=== PATIENT | female | born 1975 | race Hispanic/Latino ===

== ENCOUNTER 2020-07-09 09:02 | Day surgery (SDC) | payer OTHER ==
[2020-07-08 11:19] LABS: BASOPHILS % (AUTO) 0.4 % (0.0-5.0); EOSINOPHILS % (AUTO) 2.1 % (0.0-8.0); HEMATOCRIT 35.8 % (36-48); LYMPHOCYTES % (AUTO) 46.5 % (21.0-51.0); MEAN CORPUSCULAR HEMOGLOBIN 30.4 pg (27.0-33.0); MEAN CORPUSCULAR HGB CONC 34.4 g/dL (32.0-36.0); MEAN CORPUSCULAR VOLUME 88.4 fL (79-99); MONOCYTES % (AUTO) 7.9 % (3.0-13.0); NEUTROPHILS % (AUTO) 42.9 % (40.0-77.0); PLATELET COUNT (AUTO) 199 K/uL (130-400); RED BLOOD CELL COUNT(AUTO) 4.05 MIL/uL (4.00-5.50); RED CELL DISTRIBUTION WIDTH 11.4 % (11.0-15.5); WHITE BLOOD COUNT (AUTO) 4.7 K/uL (4.8-10.8)
[2020-07-08 11:35] LABS: ALBUMIN 3.8 g/dL (3.5-5.0); BILIRUBIN,TOTAL 0.4 mg/dL (0.2-1.0); CREATININE 0.6 mg/dL (0.5-1.5); POTASSIUM 3.4 mmol/L (3.5-5.1); TOTAL PROTEIN, SERUM 8.5 g/dL (6.0-8.3)
[2020-07-09] VITALS (10 sets, daily range): BP systolic 102–128; BP diastolic 52–79
[~2020-07-09] VITALS: Ht 167.6 cm; Wt 96.2 kg
[2020-07-09] MEDS: CEFAZOLIN SODIUM 1 GM VIAL IVP SCH ×2 (06:00→10:50)
[~2020-07-09 09:02] MED LIST: ACET-2743 PO; LORA10TA7 PO; PSEU-225 PO; SODIUM CHLORIDE 0.9% 1000ML 1,000 ML IV SCH
[2020-07-09] MEDS ORDERED: LACTATED RINGERS 1000ML 1,000 ML IV ONE (09:51)
[2020-07-09] MEDS ORDERED: ROPIVACAINE 0.5% 5MG/ML 30ML IJ ONE (10:27)
[2020-07-09] MEDS ORDERED: MIDAZOLAM HCL 1 MG/ML 5ML VIAL ONE (10:28)
[2020-07-09] MEDS ORDERED: PROPOFOL 10 MG/ML 20ML VIAL IV ONE (10:51)
[2020-07-09] MEDS ORDERED: FENTANYL CITRATE PF 50 MCG/1 ML 2ML VIAL ONE (10:57)
[2020-07-09] MEDS ORDERED: LIDOCAINE HCL 1% MDV 50ML VIAL ONE (11:09)
== END 2020-07-09 12:45 | disposition home or self-care (01) ==
LOC: DAH 09:02
PROVIDERS: ATTEND Orthopaedic Surgery
DX: M67.472 Ganglion, left ankle and foot (principal); E66.9 Obesity, unspecified; Z20.828 Contact with and (suspected) exposure to other viral communicable diseases; Z68.33 Body mass index [BMI] 33.0-33.9, adult
CPT/HCPCS: 28090; 36415; 64445; 76942; 80053; 85025; 87070; 87076; 87426; A4215; A4221; A4222; A4223; A4452; A4649; A4663; A4930; A6223; A6260; J0690; J2250; J2704; J2795; J3010; J3490; J7120 ×2; U0003

== ENCOUNTER → 2022-05-17 | Outpatient (CLI) | payer OTHER ==
[~2022-05-17] MED LIST changes: -SODIUM CHLORIDE 0.9% 1000ML 1,000 ML IV SCH
== END | disposition home or self-care (01) ==
LOC: RAH 09:09
PROVIDERS: ATTEND Obstetrics & Gynecology
DX: N63.11 Unspecified lump in the right breast, upper outer quadrant (principal); R92.8 Other abnormal and inconclusive findings on diagnostic imaging of breast
CPT/HCPCS: 76641; 77065

== ENCOUNTER 2024-05-21 13:12 | Emergency (ER) | payer SELFPAY ==
[~2024-05-21] VITALS: Ht 167.6 cm; Wt 90.3 kg
[2024-05-21 14:09] LABS: BASOPHILS # (AUTO) 0.01 K/uL (0.00-0.20); BASOPHILS % (AUTO) 0.1 % (0.0-5.0); EOSINOPHILS # (AUTO) 0.06 K/uL (0.00-0.70); EOSINOPHILS % (AUTO) 0.8 % (0.0-8.0); HEMATOCRIT 37.3 % (36-48); IMMATURE GRANULOCYTE ABSOLUTE 0.03 K/uL (0-1); LYMPHOCYTES # (AUTO) 1.3 K/uL (1.0-4.8); LYMPHOCYTES % (AUTO) 16.3 % (21.0-51.0); MEAN CORPUSCULAR HEMOGLOBIN 32.4 pg (27.0-33.0); MEAN CORPUSCULAR HGB CONC 34.9 g/dL (32.0-36.0); MONOCYTES # (AUTO) 0.6 K/uL (0.1-1.0); NEUTROPHILS # (AUTO) 5.7 K/uL (1.8-7.7); NEUTROPHILS % (AUTO) 74.4 % (40.0-77.0); PLATELET COUNT (AUTO) 282 K/uL (130-400); RED BLOOD CELL COUNT(AUTO) 4.01 MIL/uL (4.00-5.50); RED CELL DISTRIBUTION WIDTH 11.6 % (11.0-15.5); WHITE BLOOD COUNT (AUTO) 7.7 K/uL (4.8-10.8)
--- NOTE | 2024-05-21 14:22 | HMCIMG ---
CHEST 2VWS HISTORY: Shortness of breath COMPARISON: None FINDINGS: Frontal and lateral projections of the chest were obtained. Mild bilateral pulmonary infiltrates are seen in the left more than right. The heart is not enlarged. No evidence of aortic calcification is seen. Degenerative changes are seen of the thoracolumbar spine. IMPRESSION: 1. Mild bilateral pulmonary infiltrates with left more than right.
[2024-05-21 14:24] LABS: CREATININE 0.6 mg/dL (0.5-1.0); POTASSIUM 3.3 mmol/L (3.5-5.1)
--- NOTE | 2024-05-21 14:25 | ERN ---
ED Note History of Present Illness Stated Complaint: FEVER Chief Complaint: Shortness of Breath Dictation: This is a case of 49-year-old female with no significant past medical history who presented to the ER with the complaints of fever, shortness of breath, productive cough, mild headache since last week. Patient states that she visited urgent care last week with similar complaints and was diagnosed with bronchitis. She was discharged on methylprednisolone and albuterol nebulizer, which she has been using more frequently. Although they provide temporary relief, her symptoms have returned to baseline. She now reports additional complaints of dizziness, chest pain during inspiration, nausea. She also notes a history of COVID-19 in December. She denies cold, sore throat, difficulty in swallowing, palpitations, abdominal pain, vomiting, burning sensation when urination, constipation/diarrhea. Allergies: Coded Allergies: No Known Drug Allergies (Verified Allergy, Unknown, 02/23/17) Home Meds Active Scripts Albuterol Sulfate (Ventolin Hfa) 90 Mcg Hfa.aer.ad, 2 PUFF IH Q4HPRN PRN for WHEEZING for 30 Days, #18 GM 0 Refills Prov:NERISSA SWANSON MD 05/21/24 Famotidine (Pepcid) 20 Mg Tablet, 1 TAB PO BID for 8 Days, #16 TAB 0 Refills Prov:NERISSA SWANSON MD 05/21/24 Azithromycin (Azithromycin) 250 Mg Tablet, 1 TAB PO DAILY for 4 Days, #4 TAB 0 Refills 2 the first day followed by 1 for days 2-5 Prov:NERISSA SWANSON MD 05/21/24 Amoxicillin/Potassium Clav (Amox Tr-K Clv 500-125 mg Tab) 500 Mg-125 Mg Tablet, 1 TAB PO TID for 7 Days, #21 TAB 0 Refills Prov:NERISSA SWANSON MD 05/21/24 Reported Medications Pseudoephedrine HCl (Pseudoephedrine HCl) 60 Mg Tablet, 1 TAB PO DAILY, TAB 07/08/20 Acetaminophen (Tylenol Extra Strength) 500 Mg Tablet, 1000 MG PO BID PRN for PAIN LEVEL 1 TO 5, TAB 07/08/20 Loratadine (Claritin) 10 Mg Tab, 10 MG PO DAILY, TAB 07/08/20 Past Medical History Past Medical History: No Pertinent History Surgical History: Appendectomy Review of System Dictation CONSTITUTIONAL: Fever, chills, no weakness, no diaphoresis, no malaise. HEAD/FACE: No signs of trauma. EENT: No eye pain, no blurred vision, no tearing, no double vision, no ear pain, no ear discharge, no nose pain, no nasal congestion, no throat pain, no throat swelling, no mouth pain. RESPIRATORY: Productive cough, no orthopnea, SOB and wheezing, no stridor CARDIOVASCULAR: No chest pain, no edema, no palpitations, no syncope. GASTROINTESTINAL/ABDOMINAL: No abdominal pain, no constipation, no diarrhea, nausea, no vomiting. GENITOURINARY: No abnormal discharge, no dysuria, no frequent urination, no hematuria. No complaints of pain in the genitals. MUSCULOSKELETAL: No back pain, no gout, no joint pain, no joint swelling, no muscle pain, no muscle stiffness, no neck pain. INTEGUMENTARY: No change in color, no change in hair/nails, no dryness, no lesion, no lumps, no rash. NEUROLOGICAL/PSYCH: No anxiety, not depressed, no emotional problem, no headache, no numbness, no pre-existing deficit, no history of seizures, no tremors, no weakness. HEMATOLOGIC/LYMPHATIC: Not anemic, no history of blood clots, no apparent bleeding, no bruising, glands not swollen. All Systems Negative, Except as Noted. Initial Vital Sign VS Vital Signs Date Time Temp Pulse Resp B/P (MAP) Pulse Ox O2 Delivery O2 Flow Rate FiO2 05/21/24 13:37 99.7 105 22 133/85 90 Room Air 0 05/21/24 14:35 21 Physical Exam Dictation Physical Exam Dictation VITAL SIGNS: Reviewed. GENERAL APPEARANCE: Alert, oriented x3, no acute distress, obese. HEAD AND FACE: Non-traumatic. EYES: PERRL, pink conjunctivas, eyelid no trauma, anterior chamber clear. NOSE: No discharge, no bleeding. OROPHARYNX: Mouth normal, teeth no caries, tongue pink. Pharynx clear, no erythema. Tonsils no exudates, no abscesses noted. Mucous membrane moist. NECK: Supple, non-tender, no thyromegaly, no masses, no JVD, no bruits. BREAST: Deferred. CHEST: Mild chest wall tenderness, no crepitus, no paradoxical movement, no retractions. LUNGS: Bilateral crackles, well-ventilated, symmetric, no rales, wheezing, no rhonchi, no stridor HEART: Regular rate, regular rhythm, no murmur, no gallops. VASCULAR: No peripheral edema. ABDOMEN: Soft, positive bowel sounds, nondistended, no guarding, nontender, no rebound, no Lamb's sign, no hernias. RECTAL: Deferred. GENITAL: Deferred. NEUROLOGICAL: Normal speech, gross motor function intact, gross sensory function intact. MUSCULOSKELETAL: Neck nontender, full range of motion, back nontender, full range of motion. EXTREMITIES: Nontender, full range of motion. SKIN: Color pink, dry, no turgor, no rash, no lacerations, no abrasions, no contusions. LYMPHATICS: Deferred. Results (Laboratory/Radiology) Laboratory/Radiology Laboratory Tests Test 05/21/24 13:36 05/21/24 14:01 Influenza Type A Antigen Negative For Type A Influenza Type B Antigen Negative For Type B SARS-CoV-2 Antigen (Rapid) PRESUMPTIVE NEGATIVE White Blood Count 7.7 K/uL (4.8-10.8) Red Blood Count 4.01 MIL/uL (4.00-5.50) Hemoglobin 13.0 g/dL (12.0-16.0) Hematocrit 37.3 % (36-48) Mean Corpuscular Volume 93.0 fL (79-99) Mean Corpuscular Hemoglobin 32.4 pg (27.0-33.0) Mean Corpuscular Hemoglobin Concent 34.9 g/dL (32.0-36.0) Red Cell Distribution Width 11.6 % (11.0-15.5) Platelet Count 282 K/uL (130-400) Mean Platelet Volume 9.1 fL (7.5-10.5) Immature Granulocyte % (Auto) 0.4 % (0-1) Neutrophils (%) (Auto) 74.4 % (40.0-77.0) Lymphocytes (%) (Auto) 16.3 % (21.0-51.0) L Monocytes (%) (Auto) 8.0 % (3.0-13.0) Eosinophils (%) (Auto) 0.8 % (0.0-8.0) Basophils (%) (Auto) 0.1 % (0.0-5.0) Neutrophils # (Auto) 5.7 K/uL (1.8-7.7) Lymphocytes # (Auto) 1.3 K/uL (1.0-4.8) Monocytes # (Auto) 0.6 K/uL (0.1-1.0) Eosinophils # (Auto) 0.06 K/uL (0.00-0.70) Basophils # (Auto) 0.01 K/uL (0.00-0.20) Absolute Immature Granulocyte (auto 0.03 K/uL (0-1) Nucleated Red Blood Cells 0.0 % (0.0-0.19) D-Dimer Quantitative (PE/DVT) 529 ng/mL (0-500) *H Sodium Level 137 mmol/L (136-145) Potassium Level 3.3 mmol/L (3.5-5.1) L Chloride Level 99 mmol/L (101-111) L Carbon Dioxide Level 33 mmol/L (21-32) H Blood Urea Nitrogen 8 mg/dL (7-18) Creatinine 0.6 mg/dL (0.5-1.0) Glomerular Filtration Rate Calc 109 mL/min (>90) Random Glucose 124 mg/dL (70-105) H Total Calcium 8.9 mg/dL (8.5-10.1) Troponin I High Sensitivity 15 ng/L (4-50) EKG Comment: PROCEDURE: EKG - 12 LEAD EKG TRACING- TECHNICAL [facility] Test Date: 2024-05-21 Test Time: 14:45:26 Pat Name: RIO OSORIO Department: [facility] Room: 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 Mild bilateral pulmonary infiltrates are seen in the left more than right. The heart is not enlarged. No evidence of aortic calcification is seen. Degenerative changes are seen of the thoracolumbar spine. IMPRESSION: 1. Mild bilateral pulmonary infiltrates with left more than right. CT Scan Comment: ORDERING PHYSICIAN: JACOB PRUITT MD PROCEDURE: CHES PE - CT CHEST PE PROTOCOL WWO CONT CT CHEST PE PROTOCOL WWO CONT HISTORY: Elevated d-dimer COMPARISON: 02/22/2017 TECHNIQUE: CT angiography of the chest was performed. The study was performed using angiographic technique with maximum intensity projection reconstruction images. Patient was given 75 cc of Omnipaque through intravenous route. FINDINGS: No CT evidence of filling defect is seen to suggest pulmonary embolus. No CT evidence of aortic dissection is seen. There are bilateral pulmonary infiltrates predominantly involving left lung. Fatty changes of the liver are noted. Liver is enlarged measuring 20 cm. Postcholecystectomy changes are seen. No CT evidence of pleural effusion or pericardial effusion is seen. The heart is enlarged. No evidence of adrenal mass is seen. Degenerative changes of the spine are noted. IMPRESSION: 1. No CT evidence of acute pulmonary embolus is seen. Bilateral pulmonary infiltrates predominantly involving the left lungs. ED Course ED Course Orders Procedure Category Date Status Time Vital Signs Per CPOE 05/21/24 Transmitted Routine 13:34 Saline Lock Iv CPOE 05/21/24 Transmitted 13:34 Cbc With Differential LAB 05/21/24 Complete 13:34 Basic Metabolic Panel LAB 05/21/24 Complete 13:34 Covid19 (Sars Antigen LAB 05/21/24 Complete Rapid) 13:34 Influenza Type A & B, LAB 05/21/24 Complete Rapid 13:34 Chest 2vws RAD 05/21/24 Resulted 13:34 Troponin I High LAB 05/21/24 Complete Sensitivity 13:46 Ceftriaxone 1g Vial PHA 05/21/24 Complete (Rocephine 1g Inj) 14:30 Ipratropium/Albuterol PHA 05/21/24 Complete Neb (Duoneb) 14:30 D-Dimer LAB 05/21/24 Complete 14:06 Methylprednisolone PHA 05/21/24 Complete Succ 125mg (Solu-Medr 14:30 12 Lead Ekg Tracing- EKG 05/21/24 Complete Technical 14:25 Potassium Bicarb/Cit PHA 05/21/24 Complete Ac 25meq (K-Lyte Ta 15:00 Ct Chest Pe Protocol CT 05/21/24 Resulted Wwo Cont 15:48 Azithromycin PHA 05/21/24 Complete (Zithromax) 16:00 Iohexol (Omnipaque) PHA 05/21/24 Complete 16:02 Current Medications Medications (Trade) Dose Ordered Sig/Julita Route PRN Reason Start Time Stop Time Status Last Admin Dose Admin Albuterol (DUOneb) 1 UDVIAL ONCE ONCE IH 05/21/24 14:30 05/21/24 14:31 DC 05/21/24 14:31 Azithromycin (Zithromax) 500 mg ONCE ONCE PO 05/21/24 16:00 05/21/24 16:01 DC 05/21/24 16:43 Ceftriaxone Sodium (ROCEphine 1G INJ) 1 gm ONCE ONCE IVPB 05/21/24 14:30 05/21/24 14:31 DC 05/21/24 14:40 Iohexol (Omnipaque) 75 ml STK-MED ONCE IV 05/21/24 16:02 05/21/24 16:02 DC Methylprednisolone Sodium Succinate (Solu-medROL 125MG) 125 mg ONCE ONCE IVP 05/21/24 14:30 05/21/24 14:31 DC 05/21/24 14:40 Potassium Bicarbonate (K-Lyte Tablet Eff 25 Meq Tablet.eff) 25 meq ONCE ONCE PO 05/21/24 15:00 05/21/24 15:01 DC 05/21/24 15:30 Vital Signs Date Time Temp Pulse Resp B/P (MAP) Pulse Ox O2 Delivery O2 Flow Rate FiO2 05/21/24 16:30 98.1 106 20 122/68 94 Room Air* 0 21 05/21/24 15:30 99.0 95 20 116/63 94 Room Air* 0 21 05/21/24 14:35 95 20 118/75 100 Room Air* 0 21 05/21/24 14:31 104 18 05/21/24 13:37 99.7 105 22 133/85 90 Room Air 0 Medical Decision Making MDM MDM Potential differential diagnoses include: Bronchitis Influenza COVID Pneumonia Assessment: We will order CBC to rule any anemia, infections and to evaluate the overall health of the patient. CMP was ordered in order to assess various electrolytes, kidney function, liver function ,protein levels and blood glucose levels, chest x-ray, EKG. We will order Solu-Medrol 125 mg IV, DuoNeb for shortness of breath. I will re-evaluate the patient after treatment and diagnostic exams have returned to determine whether they require further testing, can be safely discharged home, or need admission for further treatment and evaluation. Given the social determinants of health affecting care, including literacy, access to medical care, prescription drug management, and [id number] drugs, I will ensure that treatment plans are tailored accordingly. Revaluation : Patient is alert awake and oriented. Hemodynamically stable., Her shortness of breath has significantly improved. Patient is given Rocephin 1 g IV and azithromycin 500 mg p.o. for pneumonia. Labs potassium 3.3, chloride 99, CO2 of 33, D-dimer elevated at 529. Chest x-ray resulted in mild bilateral pulmonary infiltrates more prominent on the left side. EKG resulted in sinus tachycardia. CT CHEST CP PROTOCOL RESULTED IN NO ACUTE FINDINGS. Disposition: Patient is being discharged home with oral prescription of amoxicillin 625 mg t.i.d. for 7 days, azithromycin 250 mg p.o. daily for 4 days, Pepcid 20 mg b.i.d. p.o. for 7 days, albuterol inhaler p.r.n. for wheezing Advised to Follow up with PCP within 2-3 days Complete the antibiotic course as directed Drink plenty of fluids especially water Practice deep breathing exercises to expand your lungs and improve oxygen flow Monitor for symptoms like increased shortness of breath or wheezing, high fever, persistent chest pain, coughing up blood, confusion and extreme fatigue and seek immediate medical attention in such scenario DX & DISP Disposition: Discharge Departure Impression: Primary Impression: Pneumonia Critical Time: 30 minutes Condition: Stable Scripts Albuterol Sulfate (Ventolin Hfa) 90 Mcg Hfa.aer.ad 2 PUFF IH Q4HPRN PRN for WHEEZING for 30 Days, #18 GM 0 Refills Prov: NERISSA SWANSON MD 05/21/24 Famotidine (Pepcid) 20 Mg Tablet 1 TAB PO BID for 8 Days, #16 TAB 0 Refills Prov: NERISSA SWANSON MD 05/21/24 Azithromycin (Azithromycin) 250 Mg Tablet 1 TAB PO DAILY for 4 Days, #4 TAB 0 Refills 2 the first day followed by 1 for days 2-5 Prov: NERISSA SWANSON MD 05/21/24 Amoxicillin/Potassium Clav (Amox Tr-K Clv 500-125 mg Tab) 500 Mg-125 Mg Tablet 1 TAB PO TID for 7 Days, #21 TAB 0 Refills Prov: NERISSA SWANSON MD 05/21/24 Referrals: JOSE ALMANZAR MD (PCP) ATTESTATION BY PHYSICIAN I have seen and examined the patient. I reviewed the documentation, medical decision making, and treatment plan as noted by the resident above. I agree with the findings and plan of care. JACOB PRUITT MD, PRIYANKA MD May 21, 2024 14:25
[2024-05-21 14:31] VITALS: PULSE 104; RESP 18
[2024-05-21] MEDS: IpraTROPium/alBUTERol SULFATE 3 ML SOLUTION IH ONE (14:31)
[2024-05-21 14:37] LABS: COVID19 (SARS ANTIGEN RAPID) PRESUMPTIVE NEGATIVE (NEGATIVE); INFLUENZA TYPE A Negative For Type A (NEGATIVE); INFLUENZA TYPE B Negative For Type B (NEGATIVE)
[2024-05-21] MEDS: Solu-medROL 125MG VIAL IVP ONE (14:40)
[2024-05-21] MEDS: cefTRIAXone 1G VIAL IVPB ONE (14:40)
--- NOTE | 2024-05-21 15:01 | EKG ---
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
[2024-05-21] MEDS ORDERED: AZIT250T9 PO (15:26)
[2024-05-21] MEDS ORDERED: AMOX1TAB15 PO (15:26)
[2024-05-21] MEDS: PoTASSium BIcarbonate/CIT AC 25 MEQ TABLET.EFF PO ONE (15:30)
[2024-05-21] MEDS ORDERED: FAMO-136 PO (15:56)
[2024-05-21] MEDS ORDERED: IOHEXOL-350 75 ML VIAL IV ONE (16:02)
--- NOTE | 2024-05-21 16:32 | HMCIMG ---
CT CHEST PE PROTOCOL WWO CONT HISTORY: Elevated d-dimer COMPARISON: 02/22/2017 TECHNIQUE: CT angiography of the chest was performed. The study was performed using angiographic technique with maximum intensity projection reconstruction images. Patient was given 75 cc of Omnipaque through intravenous route. FINDINGS: No CT evidence of filling defect is seen to suggest pulmonary embolus. No CT evidence of aortic dissection is seen. There are bilateral pulmonary infiltrates predominantly involving left lung. Fatty changes of the liver are noted. Liver is enlarged measuring 20 cm. Postcholecystectomy changes are seen. No CT evidence of pleural effusion or pericardial effusion is seen. The heart is enlarged. No evidence of adrenal mass is seen. Degenerative changes of the spine are noted. IMPRESSION: 1. No CT evidence of acute pulmonary embolus is seen. Bilateral pulmonary infiltrates predominantly involving the left lungs. CT was performed with one or more following dose reduction techniques: automated exposure control, adjustment of the mA and kv according to patient's size, or use of a iterative reconstruction technique.
[2024-05-21] MEDS: AZITHROMYCIN 250 MG TABLET PO ONE (16:43)
[2024-05-21] MEDS ORDERED: ALBU18HF7 IH (16:58)
[2024-05-21 17:20] VITALS: BP 116/64; PULSE 104; RESP 20; TEMP 97.9; O2SAT 93
== END 2024-05-21 17:20 | disposition home or self-care (01) ==
LOC: EDH 13:12
DX: J18.9 Pneumonia, unspecified organism (principal); Z90.49 Acquired absence of other specified parts of digestive tract; Z20.822 Contact with and (suspected) exposure to COVID-19
CPT/HCPCS: 99285; 96374; 71270; 71046; 96375; 87426; 84484; 80048; 85025; 85378; 87804 ×2; 36415; 93005; 94640; J2919; J0696; Q9967

== ENCOUNTER 2024-05-23 16:44 | Inpatient (IN) | payer BC ==
[~2024-05-23] VITALS: Ht 167.6 cm; Wt 112.5 kg
[~2024-05-23 16:44] MED LIST changes: +ALBU18HF7 IH; +AMOX1TAB15 PO; +AZIT250T9 PO; +FAMO-136 PO; +rocuRONium bROMide 10MG/1ML 5ML VL IV ONE
--- NOTE | 2024-05-23 17:03 | EKG ---
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1975 Requested By: SHANTEL VICTORIA Order Number: [id number] Reading MD: Beny Sebastian Measurements Intervals [place] Rate: 114 P: 47 GA: 175 QRS: -39 QRSD: 91 T: 53 QT: 319 QTc: 439 Interpretive Statements Sinus tachycardia Left ventricular hypertrophy left aqxis deviation Compared to ECG 05/21/2024 14:45:26 Left ventricular hypertrophy now present Left anterior fascicular block no longer present Incomplete right bundle-branch block no longer present Right bundle-branch block no longer present Electronically Signed On 05-27-2024 21:16:16 MARBLE COPER by Beny Sebastian Please click the below link to view image of tracing.
[2024-05-23 17:11] LABS: ABG BASE EXCESS -0.4 mmol/L (-2.0-3.0); ABG HCO3 21.5 mmol/L (21.0-28.0); ABG PCO2 28 mmHg (32-45); ABG PH 7.506 (7.350-7.450); CARBON MONOXIDE 0.8 % (0.5-1.5); DEVICE COMMENT RR MIKE; HHb 21.8; PO2, ARTERIAL BG < 45.0 mmHg (83.0-108.0); VENT MODE, BG RA (ROOM AIR)
[2024-05-23] MEDS: 0.9%NACL 1000ML 2,721 ML IV ONE (17:16)
[2024-05-23] MEDS: Solu-medROL 125MG VIAL IVP ONE (17:16)
[2024-05-23] MEDS: cefTRIAXone 1G VIAL IVPB ONE (17:25)
[2024-05-23] MEDS: IpraTROPium/alBUTERol SULFATE 3 ML SOLUTION IH ONE (17:30)
[2024-05-23 17:32] VITALS: PULSE 107; RESP 30; O2SAT 100
--- NOTE | 2024-05-23 17:33 | HMCIMG ---
PORTABLE CHEST RADIOGRAPH INDICATION: sob COMPARISON: 05/21/2024 CTA chest FINDINGS: Heart size is normal. The pulmonary vascularity and paul appear normal. Left lower lung greater than right lung base opacities in the right hemidiaphragm is elevated. No significant pleural effusion noted. No pneumothorax detected. IMPRESSION: Left lower lung pneumonia and minimal right lung base atelectasis.
--- NOTE | 2024-05-23 17:40 | ERN ---
General Chief Complaint: Shortness of Breath Stated Complaint: SOB Time Seen by MD: 16:46 Source: patient, family History of Present Illness Initial Comments PATIENT IS A 49-YEAR-OLD FEMALE COMING IN TO BE EVALUATED FOR SHORTNESS OF BREATH. PATIENT STATES THAT SHE WAS RECENTLY DIAGNOSED WITH A PNEUMONIA AND SHE HAS BEEN TAKING HER ANTIBIOTICS BUT STARTED FEELING WORSE TODAY STARTED TO COME IN TO BE EVALUATED SHE STATES THAT SHE HAS NOT BEEN ABLE TO WALK WITHOUT RUNNING OUT OF BREATH. Allergies: Coded Allergies: No Known Drug Allergies (Verified Allergy, Unknown, 02/23/17) Home Meds Active Scripts Albuterol Sulfate (Ventolin Hfa) 90 Mcg Hfa.aer.ad, 2 PUFF IH Q4HPRN PRN for WHEEZING for 30 Days, #18 GM 0 Refills Prov:NERISSA SWANSON MD 05/21/24 Famotidine (Pepcid) 20 Mg Tablet, 1 TAB PO BID for 8 Days, #16 TAB 0 Refills Prov:NERISSA SWANSON MD 05/21/24 Azithromycin (Azithromycin) 250 Mg Tablet, 1 TAB PO DAILY for 4 Days, #4 TAB 0 Refills 2 the first day followed by 1 for days 2-5 Prov:NERISSA SWANSON MD 05/21/24 Amoxicillin/Potassium Clav (Amox Tr-K Clv 500-125 mg Tab) 500 Mg-125 Mg Tablet, 1 TAB PO TID for 7 Days, #21 TAB 0 Refills Prov:NERISSA SWANSON MD 05/21/24 Reported Medications Pseudoephedrine HCl (Pseudoephedrine HCl) 60 Mg Tablet, 1 TAB PO DAILY, TAB 07/08/20 Acetaminophen (Tylenol Extra Strength) 500 Mg Tablet, 1000 MG PO BID PRN for PAIN LEVEL 1 TO 5, TAB 07/08/20 Loratadine (Claritin) 10 Mg Tab, 10 MG PO DAILY, TAB 07/08/20 Past Medical History Past Medical History: No Pertinent History Past Surgical History: Appendectomy ROS Dictation CONSTITUTIONAL: NO CHILLS, NO FEVER, NO WEAKNESS, NO DIAPHORESIS, NO MALAISE. HEAD/FACE: NO SIGNS OF TRAUMA. EENT: NO EYE PAIN, NO BLURRED VISION, NO TEARING, NO DOUBLE VISION, NO EAR PAIN, NO EAR DISCHARGE, NO NOSE PAIN, NO NASAL CONGESTION, NO THROAT PAIN, NO THROAT SWELLING, NO MOUTH PAIN. RESPIRATORY: NO COUGH, ORTHOPNEA, SOB, NO STRIDOR, NO WHEEZING. CARDIOVASCULAR: NO CHEST PAIN, NO EDEMA, NO PALPITATIONS, NO SYNCOPE. GASTROINTESTINAL/ABDOMINAL: NO ABDOMINAL PAIN, NO CONSTIPATION, NO DIARRHEA, NO NAUSEA, NO VOMITING. GENITOURINARY: NO ABNORMAL DISCHARGE, NO DYSURIA, NO FREQUENT URINATION, NO HEMATURIA. NO COMPLAINTS OF PAIN IN THE GENITALS. MUSCULOSKELETAL: NO BACK PAIN, NO GOUT, NO JOINT PAIN, NO JOINT SWELLING, NO MUSCLE PAIN, NO MUSCLE STIFFNESS, NO NECK PAIN. INTEGUMENTARY: NO CHANGE IN COLOR, NO CHANGE IN HAIR/NAILS, NO DRYNESS, NO LESION, NO LUMPS, NO RASH. NEUROLOGICAL/PSYCH: NO ANXIETY, NOT DEPRESSED, NO EMOTIONAL PROBLEM, NO HEADACHE, NO NUMBNESS, NO PRE-EXISTING DEFICIT, NO HISTORY OF SEIZURES, NO TREMORS, NO WEAKNESS. HEMATOLOGIC/LYMPHATIC: NOT ANEMIC, NO HISTORY OF BLOOD CLOTS, NO APPARENT BLEEDING, NO BRUISING, GLANDS NOT SWOLLEN. ALL SYSTEMS NEGATIVE, EXCEPT NOTED. Physical Exam Physical Exam Dictation VITAL SIGNS: REVIEWED. GENERAL APPEARANCE: ALERT, ORIENTED X3, NO ACUTE DISTRESS, OBESE. HEAD AND FACE: NON-TRAUMATIC. EYES: PERRL, PINK CONJUNCTIVAS, EYELID NO TRAUMA, ANTERIOR CHAMBER CLEAR. EARS: PINNAS INTACT AND NO SIGNS OF TRAUMA OR ERYTHEMA. EAR CANALS CLEAR AND NO DISCHARGE. TMS NO ERYTHEMA. NOSE: NO DISCHARGE, NO BLEEDING. OROPHARYNX: MOUTH NORMAL, TEETH NO CARIES, TONGUE PINK. PHARYNX CLEAR, NO ERYTHEMA. TONSILS NO EXUDATES, NO ABSCESSES NOTED. MUCOUS MEMBRANE MOIST. NECK: SUPPLE, NON-TENDER, NO THYROMEGALY, NO MASSES, NO JVD, NO BRUITS. BREAST: DEFERRED. CHEST: NO TENDERNESS, NO CREPITUS, NO PARADOXICAL MOVEMENT, RETRACTIONS. LUNGS: CLEAR, WELL-VENTILATED, SYMMETRIC, NO RALES, NO WHEEZING, NO RHONCHI, NO STRIDOR, GOOD BREATH SOUNDS BILATERALLY. HEART: REGULAR RATE, REGULAR RHYTHM, NO MURMUR, NO GALLOPS. VASCULAR: NO PERIPHERAL EDEMA. ABDOMEN: SOFT, POSITIVE BOWEL SOUNDS, NONDISTENDED, NO GUARDING, NONTENDER, NO REBOUND, NO MASSES NO HEPATOMEGALY, NO SPLENOMEGALY, NO IRVING'S SIGN, NO HERNIAS. RECTAL: DEFERRED. GENITAL: DEFERRED. NEUROLOGICAL: NORMAL SPEECH, GROSS MOTOR FUNCTION INTACT, GROSS SENSORY FUNCTION INTACT. MUSCULOSKELETAL: NECK NONTENDER, FULL RANGE OF MOTION, BACK NONTENDER, FULL RANGE OF MOTION. EXTREMITIES: NONTENDER, FULL RANGE OF MOTION. SKIN: COLOR PINK, DRY, NO TURGOR, NO RASH, NO LACERATIONS, NO ABRASIONS, NO CONTUSIONS. LYMPHATICS: DEFERRED. Results Laboratory and Microbiology Lab and Micro Result Laboratory Tests Test 05/23/24 17:08 05/23/24 17:09 White Blood Count 11.2 K/uL (4.8-10.8) H Red Blood Count 4.01 MIL/uL (4.00-5.50) Hemoglobin 13.1 g/dL (12.0-16.0) Hematocrit 37.3 % (36-48) Mean Corpuscular Volume 93.0 fL (79-99) Mean Corpuscular Hemoglobin 32.7 pg (27.0-33.0) Mean Corpuscular Hemoglobin Concent 35.1 g/dL (32.0-36.0) Red Cell Distribution Width 11.3 % (11.0-15.5) Platelet Count 313 K/uL (130-400) Mean Platelet Volume 9.4 fL (7.5-10.5) Immature Granulocyte % (Auto) 0.3 % (0-1) Neutrophils (%) (Auto) 81.1 % (40.0-77.0) H Lymphocytes (%) (Auto) 11.5 % (21.0-51.0) L Monocytes (%) (Auto) 6.9 % (3.0-13.0) Eosinophils (%) (Auto) 0.1 % (0.0-8.0) Basophils (%) (Auto) 0.1 % (0.0-5.0) Neutrophils # (Auto) 9.1 K/uL (1.8-7.7) H Lymphocytes # (Auto) 1.3 K/uL (1.0-4.8) Monocytes # (Auto) 0.8 K/uL (0.1-1.0) Eosinophils # (Auto) 0.01 K/uL (0.00-0.70) Basophils # (Auto) 0.01 K/uL (0.00-0.20) Absolute Immature Granulocyte (auto 0.03 K/uL (0-1) Nucleated Red Blood Cells 0.0 % (0.0-0.19) Sodium Level 130 mmol/L (136-145) L Potassium Level 3.5 mmol/L (3.5-5.1) Chloride Level 92 mmol/L (101-111) L Carbon Dioxide Level 28 mmol/L (21-32) Blood Urea Nitrogen 12 mg/dL (7-18) Creatinine 0.6 mg/dL (0.5-1.0) Glomerular Filtration Rate Calc 109 mL/min (>90) Random Glucose 119 mg/dL (70-105) H Lactic Acid Level 1.8 mmol/L (0.8-2.5) Total Calcium 8.8 mg/dL (8.5-10.1) Total Bilirubin 0.7 mg/dL (0.2-1.0) Direct Bilirubin 0.2 mg/dL (0.0-0.3) Aspartate Amino Transf (AST/SGOT) 49 U/L (10-37) H Alanine Aminotransferase (ALT/SGPT) 49 U/L (12-78) Alkaline Phosphatase 73 U/L (50-136) Total Creatine Kinase 25 U/L (21-232) Troponin I High Sensitivity 13 ng/L (4-50) B-Type Natriuretic Peptide 34 pg/mL (0-100) Total Protein 8.1 g/dL (6.0-8.3) Albumin 2.7 g/dL (3.5-5.0) L Blood Gas Specimen Type Arterial Arterial Blood pH 7.506 (7.350-7.450) Arterial Blood Partial Pressure CO2 28 mmHg (32-45) L Arterial Blood Partial Pressure O2 < 45.0 mmHg (83.0-108.0) Arterial Blood HCO3 21.5 mmol/L (21.0-28.0) Arterial Blood Oxygen Saturation 78.0 % (94.0-98.0) L Arterial Blood Base Excess -0.4 mmol/L (-2.0-3.0) Hemoglobin (Blood Gas) 12.9 g/dL (12.0-16.0) Sodium (Blood Gas) 129 MMOL/L (136-145) L Bedside Potassium (Blood Gas) 3.6 MMOL/L (3.4-4.5) Bedside Chloride (Blood Gas) 95 MMOL/L (98-107) L Bedside Glucose (Blood Gas) 113 MG/DL (65-95) H Bedside Ionized Calcium (Blood Gas) 1.14 MMOL/L (1.15-1.33) L Bedside Lactic Acid (Blood Gas) 0.83 MMOL/L (0.36-0.75) H Blood Gas Temperature 37.0 CELSIUS (35.5-37.0) Blood Gas Vent Mode RA (ROOM AIR) FiO2 21.0 % Blood Gas Specimen Comment RR ZURI Labs Reviewed?: Yes MDM MDM: DIFFERENTIAL DIAGNOSIS: RESPIRATORY DISTRESS, BILATERAL PNEUMONIA, FAILED OUTPATIENT THERAPY RATIONALE: TESTS CONSIDERED AND ORDERED SECONDARY TO SHARED DECISION MAKING INCLUDE: LABS, ECG AND RADIOLOGY PREVIOUS OUTSIDE RECORDS REVIEWED: OLD ER VISITS. RISK OF COMPLICATION AND/OR MORBIDITY OR MORTALITY OF PATIENT MANAGEMENT: NONE MEDICATIONS-PER MEDICATION RECONCILIATION NEED FOR HOSPITALIZATION: PATIENT DOES MEET CRITERIA FOR HOSPITALIZATION. NEED FOR EMERGENCY MAJOR/MINOR SURGERY: NO THERE ARE NO SOCIAL CONCERNS WITH THIS PATIENT. PRESCRIPTION DRUG MANAGEMENT PRESCRIPTIONS WILL INCLUDE SYMPTOMATIC CARE PATIENT'S PRIOR EXTERNAL MEDICAL RECORDS FROM OTHER ER VISITS WERE REVIEWED BY ME INDICATED. PRIOR TESTING AND RESULTS FROM PREVIOUS VISITS WERE REVIEWED. PRIOR TESTS WERE TAKEN INTO ACCOUNT WITH MEDICAL DECISION MAKING AND RESOURCE UTILIZATION, INDEPENDENT HISTORIAN/HISTORIANS WERE USED TO OBTAIN COMPLETE MEDICAL HISTORY. I INDEPENDENTLY INTERPRETED THE TEST THAT WERE PERFORMED, RESULTS WERE REVIEWED BY ME AND CONSIDERED FINDINGS ON RADIOLOGY IF ORDERED. MEDICAL MANAGEMENT AND EXAMINATION INTERPRETATION DISCUSSIONS WERE HAD BY ME WITH OTHER QUALIFIED HEALTHCARE PROFESSIONALS INDICATED FOR THE PATIENT'S CARE. PATIENT WILL BE ADMITTED UNDER THE CARE OF HOSPITALIST GROUP FOR ONGOING MANAGEMENT OF BILATERAL LUNG PNEUMONIA WITH RESPIRATORY DISTRESS. ED Course Orders Procedure Category Date Status Time Arterial Blood Gas + RT 05/23/24 Transmitted 16:51 Cbc With Differential LAB 05/23/24 Complete 16:51 12 Lead Ekg Tracing- EKG 05/23/24 Complete Technical 16:51 Troponin I High LAB 05/23/24 Complete Sensitivity 17:05 B-Type Natriuretic LAB 05/23/24 Complete Peptide 17:05 Chest 1vw RAD 05/23/24 Resulted 17:05 12 Lead Ekg Tracing- EKG 05/23/24 Logged Technical 17:05 Covid Rna Naat LAB 05/23/24 Logged 17:05 Influenza Type A & B, LAB 05/23/24 Logged Rapid 17:05 Blood Cult DENNIS 05/23/24 In Process 17:07 Urinalysis Profile LAB 05/23/24 Logged 17:07 Culture Urine DENNIS 05/23/24 Logged 17:07 0.9%Nacl 1000ml (Ns PHA 05/23/24 In Process 1000ml) 17:30 Creatine Kinase, Total LAB 05/23/24 Complete 17:07 Lactic Acid LAB 05/23/24 Complete 17:07 Basic Metabolic Panel LAB 05/23/24 Complete 17:07 Ipratropium/Albuterol PHA 05/23/24 Complete Neb (Duoneb) 17:30 Methylprednisolone PHA 05/23/24 Complete Succ 125mg (Solu-Medr 17:30 Arterial Blood Gas LAB 05/23/24 Complete Arterial + 17:09 Ceftriaxone 1g Vial PHA 05/23/24 Complete (Rocephine 1g Inj) 17:30 Azithromycin 500mg+Ns PHA 05/23/24 Complete 250ml (Azithromyci 17:17 Arterial Blood Gas RT 05/23/24 Transmitted 18:30 Hepatic Function Panel LAB 05/23/24 Complete 17:08 Current Medications Medications (Trade) Dose Ordered Sig/Julita Route PRN Reason Start Time Stop Time Status Last Admin Dose Admin Albuterol (DUOneb) 2 udvial ONCE ONCE IH 05/23/24 17:30 05/23/24 17:31 DC Azithromycin 250 ml @ 250 mls/hr Q24H STAT IVPB 05/23/24 17:17 05/23/24 18:16 DC 05/23/24 17:45 Ceftriaxone Sodium (ROCEphine 1G INJ) 1 gm ONCE ONCE IVPB 05/23/24 17:30 05/23/24 17:31 DC 05/23/24 17:25 Methylprednisolone Sodium Succinate (Solu-medROL 125MG) 125 mg ONCE ONCE IVP 05/23/24 17:30 05/23/24 17:31 DC 05/23/24 17:16 Sodium Chloride 2,721 ml @ 907 mls/hr ONCE ONCE IV 05/23/24 17:30 05/23/24 20:29 05/23/24 17:16 Vital Signs Date Time Temp Pulse Resp B/P (MAP) Pulse Ox O2 Delivery O2 Flow Rate FiO2 05/23/24 17:32 107 30 Non Rebreather/Partial 15.0 100 05/23/24 17:27 104 40 117/79 100 Non-Rebreather+ 15 40 05/23/24 17:07 87 39 119/69 87 Room Air* 0 21 05/23/24 16:46 99.9 115 18 135/80 70 Room Air Critical Care Note Comments CRITICAL CARE PROCEDURE NOTE AUTHORIZED AND PERFORMED BY: TOTAL CRITICAL CARE TIME: APPROXIMATELY 36 MINUTES DUE TO A HIGH PROBABILITY OF CLINICALLY SIGNIFICANT, LIFE THREATENING DETERIORATION, THE PATIENT REQUIRED MY HIGHEST LEVEL OF PREPAREDNESS TO INTERVENE EMERGENTLY AND I PERSONALLY SPENT THIS CRITICAL CARE TIME DIRECTLY AND PERSONALLY MANAGING THE PATIENT. THIS CRITICAL CARE TIME INCLUDED OBTAINING A HISTORY; EXAMINING THE PATIENT; PULSE OXIMETRY; ORDERING AND REVIEW OF STUDIES; ARRANGING URGENT TREATMENT WITH DEVELOPMENT OF A MANAGEMENT PLAN; EVALUATION OF PATIENT'S RESPONSE TO TREATMENT; FREQUENT REASSESSMENT; AND, DISCUSSIONS WITH OTHER PROVIDERS. THIS CRITICAL CARE TIME WAS PERFORMED TO ASSESS AND MANAGE THE HIGH PROBABILITY OF IMMINENT, LIFE-THREATENING DETERIORATION THAT COULD RESULT IN MULTI-ORGAN FAILURE. IT WAS EXCLUSIVE OF SEPARATELY BILLABLE PROCEDURES AND TREATING OTHER PATIENTS AND TEACHING TIME. PLEASE SEE MDM SECTION AND THE REST OF THE NOTE FOR FURTHER INFORMATION ON PATIENT ASSESSMENT AND TREATMENT. DX & DISP Disposition: Inpatient Decision to Admit Time: 18:24 Departure Impression: Primary Impression: Respiratory distress Additional Impression: Pneumonia of both lungs Condition: Stable Referrals: JOSE ALMANZAR MD (PCP) SHANTEL VICTORIA MD May 23, 2024 17:40
[2024-05-23 17:44] LABS: BASOPHILS # (AUTO) 0.01 K/uL (0.00-0.20); BASOPHILS % (AUTO) 0.1 % (0.0-5.0); EOSINOPHILS # (AUTO) 0.01 K/uL (0.00-0.70); EOSINOPHILS % (AUTO) 0.1 % (0.0-8.0); HEMATOCRIT 37.3 % (36-48); IMMATURE GRANULOCYTE ABSOLUTE 0.03 K/uL (0-1); LYMPHOCYTES # (AUTO) 1.3 K/uL (1.0-4.8); LYMPHOCYTES % (AUTO) 11.5 % (21.0-51.0); MEAN CORPUSCULAR HEMOGLOBIN 32.7 pg (27.0-33.0); MEAN CORPUSCULAR HGB CONC 35.1 g/dL (32.0-36.0); MONOCYTES # (AUTO) 0.8 K/uL (0.1-1.0); MONOCYTES % (AUTO) 6.9 % (3.0-13.0); NEUTROPHILS # (AUTO) 9.1 K/uL (1.8-7.7); NEUTROPHILS % (AUTO) 81.1 % (40.0-77.0); PLATELET COUNT (AUTO) 313 K/uL (130-400); RED BLOOD CELL COUNT(AUTO) 4.01 MIL/uL (4.00-5.50); RED CELL DISTRIBUTION WIDTH 11.3 % (11.0-15.5); WHITE BLOOD COUNT (AUTO) 11.2 K/uL (4.8-10.8)
[2024-05-23] MEDS: AZITHROMYCIN 500MG+NS 250ML 250 ML IVPB STA (17:45)
[2024-05-23 17:52] LABS: CREATININE 0.6 mg/dL (0.5-1.0); POTASSIUM 3.5 mmol/L (3.5-5.1)
[2024-05-23 18:03] LABS: ALBUMIN 2.7 g/dL (3.5-5.0); BILIRUBIN,DIRECT 0.2 mg/dL (0.0-0.3); BILIRUBIN,TOTAL 0.7 mg/dL (0.2-1.0); TOTAL PROTEIN, SERUM 8.1 g/dL (6.0-8.3)
[2024-05-23 18:58] LABS: SARS-CoV-2, RNA, NAAT NEGATIVE SARS CoV-2 (NEGATIVE)
[2024-05-23 19:04] LABS: INFLUENZA TYPE A Negative For Type A (NEGATIVE); INFLUENZA TYPE B Negative For Type B (NEGATIVE)
[2024-05-23 19:05] LABS: APPEARANCE,URINE CLEAR (CLEAR); BILIRUBIN,URINE NEGATIVE (NEGATIVE); COLOR,URINE COLORLESS (YELLOW); GLUCOSE, URINE (UA) NEGATIVE (NEGATIVE); KETONES,URINE NEGATIVE (NEGATIVE); LEUKOCYTE ESTERASE ,URINE 75 Leu/uL (NEGATIVE); NITRATE,URINE NEGATIVE (NEGATIVE); OCCULT BLOOD,URINE NEGATIVE (NEGATIVE); PH,URINE 6.5 (5.0-8.0); PROTEIN,URINE NEGATIVE (NEGATIVE); UROBILINOGEN,URINE 0.2 mg/dL (0.2-1.0)
[2024-05-23 19:07] LABS: ADD UA MICROSCOPIC YES
[2024-05-23 19:09] LABS: ABG BASE EXCESS -1.4 mmol/L (-2.0-3.0); ABG HCO3 20.8 mmol/L (21.0-28.0); ABG OXYGEN SATURATION 98.3 % (94.0-98.0); ABG PCO2 29 mmHg (32-45); ABG PH 7.477 (7.350-7.450); PO2, ARTERIAL BG 109.4 mmHg (83.0-108.0)
[2024-05-23 19:13] LABS: BACTERIA,URINE RARE /HPF (None Seen); RBC,URINE 0-1 /HPF (0-1); SQUAMOUS EPITHELIAL CELL,UR RARE /HPF (0-2)
[2024-05-23] MEDS ORDERED: acetaMINOPHEN 650 MG SUPPOSITORY RC PRN (20:30)
[2024-05-23] MEDS ORDERED: ondanSETRON 4MG INJ IV PRN (20:30)
--- NOTE | 2024-05-23 20:34 | HP ---
History of Present Illness Reason for Visit: Shortness of breaths History of Present Illness Ms. Abdullahi is a 49-year-old female that was seen and examined today on 05/23/2024. Patient is a good historian and personal health. Patient's son Dagoberto Salcido is at bedside. Patient states that she came to the emergency department with a chief complaint of shortness of breath. Onset was two weeks ago. Location is to lungs. Duration is on and off. Character is described as "easily running out of air." Initially shortness and breath was only aggravated with climbing one or two fl ights of stairs but symptoms have progressively worsened and patient becomes short of breath even standing or walking short distances. There was no alleviating factors however previously symptoms were being controlled with daily morning albuterol nebulizer treatments. Patient denies any associated chest pain or dizziness. Patient reports an episode of COVID in December 2023. Today in the emergency department CBC unremarkable, chemistry unremarkable, urinalysis unremarkable, influenza screen negative, COVID negative, blood gas shows PO2 less than 45. Chest x-ray shows left lower lung pneumonia and minimal right lung base atelectasis. Emergency room physician recommended that patient be admitted with a diagnosis of acute hypoxemic respiratory failure and p neumonia. Upon arrival to the emergency department patient was placed on a BiPAP due to respiratory distress. Past Medical History Patient History: Carcinomas BROTHER Diabetes mellitus BROTHER SISTER SISTER SISTER Hypertension BROTHER SISTER SISTER SISTER ADDITIONAL PAST MEDICAL HISTORY: [denies] SOCIAL HISTORY: [negative for smoking, alcohol use, or drug use] SURGICAL HISTORY: [appendectomy] Review of Systems General: No Fever, No Chills, No Night Sweats, No Fatigue, No Malaise, No Appetite, No Other HEENT: No Head Aches, No Visual Changes, No Eye Pain, No Ear Pain, No Dysphasia, No Sinus Congestion, No Post Nasal Drip, No Sore Throat, No Other Pulmonary: Dyspnea; No Cough, No Pleuritic Chest Pain, No Other Cardiovascular: No: Chest Pain, Palpitations, Orthopnea, Paroxysmal Noc. Dyspnea, Edema, Lt Headedness, Other Gastrointestinal: No: Nausea, Vomiting, Abdominal Pain, Diarrhea, Constipation, Melena, Hematochezia, Other Genitourinary: No Dysuria, No Frequency, No Incontinence, No Hematuria, No Retention, No Other Musculoskeletal: No: other, neck pain, shoulder pain, arm pain, back pain, hand pain, leg pain, foot pain Skin: No Urticaria, No Rash, No Other Neurological: No: Weakness, Numbness, Incoordination, Change in speech, Confusion, Seizures, Other Allergies: Coded Allergies: cisatracurium (Unverified Allergy, Severe, RASH, 06/23/24) RED FACIAL RASH/MID UPPER CHEST. No Known Drug Allergies (Verified Allergy, Unknown, 02/23/17) Scheduled Amoxicillin/Potassium Clav (Amox Tr-K Clv 500-125 mg Tab), 1 TAB PO TID Azithromycin (Azithromycin), 1 TAB PO DAILY Famotidine (Pepcid), 1 TAB PO BID Loratadine (Claritin), 10 MG PO DAILY, (Reported) Pseudoephedrine HCl (Pseudoephedrine HCl), 1 TAB PO DAILY, (Reported) Scheduled PRN Acetaminophen (Tylenol Extra Strength), 1,000 MG PO BID PRN for PAIN LEVEL 1 TO 5, (Reported) Albuterol Sulfate (Ventolin Hfa), 2 PUFF IH Q4HPRN PRN for WHEEZING D-Methorphan Hb/P-Epd HCl/Bpm (Ywhahcbulk-Mcmmxcjfpsi-Vh Syr), 10 ML PO Q8H PRN for allergies, (Reported) Exam Vital Signs Vital Signs Date Time Temp Pulse Resp B/P (MAP) Pulse Ox O2 Delivery O2 Flow Rate FiO2 05/23/24 19:25 98 40 108/61 100 Non-Rebreather+ 15.0 40 05/23/24 16:46 99.9 General Appearance: Alert, Oriented X3, Cooperative, moderate distress HEENT: Atraumatic, EOMI, Mucous membr. moist/pink Respiratory: Other (Bilateral rhonchi) Cardiovascular: Regular rate, Regular rhythm, Normal S1, Normal S2 Abdominal: Normal bowel sounds, Soft, No tenderness Extremities: No edema Skin: No significant lesion Neuro: Normal speech, Strength at 5/5 X4 ext, Sensation intact, Cranial nerves 3-12 NL Psych/Mental Status: Mental status NL, Mood NL, Thoughts/Content NL Assessment/Plan ASSESSMENT: [ Acute hypoxemic respiratory failure, POA Pneumonia, POA] PLAN: [ Admit patient to PCU as inpatient status. Place patient on telemetry monitoring. Continue BiPAP 10/5, 50% FiO2, rate 16 DuoNebs every 6 hours Patient received Solu-Medrol 125 mg IV times 1. Continue Solu-Medrol 40 mg IV every 8 hours. Respiratory culture, follow up with the results. Empiric antibiotic therapy with azithromycin and Rocephin. Supportive treatment with Tylenol. Keep patient NPO while on BiPAP. Okay for patient to take medications with small sips of water. GI prophylaxis, famotidine 20 mg IV once daily. DVT prophylaxis, Lovenox 40 mg subcutaneously once daily. ADVANCED CARE PLANNING 1. Which of the following were discussed? Hospice Care - Yes Therapeutic options - Yes Advance Directives - Yes- patient states she does not have any advance d irectives in place at this time, however her son Dagoberto can make decisions for her if she becomes unable. Other discussions - patient wishes to remain a full code at this time 2. Discussed with who? Patient 3. Voluntary nature of this service was explained to the patient? Yes 4. Amount of time spent - ____ 16 minutes ___ 5. Reviewed by Physician? (if this service was performed by NPP) Yes This document was generated in part using voice recognition software, occasional wrong word or sound alike substitutions may have occurred due to the inherent limitations of voice recognition software. Read the chart carefully and rec ognize using context, where the substitutions have occurred. Although every effort was made to edit the content, third rail installer and typing errors may occur ATTESTATION BY PHYSICIAN I have seen and examined the patient. I reviewed the documentation, medical decision making, and treatment plan as noted by the mid-level provider above. I agree with the findings and plan of care. FRED [facility] May 23, 2024 20:34
[2024-05-23 21:02] VITALS: PULSE 84; RESP 42; O2SAT 98
[2024-05-23] MEDS: ENOXAPARIN SODIUM 40 MG/0.4 ML SYRINGE SQ SCH (21:38)
[2024-05-23 23:19] VITALS: PULSE 90; RESP 42
[2024-05-23] MEDS: IpraTROPium/alBUTERol SULFATE 3 ML SOLUTION IH SCH (23:19)
[2024-05-23 23:27] VITALS: PULSE 85; RESP 43; O2SAT 98
[2024-05-24] VITALS (26 sets, daily range): BP systolic 102–126; BP diastolic 58–72; PULSE 63–105; RESP 18–73; TEMP 98.2–99.2; O2SAT 95–100
[2024-05-24] MEDS: Solu-medROL 40MG VIAL IVP SCH (00:55)
--- NOTE | 2024-05-24 03:20 | NUR ---
PT PUT BACK TO NRB AT 15LPM PER PT REQUEST.
[2024-05-24 07:24] LABS: BASOPHILS # (AUTO) 0.01 K/uL (0.00-0.20); BASOPHILS % (AUTO) 0.1 % (0.0-5.0); IMMATURE GRANULOCYTE ABSOLUTE 0.03 K/uL (0-1); LYMPHOCYTES # (AUTO) 0.6 K/uL (1.0-4.8); LYMPHOCYTES % (AUTO) 8.4 % (21.0-51.0); MEAN CORPUSCULAR HEMOGLOBIN 32.9 pg (27.0-33.0); MEAN CORPUSCULAR HGB CONC 34.7 g/dL (32.0-36.0); MEAN CORPUSCULAR VOLUME 94.7 fL (79-99); MONOCYTES # (AUTO) 0.3 K/uL (0.1-1.0); MONOCYTES % (AUTO) 3.5 % (3.0-13.0); NEUTROPHILS # (AUTO) 6.7 K/uL (1.8-7.7); NEUTROPHILS % (AUTO) 87.6 % (40.0-77.0); PLATELET COUNT (AUTO) 266 K/uL (130-400); RED BLOOD CELL COUNT(AUTO) 3.59 MIL/uL (4.00-5.50); RED CELL DISTRIBUTION WIDTH 11.4 % (11.0-15.5); WHITE BLOOD COUNT (AUTO) 7.6 K/uL (4.8-10.8)
[2024-05-24 07:39] LABS: CREATININE 0.5 mg/dL (0.5-1.0); MAGNESIUM 2.3 mg/dL (1.80-2.40); PHOSPHORUS 3.2 mg/dL (2.5-4.9); POTASSIUM 4.1 mmol/L (3.5-5.1)
[2024-05-24] MEDS: FAMOTIDINE 20MG VIAL IV SCH (08:34)
--- NOTE | 2024-05-24 10:52 | NUR ---
RECEIVED FROM ED VIA STRETCHER. VOICES NO COMPLAINTS OF PAIN OR OTHER DISCOMFORT.BIPAP IS CONTINUOUS AT THIS TIME
--- NOTE | 2024-05-24 12:15 | PN ---
[facility] PROGRESS NOTE Date of Service: May 24, 2024 Time of Service: 12:14 SUBJECTIVE: [ ] Ms. Abdullahi is a 49-year-old female that was seen and examined today on 05/23/2024. Patient is a good historian and personal health. Patient's son Dagoberto Salcido is at bedside. Patient states that she came to the emergency department with a chief complaint of shortness of breath. Onset was two weeks ago. Location is to lungs. Duration is on and off. Character is described as "easily running out of air." Initially shortness and breath was only aggravated with climbing one or two flights of stairs but symptoms have progressively worsened and patient becomes short of breath even standing or walking short distances. There was no alleviating factors however previously symptoms were being controlled with daily morning albuterol nebulizer treatments. Patient denies any associated chest pain or dizziness. Patient reports an episode of COVID in December 2023. emergency department CBC unremarkable, chemistry unremarkable, urinalysis unremarkable, influenza screen negative, COVID negative, blood gas shows PO2 less than 45. Chest x-ray shows left lower lung pneumonia and minimal right lung base atelectasis. Upon arrival to the emergency department patient was placed on a BiPAP due to respiratory distress. 05/24/2024-patient was seen and examined at the bedside, still on BiPAP. Patient is able to speak, and says she feels much better than before. Patient says after COVID in December she developed severe bronchitis and she was on Solu-Medrol and albuterol, which did not help her much and later she had high fevers and shortness of breath which is when she came to the ED.Vitals afebrile pulse 76, RR 38 tachypneic , blood pressure 115/68, pulse oxygen 99 on BiPAP flow of 60. On ABG pH 7.47, pCO2 29, PO2 109.4, oxygen saturation 98.3. [id number] potassium 4.1 BUN15 creatinine 0.5 GFR 114. We will closely monitor the patient. Head Up Operator Helper consult noted waiting on the recommendation REVIEW OF SYSTEMS CONSTITUTIONAL: Respiratory distress on BiPAP Denies fevers, chills, or night sweats. No unintentional weight loss reported. NEUROLOGICAL: Denies headache, amaurosis fugax, motor weakness, sensory deficit, vertigo/spinning sensation, gait abnormalities, or tremors. ENT: No hearing loss, otalgia, otorrhea, rhinitis, rhinorrhea, hoarseness, or sore throat. CARDIOVASCULAR: Denies any exertional angina, dyspnea on exertion, orthopnea, paroxysmal nocturnal dyspnea, palpitations, life-threatening arrhythmias, claudication. PULMONARY: Denies any shortness of breath, cough, phlegm/sputum, hemoptysis, pleuritic chest pain. SLEEP: Denies morning headaches, daytime somnolence or napping. Denies difficulty falling asleep, staying asleep, waking from sleep. Denies knowledge of snoring. GASTROINTESTINAL: Denies any type of dysphagia to either liquids or solids. Denies nausea, vomiting, pyrosis, early satiety, abdominal pain, diarrhea, constipation, or changes in stool consistency or caliber. Denies coffee-ground emesis, hematemesis, hematochezia, or melanotic stools. GENITOURINARY: Denies frequency, urgency, nocturia, hematuria or incontinence (Storage/Irritative symptoms.) Low urinary stream, straining to void, urinary intermittency or hesitancy, splitting of the voiding stream, terminal dribbling. ENDOCRINOLOGIC: Denies polyuria, polydipsia, polyphagia or heat/cold intolerances. HEMATOLOGIC: Denies thrombophilia/previous clots, or coagulopathy/bleeding disorders. ONCOLOGIC: Denies personal history of malignancy. DERMATOLOGIC: Denies rashes or pruritus. PSYCHIATRIC: Denies any suicidal or homicidal ideation. Denies hallucinations. PHYSICAL EXAM GENERAL APPEARANCE: The patient is awake, alert, and oriented, in no acute cardiopulmonary distress. NEUROLOGICAL: Cranial nerves II-XII grossly intact. Motor is 5/5 in bilateral upper and lower extremities proximal to distal. No sensory deficits. HEENT: Face is symmetric. Pupils are equal and reactive. Extraocular movements are intact. NECK: Supple. No JVD. No thyromegaly. No submental, submandibular, pre- /postauricular, occipital or supraclavicular lymphadenopathy. CHEST: Normal chest expansion. No Telemetry. LUNGS: Absence of any rales, rhonchi or any wheezing. CARDIOVASCULAR: Regular. S1 and S2 normal. No appreciable rubs, murmurs or gallops. ABDOMEN: Soft, nontender, and nondistended. There is no rebound, voluntary guarding, or rigidity. : Deferred. No Souza. EXTREMITIES: Non-edematous and not cyanotic. No clubbing. Good capillary refill. SKIN: No skin breakdown. Vital Signs (last 8hr) Date Time Temp Pulse Resp B/P (MAP) Pulse Ox O2 Delivery O2 Flow Rate FiO2 05/24/24 11:29 76 38 05/24/24 09:55 99.3 83 15 115/68 99 Bi-PAP+ 60 05/24/24 08:00 98.4 84 28 126/72 100 BIPAP 15.0 100 05/24/24 07:44 98.8 87 36 98/56 99 Bi-PAP+ 60 05/24/24 06:38 84 26 05/24/24 06:33 99 22 Non Rebreather 15.0 100 05/24/24 06:15 88 45 120/73 100 Non-Rebreather+ 15 N/A Bi-PAP+ LABS: Laboratory: Test 05/24/24 07:01 05/23/24 19:07 05/23/24 18:33 05/23/24 17:25 Range/Units White Blood Count 7.6 # 4.8-10.8 K/uL Red Blood Count 3.59 L 4.00-5.50 MIL/uL Hemoglobin 11.8 L 12.0-16.0 g/dL Hematocrit 34.0 L 36-48 % Mean Corpuscular Volume 94.7 79-99 fL Mean Corpuscular Hemoglobin 32.9 27.0-33.0 pg Mean Corpuscular Hemoglobin Concent 34.7 32.0-36.0 g/dL Red Cell Distribution Width 11.4 11.0-15.5 % Platelet Count 266 130-400 K/uL Mean Platelet Volume 9.5 7.5-10.5 fL Immature Granulocyte % (Auto) 0.4 0-1 % Neutrophils (%) (Auto) 87.6 H 40.0-77.0 % Lymphocytes (%) (Auto) 8.4 L 21.0-51.0 % Monocytes (%) (Auto) 3.5 3.0-13.0 % Eosinophils (%) (Auto) 0.0 0.0-8.0 % Basophils (%) (Auto) 0.1 0.0-5.0 % Neutrophils # (Auto) 6.7 1.8-7.7 K/uL Lymphocytes # (Auto) 0.6 L 1.0-4.8 K/uL Monocytes # (Auto) 0.3 0.1-1.0 K/uL Eosinophils # (Auto) 0.00 0.00-0.70 K/uL Basophils # (Auto) 0.01 0.00-0.20 K/uL Absolute Immature Granulocyte (auto 0.03 0-1 K/uL Nucleated Red Blood Cells 0.0 0.0-0.19 % White Cell Morphology Comment See comments Sodium Level 138 136-145 mmol/L Potassium Level 4.1 3.5-5.1 mmol/L Chloride Level 102 101-111 mmol/L Carbon Dioxide Level 27 21-32 mmol/L Blood Urea Nitrogen 15 7-18 mg/dL Creatinine 0.5 0.5-1.0 mg/dL Glomerular Filtration Rate Calc 114 >90 mL/min Random Glucose 139 H 70-105 mg/dL Total Calcium 8.8 8.5-10.1 mg/dL Phosphorus Level 3.2 2.5-4.9 mg/dL Magnesium Level 2.30 1.80-2.40 mg/dL Blood Gas Specimen Type Arterial Arterial Blood pH 7.477 H 7.350-7.450 Arterial Blood Partial Pressure CO2 29 L 32-45 mmHg Arterial Blood Partial Pressure O2 109.4 H 83.0-108.0 mmHg Arterial Blood HCO3 20.8 L 21.0-28.0 mmol/L Arterial Blood Oxygen Saturation 98.3 H 94.0-98.0 % Arterial Blood Base Excess -1.4 -2.0-3.0 mmol/L Blood Gas Temperature 37.0 35.5-37.0 CELSIUS Blood Gas Flow-by 15.00 0.00-15.00 L/min Blood Gas Vent Mode NRB,100 ROOM AIR FiO2 100.0 % Blood Gas Specimen Comment RR,RN DAGOBERTO Urine Color COLORLESS YELLOW Urine Appearance CLEAR CLEAR Urine pH 6.5 5.0-8.0 Urine Specific [place] 1.003 1.001-1.031 Urine Protein NEGATIVE NEGATIVE mg/dL Urine Glucose (UA) NEGATIVE NEGATIVE mg/dL Urine Ketones NEGATIVE NEGATIVE mg/dL Urine Occult Blood NEGATIVE NEGATIVE Urine Nitrate NEGATIVE NEGATIVE Urine Bilirubin NEGATIVE NEGATIVE mg/dL Urine Urobilinogen 0.2 0.2-1.0 mg/dL Urine Leukocyte Esterase 75 H NEGATIVE Carlo/uL Urine RBC 0-1 0-1 /HPF Urine WBC 2-5 H 0-1 /HPF Urine Squamous Epithelial Cells RARE 0-2 /HPF Urine Bacteria RARE None Seen /HPF Influenza Type A Antigen Negative For Type A NEGATIVE Influenza Type B Antigen Negative For Type B NEGATIVE SARS-CoV-2, RNA, NAAT NEGATIVE SARS CoV-2 NEGATIVE Test 05/23/24 17:09 05/23/24 17:08 Range/Units Hemoglobin (Blood Gas) 12.9 12.0-16.0 g/dL Sodium (Blood Gas) 129 L 136-145 MMOL/L Bedside Potassium (Blood Gas) 3.6 3.4-4.5 MMOL/L Bedside Chloride (Blood Gas) 95 L 98-107 MMOL/L Bedside Glucose (Blood Gas) 113 H 65-95 MG/DL Bedside Ionized Calcium (Blood Gas) 1.14 L 1.15-1.33 MMOL/L Bedside Lactic Acid (Blood Gas) 0.83 H 0.36-0.75 MMOL/L Lactic Acid Level 1.8 0.8-2.5 mmol/L Total Bilirubin 0.7 0.2-1.0 mg/dL Direct Bilirubin 0.2 0.0-0.3 mg/dL Aspartate Amino Transf (AST/SGOT) 49 H 10-37 U/L Alanine Aminotransferase (ALT/SGPT) 49 12-78 U/L Alkaline Phosphatase 73 50-136 U/L Total Creatine Kinase 25 21-232 U/L Troponin I High Sensitivity 13 4-50 ng/L B-Type Natriuretic Peptide 34 0-100 pg/mL Total Protein 8.1 6.0-8.3 g/dL Albumin 2.7 L 3.5-5.0 g/dL Current Medications Medications (Trade) Dose Ordered Sig/Julita Route PRN Reason Start Time Stop Time Status Last Admin Dose Admin Acetaminophen (TYLenol 650MG SUPPOSITORY) 650 mg Q6H PRN RC MILD PAIN (1-3) 05/23/24 20:30 06/22/24 20:29 Albuterol (DUOneb) 1 udvial M9ALOIO IH 05/24/24 00:00 06/23/24 00:00 05/24/24 11:27 1 UDVIAL Azithromycin 250 ml @ 250 mls/hr Q24H IVPB 05/24/24 17:00 06/03/24 16:59 Azithromycin 250 ml @ 250 mls/hr Q24H STAT IVPB 05/23/24 17:17 05/23/24 18:16 DC 05/23/24 17:45 250 MLS/HR Ceftriaxone Sodium (ROCEphine 1G INJ) 1 gm Q24H IVPB 05/24/24 17:30 06/03/24 17:29 Enoxaparin Sodium (Lovenox) 40 mg Q24H SQ 05/23/24 21:00 06/22/24 20:59 05/23/24 21:38 40 MG Famotidine (Pepcid 20mg Vial) 20 mg DAILY IV 05/24/24 09:00 06/23/24 08:59 05/24/24 08:34 20 MG Guaifenesin/ Dextromethorphan (RobiTUSSin DM 200/20MG 10ML) 10 ml Q4H PRN PO COUGH 05/23/24 20:30 06/22/24 20:29 Methylprednisolone Sodium Succinate (Solu-medROL 40MG) 40 mg Q8H IVP 05/24/24 01:00 06/23/24 00:59 05/24/24 08:34 40 MG Ondansetron HCl (zoFRAN 4MG INJ) 4 mg Q6H PRN IV NAUSEA/VOMITING 05/23/24 20:30 06/22/24 20:29 DIAGNOSTICS / RADIOLOGY: [ ] ASSESSMENT: Acute hypoxemic respiratory failure, POA Pneumonia, POA] Leukocytosis POA PLAN: Patient is in PCU on telemetry monitoring. on BiPAP 10/5, 60 % FiO2, rate 16 DuoNebs every 6 hours Patient received Solu-Medrol 125 mg IV times 1. Continue Solu-Medrol 40 mg IV every 8 hours. Respiratory culture, follow up with the results. Empiric antibiotic therapy with azithromycin and Rocephin. Supportive treatment with Tylenol. Keep patient NPO while on BiPAP. Okay for patient to take medications with small sips of water. GI prophylaxis, famotidine 20 mg IV once daily. DVT prophylaxis, Lovenox 40 mg subcutaneously once daily. Further orders to follow based on the above results ATTESTATION BY PHYSICIAN I have seen and examined the patient. I reviewed the documentation, medical decision making, and treatment plan as noted by the mid-level provider above. I agree with the findings and plan of care. Nichelle Hernandez MD, AISHWARYA MD May 24, 2024 12:15
[2024-05-24] MEDS: levoFLOXacin 500 MG/D5W 100 ML 100 ML IV SCH (15:00)
[2024-05-24 15:22] LABS: ABG BASE EXCESS 0.4 mmol/L (-2.0-3.0); ABG OXYGEN SATURATION 95.2 % (94.0-98.0); ABG PCO2 36 mmHg (32-45); ABG PH 7.447 (7.350-7.450); PO2, ARTERIAL BG 72.1 mmHg (83.0-108.0); VENT MODE, BG NRB (ROOM AIR)
[2024-05-24] MEDS: ceFEPime HCL 2 GM VIAL IVPB SCH (16:02)
[2024-05-24] MEDS ORDERED: AZITHROMYCIN 500MG+NS 250ML 250 ML IVPB SCH (17:00)
[2024-05-24] MEDS ORDERED: IOHEXOL 350 MG/ML 100ML INFUS..BTL IV ONE (17:18)
[2024-05-24] MEDS ORDERED: cefTRIAXone 1G VIAL IVPB SCH (17:30)
--- NOTE | 2024-05-24 18:30 | HMCIMG ---
CT CHEST PE PROTOCOL WWO CONT HISTORY: Suspected pulmonary embolism COMPARISON: 05/21/2019 TECHNIQUE: CT angiography of the chest was performed. The study was performed using angiographic technique with maximum intensity projection reconstruction images. Patient was given 100 cc of Omnipaque through intravenous route. FINDINGS: No CT evidence of filling defect is seen to suggest pulmonary embolus. No CT evidence of aortic dissection is seen. There are bilateral pulmonary infiltrates with subsegmental atelectasis. Fatty changes of the liver are noted. No CT evidence of pleural effusion or pericardial effusion is seen. The heart is enlarged. No evidence of adrenal mass is seen. Degenerative changes of the spine are noted. IMPRESSION: 1. No CT evidence of acute pulmonary embolus is seen. Bilateral pulmonary infiltrates with subsegmental atelectasis. Fatty changes of liver are noted. CT was performed with one or more following dose reduction techniques: automated exposure control, adjustment of the mA and kv according to patient's size, or use of a iterative reconstruction technique.
[2024-05-24] MEDS: DOXYCYCLINE 100MG+NS 250ML 250 ML IV SCH (18:41)
[2024-05-24] MEDS: guaiFENesin-DM 200/20MG 10ML PO PRN (21:03)
--- NOTE | 2024-05-24 23:35 | CONS ---
[facility] CONSULTATION NOTE Date Patient Seen: May 24, 2024 Time of Visit: 23:28 Supervising Physician: Melissa Evans Reason for Consultation: Acute hypoxemic respiratory failure Primary Care Physician: Stu Foss MD Outpatient Specialists: [ ] Inpatient Consults: Pulmonology PROBLEM LIST: Acute hypoxemic respiratory failure. Left lower lobe pneumonia failed outpatient therapy. Sepsis suspected from lung source. Suspected urinary tract infection. Morbid obesity BMI of 32.3 HPI: This is a 49-year-old female patient who has no significant past medical history. Per patient report, she was recently diagnosed with pneumonia and was on treatment with azithromycin in the outpatient setting. Unfortunately, patient completed treatment but was not seeing any better. She was with pers istent shortness of breaths that was worsening over time to the point were she was not able to ambulate without running for this reason, the patient decided to come into the emergency department for further evaluation and management of her condition showed workup, vital signs obtained showed hypoxemia in the 70s on room air. The patient was started on non-rebreather therapy and was later upgraded to BiPAP. Laboratory data obtained initially showed a slightly elevated WBC of 11.2. H and H and platelet count was unremarkable. Chemistry panel did show a slightly low sodium count of 130 and a chloride of 92. Otherwise, chemistry panel was unremarkable initial ABGs showed a pH of 7.5 the pCO2 of 28 and a PO2 of less than 45 on urinalysis showed suspicion for urinary tract infection influenza A and B and SARS-CoV-2 were negative. Imaging of the chest showed left lower lung pneumonia and minimal right lung base atelectasis. The findings, the patient was admitted for further inpatient evaluation and management of her condition. Because of the lung condition, a pulmonology consultation was requested for further evaluation and management her condition. At the time of my evaluation, the patient was in the PCCU no new complaint. PAST MEDICAL HX: Morbid obesity. PAST SURGICAL HX: noncontributory SOCIAL HISTORY: No tobacco, ETOH, or illicit drug use Coded Allergies: No Known Drug Allergies (Verified Allergy, Unknown, 02/23/17) REVIEW OF SYSTEMS: 12 point ROS reviewed with patient. Pertinent positives mentioned above. Otherwise negative. PHYSICAL EXAM: GENERAL: alert, weak, awake oriented x 3 HEENT: EOMI, Sclera non icteric, moist mucosa NECK: Supple, no JVD, trachea midline LUNGS: Diminished lung sounds. No wheezes HEART: Regular rate and rhythm. Normal S1 and S2, without murmurs ABD: Abdomen soft, nontender. Bowel sounds present EXT: No clubbing cyanosis or edema NEURO: Alert and oriented to person, follows commands Vital Signs (last 8hr) Date Time Temp Pulse Resp B/P (MAP) Pulse Ox O2 Delivery O2 Flow Rate FiO2 05/24/24 23:13 93 40 60 05/24/24 23:07 93 23 05/24/24 20:00 100 Venti Mask+ 15 60 05/24/24 20:00 99.1 82 41 100 Nonrebreathing Mask 15.0 100 05/24/24 19:46 82 43 116/69 100 Nonrebreathing Mask 15.0 100 05/24/24 19:45 80 40 100 Nonrebreathing Mask 15.0 100 05/24/24 19:30 105 73 95 Nonrebreathing Mask 15.0 100 05/24/24 19:15 83 44 98 Nonrebreathing Mask 15.0 100 05/24/24 19:00 88 38 97 Nonrebreathing Mask 15.0 100 05/24/24 18:38 83 23 05/24/24 18:38 83 23 Non Rebreather 15.0 100 05/24/24 18:34 83 26 05/24/24 16:00 98.2 84 18 102/58 100 Nonrebreathing Mask 15.0 100 LABS: Hematology Labs: Test 05/24/24 07:01 Range/Units White Blood Count 7.6 # 4.8-10.8 K/uL Red Blood Count 3.59 L 4.00-5.50 MIL/uL Hemoglobin 11.8 L 12.0-16.0 g/dL Hematocrit 34.0 L 36-48 % Mean Corpuscular Volume 94.7 79-99 fL Mean Corpuscular Hemoglobin 32.9 27.0-33.0 pg Mean Corpuscular Hemoglobin Concent 34.7 32.0-36.0 g/dL Red Cell Distribution Width 11.4 11.0-15.5 % Platelet Count 266 130-400 K/uL Mean Platelet Volume 9.5 7.5-10.5 fL Immature Granulocyte % (Auto) 0.4 0-1 % Neutrophils (%) (Auto) 87.6 H 40.0-77.0 % Lymphocytes (%) (Auto) 8.4 L 21.0-51.0 % Monocytes (%) (Auto) 3.5 3.0-13.0 % Eosinophils (%) (Auto) 0.0 0.0-8.0 % Basophils (%) (Auto) 0.1 0.0-5.0 % Neutrophils # (Auto) 6.7 1.8-7.7 K/uL Lymphocytes # (Auto) 0.6 L 1.0-4.8 K/uL Monocytes # (Auto) 0.3 0.1-1.0 K/uL Eosinophils # (Auto) 0.00 0.00-0.70 K/uL Basophils # (Auto) 0.01 0.00-0.20 K/uL Absolute Immature Granulocyte (auto 0.03 0-1 K/uL Nucleated Red Blood Cells 0.0 0.0-0.19 % White Cell Morphology Comment See comments Chemistry Labs: Test 05/24/24 07:01 05/23/24 17:08 Range/Units Sodium Level 138 136-145 mmol/L Potassium Level 4.1 3.5-5.1 mmol/L Chloride Level 102 101-111 mmol/L Carbon Dioxide Level 27 21-32 mmol/L Blood Urea Nitrogen 15 7-18 mg/dL Creatinine 0.5 0.5-1.0 mg/dL Glomerular Filtration Rate Calc 114 >90 mL/min Random Glucose 139 H 70-105 mg/dL Total Calcium 8.8 8.5-10.1 mg/dL Phosphorus Level 3.2 2.5-4.9 mg/dL Magnesium Level 2.30 1.80-2.40 mg/dL Lactic Acid Level 1.8 0.8-2.5 mmol/L Total Bilirubin 0.7 0.2-1.0 mg/dL Direct Bilirubin 0.2 0.0-0.3 mg/dL Aspartate Amino Transf (AST/SGOT) 49 H 10-37 U/L Alanine Aminotransferase (ALT/SGPT) 49 12-78 U/L Alkaline Phosphatase 73 50-136 U/L Total Creatine Kinase 25 21-232 U/L Troponin I High Sensitivity 13 4-50 ng/L B-Type Natriuretic Peptide 34 0-100 pg/mL Total Protein 8.1 6.0-8.3 g/dL Albumin 2.7 L 3.5-5.0 g/dL DIAGNOSTICS / RADIOLOGY RESULTS: [ ] PLAN For now, going to continue current management for the patient. We are going to request a CT angio of the chest rule out a PE and at the same time evaluate more in the lung field. Because the patient already failed antibiotic therapy with Zithromax in the outpatient setting I am going to change antibiotic therapy to cefepime and Levaquin. I am going to request a to read evaluate the gas exchange as the patient has been on BiPAP therapy. The patient will remain on steroid therapy with Solu-Medrol 40 IV Q 8 we will monitor the patient's progress and response to management. Appreciate the opportunity to participate inpatient care. We will continue to follow along with you and provide advice as necessary. NEURO: Minimize central acting medications as possible. Maintain fall precautions, adequate lighting during the day PULMONARY: Supplemental 02 as needed. Maintain aspiration precautions at all times CARDIOVASCULAR: Follow hemodynamics. Vital signs per facility protocol GI & NUTRITION: Continue with nutritional support. Continue stool softeners and laxatives as needed. KIDNEYS & ELECTROLYTES: Strict monitoring of intake, output and overall fluid balance. Avoid nephrotoxic medications to the extent possible. Medications to be dosed according to renal function. Monitor electrolytes and replace as needed ENDOCRINE: Maintain blood glucose between 100-180 at all times. Hypoglycemia protocol in place INFECTIOUS DISEASE: Trend temperature, WBC and procalcitonin level Follow cultures, deescalate antibiotics as soon as possible. Panculture if new onset fever ONCOLOGY/HEMATOLOGY/COAGULATION: Monitor for s/s of bleeding Monitor hemoglobin, coagulation studies as needed SKIN: Pressure ulcer prevention per facility protocol Specialty mattress ORTHO/REHAB: Continue PT/OT Prophylaxis: Continue GI and DVT prophylaxis Code Status: Full Resuscitation Disposition: TBD Other: Total patient care time exceeds 35 minutes excluding all procedures. DAYRON RUBIN NP May 24, 2024 23:35
[2024-05-25] VITALS (23 sets, daily range): BP systolic 108–120; BP diastolic 45–65; PULSE 59–88; RESP 18–40; TEMP 97.9–99; O2SAT 97–100
[2024-05-25] MEDS ORDERED: D-ME118S56 PO (07:58)
--- NOTE | 2024-05-25 10:54 | PN ---
[facility] PROGRESS NOTE Date Patient Seen: May 25, 2024 Time of Visit: 10:54 Supervising Physician: Dr. Moncada Primary Care Physician: Stu Foss MD Outpatient Specialists: [ ] Inpatient Consults: Pulmonology PROBLEM LIST: Acute hypoxemic respiratory failure. Left lower lobe pneumonia failed outpatient therapy. Suspected PCP PNA based on CT findings vs viral/Atypical PNA . Morbid obesity BMI of 32.3 INTERVAL HISTORY: 05/25/2024: At the time of my evaluation, the patient was lying in bed. She is currently on a non-rebreather mask. She reports feeling slightly better today. No laboratory data for review today. No new complaint. 24 hour I & O: Urine output of a 350 mL with a negative balance of 300 ML Pressors: None Drips: None Antibiotics/antiviral: Cefepime and doxycycline Microbiology data: Betty albicans growth in sputum. Imaging data: No new imaging for review today Pathology data: None REVIEW OF SYSTEMS: 12 point ROS reviewed with patient. Pertinent positives mentioned above. Otherwise negative. PHYSICAL EXAM: GENERAL: alert, weak, awake oriented x 3 HEENT: EOMI, Sclera non icteric, moist mucosa NECK: Supple, no JVD, trachea midline LUNGS: Diminished lung sounds. No wheezes HEART: Regular rate and rhythm. Normal S1 and S2, without murmurs ABD: Abdomen soft, nontender. Bowel sounds present EXT: No clubbing cyanosis or edema NEURO: Alert and oriented to person, follows commands Vital Signs (last 8hr) Date Time Temp Pulse Resp B/P (MAP) Pulse Ox O2 Delivery O2 Flow Rate FiO2 05/25/24 10:00 82 23 Non Rebreather 15.0 100 05/25/24 07:52 100 CPAP+ 15 60 Bi-PAP+ 05/25/24 07:43 97.9 05/25/24 06:36 65 25 60 05/25/24 06:36 68 23 05/25/24 03:46 65 30 118/62 99 BIPAP 60 05/25/24 03:05 63 24 60 05/25/24 03:00 66 30 95 BIPAP 60 LABS: Hematology Labs: Test 05/24/24 07:01 Range/Units White Blood Count 7.6 # 4.8-10.8 K/uL Red Blood Count 3.59 L 4.00-5.50 MIL/uL Hemoglobin 11.8 L 12.0-16.0 g/dL Hematocrit 34.0 L 36-48 % Mean Corpuscular Volume 94.7 79-99 fL Mean Corpuscular Hemoglobin 32.9 27.0-33.0 pg Mean Corpuscular Hemoglobin Concent 34.7 32.0-36.0 g/dL Red Cell Distribution Width 11.4 11.0-15.5 % Platelet Count 266 130-400 K/uL Mean Platelet Volume 9.5 7.5-10.5 fL Immature Granulocyte % (Auto) 0.4 0-1 % Neutrophils (%) (Auto) 87.6 H 40.0-77.0 % Lymphocytes (%) (Auto) 8.4 L 21.0-51.0 % Monocytes (%) (Auto) 3.5 3.0-13.0 % Eosinophils (%) (Auto) 0.0 0.0-8.0 % Basophils (%) (Auto) 0.1 0.0-5.0 % Neutrophils # (Auto) 6.7 1.8-7.7 K/uL Lymphocytes # (Auto) 0.6 L 1.0-4.8 K/uL Monocytes # (Auto) 0.3 0.1-1.0 K/uL Eosinophils # (Auto) 0.00 0.00-0.70 K/uL Basophils # (Auto) 0.01 0.00-0.20 K/uL Absolute Immature Granulocyte (auto 0.03 0-1 K/uL Nucleated Red Blood Cells 0.0 0.0-0.19 % White Cell Morphology Comment See comments Chemistry Labs: Test 05/24/24 07:01 05/23/24 17:08 Range/Units Sodium Level 138 136-145 mmol/L Potassium Level 4.1 3.5-5.1 mmol/L Chloride Level 102 101-111 mmol/L Carbon Dioxide Level 27 21-32 mmol/L Blood Urea Nitrogen 15 7-18 mg/dL Creatinine 0.5 0.5-1.0 mg/dL Glomerular Filtration Rate Calc 114 >90 mL/min Random Glucose 139 H 70-105 mg/dL Total Calcium 8.8 8.5-10.1 mg/dL Phosphorus Level 3.2 2.5-4.9 mg/dL Magnesium Level 2.30 1.80-2.40 mg/dL Lactic Acid Level 1.8 0.8-2.5 mmol/L Total Bilirubin 0.7 0.2-1.0 mg/dL Direct Bilirubin 0.2 0.0-0.3 mg/dL Aspartate Amino Transf (AST/SGOT) 49 H 10-37 U/L Alanine Aminotransferase (ALT/SGPT) 49 12-78 U/L Alkaline Phosphatase 73 50-136 U/L Total Creatine Kinase 25 21-232 U/L Troponin I High Sensitivity 13 4-50 ng/L B-Type Natriuretic Peptide 34 0-100 pg/mL Total Protein 8.1 6.0-8.3 g/dL Albumin 2.7 L 3.5-5.0 g/dL DIAGNOSTICS / RADIOLOGY RESULTS: [ ] PLAN For now, going to continue current management for the patient. We are going to request a CT angio of the chest rule out a PE and at the same time evaluate more in the lung field. Because the patient already failed antibiotic therapy with Zithromax in the outpatient setting I am going to change antibiotic therapy to cefepime and Levaquin. I am going to request a to read evaluate the gas exchange as the patient has been on BiPAP therapy. The patient will remain on steroid therapy with Solu-Medrol 40 IV Q 8 we will monitor the patient's progress and response to management. Appreciate the opportunity to participate inpatient care. We will continue to follow along with you and provide advice as necessary. 05/25/2024: For now, going to start IV steroids. We will continue to monitor the patient's respiratory status and supplement as necessary. We will continue with pulmonary toileting. I am going to continue antibiotic therapy as ordered. . We will also order IS therapy. We will continue to follow the hemodynamics and treat accordingly. Patient continue to feed orally. We will order a HIV screen, mycoplasma pneumoniae, Legionella and strep pneumo antigen. We will continue to monitor the coags. We will continue to address rehabilitative needs once her acute condition is stabilized. We will monitor the patient's progress and response to management. We will continue to provide general supportive care, GI and DVT prophylaxis. Further orders per attending MD and hospital course. NEURO: Minimize central acting medications as possible. Maintain fall precautions, adequate lighting during the day PULMONARY: Supplemental 02 as needed. Maintain aspiration precautions at all times CARDIOVASCULAR: Follow hemodynamics. Vital signs per facility protocol GI & NUTRITION: Continue with nutritional support. Continue stool softeners and laxatives as needed. KIDNEYS & ELECTROLYTES: Strict monitoring of intake, output and overall fluid balance. Avoid nephrotoxic medications to the extent possible. Medications to be dosed according to renal function. Monitor electrolytes and replace as needed ENDOCRINE: Maintain blood glucose between 100-180 at all times. Hypoglycemia protocol in place INFECTIOUS DISEASE: Trend temperature, WBC and procalcitonin level Follow cultures, deescalate antibiotics as soon as possible. Panculture if new onset fever ONCOLOGY/HEMATOLOGY/COAGULATION: Monitor for s/s of bleeding Monitor hemoglobin, coagulation studies as needed SKIN: Pressure ulcer prevention per facility protocol Specialty mattress ORTHO/REHAB: Continue PT/OT Prophylaxis: Continue GI and DVT prophylaxis Code Status: Full Resuscitation Disposition: TBD Other: Total patient care time exceeds 35 minutes excluding all procedures. DAYRON RUBIN NP May 25, 2024 10:54 ARNOLD MONCADA MD May 27, 2024 13:12
--- NOTE | 2024-05-25 13:08 | PN ---
[facility] PROGRESS NOTE Date of Service: May 25, 2024 Time of Service: 13:06 SUBJECTIVE: [ ] Ms. Abdullahi is a 49-year-old female that was seen and examined today on 05/23/2024. Patient is a good historian and personal health. Patient's son Dagoberto Salcido is at bedside. Patient states that she came to the emergency department with a chief complaint of shortness of breath. Onset was two weeks ago. Location is to lungs. Duration is on and off. Character is described as "easily running out of air." Initially shortness and breath was only aggravated with climbing one or two flights of stairs but symptoms have progressively worsened and patient becomes short of breath even standing or walking short distances. There was no alleviating factors however previously symptoms were being controlled with daily morning albuterol nebulizer treatments. Patient denies any associated chest pain or dizziness. Patient reports an episode of COVID in December 2023. emergency department CBC unremarkable, chemistry unremarkable, urinalysis unremarkable, influenza screen negative, COVID negative, blood gas shows PO2 less than 45. Chest x-ray shows left lower lung pneumonia and minimal right lung base atelectasis. Upon arrival to the emergency department patient was placed on a BiPAP due to respiratory distress. 05/24/2024-patient was seen and examined at the bedside, still on BiPAP. Patient is able to speak, and says she feels much better than before. Patient says after COVID in December she developed severe bronchitis and she was on Solu-Medrol and albuterol, which did not help her much and later she had high fevers and shortness of breath which is when she came to the ED.Vitals afebrile pulse 76, RR 38 tachypneic , blood pressure 115/68, pulse oxygen 99 on BiPAP flow of 60. On ABG pH 7.47, pCO2 29, PO2 109.4, oxygen saturation 98.3. [id number] potassium 4.1 BUN15 creatinine 0.5 GFR 114. We will closely monitor the patient. Soil Specialist consult noted waiting on the recommendation 05/25/24 patient was seen and examined and case discussed with RN and family by the bedside. She was breathing better today. She has been on BiPAP all night but now he was on 100% non-rebreather with further efforts to continue to wean the oxygen requirements down. REVIEW OF SYSTEMS CONSTITUTIONAL: Respiratory distress on BiPAP Denies fevers, chills, or night sweats. No unintentional weight loss reported. NEUROLOGICAL: Denies headache, amaurosis fugax, motor weakness, sensory deficit, vertigo/spinning sensation, gait abnormalities, or tremors. ENT: No hearing loss, otalgia, otorrhea, rhinitis, rhinorrhea, hoarseness, or sore throat. CARDIOVASCULAR: Denies any exertional angina, dyspnea on exertion, orthopnea, paroxysmal nocturnal dyspnea, palpitations, life-threatening arrhythmias, claudication. PULMONARY: Denies any shortness of breath, cough, phlegm/sputum, hemoptysis, pleuritic chest pain. SLEEP: Denies morning headaches, daytime somnolence or napping. Denies difficulty falling asleep, staying asleep, waking from sleep. Denies knowledge of snoring. GASTROINTESTINAL: Denies any type of dysphagia to either liquids or solids. Denies nausea, vomiting, pyrosis, early satiety, abdominal pain, diarrhea, constipation, or changes in stool consistency or caliber. Denies coffee-ground emesis, hematemesis, hematochezia, or melanotic stools. GENITOURINARY: Denies frequency, urgency, nocturia, hematuria or incontinence (Storage/Irritative symptoms.) Low urinary stream, straining to void, urinary intermittency or hesitancy, splitting of the voiding stream, terminal dribbling. ENDOCRINOLOGIC: Denies polyuria, polydipsia, polyphagia or heat/cold intolerances. HEMATOLOGIC: Denies thrombophilia/previous clots, or coagulopathy/bleeding disorders. ONCOLOGIC: Denies personal history of malignancy. DERMATOLOGIC: Denies rashes or pruritus. PSYCHIATRIC: Denies any suicidal or homicidal ideation. Denies hallucinations. PHYSICAL EXAM GENERAL APPEARANCE: The patient is awake, alert, and oriented, in no acute cardiopulmonary distress. NEUROLOGICAL: Cranial nerves II-XII grossly intact. Motor is 5/5 in bilateral upper and lower extremities proximal to distal. No sensory deficits. HEENT: Face is symmetric. Pupils are equal and reactive. Extraocular movements are intact. NECK: Supple. No JVD. No thyromegaly. No submental, submandibular, pre- /postauricular, occipital or supraclavicular lymphadenopathy. CHEST: Normal chest expansion. No Telemetry. LUNGS: Absence of any rales, rhonchi or any wheezing. CARDIOVASCULAR: Regular. S1 and S2 normal. No appreciable rubs, murmurs or gallops. ABDOMEN: Soft, nontender, and nondistended. There is no rebound, voluntary guarding, or rigidity. : Deferred. No Souza. EXTREMITIES: Non-edematous and not cyanotic. No clubbing. Good capillary refill. SKIN: No skin breakdown. Vital Signs (last 8hr) Date Time Temp Pulse Resp B/P (MAP) Pulse Ox O2 Delivery O2 Flow Rate FiO2 05/25/24 11:33 99.0 05/25/24 11:07 66 22 05/25/24 11:06 22 Non Rebreather 15.0 100 05/25/24 10:00 82 23 Non Rebreather 15.0 100 05/25/24 07:52 100 CPAP+ 15 60 Bi-PAP+ 05/25/24 07:43 97.9 05/25/24 06:36 65 25 60 05/25/24 06:36 68 23 LABS: Laboratory: Test 05/24/24 15:20 05/24/24 07:01 05/23/24 19:07 05/23/24 18:33 Range/Units Blood Gas Specimen Type Arterial Arterial Blood pH 7.447 7.350-7.450 Arterial Blood Partial Pressure CO2 36 32-45 mmHg Arterial Blood Partial Pressure O2 72.1 L 83.0-108.0 mmHg Arterial Blood HCO3 24.0 21.0-28.0 mmol/L Arterial Blood Oxygen Saturation 95.2 94.0-98.0 % Arterial Blood Base Excess 0.4 -2.0-3.0 mmol/L Blood Gas Temperature 37.0 35.5-37.0 CELSIUS Blood Gas Vent Mode NRB ROOM AIR FiO2 100.0 % Blood Gas Specimen Comment RR RAVEN SCHROEDER White Blood Count 7.6 # 4.8-10.8 K/uL Red Blood Count 3.59 L 4.00-5.50 MIL/uL Hemoglobin 11.8 L 12.0-16.0 g/dL Hematocrit 34.0 L 36-48 % Mean Corpuscular Volume 94.7 79-99 fL Mean Corpuscular Hemoglobin 32.9 27.0-33.0 pg Mean Corpuscular Hemoglobin Concent 34.7 32.0-36.0 g/dL Red Cell Distribution Width 11.4 11.0-15.5 % Platelet Count 266 130-400 K/uL Mean Platelet Volume 9.5 7.5-10.5 fL Immature Granulocyte % (Auto) 0.4 0-1 % Neutrophils (%) (Auto) 87.6 H 40.0-77.0 % Lymphocytes (%) (Auto) 8.4 L 21.0-51.0 % Monocytes (%) (Auto) 3.5 3.0-13.0 % Eosinophils (%) (Auto) 0.0 0.0-8.0 % Basophils (%) (Auto) 0.1 0.0-5.0 % Neutrophils # (Auto) 6.7 1.8-7.7 K/uL Lymphocytes # (Auto) 0.6 L 1.0-4.8 K/uL Monocytes # (Auto) 0.3 0.1-1.0 K/uL Eosinophils # (Auto) 0.00 0.00-0.70 K/uL Basophils # (Auto) 0.01 0.00-0.20 K/uL Absolute Immature Granulocyte (auto 0.03 0-1 K/uL Nucleated Red Blood Cells 0.0 0.0-0.19 % White Cell Morphology Comment See comments Sodium Level 138 136-145 mmol/L Potassium Level 4.1 3.5-5.1 mmol/L Chloride Level 102 101-111 mmol/L Carbon Dioxide Level 27 21-32 mmol/L Blood Urea Nitrogen 15 7-18 mg/dL Creatinine 0.5 0.5-1.0 mg/dL Glomerular Filtration Rate Calc 114 >90 mL/min Random Glucose 139 H 70-105 mg/dL Total Calcium 8.8 8.5-10.1 mg/dL Phosphorus Level 3.2 2.5-4.9 mg/dL Magnesium Level 2.30 1.80-2.40 mg/dL Blood Gas Flow-by 15.00 0.00-15.00 L/min Urine Color COLORLESS YELLOW Urine Appearance CLEAR CLEAR Urine pH 6.5 5.0-8.0 Urine Specific [place] 1.003 1.001-1.031 Urine Protein NEGATIVE NEGATIVE mg/dL Urine Glucose (UA) NEGATIVE NEGATIVE mg/dL Urine Ketones NEGATIVE NEGATIVE mg/dL Urine Occult Blood NEGATIVE NEGATIVE Urine Nitrate NEGATIVE NEGATIVE Urine Bilirubin NEGATIVE NEGATIVE mg/dL Urine Urobilinogen 0.2 0.2-1.0 mg/dL Urine Leukocyte Esterase 75 H NEGATIVE Carlo/uL Urine RBC 0-1 0-1 /HPF Urine WBC 2-5 H 0-1 /HPF Urine Squamous Epithelial Cells RARE 0-2 /HPF Urine Bacteria RARE None Seen /HPF Test 05/23/24 17:25 05/23/24 17:09 05/23/24 17:08 Range/Units Influenza Type A Antigen Negative For Type A NEGATIVE Influenza Type B Antigen Negative For Type B NEGATIVE SARS-CoV-2, RNA, NAAT NEGATIVE SARS CoV-2 NEGATIVE Hemoglobin (Blood Gas) 12.9 12.0-16.0 g/dL Sodium (Blood Gas) 129 L 136-145 MMOL/L Bedside Potassium (Blood Gas) 3.6 3.4-4.5 MMOL/L Bedside Chloride (Blood Gas) 95 L 98-107 MMOL/L Bedside Glucose (Blood Gas) 113 H 65-95 MG/DL Bedside Ionized Calcium (Blood Gas) 1.14 L 1.15-1.33 MMOL/L Bedside Lactic Acid (Blood Gas) 0.83 H 0.36-0.75 MMOL/L Lactic Acid Level 1.8 0.8-2.5 mmol/L Total Bilirubin 0.7 0.2-1.0 mg/dL Direct Bilirubin 0.2 0.0-0.3 mg/dL Aspartate Amino Transf (AST/SGOT) 49 H 10-37 U/L Alanine Aminotransferase (ALT/SGPT) 49 12-78 U/L Alkaline Phosphatase 73 50-136 U/L Total Creatine Kinase 25 21-232 U/L Troponin I High Sensitivity 13 4-50 ng/L B-Type Natriuretic Peptide 34 0-100 pg/mL Total Protein 8.1 6.0-8.3 g/dL Albumin 2.7 L 3.5-5.0 g/dL Current Medications Medications (Trade) Dose Ordered Sig/Julita Route PRN Reason Start Time Stop Time Status Last Admin Dose Admin Acetaminophen (TYLenol 650MG SUPPOSITORY) 650 mg Q6H PRN RC MILD PAIN (1-3) 05/23/24 20:30 06/22/24 20:29 Albuterol (DUOneb) 1 udvial [id number] IH 05/24/24 00:00 06/23/24 00:00 05/25/24 11:05 1 UDVIAL Azithromycin 250 ml @ 250 mls/hr Q24H IVPB 05/24/24 17:00 05/24/24 14:41 DC Azithromycin 250 ml @ 250 mls/hr Q24H STAT IVPB 05/23/24 17:17 05/24/24 14:41 DC 05/23/24 17:45 250 MLS/HR Cefepime HCl (MAXipime 2 gm vial) 2 gm Q12H IVPB 05/24/24 15:00 06/03/24 14:59 05/25/24 02:19 2 GM Ceftriaxone Sodium (ROCEphine 1G INJ) 1 gm Q24H IVPB 05/24/24 17:30 05/24/24 14:41 DC Doxycycline Hyclate 250 ml @ 125 mls/hr Q12H IV 05/24/24 16:30 06/03/24 16:29 05/25/24 03:54 125 MLS/HR Enoxaparin Sodium (Lovenox) 40 mg Q24H SQ 05/23/24 21:00 06/22/24 20:59 05/24/24 21:04 40 MG Famotidine (Pepcid 20mg Vial) 20 mg DAILY IV 05/24/24 09:00 06/23/24 08:59 05/25/24 08:49 20 MG Guaifenesin/ Dextromethorphan (RobiTUSSin DM 200/20MG 10ML) 10 ml Q4H PRN PO COUGH 05/23/24 20:30 06/22/24 20:29 05/24/24 21:03 10 ML Levofloxacin/ Dextrose 100 ml @ 100 mls/hr Q24H IV 05/24/24 15:00 05/24/24 16:16 DC Methylprednisolone Sodium Succinate (Solu-medROL 40MG) 40 mg Q8H IVP 05/24/24 01:00 06/23/24 00:59 05/25/24 08:49 40 MG Ondansetron HCl (zoFRAN 4MG INJ) 4 mg Q6H PRN IV NAUSEA/VOMITING 05/23/24 20:30 06/22/24 20:29 DIAGNOSTICS / RADIOLOGY: [ ] ASSESSMENT: Acute hypoxemic respiratory failure, POA Pneumonia, POA] Leukocytosis POA PLAN: Patient is in PCU on telemetry monitoring. on 100% NRB now and was on BIAP overnight /wean down as tolerated DuoNebs every 6 hours Patient received Solu-Medrol 125 mg IV times 1. Continue Solu-Medrol 40 mg IV every 8 hours. Respiratory culture, follow up with the results. Empiric antibiotic therapy with azithromycin and Rocephin. Supportive treatment with Tylenol. Keep patient NPO while on BiPAP. Okay for patient to take medications with small sips of water. GI prophylaxis, famotidine 20 mg IV once daily. DVT prophylaxis, Lovenox 40 mg subcutaneously once daily. Further orders to follow based on the above results CLINTON RODRÍGUEZ MD May 25, 2024 13:08
--- NOTE | 2024-05-25 16:08 | NUR ---
INITIAL ASSESSMENT Patient lives alone but her children take turns staying with her. She has no home services. DME: rollator, wheelchair, cane, glucometer (uses insulin), BPM, shower chair, O2 concentrator. Patient needs help with ADLs and doesn't drive. Family assists as needed. PCP is Dr. Andrew Zapata. Pharmacy is [facility] located on [address] in [place]. Patient has no issues with having stable alf to live in or transportation. She lived in her home for some time. No concerns voiced regarding not having enough food in the home. No safety concerns voiced regarding returning home. DCP is home. Addendum: 05/25/24 at 1611 by EMILIE CHOPRA Amended: Links added.
--- NOTE | 2024-05-25 16:11 | NUR ---
CORRECT INITIAL ASSESSMENT - DISREGARD THE PREVIOUS Patient lives with son, Dagoberto Salcido. She has no home services. DME: BPM, oximeter, nebulizer. Patient is able to complete ADLs and drives. PCP is Dr. Stu Foss. Pharmacy is [facility] in [place]. Patient has no issues with having stable chcf to live in or transportation. She and family have lived in their home for some time. No concerns voiced regarding not having enough food in the home. No safety concerns voiced regarding returning home. DCP is home.
[2024-05-25] MEDS ORDERED: metRONIDazole 500MG/100ML BAG IV SCH (22:00)
[2024-05-25] MEDS: Solu-medROL 40MG VIAL IVP SCH (22:17)
[2024-05-26] VITALS (18 sets, daily range): BP systolic 107–132; BP diastolic 56–81; PULSE 60–91; RESP 18–34; TEMP 97.6–99.2; O2SAT 96–100
[2024-05-26 04:18] LABS: HEMATOCRIT 35.1 % (36-48); IMMATURE GRANULOCYTE ABSOLUTE 0.04 K/uL (0-1); LYMPHOCYTES # (AUTO) 0.6 K/uL (1.0-4.8); LYMPHOCYTES % (AUTO) 5.3 % (21.0-51.0); MEAN CORPUSCULAR HEMOGLOBIN 32.5 pg (27.0-33.0); MEAN CORPUSCULAR VOLUME 98.3 fL (79-99); MONOCYTES # (AUTO) 0.5 K/uL (0.1-1.0); MONOCYTES % (AUTO) 4.5 % (3.0-13.0); NEUTROPHILS # (AUTO) 9.9 K/uL (1.8-7.7); NEUTROPHILS % (AUTO) 89.8 % (40.0-77.0); PLATELET COUNT (AUTO) 298 K/uL (130-400); RED BLOOD CELL COUNT(AUTO) 3.57 MIL/uL (4.00-5.50); RED CELL DISTRIBUTION WIDTH 11.4 % (11.0-15.5)
[2024-05-26 04:31] LABS: ALBUMIN 2.3 g/dL (3.5-5.0); BILIRUBIN,TOTAL 0.5 mg/dL (0.2-1.0); CREATININE 0.5 mg/dL (0.5-1.0); POTASSIUM 4.3 mmol/L (3.5-5.1); TOTAL PROTEIN, SERUM 7.3 g/dL (6.0-8.3)
[2024-05-26 04:57] LABS: HIV 1&2 ANTIBODY Preliminary Positive (Negative); HIV-1 p24 Antigen Non-Reactive (Negative)
[2024-05-26] MEDS: fluCONazole 200 MG/NS 100 ML 100 ML IV SCH (08:36)
--- NOTE | 2024-05-26 15:22 | PN ---
[facility] PROGRESS NOTE Date Patient Seen: May 26, 2024 Time of Visit: 15:12 Supervising Physician: Dr. Moncada Primary Care Physician: Stu Foss MD Outpatient Specialists: [ ] Inpatient Consults: Pulmonology PROBLEM LIST: Acute hypoxemic respiratory failure. Left lower lobe pneumonia failed outpatient therapy. Sepsis suspected from lung source. MRSA cultured in sputum. Betty albicans culture in his sputum Concern for PCP pneumonia, we will order HIV testing. Suspected urinary tract infection. Morbid obesity BMI of 32.3 INTERVAL HISTORY: 05/25/2024: At the time of my evaluation, the patient was lying in bed. She is currently on a non-rebreather mask. She reports feeling slightly better today. No laboratory data for review today. No new complaint. 24 hour I & O: Urine output of a 350 mL with a negative balance of 300 ML Pressors: None Drips: None Antibiotics/antiviral: Cefepime and doxycycline Microbiology data: Betty albicans growth in sputum. Imaging data: No new imaging for review today Pathology data: None 05/26/2024: At the time of my evaluation, the patient is seen sitting up to the reclining chair. She reports feeling much better today. She continues on opposite then supplementation on a non-rebreather mask. No febrile events documented overnight. The staff nurse reports no acute event. REVIEW OF SYSTEMS: 12 point ROS reviewed with patient. Pertinent positives mentioned above. Otherwise negative. PHYSICAL EXAM: GENERAL: alert, weak, awake oriented x 3 HEENT: EOMI, Sclera non icteric, moist mucosa NECK: Supple, no JVD, trachea midline LUNGS: Diminished lung sounds. No wheezes HEART: Regular rate and rhythm. Normal S1 and S2, without murmurs ABD: Abdomen soft, nontender. Bowel sounds present EXT: No clubbing cyanosis or edema NEURO: Alert and oriented to person, follows commands Vital Signs (last 8hr) Date Time Temp Pulse Resp B/P (MAP) Pulse Ox O2 Delivery O2 Flow Rate FiO2 05/26/24 11:44 66 21 05/26/24 11:04 98.8 65 18 117/71 98 Venti Mask 05/26/24 08:00 100 Non-Rebreather+ 15 100 05/26/24 07:46 64 25 108/56 99 Venti Mask 15.0 05/26/24 07:14 75 27 Venti Mask 15.0 50 LABS: Hematology Labs: Test 05/26/24 03:52 Range/Units White Blood Count 11.0 H 4.8-10.8 K/uL Red Blood Count 3.57 L 4.00-5.50 MIL/uL Hemoglobin 11.6 L 12.0-16.0 g/dL Hematocrit 35.1 L 36-48 % Mean Corpuscular Volume 98.3 79-99 fL Mean Corpuscular Hemoglobin 32.5 27.0-33.0 pg Mean Corpuscular Hemoglobin Concent 33.0 32.0-36.0 g/dL Red Cell Distribution Width 11.4 11.0-15.5 % Platelet Count 298 130-400 K/uL Mean Platelet Volume 9.3 7.5-10.5 fL Immature Granulocyte % (Auto) 0.4 0-1 % Neutrophils (%) (Auto) 89.8 H 40.0-77.0 % Lymphocytes (%) (Auto) 5.3 L 21.0-51.0 % Monocytes (%) (Auto) 4.5 3.0-13.0 % Eosinophils (%) (Auto) 0.0 0.0-8.0 % Basophils (%) (Auto) 0.0 0.0-5.0 % Neutrophils # (Auto) 9.9 H 1.8-7.7 K/uL Lymphocytes # (Auto) 0.6 L 1.0-4.8 K/uL Monocytes # (Auto) 0.5 0.1-1.0 K/uL Eosinophils # (Auto) 0.00 0.00-0.70 K/uL Basophils # (Auto) 0.00 0.00-0.20 K/uL Absolute Immature Granulocyte (auto 0.04 0-1 K/uL Nucleated Red Blood Cells 0.0 0.0-0.19 % Chemistry Labs: Test 05/26/24 03:52 Range/Units Sodium Level 144 136-145 mmol/L Potassium Level 4.3 3.5-5.1 mmol/L Chloride Level 107 101-111 mmol/L Carbon Dioxide Level 29 21-32 mmol/L Blood Urea Nitrogen 29 H 7-18 mg/dL Creatinine 0.5 0.5-1.0 mg/dL Glomerular Filtration Rate Calc 114 >90 mL/min Random Glucose 140 H 70-105 mg/dL Total Calcium 9.1 8.5-10.1 mg/dL Total Bilirubin 0.5 0.2-1.0 mg/dL Aspartate Amino Transf (AST/SGOT) 32 10-37 U/L Alanine Aminotransferase (ALT/SGPT) 56 12-78 U/L Alkaline Phosphatase 60 50-136 U/L Total Protein 7.3 6.0-8.3 g/dL Albumin 2.3 L 3.5-5.0 g/dL DIAGNOSTICS / RADIOLOGY RESULTS: [ ] PLAN For now, going to continue current management for the patient. We are going to request a CT angio of the chest rule out a PE and at the same time evaluate more in the lung field. Because the patient already failed antibiotic therapy with Zithromax in the outpatient setting I am going to change antibiotic therapy to cefepime and Levaquin. I am going to request a to read evaluate the gas exchange as the patient has been on BiPAP therapy. The patient will remain on steroid therapy with Solu-Medrol 40 IV Q 8 we will monitor the patient's progress and response to management. Appreciate the opportunity to participate inpatient care. We will continue to follow along with you and provide advice as necessary. 05/25/2024: For now, going to continue current management for the patient. We will continue to monitor the patient's respiratory status and supplement as necessary. We will continue with pulmonary toileting. I am going to continue antibiotic therapy as ordered. We will add fluconazole to the regimen. We will also order IS therapy. We will continue to follow the hemodynamics and treat accordingly. Patient continue to feed orally. We will order a HIV screen, mycoplasma pneumoniae, Legionella and strep pneumo antigen. We will continue to monitor the coags. We will continue to address rehabilitative needs once her acute condition is stabilized. We will monitor the patient's progress and response to management. We will continue to provide general supportive care, GI and DVT prophylaxis. Further orders per attending MD and hospital course. 05/26/2024: For now, we are going to continue current management for the patient and added bactrim pending HIV testing. Going to continue antibiotic coverage as ordered. We will monitor her oxygen saturation and we will adjust as necessary. We will continue to provide general supportive care, GI and DVT prophylaxis. Further orders per attending MD and hospital course. NEURO: Minimize central acting medications as possible. Maintain fall precautions, adequate lighting during the day PULMONARY: Supplemental 02 as needed. Maintain aspiration precautions at all times. Because of the concern of PCP pneumonia and HIV test was ordered and is pending confirmation. I am going to request a CD4 count in the meantime. Respiratory culture resulted positive for MRSA and Betty albicans. I am going to consult Infectious Disease specialist to guide antibiotic therapy. CARDIOVASCULAR: Follow hemodynamics. Vital signs per facility protocol. GI & NUTRITION: Continue with nutritional support. Continue stool softeners and laxatives as needed. KIDNEYS & ELECTROLYTES: Strict monitoring of intake, output and overall fluid balance. Avoid nephrotoxic medications to the extent possible. Medications to be dosed according to renal function. Monitor electrolytes and replace as needed ENDOCRINE: Maintain blood glucose between 100-180 at all times. Hypoglycemia protocol in place INFECTIOUS DISEASE: Trend temperature, WBC and procalcitonin level Follow cultures, deescalate antibiotics as soon as possible. Panculture if new onset fever Current antibiotic course Cefepime, doxycycline, Fluconazole, we will add Bactrim. We will follow the indication of the Infectious Disease specialist. ONCOLOGY/HEMATOLOGY/COAGULATION: Monitor for s/s of bleeding Monitor hemoglobin, coagulation studies as needed SKIN: Pressure ulcer prevention per facility protocol Specialty mattress ORTHO/REHAB: Continue PT/OT Prophylaxis: Continue GI and DVT prophylaxis Code Status: Full Resuscitation Disposition: TBD Other: Total patient care time exceeds 35 minutes excluding all procedures. DAYRON RUBIN NP May 26, 2024 15:22 ARNOLD MONCADA MD May 27, 2024 13:15
[2024-05-26] MEDS: sulfaMETHOX-TMP DS 800/160 TAB PO SCH (21:20)
[2024-05-27] VITALS (16 sets, daily range): BP systolic 131–147; BP diastolic 51–78; PULSE 57–112; RESP 18–33; TEMP 98.3–98.7; O2SAT 92–99
[2024-05-27 04:23] LABS: HEMATOCRIT 33.6 % (36-48); IMMATURE GRANULOCYTE ABSOLUTE 0.06 K/uL (0-1); LYMPHOCYTES # (AUTO) 0.4 K/uL (1.0-4.8); LYMPHOCYTES % (AUTO) 4.1 % (21.0-51.0); MEAN CORPUSCULAR HEMOGLOBIN 32.3 pg (27.0-33.0); MEAN CORPUSCULAR HGB CONC 33.3 g/dL (32.0-36.0); MEAN CORPUSCULAR VOLUME 96.8 fL (79-99); MONOCYTES # (AUTO) 0.5 K/uL (0.1-1.0); MONOCYTES % (AUTO) 5.4 % (3.0-13.0); NEUTROPHILS # (AUTO) 8.4 K/uL (1.8-7.7); NEUTROPHILS % (AUTO) 89.9 % (40.0-77.0); PLATELET COUNT (AUTO) 268 K/uL (130-400); RED BLOOD CELL COUNT(AUTO) 3.47 MIL/uL (4.00-5.50); RED CELL DISTRIBUTION WIDTH 11.2 % (11.0-15.5); WHITE BLOOD COUNT (AUTO) 9.4 K/uL (4.8-10.8)
[2024-05-27 04:29] LABS: CREATININE 0.5 mg/dL (0.5-1.0); POTASSIUM 4.5 mmol/L (3.5-5.1)
--- NOTE | 2024-05-27 09:17 | PN ---
[facility] PROGRESS NOTE Date of Service: May 27, 2024 Time of Service: 09:16 SUBJECTIVE: [ ] Ms. Abdullahi is a 49-year-old female that was seen and examined today on 05/23/2024. Patient is a good historian and personal health. Patient's son Dagoberto Salcido is at bedside. Patient states that she came to the emergency department with a chief complaint of shortness of breath. Onset was two weeks ago. Location is to lungs. Duration is on and off. Character is described as "easily running out of air." Initially shortness and breath was only aggravated with climbing one or two flights of stairs but symptoms have progressively worsened and patient becomes short of breath even standing or walking short distances. There was no alleviating factors however previously symptoms were being controlled with daily morning albuterol nebulizer treatments. Patient denies any associated chest pain or dizziness. Patient reports an episode of COVID in December 2023. emergency department CBC unremarkable, chemistry unremarkable, urinalysis unremarkable, influenza screen negative, COVID negative, blood gas shows PO2 less than 45. Chest x-ray shows left lower lung pneumonia and minimal right lung base atelectasis. Upon arrival to the emergency department patient was placed on a BiPAP due to respiratory distress. 05/24/2024-patient was seen and examined at the bedside, still on BiPAP. Patient is able to speak, and says she feels much better than before. Patient says after COVID in December she developed severe bronchitis and she was on Solu-Medrol and albuterol, which did not help her much and later she had high fevers and shortness of breath which is when she came to the ED.Vitals afebrile pulse 76, RR 38 tachypneic , blood pressure 115/68, pulse oxygen 99 on BiPAP flow of 60. On ABG pH 7.47, pCO2 29, PO2 109.4, oxygen saturation 98.3. [id number] potassium 4.1 BUN15 creatinine 0.5 GFR 114. We will closely monitor the patient. Galley Cook consult noted waiting on the recommendation 05/25/24 patient was seen and examined and case discussed with RN and family by the bedside. She was breathing better today. She has been on BiPAP all night but now he was on 100% non-rebreather with further efforts to continue to wean the oxygen requirements down. 05/27/24 patient is seen and examined at bedside, acute events overnight, case discussed with the RN, BP 131/64, afebrile, saturating 96-97% via Ventimask, FiO2 40%. The patient admits cough productive of clear phlegm. Serology tests reviewed, HIV preliminary positive, discussed with the patient. 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 We will continue the patient on IV antibiotics, continue fluconazole, continue to follow Pulmonary and ID input and recommendations. After provided in the preliminary results of HIV test, she denies any suicidal or homicidal ideations. REVIEW OF SYSTEMS CONSTITUTIONAL: Respiratory distress on BiPAP Denies fevers, chills, or night sweats. No unintentional weight loss reported. NEUROLOGICAL: Denies headache, amaurosis fugax, motor weakness, sensory deficit, vertigo/spinning sensation, gait abnormalities, or tremors. ENT: No hearing loss, otalgia, otorrhea, rhinitis, rhinorrhea, hoarseness, or sore throat. CARDIOVASCULAR: Denies any exertional angina, dyspnea on exertion, orthopnea, paroxysmal nocturnal dyspnea, palpitations, life-threatening arrhythmias, claudication. PULMONARY: Denies any shortness of breath, cough, phlegm/sputum, hemoptysis, pleuritic chest pain. SLEEP: Denies morning headaches, daytime somnolence or napping. Denies difficulty falling asleep, staying asleep, waking from sleep. Denies knowledge of snoring. GASTROINTESTINAL: Denies any type of dysphagia to either liquids or solids. Denies nausea, vomiting, pyrosis, early satiety, abdominal pain, diarrhea, co nstipation, or changes in stool consistency or caliber. Denies coffee-ground emesis, hematemesis, hematochezia, or melanotic stools. GENITOURINARY: Denies frequency, urgency, nocturia, hematuria or incontinence (Storage/Irritative symptoms.) Low urinary stream, straining to void, urinary intermittency or hesitancy, splitting of the voiding stream, terminal dribbling. ENDOCRINOLOGIC: Denies polyuria, polydipsia, polyphagia or heat/cold intolerances. HEMATOLOGIC: Denies thrombophilia/previous clots, or coagulopathy/bleeding disorders. ONCOLOGIC: Denies personal history of malignancy. DERMATOLOGIC: Denies rashes or pruritus. PSYCHIATRIC: Denies any suicidal or homicidal ideation. Denies hallucinations. PHYSICAL EXAM GENERAL APPEARANCE: The patient is awake, alert, and oriented, in no acute car diopulmonary distress. NEUROLOGICAL: Cranial nerves II-XII grossly intact. Motor is 5/5 in bilateral upper and lower extremities proximal to distal. No sensory deficits. HEENT: Face is symmetric. Pupils are equal and reactive. Extraocular movements are intact. NECK: Supple. No JVD. No thyromegaly. No submental, submandibular, pre- /postauricular, occipital or supraclavicular lymphadenopathy. CHEST: Normal chest expansion. No Telemetry. LUNGS: Absence of any rales, rhonchi or any wheezing. CARDIOVASCULAR: Regular. S1 and S2 normal. No appreciable rubs, murmurs or gallops. ABDOMEN: Soft, nontender, and nondistended. There is no rebound, voluntary guarding, or rigidity. : Deferred. No Souza. EXTREMITIES: Non-edematous and not cyanotic. No clubbing. Good capillary refill. SKIN: No skin breakdown. Vital Signs (last 8hr) Date Time Temp Pulse Resp B/P (MAP) Pulse Ox O2 Delivery O2 Flow Rate FiO2 05/27/24 07:40 98.6 57 20 131/64 96 Nasal Cannula 3.0 05/27/24 07:07 65 32 05/27/24 07:05 71 33 60 05/27/24 03:16 98.2 68 20 131/78 97 BIPAP 05/27/24 02:03 26 60 LABS: Laboratory: Test 05/27/24 04:01 05/26/24 03:52 Range/Units White Blood Count 9.4 4.8-10.8 K/uL Red Blood Count 3.47 L 4.00-5.50 MIL/uL Hemoglobin 11.2 L 12.0-16.0 g/dL Hematocrit 33.6 L 36-48 % Mean Corpuscular Volume 96.8 79-99 fL Mean Corpuscular Hemoglobin 32.3 27.0-33.0 pg Mean Corpuscular Hemoglobin Concent 33.3 32.0-36.0 g/dL Red Cell Distribution Width 11.2 11.0-15.5 % Platelet Count 268 130-400 K/uL Mean Platelet Volume 9.5 7.5-10.5 fL Immature Granulocyte % (Auto) 0.6 0-1 % Neutrophils (%) (Auto) 89.9 H 40.0-77.0 % Lymphocytes (%) (Auto) 4.1 L 21.0-51.0 % Monocytes (%) (Auto) 5.4 3.0-13.0 % Eosinophils (%) (Auto) 0.0 0.0-8.0 % Basophils (%) (Auto) 0.0 0.0-5.0 % Neutrophils # (Auto) 8.4 H 1.8-7.7 K/uL Lymphocytes # (Auto) 0.4 L 1.0-4.8 K/uL Monocytes # (Auto) 0.5 0.1-1.0 K/uL Eosinophils # (Auto) 0.00 0.00-0.70 K/uL Basophils # (Auto) 0.00 0.00-0.20 K/uL Absolute Immature Granulocyte (auto 0.06 0-1 K/uL Nucleated Red Blood Cells 0.0 0.0-0.19 % Sodium Level 142 136-145 mmol/L Potassium Level 4.5 3.5-5.1 mmol/L Chloride Level 107 101-111 mmol/L Carbon Dioxide Level 29 21-32 mmol/L Blood Urea Nitrogen 22 H 7-18 mg/dL Creatinine 0.5 0.5-1.0 mg/dL Glomerular Filtration Rate Calc 114 >90 mL/min Random Glucose 159 H 70-105 mg/dL Total Calcium 8.5 8.5-10.1 mg/dL Total Bilirubin 0.5 0.2-1.0 mg/dL Aspartate Amino Transf (AST/SGOT) 32 10-37 U/L Alanine Aminotransferase (ALT/SGPT) 56 12-78 U/L Alkaline Phosphatase 60 50-136 U/L Total Protein 7.3 6.0-8.3 g/dL Albumin 2.3 L 3.5-5.0 g/dL HIV (1&2) Antibody Preliminary Positive *A Negative HIV P24 Antigen, Qualitative Non-Reactive Negative Current Medications Medications (Trade) Dose Ordered Sig/Julita Route PRN Reason Start Time Stop Time Status Last Admin Dose Admin Acetaminophen (TYLenol 650MG SUPPOSITORY) 650 mg Q6H PRN RC MILD PAIN (1-3) 05/23/24 20:30 06/22/24 20:29 Albuterol (DUOneb) 1 udvial [id number] IH 05/24/24 00:00 06/23/24 00:00 05/27/24 07:05 1 UDVIAL Azithromycin 250 ml @ 250 mls/hr Q24H IVPB 05/24/24 17:00 05/24/24 14:41 DC Azithromycin 250 ml @ 250 mls/hr Q24H STAT IVPB 05/23/24 17:17 05/24/24 14:41 DC 05/23/24 17:45 250 MLS/HR Cefepime HCl (MAXipime 2 gm vial) 2 gm Q12H IVPB 05/24/24 15:00 06/03/24 14:59 05/27/24 02:18 2 GM Ceftriaxone Sodium (ROCEphine 1G INJ) 1 gm Q24H IVPB 05/24/24 17:30 05/24/24 14:41 DC Doxycycline Hyclate 250 ml @ 125 mls/hr Q12H IV 05/24/24 16:30 06/03/24 16:29 05/27/24 04:52 125 MLS/HR Enoxaparin Sodium (Lovenox) 40 mg Q24H SQ 05/23/24 21:00 06/22/24 20:59 05/26/24 21:21 40 MG Famotidine (Pepcid 20mg Vial) 20 mg DAILY IV 05/24/24 09:00 06/23/24 08:59 05/27/24 09:07 20 MG Fluconazole/ Sodium Chloride 100 ml @ 100 mls/hr DAILY IV 05/26/24 09:00 06/25/24 08:59 05/27/24 09:07 100 MLS/HR Guaifenesin/ Dextromethorphan (RobiTUSSin DM 200/20MG 10ML) 10 ml Q4H PRN PO COUGH 05/23/24 20:30 06/22/24 20:29 05/25/24 17:28 10 ML Levofloxacin/ Dextrose 100 ml @ 100 mls/hr Q24H IV 05/24/24 15:00 05/24/24 16:16 DC Methylprednisolone Sodium Succinate (Solu-medROL 40MG) 40 mg Q8H IVP 05/24/24 01:00 05/25/24 21:51 DC 05/25/24 17:28 40 MG Methylprednisolone Sodium Succinate (Solu-medROL 40MG) 60 mg Q6H IVP 05/25/24 22:00 06/24/24 21:59 05/27/24 09:07 60 MG Metronidazole/ Sodium Chloride (flaGYL) 500 mg Q8H IV 05/25/24 22:00 05/25/24 21:56 DC Ondansetron HCl (zoFRAN 4MG INJ) 4 mg Q6H PRN IV NAUSEA/VOMITING 05/23/24 20:30 06/22/24 20:29 Trimethoprim/ Sulfamethoxazole (BactRIM DS) 1 tab BID PO 05/26/24 21:00 06/05/24 20:59 05/27/24 09:07 1 TAB DIAGNOSTICS / RADIOLOGY: [ ] ASSESSMENT: Acute hypoxemic respiratory failure, POA Pneumonia, POA] Leukocytosis POA PLAN: Patient is in PCU on telemetry monitoring. on 100% NRB now and was on BIAP overnight /wean down as tolerated DuoNebs every 6 hours Patient received Solu-Medrol 125 mg IV times 1. Continue Solu-Medrol 40 mg IV every 8 hours. Respiratory culture, follow up with the results. Empiric antibiotic therapy with azithromycin and Rocephin. Supportive treatment with Tylenol. Keep patient NPO while on BiPAP. Okay for patient to take medications with small sips of water. GI prophylaxis, famotidine 20 mg IV once daily. DVT prophylaxis, Lovenox 40 mg subcutaneously once daily. Further orders to follow based on the above results Disposition: Remains admitted to the PCU, continue Ventimask, continue antibiotics, continue fluconazole, preliminary report for HIV, positive, continue to follow Pulmonary and ID input and recommendation. Plan of action discussed with the patient, all questions answered, agreed and understood the information provided. Total PCU time spent greater than 30 minutes. GAIL WALDRON MD May 27, 2024 09:17
--- NOTE | 2024-05-27 10:26 | PN ---
[facility] PROGRESS NOTE Date Patient Seen: May 27, 2024 Time of Visit: 10:26 Supervising Physician: Dr. Ramiro Kohler Primary Care Physician: Stu Foss MD Outpatient Specialists: [ ] Inpatient Consults: Pulmonology PROBLEM LIST: Acute hypoxemic respiratory failure. Left lower lobe pneumonia failed outpatient therapy. Sepsis suspected from lung source. MRSA cultured in sputum. Betty albicans culture in his sputum Concern for PCP pneumonia, we will order HIV testing. Suspected urinary tract infection. Morbid obesity BMI of 32.3 INTERVAL HISTORY: 05/25/2024: At the time of my evaluation, the patient was lying in bed. She is currently on a non-rebreather mask. She reports feeling slightly better today. No laboratory data for review today. No new complaint. 24 hour I & O: Urine output of a 350 mL with a negative balance of 300 ML Pressors: None Drips: None Antibiotics/antiviral: Cefepime and doxycycline Microbiology data: Betty albicans growth in sputum. Imaging data: No new imaging for review today Pathology data: None 05/26/2024: At the time of my evaluation, the patient is seen sitting up to the reclining chair. She reports feeling much better today. She continues on opposite then supplementation on a non-rebreather mask. No febrile events documented overnight. The staff nurse reports no acute event. 05/27/2024: At the time of my evaluation, the patient was lying in bed. The staff nurse reports no acute events overnight. The patient remains on nasal cannula four oxygen supplementation. She is hemodynamically stable. The patient remains afebrile and continues on antibiotic course followed by ID recommendation. No other complaint. REVIEW OF SYSTEMS: 12 point ROS reviewed with patient. Pertinent positives mentioned above. Otherwise negative. PHYSICAL EXAM: GENERAL: Alert, weak, awake oriented x 3 HEENT: EOMI, Sclera non icteric, moist mucosa NECK: Supple, no JVD, trachea midline LUNGS: Diminished lung sounds. No wheezes HEART: Regular rate and rhythm. Normal S1 and S2, without murmurs ABD: Abdomen soft, nontender. Bowel sounds present EXT: No clubbing cyanosis or edema NEURO: Alert and oriented to person, follows commands Vital Signs (last 8hr) Date Time Temp Pulse Resp B/P (MAP) Pulse Ox O2 Delivery O2 Flow Rate FiO2 05/27/24 09:17 96 Venti Mask+ 12 40 05/27/24 07:40 98.6 57 20 131/64 96 Nasal Cannula 3.0 05/27/24 07:17 65 30 Venti Mask 12.0 40 05/27/24 07:07 65 32 05/27/24 07:05 71 33 60 05/27/24 03:16 98.2 68 20 131/78 97 BIPAP LABS: Hematology Labs: Test 05/27/24 04:01 Range/Units White Blood Count 9.4 4.8-10.8 K/uL Red Blood Count 3.47 L 4.00-5.50 MIL/uL Hemoglobin 11.2 L 12.0-16.0 g/dL Hematocrit 33.6 L 36-48 % Mean Corpuscular Volume 96.8 79-99 fL Mean Corpuscular Hemoglobin 32.3 27.0-33.0 pg Mean Corpuscular Hemoglobin Concent 33.3 32.0-36.0 g/dL Red Cell Distribution Width 11.2 11.0-15.5 % Platelet Count 268 130-400 K/uL Mean Platelet Volume 9.5 7.5-10.5 fL Immature Granulocyte % (Auto) 0.6 0-1 % Neutrophils (%) (Auto) 89.9 H 40.0-77.0 % Lymphocytes (%) (Auto) 4.1 L 21.0-51.0 % Monocytes (%) (Auto) 5.4 3.0-13.0 % Eosinophils (%) (Auto) 0.0 0.0-8.0 % Basophils (%) (Auto) 0.0 0.0-5.0 % Neutrophils # (Auto) 8.4 H 1.8-7.7 K/uL Lymphocytes # (Auto) 0.4 L 1.0-4.8 K/uL Monocytes # (Auto) 0.5 0.1-1.0 K/uL Eosinophils # (Auto) 0.00 0.00-0.70 K/uL Basophils # (Auto) 0.00 0.00-0.20 K/uL Absolute Immature Granulocyte (auto 0.06 0-1 K/uL Nucleated Red Blood Cells 0.0 0.0-0.19 % Chemistry Labs: Test 05/27/24 04:01 05/26/24 03:52 Range/Units Sodium Level 142 136-145 mmol/L Potassium Level 4.5 3.5-5.1 mmol/L Chloride Level 107 101-111 mmol/L Carbon Dioxide Level 29 21-32 mmol/L Blood Urea Nitrogen 22 H 7-18 mg/dL Creatinine 0.5 0.5-1.0 mg/dL Glomerular Filtration Rate Calc 114 >90 mL/min Random Glucose 159 H 70-105 mg/dL Total Calcium 8.5 8.5-10.1 mg/dL Total Bilirubin 0.5 0.2-1.0 mg/dL Aspartate Amino Transf (AST/SGOT) 32 10-37 U/L Alanine Aminotransferase (ALT/SGPT) 56 12-78 U/L Alkaline Phosphatase 60 50-136 U/L Total Protein 7.3 6.0-8.3 g/dL Albumin 2.3 L 3.5-5.0 g/dL DIAGNOSTICS / RADIOLOGY RESULTS: [ ] PLAN For now, going to continue current management for the patient. We are going to request a CT angio of the chest rule out a PE and at the same time evaluate more in the lung field. Because the patient already failed antibiotic therapy with Zithromax in the outpatient setting I am going to change antibiotic therapy to cefepime and Levaquin. I am going to request a to read evaluate the gas exchange as the patient has been on BiPAP therapy. The patient will remain on steroid therapy with Solu-Medrol 40 IV Q 8 we will monitor the patient's progress and response to management. Appreciate the opportunity to participate inpatient care. We will continue to follow along with you and provide advice as necessary. 05/25/2024: For now, going to continue current management for the patient. We will continue to monitor the patient's respiratory status and supplement as necessary. We will continue with pulmonary toileting. I am going to continue antibiotic therapy as ordered. We will add fluconazole to the regimen. We will also order IS therapy. We will continue to follow the hemodynamics and treat accordingly. Patient continue to feed orally. We will order a HIV screen, mycoplasma pneumoniae, Legionella and strep pneumo antigen. We will continue to monitor the coags. We will continue to address rehabilitative needs once her acute condition is stabilized. We will monitor the patient's progress and response to management. We will continue to provide general supportive care, GI and DVT prophylaxis. Further orders per attending MD and hospital course. 05/26/2024: For now, we are going to continue current management for the patient. Going to continue antibiotic coverage as ordered. We will monitor her oxygen saturation and we will adjust as necessary. We will continue to provide general supportive care, GI and DVT prophylaxis. Further orders per attending MD and hospital course. 05/27/2024: For now, we are going to continue current management for the patient. We are going to continue with oxygen supplementation and we will adjust as necessary. The patient has Acapella at the bedside and has been ins tructed on its use. We are going to continue with steroid dose therapy and antitussive. We will continue antibiotic therapy as ordered. We will continue to provide general supportive care, GI and DVT prophylaxis. We will monitor the patient's progress and response to management. Further orders per attending MD and hospital course. NEURO: Minimize central acting medications as possible. Maintain fall precautions, adequate lighting during the day PULMONARY: Supplemental 02 as needed. Maintain aspiration precautions at all times. Because of the concern of PCP pneumonia and HIV test was ordered and is pending confirmation. I am going to request a CD4 count in the meantime. Respiratory culture resulted positive for MRSA and Betty albicans. I am going to consult Infectious Disease specialist to guide antibiotic therapy. CARDIOVASCULAR: Follow hemodynamics. Vital signs per facility protocol. GI & NUTRITION: Continue with nutritional support. Continue stool softeners and laxatives as needed. KIDNEYS & ELECTROLYTES: Strict monitoring of intake, output and overall fluid balance. Avoid nephrotoxic medications to the extent possible. Medications to be dosed according to renal function. Monitor electrolytes and replace as needed ENDOCRINE: Maintain blood glucose between 100-180 at all times. Hypoglycemia protocol in place INFECTIOUS DISEASE: Trend temperature, WBC and procalcitonin level Follow cultures, deescalate antibiotics as soon as possible. Panculture if new onset fever Current antibiotic course Cefepime, doxycycline, Fluconazole, we will add Bactrim. We will follow the indication of the Infectious Disease specialist. ONCOLOGY/HEMATOLOGY/COAGULATION: Monitor for s/s of bleeding Monitor hemoglobin, coagulation studies as needed SKIN: Pressure ulcer prevention per facility protocol Specialty mattress ORTHO/REHAB: Continue PT/OT Prophylaxis: Continue GI and DVT prophylaxis Code Status: Full Resuscitation Disposition: TBD Other: Total patient care time exceeds 35 minutes excluding all procedures. DAYRON RUBIN NP May 27, 2024 10:26
[2024-05-27 10:53] LABS: ABG BASE EXCESS 0.2 mmol/L (-2.0-3.0); ABG HCO3 23.1 mmol/L (21.0-28.0); ABG OXYGEN SATURATION 94.1 % (94.0-98.0); ABG PCO2 33 mmHg (32-45); ABG PH 7.466 (7.350-7.450); PO2, ARTERIAL BG 65.2 mmHg (83.0-108.0); VENT MODE, BG VM (ROOM AIR)
--- NOTE | 2024-05-27 11:04 | NUR ---
ABG- RESULTS RESULTS GIVEN TO MEL PT PLACED ON 10L OXYMIZER... Addendum: 05/27/24 at 1105 by WENDY VÁZQUEZ RN RN Amended: Links added.
--- NOTE | 2024-05-27 22:42 | PN ---
INFECTIOUS DISEASE FOLLOWUP NOTE DATE OF SERVICE: 05/27/2024 SUBJECTIVE: The patient is seen and examined at bedside. No fever or chills. The patient still has some cough. No hemoptysis or pleuritic pain. No shortness of breath, no palpitation or orthopnea. No dysuria, no hematuria. No depression, no suicidal ideation. PHYSICAL EXAMINATION: VITAL SIGNS: Temperature 98.3. EYES: No icterus. Pupils equal and reactive. HENT: No oral thrush seen. Moist oral mucosa. NECK: Supple. No JVD or thyromegaly. LUNGS: Crackles bilaterally, no rhonchi. CARDIOVASCULAR: S1, S2 regular. No murmur heard. ABDOMEN: Obese, soft, nontender. Bowel sounds present. CENTRAL NERVOUS SYSTEM: Awake, alert, oriented x 3. No focal deficits. SKIN: No rashes, no itchiness. LYMPHATIC: No peripheral lymphadenopathy. BACK: No deformity, no pressure ulcer. MUSCULOSKELETAL: No joint swelling, erythema, or tenderness. LABORATORY DATA: WBC 9.4, hemoglobin 11.2, platelets 268. Sputum culture grew MRSA. Blood culture, no growth for 2 days. RADIOLOGY: CT chest showed bilateral infiltrates. ASSESSMENT: A 49-year-old female presenting with cough, shortness of breath. CURRENT PROBLEM: Include: * Pneumonia with MRSA. * Hypoxic respiratory failure. * Obesity. * Positive human immunodeficiency virus test. PLAN: * We will obtain HIV RNA. * Obtain serum RPR. * Send sputum for DFA ____ PCP. * Continue oxygen. * Continue bronchodilator. * Continue pain management. * Continue Bactrim. * Continue doxycycline. * The patient will be followed up closely. Thank you for allowing me to participate in the care of this patient. TID: [id number] RECEIPT: [id number]
[2024-05-28] VITALS (16 sets, daily range): BP systolic 119–142; BP diastolic 67–95; PULSE 61–97; RESP 16–24; TEMP 98.4–99.2; O2SAT 92–98
[2024-05-28 04:39] LABS: BASOPHILS # (AUTO) 0.01 K/uL (0.00-0.20); BASOPHILS % (AUTO) 0.1 % (0.0-5.0); HEMATOCRIT 33.1 % (36-48); IMMATURE GRANULOCYTE ABSOLUTE 0.09 K/uL (0-1); LYMPHOCYTES # (AUTO) 0.4 K/uL (1.0-4.8); LYMPHOCYTES % (AUTO) 3.8 % (21.0-51.0); MEAN CORPUSCULAR HEMOGLOBIN 32.8 pg (27.0-33.0); MEAN CORPUSCULAR HGB CONC 34.7 g/dL (32.0-36.0); MEAN CORPUSCULAR VOLUME 94.3 fL (79-99); MONOCYTES # (AUTO) 0.5 K/uL (0.1-1.0); MONOCYTES % (AUTO) 5.4 % (3.0-13.0); NEUTROPHILS # (AUTO) 8.7 K/uL (1.8-7.7); NEUTROPHILS % (AUTO) 89.8 % (40.0-77.0); PLATELET COUNT (AUTO) 254 K/uL (130-400); RED BLOOD CELL COUNT(AUTO) 3.51 MIL/uL (4.00-5.50); RED CELL DISTRIBUTION WIDTH 11.1 % (11.0-15.5); WHITE BLOOD COUNT (AUTO) 9.7 K/uL (4.8-10.8)
[2024-05-28 04:51] LABS: ALBUMIN 2.3 g/dL (3.5-5.0); BILIRUBIN,TOTAL 0.4 mg/dL (0.2-1.0); CREATININE 0.5 mg/dL (0.5-1.0); MAGNESIUM 2.2 mg/dL (1.80-2.40); POTASSIUM 4.1 mmol/L (3.5-5.1); TOTAL PROTEIN, SERUM 6.6 g/dL (6.0-8.3)
[2024-05-28] MEDS: Solu-medROL 40MG VIAL IVP SCH ×2 (06:47→18:05)
[2024-05-28] MEDS: SODIUM CHLORIDE 3% FOR INHALATION 4 ML/AMP VIAL.NEB IH ONE (07:50)
[2024-05-28] MEDS ORDERED: PoTASSium chloRIDE 20MEQ ER 20 MEQ ERTAB PO PRN (08:00)
[2024-05-28] MEDS ORDERED: PoTASSium chl 10% ELIXIR 20MEQ 20 MEQ/15 ML UDCUP PO PRN (08:00)
[2024-05-28] MEDS ORDERED: PoTASSium chloRIDE 20MEQ/100ML 100 ML IV PRN (08:00)
--- NOTE | 2024-05-28 08:28 | PN ---
[facility] PROGRESS NOTE Date Patient Seen: May 28, 2024 Time of Visit: 08:12 Supervising Physician: Fani Bacon MD Primary Care Physician: Stu Foss MD Outpatient Specialists: [ ] Inpatient Consults: Pulmonology PROBLEM LIST: Acute hypoxemic respiratory failure, POA Bilateral lower lobe bacterial pneumonia + MRSA POA, +Azra Suspected PCP PNA based on CT findings vs viral/Atypical PNA . POA HIV positive POA Normocytic anemia, not POA Neutrophilia, POA Hyperglycemia, POA Obesity BMI of 32.3 Former smoker Acute cystitis, POA Fatty liver, POA Moderate hypoalbuminemia POA Previous COVID-19 infection INTERVAL HISTORY: 05/25/2024: At the time of my evaluation, the patient was lying in bed. She is currently on a non-rebreather mask. She reports feeling slightly better today. No laboratory data for review today. No new complaint. 04/27-patient is awake alert and oriented x3 currently receiving nebulizer treatment. She has been tolerating BiPAP overnight and currently on 10 L via Oxymizer which is less than 2 days ago which was 15 liters/minute saturating 96%. Patient has been afebrile and hemodynamically stable. Patient reports good urine output and bowel movements x2 yesterday. On laboratory white count is normal neutrophils the same as yesterday 89.8. Chemistry kidneys are doing good creatinine 0.5 GFR 114 glucose 150 mg/dL we will order hemoglobin A1c for tomorrow on chest x-ray. We will continue to follow ID recommendation. REVIEW OF SYSTEMS: General: No malaise or fever. Neurological: No fainting episodes or seizures. HEENT: No nasal congestion or nasal secretion. Respiratory: Yes for cough, yellow phlegm, shortness for breath on minimal exertion. Cardiac: No chest pain or palpitations. Gastrointestinal: No vomiting or diarrhea. Genitourinary: No dysuria hematuria. Skin: No rashes or lesions. Hematological: No bruises or bleeding. Musculoskeletal: No joint pains or arthralgias. Psychiatric: No depression or panic attacks. PHYSICAL EXAM: GENERAL: alert, weak, awake oriented x 3 HEENT: EOMI, Sclera non icteric, moist mucosa NECK: Supple, no JVD, trachea midline LUNGS: Diminished lung sounds. No wheezes HEART: Regular rate and rhythm. Normal S1 and S2, without murmurs ABD: Abdomen soft, nontender. Bowel sounds present EXT: No clubbing cyanosis or edema NEURO: Alert and oriented to person, follows commands Vital Signs (last 8hr) Date Time Temp Pulse Resp B/P (MAP) Pulse Ox O2 Delivery O2 Flow Rate FiO2 05/28/24 07:47 65 22 05/28/24 07:43 65 22 N/Cannula Oximizer Hi LPM 10.0 05/28/24 04:46 98.4 61 18 120/74 96 Nasal Cannula 05/28/24 02:02 78 23 60 05/28/24 01:59 76 22 05/28/24 00:44 98.6 68 18 119/71 96 Nasal Cannula LABS: Hematology Labs: Test 05/28/24 03:59 Range/Units White Blood Count 9.7 4.8-10.8 K/uL Red Blood Count 3.51 L 4.00-5.50 MIL/uL Hemoglobin 11.5 L 12.0-16.0 g/dL Hematocrit 33.1 L 36-48 % Mean Corpuscular Volume 94.3 79-99 fL Mean Corpuscular Hemoglobin 32.8 27.0-33.0 pg Mean Corpuscular Hemoglobin Concent 34.7 32.0-36.0 g/dL Red Cell Distribution Width 11.1 11.0-15.5 % Platelet Count 254 130-400 K/uL Mean Platelet Volume 9.8 7.5-10.5 fL Immature Granulocyte % (Auto) 0.9 0-1 % Neutrophils (%) (Auto) 89.8 H 40.0-77.0 % Lymphocytes (%) (Auto) 3.8 L 21.0-51.0 % Monocytes (%) (Auto) 5.4 3.0-13.0 % Eosinophils (%) (Auto) 0.0 0.0-8.0 % Basophils (%) (Auto) 0.1 0.0-5.0 % Neutrophils # (Auto) 8.7 H 1.8-7.7 K/uL Lymphocytes # (Auto) 0.4 L 1.0-4.8 K/uL Monocytes # (Auto) 0.5 0.1-1.0 K/uL Eosinophils # (Auto) 0.00 0.00-0.70 K/uL Basophils # (Auto) 0.01 0.00-0.20 K/uL Absolute Immature Granulocyte (auto 0.09 0-1 K/uL Nucleated Red Blood Cells 0.0 0.0-0.19 % Chemistry Labs: Test 05/28/24 03:59 Range/Units Sodium Level 136 136-145 mmol/L Potassium Level 4.1 3.5-5.1 mmol/L Chloride Level 102 101-111 mmol/L Carbon Dioxide Level 28 21-32 mmol/L Blood Urea Nitrogen 16 7-18 mg/dL Creatinine 0.5 0.5-1.0 mg/dL Glomerular Filtration Rate Calc 114 >90 mL/min Random Glucose 150 H 70-105 mg/dL Total Calcium 8.2 L 8.5-10.1 mg/dL Magnesium Level 2.20 1.80-2.40 mg/dL Total Bilirubin 0.4 0.2-1.0 mg/dL Aspartate Amino Transf (AST/SGOT) 44 H 10-37 U/L Alanine Aminotransferase (ALT/SGPT) 77 12-78 U/L Alkaline Phosphatase 59 50-136 U/L Total Protein 6.6 6.0-8.3 g/dL Albumin 2.3 L 3.5-5.0 g/dL DIAGNOSTICS / RADIOLOGY RESULTS: [ ] PLAN PE ruled out via CTA POA Continue IS Acapella Pulmonary toileting Antibiotics per ID HIV preliminary positive pending 2nd test. Influenza and COVID-19 negative Wean steroids as possible Guaifenesin for cough Continue duo nebs q.6 hours with CPT GI and DVT prophylaxis NEURO: Minimize central acting medications as possible. Maintain fall precautions, adequate lighting during the day PULMONARY: Supplemental 02 as needed. Maintain aspiration precautions at all times. Because of the concern of PCP pneumonia and HIV test was ordered and is pending confirmation. I am going to request a CD4 count in the meantime. Respiratory culture resulted positive for MRSA and Betty albicans. I am going to consult Infectious Disease specialist to guide antibiotic therapy. CARDIOVASCULAR: Follow hemodynamics. Vital signs per facility protocol. GI & NUTRITION: Continue with nutritional support. Continue stool softeners and laxatives as needed. KIDNEYS & ELECTROLYTES: Strict monitoring of intake, output and overall fluid balance. Avoid nephrotoxic medications to the extent possible. Medications to be dosed according to renal function. Monitor electrolytes and replace as needed ENDOCRINE: Maintain blood glucose between 100-180 at all times. Hypoglycemia protocol in place INFECTIOUS DISEASE: Trend temperature, WBC and procalcitonin level Follow cultures, deescalate antibiotics as soon as possible. Panculture if new onset fever Current antibiotic course Cefepime, doxycycline, Fluconazole, we will add Bactrim. We will follow the indication of the Infectious Disease specialist. ONCOLOGY/HEMATOLOGY/COAGULATION: Monitor for s/s of bleeding Monitor hemoglobin, coagulation studies as needed SKIN: Pressure ulcer prevention per facility protocol Specialty mattress ORTHO/REHAB: Continue PT/OT Prophylaxis: Continue GI and DVT prophylaxis Code Status: Full Resuscitation Disposition: TBD Other: Total patient care time exceeds 35 minutes excluding all procedures. [facility] May 28, 2024 08:28
--- NOTE | 2024-05-28 11:12 | PN ---
INFECTIOUS DISEASE PROGRESS NOTE Date of Service: May 28, 2024 SUBJECTIVE: This is a 49-year-old female patient who was admitted with chief complaint of shortness of breaths. A chest x-ray done on admission showed left lower lung pneumoniae. A CT chest showed bilateral pulmonary infiltrates but no evidence of PE. Patient was seen and examined at bedside in room 205. Patient is awake, alert and oriented x3. Patient is currently on high-flow oxygen via nasal cannula at 10 liters/minute. Sputum final culture results came back positive for methicillin-resistant Staphylococcus aureus and Betty albicans. Patient is currently on Bactrim p.o., and doxycycline and cefepime IV. No reports of nausea or vomiting. Patient has been updated on the Positive HIV test and that other lab studies has been ordered to confirm diagnosis. We will continue to follow patient's care. PHYSICAL EXAM EYES: Anicteric. Pupils equal and reactive. HENT: No oral thrush seen, moist Oral mucosa NECK: Supple, no JVD or thyromegaly. LUNGS: Good air entry. No rales, no rhonchi. Oxygen support. CARDIOVASCULAR: S1, S2 regular. No murmur heard. ABDOMEN: Soft, non tender, bowel sounds present, no organomegaly CENTRAL NERVOUS SYSTEM: Awake, alert, oriented x 3. SKIN: No rashes, no swelling. LYMPHATICS: No peripheral lymphadenopathy MUSCULOSKELETAL: No joint swelling, erythema or tenderness. EXTREMITIES: No cyanosis or clubbing BACK: No deformity, no pressure ulcer. GENITOURINARY: No dysuria or hematuria Vital Sign (Last 12 Hours) 05/28/24 05/28/24 05/28/24 05/28/24 00:44 01:59 02:02 04:46 Temp 98.6 98.4 Pulse 68 76 78 61 Resp 18 22 23 18 B/P (MAP) 119/71 120/74 Pulse Ox 96 96 O2 Delivery Nasal Cannula Nasal Cannula FiO2 60 05/28/24 05/28/24 05/28/24 07:43 07:47 08:27 Temp 98.4 Pulse 65 65 80 Resp 22 22 16 B/P (MAP) 137/77 Pulse Ox 93 O2 Delivery N/Cannula Oximizer Hi LPM Nasal Cannula O2 Flow Rate 10.0 10.0 Intake & Output (last 24hrs) 05/27/24 05/27/24 05/28/24 15:00 23:00 07:00 Intake Total 1060.0 ml 730.0 ml Balance 1060.0 ml 730.0 ml LABS: Laboratory: Test 05/28/24 03:59 05/27/24 10:51 Range/Units White Blood Count 9.7 4.8-10.8 K/uL Red Blood Count 3.51 L 4.00-5.50 MIL/uL Hemoglobin 11.5 L 12.0-16.0 g/dL Hematocrit 33.1 L 36-48 % Mean Corpuscular Volume 94.3 79-99 fL Mean Corpuscular Hemoglobin 32.8 27.0-33.0 pg Mean Corpuscular Hemoglobin Concent 34.7 32.0-36.0 g/dL Red Cell Distribution Width 11.1 11.0-15.5 % Platelet Count 254 130-400 K/uL Mean Platelet Volume 9.8 7.5-10.5 fL Immature Granulocyte % (Auto) 0.9 0-1 % Neutrophils (%) (Auto) 89.8 H 40.0-77.0 % Lymphocytes (%) (Auto) 3.8 L 21.0-51.0 % Monocytes (%) (Auto) 5.4 3.0-13.0 % Eosinophils (%) (Auto) 0.0 0.0-8.0 % Basophils (%) (Auto) 0.1 0.0-5.0 % Neutrophils # (Auto) 8.7 H 1.8-7.7 K/uL Lymphocytes # (Auto) 0.4 L 1.0-4.8 K/uL Monocytes # (Auto) 0.5 0.1-1.0 K/uL Eosinophils # (Auto) 0.00 0.00-0.70 K/uL Basophils # (Auto) 0.01 0.00-0.20 K/uL Absolute Immature Granulocyte (auto 0.09 0-1 K/uL Nucleated Red Blood Cells 0.0 0.0-0.19 % Sodium Level 136 136-145 mmol/L Potassium Level 4.1 3.5-5.1 mmol/L Chloride Level 102 101-111 mmol/L Carbon Dioxide Level 28 21-32 mmol/L Blood Urea Nitrogen 16 7-18 mg/dL Creatinine 0.5 0.5-1.0 mg/dL Glomerular Filtration Rate Calc 114 >90 mL/min Random Glucose 150 H 70-105 mg/dL Total Calcium 8.2 L 8.5-10.1 mg/dL Magnesium Level 2.20 1.80-2.40 mg/dL Total Bilirubin 0.4 0.2-1.0 mg/dL Aspartate Amino Transf (AST/SGOT) 44 H 10-37 U/L Alanine Aminotransferase (ALT/SGPT) 77 12-78 U/L Alkaline Phosphatase 59 50-136 U/L Total Protein 6.6 6.0-8.3 g/dL Albumin 2.3 L 3.5-5.0 g/dL Blood Gas Specimen Type Arterial Arterial Blood pH 7.466 H 7.350-7.450 Arterial Blood Partial Pressure CO2 33 32-45 mmHg Arterial Blood Partial Pressure O2 65.2 L 83.0-108.0 mmHg Arterial Blood HCO3 23.1 21.0-28.0 mmol/L Arterial Blood Oxygen Saturation 94.1 94.0-98.0 % Arterial Blood Base Excess 0.2 -2.0-3.0 mmol/L Blood Gas Temperature 37.0 35.5-37.0 CELSIUS Blood Gas Flow-by 12.00 0.00-15.00 L/min Blood Gas Vent Mode VM ROOM AIR FiO2 40.0 % Blood Gas Specimen Comment KIEL,CARYN DIAGNOSTICS / RADIOLOGY: PATIENT: RIO OSORIO ACCT: [id number] LOC: 2CV U: [id number] AGE/SX: 49/F ROOM: [facility] RE05/23/[address]: HEATHER RICE MD : 1975 BED: 1 DIS: STATUS: ADM IN TLOC: SPEC: [id number] OMA: 05/23/24 STATUS: COMP REQ: [id number] RECD: 05/23/[address]: FRED BOX SOURCE: SPUTUM ENTR: 05/23/24-2028 [facility] DR: HEATHER RICE MD [facility]: JOSE BECKETT MD ORDERED: RESP CULTURE COMMENTS: CALLED TO KASHMIR 05/26/24 CR 0817 - Procedure Result Piter Date-Time GRAM STAIN Final 05/24/24-1331 MRL GRAM STAIN RESULT: WHITE BLOOD CELLS 1+ GRAM POSITIVE COCCI IN CLUSTERS GOOD SPECIMEN [ <10 SEC's/LPF and >25 PMN's/LPF ] * This is a corrected result. * A prior result that was reported as final has been changed. RESPIRATORY CULTURE Final 05/26/24-628 MRL METHICILLIN-RESISTANT STAPHYLOCOCCUS AUREUS RESULT WAS CALLED BY SOLE LOPEZ ON 05/26/24 AT 0627. CRITICAL VALUES WERE READ BACK AND ACKNOWLEDGED BY FEI SAHU ([facility] [place]) COLONY DESCRIPTION: REPORT 1: 1+ ORAL LUCIEN ; STUDIES TO CONTINUE 1+ YEAST, BETTY ALBICANS 1+ GRAM POSITIVE COCCI IN CLUSTERS STAPHYLOCOCCUS AUREUS SENSITIVITY TO FOLLOW REPORT 2: NO FURTHER WORK-UP DONE MRSA: NOTE: THIS IS A METHICILLIN-RESISTANT STAPH AUREUS STAPHYLOCOCCUS AUREUS-MRSA BETTY ALBICANS. CONTINUED ON NEXT PAGE RUN DATE: 05/26/24 [facility] PAGE 2 RUN TIME: [phone] [address], [place] [address] Department of Laboratories ROJAS # [id number] Tableman: George Coy DO Specimen Report SPEC: [id number] PATIENT: RIO OSORIO [id number] (Continued) Procedure Result Piter Date-Time RESPIRATORY CULTURE Final (continued) 05/26/24-628 MRSA M.I.C. RX --------- ---- CLINDAMYCIN <=0.25 S ERYTHROMYCIN >4 R GENTAMICIN <=4 S VANCOMYCIN 1 S OXACILLIN DENNIS >2 R RIFAMPIN <=1 S TETRACYCLINE <=4 S TRIMETHOPRIM/SUFLAMETHOXAZOLE <=0.5/9.5 S ASSESSMENT: Acute hypoxic respiratory failure, requiring oxygen support. Pneumonia with methicillin-resistant Staphylococcus aureus. Positive HIV test. Obesity. PLAN: Continue Bactrim DS b.i.d.. Continue cefepime 2 g IV every 12 hours. Continue doxycycline IV every 12 hours. Continue oxygen support. Continue bronchodilators. We will follow up on the culture results We will monitor electrolytes. This case was reviewed and discussed with my supervising physician and the above assessment and plan was formulated and agreed upon. ATTESTATION BY PHYSICIAN I have seen and examined the patient. I reviewed the documentation, medical decision making, and treatment plan as noted by the mid-level provider above. I agree with the findings and plan of care. [place] MD, MIRTA L IRA [facility] May 28, 2024 11:12
--- NOTE | 2024-05-28 12:24 | PN ---
[facility] PROGRESS NOTE Date of Service: May 28, 2024 Time of Service: 12:20 SUBJECTIVE: [ ] Ms. Abdullahi is a 49-year-old female that was seen and examined today on 05/23/2024. Patient is a good historian and personal health. Patient's son Dagoberto Salcido is at bedside. Patient states that she came to the emergency department with a chief complaint of shortness of breath. Onset was two weeks ago. Location is to lungs. Duration is on and off. Character is described as "easily running out of air." Initially shortness and breath was only aggravated with climbing one or two flights of stairs but symptoms have progressively worsened and patient becomes short of breath even standing or walking short distances. There was no alleviating factors however previously symptoms were being controlled with daily morning albuterol nebulizer treatments. Patient denies any associated chest pain or dizziness. Patient reports an episode of COVID in December 2023. emergency department CBC unremarkable, chemistry unremarkable, urinalysis unremarkable, influenza screen negative, COVID negative, blood gas shows PO2 less than 45. Chest x-ray shows left lower lung pneumonia and minimal right lung base atelectasis. Upon arrival to the emergency department patient was placed on a BiPAP due to respiratory distress. 05/24/2024-patient was seen and examined at the bedside, still on BiPAP. Patient is able to speak, and says she feels much better than before. Patient says after COVID in December she developed severe bronchitis and she was on Solu-Medrol and albuterol, which did not help her much and later she had high fevers and shortness of breath which is when she came to the ED.Vitals afebrile pulse 76, RR 38 tachypneic , blood pressure 115/68, pulse oxygen 99 on BiPAP flow of 60. On ABG pH 7.47, pCO2 29, PO2 109.4, oxygen saturation 98.3. [id number] potassium 4.1 BUN15 creatinine 0.5 GFR 114. We will closely monitor the patient. [employer] Surveillance Officer consult noted waiting on the recommendation 05/25/24 patient was seen and examined and case discussed with RN and family by the bedside. She was breathing better today. She has been on BiPAP all night but now he was on 100% non-rebreather with further efforts to continue to wean the oxygen requirements down. 05/27/24 patient is seen and examined at bedside, acute events overnight, case discussed with the RN, BP 131/64, afebrile, saturating 96-97% via Ventimask, FiO2 40%. The patient admits cough productive of clear phlegm. Serology tests reviewed, HIV preliminary positive, discussed with the patient. 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 We will continue the patient on IV antibiotics, continue fluconazole, continue to follow Pulmonary and ID input and recommendations. After provided in the preliminary results of HIV test, she denies any suicidal or homicidal ideations. 05/28 patient has been seen and examined, no acute events overnight, case discussed with the RN, during my visit patient is sitting comfortably in the chair, hemodynamically stable, off Ventimask, currently on 10 L via nasal cannula, saturating 98%, tolerated BiPAP overnight. she feels better, less shortness a breath, still admits cough productive of yellow phlegm. No chest pain. Getting IV antibiotics during my visit. HIV P24 antigen, nonreactive. We will continue to follow Pulmonary and Infectious Disease input and recommendations. REVIEW OF SYSTEMS CONSTITUTIONAL: Respiratory distress on BiPAP Denies fevers, chills, or night sweats. No unintentional weight loss reported. NEUROLOGICAL: Denies headache, amaurosis fugax, motor weakness, sensory deficit, vertigo/spinning sensation, gait abnormalities, or tremors. ENT: No hearing loss, otalgia, otorrhea, rhinitis, rhinorrhea, hoarseness, or sore throat. CARDIOVASCULAR: Denies any exertional angina, dyspnea on exertion, orthopnea, paroxysmal nocturnal dyspnea, palpitations, life-threatening arrhythmias, claudication. PULMONARY: Denies any shortness of breath, cough, phlegm/sputum, hemoptysis, pleuritic chest pain. SLEEP: Denies morning headaches, daytime somnolence or napping. Denies difficulty falling asleep, staying asleep, waking from sleep. Denies knowledge of snoring. GASTROINTESTINAL: Denies any type of dysphagia to either liquids or solids. Denies nausea, vomiting, pyrosis, early satiety, abdominal pain, diarrhea, constipation, or changes in stool consistency or caliber. Denies coffee-ground emesis, hematemesis, hematochezia, or melanotic stools. GENITOURINARY: Denies frequency, urgency, nocturia, hematuria or incontinence (Storage/Irritative symptoms.) Low urinary stream, straining to void, urinary intermittency or hesitancy, splitting of the voiding stream, terminal dribbling. ENDOCRINOLOGIC: Denies polyuria, polydipsia, polyphagia or heat/cold intolerances. HEMATOLOGIC: Denies thrombophilia/previous clots, or coagulopathy/bleeding disorders. ONCOLOGIC: Denies personal history of malignancy. DERMATOLOGIC: Denies rashes or pruritus. PSYCHIATRIC: Denies any suicidal or homicidal ideation. Denies hallucinations. PHYSICAL EXAM GENERAL APPEARANCE: The patient is awake, alert, and oriented, in no acute cardiopulmonary distress. NEUROLOGICAL: Cranial nerves II-XII grossly intact. Motor is 5/5 in bilateral upper and lower extremities proximal to distal. No sensory deficits. HEENT: Face is symmetric. Pupils are equal and reactive. Extraocular movements are intact. NECK: Supple. No JVD. No thyromegaly. No submental, submandibular, pre- /postauricular, occipital or supraclavicular lymphadenopathy. CHEST: Normal chest expansion. No Telemetry. LUNGS: Absence of any rales, rhonchi or any wheezing. CARDIOVASCULAR: Regular. S1 and S2 normal. No appreciable rubs, murmurs or gallops. ABDOMEN: Soft, nontender, and nondistended. There is no rebound, voluntary guarding, or rigidity. : Deferred. No Souza. EXTREMITIES: Non-edematous and not cyanotic. No clubbing. Good capillary refill. SKIN: No skin breakdown. Vital Signs (last 8hr) Date Time Temp Pulse Resp B/P (MAP) Pulse Ox O2 Delivery O2 Flow Rate FiO2 05/28/24 11:46 91 24 N/Cannula Oximizer Hi LPM 10.0 05/28/24 11:40 91 24 05/28/24 11:36 99.1 96 18 142/95 95 Nasal Cannula 10.0 05/28/24 11:10 96 N/C Oxymizer Hi LPM* 10 40 Bi-PAP+ 05/28/24 08:27 98.4 80 16 137/77 93 Nasal Cannula 10.0 05/28/24 07:47 65 22 05/28/24 07:43 65 22 N/Cannula Oximizer Hi LPM 10.0 05/28/24 04:46 98.4 61 18 120/74 96 Nasal Cannula LABS: Laboratory: Test 05/28/24 03:59 05/27/24 10:51 Range/Units White Blood Count 9.7 4.8-10.8 K/uL Red Blood Count 3.51 L 4.00-5.50 MIL/uL Hemoglobin 11.5 L 12.0-16.0 g/dL Hematocrit 33.1 L 36-48 % Mean Corpuscular Volume 94.3 79-99 fL Mean Corpuscular Hemoglobin 32.8 27.0-33.0 pg Mean Corpuscular Hemoglobin Concent 34.7 32.0-36.0 g/dL Red Cell Distribution Width 11.1 11.0-15.5 % Platelet Count 254 130-400 K/uL Mean Platelet Volume 9.8 7.5-10.5 fL Immature Granulocyte % (Auto) 0.9 0-1 % Neutrophils (%) (Auto) 89.8 H 40.0-77.0 % Lymphocytes (%) (Auto) 3.8 L 21.0-51.0 % Monocytes (%) (Auto) 5.4 3.0-13.0 % Eosinophils (%) (Auto) 0.0 0.0-8.0 % Basophils (%) (Auto) 0.1 0.0-5.0 % Neutrophils # (Auto) 8.7 H 1.8-7.7 K/uL Lymphocytes # (Auto) 0.4 L 1.0-4.8 K/uL Monocytes # (Auto) 0.5 0.1-1.0 K/uL Eosinophils # (Auto) 0.00 0.00-0.70 K/uL Basophils # (Auto) 0.01 0.00-0.20 K/uL Absolute Immature Granulocyte (auto 0.09 0-1 K/uL Nucleated Red Blood Cells 0.0 0.0-0.19 % Sodium Level 136 136-145 mmol/L Potassium Level 4.1 3.5-5.1 mmol/L Chloride Level 102 101-111 mmol/L Carbon Dioxide Level 28 21-32 mmol/L Blood Urea Nitrogen 16 7-18 mg/dL Creatinine 0.5 0.5-1.0 mg/dL Glomerular Filtration Rate Calc 114 >90 mL/min Random Glucose 150 H 70-105 mg/dL Total Calcium 8.2 L 8.5-10.1 mg/dL Magnesium Level 2.20 1.80-2.40 mg/dL Total Bilirubin 0.4 0.2-1.0 mg/dL Aspartate Amino Transf (AST/SGOT) 44 H 10-37 U/L Alanine Aminotransferase (ALT/SGPT) 77 12-78 U/L Alkaline Phosphatase 59 50-136 U/L Total Protein 6.6 6.0-8.3 g/dL Albumin 2.3 L 3.5-5.0 g/dL Blood Gas Specimen Type Arterial Arterial Blood pH 7.466 H 7.350-7.450 Arterial Blood Partial Pressure CO2 33 32-45 mmHg Arterial Blood Partial Pressure O2 65.2 L 83.0-108.0 mmHg Arterial Blood HCO3 23.1 21.0-28.0 mmol/L Arterial Blood Oxygen Saturation 94.1 94.0-98.0 % Arterial Blood Base Excess 0.2 -2.0-3.0 mmol/L Blood Gas Temperature 37.0 35.5-37.0 CELSIUS Blood Gas Flow-by 12.00 0.00-15.00 L/min Blood Gas Vent Mode VM ROOM AIR FiO2 40.0 % Blood Gas Specimen Comment CARYN DYSON Current Medications Medications (Trade) Dose Ordered Sig/Julita Route PRN Reason Start Time Stop Time Status Last Admin Dose Admin Acetaminophen (TYLenol 650MG SUPPOSITORY) 650 mg Q6H PRN RC MILD PAIN (1-3) 05/23/24 20:30 06/22/24 20:29 Albuterol (DUOneb) 1 udvial [id number] IH 05/24/24 00:00 06/23/24 00:00 05/28/24 11:39 1 UDVIAL Azithromycin 250 ml @ 250 mls/hr Q24H IVPB 05/24/24 17:00 05/24/24 14:41 DC Azithromycin 250 ml @ 250 mls/hr Q24H STAT IVPB 05/23/24 17:17 05/24/24 14:41 DC 05/23/24 17:45 250 MLS/HR Cefepime HCl (MAXipime 2 gm vial) 2 gm Q12H IVPB 05/24/24 15:00 06/03/24 14:59 05/28/24 02:28 2 GM Ceftriaxone Sodium (ROCEphine 1G INJ) 1 gm Q24H IVPB 05/24/24 17:30 05/24/24 14:41 DC Doxycycline Hyclate 250 ml @ 125 mls/hr Q12H IV 05/24/24 16:30 06/03/24 16:29 05/28/24 03:41 125 MLS/HR Enoxaparin Sodium (Lovenox) 40 mg Q24H SQ 05/23/24 21:00 06/22/24 20:59 05/27/24 20:53 40 MG Famotidine (Pepcid 20mg Vial) 20 mg DAILY IV 05/24/24 09:00 06/23/24 08:59 05/28/24 09:32 20 MG Fluconazole/ Sodium Chloride 100 ml @ 100 mls/hr DAILY IV 05/26/24 09:00 05/27/24 15:57 DC 05/27/24 09:07 100 MLS/HR Guaifenesin/ Dextromethorphan (RobiTUSSin DM 200/20MG 10ML) 10 ml Q4H PRN PO COUGH 05/23/24 20:30 06/22/24 20:29 05/25/24 17:28 10 ML Levofloxacin/ Dextrose 100 ml @ 100 mls/hr Q24H IV 05/24/24 15:00 05/24/24 16:16 DC Magnesium Sulfate 50 ml @ 0 mls/hr PROTOCOL PRN IV hypomagnesemia 05/28/24 08:00 06/27/24 07:59 Methylprednisolone Sodium Succinate (Solu-medROL 40MG) 40 mg Q12H IVP 05/28/24 18:00 06/27/24 05:59 Methylprednisolone Sodium Succinate (Solu-medROL 40MG) 40 mg Q8H IVP 05/24/24 01:00 05/25/24 21:51 DC 05/25/24 17:28 40 MG Methylprednisolone Sodium Succinate (Solu-medROL 40MG) 60 mg Q6H IVP 05/25/24 22:00 05/28/24 02:25 DC 05/27/24 23:55 60 MG Methylprednisolone Sodium Succinate (Solu-medROL 40MG) 60 mg Q6H IVP 05/28/24 06:00 05/28/24 08:27 DC 05/28/24 06:47 60 MG Metronidazole/ Sodium Chloride (flaGYL) 500 mg Q8H IV 05/25/24 22:00 05/25/24 21:56 DC Ondansetron HCl (zoFRAN 4MG INJ) 4 mg Q6H PRN IV NAUSEA/VOMITING 05/23/24 20:30 06/22/24 20:29 Potassium Chloride 100 ml @ 100 mls/hr AD PRN IV POTASSIUM PROTOCOL 05/28/24 08:00 06/27/24 07:59 Potassium Chloride (K-Dur/Klor-Con 20meq) 20 meq AD PRN PO POTASSIUM PROTOCOL 05/28/24 08:00 06/27/24 07:59 Potassium Chloride (KCl 10% Elixir 20meq/15ml) 20 meq AD PRN PO POTASSIUM PROTOCOL 05/28/24 08:00 06/27/24 07:59 Trimethoprim/ Sulfamethoxazole (BactRIM DS) 1 tab BID PO 05/26/24 21:00 06/05/24 20:59 05/28/24 09:32 1 TAB DIAGNOSTICS / RADIOLOGY: [ ] ASSESSMENT: Acute hypoxemic respiratory failure, POA Bilateral lower lobe bacterial pneumonia + MRSA POA, +Azra Suspected PCP PNA based on CT findings vs viral/Atypical PNA . POA HIV positive (preliminary report, confirmatory test nonreactive) POA Normocytic anemia, not POA Neutrophilia, POA Hyperglycemia, POA Obesity BMI of 32.3 Former smoker Acute cystitis, POA Fatty liver, POA Moderate hypoalbuminemia POA Previous COVID-19 infection PLAN: Patient is in PCU on telemetry monitoring. Continue to wean off oxygen Continue to follow Pulmonary input and recommendation DuoNebs every 6 hours Continue broad-spectrum antibiotics and fluconazole Continue to follow infectious disease input and recommendation HIV antibody preliminary positive, confirmatory test nonreactive Replace electrolytes IV per protocol A.m. labs Transfuse as needed GI prophylaxis, famotidine 20 mg IV once daily. DVT prophylaxis, Lovenox 40 mg subcutaneously once daily. Further orders to follow based on the above results Disposition: Remains admitted to the PCU, continue broad-spectrum antibiotics, continue to wean off oxygen. Continue to follow Pulmonary and Infectious Disease input and recommendations. Plan of action discussed with the patient, all questions answered, agreed and understood the information provided. Total PCU time spent greater than 30 minutes. GAIL WALDRON MD May 28, 2024 12:24
--- NOTE | 2024-05-28 15:07 | NUR ---
Counseling information Patient requested information on [facility] [facility] [place] be left in room. Patient saved number to the [facility] and [facility]. Also took picture of documents needed during first visit. Patient stated that understanding is this is not confirmed yet and requested her diagnosis not be discussed if she has visitors in the room. Informed patient this CM will remind nursing staff and we will respect her privacy. Patient wept and is struggling with the diagnosis. She believes if HIV/AIDS is confirmed that she contracted it from her partner on and off again partner. This CM encouraged patient get in contact with [facility] for the support and counseling needed. Patient verbalized understanding and stated will visit the clinic upon discharge. When CM left room, patient was no longer weepy and stated is staying hopeful and praying to God that the diagnosis is a false positive. Addendum: 05/28/24 at 1520 by DANY OLSON Amended: Links added.
[2024-05-28 17:09] LABS: ABSOLUTE CD4 COUNT 4 /uL (359-1519); LYMPHS % FOR CD4 COUNT 4 % (Not Estab.); LYMPHS ABS FOR CD4 COUNT 0.4 x10E3/uL (0.7-3.1); PERCENT CD4 CELLS 1.1 % (30.8-58.5); WBC FOR CD4 COUNT 8.8 x10E3/uL (3.4-10.8)
[2024-05-29] VITALS (16 sets, daily range): BP systolic 114–136; BP diastolic 62–78; PULSE 70–126; RESP 18–24; TEMP 97.4–99.9; O2SAT 89–98
[2024-05-29 03:59] LABS: HEMATOCRIT 33.9 % (36-48); MEAN CORPUSCULAR HEMOGLOBIN 32.8 pg (27.0-33.0); MEAN CORPUSCULAR HGB CONC 34.8 g/dL (32.0-36.0); MEAN CORPUSCULAR VOLUME 94.2 fL (79-99); RED BLOOD CELL COUNT(AUTO) 3.6 MIL/uL (4.00-5.50); RED CELL DISTRIBUTION WIDTH 11.1 % (11.0-15.5); WHITE BLOOD COUNT (AUTO) 13.2 K/uL (4.8-10.8)
[2024-05-29 04:16] LABS: ALBUMIN 2.4 g/dL (3.5-5.0); BILIRUBIN,TOTAL 0.4 mg/dL (0.2-1.0); CREATININE 0.5 mg/dL (0.5-1.0); MAGNESIUM 2.1 mg/dL (1.80-2.40); TOTAL PROTEIN, SERUM 6.7 g/dL (6.0-8.3)
[2024-05-29 04:21] LABS: HEMOGLOBIN A1C 6.2 % (4.0-6.0)
--- NOTE | 2024-05-29 10:11 | PN ---
[facility] PROGRESS NOTE Date of Service: May 29, 2024 Time of Service: 10:10 SUBJECTIVE: [ ] Ms. Abdullahi is a 49-year-old female that was seen and examined today on 05/23/2024. Patient is a good historian and personal health. Patient's son Dagoberto Salcido is at bedside. Patient states that she came to the emergency department with a chief complaint of shortness of breath. Onset was two weeks ago. Location is to lungs. Duration is on and off. Character is described as "easily running out of air." Initially shortness and breath was only aggravated with climbing one or two flights of stairs but symptoms have progressively worsened and patient becomes short of breath even standing or walking short distances. There was no alleviating factors however previously symptoms were being controlled with daily morning albuterol nebulizer treatments. Patient denies any associated chest pain or dizziness. Patient reports an episode of COVID in December 2023. emergency department CBC unremarkable, chemistry unremarkable, urinalysis unremarkable, influenza screen negative, COVID negative, blood gas shows PO2 less than 45. Chest x-ray shows left lower lung pneumonia and minimal right lung base atelectasis. Upon arrival to the emergency department patient was placed on a BiPAP due to respiratory distress. 05/24/2024-patient was seen and examined at the bedside, still on BiPAP. Patient is able to speak, and says she feels much better than before. Patient says after COVID in December she developed severe bronchitis and she was on Solu-Medrol and albuterol, which did not help her much and later she had high fevers and shortness of breath which is when she came to the ED.Vitals afebrile pulse 76, RR 38 tachypneic , blood pressure 115/68, pulse oxygen 99 on BiPAP flow of 60. On ABG pH 7.47, pCO2 29, PO2 109.4, oxygen saturation 98.3. [id number] potassium 4.1 BUN15 creatinine 0.5 GFR 114. We will closely monitor the patient. Bleach Boiler Filler consult noted waiting on the recommendation 05/25/24 patient was seen and examined and case discussed with RN and family by the bedside. She was breathing better today. She has been on BiPAP all night but now he was on 100% non-rebreather with further efforts to continue to wean the oxygen requirements down. 05/27/24 patient is seen and examined at bedside, acute events overnight, case discussed with the RN, BP 131/64, afebrile, saturating 96-97% via Ventimask, FiO2 40%. The patient admits cough productive of clear phlegm. Serology tests reviewed, HIV preliminary positive, discussed with the patient. 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 We will continue the patient on IV antibiotics, continue fluconazole, continue to follow Pulmonary and ID input and recommendations. After provided in the preliminary results of HIV test, she denies any suicidal or homicidal ideations. 05/28 patient has been seen and examined, no acute events overnight, case discussed with the RN, during my visit patient is sitting comfortably in the chair, hemodynamically stable, off Ventimask, currently on 10 L via nasal cannula, saturating 98%, tolerated BiPAP overnight. she feels better, less shortness a breath, still admits cough productive of yellow phlegm. No chest pain. Getting IV antibiotics during my visit. HIV P24 antigen, nonreactive. We will continue to follow Pulmonary and Infectious Disease input and recommendations. 05/29 patient has been seen and examined, no acute events overnight, case discussed with the RN, during my visit patient is sitting comfortably in the chair, hemodynamically stable, remains on 10 L via nasal cannula, saturating 98% , still admits cough productive of yellow phlegm. No chest pain. Getting IV antibiotics during my visit. HIV P24 antigen, nonreactive. Pending CD4 cell count. We will continue to follow Pulmonary and Infectious Disease input and recommendations. REVIEW OF SYSTEMS CONSTITUTIONAL: Respiratory distress on BiPAP Denies fevers, chills, or night sweats. No unintentional weight loss reported. NEUROLOGICAL: Denies headache, amaurosis fugax, motor weakness, sensory deficit, vertigo/spinning sensation, gait abnormalities, or tremors. ENT: No hearing loss, otalgia, otorrhea, rhinitis, rhinorrhea, hoarseness, or sore throat. CARDIOVASCULAR: Denies any exertional angina, dyspnea on exertion, orthopnea, paroxysmal nocturnal dyspnea, palpitations, life-threatening arrhythmias, claudication. PULMONARY: Denies any shortness of breath, cough, phlegm/sputum, hemoptysis, pleuritic chest pain. SLEEP: Denies morning headaches, daytime somnolence or napping. Denies difficulty falling asleep, staying asleep, waking from sleep. Denies knowledge of snoring. GASTROINTESTINAL: Denies any type of dysphagia to either liquids or solids. Denies nausea, vomiting, pyrosis, early satiety, abdominal pain, diarrhea, constipation, or changes in stool consistency or caliber. Denies coffee-ground emesis, hematemesis, hematochezia, or melanotic stools. GENITOURINARY: Denies frequency, urgency, nocturia, hematuria or incontinence (Storage/Irritative symptoms.) Low urinary stream, straining to void, urinary intermittency or hesitancy, splitting of the voiding stream, terminal dribbling. ENDOCRINOLOGIC: Denies polyuria, polydipsia, polyphagia or heat/cold intolerances. HEMATOLOGIC: Denies thrombophilia/previous clots, or coagulopathy/bleeding disorders. ONCOLOGIC: Denies personal history of malignancy. DERMATOLOGIC: Denies rashes or pruritus. PSYCHIATRIC: Denies any suicidal or homicidal ideation. Denies hallucinations. PHYSICAL EXAM GENERAL APPEARANCE: The patient is awake, alert, and oriented, in no acute cardiopulmonary distress. NEUROLOGICAL: Cranial nerves II-XII grossly intact. Motor is 5/5 in bilateral upper and lower extremities proximal to distal. No sensory deficits. HEENT: Face is symmetric. Pupils are equal and reactive. Extraocular movements are intact. NECK: Supple. No JVD. No thyromegaly. No submental, submandibular, pre- /postauricular, occipital or supraclavicular lymphadenopathy. CHEST: Normal chest expansion. No Telemetry. LUNGS: Absence of any rales, rhonchi or any wheezing. CARDIOVASCULAR: Regular. S1 and S2 normal. No appreciable rubs, murmurs or gallops. ABDOMEN: Soft, nontender, and nondistended. There is no rebound, voluntary guarding, or rigidity. : Deferred. No Souza. EXTREMITIES: Non-edematous and not cyanotic. No clubbing. Good capillary refill. SKIN: No skin breakdown. Vital Signs (last 8hr) Date Time Temp Pulse Resp B/P (MAP) Pulse Ox O2 Delivery O2 Flow Rate FiO2 05/29/24 08:13 98.2 88 18 136/75 94 BIPAP 05/29/24 07:27 81 24 05/29/24 07:25 85 24 N/Cannula Oximizer Hi LPM 10.0 05/29/24 04:28 97.3 70 20 119/69 96 BIPAP 05/29/24 03:25 76 22 60 LABS: Laboratory: Test 05/29/24 03:49 05/28/24 03:59 05/27/24 13:40 05/27/24 12:00 Range/Units White Blood Count 13.2 #H 4.8-10.8 K/uL Red Blood Count 3.60 L 4.00-5.50 MIL/uL Hemoglobin 11.8 L 12.0-16.0 g/dL Hematocrit 33.9 L 36-48 % Mean Corpuscular Volume 94.2 79-99 fL Mean Corpuscular Hemoglobin 32.8 27.0-33.0 pg Mean Corpuscular Hemoglobin Concent 34.8 32.0-36.0 g/dL Red Cell Distribution Width 11.1 11.0-15.5 % Platelet Count 254 130-400 K/uL Mean Platelet Volume 9.4 7.5-10.5 fL Nucleated Red Blood Cells 0.0 0.0-0.19 % Sodium Level 137 136-145 mmol/L Potassium Level 4.0 3.5-5.1 mmol/L Chloride Level 102 101-111 mmol/L Carbon Dioxide Level 28 21-32 mmol/L Blood Urea Nitrogen 18 7-18 mg/dL Creatinine 0.5 0.5-1.0 mg/dL Glomerular Filtration Rate Calc 114 >90 mL/min Random Glucose 115 H 70-105 mg/dL Hemoglobin A1c 6.2 H 4.0-6.0 % Estimated Average Glucose (eAG) 131 H 70-126 mg/dL Total Calcium 8.3 L 8.5-10.1 mg/dL Magnesium Level 2.10 1.80-2.40 mg/dL Total Bilirubin 0.4 0.2-1.0 mg/dL Aspartate Amino Transf (AST/SGOT) 44 H 10-37 U/L Alanine Aminotransferase (ALT/SGPT) 85 H 12-78 U/L Alkaline Phosphatase 72 50-136 U/L Total Protein 6.7 6.0-8.3 g/dL Albumin 2.4 L 3.5-5.0 g/dL Immature Granulocyte % (Auto) 0.9 0-1 % Neutrophils (%) (Auto) 89.8 H 40.0-77.0 % Lymphocytes (%) (Auto) 3.8 L 21.0-51.0 % Monocytes (%) (Auto) 5.4 3.0-13.0 % Eosinophils (%) (Auto) 0.0 0.0-8.0 % Basophils (%) (Auto) 0.1 0.0-5.0 % Neutrophils # (Auto) 8.7 H 1.8-7.7 K/uL Lymphocytes # (Auto) 0.4 L 1.0-4.8 K/uL Monocytes # (Auto) 0.5 0.1-1.0 K/uL Eosinophils # (Auto) 0.00 0.00-0.70 K/uL Basophils # (Auto) 0.01 0.00-0.20 K/uL Absolute Immature Granulocyte (auto 0.09 0-1 K/uL Rapid Plasma Reagin NONREACTIVE NONREACTIVE White Blood Count (Cell Immunity) 8.8 3.4-10.8 x10E3/uL Lymphocytes (Cell Immunity) 4 Not Estab. % Absolute Lymphocytes (Cell Immunity 0.4 L 0.7-3.1 x10E3/uL Percent CD4 Cells 1.1 L 30.8-58.5 % Absolute CD4 Count 4 L 359-1519 /uL Test 05/27/24 10:51 Range/Units Blood Gas Specimen Type Arterial Arterial Blood pH 7.466 H 7.350-7.450 Arterial Blood Partial Pressure CO2 33 32-45 mmHg Arterial Blood Partial Pressure O2 65.2 L 83.0-108.0 mmHg Arterial Blood HCO3 23.1 21.0-28.0 mmol/L Arterial Blood Oxygen Saturation 94.1 94.0-98.0 % Arterial Blood Base Excess 0.2 -2.0-3.0 mmol/L Blood Gas Temperature 37.0 35.5-37.0 CELSIUS Blood Gas Flow-by 12.00 0.00-15.00 L/min Blood Gas Vent Mode VM ROOM AIR FiO2 40.0 % Blood Gas Specimen Comment CARYN DYSON Current Medications Medications (Trade) Dose Ordered Sig/Julita Route PRN Reason Start Time Stop Time Status Last Admin Dose Admin Acetaminophen (TYLenol 650MG SUPPOSITORY) 650 mg Q6H PRN RC MILD PAIN (1-3) 05/23/24 20:30 06/22/24 20:29 Albuterol (DUOneb) 1 udvial [id number] IH 05/24/24 00:00 06/23/24 00:00 05/29/24 07:25 1 UDVIAL Azithromycin 250 ml @ 250 mls/hr Q24H IVPB 05/24/24 17:00 05/24/24 14:41 DC Azithromycin 250 ml @ 250 mls/hr Q24H STAT IVPB 05/23/24 17:17 05/24/24 14:41 DC 05/23/24 17:45 250 MLS/HR Cefepime HCl (MAXipime 2 gm vial) 2 gm Q12H IVPB 05/24/24 15:00 06/03/24 14:59 05/29/24 03:10 2 GM Ceftriaxone Sodium (ROCEphine 1G INJ) 1 gm Q24H IVPB 05/24/24 17:30 05/24/24 14:41 DC Doxycycline Hyclate 250 ml @ 125 mls/hr Q12H IV 05/24/24 16:30 06/03/24 16:29 05/29/24 05:20 125 MLS/HR Enoxaparin Sodium (Lovenox) 40 mg Q24H SQ 05/23/24 21:00 06/22/24 20:59 05/28/24 20:23 40 MG Famotidine (Pepcid 20mg Vial) 20 mg DAILY IV 05/24/24 09:00 06/23/24 08:59 05/29/24 08:07 20 MG Fluconazole/ Sodium Chloride 100 ml @ 100 mls/hr DAILY IV 05/26/24 09:00 05/27/24 15:57 DC 05/27/24 09:07 100 MLS/HR Guaifenesin/ Dextromethorphan (RobiTUSSin DM 200/20MG 10ML) 10 ml Q4H PRN PO COUGH 05/23/24 20:30 06/22/24 20:29 05/25/24 17:28 10 ML Levofloxacin/ Dextrose 100 ml @ 100 mls/hr Q24H IV 05/24/24 15:00 05/24/24 16:16 DC Magnesium Sulfate 50 ml @ 0 mls/hr PROTOCOL PRN IV hypomagnesemia 05/28/24 08:00 06/27/24 07:59 Methylprednisolone Sodium Succinate (Solu-medROL 40MG) 40 mg Q12H IVP 05/28/24 18:00 06/27/24 05:59 05/29/24 05:32 40 MG Methylprednisolone Sodium Succinate (Solu-medROL 40MG) 40 mg Q8H IVP 05/24/24 01:00 05/25/24 21:51 DC 05/25/24 17:28 40 MG Methylprednisolone Sodium Succinate (Solu-medROL 40MG) 60 mg Q6H IVP 05/25/24 22:00 05/28/24 02:25 DC 05/27/24 23:55 60 MG Methylprednisolone Sodium Succinate (Solu-medROL 40MG) 60 mg Q6H IVP 05/28/24 06:00 05/28/24 08:27 DC 05/28/24 06:47 60 MG Metronidazole/ Sodium Chloride (flaGYL) 500 mg Q8H IV 05/25/24 22:00 05/25/24 21:56 DC Ondansetron HCl (zoFRAN 4MG INJ) 4 mg Q6H PRN IV NAUSEA/VOMITING 05/23/24 20:30 06/22/24 20:29 Potassium Chloride 100 ml @ 100 mls/hr AD PRN IV POTASSIUM PROTOCOL 05/28/24 08:00 06/27/24 07:59 Potassium Chloride (K-Dur/Klor-Con 20meq) 20 meq AD PRN PO POTASSIUM PROTOCOL 05/28/24 08:00 06/27/24 07:59 Potassium Chloride (KCl 10% Elixir 20meq/15ml) 20 meq AD PRN PO POTASSIUM PROTOCOL 05/28/24 08:00 06/27/24 07:59 Trimethoprim/ Sulfamethoxazole (BactRIM DS) 1 tab BID PO 05/26/24 21:00 06/05/24 20:59 05/29/24 08:07 1 TAB DIAGNOSTICS / RADIOLOGY: [ ] ASSESSMENT: Acute hypoxemic respiratory failure, POA Bilateral lower lobe bacterial pneumonia + MRSA POA, +Azra Suspected PCP PNA based on CT findings vs viral/Atypical PNA . POA HIV positive (preliminary report, confirmatory test nonreactive) POA Normocytic anemia, not POA Neutrophilia, POA Hyperglycemia, POA Obesity BMI of 32.3 Former smoker Acute cystitis, POA Fatty liver, POA Moderate hypoalbuminemia POA Previous COVID-19 infection PLAN: Patient is in PCU on telemetry monitoring. Continue to wean off oxygen Continue to follow Pulmonary input and recommendation DuoNebs every 6 hours Continue broad-spectrum antibiotics and fluconazole Continue to follow infectious disease input and recommendation HIV antibody preliminary positive, confirmatory test nonreactive Replace electrolytes IV per protocol A.m. labs Transfuse as needed GI prophylaxis, famotidine 20 mg IV once daily. DVT prophylaxis, Lovenox 40 mg subcutaneously once daily. Further orders to follow based on the above results Disposition: Remains admitted to the PCU, continue broad-spectrum antibiotics, continue to wean off oxygen. Follow CD4 cell count. Continue to follow Pulmonary and Infectious Disease input and recommendations. Plan of action discussed with the patient, all questions answered, agreed and understood the information provided. Total PCU time spent greater than 30 minutes. GAIL WALDRON MD May 29, 2024 10:11
--- NOTE | 2024-05-29 11:02 | HMCIMG ---
CHEST 1VW REASON: Hypoxic respiratory failure COMPARISON: None. FINDINGS: There is left lower lobe infiltrate consistent with pneumonia. This has increased somewhat since prior exam. Lungs are otherwise clear. Heart size is normal with no vascular congestion. IMPRESSION: 1. Increasing left lower lobe pneumonia.
[2024-05-29 11:13] LABS: CREATININE 0.4 mg/dL (0.5-1.0); POTASSIUM 4.1 mmol/L (3.5-5.1)
--- NOTE | 2024-05-29 12:17 | PN ---
INFECTIOUS DISEASE PROGRESS NOTE Date of Service: May 29, 2024 SUBJECTIVE: This is a 49-year-old female patient who was admitted with chief complaint of shortness of breaths. A chest x-ray done on admission showed left lower lung pneumoniae. A CT chest showed bilateral pulmonary infiltrates but no evidence of PE. Patient was seen and examined at bedside in room 205. Patient is awake, alert and oriented x 3. Chest x-ray done today showed increasing left lower lobe pneumonia. Continues on high-flow oxygen via nasal cannula at 10 liters/minute. Patient with positive preliminary HIV 1&2 antibody. The absolute CD count is low at 4 and the % CD4 cells is low at 1.1. Patient continues on Bactrim p.o., and doxycycline and cefepime IV. We will continue to follow patient's care. PHYSICAL EXAM EYES: Anicteric. Pupils equal and reactive. HENT: No oral thrush seen, moist Oral mucosa NECK: Supple, no JVD or thyromegaly. LUNGS: Good air entry. No rales, no rhonchi. Cough. Oxygen support. CARDIOVASCULAR: S1, S2 regular. No murmur heard. ABDOMEN: Soft, non tender, bowel sounds present, no organomegaly CENTRAL NERVOUS SYSTEM: Awake, alert, oriented x 3. SKIN: No rashes, no swelling. LYMPHATICS: No peripheral lymphadenopathy MUSCULOSKELETAL: No joint swelling, erythema or tenderness. EXTREMITIES: No cyanosis or clubbing BACK: No deformity, no pressure ulcer. GENITOURINARY: No dysuria or hematuria. Vital Sign (Last 12 Hours) 05/29/24 05/29/24 05/29/24 05/29/24 00:20 00:34 03:25 04:28 Temp 98.8 97.3 Pulse 86 71 76 70 Resp 18 22 22 20 B/P (MAP) 128/71 119/69 Pulse Ox 91 96 O2 Delivery Nasal Cannula BIPAP FiO2 60 60 05/29/24 05/29/24 05/29/24 05/29/24 07:25 07:27 08:13 10:33 Temp 98.2 Pulse 85 81 88 Resp 24 24 18 B/P (MAP) 136/75 Pulse Ox 94 96 O2 Delivery N/Cannula Oximizer Hi LPM BIPAP N/C Oxymizer Hi LPM* Bi-PAP+ O2 Flow Rate 10.0 10 FiO2 40 05/29/24 05/29/24 11:31 11:31 Pulse 80 80 Resp 24 24 O2 Delivery N/Cannula Oximizer Hi LPM O2 Flow Rate 10.0 Intake & Output (last 24hrs) 05/28/24 05/28/24 05/29/24 15:00 23:00 07:00 Intake Total 350.0 ml Output Total 950 ml Balance -600.0 ml LABS: Laboratory: Test 05/29/24 10:49 05/29/24 03:49 05/28/24 03:59 05/27/24 13:40 Range/Units Sodium Level 136 136-145 mmol/L Potassium Level 4.1 3.5-5.1 mmol/L Chloride Level 100 L 101-111 mmol/L Carbon Dioxide Level 28 21-32 mmol/L Blood Urea Nitrogen 17 7-18 mg/dL Creatinine 0.4 L 0.5-1.0 mg/dL Glomerular Filtration Rate Calc 121 >90 mL/min Random Glucose 159 H 70-105 mg/dL Total Calcium 8.2 L 8.5-10.1 mg/dL White Blood Count 13.2 #H 4.8-10.8 K/uL Red Blood Count 3.60 L 4.00-5.50 MIL/uL Hemoglobin 11.8 L 12.0-16.0 g/dL Hematocrit 33.9 L 36-48 % Mean Corpuscular Volume 94.2 79-99 fL Mean Corpuscular Hemoglobin 32.8 27.0-33.0 pg Mean Corpuscular Hemoglobin Concent 34.8 32.0-36.0 g/dL Red Cell Distribution Width 11.1 11.0-15.5 % Platelet Count 254 130-400 K/uL Mean Platelet Volume 9.4 7.5-10.5 fL Nucleated Red Blood Cells 0.0 0.0-0.19 % Hemoglobin A1c 6.2 H 4.0-6.0 % Estimated Average Glucose (eAG) 131 H 70-126 mg/dL Magnesium Level 2.10 1.80-2.40 mg/dL Total Bilirubin 0.4 0.2-1.0 mg/dL Aspartate Amino Transf (AST/SGOT) 44 H 10-37 U/L Alanine Aminotransferase (ALT/SGPT) 85 H 12-78 U/L Alkaline Phosphatase 72 50-136 U/L Total Protein 6.7 6.0-8.3 g/dL Albumin 2.4 L 3.5-5.0 g/dL Immature Granulocyte % (Auto) 0.9 0-1 % Neutrophils (%) (Auto) 89.8 H 40.0-77.0 % Lymphocytes (%) (Auto) 3.8 L 21.0-51.0 % Monocytes (%) (Auto) 5.4 3.0-13.0 % Eosinophils (%) (Auto) 0.0 0.0-8.0 % Basophils (%) (Auto) 0.1 0.0-5.0 % Neutrophils # (Auto) 8.7 H 1.8-7.7 K/uL Lymphocytes # (Auto) 0.4 L 1.0-4.8 K/uL Monocytes # (Auto) 0.5 0.1-1.0 K/uL Eosinophils # (Auto) 0.00 0.00-0.70 K/uL Basophils # (Auto) 0.01 0.00-0.20 K/uL Absolute Immature Granulocyte (auto 0.09 0-1 K/uL Rapid Plasma Reagin NONREACTIVE NONREACTIVE ASSESSMENT: Acute hypoxic respiratory failure, requiring oxygen support. Pneumonia with methicillin-resistant Staphylococcus aureus. Positive HIV test. Obesity. PLAN: Continue cefepime 2 g IV every 12 hours. Continue doxycycline IV every 12 hours. Continue Bactrim DS b.i.d.. Continue oxygen support. Continue bronchodilators. We will monitor electrolytes. This case was reviewed and discussed with my supervising physician and the above assessment and plan was formulated and agreed upon. ATTESTATION BY PHYSICIAN I have seen and examined the patient. I reviewed the documentation, medical decision making, and treatment plan as noted by the mid-level provider above. I agree with the findings and plan of care. [place] MD, MIRTA L SIZER HAND May 29, 2024 12:17
--- NOTE | 2024-05-29 14:15 | PN ---
[facility] PROGRESS NOTE Date Patient Seen: May 29, 2024 Time of Visit: 14:15 Supervising Physician: Fani Bacon MD Primary Care Physician: Stu Foss MD Outpatient Specialists: [ ] Inpatient Consults: Pulmonology PROBLEM LIST: Acute hypoxemic respiratory failure, POA Bilateral lower lobe bacterial pneumonia + MRSA POA, +Azra Suspected PCP PNA based on CT findings vs viral/Atypical PNA . POA HIV/AIDS positive POA Normocytic anemia, not POA Neutrophilia, POA Hyperglycemia, POA Obesity BMI of 32.3 Former smoker Acute cystitis, POA Fatty liver, POA Moderate hypoalbuminemia POA Previous COVID-19 infection INTERVAL HISTORY: 05/25/2024: At the time of my evaluation, the patient was lying in bed. She is currently on a non-rebreather mask. She reports feeling slightly better today. No laboratory data for review today. No new complaint. 05/28-patient is awake alert and oriented x3 currently receiving nebulizer treatment. She has been tolerating BiPAP overnight and currently on 10 L via Oxymizer which is less than 2 days ago which was 15 liters/minute saturating 96%. Patient has been afebrile and hemodynamically stable. Patient reports good urine output and bowel movements x2 yesterday. On laboratory white count is normal neutrophils the same as yesterday 89.8. Chemistry kidneys are doing good creatinine 0.5 GFR 114 glucose 150 mg/dL we will order hemoglobin A1c for tomorrow on chest x-ray. We will continue to follow ID recommendation. 05/29/24-patient is awake alert and oriented x3. She is sitting up on recliner chair with high FiO2 requirements 10 L via Oxymizer. We will increase Solu- Medrol to 40 mg IV q.6 hours and continue with doxycycline cefepime and increased Bactrim to full-dose two tablets p.o. TID. Patient's denies chills, chest pain palpitations. However she does report continues shortness for breath and gets winded easily with a few steps to the restroom. Patient to continue BiPAP at night and p.r.n.. Chest x-ray worsening left lower lobe pneumonia. REVIEW OF SYSTEMS: General: No malaise or fever. Neurological: No fainting episodes or seizures. HEENT: No nasal congestion or nasal secretion. Respiratory: Yes for cough, yellow phlegm, shortness for breath on minimal exertion. Cardiac: No chest pain or palpitations. Gastrointestinal: No vomiting or diarrhea. Genitourinary: No dysuria hematuria. Skin: No rashes or lesions. Hematological: No bruises or bleeding. Musculoskeletal: No joint pains or arthralgias. Psychiatric: No depression or panic attacks. PHYSICAL EXAM: GENERAL: alert, weak, awake oriented x 3 HEENT: EOMI, Sclera non icteric, moist mucosa NECK: Supple, no JVD, trachea midline LUNGS: Fine crackles to bilateral lower posterior bases lung sounds. No wheezes HEART: Regular rate and rhythm. Normal S1 and S2, without murmurs ABD: Abdomen soft, nontender. Bowel sounds present EXT: No clubbing cyanosis or edema NEURO: Alert and oriented to person, follows commands Vital Signs (last 8hr) Date Time Temp Pulse Resp B/P (MAP) Pulse Ox O2 Delivery O2 Flow Rate FiO2 05/29/24 12:14 99.7 98 18 131/78 91 Nasal Cannula 10.0 05/29/24 11:31 80 24 N/Cannula Oximizer Hi LPM 10.0 05/29/24 11:31 80 24 05/29/24 10:33 96 N/C Oxymizer Hi LPM* 10 40 Bi-PAP+ 05/29/24 08:13 98.2 88 18 136/75 94 BIPAP 05/29/24 07:27 81 24 05/29/24 07:25 85 24 N/Cannula Oximizer Hi LPM 10.0 LABS: Hematology Labs: Test 05/29/24 03:49 05/28/24 03:59 Range/Units White Blood Count 13.2 #H 4.8-10.8 K/uL Red Blood Count 3.60 L 4.00-5.50 MIL/uL Hemoglobin 11.8 L 12.0-16.0 g/dL Hematocrit 33.9 L 36-48 % Mean Corpuscular Volume 94.2 79-99 fL Mean Corpuscular Hemoglobin 32.8 27.0-33.0 pg Mean Corpuscular Hemoglobin Concent 34.8 32.0-36.0 g/dL Red Cell Distribution Width 11.1 11.0-15.5 % Platelet Count 254 130-400 K/uL Mean Platelet Volume 9.4 7.5-10.5 fL Nucleated Red Blood Cells 0.0 0.0-0.19 % Immature Granulocyte % (Auto) 0.9 0-1 % Neutrophils (%) (Auto) 89.8 H 40.0-77.0 % Lymphocytes (%) (Auto) 3.8 L 21.0-51.0 % Monocytes (%) (Auto) 5.4 3.0-13.0 % Eosinophils (%) (Auto) 0.0 0.0-8.0 % Basophils (%) (Auto) 0.1 0.0-5.0 % Neutrophils # (Auto) 8.7 H 1.8-7.7 K/uL Lymphocytes # (Auto) 0.4 L 1.0-4.8 K/uL Monocytes # (Auto) 0.5 0.1-1.0 K/uL Eosinophils # (Auto) 0.00 0.00-0.70 K/uL Basophils # (Auto) 0.01 0.00-0.20 K/uL Absolute Immature Granulocyte (auto 0.09 0-1 K/uL Chemistry Labs: Test 05/29/24 10:49 05/29/24 03:49 Range/Units Sodium Level 136 136-145 mmol/L Potassium Level 4.1 3.5-5.1 mmol/L Chloride Level 100 L 101-111 mmol/L Carbon Dioxide Level 28 21-32 mmol/L Blood Urea Nitrogen 17 7-18 mg/dL Creatinine 0.4 L 0.5-1.0 mg/dL Glomerular Filtration Rate Calc 121 >90 mL/min Random Glucose 159 H 70-105 mg/dL Total Calcium 8.2 L 8.5-10.1 mg/dL Hemoglobin A1c 6.2 H 4.0-6.0 % Estimated Average Glucose (eAG) 131 H 70-126 mg/dL Magnesium Level 2.10 1.80-2.40 mg/dL Total Bilirubin 0.4 0.2-1.0 mg/dL Aspartate Amino Transf (AST/SGOT) 44 H 10-37 U/L Alanine Aminotransferase (ALT/SGPT) 85 H 12-78 U/L Alkaline Phosphatase 72 50-136 U/L Total Protein 6.7 6.0-8.3 g/dL Albumin 2.4 L 3.5-5.0 g/dL DIAGNOSTICS / RADIOLOGY RESULTS: Signed PATIENT: RIO OSORIO MR#: [id number] : 1975 SEX: F AGE: 49 LOCATION: 2AH ORDER 2300 STATUS: ADM IN REPORT#: [id number] SERVICE 0600 REASON: Hypoxic respiratory failure ORDERING PHYSICIAN: MARGO LOGAN PROCEDURE: CXR1VW - CHEST 1VW CHEST 1VW REASON: Hypoxic respiratory failure COMPARISON: None. FINDINGS: There is left lower lobe infiltrate consistent with pneumonia. This has increased somewhat since prior exam. Lungs are otherwise clear. Heart size is normal with no vascular congestion. IMPRESSION: 1. Increasing left lower lobe pneumonia. DICTATED BY: LALO IBANEZ MD DATE: 05/29/24 105 ELECTRONICALLY SIGNED BY: LALO IBANEZ MD DATE: 05/29/24 1102 PLAN PE ruled out via CTA POA Continue IS Acapella. CPT via vest with neb treatments Increase Solu-Medrol to 40 q.6 hours IV push Lasix 20 mg IV push x1 dose 2D echo Monitor for respiratory compromise closely Pulmonary toileting Antibiotics per ID Influenza and COVID-19 negative Guaifenesin for cough Continue duo nebs q.6 hours with CPT Continue IV antibiotics per ID, increase Bactrim ds to two tablets 3 times a day. GI and DVT prophylaxis CD4 count 4, reverse isolation. NEURO: Minimize central acting medications as possible. Maintain fall precautions, adequate lighting during the day PULMONARY: Supplemental 02 as needed. Maintain aspiration precautions at all times. Because of the concern of PCP pneumonia and HIV test was ordered and is pending confirmation. I am going to request a CD4 count in the meantime. Respiratory culture resulted positive for MRSA and Betty albicans. I am going to consult Infectious Disease specialist to guide antibiotic therapy. CARDIOVASCULAR: Follow hemodynamics. Vital signs per facility protocol. GI & NUTRITION: Continue with nutritional support. Continue stool softeners and laxatives as needed. KIDNEYS & ELECTROLYTES: Strict monitoring of intake, output and overall fluid balance. Avoid nephrotoxic medications to the extent possible. Medications to be dosed according to renal function. Monitor electrolytes and replace as needed ENDOCRINE: Maintain blood glucose between 100-180 at all times. Hypoglycemia protocol in place INFECTIOUS DISEASE: Trend temperature, WBC and procalcitonin level Follow cultures, deescalate antibiotics as soon as possible. Panculture if new onset fever Current antibiotic course Cefepime, doxycycline, Fluconazole, we will add Bactrim. We will follow the indication of the Infectious Disease specialist. ONCOLOGY/HEMATOLOGY/COAGULATION: Monitor for s/s of bleeding Monitor hemoglobin, coagulation studies as needed SKIN: Pressure ulcer prevention per facility protocol Specialty mattress ORTHO/REHAB: Continue PT/OT Prophylaxis: Continue GI and DVT prophylaxis Code Status: Full Resuscitation Disposition: TBD Other: Total patient care time exceeds 35 minutes excluding all procedures. MARGO LOGAN [facility] May 29, 2024 14:15
[2024-05-29] MEDS: Solu-medROL 40MG VIAL IVP SCH (16:45)
[2024-05-29] MEDS: sulfaMETHOX-TMP DS 800/160 TAB PO SCH (17:13)
[2024-05-29] MEDS: furoSEMIDE 20MG VIAL IV ONE (17:15)
[2024-05-30] VITALS (29 sets, daily range): BP systolic 95–123; BP diastolic 44–74; PULSE 24–102; RESP 14–37; TEMP 97.4–99.3; O2SAT 91–97
[2024-05-30 04:23] LABS: HEMATOCRIT 35.9 % (36-48); MEAN CORPUSCULAR HEMOGLOBIN 32.9 pg (27.0-33.0); MEAN CORPUSCULAR HGB CONC 35.1 g/dL (32.0-36.0); MEAN CORPUSCULAR VOLUME 93.7 fL (79-99); RED BLOOD CELL COUNT(AUTO) 3.83 MIL/uL (4.00-5.50); RED CELL DISTRIBUTION WIDTH 11.2 % (11.0-15.5)
[2024-05-30 04:55] LABS: ALBUMIN 2.5 g/dL (3.5-5.0); BILIRUBIN,TOTAL 0.5 mg/dL (0.2-1.0); CREATININE 0.6 mg/dL (0.5-1.0); MAGNESIUM 2.2 mg/dL (1.80-2.40); POTASSIUM 4.6 mmol/L (3.5-5.1); TOTAL PROTEIN, SERUM 7.3 g/dL (6.0-8.3)
--- NOTE | 2024-05-30 08:50 | PN ---
[facility] PROGRESS NOTE Date of Service: May 30, 2024 Time of Service: 08:47 SUBJECTIVE: [ ] Ms. Abdullahi is a 49-year-old female that was seen and examined today on 05/23/2024. Patient is a good historian and personal health. Patient's son Dagoberto Salcido is at bedside. Patient states that she came to the emergency department with a chief complaint of shortness of breath. Onset was two weeks ago. Location is to lungs. Duration is on and off. Character is described as "easily running out of air." Initially shortness and breath was only aggravated with climbing one or two flights of stairs but symptoms have progressively worsened and patient becomes short of breath even standing or walking short distances. There was no alleviating factors however previously symptoms were being controlled with daily morning albuterol nebulizer treatments. Patient denies any associated chest pain or dizziness. Patient reports an episode of COVID in December 2023. emergency department CBC unremarkable, chemistry unremarkable, urinalysis unremarkable, influenza screen negative, COVID negative, blood gas shows PO2 less than 45. Chest x-ray shows left lower lung pneumonia and minimal right lung base atelectasis. Upon arrival to the emergency department patient was placed on a BiPAP due to respiratory distress. 05/24/2024-patient was seen and examined at the bedside, still on BiPAP. Patient is able to speak, and says she feels much better than before. Patient says after COVID in December she developed severe bronchitis and she was on Solu-Medrol and albuterol, which did not help her much and later she had high fevers and shortness of breath which is when she came to the ED.Vitals afebrile pulse 76, RR 38 tachypneic , blood pressure 115/68, pulse oxygen 99 on BiPAP flow of 60. On ABG pH 7.47, pCO2 29, PO2 109.4, oxygen saturation 98.3. [id number] potassium 4.1 BUN15 creatinine 0.5 GFR 114. We will closely monitor the patient. [employer] consult noted waiting on the recommendation 05/25/24 patient was seen and examined and case discussed with RN and family by the bedside. She was breathing better today. She has been on BiPAP all night but now he was on 100% non-rebreather with further efforts to continue to wean the oxygen requirements down. 05/27/24 patient is seen and examined at bedside, acute events overnight, case discussed with the RN, BP 131/64, afebrile, saturating 96-97% via Ventimask, FiO2 40%. The patient admits cough productive of clear phlegm. Serology tests reviewed, HIV preliminary positive, discussed with the patient. 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 We will continue the patient on IV antibiotics, continue fluconazole, continue to follow Pulmonary and ID input and recommendations. After provided in the preliminary results of HIV test, she denies any suicidal or homicidal ideations. 05/28 patient has been seen and examined, no acute events overnight, case discussed with the RN, during my visit patient is sitting comfortably in the chair, hemodynamically stable, off Ventimask, currently on 10 L via nasal cannula, saturating 98%, tolerated BiPAP overnight. she feels better, less shortness a breath, still admits cough productive of yellow phlegm. No chest pain. Getting IV antibiotics during my visit. HIV P24 antigen, nonreactive. We will continue to follow Pulmonary and Infectious Disease input and recommendations. 05/29 patient has been seen and examined, no acute events overnight, case discussed with the RN, during my visit patient is sitting comfortably in the chair, hemodynamically stable, remains on 10 L via nasal cannula, saturating 98% , still admits cough productive of yellow phlegm. No chest pain. Getting IV antibiotics during my visit. HIV P24 antigen, nonreactive. Pending CD4 cell count. We will continue to follow Pulmonary and Infectious Disease input and recommendations. 05/30 the patient has been seen and examined, no acute events overnight, BP 114/66, during my visit she is on Ventimask, saturating 95%, FiO2 60%. Without the Ventimask the patient desaturates to the low 70s. Patient tolerating BiPAP during the night. Still admits cough productive of thick yellow phlegm, no chest pain. Results of CD4 cell count reviewed, discussed with the patient. We will continue broad-spectrum IV antibiotics. Continue to follow Pulmonary and Infectious Disease input and recommendations. REVIEW OF SYSTEMS CONSTITUTIONAL: Respiratory distress on BiPAP Denies fevers, chills, or night sweats. No unintentional weight loss reported. NEUROLOGICAL: Denies headache, amaurosis fugax, motor weakness, sensory deficit, vertigo/spinning sensation, gait abnormalities, or tremors. ENT: No hearing loss, otalgia, otorrhea, rhinitis, rhinorrhea, hoarseness, or sore throat. CARDIOVASCULAR: Denies any exertional angina, dyspnea on exertion, orthopnea, paroxysmal nocturnal dyspnea, palpitations, life-threatening arrhythmias, claudication. PULMONARY: Denies any shortness of breath, cough, phlegm/sputum, hemoptysis, pleuritic chest pain. SLEEP: Denies morning headaches, daytime somnolence or napping. Denies difficul ty falling asleep, staying asleep, waking from sleep. Denies knowledge of snoring. GASTROINTESTINAL: Denies any type of dysphagia to either liquids or solids. Denies nausea, vomiting, pyrosis, early satiety, abdominal pain, diarrhea, constipation, or changes in stool consistency or caliber. Denies coffee-ground emesis, hematemesis, hematochezia, or melanotic stools. GENITOURINARY: Denies frequency, urgency, nocturia, hematuria or incontinence (Storage/Irritative symptoms.) Low urinary stream, straining to void, urinary intermittency or hesitancy, splitting of the voiding stream, terminal dribbling. ENDOCRINOLOGIC: Denies polyuria, polydipsia, polyphagia or heat/cold intole rances. HEMATOLOGIC: Denies thrombophilia/previous clots, or coagulopathy/bleeding disorders. ONCOLOGIC: Denies personal history of malignancy. DERMATOLOGIC: Denies rashes or pruritus. PSYCHIATRIC: Denies any suicidal or homicidal ideation. Denies hallucinations. PHYSICAL EXAM GENERAL APPEARANCE: The patient is awake, alert, and oriented, in no acute cardiopulmonary distress. NEUROLOGICAL: Cranial nerves II-XII grossly intact. Motor is 5/5 in bilateral upper and lower extremities proximal to distal. No sensory deficits. HEENT: Face is symmetric. Pupils are equal and reactive. Extraocular movements are intact. NECK: Supple. No JVD. No thyromegaly. No submental, submandibular, pre- /postauricular, occipital or supraclavicular lymphadenopathy. CHEST: Normal chest expansion. No Telemetry. LUNGS: Absence of any rales, rhonchi or any wheezing. CARDIOVASCULAR: Regular. S1 and S2 normal. No appreciable rubs, murmurs or gallops. ABDOMEN: Soft, nontender, and nondistended. There is no rebound, voluntary guarding, or rigidity. : Deferred. No Souza. EXTREMITIES: Non-edematous and not cyanotic. No clubbing. Good capillary refill. SKIN: No skin breakdown. Vital Signs (last 8hr) Date Time Temp Pulse Resp B/P (MAP) Pulse Ox O2 Delivery O2 Flow Rate FiO2 05/30/24 08:16 98.8 95 20 114/66 95 Venti Mask 05/30/24 06:42 71 24 05/30/24 06:41 77 23 60 05/30/24 03:39 97.3 88 22 109/70 96 BIPAP 05/30/24 02:41 82 22 60 LABS: Laboratory: Test 05/30/24 03:44 05/29/24 03:49 Range/Units White Blood Count 9.0 # 4.8-10.8 K/uL Red Blood Count 3.83 L 4.00-5.50 MIL/uL Hemoglobin 12.6 12.0-16.0 g/dL Hematocrit 35.9 L 36-48 % Mean Corpuscular Volume 93.7 79-99 fL Mean Corpuscular Hemoglobin 32.9 27.0-33.0 pg Mean Corpuscular Hemoglobin Concent 35.1 32.0-36.0 g/dL Red Cell Distribution Width 11.2 11.0-15.5 % Platelet Count 254 130-400 K/uL Mean Platelet Volume 10.1 7.5-10.5 fL Nucleated Red Blood Cells 0.0 0.0-0.19 % Sodium Level 136 136-145 mmol/L Potassium Level 4.6 3.5-5.1 mmol/L Chloride Level 99 L 101-111 mmol/L Carbon Dioxide Level 29 21-32 mmol/L Blood Urea Nitrogen 16 7-18 mg/dL Creatinine 0.6 0.5-1.0 mg/dL Glomerular Filtration Rate Calc 109 >90 mL/min Random Glucose 143 H 70-105 mg/dL Total Calcium 8.4 L 8.5-10.1 mg/dL Magnesium Level 2.20 1.80-2.40 mg/dL Total Bilirubin 0.5 # 0.2-1.0 mg/dL Aspartate Amino Transf (AST/SGOT) 43 H 10-37 U/L Alanine Aminotransferase (ALT/SGPT) 80 H 12-78 U/L Alkaline Phosphatase 77 50-136 U/L Total Protein 7.3 6.0-8.3 g/dL Albumin 2.5 L 3.5-5.0 g/dL Hemoglobin A1c 6.2 H 4.0-6.0 % Estimated Average Glucose (eAG) 131 H 70-126 mg/dL Current Medications Medications (Trade) Dose Ordered Sig/Julita Route PRN Reason Start Time Stop Time Status Last Admin Dose Admin Acetaminophen (TYLenol 650MG SUPPOSITORY) 650 mg Q6H PRN RC MILD PAIN (1-3) 05/23/24 20:30 06/22/24 20:29 Albuterol (DUOneb) 1 udvial [id number] IH 05/24/24 00:00 06/23/24 00:00 05/30/24 06:39 1 UDVIAL Azithromycin 250 ml @ 250 mls/hr Q24H IVPB 05/24/24 17:00 05/24/24 14:41 DC Azithromycin 250 ml @ 250 mls/hr Q24H STAT IVPB 05/23/24 17:17 05/24/24 14:41 DC 05/23/24 17:45 250 MLS/HR Cefepime HCl (MAXipime 2 gm vial) 2 gm Q12H IVPB 05/24/24 15:00 06/03/24 14:59 05/30/24 02:02 2 GM Ceftriaxone Sodium (ROCEphine 1G INJ) 1 gm Q24H IVPB 05/24/24 17:30 05/24/24 14:41 DC Doxycycline Hyclate 250 ml @ 125 mls/hr Q12H IV 05/24/24 16:30 06/03/24 16:29 05/30/24 03:25 125 MLS/HR Enoxaparin Sodium (Lovenox) 40 mg Q24H SQ 05/23/24 21:00 06/22/24 20:59 05/29/24 20:27 40 MG Famotidine (Pepcid 20mg Vial) 20 mg DAILY IV 05/24/24 09:00 06/23/24 08:59 05/29/24 08:07 20 MG Fluconazole/ Sodium Chloride 100 ml @ 100 mls/hr DAILY IV 05/26/24 09:00 05/27/24 15:57 DC 05/27/24 09:07 100 MLS/HR Guaifenesin/ Dextromethorphan (RobiTUSSin DM 200/20MG 10ML) 10 ml Q4H PRN PO COUGH 05/23/24 20:30 06/22/24 20:29 05/25/24 17:28 10 ML Levofloxacin/ Dextrose 100 ml @ 100 mls/hr Q24H IV 05/24/24 15:00 05/24/24 16:16 DC Magnesium Sulfate 50 ml @ 0 mls/hr PROTOCOL PRN IV hypomagnesemia 05/28/24 08:00 06/27/24 07:59 Methylprednisolone Sodium Succinate (Solu-medROL 40MG) 40 mg Q12H IVP 05/28/24 18:00 05/29/24 16:45 DC 05/29/24 05:32 40 MG Methylprednisolone Sodium Succinate (Solu-medROL 40MG) 40 mg Q6H IVP 05/29/24 16:30 06/28/24 16:29 05/30/24 03:26 40 MG Methylprednisolone Sodium Succinate (Solu-medROL 40MG) 40 mg Q8H IVP 05/24/24 01:00 05/25/24 21:51 DC 05/25/24 17:28 40 MG Methylprednisolone Sodium Succinate (Solu-medROL 40MG) 60 mg Q6H IVP 05/25/24 22:00 05/28/24 02:25 DC 05/27/24 23:55 60 MG Methylprednisolone Sodium Succinate (Solu-medROL 40MG) 60 mg Q6H IVP 05/28/24 06:00 05/28/24 08:27 DC 05/28/24 06:47 60 MG Metronidazole/ Sodium Chloride (flaGYL) 500 mg Q8H IV 05/25/24 22:00 05/25/24 21:56 DC Ondansetron HCl (zoFRAN 4MG INJ) 4 mg Q6H PRN IV NAUSEA/VOMITING 05/23/24 20:30 06/22/24 20:29 Potassium Chloride 100 ml @ 100 mls/hr AD PRN IV POTASSIUM PROTOCOL 05/28/24 08:00 06/27/24 07:59 Potassium Chloride (K-Dur/Klor-Con 20meq) 20 meq AD PRN PO POTASSIUM PROTOCOL 05/28/24 08:00 06/27/24 07:59 Potassium Chloride (KCl 10% Elixir 20meq/15ml) 20 meq AD PRN PO POTASSIUM PROTOCOL 05/28/24 08:00 06/27/24 07:59 Trimethoprim/ Sulfamethoxazole (BactRIM DS) 1 tab BID PO 05/26/24 21:00 05/29/24 16:18 DC 05/29/24 08:07 1 TAB Trimethoprim/ Sulfamethoxazole (BactRIM DS) 2 tab TID PO 05/29/24 16:30 06/05/24 20:59 05/29/24 20:26 2 TAB DIAGNOSTICS / RADIOLOGY: [ ] ASSESSMENT: Acute hypoxemic respiratory failure, POA Bilateral lower lobe bacterial pneumonia + MRSA POA, +Azra Suspected PCP PNA based on CT findings vs viral/Atypical PNA . POA HIV positive (preliminary report, confirmatory test nonreactive) POA Normocytic anemia, not POA Neutrophilia, POA Hyperglycemia, POA Obesity BMI of 32.3 Former smoker Acute cystitis, POA Fatty liver, POA Moderate hypoalbuminemia POA Previous COVID-19 infection PLAN: Patient is in PCU Continue the patient on telemetry monitoring. Continue to wean off oxygen. Continue to follow Pulmonary input and recommendation Continue to follow infectious disease input and recommendation Continue the patient on Solu-Medrol 40 mg IV every 6 hours Continue Bactrim two tablets p.o. t.i.d. Continue doxycycline and cefepime IV DuoNebs every 6 hours Replace electrolytes IV per protocol A.m. labs GI and DVT prophylaxis. Further orders to follow based on the above results Disposition: Remains admitted to the PCU, continue broad-spectrum antibiotics, continue to wean off oxygen. Continue to follow Pulmonary and Infectious Disease input and recommendations. Plan of action discussed with the patient, all questions answered, agreed and understood the information provided. Total PCU time spent greater than 30 minutes. GAIL WALDRON MD May 30, 2024 08:50
[2024-05-30 09:57] LABS: CREATININE 0.6 mg/dL (0.5-1.0)
--- NOTE | 2024-05-30 11:05 | HMCSR ---
APPROVED REPORT EXAM: Two-dimensional and M-mode echocardiogram with Doppler and color Doppler. INDICATION ICD: Assess left ventricular function. 2D Dimensions RVDd3.9 cmLVEF(%)69.9 (>50%)LVED Vol(simp.)97.0 mL IVSd1.3 (0.7-1.1cm)FS(%)39 %LVES Vol(simp.)44.0 mL LVDd4.1 (3.8-5.6cm)LA (2D)2.9 (1.6-4.0cm)LVEF(%, simp.)55 % PWd1.3 (0.7-1.1cm)Ao Root(2D)2.7 (2.0-3.7cm)LA ESV INDEX (4CH)18.80 mL/m2 IVSs1.7 cmLVOT diam2.0 (1.8-2.4cm)LA ESV INDEX (2CH)26.30 mL/m2 LVDs2.5 (2.5-4.0cm)IVC diam1.4 cmLA ESV INDEX (BP)22.70 mL/m2 PWs1.6 cm M-Mode Dimensions EPSS0.3 cm LA (MM)2.6 (1.6-4.0cm) Ao Root(MM)2.7 (2.0-3.7cm) Aortic Valve AoV VTI0.2 mAo Mean GR4.0 mmHgLVOT VTI0.20 m SANDRA (VMAX)2.8 cm2AVA (VTI) 2.8 cm2 Mitral Valve MV E Vmax55.8 cm/sDECEL Qmpd339 ms MV A Vmax64.7 cm/sP 1/2 T42 ms E/A ratio0.9MVA (PHT)5.3 cm2 TDI E/E' Elxqcb85.5E/E' Lateral5.8 Medial E' Peak V5.30 cm/sLateral E' Peak V9.70 cm/s Tricuspid Valve RAP (EST) 3 mmHgRVSP3.0 mmHg Left Ventricle The left ventricle is normal size. Mild concentric left ventricular hypertrophy. The LVEF is > 55%. T he left ventricular diastolic function is normal. Right Ventricle The right ventricle is normal size. The right ventricular systolic function is normal. Atria The left atrium size is normal. The right atrium size is normal. Aortic Valve The aortic valve is normal in structure. No aortic regurgitation is present. There is no aortic valvu lar stenosis. Mitral Valve The mitral valve is normal in structure. There is no mitral valve regurgitation noted. There is no mi tral valve stenosis. Tricuspid Valve The tricuspid valve is normal in structure. There is no tricuspid valve regurgitation noted. Pulmonic Valve Pulmonic valve is not well visualized. There is no pulmonic valvular regurgitation. Great Vessels The aortic root is normal in size. The IVC is normal in size and collapses >50% with inspiration. Pericardium There is no pericardial effusion. Other Information Quality : Technically difficult due to body habitus Rhythm : NSR Conclusion The LVEF is > 55%. Mild concentric left ventricular hypertrophy. The left ventricular diastolic function is normal.
--- NOTE | 2024-05-30 11:14 | PN ---
INFECTIOUS DISEASE PROGRESS NOTE Date of Service: May 30, 2024 SUBJECTIVE: This is a 49-year-old female patient who was admitted with chief complaint of shortness of breaths. A chest x-ray done on admission showed left lower lung pneumoniae. A CT chest showed bilateral pulmonary infiltrates but no evidence of PE. Patient was seen and examined at bedside in room 205. Patient is awake, alert and oriented x 3. Patient on acute hypoxic respiratory failure, requiring Ventimask support. Patient has been updated on the low CD4 count. Patient had a low-grade fever of 99.9 throughout the night, current temperature however is 98.8. Patient continues on Bactrim p.o., and doxycycline and cefepime IV. We will continue to follow patient's care. PHYSICAL EXAM EYES: Anicteric. Pupils equal and reactive. HENT: No oral thrush seen, moist Oral mucosa. NECK: Supple, no JVD or thyromegaly. LUNGS: Good air entry. No rales, no rhonchi. Dyspnea. Cough. Oxygen support. CARDIOVASCULAR: S1, S2 regular. No murmur heard. ABDOMEN: Soft, non tender, bowel sounds present, no organomegaly. CENTRAL NERVOUS SYSTEM: Awake, alert, oriented x 3. SKIN: No rashes, no swelling. LYMPHATICS: No peripheral lymphadenopathy. MUSCULOSKELETAL: No joint swelling, erythema or tenderness. EXTREMITIES: No cyanosis or clubbing. BACK: No deformity, no pressure ulcer. GENITOURINARY: No dysuria or hematuria. Vital Sign (Last 12 Hours) 05/29/24 05/29/24 05/30/24 05/30/24 23:18 23:20 02:41 03:39 Temp 99.5 97.3 Pulse 79 79 82 88 Resp 22 22 B/P (MAP) 125/71 109/70 Pulse Ox 89 96 O2 Delivery Nasal Cannula BIPAP O2 Flow Rate 10.0 FiO2 60 05/30/24 05/30/24 05/30/24 05/30/24 06:41 06:42 08:16 09:00 Temp 98.8 Pulse 77 71 95 Resp 24 20 21 B/P (MAP) 114/66 Pulse Ox 95 O2 Delivery Venti Mask Non Rebreather O2 Flow Rate 15.0 FiO2 60 100 05/30/24 10:26 Pulse Ox 95 O2 Delivery Venti Mask+ O2 Flow Rate 10 FiO2 40 Intake & Output (last 24hrs) 1/15/25 1/15/25 1/16/25 15:00 23:00 07:00 Intake Total 350.0 ml 600.0 ml Output Total 450 ml 700 ml Balance -450 ml -350.0 ml 600.0 ml LABS: Laboratory: Test 05/30/24 09:35 05/30/24 03:44 05/29/24 03:49 Range/Units Sodium Level 135 L 136-145 mmol/L Potassium Level 4.0 3.5-5.1 mmol/L Chloride Level 98 L 101-111 mmol/L Carbon Dioxide Level 29 21-32 mmol/L Blood Urea Nitrogen 18 7-18 mg/dL Creatinine 0.6 0.5-1.0 mg/dL Glomerular Filtration Rate Calc 109 >90 mL/min Random Glucose 221 #H 70-105 mg/dL Total Calcium 8.8 8.5-10.1 mg/dL White Blood Count 9.0 # 4.8-10.8 K/uL Red Blood Count 3.83 L 4.00-5.50 MIL/uL Hemoglobin 12.6 12.0-16.0 g/dL Hematocrit 35.9 L 36-48 % Mean Corpuscular Volume 93.7 79-99 fL Mean Corpuscular Hemoglobin 32.9 27.0-33.0 pg Mean Corpuscular Hemoglobin Concent 35.1 32.0-36.0 g/dL Red Cell Distribution Width 11.2 11.0-15.5 % Platelet Count 254 130-400 K/uL Mean Platelet Volume 10.1 7.5-10.5 fL Nucleated Red Blood Cells 0.0 0.0-0.19 % Magnesium Level 2.20 1.80-2.40 mg/dL Total Bilirubin 0.5 # 0.2-1.0 mg/dL Aspartate Amino Transf (AST/SGOT) 43 H 10-37 U/L Alanine Aminotransferase (ALT/SGPT) 80 H 12-78 U/L Alkaline Phosphatase 77 50-136 U/L Total Protein 7.3 6.0-8.3 g/dL Albumin 2.5 L 3.5-5.0 g/dL Hemoglobin A1c 6.2 H 4.0-6.0 % Estimated Average Glucose (eAG) 131 H 70-126 mg/dL ASSESSMENT: Acute hypoxic respiratory failure, requiring oxygen support. Pneumonia with methicillin-resistant Staphylococcus aureus. Positive HIV test. Leukocytosis secondary to IV steroids. Obesity. PLAN: Continue cefepime IV. Continue doxycycline IV. Continue Bactrim DS b.i.d.. Continue oxygen support. Continue bronchodilators. We will monitor electrolytes. This case was reviewed and discussed with my supervising physician and the above assessment and plan was formulated and agreed upon. ATTESTATION BY PHYSICIAN I have seen and examined the patient. I reviewed the documentation, medical decision making, and treatment plan as noted by the mid-level provider above. I agree with the findings and plan of care. [place] MD, [facility] May 30, 2024 11:14
[2024-05-30 11:35] LABS: ABG BASE EXCESS 2.2 mmol/L (-2.0-3.0); ABG OXYGEN SATURATION 93.5 % (94.0-98.0); ABG PCO2 38 mmHg (32-45); ABG PH 7.456 (7.350-7.450); CARBON MONOXIDE 0.4 % (0.5-1.5); DEVICE COMMENT RRMINI; HHb 6.5; PO2, ARTERIAL BG 68.7 mmHg (83.0-108.0); VENT MODE, BG NRB (ROOM AIR)
--- NOTE | 2024-05-30 22:35 | PN ---
[facility] PROGRESS NOTE Date Patient Seen: May 30, 2024 Time of Visit: 0900 Supervising Physician: [Fani Bacon MD Primary Care Physician: Stu Foss MD Outpatient Specialists: [ ] Inpatient Consults: Pulmonology PROBLEM LIST: Acute hypoxemic respiratory failure, POA Bilateral lower lobe bacterial pneumonia + MRSA POA, +Azra Suspected PCP PNA based on CT findings vs viral/Atypical PNA . POA HIV/AIDS positive POA Normocytic anemia, not POA Neutrophilia, POA Hyperglycemia, POA Obesity BMI of 32.3 Former smoker Acute cystitis, POA Fatty liver, POA Moderate hypoalbuminemia POA Previous COVID-19 infection INTERVAL HISTORY: 05/25/2024: At the time of my evaluation, the patient was lying in bed. She is currently on a non-rebreather mask. She reports feeling slightly better today. No laboratory data for review today. No new complaint. 05/28-patient is awake alert and oriented x3 currently receiving nebulizer treatment. She has been tolerating BiPAP overnight and currently on 10 L via Oxymizer which is less than 2 days ago which was 15 liters/minute saturating 96%. Patient has been afebrile and hemodynamically stable. Patient reports good urine output and bowel movements x2 yesterday. On laboratory white count is normal neutrophils the same as yesterday 89.8. Chemistry kidneys are doing good creatinine 0.5 GFR 114 glucose 150 mg/dL we will order hemoglobin A1c for tomorrow on chest x-ray. We will continue to follow ID recommendation. 05/29/24-patient is awake alert and oriented x3. She is sitting up on recliner chair with high FiO2 requirements 10 L via Oxymizer. We will increase Solu- Medrol to 40 mg IV q.6 hours and continue with doxycycline cefepime and increased Bactrim to full-dose two tablets p.o. TID. Patient's denies chills, chest pain palpitations. However she does report continues shortness for breath and gets winded easily with a few steps to the restroom. Patient to continue BiPAP at night and p.r.n.. Chest x-ray worsening left lower lobe pneumonia. 05/30/24- patient is awake alert and oriented x3 sitting up in recliner chair. P atient is easily winded with conversation currently on non-rebreather at 100% FiO2. His hypoxemia is worsening with the a pH of 7.45 pCO2 of 38 PO2 of 68.7 and a bicarb 26. We will have patient transferred to ICU and we will oxygen in the following order: with high-flow if high flow not enough will start high flow + NRB and if not enough then switch to bipap. She is high risk for decompensation although patient reports she does not feel any increased shortness of breath she is easily winded and tachycardic with ambulating short distance to the restroom. On 2D echo patient has not LVEF of greater than 55% with mild concentric left ventricular hypertrophy left ventricular diastolic function is normal. REVIEW OF SYSTEMS: General: No malaise or fever. Neurological: No fainting episodes or seizures. HEENT: No nasal congestion or nasal secretion. Respiratory: Yes for cough, yellow phlegm, shortness for breath on minimal exertion. Cardiac: No chest pain or palpitations. Gastrointestinal: No vomiting or diarrhea. Genitourinary: No dysuria hematuria. Skin: No rashes or lesions. Hematological: No bruises or bleeding. Musculoskeletal: No joint pains or arthralgias. Psychiatric: No depression or panic attacks. PHYSICAL EXAM: GENERAL: alert, weak, awake oriented x 3 HEENT: EOMI, Sclera non icteric, moist mucosa NECK: Supple, no JVD, trachea midline LUNGS: Fine crackles to bilateral lower posterior bases lung sounds. No wheezes HEART: Regular rate and rhythm. Normal S1 and S2, without murmurs ABD: Abdomen soft, nontender. Bowel sounds present EXT: No clubbing cyanosis or edema NEURO: Alert and oriented to person, follows commands Vital Signs (last 8hr) Date Time Temp Pulse Resp B/P (MAP) Pulse Ox O2 Delivery O2 Flow Rate FiO2 05/30/24 20:43 24 23 60 05/30/24 20:41 97 Hi-Flow N/C+ 30 80 05/30/24 20:00 99.3 101 24 115/62 97 N/C High Flow System 30.0 85 05/30/24 19:00 101 29 95/67 97 N/C High Flow System 30.0 85 05/30/24 18:56 95 22 HFNC Heated System N/Can 30.0 85 05/30/24 18:49 99 24 05/30/24 18:00 91 21 109/57 90 N/C High Flow System 35.0 40 05/30/24 17:30 97 27 104/61 90 N/C High Flow System 25.0 80 05/30/24 17:00 89 31 102/64 91 N/C High Flow System 25.0 80 05/30/24 16:30 78 14 104/61 92 N/C High Flow System 25.0 80 05/30/24 16:00 98.4 83 26 113/45 88 N/C High Flow System 25.0 80 05/30/24 15:30 89 28 123/72 89 N/C High Flow System 25.0 80 05/30/24 15:00 84 24 102/68 93 N/C High Flow System 25.0 80 05/30/24 14:30 77 22 104/62 97 N/C High Flow System 25.0 80 LABS: Hematology Labs: Test 05/30/24 03:44 Range/Units White Blood Count 9.0 # 4.8-10.8 K/uL Red Blood Count 3.83 L 4.00-5.50 MIL/uL Hemoglobin 12.6 12.0-16.0 g/dL Hematocrit 35.9 L 36-48 % Mean Corpuscular Volume 93.7 79-99 fL Mean Corpuscular Hemoglobin 32.9 27.0-33.0 pg Mean Corpuscular Hemoglobin Concent 35.1 32.0-36.0 g/dL Red Cell Distribution Width 11.2 11.0-15.5 % Platelet Count 254 130-400 K/uL Mean Platelet Volume 10.1 7.5-10.5 fL Nucleated Red Blood Cells 0.0 0.0-0.19 % Chemistry Labs: Test 05/30/24 09:35 05/30/24 03:44 05/29/24 03:49 Range/Units Sodium Level 135 L 136-145 mmol/L Potassium Level 4.0 3.5-5.1 mmol/L Chloride Level 98 L 101-111 mmol/L Carbon Dioxide Level 29 21-32 mmol/L Blood Urea Nitrogen 18 7-18 mg/dL Creatinine 0.6 0.5-1.0 mg/dL Glomerular Filtration Rate Calc 109 >90 mL/min Random Glucose 221 #H 70-105 mg/dL Total Calcium 8.8 8.5-10.1 mg/dL Magnesium Level 2.20 1.80-2.40 mg/dL Total Bilirubin 0.5 # 0.2-1.0 mg/dL Aspartate Amino Transf (AST/SGOT) 43 H 10-37 U/L Alanine Aminotransferase (ALT/SGPT) 80 H 12-78 U/L Alkaline Phosphatase 77 50-136 U/L Total Protein 7.3 6.0-8.3 g/dL Albumin 2.5 L 3.5-5.0 g/dL Hemoglobin A1c 6.2 H 4.0-6.0 % Estimated Average Glucose (eAG) 131 H 70-126 mg/dL DIAGNOSTICS / RADIOLOGY RESULTS: [ ] Signed PATIENT: RIO OSORIO MR#: [id number] : 1975 SEX: F AGE: 49 LOCATION: [facility] ORDER 04 STATUS: ADM IN REPORT#: [id number] SERVICE 56 REASON: assess EF ORDERING PHYSICIAN: MARGO LOGAN PROCEDURE: ECHO CMP - ECHO 2-D COMPLETE APPROVED REPORT EXAM: Two-dimensional and M-mode echocardiogram with Doppler and color Doppler. INDICATION ICD: Assess left ventricular function. 2D Dimensions RVDd 3.9 cm LVEF(%) 69.9 (>50%) LVED Vol(simp.) 97.0 mL IVSd 1.3 (0.7-1.1cm) FS(%) 39 % LVES Vol(simp.) 44.0 mL LVDd 4.1 (3.8-5.6cm) LA (2D) 2.9 (1.6-4.0cm) LVEF(%, simp.) 55 % PWd 1.3 (0.7-1.1cm) Ao Root(2D) 2.7 (2.0-3.7cm) LA ESV INDEX (4CH) 18.80 mL/m2 IVSs 1.7 cm LVOT diam 2.0 (1.8-2.4cm) LA ESV INDEX (2CH) 26.30 mL/m2 LVDs 2.5 (2.5-4.0cm) IVC diam 1.4 cm LA ESV INDEX (BP) 22.70 mL/m2 PWs 1.6 cm M-Mode Dimensions EPSS 0.3 cm LA (MM) 2.6 (1.6-4.0cm) Ao Root(MM) 2.7 (2.0-3.7cm) Aortic Valve AoV VTI 0.2 m Ao Mean GR 4.0 mmHg LVOT VTI 0.20 m SANDRA (VMAX) 2.8 cm2 SANDRA (VTI) 2.8 cm2 Mitral Valve MV E Vmax 55.8 cm/s DECEL Time 236 ms MV A Vmax 64.7 cm/s P 1/2 T 42 ms E/A ratio 0.9 MVA (PHT) 5.3 cm2 TDI E/E' Medial 10.5 E/E' Lateral 5.8 Medial E' Peak V 5.30 cm/s Lateral E' Peak V 9.70 cm/s Tricuspid Valve RAP (EST) 3 mmHg RVSP 3.0 mmHg Left Ventricle The left ventricle is normal size. Mild concentric left ventricular hypertrophy. The LVEF is > 55%. The left ventricular diastolic function is normal. Right Ventricle The right ventricle is normal size. The right ventricular systolic function is normal. Atria The left atrium size is normal. The right atrium size is normal. Aortic Valve The aortic valve is normal in structure. No aortic regurgitation is present. There is no aortic valvular stenosis. Mitral Valve The mitral valve is normal in structure. There is no mitral valve regurgitation noted. There is no mitral valve stenosis. Tricuspid Valve The tricuspid valve is normal in structure. There is no tricuspid valve regurgitation noted. Pulmonic Valve Pulmonic valve is not well visualized. There is no pulmonic valvular regurgitation. Great Vessels The aortic root is normal in size. The IVC is normal in size and collapses >50% with inspiration. Pericardium There is no pericardial effusion. Other Information Quality : Technically difficult due to body habitus Rhythm : NSR Conclusion The LVEF is > 55%. Mild concentric left ventricular hypertrophy. The left ventricular diastolic function is normal. DICTATED BY: FERMÍN GALLOWAY DO DATE: 05/30/24 0853 ELECTRONICALLY SIGNED BY: FERMÍN GALLOWAY DO DATE: 05/30/24 1109 PLAN PE ruled out via CTA POA Continue IS Acapella. CPT via vest with neb treatments Increase Solu-Medrol to 40 q.6 hours IV push Lasix 20 mg IV push daily 2D echo done Monitor for respiratory compromise closely Pulmonary toileting Antibiotics per ID Influenza and COVID-19 negative Guaifenesin for cough Continue duo nebs q.6 hours with CPT Continue IV antibiotics per ID, increase Bactrim ds to two tablets 3 times a day. GI and DVT prophylaxis CD4 count 4, reverse isolation. NEURO: Minimize central acting medications as possible. Maintain fall precautions, adequate lighting during the day PULMONARY: Supplemental 02 as needed. Maintain aspiration precautions at all times. Because of the concern of PCP pneumonia and HIV test was ordered and is pending confirmation. I am going to request a CD4 count in the meantime. Respiratory culture resulted positive for MRSA and Betty albicans. I am going to consult Infectious Disease specialist to guide antibiotic therapy. CARDIOVASCULAR: Follow hemodynamics. Vital signs per facility protocol. GI & NUTRITION: Continue with nutritional support. Continue stool softeners and laxatives as needed. KIDNEYS & ELECTROLYTES: Strict monitoring of intake, output and overall fluid balance. Avoid nephrotoxic medications to the extent possible. Medications to be dosed according to renal function. Monitor electrolytes and replace as needed ENDOCRINE: Maintain blood glucose between 100-180 at all times. Hypoglycemia protocol in place INFECTIOUS DISEASE: Trend temperature, WBC and procalcitonin level Follow cultures, deescalate antibiotics as soon as possible. Panculture if new onset fever Current antibiotic course Cefepime, doxycycline, Fluconazole, we will add Bactrim. We will follow the indication of the Infectious Disease specialist. ONCOLOGY/HEMATOLOGY/COAGULATION: Monitor for s/s of bleeding Monitor hemoglobin, coagulation studies as needed SKIN: Pressure ulcer prevention per facility protocol Specialty mattress ORTHO/REHAB: Continue PT/OT Prophylaxis: Continue GI and DVT prophylaxis Code Status: Full Resuscitation Disposition: TBD Other: Critical care time This patient required multiple bedside visits to manage the patient, review blood gases, coordinate with respiratory, nurses. I personally spent 45 minutes of critical care time in treatment of this patient. This includes patient management, time at bedside, time reviewing tests, labs, appropriate images and studies, documentation, and patient care coordination. This time excludes separately billable procedures. MARGO LOGAN [facility] May 30, 2024 22:35
[2024-05-31] VITALS (35 sets, daily range): BP systolic 105–133; BP diastolic 50–84; PULSE 77–111; RESP 22–61; TEMP 98.4–99; O2SAT 94–100
[2024-05-31 03:37] LABS: ABG BASE EXCESS -0.3 mmol/L (-2.0-3.0); ABG HCO3 24.5 mmol/L (21.0-28.0); ABG OXYGEN SATURATION 93.7 % (94.0-98.0); ABG PCO2 40 mmHg (32-45); PO2, ARTERIAL BG 68.1 mmHg (83.0-108.0)
[2024-05-31 04:21] LABS: HEMATOCRIT 36.6 % (36-48); MEAN CORPUSCULAR HEMOGLOBIN 33.1 pg (27.0-33.0); MEAN CORPUSCULAR HGB CONC 35.2 g/dL (32.0-36.0); MEAN CORPUSCULAR VOLUME 93.8 fL (79-99); RED BLOOD CELL COUNT(AUTO) 3.9 MIL/uL (4.00-5.50); RED CELL DISTRIBUTION WIDTH 11.4 % (11.0-15.5); WHITE BLOOD COUNT (AUTO) 14.6 K/uL (4.8-10.8)
[2024-05-31 04:32] LABS: ALBUMIN 2.6 g/dL (3.5-5.0); BILIRUBIN,TOTAL 0.3 mg/dL (0.2-1.0); CREATININE 0.5 mg/dL (0.5-1.0); MAGNESIUM 2.3 mg/dL (1.80-2.40); POTASSIUM 4.5 mmol/L (3.5-5.1); TOTAL PROTEIN, SERUM 7.3 g/dL (6.0-8.3)
[2024-05-31] MEDS: furoSEMIDE 20MG VIAL IV SCH (09:07)
--- NOTE | 2024-05-31 09:43 | PN ---
[facility] PROGRESS NOTE Date Patient Seen: May 31, 2024 Time of Visit: 09:43 Supervising Physician: Adan Garcia MD Primary Care Physician: Stu Foss MD Outpatient Specialists: [ ] Inpatient Consults: Pulmonology PROBLEM LIST: Acute hypoxemic respiratory failure, POA Bilateral lower lobe bacterial pneumonia + MRSA POA, +Azra Confirmed PCP PNA per Ag (serology), POA New HIV/AIDS positive POA Normocytic anemia, not POA Neutrophilia, POA Hyperglycemia, POA Obesity BMI of 32.3 Former smoker Acute cystitis, POA Fatty liver, POA Moderate hypoalbuminemia POA Previous COVID-19 infection INTERVAL HISTORY: 05/25/2024: At the time of my evaluation, the patient was lying in bed. She is currently on a non-rebreather mask. She reports feeling slightly better today. No laboratory data for review today. No new complaint. 05/28-patient is awake alert and oriented x3 currently receiving nebulizer treatment. She has been tolerating BiPAP overnight and currently on 10 L via Oxymizer which is less than 2 days ago which was 15 liters/minute saturating 96%. Patient has been afebrile and hemodynamically stable. Patient reports good urine output and bowel movements x2 yesterday. On laboratory white count is normal neutrophils the same as yesterday 89.8. Chemistry kidneys are doing good creatinine 0.5 GFR 114 glucose 150 mg/dL we will order hemoglobin A1c for tomorrow on chest x-ray. We will continue to follow ID recommendation. 05/29/24-patient is awake alert and oriented x3. She is sitting up on recliner chair with high FiO2 requirements 10 L via Oxymizer. We will increase Solu- Medrol to 40 mg IV q.6 hours and continue with doxycycline cefepime and increased Bactrim to full-dose two tablets p.o. TID. Patient's denies chills, chest pain palpitations. However she does report continues shortness for breath and gets winded easily with a few steps to the restroom. Patient to continue BiPAP at night and p.r.n.. Chest x-ray worsening left lower lobe pneumonia. 05/30/24- patient is awake alert and oriented x3 sitting up in recliner chair. Patient is easily winded with conversation currently on non-rebreather at 100% FiO2. His hypoxemia is worsening with the a pH of 7.45 pCO2 of 38 PO2 of 68.7 and a bicarb 26. We will have patient transferred to ICU and we will oxygen in the following order: with high-flow if high flow not enough will start high flow + NRB and if not enough then switch to bipap. She is high risk for decompensation although patient reports she does not feel any increased shortness of breath she is easily winded and tachycardic with ambulating short distance to the restroom. On 2D echo patient has not LVEF of greater than 55% with mild concentric left ventricular hypertrophy left ventricular diastolic function is normal. 05/31/24- Pt is awake alert and oriented x 3 she reamins in the icu due to high risk for resp decompensation. She is hemodynamically stable blood pressure 105/50 O2 sat of 95% with high-flow on 30 L with a FiO2 of 90% respiratory rate is 28 heart rate of 100 and afebrile. Patient gets easily winded when holding a conversation. Encouraged to lay down prone. She continues with high dose steroids Solu-Medrol 40 q.6 hours. Urine output 2.9 L in last 24 hours, WBCs are 14.6 H&H is 12.9/36.6 with a platelet count of 304 K. on chemistry sodium is 134 chloride is 98 BUN of 21 creatinine of 0.5 and GFR of 114 glucose of 151 mg/dL LDH is 483 albumin 2.6. On serology Pneumocystis sandra antigen +. Clinical findings and laboratory findings consistent with HIV/AIDS , ID is on the case and we will follow his recommendations. Per patient she has talked to her partner about her results, I educated her that is very important for her sexual partners to be notified and so they can get checked for HIV. Pt verbalized understanding. On chest XR left lower lobe infiltrates consistent with pneumonia. REVIEW OF SYSTEMS: General: No malaise or fever. Neurological: No fainting episodes or seizures. HEENT: No nasal congestion or nasal secretion. Respiratory: Yes for cough, yellow phlegm, shortness for breath on minimal exertion. Cardiac: No chest pain or palpitations. Gastrointestinal: No vomiting or diarrhea. Genitourinary: No dysuria hematuria. Skin: No rashes or lesions. Hematological: No bruises or bleeding. Musculoskeletal: No joint pains or arthralgias. Psychiatric: No depression or panic attacks. PHYSICAL EXAM: GENERAL: alert, weak, awake oriented x 3 HEENT: EOMI, Sclera non icteric, moist mucosa NECK: Supple, no JVD, trachea midline LUNGS: Fine crackles to bilateral lower posterior bases lung sounds. No wheezes HEART: Regular rate and rhythm. Normal S1 and S2, without murmurs ABD: Abdomen soft, nontender. Bowel sounds present EXT: No clubbing cyanosis or edema NEURO: Alert and oriented to person, follows commands Vital Signs (last 8hr) Date Time Temp Pulse Resp B/P (MAP) Pulse Ox O2 Delivery O2 Flow Rate FiO2 05/31/24 08:00 107 24 HFNC Heated System N/Can 30.0 100 05/31/24 07:53 98 Bi-PAP+ 30 75 05/31/24 07:30 98.4 85 30 118/84 97 BIPAP 75 05/31/24 07:15 84 32 97 05/31/24 07:05 81 26 05/31/24 07:05 86 26 75 05/31/24 07:00 82 28 99 05/31/24 06:46 86 29 130/78 97 BIPAP 75 05/31/24 06:00 83 22 105/66 97 BIPAP 75 05/31/24 05:02 86 28 132/78 98 BIPAP 75 05/31/24 04:00 100 Bi-PAP+ 30 75 05/31/24 04:00 98.4 77 26 119/73 100 BIPAP 75 05/31/24 03:00 85 36 133/77 99 BIPAP 60 05/31/24 02:10 86 24 60 05/31/24 02:00 89 25 110/73 98 BIPAP 60 LABS: Hematology Labs: Test 05/31/24 03:48 Range/Units White Blood Count 14.6 H 4.8-10.8 K/uL Red Blood Count 3.90 L 4.00-5.50 MIL/uL Hemoglobin 12.9 12.0-16.0 g/dL Hematocrit 36.6 36-48 % Mean Corpuscular Volume 93.8 79-99 fL Mean Corpuscular Hemoglobin 33.1 H 27.0-33.0 pg Mean Corpuscular Hemoglobin Concent 35.2 32.0-36.0 g/dL Red Cell Distribution Width 11.4 11.0-15.5 % Platelet Count 304 130-400 K/uL Mean Platelet Volume 10.1 7.5-10.5 fL Nucleated Red Blood Cells 0.0 0.0-0.19 % Chemistry Labs: Test 05/31/24 03:48 Range/Units Sodium Level 134 L 136-145 mmol/L Potassium Level 4.5 3.5-5.1 mmol/L Chloride Level 98 L 101-111 mmol/L Carbon Dioxide Level 28 21-32 mmol/L Blood Urea Nitrogen 21 H 7-18 mg/dL Creatinine 0.5 0.5-1.0 mg/dL Glomerular Filtration Rate Calc 114 >90 mL/min Random Glucose 151 H 70-105 mg/dL Total Calcium 9.1 8.5-10.1 mg/dL Magnesium Level 2.30 1.80-2.40 mg/dL Total Bilirubin 0.3 0.2-1.0 mg/dL Aspartate Amino Transf (AST/SGOT) 34 10-37 U/L Alanine Aminotransferase (ALT/SGPT) 84 H 12-78 U/L Alkaline Phosphatase 85 50-136 U/L Lactate Dehydrogenase 483 H 81-234 U/L Total Protein 7.3 6.0-8.3 g/dL Albumin 2.6 L 3.5-5.0 g/dL DIAGNOSTICS / RADIOLOGY RESULTS: [IMAGING REPORT Signed PATIENT: RIO OSORIO MR#: [id number] : 1975 SEX: F AGE: 49 LOCATION: [facility] ORDER [id number] STATUS: ADM IN REPORT#: [id number] SERVICE 0600 REASON: hypoxic resp failure ORDERING PHYSICIAN: MARGO LOGAN PROCEDURE: CXR1VW - CHEST 1VW CHEST 1VW REASON: hypoxic resp failure COMPARISON: 05/29/2024 FINDINGS: There is left lower lobe infiltrate consistent with pneumonia. Lungs are otherwise clear. Mediastinum and bony thorax are unremarkable. IMPRESSION: 1. Left lower lobe infiltrate consistent with pneumonia. DICTATED BY: LALO IBANEZ MD DATE: 05/31/24 1020 ELECTRONICALLY SIGNED BY: LALO IBANEZ MD DATE: 05/31/24 1022 PLAN NEURO: Minimize central acting medications as possible. Fall Precautions. Well lighted room through the day and minimize interruptions through the night to prevent acute delirium. PULMONARY: Supplemental 02 as needed Titrate Fio2 to keep Spo2 > or = 90% DuoNebs and CPT as needed IS hourly while awake for pulmonary hygiene Out of bed to chair as tolerated CARDIOVASCULAR: Follow hemodynamics. Titrate vasopressor to keep MAP >65 or systolic blood pressure >95mmHg telemetry Drips none LINES: PIV GI & NUTRITION: Continue nutritional support Aspirations precautions Prokinetic agents and laxatives as needed KIDNEYS & ELECTROLYTES: Strict monitoring of intake and output Daily weights Avoid nephrotoxic agents Monitor electrolytes and replace as needed Goal urine output of 30mL/hr or 0.5mL/kg/hr Urine output: [ ] Fluid Balance: [ ] ENDOCRINE: Maintain blood glucose between 100-180 at all times. Insulin sliding scale for blood glucose management INFECTIOUS DISEASE: Trend temperature. Clarke-culture if febrile. Micro: [ ] Sputum culture from 05/23/24 positive for MRSA, Betty albicans Pneumocystis carinii antigen positive Antibiotics: Cefepime Doxycycline Bactrim ds HEMATOLOGY & COAGULATION: Monitor H&H. Keep Hgb > 7 Transfuse 1 unit of PRBC for Hgb < 7 Transfuse 1 pack of platelets of platelets < 20, 000 Watch for any signs and symptoms of bleeding SKIN: Pressure ulcer prevention per facility protocol Rehab: PT/OT Prophylaxis: GI: pepcid DVT: Lovenox Code Status: Full Resuscitation Disposition: ICU Other: Total patient care time exceeds 45 minutes excluding all procedures. Case was discussed and seen with my supervising physician. The above plan was formulated and agreed upon. MARGO LOGAN May 31, 2024 09:43
--- NOTE | 2024-05-31 10:22 | HMCIMG ---
CHEST 1VW REASON: hypoxic resp failure COMPARISON: 05/29/2024 FINDINGS: There is left lower lobe infiltrate consistent with pneumonia. Lungs are otherwise clear. Mediastinum and bony thorax are unremarkable. IMPRESSION: 1. Left lower lobe infiltrate consistent with pneumonia.
--- NOTE | 2024-05-31 12:50 | PN ---
[facility] PROGRESS NOTE Date of Service: May 31, 2024 Time of Service: 12:47 SUBJECTIVE: [ ] Ms. Abdullahi is a 49-year-old female that was seen and examined today on 05/23/2024. Patient is a good historian and personal health. Patient's son Dagoberto Salcido is at bedside. Patient states that she came to the emergency department with a chief complaint of shortness of breath. Onset was two weeks ago. Location is to lungs. Duration is on and off. Character is described as "easily running out of air." Initially shortness and breath was only aggravated with climbing one or two flights of stairs but symptoms have progressively worsened and patient becomes short of breath even standing or walking short distances. There was no alleviating factors however previously symptoms were being controlled with daily morning albuterol nebulizer treatments. Patient denies any associated chest pain or dizziness. Patient reports an episode of COVID in December 2023. emergency department CBC unremarkable, chemistry unremarkable, urinalysis unremarkable, influenza screen negative, COVID negative, blood gas shows PO2 less than 45. Chest x-ray shows left lower lung pneumonia and minimal right lung base atelectasis. Upon arrival to the emergency department patient was placed on a BiPAP due to respiratory distress. 05/24/2024-patient was seen and examined at the bedside, still on BiPAP. Patient is able to speak, and says she feels much better than before. Patient says after COVID in December she developed severe bronchitis and she was on Solu-Medrol and albuterol, which did not help her much and later she had high fevers and shortness of breath which is when she came to the ED.Vitals afebrile pulse 76, RR 38 tachypneic , blood pressure 115/68, pulse oxygen 99 on BiPAP flow of 60. On ABG pH 7.47, pCO2 29, PO2 109.4, oxygen saturation 98.3. [id number] potassium 4.1 BUN15 creatinine 0.5 GFR 114. We will closely monitor the patient. 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 She was breathing better today. She has been on BiPAP all night but now he was on 100% non-rebreather with further efforts to continue to wean the oxygen requirements down. 05/27/24 patient is seen and examined at bedside, acute events overnight, case discussed with the RN, BP 131/64, afebrile, saturating 96-97% via Ventimask, FiO2 40%. The patient admits cough productive of clear phlegm. Serology tests reviewed, HIV preliminary positive, discussed with the patient. 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 We will continue the patient on IV antibiotics, continue fluconazole, continue to follow Pulmonary and ID input and recommendations. After provided in the preliminary results of HIV test, she denies any suicidal or homicidal ideations. 05/28 patient has been seen and examined, no acute events overnight, case discussed with the RN, during my visit patient is sitting comfortably in the chair, hemodynamically stable, off Ventimask, currently on 10 L via nasal cannula, saturating 98%, tolerated BiPAP overnight. she feels better, less shortness a breath, still admits cough productive of yellow phlegm. No chest pain. Getting IV antibiotics during my visit. HIV P24 antigen, nonreactive. We will continue to follow Pulmonary and Infectious Disease input and recommendations. 05/29 patient has been seen and examined, no acute events overnight, case discussed with the RN, during my visit patient is sitting comfortably in the chair, hemodynamically stable, remains on 10 L via nasal cannula, saturating 98% , still admits cough productive of yellow phlegm. No chest pain. Getting IV antibiotics during my visit. HIV P24 antigen, nonreactive. Pending CD4 cell count. We will continue to follow Pulmonary and Infectious Disease input and recommendations. 05/30 the patient has been seen and examined, no acute events overnight, BP 114/66, during my visit she is on Ventimask, saturating 95%, FiO2 60%. Without the Ventimask the patient desaturates to the low 70s. Patient tolerating BiPAP during the night. Still admits cough productive of thick yellow phlegm, no chest pain. Results of CD4 cell count reviewed, discussed with the patient. We will continue broad-spectrum IV antibiotics. Continue to follow Pulmonary and Infectious Disease input and recommendations. 05/31 the patient has been seen and examined, upgraded to the ICU, during my visit she is sitting in the chair, BP 113/72, heart rate of 109, she is on Oxymizer, 30 L, FiO2 100%. She is alert oriented x3, still admits cough productive of thick yellow phlegm, no chest pain. Hemoglobin 12.9, hematocrit 36.6, WBC 14.6. ABG with pH 7.4, pCO2 40, PO2. Chest x-ray shows left lower l obe infiltrate consistent with pneumonia. She is getting IV antibiotics during my visit. Patient will remain in the ICU, continue to follow critical Care as well as infectious disease input and recommendations. REVIEW OF SYSTEMS CONSTITUTIONAL: Respiratory distress on BiPAP Denies fevers, chills, or night sweats. No unintentional weight loss reported. NEUROLOGICAL: Denies headache, amaurosis fugax, motor weakness, sensory deficit, vertigo/spinning sensation, gait abnormalities, or tremors. ENT: No hearing loss, otalgia, otorrhea, rhinitis, rhinorrhea, hoarseness, or sore throat. CARDIOVASCULAR: Denies any exertional angina, dyspnea on exertion, orthopnea, paroxysmal nocturnal dyspnea, palpitations, life-threatening arrhythmias, claudication. PULMONARY: Denies any shortness of breath, cough, phlegm/sputum, hemoptysis, pleuritic chest pain. SLEEP: Denies morning headaches, daytime somnolence or napping. Denies difficulty falling asleep, staying asleep, waking from sleep. Denies knowledge of snoring. GASTROINTESTINAL: Denies any type of dysphagia to either liquids or solids. Denies nausea, vomiting, pyrosis, early satiety, abdominal pain, diarrhea, constipation, or changes in stool consistency or caliber. Denies coffee-ground emesis, hematemesis, hematochezia, or melanotic stools. GENITOURINARY: Denies frequency, urgency, nocturia, hematuria or incontinence (Storage/Irritative symptoms.) Low urinary stream, straining to void, urinary intermittency or hesitancy, splitting of the voiding stream, terminal dribbling. ENDOCRINOLOGIC: Denies polyuria, polydipsia, polyphagia or heat/cold intolerances. HEMATOLOGIC: Denies thrombophilia/previous clots, or coagulopathy/bleeding disorders. ONCOLOGIC: Denies personal history of malignancy. DERMATOLOGIC: Denies rashes or pruritus. PSYCHIATRIC: Denies any suicidal or homicidal ideation. Denies hallucinations. PHYSICAL EXAM GENERAL APPEARANCE: The patient is awake, alert, and oriented, in no acute cardiopulmonary distress. NEUROLOGICAL: Cranial nerves II-XII grossly intact. Motor is 5/5 in bilateral upper and lower extremities proximal to distal. No sensory deficits. HEENT: Face is symmetric. Pupils are equal and reactive. Extraocular movements are intact. NECK: Supple. No JVD. No thyromegaly. No submental, submandibular, pre- /postauricular, occipital or supraclavicular lymphadenopathy. CHEST: Normal chest expansion. No Telemetry. LUNGS: Absence of any rales, rhonchi or any wheezing. CARDIOVASCULAR: Regular. S1 and S2 normal. No appreciable rubs, murmurs or gallops. ABDOMEN: Soft, nontender, and nondistended. There is no rebound, voluntary guarding, or rigidity. : Deferred. No Souza. EXTREMITIES: Non-edematous and not cyanotic. No clubbing. Good capillary refill. SKIN: No skin breakdown. Vital Signs (last 8hr) Date Time Temp Pulse Resp B/P (MAP) Pulse Ox O2 Delivery O2 Flow Rate FiO2 05/31/24 11:47 111 26 05/31/24 11:07 99.0 109 24 113/72 94 OXIMYZER 100 05/31/24 09:46 109 55 122/69 92 OXIMYZER 100 05/31/24 08:46 102 29 117/66 99 OXIMYZER 100 05/31/24 08:00 107 24 HFNC Heated System N/Can 30.0 100 05/31/24 07:53 98 Bi-PAP+ 30 75 05/31/24 07:30 98.4 85 30 118/84 97 BIPAP 75 05/31/24 07:15 84 32 97 05/31/24 07:05 81 26 05/31/24 07:05 86 26 75 05/31/24 07:00 82 28 99 05/31/24 06:46 86 29 130/78 97 BIPAP 75 05/31/24 06:00 83 22 105/66 97 BIPAP 75 05/31/24 05:02 86 28 132/78 98 BIPAP 75 LABS: Laboratory: Test 05/31/24 03:48 05/31/24 03:36 05/30/24 11:31 Range/Units White Blood Count 14.6 H 4.8-10.8 K/uL Red Blood Count 3.90 L 4.00-5.50 MIL/uL Hemoglobin 12.9 12.0-16.0 g/dL Hematocrit 36.6 36-48 % Mean Corpuscular Volume 93.8 79-99 fL Mean Corpuscular Hemoglobin 33.1 H 27.0-33.0 pg Mean Corpuscular Hemoglobin Concent 35.2 32.0-36.0 g/dL Red Cell Distribution Width 11.4 11.0-15.5 % Platelet Count 304 130-400 K/uL Mean Platelet Volume 10.1 7.5-10.5 fL Nucleated Red Blood Cells 0.0 0.0-0.19 % Sodium Level 134 L 136-145 mmol/L Potassium Level 4.5 3.5-5.1 mmol/L Chloride Level 98 L 101-111 mmol/L Carbon Dioxide Level 28 21-32 mmol/L Blood Urea Nitrogen 21 H 7-18 mg/dL Creatinine 0.5 0.5-1.0 mg/dL Glomerular Filtration Rate Calc 114 >90 mL/min Random Glucose 151 H 70-105 mg/dL Total Calcium 9.1 8.5-10.1 mg/dL Magnesium Level 2.30 1.80-2.40 mg/dL Total Bilirubin 0.3 0.2-1.0 mg/dL Aspartate Amino Transf (AST/SGOT) 34 10-37 U/L Alanine Aminotransferase (ALT/SGPT) 84 H 12-78 U/L Alkaline Phosphatase 85 50-136 U/L Lactate Dehydrogenase 483 H 81-234 U/L Total Protein 7.3 6.0-8.3 g/dL Albumin 2.6 L 3.5-5.0 g/dL Blood Gas Specimen Type Arterial Arterial Blood pH 7.400 7.350-7.450 Arterial Blood Partial Pressure CO2 40 32-45 mmHg Arterial Blood Partial Pressure O2 68.1 L 83.0-108.0 mmHg Arterial Blood HCO3 24.5 21.0-28.0 mmol/L Arterial Blood Oxygen Saturation 93.7 L 94.0-98.0 % Arterial Blood Base Excess -0.3 -2.0-3.0 mmol/L Blood Gas Temperature 37.0 35.5-37.0 CELSIUS Blood Gas Respiration Rate 16.0 min. Blood Gas Vent Mode BIPAP 10,5 ROOM AIR FiO2 60.0 % Blood Gas Specimen Comment TAVARES RN ,RB Hemoglobin (Blood Gas) 13.2 12.0-16.0 g/dL Sodium (Blood Gas) 133 L 136-145 MMOL/L Bedside Potassium (Blood Gas) 3.8 3.4-4.5 MMOL/L Bedside Chloride (Blood Gas) 98 98-107 MMOL/L Bedside Glucose (Blood Gas) 157 H 65-95 MG/DL Bedside Ionized Calcium (Blood Gas) 1.16 1.15-1.33 MMOL/L Bedside Lactic Acid (Blood Gas) 2.13 H 0.36-0.75 MMOL/L Blood Gas Flow-by 15.00 0.00-15.00 L/min Current Medications Medications (Trade) Dose Ordered Sig/Julita Route PRN Reason Start Time Stop Time Status Last Admin Dose Admin Acetaminophen (TYLenol 650MG SUPPOSITORY) 650 mg Q6H PRN RC MILD PAIN (1-3) 05/23/24 20:30 06/22/24 20:29 Albuterol (DUOneb) 1 udvial [id number] IH 05/24/24 00:00 06/23/24 00:00 05/31/24 11:47 1 UDVIAL Azithromycin 250 ml @ 250 mls/hr Q24H IVPB 05/24/24 17:00 05/24/24 14:41 DC Azithromycin 250 ml @ 250 mls/hr Q24H STAT IVPB 05/23/24 17:17 05/24/24 14:41 DC 05/23/24 17:45 250 MLS/HR Cefepime HCl (MAXipime 2 gm vial) 2 gm Q12H IVPB 05/24/24 15:00 06/03/24 14:59 05/31/24 02:51 2 GM Ceftriaxone Sodium (ROCEphine 1G INJ) 1 gm Q24H IVPB 05/24/24 17:30 05/24/24 14:41 DC Doxycycline Hyclate 250 ml @ 125 mls/hr Q12H IV 05/24/24 16:30 06/03/24 16:29 05/31/24 04:41 125 MLS/HR Enoxaparin Sodium (Lovenox) 40 mg Q24H SQ 05/23/24 21:00 06/22/24 20:59 05/30/24 20:03 40 MG Famotidine (Pepcid 20mg Vial) 20 mg DAILY IV 05/24/24 09:00 06/23/24 08:59 05/31/24 09:07 20 MG Fluconazole/ Sodium Chloride 100 ml @ 100 mls/hr DAILY IV 05/26/24 09:00 05/27/24 15:57 DC 05/27/24 09:07 100 MLS/HR Furosemide (LASix 20MG VIAL) 20 mg DAILY IV 05/31/24 09:00 06/30/24 08:59 05/31/24 09:07 20 MG Guaifenesin/ Dextromethorphan (RobiTUSSin DM 200/20MG 10ML) 10 ml Q4H PRN PO COUGH 05/23/24 20:30 06/22/24 20:29 05/25/24 17:28 10 ML Levofloxacin/ Dextrose 100 ml @ 100 mls/hr Q24H IV 05/24/24 15:00 05/24/24 16:16 DC Magnesium Sulfate 50 ml @ 0 mls/hr PROTOCOL PRN IV hypomagnesemia 05/28/24 08:00 06/27/24 07:59 Methylprednisolone Sodium Succinate (Solu-medROL 40MG) 40 mg Q12H IVP 05/28/24 18:00 05/29/24 16:45 DC 05/29/24 05:32 40 MG Methylprednisolone Sodium Succinate (Solu-medROL 40MG) 40 mg Q6H IVP 05/29/24 16:30 06/28/24 16:29 05/31/24 11:19 40 MG Methylprednisolone Sodium Succinate (Solu-medROL 40MG) 40 mg Q8H IVP 05/24/24 01:00 05/25/24 21:51 DC 05/25/24 17:28 40 MG Methylprednisolone Sodium Succinate (Solu-medROL 40MG) 60 mg Q6H IVP 05/25/24 22:00 05/28/24 02:25 DC 05/27/24 23:55 60 MG Methylprednisolone Sodium Succinate (Solu-medROL 40MG) 60 mg Q6H IVP 05/28/24 06:00 05/28/24 08:27 DC 05/28/24 06:47 60 MG Metronidazole/ Sodium Chloride (flaGYL) 500 mg Q8H IV 05/25/24 22:00 05/25/24 21:56 DC Ondansetron HCl (zoFRAN 4MG INJ) 4 mg Q6H PRN IV NAUSEA/VOMITING 05/23/24 20:30 06/22/24 20:29 Potassium Chloride 100 ml @ 100 mls/hr AD PRN IV POTASSIUM PROTOCOL 05/28/24 08:00 06/27/24 07:59 Potassium Chloride (K-Dur/Klor-Con 20meq) 20 meq AD PRN PO POTASSIUM PROTOCOL 05/28/24 08:00 06/27/24 07:59 Potassium Chloride (KCl 10% Elixir 20meq/15ml) 20 meq AD PRN PO POTASSIUM PROTOCOL 05/28/24 08:00 06/27/24 07:59 Trimethoprim/ Sulfamethoxazole (BactRIM DS) 1 tab BID PO 05/26/24 21:00 05/29/24 16:18 DC 05/29/24 08:07 1 TAB Trimethoprim/ Sulfamethoxazole (BactRIM DS) 2 tab TID PO 05/29/24 16:30 06/05/24 20:59 05/31/24 09:07 2 TAB DIAGNOSTICS / RADIOLOGY: [ ] ASSESSMENT: Acute hypoxemic respiratory failure, POA Bilateral lower lobe bacterial pneumonia + MRSA POA, +Azra Suspected PCP PNA based on CT findings vs viral/Atypical PNA . POA HIV positive (preliminary report, confirmatory test nonreactive) POA Normocytic anemia, not POA Neutrophilia, POA Hyperglycemia, POA Obesity BMI of 32.3 Former smoker Acute cystitis, POA Fatty liver, POA Moderate hypoalbuminemia POA Previous COVID-19 infection PLAN: Patient is in PCU Continue the patient on telemetry monitoring. Continue to wean off oxygen. Continue to follow Pulmonary input and recommendation Continue to follow infectious disease input and recommendation Continue the patient on Solu-Medrol 40 mg IV every 6 hours Continue Bactrim two tablets p.o. t.i.d. Continue doxycycline and cefepime IV DuoNebs every 6 hours Replace electrolytes IV per protocol A.m. labs GI and DVT prophylaxis. Further orders to follow based on the above results Disposition: Remains admitted to the ICU, continue broad-spectrum antibiotics, continue to wean off oxygen. Continue to follow Pulmonary and Infectious Disease input and recommendations. Plan of action discussed with the patient, all questions answered, agreed and understood the information provided. Total ICU time spent greater than 30 minutes. GAIL WALDRON MD May 31, 2024 12:50
[2024-05-31 15:12] LABS: PNEUMOCYSTIS CARINII DFA Positive (Negative)
--- NOTE | 2024-05-31 15:33 | PN ---
INFECTIOUS DISEASE PROGRESS NOTE Date of Service: May 31, 2024 SUBJECTIVE: Mrs. Abdullahi is being seen today she remains oxygen. Currently on a high-flow oxygen, with shortness of breaths with exertion. Continues with productive cough. She remains on antibiotics. Awake, alert and oriented x3. She is sitting in chair at this time. Temperature 99.0 this morning. X-ray2 chest with passage of left lower lobe infiltrates consistent with pneumonia. WBCs 14.6 noted this morning. We will continue to follow patient. No family at bedside at this time. PHYSICAL EXAM EYES: Anicteric. Pupils equal and reactive. HENT: No oral thrush seen, moist Oral mucosa. NECK: Supple, no JVD or thyromegaly. LUNGS: Good air entry. No rales, no rhonchi. Dyspnea. Cough. Oxygen support. CARDIOVASCULAR: S1, S2 regular. No murmur heard. ABDOMEN: Soft, non tender, bowel sounds present, no organomegaly. CENTRAL NERVOUS SYSTEM: Awake, alert, oriented x 3. SKIN: No rashes, no swelling. LYMPHATICS: No peripheral lymphadenopathy. MUSCULOSKELETAL: No joint swelling, erythema or tenderness. EXTREMITIES: No cyanosis or clubbing. BACK: No deformity, no pressure ulcer. GENITOURINARY: No dysuria or hematuria. Vital Sign (Last 12 Hours) 05/31/24 05/31/24 05/31/24 05/31/24 04:00 04:00 05:02 06:00 Temp 98.4 Pulse 77 86 83 Resp 26 28 22 B/P (MAP) 119/73 132/78 105/66 Pulse Ox 100 100 98 97 O2 Delivery BIPAP Bi-PAP+ BIPAP BIPAP O2 Flow Rate 30 FiO2 75 75 75 75 05/31/24 05/31/24 05/31/24 05/31/24 06:46 07:00 07:05 07:05 Pulse 86 82 86 81 Resp 29 28 26 26 B/P (MAP) 130/78 Pulse Ox 97 99 O2 Delivery BIPAP FiO2 75 75 05/31/24 05/31/24 05/31/24 05/31/24 07:15 07:30 07:53 08:00 Temp 98.4 Pulse 84 85 107 Resp 32 30 24 B/P (MAP) 118/84 Pulse Ox 97 97 98 O2 Delivery BIPAP Bi-PAP+ HFNC Heated System N/Can O2 Flow Rate 30 30.0 FiO2 75 75 100 05/31/24 05/31/24 05/31/24 05/31/24 08:46 09:46 11:07 11:47 Temp 99.0 Pulse 102 109 109 111 Resp 29 55 24 26 B/P (MAP) 117/66 122/69 113/72 Pulse Ox 99 92 94 O2 Delivery OXIMYZER OXIMYZER OXIMYZER FiO2 100 100 100 05/31/24 05/31/24 12:00 12:48 Pulse 106 Resp 28 B/P (MAP) 114/68 Pulse Ox 99 99 O2 Delivery Bi-PAP+ OXIMYZER O2 Flow Rate 30 FiO2 75 90 Intake & Output (last 24hrs) 05/30/24 05/30/24 05/31/24 15:00 23:00 07:00 Intake Total 1060.0 ml 250.0 ml 350.0 ml Balance 1060.0 ml 250.0 ml 350.0 ml LABS: Laboratory: Test 05/31/24 03:48 05/31/24 03:36 05/30/24 11:31 Range/Units White Blood Count 14.6 H 4.8-10.8 K/uL Red Blood Count 3.90 L 4.00-5.50 MIL/uL Hemoglobin 12.9 12.0-16.0 g/dL Hematocrit 36.6 36-48 % Mean Corpuscular Volume 93.8 79-99 fL Mean Corpuscular Hemoglobin 33.1 H 27.0-33.0 pg Mean Corpuscular Hemoglobin Concent 35.2 32.0-36.0 g/dL Red Cell Distribution Width 11.4 11.0-15.5 % Platelet Count 304 130-400 K/uL Mean Platelet Volume 10.1 7.5-10.5 fL Nucleated Red Blood Cells 0.0 0.0-0.19 % Sodium Level 134 L 136-145 mmol/L Potassium Level 4.5 3.5-5.1 mmol/L Chloride Level 98 L 101-111 mmol/L Carbon Dioxide Level 28 21-32 mmol/L Blood Urea Nitrogen 21 H 7-18 mg/dL Creatinine 0.5 0.5-1.0 mg/dL Glomerular Filtration Rate Calc 114 >90 mL/min Random Glucose 151 H 70-105 mg/dL Total Calcium 9.1 8.5-10.1 mg/dL Magnesium Level 2.30 1.80-2.40 mg/dL Total Bilirubin 0.3 0.2-1.0 mg/dL Aspartate Amino Transf (AST/SGOT) 34 10-37 U/L Alanine Aminotransferase (ALT/SGPT) 84 H 12-78 U/L Alkaline Phosphatase 85 50-136 U/L Lactate Dehydrogenase 483 H 81-234 U/L Total Protein 7.3 6.0-8.3 g/dL Albumin 2.6 L 3.5-5.0 g/dL Blood Gas Specimen Type Arterial Arterial Blood pH 7.400 7.350-7.450 Arterial Blood Partial Pressure CO2 40 32-45 mmHg Arterial Blood Partial Pressure O2 68.1 L 83.0-108.0 mmHg Arterial Blood HCO3 24.5 21.0-28.0 mmol/L Arterial Blood Oxygen Saturation 93.7 L 94.0-98.0 % Arterial Blood Base Excess -0.3 -2.0-3.0 mmol/L Blood Gas Temperature 37.0 35.5-37.0 CELSIUS Blood Gas Respiration Rate 16.0 min. Blood Gas Vent Mode BIPAP 10,5 ROOM AIR FiO2 60.0 % Blood Gas Specimen Comment TAVARES RN ,RB Hemoglobin (Blood Gas) 13.2 12.0-16.0 g/dL Sodium (Blood Gas) 133 L 136-145 MMOL/L Bedside Potassium (Blood Gas) 3.8 3.4-4.5 MMOL/L Bedside Chloride (Blood Gas) 98 98-107 MMOL/L Bedside Glucose (Blood Gas) 157 H 65-95 MG/DL Bedside Ionized Calcium (Blood Gas) 1.16 1.15-1.33 MMOL/L Bedside Lactic Acid (Blood Gas) 2.13 H 0.36-0.75 MMOL/L Blood Gas Flow-by 15.00 0.00-15.00 L/min CHEST 1VW REASON: hypoxic resp failure COMPARISON: 05/29/2024 FINDINGS: There is left lower lobe infiltrate consistent with pneumonia. Lungs are otherwise clear. Mediastinum and bony thorax are unremarkable. IMPRESSION: 1. Left lower lobe infiltrate consistent with pneumonia. ASSESSMENT: Acute hypoxic respiratory failure, requiring oxygen support. Pneumonia with methicillin-resistant Staphylococcus aureus. Positive HIV test. Leukocytosis secondary to IV steroids. Obesity. PLAN: Continue cefepime IV. Continue doxycycline IV. Continue Bactrim DS b.i.d.. Continue oxygen support. Continue bronchodilators. We will monitor electrolytes. This case was reviewed and discussed with my supervising physician and the above assessment and plan was formulated and agreed upon. BENIGNO MCKEON STATISTICAL MACHINE MECHANIC May 31, 2024 15:33
[2024-06-01] VITALS (36 sets, daily range): BP systolic 102–150; BP diastolic 58–90; PULSE 76–111; RESP 21–36; TEMP 97–98.7; O2SAT 92–99
[2024-06-01 04:06] LABS: BASOPHILS # (AUTO) 0.01 K/uL (0.00-0.20); BASOPHILS % (AUTO) 0.1 % (0.0-5.0); HEMATOCRIT 38.9 % (36-48); IMMATURE GRANULOCYTE ABSOLUTE 0.09 K/uL (0-1); LYMPHOCYTES # (AUTO) 0.4 K/uL (1.0-4.8); LYMPHOCYTES % (AUTO) 3.4 % (21.0-51.0); MEAN CORPUSCULAR HEMOGLOBIN 32.7 pg (27.0-33.0); MEAN CORPUSCULAR VOLUME 93.5 fL (79-99); MONOCYTES # (AUTO) 0.4 K/uL (0.1-1.0); MONOCYTES % (AUTO) 3.4 % (3.0-13.0); NEUTROPHILS # (AUTO) 11.4 K/uL (1.8-7.7); NEUTROPHILS % (AUTO) 92.4 % (40.0-77.0); PLATELET COUNT (AUTO) 341 K/uL (130-400); RED BLOOD CELL COUNT(AUTO) 4.16 MIL/uL (4.00-5.50); RED CELL DISTRIBUTION WIDTH 11.3 % (11.0-15.5); WHITE BLOOD COUNT (AUTO) 12.4 K/uL (4.8-10.8)
[2024-06-01 04:23] LABS: ALBUMIN 2.7 g/dL (3.5-5.0); BILIRUBIN,TOTAL 0.3 mg/dL (0.2-1.0); CREATININE 0.6 mg/dL (0.5-1.0); MAGNESIUM 2.3 mg/dL (1.80-2.40); POTASSIUM 5.4 mmol/L (3.5-5.1); TOTAL PROTEIN, SERUM 7.4 g/dL (6.0-8.3)
[2024-06-01 04:58] LABS: WBC MORPHOLOGY CONSISTENT W/DIFF
--- NOTE | 2024-06-01 06:46 | HMCIMG ---
CHEST 1VW CLINICAL HISTORY: hypoxic resp failure COMPARISON: 05/31/2024 TECHNIQUE: Single view of the chest was obtained. FINDINGS: There is persistent left lung infiltrates. The cardiac size and mediastinum are unremarkable. The bony structures are within normal limits. IMPRESSION: Persistent left lung infiltrates.
[2024-06-01 08:12] LABS: RUBEOLA (MEASLES) IGG >300.0 AU/mL (Immune >16.4)
--- NOTE | 2024-06-01 09:55 | PN ---
[facility] PROGRESS NOTE Date of Service: Jun 01, 2024 Time of Service: 09:51 SUBJECTIVE: [ ] Ms. Abdullahi is a 49-year-old female that was seen and examined today on 05/23/2024. Patient is a good historian and personal health. Patient's son Dagoberto Salcido is at bedside. Patient states that she came to the emergency department with a chief complaint of shortness of breath. Onset was two weeks ago. Location is to lungs. Duration is on and off. Character is described as "easily running out of air." Initially shortness and breath was only aggravated with climbing one or two flights of stairs but symptoms have progressively worsened and patient becomes short of breath even standing or walking short distances. There was no alleviating factors however previously symptoms were being controlled with daily morning albuterol nebulizer treatments. Patient denies any associated chest pain or dizziness. Patient reports an episode of COVID in December 2023. emergency department CBC unremarkable, chemistry unremarkable, urinalysis unremarkable, influenza screen negative, COVID negative, blood gas shows PO2 less than 45. Chest x-ray shows left lower lung pneumonia and minimal right lung base atelectasis. Upon arrival to the emergency department patient was placed on a BiPAP due to respiratory distress. 05/24/2024-patient was seen and examined at the bedside, still on BiPAP. Patient is able to speak, and says she feels much better than before. Patient says after COVID in December she developed severe bronchitis and she was on Solu-Medrol and albuterol, which did not help her much and later she had high fevers and shortness of breath which is when she came to the ED.Vitals afebrile pulse 76, RR 38 tachypneic , blood pressure 115/68, pulse oxygen 99 on BiPAP flow of 60. On ABG pH 7.47, pCO2 29, PO2 109.4, oxygen saturation 98.3. [id number] potassium 4.1 BUN15 creatinine 0.5 GFR 114. We will closely monitor the patient. Skin Therapist consult noted waiting on the recommendation 05/25/24 patient was seen and examined and case discussed with RN and family by the bedside. She was breathing better today. She has been on BiPAP all night but now he was on 100% non-rebreather with further efforts to continue to wean the oxygen requirements down. 05/27/24 patient is seen and examined at bedside, acute events overnight, case discussed with the RN, BP 131/64, afebrile, saturating 96-97% via Ventimask, FiO2 40%. The patient admits cough productive of clear phlegm. Serology tests reviewed, HIV preliminary positive, discussed with the patient. 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 We will continue the patient on IV antibiotics, continue fluconazole, continue to follow Pulmonary and ID input and recommendations. After provided in the preliminary results of HIV test, she denies any suicidal or homicidal ideations. 05/28 patient has been seen and examined, no acute events overnight, case discussed with the RN, during my visit patient is sitting comfortably in the chair, hemodynamically stable, off Ventimask, currently on 10 L via nasal cannula, saturating 98%, tolerated BiPAP overnight. she feels better, less shortness a breath, still admits cough productive of yellow phlegm. No chest pain. Getting IV antibiotics during my visit. HIV P24 antigen, nonreactive. We will continue to follow Pulmonary and Infectious Disease input and recommendations. 05/29 patient has been seen and examined, no acute events overnight, case discussed with the RN, during my visit patient is sitting comfortably in the chair, hemodynamically stable, remains on 10 L via nasal cannula, saturating 98% , still admits cough productive of yellow phlegm. No chest pain. Getting IV antibiotics during my visit. HIV P24 antigen, nonreactive. Pending CD4 cell count. We will continue to follow Pulmonary and Infectious Disease input and recommendations. 05/30 the patient has been seen and examined, no acute events overnight, BP 114/66, during my visit she is on Ventimask, saturating 95%, FiO2 60%. Without the Ventimask the patient desaturates to the low 70s. Patient tolerating BiPAP during the night. Still admits cough productive of thick yellow phlegm, no chest pain. Results of CD4 cell count reviewed, discussed with the patient. We will continue broad-spectrum IV antibiotics. Continue to follow Pulmonary and Infectious Disease input and recommendations. 05/31 the patient has been seen and examined, upgraded to the ICU, during my visit she is sitting in the chair, BP 113/72, heart rate of 109, she is on Oxymizer, 30 L, FiO2 100%. She is alert oriented x3, still admits cough productive of thick yellow phlegm, no chest pain. Hemoglobin 12.9, hematocrit 36.6, WBC 14.6. ABG with pH 7.4, pCO2 40, PO2. Chest x-ray shows left lower l obe infiltrate consistent with pneumonia. She is getting IV antibiotics during my visit. Patient will remain in the ICU, continue to follow critical Care as well as infectious disease input and recommendations. 06/01 patient is seen and examined, sitting comfortable in chair, awake, following commands, remains on high-flow oxygen, FiO2 70%, 30 L, BP 117/67, heart rate of 78, respiratory rate of 30-36, saturating 100%, CBC with a hemoglobin 13.6, hematocrit 38.9, WBC 12.4. Platelet count of 341. Chest x-ray showing persistent left lung infiltrate, cardiac size and mediastinum unremarkable. The bony structures are within the normal limits. Patient getting IV antibiotics during my visit. Patient to continue with the high-dose steroids. Serology test positive for Pneumocystis sandra. Patient on Bactrim two tablets p.o. t.i.d.. Continue also doxycycline and cefepime IV. Continue to follow infectious disease input and recommendation. Continue to follow Pulmonary input and recommendations. REVIEW OF SYSTEMS CONSTITUTIONAL: Respiratory distress on BiPAP Denies fevers, chills, or night sweats. No unintentional weight loss reported. NEUROLOGICAL: Denies headache, amaurosis fugax, motor weakness, sensory deficit, vertigo/spinning sensation, gait abnormalities, or tremors. ENT: No hearing loss, otalgia, otorrhea, rhinitis, rhinorrhea, hoarseness, or sore throat. CARDIOVASCULAR: Denies any exertional angina, dyspnea on exertion, orthopnea, paroxysmal nocturnal dyspnea, palpitations, life-threatening arrhythmias, stella dication. PULMONARY: Denies any shortness of breath, cough, phlegm/sputum, hemoptysis, pleuritic chest pain. SLEEP: Denies morning headaches, daytime somnolence or napping. Denies difficulty falling asleep, staying asleep, waking from sleep. Denies knowledge of snoring. GASTROINTESTINAL: Denies any type of dysphagia to either liquids or solids. Denies nausea, vomiting, pyrosis, early satiety, abdominal pain, diarrhea, constipation, or changes in stool consistency or caliber. Denies coffee-ground emesis, hematemesis, hematochezia, or melanotic stools. GENITOURINARY: Denies frequency, urgency, nocturia, hematuria or incontinence (Storage/Irritative symptoms.) Low urinary stream, straining to void, urinary intermittency or hesitancy, splitting of the voiding stream, terminal dribbling. ENDOCRINOLOGIC: Denies polyuria, polydipsia, polyphagia or heat/cold intolerances. HEMATOLOGIC: Denies thrombophilia/previous clots, or coagulopathy/bleeding disorders. ONCOLOGIC: Denies personal history of malignancy. DERMATOLOGIC: Denies rashes or pruritus. PSYCHIATRIC: Denies any suicidal or homicidal ideation. Denies hallucinations. PHYSICAL EXAM GENERAL APPEARANCE: The patient is awake, alert, and oriented, in no acute cardiopulmonary distress. NEUROLOGICAL: Cranial nerves II-XII grossly intact. Motor is 5/5 in bilateral upper and lower extremities proximal to distal. No sensory deficits. HEENT: Face is symmetric. Pupils are equal and reactive. Extraocular movements are intact. NECK: Supple. No JVD. No thyromegaly. No submental, submandibular, pre- /postauricular, occipital or supraclavicular lymphadenopathy. CHEST: Normal chest expansion. No Telemetry. LUNGS: Absence of any rales, rhonchi or any wheezing. CARDIOVASCULAR: Regular. S1 and S2 normal. No appreciable rubs, murmurs or gallops. ABDOMEN: Soft, nontender, and nondistended. There is no rebound, voluntary guarding, or rigidity. : Deferred. No Souza. EXTREMITIES: Non-edematous and not cyanotic. No clubbing. Good capillary refill. SKIN: No skin breakdown. Vital Signs (last 8hr) Date Time Temp Pulse Resp B/P (MAP) Pulse Ox O2 Delivery O2 Flow Rate FiO2 06/01/24 07:09 83 36 06/01/24 07:08 83 36 70 06/01/24 04:07 82 26 70 06/01/24 04:00 97 Bi-PAP+ 75 06/01/24 03:46 78 30 117/67 100 BIPAP 75 06/01/24 02:46 76 27 107/81 100 BIPAP 75 LABS: Laboratory: Test 06/01/24 03:52 05/31/24 12:58 05/31/24 03:48 05/31/24 03:36 Range/Units White Blood Count 12.4 H 4.8-10.8 K/uL Red Blood Count 4.16 4.00-5.50 MIL/uL Hemoglobin 13.6 12.0-16.0 g/dL Hematocrit 38.9 36-48 % Mean Corpuscular Volume 93.5 79-99 fL Mean Corpuscular Hemoglobin 32.7 27.0-33.0 pg Mean Corpuscular Hemoglobin Concent 35.0 32.0-36.0 g/dL Red Cell Distribution Width 11.3 11.0-15.5 % Platelet Count 341 130-400 K/uL Mean Platelet Volume 10.0 7.5-10.5 fL Immature Granulocyte % (Auto) 0.7 0-1 % Neutrophils (%) (Auto) 92.4 H 40.0-77.0 % Lymphocytes (%) (Auto) 3.4 L 21.0-51.0 % Monocytes (%) (Auto) 3.4 3.0-13.0 % Eosinophils (%) (Auto) 0.0 0.0-8.0 % Basophils (%) (Auto) 0.1 0.0-5.0 % Neutrophils # (Auto) 11.4 H 1.8-7.7 K/uL Lymphocytes # (Auto) 0.4 L 1.0-4.8 K/uL Monocytes # (Auto) 0.4 0.1-1.0 K/uL Eosinophils # (Auto) 0.00 0.00-0.70 K/uL Basophils # (Auto) 0.01 0.00-0.20 K/uL Absolute Immature Granulocyte (auto 0.09 0-1 K/uL Nucleated Red Blood Cells 0.0 0.0-0.19 % White Cell Morphology Comment CONSISTENT W/DIFF Sodium Level 134 L 136-145 mmol/L Potassium Level 5.4 H 3.5-5.1 mmol/L Chloride Level 96 L 101-111 mmol/L Carbon Dioxide Level 31 21-32 mmol/L Blood Urea Nitrogen 22 H 7-18 mg/dL Creatinine 0.6 0.5-1.0 mg/dL Glomerular Filtration Rate Calc 109 >90 mL/min Random Glucose 146 H 70-105 mg/dL Lactic Acid Level 1.8 0.8-2.5 mmol/L Total Calcium 9.2 8.5-10.1 mg/dL Magnesium Level 2.30 1.80-2.40 mg/dL Total Bilirubin 0.3 0.2-1.0 mg/dL Aspartate Amino Transf (AST/SGOT) 27 10-37 U/L Alanine Aminotransferase (ALT/SGPT) 86 H 12-78 U/L Alkaline Phosphatase 94 50-136 U/L Total Protein 7.4 6.0-8.3 g/dL Albumin 2.7 L 3.5-5.0 g/dL Rubeola (Measles) IgG Antibody >300.0 Immune >16.4 AU/mL Lactate Dehydrogenase 483 H 81-234 U/L Blood Gas Specimen Type Arterial Arterial Blood pH 7.400 7.350-7.450 Arterial Blood Partial Pressure CO2 40 32-45 mmHg Arterial Blood Partial Pressure O2 68.1 L 83.0-108.0 mmHg Arterial Blood HCO3 24.5 21.0-28.0 mmol/L Arterial Blood Oxygen Saturation 93.7 L 94.0-98.0 % Arterial Blood Base Excess -0.3 -2.0-3.0 mmol/L Blood Gas Temperature 37.0 35.5-37.0 CELSIUS Blood Gas Respiration Rate 16.0 min. Blood Gas Vent Mode BIPAP 10,5 ROOM AIR FiO2 60.0 % Blood Gas Specimen Comment TAVARES CARBAJAL ,RB Test 05/30/24 11:31 Range/Units Hemoglobin (Blood Gas) 13.2 12.0-16.0 g/dL Sodium (Blood Gas) 133 L 136-145 MMOL/L Bedside Potassium (Blood Gas) 3.8 3.4-4.5 MMOL/L Bedside Chloride (Blood Gas) 98 98-107 MMOL/L Bedside Glucose (Blood Gas) 157 H 65-95 MG/DL Bedside Ionized Calcium (Blood Gas) 1.16 1.15-1.33 MMOL/L Bedside Lactic Acid (Blood Gas) 2.13 H 0.36-0.75 MMOL/L Blood Gas Flow-by 15.00 0.00-15.00 L/min Current Medications Medications (Trade) Dose Ordered Sig/Julita Route PRN Reason Start Time Stop Time Status Last Admin Dose Admin Acetaminophen (TYLenol 650MG SUPPOSITORY) 650 mg Q6H PRN RC MILD PAIN (1-3) 05/23/24 20:30 06/22/24 20:29 Albuterol (DUOneb) 1 udvial [id number] IH 05/24/24 00:00 06/23/24 00:00 06/01/24 07:09 1 UDVIAL Azithromycin 250 ml @ 250 mls/hr Q24H IVPB 05/24/24 17:00 05/24/24 14:41 DC Azithromycin 250 ml @ 250 mls/hr Q24H STAT IVPB 05/23/24 17:17 05/24/24 14:41 DC 05/23/24 17:45 250 MLS/HR Cefepime HCl (MAXipime 2 gm vial) 2 gm Q12H IVPB 05/24/24 15:00 06/03/24 14:59 06/01/24 03:57 2 GM Ceftriaxone Sodium (ROCEphine 1G INJ) 1 gm Q24H IVPB 05/24/24 17:30 05/24/24 14:41 DC Doxycycline Hyclate 250 ml @ 125 mls/hr Q12H IV 05/24/24 16:30 06/03/24 16:29 06/01/24 03:57 125 MLS/HR Enoxaparin Sodium (Lovenox) 40 mg Q24H SQ 05/23/24 21:00 06/22/24 20:59 05/31/24 22:22 40 MG Famotidine (Pepcid 20mg Vial) 20 mg DAILY IV 05/24/24 09:00 06/23/24 08:59 06/01/24 09:04 20 MG Fluconazole/ Sodium Chloride 100 ml @ 100 mls/hr DAILY IV 05/26/24 09:00 05/27/24 15:57 DC 05/27/24 09:07 100 MLS/HR Furosemide (LASix 20MG VIAL) 20 mg DAILY IV 05/31/24 09:00 06/30/24 08:59 06/01/24 09:07 20 MG Guaifenesin/ Dextromethorphan (RobiTUSSin DM 200/20MG 10ML) 10 ml Q4H PRN PO COUGH 05/23/24 20:30 06/22/24 20:29 05/25/24 17:28 10 ML Levofloxacin/ Dextrose 100 ml @ 100 mls/hr Q24H IV 05/24/24 15:00 05/24/24 16:16 DC Magnesium Sulfate 50 ml @ 0 mls/hr PROTOCOL PRN IV hypomagnesemia 05/28/24 08:00 06/27/24 07:59 Methylprednisolone Sodium Succinate (Solu-medROL 40MG) 40 mg Q12H IVP 05/28/24 18:00 05/29/24 16:45 DC 05/29/24 05:32 40 MG Methylprednisolone Sodium Succinate (Solu-medROL 40MG) 40 mg Q6H IVP 05/29/24 16:30 06/28/24 16:29 06/01/24 03:58 40 MG Methylprednisolone Sodium Succinate (Solu-medROL 40MG) 40 mg Q8H IVP 05/24/24 01:00 05/25/24 21:51 DC 05/25/24 17:28 40 MG Methylprednisolone Sodium Succinate (Solu-medROL 40MG) 60 mg Q6H IVP 05/25/24 22:00 05/28/24 02:25 DC 05/27/24 23:55 60 MG Methylprednisolone Sodium Succinate (Solu-medROL 40MG) 60 mg Q6H IVP 05/28/24 06:00 05/28/24 08:27 DC 05/28/24 06:47 60 MG Metronidazole/ Sodium Chloride (flaGYL) 500 mg Q8H IV 05/25/24 22:00 05/25/24 21:56 DC Ondansetron HCl (zoFRAN 4MG INJ) 4 mg Q6H PRN IV NAUSEA/VOMITING 05/23/24 20:30 06/22/24 20:29 Potassium Chloride 100 ml @ 100 mls/hr AD PRN IV POTASSIUM PROTOCOL 05/28/24 08:00 06/27/24 07:59 Potassium Chloride (K-Dur/Klor-Con 20meq) 20 meq AD PRN PO POTASSIUM PROTOCOL 05/28/24 08:00 06/27/24 07:59 Potassium Chloride (KCl 10% Elixir 20meq/15ml) 20 meq AD PRN PO POTASSIUM PROTOCOL 05/28/24 08:00 06/27/24 07:59 Trimethoprim/ Sulfamethoxazole (BactRIM DS) 1 tab BID PO 05/26/24 21:00 05/29/24 16:18 DC 05/29/24 08:07 1 TAB Trimethoprim/ Sulfamethoxazole (BactRIM DS) 2 tab TID PO 05/29/24 16:30 06/05/24 20:59 06/01/24 09:04 2 TAB DIAGNOSTICS / RADIOLOGY: [ ] CHEST 1VW CLINICAL HISTORY: hypoxic resp failure COMPARISON: 05/31/2024 TECHNIQUE: Single view of the chest was obtained. FINDINGS: There is persistent left lung infiltrates. The cardiac size and mediastinum are unremarkable. The bony structures are within normal limits. IMPRESSION: Persistent left lung infiltrates. ASSESSMENT: Acute hypoxemic respiratory failure, POA Bilateral lower lobe bacterial pneumonia + MRSA POA, +Azra Suspected PCP PNA based on CT findings vs viral/Atypical PNA . POA HIV positive (preliminary report, confirmatory test nonreactive) POA Normocytic anemia, not POA Neutrophilia, POA Hyperglycemia, POA Obesity BMI of 32.3 Former smoker Acute cystitis, POA Fatty liver, POA Moderate hypoalbuminemia POA Previous COVID-19 infection PLAN: Patient remains admitted to the ICU Continue the patient on BiPAP Continue the patient on Solu-Medrol IV 40 mg IV q.6 hours Continue Bactrim two tablets p.o. t.i.d. Continue broad-spectrum antibiotic with doxycycline, and cefepime IV Continue to follow Pulmonary input recommendation Continue to follow infectious disease input and recommendation Follow chest x-ray Continue bronchodilators per respiratory therapist Replace electrolytes IV per protocol A.m. labs GI and DVT prophylaxis. Further orders to follow based on the above results Doses of this patient remains guarded Disposition: Remains admitted to the ICU, continue broad-spectrum antibiotics, continue to wean off oxygen. Continue to follow Pulmonary and Infectious Disease input and recommendations. Plan of action discussed with the patient, all questions answered, agreed and understood the information provided. Total ICU time spent greater than 30 minutes. GAIL WALDRON MD Jun 01, 2024 09:55
--- NOTE | 2024-06-01 16:20 | PN ---
INFECTIOUS DISEASE FOLLOWUP NOTE DATE OF SERVICE: 06/01/2024 SUBJECTIVE: The patient is seen and examined at bedside today. The patient has no fever, no chills. No nausea, no vomiting, no abdominal pain. Remaining with high flow oxygen at 80% FiO2. No dysuria or hematuria. Appetite is good. No depression. No suicidal ideation. No rashes or itchiness. PHYSICAL EXAMINATION: VITAL SIGNS: Temperature 98.1. EYES: No icterus. Pupils equal and reactive. HENT: No oral thrush seen. Moist oral mucosa. NECK: Supple. No JVD or thyromegaly. LUNGS: Good air entry. Crackles bilaterally. CARDIOVASCULAR SYSTEM: S1, S2 regular. No murmur heard. ABDOMEN: Full, soft, nontender. Bowel sounds are present. CENTRAL NERVOUS SYSTEM: Awake, alert, oriented x 3. No focal deficits. SKIN: No rashes, no itchiness. LYMPHATIC: No peripheral lymphadenopathy. MUSCULOSKELETAL: No joint swelling, erythema, or tenderness. BACK: No deformity, no pressure ulcer. ASSESSMENT: A 49-year-old female admitted with cough, shortness of breath. CURRENT PROBLEMS: Include: * Pneumonia with MRSA. * Acute hypoxemic respiratory failure. * Possible PCP infection. * Newly diagnosed HIV. * Obesity. PLAN: * Continue Solu-Medrol. * Continue Bactrim. * Continue pain management. * Continue DVT prophylaxis. * Continue oxygen. * Continue antiemetic. * The patient will be followed up closely. TID: [id number] RECEIPT: [id number]
--- NOTE | 2024-06-01 18:14 | PN ---
[facility] PROGRESS NOTE Date Patient Seen: Jun 01, 2024 Time of Visit: 18:13 Supervising Physician: Adan Garcia MD Primary Care Physician: Stu Foss MD Outpatient Specialists: [ ] Inpatient Consults: Pulmonology PROBLEM LIST: Acute hypoxemic respiratory failure, POA requiring high Flow with 80% Bilateral lower lobe bacterial pneumonia + MRSA POA, +Azra Confirmed PCP PNA per Ag (serology), POA New HIV/AIDS positive POA Normocytic anemia, not POA Neutrophilia, POA Hyperglycemia, POA Obesity BMI of 32.3 Former smoker Acute cystitis, POA Fatty liver, POA Moderate hypoalbuminemia POA Previous COVID-19 infection INTERVAL HISTORY: 05/25/2024: At the time of my evaluation, the patient was lying in bed. She is currently on a non-rebreather mask. She reports feeling slightly better today. No laboratory data for review today. No new complaint. 05/28-patient is awake alert and oriented x3 currently receiving nebulizer treatment. She has been tolerating BiPAP overnight and currently on 10 L via Oxymizer which is less than 2 days ago which was 15 liters/minute saturating 96%. Patient has been afebrile and hemodynamically stable. Patient reports good urine output and bowel movements x2 yesterday. On laboratory white count is normal neutrophils the same as yesterday 89.8. Chemistry kidneys are doing good creatinine 0.5 GFR 114 glucose 150 mg/dL we will order hemoglobin A1c for tomorrow on chest x-ray. We will continue to follow ID recommendation. 05/29/24-patient is awake alert and oriented x3. She is sitting up on recliner chair with high FiO2 requirements 10 L via Oxymizer. We will increase Solu- Medrol to 40 mg IV q.6 hours and continue with doxycycline cefepime and increas ed Bactrim to full-dose two tablets p.o. TID. Patient's denies chills, chest pain palpitations. However she does report continues shortness for breath and gets winded easily with a few steps to the restroom. Patient to continue BiPAP at night and p.r.n.. Chest x-ray worsening left lower lobe pneumonia. 05/30/24- patient is awake alert and oriented x3 sitting up in recliner chair. Patient is easily winded with conversation currently on non-rebreather at 100% FiO2. His hypoxemia is worsening with the a pH of 7.45 pCO2 of 38 PO2 of 68.7 and a bicarb 26. We will have patient transferred to ICU and we will oxygen in the following order: with high-flow if high flow not enough will start high flow + NRB and if not enough then switch to bipap. She is high risk for decompensation although patient reports she does not feel any increased shortness of breath she is easily winded and tachycardic with ambulating short distance to the restroom. On 2D echo patient has not LVEF of greater than 55% with mild concentric left ventricular hypertrophy left ventricular diastolic function is normal. 05/31/24- Pt is awake alert and oriented x 3 she reamins in the icu due to high risk for resp decompensation. She is hemodynamically stable blood pressure 105/50 O2 sat of 95% with high-flow on 30 L with a FiO2 of 90% respiratory rate is 28 heart rate of 100 and afebrile. Patient gets easily winded when holding a conversation. Encouraged to lay down prone. She continues with high dose steroids Solu-Medrol 40 q.6 hours. Urine output 2.9 L in last 24 hours, WBCs are 14.6 H&H is 12.9/36.6 with a platelet count of 304 K. on chemistry sodium is 134 chloride is 98 BUN of 21 creatinine of 0.5 and GFR of 114 glucose of 151 mg/dL LDH is 483 albumin 2.6. On serology Pneumocystis sandra antigen +. Clinical findings and laboratory findings consistent with HIV/AIDS , ID is on the case and we will follow his recommendations. Per patient she has talked to her partner about her results, I educated her that is very important for her sexual partners to be notified and so they can get checked for HIV. Pt verbalized understanding. On chest XR left lower lobe infiltrates consistent with pneumonia. 06/01/24-patient sitting up in chair sleeping but was easily arousable to voice. Awake alert and oriented x3,. Currently on high-flow O2 with a FiO2 of 80%. No major overnight events per RN. she is hemodynamically stable and afebrile. Urine output is good 2.9 L in the last 24 hours. WBCs are 12.4 trended down from yesterday neutrophils are 92.4. On chemistry sodium 134 with a potassium of 5.4 chloride of 96 BUN of 22 creatinine of 0.6 and GFR of 109 mg/dL ALT 86 albumin 2.5. Patient continues on doxycycline, cefepime, and Bactrim DS two tablets 3 times a day. We will continue follow ID recommendations REVIEW OF SYSTEMS: General: No malaise or fever. Neurological: No fainting episodes or seizures. HEENT: No nasal congestion or nasal secretion. Respiratory: Yes for cough, yellow phlegm, shortness for breath on minimal exertion. Cardiac: No chest pain or palpitations. Gastrointestinal: No vomiting or diarrhea. Genitourinary: No dysuria hematuria. Skin: No rashes or lesions. Hematological: No bruises or bleeding. Musculoskeletal: No joint pains or arthralgias. Psychiatric: No depression or panic attacks. PHYSICAL EXAM: GENERAL: alert, weak, awake oriented x 3 HEENT: EOMI, Sclera non icteric, moist mucosa NECK: Supple, no JVD, trachea midline LUNGS: Fine crackles to bilateral lower posterior bases lung sounds. No wheezes HEART: Regular rate and rhythm. Normal S1 and S2, without murmurs ABD: Abdomen soft, nontender. Bowel sounds present EXT: No clubbing cyanosis or edema NEURO: Alert and oriented to person, follows commands Vital Signs (last 8hr) Date Time Temp Pulse Resp B/P (MAP) Pulse Ox O2 Delivery O2 Flow Rate FiO2 06/01/24 16:35 98.8 06/01/24 16:19 92 Hi-Flow N/C+ 30 80 Bi-PAP+ 06/01/24 15:46 100 30 116/68 92 N/C High Flow System 30.0 80 06/01/24 14:46 100 30 123/90 99 N/C High Flow System 30.0 80 06/01/24 13:46 108 21 109/65 94 N/C High Flow System 30.0 80 06/01/24 12:46 97.9 109 28 118/66 97 N/C High Flow System 30.0 80 06/01/24 12:00 97 Hi-Flow N/C+ 30 80 Bi-PAP+ 06/01/24 11:46 111 34 111/59 97 N/C High Flow System 30.0 80 06/01/24 11:19 93 24 06/01/24 11:18 93 24 HFNC Heated System N/Can 30.0 80 06/01/24 10:46 101 24 111/68 97 BIPAP 75 LABS: Hematology Labs: Test 06/01/24 03:52 Range/Units White Blood Count 12.4 H 4.8-10.8 K/uL Red Blood Count 4.16 4.00-5.50 MIL/uL Hemoglobin 13.6 12.0-16.0 g/dL Hematocrit 38.9 36-48 % Mean Corpuscular Volume 93.5 79-99 fL Mean Corpuscular Hemoglobin 32.7 27.0-33.0 pg Mean Corpuscular Hemoglobin Concent 35.0 32.0-36.0 g/dL Red Cell Distribution Width 11.3 11.0-15.5 % Platelet Count 341 130-400 K/uL Mean Platelet Volume 10.0 7.5-10.5 fL Immature Granulocyte % (Auto) 0.7 0-1 % Neutrophils (%) (Auto) 92.4 H 40.0-77.0 % Lymphocytes (%) (Auto) 3.4 L 21.0-51.0 % Monocytes (%) (Auto) 3.4 3.0-13.0 % Eosinophils (%) (Auto) 0.0 0.0-8.0 % Basophils (%) (Auto) 0.1 0.0-5.0 % Neutrophils # (Auto) 11.4 H 1.8-7.7 K/uL Lymphocytes # (Auto) 0.4 L 1.0-4.8 K/uL Monocytes # (Auto) 0.4 0.1-1.0 K/uL Eosinophils # (Auto) 0.00 0.00-0.70 K/uL Basophils # (Auto) 0.01 0.00-0.20 K/uL Absolute Immature Granulocyte (auto 0.09 0-1 K/uL Nucleated Red Blood Cells 0.0 0.0-0.19 % White Cell Morphology Comment CONSISTENT W/DIFF Chemistry Labs: Test 06/01/24 03:52 05/31/24 03:48 Range/Units Sodium Level 134 L 136-145 mmol/L Potassium Level 5.4 H 3.5-5.1 mmol/L Chloride Level 96 L 101-111 mmol/L Carbon Dioxide Level 31 21-32 mmol/L Blood Urea Nitrogen 22 H 7-18 mg/dL Creatinine 0.6 0.5-1.0 mg/dL Glomerular Filtration Rate Calc 109 >90 mL/min Random Glucose 146 H 70-105 mg/dL Lactic Acid Level 1.8 0.8-2.5 mmol/L Total Calcium 9.2 8.5-10.1 mg/dL Magnesium Level 2.30 1.80-2.40 mg/dL Total Bilirubin 0.3 0.2-1.0 mg/dL Aspartate Amino Transf (AST/SGOT) 27 10-37 U/L Alanine Aminotransferase (ALT/SGPT) 86 H 12-78 U/L Alkaline Phosphatase 94 50-136 U/L Total Protein 7.4 6.0-8.3 g/dL Albumin 2.7 L 3.5-5.0 g/dL Lactate Dehydrogenase 483 H 81-234 U/L DIAGNOSTICS / RADIOLOGY RESULTS: Signed PATIENT: RIO OSORIO MR#: [id number] : 1975 SEX: F AGE: 49 LOCATION: [facility] ORDER 2300 STATUS: ADM IN REPORT#: [id number] SERVICE 0600 REASON: hypoxic resp failure ORDERING PHYSICIAN: MARGO LOGAN PROCEDURE: CXR1VW - CHEST 1VW CHEST 1VW CLINICAL HISTORY: hypoxic resp failure COMPARISON: 05/31/2024 TECHNIQUE: Single view of the chest was obtained. FINDINGS: There is persistent left lung infiltrates. The cardiac size and mediastinum are unremarkable. The bony structures are within normal limits. IMPRESSION: Persistent left lung infiltrates. DICTATED BY: JLUIS RUTH DO DATE: 06/01/24 0637 ELECTRONICALLY SIGNED BY: JLUIS RUTH DO DATE: 06/01/24 0646 PLAN Follow ID recommendations Encouraged to prone herself Maintain O2 sats above 92% Monitor temperature trend Continue high-dose steroids Duo nebs q.6 hours NEURO: Minimize central acting medications as possible. Fall Precautions. Well lighted room through the day and minimize interruptions through the night to prevent acute delirium. PULMONARY: Supplemental 02 as needed Titrate Fio2 to keep Spo2 > or = 90% DuoNebs and CPT as needed IS hourly while awake for pulmonary hygiene Out of bed to chair as tolerated CARDIOVASCULAR: Follow hemodynamics. Titrate vasopressor to keep MAP >65 or systolic blood pressure >95mmHg telemetry Drips none LINES: PIV GI & NUTRITION: Continue nutritional support Aspirations precautions Prokinetic agents and laxatives as needed KIDNEYS & ELECTROLYTES: Strict monitoring of intake and output Daily weights Avoid nephrotoxic agents Monitor electrolytes and replace as needed Goal urine output of 30mL/hr or 0.5mL/kg/hr Urine output: [ ] Fluid Balance: [ ] ENDOCRINE: Maintain blood glucose between 100-180 at all times. Insulin sliding scale for blood glucose management INFECTIOUS DISEASE: Trend temperature. Clarke-culture if febrile. Micro: [ ] Sputum culture from 05/23/24 positive for MRSA, Betty albicans Pneumocystis carinii antigen positive Antibiotics: Cefepime Doxycycline Bactrim ds HEMATOLOGY & COAGULATION: Monitor H&H. Keep Hgb > 7 Transfuse 1 unit of PRBC for Hgb < 7 Transfuse 1 pack of platelets of platelets < 20, 000 Watch for any signs and symptoms of bleeding SKIN: Pressure ulcer prevention per facility protocol Rehab: PT/OT Prophylaxis: GI: pepcid DVT: Lovenox Code Status: Full Resuscitation Disposition: ICU Other: Total patient care time exceeds 45 minutes excluding all procedures. Case was discussed and seen with my supervising physician. The above plan was formulated and agreed upon. MARGO LOGAN Jun 01, 2024 18:13
[2024-06-01] MEDS: acetylCYSTeine 20% 200MG/ML 4ML VIAL IH SCH (23:34)
[2024-06-02] VITALS (49 sets, daily range): BP systolic 106–146; BP diastolic 51–81; PULSE 85–124; RESP 17–47; TEMP 98.4–99.7; O2SAT 90–100
[2024-06-02 05:13] LABS: BASOPHILS # (AUTO) 0.02 K/uL (0.00-0.20); BASOPHILS % (AUTO) 0.1 % (0.0-5.0); HEMATOCRIT 39.8 % (36-48); IMMATURE GRANULOCYTE ABSOLUTE 0.12 K/uL (0-1); LYMPHOCYTES # (AUTO) 0.5 K/uL (1.0-4.8); LYMPHOCYTES % (AUTO) 2.9 % (21.0-51.0); MEAN CORPUSCULAR HEMOGLOBIN 32.7 pg (27.0-33.0); MEAN CORPUSCULAR HGB CONC 35.2 g/dL (32.0-36.0); MONOCYTES # (AUTO) 0.9 K/uL (0.1-1.0); MONOCYTES % (AUTO) 5.2 % (3.0-13.0); NEUTROPHILS # (AUTO) 15.4 K/uL (1.8-7.7); NEUTROPHILS % (AUTO) 91.1 % (40.0-77.0); PLATELET COUNT (AUTO) 347 K/uL (130-400); RED BLOOD CELL COUNT(AUTO) 4.28 MIL/uL (4.00-5.50); RED CELL DISTRIBUTION WIDTH 11.6 % (11.0-15.5); WHITE BLOOD COUNT (AUTO) 16.9 K/uL (4.8-10.8)
[2024-06-02 05:33] LABS: ALBUMIN 2.6 g/dL (3.5-5.0); BILIRUBIN,TOTAL 0.4 mg/dL (0.2-1.0); CREATININE 0.6 mg/dL (0.5-1.0); MAGNESIUM 2.3 mg/dL (1.80-2.40); POTASSIUM 4.8 mmol/L (3.5-5.1); TOTAL PROTEIN, SERUM 7.3 g/dL (6.0-8.3)
--- NOTE | 2024-06-02 08:42 | PN ---
[facility] PROGRESS NOTE Date of Service: Jun 02, 2024 Time of Service: 08:39 SUBJECTIVE: [ ] Ms. Abdullahi is a 49-year-old female that was seen and examined today on 05/23/2024. Patient is a good historian and personal health. Patient's son Dagoberto Salcido is at bedside. Patient states that she came to the emergency department with a chief complaint of shortness of breath. Onset was two weeks ago. Location is to lungs. Duration is on and off. Character is described as "easily running out of air." Initially shortness and breath was only aggravated with climbing one or two flights of stairs but symptoms have progressively worsened and patient becomes short of breath even standing or walking short distances. There was no alleviating factors however previously symptoms were being controlled with daily morning albuterol nebulizer treatments. Patient denies any associated chest pain or dizziness. Patient reports an episode of COVID in December 2023. emergency department CBC unremarkable, chemistry unremarkable, urinalysis unremarkable, influenza screen negative, COVID negative, blood gas shows PO2 less than 45. Chest x-ray shows left lower lung pneumonia and minimal right lung base atelectasis. Upon arrival to the emergency department patient was placed on a BiPAP due to respiratory distress. 05/24/2024-patient was seen and examined at the bedside, still on BiPAP. Patient is able to speak, and says she feels much better than before. Patient says after COVID in December she developed severe bronchitis and she was on Solu-Medrol and albuterol, which did not help her much and later she had high fevers and shortness of breath which is when she came to the ED.Vitals afebrile pulse 76, RR 38 tachypneic , blood pressure 115/68, pulse oxygen 99 on BiPAP flow of 60. On ABG pH 7.47, pCO2 29, PO2 109.4, oxygen saturation 98.3. [id number] potassium 4.1 BUN15 creatinine 0.5 GFR 114. We will closely monitor the patient. Industrial Hygiene Engineer consult noted waiting on the recommendation 05/25/24 patient was seen and examined and case discussed with RN and family by the bedside. She was breathing better today. She has been on BiPAP all night but now he was on 100% non-rebreather with further efforts to continue to wean the oxygen requirements down. 05/27/24 patient is seen and examined at bedside, acute events overnight, case discussed with the RN, BP 131/64, afebrile, saturating 96-97% via Ventimask, FiO2 40%. The patient admits cough productive of clear phlegm. Serology tests reviewed, HIV preliminary positive, discussed with the patient. 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 We will continue the patient on IV antibiotics, continue fluconazole, continue to follow Pulmonary and ID input and recommendations. After provided in the preliminary results of HIV test, she denies any suicidal or homicidal ideations. 05/28 patient has been seen and examined, no acute events overnight, case discussed with the RN, during my visit patient is sitting comfortably in the chair, hemodynamically stable, off Ventimask, currently on 10 L via nasal cannula, saturating 98%, tolerated BiPAP overnight. she feels better, less shortness a breath, still admits cough productive of yellow phlegm. No chest pain. Getting IV antibiotics during my visit. HIV P24 antigen, nonreactive. We will continue to follow Pulmonary and Infectious Disease input and recommendations. 05/29 patient has been seen and examined, no acute events overnight, case discussed with the RN, during my visit patient is sitting comfortably in the chair, hemodynamically stable, remains on 10 L via nasal cannula, saturating 98% , still admits cough productive of yellow phlegm. No chest pain. Getting IV antibiotics during my visit. HIV P24 antigen, nonreactive. Pending CD4 cell count. We will continue to follow Pulmonary and Infectious Disease input and recommendations. 05/30 the patient has been seen and examined, no acute events overnight, BP 114/66, during my visit she is on Ventimask, saturating 95%, FiO2 60%. Without the Ventimask the patient desaturates to the low 70s. Patient tolerating BiPAP during the night. Still admits cough productive of thick yellow phlegm, no chest pain. Results of CD4 cell count reviewed, discussed with the patient. We will continue broad-spectrum IV antibiotics. Continue to follow Pulmonary and Infectious Disease input and recommendations. 05/31 the patient has been seen and examined, upgraded to the ICU, during my visit she is sitting in the chair, BP 113/72, heart rate of 109, she is on Oxymizer, 30 L, FiO2 100%. She is alert oriented x3, still admits cough productive of thick yellow phlegm, no chest pain. Hemoglobin 12.9, hematocrit 36.6, WBC 14.6. ABG with pH 7.4, pCO2 40, PO2. Chest x-ray shows left lower l obe infiltrate consistent with pneumonia. She is getting IV antibiotics during my visit. Patient will remain in the ICU, continue to follow critical Care as well as infectious disease input and recommendations. 06/01 patient is seen and examined, sitting comfortable in chair, awake, following commands, remains on high-flow oxygen, FiO2 70%, 30 L, BP 117/67, heart rate of 78, respiratory rate of 30-36, saturating 100%, CBC with a hemoglobin 13.6, hematocrit 38.9, WBC 12.4. Platelet count of 341. Chest x-ray showing persistent left lung infiltrate, cardiac size and mediastinum unremarkable. The bony structures are within the normal limits. Patient getting IV antibiotics during my visit. Patient to continue with the high-dose steroids. Serology test positive for Pneumocystis sandra. Patient on Bactrim two tablets p.o. t.i.d.. Continue also doxycycline and cefepime IV. Continue to follow infectious disease input and recommendation. Continue to follow Pulmonary input and recommendations. 06/02 patient is seen and examined at bedside, currently in prone position, alert oriented x3. CPT started last night, she has started having more loose phlegm expectorated. BP 114/74, tachycardic 114, saturating 95%, high-flow nasal cannula, 30 L, FiO2 80%. CBC with a hemoglobin 16.9, hemoglobin 14 0, hematocrit 39.8, platelet count 347. Chest x-ray shows persistent left lung infiltrate. 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 HIV preliminary positive, HIV P 24 nonreactive, HIV-one RNA by PCR [id number]. Serology test for toxoplasma currently pending. Patient on IV antibiotics as well as high-dose steroids. Continue to follow infectious Disease and Pulmonary input and recommendations. REVIEW OF SYSTEMS CONSTITUTIONAL: Respiratory distress on BiPAP Denies fevers, chills, or night sweats. No unintentional weight loss reported. NEUROLOGICAL: Denies headache, amaurosis fugax, motor weakness, sensory deficit, vertigo/spinning sensation, gait abnormalities, or tremors. ENT: No hearing loss, otalgia, otorrhea, rhinitis, rhinorrhea, hoarseness, or sore throat. CARDIOVASCULAR: Denies any exertional angina, dyspnea on exertion, orthopnea, paroxysmal nocturnal dyspnea, palpitations, life-threatening arrhythmias, claudication. PULMONARY: Denies any shortness of breath, cough, phlegm/sputum, hemoptysis, pleuritic chest pain. SLEEP: Denies morning headaches, daytime somnolence or napping. Denies difficulty falling asleep, staying asleep, waking from sleep. Denies knowledge of snoring. GASTROINTESTINAL: Denies any type of dysphagia to either liquids or solids. Denies nausea, vomiting, pyrosis, early satiety, abdominal pain, diarrhea, constipation, or changes in stool consistency or caliber. Denies coffee-ground emesis, hematemesis, hematochezia, or melanotic stools. GENITOURINARY: Denies frequency, urgency, nocturia, hematuria or incontinence (Storage/Irritative symptoms.) Low urinary stream, straining to void, urinary intermittency or hesitancy, splitting of the voiding stream, terminal dribbling. ENDOCRINOLOGIC: Denies polyuria, polydipsia, polyphagia or heat/cold intolerances. HEMATOLOGIC: Denies thrombophilia/previous clots, or coagulopathy/bleeding disorders. ONCOLOGIC: Denies personal history of malignancy. DERMATOLOGIC: Denies rashes or pruritus. PSYCHIATRIC: Denies any suicidal or homicidal ideation. Denies hallucinations. PHYSICAL EXAM GENERAL APPEARANCE: The patient is awake, alert, and oriented, in no acute cardiopulmonary distress. NEUROLOGICAL: Cranial nerves II-XII grossly intact. Motor is 5/5 in bilateral upper and lower extremities proximal to distal. No sensory deficits. HEENT: Face is symmetric. Pupils are equal and reactive. Extraocular movements are intact. NECK: Supple. No JVD. No thyromegaly. No submental, submandibular, pre- /postauricular, occipital or supraclavicular lymphadenopathy. CHEST: Normal chest expansion. No Telemetry. LUNGS: Absence of any rales, rhonchi or any wheezing. CARDIOVASCULAR: Regular. S1 and S2 normal. No appreciable rubs, murmurs or gallops. ABDOMEN: Soft, nontender, and nondistended. There is no rebound, voluntary guarding, or rigidity. : Deferred. No Souza. EXTREMITIES: Non-edematous and not cyanotic. No clubbing. Good capillary refill. SKIN: No skin breakdown. Vital Signs (last 8hr) Date Time Temp Pulse Resp B/P (MAP) Pulse Ox O2 Delivery O2 Flow Rate FiO2 06/02/24 08:04 95 Hi-Flow N/C+ 30 80 Bi-PAP+ 06/02/24 07:47 98.8 114 27 114/74 95 06/02/24 07:45 102 24 HFNC Heated System N/Can 30.0 80 06/02/24 06:54 91 32 06/02/24 06:51 91 32 70 06/02/24 05:00 88 25 121/78 100 BIPAP 80 06/02/24 04:00 91 26 117/80 100 BIPAP 80 06/02/24 04:00 100 Hi-Flow N/C+ 30 80 Bi-PAP+ 06/02/24 03:00 89 26 146/51 100 BIPAP 80 06/02/24 02:00 101 25 125/73 100 BIPAP 80 06/02/24 01:00 95 25 111/79 99 BIPAP 80 LABS: Laboratory: Test 06/02/24 04:50 06/01/24 03:52 05/31/24 12:58 Range/Units White Blood Count 16.9 H 4.8-10.8 K/uL Red Blood Count 4.28 4.00-5.50 MIL/uL Hemoglobin 14.0 12.0-16.0 g/dL Hematocrit 39.8 36-48 % Mean Corpuscular Volume 93.0 79-99 fL Mean Corpuscular Hemoglobin 32.7 27.0-33.0 pg Mean Corpuscular Hemoglobin Concent 35.2 32.0-36.0 g/dL Red Cell Distribution Width 11.6 11.0-15.5 % Platelet Count 347 130-400 K/uL Mean Platelet Volume 10.0 7.5-10.5 fL Immature Granulocyte % (Auto) 0.7 0-1 % Neutrophils (%) (Auto) 91.1 H 40.0-77.0 % Lymphocytes (%) (Auto) 2.9 L 21.0-51.0 % Monocytes (%) (Auto) 5.2 3.0-13.0 % Eosinophils (%) (Auto) 0.0 0.0-8.0 % Basophils (%) (Auto) 0.1 0.0-5.0 % Neutrophils # (Auto) 15.4 H 1.8-7.7 K/uL Lymphocytes # (Auto) 0.5 L 1.0-4.8 K/uL Monocytes # (Auto) 0.9 0.1-1.0 K/uL Eosinophils # (Auto) 0.00 0.00-0.70 K/uL Basophils # (Auto) 0.02 0.00-0.20 K/uL Absolute Immature Granulocyte (auto 0.12 0-1 K/uL Nucleated Red Blood Cells 0.0 0.0-0.19 % Sodium Level 132 L 136-145 mmol/L Potassium Level 4.8 3.5-5.1 mmol/L Chloride Level 96 L 101-111 mmol/L Carbon Dioxide Level 26 21-32 mmol/L Blood Urea Nitrogen 26 H 7-18 mg/dL Creatinine 0.6 0.5-1.0 mg/dL Glomerular Filtration Rate Calc 109 >90 mL/min Random Glucose 138 H 70-105 mg/dL Total Calcium 9.2 8.5-10.1 mg/dL Magnesium Level 2.30 1.80-2.40 mg/dL Total Bilirubin 0.4 0.2-1.0 mg/dL Aspartate Amino Transf (AST/SGOT) 33 10-37 U/L Alanine Aminotransferase (ALT/SGPT) 70 12-78 U/L Alkaline Phosphatase 100 50-136 U/L Total Protein 7.3 6.0-8.3 g/dL Albumin 2.6 L 3.5-5.0 g/dL White Cell Morphology Comment CONSISTENT W/DIFF Lactic Acid Level 1.8 0.8-2.5 mmol/L Rubeola (Measles) IgG Antibody >300.0 Immune >16.4 AU/mL Current Medications Medications (Trade) Dose Ordered Sig/Julita Route PRN Reason Start Time Stop Time Status Last Admin Dose Admin Acetaminophen (TYLenol 650MG SUPPOSITORY) 650 mg Q6H PRN RC MILD PAIN (1-3) 05/23/24 20:30 06/22/24 20:29 Acetylcysteine (MUComyst 20% 4ML) 400mg = 2ml [id number] IH 06/02/24 00:00 07/02/24 00:00 06/02/24 06:53 800 MG Albuterol (DUOneb) 1 udvial [id number] IH 05/24/24 00:00 06/23/24 00:00 06/02/24 06:53 1 UDVIAL Azithromycin 250 ml @ 250 mls/hr Q24H IVPB 05/24/24 17:00 05/24/24 14:41 DC Azithromycin 250 ml @ 250 mls/hr Q24H STAT IVPB 05/23/24 17:17 05/24/24 14:41 DC 05/23/24 17:45 250 MLS/HR Cefepime HCl (MAXipime 2 gm vial) 2 gm Q12H IVPB 05/24/24 15:00 06/03/24 14:59 06/02/24 02:36 2 GM Ceftriaxone Sodium (ROCEphine 1G INJ) 1 gm Q24H IVPB 05/24/24 17:30 05/24/24 14:41 DC Doxycycline Hyclate 250 ml @ 125 mls/hr Q12H IV 05/24/24 16:30 06/03/24 16:29 06/02/24 04:10 125 MLS/HR Enoxaparin Sodium (Lovenox) 40 mg Q24H SQ 05/23/24 21:00 06/22/24 20:59 06/01/24 20:52 40 MG Famotidine (Pepcid 20mg Vial) 20 mg DAILY IV 05/24/24 09:00 06/23/24 08:59 06/02/24 08:21 20 MG Fluconazole/ Sodium Chloride 100 ml @ 100 mls/hr DAILY IV 05/26/24 09:00 05/27/24 15:57 DC 05/27/24 09:07 100 MLS/HR Furosemide (LASix 20MG VIAL) 20 mg DAILY IV 05/31/24 09:00 06/30/24 08:59 06/02/24 08:21 20 MG Guaifenesin/ Dextromethorphan (RobiTUSSin DM 200/20MG 10ML) 10 ml Q4H PRN PO COUGH 05/23/24 20:30 06/22/24 20:29 05/25/24 17:28 10 ML Levofloxacin/ Dextrose 100 ml @ 100 mls/hr Q24H IV 05/24/24 15:00 05/24/24 16:16 DC Magnesium Sulfate 50 ml @ 0 mls/hr PROTOCOL PRN IV hypomagnesemia 05/28/24 08:00 06/27/24 07:59 Methylprednisolone Sodium Succinate (Solu-medROL 40MG) 40 mg Q12H IVP 05/28/24 18:00 05/29/24 16:45 DC 05/29/24 05:32 40 MG Methylprednisolone Sodium Succinate (Solu-medROL 40MG) 40 mg Q6H IVP 05/29/24 16:30 06/28/24 16:29 06/02/24 04:11 40 MG Methylprednisolone Sodium Succinate (Solu-medROL 40MG) 40 mg Q8H IVP 05/24/24 01:00 05/25/24 21:51 DC 05/25/24 17:28 40 MG Methylprednisolone Sodium Succinate (Solu-medROL 40MG) 60 mg Q6H IVP 05/25/24 22:00 05/28/24 02:25 DC 05/27/24 23:55 60 MG Methylprednisolone Sodium Succinate (Solu-medROL 40MG) 60 mg Q6H IVP 05/28/24 06:00 05/28/24 08:27 DC 05/28/24 06:47 60 MG Metronidazole/ Sodium Chloride (flaGYL) 500 mg Q8H IV 05/25/24 22:00 05/25/24 21:56 DC Ondansetron HCl (zoFRAN 4MG INJ) 4 mg Q6H PRN IV NAUSEA/VOMITING 05/23/24 20:30 06/22/24 20:29 Potassium Chloride 100 ml @ 100 mls/hr AD PRN IV POTASSIUM PROTOCOL 05/28/24 08:00 06/27/24 07:59 Potassium Chloride (K-Dur/Klor-Con 20meq) 20 meq AD PRN PO POTASSIUM PROTOCOL 05/28/24 08:00 06/27/24 07:59 Potassium Chloride (KCl 10% Elixir 20meq/15ml) 20 meq AD PRN PO POTASSIUM PROTOCOL 05/28/24 08:00 06/27/24 07:59 Trimethoprim/ Sulfamethoxazole (BactRIM DS) 1 tab BID PO 05/26/24 21:00 05/29/24 16:18 DC 05/29/24 08:07 1 TAB Trimethoprim/ Sulfamethoxazole (BactRIM DS) 2 tab TID PO 05/29/24 16:30 06/05/24 20:59 06/02/24 08:21 2 TAB DIAGNOSTICS / RADIOLOGY: [ ] ASSESSMENT: Acute hypoxemic respiratory failure, POA Bilateral lower lobe bacterial pneumonia + MRSA POA, +Azra Suspected PCP PNA based on CT findings vs viral/Atypical PNA . POA HIV positive (preliminary report, confirmatory test nonreactive) POA Normocytic anemia, not POA Neutrophilia, POA Hyperglycemia, POA Obesity BMI of 32.3 Former smoker Acute cystitis, POA Fatty liver, POA Moderate hypoalbuminemia POA Previous COVID-19 infection PLAN: Patient remains admitted to the ICU Continue the patient on BiPAP alternating with high-flow oxygen Continue the patient on high-dose steroids Continue Bactrim Continue broad-spectrum antibiotic with doxycycline, and cefepime IV Continue to follow Pulmonary input recommendation Continue to follow infectious disease input and recommendation Follow serology test for toxoplasma gone the Follow chest x-ray Continue bronchodilators per respiratory therapist Replace electrolytes IV per protocol A.m. labs GI and DVT prophylaxis. Further orders to follow based on the above results Prognosis of this patient remains guarded Disposition: Remains admitted to the ICU, pending improvement in clinical condition. Plan of action discussed with the patient, all questions answered, agreed and understood the information provided. Total ICU time spent greater than 30 minutes. GAIL WALDRON MD Jun 02, 2024 08:42
--- NOTE | 2024-06-02 09:06 | HMCIMG ---
CHEST 1VW REASON: hypoxic resp failure COMPARISON: 06/01/2024 FINDINGS: There is infiltrate in the left lung unchanged. Right lung is clear. Heart, mediastinum and bony thorax remain normal. IMPRESSION: 1. Left lower lobe infiltrate unchanged.+
--- NOTE | 2024-06-02 12:33 | PN ---
[facility] PROGRESS NOTE Date Patient Seen: Jun 02, 2024 Time of Visit: 12:33 Supervising Physician: Adan Garcia MD Primary Care Physician: Stu Foss MD Outpatient Specialists: [ ] Inpatient Consults: Pulmonology PROBLEM LIST: Severe Sepsis Acute hypoxemic respiratory failure, POA requiring high Flow with 80% Bilateral lower lobe bacterial pneumonia + MRSA POA, +Azra Confirmed PCP PNA per Ag (serology), POA New HIV/AIDS positive POA Normocytic anemia, not POA Neutrophilia, POA Hyperglycemia, POA Obesity BMI of 32.3 Former smoker Acute cystitis, POA Fatty liver, POA Moderate hypoalbuminemia POA Previous COVID-19 infection INTERVAL HISTORY: 05/25/2024: At the time of my evaluation, the patient was lying in bed. She is currently on a non-rebreather mask. She reports feeling slightly better today. No laboratory data for review today. No new complaint. 05/28-patient is awake alert and oriented x3 currently receiving nebulizer treatment. She has been tolerating BiPAP overnight and currently on 10 L via Oxymizer which is less than 2 days ago which was 15 liters/minute saturating 96%. Patient has been afebrile and hemodynamically stable. Patient reports good urine output and bowel movements x2 yesterday. On laboratory white count is normal neutrophils the same as yesterday 89.8. Chemistry kidneys are doing good creatinine 0.5 GFR 114 glucose 150 mg/dL we will order hemoglobin A1c for tomorrow on chest x-ray. We will continue to follow ID recommendation. 05/29/24-patient is awake alert and oriented x3. She is sitting up on recliner chair with high FiO2 requirements 10 L via Oxymizer. We will increase Solu- Medrol to 40 mg IV q.6 hours and continue with doxycycline cefepime and increased Bactrim to full-dose two tablets p.o. TID. Patient's denies chills, chest pain palpitations. However she does report continues shortness for breath and gets winded easily with a few steps to the restroom. Patient to continue BiPAP at night and p.r.n.. Chest x-ray worsening left lower lobe pneumonia. 05/30/24- patient is awake alert and oriented x3 sitting up in recliner chair. Patient is easily winded with conversation currently on non-rebreather at 100% FiO2. His hypoxemia is worsening with the a pH of 7.45 pCO2 of 38 PO2 of 68.7 and a bicarb 26. We will have patient transferred to ICU and we will oxygen in the following order: with high-flow if high flow not enough will start high flow + NRB and if not enough then switch to bipap. She is high risk for decompensation although patient reports she does not feel any increased shortness of breath she is easily winded and tachycardic with ambulating short distance to the restroom. On 2D echo patient has not LVEF of greater than 55% with mild concentric left ventricular hypertrophy left ventricular diastolic function is normal. 05/31/24- Pt is awake alert and oriented x 3 she reamins in the icu due to high risk for resp decompensation. She is hemodynamically stable blood pressure 105/50 O2 sat of 95% with high-flow on 30 L with a FiO2 of 90% respiratory rate is 28 heart rate of 100 and afebrile. Patient gets easily winded when holding a conversation. Encouraged to lay down prone. She continues with high dose steroids Solu-Medrol 40 q.6 hours. Urine output 2.9 L in last 24 hours, WBCs are 14.6 H&H is 12.9/36.6 with a platelet count of 304 K. on chemistry sodium is 134 chloride is 98 BUN of 21 creatinine of 0.5 and GFR of 114 glucose of 151 mg/dL LDH is 483 albumin 2.6. On serology Pneumocystis sandra antigen +. Clinical findings and laboratory findings consistent with HIV/AIDS , ID is on the case and we will follow his recommendations. Per patient she has talked to her partner about her results, I educated her that is very important for her sexual partners to be notified and so they can get checked for HIV. Pt verbalized understanding. On chest XR left lower lobe infiltrates consistent with pneumonia. 06/01/24-patient sitting up in chair sleeping but was easily arousable to voice. Awake alert and oriented x3,. Currently on high-flow O2 with a FiO2 of 80%. No major overnight events per RN. she is hemodynamically stable and afebrile. Urine output is good 2.9 L in the last 24 hours. WBCs are 12.4 trended down from yesterday neutrophils are 92.4. On chemistry sodium 134 with a potassium of 5.4 chloride of 96 BUN of 22 creatinine of 0.6 and GFR of 109 mg/dL ALT 86 albumin 2.5. Patient continues on doxycycline, cefepime, and Bactrim DS two tablets 3 times a day. We will continue follow ID recommendations 06/02/24-patient is awake alert and oriented x3 sitting up in recliner chair she has been proned this morning and tolerated well saturating 100% on high flow of with 80% FiO2. Now sitting up and saturating 92%. She reports that she is now able to expectorate some sputum. Patient has a temperature 99.9 she is sinus tachy in the monitor 115 beats per minute, respiratory rate of 28 and hemodynamically stable. Pancultured. Antibiotics per ID. Urine output is 1 L in the last 24 hours with a balance of -1.5L WBCs today are 16.9 neutrophils. We will order 500mls bolus of LR if no improvement we will give another bolus. Chemistry sodium was 132 chloride 96 BUN of 26, potassium is 4.8 BUN of 26 creatinine 0.6 GFR of 109 mg/dL albumin 2.6. we will order lactic. Per Dr Garcia recommends Vancomycin, this was communicated with ID. REVIEW OF SYSTEMS: General: No malaise or fever. Neurological: No fainting episodes or seizures. HEENT: No nasal congestion or nasal secretion. Respiratory: Yes for cough, yellow phlegm, shortness for breath on minimal exertion. Cardiac: No chest pain or palpitations. Gastrointestinal: No vomiting or diarrhea. Genitourinary: No dysuria hematuria. Skin: No rashes or lesions. Hematological: No bruises or bleeding. Musculoskeletal: No joint pains or arthralgias. Psychiatric: No depression or panic attacks. PHYSICAL EXAM: GENERAL: alert, weak, awake oriented x 3 HEENT: EOMI, Sclera non icteric, moist mucosa NECK: Supple, no JVD, trachea midline LUNGS: Fine crackles to bilateral lower posterior bases lung sounds. No wheezes HEART: Regular rate and rhythm. Normal S1 and S2, without murmurs ABD: Abdomen soft, nontender. Bowel sounds present EXT: No clubbing cyanosis or edema NEURO: Alert and oriented to person, follows commands Vital Signs (last 8hr) Date Time Temp Pulse Resp B/P (MAP) Pulse Ox O2 Delivery O2 Flow Rate FiO2 06/02/24 11:17 124 28 06/02/24 11:16 124 28 HFNC Heated System N/Can 30.0 80 06/02/24 08:46 118 27 117/69 94 N/C High Flow System 30.0 90 06/02/24 08:04 95 Hi-Flow N/C+ 30 80 Bi-PAP+ 06/02/24 07:47 98.8 114 27 114/74 95 06/02/24 07:45 102 24 HFNC Heated System N/Can 30.0 80 06/02/24 06:54 91 32 06/02/24 06:51 91 32 70 06/02/24 05:00 88 25 121/78 100 BIPAP 80 LABS: Hematology Labs: Test 06/02/24 04:50 06/01/24 03:52 Range/Units White Blood Count 16.9 H 4.8-10.8 K/uL Red Blood Count 4.28 4.00-5.50 MIL/uL Hemoglobin 14.0 12.0-16.0 g/dL Hematocrit 39.8 36-48 % Mean Corpuscular Volume 93.0 79-99 fL Mean Corpuscular Hemoglobin 32.7 27.0-33.0 pg Mean Corpuscular Hemoglobin Concent 35.2 32.0-36.0 g/dL Red Cell Distribution Width 11.6 11.0-15.5 % Platelet Count 347 130-400 K/uL Mean Platelet Volume 10.0 7.5-10.5 fL Immature Granulocyte % (Auto) 0.7 0-1 % Neutrophils (%) (Auto) 91.1 H 40.0-77.0 % Lymphocytes (%) (Auto) 2.9 L 21.0-51.0 % Monocytes (%) (Auto) 5.2 3.0-13.0 % Eosinophils (%) (Auto) 0.0 0.0-8.0 % Basophils (%) (Auto) 0.1 0.0-5.0 % Neutrophils # (Auto) 15.4 H 1.8-7.7 K/uL Lymphocytes # (Auto) 0.5 L 1.0-4.8 K/uL Monocytes # (Auto) 0.9 0.1-1.0 K/uL Eosinophils # (Auto) 0.00 0.00-0.70 K/uL Basophils # (Auto) 0.02 0.00-0.20 K/uL Absolute Immature Granulocyte (auto 0.12 0-1 K/uL Nucleated Red Blood Cells 0.0 0.0-0.19 % White Cell Morphology Comment CONSISTENT W/DIFF Chemistry Labs: Test 06/02/24 04:50 06/01/24 03:52 Range/Units Sodium Level 132 L 136-145 mmol/L Potassium Level 4.8 3.5-5.1 mmol/L Chloride Level 96 L 101-111 mmol/L Carbon Dioxide Level 26 21-32 mmol/L Blood Urea Nitrogen 26 H 7-18 mg/dL Creatinine 0.6 0.5-1.0 mg/dL Glomerular Filtration Rate Calc 109 >90 mL/min Random Glucose 138 H 70-105 mg/dL Total Calcium 9.2 8.5-10.1 mg/dL Magnesium Level 2.30 1.80-2.40 mg/dL Total Bilirubin 0.4 0.2-1.0 mg/dL Aspartate Amino Transf (AST/SGOT) 33 10-37 U/L Alanine Aminotransferase (ALT/SGPT) 70 12-78 U/L Alkaline Phosphatase 100 50-136 U/L Total Protein 7.3 6.0-8.3 g/dL Albumin 2.6 L 3.5-5.0 g/dL Lactic Acid Level 1.8 0.8-2.5 mmol/L DIAGNOSTICS / RADIOLOGY RESULTS: IMAGING REPORT Signed PATIENT: RIO OSORIO MR#: [id number] : 1975 SEX: F AGE: 49 LOCATION: [facility] ORDER 2300 STATUS: ADM IN REPORT#: [id number] SERVICE 0600 REASON: hypoxic resp failure ORDERING PHYSICIAN: MARGO LOGAN PROCEDURE: CXR1VW - CHEST 1VW CHEST 1VW REASON: hypoxic resp failure COMPARISON: 06/01/2024 FINDINGS: There is infiltrate in the left lung unchanged. Right lung is clear. Heart, mediastinum and bony thorax remain normal. IMPRESSION: 1. Left lower lobe infiltrate unchanged.+ DICTATED BY: LALO IBANEZ MD DATE: 06/02/24 0903 ELECTRONICALLY SIGNED BY: LALO IBANEZ MD DATE: 06/02/24 0906 PLAN Follow ID recommendations Encouraged to prone herself Maintain O2 sats above 92% Monitor temperature trend Continue high-dose steroids Duo nebs q.6 hours Abx Per ID Lactic acid. Due to severe sob will not do 30ml/kg bolus at one time if pt not hypotensive to avoid worsening resp status Instead will try pulsating boluses of 500 mL of NS as tolerated. Follow respiratory status closely as she is high risk for decompensation. NEURO: Minimize central acting medications as possible. Fall Precautions. Well lighted room through the day and minimize interruptions through the night to prevent acute delirium. PULMONARY: Supplemental 02 as needed Titrate Fio2 to keep Spo2 > or = 90% DuoNebs and CPT as needed IS hourly while awake for pulmonary hygiene Out of bed to chair as tolerated CARDIOVASCULAR: Follow hemodynamics. Titrate vasopressor to keep MAP >65 or systolic blood pressure >95mmHg telemetry Drips none LINES: PIV GI & NUTRITION: Continue nutritional support Aspirations precautions Prokinetic agents and laxatives as needed KIDNEYS & ELECTROLYTES: Strict monitoring of intake and output Daily weights Avoid nephrotoxic agents Monitor electrolytes and replace as needed Goal urine output of 30mL/hr or 0.5mL/kg/hr ENDOCRINE: Maintain blood glucose between 100-180 at all times. Insulin sliding scale for blood glucose management INFECTIOUS DISEASE: Trend temperature. Clarke-culture if febrile. Micro: [ ] Sputum culture from 05/23/24 positive for MRSA, Betty albicans Pneumocystis carinii antigen positive Panculture: 06/02/24 Blood cultures Urine cultures Respiratory culture Antibiotics: Cefepime Doxycycline Bactrim ds HEMATOLOGY & COAGULATION: Monitor H&H. Keep Hgb > 7 Transfuse 1 unit of PRBC for Hgb < 7 Transfuse 1 pack of platelets of platelets < 20, 000 Watch for any signs and symptoms of bleeding SKIN: Pressure ulcer prevention per facility protocol Rehab: PT/OT Prophylaxis: GI: pepcid DVT: Lovenox Code Status: Full Resuscitation Disposition: ICU Other: Total patient care time exceeds 45 minutes excluding all procedures. Case was discussed and seen with my supervising physician. The above plan was formulated and agreed upon. MARGO LOGAN Jun 02, 2024 12:33
[2024-06-02] MEDS: 0.9% NACL 500ML IV.SOLN 500 ML IV ONE (13:00)
--- NOTE | 2024-06-02 13:00 | NUR ---
I HAVE NOW ASSUMED CARE OF PT FROM HUI CARBAJAL- REPORT RECEIVED. PT IS UP SITTING IN CHAIR - I HAVE NOTED THAT PT IS EATING BUT IS DYSPNEIC AND NEEDS BREAKS BETWEEN . I OFFERED MY ASSISTANCE , PT STATES SHE IS "OK". CALL LIGHT WITHIN REACH.
--- NOTE | 2024-06-02 14:31 | NUR ---
HELPED PT WITH PARTIAL BED BATH. ASISTED BACK TO BED. ENCOURAGED PRONE POSITIONING. CURRENTLY LYING ON HER RT SIDE.
[2024-06-02] MEDS ORDERED: LACTATED RINGERS 1000ML IV SCH (20:00)
[2024-06-02] MEDS: 0.9% NACL 500ML IV.SOLN 500 ML IV SCH (21:34)
[2024-06-03] VITALS (56 sets, daily range): BP systolic 107–146; BP diastolic 53–93; PULSE 70–125; RESP 20–67; TEMP 98.1–98.7; O2SAT 92–100
[2024-06-03 05:00] LABS: BASOPHILS # (AUTO) 0.01 K/uL (0.00-0.20); BASOPHILS % (AUTO) 0.1 % (0.0-5.0); HEMATOCRIT 36.7 % (36-48); LYMPHOCYTES # (AUTO) 0.4 K/uL (1.0-4.8); LYMPHOCYTES % (AUTO) 3.1 % (21.0-51.0); MEAN CORPUSCULAR HEMOGLOBIN 32.2 pg (27.0-33.0); MEAN CORPUSCULAR HGB CONC 34.9 g/dL (32.0-36.0); MEAN CORPUSCULAR VOLUME 92.4 fL (79-99); MONOCYTES # (AUTO) 0.6 K/uL (0.1-1.0); MONOCYTES % (AUTO) 4.8 % (3.0-13.0); NEUTROPHILS # (AUTO) 12.3 K/uL (1.8-7.7); NEUTROPHILS % (AUTO) 91.3 % (40.0-77.0); PLATELET COUNT (AUTO) 301 K/uL (130-400); RED BLOOD CELL COUNT(AUTO) 3.97 MIL/uL (4.00-5.50); RED CELL DISTRIBUTION WIDTH 11.3 % (11.0-15.5); WHITE BLOOD COUNT (AUTO) 13.5 K/uL (4.8-10.8)
[2024-06-03 05:21] LABS: ALBUMIN 2.5 g/dL (3.5-5.0); BILIRUBIN,TOTAL 0.4 mg/dL (0.2-1.0); CREATININE 0.5 mg/dL (0.5-1.0); MAGNESIUM 2.2 mg/dL (1.80-2.40); POTASSIUM 4.8 mmol/L (3.5-5.1); TOTAL PROTEIN, SERUM 6.6 g/dL (6.0-8.3)
[2024-06-03 07:58] LABS: ABG BASE EXCESS -0.1 mmol/L (-2.0-3.0); ABG HCO3 23.6 mmol/L (21.0-28.0); ABG OXYGEN SATURATION 89.5 % (94.0-98.0); ABG PCO2 35 mmHg (32-45); ABG PH 7.441 (7.350-7.450); CARBON MONOXIDE 0.8 % (0.5-1.5); DEVICE COMMENT JUDY RN LR; HHb 10.4; VENT MODE, BG HFNC 30L 80 (ROOM AIR)
[2024-06-03 08:45] LABS: RAPID GROUP A STREP negative (NEGATIVE)
[2024-06-03 08:55] LABS: COVID19 (SARS ANTIGEN RAPID) PRESUMPTIVE NEGATIVE (NEGATIVE); INFLUENZA TYPE A Negative For Type A (NEGATIVE); INFLUENZA TYPE B Negative For Type B (NEGATIVE)
--- NOTE | 2024-06-03 15:59 | NUR ---
DIRECTIVES Sw spoke to pt at length regarding MPOA, Adv Directives and Code status. Pt states she is expecting her 2 children tonight about midnight and she wants to have a conversation with them before signing directives. Encouraged pt to discuss her wishes, regarding vent, dialysis, feeding tubes, resuscitation, so that they are prepared for what could possibly come up. Discussed option to have counselor from [facility] come meet with her and provide resources available to her thru their agency. Pt wants to talk to her kids before she meets with a counselor. SW to follow up in am. Nurse Smith updated on conversation
--- NOTE | 2024-06-03 16:08 | PN ---
[facility] PROGRESS NOTE Date of Service: Jun 03, 2024 Time of Service: 16:02 SUBJECTIVE: [ ] Ms. Abdullahi is a 49-year-old female that was seen and examined today on 05/23/2024. Patient is a good historian and personal health. Patient's son Dagoberto Salcido is at bedside. Patient states that she came to the emergency department with a chief complaint of shortness of breath. Onset was two weeks ago. Location is to lungs. Duration is on and off. Character is described as "easily running out of air." Initially shortness and breath was only aggravated with climbing one or two flights of stairs but symptoms have progressively worsened and patient becomes short of breath even standing or walking short distances. There was no alleviating factors however previously symptoms were being controlled with daily morning albuterol nebulizer treatments. Patient denies any associated chest pain or dizziness. Patient reports an episode of COVID in December 2023. emergency department CBC unremarkable, chemistry unremarkable, urinalysis unremarkable, influenza screen negative, COVID negative, blood gas shows PO2 less than 45. Chest x-ray shows left lower lung pneumonia and minimal right lung base atelectasis. Upon arrival to the emergency department patient was placed on a BiPAP due to respiratory distress. 05/24/2024-patient was seen and examined at the bedside, still on BiPAP. Patient is able to speak, and says she feels much better than before. Patient says after COVID in December she developed severe bronchitis and she was on Solu-Medrol and albuterol, which did not help her much and later she had high fevers and shortness of breath which is when she came to the ED.Vitals afebrile pulse 76, RR 38 tachypneic , blood pressure 115/68, pulse oxygen 99 on BiPAP flow of 60. On ABG pH 7.47, pCO2 29, PO2 109.4, oxygen saturation 98.3. [id number] potassium 4.1 BUN15 creatinine 0.5 GFR 114. We will closely monitor the patient. [employer] Consultant consult noted waiting on the recommendation 05/25/24 patient was seen and examined and case discussed with RN and family by the bedside. She was breathing better today. She has been on BiPAP all night but now he was on 100% non-rebreather with further efforts to continue to wean the oxygen requirements down. 05/27/24 patient is seen and examined at bedside, acute events overnight, case discussed with the RN, BP 131/64, afebrile, saturating 96-97% via Ventimask, FiO2 40%. The patient admits cough productive of clear phlegm. Serology tests reviewed, HIV preliminary positive, discussed with the patient. 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 We will continue the patient on IV antibiotics, continue fluconazole, continue to follow Pulmonary and ID input and recommendations. After provided in the preliminary results of HIV test, she denies any suicidal or homicidal ideations. 05/28 patient has been seen and examined, no acute events overnight, case discussed with the RN, during my visit patient is sitting comfortably in the chair, hemodynamically stable, off Ventimask, currently on 10 L via nasal cannula, saturating 98%, tolerated BiPAP overnight. she feels better, less shortness a breath, still admits cough productive of yellow phlegm. No chest pain. Getting IV antibiotics during my visit. HIV P24 antigen, nonreactive. We will continue to follow Pulmonary and Infectious Disease input and recommendations. 05/29 patient has been seen and examined, no acute events overnight, case discussed with the RN, during my visit patient is sitting comfortably in the chair, hemodynamically stable, remains on 10 L via nasal cannula, saturating 98% , still admits cough productive of yellow phlegm. No chest pain. Getting IV antibiotics during my visit. HIV P24 antigen, nonreactive. Pending CD4 cell count. We will continue to follow Pulmonary and Infectious Disease input and recommendations. 05/30 the patient has been seen and examined, no acute events overnight, BP 114/66, during my visit she is on Ventimask, saturating 95%, FiO2 60%. Without the Ventimask the patient desaturates to the low 70s. Patient tolerating BiPAP during the night. Still admits cough productive of thick yellow phlegm, no chest pain. Results of CD4 cell count reviewed, discussed with the patient. We will continue broad-spectrum IV antibiotics. Continue to follow Pulmonary and Infectious Disease input and recommendations. 05/31 the patient has been seen and examined, upgraded to the ICU, during my visit she is sitting in the chair, BP 113/72, heart rate of 109, she is on Oxymizer, 30 L, FiO2 100%. She is alert oriented x3, still admits cough productive of thick yellow phlegm, no chest pain. Hemoglobin 12.9, hematocrit 36.6, WBC 14.6. ABG with pH 7.4, pCO2 40, PO2. Chest x-ray shows left lower l obe infiltrate consistent with pneumonia. She is getting IV antibiotics during my visit. Patient will remain in the ICU, continue to follow critical Care as well as infectious disease input and recommendations. 06/01 patient is seen and examined, sitting comfortable in chair, awake, following commands, remains on high-flow oxygen, FiO2 70%, 30 L, BP 117/67, heart rate of 78, respiratory rate of 30-36, saturating 100%, CBC with a hemoglobin 13.6, hematocrit 38.9, WBC 12.4. Platelet count of 341. Chest x-ray showing persistent left lung infiltrate, cardiac size and mediastinum unremarkable. The bony structures are within the normal limits. Patient getting IV antibiotics during my visit. Patient to continue with the high-dose steroids. Serology test positive for Pneumocystis sandra. Patient on Bactrim two tablets p.o. t.i.d.. Continue also doxycycline and cefepime IV. Continue to follow infectious disease input and recommendation. Continue to follow Pulmonary input and recommendations. 06/02 patient is seen and examined at bedside, currently in prone position, alert oriented x3. CPT started last night, she has started having more loose phlegm expectorated. BP 114/74, tachycardic 114, saturating 95%, high-flow nasal cannula, 30 L, FiO2 80%. CBC with a hemoglobin 16.9, hemoglobin 14 0, hematocrit 39.8, platelet count 347. Chest x-ray shows persistent left lung infiltrate. 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 HIV preliminary positive, HIV P 24 nonreactive, HIV-one RNA by PCR [id number]. Serology test for toxoplasma currently pending. Patient on IV antibiotics as well as high-dose steroids. Continue to follow infectious Disease and Pulmonary input and recommendations. 06/03 patient seen at bedside, no acute events overnight. She continues with respiratory distress, with increasing oxygen requirements. Critical Care has discussed a possible need for intubation if she does not improve. She has been started on steroids due to underlying PCP pneumonia. WBC improved from 16.9 down to 13.5, sodium stable at 132, same as yesterday, lactic acid downtrending from 4.1 down to 3.2, remainder of her labs are relatively unremarkable. REVIEW OF SYSTEMS 12 point review of systems negative unless noted in HPI PHYSICAL EXAM GENERAL APPEARANCE: The patient is awake, alert, and oriented, in no acute cardiopulmonary distress. NEUROLOGICAL: Cranial nerves II-XII grossly intact. Motor is 5/5 in bilateral upper and lower extremities proximal to distal. No sensory deficits. HEENT: Face is symmetric. Pupils are equal and reactive. Extraocular movements are intact. NECK: Supple. No JVD. No thyromegaly. No submental, submandibular, pre- /postauricular, occipital or supraclavicular lymphadenopathy. CHEST: Normal chest expansion. No Telemetry. LUNGS: Absence of any rales, rhonchi or any wheezing. CARDIOVASCULAR: Regular. S1 and S2 normal. No appreciable rubs, murmurs or gallops. ABDOMEN: Soft, nontender, and nondistended. There is no rebound, voluntary guarding, or rigidity. : Deferred. No Souza. EXTREMITIES: Non-edematous and not cyanotic. No clubbing. Good capillary refill. SKIN: No skin breakdown. Vital Signs (last 8hr) Date Time Temp Pulse Resp B/P (MAP) Pulse Ox O2 Delivery O2 Flow Rate FiO2 06/03/24 12:00 98.4 118 33 118/77 90 N/C High Flow System 30.0 80 06/03/24 12:00 92 Hi-Flow N/C+ 30 80 06/03/24 11:09 114 26 06/03/24 11:00 118 26 112/86 90 N/C High Flow System 30.0 80 06/03/24 10:00 118 29 113/53 94 N/C High Flow System 30.0 80 06/03/24 09:00 112 25 146/93 98 N/C High Flow System 30.0 80 LABS: Laboratory: Test 06/03/24 07:57 06/03/24 07:45 06/03/24 04:47 06/02/24 17:41 Range/Units Blood Gas Specimen Type Arterial Arterial Blood pH 7.441 7.350-7.450 Arterial Blood Partial Pressure CO2 35 32-45 mmHg Arterial Blood Partial Pressure O2 58.0 L 83.0-108.0 mmHg Arterial Blood HCO3 23.6 21.0-28.0 mmol/L Arterial Blood Oxygen Saturation 89.5 L 94.0-98.0 % Arterial Blood Base Excess -0.1 -2.0-3.0 mmol/L Hemoglobin (Blood Gas) 13.9 12.0-16.0 g/dL Sodium (Blood Gas) 129 L 136-145 MMOL/L Bedside Potassium (Blood Gas) 4.5 3.4-4.5 MMOL/L Bedside Chloride (Blood Gas) 97 L 98-107 MMOL/L Bedside Glucose (Blood Gas) 126 H 65-95 MG/DL Bedside Ionized Calcium (Blood Gas) 1.20 1.15-1.33 MMOL/L Bedside Lactic Acid (Blood Gas) 1.18 H 0.36-0.75 MMOL/L Blood Gas Temperature 37.0 35.5-37.0 CELSIUS Blood Gas Flow-by 30.00 H 0.00-15.00 L/min Blood Gas Vent Mode HFNC 30L 80 ROOM AIR FiO2 80.0 % Blood Gas Specimen Aleida ABDALLA RN LR Influenza Type A Antigen Negative For Type A NEGATIVE Influenza Type B Antigen Negative For Type B NEGATIVE SARS-CoV-2 Antigen (Rapid) PRESUMPTIVE NEGATIVE NEGATIVE Group A Streptococcus Rapid negative NEGATIVE White Blood Count 13.5 H 4.8-10.8 K/uL Red Blood Count 3.97 L 4.00-5.50 MIL/uL Hemoglobin 12.8 12.0-16.0 g/dL Hematocrit 36.7 36-48 % Mean Corpuscular Volume 92.4 79-99 fL Mean Corpuscular Hemoglobin 32.2 27.0-33.0 pg Mean Corpuscular Hemoglobin Concent 34.9 32.0-36.0 g/dL Red Cell Distribution Width 11.3 11.0-15.5 % Platelet Count 301 130-400 K/uL Mean Platelet Volume 9.8 7.5-10.5 fL Immature Granulocyte % (Auto) 0.7 0-1 % Neutrophils (%) (Auto) 91.3 H 40.0-77.0 % Lymphocytes (%) (Auto) 3.1 L 21.0-51.0 % Monocytes (%) (Auto) 4.8 3.0-13.0 % Eosinophils (%) (Auto) 0.0 0.0-8.0 % Basophils (%) (Auto) 0.1 0.0-5.0 % Neutrophils # (Auto) 12.3 H 1.8-7.7 K/uL Lymphocytes # (Auto) 0.4 L 1.0-4.8 K/uL Monocytes # (Auto) 0.6 0.1-1.0 K/uL Eosinophils # (Auto) 0.00 0.00-0.70 K/uL Basophils # (Auto) 0.01 0.00-0.20 K/uL Absolute Immature Granulocyte (auto 0.10 0-1 K/uL Nucleated Red Blood Cells 0.0 0.0-0.19 % Sodium Level 132 L 136-145 mmol/L Potassium Level 4.8 3.5-5.1 mmol/L Chloride Level 99 L 101-111 mmol/L Carbon Dioxide Level 26 21-32 mmol/L Blood Urea Nitrogen 23 H 7-18 mg/dL Creatinine 0.5 0.5-1.0 mg/dL Glomerular Filtration Rate Calc 114 >90 mL/min Random Glucose 143 H 70-105 mg/dL Total Calcium 8.8 8.5-10.1 mg/dL Magnesium Level 2.20 1.80-2.40 mg/dL Total Bilirubin 0.4 0.2-1.0 mg/dL Aspartate Amino Transf (AST/SGOT) 26 10-37 U/L Alanine Aminotransferase (ALT/SGPT) 56 12-78 U/L Alkaline Phosphatase 99 50-136 U/L B-Type Natriuretic Peptide 9 0-100 pg/mL Total Protein 6.6 6.0-8.3 g/dL Albumin 2.5 L 3.5-5.0 g/dL Lactic Acid Level 3.0 H 0.8-2.5 mmol/L Current Medications Medications (Trade) Dose Ordered Sig/Julita Route PRN Reason Start Time Stop Time Status Last Admin Dose Admin Acetaminophen (TYLenol 650MG SUPPOSITORY) 650 mg Q6H PRN RC MILD PAIN (1-3) 05/23/24 20:30 06/22/24 20:29 Acetylcysteine (MUComyst 20% 4ML) 400mg = 2ml [id number] IH 06/02/24 00:00 07/02/24 00:00 06/03/24 11:07 400 MG Albuterol (DUOneb) 1 udvial [id number] IH 05/24/24 00:00 06/23/24 00:00 06/03/24 11:07 1 UDVIAL Azithromycin 250 ml @ 250 mls/hr Q24H IVPB 05/24/24 17:00 05/24/24 14:41 DC Azithromycin 250 ml @ 250 mls/hr Q24H STAT IVPB 05/23/24 17:17 05/24/24 14:41 DC 05/23/24 17:45 250 MLS/HR Cefepime HCl (MAXipime 2 gm vial) 2 gm Q12H IVPB 05/24/24 15:00 06/03/24 14:59 DC 06/03/24 03:18 2 GM Ceftriaxone Sodium (ROCEphine 1G INJ) 1 gm Q24H IVPB 05/24/24 17:30 05/24/24 14:41 DC Doxycycline Hyclate 250 ml @ 125 mls/hr Q12H IV 05/24/24 16:30 06/03/24 16:29 06/03/24 04:23 125 MLS/HR Enoxaparin Sodium (Lovenox) 40 mg Q24H SQ 05/23/24 21:00 06/22/24 20:59 06/02/24 21:33 40 MG Famotidine (Pepcid 20mg Vial) 20 mg DAILY IV 05/24/24 09:00 06/23/24 08:59 06/03/24 08:38 20 MG Fluconazole/ Sodium Chloride 100 ml @ 100 mls/hr DAILY IV 05/26/24 09:00 05/27/24 15:57 DC 05/27/24 09:07 100 MLS/HR Furosemide (LASix 20MG VIAL) 20 mg DAILY IV 05/31/24 09:00 06/30/24 08:59 06/03/24 08:38 20 MG Guaifenesin/ Dextromethorphan (RobiTUSSin DM 200/20MG 10ML) 10 ml Q4H PRN PO COUGH 05/23/24 20:30 06/22/24 20:29 06/02/24 21:33 10 ML Lactated Ringer's (Lactated Ringers 1000ml) 500 ml ONCE IV 06/02/24 20:00 06/02/24 19:54 DC Levofloxacin/ Dextrose 100 ml @ 100 mls/hr Q24H IV 05/24/24 15:00 05/24/24 16:16 DC Magnesium Sulfate 50 ml @ 0 mls/hr PROTOCOL PRN IV hypomagnesemia 05/28/24 08:00 06/27/24 07:59 Methylprednisolone Sodium Succinate (Solu-medROL 40MG) 40 mg Q12H IVP 05/28/24 18:00 05/29/24 16:45 DC 05/29/24 05:32 40 MG Methylprednisolone Sodium Succinate (Solu-medROL 40MG) 40 mg Q6H IVP 05/29/24 16:30 06/28/24 16:29 06/03/24 10:17 40 MG Methylprednisolone Sodium Succinate (Solu-medROL 40MG) 40 mg Q8H IVP 05/24/24 01:00 05/25/24 21:51 DC 05/25/24 17:28 40 MG Methylprednisolone Sodium Succinate (Solu-medROL 40MG) 60 mg Q6H IVP 05/25/24 22:00 05/28/24 02:25 DC 05/27/24 23:55 60 MG Methylprednisolone Sodium Succinate (Solu-medROL 40MG) 60 mg Q6H IVP 05/28/24 06:00 05/28/24 08:27 DC 05/28/24 06:47 60 MG Metronidazole/ Sodium Chloride (flaGYL) 500 mg Q8H IV 05/25/24 22:00 05/25/24 21:56 DC Ondansetron HCl (zoFRAN 4MG INJ) 4 mg Q6H PRN IV NAUSEA/VOMITING 05/23/24 20:30 06/22/24 20:29 Potassium Chloride 100 ml @ 100 mls/hr AD PRN IV POTASSIUM PROTOCOL 05/28/24 08:00 06/27/24 07:59 Potassium Chloride (K-Dur/Klor-Con 20meq) 20 meq AD PRN PO POTASSIUM PROTOCOL 05/28/24 08:00 06/27/24 07:59 Potassium Chloride (KCl 10% Elixir 20meq/15ml) 20 meq AD PRN PO POTASSIUM PROTOCOL 05/28/24 08:00 06/27/24 07:59 Sodium Chloride 500 ml @ 500 mls/hr Q1H IV 06/02/24 20:00 06/02/24 20:59 DC 06/02/24 21:34 500 MLS/HR Trimethoprim/ Sulfamethoxazole (BactRIM DS) 1 tab BID PO 05/26/24 21:00 05/29/24 16:18 DC 05/29/24 08:07 1 TAB Trimethoprim/ Sulfamethoxazole (BactRIM DS) 2 tab TID PO 05/29/24 16:30 06/05/24 20:59 06/03/24 14:03 2 TAB DIAGNOSTICS / RADIOLOGY: [ ] ASSESSMENT: Acute hypoxemic respiratory failure, POA Bilateral lower lobe bacterial pneumonia + MRSA POA, +Azra Suspected PCP PNA based on CT findings vs viral/Atypical PNA . POA HIV positive (preliminary report, confirmatory test nonreactive) POA Normocytic anemia, not POA Neutrophilia, POA Hyperglycemia, POA Obesity BMI of 32.3 Former smoker Acute cystitis, POA Fatty liver, POA Moderate hypoalbuminemia POA Previous COVID-19 infection PLAN: Continue ICU Continue the patient on BiPAP alternating with high-flow oxygen Continue the patient on high-dose steroids Continue Bactrim Continue doxycycline Continue lasix 20mg q24h Continue broad-spectrum antibiotic with doxycycline, and cefepime IV Continue to follow Pulmonary input recommendation Continue to follow infectious disease input and recommendation Follow serology test for toxoplasma gone the Follow chest x-ray Continue bronchodilators per respiratory therapist Replace electrolytes IV per protocol A.m. labs GI and DVT prophylaxis. Further orders to follow based on the above results Infectious disease consulted, appreciate recommendations Disposition: Remains admitted to the ICU, pending improvement in clinical condition. Total ICU time spent greater than 30 minutes. HEATHER RICE MD Jun 03, 2024 16:08
--- NOTE | 2024-06-03 17:44 | PN ---
INFECTIOUS DISEASE PROGRESS NOTE Date of Service: Jun 03, 2024 SUBJECTIVE: This is a 49-year-old female patient who was admitted with chief complaint of shortness of breaths. A chest x-ray done on admission showed left lower lung pneumoniae. A CT chest showed bilateral pulmonary infiltrates but no evidence of PE. Patient was seen and examined at bedside in ICU room 208. Patient is laying in bed and has dyspneic episodes. Patient is currently on high-flow oxygen at 80% and 30 L oxygen. Reported that she is bringing up yellow sticky sputum. Continues on DuoNebs. No fever this morning, temperature is 98.4 and the WBC is 13.5. Continues on cefepime, doxycycline and Bactrim DS. We will continue to follow patient's care. PHYSICAL EXAM EYES: Anicteric. Pupils equal and reactive. HENT: No oral thrush seen, moist Oral mucosa. NECK: Supple, no JVD or thyromegaly. LUNGS: Good air entry. No rales, no rhonchi. Dyspnea. On high-flow Oxygen support. CARDIOVASCULAR: S1, S2 regular. No murmur heard. ABDOMEN: Soft, non tender, bowel sounds present, no organomegaly. CENTRAL NERVOUS SYSTEM: Awake, alert, oriented x 3. SKIN: No rashes, no swelling. LYMPHATICS: No peripheral lymphadenopathy. MUSCULOSKELETAL: No joint swelling, erythema or tenderness. EXTREMITIES: No cyanosis or clubbing. BACK: No deformity, no pressure ulcer. GENITOURINARY: No dysuria or hematuria. Vital Sign (Last 12 Hours) 06/03/24 06/03/24 06/03/24 06/03/24 05:46 06:00 06:30 06:46 Pulse 71 78 85 87 Resp 22 23 22 22 B/P (MAP) 107/60 118/75 Pulse Ox 100 100 99 98 O2 Delivery BIPAP BIPAP BIPAP BIPAP 06/03/24 06/03/24 06/03/24 06/03/24 07:21 07:26 08:00 08:00 Temp 98.1 Pulse 92 88 100 Resp 25 26 B/P (MAP) 126/70 Pulse Ox 95 92 O2 Delivery HFNC Heated System N/Can BIPAP Hi-Flow N/C+ O2 Flow Rate 30.0 30 FiO2 80 80 80 06/03/24 06/03/24 06/03/24 06/03/24 09:00 10:00 11:00 11:09 Pulse 112 118 118 114 Resp 25 29 26 26 B/P (MAP) 146/93 113/53 112/86 Pulse Ox 98 94 90 O2 Delivery N/C High Flow System N/C High Flow System N/C High Flow System O2 Flow Rate 30.0 30.0 30.0 FiO2 80 80 80 06/03/24 06/03/24 06/03/24 06/03/24 12:00 12:00 13:00 14:00 Temp 98.4 Pulse 118 125 108 Resp 33 28 25 B/P (MAP) 118/77 123/75 118/70 Pulse Ox 92 90 95 100 O2 Delivery Hi-Flow N/C+ N/C High Flow System N/C High Flow System N/C High Flow System O2 Flow Rate 30 30.0 30.0 30.0 FiO2 80 80 80 80 06/03/24 06/03/24 06/03/24 06/03/24 15:00 16:00 16:00 17:00 Temp 98.8 Pulse 107 106 107 Resp 31 20 24 B/P (MAP) 139/77 115/71 137/80 Pulse Ox 100 97 92 96 O2 Delivery N/C High Flow System N/C High Flow System Hi-Flow N/C+ N/C High Flow System O2 Flow Rate 30.0 30.0 30 30.0 FiO2 80 80 80 80 Intake & Output (last 24hrs) 06/02/24 06/02/24 06/03/24 15:00 23:00 07:00 Intake Total 1040.0 ml 500 ml 350.0 ml Output Total 2000 ml 500 ml Balance -960.0 ml 500 ml -150.0 ml LABS: Laboratory: Test 06/03/24 07:57 06/03/24 07:45 06/03/24 04:47 06/02/24 17:41 Range/Units Blood Gas Specimen Type Arterial Arterial Blood pH 7.441 7.350-7.450 Arterial Blood Partial Pressure CO2 35 32-45 mmHg Arterial Blood Partial Pressure O2 58.0 L 83.0-108.0 mmHg Arterial Blood HCO3 23.6 21.0-28.0 mmol/L Arterial Blood Oxygen Saturation 89.5 L 94.0-98.0 % Arterial Blood Base Excess -0.1 -2.0-3.0 mmol/L Hemoglobin (Blood Gas) 13.9 12.0-16.0 g/dL Sodium (Blood Gas) 129 L 136-145 MMOL/L Bedside Potassium (Blood Gas) 4.5 3.4-4.5 MMOL/L Bedside Chloride (Blood Gas) 97 L 98-107 MMOL/L Bedside Glucose (Blood Gas) 126 H 65-95 MG/DL Bedside Ionized Calcium (Blood Gas) 1.20 1.15-1.33 MMOL/L Bedside Lactic Acid (Blood Gas) 1.18 H 0.36-0.75 MMOL/L Blood Gas Temperature 37.0 35.5-37.0 CELSIUS Blood Gas Flow-by 30.00 H 0.00-15.00 L/min Blood Gas Vent Mode HFNC 30L 80 ROOM AIR FiO2 80.0 % Blood Gas Specimen Aleida ABDALLA RN LR Influenza Type A Antigen Negative For Type A NEGATIVE Influenza Type B Antigen Negative For Type B NEGATIVE SARS-CoV-2 Antigen (Rapid) PRESUMPTIVE NEGATIVE NEGATIVE Group A Streptococcus Rapid negative NEGATIVE White Blood Count 13.5 H 4.8-10.8 K/uL Red Blood Count 3.97 L 4.00-5.50 MIL/uL Hemoglobin 12.8 12.0-16.0 g/dL Hematocrit 36.7 36-48 % Mean Corpuscular Volume 92.4 79-99 fL Mean Corpuscular Hemoglobin 32.2 27.0-33.0 pg Mean Corpuscular Hemoglobin Concent 34.9 32.0-36.0 g/dL Red Cell Distribution Width 11.3 11.0-15.5 % Platelet Count 301 130-400 K/uL Mean Platelet Volume 9.8 7.5-10.5 fL Immature Granulocyte % (Auto) 0.7 0-1 % Neutrophils (%) (Auto) 91.3 H 40.0-77.0 % Lymphocytes (%) (Auto) 3.1 L 21.0-51.0 % Monocytes (%) (Auto) 4.8 3.0-13.0 % Eosinophils (%) (Auto) 0.0 0.0-8.0 % Basophils (%) (Auto) 0.1 0.0-5.0 % Neutrophils # (Auto) 12.3 H 1.8-7.7 K/uL Lymphocytes # (Auto) 0.4 L 1.0-4.8 K/uL Monocytes # (Auto) 0.6 0.1-1.0 K/uL Eosinophils # (Auto) 0.00 0.00-0.70 K/uL Basophils # (Auto) 0.01 0.00-0.20 K/uL Absolute Immature Granulocyte (auto 0.10 0-1 K/uL Nucleated Red Blood Cells 0.0 0.0-0.19 % Sodium Level 132 L 136-145 mmol/L Potassium Level 4.8 3.5-5.1 mmol/L Chloride Level 99 L 101-111 mmol/L Carbon Dioxide Level 26 21-32 mmol/L Blood Urea Nitrogen 23 H 7-18 mg/dL Creatinine 0.5 0.5-1.0 mg/dL Glomerular Filtration Rate Calc 114 >90 mL/min Random Glucose 143 H 70-105 mg/dL Total Calcium 8.8 8.5-10.1 mg/dL Magnesium Level 2.20 1.80-2.40 mg/dL Total Bilirubin 0.4 0.2-1.0 mg/dL Aspartate Amino Transf (AST/SGOT) 26 10-37 U/L Alanine Aminotransferase (ALT/SGPT) 56 12-78 U/L Alkaline Phosphatase 99 50-136 U/L B-Type Natriuretic Peptide 9 0-100 pg/mL Total Protein 6.6 6.0-8.3 g/dL Albumin 2.5 L 3.5-5.0 g/dL Lactic Acid Level 3.0 H 0.8-2.5 mmol/L ASSESSMENT: Acute hypoxic respiratory failure, requiring high-flow oxygen support. 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 Positive HIV test. Leukocytosis. Obesity. PLAN: Continue cefepime IV. Continue doxycycline IV. Continue Bactrim DS b.i.d.. Continue oxygen support, currently on high-flow oxygen. Continue bronchodilators. We will monitor electrolytes. This case was reviewed and discussed with my supervising physician and the above assessment and plan was formulated and agreed upon. ATTESTATION BY PHYSICIAN I have seen and examined the patient. I reviewed the documentation, medical decision making, and treatment plan as noted by the mid-level provider above. I agree with the findings and plan of care. [place] MD, MIRTA L [facility] Jun 03, 2024 17:44
--- NOTE | 2024-06-03 23:38 | PN ---
[facility] PROGRESS NOTE Date Patient Seen: Jun 03, 2024 Time of Visit: 11:00 Supervising Physician: Ramiro Kohler MD Primary Care Physician: Stu Foss MD Outpatient Specialists: [ ] Inpatient Consults: Pulmonology PROBLEM LIST: Severe ARDS Severe Sepsis Acute hypoxemic respiratory failure, POA requiring high Flow with 80% Bilateral lower lobe bacterial pneumonia + MRSA POA, +Azra Confirmed PCP PNA per Ag (serology), POA New HIV/AIDS positive POA Normocytic anemia, not POA Neutrophilia, POA Hyperglycemia, POA Obesity BMI of 32.3 Former smoker Acute cystitis, POA Fatty liver, POA Moderate hypoalbuminemia POA Previous COVID-19 infection INTERVAL HISTORY: 05/25/2024: At the time of my evaluation, the patient was lying in bed. She is currently on a non-rebreather mask. She reports feeling slightly better today. No laboratory data for review today. No new complaint. 05/28-patient is awake alert and oriented x3 currently receiving nebulizer treatment. She has been tolerating BiPAP overnight and currently on 10 L via Oxymizer which is less than 2 days ago which was 15 liters/minute saturating 96%. Patient has been afebrile and hemodynamically stable. Patient reports g ood urine output and bowel movements x2 yesterday. On laboratory white count is normal neutrophils the same as yesterday 89.8. Chemistry kidneys are doing good creatinine 0.5 GFR 114 glucose 150 mg/dL we will order hemoglobin A1c for tomorrow on chest x-ray. We will continue to follow ID recommendation. 05/29/24-patient is awake alert and oriented x3. She is sitting up on recliner chair with high FiO2 requirements 10 L via Oxymizer. We will increase Solu- Medrol to 40 mg IV q.6 hours and continue with doxycycline cefepime and increased Bactrim to full-dose two tablets p.o. TID. Patient's denies chills, chest pain palpitations. However she does report continues shortness for breath and gets winded easily with a few steps to the restroom. Patient to continue BiPAP at night and p.r.n.. Chest x-ray worsening left lower lobe pneumonia. 05/30/24- patient is awake alert and oriented x3 sitting up in recliner chair. Patient is easily winded with conversation currently on non-rebreather at 100% FiO2. His hypoxemia is worsening with the a pH of 7.45 pCO2 of 38 PO2 of 68.7 and a bicarb 26. We will have patient transferred to ICU and we will oxygen in the following order: with high-flow if high flow not enough will start high flow + NRB and if not enough then switch to bipap. She is high risk for decompensation although patient reports she does not feel any increased shortness of breath she is easily winded and tachycardic with ambulating short distance to the restroom. On 2D echo patient has not LVEF of greater than 55% with mild concentric left ventricular hypertrophy left ventricular diastolic function is normal. 05/31/24- Pt is awake alert and oriented x 3 she reamins in the icu due to high risk for resp decompensation. She is hemodynamically stable blood pressure 105/50 O2 sat of 95% with high-flow on 30 L with a FiO2 of 90% respiratory rate is 28 heart rate of 100 and afebrile. Patient gets easily winded when holding a conversation. Encouraged to lay down prone. She continues with high dose steroids Solu-Medrol 40 q.6 hours. Urine output 2.9 L in last 24 hours, WBCs are 14.6 H&H is 12.9/36.6 with a platelet count of 304 K. on chemistry sodium is 134 chloride is 98 BUN of 21 creatinine of 0.5 and GFR of 114 glucose of 151 mg/dL LDH is 483 albumin 2.6. On serology Pneumocystis sandra antigen +. Clinical findings and laboratory findings consistent with HIV/AIDS , ID is on the case and we will follow his recommendations. Per patient she has talked to her partner about her results, I educated her that is very important for her sexual partners to be notified and so they can get checked for HIV. Pt verbalized understanding. On chest XR left lower lobe infiltrates consistent with pneumonia. 06/01/24-patient sitting up in chair sleeping but was easily arousable to voice. Awake alert and oriented x3,. Currently on high-flow O2 with a FiO2 of 80%. No major overnight events per RN. she is hemodynamically stable and afebrile. Urine output is good 2.9 L in the last 24 hours. WBCs are 12.4 trended down fro m yesterday neutrophils are 92.4. On chemistry sodium 134 with a potassium of 5.4 chloride of 96 BUN of 22 creatinine of 0.6 and GFR of 109 mg/dL ALT 86 albumin 2.5. Patient continues on doxycycline, cefepime, and Bactrim DS two tablets 3 times a day. We will continue follow ID recommendations 06/02/24-patient is awake alert and oriented x3 sitting up in recliner chair she has been proned this morning and tolerated well saturating 100% on high flow of with 80% FiO2. Now sitting up and saturating 92%. She reports that she is now able to expectorate some sputum. Patient has a temperature 99.9 she is sinus tachy in the monitor 115 beats per minute, respiratory rate of 28 and hemodynamically stable. Pancultured. Antibiotics per ID. Urine output is 1 L in the last 24 hours with a balance of -1.5L WBCs today are 16.9 neutrophils. We will order 500mls bolus of LR if no improvement we will give another bolus. Chemistry sodium was 132 chloride 96 BUN of 26, potassium is 4.8 BUN of 26 creatinine 0.6 GFR of 109 mg/dL albumin 2.6. we will order lactic. Per Dr Garcia recommends Vancomycin, this was communicated with ID. 04/03/25-patient with no major overnight events as per RN she is a little tachycardic in the 113 beats per minute, saturating 96% with FiO2 of 80% on high-flow nasal cannula with 30 L. Patient is high risk for intubation and I informed her of this encouraged her to have some Advance directive prior to requiring emergency intubation. She has accepted transition social worker consult for advance directive and agreed to let her kids know about her condition and discuss w/ them her wishes and theirs before signing any advance directives. T- max overnight 99.7 with a T low of 98.1. She is hemodynamically stable. She denies feeling any worsening shortness of breath. Patient denies any nausea vomiting or diarrhea. Urine output 2.5 L in the last 24 hours with a-610 mL balance. WBCs trending down 13.5 today H&H stable 12.8/36.7 neutrophils are 91.3. Chemistries sodium 132 chloride of 96 carbon dioxide 26 BUN 23 creatinine of 0.5 with a GFR of 114 random glucose 143 mg/dL lactic acid trended down to 3.0 ABG with a pH of 7.44 pCO2 of 35 PO2 decrease to 58 PF Ratio 72.5, we will continue to encourage proning and add non-rebreather on top of high-flow nasal cannula. REVIEW OF SYSTEMS: General: No malaise or fever. Neurological: No fainting episodes or seizures. HEENT: No nasal congestion or nasal secretion. Respiratory: Yes for cough, yellow phlegm, shortness for breath on minimal exertion. Cardiac: No chest pain or palpitations. Gastrointestinal: No vomiting or diarrhea. Genitourinary: No dysuria hematuria. Skin: No rashes or lesions. Hematological: No bruises or bleeding. Musculoskeletal: No joint pains or arthralgias. Psychiatric: No depression or panic attacks. PHYSICAL EXAM: GENERAL: alert, weak, awake oriented x 3 HEENT: EOMI, Sclera non icteric, moist mucosa NECK: Supple, no JVD, trachea midline LUNGS: Fine crackles to bilateral lower posterior bases lung sounds. No wheezes HEART: Regular rate and rhythm. Normal S1 and S2, without murmurs ABD: Abdomen soft, nontender. Bowel sounds present EXT: No clubbing cyanosis or edema NEURO: Alert and oriented to person, follows commands Vital Signs (last 8hr) Date Time Temp Pulse Resp B/P (MAP) Pulse Ox O2 Delivery O2 Flow Rate FiO2 06/03/24 22:18 102 25 HFNC Heated System N/Can 30.0 80 06/03/24 22:17 102 26 06/03/24 20:00 96 Hi-Flow N/C+ 30 80 06/03/24 20:00 122 37 96 N/C High Flow System 30.0 80 06/03/24 19:47 116 35 130/79 94 N/C High Flow System 30.0 80 06/03/24 19:30 120 30 96 N/C High Flow System 30.0 80 06/03/24 19:00 113 34 100 N/C High Flow System 30.0 80 06/03/24 17:00 107 24 137/80 96 N/C High Flow System 30.0 80 06/03/24 16:00 92 Hi-Flow N/C+ 30 80 06/03/24 16:00 98.8 106 20 115/71 97 N/C High Flow System 30.0 80 LABS: Hematology Labs: Test 06/03/24 04:47 Range/Units White Blood Count 13.5 H 4.8-10.8 K/uL Red Blood Count 3.97 L 4.00-5.50 MIL/uL Hemoglobin 12.8 12.0-16.0 g/dL Hematocrit 36.7 36-48 % Mean Corpuscular Volume 92.4 79-99 fL Mean Corpuscular Hemoglobin 32.2 27.0-33.0 pg Mean Corpuscular Hemoglobin Concent 34.9 32.0-36.0 g/dL Red Cell Distribution Width 11.3 11.0-15.5 % Platelet Count 301 130-400 K/uL Mean Platelet Volume 9.8 7.5-10.5 fL Immature Granulocyte % (Auto) 0.7 0-1 % Neutrophils (%) (Auto) 91.3 H 40.0-77.0 % Lymphocytes (%) (Auto) 3.1 L 21.0-51.0 % Monocytes (%) (Auto) 4.8 3.0-13.0 % Eosinophils (%) (Auto) 0.0 0.0-8.0 % Basophils (%) (Auto) 0.1 0.0-5.0 % Neutrophils # (Auto) 12.3 H 1.8-7.7 K/uL Lymphocytes # (Auto) 0.4 L 1.0-4.8 K/uL Monocytes # (Auto) 0.6 0.1-1.0 K/uL Eosinophils # (Auto) 0.00 0.00-0.70 K/uL Basophils # (Auto) 0.01 0.00-0.20 K/uL Absolute Immature Granulocyte (auto 0.10 0-1 K/uL Nucleated Red Blood Cells 0.0 0.0-0.19 % Chemistry Labs: Test 06/03/24 04:47 06/02/24 17:41 Range/Units Sodium Level 132 L 136-145 mmol/L Potassium Level 4.8 3.5-5.1 mmol/L Chloride Level 99 L 101-111 mmol/L Carbon Dioxide Level 26 21-32 mmol/L Blood Urea Nitrogen 23 H 7-18 mg/dL Creatinine 0.5 0.5-1.0 mg/dL Glomerular Filtration Rate Calc 114 >90 mL/min Random Glucose 143 H 70-105 mg/dL Total Calcium 8.8 8.5-10.1 mg/dL Magnesium Level 2.20 1.80-2.40 mg/dL Total Bilirubin 0.4 0.2-1.0 mg/dL Aspartate Amino Transf (AST/SGOT) 26 10-37 U/L Alanine Aminotransferase (ALT/SGPT) 56 12-78 U/L Alkaline Phosphatase 99 50-136 U/L B-Type Natriuretic Peptide 9 0-100 pg/mL Total Protein 6.6 6.0-8.3 g/dL Albumin 2.5 L 3.5-5.0 g/dL Lactic Acid Level 3.0 H 0.8-2.5 mmol/L DIAGNOSTICS / RADIOLOGY RESULTS: [ ] PLAN Follow ID recommendations Encouraged to prone herself Maintain O2 sats above 92% Monitor temperature trend Continue high-dose steroids Duo nebs q.6 hours Abx Per ID trend Lactic acid. Due to severe sob will not do 30ml/kg bolus at one time if pt not hypotensive to avoid worsening resp status Instead will try pulsating boluses of 500 mL of NS as tolerated. Follow respiratory status closely as she is high risk for decompensation. transition social worker to discuss advance directives. Monitor resp status closely high risk for intubation, Pt will likely not come off mechnical ventilation easily and higher risk of HAP due to debilitated immune system so will try other measures of oxygenation prior to intubation for now. We will place NRB on top of already High Flow NC with fio2 of 80%. NEURO: Minimize central acting medications as possible. Fall Precautions. Well lighted room through the day and minimize interruptions through the night to prevent acute delirium. PULMONARY: Supplemental 02 as needed Titrate Fio2 to keep Spo2 > or = 90% DuoNebs and CPT as needed IS hourly while awake for pulmonary hygiene Out of bed to chair as tolerated CARDIOVASCULAR: Follow hemodynamics. Titrate vasopressor to keep MAP >65 or systolic blood pressure >95mmHg telemetry Drips none LINES: PIV GI & NUTRITION: Continue nutritional support Aspirations precautions Prokinetic agents and laxatives as needed KIDNEYS & ELECTROLYTES: Strict monitoring of intake and output Daily weights Avoid nephrotoxic agents Monitor electrolytes and replace as needed Goal urine output of 30mL/hr or 0.5mL/kg/hr ENDOCRINE: Maintain blood glucose between 100-180 at all times. Insulin sliding scale for blood glucose management INFECTIOUS DISEASE: Trend temperature. Clarke-culture if febrile. Micro: [ ] Sputum culture from 05/23/24 positive for MRSA, Betty albicans Pneumocystis carinii antigen positive Panculture: 06/02/24 Blood cultures Urine cultures Respiratory culture Antibiotics: Cefepime Doxycycline Bactrim ds HEMATOLOGY & COAGULATION: Monitor H&H. Keep Hgb > 7 Transfuse 1 unit of PRBC for Hgb < 7 Transfuse 1 pack of platelets of platelets < 20, 000 Watch for any signs and symptoms of bleeding SKIN: Pressure ulcer prevention per facility protocol Rehab: PT/OT Prophylaxis: GI: pepcid DVT: Lovenox Code Status: Full Resuscitation Disposition: ICU Other: Total patient care time exceeds 45 minutes excluding all procedures. Case was discussed and seen with my supervising physician. The above plan was formulated and agreed upon. MARGO LOGANP Jun 03, 2024 23:38
[2024-06-04] VITALS (38 sets, daily range): BP systolic 104–133; BP diastolic 51–87; PULSE 81–116; RESP 16–52; TEMP 97.8–98.6; O2SAT 95–100
[2024-06-04 04:28] LABS: BASOPHILS # (AUTO) 0.02 K/uL (0.00-0.20); BASOPHILS % (AUTO) 0.2 % (0.0-5.0); HEMATOCRIT 37.9 % (36-48); LYMPHOCYTES # (AUTO) 0.5 K/uL (1.0-4.8); LYMPHOCYTES % (AUTO) 3.5 % (21.0-51.0); MEAN CORPUSCULAR HEMOGLOBIN 32.5 pg (27.0-33.0); MEAN CORPUSCULAR HGB CONC 35.6 g/dL (32.0-36.0); MEAN CORPUSCULAR VOLUME 91.3 fL (79-99); MONOCYTES # (AUTO) 0.5 K/uL (0.1-1.0); MONOCYTES % (AUTO) 3.8 % (3.0-13.0); NEUTROPHILS # (AUTO) 12.2 K/uL (1.8-7.7); NEUTROPHILS % (AUTO) 91.7 % (40.0-77.0); PLATELET COUNT (AUTO) 338 K/uL (130-400); RED BLOOD CELL COUNT(AUTO) 4.15 MIL/uL (4.00-5.50); RED CELL DISTRIBUTION WIDTH 11.2 % (11.0-15.5); WHITE BLOOD COUNT (AUTO) 13.3 K/uL (4.8-10.8)
[2024-06-04 04:52] LABS: ALBUMIN 2.6 g/dL (3.5-5.0); BILIRUBIN,TOTAL 0.3 mg/dL (0.2-1.0); CREATININE 0.6 mg/dL (0.5-1.0); POTASSIUM 4.2 mmol/L (3.5-5.1); TOTAL PROTEIN, SERUM 6.9 g/dL (6.0-8.3)
[2024-06-04] MEDS: acetaMINOPHEN 650 MG/20.3 ML UDCUP PO PRN (09:21)
--- NOTE | 2024-06-04 09:54 | PN ---
[facility] PROGRESS NOTE Date Patient Seen: Jun 04, 2024 Time of Visit: 09:53 Supervising Physician: Dr. Ramiro Kohler Primary Care Physician: Stu Foss MD Outpatient Specialists: [ ] Inpatient Consults: Pulmonology PROBLEM LIST: Severe ARDS Severe Sepsis Acute hypoxemic respiratory failure, POA requiring high Flow with 80% Bilateral lower lobe bacterial pneumonia + MRSA POA, +Azra Confirmed PCP PNA per Ag (serology), POA New HIV/AIDS positive POA Normocytic anemia, not POA Neutrophilia, POA Hyperglycemia, POA Obesity BMI of 32.3 Former smoker Acute cystitis, POA Fatty liver, POA Moderate hypoalbuminemia POA Previous COVID-19 infection INTERVAL HISTORY: 05/25/2024: At the time of my evaluation, the patient was lying in bed. She is currently on a non-rebreather mask. She reports feeling slightly better today. No laboratory data for review today. No new complaint. 05/28-patient is awake alert and oriented x3 currently receiving nebulizer treatment. She has been tolerating BiPAP overnight and currently on 10 L via Oxymizer which is less than 2 days ago which was 15 liters/minute saturating 96%. Patient has been afebrile and hemodynamically stable. Patient reports good urine output and bowel movements x2 yesterday. On laboratory white count is normal neutrophils the same as yesterday 89.8. Chemistry kidneys are doing good creatinine 0.5 GFR 114 glucose 150 mg/dL we will order hemoglobin A1c for tomorrow on chest x-ray. We will continue to follow ID recommendation. 05/29/24-patient is awake alert and oriented x3. She is sitting up on recliner chair with high FiO2 requirements 10 L via Oxymizer. We will increase Solu- Medrol to 40 mg IV q.6 hours and continue with doxycycline cefepime and increased Bactrim to full-dose two tablets p.o. TID. Patient's denies chills, chest pain palpitations. However she does report continues shortness for breath and gets winded easily with a few steps to the restroom. Patient to continue BiPAP at night and p.r.n.. Chest x-ray worsening left lower lobe pneumonia. 05/30/24- patient is awake alert and oriented x3 sitting up in recliner chair. Patient is easily winded with conversation currently on non-rebreather at 100% FiO2. His hypoxemia is worsening with the a pH of 7.45 pCO2 of 38 PO2 of 68.7 and a bicarb 26. We will have patient transferred to ICU and we will oxygen in the following order: with high-flow if high flow not enough will start high flow + NRB and if not enough then switch to bipap. She is high risk for decompensation although patient reports she does not feel any increased shortness of breath she is easily winded and tachycardic with ambulating short distance to the restroom. On 2D echo patient has not LVEF of greater than 55% with mild concentric left ventricular hypertrophy left ventricular diastolic function is normal. 05/31/24- Pt is awake alert and oriented x 3 she reamins in the icu due to high risk for resp decompensation. She is hemodynamically stable blood pressure 105/50 O2 sat of 95% with high-flow on 30 L with a FiO2 of 90% respiratory rate is 28 heart rate of 100 and afebrile. Patient gets easily winded when holding a conversation. Encouraged to lay down prone. She continues with high dose steroids Solu-Medrol 40 q.6 hours. Urine output 2.9 L in last 24 hours, WBCs are 14.6 H&H is 12.9/36.6 with a platelet count of 304 K. on chemistry sodium is 134 chloride is 98 BUN of 21 creatinine of 0.5 and GFR of 114 glucose of 151 mg/dL LDH is 483 albumin 2.6. On serology Pneumocystis sandra antigen +. Clinical findings and laboratory findings consistent with HIV/AIDS , ID is on e case and we will follow his recommendations. Per patient she has talked to her partner about her results, I educated her that is very important for her sexual partners to be notified and so they can get checked for HIV. Pt verbalized understanding. On chest XR left lower lobe infiltrates consistent with pneumonia. 06/01/24-patient sitting up in chair sleeping but was easily arousable to voice. Awake alert and oriented x3,. Currently on high-flow O2 with a FiO2 of 80%. No major overnight events per RN. she is hemodynamically stable and afebrile. Urine output is good 2.9 L in the last 24 hours. WBCs are 12.4 trended down fr om yesterday neutrophils are 92.4. On chemistry sodium 134 with a potassium of 5.4 chloride of 96 BUN of 22 creatinine of 0.6 and GFR of 109 mg/dL ALT 86 albumin 2.5. Patient continues on doxycycline, cefepime, and Bactrim DS two tablets 3 times a day. We will continue follow ID recommendations 06/02/24-patient is awake alert and oriented x3 sitting up in recliner chair she has been proned this morning and tolerated well saturating 100% on high flow of with 80% FiO2. Now sitting up and saturating 92%. She reports that she is now able to expectorate some sputum. Patient has a temperature 99.9 she is sinus tachy in the monitor 115 beats per minute, respiratory rate of 28 and hemodynamically stable. Pancultured. Antibiotics per ID. Urine output is 1 L in the last 24 hours with a balance of -1.5L WBCs today are 16.9 neutrophils. We will order 500mls bolus of LR if no improvement we will give another bolus. Chemistry sodium was 132 chloride 96 BUN of 26, potassium is 4.8 BUN of 26 creatinine 0.6 GFR of 109 mg/dL albumin 2.6. we will order lactic. Per Dr Garcia recommends Vancomycin, this was communicated with ID. 04/03/25-patient with no major overnight events as per RN she is a little tachycardic in the 113 beats per minute, saturating 96% with FiO2 of 80% on high-flow nasal cannula with 30 L. Patient is high risk for intubation and I informed her of this encouraged her to have some Advance directive prior to requiring emergency intubation. She has accepted social welfare clerk consult for advance directive and agreed to let her kids know about her condition and discuss w/ them her wishes and theirs before signing any advance directives. T- max overnight 99.7 with a T low of 98.1. She is hemodynamically stable. She denies feeling any worsening shortness of breath. Patient denies any nausea vomiting or diarrhea. Urine output 2.5 L in the last 24 hours with a-610 mL balance. WBCs trending down 13.5 today H&H stable 12.8/36.7 neutrophils are 91.3. Chemistries sodium 132 chloride of 96 carbon dioxide 26 BUN 23 creatinine of 0.5 with a GFR of 114 random glucose 143 mg/dL lactic acid trended down to 3.0 ABG with a pH of 7.44 pCO2 of 35 PO2 decrease to 58 PF Ratio 72.5, we will continue to encourage proning and add non-rebreather on top of high-flow nasal cannula. 06/04/2024: At the time of my evaluation, the patient was sitting up in bed. She remains on a non-rebreather mask over a high-flow nasal cannula. Oxygen saturation is optimal arranging between 93 to 98%. No febrile events. Laboratory data showed a improving WBC count down to 13.3. Chemistry panel showed a low-sodium count of one going to nine with a potassium of 4.2, chloride is 93, CO2 of 97, BUN is 28, creatinine of 0.6 and a GFR of 119. No new microbiology data for review. Chest x-ray today showed bilateral pulmonary infiltrates that persists. The patient continues on antibiotic therapy guided by the Infectious Disease specialist. No new complaint. REVIEW OF SYSTEMS: General: No malaise or fever. Neurological: No fainting episodes or seizures. HEENT: No nasal congestion or nasal secretion. Respiratory: Yes for cough, yellow phlegm, shortness for breath on minimal exertion. Cardiac: No chest pain or palpitations. Gastrointestinal: No vomiting or diarrhea. Genitourinary: No dysuria hematuria. Skin: No rashes or lesions. Hematological: No bruises or bleeding. Musculoskeletal: No joint pains or arthralgias. Psychiatric: No depression or panic attacks. PHYSICAL EXAM: GENERAL: alert, weak, awake oriented x 3 HEENT: EOMI, Sclera non icteric, moist mucosa NECK: Supple, no JVD, trachea midline LUNGS: Fine crackles to bilateral lower posterior bases lung sounds. No wheezes HEART: Regular rate and rhythm. Normal S1 and S2, without murmurs ABD: Abdomen soft, nontender. Bowel sounds present EXT: No clubbing cyanosis or edema NEURO: Alert and oriented to person, follows commands Vital Signs (last 8hr) Date Time Temp Pulse Resp B/P (MAP) Pulse Ox O2 Delivery O2 Flow Rate FiO2 06/04/24 09:21 97.9 06/04/24 07:39 116 25 HFNC Heated System N/Can 30.0 80 06/04/24 06:54 98 25 06/04/24 06:53 94 25 70 06/04/24 06:00 97 28 100 BIPAP 06/04/24 05:46 87 24 112/70 100 BIPAP 06/04/24 05:30 96 20 100 BIPAP 06/04/24 05:00 97 26 100 BIPAP 06/04/24 04:46 101 25 113/80 100 BIPAP 06/04/24 04:30 107 25 100 BIPAP 06/04/24 04:00 102 26 99 BIPAP 06/04/24 04:00 99 CPAP+ 30 80 06/04/24 03:00 93 29 100 BIPAP 06/04/24 02:48 106 30 130/51 90 BIPAP 06/04/24 02:35 98 34 70 06/04/24 02:30 115 30 100 BIPAP 06/04/24 02:00 95 22 100 BIPAP LABS: Hematology Labs: Test 06/04/24 03:57 Range/Units White Blood Count 13.3 H 4.8-10.8 K/uL Red Blood Count 4.15 4.00-5.50 MIL/uL Hemoglobin 13.5 12.0-16.0 g/dL Hematocrit 37.9 36-48 % Mean Corpuscular Volume 91.3 79-99 fL Mean Corpuscular Hemoglobin 32.5 27.0-33.0 pg Mean Corpuscular Hemoglobin Concent 35.6 32.0-36.0 g/dL Red Cell Distribution Width 11.2 11.0-15.5 % Platelet Count 338 130-400 K/uL Mean Platelet Volume 10.1 7.5-10.5 fL Immature Granulocyte % (Auto) 0.8 0-1 % Neutrophils (%) (Auto) 91.7 H 40.0-77.0 % Lymphocytes (%) (Auto) 3.5 L 21.0-51.0 % Monocytes (%) (Auto) 3.8 3.0-13.0 % Eosinophils (%) (Auto) 0.0 0.0-8.0 % Basophils (%) (Auto) 0.2 0.0-5.0 % Neutrophils # (Auto) 12.2 H 1.8-7.7 K/uL Lymphocytes # (Auto) 0.5 L 1.0-4.8 K/uL Monocytes # (Auto) 0.5 0.1-1.0 K/uL Eosinophils # (Auto) 0.00 0.00-0.70 K/uL Basophils # (Auto) 0.02 0.00-0.20 K/uL Absolute Immature Granulocyte (auto 0.10 0-1 K/uL Nucleated Red Blood Cells 0.0 0.0-0.19 % Chemistry Labs: Test 06/04/24 03:57 06/03/24 04:47 06/02/24 17:41 Range/Units Sodium Level 129 L 136-145 mmol/L Potassium Level 4.2 3.5-5.1 mmol/L Chloride Level 93 L 101-111 mmol/L Carbon Dioxide Level 27 21-32 mmol/L Blood Urea Nitrogen 28 H 7-18 mg/dL Creatinine 0.6 0.5-1.0 mg/dL Glomerular Filtration Rate Calc 109 >90 mL/min Random Glucose 163 H 70-105 mg/dL Total Calcium 9.1 8.5-10.1 mg/dL Total Bilirubin 0.3 # 0.2-1.0 mg/dL Aspartate Amino Transf (AST/SGOT) 31 10-37 U/L Alanine Aminotransferase (ALT/SGPT) 75 # 12-78 U/L Alkaline Phosphatase 112 50-136 U/L Total Protein 6.9 6.0-8.3 g/dL Albumin 2.6 L 3.5-5.0 g/dL Magnesium Level 2.20 1.80-2.40 mg/dL B-Type Natriuretic Peptide 9 0-100 pg/mL Lactic Acid Level 3.0 H 0.8-2.5 mmol/L DIAGNOSTICS / RADIOLOGY RESULTS: [ ] PLAN Follow ID recommendations Encouraged to prone herself Maintain O2 sats above 92% Monitor temperature trend Continue high-dose steroids Duo nebs q.6 hours Abx Per ID trend Lactic acid. Due to severe sob will not do 30ml/kg bolus at one time if pt not hypotensive to avoid worsening resp status Instead will try pulsating boluses of 500 mL of NS as tolerated. Follow respiratory status closely as she is high risk for decompensation. social welfare clerk to discuss advance directives. Monitor resp status closely high risk for intubation, Pt will likely not come off mechnical ventilation easily and higher risk of HAP due to debilitated immune system so will try other measures of oxygenation prior to intubation for now. We will place NRB on top of already High Flow NC with fio2 of 80%. 06/04/2024: For now, going to continue current management for the patient. We are going to continue with oxygen supplementation as ordered and monitor the saturation. The patient will continue on antibiotic therapy as guided by the Infectious Disease specialist. Currently, the plan is to continue with Bactrim double strength b.i.d. was started on fluconazole 200 mg p.o. daily and cefep dotty, doxy was discontinued. We will discuss with the Infectious Disease specialist regarding the benefit of Zithromax for MAC. Considering the patient has been on extended course of steroid therapy, I am going to decrease the dose of the Solu-Medrol to 20 q.12h. Appreciate the input of the true specialist. We will monitor the patient's progress and response to management. We will repeat surveillance labs in the morning. We will continue to provide general supportive care, GI and DVT prophylaxis. Further orders per attending MD and hospital course. NEURO: Minimize central acting medications as possible. Fall Precautions. Well lighted room through the day and minimize interruptions through the night to prevent acute delirium. PULMONARY: Supplemental 02 as needed Titrate Fio2 to keep Spo2 > or = 90% DuoNebs and CPT as needed IS hourly while awake for pulmonary hygiene Out of bed to chair as tolerated CARDIOVASCULAR: Follow hemodynamics. Titrate vasopressor to keep MAP >65 or systolic blood pressure >95mmHg telemetry Drips none LINES: PIV GI & NUTRITION: Continue nutritional support Aspirations precautions Prokinetic agents and laxatives as needed KIDNEYS & ELECTROLYTES: Strict monitoring of intake and output Daily weights Avoid nephrotoxic agents Monitor electrolytes and replace as needed Goal urine output of 30mL/hr or 0.5mL/kg/hr ENDOCRINE: Maintain blood glucose between 100-180 at all times. Insulin sliding scale for blood glucose management INFECTIOUS DISEASE: Trend temperature. Clarke-culture if febrile. Micro: [ ] Sputum culture from 05/23/24 positive for MRSA, Betty albicans Pneumocystis carinii antigen positive Panculture: 06/02/24 Blood cultures Urine cultures Respiratory culture Antibiotics: Cefepime Doxycycline Bactrim ds HEMATOLOGY & COAGULATION: Monitor H&H. Keep Hgb > 7 Transfuse 1 unit of PRBC for Hgb < 7 Transfuse 1 pack of platelets of platelets < 20, 000 Watch for any signs and symptoms of bleeding SKIN: Pressure ulcer prevention per facility protocol Rehab: PT/OT Prophylaxis: GI: pepcid DVT: Lovenox Code Status: Full Resuscitation Disposition: ICU Other: Total patient care time exceeds 45 minutes excluding all procedures. Case was discussed and seen with my supervising physician. The above plan was formulated and agreed upon. DAYRON RUBIN NP Jun 04, 2024 09:54
--- NOTE | 2024-06-04 09:57 | HMCIMG ---
CHEST 1VW HISTORY: Hypoxia COMPARISON: 06/02/2024 FINDINGS: A frontal projection of the chest was obtained. Mild bilateral pulmonary infiltrates are seen may be related to mild pulmonary vascular congestion with possible superimposed pneumonitis. The heart is borderline enlarged. Degenerative changes are seen. Prominent interstitial markings are seen. No evidence of aortic calcification is seen. IMPRESSION: 1. Mild bilateral pulmonary infiltrates are seen may be related to mild pulmonary vascular congestion with possible superimposed pneumonitis.
[2024-06-04] MEDS: NACL IV ONE (11:12)
--- NOTE | 2024-06-04 11:58 | NUR ---
SS f/u SW revisited with pt. Pt states her son and daughter made it in last night and they talked until 2am. Pt states they want to continue discussion no her wishes today. Pt will call Sw if assist needed explaining MPOA and Directives to her children.
--- NOTE | 2024-06-04 13:52 | PN ---
[facility] PROGRESS NOTE Date of Service: Jun 04, 2024 Time of Service: 13:45 SUBJECTIVE: [ ] Ms. Abdlulahi is a 49-year-old female that was seen and examined today on 05/23/2024. Patient is a good historian and personal health. Patient's son Dagoberto Salcido is at bedside. Patient states that she came to the emergency department with a chief complaint of shortness of breath. Onset was two weeks ago. Location is to lungs. Duration is on and off. Character is described as "easily running out of air." Initially shortness and breath was only aggravated with climbing one or two flights of stairs but symptoms have progressively worsened and patient becomes short of breath even standing or walking short distances. There was no alleviating factors however previously symptoms were being controlled with daily morning albuterol nebulizer treatments. Patient denies any associated chest pain or dizziness. Patient reports an episode of COVID in December 2023. emergency department CBC unremarkable, chemistry unremarkable, urinalysis unremarkable, influenza screen negative, COVID negative, blood gas shows PO2 less than 45. Chest x-ray shows left lower lung pneumonia and minimal right lung base atelectasis. Upon arrival to the emergency department patient was placed on a BiPAP due to respiratory distress. 05/24/2024-patient was seen and examined at the bedside, still on BiPAP. Patient is able to speak, and says she feels much better than before. Patient says after COVID in December she developed severe bronchitis and she was on Solu-Medrol and albuterol, which did not help her much and later she had high fevers and shortness of breath which is when she came to the ED.Vitals afebrile pulse 76, RR 38 tachypneic , blood pressure 115/68, pulse oxygen 99 on BiPAP flow of 60. On ABG pH 7.47, pCO2 29, PO2 109.4, oxygen saturation 98.3. [id number] potassium 4.1 BUN15 creatinine 0.5 GFR 114. We will closely monitor the patient. 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 She was breathing better today. She has been on BiPAP all night but now he was on 100% non-rebreather with further efforts to continue to wean the oxygen requirements down. 05/27/24 patient is seen and examined at bedside, acute events overnight, case discussed with the RN, BP 131/64, afebrile, saturating 96-97% via Ventimask, FiO2 40%. The patient admits cough productive of clear phlegm. Serology tests reviewed, HIV preliminary positive, discussed with the patient. 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 We will continue the patient on IV antibiotics, continue fluconazole, continue to follow Pulmonary and ID input and recommendations. After provided in the preliminary results of HIV test, she denies any suicidal or homicidal ideations. 05/28 patient has been seen and examined, no acute events overnight, case discussed with the RN, during my visit patient is sitting comfortably in the chair, hemodynamically stable, off Ventimask, currently on 10 L via nasal cannula, saturating 98%, tolerated BiPAP overnight. she feels better, less shortness a breath, still admits cough productive of yellow phlegm. No chest pain. Getting IV antibiotics during my visit. HIV P24 antigen, nonreactive. We will continue to follow Pulmonary and Infectious Disease input and recommendations. 05/29 patient has been seen and examined, no acute events overnight, case discussed with the RN, during my visit patient is sitting comfortably in the chair, hemodynamically stable, remains on 10 L via nasal cannula, saturating 98% , still admits cough productive of yellow phlegm. No chest pain. Getting IV antibiotics during my visit. HIV P24 antigen, nonreactive. Pending CD4 cell count. We will continue to follow Pulmonary and Infectious Disease input and recommendations. 05/30 the patient has been seen and examined, no acute events overnight, BP 114/66, during my visit she is on Ventimask, saturating 95%, FiO2 60%. Without the Ventimask the patient desaturates to the low 70s. Patient tolerating BiPAP during the night. Still admits cough productive of thick yellow phlegm, no chest pain. Results of CD4 cell count reviewed, discussed with the patient. We will continue broad-spectrum IV antibiotics. Continue to follow Pulmonary and Infectious Disease input and recommendations. 05/31 the patient has been seen and examined, upgraded to the ICU, during my visit she is sitting in the chair, BP 113/72, heart rate of 109, she is on Oxymizer, 30 L, FiO2 100%. She is alert oriented x3, still admits cough productive of thick yellow phlegm, no chest pain. Hemoglobin 12.9, hematocrit 36.6, WBC 14.6. ABG with pH 7.4, pCO2 40, PO2. Chest x-ray shows left lower l obe infiltrate consistent with pneumonia. She is getting IV antibiotics during my visit. Patient will remain in the ICU, continue to follow critical Care as well as infectious disease input and recommendations. 06/01 patient is seen and examined, sitting comfortable in chair, awake, following commands, remains on high-flow oxygen, FiO2 70%, 30 L, BP 117/67, heart rate of 78, respiratory rate of 30-36, saturating 100%, CBC with a hemoglobin 13.6, hematocrit 38.9, WBC 12.4. Platelet count of 341. Chest x-ray showing persistent left lung infiltrate, cardiac size and mediastinum unremarkable. The bony structures are within the normal limits. Patient getting IV antibiotics during my visit. Patient to continue with the high-dose steroids. Serology test positive for Pneumocystis sandra. Patient on Bactrim two tablets p.o. t.i.d.. Continue also doxycycline and cefepime IV. Continue to follow infectious disease input and recommendation. Continue to follow Pulmonary input and recommendations. 06/02 patient is seen and examined at bedside, currently in prone position, alert oriented x3. CPT started last night, she has started having more loose phlegm expectorated. BP 114/74, tachycardic 114, saturating 95%, high-flow nasal cannula, 30 L, FiO2 80%. CBC with a hemoglobin 16.9, hemoglobin 14 0, hematocrit 39.8, platelet count 347. Chest x-ray shows persistent left lung infiltrate. 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 HIV preliminary positive, HIV P 24 nonreactive, HIV-one RNA by PCR [id number]. Serology test for toxoplasma currently pending. Patient on IV antibiotics as well as high-dose steroids. Continue to follow infectious Disease and Pulmonary input and recommendations. 06/03 patient seen at bedside, no acute events overnight. She continues with respiratory distress, with increasing oxygen requirements. Critical Care has discussed a possible need for intubation if she does not improve. She has been started on steroids due to underlying PCP pneumonia. WBC improved from 16.9 down to 13.5, sodium stable at 132, same as yesterday, lactic acid downtrending from 4.1 down to 3.2, remainder of her labs are relatively unremarkable. 06/04 patient seen at bedside, no acute events overnight. She remains on high- flow nasal cannula, mildly tachycardic. WBC elevated at 13.3, sodium decreased from 132 down to 129, remainder of her labs are relatively unremarkable. Continue to wean supplemental oxygen. Further care per critical Care REVIEW OF SYSTEMS 12 point review of systems negative unless noted in HPI PHYSICAL EXAM GENERAL APPEARANCE: The patient is awake, alert, and oriented, in no acute cardiopulmonary distress. NEUROLOGICAL: Cranial nerves II-XII grossly intact. Motor is 5/5 in bilateral upper and lower extremities proximal to distal. No sensory deficits. HEENT: Face is symmetric. Pupils are equal and reactive. Extraocular movements are intact. NECK: Supple. No JVD. No thyromegaly. No submental, submandibular, pre- /postauricular, occipital or supraclavicular lymphadenopathy. CHEST: Normal chest expansion. No Telemetry. LUNGS: Absence of any rales, rhonchi or any wheezing. CARDIOVASCULAR: Regular. S1 and S2 normal. No appreciable rubs, murmurs or gallops. ABDOMEN: Soft, nontender, and nondistended. There is no rebound, voluntary guarding, or rigidity. : Deferred. No Souza. EXTREMITIES: Non-edematous and not cyanotic. No clubbing. Good capillary refill. SKIN: No skin breakdown. Vital Signs (last 8hr) Date Time Temp Pulse Resp B/P (MAP) Pulse Ox O2 Delivery O2 Flow Rate FiO2 06/04/24 11:15 106 25 HFNC Heated System N/Can 30.0 80 06/04/24 11:15 106 25 06/04/24 09:21 97.9 06/04/24 07:39 116 25 HFNC Heated System N/Can 30.0 80 06/04/24 06:54 98 25 06/04/24 06:53 94 25 70 06/04/24 06:00 97 28 100 BIPAP 06/04/24 05:46 87 24 112/70 100 BIPAP LABS: Laboratory: Test 06/04/24 03:57 06/03/24 07:57 06/03/24 07:45 06/03/24 04:47 Range/Units White Blood Count 13.3 H 4.8-10.8 K/uL Red Blood Count 4.15 4.00-5.50 MIL/uL Hemoglobin 13.5 12.0-16.0 g/dL Hematocrit 37.9 36-48 % Mean Corpuscular Volume 91.3 79-99 fL Mean Corpuscular Hemoglobin 32.5 27.0-33.0 pg Mean Corpuscular Hemoglobin Concent 35.6 32.0-36.0 g/dL Red Cell Distribution Width 11.2 11.0-15.5 % Platelet Count 338 130-400 K/uL Mean Platelet Volume 10.1 7.5-10.5 fL Immature Granulocyte % (Auto) 0.8 0-1 % Neutrophils (%) (Auto) 91.7 H 40.0-77.0 % Lymphocytes (%) (Auto) 3.5 L 21.0-51.0 % Monocytes (%) (Auto) 3.8 3.0-13.0 % Eosinophils (%) (Auto) 0.0 0.0-8.0 % Basophils (%) (Auto) 0.2 0.0-5.0 % Neutrophils # (Auto) 12.2 H 1.8-7.7 K/uL Lymphocytes # (Auto) 0.5 L 1.0-4.8 K/uL Monocytes # (Auto) 0.5 0.1-1.0 K/uL Eosinophils # (Auto) 0.00 0.00-0.70 K/uL Basophils # (Auto) 0.02 0.00-0.20 K/uL Absolute Immature Granulocyte (auto 0.10 0-1 K/uL Nucleated Red Blood Cells 0.0 0.0-0.19 % Sodium Level 129 L 136-145 mmol/L Potassium Level 4.2 3.5-5.1 mmol/L Chloride Level 93 L 101-111 mmol/L Carbon Dioxide Level 27 21-32 mmol/L Blood Urea Nitrogen 28 H 7-18 mg/dL Creatinine 0.6 0.5-1.0 mg/dL Glomerular Filtration Rate Calc 109 >90 mL/min Random Glucose 163 H 70-105 mg/dL Total Calcium 9.1 8.5-10.1 mg/dL Total Bilirubin 0.3 # 0.2-1.0 mg/dL Aspartate Amino Transf (AST/SGOT) 31 10-37 U/L Alanine Aminotransferase (ALT/SGPT) 75 # 12-78 U/L Alkaline Phosphatase 112 50-136 U/L Total Protein 6.9 6.0-8.3 g/dL Albumin 2.6 L 3.5-5.0 g/dL Blood Gas Specimen Type Arterial Arterial Blood pH 7.441 7.350-7.450 Arterial Blood Partial Pressure CO2 35 32-45 mmHg Arterial Blood Partial Pressure O2 58.0 L 83.0-108.0 mmHg Arterial Blood HCO3 23.6 21.0-28.0 mmol/L Arterial Blood Oxygen Saturation 89.5 L 94.0-98.0 % Arterial Blood Base Excess -0.1 -2.0-3.0 mmol/L Hemoglobin (Blood Gas) 13.9 12.0-16.0 g/dL Sodium (Blood Gas) 129 L 136-145 MMOL/L Bedside Potassium (Blood Gas) 4.5 3.4-4.5 MMOL/L Bedside Chloride (Blood Gas) 97 L 98-107 MMOL/L Bedside Glucose (Blood Gas) 126 H 65-95 MG/DL Bedside Ionized Calcium (Blood Gas) 1.20 1.15-1.33 MMOL/L Bedside Lactic Acid (Blood Gas) 1.18 H 0.36-0.75 MMOL/L Blood Gas Temperature 37.0 35.5-37.0 CELSIUS Blood Gas Flow-by 30.00 H 0.00-15.00 L/min Blood Gas Vent Mode HFNC 30L 80 ROOM AIR FiO2 80.0 % Blood Gas Specimen Aleida ABDALLA RN LR Influenza Type A Antigen Negative For Type A NEGATIVE Influenza Type B Antigen Negative For Type B NEGATIVE SARS-CoV-2 Antigen (Rapid) PRESUMPTIVE NEGATIVE NEGATIVE Group A Streptococcus Rapid negative NEGATIVE Magnesium Level 2.20 1.80-2.40 mg/dL B-Type Natriuretic Peptide 9 0-100 pg/mL Test 06/02/24 17:41 Range/Units Lactic Acid Level 3.0 H 0.8-2.5 mmol/L Current Medications Medications (Trade) Dose Ordered Sig/Julita Route PRN Reason Start Time Stop Time Status Last Admin Dose Admin Acetaminophen (TYLenol 650MG ELIXIR) 650 mg Q6H PRN PO MILD PAIN (1-3) 06/04/24 08:30 07/04/24 08:29 06/04/24 09:21 650 MG Acetaminophen (TYLenol 650MG SUPPOSITORY) 650 mg Q6H PRN RC MILD PAIN (1-3) 05/23/24 20:30 06/22/24 20:29 Acetylcysteine (MUComyst 20% 4ML) 400mg = 2ml [id number] IH 06/02/24 00:00 07/02/24 00:00 06/04/24 11:11 800 MG Albuterol (DUOneb) 1 udvial [id number] IH 05/24/24 00:00 06/23/24 00:00 06/04/24 11:11 1 UDVIAL Azithromycin 250 ml @ 250 mls/hr Q24H IVPB 05/24/24 17:00 05/24/24 14:41 DC Azithromycin 250 ml @ 250 mls/hr Q24H STAT IVPB 05/23/24 17:17 05/24/24 14:41 DC 05/23/24 17:45 250 MLS/HR Cefepime HCl (MAXipime 2 gm vial) 2 gm Q12H IVPB 05/24/24 15:00 06/03/24 14:59 DC 06/03/24 03:18 2 GM Ceftriaxone Sodium (ROCEphine 1G INJ) 1 gm Q24H IVPB 05/24/24 17:30 05/24/24 14:41 DC Doxycycline Hyclate 250 ml @ 125 mls/hr Q12H IV 05/24/24 16:30 06/03/24 16:29 DC 06/03/24 04:23 125 MLS/HR Enoxaparin Sodium (Lovenox) 40 mg Q24H SQ 05/23/24 21:00 06/22/24 20:59 06/03/24 21:22 40 MG Famotidine (Pepcid 20mg Vial) 20 mg DAILY IV 05/24/24 09:00 06/23/24 08:59 06/04/24 09:15 20 MG Fluconazole/ Sodium Chloride 100 ml @ 100 mls/hr DAILY IV 05/26/24 09:00 05/27/24 15:57 DC 05/27/24 09:07 100 MLS/HR Furosemide (LASix 20MG VIAL) 20 mg DAILY IV 05/31/24 09:00 06/30/24 08:59 Hold 06/03/24 08:38 20 MG Guaifenesin/ Dextromethorphan (RobiTUSSin DM 200/20MG 10ML) 10 ml Q4H PRN PO COUGH 05/23/24 20:30 06/22/24 20:29 06/03/24 21:21 10 ML Lactated Ringer's (Lactated Ringers 1000ml) 500 ml ONCE IV 06/02/24 20:00 06/02/24 19:54 DC Levofloxacin/ Dextrose 100 ml @ 100 mls/hr Q24H IV 05/24/24 15:00 05/24/24 16:16 DC Magnesium Sulfate 50 ml @ 0 mls/hr PROTOCOL PRN IV hypomagnesemia 05/28/24 08:00 06/27/24 07:59 Methylprednisolone Sodium Succinate (Solu-medROL 40MG) 40 mg Q12H IVP 05/28/24 18:00 05/29/24 16:45 DC 05/29/24 05:32 40 MG Methylprednisolone Sodium Succinate (Solu-medROL 40MG) 40 mg Q6H IVP 05/29/24 16:30 06/28/24 16:29 06/04/24 11:13 40 MG Methylprednisolone Sodium Succinate (Solu-medROL 40MG) 40 mg Q8H IVP 05/24/24 01:00 05/25/24 21:51 DC 05/25/24 17:28 40 MG Methylprednisolone Sodium Succinate (Solu-medROL 40MG) 60 mg Q6H IVP 05/25/24 22:00 05/28/24 02:25 DC 05/27/24 23:55 60 MG Methylprednisolone Sodium Succinate (Solu-medROL 40MG) 60 mg Q6H IVP 05/28/24 06:00 05/28/24 08:27 DC 05/28/24 06:47 60 MG Metronidazole/ Sodium Chloride (flaGYL) 500 mg Q8H IV 05/25/24 22:00 05/25/24 21:56 DC Ondansetron HCl (zoFRAN 4MG INJ) 4 mg Q6H PRN IV NAUSEA/VOMITING 05/23/24 20:30 06/22/24 20:29 Potassium Chloride 100 ml @ 100 mls/hr AD PRN IV POTASSIUM PROTOCOL 05/28/24 08:00 06/27/24 07:59 Potassium Chloride (K-Dur/Klor-Con 20meq) 20 meq AD PRN PO POTASSIUM PROTOCOL 05/28/24 08:00 06/27/24 07:59 Potassium Chloride (KCl 10% Elixir 20meq/15ml) 20 meq AD PRN PO POTASSIUM PROTOCOL 05/28/24 08:00 06/27/24 07:59 Sodium Chloride 500 ml @ 500 mls/hr Q1H IV 06/02/24 20:00 06/02/24 20:59 DC 06/02/24 21:34 500 MLS/HR Trimethoprim/ Sulfamethoxazole (BactRIM DS) 1 tab BID PO 05/26/24 21:00 05/29/24 16:18 DC 05/29/24 08:07 1 TAB Trimethoprim/ Sulfamethoxazole (BactRIM DS) 2 tab TID PO 05/29/24 16:30 06/05/24 20:59 06/04/24 09:15 2 TAB DIAGNOSTICS / RADIOLOGY: [ ] ASSESSMENT: Acute hypoxemic respiratory failure, POA Bilateral lower lobe bacterial pneumonia + MRSA POA, +Azra Suspected PCP PNA based on CT findings vs viral/Atypical PNA . POA HIV positive (preliminary report, confirmatory test nonreactive) POA Normocytic anemia, not POA Neutrophilia, POA Hyperglycemia, POA Obesity BMI of 32.3 Former smoker Acute cystitis, POA Fatty liver, POA Moderate hypoalbuminemia POA Previous COVID-19 infection PLAN: Continue ICU Continue the patient on BiPAP alternating with high-flow oxygen Continue the patient on high-dose steroids Continue Bactrim Continue doxycycline Continue lasix 20mg q24h Continue broad-spectrum antibiotic with doxycycline, and cefepime IV Continue to follow Pulmonary input recommendation Continue to follow infectious disease input and recommendation Follow serology test for toxoplasma gone the Follow chest x-ray Continue bronchodilators per respiratory therapist Replace electrolytes IV per protocol A.m. labs GI and DVT prophylaxis. Further orders to follow based on the above results Infectious disease consulted, appreciate recommendations Disposition: Remains admitted to the ICU, pending improvement in clinical condition. Total ICU time spent greater than 30 minutes. HEATHER RICE MD Jun 04, 2024 13:52
--- NOTE | 2024-06-04 16:10 | PN ---
INFECTIOUS DISEASE PROGRESS NOTE Date of Service: Jun 04, 2024 SUBJECTIVE: This is a 49-year-old female patient who was admitted with chief complaint of shortness of breaths. A chest x-ray done on admission showed left lower lung pneumoniae. A CT chest showed bilateral pulmonary infiltrates but no evidence of PE. Patient was seen and examined at bedside in ICU room 208. Patient is awake, alert and oriented x 3. Family member visiting at bedside. Patient is afebrile, temperature is 97.9 and the WBC is 13.3. HIV test confirmed positive. Patient is aware of findings. Patient continues on high- flow oxygen at 80% and 30 L oxygen. Continues on Solu-Medrol IV. Patient has o ral candidiasis. We will start fluconazole 200 mg p.o. daily and continue on Bactrim DS. We will continue to follow patient's care. PHYSICAL EXAM EYES: Anicteric. Pupils equal and reactive. HENT: No oral thrush seen, moist Oral mucosa. Oral candidiasis. NECK: Supple, no JVD or thyromegaly. LUNGS: Lung sounds diminished. Dyspnea. On high-flow Oxygen support. CARDIOVASCULAR: S1, S2 regular. No murmur heard. ABDOMEN: Soft, non tender, bowel sounds present, no organomegaly. CENTRAL NERVOUS SYSTEM: Awake, alert, oriented x 3. SKIN: No rashes, no swelling. LYMPHATICS: No peripheral lymphadenopathy. MUSCULOSKELETAL: No joint swelling, erythema or tenderness. EXTREMITIES: No cyanosis or clubbing. BACK: No deformity, no pressure ulcer. GENITOURINARY: No dysuria or hematuria. Vital Sign (Last 12 Hours) 06/04/24 06/04/24 06/04/24 06/04/24 04:30 04:46 05:00 05:30 Pulse 107 101 97 96 Resp 20 B/P (MAP) 113/80 Pulse Ox 100 100 100 100 O2 Delivery BIPAP BIPAP BIPAP BIPAP 06/04/24 06/04/24 06/04/24 06/04/24 05:46 06:00 06:53 06:54 Pulse 87 97 94 98 Resp B/P (MAP) 112/70 Pulse Ox 100 100 O2 Delivery BIPAP BIPAP FiO2 70 06/04/24 06/04/24 06/04/24 06/04/24 07:39 09:21 11:15 11:15 Temp 97.9 Pulse 116 106 106 Resp 25 25 25 O2 Delivery HFNC Heated System N/Can HFNC Heated System N/Can O2 Flow Rate 30.0 30.0 FiO2 80 80 Intake & Output (last 24hrs) 06/03/24 06/03/24 06/04/24 15:00 23:00 07:00 Intake Total 180 ml Balance 180 ml LABS: Laboratory: Test 06/04/24 03:57 06/03/24 07:57 06/03/24 07:45 06/03/24 04:47 Range/Units White Blood Count 13.3 H 4.8-10.8 K/uL Red Blood Count 4.15 4.00-5.50 MIL/uL Hemoglobin 13.5 12.0-16.0 g/dL Hematocrit 37.9 36-48 % Mean Corpuscular Volume 91.3 79-99 fL Mean Corpuscular Hemoglobin 32.5 27.0-33.0 pg Mean Corpuscular Hemoglobin Concent 35.6 32.0-36.0 g/dL Red Cell Distribution Width 11.2 11.0-15.5 % Platelet Count 338 130-400 K/uL Mean Platelet Volume 10.1 7.5-10.5 fL Immature Granulocyte % (Auto) 0.8 0-1 % Neutrophils (%) (Auto) 91.7 H 40.0-77.0 % Lymphocytes (%) (Auto) 3.5 L 21.0-51.0 % Monocytes (%) (Auto) 3.8 3.0-13.0 % Eosinophils (%) (Auto) 0.0 0.0-8.0 % Basophils (%) (Auto) 0.2 0.0-5.0 % Neutrophils # (Auto) 12.2 H 1.8-7.7 K/uL Lymphocytes # (Auto) 0.5 L 1.0-4.8 K/uL Monocytes # (Auto) 0.5 0.1-1.0 K/uL Eosinophils # (Auto) 0.00 0.00-0.70 K/uL Basophils # (Auto) 0.02 0.00-0.20 K/uL Absolute Immature Granulocyte (auto 0.10 0-1 K/uL Nucleated Red Blood Cells 0.0 0.0-0.19 % Sodium Level 129 L 136-145 mmol/L Potassium Level 4.2 3.5-5.1 mmol/L Chloride Level 93 L 101-111 mmol/L Carbon Dioxide Level 27 21-32 mmol/L Blood Urea Nitrogen 28 H 7-18 mg/dL Creatinine 0.6 0.5-1.0 mg/dL Glomerular Filtration Rate Calc 109 >90 mL/min Random Glucose 163 H 70-105 mg/dL Total Calcium 9.1 8.5-10.1 mg/dL Total Bilirubin 0.3 # 0.2-1.0 mg/dL Aspartate Amino Transf (AST/SGOT) 31 10-37 U/L Alanine Aminotransferase (ALT/SGPT) 75 # 12-78 U/L Alkaline Phosphatase 112 50-136 U/L Total Protein 6.9 6.0-8.3 g/dL Albumin 2.6 L 3.5-5.0 g/dL Blood Gas Specimen Type Arterial Arterial Blood pH 7.441 7.350-7.450 Arterial Blood Partial Pressure CO2 35 32-45 mmHg Arterial Blood Partial Pressure O2 58.0 L 83.0-108.0 mmHg Arterial Blood HCO3 23.6 21.0-28.0 mmol/L Arterial Blood Oxygen Saturation 89.5 L 94.0-98.0 % Arterial Blood Base Excess -0.1 -2.0-3.0 mmol/L Hemoglobin (Blood Gas) 13.9 12.0-16.0 g/dL Sodium (Blood Gas) 129 L 136-145 MMOL/L Bedside Potassium (Blood Gas) 4.5 3.4-4.5 MMOL/L Bedside Chloride (Blood Gas) 97 L 98-107 MMOL/L Bedside Glucose (Blood Gas) 126 H 65-95 MG/DL Bedside Ionized Calcium (Blood Gas) 1.20 1.15-1.33 MMOL/L Bedside Lactic Acid (Blood Gas) 1.18 H 0.36-0.75 MMOL/L Blood Gas Temperature 37.0 35.5-37.0 CELSIUS Blood Gas Flow-by 30.00 H 0.00-15.00 L/min Blood Gas Vent Mode HFNC 30L 80 ROOM AIR FiO2 80.0 % Blood Gas Specimen Aleida ABDALLA RN LR Influenza Type A Antigen Negative For Type A NEGATIVE Influenza Type B Antigen Negative For Type B NEGATIVE SARS-CoV-2 Antigen (Rapid) PRESUMPTIVE NEGATIVE NEGATIVE Group A Streptococcus Rapid negative NEGATIVE Magnesium Level 2.20 1.80-2.40 mg/dL B-Type Natriuretic Peptide 9 0-100 pg/mL Test 06/02/24 17:41 Range/Units Lactic Acid Level 3.0 H 0.8-2.5 mmol/L ASSESSMENT: Acute hypoxic respiratory failure, requiring high-flow oxygen support. 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 Positive HIV test. Leukocytosis. Obesity. Oral candidiasis. PLAN: Start fluconazole 200 mg p.o. daily. Continue Bactrim DS b.i.d. Okay to discontinue cefepime and doxycycline. Continue oxygen support, currently on high-flow oxygen. Continue bronchodilators. We will monitor electrolytes. This case was reviewed and discussed with my supervising physician and the above assessment and plan was formulated and agreed upon. ATTESTATION BY PHYSICIAN I have seen and examined the patient. I reviewed the documentation, medical decision making, and treatment plan as noted by the mid-level provider above. I agree with the findings and plan of care. [place] MD, MIRTA L [facility] Jun 04, 2024 16:10
[2024-06-04] MEDS: fluCONazole 100 MG TAB PO ONE (16:29)
[2024-06-04] MEDS: Solu-medROL 40MG VIAL IVP SCH (18:16)
[2024-06-04] MEDS: CLOTRIMAZOLE 10 MG TROCHE MM SCH (20:55)
[2024-06-05] VITALS (33 sets, daily range): BP systolic 101–141; BP diastolic 51–84; PULSE 78–125; RESP 21–35; TEMP 97.8–99.1; O2SAT 95–100
[2024-06-05 04:21] LABS: HEMATOCRIT 36.1 % (36-48); IMMATURE GRANULOCYTE ABSOLUTE 0.07 K/uL (0-1); LYMPHOCYTES # (AUTO) 0.3 K/uL (1.0-4.8); LYMPHOCYTES % (AUTO) 2.6 % (21.0-51.0); MEAN CORPUSCULAR HEMOGLOBIN 32.5 pg (27.0-33.0); MEAN CORPUSCULAR HGB CONC 35.2 g/dL (32.0-36.0); MEAN CORPUSCULAR VOLUME 92.3 fL (79-99); MONOCYTES # (AUTO) 0.3 K/uL (0.1-1.0); MONOCYTES % (AUTO) 2.6 % (3.0-13.0); NEUTROPHILS # (AUTO) 10.5 K/uL (1.8-7.7); NEUTROPHILS % (AUTO) 94.2 % (40.0-77.0); PLATELET COUNT (AUTO) 292 K/uL (130-400); RED BLOOD CELL COUNT(AUTO) 3.91 MIL/uL (4.00-5.50); RED CELL DISTRIBUTION WIDTH 11.4 % (11.0-15.5); WHITE BLOOD COUNT (AUTO) 11.1 K/uL (4.8-10.8)
[2024-06-05 04:26] LABS: CREATININE 0.4 mg/dL (0.5-1.0); POTASSIUM 4.4 mmol/L (3.5-5.1)
[2024-06-05] MEDS: Solu-medROL 40MG VIAL IVP SCH (06:18)
--- NOTE | 2024-06-05 10:05 | PN ---
[facility] PROGRESS NOTE Date Patient Seen: Jun 05, 2024 Time of Visit: 10:01 Supervising Physician: Dr. Bacon Primary Care Physician: Stu Foss MD Outpatient Specialists: [ ] Inpatient Consults: Pulmonology PROBLEM LIST: Severe ARDS Severe Sepsis Acute hypoxemic respiratory failure, POA requiring high Flow with 80% Bilateral lower lobe bacterial pneumonia + MRSA POA, +Azra Confirmed PCP PNA per Ag (serology), POA New HIV/AIDS positive POA Normocytic anemia, not POA Neutrophilia, POA Hyperglycemia, POA Obesity BMI of 32.3 Former smoker Fatty liver, POA Moderate hypoalbuminemia POA Previous COVID-19 infection INTERVAL HISTORY: 05/25/2024: At the time of my evaluation, the patient was lying in bed. She is currently on a non-rebreather mask. She reports feeling slightly better today. No laboratory data for review today. No new complaint. 05/28-patient is awake alert and oriented x3 currently receiving nebulizer christopher atment. She has been tolerating BiPAP overnight and currently on 10 L via Oxymizer which is less than 2 days ago which was 15 liters/minute saturating 96%. Patient has been afebrile and hemodynamically stable. Patient reports good urine output and bowel movements x2 yesterday. On laboratory white count is normal neutrophils the same as yesterday 89.8. Chemistry kidneys are doing good creatinine 0.5 GFR 114 glucose 150 mg/dL we will order hemoglobin A1c for tomorrow on chest x-ray. We will continue to follow ID recommendation. 05/29/24-patient is awake alert and oriented x3. She is sitting up on recliner chair with high FiO2 requirements 10 L via Oxymizer. We will increase Solu- Medrol to 40 mg IV q.6 hours and continue with doxycycline cefepime and in creased Bactrim to full-dose two tablets p.o. TID. Patient's denies chills, chest pain palpitations. However she does report continues shortness for breath and gets winded easily with a few steps to the restroom. Patient to continue BiPAP at night and p.r.n.. Chest x-ray worsening left lower lobe pneumonia. 05/30/24- patient is awake alert and oriented x3 sitting up in recliner chair. Patient is easily winded with conversation currently on non-rebreather at 100% FiO2. His hypoxemia is worsening with the a pH of 7.45 pCO2 of 38 PO2 of 68.7 and a bicarb 26. We will have patient transferred to ICU and we will oxygen in the following order: with high-flow if high flow not enough will start high flow + NRB and if not enough then switch to bipap. She is high risk for decompensation although patient reports she does not feel any increased shortness of breath she is easily winded and tachycardic with ambulating short distance to the restroom. On 2D echo patient has not LVEF of greater than 55% with mild concentric left ventricular hypertrophy left ventricular diastolic function is normal. 05/31/24- Pt is awake alert and oriented x 3 she reamins in the icu due to high risk for resp decompensation. She is hemodynamically stable blood pressure 105/50 O2 sat of 95% with high-flow on 30 L with a FiO2 of 90% respiratory rate is 28 heart rate of 100 and afebrile. Patient gets easily winded when holding a conversation. Encouraged to lay down prone. She continues with high dose steroids Solu-Medrol 40 q.6 hours. Urine output 2.9 L in last 24 hours, WBCs are 14.6 H&H is 12.9/36.6 with a platelet count of 304 K. on chemistry sodium is 134 chloride is 98 BUN of 21 creatinine of 0.5 and GFR of 114 glucose of 151 mg/dL LDH is 483 albumin 2.6. On serology Pneumocystis sandra antigen +. Clinical findings and laboratory findings consistent with HIV/AIDS , ID is on the case and we will follow his recommendations. Per patient she has talked to her partner about her results, I educated her that is very important for her s exual partners to be notified and so they can get checked for HIV. Pt verbalized understanding. On chest XR left lower lobe infiltrates consistent with pneumonia. 06/01/24-patient sitting up in chair sleeping but was easily arousable to voice. Awake alert and oriented x3,. Currently on high-flow O2 with a FiO2 of 80%. No major overnight events per RN. she is hemodynamically stable and afebrile. Urine output is good 2.9 L in the last 24 hours. WBCs are 12.4 trended down from yesterday neutrophils are 92.4. On chemistry sodium 134 with a potassium of 5.4 chloride of 96 BUN of 22 creatinine of 0.6 and GFR of 109 mg/dL ALT 86 albumin 2.5. Patient continues on doxycycline, cefepime, and Bactrim DS two tablets 3 times a day. We will continue follow ID recommendations 06/02/24-patient is awake alert and oriented x3 sitting up in recliner chair she has been proned this morning and tolerated well saturating 100% on high flow of with 80% FiO2. Now sitting up and saturating 92%. She reports that she is now able to expectorate some sputum. Patient has a temperature 99.9 she is sinus tachy in the monitor 115 beats per minute, respiratory rate of 28 and hemodynamically stable. Pancultured. Antibiotics per ID. Urine output is 1 L in the last 24 hours with a balance of -1.5L WBCs today are 16.9 neutrophils. We will order 500mls bolus of LR if no improvement we will give another bolus. Chemistry sodium was 132 chloride 96 BUN of 26, potassium is 4.8 BUN of 26 creatinine 0.6 GFR of 109 mg/dL albumin 2.6. we will order lactic. Per Dr Garcia recommends Vancomycin, this was communicated with ID. 04/03/25-patient with no major overnight events as per RN she is a little tachycardic in the 113 beats per minute, saturating 96% with FiO2 of 80% on high-flow nasal cannula with 30 L. Patient is high risk for intubation and I informed her of this encouraged her to have some Advance directive prior to requiring emergency intubation. She has accepted social work lecturer consult for advance directive and agreed to let her kids know about her condition and discuss w/ them her wishes and theirs before signing any advance directives. T- max overnight 99.7 with a T low of 98.1. She is hemodynamically stable. She denies feeling any worsening shortness of breath. Patient denies any nausea vomiting or diarrhea. Urine output 2.5 L in the last 24 hours with a-610 mL balance. WBCs trending down 13.5 today H&H stable 12.8/36.7 neutrophils are 91.3. Chemistries sodium 132 chloride of 96 carbon dioxide 26 BUN 23 creatinine of 0.5 with a GFR of 114 random glucose 143 mg/dL lactic acid trended down to 3.0 ABG with a pH of 7.44 pCO2 of 35 PO2 decrease to 58 PF Ratio 72.5, we will continue to encourage proning and add non-rebreather on top of high-flow nasal cannula. 06/04/2024: At the time of my evaluation, the patient was sitting up in bed. She remains on a non-rebreather mask over a high-flow nasal cannula. Oxygen saturation is optimal arranging between 93 to 98%. No febrile events. Laboratory data showed a improving WBC count down to 13.3. Chemistry panel showed a low-sodium count of one going to nine with a potassium of 4.2, chloride is 93, CO2 of 97, BUN is 28, creatinine of 0.6 and a GFR of 119. No new microbiology data for review. Chest x-ray today showed bilateral pulmonary infiltrates that persists. The patient continues on antibiotic therapy guided by the Infectious Disease specialist. No new complaint. 06/05/2024: At the time of my evaluation, the patient is lying in bed. The staff nurse reports no acute events overnight. The patient remains on high-flow nasal cannula 30% and backup non-rebreather mask 80%. Vital signs today which stable blood pressure, very labile heart rate, respiratory rate and SpO2. On labs today, the patient had a improved WBC count down to 11.1. Chemistry panel showed a downward trend of sodium to 128. Potassium 4.4, chloride 94 and CO2 of 27. Renal parameters remain stable. Microbiology data showed no new studies. No new imaging for review today. Patient has no new complaint. REVIEW OF SYSTEMS: General: No malaise or fever. Neurological: No fainting episodes or seizures. HEENT: No nasal congestion or nasal secretion. Respiratory: Yes for cough, yellow phlegm, shortness for breath on minimal exertion. Cardiac: No chest pain or palpitations. Gastrointestinal: No vomiting or diarrhea. Genitourinary: No dysuria hematuria. Skin: No rashes or lesions. Hematological: No bruises or bleeding. Musculoskeletal: No joint pains or arthralgias. Psychiatric: No depression or panic attacks. PHYSICAL EXAM: GENERAL: alert, weak, awake oriented x 3 HEENT: EOMI, Sclera non icteric, moist mucosa NECK: Supple, no JVD, trachea midline LUNGS: Fine crackles to bilateral lower posterior bases lung sounds. No wheezes HEART: Regular rate and rhythm. Normal S1 and S2, without murmurs ABD: Abdomen soft, nontender. Bowel sounds present EXT: No clubbing cyanosis or edema NEURO: Alert and oriented to person, follows commands Vital Signs (last 8hr) Date Time Temp Pulse Resp B/P (MAP) Pulse Ox O2 Delivery O2 Flow Rate FiO2 06/05/24 07:15 96 24 HFNC Heated System N/Can 30.0 80 06/05/24 07:04 103 25 06/05/24 06:00 91 25 132/80 100 BIPAP 70 06/05/24 05:00 84 23 135/83 100 BIPAP 70 06/05/24 04:30 97.9 06/05/24 04:00 90 22 141/51 100 BIPAP 70 06/05/24 04:00 99 Hi-Flow N/C+ 30 80 06/05/24 03:00 91 22 122/64 100 BIPAP 70 06/05/24 02:52 89 27 70 LABS: Hematology Labs: Test 06/05/24 03:50 Range/Units White Blood Count 11.1 H 4.8-10.8 K/uL Red Blood Count 3.91 L 4.00-5.50 MIL/uL Hemoglobin 12.7 12.0-16.0 g/dL Hematocrit 36.1 36-48 % Mean Corpuscular Volume 92.3 79-99 fL Mean Corpuscular Hemoglobin 32.5 27.0-33.0 pg Mean Corpuscular Hemoglobin Concent 35.2 32.0-36.0 g/dL Red Cell Distribution Width 11.4 11.0-15.5 % Platelet Count 292 130-400 K/uL Mean Platelet Volume 9.9 7.5-10.5 fL Immature Granulocyte % (Auto) 0.6 0-1 % Neutrophils (%) (Auto) 94.2 H 40.0-77.0 % Lymphocytes (%) (Auto) 2.6 L 21.0-51.0 % Monocytes (%) (Auto) 2.6 L 3.0-13.0 % Eosinophils (%) (Auto) 0.0 0.0-8.0 % Basophils (%) (Auto) 0.0 0.0-5.0 % Neutrophils # (Auto) 10.5 H 1.8-7.7 K/uL Lymphocytes # (Auto) 0.3 L 1.0-4.8 K/uL Monocytes # (Auto) 0.3 0.1-1.0 K/uL Eosinophils # (Auto) 0.00 0.00-0.70 K/uL Basophils # (Auto) 0.00 0.00-0.20 K/uL Absolute Immature Granulocyte (auto 0.07 0-1 K/uL Nucleated Red Blood Cells 0.0 0.0-0.19 % Chemistry Labs: Test 06/05/24 03:50 06/04/24 03:57 Range/Units Sodium Level 128 L 136-145 mmol/L Potassium Level 4.4 3.5-5.1 mmol/L Chloride Level 94 L 101-111 mmol/L Carbon Dioxide Level 27 21-32 mmol/L Blood Urea Nitrogen 18 7-18 mg/dL Creatinine 0.4 L 0.5-1.0 mg/dL Glomerular Filtration Rate Calc 121 >90 mL/min Random Glucose 149 H 70-105 mg/dL Total Calcium 8.5 8.5-10.1 mg/dL Total Bilirubin 0.3 # 0.2-1.0 mg/dL Aspartate Amino Transf (AST/SGOT) 31 10-37 U/L Alanine Aminotransferase (ALT/SGPT) 75 # 12-78 U/L Alkaline Phosphatase 112 50-136 U/L Total Protein 6.9 6.0-8.3 g/dL Albumin 2.6 L 3.5-5.0 g/dL DIAGNOSTICS / RADIOLOGY RESULTS: [ ] PLAN Follow ID recommendations Encouraged to prone herself Maintain O2 sats above 92% Monitor temperature trend Continue high-dose steroids Duo nebs q.6 hours Abx Per ID trend Lactic acid. Due to severe sob will not do 30ml/kg bolus at one time if pt not hypotensive to avoid worsening resp status Instead will try pulsating boluses of 500 mL of NS as tolerated. Follow respiratory status closely as she is high risk for decompensation. social work lecturer to discuss advance directives. Monitor resp status closely high risk for intubation, Pt will likely not come off mechnical ventilation easily and higher risk of HAP due to debilitated immune system so will try other measures of oxygenation prior to intubation for now. We will place NRB on top of already High Flow NC with fio2 of 80%. 06/04/2024: For now, going to continue current management for the patient. We are going to continue with oxygen supplementation as ordered and monitor the saturation. The patient will continue on antibiotic therapy as guided by the Infectious Disease specialist. Currently, the plan is to continue with Bactrim double strength b.i.d. was started on fluconazole 200 mg p.o. daily and cefepime, doxy was discontinued. We will discuss with the Infectious Disease specialist regarding the benefit of Zithromax for MAC. Considering the patient has been on extended course of steroid therapy, I am going to decrease the dose of the Solu-Medrol to 20 q.12h. Appreciate the input of the true specialist. We will monitor the patient's progress and response to management. We will repeat surveillance labs in the morning. We will continue to provide general supportive care, GI and DVT prophylaxis. Further orders per attending MD and hospital course. 06/05/2024: For now, going to continue current management for the patient. She will continue on oxygen supplementation as ordered and we will adjust as necessary. Steroid therapy was decreased overnight. She is currently on Solu- Medrol 20 mg IV q.12. She will continue on antibiotics per the guidance of Infectious Disease specialist, currently receiving Bactrim DS and fluconazole. I appreciate the input of treating specialist. We will monitor the patient's progress and response to management. Continue to provide general supportive care, GI and DVT prophylaxis. Further orders per attending MD and hospital course. NEURO: Minimize central acting medications as possible. Fall Precautions. Well lighted room through the day and minimize interruptions through the night to prevent acute delirium. PULMONARY: Supplemental 02 as needed Titrate Fio2 to keep Spo2 > or = 90% DuoNebs and CPT as needed IS hourly while awake for pulmonary hygiene Out of bed to chair as tolerated CARDIOVASCULAR: Follow hemodynamics. Titrate vasopressor to keep MAP >65 or systolic blood pressure >95mmHg telemetry Drips none LINES: PIV GI & NUTRITION: Continue nutritional support Aspirations precautions Prokinetic agents and laxatives as needed KIDNEYS & ELECTROLYTES: Strict monitoring of intake and output Daily weights Avoid nephrotoxic agents Monitor electrolytes and replace as needed Goal urine output of 30mL/hr or 0.5mL/kg/hr ENDOCRINE: Maintain blood glucose between 100-180 at all times. Insulin sliding scale for blood glucose management INFECTIOUS DISEASE: Trend temperature. Clarke-culture if febrile. Micro: [ ] Sputum culture from 05/23/24 positive for MRSA, Betty albicans Pneumocystis carinii antigen positive Panculture: 06/02/24 Blood cultures Urine cultures Respiratory culture Antibiotics: Bactrim DS Fluconazole HEMATOLOGY & COAGULATION: Monitor H&H. Keep Hgb > 7 Transfuse 1 unit of PRBC for Hgb < 7 Transfuse 1 pack of platelets of platelets < 20, 000 Watch for any signs and symptoms of bleeding SKIN: Pressure ulcer prevention per facility protocol Rehab: PT/OT Prophylaxis: GI: pepcid DVT: Lovenox Code Status: Full Resuscitation Disposition: ICU Other: Total patient care time exceeds 45 minutes excluding all procedures. Case was discussed and seen with my supervising physician. The above plan was formulated and agreed upon. DAYRON RUBIN NP Jun 05, 2024 10:05
[2024-06-05] MEDS: fluCONazole 100 MG TAB PO SCH (10:26)
--- NOTE | 2024-06-05 11:37 | PN ---
INFECTIOUS DISEASE PROGRESS NOTE Date of Service: Jun 05, 2024 SUBJECTIVE: This is a 49-year-old female patient who was admitted with chief complaint of shortness of breaths. A chest x-ray done on admission showed left lower lung pneumoniae. A CT chest showed bilateral pulmonary infiltrates but no evidence of PE. 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 Patient was seen and examined at bedside in ICU room 208. Patient is awake, alert and oriented x 3. Patient is afebrile, temperature is 98.4 and the WBC trended down to 11.1. The repeat sputum culture collection came back positive for Betty albicans. Will continues on fluconazole and Bactrim DS p.o. Still having dyspneic episodes. Continues on high-flow oxygen at 80% and 30 L oxygen. We will continue to follow patient's care. PHYSICAL EXAM EYES: Anicteric. Pupils equal and reactive. HENT: No oral thrush seen, moist Oral mucosa. Oral candidiasis. NECK: Supple, no JVD or thyromegaly. LUNGS: Lung sounds diminished. Dyspnea. On high-flow Oxygen support. CARDIOVASCULAR: S1, S2 regular. No murmur heard. ABDOMEN: Soft, non tender, bowel sounds present, no organomegaly. CENTRAL NERVOUS SYSTEM: Awake, alert, oriented x 3. SKIN: No rashes, no swelling. LYMPHATICS: No peripheral lymphadenopathy. MUSCULOSKELETAL: No joint swelling, erythema or tenderness. EXTREMITIES: No cyanosis or clubbing. BACK: No deformity, no pressure ulcer. GENITOURINARY: No dysuria or hematuria. Vital Sign (Last 12 Hours) 06/04/24 06/04/24 06/05/24 06/05/24 23:35 23:36 00:00 00:00 Temp 98.6 Pulse 115 92 Resp 26 23 B/P (MAP) 123/70 Pulse Ox 100 99 O2 Delivery BIPAP Hi-Flow N/C+ O2 Flow Rate 30 FiO2 70 70 80 06/05/24 06/05/24 06/05/24 06/05/24 01:00 02:00 02:52 03:00 Pulse 78 78 89 91 Resp 22 24 27 22 B/P (MAP) 111/60 105/61 122/64 Pulse Ox 100 100 100 O2 Delivery BIPAP BIPAP BIPAP FiO2 70 70 70 70 06/05/24 06/05/24 06/05/2406/05/25 04:00 04:00 04:30 05:00 Temp 97.9 Pulse 90 84 Resp 22 23 B/P (MAP) 141/51 135/83 Pulse Ox 99 100 100 O2 Delivery Hi-Flow N/C+ BIPAP BIPAP O2 Flow Rate 30 FiO2 80 70 70 06/05/24 06/05/24 06/05/24 06/05/24 06:00 07:00 07:04 07:15 Pulse 91 100 103 96 Resp 25 35 25 24 B/P (MAP) 132/80 Pulse Ox 100 94 O2 Delivery BIPAP N/C High Flow System HFNC Heated System N/Can O2 Flow Rate 30.0 30.0 FiO2 70 70 80 06/05/24 06/05/24 06/05/24 06/05/24 08:00 08:00 09:00 10:00 Temp 98.4 Pulse 118 115 107 Resp 35 33 25 B/P (MAP) 132/76 106/53 Pulse Ox 95 95 99 100 O2 Delivery Hi-Flow N/C+ N/C High Flow System N/C High Flow System N/C High Flow System O2 Flow Rate 30 30.0 30.0 30.0 FiO2 80 70 70 70 06/05/24 11:00 Pulse 104 Resp 25 B/P (MAP) 124/79 Pulse Ox 98 O2 Delivery N/C High Flow System O2 Flow Rate 30.0 FiO2 70 Intake & Output (last 24hrs) 06/04/24 06/04/24 06/05/24 15:00 23:00 07:00 Intake Total 2090.0 ml Balance 2090.0 ml LABS: Laboratory: Test 06/05/24 03:50 06/04/24 03:57 Range/Units White Blood Count 11.1 H 4.8-10.8 K/uL Red Blood Count 3.91 L 4.00-5.50 MIL/uL Hemoglobin 12.7 12.0-16.0 g/dL Hematocrit 36.1 36-48 % Mean Corpuscular Volume 92.3 79-99 fL Mean Corpuscular Hemoglobin 32.5 27.0-33.0 pg Mean Corpuscular Hemoglobin Concent 35.2 32.0-36.0 g/dL Red Cell Distribution Width 11.4 11.0-15.5 % Platelet Count 292 130-400 K/uL Mean Platelet Volume 9.9 7.5-10.5 fL Immature Granulocyte % (Auto) 0.6 0-1 % Neutrophils (%) (Auto) 94.2 H 40.0-77.0 % Lymphocytes (%) (Auto) 2.6 L 21.0-51.0 % Monocytes (%) (Auto) 2.6 L 3.0-13.0 % Eosinophils (%) (Auto) 0.0 0.0-8.0 % Basophils (%) (Auto) 0.0 0.0-5.0 % Neutrophils # (Auto) 10.5 H 1.8-7.7 K/uL Lymphocytes # (Auto) 0.3 L 1.0-4.8 K/uL Monocytes # (Auto) 0.3 0.1-1.0 K/uL Eosinophils # (Auto) 0.00 0.00-0.70 K/uL Basophils # (Auto) 0.00 0.00-0.20 K/uL Absolute Immature Granulocyte (auto 0.07 0-1 K/uL Nucleated Red Blood Cells 0.0 0.0-0.19 % Sodium Level 128 L 136-145 mmol/L Potassium Level 4.4 3.5-5.1 mmol/L Chloride Level 94 L 101-111 mmol/L Carbon Dioxide Level 27 21-32 mmol/L Blood Urea Nitrogen 18 7-18 mg/dL Creatinine 0.4 L 0.5-1.0 mg/dL Glomerular Filtration Rate Calc 121 >90 mL/min Random Glucose 149 H 70-105 mg/dL Total Calcium 8.5 8.5-10.1 mg/dL Total Bilirubin 0.3 # 0.2-1.0 mg/dL Aspartate Amino Transf (AST/SGOT) 31 10-37 U/L Alanine Aminotransferase (ALT/SGPT) 75 # 12-78 U/L Alkaline Phosphatase 112 50-136 U/L Total Protein 6.9 6.0-8.3 g/dL Albumin 2.6 L 3.5-5.0 g/dL ASSESSMENT: Acute hypoxic respiratory failure, requiring high-flow oxygen support. 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 Positive HIV test. Leukocytosis. Obesity. Oral candidiasis. PLAN: Continue fluconazole p.o. Continue Bactrim DS b.i.d p.o.. Continue GI prophylaxis. Continue oxygen support, currently on high-flow oxygen. Continue bronchodilators. Continue DVT prophylaxis. We will monitor electrolytes. This case was reviewed and discussed with my supervising physician and the above assessment and plan was formulated and agreed upon. ATTESTATION BY PHYSICIAN I have seen and examined the patient. I reviewed the documentation, medical decision making, and treatment plan as noted by the mid-level provider above. I agree with the findings and plan of care. [place] MD, MIRTA L [facility] Jun 05, 2024 11:37
--- NOTE | 2024-06-05 12:34 | NUR ---
SS f/u Sw visited with pt who is now ready for [facility] referral to be made. Pt signed consent for referral. SW spoke to Jarred at [facility] and made referral. Clinicals were faxed to [phone]
[2024-06-05 13:36] LABS: CREATININE 0.6 mg/dL (0.5-1.0); POTASSIUM 4.9 mmol/L (3.5-5.1)
--- NOTE | 2024-06-05 15:18 | PN ---
[facility] PROGRESS NOTE Date of Service: Jun 05, 2024 Time of Service: 15:17 SUBJECTIVE: [ ] Ms. Abdullahi is a 49-year-old female that was seen and examined today on 05/23/2024. Patient is a good historian and personal health. Patient's son Dagoberto Salcido is at bedside. Patient states that she came to the emergency department with a chief complaint of shortness of breath. Onset was two weeks ago. Location is to lungs. Duration is on and off. Character is described as "easily running out of air." Initially shortness and breath was only aggravated with climbing one or two flights of stairs but symptoms have progressively worsened and patient becomes short of breath even standing or walking short distances. There was no alleviating factors however previously symptoms were being controlled with daily morning albuterol nebulizer treatments. Patient denies any associated chest pain or dizziness. Patient reports an episode of COVID in December 2023. emergency department CBC unremarkable, chemistry unremarkable, urinalysis unremarkable, influenza screen negative, COVID negative, blood gas shows PO2 less than 45. Chest x-ray shows left lower lung pneumonia and minimal right lung base atelectasis. Upon arrival to the emergency department patient was placed on a BiPAP due to respiratory distress. 05/24/2024-patient was seen and examined at the bedside, still on BiPAP. Patient is able to speak, and says she feels much better than before. Patient says after COVID in December she developed severe bronchitis and she was on Solu-Medrol and albuterol, which did not help her much and later she had high fevers and shortness of breath which is when she came to the ED.Vitals afebrile pulse 76, RR 38 tachypneic , blood pressure 115/68, pulse oxygen 99 on BiPAP flow of 60. On ABG pH 7.47, pCO2 29, PO2 109.4, oxygen saturation 98.3. [id number] potassium 4.1 BUN15 creatinine 0.5 GFR 114. We will closely monitor the patient. Agricultural Equipment Operator consult noted waiting on the recommendation 05/25/24 patient was seen and examined and case discussed with RN and family by the bedside. She was breathing better today. She has been on BiPAP all night but now he was on 100% non-rebreather with further efforts to continue to wean the oxygen requirements down. 05/27/24 patient is seen and examined at bedside, acute events overnight, case discussed with the RN, BP 131/64, afebrile, saturating 96-97% via Ventimask, FiO2 40%. The patient admits cough productive of clear phlegm. Serology tests reviewed, HIV preliminary positive, discussed with the patient. 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 We will continue the patient on IV antibiotics, continue fluconazole, continue to follow Pulmonary and ID input and recommendations. After provided in the preliminary results of HIV test, she denies any suicidal or homicidal ideations. 05/28 patient has been seen and examined, no acute events overnight, case discussed with the RN, during my visit patient is sitting comfortably in the chair, hemodynamically stable, off Ventimask, currently on 10 L via nasal cannula, saturating 98%, tolerated BiPAP overnight. she feels better, less shortness a breath, still admits cough productive of yellow phlegm. No chest pain. Getting IV antibiotics during my visit. HIV P24 antigen, nonreactive. We will continue to follow Pulmonary and Infectious Disease input and recommendations. 05/29 patient has been seen and examined, no acute events overnight, case discussed with the RN, during my visit patient is sitting comfortably in the chair, hemodynamically stable, remains on 10 L via nasal cannula, saturating 98% , still admits cough productive of yellow phlegm. No chest pain. Getting IV antibiotics during my visit. HIV P24 antigen, nonreactive. Pending CD4 cell count. We will continue to follow Pulmonary and Infectious Disease input and recommendations. 05/30 the patient has been seen and examined, no acute events overnight, BP 114/66, during my visit she is on Ventimask, saturating 95%, FiO2 60%. Without the Ventimask the patient desaturates to the low 70s. Patient tolerating BiPAP during the night. Still admits cough productive of thick yellow phlegm, no chest pain. Results of CD4 cell count reviewed, discussed with the patient. We will continue broad-spectrum IV antibiotics. Continue to follow Pulmonary and Infectious Disease input and recommendations. 05/31 the patient has been seen and examined, upgraded to the ICU, during my visit she is sitting in the chair, BP 113/72, heart rate of 109, she is on Oxymizer, 30 L, FiO2 100%. She is alert oriented x3, still admits cough productive of thick yellow phlegm, no chest pain. Hemoglobin 12.9, hematocrit 36.6, WBC 14.6. ABG with pH 7.4, pCO2 40, PO2. Chest x-ray shows left lower l obe infiltrate consistent with pneumonia. She is getting IV antibiotics during my visit. Patient will remain in the ICU, continue to follow critical Care as well as infectious disease input and recommendations. 06/01 patient is seen and examined, sitting comfortable in chair, awake, following commands, remains on high-flow oxygen, FiO2 70%, 30 L, BP 117/67, heart rate of 78, respiratory rate of 30-36, saturating 100%, CBC with a hemoglobin 13.6, hematocrit 38.9, WBC 12.4. Platelet count of 341. Chest x-ray showing persistent left lung infiltrate, cardiac size and mediastinum unremarkable. The bony structures are within the normal limits. Patient getting IV antibiotics during my visit. Patient to continue with the high-dose steroids. Serology test positive for Pneumocystis sandra. Patient on Bactrim two tablets p.o. t.i.d.. Continue also doxycycline and cefepime IV. Continue to follow infectious disease input and recommendation. Continue to follow Pulmonary input and recommendations. 06/02 patient is seen and examined at bedside, currently in prone position, alert oriented x3. CPT started last night, she has started having more loose phlegm expectorated. BP 114/74, tachycardic 114, saturating 95%, high-flow nasal cannula, 30 L, FiO2 80%. CBC with a hemoglobin 16.9, hemoglobin 14 0, hematocrit 39.8, platelet count 347. Chest x-ray shows persistent left lung infiltrate. 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 HIV preliminary positive, HIV P 24 nonreactive, HIV-one RNA by PCR [id number]. Serology test for toxoplasma currently pending. Patient on IV antibiotics as well as high-dose steroids. Continue to follow infectious Disease and Pulmonary input and recommendations. 06/03 patient seen at bedside, no acute events overnight. She continues with respiratory distress, with increasing oxygen requirements. Critical Care has discussed a possible need for intubation if she does not improve. She has been started on steroids due to underlying PCP pneumonia. WBC improved from 16.9 down to 13.5, sodium stable at 132, same as yesterday, lactic acid downtrending from 4.1 down to 3.2, remainder of her labs are relatively unremarkable. 06/04 patient seen at bedside, no acute events overnight. She remains on high- flow nasal cannula, mildly tachycardic. WBC elevated at 13.3, sodium decreased from 132 down to 129, remainder of her labs are relatively unremarkable. Continue to wean supplemental oxygen. Further care per critical Care 06/05 patient seen at bedside, no acute events overnight. She remains on high- flow nasal cannula with BiPAP overnight and is still tachycardic. Heart rate ranging from 104 up to 113, WBC improved from 13.3 down to 11.1, sodium decreased from 120 down to 126, remainder of her labs are relatively unremarkable. We will continue to wean oxygen as able. REVIEW OF SYSTEMS 12 point review of systems negative unless noted in HPI PHYSICAL EXAM GENERAL APPEARANCE: The patient is awake, alert, and oriented, in no acute cardiopulmonary distress. NEUROLOGICAL: Cranial nerves II-XII grossly intact. Motor is 5/5 in bilateral upper and lower extremities proximal to distal. No sensory deficits. HEENT: Face is symmetric. Pupils are equal and reactive. Extraocular movements are intact. NECK: Supple. No JVD. No thyromegaly. No submental, submandibular, pre- /postauricular, occipital or supraclavicular lymphadenopathy. CHEST: Normal chest expansion. No Telemetry. LUNGS: Absence of any rales, rhonchi or any wheezing. CARDIOVASCULAR: Regular. S1 and S2 normal. No appreciable rubs, murmurs or gallops. ABDOMEN: Soft, nontender, and nondistended. There is no rebound, voluntary guarding, or rigidity. : Deferred. No Souza. EXTREMITIES: Non-edematous and not cyanotic. No clubbing. Good capillary refill. SKIN: No skin breakdown. Vital Signs (last 8hr) Date Time Temp Pulse Resp B/P (MAP) Pulse Ox O2 Delivery O2 Flow Rate FiO2 06/05/24 14:00 113 33 116/75 94 N/C High Flow System 30.0 80 06/05/24 13:00 112 25 129/82 87 N/C High Flow System 30.0 80 06/05/24 12:00 96 Hi-Flow N/C+ 30 80 06/05/24 12:00 97.9 106 29 114/64 96 N/C High Flow System 30.0 80 06/05/24 11:35 112 24 06/05/24 11:00 104 25 124/79 98 N/C High Flow System 30.0 70 06/05/24 10:00 107 25 106/53 100 N/C High Flow System 30.0 70 06/05/24 09:00 115 33 132/76 99 N/C High Flow System 30.0 70 06/05/24 08:00 98.4 118 35 95 N/C High Flow System 30.0 70 06/05/24 08:00 95 Hi-Flow N/C+ 30 80 LABS: Laboratory: Test 06/05/24 13:13 06/05/24 03:50 06/04/24 03:57 Range/Units Sodium Level 126 L 136-145 mmol/L Potassium Level 4.9 3.5-5.1 mmol/L Chloride Level 92 L 101-111 mmol/L Carbon Dioxide Level 26 21-32 mmol/L Blood Urea Nitrogen 21 H 7-18 mg/dL Creatinine 0.6 0.5-1.0 mg/dL Glomerular Filtration Rate Calc 109 >90 mL/min Random Glucose 170 H 70-105 mg/dL Total Calcium 9.1 8.5-10.1 mg/dL White Blood Count 11.1 H 4.8-10.8 K/uL Red Blood Count 3.91 L 4.00-5.50 MIL/uL Hemoglobin 12.7 12.0-16.0 g/dL Hematocrit 36.1 36-48 % Mean Corpuscular Volume 92.3 79-99 fL Mean Corpuscular Hemoglobin 32.5 27.0-33.0 pg Mean Corpuscular Hemoglobin Concent 35.2 32.0-36.0 g/dL Red Cell Distribution Width 11.4 11.0-15.5 % Platelet Count 292 130-400 K/uL Mean Platelet Volume 9.9 7.5-10.5 fL Immature Granulocyte % (Auto) 0.6 0-1 % Neutrophils (%) (Auto) 94.2 H 40.0-77.0 % Lymphocytes (%) (Auto) 2.6 L 21.0-51.0 % Monocytes (%) (Auto) 2.6 L 3.0-13.0 % Eosinophils (%) (Auto) 0.0 0.0-8.0 % Basophils (%) (Auto) 0.0 0.0-5.0 % Neutrophils # (Auto) 10.5 H 1.8-7.7 K/uL Lymphocytes # (Auto) 0.3 L 1.0-4.8 K/uL Monocytes # (Auto) 0.3 0.1-1.0 K/uL Eosinophils # (Auto) 0.00 0.00-0.70 K/uL Basophils # (Auto) 0.00 0.00-0.20 K/uL Absolute Immature Granulocyte (auto 0.07 0-1 K/uL Nucleated Red Blood Cells 0.0 0.0-0.19 % Total Bilirubin 0.3 # 0.2-1.0 mg/dL Aspartate Amino Transf (AST/SGOT) 31 10-37 U/L Alanine Aminotransferase (ALT/SGPT) 75 # 12-78 U/L Alkaline Phosphatase 112 50-136 U/L Total Protein 6.9 6.0-8.3 g/dL Albumin 2.6 L 3.5-5.0 g/dL Current Medications Medications (Trade) Dose Ordered Sig/Julita Route PRN Reason Start Time Stop Time Status Last Admin Dose Admin Acetaminophen (TYLenol 650MG ELIXIR) 650 mg Q6H PRN PO MILD PAIN (1-3) 06/04/24 08:30 07/04/24 08:29 06/05/24 10:38 650 MG Acetaminophen (TYLenol 650MG SUPPOSITORY) 650 mg Q6H PRN RC MILD PAIN (1-3) 05/23/24 20:30 06/22/24 20:29 Acetylcysteine (MUComyst 20% 4ML) 400mg = 2ml [id number] IH 06/02/24 00:00 07/02/24 00:00 06/05/24 11:35 200 MG Albuterol (DUOneb) 1 udvial [id number] IH 05/24/24 00:00 06/23/24 00:00 06/05/24 11:35 1 UDVIAL Azithromycin 250 ml @ 250 mls/hr Q24H IVPB 05/24/24 17:00 05/24/24 14:41 DC Azithromycin 250 ml @ 250 mls/hr Q24H STAT IVPB 05/23/24 17:17 05/24/24 14:41 DC 05/23/24 17:45 250 MLS/HR Cefepime HCl (MAXipime 2 gm vial) 2 gm Q12H IVPB 05/24/24 15:00 06/03/24 14:59 DC 06/03/24 03:18 2 GM Ceftriaxone Sodium (ROCEphine 1G INJ) 1 gm Q24H IVPB 05/24/24 17:30 05/24/24 14:41 DC Clotrimazole (Mycelex) 10 mg TID MM 06/04/24 21:00 07/04/24 20:59 06/05/24 14:56 10 MG Doxycycline Hyclate 250 ml @ 125 mls/hr Q12H IV 05/24/24 16:30 06/03/24 16:29 DC 06/03/24 04:23 125 MLS/HR Enoxaparin Sodium (Lovenox) 40 mg Q24H SQ 05/23/24 21:00 06/22/24 20:59 06/04/24 20:56 40 MG Famotidine (Pepcid 20mg Vial) 20 mg DAILY IV 05/24/24 09:00 06/23/24 08:59 06/05/24 10:25 20 MG Fluconazole (DiFLUCan 100 mg TAB) 200 mg DAILY PO 06/05/24 09:00 07/05/24 08:59 06/05/24 10:26 200 MG Fluconazole/ Sodium Chloride 100 ml @ 100 mls/hr DAILY IV 05/26/24 09:00 05/27/24 15:57 DC 05/27/24 09:07 100 MLS/HR Furosemide (LASix 20MG VIAL) 20 mg DAILY IV 05/31/24 09:00 06/30/24 08:59 Hold 06/03/24 08:38 20 MG Guaifenesin/ Dextromethorphan (RobiTUSSin DM 200/20MG 10ML) 10 ml Q4H PRN PO COUGH 05/23/24 20:30 06/22/24 20:29 06/05/24 10:40 10 ML Lactated Ringer's (Lactated Ringers 1000ml) 500 ml ONCE IV 06/02/24 20:00 06/02/24 19:54 DC Levofloxacin/ Dextrose 100 ml @ 100 mls/hr Q24H IV 05/24/24 15:00 05/24/24 16:16 DC Magnesium Sulfate 50 ml @ 0 mls/hr PROTOCOL PRN IV hypomagnesemia 05/28/24 08:00 06/27/24 07:59 Methylprednisolone Sodium Succinate (Solu-medROL 40MG) 20 mg Q12H IVP 06/05/24 07:00 07/05/24 06:59 06/05/24 06:18 20 MG Methylprednisolone Sodium Succinate (Solu-medROL 40MG) 40 mg Q12H IVP 05/28/24 18:00 05/29/24 16:45 DC 05/29/24 05:32 40 MG Methylprednisolone Sodium Succinate (Solu-medROL 40MG) 40 mg Q6H IVP 05/29/24 16:30 06/04/24 16:44 DC 06/04/24 11:13 40 MG Methylprednisolone Sodium Succinate (Solu-medROL 40MG) 40 mg Q6H IVP 06/04/24 18:00 06/05/24 00:24 DC 06/04/24 23:48 40 MG Methylprednisolone Sodium Succinate (Solu-medROL 40MG) 40 mg Q8H IVP 05/24/24 01:00 05/25/24 21:51 DC 05/25/24 17:28 40 MG Methylprednisolone Sodium Succinate (Solu-medROL 40MG) 60 mg Q6H IVP 05/25/24 22:00 05/28/24 02:25 DC 05/27/24 23:55 60 MG Methylprednisolone Sodium Succinate (Solu-medROL 40MG) 60 mg Q6H IVP 05/28/24 06:00 05/28/24 08:27 DC 05/28/24 06:47 60 MG Metronidazole/ Sodium Chloride (flaGYL) 500 mg Q8H IV 05/25/24 22:00 05/25/24 21:56 DC Ondansetron HCl (zoFRAN 4MG INJ) 4 mg Q6H PRN IV NAUSEA/VOMITING 05/23/24 20:30 06/22/24 20:29 Potassium Chloride 100 ml @ 100 mls/hr AD PRN IV POTASSIUM PROTOCOL 05/28/24 08:00 06/27/24 07:59 Potassium Chloride (K-Dur/Klor-Con 20meq) 20 meq AD PRN PO POTASSIUM PROTOCOL 05/28/24 08:00 06/27/24 07:59 Potassium Chloride (KCl 10% Elixir 20meq/15ml) 20 meq AD PRN PO POTASSIUM PROTOCOL 05/28/24 08:00 06/27/24 07:59 Sodium Chloride 500 ml @ 500 mls/hr Q1H IV 06/02/24 20:00 06/02/24 20:59 DC 06/02/24 21:34 500 MLS/HR Trimethoprim/ Sulfamethoxazole (BactRIM DS) 1 tab BID PO 05/26/24 21:00 05/29/24 16:18 DC 05/29/24 08:07 1 TAB Trimethoprim/ Sulfamethoxazole (BactRIM DS) 2 tab TID PO 05/29/24 16:30 06/05/24 20:59 06/05/24 14:55 2 TAB DIAGNOSTICS / RADIOLOGY: [ ] ASSESSMENT: Acute hypoxemic respiratory failure, POA Bilateral lower lobe bacterial pneumonia + MRSA POA, +Azra Suspected PCP PNA based on CT findings vs viral/Atypical PNA . POA HIV positive (preliminary report, confirmatory test nonreactive) POA Normocytic anemia, not POA Neutrophilia, POA Hyperglycemia, POA Obesity BMI of 32.3 Former smoker Acute cystitis, POA Fatty liver, POA Moderate hypoalbuminemia POA Previous COVID-19 infection PLAN: Continue ICU Continue the patient on BiPAP alternating with high-flow oxygen Continue the patient on high-dose steroids Continue Bactrim Continue doxycycline Continue lasix 20mg q24h Continue broad-spectrum antibiotic with doxycycline, and cefepime IV Continue to follow Pulmonary input recommendation Continue to follow infectious disease input and recommendation Follow serology test for toxoplasma gone the Follow chest x-ray Continue bronchodilators per respiratory therapist Replace electrolytes IV per protocol A.m. labs GI and DVT prophylaxis. Further orders to follow based on the above results Infectious disease consulted, appreciate recommendations Disposition: Remains admitted to the ICU, pending improvement in clinical condition. Total ICU time spent greater than 30 minutes. HEATHER RICE MD Jun 05, 2024 15:18
--- NOTE | 2024-06-05 15:47 | NUR ---
[facility] Department communication Received call from Maia with [facility]. Phone number [phone]. Information forwarded to patient to return call, as requested by Maia.
[2024-06-06] VITALS (28 sets, daily range): BP systolic 97–148; BP diastolic 41–82; PULSE 92–132; RESP 22–109; TEMP 98.6–100.1; O2SAT 95–100
[2024-06-06 04:17] LABS: BASOPHILS # (AUTO) 0.01 K/uL (0.00-0.20); BASOPHILS % (AUTO) 0.1 % (0.0-5.0); EOSINOPHILS # (AUTO) 0.02 K/uL (0.00-0.70); EOSINOPHILS % (AUTO) 0.2 % (0.0-8.0); HEMATOCRIT 35.8 % (36-48); IMMATURE GRANULOCYTE ABSOLUTE 0.05 K/uL (0-1); LYMPHOCYTES # (AUTO) 0.4 K/uL (1.0-4.8); LYMPHOCYTES % (AUTO) 3.8 % (21.0-51.0); MEAN CORPUSCULAR HEMOGLOBIN 32.6 pg (27.0-33.0); MEAN CORPUSCULAR HGB CONC 35.2 g/dL (32.0-36.0); MEAN CORPUSCULAR VOLUME 92.5 fL (79-99); MONOCYTES # (AUTO) 0.3 K/uL (0.1-1.0); MONOCYTES % (AUTO) 2.7 % (3.0-13.0); NEUTROPHILS # (AUTO) 9.9 K/uL (1.8-7.7); NEUTROPHILS % (AUTO) 92.7 % (40.0-77.0); PLATELET COUNT (AUTO) 263 K/uL (130-400); RED BLOOD CELL COUNT(AUTO) 3.87 MIL/uL (4.00-5.50); RED CELL DISTRIBUTION WIDTH 11.5 % (11.0-15.5); WHITE BLOOD COUNT (AUTO) 10.6 K/uL (4.8-10.8)
[2024-06-06 04:38] LABS: CREATININE 0.5 mg/dL (0.5-1.0); POTASSIUM 4.6 mmol/L (3.5-5.1)
[2024-06-06] MEDS: sulfaMETHOX-TMP DS 800/160 TAB PO SCH (10:04)
--- NOTE | 2024-06-06 11:19 | PN ---
[facility] PROGRESS NOTE Date Patient Seen: Jun 06, 2024 Time of Visit: 11:17 Supervising Physician: Dr. Bacon Primary Care Physician: Stu Foss MD Outpatient Specialists: [ ] Inpatient Consults: Pulmonology PROBLEM LIST: Severe ARDS Severe Sepsis Acute hypoxemic respiratory failure, POA requiring high Flow with 80% Bilateral lower lobe bacterial pneumonia + MRSA POA, +Azra Confirmed PCP PNA per Ag (serology), POA New HIV/AIDS positive POA Normocytic anemia, not POA Neutrophilia, POA Hyperglycemia, POA Obesity BMI of 32.3 Former smoker Fatty liver, POA Moderate hypoalbuminemia POA Previous COVID-19 infection INTERVAL HISTORY: 05/25/2024: At the time of my evaluation, the patient was lying in bed. She is currently on a non-rebreather mask. She reports feeling slightly better today. No laboratory data for review today. No new complaint. 05/28-patient is awake alert and oriented x3 currently receiving nebulizer christopher atment. She has been tolerating BiPAP overnight and currently on 10 L via Oxymizer which is less than 2 days ago which was 15 liters/minute saturating 96%. Patient has been afebrile and hemodynamically stable. Patient reports good urine output and bowel movements x2 yesterday. On laboratory white count is normal neutrophils the same as yesterday 89.8. Chemistry kidneys are doing good creatinine 0.5 GFR 114 glucose 150 mg/dL we will order hemoglobin A1c for tomorrow on chest x-ray. We will continue to follow ID recommendation. 05/29/24-patient is awake alert and oriented x3. She is sitting up on recliner chair with high FiO2 requirements 10 L via Oxymizer. We will increase Solu- Medrol to 40 mg IV q.6 hours and continue with doxycycline cefepime and in creased Bactrim to full-dose two tablets p.o. TID. Patient's denies chills, chest pain palpitations. However she does report continues shortness for breath and gets winded easily with a few steps to the restroom. Patient to continue BiPAP at night and p.r.n.. Chest x-ray worsening left lower lobe pneumonia. 05/30/24- patient is awake alert and oriented x3 sitting up in recliner chair. Patient is easily winded with conversation currently on non-rebreather at 100% FiO2. His hypoxemia is worsening with the a pH of 7.45 pCO2 of 38 PO2 of 68.7 and a bicarb 26. We will have patient transferred to ICU and we will oxygen in the following order: with high-flow if high flow not enough will start high flow + NRB and if not enough then switch to bipap. She is high risk for decompensation although patient reports she does not feel any increased shortness of breath she is easily winded and tachycardic with ambulating short distance to the restroom. On 2D echo patient has not LVEF of greater than 55% with mild concentric left ventricular hypertrophy left ventricular diastolic function is normal. 05/31/24- Pt is awake alert and oriented x 3 she reamins in the icu due to high risk for resp decompensation. She is hemodynamically stable blood pressure 105/50 O2 sat of 95% with high-flow on 30 L with a FiO2 of 90% respiratory rate is 28 heart rate of 100 and afebrile. Patient gets easily winded when holding a conversation. Encouraged to lay down prone. She continues with high dose steroids Solu-Medrol 40 q.6 hours. Urine output 2.9 L in last 24 hours, WBCs are 14.6 H&H is 12.9/36.6 with a platelet count of 304 K. on chemistry sodium is 134 chloride is 98 BUN of 21 creatinine of 0.5 and GFR of 114 glucose of 151 mg/dL LDH is 483 albumin 2.6. On serology Pneumocystis sandra antigen +. Clinical findings and laboratory findings consistent with HIV/AIDS , ID is on the case and we will follow his recommendations. Per patient she has talked to her partner about her results, I educated her that is very important for her s exual partners to be notified and so they can get checked for HIV. Pt verbalized understanding. On chest XR left lower lobe infiltrates consistent with pneumonia. 06/01/24-patient sitting up in chair sleeping but was easily arousable to voice. Awake alert and oriented x3,. Currently on high-flow O2 with a FiO2 of 80%. No major overnight events per RN. she is hemodynamically stable and afebrile. Urine output is good 2.9 L in the last 24 hours. WBCs are 12.4 trended down from yesterday neutrophils are 92.4. On chemistry sodium 134 with a potassium of 5.4 chloride of 96 BUN of 22 creatinine of 0.6 and GFR of 109 mg/dL ALT 86 albumin 2.5. Patient continues on doxycycline, cefepime, and Bactrim DS two tablets 3 times a day. We will continue follow ID recommendations 06/02/24-patient is awake alert and oriented x3 sitting up in recliner chair she has been proned this morning and tolerated well saturating 100% on high flow of with 80% FiO2. Now sitting up and saturating 92%. She reports that she is now able to expectorate some sputum. Patient has a temperature 99.9 she is sinus tachy in the monitor 115 beats per minute, respiratory rate of 28 and hemodynamically stable. Pancultured. Antibiotics per ID. Urine output is 1 L in the last 24 hours with a balance of -1.5L WBCs today are 16.9 neutrophils. We will order 500mls bolus of LR if no improvement we will give another bolus. Chemistry sodium was 132 chloride 96 BUN of 26, potassium is 4.8 BUN of 26 creatinine 0.6 GFR of 109 mg/dL albumin 2.6. we will order lactic. Per Dr Garcia recommends Vancomycin, this was communicated with ID. 04/03/25-patient with no major overnight events as per RN she is a little tachycardic in the 113 beats per minute, saturating 96% with FiO2 of 80% on high-flow nasal cannula with 30 L. Patient is high risk for intubation and I informed her of this encouraged her to have some Advance directive prior to requiring emergency intubation. She has accepted social work coordinator consult for advance directive and agreed to let her kids know about her condition and discuss w/ them her wishes and theirs before signing any advance directives. T- max overnight 99.7 with a T low of 98.1. She is hemodynamically stable. She denies feeling any worsening shortness of breath. Patient denies any nausea vomiting or diarrhea. Urine output 2.5 L in the last 24 hours with a-610 mL balance. WBCs trending down 13.5 today H&H stable 12.8/36.7 neutrophils are 91.3. Chemistries sodium 132 chloride of 96 carbon dioxide 26 BUN 23 creatinine of 0.5 with a GFR of 114 random glucose 143 mg/dL lactic acid trended down to 3.0 ABG with a pH of 7.44 pCO2 of 35 PO2 decrease to 58 PF Ratio 72.5, we will continue to encourage proning and add non-rebreather on top of high-flow nasal cannula. 06/04/2024: At the time of my evaluation, the patient was sitting up in bed. She remains on a non-rebreather mask over a high-flow nasal cannula. Oxygen saturation is optimal arranging between 93 to 98%. No febrile events. Laboratory data showed a improving WBC count down to 13.3. Chemistry panel showed a low-sodium count of one going to nine with a potassium of 4.2, chloride is 93, CO2 of 97, BUN is 28, creatinine of 0.6 and a GFR of 119. No new microbiology data for review. Chest x-ray today showed bilateral pulmonary infiltrates that persists. The patient continues on antibiotic therapy guided by the Infectious Disease specialist. No new complaint. 06/05/2024: At the time of my evaluation, the patient is lying in bed. The staff nurse reports no acute events overnight. The patient remains on high-flow nasal cannula 30% and backup non-rebreather mask 80%. Vital signs today which stable blood pressure, very labile heart rate, respiratory rate and SpO2. On labs today, the patient had a improved WBC count down to 11.1. Chemistry panel showed a downward trend of sodium to 128. Potassium 4.4, chloride 94 and CO2 of 27. Renal parameters remain stable. Microbiology data showed no new studies. No new imaging for review today. Patient has no new complaint. 06/06/2024: At the time of my evaluation, the patient is lying in bed. The patient remains on high-flow nasal cannula 30% and backup non-rebreather mask 80%. Vital signs today which stable blood pressure, tachypnea and tachycardia. Spo2 ranging in the upper 90's. On labs today, the patient had a improved WBC. Chemistry panel showed a odium to 129. Renal parameters remain stable. Microb iology data showed no new studies. No new imaging for review today. Patient has no new complaint. REVIEW OF SYSTEMS: General: No malaise or fever. Neurological: No fainting episodes or seizures. HEENT: No nasal congestion or nasal secretion. Respiratory: Yes for cough, yellow phlegm, shortness for breath on minimal exertion. Cardiac: No chest pain or palpitations. Gastrointestinal: No vomiting or diarrhea. Genitourinary: No dysuria hematuria. Skin: No rashes or lesions. Hematological: No bruises or bleeding. Musculoskeletal: No joint pains or arthralgias. Psychiatric: No depression or panic attacks. PHYSICAL EXAM: GENERAL: alert, weak, awake oriented x 3 HEENT: EOMI, Sclera non icteric, moist mucosa NECK: Supple, no JVD, trachea midline LUNGS: Fine crackles to bilateral lower posterior bases lung sounds. No wheezes HEART: Regular rate and rhythm. Normal S1 and S2, without murmurs ABD: Abdomen soft, nontender. Bowel sounds present EXT: No clubbing cyanosis or edema NEURO: Alert and oriented to person, follows commands Vital Signs (last 8hr) Date Time Temp Pulse Resp B/P (MAP) Pulse Ox O2 Delivery O2 Flow Rate FiO2 06/06/24 08:00 98.8 122 23 136/82 99 N/C High Flow System 30.0 80 06/06/24 08:00 99 Hi-Flow N/C+ 30 80 06/06/24 07:24 102 22 HFNC Heated System N/Can 30.0 80 06/06/24 07:14 96 22 06/06/24 07:00 100 23 108/77 99 N/C High Flow System 30.0 80 06/06/24 06:00 102 22 136/57 100 N/C High Flow System 30.0 80 06/06/24 04:13 100 Hi-Flow N/C+ 30 80 06/06/24 04:00 99.0 92 25 103/58 100 N/C High Flow System 30.0 80 LABS: Hematology Labs: Test 06/06/24 03:52 Range/Units White Blood Count 10.6 4.8-10.8 K/uL Red Blood Count 3.87 L 4.00-5.50 MIL/uL Hemoglobin 12.6 12.0-16.0 g/dL Hematocrit 35.8 L 36-48 % Mean Corpuscular Volume 92.5 79-99 fL Mean Corpuscular Hemoglobin 32.6 27.0-33.0 pg Mean Corpuscular Hemoglobin Concent 35.2 32.0-36.0 g/dL Red Cell Distribution Width 11.5 11.0-15.5 % Platelet Count 263 130-400 K/uL Mean Platelet Volume 9.9 7.5-10.5 fL Immature Granulocyte % (Auto) 0.5 0-1 % Neutrophils (%) (Auto) 92.7 H 40.0-77.0 % Lymphocytes (%) (Auto) 3.8 L 21.0-51.0 % Monocytes (%) (Auto) 2.7 L 3.0-13.0 % Eosinophils (%) (Auto) 0.2 0.0-8.0 % Basophils (%) (Auto) 0.1 0.0-5.0 % Neutrophils # (Auto) 9.9 H 1.8-7.7 K/uL Lymphocytes # (Auto) 0.4 L 1.0-4.8 K/uL Monocytes # (Auto) 0.3 0.1-1.0 K/uL Eosinophils # (Auto) 0.02 0.00-0.70 K/uL Basophils # (Auto) 0.01 0.00-0.20 K/uL Absolute Immature Granulocyte (auto 0.05 0-1 K/uL Nucleated Red Blood Cells 0.0 0.0-0.19 % Chemistry Labs: Test 06/06/24 03:52 Range/Units Sodium Level 129 L 136-145 mmol/L Potassium Level 4.6 3.5-5.1 mmol/L Chloride Level 94 L 101-111 mmol/L Carbon Dioxide Level 27 21-32 mmol/L Blood Urea Nitrogen 21 H 7-18 mg/dL Creatinine 0.5 0.5-1.0 mg/dL Glomerular Filtration Rate Calc 114 >90 mL/min Random Glucose 160 H 70-105 mg/dL Total Calcium 8.5 8.5-10.1 mg/dL DIAGNOSTICS / RADIOLOGY RESULTS: [ ] PLAN Follow ID recommendations Encouraged to prone herself Maintain O2 sats above 92% Monitor temperature trend Continue high-dose steroids Duo nebs q.6 hours Abx Per ID trend Lactic acid. Due to severe sob will not do 30ml/kg bolus at one time if pt not hypotensive to avoid worsening resp status Instead will try pulsating boluses of 500 mL of NS as tolerated. Follow respiratory status closely as she is high risk for decompensation. social work coordinator to discuss advance directives. Monitor resp status closely high risk for intubation, Pt will likely not come off mechnical ventilation easily and higher risk of HAP due to debilitated immune system so will try other measures of oxygenation prior to intubation for now. We will place NRB on top of already High Flow NC with fio2 of 80%. 06/04/2024: For now, going to continue current management for the patient. We are going to continue with oxygen supplementation as ordered and monitor the saturation. The patient will continue on antibiotic therapy as guided by the Infectious Disease specialist. Currently, the plan is to continue with Bactrim double strength b.i.d. was started on fluconazole 200 mg p.o. daily and cefepime, doxy was discontinued. We will discuss with the Infectious Disease specialist regarding the benefit of Zithromax for MAC. Considering the patient has been on extended course of steroid therapy, I am going to decrease the dose of the Solu-Medrol to 20 q.12h. Appreciate the input of the true specialist. We will monitor the patient's progress and response to management. We will repeat surveillance labs in the morning. We will continue to provide general supportive care, GI and DVT prophylaxis. Further orders per attending MD and hospital course. 06/05/2024: For now, going to continue current management for the patient. She will continue on oxygen supplementation as ordered and we will adjust as necessary. Steroid therapy was decreased overnight. She is currently on Solu- Medrol 20 mg IV q.12. She will continue on antibiotics per the guidance of Infectious Disease specialist, currently receiving Bactrim DS and fluconazole. I appreciate the input of treating specialist. We will monitor the patient's progress and response to management. Continue to provide general supportive care, GI and DVT prophylaxis. Further orders per attending MD and hospital course. 06/06/2024: For now, going to continue current management for the patient. We are going to continue antibiotic therapy currently on Bactrim DS two tabs t.i.d. and fluconazole. The steroid dose was decreased yesterday to Solu-Medrol 20 mg IV q.12. We will monitor the patient's progress and response to management. We will appreciate the input of the treating specialist. We will continue to provide general supportive care, GI and DVT prophylaxis. Further orders per attending MD and hospital course. NEURO: Minimize central acting medications as possible. Fall Precautions. Well lighted room through the day and minimize interruptions through the night to prevent acute delirium. PULMONARY: Supplemental 02 as needed Titrate Fio2 to keep Spo2 > or = 90% DuoNebs and CPT as needed IS hourly while awake for pulmonary hygiene Out of bed to chair as tolerated CARDIOVASCULAR: Follow hemodynamics. Titrate vasopressor to keep MAP >65 or systolic blood pressure >95mmHg telemetry Drips none LINES: PIV GI & NUTRITION: Continue nutritional support Aspirations precautions Prokinetic agents and laxatives as needed KIDNEYS & ELECTROLYTES: Strict monitoring of intake and output Daily weights Avoid nephrotoxic agents Monitor electrolytes and replace as needed Goal urine output of 30mL/hr or 0.5mL/kg/hr ENDOCRINE: Maintain blood glucose between 100-180 at all times. Insulin sliding scale for blood glucose management INFECTIOUS DISEASE: Trend temperature. Clarke-culture if febrile. Micro: [ ] Sputum culture from 05/23/24 positive for MRSA, Betty albicans Pneumocystis carinii antigen positive Panculture: 06/02/24 Blood cultures Urine cultures Respiratory culture Antibiotics: Bactrim DS Fluconazole HEMATOLOGY & COAGULATION: Monitor H&H. Keep Hgb > 7 Transfuse 1 unit of PRBC for Hgb < 7 Transfuse 1 pack of platelets of platelets < 20, 000 Watch for any signs and symptoms of bleeding SKIN: Pressure ulcer prevention per facility protocol Rehab: PT/OT Prophylaxis: GI: pepcid DVT: Lovenox Code Status: Full Resuscitation Disposition: ICU Other: Total patient care time exceeds 45 minutes excluding all procedures. Case was discussed and seen with my supervising physician. The above plan was formulated and agreed upon. DAYRON RUBIN NP Jun 06, 2024 11:19
--- NOTE | 2024-06-06 11:32 | PN ---
INFECTIOUS DISEASE PROGRESS NOTE Date of Service: Jun 06, 2024 SUBJECTIVE: This is a 49-year-old female patient who was admitted with chief complaint of shortness of breaths. A chest x-ray done on admission showed left lower lung pneumoniae. A CT chest showed bilateral pulmonary infiltrates but no evidence of PE. 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 Patient was seen and examined at bedside in ICU room 208. Patient is awake, alert and oriented x 3. Patient with oral candidiasis. We will continue on fluconazole and Mycelex troches. Patient is also to continue on Bactrim DS p.o. t.i.d. Patient reported productive cough. Slight improvement on the dyspneic episodes. Continues on Solu-Medrol IV and high-flow oxygen. No fever, temperature is 98.8 and the WBC trended down to 10.6. We will continue to follow patient's care. PHYSICAL EXAM EYES: Anicteric. Pupils equal and reactive. HENT: No oral thrush seen, moist Oral mucosa. Oral candidiasis. NECK: Supple, no JVD or thyromegaly. LUNGS: Lung sounds diminished. Dyspnea. On high-flow Oxygen support. CARDIOVASCULAR: S1, S2 regular. No murmur heard. ABDOMEN: Soft, non tender, bowel sounds present, no organomegaly. CENTRAL NERVOUS SYSTEM: Awake, alert, oriented x 3. SKIN: No rashes, no swelling. LYMPHATICS: No peripheral lymphadenopathy. MUSCULOSKELETAL: No joint swelling, erythema or tenderness. EXTREMITIES: No cyanosis or clubbing. BACK: No deformity, no pressure ulcer. GENITOURINARY: No dysuria or hematuria. Vital Sign (Last 12 Hours) 06/05/24 06/06/24 06/06/24 06/06/24 23:51 00:00 00:00 00:25 Temp 99.1 Pulse 97 96 Resp 26 24 B/P (MAP) 99/41 Pulse Ox 100 100 O2 Delivery Bi-PAP+ BIPAP FiO2 70 70 06/06/24 06/06/24 06/06/24 06/06/24 00:26 01:00 02:00 03:00 Pulse 96 98 98 92 Resp 26 22 24 24 B/P (MAP) 108/59 102/60 111/66 Pulse Ox 100 100 100 O2 Delivery BIPAP BIPAP BIPAP FiO2 70 70 70 70 106/06/24 06/06/24 06/06/24 04:00 04:13 06:00 07:00 Temp 99.0 Pulse 92 102 100 Resp B/P (MAP) 103/58 136/57 108/77 Pulse Ox 100 100 100 99 O2 Delivery N/C High Flow System Hi-Flow N/C+ N/C High Flow System N/C High Flow System O2 Flow Rate 30.0 30 30.0 30.0 FiO2 80 80 80 80 06/06/24 06/06/24 06/06/24 06/06/24 07:14 07:24 08:00 08:00 Temp 98.8 Pulse 96 102 122 Resp B/P (MAP) 136/82 Pulse Ox 99 99 O2 Delivery HFNC Heated System N/Can Hi-Flow N/C+ N/C High Flow System O2 Flow Rate 30.0 30 30.0 FiO2 80 80 80 Intake & Output (last 24hrs) 06/05/24 06/05/24 06/06/24 15:00 23:00 07:00 Intake Total 480 ml 720 ml 240 ml Balance 480 ml 720 ml 240 ml LABS: Laboratory: Test 06/06/24 03:52 Range/Units White Blood Count 10.6 4.8-10.8 K/uL Red Blood Count 3.87 L 4.00-5.50 MIL/uL Hemoglobin 12.6 12.0-16.0 g/dL Hematocrit 35.8 L 36-48 % Mean Corpuscular Volume 92.5 79-99 fL Mean Corpuscular Hemoglobin 32.6 27.0-33.0 pg Mean Corpuscular Hemoglobin Concent 35.2 32.0-36.0 g/dL Red Cell Distribution Width 11.5 11.0-15.5 % Platelet Count 263 130-400 K/uL Mean Platelet Volume 9.9 7.5-10.5 fL Immature Granulocyte % (Auto) 0.5 0-1 % Neutrophils (%) (Auto) 92.7 H 40.0-77.0 % Lymphocytes (%) (Auto) 3.8 L 21.0-51.0 % Monocytes (%) (Auto) 2.7 L 3.0-13.0 % Eosinophils (%) (Auto) 0.2 0.0-8.0 % Basophils (%) (Auto) 0.1 0.0-5.0 % Neutrophils # (Auto) 9.9 H 1.8-7.7 K/uL Lymphocytes # (Auto) 0.4 L 1.0-4.8 K/uL Monocytes # (Auto) 0.3 0.1-1.0 K/uL Eosinophils # (Auto) 0.02 0.00-0.70 K/uL Basophils # (Auto) 0.01 0.00-0.20 K/uL Absolute Immature Granulocyte (auto 0.05 0-1 K/uL Nucleated Red Blood Cells 0.0 0.0-0.19 % Sodium Level 129 L 136-145 mmol/L Potassium Level 4.6 3.5-5.1 mmol/L Chloride Level 94 L 101-111 mmol/L Carbon Dioxide Level 27 21-32 mmol/L Blood Urea Nitrogen 21 H 7-18 mg/dL Creatinine 0.5 0.5-1.0 mg/dL Glomerular Filtration Rate Calc 114 >90 mL/min Random Glucose 160 H 70-105 mg/dL Total Calcium 8.5 8.5-10.1 mg/dL ASSESSMENT: Acute hypoxic respiratory failure, requiring high-flow oxygen support. 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 Positive HIV test. Leukocytosis. Obesity. Oral candidiasis. PLAN: Continue Bactrim DS b.i.d p.o.. Continue fluconazole p.o. Continue Mycelex. Continue GI prophylaxis. Continue oxygen support, currently on high-flow oxygen. Continue bronchodilators. Continue DVT prophylaxis. This case was reviewed and discussed with my supervising physician and the above assessment and plan was formulated and agreed upon. ATTESTATION BY PHYSICIAN I have seen and examined the patient. I reviewed the documentation, medical decision making, and treatment plan as noted by the mid-level provider above. I agree with the findings and plan of care. [place] MD, [facility] Jun 06, 2024 11:32
--- NOTE | 2024-06-06 11:57 | HMCIMG ---
CHEST 1VW HISTORY: Pneumonia COMPARISON: 06/04/2024 FINDINGS: A frontal projection of the chest was obtained. Left lung pulmonary infiltrates are seen worse from previous study. The heart is borderline enlarged. Poor inspiratory effort is seen. IMPRESSION: 1. Left lung pulmonary infiltrates worse from previous study.
--- NOTE | 2024-06-06 14:30 | NUR ---
SS f/u Sw visited with pt who states Jarred from [facility] did speak to her. Pt to reach out to Jarred once she is discharged.
--- NOTE | 2024-06-06 15:38 | PN ---
[facility] PROGRESS NOTE Date of Service: Jun 06, 2024 Time of Service: 15:35 SUBJECTIVE: [ ] Ms. Abdullahi is a 49-year-old female that was seen and examined today on 05/23/2024. Patient is a good historian and personal health. Patient's son Dagoberto Salcido is at bedside. Patient states that she came to the emergency department with a chief complaint of shortness of breath. Onset was two weeks ago. Location is to lungs. Duration is on and off. Character is described as "easily running out of air." Initially shortness and breath was only aggravated with climbing one or two flights of stairs but symptoms have progressively worsened and patient becomes short of breath even standing or walking short distances. There was no alleviating factors however previously symptoms were being controlled with daily morning albuterol nebulizer treatments. Patient denies any associated chest pain or dizziness. Patient reports an episode of COVID in December 2023. emergency department CBC unremarkable, chemistry unremarkable, urinalysis unremarkable, influenza screen negative, COVID negative, blood gas shows PO2 less than 45. Chest x-ray shows left lower lung pneumonia and minimal right lung base atelectasis. Upon arrival to the emergency department patient was placed on a BiPAP due to respiratory distress. 05/24/2024-patient was seen and examined at the bedside, still on BiPAP. Patient is able to speak, and says she feels much better than before. Patient says after COVID in December she developed severe bronchitis and she was on Solu-Medrol and albuterol, which did not help her much and later she had high fevers and shortness of breath which is when she came to the ED.Vitals afebrile pulse 76, RR 38 tachypneic , blood pressure 115/68, pulse oxygen 99 on BiPAP flow of 60. On ABG pH 7.47, pCO2 29, PO2 109.4, oxygen saturation 98.3. [id number] potassium 4.1 BUN15 creatinine 0.5 GFR 114. We will closely monitor the patient. Paunch Trimmer consult noted waiting on the recommendation 05/25/24 patient was seen and examined and case discussed with RN and family by the bedside. She was breathing better today. She has been on BiPAP all night but now he was on 100% non-rebreather with further efforts to continue to wean the oxygen requirements down. 05/27/24 patient is seen and examined at bedside, acute events overnight, case discussed with the RN, BP 131/64, afebrile, saturating 96-97% via Ventimask, FiO2 40%. The patient admits cough productive of clear phlegm. Serology tests reviewed, HIV preliminary positive, discussed with the patient. 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 We will continue the patient on IV antibiotics, continue fluconazole, continue to follow Pulmonary and ID input and recommendations. After provided in the preliminary results of HIV test, she denies any suicidal or homicidal ideations. 05/28 patient has been seen and examined, no acute events overnight, case discussed with the RN, during my visit patient is sitting comfortably in the chair, hemodynamically stable, off Ventimask, currently on 10 L via nasal cannula, saturating 98%, tolerated BiPAP overnight. she feels better, less shortness a breath, still admits cough productive of yellow phlegm. No chest pain. Getting IV antibiotics during my visit. HIV P24 antigen, nonreactive. We will continue to follow Pulmonary and Infectious Disease input and recommendations. 05/29 patient has been seen and examined, no acute events overnight, case discussed with the RN, during my visit patient is sitting comfortably in the chair, hemodynamically stable, remains on 10 L via nasal cannula, saturating 98% , still admits cough productive of yellow phlegm. No chest pain. Getting IV antibiotics during my visit. HIV P24 antigen, nonreactive. Pending CD4 cell count. We will continue to follow Pulmonary and Infectious Disease input and recommendations. 05/30 the patient has been seen and examined, no acute events overnight, BP 114/66, during my visit she is on Ventimask, saturating 95%, FiO2 60%. Without the Ventimask the patient desaturates to the low 70s. Patient tolerating BiPAP during the night. Still admits cough productive of thick yellow phlegm, no chest pain. Results of CD4 cell count reviewed, discussed with the patient. We will continue broad-spectrum IV antibiotics. Continue to follow Pulmonary and Infectious Disease input and recommendations. 05/31 the patient has been seen and examined, upgraded to the ICU, during my visit she is sitting in the chair, BP 113/72, heart rate of 109, she is on Oxymizer, 30 L, FiO2 100%. She is alert oriented x3, still admits cough productive of thick yellow phlegm, no chest pain. Hemoglobin 12.9, hematocrit 36.6, WBC 14.6. ABG with pH 7.4, pCO2 40, PO2. Chest x-ray shows left lower l obe infiltrate consistent with pneumonia. She is getting IV antibiotics during my visit. Patient will remain in the ICU, continue to follow critical Care as well as infectious disease input and recommendations. 06/01 patient is seen and examined, sitting comfortable in chair, awake, following commands, remains on high-flow oxygen, FiO2 70%, 30 L, BP 117/67, heart rate of 78, respiratory rate of 30-36, saturating 100%, CBC with a hemoglobin 13.6, hematocrit 38.9, WBC 12.4. Platelet count of 341. Chest x-ray showing persistent left lung infiltrate, cardiac size and mediastinum unremarkable. The bony structures are within the normal limits. Patient getting IV antibiotics during my visit. Patient to continue with the high-dose steroids. Serology test positive for Pneumocystis sandra. Patient on Bactrim two tablets p.o. t.i.d.. Continue also doxycycline and cefepime IV. Continue to follow infectious disease input and recommendation. Continue to follow Pulmonary input and recommendations. 06/02 patient is seen and examined at bedside, currently in prone position, alert oriented x3. CPT started last night, she has started having more loose phlegm expectorated. BP 114/74, tachycardic 114, saturating 95%, high-flow nasal cannula, 30 L, FiO2 80%. CBC with a hemoglobin 16.9, hemoglobin 14 0, hematocrit 39.8, platelet count 347. Chest x-ray shows persistent left lung infiltrate. 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 HIV preliminary positive, HIV P 24 nonreactive, HIV-one RNA by PCR [id number]. Serology test for toxoplasma currently pending. Patient on IV antibiotics as well as high-dose steroids. Continue to follow infectious Disease and Pulmonary input and recommendations. 06/03 patient seen at bedside, no acute events overnight. She continues with respiratory distress, with increasing oxygen requirements. Critical Care has discussed a possible need for intubation if she does not improve. She has been started on steroids due to underlying PCP pneumonia. WBC improved from 16.9 down to 13.5, sodium stable at 132, same as yesterday, lactic acid downtrending from 4.1 down to 3.2, remainder of her labs are relatively unremarkable. 06/04 patient seen at bedside, no acute events overnight. She remains on high- flow nasal cannula, mildly tachycardic. WBC elevated at 13.3, sodium decreased from 132 down to 129, remainder of her labs are relatively unremarkable. Continue to wean supplemental oxygen. Further care per critical Care 06/05 patient seen at bedside, no acute events overnight. She remains on high- flow nasal cannula with BiPAP overnight and is still tachycardic. Heart rate ranging from 104 up to 113, WBC improved from 13.3 down to 11.1, sodium decreased from 120 down to 126, remainder of her labs are relatively unremarkable. We will continue to wean oxygen as able. 06/06 Patient seen at bedside, no acute events overnight. She remains on high- flow nasal cannula with BiPAP overnight and is still tachycardic. Heart rate ranging from 104 up to 122, WBC improved from 11.1 down to 10.6, sodium improved from 126 up to 129, remainder of her labs are relatively unremarkable. We will continue to wean oxygen as able. REVIEW OF SYSTEMS 12 point review of systems negative unless noted in HPI PHYSICAL EXAM GENERAL APPEARANCE: The patient is awake, alert, and oriented, in no acute cardiopulmonary distress. NEUROLOGICAL: Cranial nerves II-XII grossly intact. Motor is 5/5 in bilateral upper and lower extremities proximal to distal. No sensory deficits. HEENT: Face is symmetric. Pupils are equal and reactive. Extraocular movements are intact. NECK: Supple. No JVD. No thyromegaly. No submental, submandibular, pre- /postauricular, occipital or supraclavicular lymphadenopathy. CHEST: Normal chest expansion. No Telemetry. LUNGS: Absence of any rales, rhonchi or any wheezing. CARDIOVASCULAR: Regular. S1 and S2 normal. No appreciable rubs, murmurs or gallops. ABDOMEN: Soft, nontender, and nondistended. There is no rebound, voluntary guarding, or rigidity. : Deferred. No Souza. EXTREMITIES: Non-edematous and not cyanotic. No clubbing. Good capillary refill. SKIN: No skin breakdown. Vital Signs (last 8hr) Date Time Temp Pulse Resp B/P (MAP) Pulse Ox O2 Delivery O2 Flow Rate FiO2 06/06/24 12:20 100.4 06/06/24 11:44 114 24 06/06/24 11:00 122 22 120/68 100 N/C High Flow System 30.0 80 06/06/24 10:00 129 23 136/68 94 N/C High Flow System 30.0 80 06/06/24 09:00 132 23 148/79 95 N/C High Flow System 30.0 80 06/06/24 08:00 98.8 122 23 136/82 99 N/C High Flow System 30.0 80 06/06/24 08:00 99 Hi-Flow N/C+ 30 80 LABS: Laboratory: Test 06/06/24 03:52 Range/Units White Blood Count 10.6 4.8-10.8 K/uL Red Blood Count 3.87 L 4.00-5.50 MIL/uL Hemoglobin 12.6 12.0-16.0 g/dL Hematocrit 35.8 L 36-48 % Mean Corpuscular Volume 92.5 79-99 fL Mean Corpuscular Hemoglobin 32.6 27.0-33.0 pg Mean Corpuscular Hemoglobin Concent 35.2 32.0-36.0 g/dL Red Cell Distribution Width 11.5 11.0-15.5 % Platelet Count 263 130-400 K/uL Mean Platelet Volume 9.9 7.5-10.5 fL Immature Granulocyte % (Auto) 0.5 0-1 % Neutrophils (%) (Auto) 92.7 H 40.0-77.0 % Lymphocytes (%) (Auto) 3.8 L 21.0-51.0 % Monocytes (%) (Auto) 2.7 L 3.0-13.0 % Eosinophils (%) (Auto) 0.2 0.0-8.0 % Basophils (%) (Auto) 0.1 0.0-5.0 % Neutrophils # (Auto) 9.9 H 1.8-7.7 K/uL Lymphocytes # (Auto) 0.4 L 1.0-4.8 K/uL Monocytes # (Auto) 0.3 0.1-1.0 K/uL Eosinophils # (Auto) 0.02 0.00-0.70 K/uL Basophils # (Auto) 0.01 0.00-0.20 K/uL Absolute Immature Granulocyte (auto 0.05 0-1 K/uL Nucleated Red Blood Cells 0.0 0.0-0.19 % Sodium Level 129 L 136-145 mmol/L Potassium Level 4.6 3.5-5.1 mmol/L Chloride Level 94 L 101-111 mmol/L Carbon Dioxide Level 27 21-32 mmol/L Blood Urea Nitrogen 21 H 7-18 mg/dL Creatinine 0.5 0.5-1.0 mg/dL Glomerular Filtration Rate Calc 114 >90 mL/min Random Glucose 160 H 70-105 mg/dL Total Calcium 8.5 8.5-10.1 mg/dL Vitamin B12 Level 463 193-986 pg/mL Current Medications Medications (Trade) Dose Ordered Sig/Julita Route PRN Reason Start Time Stop Time Status Last Admin Dose Admin Acetaminophen (TYLenol 650MG ELIXIR) 650 mg Q6H PRN PO MILD PAIN (1-3) 06/04/24 08:30 07/04/24 08:29 06/06/24 12:20 650 MG Acetaminophen (TYLenol 650MG SUPPOSITORY) 650 mg Q6H PRN RC MILD PAIN (1-3) 05/23/24 20:30 06/22/24 20:29 Acetylcysteine (MUComyst 20% 4ML) 400mg = 2ml [id number] 06/02/24 00:00 06/05/24 15:52 DC 06/05/24 11:35 200 MG Albuterol (DUOneb) 1 udvial [id number] 05/24/24 00:00 06/23/24 00:00 06/06/24 11:43 1 UDVIAL Azithromycin 250 ml @ 250 mls/hr Q24H IVPB 05/24/24 17:00 05/24/24 14:41 DC Azithromycin 250 ml @ 250 mls/hr Q24H STAT IVPB 05/23/24 17:17 05/24/24 14:41 DC 05/23/24 17:45 250 MLS/HR Cefepime HCl (MAXipime 2 gm vial) 2 gm Q12H IVPB 05/24/24 15:00 06/03/24 14:59 DC 06/03/24 03:18 2 GM Ceftriaxone Sodium (ROCEphine 1G INJ) 1 gm Q24H IVPB 05/24/24 17:30 05/24/24 14:41 DC Clotrimazole (Mycelex) 10 mg TID MM 06/04/24 21:00 07/04/24 20:59 06/06/24 14:37 10 MG Doxycycline Hyclate 250 ml @ 125 mls/hr Q12H IV 05/24/24 16:30 06/03/24 16:29 DC 06/03/24 04:23 125 MLS/HR Enoxaparin Sodium (Lovenox) 40 mg Q24H SQ 05/23/24 21:00 06/22/24 20:59 06/05/24 20:41 40 MG Famotidine (Pepcid 20mg Vial) 20 mg DAILY IV 05/24/24 09:00 06/23/24 08:59 06/06/24 09:14 20 MG Fluconazole (DiFLUCan 100 mg TAB) 200 mg DAILY PO 06/05/24 09:00 07/05/24 08:59 06/06/24 09:14 200 MG Fluconazole/ Sodium Chloride 100 ml @ 100 mls/hr DAILY IV 05/26/24 09:00 05/27/24 15:57 DC 05/27/24 09:07 100 MLS/HR Furosemide (LASix 20MG VIAL) 20 mg DAILY IV 05/31/24 09:00 06/30/24 08:59 Hold 06/03/24 08:38 20 MG Guaifenesin/ Dextromethorphan (RobiTUSSin DM 200/20MG 10ML) 10 ml Q4H PRN PO COUGH 05/23/24 20:30 06/22/24 20:29 06/06/24 12:20 10 ML Lactated Ringer's (Lactated Ringers 1000ml) 500 ml ONCE IV 06/02/24 20:00 06/02/24 19:54 DC Levofloxacin/ Dextrose 100 ml @ 100 mls/hr Q24H IV 05/24/24 15:00 05/24/24 16:16 DC Magnesium Sulfate 50 ml @ 0 mls/hr PROTOCOL PRN IV hypomagnesemia 05/28/24 08:00 06/27/24 07:59 Methylprednisolone Sodium Succinate (Solu-medROL 40MG) 20 mg Q12H IVP 06/05/24 07:00 07/05/24 06:59 06/06/24 06:08 20 MG Methylprednisolone Sodium Succinate (Solu-medROL 40MG) 40 mg Q12H IVP 05/28/24 18:00 05/29/24 16:45 DC 05/29/24 05:32 40 MG Methylprednisolone Sodium Succinate (Solu-medROL 40MG) 40 mg Q6H IVP 05/29/24 16:30 06/04/24 16:44 DC 06/04/24 11:13 40 MG Methylprednisolone Sodium Succinate (Solu-medROL 40MG) 40 mg Q6H IVP 06/04/24 18:00 06/05/24 00:24 DC 06/04/24 23:48 40 MG Methylprednisolone Sodium Succinate (Solu-medROL 40MG) 40 mg Q8H IVP 05/24/24 01:00 05/25/24 21:51 DC 05/25/24 17:28 40 MG Methylprednisolone Sodium Succinate (Solu-medROL 40MG) 60 mg Q6H IVP 05/25/24 22:00 05/28/24 02:25 DC 05/27/24 23:55 60 MG Methylprednisolone Sodium Succinate (Solu-medROL 40MG) 60 mg Q6H IVP 05/28/24 06:00 05/28/24 08:27 DC 05/28/24 06:47 60 MG Metronidazole/ Sodium Chloride (flaGYL) 500 mg Q8H IV 05/25/24 22:00 05/25/24 21:56 DC Ondansetron HCl (zoFRAN 4MG INJ) 4 mg Q6H PRN IV NAUSEA/VOMITING 05/23/24 20:30 06/22/24 20:29 Potassium Chloride 100 ml @ 100 mls/hr AD PRN IV POTASSIUM PROTOCOL 05/28/24 08:00 06/27/24 07:59 Potassium Chloride (K-Dur/Klor-Con 20meq) 20 meq AD PRN PO POTASSIUM PROTOCOL 05/28/24 08:00 06/27/24 07:59 Potassium Chloride (KCl 10% Elixir 20meq/15ml) 20 meq AD PRN PO POTASSIUM PROTOCOL 05/28/24 08:00 06/27/24 07:59 Sodium Chloride 500 ml @ 500 mls/hr Q1H IV 06/02/24 20:00 06/02/24 20:59 DC 06/02/24 21:34 500 MLS/HR Trimethoprim/ Sulfamethoxazole (BactRIM DS) 1 tab BID PO 05/26/24 21:00 05/29/24 16:18 DC 05/29/24 08:07 1 TAB Trimethoprim/ Sulfamethoxazole (BactRIM DS) 2 tab TID PO 05/29/24 16:30 06/05/24 20:59 DC 06/05/24 14:55 2 TAB Trimethoprim/ Sulfamethoxazole (BactRIM DS) 2 tab TID PO 06/06/24 09:30 09/11/24 09:29 06/06/24 14:37 2 TAB DIAGNOSTICS / RADIOLOGY: [ ] ASSESSMENT: Acute hypoxemic respiratory failure, POA Bilateral lower lobe bacterial pneumonia + MRSA POA, +Azra Suspected PCP PNA based on CT findings vs viral/Atypical PNA . POA HIV positive (preliminary report, confirmatory test nonreactive) POA Normocytic anemia, not POA Neutrophilia, POA Hyperglycemia, POA Obesity BMI of 32.3 Former smoker Acute cystitis, POA Fatty liver, POA Moderate hypoalbuminemia POA Previous COVID-19 infection PLAN: Continue ICU Continue the patient on BiPAP alternating with high-flow oxygen Continue the patient on high-dose steroids Continue Bactrim Continue doxycycline Continue lasix 20mg q24h Continue broad-spectrum antibiotic with doxycycline, and cefepime IV Continue to follow Pulmonary input recommendation Continue to follow infectious disease input and recommendation Follow serology test for toxoplasma gone the Follow chest x-ray Continue bronchodilators per respiratory therapist Replace electrolytes IV per protocol A.m. labs GI and DVT prophylaxis. Further orders to follow based on the above results Infectious disease consulted, appreciate recommendations Disposition: Remains admitted to the ICU, pending improvement in clinical condition. Total ICU time spent greater than 30 minutes. HEATHER RICE MD Jun 06, 2024 15:38
--- NOTE | 2024-06-06 16:01 | NUR ---
Nutrition consult per LOS > 7 Reviewed labs, notes, and medications. Pt with SOB, on N.C w/ bipap, on HH, hyponatremia 129, elevated bun 21, Cr WNL, hyperglycemia 160, A1C 6.2 per chart review. Wt via bed scale, 100%PO intake, last BM 06/05/24, no edema, well nourished, no wounds, -610 ml balance 06/03/24 per nursing. Recommendations: -Provide neutropenic diet + HH diet -Monitor PO intake -Encourage PO intake as able -Monitor BM -If no BM >3 days consider stool softener -Monitor electrolytes -Replenish electrolytes per protocol -Monitor wts -Reweigh as able -Order CD4 count -Order Vit D, vit b-12 labs to rule out deficiencies -Provide b-complex QD -Recommend Pt to follow up with PCP -Monitor goals of care RD to follow + available for consult per protocol Addendum: 06/06/24 at [address] Amended: Links added.
[2024-06-07] VITALS (57 sets, daily range): BP systolic 79–129; BP diastolic 47–85; PULSE 95–130; RESP 17–107; TEMP 98.2–100.2; O2SAT 93–100
[2024-06-07 03:47] LABS: BASOPHILS # (AUTO) 0.01 K/uL (0.00-0.20); BASOPHILS % (AUTO) 0.1 % (0.0-5.0); EOSINOPHILS # (AUTO) 0.01 K/uL (0.00-0.70); EOSINOPHILS % (AUTO) 0.1 % (0.0-8.0); IMMATURE GRANULOCYTE ABSOLUTE 0.06 K/uL (0-1); LYMPHOCYTES # (AUTO) 0.3 K/uL (1.0-4.8); MEAN CORPUSCULAR HEMOGLOBIN 32.8 pg (27.0-33.0); MEAN CORPUSCULAR HGB CONC 35.4 g/dL (32.0-36.0); MEAN CORPUSCULAR VOLUME 92.7 fL (79-99); MONOCYTES # (AUTO) 0.2 K/uL (0.1-1.0); MONOCYTES % (AUTO) 1.6 % (3.0-13.0); NEUTROPHILS # (AUTO) 9.7 K/uL (1.8-7.7); NEUTROPHILS % (AUTO) 94.6 % (40.0-77.0); PLATELET COUNT (AUTO) 237 K/uL (130-400); RED BLOOD CELL COUNT(AUTO) 3.99 MIL/uL (4.00-5.50); RED CELL DISTRIBUTION WIDTH 11.4 % (11.0-15.5); WHITE BLOOD COUNT (AUTO) 10.2 K/uL (4.8-10.8)
[2024-06-07 04:00] LABS: CREATININE 0.5 mg/dL (0.5-1.0); POTASSIUM 4.8 mmol/L (3.5-5.1)
--- NOTE | 2024-06-07 12:34 | NUR ---
DIRECTIVES SW met with pt who had a lot of questions regarding how to complete Directives and had spefic directions she wanted noted for family and doctors. Meghna educated on Dr Mccullough and asked if I could discuss with him, for guidance on how to complete form to make sure pt's wishes were honored. Dr Gino Mccullough made courtesy visit and spoke to pt. Pt explained to Dr Barber that she wanted her son to be her MPOA, if needed, she wanted to be intubated, but if after 10 days, she was not improving, she wanted son to remove her from support. Dr Mccullough discussed her current condition and advised that speak to her son and be very clear about her wishes, also write her wishes down on paper for son to keep, but advised her not to complete directive requesting to be kept alive using available life sustaining treatments. He also discussed code status with pt and advised her to remain full code at this time if her wish was to be resuscitated. Pt voiced understanding.
[2024-06-07] MEDS: 0.9%NACL 1000ML 1,000 ML IV SCH (13:31)
[2024-06-07] MEDS: SODIUM CHLORIDE 1,000 MG TAB PO ONE (13:31)
--- NOTE | 2024-06-07 13:41 | PN ---
[facility] PROGRESS NOTE Date Patient Seen: Jun 07, 2024 Time of Visit: 13:34 Supervising Physician: Dr. Evans Primary Care Physician: Stu Foss MD Outpatient Specialists: [ ] Inpatient Consults: Pulmonology PROBLEM LIST: Severe ARDS Severe Sepsis Acute hypoxemic respiratory failure, POA requiring high Flow with 80% Bilateral lower lobe bacterial pneumonia + MRSA POA, +Azra Confirmed PCP PNA per Ag (serology), POA New HIV/AIDS positive POA Normocytic anemia, not POA Neutrophilia, POA Hyperglycemia, POA Obesity BMI of 32.3 Former smoker Fatty liver, POA Moderate hypoalbuminemia POA Previous COVID-19 infection INTERVAL HISTORY: 05/25/2024: At the time of my evaluation, the patient was lying in bed. She is currently on a non-rebreather mask. She reports feeling slightly better today. No laboratory data for review today. No new complaint. 05/28-patient is awake alert and oriented x3 currently receiving nebulizer treatment. She has been tolerating BiPAP overnight and currently on 10 L via Oxymizer which is less than 2 days ago which was 15 liters/minute saturating 96%. Patient has been afebrile and hemodynamically stable. Patient reports good urine output and bowel movements x2 yesterday. On laboratory white count is normal neutrophils the same as yesterday 89.8. Chemistry kidneys are doing good creatinine 0.5 GFR 114 glucose 150 mg/dL we will order hemoglobin A1c for tomorrow on chest x-ray. We will continue to follow ID recommendation. 05/29/24-patient is awake alert and oriented x3. She is sitting up on recliner chair with high FiO2 requirements 10 L via Oxymizer. We will increase Solu- Medrol to 40 mg IV q.6 hours and continue with doxycycline cefepime and increas ed Bactrim to full-dose two tablets p.o. TID. Patient's denies chills, chest pain palpitations. However she does report continues shortness for breath and gets winded easily with a few steps to the restroom. Patient to continue BiPAP at night and p.r.n.. Chest x-ray worsening left lower lobe pneumonia. 05/30/24- patient is awake alert and oriented x3 sitting up in recliner chair. Patient is easily winded with conversation currently on non-rebreather at 100% FiO2. His hypoxemia is worsening with the a pH of 7.45 pCO2 of 38 PO2 of 68.7 and a bicarb 26. We will have patient transferred to ICU and we will oxygen in the following order: with high-flow if high flow not enough will start high flow + NRB and if not enough then switch to bipap. She is high risk for decompensation although patient reports she does not feel any increased shortness of breath she is easily winded and tachycardic with ambulating short distance to the restroom. On 2D echo patient has not LVEF of greater than 55% with mild concentric left ventricular hypertrophy left ventricular diastolic function is normal. 05/31/24- Pt is awake alert and oriented x 3 she reamins in the icu due to high risk for resp decompensation. She is hemodynamically stable blood pressure 105/50 O2 sat of 95% with high-flow on 30 L with a FiO2 of 90% respiratory rate is 28 heart rate of 100 and afebrile. Patient gets easily winded when holding a conversation. Encouraged to lay down prone. She continues with high dose steroids Solu-Medrol 40 q.6 hours. Urine output 2.9 L in last 24 hours, WBCs are 14.6 H&H is 12.9/36.6 with a platelet count of 304 K. on chemistry sodium is 134 chloride is 98 BUN of 21 creatinine of 0.5 and GFR of 114 glucose of 151 mg/dL LDH is 483 albumin 2.6. On serology Pneumocystis sandra antigen +. Clinical findings and laboratory findings consistent with HIV/AIDS , ID is on the case and we will follow his recommendations. Per patient she has talked to her partner about her results, I educated her that is very important for her sexual partners to be notified and so they can get checked for HIV. Pt verbalized understanding. On chest XR left lower lobe infiltrates consistent with pneumonia. 06/01/24-patient sitting up in chair sleeping but was easily arousable to voice. Awake alert and oriented x3,. Currently on high-flow O2 with a FiO2 of 80%. No major overnight events per RN. she is hemodynamically stable and afebrile. Urine output is good 2.9 L in the last 24 hours. WBCs are 12.4 trended down from yesterday neutrophils are 92.4. On chemistry sodium 134 with a potassium of 5.4 chloride of 96 BUN of 22 creatinine of 0.6 and GFR of 109 mg/dL ALT 86 albumin 2.5. Patient continues on doxycycline, cefepime, and Bactrim DS two tablets 3 times a day. We will continue follow ID recommendations 06/02/24-patient is awake alert and oriented x3 sitting up in recliner chair she has been proned this morning and tolerated well saturating 100% on high flow of with 80% FiO2. Now sitting up and saturating 92%. She reports that she is now able to expectorate some sputum. Patient has a temperature 99.9 she is sinus tachy in the monitor 115 beats per minute, respiratory rate of 28 and hemodynamically stable. Pancultured. Antibiotics per ID. Urine output is 1 L in the last 24 hours with a balance of -1.5L WBCs today are 16.9 neutrophils. We will order 500mls bolus of LR if no improvement we will give another bolus. Chemistry sodium was 132 chloride 96 BUN of 26, potassium is 4.8 BUN of 26 creatinine 0.6 GFR of 109 mg/dL albumin 2.6. we will order lactic. Per Dr Garcia recommends Vancomycin, this was communicated with ID. 04/03/25-patient with no major overnight events as per RN she is a little tachycardic in the 113 beats per minute, saturating 96% with FiO2 of 80% on high-flow nasal cannula with 30 L. Patient is high risk for intubation and I informed her of this encouraged her to have some Advance directive prior to requiring emergency intubation. She has accepted professor of social work consult for advance directive and agreed to let her kids know about her condition and discuss w/ them her wishes and theirs before signing any advance directives. T- max overnight 99.7 with a T low of 98.1. She is hemodynamically stable. She denies feeling any worsening shortness of breath. Patient denies any nausea vomiting or diarrhea. Urine output 2.5 L in the last 24 hours with a-610 mL balance. WBCs trending down 13.5 today H&H stable 12.8/36.7 neutrophils are 91.3. Chemistries sodium 132 chloride of 96 carbon dioxide 26 BUN 23 creatinine of 0.5 with a GFR of 114 random glucose 143 mg/dL lactic acid trended down to 3.0 ABG with a pH of 7.44 pCO2 of 35 PO2 decrease to 58 PF Ratio 72.5, we will continue to encourage proning and add non-rebreather on top of high-flow nasal cannula. 06/04/2024: At the time of my evaluation, the patient was sitting up in bed. She remains on a non-rebreather mask over a high-flow nasal cannula. Oxygen saturation is optimal arranging between 93 to 98%. No febrile events. Laboratory data showed a improving WBC count down to 13.3. Chemistry panel showed a low-sodium count of one going to nine with a potassium of 4.2, chloride is 93, CO2 of 97, BUN is 28, creatinine of 0.6 and a GFR of 119. No new microbiology data for review. Chest x-ray today showed bilateral pulmonary infi ltrates that persists. The patient continues on antibiotic therapy guided by the Infectious Disease specialist. No new complaint. 06/05/2024: At the time of my evaluation, the patient is lying in bed. The staff nurse reports no acute events overnight. The patient remains on high-flow nasal cannula 30% and backup non-rebreather mask 80%. Vital signs today which stable blood pressure, very labile heart rate, respiratory rate and SpO2. On labs today, the patient had a improved WBC count down to 11.1. Chemistry panel showed a downward trend of sodium to 128. Potassium 4.4, chloride 94 and CO2 of 27. Renal parameters remain stable. Microbiology data showed no new studies. No new imaging for review today. Patient has no new complaint. 06/06/2024: At the time of my evaluation, the patient is lying in bed. The patient remains on high-flow nasal cannula 30% and backup non-rebreather mask 80%. Vital signs today which stable blood pressure, tachypnea and tachycardia. Spo2 ranging in the upper 90's. On labs today, the patient had a improved WBC. Chemistry panel showed a odium to 129. Renal parameters remain stable. Microbiology data showed no new studies. No new imaging for review today. Patient has no new complaint. 06/07/2024: At the time of my evaluation, the patient was lying in bed. The staff nurse reports no acute events overnight. The patient remains with high- flow nasal cannula and denies any shortness of breath. The vital signs today still showing tachypnea and tachycardia with blood pressure of 127/77 and SpO2 of 100%. Laboratory data of significance, showed a drop in sodium count of 123 and chloride of 90. Otherwise, the remaining laboratory parameters are unremarkable. There was no new microbiology data for review. No new chest imag ing. Medication list reviewed showed patient continues on Bactrim DS and fluconazole. She remains on Solu-Medrol and bronchodilator therapy with DuoNeb. No new complaint. REVIEW OF SYSTEMS: General: No malaise or fever. Neurological: No fainting episodes or seizures. HEENT: No nasal congestion or nasal secretion. Respiratory: Yes for cough, yellow phlegm, shortness for breath on minimal exertion. Cardiac: No chest pain or palpitations. Gastrointestinal: No vomiting or diarrhea. Genitourinary: No dysuria hematuria. Skin: No rashes or lesions. Hematological: No bruises or bleeding. Musculoskeletal: No joint pains or arthralgias. Psychiatric: No depression or panic attacks. PHYSICAL EXAM: GENERAL: alert, weak, awake oriented x 3 HEENT: EOMI, Sclera non icteric, moist mucosa NECK: Supple, no JVD, trachea midline LUNGS: Fine crackles to bilateral lower posterior bases lung sounds. No wheezes HEART: Regular rate and rhythm. Normal S1 and S2, without murmurs ABD: Abdomen soft, nontender. Bowel sounds present EXT: No clubbing cyanosis or edema NEURO: Alert and oriented to person, follows commands Vital Signs (last 8hr) Date Time Temp Pulse Resp B/P (MAP) Pulse Ox O2 Delivery O2 Flow Rate FiO2 06/07/24 12:38 119 33 06/07/24 12:37 119 29 HFNC Heated System N/Can 30.0 06/07/24 10:46 106 26 127/77 100 N/C High Flow System 30.0 06/07/24 10:16 121 26 125/79 98 N/C High Flow System 30.0 06/07/24 09:46 111 17 99/55 100 N/C High Flow System 30.0 06/07/24 09:16 111 21 79/47 100 N/C High Flow System 30.0 06/07/24 08:46 122 27 100/61 100 N/C High Flow System 30.0 06/07/24 08:16 98.4 120 29 114/80 98 N/C High Flow System 30.0 06/07/24 07:46 113 26 116/77 93 N/C High Flow System 30.0 70 06/07/24 07:16 109 25 117/78 96 BIPAP 70 06/07/24 07:10 115 29 HFNC Heated System N/Can 30.0 06/07/24 07:00 111 33 70 06/07/24 06:59 114 33 06/07/24 06:16 99 25 108/74 100 BIPAP 70 06/07/24 05:46 95 27 119/74 99 BIPAP 70 LABS: Hematology Labs: Test 06/07/24 03:36 Range/Units White Blood Count 10.2 4.8-10.8 K/uL Red Blood Count 3.99 L 4.00-5.50 MIL/uL Hemoglobin 13.1 12.0-16.0 g/dL Hematocrit 37.0 36-48 % Mean Corpuscular Volume 92.7 79-99 fL Mean Corpuscular Hemoglobin 32.8 27.0-33.0 pg Mean Corpuscular Hemoglobin Concent 35.4 32.0-36.0 g/dL Red Cell Distribution Width 11.4 11.0-15.5 % Platelet Count 237 130-400 K/uL Mean Platelet Volume 9.6 7.5-10.5 fL Immature Granulocyte % (Auto) 0.6 0-1 % Neutrophils (%) (Auto) 94.6 H 40.0-77.0 % Lymphocytes (%) (Auto) 3.0 L 21.0-51.0 % Monocytes (%) (Auto) 1.6 L 3.0-13.0 % Eosinophils (%) (Auto) 0.1 0.0-8.0 % Basophils (%) (Auto) 0.1 0.0-5.0 % Neutrophils # (Auto) 9.7 H 1.8-7.7 K/uL Lymphocytes # (Auto) 0.3 L 1.0-4.8 K/uL Monocytes # (Auto) 0.2 0.1-1.0 K/uL Eosinophils # (Auto) 0.01 0.00-0.70 K/uL Basophils # (Auto) 0.01 0.00-0.20 K/uL Absolute Immature Granulocyte (auto 0.06 0-1 K/uL Nucleated Red Blood Cells 0.0 0.0-0.19 % Chemistry Labs: Test 06/07/24 03:36 06/06/24 11:51 06/06/24 03:52 Range/Units Sodium Level 123 L 136-145 mmol/L Potassium Level 4.8 3.5-5.1 mmol/L Chloride Level 90 *L 101-111 mmol/L Carbon Dioxide Level 28 21-32 mmol/L Blood Urea Nitrogen 19 H 7-18 mg/dL Creatinine 0.5 0.5-1.0 mg/dL Glomerular Filtration Rate Calc 114 >90 mL/min Random Glucose 205 H 70-105 mg/dL Total Calcium 8.5 8.5-10.1 mg/dL Vitamin D 25-Hydroxy 9.1 30.0-100.0 ng/mL Vitamin B12 Level 463 193-986 pg/mL DIAGNOSTICS / RADIOLOGY RESULTS: [ ] PLAN Follow ID recommendations Encouraged to prone herself Maintain O2 sats above 92% Monitor temperature trend Continue high-dose steroids Duo nebs q.6 hours Abx Per ID trend Lactic acid. Due to severe sob will not do 30ml/kg bolus at one time if pt not hypotensive to avoid worsening resp status Instead will try pulsating boluses of 500 mL of NS as tolerated. Follow respiratory status closely as she is high risk for decompensation. professor of social work to discuss advance directives. Monitor resp status closely high risk for intubation, Pt will likely not come off mechnical ventilation easily and higher risk of HAP due to debilitated immune system so will try other measures of oxygenation prior to intubation for now. We will place NRB on top of already High Flow NC with fio2 of 80%. 06/04/2024: For now, going to continue current management for the patient. We are going to continue with oxygen supplementation as ordered and monitor the saturation. The patient will continue on antibiotic therapy as guided by the Infectious Disease specialist. Currently, the plan is to continue with Bactrim double strength b.i.d. was started on fluconazole 200 mg p.o. daily and cefepime, doxy was discontinued. We will discuss with the Infectious Disease specialist regarding the benefit of Zithromax for MAC. Considering the patient has been on extended course of steroid therapy, I am going to decrease the dose of the Solu-Medrol to 20 q.12h. Appreciate the input of the true specialist. We will monitor the patient's progress and response to management. We will repeat surveillance labs in the morning. We will continue to provide general supportive care, GI and DVT prophylaxis. Further orders per attending MD and hospital course. 06/05/2024: For now, going to continue current management for the patient. She will continue on oxygen supplementation as ordered and we will adjust as necessary. Steroid therapy was decreased overnight. She is currently on Solu- Medrol 20 mg IV q.12. She will continue on antibiotics per the guidance of Infectious Disease specialist, currently receiving Bactrim DS and fluconazole. I appreciate the input of treating specialist. We will monitor the patient's progress and response to management. Continue to provide general supportive care, GI and DVT prophylaxis. Further orders per attending MD and hospital course. 06/06/2024: For now, going to continue current management for the patient. We are going to continue antibiotic therapy currently on Bactrim DS two tabs t.i.d. and fluconazole. The steroid dose was decreased yesterday to Solu-Medrol 20 mg IV q.12. We will monitor the patient's progress and response to management. We will appreciate the input of the treating specialist. We will continue to provide general supportive care, GI and DVT prophylaxis. Further orders per attending MD and hospital course. 06/07/2024: For now, we are going to continue current management for the patient. Considering the drop in sodium count, I am going to put the patient on IV NS at 75 cc/hour. We will also start the patient on sodium chloride tabs 1 g p.o. b.i.d. before meals. We will administer one time dose now. I am going to request a TSH level, cortisol level a.m., uric acid and lipids with a.m. labs. We will continue to monitor the sodium count. The patient will continue antibiotic therapy as guided by the Infectious Disease specialist. We will repeat surveillance labs in the morning. I am going to request a repeat chest x-ray for the morning. We will continue to provide general supportive care, GI and DVT prophylaxis. Further orders per attending MD and hospital course. NEURO: Minimize central acting medications as possible. Fall Precautions. Well lighted room through the day and minimize interruptions through the night to prevent acute delirium. PULMONARY: Supplemental 02 as needed Titrate Fio2 to keep Spo2 > or = 90% DuoNebs and CPT as needed IS hourly while awake for pulmonary hygiene Out of bed to chair as tolerated CARDIOVASCULAR: Follow hemodynamics. Titrate vasopressor to keep MAP >65 or systolic blood pressure >95mmHg telemetry Drips none LINES: PIV GI & NUTRITION: Continue nutritional support Aspirations precautions Prokinetic agents and laxatives as needed KIDNEYS & ELECTROLYTES: Strict monitoring of intake and output Daily weights Avoid nephrotoxic agents Monitor electrolytes and replace as needed Goal urine output of 30mL/hr or 0.5mL/kg/hr ENDOCRINE: Maintain blood glucose between 100-180 at all times. Insulin sliding scale for blood glucose management INFECTIOUS DISEASE: Trend temperature. Clarke-culture if febrile. Micro: [ ] Sputum culture from 05/23/24 positive for MRSA, Betty albicans Pneumocystis carinii antigen positive Panculture: 06/02/24 Blood cultures Urine cultures Respiratory culture Antibiotics: Bactrim DS Fluconazole HEMATOLOGY & COAGULATION: Monitor H&H. Keep Hgb > 7 Transfuse 1 unit of PRBC for Hgb < 7 Transfuse 1 pack of platelets of platelets < 20, 000 Watch for any signs and symptoms of bleeding SKIN: Pressure ulcer prevention per facility protocol Rehab: PT/OT Prophylaxis: GI: pepcid DVT: Lovenox Code Status: Full Resuscitation Disposition: ICU Other: Total patient care time exceeds 45 minutes excluding all procedures. Case was discussed and seen with my supervising physician. The above plan was formulated and agreed upon. DAYRON RUBIN NP Jun 07, 2024 13:40
--- NOTE | 2024-06-07 14:26 | PN ---
[facility] PROGRESS NOTE Date of Service: Jun 07, 2024 Time of Service: 14:19 SUBJECTIVE: [ ] Ms. Abdullahi is a 49-year-old female that was seen and examined today on 05/23/2024. Patient is a good historian and personal health. Patient's son Dagoberto Salcido is at bedside. Patient states that she came to the emergency department with a chief complaint of shortness of breath. Onset was two weeks ago. Location is to lungs. Duration is on and off. Character is described as "easily running out of air." Initially shortness and breath was only aggravated with climbing one or two flights of stairs but symptoms have progressively worsened and patient becomes short of breath even standing or walking short distances. There was no alleviating factors however previously symptoms were being controlled with daily morning albuterol nebulizer treatments. Patient denies any associated chest pain or dizziness. Patient reports an episode of COVID in December 2023. emergency department CBC unremarkable, chemistry unremarkable, urinalysis unremarkable, influenza screen negative, COVID negative, blood gas shows PO2 less than 45. Chest x-ray shows left lower lung pneumonia and minimal right lung base atelectasis. Upon arrival to the emergency department patient was placed on a BiPAP due to respiratory distress. 05/24/2024-patient was seen and examined at the bedside, still on BiPAP. Patient is able to speak, and says she feels much better than before. Patient says after COVID in December she developed severe bronchitis and she was on Solu-Medrol and albuterol, which did not help her much and later she had high fevers and shortness of breath which is when she came to the ED.Vitals afebrile pulse 76, RR 38 tachypneic , blood pressure 115/68, pulse oxygen 99 on BiPAP flow of 60. On ABG pH 7.47, pCO2 29, PO2 109.4, oxygen saturation 98.3. [id number] potassium 4.1 BUN15 creatinine 0.5 GFR 114. We will closely monitor the patient. Manager Of [employer] consult noted waiting on the recommendation 05/25/24 patient was seen and examined and case discussed with RN and family by the bedside. She was breathing better today. She has been on BiPAP all night but now he was on 100% non-rebreather with further efforts to continue to wean the oxygen requirements down. 05/27/24 patient is seen and examined at bedside, acute events overnight, case discussed with the RN, BP 131/64, afebrile, saturating 96-97% via Ventimask, FiO2 40%. The patient admits cough productive of clear phlegm. Serology tests reviewed, HIV preliminary positive, discussed with the patient. 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 We will continue the patient on IV antibiotics, continue fluconazole, continue to follow Pulmonary and ID input and recommendations. After provided in the preliminary results of HIV test, she denies any suicidal or homicidal ideations. 05/28 patient has been seen and examined, no acute events overnight, case discussed with the RN, during my visit patient is sitting comfortably in the chair, hemodynamically stable, off Ventimask, currently on 10 L via nasal cannula, saturating 98%, tolerated BiPAP overnight. she feels better, less shortness a breath, still admits cough productive of yellow phlegm. No chest pain. Getting IV antibiotics during my visit. HIV P24 antigen, nonreactive. We will continue to follow Pulmonary and Infectious Disease input and recommendations. 05/29 patient has been seen and examined, no acute events overnight, case discussed with the RN, during my visit patient is sitting comfortably in the chair, hemodynamically stable, remains on 10 L via nasal cannula, saturating 98% , still admits cough productive of yellow phlegm. No chest pain. Getting IV antibiotics during my visit. HIV P24 antigen, nonreactive. Pending CD4 cell count. We will continue to follow Pulmonary and Infectious Disease input and recommendations. 05/30 the patient has been seen and examined, no acute events overnight, BP 114/66, during my visit she is on Ventimask, saturating 95%, FiO2 60%. Without the Ventimask the patient desaturates to the low 70s. Patient tolerating BiPAP during the night. Still admits cough productive of thick yellow phlegm, no chest pain. Results of CD4 cell count reviewed, discussed with the patient. We will continue broad-spectrum IV antibiotics. Continue to follow Pulmonary and Infectious Disease input and recommendations. 05/31 the patient has been seen and examined, upgraded to the ICU, during my visit she is sitting in the chair, BP 113/72, heart rate of 109, she is on Oxymizer, 30 L, FiO2 100%. She is alert oriented x3, still admits cough productive of thick yellow phlegm, no chest pain. Hemoglobin 12.9, hematocrit 36.6, WBC 14.6. ABG with pH 7.4, pCO2 40, PO2. Chest x-ray shows left lower l obe infiltrate consistent with pneumonia. She is getting IV antibiotics during my visit. Patient will remain in the ICU, continue to follow critical Care as well as infectious disease input and recommendations. 06/01 patient is seen and examined, sitting comfortable in chair, awake, following commands, remains on high-flow oxygen, FiO2 70%, 30 L, BP 117/67, heart rate of 78, respiratory rate of 30-36, saturating 100%, CBC with a hemoglobin 13.6, hematocrit 38.9, WBC 12.4. Platelet count of 341. Chest x-ray showing persistent left lung infiltrate, cardiac size and mediastinum unremarkable. The bony structures are within the normal limits. Patient getting IV antibiotics during my visit. Patient to continue with the high-dose steroids. Serology test positive for Pneumocystis sandra. Patient on Bactrim two tablets p.o. t.i.d.. Continue also doxycycline and cefepime IV. Continue to follow infectious disease input and recommendation. Continue to follow Pulmonary input and recommendations. 06/02 patient is seen and examined at bedside, currently in prone position, alert oriented x3. CPT started last night, she has started having more loose phlegm expectorated. BP 114/74, tachycardic 114, saturating 95%, high-flow nasal cannula, 30 L, FiO2 80%. CBC with a hemoglobin 16.9, hemoglobin 14 0, hematocrit 39.8, platelet count 347. Chest x-ray shows persistent left lung infiltrate. 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 HIV preliminary positive, HIV P 24 nonreactive, HIV-one RNA by PCR [id number]. Serology test for toxoplasma currently pending. Patient on IV antibiotics as well as high-dose steroids. Continue to follow infectious Disease and Pulmonary input and recommendations. 06/03 patient seen at bedside, no acute events overnight. She continues with respiratory distress, with increasing oxygen requirements. Critical Care has discussed a possible need for intubation if she does not improve. She has been started on steroids due to underlying PCP pneumonia. WBC improved from 16.9 down to 13.5, sodium stable at 132, same as yesterday, lactic acid downtrending from 4.1 down to 3.2, remainder of her labs are relatively unremarkable. 06/04 patient seen at bedside, no acute events overnight. She remains on high- flow nasal cannula, mildly tachycardic. WBC elevated at 13.3, sodium decreased from 132 down to 129, remainder of her labs are relatively unremarkable. Continue to wean supplemental oxygen. Further care per critical Care 06/05 patient seen at bedside, no acute events overnight. She remains on high- flow nasal cannula with BiPAP overnight and is still tachycardic. Heart rate ranging from 104 up to 113, WBC improved from 13.3 down to 11.1, sodium decreased from 120 down to 126, remainder of her labs are relatively unremarkable. We will continue to wean oxygen as able. 06/06 Patient seen at bedside, no acute events overnight. She remains on high- flow nasal cannula with BiPAP overnight and is still tachycardic. Heart rate ranging from 104 up to 122, WBC improved from 11.1 down to 10.6, sodium improved from 126 up to 129, remainder of her labs are relatively unremarkable. We will continue to wean oxygen as able. 06/07 patient seen at bedside, no acute events overnight. She is still on high- flow nasal cannula, RT advised to wean oxygen, currently saturating 100% on 30L. She is tachycardic, sodium decreased from 129 down to 123, likely secondary to Bactrim. Patient is asymptomatic, will continue with bactrim, if sodium continues to decrease consider a holiday from bactrim. REVIEW OF SYSTEMS 12 point review of systems negative unless noted in HPI PHYSICAL EXAM GENERAL APPEARANCE: The patient is awake, alert, and oriented, in no acute cardiopulmonary distress. NEUROLOGICAL: Cranial nerves II-XII grossly intact. Motor is 5/5 in bilateral upper and lower extremities proximal to distal. No sensory deficits. HEENT: Face is symmetric. Pupils are equal and reactive. Extraocular movements are intact. NECK: Supple. No JVD. No thyromegaly. No submental, submandibular, pre- /postauricular, occipital or supraclavicular lymphadenopathy. CHEST: Normal chest expansion. No Telemetry. LUNGS: Absence of any rales, rhonchi or any wheezing. CARDIOVASCULAR: Regular. S1 and S2 normal. No appreciable rubs, murmurs or gallops. ABDOMEN: Soft, nontender, and nondistended. There is no rebound, voluntary guarding, or rigidity. : Deferred. No Souza. EXTREMITIES: Non-edematous and not cyanotic. No clubbing. Good capillary refill. SKIN: No skin breakdown. Vital Signs (last 8hr) Date Time Temp Pulse Resp B/P (MAP) Pulse Ox O2 Delivery O2 Flow Rate FiO2 06/07/24 12:38 119 33 06/07/24 12:37 119 29 HFNC Heated System N/Can 30.0 70 06/07/24 10:46 106 26 127/77 100 N/C High Flow System 30.0 70 06/07/24 10:16 121 26 125/79 98 N/C High Flow System 30.0 70 06/07/24 09:46 111 17 99/55 100 N/C High Flow System 30.0 06/07/24 09:16 111 21 79/47 100 N/C High Flow System 30.0 06/07/24 08:46 122 27 100/61 100 N/C High Flow System 30.0 70 06/07/24 08:16 98.4 120 29 114/80 98 N/C High Flow System 30.0 70 06/07/24 07:46 113 26 116/77 93 N/C High Flow System 30.0 70 06/07/24 07:16 109 25 117/78 96 BIPAP 70 06/07/24 07:10 115 29 HFNC Heated System N/Can 30.0 70 06/07/24 07:00 111 33 70 06/07/24 06:59 114 33 LABS: Laboratory: Test 06/07/24 03:36 06/06/24 11:51 06/06/24 03:52 Range/Units White Blood Count 10.2 4.8-10.8 K/uL Red Blood Count 3.99 L 4.00-5.50 MIL/uL Hemoglobin 13.1 12.0-16.0 g/dL Hematocrit 37.0 36-48 % Mean Corpuscular Volume 92.7 79-99 fL Mean Corpuscular Hemoglobin 32.8 27.0-33.0 pg Mean Corpuscular Hemoglobin Concent 35.4 32.0-36.0 g/dL Red Cell Distribution Width 11.4 11.0-15.5 % Platelet Count 237 130-400 K/uL Mean Platelet Volume 9.6 7.5-10.5 fL Immature Granulocyte % (Auto) 0.6 0-1 % Neutrophils (%) (Auto) 94.6 H 40.0-77.0 % Lymphocytes (%) (Auto) 3.0 L 21.0-51.0 % Monocytes (%) (Auto) 1.6 L 3.0-13.0 % Eosinophils (%) (Auto) 0.1 0.0-8.0 % Basophils (%) (Auto) 0.1 0.0-5.0 % Neutrophils # (Auto) 9.7 H 1.8-7.7 K/uL Lymphocytes # (Auto) 0.3 L 1.0-4.8 K/uL Monocytes # (Auto) 0.2 0.1-1.0 K/uL Eosinophils # (Auto) 0.01 0.00-0.70 K/uL Basophils # (Auto) 0.01 0.00-0.20 K/uL Absolute Immature Granulocyte (auto 0.06 0-1 K/uL Nucleated Red Blood Cells 0.0 0.0-0.19 % Sodium Level 123 L 136-145 mmol/L Potassium Level 4.8 3.5-5.1 mmol/L Chloride Level 90 *L 101-111 mmol/L Carbon Dioxide Level 28 21-32 mmol/L Blood Urea Nitrogen 19 H 7-18 mg/dL Creatinine 0.5 0.5-1.0 mg/dL Glomerular Filtration Rate Calc 114 >90 mL/min Random Glucose 205 H 70-105 mg/dL Total Calcium 8.5 8.5-10.1 mg/dL Vitamin D 25-Hydroxy 9.1 30.0-100.0 ng/mL Vitamin B12 Level 463 193-986 pg/mL Current Medications Medications (Trade) Dose Ordered Sig/Julita Route PRN Reason Start Time Stop Time Status Last Admin Dose Admin Acetaminophen (TYLenol 650MG ELIXIR) 650 mg Q6H PRN PO MILD PAIN (1-3) 06/04/24 08:30 07/04/24 08:29 06/07/24 08:29 650 MG Acetaminophen (TYLenol 650MG SUPPOSITORY) 650 mg Q6H PRN RC MILD PAIN (1-3) 05/23/24 20:30 06/22/24 20:29 Acetylcysteine (MUComyst 20% 4ML) 400mg = 2ml [id number] IH 06/02/24 00:00 06/05/24 15:52 DC 06/05/24 11:35 200 MG Albuterol (DUOneb) 1 udvial [id number] IH 05/24/24 00:00 06/23/24 00:00 06/07/24 12:36 1 UDVIAL Azithromycin 250 ml @ 250 mls/hr Q24H IVPB 05/24/24 17:00 05/24/24 14:41 DC Azithromycin 250 ml @ 250 mls/hr Q24H STAT IVPB 05/23/24 17:17 05/24/24 14:41 DC 05/23/24 17:45 250 MLS/HR Cefepime HCl (MAXipime 2 gm vial) 2 gm Q12H IVPB 05/24/24 15:00 06/03/24 14:59 DC 06/03/24 03:18 2 GM Ceftriaxone Sodium (ROCEphine 1G INJ) 1 gm Q24H IVPB 05/24/24 17:30 05/24/24 14:41 DC Clotrimazole (Mycelex) 10 mg TID MM 06/04/24 21:00 07/04/24 20:59 06/07/24 13:31 10 MG Doxycycline Hyclate 250 ml @ 125 mls/hr Q12H IV 05/24/24 16:30 06/03/24 16:29 DC 06/03/24 04:23 125 MLS/HR Enoxaparin Sodium (Lovenox) 40 mg Q24H SQ 05/23/24 21:00 06/22/24 20:59 06/06/24 21:26 40 MG Famotidine (Pepcid 20mg Vial) 20 mg DAILY IV 05/24/24 09:00 06/23/24 08:59 06/07/24 08:24 20 MG Fluconazole (DiFLUCan 100 mg TAB) 200 mg DAILY PO 06/05/24 09:00 07/05/24 08:59 06/07/24 08:25 200 MG Fluconazole/ Sodium Chloride 100 ml @ 100 mls/hr DAILY IV 05/26/24 09:00 05/27/24 15:57 DC 05/27/24 09:07 100 MLS/HR Furosemide (LASix 20MG VIAL) 20 mg DAILY IV 05/31/24 09:00 06/07/24 13:18 DC 06/03/24 08:38 20 MG Guaifenesin/ Dextromethorphan (RobiTUSSin DM 200/20MG 10ML) 10 ml Q4H PRN PO COUGH 05/23/24 20:30 06/22/24 20:29 06/07/24 08:29 10 ML Lactated Ringer's (Lactated Ringers 1000ml) 500 ml ONCE IV 06/02/24 20:00 06/02/24 19:54 DC Levofloxacin/ Dextrose 100 ml @ 100 mls/hr Q24H IV 05/24/24 15:00 05/24/24 16:16 DC Magnesium Sulfate 50 ml @ 0 mls/hr PROTOCOL PRN IV hypomagnesemia 05/28/24 08:00 06/27/24 07:59 Methylprednisolone Sodium Succinate (Solu-medROL 40MG) 20 mg Q12H IVP 06/05/24 07:00 07/05/24 06:59 06/07/24 08:24 20 MG Methylprednisolone Sodium Succinate (Solu-medROL 40MG) 40 mg Q12H IVP 05/28/24 18:00 05/29/24 16:45 DC 05/29/24 05:32 40 MG Methylprednisolone Sodium Succinate (Solu-medROL 40MG) 40 mg Q6H IVP 05/29/24 16:30 06/04/24 16:44 DC 06/04/24 11:13 40 MG Methylprednisolone Sodium Succinate (Solu-medROL 40MG) 40 mg Q6H IVP 06/04/24 18:00 06/05/24 00:24 DC 06/04/24 23:48 40 MG Methylprednisolone Sodium Succinate (Solu-medROL 40MG) 40 mg Q8H IVP 05/24/24 01:00 05/25/24 21:51 DC 05/25/24 17:28 40 MG Methylprednisolone Sodium Succinate (Solu-medROL 40MG) 60 mg Q6H IVP 05/25/24 22:00 05/28/24 02:25 DC 05/27/24 23:55 60 MG Methylprednisolone Sodium Succinate (Solu-medROL 40MG) 60 mg Q6H IVP 05/28/24 06:00 05/28/24 08:27 DC 05/28/24 06:47 60 MG Metronidazole/ Sodium Chloride (flaGYL) 500 mg Q8H IV 05/25/24 22:00 05/25/24 21:56 DC Ondansetron HCl (zoFRAN 4MG INJ) 4 mg Q6H PRN IV NAUSEA/VOMITING 05/23/24 20:30 06/22/24 20:29 Potassium Chloride 100 ml @ 100 mls/hr AD PRN IV POTASSIUM PROTOCOL 05/28/24 08:00 06/27/24 07:59 Potassium Chloride (K-Dur/Klor-Con 20meq) 20 meq AD PRN PO POTASSIUM PROTOCOL 05/28/24 08:00 06/27/24 07:59 Potassium Chloride (KCl 10% Elixir 20meq/15ml) 20 meq AD PRN PO POTASSIUM PROTOCOL 05/28/24 08:00 06/27/24 07:59 Sodium Chloride 500 ml @ 500 mls/hr Q1H IV 06/02/24 20:00 06/02/24 20:59 DC 06/02/24 21:34 500 MLS/HR Sodium Chloride 1,000 ml @ 75 mls/hr [id number] IV 06/07/24 13:30 07/07/24 13:29 06/07/24 13:31 75 MLS/HR Sodium Chloride (Sodium Chloride) 1,000 mg BIDAC PO 06/07/24 16:30 07/07/24 16:29 Trimethoprim/ Sulfamethoxazole (BactRIM DS) 1 tab BID PO 05/26/24 21:00 05/29/24 16:18 DC 05/29/24 08:07 1 TAB Trimethoprim/ Sulfamethoxazole (BactRIM DS) 2 tab TID PO 05/29/24 16:30 06/05/24 20:59 DC 06/05/24 14:55 2 TAB Trimethoprim/ Sulfamethoxazole (BactRIM DS) 2 tab TID PO 06/06/24 09:30 09/11/24 09:29 06/07/24 13:31 2 TAB DIAGNOSTICS / RADIOLOGY: [ ] ASSESSMENT: Acute hypoxemic respiratory failure, POA Bilateral lower lobe bacterial pneumonia + MRSA POA, +Azra Suspected PCP PNA based on CT findings vs viral/Atypical PNA . POA HIV positive (preliminary report, confirmatory test nonreactive) POA Normocytic anemia, not POA Neutrophilia, POA Hyperglycemia, POA Obesity BMI of 32.3 Former smoker Acute cystitis, POA Fatty liver, POA Moderate hypoalbuminemia POA Previous COVID-19 infection PLAN: Continue ICU Continue the patient on BiPAP alternating with high-flow oxygen Continue the patient on high-dose steroids Continue Bactrim Continue doxycycline Continue lasix 20mg q24h Continue broad-spectrum antibiotic with doxycycline, and cefepime IV Continue to follow Pulmonary input recommendation Continue to follow infectious disease input and recommendation Follow serology test for toxoplasma gone the Follow chest x-ray Continue bronchodilators per respiratory therapist Replace electrolytes IV per protocol A.m. labs GI and DVT prophylaxis. Further orders to follow based on the above results Infectious disease consulted, appreciate recommendations Disposition: Remains admitted to the ICU, pending improvement in clinical condition. Total ICU time spent greater than 30 minutes. HEATHER RICE MD Jun 07, 2024 14:26
[2024-06-07] MEDS: SODIUM CHLORIDE 1,000 MG TAB PO SCH (16:59)
[2024-06-07] MEDS: CHLORHEXIDINE GLUCONATE 15 ML MOUTHWASH MM SCH (16:59)
--- NOTE | 2024-06-07 22:08 | PN ---
INFECTIOUS DISEASE PROGRESS NOTE Date of Service: Jun 07, 2024 SUBJECTIVE: This is a 49-year-old female patient who was admitted with chief complaint of shortness of breaths. A chest x-ray done on admission showed left lower lung pneumoniae. A CT chest showed bilateral pulmonary infiltrates but no evidence of PE. 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 Patient was seen and examined at bedside in ICU room 208. Patient is awake, alert and oriented x 3. Patient continues on high-flow oxygen at 30 L and 70%. Will continue on continue on Bactrim DS p.o. and fluconazole. No fever, temperature is 98.8 and the WBC trended down to 10.6. We will continue to follow patient's care. PHYSICAL EXAM EYES: Anicteric. Pupils equal and reactive. HENT: No oral thrush seen, moist Oral mucosa. Oral candidiasis. NECK: Supple, no JVD or thyromegaly. LUNGS: Lung sounds diminished. Dyspnea. On high-flow Oxygen support. CARDIOVASCULAR: S1, S2 regular. No murmur heard. ABDOMEN: Soft, non tender, bowel sounds present, no organomegaly. CENTRAL NERVOUS SYSTEM: Awake, alert, oriented x 3. SKIN: No rashes, no swelling. LYMPHATICS: No peripheral lymphadenopathy. MUSCULOSKELETAL: No joint swelling, erythema or tenderness. EXTREMITIES: No cyanosis or clubbing. BACK: No deformity, no pressure ulcer. GENITOURINARY: No dysuria or hematuria. Vital Sign (Last 12 Hours) 06/07/24 06/07/24 06/07/24 06/07/24 10:16 10:46 11:16 11:30 Pulse 121 106 103 Resp 26 26 22 B/P (MAP) 125/79 127/77 111/67 Pulse Ox 98 100 100 100 O2 Delivery N/C High Flow System N/C High Flow System Hi-Flow N/C+ O2 Flow Rate 30.0 30.0 30 FiO2 70 70 70 06/07/24 06/07/24 06/07/24 06/07/24 12:00 12:37 12:38 14:13 Pulse 119 119 118 Resp 29 33 29 B/P (MAP) 116/61 Pulse Ox 100 99 O2 Delivery Bi-PAP+ HFNC Heated System N/Can N/C High Flow System O2 Flow Rate 30 30.0 30.0 FiO2 70 70 70 06/07/24 06/07/24 06/07/24 06/07/24 14:16 14:46 15:16 15:46 Pulse 118 120 116 116 Resp 32 32 31 26 B/P (MAP) 110/63 114/67 129/62 118/75 Pulse Ox 98 99 99 98 O2 Delivery N/C High Flow System N/C High Flow System O2 Flow Rate 30.0 30.0 FiO2 70 70 06/07/24 06/07/24 06/07/24 06/07/24 16:16 16:30 16:46 17:00 Temp 98.2 Pulse 114 114 113 Resp 21 28 27 B/P (MAP) 128/84 115/72 Pulse Ox 100 100 96 96 O2 Delivery N/C High Flow System Hi-Flow N/C+ O2 Flow Rate 30.0 30 FiO2 70 70 06/07/24 06/07/24 06/07/24 06/07/24 17:16 17:46 18:00 18:16 Pulse 110 111 110 113 Resp 23 24 38 43 B/P (MAP) 122/60 106/49 99/56 Pulse Ox 97 97 98 97 06/07/24 06/07/24 06/07/24 19:00 19:34 19:42 Pulse 130 124 122 Resp 49 35 27 Pulse Ox 86 O2 Delivery HFNC Heated System N/Can O2 Flow Rate 30.0 FiO2 70 LABS: Laboratory: Test 06/07/24 03:36 06/06/24 11:51 06/06/24 03:52 Range/Units White Blood Count 10.2 4.8-10.8 K/uL Red Blood Count 3.99 L 4.00-5.50 MIL/uL Hemoglobin 13.1 12.0-16.0 g/dL Hematocrit 37.0 36-48 % Mean Corpuscular Volume 92.7 79-99 fL Mean Corpuscular Hemoglobin 32.8 27.0-33.0 pg Mean Corpuscular Hemoglobin Concent 35.4 32.0-36.0 g/dL Red Cell Distribution Width 11.4 11.0-15.5 % Platelet Count 237 130-400 K/uL Mean Platelet Volume 9.6 7.5-10.5 fL Immature Granulocyte % (Auto) 0.6 0-1 % Neutrophils (%) (Auto) 94.6 H 40.0-77.0 % Lymphocytes (%) (Auto) 3.0 L 21.0-51.0 % Monocytes (%) (Auto) 1.6 L 3.0-13.0 % Eosinophils (%) (Auto) 0.1 0.0-8.0 % Basophils (%) (Auto) 0.1 0.0-5.0 % Neutrophils # (Auto) 9.7 H 1.8-7.7 K/uL Lymphocytes # (Auto) 0.3 L 1.0-4.8 K/uL Monocytes # (Auto) 0.2 0.1-1.0 K/uL Eosinophils # (Auto) 0.01 0.00-0.70 K/uL Basophils # (Auto) 0.01 0.00-0.20 K/uL Absolute Immature Granulocyte (auto 0.06 0-1 K/uL Nucleated Red Blood Cells 0.0 0.0-0.19 % Sodium Level 123 L 136-145 mmol/L Potassium Level 4.8 3.5-5.1 mmol/L Chloride Level 90 *L 101-111 mmol/L Carbon Dioxide Level 28 21-32 mmol/L Blood Urea Nitrogen 19 H 7-18 mg/dL Creatinine 0.5 0.5-1.0 mg/dL Glomerular Filtration Rate Calc 114 >90 mL/min Random Glucose 205 H 70-105 mg/dL Total Calcium 8.5 8.5-10.1 mg/dL Vitamin D 25-Hydroxy 9.1 30.0-100.0 ng/mL Vitamin B12 Level 463 193-986 pg/mL ASSESSMENT: Acute hypoxic respiratory failure, requiring high-flow oxygen support. 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 Positive HIV test. Leukocytosis. Obesity. Oral candidiasis. PLAN: Continue Bactrim DS b.i.d p.o.. Continue fluconazole p.o. Continue Mycelex. Continue GI prophylaxis. Continue oxygen support, currently on high-flow oxygen. Continue bronchodilators. Continue DVT prophylaxis. This case was reviewed and discussed with my supervising physician and the above assessment and plan was formulated and agreed upon. ATTESTATION BY PHYSICIAN I have seen and examined the patient. I reviewed the documentation, medical decision making, and treatment plan as noted by the mid-level provider above. I agree with the findings and plan of care. [place] MD, [facility] Jun 07, 2024 22:08
[2024-06-08] VITALS (32 sets, daily range): BP systolic 97–154; BP diastolic 38–85; PULSE 100–129; RESP 17–35; TEMP 98.3–101; O2SAT 94–100
[2024-06-08 04:28] LABS: CREATININE 0.4 mg/dL (0.5-1.0); POTASSIUM 5.6 mmol/L (3.5-5.1); THYROID STIMULATING HORMONE 0.29 uIU/mL (0.36-3.74); URIC ACID 1.2 mg/dL (2.6-7.2)
--- NOTE | 2024-06-08 09:01 | HMCIMG ---
PORTABLE CHEST RADIOGRAPH INDICATION: PNA COMPARISON: 06/06/2024 FINDINGS: Heart size is normal. The pulmonary vascularity and paul appear normal. Unchanged left lung and right lung base opacities. No significant pleural effusion noted. No pneumothorax detected. IMPRESSION: Unchanged left lower lung and right lung base opacities.
[2024-06-08 10:11] LABS: ABSOLUTE CD4 COUNT 3 /uL (359-1519); LYMPHS % FOR CD4 COUNT 4 % (Not Estab.); LYMPHS ABS FOR CD4 COUNT 0.4 x10E3/uL (0.7-3.1); PERCENT CD4 CELLS 0.8 % (30.8-58.5); WBC FOR CD4 COUNT 10.1 x10E3/uL (3.4-10.8)
[2024-06-08] MEDS: SODIUM ZIRCONIUM CYCLOSILICATE 5 GM POWD.PACK PO SCH (10:50)
--- NOTE | 2024-06-08 10:50 | PN ---
[facility] PROGRESS NOTE Date Patient Seen: Jun 08, 2024 Time of Visit: 10:46 Supervising Physician: Dr. Kohler Primary Care Physician: Stu Foss MD Outpatient Specialists: [ ] Inpatient Consults: Pulmonology PROBLEM LIST: Severe ARDS Severe Sepsis Acute hypoxemic respiratory failure, POA requiring high Flow with 80% Bilateral lower lobe bacterial pneumonia + MRSA POA, +Azra Confirmed PCP PNA per Ag (serology), POA New HIV/AIDS positive POA Bactrim induced hyponatremia and hyperkalemia Normocytic anemia, not POA Neutrophilia, POA Hyperglycemia, POA Obesity BMI of 32.3 Former smoker Fatty liver, POA Moderate hypoalbuminemia POA Previous COVID-19 infection INTERVAL HISTORY: 05/25/2024: At the time of my evaluation, the patient was lying in bed. She is currently on a non-rebreather mask. She reports feeling slightly better today. No laboratory data for review today. No new complaint. 05/28-patient is awake alert and oriented x3 currently receiving nebulizer treatment. She has been tolerating BiPAP overnight and currently on 10 L via Oxymizer which is less than 2 days ago which was 15 liters/minute saturating 96%. Patient has been afebrile and hemodynamically stable. Patient reports good urine output and bowel movements x2 yesterday. On laboratory white count is normal neutrophils the same as yesterday 89.8. Chemistry kidneys are doing good creatinine 0.5 GFR 114 glucose 150 mg/dL we will order hemoglobin A1c for tomorrow on chest x-ray. We will continue to follow ID recommendation. 05/29/24-patient is awake alert and oriented x3. She is sitting up on recliner chair with high FiO2 requirements 10 L via Oxymizer. We will increase Solu- Medrol to 40 mg IV q.6 hours and continue with doxycycline cefepime and increased Bactrim to full-dose two tablets p.o. TID. Patient's denies chills, chest pain palpitations. However she does report continues shortness for breath and gets winded easily with a few steps to the restroom. Patient to continue BiPAP at night and p.r.n.. Chest x-ray worsening left lower lobe pneumonia. 05/30/24- patient is awake alert and oriented x3 sitting up in recliner chair. Patient is easily winded with conversation currently on non-rebreather at 100% FiO2. His hypoxemia is worsening with the a pH of 7.45 pCO2 of 38 PO2 of 68.7 and a bicarb 26. We will have patient transferred to ICU and we will oxygen in the following order: with high-flow if high flow not enough will start high flow + NRB and if not enough then switch to bipap. She is high risk for decompensation although patient reports she does not feel any increased shortness of breath she is easily winded and tachycardic with ambulating short distance to the restroom. On 2D echo patient has not LVEF of greater than 55% with mild concentric left ventricular hypertrophy left ventricular diastolic function is normal. 05/31/24- Pt is awake alert and oriented x 3 she reamins in the icu due to high risk for resp decompensation. She is hemodynamically stable blood pressure 105/50 O2 sat of 95% with high-flow on 30 L with a FiO2 of 90% respiratory rate is 28 heart rate of 100 and afebrile. Patient gets easily winded when holding a conversation. Encouraged to lay down prone. She continues with high dose steroids Solu-Medrol 40 q.6 hours. Urine output 2.9 L in last 24 hours, WBCs are 14.6 H&H is 12.9/36.6 with a platelet count of 304 K. on chemistry sodium is 134 chloride is 98 BUN of 21 creatinine of 0.5 and GFR of 114 glucose of 151 mg/dL LDH is 483 albumin 2.6. On serology Pneumocystis sandra antigen +. Clinical findings and laboratory findings consistent with HIV/AIDS , ID is on the case and we will follow his recommendations. Per patient she has talked to her partner about her results, I educated her that is very important for her sexual partners to be notified and so they can get checked for HIV. Pt verbalized understanding. On chest XR left lower lobe infiltrates consistent with pneumonia. 06/01/24-patient sitting up in chair sleeping but was easily arousable to voice. Awake alert and oriented x3,. Currently on high-flow O2 with a FiO2 of 80%. No major overnight events per RN. she is hemodynamically stable and afebrile. Urine output is good 2.9 L in the last 24 hours. WBCs are 12.4 trended down from yesterday neutrophils are 92.4. On chemistry sodium 134 with a potassium of 5.4 chloride of 96 BUN of 22 creatinine of 0.6 and GFR of 109 mg/dL ALT 86 albumin 2.5. Patient continues on doxycycline, cefepime, and Bactrim DS two tab lets 3 times a day. We will continue follow ID recommendations 06/02/24-patient is awake alert and oriented x3 sitting up in recliner chair she has been proned this morning and tolerated well saturating 100% on high flow of with 80% FiO2. Now sitting up and saturating 92%. She reports that she is now able to expectorate some sputum. Patient has a temperature 99.9 she is sinus tachy in the monitor 115 beats per minute, respiratory rate of 28 and hemodynamically stable. Pancultured. Antibiotics per ID. Urine output is 1 L in the last 24 hours with a balance of -1.5L WBCs today are 16.9 neutrophils. We will order 500mls bolus of LR if no improvement we will give another bolus. Chemistry sodium was 132 chloride 96 BUN of 26, potassium is 4.8 BUN of 26 creatinine 0.6 GFR of 109 mg/dL albumin 2.6. we will order lactic. Per Dr Garcia recommends Vancomycin, this was communicated with ID. 04/03/25-patient with no major overnight events as per RN she is a little tachycardic in the 113 beats per minute, saturating 96% with FiO2 of 80% on high-flow nasal cannula with 30 L. Patient is high risk for intubation and I informed her of this encouraged her to have some Advance directive prior to requiring emergency intubation. She has accepted social science teacher consult for advance directive and agreed to let her kids know about her condition and discuss w/ them her wishes and theirs before signing any advance directives. T- max overnight 99.7 with a T low of 98.1. She is hemodynamically stable. She denies feeling any worsening shortness of breath. Patient denies any nausea vomiting or diarrhea. Urine output 2.5 L in the last 24 hours with a-610 mL balance. WBCs trending down 13.5 today H&H stable 12.8/36.7 neutrophils are 91.3. Chemistries sodium 132 chloride of 96 carbon dioxide 26 BUN 23 creatinine of 0.5 with a GFR of 114 random glucose 143 mg/dL lactic acid trended down to 3.0 ABG with a pH of 7.44 pCO2 of 35 PO2 decrease to 58 PF Ratio 72.5, we will continue to encourage proning and add non-rebreather on top of high-flow nasal cannula. 06/04/2024: At the time of my evaluation, the patient was sitting up in bed. She remains on a non-rebreather mask over a high-flow nasal cannula. Oxygen saturation is optimal arranging between 93 to 98%. No febrile events. L aboratory data showed a improving WBC count down to 13.3. Chemistry panel showed a low-sodium count of one going to nine with a potassium of 4.2, chloride is 93, CO2 of 97, BUN is 28, creatinine of 0.6 and a GFR of 119. No new microbiology data for review. Chest x-ray today showed bilateral pulmonary infiltrates that persists. The patient continues on antibiotic therapy guided by the Infectious Disease specialist. No new complaint. 06/05/2024: At the time of my evaluation, the patient is lying in bed. The staff nurse reports no acute events overnight. The patient remains on high-flow nasal cannula 30% and backup non-rebreather mask 80%. Vital signs today which stable blood pressure, very labile heart rate, respiratory rate and SpO2. On labs today, the patient had a improved WBC count down to 11.1. Chemistry panel showed a downward trend of sodium to 128. Potassium 4.4, chloride 94 and CO2 of 27. Renal parameters remain stable. Microbiology data showed no new studies. No new imaging for review today. Patient has no new complaint. 06/06/2024: At the time of my evaluation, the patient is lying in bed. The patient remains on high-flow nasal cannula 30% and backup non-rebreather mask 80%. Vital signs today which stable blood pressure, tachypnea and tachycardia. Spo2 ranging in the upper 90's. On labs today, the patient had a improved WBC. Chemistry panel showed a odium to 129. Renal parameters remain stable. Microbiology data showed no new studies. No new imaging for review today. Patient has no new complaint. 06/07/2024: At the time of my evaluation, the patient was lying in bed. The staff nurse reports no acute events overnight. The patient remains with high- flow nasal cannula and denies any shortness of breath. The vital signs today st ill showing tachypnea and tachycardia with blood pressure of 127/77 and SpO2 of 100%. Laboratory data of significance, showed a drop in sodium count of 123 and chloride of 90. Otherwise, the remaining laboratory parameters are unremarkable. There was no new microbiology data for review. No new chest imaging. Medication list reviewed showed patient continues on Bactrim DS and f luconazole. She remains on Solu-Medrol and bronchodilator therapy with DuoNeb. No new complaint. 06/08/2024: At the time of my evaluation, the patient is lying in bed. The staff nurse reports no major events overnight. She remains awake alert and o riented x4. On the monitor, the patient is normotensive without any need of pressure support . She is sinus tach rate in the low 100s. Pulse oximetry was in the high 90s to 100% on high-flow nasal cannula 30 L 60% FiO2. On GI, patient is feeding orally, no repeat of nausea vomiting or diarrhea. Genitourinary, the patient has a intake of 2255.0 with a out of 3500 and a negative balance of 1245. Functional aleman, the patient is mobile, but very weak to exit the bed unassisted. On skin, the patient has multiple oral herpetic appearing lesions. The staff nurse reports no acute events overnight. Laboratory data review today, showed a sodium of 133, potassium of 5.6, chloride of 91, CO2 of 25, BUN is 20 with a creatinine of 0.4. Blood glucose of 150. TSH of 0.29 and a uric acid of 1.2. No other complaint. REVIEW OF SYSTEMS: General: No malaise or fever. Neurological: No fainting episodes or seizures. HEENT: No nasal congestion or nasal secretion. Respiratory: Yes for cough, yellow phlegm, shortness for breath on minimal exertion. Cardiac: No chest pain or palpitations. Gastrointestinal: No vomiting or diarrhea. Genitourinary: No dysuria hematuria. Skin: No rashes or lesions. Hematological: No bruises or bleeding. Musculoskeletal: No joint pains or arthralgias. Psychiatric: No depression or panic attacks. PHYSICAL EXAM: GENERAL: alert, weak, awake oriented x 3 HEENT: EOMI, Sclera non icteric, moist mucosa NECK: Supple, no JVD, trachea midline LUNGS: Fine crackles to bilateral lower posterior bases lung sounds. No wheezes HEART: Regular rate and rhythm. Normal S1 and S2, without murmurs ABD: Abdomen soft, nontender. Bowel sounds present EXT: No clubbing cyanosis or edema NEURO: Alert and oriented to person, follows commands Vital Signs (last 8hr) Date Time Temp Pulse Resp B/P (MAP) Pulse Ox O2 Delivery O2 Flow Rate FiO2 06/08/24 07:45 99.0 102 19 148/61 97 N/C High Flow System 30.0 60 06/08/24 07:37 98 Hi-Flow N/C+ 30 70 06/08/24 07:28 108 26 06/08/24 07:27 104 29 HFNC Heated System N/Can 30.0 60 06/08/24 06:00 102 28 120/44 100 N/C High Flow System 30.0 60 06/08/24 05:00 100 27 113/38 100 BIPAP 70 06/08/24 04:00 99.0 102 26 114/71 100 BIPAP 70 06/08/24 04:00 97 Bi-PAP+ 70 06/08/24 03:00 101 26 108/58 100 BIPAP 70 LABS: Hematology Labs: Test 06/07/24 03:36 Range/Units White Blood Count 10.2 4.8-10.8 K/uL Red Blood Count 3.99 L 4.00-5.50 MIL/uL Hemoglobin 13.1 12.0-16.0 g/dL Hematocrit 37.0 36-48 % Mean Corpuscular Volume 92.7 79-99 fL Mean Corpuscular Hemoglobin 32.8 27.0-33.0 pg Mean Corpuscular Hemoglobin Concent 35.4 32.0-36.0 g/dL Red Cell Distribution Width 11.4 11.0-15.5 % Platelet Count 237 130-400 K/uL Mean Platelet Volume 9.6 7.5-10.5 fL Immature Granulocyte % (Auto) 0.6 0-1 % Neutrophils (%) (Auto) 94.6 H 40.0-77.0 % Lymphocytes (%) (Auto) 3.0 L 21.0-51.0 % Monocytes (%) (Auto) 1.6 L 3.0-13.0 % Eosinophils (%) (Auto) 0.1 0.0-8.0 % Basophils (%) (Auto) 0.1 0.0-5.0 % Neutrophils # (Auto) 9.7 H 1.8-7.7 K/uL Lymphocytes # (Auto) 0.3 L 1.0-4.8 K/uL Monocytes # (Auto) 0.2 0.1-1.0 K/uL Eosinophils # (Auto) 0.01 0.00-0.70 K/uL Basophils # (Auto) 0.01 0.00-0.20 K/uL Absolute Immature Granulocyte (auto 0.06 0-1 K/uL Nucleated Red Blood Cells 0.0 0.0-0.19 % Chemistry Labs: Test 06/08/24 03:42 06/06/24 11:51 Range/Units Sodium Level 123 L 136-145 mmol/L Potassium Level 5.6 H 3.5-5.1 mmol/L Chloride Level 91 L 101-111 mmol/L Carbon Dioxide Level 25 21-32 mmol/L Blood Urea Nitrogen 20 H 7-18 mg/dL Creatinine 0.4 L 0.5-1.0 mg/dL Glomerular Filtration Rate Calc 121 >90 mL/min Random Glucose 150 H 70-105 mg/dL Uric Acid 1.2 L 2.6-7.2 mg/dL Total Calcium 8.5 8.5-10.1 mg/dL Triglycerides Level 89 30-200 mg/dL Cholesterol Level 147 <200 mg/dL LDL Cholesterol 92 0-99 mg/dL HDL Cholesterol 41 35-85 mg/dL Thyroid Stimulating Hormone (TSH) 0.29 L 0.36-3.74 uIU/mL Vitamin D 25-Hydroxy 9.1 30.0-100.0 ng/mL DIAGNOSTICS / RADIOLOGY RESULTS: [ ] PLAN Follow ID recommendations Encouraged to prone herself Maintain O2 sats above 92% Monitor temperature trend Continue high-dose steroids Duo nebs q.6 hours Abx Per ID trend Lactic acid. Due to severe sob will not do 30ml/kg bolus at one time if pt not hypotensive to avoid worsening resp status Instead will try pulsating boluses of 500 mL of NS as tolerated. Follow respiratory status closely as she is high risk for decompensation. social science teacher to discuss advance directives. Monitor resp status closely high risk for intubation, Pt will likely not come off mechnical ventilation easily and higher risk of HAP due to debilitated immune system so will try other measures of oxygenation prior to intubation for now. We will place NRB on top of already High Flow NC with fio2 of 80%. 06/04/2024: For now, going to continue current management for the patient. We are going to continue with oxygen supplementation as ordered and monitor the saturation. The patient will continue on antibiotic therapy as guided by the Infectious Disease specialist. Currently, the plan is to continue with Bactrim double strength b.i.d. was started on fluconazole 200 mg p.o. daily and cefepime, doxy was discontinued. We will discuss with the Infectious Disease specialist regarding the benefit of Zithromax for MAC. Considering the patient has been on extended course of steroid therapy, I am going to decrease the dose of the Solu-Medrol to 20 q.12h. Appreciate the input of the true specialist. We will monitor the patient's progress and response to management. We will repeat surveillance labs in the morning. We will continue to provide general supportive care, GI and DVT prophylaxis. Further orders per attending MD and hospital course. 06/05/2024: For now, going to continue current management for the patient. She will continue on oxygen supplementation as ordered and we will adjust as necessary. Steroid therapy was decreased overnight. She is currently on Solu- Medrol 20 mg IV q.12. She will continue on antibiotics per the guidance of Infectious Disease specialist, currently receiving Bactrim DS and fluconazole. I appreciate the input of treating specialist. We will monitor the patient's progress and response to management. Continue to provide general supportive care, GI and DVT prophylaxis. Further orders per attending MD and hospital course. 06/06/2024: For now, going to continue current management for the patient. We are going to continue antibiotic therapy currently on Bactrim DS two tabs t.i.d. and fluconazole. The steroid dose was decreased yesterday to Solu-Medrol 20 mg IV q.12. We will monitor the patient's progress and response to management. We will appreciate the input of the treating specialist. We will continue to p rovide general supportive care, GI and DVT prophylaxis. Further orders per attending MD and hospital course. 06/07/2024: For now, we are going to continue current management for the patient. Considering the drop in sodium count, I am going to put the patient on IV NS at 75 cc/hour. We will also start the patient on sodium chloride tabs 1 g p.o. b.i.d. before meals. We will administer one time dose now. I am going to request a TSH level, cortisol level a.m., uric acid and lipids with a.m. labs. We will continue to monitor the sodium count. The patient will continue antibiotic therapy as guided by the Infectious Disease specialist. We will repeat surveillance labs in the morning. I am going to request a repeat chest x-ray for the morning. We will continue to provide general supportive care, GI and DVT prophylaxis. Further orders per attending MD and hospital course. 06/08/2024: For now, we are going to continue current management for the patient. We will continue oxygen supplementation via the high-flow nasal cannula 30 L 60% FiO2. Considering the patient is at 100%, I am going to discuss with the RT to wean the supports maintaining SpO2 above 92% . We will continue to monitor the vital sign trend and treat accordingly. We will monitor the oral intake and supplement if necessary. We will also continue to monitor the I's and O's with regards to the electrolyte imbalance, the low-sodium count and elevated potassium count we will be attributed to the use of high-dose Bactrim. We will supplement the sodium with sodium chloride tabs 1000 mg twice a day with meals. I am also going to start the patient on Lokelma5 mg. We will monitor the electrolyte trend. The patient will continue on high-dose Bactrim, fluconazole, Mycelex and Solu-Medrol. She was started on Peridex for oral care. We will continue to provide general supportive care, GI and DVT prophylaxis. Further orders per attending MD and hospital course. NEURO: Minimize central acting medications as possible. Fall Precautions. Well lighted room through the day and minimize interruptions through the night to prevent acute delirium. PULMONARY: Supplemental 02 as needed Titrate Fio2 to keep Spo2 > or = 90% DuoNebs and CPT as needed IS hourly while awake for pulmonary hygiene Out of bed to chair as tolerated CARDIOVASCULAR: Follow hemodynamics. Titrate vasopressor to keep MAP >65 or systolic blood pressure >95mmHg telemetry Drips none LINES: PIV GI & NUTRITION: Continue nutritional support Aspirations precautions Prokinetic agents and laxatives as needed KIDNEYS & ELECTROLYTES: Strict monitoring of intake and output Daily weights Avoid nephrotoxic agents Monitor electrolytes and replace as needed Goal urine output of 30mL/hr or 0.5mL/kg/hr ENDOCRINE: Maintain blood glucose between 100-180 at all times. Insulin sliding scale for blood glucose management INFECTIOUS DISEASE: Trend temperature. Clarke-culture if febrile. Micro: [ ] Sputum culture from 05/23/24 positive for MRSA, Betty albicans Pneumocystis carinii antigen positive Panculture: 06/02/24 Blood cultures Urine cultures Respiratory culture Antibiotics: Bactrim DS Fluconazole Mycelex HEMATOLOGY & COAGULATION: Monitor H&H. Keep Hgb > 7 Transfuse 1 unit of PRBC for Hgb < 7 Transfuse 1 pack of platelets of platelets < 20, 000 Watch for any signs and symptoms of bleeding SKIN: Pressure ulcer prevention per facility protocol Rehab: PT/OT Prophylaxis: GI: Pepcid DVT: Lovenox Code Status: Full Resuscitation Disposition: ICU Other: Total patient care time exceeds 45 minutes excluding all procedures. Case was discussed and seen with my supervising physician. The above plan was formulated and agreed upon. DAYRON RUBIN NP Jun 08, 2024 10:50
[2024-06-08] MEDS: BENZOCAINE/MENTH/CETYLPYRD CL 1 EACH LOZENGE MM PRN (10:55)
--- NOTE | 2024-06-08 13:34 | PN ---
[facility] PROGRESS NOTE Date of Service: Jun 08, 2024 Time of Service: 13:28 SUBJECTIVE: [ ] Ms. Abdullahi is a 49-year-old female that was seen and examined today on 05/23/2024. Patient is a good historian and personal health. Patient's son Dagoberto Salcido is at bedside. Patient states that she came to the emergency department with a chief complaint of shortness of breath. Onset was two weeks ago. Location is to lungs. Duration is on and off. Character is described as "easily running out of air." Initially shortness and breath was only aggravated with climbing one or two flights of stairs but symptoms have progressively worsened and patient becomes short of breath even standing or walking short distances. There was no alleviating factors however previously symptoms were being controlled with daily morning albuterol nebulizer treatments. Patient denies any associated chest pain or dizziness. Patient reports an episode of COVID in December 2023. emergency department CBC unremarkable, chemistry unremarkable, urinalysis unremarkable, influenza screen negative, COVID negative, blood gas shows PO2 less than 45. Chest x-ray shows left lower lung pneumonia and minimal right lung base atelectasis. Upon arrival to the emergency department patient was placed on a BiPAP due to respiratory distress. 05/24/2024-patient was seen and examined at the bedside, still on BiPAP. Patient is able to speak, and says she feels much better than before. Patient says after COVID in December she developed severe bronchitis and she was on Solu-Medrol and albuterol, which did not help her much and later she had high fevers and shortness of breath which is when she came to the ED.Vitals afebrile pulse 76, RR 38 tachypneic , blood pressure 115/68, pulse oxygen 99 on BiPAP flow of 60. On ABG pH 7.47, pCO2 29, PO2 109.4, oxygen saturation 98.3. [id number] potassium 4.1 BUN15 creatinine 0.5 GFR 114. We will closely monitor the patient. Floor Associate consult noted waiting on the recommendation 05/25/24 patient was seen and examined and case discussed with RN and family by the bedside. She was breathing better today. She has been on BiPAP all night but now he was on 100% non-rebreather with further efforts to continue to wean the oxygen requirements down. 05/27/24 patient is seen and examined at bedside, acute events overnight, case discussed with the RN, BP 131/64, afebrile, saturating 96-97% via Ventimask, FiO2 40%. The patient admits cough productive of clear phlegm. Serology tests reviewed, HIV preliminary positive, discussed with the patient. 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 We will continue the patient on IV antibiotics, continue fluconazole, continue to follow Pulmonary and ID input and recommendations. After provided in the preliminary results of HIV test, she denies any suicidal or homicidal ideations. 05/28 patient has been seen and examined, no acute events overnight, case discussed with the RN, during my visit patient is sitting comfortably in the chair, hemodynamically stable, off Ventimask, currently on 10 L via nasal cannula, saturating 98%, tolerated BiPAP overnight. she feels better, less shortness a breath, still admits cough productive of yellow phlegm. No chest pain. Getting IV antibiotics during my visit. HIV P24 antigen, nonreactive. We will continue to follow Pulmonary and Infectious Disease input and recommendations. 05/29 patient has been seen and examined, no acute events overnight, case discussed with the RN, during my visit patient is sitting comfortably in the chair, hemodynamically stable, remains on 10 L via nasal cannula, saturating 98% , still admits cough productive of yellow phlegm. No chest pain. Getting IV antibiotics during my visit. HIV P24 antigen, nonreactive. Pending CD4 cell count. We will continue to follow Pulmonary and Infectious Disease input and recommendations. 05/30 the patient has been seen and examined, no acute events overnight, BP 114/66, during my visit she is on Ventimask, saturating 95%, FiO2 60%. Without the Ventimask the patient desaturates to the low 70s. Patient tolerating BiPAP during the night. Still admits cough productive of thick yellow phlegm, no chest pain. Results of CD4 cell count reviewed, discussed with the patient. We will continue broad-spectrum IV antibiotics. Continue to follow Pulmonary and Infectious Disease input and recommendations. 05/31 the patient has been seen and examined, upgraded to the ICU, during my visit she is sitting in the chair, BP 113/72, heart rate of 109, she is on Oxymizer, 30 L, FiO2 100%. She is alert oriented x3, still admits cough productive of thick yellow phlegm, no chest pain. Hemoglobin 12.9, hematocrit 36.6, WBC 14.6. ABG with pH 7.4, pCO2 40, PO2. Chest x-ray shows left lower l obe infiltrate consistent with pneumonia. She is getting IV antibiotics during my visit. Patient will remain in the ICU, continue to follow critical Care as well as infectious disease input and recommendations. 06/01 patient is seen and examined, sitting comfortable in chair, awake, following commands, remains on high-flow oxygen, FiO2 70%, 30 L, BP 117/67, heart rate of 78, respiratory rate of 30-36, saturating 100%, CBC with a hemoglobin 13.6, hematocrit 38.9, WBC 12.4. Platelet count of 341. Chest x-ray showing persistent left lung infiltrate, cardiac size and mediastinum unremarkable. The bony structures are within the normal limits. Patient getting IV antibiotics during my visit. Patient to continue with the high-dose steroids. Serology test positive for Pneumocystis sandra. Patient on Bactrim two tablets p.o. t.i.d.. Continue also doxycycline and cefepime IV. Continue to follow infectious disease input and recommendation. Continue to follow Pulmonary input and recommendations. 06/02 patient is seen and examined at bedside, currently in prone position, alert oriented x3. CPT started last night, she has started having more loose phlegm expectorated. BP 114/74, tachycardic 114, saturating 95%, high-flow nasal cannula, 30 L, FiO2 80%. CBC with a hemoglobin 16.9, hemoglobin 14 0, hematocrit 39.8, platelet count 347. Chest x-ray shows persistent left lung infiltrate. 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 HIV preliminary positive, HIV P 24 nonreactive, HIV-one RNA by PCR [id number]. Serology test for toxoplasma currently pending. Patient on IV antibiotics as well as high-dose steroids. Continue to follow infectious Disease and Pulmonary input and recommendations. 06/03 patient seen at bedside, no acute events overnight. She continues with respiratory distress, with increasing oxygen requirements. Critical Care has discussed a possible need for intubation if she does not improve. She has been started on steroids due to underlying PCP pneumonia. WBC improved from 16.9 down to 13.5, sodium stable at 132, same as yesterday, lactic acid downtrending from 4.1 down to 3.2, remainder of her labs are relatively unremarkable. 06/04 patient seen at bedside, no acute events overnight. She remains on high- flow nasal cannula, mildly tachycardic. WBC elevated at 13.3, sodium decreased from 132 down to 129, remainder of her labs are relatively unremarkable. Continue to wean supplemental oxygen. Further care per critical Care 06/05 patient seen at bedside, no acute events overnight. She remains on high- flow nasal cannula with BiPAP overnight and is still tachycardic. Heart rate ranging from 104 up to 113, WBC improved from 13.3 down to 11.1, sodium decreased from 120 down to 126, remainder of her labs are relatively unremarkable. We will continue to wean oxygen as able. 06/06 Patient seen at bedside, no acute events overnight. She remains on high- flow nasal cannula with BiPAP overnight and is still tachycardic. Heart rate ranging from 104 up to 122, WBC improved from 11.1 down to 10.6, sodium improved from 126 up to 129, remainder of her labs are relatively unremarkable. We will continue to wean oxygen as able. 06/07 patient seen at bedside, no acute events overnight. She is still on high- flow nasal cannula, RT advised to wean oxygen, currently saturating 100% on 30L. She is tachycardic, sodium decreased from 129 down to 123, likely secondary to Bactrim. Patient is asymptomatic, will continue with bactrim, if sodium continues to decrease consider a holiday from bactrim. 06/08 patient seen at bedside, no acute events overnight. She is still on high- flow nasal cannula, RT advised to wean oxygen, currently saturating 100% on 30L. She is tachycardic, sodium stable at 123, same as yesterday. Pending improvement in respiratory status REVIEW OF SYSTEMS 12 point review of systems negative unless noted in HPI PHYSICAL EXAM GENERAL APPEARANCE: The patient is awake, alert, and oriented, in no acute cardiopulmonary distress. NEUROLOGICAL: Cranial nerves II-XII grossly intact. Motor is 5/5 in bilateral upper and lower extremities proximal to distal. No sensory deficits. HEENT: Face is symmetric. Pupils are equal and reactive. Extraocular movements are intact. NECK: Supple. No JVD. No thyromegaly. No submental, submandibular, pre- /postauricular, occipital or supraclavicular lymphadenopathy. CHEST: Normal chest expansion. No Telemetry. LUNGS: Absence of any rales, rhonchi or any wheezing. CARDIOVASCULAR: Regular. S1 and S2 normal. No appreciable rubs, murmurs or gallops. ABDOMEN: Soft, nontender, and nondistended. There is no rebound, voluntary guarding, or rigidity. : Deferred. No Souza. EXTREMITIES: Non-edematous and not cyanotic. No clubbing. Good capillary refill. SKIN: No skin breakdown. Vital Signs (last 8hr) Date Time Temp Pulse Resp B/P (MAP) Pulse Ox O2 Delivery O2 Flow Rate FiO2 06/08/24 12:00 99 Hi-Flow N/C+ 30 55 06/08/24 11:55 114 29 HFNC Heated System N/Can 30.0 55 06/08/24 11:54 114 26 06/08/24 11:46 119 28 145/73 99 06/08/24 10:46 98.8 112 27 142/73 99 N/C High Flow System 30.0 55 06/08/24 09:46 109 20 117/63 99 N/C High Flow System 30.0 55 06/08/24 08:47 121 35 129/85 94 N/C High Flow System 30.0 55 06/08/24 07:45 99.0 102 19 148/61 97 N/C High Flow System 30.0 60 06/08/24 07:37 98 Hi-Flow N/C+ 30 70 06/08/24 07:28 108 26 06/08/24 07:27 104 29 HFNC Heated System N/Can 30.0 60 06/08/24 06:00 102 28 120/44 100 N/C High Flow System 30.0 60 LABS: Laboratory: Test 06/08/24 03:42 06/07/24 03:36 Range/Units Sodium Level 123 L 136-145 mmol/L Potassium Level 5.6 H 3.5-5.1 mmol/L Chloride Level 91 L 101-111 mmol/L Carbon Dioxide Level 25 21-32 mmol/L Blood Urea Nitrogen 20 H 7-18 mg/dL Creatinine 0.4 L 0.5-1.0 mg/dL Glomerular Filtration Rate Calc 121 >90 mL/min Random Glucose 150 H 70-105 mg/dL Uric Acid 1.2 L 2.6-7.2 mg/dL Total Calcium 8.5 8.5-10.1 mg/dL Triglycerides Level 89 30-200 mg/dL Cholesterol Level 147 <200 mg/dL LDL Cholesterol 92 0-99 mg/dL HDL Cholesterol 41 35-85 mg/dL Thyroid Stimulating Hormone (TSH) 0.29 L 0.36-3.74 uIU/mL White Blood Count 10.2 4.8-10.8 K/uL Red Blood Count 3.99 L 4.00-5.50 MIL/uL Hemoglobin 13.1 12.0-16.0 g/dL Hematocrit 37.0 36-48 % Mean Corpuscular Volume 92.7 79-99 fL Mean Corpuscular Hemoglobin 32.8 27.0-33.0 pg Mean Corpuscular Hemoglobin Concent 35.4 32.0-36.0 g/dL Red Cell Distribution Width 11.4 11.0-15.5 % Platelet Count 237 130-400 K/uL Mean Platelet Volume 9.6 7.5-10.5 fL Immature Granulocyte % (Auto) 0.6 0-1 % Neutrophils (%) (Auto) 94.6 H 40.0-77.0 % Lymphocytes (%) (Auto) 3.0 L 21.0-51.0 % Monocytes (%) (Auto) 1.6 L 3.0-13.0 % Eosinophils (%) (Auto) 0.1 0.0-8.0 % Basophils (%) (Auto) 0.1 0.0-5.0 % Neutrophils # (Auto) 9.7 H 1.8-7.7 K/uL Lymphocytes # (Auto) 0.3 L 1.0-4.8 K/uL Monocytes # (Auto) 0.2 0.1-1.0 K/uL Eosinophils # (Auto) 0.01 0.00-0.70 K/uL Basophils # (Auto) 0.01 0.00-0.20 K/uL Absolute Immature Granulocyte (auto 0.06 0-1 K/uL Nucleated Red Blood Cells 0.0 0.0-0.19 % Current Medications Medications (Trade) Dose Ordered Sig/Julita Route PRN Reason Start Time Stop Time Status Last Admin Dose Admin Acetaminophen (TYLenol 650MG ELIXIR) 650 mg Q6H PRN PO MILD PAIN (1-3) 06/04/24 08:30 07/04/24 08:29 06/08/24 08:17 650 MG Acetaminophen (TYLenol 650MG SUPPOSITORY) 650 mg Q6H PRN RC MILD PAIN (1-3) 05/23/24 20:30 06/22/24 20:29 Acetylcysteine (MUComyst 20% 4ML) 400mg = 2ml [id number] IH 06/02/24 00:00 06/05/24 15:52 DC 06/05/24 11:35 200 MG Albuterol (DUOneb) 1 udvial [id number] IH 05/24/24 00:00 06/23/24 00:00 06/08/24 11:54 1 UDVIAL Azithromycin 250 ml @ 250 mls/hr Q24H IVPB 05/24/24 17:00 05/24/24 14:41 DC Azithromycin 250 ml @ 250 mls/hr Q24H STAT IVPB 05/23/24 17:17 05/24/24 14:41 DC 05/23/24 17:45 250 MLS/HR Benzocaine (Cepacol Sore Throat Lozenge) 1 each Q4H PRN MM SORE THROAT 06/08/24 10:00 07/08/24 09:59 06/08/24 10:55 1 EACH Cefepime HCl (MAXipime 2 gm vial) 2 gm Q12H IVPB 05/24/24 15:00 06/03/24 14:59 DC 06/03/24 03:18 2 GM Ceftriaxone Sodium (ROCEphine 1G INJ) 1 gm Q24H IVPB 05/24/24 17:30 05/24/24 14:41 DC Chlorhexidine Gluconate (Peridex) 15 ml Q6H MM 06/07/24 17:00 06/21/24 16:59 06/08/24 10:50 15 ML Clotrimazole (Mycelex) 10 mg TID MM 06/04/24 21:00 07/04/24 20:59 06/08/24 08:10 10 MG Doxycycline Hyclate 250 ml @ 125 mls/hr Q12H IV 05/24/24 16:30 06/03/24 16:29 DC 06/03/24 04:23 125 MLS/HR Enoxaparin Sodium (Lovenox) 40 mg Q24H SQ 05/23/24 21:00 06/22/24 20:59 06/07/24 21:08 40 MG Famotidine (Pepcid 20mg Vial) 20 mg DAILY IV 05/24/24 09:00 06/23/24 08:59 06/08/24 08:09 20 MG Fluconazole (DiFLUCan 100 mg TAB) 200 mg DAILY PO 06/05/24 09:00 07/05/24 08:59 06/08/24 08:10 200 MG Fluconazole/ Sodium Chloride 100 ml @ 100 mls/hr DAILY IV 05/26/24 09:00 05/27/24 15:57 DC 05/27/24 09:07 100 MLS/HR Furosemide (LASix 20MG VIAL) 20 mg DAILY IV 05/31/24 09:00 06/07/24 13:18 DC 06/03/24 08:38 20 MG Guaifenesin/ Dextromethorphan (RobiTUSSin DM 200/20MG 10ML) 10 ml Q4H PRN PO COUGH 05/23/24 20:30 06/22/24 20:29 06/08/24 08:16 10 ML Lactated Ringer's (Lactated Ringers 1000ml) 500 ml ONCE IV 06/02/24 20:00 06/02/24 19:54 DC Levofloxacin/ Dextrose 100 ml @ 100 mls/hr Q24H IV 05/24/24 15:00 05/24/24 16:16 DC Magnesium Sulfate 50 ml @ 0 mls/hr PROTOCOL PRN IV hypomagnesemia 05/28/24 08:00 06/27/24 07:59 Methylprednisolone Sodium Succinate (Solu-medROL 40MG) 20 mg Q12H IVP 06/05/24 07:00 07/05/24 06:59 06/08/24 06:04 20 MG Methylprednisolone Sodium Succinate (Solu-medROL 40MG) 40 mg Q12H IVP 05/28/24 18:00 05/29/24 16:45 DC 05/29/24 05:32 40 MG Methylprednisolone Sodium Succinate (Solu-medROL 40MG) 40 mg Q6H IVP 05/29/24 16:30 06/04/24 16:44 DC 06/04/24 11:13 40 MG Methylprednisolone Sodium Succinate (Solu-medROL 40MG) 40 mg Q6H IVP 06/04/24 18:00 06/05/24 00:24 DC 06/04/24 23:48 40 MG Methylprednisolone Sodium Succinate (Solu-medROL 40MG) 40 mg Q8H IVP 05/24/24 01:00 05/25/24 21:51 DC 05/25/24 17:28 40 MG Methylprednisolone Sodium Succinate (Solu-medROL 40MG) 60 mg Q6H IVP 05/25/24 22:00 05/28/24 02:25 DC 05/27/24 23:55 60 MG Methylprednisolone Sodium Succinate (Solu-medROL 40MG) 60 mg Q6H IVP 05/28/24 06:00 05/28/24 08:27 DC 05/28/24 06:47 60 MG Metronidazole/ Sodium Chloride (flaGYL) 500 mg Q8H IV 05/25/24 22:00 05/25/24 21:56 DC Ondansetron HCl (zoFRAN 4MG INJ) 4 mg Q6H PRN IV NAUSEA/VOMITING 05/23/24 20:30 06/22/24 20:29 Potassium Chloride 100 ml @ 100 mls/hr AD PRN IV POTASSIUM PROTOCOL 05/28/24 08:00 06/27/24 07:59 Potassium Chloride (K-Dur/Klor-Con 20meq) 20 meq AD PRN PO POTASSIUM PROTOCOL 05/28/24 08:00 06/27/24 07:59 Potassium Chloride (KCl 10% Elixir 20meq/15ml) 20 meq AD PRN PO POTASSIUM PROTOCOL 05/28/24 08:00 06/27/24 07:59 Sodium Chloride 500 ml @ 500 mls/hr Q1H IV 06/02/24 20:00 06/02/24 20:59 DC 06/02/24 21:34 500 MLS/HR Sodium Chloride 1,000 ml @ 75 mls/hr [id number] IV 06/07/24 13:30 07/07/24 13:29 06/08/24 02:57 75 MLS/HR Sodium Chloride (Sodium Chloride) 1,000 mg BIDAC PO 06/07/24 16:30 07/07/24 16:29 06/08/24 08:10 1,000 MG Sodium Zirconium Cyclosilicate (Lokelma) 5 gm DAILY10 PO 06/08/24 10:30 06/10/24 10:29 06/08/24 10:50 5 GM Trimethoprim/ Sulfamethoxazole (BactRIM DS) 1 tab BID PO 05/26/24 21:00 05/29/24 16:18 DC 05/29/24 08:07 1 TAB Trimethoprim/ Sulfamethoxazole (BactRIM DS) 2 tab TID PO 05/29/24 16:30 06/05/24 20:59 DC 06/05/24 14:55 2 TAB Trimethoprim/ Sulfamethoxazole (BactRIM DS) 2 tab TID PO 06/06/24 09:30 09/11/24 09:29 06/08/24 08:10 2 TAB DIAGNOSTICS / RADIOLOGY: [ ] ASSESSMENT: Acute hypoxemic respiratory failure, POA Bilateral lower lobe bacterial pneumonia + MRSA POA, +Azra Suspected PCP PNA based on CT findings vs viral/Atypical PNA . POA HIV positive (preliminary report, confirmatory test nonreactive) POA Normocytic anemia, not POA Neutrophilia, POA Hyperglycemia, POA Obesity BMI of 32.3 Former smoker Acute cystitis, POA Fatty liver, POA Moderate hypoalbuminemia POA Previous COVID-19 infection PLAN: Continue ICU Continue the patient on BiPAP alternating with high-flow oxygen Continue the patient on high-dose steroids Continue Bactrim Continue doxycycline Continue lasix 20mg q24h Continue broad-spectrum antibiotic with doxycycline, and cefepime IV Continue to follow Pulmonary input recommendation Continue to follow infectious disease input and recommendation Follow serology test for toxoplasma gone the Follow chest x-ray Continue bronchodilators per respiratory therapist Replace electrolytes IV per protocol A.m. labs GI and DVT prophylaxis. Further orders to follow based on the above results Infectious disease consulted, appreciate recommendations Disposition: Remains admitted to the ICU, pending improvement in clinical condition. Total ICU time spent greater than 30 minutes. HEATHER RICE MD Jun 08, 2024 13:34
[2024-06-08] MEDS: BisaCODYL 10 MG SUPP.RECT RC PRN (14:32)
--- NOTE | 2024-06-08 14:44 | PN ---
INFECTIOUS DISEASE PROGRESS NOTE Date of Service: Jun 08, 2024 SUBJECTIVE: This is a 49-year-old female patient who was admitted with chief complaint of shortness of breaths. A chest x-ray done on admission showed left lower lung pneumoniae. A CT chest showed bilateral pulmonary infiltrates but no evidence of PE. 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 Patient was seen and examined at bedside in the ICU room 208. Patient is awake, alert and oriented x 3. Patient continues on fluconazole and Mycelex for oral lesion and oral candidiasis. Cepacol lozenges has also been added to the regimen patient reported improvement on the pain. Also continue on Bactrim DS. On high-flow oxygen at 30 L and 55%. Family members visiting at bedside. We will continue to follow patient's care. PHYSICAL EXAM EYES: Anicteric. Pupils equal and reactive. HENT: No oral thrush seen, moist Oral mucosa. Oral candidiasis. NECK: Supple, no JVD or thyromegaly. LUNGS: Lung sounds diminished. Dyspnea. On high-flow Oxygen support. CARDIOVASCULAR: S1, S2 regular. No murmur heard. ABDOMEN: Soft, non tender, bowel sounds present, no organomegaly. CENTRAL NERVOUS SYSTEM: Awake, alert, oriented x 3. SKIN: No rashes, no swelling. LYMPHATICS: No peripheral lymphadenopathy. MUSCULOSKELETAL: No joint swelling, erythema or tenderness. EXTREMITIES: No cyanosis or clubbing. BACK: No deformity, no pressure ulcer. GENITOURINARY: No dysuria or hematuria. Vital Sign (Last 12 Hours) 06/08/24 06/08/24 06/08/24 06/08/24 03:00 04:00 04:00 05:00 Temp 99.0 Pulse 101 102 100 Resp 26 26 27 B/P (MAP) 108/58 114/71 113/38 Pulse Ox 100 97 100 100 O2 Delivery BIPAP Bi-PAP+ BIPAP BIPAP FiO2 70 70 70 70 06/08/24 06/08/24 06/08/24 06/08/24 06:00 07:27 07:28 07:37 Pulse 102 104 108 Resp 28 29 26 B/P (MAP) 120/44 Pulse Ox 100 98 O2 Delivery N/C High Flow System HFNC Heated System N/Can Hi-Flow N/C+ O2 Flow Rate 30.0 30.0 30 FiO2 60 60 70 06/08/24 06/08/24 06/08/24 06/08/24 07:45 08:47 09:46 10:46 Temp 99.0 98.8 Pulse 102 121 109 112 Resp 19 35 20 27 B/P (MAP) 148/61 129/85 117/63 142/73 Pulse Ox 97 94 99 99 O2 Delivery N/C High Flow System N/C High Flow System N/C High Flow System N/C High Flow System O2 Flow Rate 30.0 30.0 30.0 30.0 FiO2 60 55 55 55 06/08/24 06/08/24 06/08/24 06/08/24 11:46 11:54 11:55 12:00 Pulse 119 114 114 Resp 28 26 29 B/P (MAP) 145/73 Pulse Ox 99 99 O2 Delivery HFNC Heated System N/Can Hi-Flow N/C+ O2 Flow Rate 30.0 30 FiO2 55 55 Intake & Output (last 24hrs) 06/07/24 06/07/24 06/08/24 15:00 23:00 07:00 Intake Total 1490.0 ml 765.0 ml Output Total 2900 ml 600 ml Balance -1410.0 ml 165.0 ml LABS: Laboratory: Test 06/08/24 03:42 06/07/24 03:36 Range/Units Sodium Level 123 L 136-145 mmol/L Potassium Level 5.6 H 3.5-5.1 mmol/L Chloride Level 91 L 101-111 mmol/L Carbon Dioxide Level 25 21-32 mmol/L Blood Urea Nitrogen 20 H 7-18 mg/dL Creatinine 0.4 L 0.5-1.0 mg/dL Glomerular Filtration Rate Calc 121 >90 mL/min Random Glucose 150 H 70-105 mg/dL Uric Acid 1.2 L 2.6-7.2 mg/dL Total Calcium 8.5 8.5-10.1 mg/dL Triglycerides Level 89 30-200 mg/dL Cholesterol Level 147 <200 mg/dL LDL Cholesterol 92 0-99 mg/dL HDL Cholesterol 41 35-85 mg/dL Thyroid Stimulating Hormone (TSH) 0.29 L 0.36-3.74 uIU/mL White Blood Count 10.2 4.8-10.8 K/uL Red Blood Count 3.99 L 4.00-5.50 MIL/uL Hemoglobin 13.1 12.0-16.0 g/dL Hematocrit 37.0 36-48 % Mean Corpuscular Volume 92.7 79-99 fL Mean Corpuscular Hemoglobin 32.8 27.0-33.0 pg Mean Corpuscular Hemoglobin Concent 35.4 32.0-36.0 g/dL Red Cell Distribution Width 11.4 11.0-15.5 % Platelet Count 237 130-400 K/uL Mean Platelet Volume 9.6 7.5-10.5 fL Immature Granulocyte % (Auto) 0.6 0-1 % Neutrophils (%) (Auto) 94.6 H 40.0-77.0 % Lymphocytes (%) (Auto) 3.0 L 21.0-51.0 % Monocytes (%) (Auto) 1.6 L 3.0-13.0 % Eosinophils (%) (Auto) 0.1 0.0-8.0 % Basophils (%) (Auto) 0.1 0.0-5.0 % Neutrophils # (Auto) 9.7 H 1.8-7.7 K/uL Lymphocytes # (Auto) 0.3 L 1.0-4.8 K/uL Monocytes # (Auto) 0.2 0.1-1.0 K/uL Eosinophils # (Auto) 0.01 0.00-0.70 K/uL Basophils # (Auto) 0.01 0.00-0.20 K/uL Absolute Immature Granulocyte (auto 0.06 0-1 K/uL Nucleated Red Blood Cells 0.0 0.0-0.19 % ASSESSMENT: Acute hypoxic respiratory failure, requiring high-flow oxygen support. Pneumocystis carinii pneumonia. Infection with methicillin-resistant Staphylococcus aureus. Positive HIV test. Leukocytosis. Obesity. Oral candidiasis. PLAN: Continue Bactrim DS b.i.d p.o.. Continue fluconazole p.o. Continue Mycelex. Continue GI prophylaxis. Continue oxygen support, currently on high-flow oxygen. Continue bronchodilators. Continue DVT prophylaxis. This case was reviewed and discussed with my supervising physician and the above assessment and plan was formulated and agreed upon. ATTESTATION BY PHYSICIAN I have seen and examined the patient. I reviewed the documentation, medical decision making, and treatment plan as noted by the mid-level provider above. I agree with the findings and plan of care. [place] MD, [facility] Jun 08, 2024 14:44
--- NOTE | 2024-06-08 15:00 | NUR ---
C/O OF CONSTIPATION. SUPPOSITORY ADM.
[2024-06-09] VITALS (36 sets, daily range): BP systolic 104–138; BP diastolic 49–79; PULSE 92–142; RESP 20–51; TEMP 98.6–102.8; O2SAT 91–100
[2024-06-09 04:43] LABS: BASOPHILS # (AUTO) 0.01 K/uL (0.00-0.20); BASOPHILS % (AUTO) 0.1 % (0.0-5.0); HEMATOCRIT 32.7 % (36-48); IMMATURE GRANULOCYTE ABSOLUTE 0.05 K/uL (0-1); LYMPHOCYTES # (AUTO) 0.4 K/uL (1.0-4.8); LYMPHOCYTES % (AUTO) 4.8 % (21.0-51.0); MEAN CORPUSCULAR HEMOGLOBIN 32.6 pg (27.0-33.0); MEAN CORPUSCULAR HGB CONC 35.5 g/dL (32.0-36.0); MEAN CORPUSCULAR VOLUME 91.9 fL (79-99); MONOCYTES # (AUTO) 0.2 K/uL (0.1-1.0); MONOCYTES % (AUTO) 2.6 % (3.0-13.0); NEUTROPHILS # (AUTO) 8.5 K/uL (1.8-7.7); PLATELET COUNT (AUTO) 195 K/uL (130-400); RED BLOOD CELL COUNT(AUTO) 3.56 MIL/uL (4.00-5.50); RED CELL DISTRIBUTION WIDTH 11.3 % (11.0-15.5); WHITE BLOOD COUNT (AUTO) 9.2 K/uL (4.8-10.8)
[2024-06-09 04:52] LABS: CREATININE 0.4 mg/dL (0.5-1.0); POTASSIUM 4.4 mmol/L (3.5-5.1)
[2024-06-09] MEDS: SODIUM CHLORIDE 1,000 MG TAB PO SCH (07:29)
--- NOTE | 2024-06-09 09:13 | PN ---
[facility] PROGRESS NOTE Date Patient Seen: Jun 09, 2024 Time of Visit: 09:13 Supervising Physician: Dr. Ramiro Kohler Primary Care Physician: Stu Foss MD Outpatient Specialists: [ ] Inpatient Consults: Pulmonology PROBLEM LIST: Severe ARDS Severe Sepsis Acute hypoxemic respiratory failure, POA requiring high Flow with 80% Bilateral lower lobe bacterial pneumonia + MRSA POA, +Azra Confirmed PCP PNA per Ag (serology), POA New HIV/AIDS positive POA Bactrim induced hyponatremia and hyperkalemia Normocytic anemia, not POA Neutrophilia, POA Hyperglycemia, POA Obesity BMI of 32.3 Former smoker Fatty liver, POA Moderate hypoalbuminemia POA Previous COVID-19 infection INTERVAL HISTORY: 05/25/2024: At the time of my evaluation, the patient was lying in bed. She is currently on a non-rebreather mask. She reports feeling slightly better today. No laboratory data for review today. No new complaint. 05/28-patient is awake alert and oriented x3 currently receiving nebulizer treatment. She has been tolerating BiPAP overnight and currently on 10 L via Oxymizer which is less than 2 days ago which was 15 liters/minute saturating 96%. Patient has been afebrile and hemodynamically stable. Patient reports good urine output and bowel movements x2 yesterday. On laboratory white count is normal neutrophils the same as yesterday 89.8. Chemistry kidneys are doing good creatinine 0.5 GFR 114 glucose 150 mg/dL we will order hemoglobin A1c for tomorrow on chest x-ray. We will continue to follow ID recommendation. 05/29/24-patient is awake alert and oriented x3. She is sitting up on recliner chair with high FiO2 requirements 10 L via Oxymizer. We will increase Solu- Medrol to 40 mg IV q.6 hours and continue with doxycycline cefepime and increased Bactrim to full-dose two tablets p.o. TID. Patient's denies chills, chest pain palpitations. However she does report continues shortness for breath and gets winded easily with a few steps to the restroom. Patient to continue BiPAP at night and p.r.n.. Chest x-ray worsening left lower lobe pneumonia. 05/30/24- patient is awake alert and oriented x3 sitting up in recliner chair. Patient is easily winded with conversation currently on non-rebreather at 100% FiO2. His hypoxemia is worsening with the a pH of 7.45 pCO2 of 38 PO2 of 68.7 and a bicarb 26. We will have patient transferred to ICU and we will oxygen in the following order: with high-flow if high flow not enough will start high flow + NRB and if not enough then switch to bipap. She is high risk for decompensation although patient reports she does not feel any increased shortness of breath she is easily winded and tachycardic with ambulating short distance to the restroom. On 2D echo patient has not LVEF of greater than 55% with mild concentric left ventricular hypertrophy left ventricular diastolic function is normal. 05/31/24- Pt is awake alert and oriented x 3 she reamins in the icu due to high risk for resp decompensation. She is hemodynamically stable blood pressure 105/50 O2 sat of 95% with high-flow on 30 L with a FiO2 of 90% respiratory rate is 28 heart rate of 100 and afebrile. Patient gets easily winded when holding a conversation. Encouraged to lay down prone. She continues with high dose steroids Solu-Medrol 40 q.6 hours. Urine output 2.9 L in last 24 hours, WBCs are 14.6 H&H is 12.9/36.6 with a platelet count of 304 K. on chemistry sodium is 134 chloride is 98 BUN of 21 creatinine of 0.5 and GFR of 114 glucose of 151 mg/dL LDH is 483 albumin 2.6. On serology Pneumocystis sandra antigen +. Clinical findings and laboratory findings consistent with HIV/AIDS , ID is on the case and we will follow his recommendations. Per patient she has talked to her partner about her results, I educated her that is very important for her sexual partners to be notified and so they can get checked for HIV. Pt ve rbalized understanding. On chest XR left lower lobe infiltrates consistent with pneumonia. 06/01/24-patient sitting up in chair sleeping but was easily arousable to voice. Awake alert and oriented x3,. Currently on high-flow O2 with a FiO2 of 80%. No major overnight events per RN. she is hemodynamically stable and afebrile. Urine output is good 2.9 L in the last 24 hours. WBCs are 12.4 trended down from yesterday neutrophils are 92.4. On chemistry sodium 134 with a potassium of 5.4 chloride of 96 BUN of 22 creatinine of 0.6 and GFR of 109 mg/dL ALT 86 albumin 2.5. Patient continues on doxycycline, cefepime, and Bactrim DS two tablets 3 times a day. We will continue follow ID recommendations 06/02/24-patient is awake alert and oriented x3 sitting up in recliner chair she has been proned this morning and tolerated well saturating 100% on high flow of with 80% FiO2. Now sitting up and saturating 92%. She reports that she is now able to expectorate some sputum. Patient has a temperature 99.9 she is sinus tachy in the monitor 115 beats per minute, respiratory rate of 28 and hemodynamically stable. Pancultured. Antibiotics per ID. Urine output is 1 L in the last 24 hours with a balance of -1.5L WBCs today are 16.9 neutrophils. We will order 500mls bolus of LR if no improvement we will give another bolus. Chemistry sodium was 132 chloride 96 BUN of 26, potassium is 4.8 BUN of 26 creatinine 0.6 GFR of 109 mg/dL albumin 2.6. we will order lactic. Per Dr Garcia recommends Vancomycin, this was communicated with ID. 04/03/25-patient with no major overnight events as per RN she is a little tachycardic in the 113 beats per minute, saturating 96% with FiO2 of 80% on high-flow nasal cannula with 30 L. Patient is high risk for intubation and I informed her of this encouraged her to have some Advance directive prior to requiring emergency intubation. She has accepted family welfare social work professor consult for advance directive and agreed to let her kids know about her condition and discuss w/ them her wishes and theirs before signing any advance directives. T- max overnight 99.7 with a T low of 98.1. She is hemodynamically stable. She denies feeling any worsening shortness of breath. Patient denies any nausea vomiting or diarrhea. Urine output 2.5 L in the last 24 hours with a-610 mL balance. WBCs trending down 13.5 today H&H stable 12.8/36.7 neutrophils are 91.3. Chemistries sodium 132 chloride of 96 carbon dioxide 26 BUN 23 creatinine of 0.5 with a GFR of 114 random glucose 143 mg/dL lactic acid trended down to 3.0 ABG with a pH of 7.44 pCO2 of 35 PO2 decrease to 58 PF Ratio 72.5, we will continue to encourage proning and add non-rebreather on top of high-flow nasal cannula. 06/04/2024: At the time of my evaluation, the patient was sitting up in bed. She remains on a non-rebreather mask over a high-flow nasal cannula. Oxygen saturation is optimal arranging between 93 to 98%. No febrile events. Laboratory data showed a improving WBC count down to 13.3. Chemistry panel showed a low-sodium count of one going to nine with a potassium of 4.2, chloride is 93, CO2 of 97, BUN is 28, creatinine of 0.6 and a GFR of 119. No new microbiology data for review. Chest x-ray today showed bilateral pulmonary infiltrates that persists. The patient continues on antibiotic therapy guided by the Infectious Disease specialist. No new complaint. 06/05/2024: At the time of my evaluation, the patient is lying in bed. The staff nurse reports no acute events overnight. The patient remains on high-flow nasal cannula 30% and backup non-rebreather mask 80%. Vital signs today which stable blood pressure, very labile heart rate, respiratory rate and SpO2. On labs today, the patient had a improved WBC count down to 11.1. Chemistry panel showed a downward trend of sodium to 128. Potassium 4.4, chloride 94 and CO2 of 27. Renal parameters remain stable. Microbiology data showed no new studies. No new imaging for review today. Patient has no new complaint. 06/06/2024: At the time of my evaluation, the patient is lying in bed. The patient remains on high-flow nasal cannula 30% and backup non-rebreather mask 80%. Vital signs today which stable blood pressure, tachypnea and tachycardia. Spo2 ranging in the upper 90's. On labs today, the patient had a improved WBC. Chemistry panel showed a odium to 129. Renal parameters remain stable. Microbiology data showed no new studies. No new imaging for review today. Swathi stewart has no new complaint. 06/07/2024: At the time of my evaluation, the patient was lying in bed. The staff nurse reports no acute events overnight. The patient remains with high- flow nasal cannula and denies any shortness of breath. The vital signs today still showing tachypnea and tachycardia with blood pressure of 127/77 and SpO2 of 100%. Laboratory data of significance, showed a drop in sodium count of 123 and chloride of 90. Otherwise, the remaining laboratory parameters are unremarkable. There was no new microbiology data for review. No new chest imaging. Medication list reviewed showed patient continues on Bactrim DS and fluconazole. She remains on Solu-Medrol and bronchodilator therapy with DuoNeb. No new complaint. 06/08/2024: At the time of my evaluation, the patient is lying in bed. The staff nurse reports no major events overnight. She remains awake alert and oriented x4. On the monitor, the patient is normotensive without any need of pressure support . She is sinus tach rate in the low 100s. Pulse oximetry was in the high 90s to 100% on high-flow nasal cannula 30 L 50% FiO2. On GI, patient is feeding orally, no report of nausea, vomiting or diarrhea. Genitourinary, the patient has a intake of 2255.0 with a out of 3500 and a n egative balance of 1245. Functional aleman, the patient is mobile, but very weak to exit the bed unassisted. On skin, the patient has multiple oral herpetic appearing lesions. The staff nurse reports no acute events overnight. Laboratory data review today, showed a sodium of 133, potassium of 5.6, chloride of 91, CO2 of 25, BUN is 20 with a creatinine of 0.4. Blood glucose of 150. TSH of 0.29 and a uric acid of 1.2. No other complaint. 06/09/2024: At the time of my evaluation, the patient is lying in bed. The staff nurse reports no major events overnight, but is febrile today 100.0. She remains awake alert and oriented x4. On the monitor, the patient is normotensive without any need of pressure support . She is sinus tach rate in the low 100s. Pulse oximetry was in the high 90s to 100% on high-flow nasal cannula 30 L 60% FiO2. On GI, patient is feeding orally, no repeat of nausea vomiting or diarrhea. Genitourinary, the patient has a intake of 2685.0 with a out of 1700 and a positive balance of 945. Functional aleman, the patient is mobile, but very weak to exit the bed unassisted. On skin, the patient has multiple oral h erpetic appearing lesions. The staff nurse reports no acute events overnight. Laboratory data review today, showed a sodium of 130, potassium of 4.4, chloride of 96, CO2 of 28, BUN is 15 with a creatinine of 0.4. No other complaint. REVIEW OF SYSTEMS: General: No malaise or fever. Neurological: No fainting episodes or seizures. HEENT: No nasal congestion or nasal secretion. Respiratory: Yes for cough, yellow phlegm, shortness for breath on minimal exertion. Cardiac: No chest pain or palpitations. Gastrointestinal: No vomiting or diarrhea. Genitourinary: No dysuria hematuria. Skin: No rashes or lesions. Hematological: No bruises or bleeding. Musculoskeletal: No joint pains or arthralgias. Psychiatric: No depression or panic attacks. PHYSICAL EXAM: GENERAL: alert, weak, awake oriented x 3 HEENT: EOMI, Sclera non icteric, moist mucosa NECK: Supple, no JVD, trachea midline LUNGS: Fine crackles to bilateral lower posterior bases lung sounds. No wheezes HEART: Regular rate and rhythm. Normal S1 and S2, without murmurs ABD: Abdomen soft, nontender. Bowel sounds present EXT: No clubbing cyanosis or edema NEURO: Alert and oriented to person, follows commands Vital Signs (last 8hr) Date Time Temp Pulse Resp B/P (MAP) Pulse Ox O2 Delivery O2 Flow Rate FiO2 06/09/24 07:12 115 29 HFNC Heated System N/Can 30.0 50 06/09/24 06:52 103 30 70 06/09/24 06:51 102 26 06/09/24 06:00 101 27 108/63 100 BIPAP 70 06/09/24 05:00 92 25 123/71 100 BIPAP 70 06/09/24 04:00 100.0 97 25 115/73 100 BIPAP 70 06/09/24 04:00 100 Bi-PAP+ 70 06/09/24 03:43 102 25 70 06/09/24 03:00 103 26 112/68 100 BIPAP 70 06/09/24 02:00 104 24 104/62 100 BIPAP 70 LABS: Hematology Labs: Test 06/09/24 04:07 Range/Units White Blood Count 9.2 4.8-10.8 K/uL Red Blood Count 3.56 L 4.00-5.50 MIL/uL Hemoglobin 11.6 L 12.0-16.0 g/dL Hematocrit 32.7 L 36-48 % Mean Corpuscular Volume 91.9 79-99 fL Mean Corpuscular Hemoglobin 32.6 27.0-33.0 pg Mean Corpuscular Hemoglobin Concent 35.5 32.0-36.0 g/dL Red Cell Distribution Width 11.3 11.0-15.5 % Platelet Count 195 130-400 K/uL Mean Platelet Volume 9.3 7.5-10.5 fL Immature Granulocyte % (Auto) 0.5 0-1 % Neutrophils (%) (Auto) 92.0 H 40.0-77.0 % Lymphocytes (%) (Auto) 4.8 L 21.0-51.0 % Monocytes (%) (Auto) 2.6 L 3.0-13.0 % Eosinophils (%) (Auto) 0.0 0.0-8.0 % Basophils (%) (Auto) 0.1 0.0-5.0 % Neutrophils # (Auto) 8.5 H 1.8-7.7 K/uL Lymphocytes # (Auto) 0.4 L 1.0-4.8 K/uL Monocytes # (Auto) 0.2 0.1-1.0 K/uL Eosinophils # (Auto) 0.00 0.00-0.70 K/uL Basophils # (Auto) 0.01 0.00-0.20 K/uL Absolute Immature Granulocyte (auto 0.05 0-1 K/uL Nucleated Red Blood Cells 0.0 0.0-0.19 % White Cell Morphology Comment See comments Chemistry Labs: Test 06/09/24 04:07 06/08/24 03:42 Range/Units Sodium Level 130 L 136-145 mmol/L Potassium Level 4.4 3.5-5.1 mmol/L Chloride Level 96 L 101-111 mmol/L Carbon Dioxide Level 28 21-32 mmol/L Blood Urea Nitrogen 15 7-18 mg/dL Creatinine 0.4 L 0.5-1.0 mg/dL Glomerular Filtration Rate Calc 121 >90 mL/min Random Glucose 144 H 70-105 mg/dL Total Calcium 8.1 L 8.5-10.1 mg/dL Uric Acid 1.2 L 2.6-7.2 mg/dL Triglycerides Level 89 30-200 mg/dL Cholesterol Level 147 <200 mg/dL LDL Cholesterol 92 0-99 mg/dL HDL Cholesterol 41 35-85 mg/dL Thyroid Stimulating Hormone (TSH) 0.29 L 0.36-3.74 uIU/mL DIAGNOSTICS / RADIOLOGY RESULTS: [ ] PLAN Follow ID recommendations Encouraged to prone herself Maintain O2 sats above 92% Monitor temperature trend Continue high-dose steroids Duo nebs q.6 hours Abx Per ID trend Lactic acid. Due to severe sob will not do 30ml/kg bolus at one time if pt not hypotensive to avoid worsening resp status Instead will try pulsating boluses of 500 mL of NS as tolerated. Follow respiratory status closely as she is high risk for decompensation. family welfare social work professor to discuss advance directives. Monitor resp status closely high risk for intubation, Pt will likely not come o ff mechnical ventilation easily and higher risk of HAP due to debilitated immune system so will try other measures of oxygenation prior to intubation for now. We will place NRB on top of already High Flow NC with fio2 of 80%. 06/04/2024: For now, going to continue current management for the patient. We are going to continue with oxygen supplementation as ordered and monitor the saturation. The patient will continue on antibiotic therapy as guided by the Infectious Disease specialist. Currently, the plan is to continue with Bactrim double strength b.i.d. was started on fluconazole 200 mg p.o. daily and cefepime, doxy was discontinued. We will discuss with the Infectious Disease specialist regarding the benefit of Zithromax for MAC. Considering the patient has been on extended course of steroid therapy, I am going to decrease the dose of the Solu-Medrol to 20 q.12h. Appreciate the input of the true specialist. We will monitor the patient's progress and response to management. We will repeat surveillance labs in the morning. We will continue to provide general supportive care, GI and DVT prophylaxis. Further orders per attending MD and hospital course. 06/05/2024: For now, going to continue current management for the patient. She will continue on oxygen supplementation as ordered and we will adjust as necessary. Steroid therapy was decreased overnight. She is currently on Solu- Medrol 20 mg IV q.12. She will continue on antibiotics per the guidance of Infectious Disease specialist, currently receiving Bactrim DS and fluconazole. I appreciate the input of treating specialist. We will monitor the patient's progress and response to management. Continue to provide general supportive care, GI and DVT prophylaxis. Further orders per attending MD and hospital course. 06/06/2024: For now, going to continue current management for the patient. We are going to continue antibiotic therapy currently on Bactrim DS two tabs t.i.d. and fluconazole. The steroid dose was decreased yesterday to Solu-Medrol 20 mg IV q.12. We will monitor the patient's progress and response to management. We will appreciate the input of the treating specialist. We will continue to provide general supportive care, GI and DVT prophylaxis. Further orders per attending MD and hospital course. 06/07/2024: For now, we are going to continue current management for the patient. Considering the drop in sodium count, I am going to put the patient on IV NS at 75 cc/hour. We will also start the patient on sodium chloride tabs 1 g p.o. b.i.d. before meals. We will administer one time dose now. I am going to request a TSH level, cortisol level a.m., uric acid and lipids with a.m. labs. We will continue to monitor the sodium count. The patient will continue antibiotic therapy as guided by the Infectious Disease specialist. We will repeat surveillance labs in the morning. I am going to request a repeat chest x-ray for the morning. We will continue to provide general supportive care, GI and DVT prophylaxis. Further orders per attending MD and hospital course. 06/08/2024: For now, we are going to continue current management for the patient. We will continue oxygen supplementation via the high-flow nasal cannula 30 L 60% FiO2. Considering the patient is at 100%, I am going to discuss with the RT to wean the supports maintaining SpO2 above 92% . We will continue to monitor the vital sign trend and treat accordingly. We will monitor the oral intake and supplement if necessary. We will also continue to monitor the I's and O's with regards to the electrolyte imbalance, the low-sodium count and elevated potassium count we will be attributed to the use of high-dose Bactrim. We will supplement the sodium with sodium chloride tabs 1000 mg twice a day with meals. I am also going to start the patient on Lokelma5 mg. We will monitor the electrolyte trend. The patient will continue on high-dose Bactrim, fluconazole, Mycelex and Solu-Medrol. She was started on Peridex for oral care. We will continue to provide general supportive care, GI and DVT prophylaxis. Further orders per attending MD and hospital course. 06/08/2024: For now, we are going to continue current management for the patient. We will continue oxygen supplementation via the high-flow nasal cannula 30 L 50% FiO2. We will continue to monitor the vital sign trend and treat accordingly. We will monitor the oral intake and supplement if necessary. We will also continue to monitor the I's and O's. We will supplement the sodium with sodium chloride tabs 1000 mg twice a day with meals. I am also going to hold the Lokelma today. We will monitor the electrolyte trend. The patient will continue on high-dose Bactrim, fluconazole, Mycelex and Solu-Medrol. We will continue to provide general supportive care, GI and DVT prophylaxis. Further orders per attending MD and hospital course. NEURO: Minimize central acting medications as possible. Fall Precautions. Well lighted room through the day and minimize interruptions through the night to prevent acute delirium. PULMONARY: Supplemental 02 as needed Titrate Fio2 to keep Spo2 > or = 90% DuoNebs and CPT as needed IS hourly while awake for pulmonary hygiene Out of bed to chair as tolerated CARDIOVASCULAR: Follow hemodynamics. Titrate vasopressor to keep MAP >65 or systolic blood pressure >95mmHg telemetry Drips none LINES: PIV GI & NUTRITION: Continue nutritional support Aspirations precautions Prokinetic agents and laxatives as needed KIDNEYS & ELECTROLYTES: Strict monitoring of intake and output Daily weights Avoid nephrotoxic agents Monitor electrolytes and replace as needed Goal urine output of 30mL/hr or 0.5mL/kg/hr ENDOCRINE: Maintain blood glucose between 100-180 at all times. Insulin sliding scale for blood glucose management INFECTIOUS DISEASE: Trend temperature. Clarke-culture if febrile. Micro: [ ] Sputum culture from 05/23/24 positive for MRSA, Betty albicans Pneumocystis carinii antigen positive Panculture: 06/02/24 Blood cultures Urine cultures Respiratory culture Antibiotics: Bactrim DS Fluconazole Mycelex HEMATOLOGY & COAGULATION: Monitor H&H. Keep Hgb > 7 Transfuse 1 unit of PRBC for Hgb < 7 Transfuse 1 pack of platelets of platelets < 20, 000 Watch for any signs and symptoms of bleeding SKIN: Pressure ulcer prevention per facility protocol Rehab: PT/OT Prophylaxis: GI: Pepcid DVT: Lovenox Code Status: Full Resuscitation Disposition: ICU Other: Total patient care time exceeds 45 minutes excluding all procedures. Case was discussed and seen with my supervising physician. The above plan was formulated and agreed upon. DAYRON RUBIN NP Jun 09, 2024 09:13
--- NOTE | 2024-06-09 13:27 | PN ---
[facility] PROGRESS NOTE Date of Service: Jun 09, 2024 Time of Service: 13:22 SUBJECTIVE: [ ] Ms. Abdullahi is a 49-year-old female that was seen and examined today on 05/23/2024. Patient is a good historian and personal health. Patient's son Dagoberto Salcido is at bedside. Patient states that she came to the emergency department with a chief complaint of shortness of breath. Onset was two weeks ago. Location is to lungs. Duration is on and off. Character is described as "easily running out of air." Initially shortness and breath was only aggravated with climbing one or two flights of stairs but symptoms have progressively worsened and patient becomes short of breath even standing or walking short distances. There was no alleviating factors however previously symptoms were being controlled with daily morning albuterol nebulizer treatments. Patient denies any associated chest pain or dizziness. Patient reports an episode of COVID in December 2023. emergency department CBC unremarkable, chemistry unremarkable, urinalysis unremarkable, influenza screen negative, COVID negative, blood gas shows PO2 less than 45. Chest x-ray shows left lower lung pneumonia and minimal right lung base atelectasis. Upon arrival to the emergency department patient was placed on a BiPAP due to respiratory distress. 05/24/2024-patient was seen and examined at the bedside, still on BiPAP. Patient is able to speak, and says she feels much better than before. Patient says after COVID in December she developed severe bronchitis and she was on Solu-Medrol and albuterol, which did not help her much and later she had high fevers and shortness of breath which is when she came to the ED.Vitals afebrile pulse 76, RR 38 tachypneic , blood pressure 115/68, pulse oxygen 99 on BiPAP flow of 60. On ABG pH 7.47, pCO2 29, PO2 109.4, oxygen saturation 98.3. [id number] potassium 4.1 BUN15 creatinine 0.5 GFR 114. We will closely monitor the patient. [employer] consult noted waiting on the recommendation 05/25/24 patient was seen and examined and case discussed with RN and family by the bedside. She was breathing better today. She has been on BiPAP all night but now he was on 100% non-rebreather with further efforts to continue to wean the oxygen requirements down. 05/27/24 patient is seen and examined at bedside, acute events overnight, case discussed with the RN, BP 131/64, afebrile, saturating 96-97% via Ventimask, FiO2 40%. The patient admits cough productive of clear phlegm. Serology tests reviewed, HIV preliminary positive, discussed with the patient. 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 We will continue the patient on IV antibiotics, continue fluconazole, continue to follow Pulmonary and ID input and recommendations. After provided in the preliminary results of HIV test, she denies any suicidal or homicidal ideations. 05/28 patient has been seen and examined, no acute events overnight, case discussed with the RN, during my visit patient is sitting comfortably in the chair, hemodynamically stable, off Ventimask, currently on 10 L via nasal cannula, saturating 98%, tolerated BiPAP overnight. she feels better, less shortness a breath, still admits cough productive of yellow phlegm. No chest pain. Getting IV antibiotics during my visit. HIV P24 antigen, nonreactive. We will continue to follow Pulmonary and Infectious Disease input and recommendations. 05/29 patient has been seen and examined, no acute events overnight, case discussed with the RN, during my visit patient is sitting comfortably in the chair, hemodynamically stable, remains on 10 L via nasal cannula, saturating 98% , still admits cough productive of yellow phlegm. No chest pain. Getting IV antibiotics during my visit. HIV P24 antigen, nonreactive. Pending CD4 cell count. We will continue to follow Pulmonary and Infectious Disease input and recommendations. 05/30 the patient has been seen and examined, no acute events overnight, BP 114/66, during my visit she is on Ventimask, saturating 95%, FiO2 60%. Without the Ventimask the patient desaturates to the low 70s. Patient tolerating BiPAP during the night. Still admits cough productive of thick yellow phlegm, no chest pain. Results of CD4 cell count reviewed, discussed with the patient. We will continue broad-spectrum IV antibiotics. Continue to follow Pulmonary and Infectious Disease input and recommendations. 05/31 the patient has been seen and examined, upgraded to the ICU, during my visit she is sitting in the chair, BP 113/72, heart rate of 109, she is on Oxymizer, 30 L, FiO2 100%. She is alert oriented x3, still admits cough productive of thick yellow phlegm, no chest pain. Hemoglobin 12.9, hematocrit 36.6, WBC 14.6. ABG with pH 7.4, pCO2 40, PO2. Chest x-ray shows left lower l obe infiltrate consistent with pneumonia. She is getting IV antibiotics during my visit. Patient will remain in the ICU, continue to follow critical Care as well as infectious disease input and recommendations. 06/01 patient is seen and examined, sitting comfortable in chair, awake, following commands, remains on high-flow oxygen, FiO2 70%, 30 L, BP 117/67, heart rate of 78, respiratory rate of 30-36, saturating 100%, CBC with a hemoglobin 13.6, hematocrit 38.9, WBC 12.4. Platelet count of 341. Chest x-ray showing persistent left lung infiltrate, cardiac size and mediastinum unremarkable. The bony structures are within the normal limits. Patient getting IV antibiotics during my visit. Patient to continue with the high-dose steroids. Serology test positive for Pneumocystis sandra. Patient on Bactrim two tablets p.o. t.i.d.. Continue also doxycycline and cefepime IV. Continue to follow infectious disease input and recommendation. Continue to follow Pulmonary input and recommendations. 06/02 patient is seen and examined at bedside, currently in prone position, alert oriented x3. CPT started last night, she has started having more loose phlegm expectorated. BP 114/74, tachycardic 114, saturating 95%, high-flow nasal cannula, 30 L, FiO2 80%. CBC with a hemoglobin 16.9, hemoglobin 14 0, hematocrit 39.8, platelet count 347. Chest x-ray shows persistent left lung infiltrate. 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 HIV preliminary positive, HIV P 24 nonreactive, HIV-one RNA by PCR [id number]. Serology test for toxoplasma currently pending. Patient on IV antibiotics as well as high-dose steroids. Continue to follow infectious Disease and Pulmonary input and recommendations. 06/03 patient seen at bedside, no acute events overnight. She continues with respiratory distress, with increasing oxygen requirements. Critical Care has discussed a possible need for intubation if she does not improve. She has been started on steroids due to underlying PCP pneumonia. WBC improved from 16.9 down to 13.5, sodium stable at 132, same as yesterday, lactic acid downtrending from 4.1 down to 3.2, remainder of her labs are relatively unremarkable. 06/04 patient seen at bedside, no acute events overnight. She remains on high- flow nasal cannula, mildly tachycardic. WBC elevated at 13.3, sodium decreased from 132 down to 129, remainder of her labs are relatively unremarkable. Continue to wean supplemental oxygen. Further care per critical Care 06/05 patient seen at bedside, no acute events overnight. She remains on high- flow nasal cannula with BiPAP overnight and is still tachycardic. Heart rate ranging from 104 up to 113, WBC improved from 13.3 down to 11.1, sodium decreased from 120 down to 126, remainder of her labs are relatively unremarkable. We will continue to wean oxygen as able. 06/06 Patient seen at bedside, no acute events overnight. She remains on high- flow nasal cannula with BiPAP overnight and is still tachycardic. Heart rate ranging from 104 up to 122, WBC improved from 11.1 down to 10.6, sodium improved from 126 up to 129, remainder of her labs are relatively unremarkable. We will continue to wean oxygen as able. 06/07 patient seen at bedside, no acute events overnight. She is still on high- flow nasal cannula, RT advised to wean oxygen, currently saturating 100% on 30L. She is tachycardic, sodium decreased from 129 down to 123, likely secondary to Bactrim. Patient is asymptomatic, will continue with bactrim, if sodium continues to decrease consider a holiday from bactrim. 06/08 patient seen at bedside, no acute events overnight. She is still on high- flow nasal cannula, RT advised to wean oxygen, currently saturating 100% on 30L. She is tachycardic, sodium stable at 123, same as yesterday. Pending improvement in respiratory status 06/09 patient seen at bedside, he remains on high-flow nasal cannula, we will continue to wean as able, appreciate pulmonology assistance, tachycardic with heart rate ranging from 123 up to 130. She is still having low-grade fevers at 100.8. Sodium increased from 123 up to 130, remainder of her labs are relatively unremarkable. REVIEW OF SYSTEMS 12 point review of systems negative unless noted in HPI PHYSICAL EXAM GENERAL APPEARANCE: The patient is awake, alert, and oriented, in no acute cardiopulmonary distress. NEUROLOGICAL: Cranial nerves II-XII grossly intact. Motor is 5/5 in bilateral upper and lower extremities proximal to distal. No sensory deficits. HEENT: Face is symmetric. Pupils are equal and reactive. Extraocular movements are intact. NECK: Supple. No JVD. No thyromegaly. No submental, submandibular, pre-/posta uricular, occipital or supraclavicular lymphadenopathy. CHEST: Normal chest expansion. No Telemetry. LUNGS: Absence of any rales, rhonchi or any wheezing. CARDIOVASCULAR: Regular. S1 and S2 normal. No appreciable rubs, murmurs or gallops. ABDOMEN: Soft, nontender, and nondistended. There is no rebound, voluntary guarding, or rigidity. : Deferred. No Souza. EXTREMITIES: Non-edematous and not cyanotic. No clubbing. Good capillary refill. SKIN: No skin breakdown. Vital Signs (last 8hr) Date Time Temp Pulse Resp B/P (MAP) Pulse Ox O2 Delivery O2 Flow Rate FiO2 06/09/24 11:36 123 26 06/09/24 11:30 96 Non-Rebreather+ 30 50 Hi-Flow N/C+ 06/09/24 10:46 100.8 126 29 115/73 96 N/C High Flow System 30.0 50 06/09/24 10:31 100.8 06/09/24 09:46 124 31 107/65 95 N/C High Flow System 30.0 50 06/09/24 08:46 130 41 130/53 96 N/C High Flow System 30.0 50 06/09/24 07:46 106 28 138/79 97 N/C High Flow System 30.0 50 06/09/24 07:30 97 Non-Rebreather+ 30 50 Hi-Flow N/C+ 06/09/24 07:12 115 29 HFNC Heated System N/Can 30.0 50 06/09/24 06:52 103 30 70 06/09/24 06:51 102 26 06/09/24 06:00 101 27 108/63 100 BIPAP 70 LABS: Laboratory: Test 06/09/24 09:28 06/09/24 04:07 06/08/24 08:30 1/25/25 03:42 Range/Units Free Thyroxine (T4) Direct 0.93 0.76-1.46 ng/dL White Blood Count 9.2 4.8-10.8 K/uL Red Blood Count 3.56 L 4.00-5.50 MIL/uL Hemoglobin 11.6 L 12.0-16.0 g/dL Hematocrit 32.7 L 36-48 % Mean Corpuscular Volume 91.9 79-99 fL Mean Corpuscular Hemoglobin 32.6 27.0-33.0 pg Mean Corpuscular Hemoglobin Concent 35.5 32.0-36.0 g/dL Red Cell Distribution Width 11.3 11.0-15.5 % Platelet Count 195 130-400 K/uL Mean Platelet Volume 9.3 7.5-10.5 fL Immature Granulocyte % (Auto) 0.5 0-1 % Neutrophils (%) (Auto) 92.0 H 40.0-77.0 % Lymphocytes (%) (Auto) 4.8 L 21.0-51.0 % Monocytes (%) (Auto) 2.6 L 3.0-13.0 % Eosinophils (%) (Auto) 0.0 0.0-8.0 % Basophils (%) (Auto) 0.1 0.0-5.0 % Neutrophils # (Auto) 8.5 H 1.8-7.7 K/uL Lymphocytes # (Auto) 0.4 L 1.0-4.8 K/uL Monocytes # (Auto) 0.2 0.1-1.0 K/uL Eosinophils # (Auto) 0.00 0.00-0.70 K/uL Basophils # (Auto) 0.01 0.00-0.20 K/uL Absolute Immature Granulocyte (auto 0.05 0-1 K/uL Nucleated Red Blood Cells 0.0 0.0-0.19 % White Cell Morphology Comment See comments Sodium Level 130 L 136-145 mmol/L Potassium Level 4.4 3.5-5.1 mmol/L Chloride Level 96 L 101-111 mmol/L Carbon Dioxide Level 28 21-32 mmol/L Blood Urea Nitrogen 15 7-18 mg/dL Creatinine 0.4 L 0.5-1.0 mg/dL Glomerular Filtration Rate Calc 121 >90 mL/min Random Glucose 144 H 70-105 mg/dL Total Calcium 8.1 L 8.5-10.1 mg/dL Cortisol AM Sample 6.3 6.2-19.4 ug/dL Uric Acid 1.2 L 2.6-7.2 mg/dL Triglycerides Level 89 30-200 mg/dL Cholesterol Level 147 <200 mg/dL LDL Cholesterol 92 0-99 mg/dL HDL Cholesterol 41 35-85 mg/dL Thyroid Stimulating Hormone (TSH) 0.29 L 0.36-3.74 uIU/mL Current Medications Medications (Trade) Dose Ordered Sig/Julita Route PRN Reason Start Time Stop Time Status Last Admin Dose Admin Acetaminophen (TYLenol 650MG ELIXIR) 650 mg Q6H PRN PO MILD PAIN (1-3) 06/04/24 08:30 07/04/24 08:29 06/09/24 10:31 650 MG Acetaminophen (TYLenol 650MG SUPPOSITORY) 650 mg Q6H PRN RC MILD PAIN (1-3) 05/23/24 20:30 06/22/24 20:29 Acetylcysteine (MUComyst 20% 4ML) 400mg = 2ml [id number] IH 06/02/24 00:00 06/05/24 15:52 DC 06/05/24 11:35 200 MG Albuterol (DUOneb) 1 udvial [id number] IH 05/24/24 00:00 06/23/24 00:00 06/09/24 11:34 1 UDVIAL Azithromycin 250 ml @ 250 mls/hr Q24H IVPB 05/24/24 17:00 05/24/24 14:41 DC Azithromycin 250 ml @ 250 mls/hr Q24H STAT IVPB 05/23/24 17:17 05/24/24 14:41 DC 05/23/24 17:45 250 MLS/HR Benzocaine (Cepacol Sore Throat Lozenge) 1 each Q4H PRN MM SORE THROAT 06/08/24 10:00 07/08/24 09:59 06/09/24 07:44 1 EACH Bisacodyl (DulcoLAX) 10 mg DAILY PRN RC CONSTIPATION 06/08/24 14:00 07/08/24 13:59 06/08/24 14:32 10 MG Cefepime HCl (MAXipime 2 gm vial) 2 gm Q12H IVPB 05/24/24 15:00 06/03/24 14:59 DC 06/03/24 03:18 2 GM Ceftriaxone Sodium (ROCEphine 1G INJ) 1 gm Q24H IVPB 05/24/24 17:30 05/24/24 14:41 DC Chlorhexidine Gluconate (Peridex) 15 ml Q6H MM 06/07/24 17:00 06/21/24 16:59 06/09/24 10:26 15 ML Clotrimazole (Mycelex) 10 mg TID MM 06/04/24 21:00 07/04/24 20:59 06/09/24 08:53 10 MG Doxycycline Hyclate 250 ml @ 125 mls/hr Q12H IV 05/24/24 16:30 06/03/24 16:29 DC 06/03/24 04:23 125 MLS/HR Enoxaparin Sodium (Lovenox) 40 mg Q24H SQ 05/23/24 21:00 06/22/24 20:59 06/08/24 20:41 40 MG Famotidine (Pepcid 20mg Vial) 20 mg DAILY IV 05/24/24 09:00 06/23/24 08:59 06/09/24 08:53 20 MG Fluconazole (DiFLUCan 100 mg TAB) 200 mg DAILY PO 06/05/24 09:00 07/05/24 08:59 06/09/24 08:53 200 MG Fluconazole/ Sodium Chloride 100 ml @ 100 mls/hr DAILY IV 05/26/24 09:00 05/27/24 15:57 DC 05/27/24 09:07 100 MLS/HR Furosemide (LASix 20MG VIAL) 20 mg DAILY IV 05/31/24 09:00 06/07/24 13:18 DC 06/03/24 08:38 20 MG Guaifenesin/ Dextromethorphan (RobiTUSSin DM 200/20MG 10ML) 10 ml Q4H PRN PO COUGH 05/23/24 20:30 06/22/24 20:29 06/09/24 07:44 10 ML Lactated Ringer's (Lactated Ringers 1000ml) 500 ml ONCE IV 06/02/24 20:00 06/02/24 19:54 DC Levofloxacin/ Dextrose 100 ml @ 100 mls/hr Q24H IV 05/24/24 15:00 05/24/24 16:16 DC Magnesium Sulfate 50 ml @ 0 mls/hr PROTOCOL PRN IV hypomagnesemia 05/28/24 08:00 06/27/24 07:59 Methylprednisolone Sodium Succinate (Solu-medROL 40MG) 20 mg Q12H IVP 06/05/24 07:00 06/09/24 09:13 DC 06/09/24 07:25 20 MG Methylprednisolone Sodium Succinate (Solu-medROL 40MG) 40 mg Q12H IVP 05/28/24 18:00 05/29/24 16:45 DC 05/29/24 05:32 40 MG Methylprednisolone Sodium Succinate (Solu-medROL 40MG) 40 mg Q6H IVP 05/29/24 16:30 06/04/24 16:44 DC 06/04/24 11:13 40 MG Methylprednisolone Sodium Succinate (Solu-medROL 40MG) 40 mg Q6H IVP 06/04/24 18:00 06/05/24 00:24 DC 06/04/24 23:48 40 MG Methylprednisolone Sodium Succinate (Solu-medROL 40MG) 40 mg Q8H IVP 05/24/24 01:00 05/25/24 21:51 DC 05/25/24 17:28 40 MG Methylprednisolone Sodium Succinate (Solu-medROL 40MG) 60 mg Q6H IVP 05/25/24 22:00 05/28/24 02:25 DC 05/27/24 23:55 60 MG Methylprednisolone Sodium Succinate (Solu-medROL 40MG) 60 mg Q6H IVP 05/28/24 06:00 05/28/24 08:27 DC 05/28/24 06:47 60 MG Metronidazole/ Sodium Chloride (flaGYL) 500 mg Q8H IV 05/25/24 22:00 05/25/24 21:56 DC Ondansetron HCl (zoFRAN 4MG INJ) 4 mg Q6H PRN IV NAUSEA/VOMITING 05/23/24 20:30 06/22/24 20:29 Potassium Chloride 100 ml @ 100 mls/hr AD PRN IV POTASSIUM PROTOCOL 05/28/24 08:00 06/27/24 07:59 Potassium Chloride (K-Dur/Klor-Con 20meq) 20 meq AD PRN PO POTASSIUM PROTOCOL 05/28/24 08:00 06/27/24 07:59 Potassium Chloride (KCl 10% Elixir 20meq/15ml) 20 meq AD PRN PO POTASSIUM PROTOCOL 05/28/24 08:00 06/27/24 07:59 Prednisone (deltaSONE/ oraSONE 20MG TAB) 20 mg DAILY PO 06/10/24 09:00 07/10/24 08:59 Sodium Chloride 500 ml @ 500 mls/hr Q1H IV 06/02/24 20:00 06/02/24 20:59 DC 06/02/24 21:34 500 MLS/HR Sodium Chloride 1,000 ml @ 75 mls/hr [id number] IV 06/07/24 13:30 07/07/24 13:29 06/09/24 04:49 75 MLS/HR Sodium Chloride (Sodium Chloride) 1,000 mg BIDAC PO 06/07/24 16:30 06/09/24 07:28 DC 06/08/24 16:58 1,000 MG Sodium Chloride (Sodium Chloride) 1,000 mg BIDAC PO 06/09/24 07:30 07/09/24 07:29 06/09/24 07:29 1,000 MG Sodium Zirconium Cyclosilicate (Lokelma) 5 gm DAILY10 PO 06/08/24 10:30 06/10/24 10:29 06/08/24 10:50 5 GM Trimethoprim/ Sulfamethoxazole (BactRIM DS) 1 tab BID PO 05/26/24 21:00 05/29/24 16:18 DC 05/29/24 08:07 1 TAB Trimethoprim/ Sulfamethoxazole (BactRIM DS) 2 tab TID PO 05/29/24 16:30 06/05/24 20:59 DC 06/05/24 14:55 2 TAB Trimethoprim/ Sulfamethoxazole (BactRIM DS) 2 tab TID PO 06/06/24 09:30 09/11/24 09:29 06/09/24 08:53 2 TAB DIAGNOSTICS / RADIOLOGY: [ ] ASSESSMENT: Acute hypoxemic respiratory failure, POA Bilateral lower lobe bacterial pneumonia + MRSA POA, +Azra Suspected PCP PNA based on CT findings vs viral/Atypical PNA . POA HIV positive (preliminary report, confirmatory test nonreactive) POA Normocytic anemia, not POA Neutrophilia, POA Hyperglycemia, POA Obesity BMI of 32.3 Former smoker Acute cystitis, POA Fatty liver, POA Moderate hypoalbuminemia POA Previous COVID-19 infection PLAN: Continue ICU Continue the patient on BiPAP alternating with high-flow oxygen Continue the patient on high-dose steroids Continue Bactrim Continue doxycycline Continue lasix 20mg q24h Continue broad-spectrum antibiotic with doxycycline, and cefepime IV Continue to follow Pulmonary input recommendation Continue to follow infectious disease input and recommendation Follow serology test for toxoplasma gone the Follow chest x-ray Continue bronchodilators per respiratory therapist Replace electrolytes IV per protocol A.m. labs GI and DVT prophylaxis. Further orders to follow based on the above results Infectious disease consulted, appreciate recommendations Disposition: Remains admitted to the ICU, pending improvement in clinical condition. Total ICU time spent greater than 30 minutes. HEATHER RICE MD Jun 09, 2024 13:27
[2024-06-10] VITALS (41 sets, daily range): BP systolic 82–141; BP diastolic 26–94; PULSE 101–142; RESP 20–47; TEMP 98.1–100.7; O2SAT 73–100
[2024-06-10 04:16] LABS: BASOPHILS # (AUTO) 0.01 K/uL (0.00-0.20); BASOPHILS % (AUTO) 0.1 % (0.0-5.0); EOSINOPHILS # (AUTO) 0.16 K/uL (0.00-0.70); EOSINOPHILS % (AUTO) 1.8 % (0.0-8.0); HEMATOCRIT 30.5 % (36-48); IMMATURE GRANULOCYTE ABSOLUTE 0.05 K/uL (0-1); LYMPHOCYTES # (AUTO) 0.5 K/uL (1.0-4.8); MEAN CORPUSCULAR HEMOGLOBIN 32.2 pg (27.0-33.0); MEAN CORPUSCULAR HGB CONC 35.7 g/dL (32.0-36.0); MEAN CORPUSCULAR VOLUME 90.2 fL (79-99); MONOCYTES # (AUTO) 0.2 K/uL (0.1-1.0); NEUTROPHILS % (AUTO) 89.5 % (40.0-77.0); PLATELET COUNT (AUTO) 166 K/uL (130-400); RED BLOOD CELL COUNT(AUTO) 3.38 MIL/uL (4.00-5.50); RED CELL DISTRIBUTION WIDTH 11.4 % (11.0-15.5); WHITE BLOOD COUNT (AUTO) 8.9 K/uL (4.8-10.8)
[2024-06-10 04:30] LABS: CREATININE 0.4 mg/dL (0.5-1.0); POTASSIUM 3.8 mmol/L (3.5-5.1)
[2024-06-10] MEDS: predniSONE 20 MG TABLET PO SCH (08:47)
--- NOTE | 2024-06-10 10:28 | PN ---
[facility] PROGRESS NOTE Date Patient Seen: Jun 10, 2024 Time of Visit: 10:28 Supervising Physician: Dr. Lundberg Primary Care Physician: Stu Foss MD Outpatient Specialists: [ ] Inpatient Consults: Pulmonology PROBLEM LIST: Severe ARDS Severe Sepsis Acute hypoxemic respiratory failure, POA requiring high Flow with 80% Bilateral lower lobe bacterial pneumonia + MRSA POA, +Azra Confirmed PCP PNA per Ag (serology), POA New HIV/AIDS positive POA Bactrim induced hyponatremia and hyperkalemia Normocytic anemia, not POA Neutrophilia, POA Hyperglycemia, POA Obesity BMI of 32.3 Former smoker Fatty liver, POA Moderate hypoalbuminemia POA Previous COVID-19 infection INTERVAL HISTORY: 05/25/2024: At the time of my evaluation, the patient was lying in bed. She is currently on a non-rebreather mask. She reports feeling slightly better today. No laboratory data for review today. No new complaint. 05/28-patient is awake alert and oriented x3 currently receiving nebulizer treatment. She has been tolerating BiPAP overnight and currently on 10 L via Oxymizer which is less than 2 days ago which was 15 liters/minute saturating 96%. Patient has been afebrile and hemodynamically stable. Patient reports good urine output and bowel movements x2 yesterday. On laboratory white count is normal neutrophils the same as yesterday 89.8. Chemistry kidneys are doing good creatinine 0.5 GFR 114 glucose 150 mg/dL we will order hemoglobin A1c for tomorrow on chest x-ray. We will continue to follow ID recommendation. 05/29/24-patient is awake alert and oriented x3. She is sitting up on recliner chair with high FiO2 requirements 10 L via Oxymizer. We will increase Solu- Medrol to 40 mg IV q.6 hours and continue with doxycycline cefepime and increased Bactrim to full-dose two tablets p.o. TID. Patient's denies chills, chest pain palpitations. However she does report continues shortness for breath and gets winded easily with a few steps to the restroom. Patient to continue BiPAP at night and p.r.n.. Chest x-ray worsening left lower lobe pneumonia. 05/30/24- patient is awake alert and oriented x3 sitting up in recliner chair. Patient is easily winded with conversation currently on non-rebreather at 100% FiO2. His hypoxemia is worsening with the a pH of 7.45 pCO2 of 38 PO2 of 68.7 and a bicarb 26. We will have patient transferred to ICU and we will oxygen in the following order: with high-flow if high flow not enough will start high flow + NRB and if not enough then switch to bipap. She is high risk for decompensation although patient reports she does not feel any increased shortness of breath she is easily winded and tachycardic with ambulating short distance to the restroom. On 2D echo patient has not LVEF of greater than 55% with mild concentric left ventricular hypertrophy left ventricular diastolic function is normal. 05/31/24- Pt is awake alert and oriented x 3 she reamins in the icu due to high risk for resp decompensation. She is hemodynamically stable blood pressure 105/50 O2 sat of 95% with high-flow on 30 L with a FiO2 of 90% respiratory rate is 28 heart rate of 100 and afebrile. Patient gets easily winded when holding a conversation. Encouraged to lay down prone. She continues with high dose steroids Solu-Medrol 40 q.6 hours. Urine output 2.9 L in last 24 hours, WBCs are 14.6 H&H is 12.9/36.6 with a platelet count of 304 K. on chemistry sodium is 134 chloride is 98 BUN of 21 creatinine of 0.5 and GFR of 114 glucose of 151 mg/dL LDH is 483 albumin 2.6. On serology Pneumocystis sandra antigen +. Clinical findings and laboratory findings consistent with HIV/AIDS , ID is on the case and we will follow his recommendations. Per patient she has talked to her partner about her results, I educated her that is very important for her sexual partners to be notified and so they can get checked for HIV. Pt verbalized understanding. On chest XR left lower lobe infiltrates consistent with pneumonia. 06/01/24-patient sitting up in chair sleeping but was easily arousable to voice. Awake alert and oriented x3,. Currently on high-flow O2 with a FiO2 of 80%. No major overnight events per RN. she is hemodynamically stable and afebrile. Urine output is good 2.9 L in the last 24 hours. WBCs are 12.4 trended down from yesterday neutrophils are 92.4. On chemistry sodium 134 with a potassium of 5.4 chloride of 96 BUN of 22 creatinine of 0.6 and GFR of 109 mg/dL ALT 86 albumin 2.5. Patient continues on doxycycline, cefepime, and Bactrim DS two tablets 3 times a day. We will continue follow ID recommendations 06/02/24-patient is awake alert and oriented x3 sitting up in recliner chair she has been proned this morning and tolerated well saturating 100% on high flow of with 80% FiO2. Now sitting up and saturating 92%. She reports that she is now able to expectorate some sputum. Patient has a temperature 99.9 she is sinus tachy in the monitor 115 beats per minute, respiratory rate of 28 and hemodynamically stable. Pancultured. Antibiotics per ID. Urine output is 1 L in the last 24 hours with a balance of -1.5L WBCs today are 16.9 neutrophils. We will order 500mls bolus of LR if no improvement we will give another bolus. Chemistry sodium was 132 chloride 96 BUN of 26, potassium is 4.8 BUN of 26 cr eatinine 0.6 GFR of 109 mg/dL albumin 2.6. we will order lactic. Per Dr Garcia recommends Vancomycin, this was communicated with ID. 04/03/25-patient with no major overnight events as per RN she is a little tachycardic in the 113 beats per minute, saturating 96% with FiO2 of 80% on high-flow nasal cannula with 30 L. Patient is high risk for intubation and I informed her of this encouraged her to have some Advance directive prior to requiring emergency intubation. She has accepted manager social work consult for advance directive and agreed to let her kids know about her condition and discuss w/ them her wishes and theirs before signing any advance directives. T- max overnight 99.7 with a T low of 98.1. She is hemodynamically stable. She denies feeling any worsening shortness of breath. Patient denies any nausea vomiting or diarrhea. Urine output 2.5 L in the last 24 hours with a-610 mL balance. WBCs trending down 13.5 today H&H stable 12.8/36.7 neutrophils are 91.3. Chemistries sodium 132 chloride of 96 carbon dioxide 26 BUN 23 creatinine of 0.5 with a GFR of 114 random glucose 143 mg/dL lactic acid trended down to 3.0 ABG with a pH of 7.44 pCO2 of 35 PO2 decrease to 58 PF Ratio 72.5, we will continue to encourage proning and add non-rebreather on top of high-flow nasal cannula. 06/04/2024: At the time of my evaluation, the patient was sitting up in bed. She remains on a non-rebreather mask over a high-flow nasal cannula. Oxygen saturation is optimal arranging between 93 to 98%. No febrile events. Lab oratory data showed a improving WBC count down to 13.3. Chemistry panel showed a low-sodium count of one going to nine with a potassium of 4.2, chloride is 93, CO2 of 97, BUN is 28, creatinine of 0.6 and a GFR of 119. No new microbiology data for review. Chest x-ray today showed bilateral pulmonary infiltrates that persists. The patient continues on antibiotic therapy guided by the Infectious Disease specialist. No new complaint. 06/05/2024: At the time of my evaluation, the patient is lying in bed. The staff nurse reports no acute events overnight. The patient remains on high-flow nasal cannula 30% and backup non-rebreather mask 80%. Vital signs today which stable blood pressure, very labile heart rate, respiratory rate and SpO2. On labs today, the patient had a improved WBC count down to 11.1. Chemistry panel showed a downward trend of sodium to 128. Potassium 4.4, chloride 94 and CO2 of 27. Renal parameters remain stable. Microbiology data showed no new studies. No new imaging for review today. Patient has no new complaint. 06/06/2024: At the time of my evaluation, the patient is lying in bed. The patient remains on high-flow nasal cannula 30% and backup non-rebreather mask 80%. Vital signs today which stable blood pressure, tachypnea and tachycardia. Spo2 ranging in the upper 90's. On labs today, the patient had a improved WBC. Chemistry panel showed a odium to 129. Renal parameters remain stable. Microbiology data showed no new studies. No new imaging for review today. Patient has no new complaint. 06/07/2024: At the time of my evaluation, the patient was lying in bed. The staff nurse reports no acute events overnight. The patient remains with high- flow nasal cannula and denies any shortness of breath. The vital signs today still showing tachypnea and tachycardia with blood pressure of 127/77 and SpO2 of 100%. Laboratory data of significance, showed a drop in sodium count of 123 and chloride of 90. Otherwise, the remaining laboratory parameters are unremarkable. There was no new microbiology data for review. No new chest imaging. Medication list reviewed showed patient continues on Bactrim DS and fluconazole. She remains on Solu-Medrol and bronchodilator therapy with DuoNeb. No new complaint. 06/08/2024: At the time of my evaluation, the patient is lying in bed. The staff nurse reports no major events overnight. She remains awake alert and vijaya ented x4. On the monitor, the patient is normotensive without any need of pressure support . She is sinus tach rate in the low 100s. Pulse oximetry was in the high 90s to 100% on high-flow nasal cannula 30 L 50% FiO2. On GI, patient is feeding orally, no report of nausea, vomiting or diarrhea. Genitourinary, the patient has a intake of 2255.0 with a out of 3500 and a negative balance of 1245. Functional aleman, the patient is mobile, but very weak to exit the bed unassisted. On skin, the patient has multiple oral herpetic appearing lesions. The staff nurse reports no acute events overnight. Laboratory data review today, showed a sodium of 133, potassium of 5.6, chloride of 91, CO2 of 25, BUN is 20 with a creatinine of 0.4. Blood glucose of 150. TSH of 0.29 and a uric acid of 1.2. No other complaint. 06/09/2024: At the time of my evaluation, the patient is lying in bed. The staff nurse reports no major events overnight, but is febrile today 100.0. She remains awake alert and oriented x4. On the monitor, the patient is normotensive without any need of pressure support . She is sinus tach rate in the low 100s. Pulse oximetry was in the high 90s to 100% on high-flow nasal cannula 30 L 60% FiO2. On GI, patient is feeding orally, no repeat of nausea vomiting or diarrhea. Genitourinary, the patient has a intake of 2685.0 with a out of 1700 and a positive balance of 945. Functional aleman, the patient is mobile, but very weak to exit the bed unassisted. On skin, the patient has multiple oral herpetic appearing lesions. The staff nurse reports no acute events overnight. Laboratory data review today, showed a sodium of 130, potassium of 4.4, chloride of 96, CO2 of 28, BUN is 15 with a creatinine of 0.4. No other complaint. 06/10/2024: At the time of my evaluation, the patient was lying in bed. Per the patient report, she had a anxiety episode overnight. He is awake alert and oriented x4. She remains intermittently febrile most recent 100.8. On a monitor, the patient is normotensive without any pressor support. She remains tachycardic up in the 120s. The patient remains on oxygenation with high-flow nasal cannula 30 L/70% FiO2 and denies any hypoxemic event. She continues to feed orally, no complaint of nausea vomiting or diarrhea. The patient reports voiding without difficulty. Intake and output shows a intake of 2006 units 60.0, output of 2500 and a positive balance of 160.0. Laboratory data review of significance showed no changes of concern on CBC, chemistry panel of significance showed a sodium count of 128, potassium of 3.8, chloride of 93 and the remaining parameters were unremarkable. Blood cultures showing no growth. A chest CT was ordered and is pending. No other complaint. REVIEW OF SYSTEMS: General: No malaise or fever. Neurological: No fainting episodes or seizures. HEENT: No nasal congestion or nasal secretion. Respiratory: Yes for cough, yellow phlegm, shortness for breath on minimal exertion. Cardiac: No chest pain or palpitations. Gastrointestinal: No vomiting or diarrhea. Genitourinary: No dysuria hematuria. Skin: No rashes or lesions. Hematological: No bruises or bleeding. Musculoskeletal: No joint pains or arthralgias. Psychiatric: No depression or panic attacks. PHYSICAL EXAM: GENERAL: alert, weak, awake oriented x 3 HEENT: EOMI, Sclera non icteric, moist mucosa NECK: Supple, no JVD, trachea midline LUNGS: Fine crackles to bilateral lower posterior bases lung sounds. No wheezes HEART: Regular rate and rhythm. Normal S1 and S2, without murmurs ABD: Abdomen soft, nontender. Bowel sounds present EXT: No clubbing cyanosis or edema NEURO: Alert and oriented to person, follows commands Vital Signs (last 8hr) Date Time Temp Pulse Resp B/P (MAP) Pulse Ox O2 Delivery O2 Flow Rate FiO2 06/10/24 09:15 117 22 HFNC Heated System N/Can 30.0 65 06/10/24 07:55 122 30 70 06/10/24 06:46 128 20 06/10/24 06:00 124 34 117/72 93 N/C High Flow System 70 06/10/24 05:00 125 33 115/71 95 N/C High Flow System 30.0 70 06/10/24 04:38 122 29 70 06/10/24 04:00 94 Hi-Flow N/C+ 30 70 Bi-PAP+ 06/10/24 04:00 121 30 117/70 94 N/C High Flow System 30.0 70 06/10/24 03:28 100.8 06/10/24 03:00 117 27 108/63 93 N/C High Flow System 30.0 LABS: Hematology Labs: Test 06/10/24 03:57 06/09/24 04:07 Range/Units White Blood Count 8.9 4.8-10.8 K/uL Red Blood Count 3.38 L 4.00-5.50 MIL/uL Hemoglobin 10.9 L 12.0-16.0 g/dL Hematocrit 30.5 L 36-48 % Mean Corpuscular Volume 90.2 79-99 fL Mean Corpuscular Hemoglobin 32.2 27.0-33.0 pg Mean Corpuscular Hemoglobin Concent 35.7 32.0-36.0 g/dL Red Cell Distribution Width 11.4 11.0-15.5 % Platelet Count 166 130-400 K/uL Mean Platelet Volume 9.6 7.5-10.5 fL Immature Granulocyte % (Auto) 0.6 0-1 % Neutrophils (%) (Auto) 89.5 H 40.0-77.0 % Lymphocytes (%) (Auto) 6.0 L 21.0-51.0 % Monocytes (%) (Auto) 2.0 L 3.0-13.0 % Eosinophils (%) (Auto) 1.8 0.0-8.0 % Basophils (%) (Auto) 0.1 0.0-5.0 % Neutrophils # (Auto) 8.0 H 1.8-7.7 K/uL Lymphocytes # (Auto) 0.5 L 1.0-4.8 K/uL Monocytes # (Auto) 0.2 0.1-1.0 K/uL Eosinophils # (Auto) 0.16 0.00-0.70 K/uL Basophils # (Auto) 0.01 0.00-0.20 K/uL Absolute Immature Granulocyte (auto 0.05 0-1 K/uL Nucleated Red Blood Cells 0.0 0.0-0.19 % White Cell Morphology Comment See comments Chemistry Labs: Test 06/10/24 03:57 06/09/24 09:28 Range/Units Sodium Level 128 L 136-145 mmol/L Potassium Level 3.8 3.5-5.1 mmol/L Chloride Level 93 L 101-111 mmol/L Carbon Dioxide Level 27 21-32 mmol/L Blood Urea Nitrogen 16 7-18 mg/dL Creatinine 0.4 L 0.5-1.0 mg/dL Glomerular Filtration Rate Calc 121 >90 mL/min Random Glucose 111 H 70-105 mg/dL Total Calcium 7.8 L 8.5-10.1 mg/dL Free Thyroxine (T4) Direct 0.93 0.76-1.46 ng/dL DIAGNOSTICS / RADIOLOGY RESULTS: [ ] PLAN Follow ID recommendations Encouraged to prone herself Maintain O2 sats above 92% Monitor temperature trend Continue high-dose steroids Duo nebs q.6 hours Abx Per ID trend Lactic acid. Due to severe sob will not do 30ml/kg bolus at one time if pt not hypotensive to avoid worsening resp status Instead will try pulsating boluses of 500 mL of NS as tolerated. Follow respiratory status closely as she is high risk for decompensation. manager social work to discuss advance directives. Monitor resp status closely high risk for intubation, Pt will likely not come off mechnical ventilation easily and higher risk of HAP due to debilitated immune system so will try other measures of oxygenation prior to intubation for now. We will place NRB on top of already High Flow NC with fio2 of 80%. 06/04/2024: For now, going to continue current management for the patient. We are going to continue with oxygen supplementation as ordered and monitor the saturation. The patient will continue on antibiotic therapy as guided by the Infectious Disease specialist. Currently, the plan is to continue with Bactrim double strength b.i.d. was started on fluconazole 200 mg p.o. daily and cefepime, doxy was discontinued. We will discuss with the Infectious Disease specialist regarding the benefit of Zithromax for MAC. Considering the patient has been on extended course of steroid therapy, I am going to decrease the dose of the Solu-Medrol to 20 q.12h. Appreciate the input of the true specialist. We will monitor the patient's progress and response to management. We will repeat surveillance labs in the morning. We will continue to provide general supportive care, GI and DVT prophylaxis. Further orders per attending MD and hospital course. 06/05/2024: For now, going to continue current management for the patient. She will continue on oxygen supplementation as ordered and we will adjust as necessary. Steroid therapy was decreased overnight. She is currently on Solu- Medrol 20 mg IV q.12. She will continue on antibiotics per the guidance of Infectious Disease specialist, currently receiving Bactrim DS and fluconazole. I appreciate the input of treating specialist. We will monitor the patient's progress and response to management. Continue to provide general supportive care, GI and DVT prophylaxis. Further orders per attending MD and hospital course. 06/06/2024: For now, going to continue current management for the patient. We are going to continue antibiotic therapy currently on Bactrim DS two tabs t.i.d. and fluconazole. The steroid dose was decreased yesterday to Solu-Medrol 20 mg IV q.12. We will monitor the patient's progress and response to management. We will appreciate the input of the treating specialist. We will continue to provide general supportive care, GI and DVT prophylaxis. Further orders per attending MD and hospital course. 06/07/2024: For now, we are going to continue current management for the patient. Considering the drop in sodium count, I am going to put the patient on IV NS at 75 cc/hour. We will also start the patient on sodium chloride tabs 1 g p.o. b.i.d. before meals. We will administer one time dose now. I am going to request a TSH level, cortisol level a.m., uric acid and lipids with a.m. labs. We will continue to monitor the sodium count. The patient will continue antibiotic therapy as guided by the Infectious Disease specialist. We will repeat surveillance labs in the morning. I am going to request a repeat chest x-ray for the morning. We will continue to provide general supportive care, GI and DVT prophylaxis. Further orders per attending MD and hospital course. 06/08/2024: For now, we are going to continue current management for the patient. We will continue oxygen supplementation via the high-flow nasal cannula 30 L 60% FiO2. Considering the patient is at 100%, I am going to discuss with the RT to wean the supports maintaining SpO2 above 92% . We will continue to monitor the vital sign trend and treat accordingly. We will monitor the oral intake and supplement if necessary. We will also continue to monitor the I's and O's with regards to the electrolyte imbalance, the low-sodium count and elevated potassium count we will be attributed to the use of high-dose Bactrim. We will supplement the sodium with sodium chloride tabs 1000 mg twice a day with meals. I am also going to start the patient on Lokelma5 mg. We will monitor the electrolyte trend. The patient will continue on high-dose Bactrim, fluconazole, Mycelex and Solu-Medrol. She was started on Peridex for oral care. We will continue to provide general supportive care, GI and DVT prophylaxis. Further orders per attending MD and hospital course. 06/09/2024: For now, we are going to continue current management for the patient. We will continue oxygen supplementation via the high-flow nasal cannula 30 L 50% FiO2. We will continue to monitor the vital sign trend and treat accordingly. We will monitor the oral intake and supplement if necessary. We will also continue to monitor the I's and O's. We will supplement the sodium with sodium chloride tabs 1000 mg twice a day with meals. I am also going to hold the Lokelma today. We will monitor the electrolyte trend. The patient will continue on high-dose Bactrim, fluconazole, Mycelex and Solu-Medrol. We will continue to provide general supportive care, GI and DVT prophylaxis. Further orders per attending MD and hospital course. 06/10/2024: For now, going to continue current management for the patient. We will continue oxygen supplementation via high-flow nasal cannula and BiPAP during the night. We will monitor for any arrhythmias and we will treat accordingly. We will also monitor the oral intake and supplement if necessary. We will also continue to monitor the I's and O's. We will continue to supplement the sodium deficit with salt tabs as ordered. Going to discontinue the IV fluids. We will hold the Lokelma for now. Considering the patient is high risk for decompensation and need for intervention, she will remain in the ICU. Disposition for this patient would be to [facility] when her FiO2 requirements are 40% or less. We will continue to provide general supportive care, GI and DVT prophylaxis. Further orders per attending MD and hospital course. NEURO: Minimize central acting medications as possible. Fall Precautions. Well lighted room through the day and minimize interruptions through the night to prevent acute delirium. PULMONARY: Supplemental 02 as needed Titrate Fio2 to keep Spo2 > or = 90% DuoNebs and CPT as needed IS hourly while awake for pulmonary hygiene Out of bed to chair as tolerated CARDIOVASCULAR: Follow hemodynamics. Titrate vasopressor to keep MAP >65 or systolic blood pressure >95mmHg telemetry Drips none LINES: PIV GI & NUTRITION: Continue nutritional support Aspirations precautions Prokinetic agents and laxatives as needed KIDNEYS & ELECTROLYTES: Strict monitoring of intake and output Daily weights Avoid nephrotoxic agents Monitor electrolytes and replace as needed Goal urine output of 30mL/hr or 0.5mL/kg/hr ENDOCRINE: Maintain blood glucose between 100-180 at all times. Insulin sliding scale for blood glucose management INFECTIOUS DISEASE: Trend temperature. Clarke-culture if febrile. Micro: [ ] Sputum culture from 05/23/24 positive for MRSA, Betty albicans Pneumocystis carinii antigen positive Panculture: 06/02/24 Blood cultures Urine cultures Respiratory culture Antibiotics: Bactrim DS Fluconazole Mycelex HEMATOLOGY & COAGULATION: Monitor H&H. Keep Hgb > 7 Transfuse 1 unit of PRBC for Hgb < 7 Transfuse 1 pack of platelets of platelets < 20, 000 Watch for any signs and symptoms of bleeding SKIN: Pressure ulcer prevention per facility protocol Rehab: PT/OT Prophylaxis: GI: Pepcid DVT: Lovenox Code Status: Full Resuscitation Disposition: ICU Other: Total patient care time exceeds 45 minutes excluding all procedures. Case was discussed and seen with my supervising physician. The above plan was formulated and agreed upon. DAYRON RUBIN NP Jun 10, 2024 10:28
--- NOTE | 2024-06-10 13:23 | NUR ---
[facility] WILL CALL WHEN READY, CORDINATE WITH RESPIRATORY FOR POSSIBLE BI PAP Addendum: 06/10/24 at 1324 [address]
--- NOTE | 2024-06-10 13:34 | PN ---
[facility] PROGRESS NOTE Date of Service: Jun 10, 2024 Time of Service: 13:33 SUBJECTIVE: [ ] Ms. Abdullahi is a 49-year-old female that was seen and examined today on 05/23/2024. Patient is a good historian and personal health. Patient's son Dagoberto Salcido is at bedside. Patient states that she came to the emergency department with a chief complaint of shortness of breath. Onset was two weeks ago. Location is to lungs. Duration is on and off. Character is described as "easily running out of air." Initially shortness and breath was only aggravated with climbing one or two flights of stairs but symptoms have progressively worsened and patient becomes short of breath even standing or walking short distances. There was no alleviating factors however previously symptoms were being controlled with daily morning albuterol nebulizer treatments. Patient denies any associated chest pain or dizziness. Patient reports an episode of COVID in December 2023. emergency department CBC unremarkable, chemistry unremarkable, urinalysis unremarkable, influenza screen negative, COVID negative, blood gas shows PO2 less than 45. Chest x-ray shows left lower lung pneumonia and minimal right lung base atelectasis. Upon arrival to the emergency department patient was placed on a BiPAP due to respiratory distress. 05/24/2024-patient was seen and examined at the bedside, still on BiPAP. Patient is able to speak, and says she feels much better than before. Patient says after COVID in December she developed severe bronchitis and she was on Solu-Medrol and albuterol, which did not help her much and later she had high fevers and shortness of breath which is when she came to the ED.Vitals afebrile pulse 76, RR 38 tachypneic , blood pressure 115/68, pulse oxygen 99 on BiPAP flow of 60. On ABG pH 7.47, pCO2 29, PO2 109.4, oxygen saturation 98.3. [id number] potassium 4.1 BUN15 creatinine 0.5 GFR 114. We will closely monitor the patient. Medical Office Receptionist consult noted waiting on the recommendation 05/25/24 patient was seen and examined and case discussed with RN and family by the bedside. She was breathing better today. She has been on BiPAP all night but now he was on 100% non-rebreather with further efforts to continue to wean the oxygen requirements down. 05/27/24 patient is seen and examined at bedside, acute events overnight, case discussed with the RN, BP 131/64, afebrile, saturating 96-97% via Ventimask, FiO2 40%. The patient admits cough productive of clear phlegm. Serology tests reviewed, HIV preliminary positive, discussed with the patient. 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 We will continue the patient on IV antibiotics, continue fluconazole, continue to follow Pulmonary and ID input and recommendations. After provided in the preliminary results of HIV test, she denies any suicidal or homicidal ideations. 05/28 patient has been seen and examined, no acute events overnight, case discussed with the RN, during my visit patient is sitting comfortably in the chair, hemodynamically stable, off Ventimask, currently on 10 L via nasal cannula, saturating 98%, tolerated BiPAP overnight. she feels better, less shortness a breath, still admits cough productive of yellow phlegm. No chest pain. Getting IV antibiotics during my visit. HIV P24 antigen, nonreactive. We will continue to follow Pulmonary and Infectious Disease input and recommendations. 05/29 patient has been seen and examined, no acute events overnight, case discussed with the RN, during my visit patient is sitting comfortably in the chair, hemodynamically stable, remains on 10 L via nasal cannula, saturating 98% , still admits cough productive of yellow phlegm. No chest pain. Getting IV antibiotics during my visit. HIV P24 antigen, nonreactive. Pending CD4 cell count. We will continue to follow Pulmonary and Infectious Disease input and recommendations. 05/30 the patient has been seen and examined, no acute events overnight, BP 114/66, during my visit she is on Ventimask, saturating 95%, FiO2 60%. Without the Ventimask the patient desaturates to the low 70s. Patient tolerating BiPAP during the night. Still admits cough productive of thick yellow phlegm, no chest pain. Results of CD4 cell count reviewed, discussed with the patient. We will continue broad-spectrum IV antibiotics. Continue to follow Pulmonary and Infectious Disease input and recommendations. 05/31 the patient has been seen and examined, upgraded to the ICU, during my visit she is sitting in the chair, BP 113/72, heart rate of 109, she is on Oxymizer, 30 L, FiO2 100%. She is alert oriented x3, still admits cough productive of thick yellow phlegm, no chest pain. Hemoglobin 12.9, hematocrit 36.6, WBC 14.6. ABG with pH 7.4, pCO2 40, PO2. Chest x-ray shows left lower l obe infiltrate consistent with pneumonia. She is getting IV antibiotics during my visit. Patient will remain in the ICU, continue to follow critical Care as well as infectious disease input and recommendations. 06/01 patient is seen and examined, sitting comfortable in chair, awake, following commands, remains on high-flow oxygen, FiO2 70%, 30 L, BP 117/67, heart rate of 78, respiratory rate of 30-36, saturating 100%, CBC with a hemoglobin 13.6, hematocrit 38.9, WBC 12.4. Platelet count of 341. Chest x-ray showing persistent left lung infiltrate, cardiac size and mediastinum unremarkable. The bony structures are within the normal limits. Patient getting IV antibiotics during my visit. Patient to continue with the high-dose steroids. Serology test positive for Pneumocystis sandra. Patient on Bactrim two tablets p.o. t.i.d.. Continue also doxycycline and cefepime IV. Continue to follow infectious disease input and recommendation. Continue to follow Pulmonary input and recommendations. 06/02 patient is seen and examined at bedside, currently in prone position, alert oriented x3. CPT started last night, she has started having more loose phlegm expectorated. BP 114/74, tachycardic 114, saturating 95%, high-flow nasal cannula, 30 L, FiO2 80%. CBC with a hemoglobin 16.9, hemoglobin 14 0, hematocrit 39.8, platelet count 347. Chest x-ray shows persistent left lung infiltrate. 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 HIV preliminary positive, HIV P 24 nonreactive, HIV-one RNA by PCR [id number]. Serology test for toxoplasma currently pending. Patient on IV antibiotics as well as high-dose steroids. Continue to follow infectious Disease and Pulmonary input and recommendations. 06/03 patient seen at bedside, no acute events overnight. She continues with respiratory distress, with increasing oxygen requirements. Critical Care has discussed a possible need for intubation if she does not improve. She has been started on steroids due to underlying PCP pneumonia. WBC improved from 16.9 down to 13.5, sodium stable at 132, same as yesterday, lactic acid downtrending from 4.1 down to 3.2, remainder of her labs are relatively unremarkable. 06/04 patient seen at bedside, no acute events overnight. She remains on high- flow nasal cannula, mildly tachycardic. WBC elevated at 13.3, sodium decreased from 132 down to 129, remainder of her labs are relatively unremarkable. Continue to wean supplemental oxygen. Further care per critical Care 06/05 patient seen at bedside, no acute events overnight. She remains on high- flow nasal cannula with BiPAP overnight and is still tachycardic. Heart rate ranging from 104 up to 113, WBC improved from 13.3 down to 11.1, sodium decreased from 120 down to 126, remainder of her labs are relatively unremarkable. We will continue to wean oxygen as able. 06/06 Patient seen at bedside, no acute events overnight. She remains on high- flow nasal cannula with BiPAP overnight and is still tachycardic. Heart rate ranging from 104 up to 122, WBC improved from 11.1 down to 10.6, sodium improved from 126 up to 129, remainder of her labs are relatively unremarkable. We will continue to wean oxygen as able. 06/07 patient seen at bedside, no acute events overnight. She is still on high- flow nasal cannula, RT advised to wean oxygen, currently saturating 100% on 30L. She is tachycardic, sodium decreased from 129 down to 123, likely secondary to Bactrim. Patient is asymptomatic, will continue with bactrim, if sodium continues to decrease consider a holiday from bactrim. 06/08 patient seen at bedside, no acute events overnight. She is still on high- flow nasal cannula, RT advised to wean oxygen, currently saturating 100% on 30L. She is tachycardic, sodium stable at 123, same as yesterday. Pending improvement in respiratory status 06/09 patient seen at bedside, he remains on high-flow nasal cannula, we will continue to wean as able, appreciate pulmonology assistance, tachycardic with heart rate ranging from 123 up to 130. She is still having low-grade fevers at 100.8. Sodium increased from 123 up to 130, remainder of her labs are relatively unremarkable. 1/27 patient is seen and examined at bedside, remains on high-flow oxygen, she feels mildly anxious, no chest pain. Still with a cough productive of white phlegm. Still tachycardic, heart rate 117-122. Patient is still spiking low- grade fever. Hemoglobin 10.9, hematocrit 30.5. Sodium remained low at 128, BUN and creatinine of 16 and 0.4. REVIEW OF SYSTEMS 12 point review of systems negative unless noted in HPI PHYSICAL EXAM GENERAL APPEARANCE: The patient is awake, alert, and oriented, in no acute cardiopulmonary distress. NEUROLOGICAL: Cranial nerves II-XII grossly intact. Motor is 5/5 in bilateral upper and lower extremities proximal to distal. No sensory deficits. HEENT: Face is symmetric. Pupils are equal and reactive. Extraocular movements are intact. NECK: Supple. No JVD. No thyromegaly. No submental, submandibular, pre- /postauricular, occipital or supraclavicular lymphadenopathy. CHEST: Normal chest expansion. No Telemetry. LUNGS: Absence of any rales, rhonchi or any wheezing. CARDIOVASCULAR: Regular. S1 and S2 normal. No appreciable rubs, murmurs or gallops. ABDOMEN: Soft, nontender, and nondistended. There is no rebound, voluntary guarding, or rigidity. : Deferred. No Souza. EXTREMITIES: Non-edematous and not cyanotic. No clubbing. Good capillary refill. SKIN: No skin breakdown. Vital Signs (last 8hr) Date Time Temp Pulse Resp B/P (MAP) Pulse Ox O2 Delivery O2 Flow Rate FiO2 06/10/24 12:42 98.8 06/10/24 11:13 94 Hi-Flow N/C+ 30 70 Bi-PAP+ 06/10/24 09:15 117 22 HFNC Heated System N/Can 30.0 65 06/10/24 07:55 122 30 70 06/10/24 06:46 128 20 06/10/24 06:00 124 34 117/72 93 N/C High Flow System 70 LABS: Laboratory: Test 06/10/24 03:57 06/09/24 09:28 06/09/24 04:07 Range/Units White Blood Count 8.9 4.8-10.8 K/uL Red Blood Count 3.38 L 4.00-5.50 MIL/uL Hemoglobin 10.9 L 12.0-16.0 g/dL Hematocrit 30.5 L 36-48 % Mean Corpuscular Volume 90.2 79-99 fL Mean Corpuscular Hemoglobin 32.2 27.0-33.0 pg Mean Corpuscular Hemoglobin Concent 35.7 32.0-36.0 g/dL Red Cell Distribution Width 11.4 11.0-15.5 % Platelet Count 166 130-400 K/uL Mean Platelet Volume 9.6 7.5-10.5 fL Immature Granulocyte % (Auto) 0.6 0-1 % Neutrophils (%) (Auto) 89.5 H 40.0-77.0 % Lymphocytes (%) (Auto) 6.0 L 21.0-51.0 % Monocytes (%) (Auto) 2.0 L 3.0-13.0 % Eosinophils (%) (Auto) 1.8 0.0-8.0 % Basophils (%) (Auto) 0.1 0.0-5.0 % Neutrophils # (Auto) 8.0 H 1.8-7.7 K/uL Lymphocytes # (Auto) 0.5 L 1.0-4.8 K/uL Monocytes # (Auto) 0.2 0.1-1.0 K/uL Eosinophils # (Auto) 0.16 0.00-0.70 K/uL Basophils # (Auto) 0.01 0.00-0.20 K/uL Absolute Immature Granulocyte (auto 0.05 0-1 K/uL Nucleated Red Blood Cells 0.0 0.0-0.19 % Sodium Level 128 L 136-145 mmol/L Potassium Level 3.8 3.5-5.1 mmol/L Chloride Level 93 L 101-111 mmol/L Carbon Dioxide Level 27 21-32 mmol/L Blood Urea Nitrogen 16 7-18 mg/dL Creatinine 0.4 L 0.5-1.0 mg/dL Glomerular Filtration Rate Calc 121 >90 mL/min Random Glucose 111 H 70-105 mg/dL Total Calcium 7.8 L 8.5-10.1 mg/dL Free Thyroxine (T4) Direct 0.93 0.76-1.46 ng/dL White Cell Morphology Comment See comments Current Medications Medications (Trade) Dose Ordered Sig/Julita Route PRN Reason Start Time Stop Time Status Last Admin Dose Admin Acetaminophen (TYLenol 650MG ELIXIR) 650 mg Q6H PRN PO MILD PAIN (1-3) 06/04/24 08:30 07/04/24 08:29 06/10/24 12:42 650 MG Acetaminophen (TYLenol 650MG SUPPOSITORY) 650 mg Q6H PRN RC MILD PAIN (1-3) 05/23/24 20:30 06/22/24 20:29 Acetylcysteine (MUComyst 20% 4ML) 400mg = 2ml [id number] IH 06/02/24 00:00 06/05/24 15:52 DC 06/05/24 11:35 200 MG Albuterol (DUOneb) 1 udvial [id number] IH 05/24/24 00:00 06/10/24 10:28 DC 06/10/24 06:45 1 UDVIAL Alprazolam (XANax 0.5MG) 0.5 mg Q8H PRN PO ANXIETY 06/10/24 13:30 07/10/24 13:29 UNV Azithromycin 250 ml @ 250 mls/hr Q24H IVPB 05/24/24 17:00 05/24/24 14:41 DC Azithromycin 250 ml @ 250 mls/hr Q24H STAT IVPB 05/23/24 17:17 05/24/24 14:41 DC 05/23/24 17:45 250 MLS/HR Benzocaine (Cepacol Sore Throat Lozenge) 1 each Q4H PRN MM SORE THROAT 06/08/24 10:00 07/08/24 09:59 06/09/24 07:44 1 EACH Bisacodyl (DulcoLAX) 10 mg DAILY PRN RC CONSTIPATION 06/08/24 14:00 07/08/24 13:59 06/09/24 17:22 10 MG Cefepime HCl (MAXipime 2 gm vial) 2 gm Q12H IVPB 05/24/24 15:00 06/03/24 14:59 DC 06/03/24 03:18 2 GM Ceftriaxone Sodium (ROCEphine 1G INJ) 1 gm Q24H IVPB 05/24/24 17:30 05/24/24 14:41 DC Chlorhexidine Gluconate (Peridex) 15 ml Q6H MM 06/07/24 17:00 06/21/24 16:59 06/10/24 12:22 15 ML Clotrimazole (Mycelex) 10 mg TID MM 06/04/24 21:00 07/04/24 20:59 06/10/24 08:46 10 MG Doxycycline Hyclate 250 ml @ 125 mls/hr Q12H IV 05/24/24 16:30 06/03/24 16:29 DC 06/03/24 04:23 125 MLS/HR Enoxaparin Sodium (Lovenox) 40 mg Q24H SQ 05/23/24 21:00 06/22/24 20:59 06/09/24 20:31 40 MG Famotidine (Pepcid 20mg Vial) 20 mg DAILY IV 05/24/24 09:00 06/23/24 08:59 06/10/24 08:47 20 MG Fluconazole (DiFLUCan 100 mg TAB) 200 mg DAILY PO 06/05/24 09:00 07/05/24 08:59 06/10/24 08:47 200 MG Fluconazole/ Sodium Chloride 100 ml @ 100 mls/hr DAILY IV 05/26/24 09:00 05/27/24 15:57 DC 05/27/24 09:07 100 MLS/HR Furosemide (LASix 20MG VIAL) 20 mg DAILY IV 05/31/24 09:00 06/07/24 13:18 DC 06/03/24 08:38 20 MG Guaifenesin/ Dextromethorphan (RobiTUSSin DM 200/20MG 10ML) 10 ml Q4H PRN PO COUGH 05/23/24 20:30 06/22/24 20:29 06/10/24 12:42 10 ML Ipratropium Norman (AtrovENT UD) 0.5 MG [id number] IH 06/10/24 14:00 07/10/24 13:59 Lactated Ringer's (Lactated Ringers 1000ml) 500 ml ONCE IV 06/02/24 20:00 06/02/24 19:54 DC Levofloxacin/ Dextrose 100 ml @ 100 mls/hr Q24H IV 05/24/24 15:00 05/24/24 16:16 DC Magnesium Sulfate 50 ml @ 0 mls/hr PROTOCOL PRN IV hypomagnesemia 05/28/24 08:00 06/27/24 07:59 Methylprednisolone Sodium Succinate (Solu-medROL 40MG) 20 mg Q12H IVP 06/05/24 07:00 06/09/24 09:13 DC 06/09/24 07:25 20 MG Methylprednisolone Sodium Succinate (Solu-medROL 40MG) 40 mg Q12H IVP 05/28/24 18:00 05/29/24 16:45 DC 05/29/24 05:32 40 MG Methylprednisolone Sodium Succinate (Solu-medROL 40MG) 40 mg Q6H IVP 05/29/24 16:30 06/04/24 16:44 DC 06/04/24 11:13 40 MG Methylprednisolone Sodium Succinate (Solu-medROL 40MG) 40 mg Q6H IVP 06/04/24 18:00 06/05/24 00:24 DC 06/04/24 23:48 40 MG Methylprednisolone Sodium Succinate (Solu-medROL 40MG) 40 mg Q8H IVP 05/24/24 01:00 05/25/24 21:51 DC 05/25/24 17:28 40 MG Methylprednisolone Sodium Succinate (Solu-medROL 40MG) 60 mg Q6H IVP 05/25/24 22:00 05/28/24 02:25 DC 05/27/24 23:55 60 MG Methylprednisolone Sodium Succinate (Solu-medROL 40MG) 60 mg Q6H IVP 05/28/24 06:00 05/28/24 08:27 DC 05/28/24 06:47 60 MG Metronidazole/ Sodium Chloride (flaGYL) 500 mg Q8H IV 05/25/24 22:00 05/25/24 21:56 DC Ondansetron HCl (zoFRAN 4MG INJ) 4 mg Q6H PRN IV NAUSEA/VOMITING 05/23/24 20:30 06/22/24 20:29 Potassium Chloride 100 ml @ 100 mls/hr AD PRN IV POTASSIUM PROTOCOL 05/28/24 08:00 06/27/24 07:59 Potassium Chloride (K-Dur/Klor-Con 20meq) 20 meq AD PRN PO POTASSIUM PROTOCOL 05/28/24 08:00 06/27/24 07:59 Potassium Chloride (KCl 10% Elixir 20meq/15ml) 20 meq AD PRN PO POTASSIUM PROTOCOL 05/28/24 08:00 06/27/24 07:59 Prednisone (deltaSONE/ oraSONE 20MG TAB) 20 mg DAILY PO 06/10/24 09:00 07/10/24 08:59 06/10/24 08:47 20 MG Sodium Chloride 500 ml @ 500 mls/hr Q1H IV 06/02/24 20:00 06/02/24 20:59 DC 06/02/24 21:34 500 MLS/HR Sodium Chloride 1,000 ml @ 75 mls/hr [id number] IV 06/07/24 13:30 07/07/24 13:29 06/10/24 09:05 75 MLS/HR Sodium Chloride (Sodium Chloride) 1,000 mg BIDAC PO 06/07/24 16:30 06/09/24 07:28 DC 06/08/24 16:58 1,000 MG Sodium Chloride (Sodium Chloride) 1,000 mg BIDAC PO 06/09/24 07:30 07/09/24 07:29 06/10/24 06:02 1,000 MG Sodium Zirconium Cyclosilicate (Lokelma) 5 gm DAILY10 PO 06/08/24 10:30 06/10/24 10:29 DC 06/08/24 10:50 5 GM Trimethoprim/ Sulfamethoxazole (BactRIM DS) 1 tab BID PO 05/26/24 21:00 05/29/24 16:18 DC 05/29/24 08:07 1 TAB Trimethoprim/ Sulfamethoxazole (BactRIM DS) 2 tab TID PO 05/29/24 16:30 06/05/24 20:59 DC 06/05/24 14:55 2 TAB Trimethoprim/ Sulfamethoxazole (BactRIM DS) 2 tab TID PO 06/06/24 09:30 09/11/24 09:29 06/10/24 08:47 2 TAB DIAGNOSTICS / RADIOLOGY: [ ] ASSESSMENT: Acute hypoxemic respiratory failure, POA Bilateral lower lobe bacterial pneumonia + MRSA POA, +Azra Suspected PCP PNA based on CT findings vs viral/Atypical PNA . POA HIV positive (preliminary report, confirmatory test nonreactive) POA Normocytic anemia, not POA Neutrophilia, POA Hyperglycemia, POA Obesity BMI of 32.3 Former smoker Acute cystitis, POA Fatty liver, POA Moderate hypoalbuminemia POA Previous COVID-19 infection PLAN: Continue ICU Continue the patient on BiPAP alternating with high-flow oxygen Continue the patient on high-dose steroids Continue Bactrim Continue doxycycline Continue lasix 20mg q24h Continue broad-spectrum antibiotic with doxycycline, and cefepime IV Continue to follow Pulmonary input recommendation Continue to follow infectious disease input and recommendation Follow serology test for toxoplasma gone the Follow chest x-ray Continue bronchodilators per respiratory therapist Replace electrolytes IV per protocol A.m. labs GI and DVT prophylaxis. Further orders to follow based on the above results Infectious disease consulted, appreciate recommendations Disposition: Remains admitted to the ICU, pending improvement in clinical condition. Total ICU time spent greater than 30 minutes. GAIL WALDRON MD Jun 10, 2024 13:34
[2024-06-10] MEDS: IpraTROPium 0.5 MG/2.5 ML INH IH SCH (13:46)
[2024-06-10] MEDS: hydrOXYzine 25 MG TABLET PO PRN (13:58)
[2024-06-10] MEDS: ALPRAZolam 0.5 MG TABLET PO PRN (15:35)
--- NOTE | 2024-06-10 17:04 | PN ---
INFECTIOUS DISEASE PROGRESS NOTE Date of Service: Jun 10, 2024 SUBJECTIVE: This is a 49-year-old female patient who was admitted with chief complaint of shortness of breaths. A chest x-ray done on admission showed left lower lung pneumoniae. A CT chest showed bilateral pulmonary infiltrates but no evidence of PE. 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 Patient was seen and examined at bedside in the ICU room 208. Patient is awake, alert and oriented x 3. Patient continued with elevated fevers throughout the night with the highest one recorded of 102.7. Current temperature this morning is 98.8. We will swab patient for COVID and influenza. Patient is currently on BiPAP support and alternating with high-flow oxygen for meals. Continues on Bactrim p.o. t.i.d. and fluconazole. Patient also continues on Mycelex for oral lesion and oral candidiasis. Family members visiting at bedside. We will continue to follow patient's care. PHYSICAL EXAM EYES: Anicteric. Pupils equal and reactive. HENT: No oral thrush seen, moist Oral mucosa. Oral candidiasis. NECK: Supple, no JVD or thyromegaly. LUNGS: Lung sounds diminished. Dyspnea. On high-flow Oxygen support. CARDIOVASCULAR: S1, S2 regular. No murmur heard. ABDOMEN: Soft, non tender, bowel sounds present, no organomegaly. CENTRAL NERVOUS SYSTEM: Awake, alert, oriented x 3. SKIN: No rashes, no swelling. LYMPHATICS: No peripheral lymphadenopathy. MUSCULOSKELETAL: No joint swelling, erythema or tenderness. EXTREMITIES: No cyanosis or clubbing. BACK: No deformity, no pressure ulcer. GENITOURINARY: No dysuria or hematuria. Vital Sign (Last 12 Hours) 06/10/24 06/10/24 06/10/24 06/10/24 05:00 06:00 06:46 07:46 Temp 98.1 Pulse 125 124 128 119 Resp 33 34 20 31 B/P (MAP) 115/71 117/72 113/60 Pulse Ox 95 93 100 O2 Delivery N/C High Flow System N/C High Flow System BIPAP O2 Flow Rate 30.0 30.0 FiO2 70 70 70 06/10/24 06/10/24 06/10/24 06/10/24 07:55 08:00 08:46 09:15 Pulse 122 117 117 Resp 30 37 22 B/P (MAP) 122/71 Pulse Ox 94 97 O2 Delivery Bi-PAP+ BIPAP HFNC Heated System N/Can O2 Flow Rate 30.0 FiO2 70 70 70 65 06/10/24 06/10/24 06/10/24 06/10/24 09:46 10:46 11:00 11:46 Temp 98.8 Pulse 121 125 120 117 Resp 34 36 35 32 B/P (MAP) 117/66 106/45 133/87 Pulse Ox 94 91 93 95 O2 Delivery N/C High Flow System N/C High Flow System N/C High Flow System O2 Flow Rate 30.0 30.0 30.0 FiO2 70 70 70 06/10/24 06/10/24 06/10/24 06/10/24 12:00 12:42 12:46 13:46 Temp 98.8 Pulse 123 125 Resp 37 43 B/P (MAP) 141/61 139/72 Pulse Ox 94 95 100 O2 Delivery Bi-PAP+ N/C High Flow System N/C High Flow System O2 Flow Rate 30.0 30.0 FiO2 70 70 70 06/10/24 06/10/24 06/10/24 06/10/24 13:47 13:52 14:46 15:46 Pulse 121 122 117 115 Resp 26 33 38 47 B/P (MAP) 124/51 120/94 Pulse Ox 96 96 O2 Delivery BIPAP BIPAP FiO2 65 70 Intake & Output (last 24hrs) 06/09/24 06/09/24 06/10/24 15:00 23:00 07:00 Intake Total 1895.0 ml 765.0 ml Output Total 2100 ml 400 ml Balance -205.0 ml 365.0 ml LABS: Laboratory: Test 06/10/24 03:57 06/09/24 09:28 06/09/24 04:07 Range/Units White Blood Count 8.9 4.8-10.8 K/uL Red Blood Count 3.38 L 4.00-5.50 MIL/uL Hemoglobin 10.9 L 12.0-16.0 g/dL Hematocrit 30.5 L 36-48 % Mean Corpuscular Volume 90.2 79-99 fL Mean Corpuscular Hemoglobin 32.2 27.0-33.0 pg Mean Corpuscular Hemoglobin Concent 35.7 32.0-36.0 g/dL Red Cell Distribution Width 11.4 11.0-15.5 % Platelet Count 166 130-400 K/uL Mean Platelet Volume 9.6 7.5-10.5 fL Immature Granulocyte % (Auto) 0.6 0-1 % Neutrophils (%) (Auto) 89.5 H 40.0-77.0 % Lymphocytes (%) (Auto) 6.0 L 21.0-51.0 % Monocytes (%) (Auto) 2.0 L 3.0-13.0 % Eosinophils (%) (Auto) 1.8 0.0-8.0 % Basophils (%) (Auto) 0.1 0.0-5.0 % Neutrophils # (Auto) 8.0 H 1.8-7.7 K/uL Lymphocytes # (Auto) 0.5 L 1.0-4.8 K/uL Monocytes # (Auto) 0.2 0.1-1.0 K/uL Eosinophils # (Auto) 0.16 0.00-0.70 K/uL Basophils # (Auto) 0.01 0.00-0.20 K/uL Absolute Immature Granulocyte (auto 0.05 0-1 K/uL Nucleated Red Blood Cells 0.0 0.0-0.19 % Sodium Level 128 L 136-145 mmol/L Potassium Level 3.8 3.5-5.1 mmol/L Chloride Level 93 L 101-111 mmol/L Carbon Dioxide Level 27 21-32 mmol/L Blood Urea Nitrogen 16 7-18 mg/dL Creatinine 0.4 L 0.5-1.0 mg/dL Glomerular Filtration Rate Calc 121 >90 mL/min Random Glucose 111 H 70-105 mg/dL Total Calcium 7.8 L 8.5-10.1 mg/dL Free Thyroxine (T4) Direct 0.93 0.76-1.46 ng/dL White Cell Morphology Comment See comments ASSESSMENT: Acute hypoxic respiratory failure, requiring high-flow oxygen support. Pneumocystis carinii pneumonia. Infection with methicillin-resistant Staphylococcus aureus. Positive HIV test. Leukocytosis, resolved. Obesity. Oral candidiasis. PLAN: Continue Bactrim DS b.i.d p.o.. Continue fluconazole p.o. Obtain COVID and influenza swab. Continue Mycelex. Continue steroids. Continue GI prophylaxis. Continue oxygen support, currently on BiPAP alternating with high-flow oxygen. Continue bronchodilators. Continue DVT prophylaxis. This case was reviewed and discussed with my supervising physician and the above assessment and plan was formulated and agreed upon. ATTESTATION BY PHYSICIAN I have seen and examined the patient. I reviewed the documentation, medical decision making, and treatment plan as noted by the mid-level provider above. I agree with the findings and plan of care. [place] MD, MIRTA L [facility] Jun 10, 2024 17:04
--- NOTE | 2024-06-10 17:07 | NUR ---
CT ON HOLD TILL 06/11/24 IN THE MORNING NURSE NICHELLE STATES PT CAN NOT LAY FLAT. PT IS FINALLY SLEEPING AND SON WOULD LIKE HIS MOTHER TO REST. NICHELLE STATE TO TRY AGAIN IN THE MORNING.
--- NOTE | 2024-06-10 19:00 | NUR ---
Spoke to patient son and neice at bedside. discussed wishes re intubation, NR. Patiet ariana to be "full code, including intubation", but wetzel not want YT. MPOA signed, listing on as decision maker Witnessed by program services assistant. Report to oncoming shift, precedex and other comfort meaures pendig patient awake anxious and alert at time of MPOA.
--- NOTE | 2024-06-10 19:30 | NUR ---
FOOD BROKER FOR BENCHMARK PAGED, PATIENT SAT 70S, RR 40S, HR 140-150, PATIENT ON BIPAP. NEW ORDERS RECEIVED AND CARRIED OUT
[2024-06-10] MEDS: dexmedeTOMIDine 400MCG/NS100ML IV ONE (19:51)
[2024-06-10 20:47] LABS: ABG BASE EXCESS -0.1 mmol/L (-2.0-3.0); ABG HCO3 23.6 mmol/L (21.0-28.0); ABG OXYGEN SATURATION 92.8 % (94.0-98.0); ABG PCO2 36 mmHg (32-45); ABG PH 7.441 (7.350-7.450); CARBON MONOXIDE 0.3 % (0.5-1.5); DEVICE COMMENT BIPAP RN IRMA; HHb 7.1; PO2, ARTERIAL BG 68.1 mmHg (83.0-108.0); VENT MODE, BG ST R (ROOM AIR)
[2024-06-11] VITALS (99 sets, daily range): BP systolic 91–181; BP diastolic 43–104; PULSE 73–133; RESP 16–65; TEMP 97.9–99; O2SAT 88–96
--- NOTE | 2024-06-11 00:15 | NUR ---
MARBLE MACHINE OPERATOR FOR BENCHMARK PAGES, RE: ABG RESULTS. NEW ORDERS RECEIVED AND CARRIED OUT PATIENT CONTNUES WITH BIPAP AT 100%, HR 120-130S, RR 20-30S.
[2024-06-11] MEDS: dexmedeTOMIDine 400MCG/NS100ML IV SCH (00:22)
[2024-06-11 01:11] LABS: ABG BASE EXCESS 3.3 mmol/L (-2.0-3.0); ABG HCO3 27.9 mmol/L (21.0-28.0); ABG OXYGEN SATURATION 93.4 % (94.0-98.0); ABG PCO2 42 mmHg (32-45); ABG PH 7.436 (7.350-7.450); CPAP, BG 12 cm H2O; DEVICE COMMENT RN, IRMA; PO2, ARTERIAL BG 65.1 mmHg (83.0-108.0); VENT MODE, BG LR BIPAP (ROOM AIR)
[2024-06-11] MEDS: furoSEMIDE 40MG VIAL IV ONE (02:46)
[2024-06-11] MEDS: Solu-medROL 40MG VIAL IVP SCH (02:46)
[2024-06-11] MEDS: Solu-medROL 40MG VIAL ONE (02:47)
[2024-06-11] MEDS: furoSEMIDE 40MG VIAL ONE (02:47)
[2024-06-11 02:57] LABS: BASOPHILS # (AUTO) 0.01 K/uL (0.00-0.20); BASOPHILS % (AUTO) 0.1 % (0.0-5.0); EOSINOPHILS # (AUTO) 0.09 K/uL (0.00-0.70); EOSINOPHILS % (AUTO) 1.3 % (0.0-8.0); HEMATOCRIT 31.3 % (36-48); IMMATURE GRANULOCYTE ABSOLUTE 0.04 K/uL (0-1); LYMPHOCYTES # (AUTO) 0.3 K/uL (1.0-4.8); LYMPHOCYTES % (AUTO) 3.6 % (21.0-51.0); MEAN CORPUSCULAR HEMOGLOBIN 32.6 pg (27.0-33.0); MEAN CORPUSCULAR HGB CONC 34.8 g/dL (32.0-36.0); MEAN CORPUSCULAR VOLUME 93.7 fL (79-99); MONOCYTES # (AUTO) 0.2 K/uL (0.1-1.0); MONOCYTES % (AUTO) 2.1 % (3.0-13.0); NEUTROPHILS # (AUTO) 6.6 K/uL (1.8-7.7); NEUTROPHILS % (AUTO) 92.3 % (40.0-77.0); PLATELET COUNT (AUTO) 142 K/uL (130-400); RED BLOOD CELL COUNT(AUTO) 3.34 MIL/uL (4.00-5.50); RED CELL DISTRIBUTION WIDTH 11.6 % (11.0-15.5); WHITE BLOOD COUNT (AUTO) 7.2 K/uL (4.8-10.8)
[2024-06-11 03:03] LABS: ABG BASE EXCESS 1.6 mmol/L (-2.0-3.0); ABG HCO3 26.5 mmol/L (21.0-28.0); ABG OXYGEN SATURATION 93.2 % (94.0-98.0); ABG PCO2 42 mmHg (32-45); ABG PH 7.413 (7.350-7.450); CARBON MONOXIDE 0.3 % (0.5-1.5); DEVICE COMMENT LR RN IRMA; HHb 6.7; PO2, ARTERIAL BG 69.4 mmHg (83.0-108.0); VENT MODE, BG AVAPS (ROOM AIR)
--- NOTE | 2024-06-11 03:10 | NUR ---
ACADEMIC REGISTRAR NICO AT BEDSIDE, SPEAKING WITH SON AND PATIENT REGARDING INCREASED RESP DISTRESS, NEED FOR INTUABTION. PATIENT AND SON BOTH DECLINED, STATING "NOT YET" PER PATIENT WANTS TO BE INTUBATED A LAST RESORT, SON VERBALIZED TO RESPECT PATIENTS WISHES AND WAIT. BOTH PROVIDED EDUCATION REGARDING THE NEED AND RISK AND BENEFITS. BOTH REQUESTED TO WAIT A LITTLE LONGER.
[2024-06-11 03:13] LABS: ALBUMIN 1.7 g/dL (3.5-5.0); BILIRUBIN,TOTAL 0.3 mg/dL (0.2-1.0); CREATININE 0.6 mg/dL (0.5-1.0); MAGNESIUM 1.9 mg/dL (1.80-2.40); POTASSIUM 4.2 mmol/L (3.5-5.1); TOTAL PROTEIN, SERUM 5.5 g/dL (6.0-8.3)
[2024-06-11] MEDS: morPHINE 4 MG SYG IM PRN (03:27)
--- NOTE | 2024-06-11 03:36 | PN ---
[facility] PROGRESS NOTE Date Patient Seen: Jun 11, 2024 Time of Visit: 03:35 Supervising Physician: Dr. Lundberg Primary Care Physician: Stu Foss MD Outpatient Specialists: Inpatient Consults: Pulmonology PROBLEM LIST: Severe ARDS Acute hypoxemic respiratory failure, POA on BIPAP 100% FIO2, requiring BIPAP intubation but declined by patient for now Bilateral lower lobe bacterial pneumonia + MRSA POA, +Azra Confirmed PCP PNA per Ag (serology), POA Elevated DDIMER r/o PE & DVT New HIV/AIDS positive POA Hyponatremia and hyperkalemia, suspected Bactrim induced Normocytic anemia, not POA Neutrophilia, POA Hyperglycemia, POA Obesity BMI of 32.3 Former smoker Fatty liver, POA Moderate hypoalbuminemia POA Previous COVID-19 infection INTERVAL HISTORY: 06/10/2024: At the time of my evaluation, the patient was lying in bed. Per the patient report, she had a anxiety episode overnight. He is awake alert and oriented x4. She remains intermittently febrile most recent 100.8. On a monitor, the patient is normotensive without any pressor support. She remains tachycardic up in the 120s. The patient remains on oxygenation with high-flow nasal cannula 30 L/70% FiO2 and denies any hypoxemic event. She continues to feed orally, no complaint of nausea vomiting or diarrhea. The patient reports voiding without difficulty. Intake and output shows a intake of 2006 units 60.0, output of 2500 and a positive balance of 160.0. Laboratory data review of significance showed no changes of concern on CBC, chemistry panel of significance showed a sodium count of 128, potassium of 3.8, chloride of 93 and the remaining parameters were unremarkable. Blood cultures showing no growth. A chest CT was ordered and is pending. No other complaint. 06/11/24: 02:07 RN called. Reports patient is tachypneic, RR 30s-40s bpm. On BiPAP at 100% FiO2,12/6, rate 16 bpm. Patient was changed to AVAPS and ABGs were redrawn, pH 7.413, PO2 69.4, pCO2 42.4. The patient is on Precedex but she had to go down on Precedex due to hypotension. RN reports that patient is not sedated with Precedex due to having to slow down hypotension. Added Mario- Synephrine IV drip. 03:38 RN called that patient remains tachypneic. Lasix 40 mg IV x1 dose ordered, Solu-Medrol IV 60 IV q.6, BNP, and D-dimer were ordered. I went to assess the patient at bedside. I explained to the patient and significant other at bedside the ABGs results. I informed that the patient is tachypneic, RR 44 bpm, tachycardic 123, and ABGs showed hypoxia at 69.4. I spent a lengthy amount of time educating the patient on her guarded/critical condition. They verbalized understanding. Both of them report that they are not ready for intubation, but we will allow intubation if does not improve. I showed them of the retractions that the patient has and the abdominal breathing. They verbalized understanding and continued to request to hold on intubation for now. Per chart review CTA on 05/24/2024 was negative for a PE. Bilateral pulmonary infiltrates with segmental atelectasis. Two days BNP was WNL. D-dimer was 4641. REVIEW OF SYSTEMS: Unable to obtain ROS from patient due to patient's medical condition. PHYSICAL EXAM: GENERAL: alert, weak, awake oriented x 3 HEENT: EOMI, Sclera non icteric, moist mucosa NECK: Supple, no JVD, trachea midline LUNGS: Tachypneic, RR 44 beats per minute, 91% on BiPAP, 100% FiO2, No wheezes. HEART: Regular rate and rhythm. Normal S1 and S2, without murmurs ABD: Abdomen soft, nontender. Bowel sounds present EXT: No clubbing cyanosis or edema NEURO: Alert and oriented to person, follows commands Vital Signs (last 8hr) Date Time Temp Pulse Resp B/P (MAP) Pulse Ox O2 Delivery O2 Flow Rate FiO2 06/11/24 03:08 123 41 06/11/24 03:00 117 44 149/67 92 AVAPS 100 06/11/24 02:36 125 40 100 06/11/24 02:00 133 51 134/104 75 BIPAP 100 06/11/24 01:00 112 37 118/65 93 BIPAP 100 06/11/24 00:46 117 39 100 06/11/24 00:00 99.0 112 37 118/65 93 BIPAP 100 06/11/24 00:00 92 Bi-PAP+ 100 06/10/24 23:45 127 40 100 06/10/24 23:44 119 26 06/10/24 23:00 113 36 115/49 95 BIPAP 100 06/10/24 22:00 108 37 122/69 97 BIPAP 100 06/10/24 21:30 101 32 82/36 99 BIPAP 100 06/10/24 21:00 106 37 103/71 97 BIPAP 100 06/10/24 20:07 98.4 06/10/24 20:00 98.4 104 39 92/26 96 BIPAP 100 06/10/24 20:00 73 Bi-PAP+ 70 LABS: Hematology Labs: Test 06/11/24 02:42 06/09/24 04:07 Range/Units White Blood Count 7.2 4.8-10.8 K/uL Red Blood Count 3.34 L 4.00-5.50 MIL/uL Hemoglobin 10.9 L 12.0-16.0 g/dL Hematocrit 31.3 L 36-48 % Mean Corpuscular Volume 93.7 79-99 fL Mean Corpuscular Hemoglobin 32.6 27.0-33.0 pg Mean Corpuscular Hemoglobin Concent 34.8 32.0-36.0 g/dL Red Cell Distribution Width 11.6 11.0-15.5 % Platelet Count 142 130-400 K/uL Mean Platelet Volume 9.4 7.5-10.5 fL Immature Granulocyte % (Auto) 0.6 0-1 % Neutrophils (%) (Auto) 92.3 H 40.0-77.0 % Lymphocytes (%) (Auto) 3.6 L 21.0-51.0 % Monocytes (%) (Auto) 2.1 L 3.0-13.0 % Eosinophils (%) (Auto) 1.3 0.0-8.0 % Basophils (%) (Auto) 0.1 0.0-5.0 % Neutrophils # (Auto) 6.6 1.8-7.7 K/uL Lymphocytes # (Auto) 0.3 L 1.0-4.8 K/uL Monocytes # (Auto) 0.2 0.1-1.0 K/uL Eosinophils # (Auto) 0.09 0.00-0.70 K/uL Basophils # (Auto) 0.01 0.00-0.20 K/uL Absolute Immature Granulocyte (auto 0.04 0-1 K/uL Nucleated Red Blood Cells 0.0 0.0-0.19 % White Cell Morphology Comment See comments Chemistry Labs: Test 06/11/24 02:42 06/09/24 09:28 Range/Units Sodium Level 128 L 136-145 mmol/L Potassium Level 4.2 3.5-5.1 mmol/L Chloride Level 94 L 101-111 mmol/L Carbon Dioxide Level 33 H 21-32 mmol/L Blood Urea Nitrogen 15 7-18 mg/dL Creatinine 0.6 0.5-1.0 mg/dL Glomerular Filtration Rate Calc 109 >90 mL/min Random Glucose 103 70-105 mg/dL Total Calcium 7.9 L 8.5-10.1 mg/dL Magnesium Level 1.90 1.80-2.40 mg/dL Total Bilirubin 0.3 0.2-1.0 mg/dL Aspartate Amino Transf (AST/SGOT) 69 H 10-37 U/L Alanine Aminotransferase (ALT/SGPT) 76 12-78 U/L Alkaline Phosphatase 131 50-136 U/L B-Type Natriuretic Peptide 11 0-100 pg/mL Total Protein 5.5 L 6.0-8.3 g/dL Albumin 1.7 L 3.5-5.0 g/dL Free Thyroxine (T4) Direct 0.93 0.76-1.46 ng/dL Coagulation Labs: Test 06/11/24 02:42 Range/Units D-Dimer Quantitative (PE/DVT) 4641 *H 0-500 ng/mL DIAGNOSTICS / RADIOLOGY RESULTS: [ ] PLAN Monitor respirations status closely. Continue BiPAP to keep SpO2 equal to greater than 92 %. Plan to intubate the patient due to respiratory failure, patient declined. Reports we will consider later if she does not improve. Change prednisone 20 mg p.o. daily to Solu-Cortef 100 MG IV Q.8H. Continue Atrovent q.4 hours. Continue Precedex IV drip per protocol. Start Mario-Synephrine IV drip. Start Lovenox1 milligram/kilogram b.i.d.. Added venous Doppler and chest x-ray PE protocol. Abx Per ID Trend Lactic acid. burlap worker to discuss advance directives. NEURO: Minimize central acting medications as possible. Fall Precautions. Well lighted room through the day and minimize interruptions through the night to prevent acute delirium. PULMONARY: Supplemental 02 as needed Titrate Fio2 to keep Spo2 > or = 90% DuoNebs and CPT as needed IS hourly while awake for pulmonary hygiene Out of bed to chair as tolerated CARDIOVASCULAR: Follow hemodynamics. Titrate vasopressor to keep MAP >65 or systolic blood pressure >95mmHg telemetry LINES: PIV GI & NUTRITION: Continue nutritional support Aspirations precautions Prokinetic agents and laxatives as needed KIDNEYS & ELECTROLYTES: Strict monitoring of intake and output Daily weights Avoid nephrotoxic agents Monitor electrolytes and replace as needed Goal urine output of 30mL/hr or 0.5mL/kg/hr ENDOCRINE: Maintain blood glucose between 100-180 at all times. Insulin sliding scale for blood glucose management INFECTIOUS DISEASE: Trend temperature. Clarke-culture if febrile. Sputum culture from 05/23/24 positive for MRSA, Betty albicans Pneumocystis carinii antigen positive Panculture: 06/02/24 Blood cultures Urine cultures Respiratory culture Antibiotics: Bactrim DS Fluconazole Mycelex HEMATOLOGY & COAGULATION: Monitor H&H. Keep Hgb > 7 Transfuse 1 unit of PRBC for Hgb < 7 Transfuse 1 pack of platelets of platelets < 20, 000 Watch for any signs and symptoms of bleeding SKIN: Pressure ulcer prevention per facility protocol Rehab: PT/OT Prophylaxis: GI: Pepcid DVT: Lovenox Code Status: Full Resuscitation Disposition: ICU Other: Total patient critical care time exceeds 60 minutes excluding all procedures. Due to a high probability for clinically significant, life-threatening deterioration, the patient required my highest level of preparedness to interve ne emergently, and I personally spent over 60 minutes of critical care time directly and personally managing the patient. I devoted my full attention to the patient during this time, which is separate from time spent on any billable procedures. This includes time spent involved in work directly related to the care of the patient: such as review of prior records, development of treatment plan with patient and/or surrogate as well as nursing, discussions with consultants, evaluation of patient's response to treatment, examination of patient, obtaining history from patient or surrogate, ordering and performing treatments and interventions, ordering and review of laboratory studies, ordering and review of radiographic studies, pulse oximetry and re-evaluation of patient's condition, discussions with the family members and the patient, and any required documentation. This critical care time was performed to assess and manage the high probability of imminent life-threatening deterioration that could result in multi-organ failure. KIANA MAGUIRE [facility] Jun 11, 2024 03:36
[2024-06-11] MEDS: hydroCORTisone SOD SUCCINATE 100 MG/2 ML VIAL IV SCH (04:46)
--- NOTE | 2024-06-11 05:10 | NUR ---
CTA on hold,put unable to lay flat for exam//ordering physician advised
[2024-06-11 05:11] LABS: APPEARANCE,URINE CLEAR (CLEAR); BILIRUBIN,URINE NEGATIVE (NEGATIVE); COLOR,URINE YELLOW (YELLOW); GLUCOSE, URINE (UA) NEGATIVE (NEGATIVE); KETONES,URINE NEGATIVE (NEGATIVE); LEUKOCYTE ESTERASE ,URINE 75 Leu/uL (NEGATIVE); NITRATE,URINE NEGATIVE (NEGATIVE); OCCULT BLOOD,URINE NEGATIVE (NEGATIVE); PROTEIN,URINE 10 mg/dL (NEGATIVE)
[2024-06-11 05:12] LABS: ADD UA MICROSCOPIC YES
[2024-06-11 05:19] LABS: BACTERIA,URINE MOD /HPF (None Seen); MUCUS,URINE RARE LPF (None Seen); RBC,URINE 0-1 /HPF (0-1); SQUAMOUS EPITHELIAL CELL,UR RARE /HPF (0-2)
[2024-06-11] MEDS: MAGNESIUM 2GM PREMIX 50ML 50 ML IV PRN (05:26)
[2024-06-11] MEDS: ENOXAPARIN SODIUM 80 MG/0.8 ML SQ SCH (07:48)
--- NOTE | 2024-06-11 08:00 | NUR ---
PATIENT CURRENTLY ON PRECEDEX DRIP. RESPIRATIONS ARE EVEN, BUT LABORED. I SPOKE WITH MARGO DON WHO ADVISED ME THAT SHE WOULD BE IN [place] TO DISCUSS INTUBATION WITH THE PT AND HER SON. PATIENT CURRENTLY CALM, AND VOICES NO DISCOMFORT.
--- NOTE | 2024-06-11 08:30 | HMCIMG ---
CHEST 1VW REASON: RESP DISTRESS COMPARISON: 06/08/2024 FINDINGS: There is diffuse infiltrate in the left lung which appear stable to somewhat increased. There is been interval development of perihilar infiltrate on the right. Vascular congestion is favored over pneumonia. Heart size remains normal. Elevated right hemidiaphragm remains present. IMPRESSION: 1. Extensive infiltrate on the left which is stable to somewhat increased, there has been interval development of perihilar infiltrate on the right.
--- NOTE | 2024-06-11 09:14 | HMCIMG ---
US VENOUS DOPPLER BILATERAL REASON: Elevated DDIMER COMPARISON: None Technique: Bilateral venous doppler ultrasound was performed with spectral analysis and color flow imaging technique. FINDINGS: There is a normal appearance of the common femoral, deep femoral, the profunda femoris and popliteal veins. Proximal calf veins appear normal as well. There is normal response to compression and augmentation. There is no evidence of deep venous thrombosis. IMPRESSION: Normal bilateral lower extremity venous Doppler ultrasound.
--- NOTE | 2024-06-11 10:24 | PN ---
[facility] PROGRESS NOTE Date of Service: Jun 11, 2024 Time of Service: 10:19 SUBJECTIVE: [ ] Ms. Abdullahi is a 49-year-old female that was seen and examined today on 05/23/2024. Patient is a good historian and personal health. Patient's son Dagoberto Salcido is at bedside. Patient states that she came to the emergency department with a chief complaint of shortness of breath. Onset was two weeks ago. Location is to lungs. Duration is on and off. Character is described as "easily running out of air." Initially shortness and breath was only aggravated with climbing one or two flights of stairs but symptoms have progressively worsened and patient becomes short of breath even standing or walking short distances. There was no alleviating factors however previously symptoms were being controlled with daily morning albuterol nebulizer treatments. Patient denies any associated chest pain or dizziness. Patient reports an episode of COVID in December 2023. emergency department CBC unremarkable, chemistry unremarkable, urinalysis unremarkable, influenza screen negative, COVID negative, blood gas shows PO2 less than 45. Chest x-ray shows left lower lung pneumonia and minimal right lung base atelectasis. Upon arrival to the emergency department patient was placed on a BiPAP due to respiratory distress. 05/24/2024-patient was seen and examined at the bedside, still on BiPAP. Patient is able to speak, and says she feels much better than before. Patient says after COVID in December she developed severe bronchitis and she was on Solu-Medrol and albuterol, which did not help her much and later she had high fevers and shortness of breath which is when she came to the ED.Vitals afebrile pulse 76, RR 38 tachypneic , blood pressure 115/68, pulse oxygen 99 on BiPAP flow of 60. On ABG pH 7.47, pCO2 29, PO2 109.4, oxygen saturation 98.3. [id number] potassium 4.1 BUN15 creatinine 0.5 GFR 114. We will closely monitor the patient. [employer] consult noted waiting on the recommendation 05/25/24 patient was seen and examined and case discussed with RN and family by the bedside. She was breathing better today. She has been on BiPAP all night but now he was on 100% non-rebreather with further efforts to continue to wean the oxygen requirements down. 05/27/24 patient is seen and examined at bedside, acute events overnight, case discussed with the RN, BP 131/64, afebrile, saturating 96-97% via Ventimask, FiO2 40%. The patient admits cough productive of clear phlegm. Serology tests reviewed, HIV preliminary positive, discussed with the patient. 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 We will continue the patient on IV antibiotics, continue fluconazole, continue to follow Pulmonary and ID input and recommendations. After provided in the preliminary results of HIV test, she denies any suicidal or homicidal ideations. 05/28 patient has been seen and examined, no acute events overnight, case discussed with the RN, during my visit patient is sitting comfortably in the chair, hemodynamically stable, off Ventimask, currently on 10 L via nasal cannula, saturating 98%, tolerated BiPAP overnight. she feels better, less shortness a breath, still admits cough productive of yellow phlegm. No chest pain. Getting IV antibiotics during my visit. HIV P24 antigen, nonreactive. We will continue to follow Pulmonary and Infectious Disease input and recommendations. 05/29 patient has been seen and examined, no acute events overnight, case discussed with the RN, during my visit patient is sitting comfortably in the chair, hemodynamically stable, remains on 10 L via nasal cannula, saturating 98% , still admits cough productive of yellow phlegm. No chest pain. Getting IV antibiotics during my visit. HIV P24 antigen, nonreactive. Pending CD4 cell count. We will continue to follow Pulmonary and Infectious Disease input and recommendations. 05/30 the patient has been seen and examined, no acute events overnight, BP 114/66, during my visit she is on Ventimask, saturating 95%, FiO2 60%. Without the Ventimask the patient desaturates to the low 70s. Patient tolerating BiPAP during the night. Still admits cough productive of thick yellow phlegm, no chest pain. Results of CD4 cell count reviewed, discussed with the patient. We will continue broad-spectrum IV antibiotics. Continue to follow Pulmonary and Infectious Disease input and recommendations. 05/31 the patient has been seen and examined, upgraded to the ICU, during my visit she is sitting in the chair, BP 113/72, heart rate of 109, she is on Oxymizer, 30 L, FiO2 100%. She is alert oriented x3, still admits cough productive of thick yellow phlegm, no chest pain. Hemoglobin 12.9, hematocrit 36.6, WBC 14.6. ABG with pH 7.4, pCO2 40, PO2. Chest x-ray shows left lower l obe infiltrate consistent with pneumonia. She is getting IV antibiotics during my visit. Patient will remain in the ICU, continue to follow critical Care as well as infectious disease input and recommendations. 06/01 patient is seen and examined, sitting comfortable in chair, awake, following commands, remains on high-flow oxygen, FiO2 70%, 30 L, BP 117/67, heart rate of 78, respiratory rate of 30-36, saturating 100%, CBC with a hemoglobin 13.6, hematocrit 38.9, WBC 12.4. Platelet count of 341. Chest x-ray showing persistent left lung infiltrate, cardiac size and mediastinum unremarkable. The bony structures are within the normal limits. Patient getting IV antibiotics during my visit. Patient to continue with the high-dose steroids. Serology test positive for Pneumocystis sandra. Patient on Bactrim two tablets p.o. t.i.d.. Continue also doxycycline and cefepime IV. Continue to follow infectious disease input and recommendation. Continue to follow Pulmonary input and recommendations. 06/02 patient is seen and examined at bedside, currently in prone position, alert oriented x3. CPT started last night, she has started having more loose phlegm expectorated. BP 114/74, tachycardic 114, saturating 95%, high-flow nasal cannula, 30 L, FiO2 80%. CBC with a hemoglobin 16.9, hemoglobin 14 0, hematocrit 39.8, platelet count 347. Chest x-ray shows persistent left lung infiltrate. 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 HIV preliminary positive, HIV P 24 nonreactive, HIV-one RNA by PCR [id number]. Serology test for toxoplasma currently pending. Patient on IV antibiotics as well as high-dose steroids. Continue to follow infectious Disease and Pulmonary input and recommendations. 06/03 patient seen at bedside, no acute events overnight. She continues with respiratory distress, with increasing oxygen requirements. Critical Care has discussed a possible need for intubation if she does not improve. She has been started on steroids due to underlying PCP pneumonia. WBC improved from 16.9 down to 13.5, sodium stable at 132, same as yesterday, lactic acid downtrending from 4.1 down to 3.2, remainder of her labs are relatively unremarkable. 06/04 patient seen at bedside, no acute events overnight. She remains on high- flow nasal cannula, mildly tachycardic. WBC elevated at 13.3, sodium decreased from 132 down to 129, remainder of her labs are relatively unremarkable. Continue to wean supplemental oxygen. Further care per critical Care 06/05 patient seen at bedside, no acute events overnight. She remains on high- flow nasal cannula with BiPAP overnight and is still tachycardic. Heart rate ranging from 104 up to 113, WBC improved from 13.3 down to 11.1, sodium decreased from 120 down to 126, remainder of her labs are relatively unremarkable. We will continue to wean oxygen as able. 06/06 Patient seen at bedside, no acute events overnight. She remains on high- flow nasal cannula with BiPAP overnight and is still tachycardic. Heart rate ranging from 104 up to 122, WBC improved from 11.1 down to 10.6, sodium improved from 126 up to 129, remainder of her labs are relatively unremarkable. We will continue to wean oxygen as able. 06/07 patient seen at bedside, no acute events overnight. She is still on high- flow nasal cannula, RT advised to wean oxygen, currently saturating 100% on 30L. She is tachycardic, sodium decreased from 129 down to 123, likely secondary to Bactrim. Patient is asymptomatic, will continue with bactrim, if sodium continues to decrease consider a holiday from bactrim. 06/08 patient seen at bedside, no acute events overnight. She is still on high- flow nasal cannula, RT advised to wean oxygen, currently saturating 100% on 30L. She is tachycardic, sodium stable at 123, same as yesterday. Pending improvement in respiratory status 06/09 patient seen at bedside, he remains on high-flow nasal cannula, we will continue to wean as able, appreciate pulmonology assistance, tachycardic with heart rate ranging from 123 up to 130. She is still having low-grade fevers at 100.8. Sodium increased from 123 up to 130, remainder of her labs are relatively unremarkable. 06/10 patient is seen and examined at bedside, remains on high-flow oxygen, she feels mildly anxious, no chest pain. Still with a cough productive of white phlegm. Still tachycardic, heart rate 117-122. Patient is still spiking low- grade fever. Hemoglobin 10.9, hematocrit 30.5. Sodium remained low at 128, BUN and creatinine of 16 and 0.4. 06/11 patient is seen and examined at bedside, patient now on AVAPS, FiO2 100%, patient became restless last night, she had to be started on Precedex. During my visit she remains alert oriented x3, no chest pain. BP 120/48, she is saturating 100%. Hemoglobin 10 point, hematocrit 31.3. ABG shows persistent hypoxemia, with a PO2 of 69.4. Chest x-ray shows extensive infiltrates on the left which is stable to somewhat increased, there has been interval development of perihilar infiltrate on the right. Normal bilateral lower extremity venous Doppler ultrasound. Continue the patient on prednisone 20 mg p.o. daily, continue Bactrim two tablets p.o. t.i.d. as well as fluconazole 100 mg p.o. daily. REVIEW OF SYSTEMS 12 point review of systems negative unless noted in HPI PHYSICAL EXAM GENERAL APPEARANCE: The patient is awake, following commands, on AVAPS, on Precedex. NEUROLOGICAL: Cranial nerves II-XII grossly intact. Motor is 5/5 in bilateral upper and lower extremities proximal to distal. No sensory deficits. HEENT: Face is symmetric. Pupils are equal and reactive. Extraocular movements are intact. NECK: Supple. No JVD. No thyromegaly. No submental, submandibular, pre-/posta uricular, occipital or supraclavicular lymphadenopathy. CHEST: Normal chest expansion. No Telemetry. LUNGS: Bilateral rhonchi, no expiratory wheezing CARDIOVASCULAR: Regular. S1 and S2 normal. No appreciable rubs, murmurs or gallops. ABDOMEN: Soft, nontender, and nondistended. There is no rebound, voluntary guarding, or rigidity. : Deferred. No Souza. EXTREMITIES: Non-edematous and not cyanotic. No clubbing. Good capillary refill. SKIN: No skin breakdown. Vital Signs (last 8hr) Date Time Temp Pulse Resp B/P (MAP) Pulse Ox O2 Delivery O2 Flow Rate FiO2 06/11/24 09:45 77 34 89 AVAPS 100 06/11/24 09:30 77 56 89 AVAPS 100 06/11/24 09:16 78 61 128/48 100 AVAPS 100 06/11/24 09:15 78 59 100 AVAPS 100 06/11/24 09:00 82 27 100 AVAPS 100 06/11/24 08:46 78 33 140/63 91 AVAPS 100 06/11/24 08:45 78 31 91 AVAPS 100 06/11/24 08:30 79 33 91 AVAPS 100 06/11/24 08:16 79 32 136/93 91 AVAPS 100 06/11/24 08:15 79 30 89 AVAPS 100 06/11/24 08:00 99.0 81 61 88 AVAPS 06/11/24 08:00 79 61 88 AVAPS 100 06/11/24 08:00 92 Bi-PAP+ 100 06/11/24 07:46 83 47 146/62 91 AVAPS 100 06/11/24 07:45 83 48 91 AVAPS 100 06/11/24 07:30 85 30 89 AVAPS 100 06/11/24 07:16 85 29 135/56 91 AVAPS 100 06/11/24 07:15 85 32 91 AVAPS 100 06/11/24 07:00 87 32 91 AVAPS 100 06/11/24 06:49 93 34 100 06/11/24 06:46 92 34 148/98 89 AVAPS 100 06/11/24 06:45 94 37 89 AVAPS 100 06/11/24 06:00 98 35 97/43 90 AVAPS 100 06/11/24 05:00 112 50 111/62 88 AVAPS 100 06/11/24 04:00 92 Bi-PAP+ 100 06/11/24 04:00 98.2 108 38 98/64 89 AVAPS 100 06/11/24 03:08 123 41 06/11/24 03:00 117 44 149/67 92 AVAPS 100 06/11/24 02:36 125 40 100 LABS: Laboratory: Test 06/11/24 04:00 06/11/24 03:01 06/11/24 02:42 06/11/24 01:09 Range/Units Urine Color YELLOW YELLOW Urine Appearance CLEAR CLEAR Urine pH 6.0 5.0-8.0 Urine Specific [place] 1.010 1.001-1.031 Urine Protein 10 H NEGATIVE mg/dL Urine Glucose (UA) NEGATIVE NEGATIVE mg/dL Urine Ketones NEGATIVE NEGATIVE mg/dL Urine Occult Blood NEGATIVE NEGATIVE Urine Nitrate NEGATIVE NEGATIVE Urine Bilirubin NEGATIVE NEGATIVE mg/dL Urine Urobilinogen 2.0 H 0.2-1.0 mg/dL Urine Leukocyte Esterase 75 H NEGATIVE Carlo/uL Urine RBC 0-1 0-1 /HPF Urine WBC 2-5 H 0-1 /HPF Urine Squamous Epithelial Cells RARE 0-2 /HPF Urine Bacteria MOD None Seen /HPF Urine Hyaline Casts 2-5 H 0-1 /LPF /LPF Urine Random Sodium 111 40-220 mmol/l Blood Gas Specimen Type Arterial Arterial Blood pH 7.413 7.350-7.450 Arterial Blood Partial Pressure CO2 42 32-45 mmHg Arterial Blood Partial Pressure O2 69.4 L 83.0-108.0 mmHg Arterial Blood HCO3 26.5 21.0-28.0 mmol/L Arterial Blood Oxygen Saturation 93.2 L 94.0-98.0 % Arterial Blood Base Excess 1.6 -2.0-3.0 mmol/L Hemoglobin (Blood Gas) 11.8 L 12.0-16.0 g/dL Sodium (Blood Gas) 127 L 136-145 MMOL/L Bedside Potassium (Blood Gas) 4.1 3.4-4.5 MMOL/L Bedside Chloride (Blood Gas) 95 L 98-107 MMOL/L Bedside Glucose (Blood Gas) 105 H 65-95 MG/DL Bedside Ionized Calcium (Blood Gas) 1.10 L 1.15-1.33 MMOL/L Bedside Lactic Acid (Blood Gas) 1.09 H 0.36-0.75 MMOL/L Blood Gas Temperature 37.0 35.5-37.0 CELSIUS Blood Gas Respiration Rate 16.0 min. Blood Gas Vent Mode AVAPS ROOM AIR FiO2 100.0 % Blood Gas Tidal Volume 450 ml Blood Gas PEEP 5 cm H2O Blood Gas Specimen Comment LR RN VANDANA White Blood Count 7.2 4.8-10.8 K/uL Red Blood Count 3.34 L 4.00-5.50 MIL/uL Hemoglobin 10.9 L 12.0-16.0 g/dL Hematocrit 31.3 L 36-48 % Mean Corpuscular Volume 93.7 79-99 fL Mean Corpuscular Hemoglobin 32.6 27.0-33.0 pg Mean Corpuscular Hemoglobin Concent 34.8 32.0-36.0 g/dL Red Cell Distribution Width 11.6 11.0-15.5 % Platelet Count 142 130-400 K/uL Mean Platelet Volume 9.4 7.5-10.5 fL Immature Granulocyte % (Auto) 0.6 0-1 % Neutrophils (%) (Auto) 92.3 H 40.0-77.0 % Lymphocytes (%) (Auto) 3.6 L 21.0-51.0 % Monocytes (%) (Auto) 2.1 L 3.0-13.0 % Eosinophils (%) (Auto) 1.3 0.0-8.0 % Basophils (%) (Auto) 0.1 0.0-5.0 % Neutrophils # (Auto) 6.6 1.8-7.7 K/uL Lymphocytes # (Auto) 0.3 L 1.0-4.8 K/uL Monocytes # (Auto) 0.2 0.1-1.0 K/uL Eosinophils # (Auto) 0.09 0.00-0.70 K/uL Basophils # (Auto) 0.01 0.00-0.20 K/uL Absolute Immature Granulocyte (auto 0.04 0-1 K/uL Nucleated Red Blood Cells 0.0 0.0-0.19 % D-Dimer Quantitative (PE/DVT) 4641 *H 0-500 ng/mL Sodium Level 128 L 136-145 mmol/L Potassium Level 4.2 3.5-5.1 mmol/L Chloride Level 94 L 101-111 mmol/L Carbon Dioxide Level 33 H 21-32 mmol/L Blood Urea Nitrogen 15 7-18 mg/dL Creatinine 0.6 0.5-1.0 mg/dL Glomerular Filtration Rate Calc 109 >90 mL/min Random Glucose 103 70-105 mg/dL Total Calcium 7.9 L 8.5-10.1 mg/dL Magnesium Level 1.90 1.80-2.40 mg/dL Total Bilirubin 0.3 0.2-1.0 mg/dL Aspartate Amino Transf (AST/SGOT) 69 H 10-37 U/L Alanine Aminotransferase (ALT/SGPT) 76 12-78 U/L Alkaline Phosphatase 131 50-136 U/L B-Type Natriuretic Peptide 11 0-100 pg/mL Total Protein 5.5 L 6.0-8.3 g/dL Albumin 1.7 L 3.5-5.0 g/dL Blood Gas CPAP 12 cm H2O Current Medications Medications (Trade) Dose Ordered Sig/Julita Route PRN Reason Start Time Stop Time Status Last Admin Dose Admin Acetaminophen (TYLenol 650MG ELIXIR) 650 mg Q6H PRN PO MILD PAIN (1-3) 06/04/24 08:30 07/04/24 08:29 06/10/24 20:07 650 MG Acetaminophen (TYLenol 650MG SUPPOSITORY) 650 mg Q6H PRN RC MILD PAIN (1-3) 05/23/24 20:30 06/22/24 20:29 Acetylcysteine (MUComyst 20% 4ML) 400mg = 2ml [id number] IH 06/02/24 00:00 06/05/24 15:52 DC 06/05/24 11:35 200 MG Albuterol (DUOneb) 1 udvial [id number] IH 05/24/24 00:00 06/10/24 10:28 DC 06/10/24 06:45 1 UDVIAL Alprazolam (XANax 0.5MG) 0.5 mg Q8H PRN PO ANXIETY 06/10/24 13:30 07/10/24 13:29 06/11/24 05:22 0.5 MG Azithromycin 250 ml @ 250 mls/hr Q24H IVPB 05/24/24 17:00 05/24/24 14:41 DC Azithromycin 250 ml @ 250 mls/hr Q24H STAT IVPB 05/23/24 17:17 05/24/24 14:41 DC 05/23/24 17:45 250 MLS/HR Benzocaine (Cepacol Sore Throat Lozenge) 1 each Q4H PRN MM SORE THROAT 06/08/24 10:00 07/08/24 09:59 06/09/24 07:44 1 EACH Bisacodyl (DulcoLAX) 10 mg DAILY PRN RC CONSTIPATION 06/08/24 14:00 07/08/24 13:59 06/09/24 17:22 10 MG Cefepime HCl (MAXipime 2 gm vial) 2 gm Q12H IVPB 05/24/24 15:00 06/03/24 14:59 DC 06/03/24 03:18 2 GM Ceftriaxone Sodium (ROCEphine 1G INJ) 1 gm Q24H IVPB 05/24/24 17:30 05/24/24 14:41 DC Chlorhexidine Gluconate (Peridex) 15 ml Q6H MM 06/07/24 17:00 06/21/24 16:59 06/10/24 12:22 15 ML Clotrimazole (Mycelex) 10 mg TID MM 06/04/24 21:00 07/04/24 20:59 06/10/24 13:58 10 MG Dexmedetomidine/ Sodium Chloride (PRECEdex 400MCG/ 100ML-NS) 400 mcg PROTOCOL IV 06/10/24 19:30 07/10/24 19:29 06/11/24 04:46 400 MCG Doxycycline Hyclate 250 ml @ 125 mls/hr Q12H IV 05/24/24 16:30 06/03/24 16:29 DC 06/03/24 04:23 125 MLS/HR Enoxaparin Sodium (Lovenox 80mg) 80 mg BID SQ 06/11/24 09:00 07/11/24 08:59 06/11/24 07:48 80 MG Enoxaparin Sodium (Lovenox) 40 mg Q24H SQ 05/23/24 21:00 06/11/24 04:36 DC 06/10/24 20:07 40 MG Famotidine (Pepcid 20mg Vial) 20 mg DAILY IV 05/24/24 09:00 06/23/24 08:59 06/11/24 07:48 20 MG Fluconazole (DiFLUCan 100 mg TAB) 200 mg DAILY PO 06/05/24 09:00 07/05/24 08:59 06/10/24 08:47 200 MG Fluconazole/ Sodium Chloride 100 ml @ 100 mls/hr DAILY IV 05/26/24 09:00 05/27/24 15:57 DC 05/27/24 09:07 100 MLS/HR Furosemide (LASix 20MG VIAL) 20 mg DAILY IV 05/31/24 09:00 06/07/24 13:18 DC 06/03/24 08:38 20 MG Guaifenesin/ Dextromethorphan (RobiTUSSin DM 200/20MG 10ML) 10 ml Q4H PRN PO COUGH 05/23/24 20:30 06/22/24 20:29 06/10/24 20:07 10 ML Hydrocortisone Sodium Succinate (Solu-corTEF 100MG) 100 mg Q8H IV 06/11/24 05:00 07/11/24 04:59 06/11/24 04:46 100 MG Hydroxyzine HCl (ATArax 25MG TAB) 25 mg TID PRN PO ITCHING 06/10/24 14:00 07/10/24 13:59 06/11/24 05:22 25 MG Ipratropium Willard (AtrovENT UD) 0.5 MG [id number] IH 06/10/24 14:00 07/10/24 13:59 06/11/24 06:44 0.5 MG Lactated Ringer's (Lactated Ringers 1000ml) 500 ml ONCE IV 06/02/24 20:00 06/02/24 19:54 DC Levofloxacin/ Dextrose 100 ml @ 100 mls/hr Q24H IV 05/24/24 15:00 05/24/24 16:16 DC Magnesium Sulfate 50 ml @ 0 mls/hr PROTOCOL PRN IV hypomagnesemia 05/28/24 08:00 06/27/24 07:59 06/11/24 05:26 50 MLS/HR Methylprednisolone Sodium Succinate (Solu-medROL 40MG) 20 mg Q12H IVP 06/05/24 07:00 06/09/24 09:13 DC 06/09/24 07:25 20 MG Methylprednisolone Sodium Succinate (Solu-medROL 40MG) 40 mg Q12H IVP 05/28/24 18:00 05/29/24 16:45 DC 05/29/24 05:32 40 MG Methylprednisolone Sodium Succinate (Solu-medROL 40MG) 40 mg Q6H IVP 05/29/24 16:30 06/04/24 16:44 DC 06/04/24 11:13 40 MG Methylprednisolone Sodium Succinate (Solu-medROL 40MG) 40 mg Q6H IVP 06/04/24 18:00 06/05/24 00:24 DC 06/04/24 23:48 40 MG Methylprednisolone Sodium Succinate (Solu-medROL 40MG) 40 mg Q8H IVP 05/24/24 01:00 05/25/24 21:51 DC 05/25/24 17:28 40 MG Methylprednisolone Sodium Succinate (Solu-medROL 40MG) 60 mg Q6H IVP 05/25/24 22:00 05/28/24 02:25 DC 05/27/24 23:55 60 MG Methylprednisolone Sodium Succinate (Solu-medROL 40MG) 60 mg Q6H IVP 05/28/24 06:00 05/28/24 08:27 DC 05/28/24 06:47 60 MG Methylprednisolone Sodium Succinate (Solu-medROL 40MG) 60 mg Q6H IVP 06/11/24 02:30 06/11/24 04:23 DC 06/11/24 02:46 60 MG Metronidazole/ Sodium Chloride (flaGYL) 500 mg Q8H IV 05/25/24 22:00 05/25/24 21:56 DC Morphine Sulfate (morPHINE 4MG SYG) 4 mg Q4H PRN IM RESPIRATORY SYMPTOMS 06/11/24 03:30 06/18/24 03:29 06/11/24 03:27 4 MG Ondansetron HCl (zoFRAN 4MG INJ) 4 mg Q6H PRN IV NAUSEA/VOMITING 05/23/24 20:30 06/22/24 20:29 Phenylephrine HCl 10 mg/Sodium Chloride 251 ml @ 0 mls/hr AD PRN IV DIRECTED 06/11/24 03:00 07/11/24 02:59 Potassium Chloride 100 ml @ 100 mls/hr AD PRN IV POTASSIUM PROTOCOL 05/28/24 08:00 06/27/24 07:59 Potassium Chloride (K-Dur/Klor-Con 20meq) 20 meq AD PRN PO POTASSIUM PROTOCOL 05/28/24 08:00 06/27/24 07:59 Potassium Chloride (KCl 10% Elixir 20meq/15ml) 20 meq AD PRN PO POTASSIUM PROTOCOL 05/28/24 08:00 06/27/24 07:59 Prednisone (deltaSONE/ oraSONE 20MG TAB) 20 mg DAILY PO 06/10/24 09:00 07/10/24 08:59 06/10/24 08:47 20 MG Sodium Chloride 500 ml @ 500 mls/hr Q1H IV 06/02/24 20:00 06/02/24 20:59 DC 06/02/24 21:34 500 MLS/HR Sodium Chloride 1,000 ml @ 75 mls/hr [id number] IV 06/07/24 13:30 06/10/24 17:02 DC 06/10/24 09:05 75 MLS/HR Sodium Chloride (Sodium Chloride) 1,000 mg BIDAC PO 06/07/24 16:30 06/09/24 07:28 DC 06/08/24 16:58 1,000 MG Sodium Chloride (Sodium Chloride) 1,000 mg BIDAC PO 06/09/24 07:30 07/09/24 07:29 06/10/24 15:35 1,000 MG Sodium Zirconium Cyclosilicate (Lokelma) 5 gm DAILY10 PO 06/08/24 10:30 06/10/24 10:29 DC 06/08/24 10:50 5 GM Trimethoprim/ Sulfamethoxazole (BactRIM DS) 1 tab BID PO 05/26/24 21:00 05/29/24 16:18 DC 05/29/24 08:07 1 TAB Trimethoprim/ Sulfamethoxazole (BactRIM DS) 2 tab TID PO 05/29/24 16:30 06/05/24 20:59 DC 06/05/24 14:55 2 TAB Trimethoprim/ Sulfamethoxazole (BactRIM DS) 2 tab TID PO 06/06/24 09:30 09/11/24 09:29 06/10/24 13:58 2 TAB DIAGNOSTICS / RADIOLOGY: [ ] CHEST 1VW REASON: RESP DISTRESS COMPARISON: 06/08/2024 FINDINGS: There is diffuse infiltrate in the left lung which appear stable to somewhat increased. There is been interval development of perihilar infiltrate on the right. Vascular congestion is favored over pneumonia. Heart size remains normal. Elevated right hemidiaphragm remains present. IMPRESSION: 1. Extensive infiltrate on the left which is stable to somewhat increased, there has been interval development of perihilar infiltrate on the right. ASSESSMENT: Acute hypoxemic respiratory failure, POA Bilateral lower lobe bacterial pneumonia + MRSA POA, +Azra Suspected PCP PNA based on CT findings vs viral/Atypical PNA . POA HIV positive (preliminary report, confirmatory test nonreactive) POA Normocytic anemia, not POA Neutrophilia, POA Hyperglycemia, POA Obesity BMI of 32.3 Former smoker Acute cystitis, POA Fatty liver, POA Moderate hypoalbuminemia POA Previous COVID-19 infection PLAN: Continue ICU Continue the patient on AVAPS. Continue the patient on Bactrim fluconazole. Continue the patient on prednisone p.o. Discussed with pulmonary physician, high chances of intubation. Continue to follow infectious disease input and recommendation Continue to follow chest x-ray Continue to follow ABG Continue bronchodilators per respiratory therapist Replace electrolytes IV per protocol A.m. labs GI and DVT prophylaxis. Further orders to follow based on the above results Disposition: Remains admitted to the ICU, pending improvement in clinical condition. Overall prognosis is guarded, high chances of requiring intubation and mechanical ventilation Total ICU time spent greater than 30 minutes. GAIL WALDRON MD Jun 11, 2024 10:24
--- NOTE | 2024-06-11 10:36 | PN ---
[facility] PROGRESS NOTE Date Patient Seen: Jun 11, 2024 Time of Visit: 10:36 Supervising Physician: Satya Lundberg MD Primary Care Physician: Stu Foss MD Outpatient Specialists: Inpatient Consults: Pulmonology PROBLEM LIST: Severe ARDS Acute hypoxemic respiratory failure s/p intubation 06/11/24 requiring proning Bilateral lower lobe bacterial pneumonia + MRSA POA, +Azra Confirmed PCP PNA per Ag (serology), POA Elevated DDIMER r/o PE & DVT New HIV/AIDS positive POA Hyponatremia and hyperkalemia, suspected Bactrim induced Normocytic anemia, not POA Neutrophilia, POA Hyperglycemia, POA Obesity BMI of 32.3 Former smoker Fatty liver, POA Moderate hypoalbuminemia POA Previous COVID-19 infection INTERVAL HISTORY: 06/10/2024: At the time of my evaluation, the patient was lying in bed. Per the patient report, she had a anxiety episode overnight. He is awake alert and oriented x4. She remains intermittently febrile most recent 100.8. On a monitor, the patient is normotensive without any pressor support. She remains tachycardic up in the 120s. The patient remains on oxygenation with high-flow nasal cannula 30 L/70% FiO2 and denies any hypoxemic event. She continues to f eed orally, no complaint of nausea vomiting or diarrhea. The patient reports voiding without difficulty. Intake and output shows a intake of 2006 units 60.0, output of 2500 and a positive balance of 160.0. Laboratory data review of significance showed no changes of concern on CBC, chemistry panel of significance showed a sodium count of 128, potassium of 3.8, chloride of 93 and the remaining parameters were unremarkable. Blood cultures showing no growth. A chest CT was ordered and is pending. No other complaint. 06/11/24: 02:07 RN called. Reports patient is tachypneic, RR 30s-40s bpm. On BiPAP at 100% FiO2,12/6, rate 16 bpm. Patient was changed to AVAPS and ABGs were redrawn, pH 7.413, PO2 69.4, pCO2 42.4. The patient is on Precedex but she had to go down on Precedex due to hypotension. RN reports that patient is not sedated with Precedex due to having to slow down hypotension. Added Mario- Synephrine IV drip. 03:38 RN called that patient remains tachypneic. Lasix 40 mg IV x1 dose o rdered, Solu-Medrol IV 60 IV q.6, BNP, and D-dimer were ordered. I went to assess the patient at bedside. I explained to the patient and significant other at bedside the ABGs results. I informed that the patient is tachypneic, RR 44 bpm, tachycardic 123, and ABGs showed hypoxia at 69.4. I spent a lengthy amount of time educating the patient on her guarded/critical condition. They verbalized understanding. Both of them report that they are not ready for intubation, but we will allow intubation if does not improve. I showed them of the retractions that the patient has and the abdominal breathing. They verbalized understanding and continued to request to hold on intubation for now. Per chart review CTA on 05/24/2024 was negative for a PE. Bilateral pulmonary infiltrates with segmental atelectasis. Two days BNP was WNL. D-dimer was 4641. 06/11/24 AM rounds: Patient's oxygenation status not improving on BiPAP with the FiO2 100%. Saturating 88-89% patient appears tachypneic pale and tachycardic. Spoke to patient and informed of need for intubation. Patient requested to wait for her son to be at bedside. once son was at bedside informed them of the need for intubation and risks and benefits. In order to alleviate some of the pt's anxiety and fear of intubation we has son at her side until sedated prior to intubation in which then son stepped out and patient was intubated per Dr. Lundberg. Still on the ventilator patient is saturating 89%, ventilator settings adjusted to assist control volume control tidal volume 500 respiratory rate of 18 FiO2 of 100% and PEEP of 10, plateau pressure 23. Decision was made for proning. Added Nimbex as a paralyzing agent per protocol drip. Informed pt's son on need for a central line due to patient requiring multiple drips. Sodium in agreement. Otherwise on CBC similar to yesterday, chemistry kidneys are doing well with a creatinine of 0.6 with a GFR of 109 sodium has improved to 130 potassium 3.8 chloride of 94 BUN of 30. OG tube to be placed and start tube feedings. Pt with multiple mouth sores concern for herpes simplex. Valganciclovir 900 mg p.o. b.i.d. started per pharmacy to dose. REVIEW OF SYSTEMS: Unable to obtain ROS from patient due to patient's medical condition. PHYSICAL EXAM: GENERAL: alert, weak, awake oriented x 3 HEENT: EOMI, Sclera non icteric, moist mucosa NECK: Supple, no JVD, trachea midline LUNGS: Tachypneic, RR 44 beats per minute, coarse ronchi HEART: Regular rate and rhythm. Normal S1 and S2, without murmurs ABD: Abdomen soft, nontender. Bowel sounds present EXT: No clubbing cyanosis or edema NEURO: Alert and oriented to person, follows commands Vital Signs (last 8hr) Date Time Temp Pulse Resp B/P (MAP) Pulse Ox O2 Delivery O2 Flow Rate FiO2 06/11/24 09:45 77 34 89 AVAPS 100 06/11/24 09:30 77 56 89 AVAPS 100 06/11/24 09:16 78 61 128/48 100 AVAPS 100 06/11/24 09:15 78 59 100 AVAPS 100 06/11/24 09:00 82 27 100 AVAPS 100 06/11/24 08:46 78 33 140/63 91 AVAPS 100 06/11/24 08:45 78 31 91 AVAPS 100 06/11/24 08:30 79 33 91 AVAPS 100 06/11/24 08:16 79 32 136/93 91 AVAPS 100 06/11/24 08:15 79 30 89 AVAPS 100 06/11/24 08:00 99.0 81 61 88 AVAPS 06/11/24 08:00 79 61 88 AVAPS 100 06/11/24 08:00 92 Bi-PAP+ 100 06/11/24 07:46 83 47 146/62 91 AVAPS 100 06/11/24 07:45 83 48 91 AVAPS 100 06/11/24 07:30 85 30 89 AVAPS 100 06/11/24 07:16 85 29 135/56 91 AVAPS 100 06/11/24 07:15 85 32 91 AVAPS 100 06/11/24 07:00 87 32 91 AVAPS 100 06/11/24 06:49 93 34 100 06/11/24 06:46 92 34 148/98 89 AVAPS 100 06/11/24 06:45 94 37 89 AVAPS 100 06/11/24 06:00 98 35 97/43 90 AVAPS 100 06/11/24 05:00 112 50 111/62 88 AVAPS 100 06/11/24 04:00 92 Bi-PAP+ 100 06/11/24 04:00 98.2 108 38 98/64 89 AVAPS 100 06/11/24 03:08 123 41 06/11/24 03:00 117 44 149/67 92 AVAPS 100 LABS: Hematology Labs: Test 06/11/24 02:42 Range/Units White Blood Count 7.2 4.8-10.8 K/uL Red Blood Count 3.34 L 4.00-5.50 MIL/uL Hemoglobin 10.9 L 12.0-16.0 g/dL Hematocrit 31.3 L 36-48 % Mean Corpuscular Volume 93.7 79-99 fL Mean Corpuscular Hemoglobin 32.6 27.0-33.0 pg Mean Corpuscular Hemoglobin Concent 34.8 32.0-36.0 g/dL Red Cell Distribution Width 11.6 11.0-15.5 % Platelet Count 142 130-400 K/uL Mean Platelet Volume 9.4 7.5-10.5 fL Immature Granulocyte % (Auto) 0.6 0-1 % Neutrophils (%) (Auto) 92.3 H 40.0-77.0 % Lymphocytes (%) (Auto) 3.6 L 21.0-51.0 % Monocytes (%) (Auto) 2.1 L 3.0-13.0 % Eosinophils (%) (Auto) 1.3 0.0-8.0 % Basophils (%) (Auto) 0.1 0.0-5.0 % Neutrophils # (Auto) 6.6 1.8-7.7 K/uL Lymphocytes # (Auto) 0.3 L 1.0-4.8 K/uL Monocytes # (Auto) 0.2 0.1-1.0 K/uL Eosinophils # (Auto) 0.09 0.00-0.70 K/uL Basophils # (Auto) 0.01 0.00-0.20 K/uL Absolute Immature Granulocyte (auto 0.04 0-1 K/uL Nucleated Red Blood Cells 0.0 0.0-0.19 % Chemistry Labs: Test 06/11/24 02:42 Range/Units Sodium Level 128 L 136-145 mmol/L Potassium Level 4.2 3.5-5.1 mmol/L Chloride Level 94 L 101-111 mmol/L Carbon Dioxide Level 33 H 21-32 mmol/L Blood Urea Nitrogen 15 7-18 mg/dL Creatinine 0.6 0.5-1.0 mg/dL Glomerular Filtration Rate Calc 109 >90 mL/min Random Glucose 103 70-105 mg/dL Total Calcium 7.9 L 8.5-10.1 mg/dL Magnesium Level 1.90 1.80-2.40 mg/dL Total Bilirubin 0.3 0.2-1.0 mg/dL Aspartate Amino Transf (AST/SGOT) 69 H 10-37 U/L Alanine Aminotransferase (ALT/SGPT) 76 12-78 U/L Alkaline Phosphatase 131 50-136 U/L B-Type Natriuretic Peptide 11 0-100 pg/mL Total Protein 5.5 L 6.0-8.3 g/dL Albumin 1.7 L 3.5-5.0 g/dL Coagulation Labs: Test 06/11/24 02:42 Range/Units D-Dimer Quantitative (PE/DVT) 4641 *H 0-500 ng/mL DIAGNOSTICS / RADIOLOGY RESULTS: IMAGING REPORT Signed PATIENT: RIO OSORIO MR#: [id number] : 1975 SEX: F AGE: 49 LOCATION: 2B ORDER 53 STATUS: ADM IN REPORT#: [id number] SERVICE [id number] REASON: verify placement of ET tube and verify placement of right central line ORDERING PHYSICIAN: MARGO LOGAN PROCEDURE: CXR1VW - CHEST 1VW CHEST 1VW REASON: verify placement of ET tube and verify placement of right central line COMPARISON: 06/11/2024 FINDINGS: There are diffuse bilateral infiltrates unchanged. ET tube is in good position just below midclavicular point, 2.8 cm above the sandra. The right IJ central line tip is in the superior vena cava, no evidence of pneumothorax. IMPRESSION: 1. ET tube and right IJ central line in good position, no pneumothorax. DICTATED BY: LALO IBANEZ MD DATE: 06/11/24 160 ELECTRONICALLY SIGNED BY: LALO IBANEZ MD DATE: 06/11/24 160 PLAN Intubate start nimbex and prone for 16hrs a day manage vent per abg maintain plateu pressure of < 30 Hydrocortisone Continue Atrovent q.4 hours. Start Mario-Synephrine IV drip. Start Lovenox1 milligram/kilogram b.i.d.. Added venous Doppler and chest x-ray PE protocol. Abx Per ID recommends Valgancilcovir add meropenem Trend Lactic acid. POA is son NEURO: Minimize central acting medications as possible. Fall Precautions. Well lighted room through the day and minimize interruptions through the night to prevent acute delirium. PULMONARY: Supplemental 02 as needed Titrate Fio2 to keep Spo2 > or = 90% DuoNebs and CPT as needed IS hourly while awake for pulmonary hygiene Out of bed to chair as tolerated CARDIOVASCULAR: Follow hemodynamics. Titrate vasopressor to keep MAP >65 or systolic blood pressure >95mmHg telemetry LINES: CVC RT IJ Arterial line ET tube' FC OG tube GI & NUTRITION: Continue nutritional support Aspirations precautions Prokinetic agents and laxatives as needed KIDNEYS & ELECTROLYTES: Strict monitoring of intake and output Daily weights Avoid nephrotoxic agents Monitor electrolytes and replace as needed Goal urine output of 30mL/hr or 0.5mL/kg/hr ENDOCRINE: Maintain blood glucose between 100-180 at all times. Insulin sliding scale for blood glucose management INFECTIOUS DISEASE: Trend temperature. Clarke-culture if febrile. Sputum culture from 05/23/24 positive for MRSA, Betty albicans Pneumocystis carinii antigen positive Panculture: 06/02/24 Blood cultures Urine cultures Respiratory culture Antibiotics: Bactrim DS Fluconazole Mycelex Valganciclovir meropenem HEMATOLOGY & COAGULATION: Monitor H&H. Keep Hgb > 7 Transfuse 1 unit of PRBC for Hgb < 7 Transfuse 1 pack of platelets of platelets < 20, 000 Watch for any signs and symptoms of bleeding SKIN: Pressure ulcer prevention per facility protocol Rehab: PT/OT Prophylaxis: GI: Pepcid DVT: Lovenox Code Status: Full Resuscitation Disposition: ICU Other: Critical care time This patient required multiple bedside visits to manage the patient, review blood gases, coordinate with respiratory, nurses, talk to Infectious Disease, review radiology exams, talk to the family members and discuss advanced directives. I personally spent 90 minutes of critical care time in treatment of this patient. This includes patient management, time at bedside, time reviewing tests, labs, appropriate images and studies, documentation, and patient care coordination. This time excludes separately billable procedures. MARGO LOGAN PREMIUM CANCELLATION CLERK Jun 11, 2024 10:36
[2024-06-11 11:34] LABS: HEPATITIS A IGM ANTIBODY Non-Reactive (Nonreactive); HEPATITIS B CORE IGM ANTIBODY Non-Reactive (Negative); HEPATITIS B SURFACE ANTIGEN Non-Reactive (Nonreactive); HEPATITIS C ANTIBODY Non-Reactive (Nonreactive)
[2024-06-11] MEDS: furoSEMIDE 20MG VIAL IV SCH (12:08)
[2024-06-11] MEDS ORDERED: ETOMIDATE 20MG VIAL IVP ONE (14:00)
--- NOTE | 2024-06-11 14:20 | NUR ---
NURSE AT BEDSIDE WITH MARGO DON, PATIENT IS DISCUSSING INTUBATION WITH MARGO HER BREATHING IS BECOMING PROGRESSIVELY MORE LABORED AND SHE HAS VISIBLE RETRACTIONS IN SUPRASTERNAL AREA, WELL ABDOMINAL BREATHING, RR 40-60. RESPIRATORY THERAPY IS PRESENT AND RSI KIT PULLED BY RAVEN BLACKMON.
--- NOTE | 2024-06-11 14:21 | PRN ---
[facility] Procedure Note-ETube [facility] Procedure Note DATE OF PROCEDURE: 06/11/24 1415 INDICATION: Acute hypoxic respiratory failure Procedure performed: -Endotracheal intubation. Indication for procedure: -Acute respiratory failure. Pre-procedure checklist: -Informed consent obtained. -Time out per hospital policy. Medications used: -Etomidate 20 mg IV -rocuronium 50 mg IV Description of procedure: Hand hygiene was performed. Patient was sedated with IV Etomidate and paralyzed with IV rocuronium. A [7.5] endotracheal tube was inserted through the vocal cords on the first attempt using video-assisted glide scope with laryngeal scope blade size [4], grade [1] view. Tube secured at [22] cm at lip level. Bilateral breath sounds auscultated. Positive end-tidal CO2 capnography. Patient maintained 100% SpO2 during the entire procedure. Procedure completed without complications. Post-procedure chest x-ray showed proper placement of endotracheal tube. Procedure was performed under direct supervision by [Dr Satya Lundberg MD ] Time spent performing the procedure is independent of the time spent planning and coordinating the patient's care. MARGO LOGAN [facility] Jun 11, 2024 14:21
[2024-06-11] MEDS ORDERED: [UNRECOGNIZED DRUG - OTHER] IV SCH (14:30)
[2024-06-11] MEDS ORDERED: MEROPENEM IV SCH (14:30)
[2024-06-11] MEDS: CHLORHEXIDINE GLUCONATE 15 ML MOUTHWASH MM SCH (14:30)
[2024-06-11] MEDS ORDERED: CISATRACURIUM BESYLATE 2 MG/ML 10ML VIAL IVP SCH (14:30)
[2024-06-11] MEDS: ARTIFICAL TEARS SOL 15 ML OU SCH (14:30)
[2024-06-11] MEDS ORDERED: PHARMACY COMMUNICATION MISC SCH ×2 (14:30→20:30)
--- NOTE | 2024-06-11 15:23 | NUR ---
MPOA/ INTUBATION SW present when AMISHA Teague spoke to pt and son Dagoberto for need to intubate. Pt was alert and understanding of need and information given Prior to intubation. SW completed MPOA, designating son Dagoberto for MPOA, no directives were signed. Pt states her son knows her wishes. Son given original, copy placed on chart. Sw with son during procedure done at bedside. Son very emotional, SW provided emotional support.
[2024-06-11 15:44] LABS: ABG BASE EXCESS -5.2 mmol/L (-2.0-3.0); ABG HCO3 18.9 mmol/L (21.0-28.0); ABG OXYGEN SATURATION 93.4 % (94.0-98.0); ABG PCO2 31 mmHg (32-45); ABG PH 7.404 (7.350-7.450); CARBON MONOXIDE 0.3 % (0.5-1.5); HHb 6.6; PO2, ARTERIAL BG 71.3 mmHg (83.0-108.0); VENT MODE, BG AC (ROOM AIR)
[2024-06-11] MEDS: FENTanyl 2500MCG+NS 250ML 250 ML IV ONE (15:59)
[2024-06-11] MEDS: phenylEPHRINE HCL 10 MG in 0.9% NACL 250ML 250 ML IV PRN (16:00)
--- NOTE | 2024-06-11 16:06 | HMCIMG ---
CHEST 1VW REASON: verify placement of ET tube and verify placement of right central line COMPARISON: 06/11/2024 FINDINGS: There are diffuse bilateral infiltrates unchanged. ET tube is in good position just below midclavicular point, 2.8 cm above the sandra. The right IJ central line tip is in the superior vena cava, no evidence of pneumothorax. IMPRESSION: 1. ET tube and right IJ central line in good position, no pneumothorax.
--- NOTE | 2024-06-11 16:30 | NUR ---
FLOR[place] UPDATED. 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 AT THIS TIME, "NO NURSES ARE AVAILABLE DUE TO HEAVY PATIENT ACUITY, BUT WILL ASSIST NURSE SOON POSSIBLE". MARGO DON ADVISED OF THIS AND STATED "IT CAN WAIT UNTIL TONIGHT IF YOU DONT HAVE ENOUGH PEOPLE." ALSO ADVISED THAT UNABLE TO TAKE PATIENT FOR CT PATIENT WAS STILL DESATURATING AT TIMES EVEN WITH ET TUBE IN PLACE. MARGO ADVISED ME THAT SHE WOULD BE PUTTING IN ORDERS SOON, AND I ASKED HER IF THERE WAS ANYTHING THAT NEEDED TO GET DONE IMMEDIATELY AND SHE STATED "NO, NOTHING RIGHT NOW. IT IS OK, SHE HAS A PUREWICK ON, AND DOES NOT NEED AN OG TUBE RIGHT NOW, SO JUST WORRY ABOUT HER AIRWAY FOR NOW AND KEEPING HER O2 SATS UP."
--- NOTE | 2024-06-11 17:14 | PRN ---
[facility] Procedure Note [facility] Procedure Note DATE OF PROCEDURE: 06/11/24 INDICTAION: 14 30 Procedures performed: -Central line placement, right internal jugular vein -Intraoperative ultrasound guidance with permanent recording of images in chart. Pre-procedure checklist: -Informed consent obtained. -Time-out performed per hospital policy. Medications: -Lidocaine 1% 5 ml Description of procedure: Hand hygiene was performed. Cap, mask, sterile gown, and sterile gloves were donned. Area was prepped with 2% chlorhexidine and a large sterile drape was applied with sterile field maintained. 5 ml of Lidocaine injected into surrounding tissue. Using ultrasound probe with sterile sleeve in place, procedure site was assessed and the vein was entered with direct ultrasound guidance while maintaining strict sterile technique. Triple lumen catheter was inserted with Seldinger technique. Venous blood was aspirated freely from all 3 ports and flushed with 10 ml of 0.9% saline each. Line secured at the hub and sutured in place. Biopatch placed in the correct position and clear sterile d ressing was applied. A post-procedure chest x-ray was ordered. Procedure was performed under direct supervision of Dr. Satya Lundberg MD Time spent on this procedure is independent of the time spent planning and coordinating the patient's care. MARGO LOGAN CERTIFIED SURGICAL ASSISTANT Jun 11, 2024 17:14
[2024-06-11 18:00] LABS: CREATININE 0.6 mg/dL (0.5-1.0); POTASSIUM 3.8 mmol/L (3.5-5.1)
[2024-06-11] MEDS ORDERED: GANCICLOVIR SODIUM IV SCH (18:00)
[2024-06-11] MEDS ORDERED: [UNRECOGNIZED DRUG - OTHER] IV SCH (18:00)
--- NOTE | 2024-06-11 18:02 | PN ---
INFECTIOUS DISEASE PROGRESS NOTE Date of Service: Jun 11, 2024 SUBJECTIVE: This is a 49-year-old female patient who was admitted with chief complaint of shortness of breaths. A chest x-ray done on admission showed left lower lung pneumoniae. A CT chest showed bilateral pulmonary infiltrates but no evidence of PE. 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 Patient was seen and examined at bedside in the ICU room 208. Patient is awake, alert and oriented x 3. Patient went into acute hypoxic respiratory distress and was being intubated at time of visit. Continues with oropharyngeal lesions, possible cytomegalovirus. Patient is to be started on Ganciclovir on valganciclovir. Continues on Bactrim p.o. t.i.d. and fluconazole. We will continue to follow patient's care. PHYSICAL EXAM EYES: Anicteric. Pupils equal and reactive. HENT: No oral thrush seen, moist Oral mucosa. Oral lesions. NECK: Supple, no JVD or thyromegaly. LUNGS: Lung sounds diminished. Dyspnea. On high-flow Oxygen support. CARDIOVASCULAR: S1, S2 regular. No murmur heard. ABDOMEN: Soft, non tender, bowel sounds present, no organomegaly. CENTRAL NERVOUS SYSTEM: Awake, alert, oriented x 3. SKIN: No rashes, no swelling. LYMPHATICS: No peripheral lymphadenopathy. MUSCULOSKELETAL: No joint swelling, erythema or tenderness. EXTREMITIES: No cyanosis or clubbing. BACK: No deformity, no pressure ulcer. GENITOURINARY: No dysuria or hematuria. Vital Sign (Last 12 Hours) 06/11/24 06/11/24 06/11/24 06/11/24 06:00 06:44 06:45 06:46 Pulse 98 93 94 92 Resp 35 33 37 34 B/P (MAP) 97/43 148/98 Pulse Ox 90 89 89 O2 Delivery AVAPS AVAPS AVAPS FiO2 100 100 100 06/11/24 06/11/24 06/11/24 06/11/24 06:49 07:00 07:15 07:16 Pulse 93 87 85 85 Resp 34 32 32 29 B/P (MAP) 135/56 Pulse Ox 91 91 91 O2 Delivery AVAPS AVAPS AVAPS FiO2 100 100 100 100 06/11/24 06/11/24 06/11/24 06/11/24 07:30 07:45 07:46 08:00 Pulse 85 83 83 Resp 30 48 47 B/P (MAP) 146/62 Pulse Ox 89 91 91 92 O2 Delivery AVAPS AVAPS AVAPS Bi-PAP+ FiO2 100 100 100 100 06/11/24 06/11/24 06/11/24 06/11/24 08:00 08:00 08:15 08:16 Temp 99.0 Pulse 79 81 79 79 Resp 61 61 30 32 B/P (MAP) 136/93 Pulse Ox 88 88 89 91 O2 Delivery AVAPS AVAPS AVAPS AVAPS FiO2 100 100 100 06/11/24 06/11/24 06/11/24 06/11/24 08:30 08:45 08:46 09:00 Pulse 79 78 78 82 Resp 33 31 33 27 B/P (MAP) 140/63 Pulse Ox 91 91 91 100 O2 Delivery AVAPS AVAPS AVAPS AVAPS FiO2 100 100 100 100 06/11/24 06/11/24 06/11/24 06/11/24 09:15 09:16 09:30 09:40 Pulse 78 78 77 78 Resp 59 61 56 33 B/P (MAP) 128/48 Pulse Ox 100 100 89 88 O2 Delivery AVAPS AVAPS AVAPS AVAPS FiO2 100 100 100 100 06/11/24 06/11/24 06/11/24 06/11/24 09:45 09:46 09:55 10:10 Pulse 77 77 76 76 Resp 34 32 65 58 B/P (MAP) 125/53 Pulse Ox 89 86 87 87 O2 Delivery AVAPS AVAPS AVAPS AVAPS FiO2 100 100 100 100 06/11/24 06/11/24 06/11/24 06/11/24 10:16 10:25 10:40 10:46 Pulse 81 78 76 78 Resp 37 31 30 36 B/P (MAP) 158/57 156/48 Pulse Ox 88 87 87 86 O2 Delivery AVAPS AVAPS AVAPS AVAPS FiO2 100 100 100 100 06/11/24 06/11/24 06/11/24 06/11/24 10:55 11:10 11:16 11:16 Pulse 76 75 75 76 Resp 29 30 27 35 B/P (MAP) 144/68 Pulse Ox 87 87 87 O2 Delivery AVAPS AVAPS AVAPS FiO2 100 100 100 06/11/24 06/11/24 06/11/24 06/11/24 11:25 11:26 11:41 11:46 Pulse 74 74 75 73 Resp 30 31 B/P (MAP) 148/57 Pulse Ox 87 87 87 87 O2 Delivery AVAPS FiO2 100 06/11/24 06/11/24 06/11/24 06/11/24 11:56 12:00 12:00 12:11 Temp 98.4 Pulse 74 73 Resp 32 30 Pulse Ox 87 92 86 O2 Delivery Bi-PAP+ FiO2 100 06/11/24 06/11/24 06/11/24 06/11/24 12:17 12:23 12:26 12:41 Pulse 80 75 75 76 Resp 28 31 40 32 B/P (MAP) 181/62 166/65 Pulse Ox 84 88 88 87 06/11/24 06/11/24 06/11/24 06/11/24 12:46 12:56 13:11 13:16 Pulse 76 77 94 86 Resp 29 34 35 34 B/P (MAP) 150/64 123/80 Pulse Ox 88 87 85 86 06/11/24 06/11/24 06/11/24 06/11/24 13:26 13:41 13:46 13:56 Pulse 103 110 104 101 Resp 41 40 47 28 B/P (MAP) 137/77 Pulse Ox 84 72 87 93 06/11/24 06/11/24 06/11/24 06/11/24 14:11 14:15 14:16 14:16 Pulse 124 130 118 118 Resp 18 18 18 B/P (MAP) 164/73 164/73 Pulse Ox 90 90 90 FiO2 100 06/11/24 06/11/24 06/11/24 06/11/24 14:31 14:46 15:01 15:16 Pulse 116 110 105 103 Resp 20 20 25 B/P (MAP) 121/59 118/72 Pulse Ox 89 88 85 86 06/11/24 06/11/24 06/11/24 06/11/24 15:31 15:38 15:46 16:00 Temp 98.1 Pulse 103 103 101 Resp 24 22 B/P (MAP) 123/72 120/70 Pulse Ox 89 91 91 06/11/24 06/11/24 06/11/24 06/11/24 16:00 16:00 16:01 16:16 Pulse 99 100 Resp 22 B/P (MAP) 144/68 92/62 93/63 Pulse Ox 92 94 94 O2 Delivery Bi-PAP+ FiO2 100 06/11/24 06/11/24 06/11/24 06/11/24 16:31 16:46 16:47 16:58 Pulse 100 104 Resp 20 21 B/P (MAP) 91/61 96/65 Pulse Ox 94 95 FiO2 100 100 Intake & Output (last 24hrs) 06/10/24 06/10/24 06/11/24 15:00 23:00 07:00 Intake Total 680.0 ml 1279.1 ml 463.9 ml Output Total 2400 ml 2000 ml Balance 680.0 ml -1120.9 ml -1536.1 ml LABS: Laboratory: Test 06/11/24 15:42 06/11/24 04:00 06/11/24 02:42 06/11/24 01:09 Range/Units Blood Gas Specimen Type Arterial Arterial Blood pH 7.404 7.350-7.450 Arterial Blood Partial Pressure CO2 31 L 32-45 mmHg Arterial Blood Partial Pressure O2 71.3 L 83.0-108.0 mmHg Arterial Blood HCO3 18.9 L 21.0-28.0 mmol/L Arterial Blood Oxygen Saturation 93.4 L 94.0-98.0 % Arterial Blood Base Excess -5.2 L -2.0-3.0 mmol/L Hemoglobin (Blood Gas) 7.9 L 12.0-16.0 g/dL Sodium (Blood Gas) 135 L 136-145 MMOL/L Bedside Potassium (Blood Gas) 2.4 *L 3.4-4.5 MMOL/L Bedside Chloride (Blood Gas) 112 H 98-107 MMOL/L Bedside Glucose (Blood Gas) 101 H 65-95 MG/DL Bedside Ionized Calcium (Blood Gas) 0.81 L 1.15-1.33 MMOL/L Bedside Lactic Acid (Blood Gas) 0.96 H 0.36-0.75 MMOL/L Blood Gas Temperature 37.0 35.5-37.0 CELSIUS Blood Gas Respiration Rate 18.0 min. Blood Gas Vent Mode AC ROOM AIR FiO2 100.0 % Blood Gas Tidal Volume 500 ml Blood Gas PEEP 10 cm H2O Blood Gas Specimen Comment ELMA SHAH,RN Urine Color YELLOW YELLOW Urine Appearance CLEAR CLEAR Urine pH 6.0 5.0-8.0 Urine Specific [place] 1.010 1.001-1.031 Urine Protein 10 H NEGATIVE mg/dL Urine Glucose (UA) NEGATIVE NEGATIVE mg/dL Urine Ketones NEGATIVE NEGATIVE mg/dL Urine Occult Blood NEGATIVE NEGATIVE Urine Nitrate NEGATIVE NEGATIVE Urine Bilirubin NEGATIVE NEGATIVE mg/dL Urine Urobilinogen 2.0 H 0.2-1.0 mg/dL Urine Leukocyte Esterase 75 H NEGATIVE Carlo/uL Urine RBC 0-1 0-1 /HPF Urine WBC 2-5 H 0-1 /HPF Urine Squamous Epithelial Cells RARE 0-2 /HPF Urine Bacteria MOD None Seen /HPF Urine Hyaline Casts 2-5 H 0-1 /LPF /LPF Urine Osmolality 366 50-1200 mOsm/kg Urine Random Sodium 111 40-220 mmol/l White Blood Count 7.2 4.8-10.8 K/uL Red Blood Count 3.34 L 4.00-5.50 MIL/uL Hemoglobin 10.9 L 12.0-16.0 g/dL Hematocrit 31.3 L 36-48 % Mean Corpuscular Volume 93.7 79-99 fL Mean Corpuscular Hemoglobin 32.6 27.0-33.0 pg Mean Corpuscular Hemoglobin Concent 34.8 32.0-36.0 g/dL Red Cell Distribution Width 11.6 11.0-15.5 % Platelet Count 142 130-400 K/uL Mean Platelet Volume 9.4 7.5-10.5 fL Immature Granulocyte % (Auto) 0.6 0-1 % Neutrophils (%) (Auto) 92.3 H 40.0-77.0 % Lymphocytes (%) (Auto) 3.6 L 21.0-51.0 % Monocytes (%) (Auto) 2.1 L 3.0-13.0 % Eosinophils (%) (Auto) 1.3 0.0-8.0 % Basophils (%) (Auto) 0.1 0.0-5.0 % Neutrophils # (Auto) 6.6 1.8-7.7 K/uL Lymphocytes # (Auto) 0.3 L 1.0-4.8 K/uL Monocytes # (Auto) 0.2 0.1-1.0 K/uL Eosinophils # (Auto) 0.09 0.00-0.70 K/uL Basophils # (Auto) 0.01 0.00-0.20 K/uL Absolute Immature Granulocyte (auto 0.04 0-1 K/uL Nucleated Red Blood Cells 0.0 0.0-0.19 % D-Dimer Quantitative (PE/DVT) 4641 *H 0-500 ng/mL Sodium Level 128 L 136-145 mmol/L Potassium Level 4.2 3.5-5.1 mmol/L Chloride Level 94 L 101-111 mmol/L Carbon Dioxide Level 33 H 21-32 mmol/L Blood Urea Nitrogen 15 7-18 mg/dL Creatinine 0.6 0.5-1.0 mg/dL Glomerular Filtration Rate Calc 109 >90 mL/min Random Glucose 103 70-105 mg/dL Serum Osmolality 273 L 278-305 mOsm/kg Total Calcium 7.9 L 8.5-10.1 mg/dL Magnesium Level 1.90 1.80-2.40 mg/dL Total Bilirubin 0.3 0.2-1.0 mg/dL Aspartate Amino Transf (AST/SGOT) 69 H 10-37 U/L Alanine Aminotransferase (ALT/SGPT) 76 12-78 U/L Alkaline Phosphatase 131 50-136 U/L B-Type Natriuretic Peptide 11 0-100 pg/mL Total Protein 5.5 L 6.0-8.3 g/dL Albumin 1.7 L 3.5-5.0 g/dL Blood Gas CPAP 12 cm H2O ASSESSMENT: Acute hypoxic respiratory failure, requiring intubation. Pneumocystis carinii pneumonia. Infection with methicillin-resistant Staphylococcus aureus. Positive HIV test. Leukocytosis, resolved. Obesity. Oral candidiasis. Oropharyngeal lesions, possible cytomegalovirus. PLAN: Start patient on Ganciclovir or valganciclovir. Continue Bactrim DS b.i.d p.o.. Continue fluconazole p.o. Continue critical care support. Continue Mycelex. Continue steroids. Continue GI prophylaxis. Continue bronchodilators. Continue DVT prophylaxis. This case was reviewed and discussed with my supervising physician and the above assessment and plan was formulated and agreed upon. ATTESTATION BY PHYSICIAN I have seen and examined the patient. I reviewed the documentation, medical decision making, and treatment plan as noted by the mid-level provider above. I agree with the findings and plan of care. [place] MD, MIRTA L ZUCKER [facility] Jun 11, 2024 18:02
--- NOTE | 2024-06-11 18:16 | NUR ---
CTA NO HOLD AT THIS TIME. PT STILL UNSTABLE.
[2024-06-11] MEDS: MEROPENEM 1GM 1 GM VIAL IVPB SCH (18:20)
[2024-06-11] MEDS: MIDAZOLAM 100MG-0.9% NS 100ML 100ML BAG IV ONE (18:40)
[2024-06-11] MEDS: rocuRONium bROMide 10MG/1ML 5ML VL IV PRN (20:33)
[2024-06-11] MEDS: VALGANCICLOVIR HCL 450 MG PO SCH (20:34)
[2024-06-11] MEDS: BACTRIM 800MG/160MG 10ML VIAL 320 MG in DEXTROSE 5%-WATER 500 ML IV SCH (22:53)
[2024-06-11] MEDS: PHARMACY COMMUNICATION MISC ONE (22:58)
--- NOTE | 2024-06-11 23:44 | PRN ---
Procedure Note Date: 06/11/24 Time:1500 Procedure: Arterial line This is a procedure note. Procedure performed: 1. Arterial line insertion. 2. Intraoperative Ultrasound Diagnosis: hypotension, hypoxic respiratory failure Site: Right radial artery. Description of procedure: Consent obtained/ waived, procedure performed emergently. Hand hygiene. Time out done. Chlorhexidine was used to prepare the skin. Intraoperative US was used to localize vascular structure and intra-arterial access of guidewire. 20g Arterial line inserted with Seldinger technique on site specified above. Line secured at the hub. Patient tolerated procedure well. No immediate complications. EBL: 0.5 cc Procedure performed under direct supervision of MARGO Malik MD Jun 11, 2024 23:44
[2024-06-12] VITALS (82 sets, daily range): BP systolic 51–190; BP diastolic 32–295; PULSE 69–128; RESP 18–31; TEMP 98.1–99.9; O2SAT 91–100
[2024-06-12 00:07] LABS: CREATININE 0.6 mg/dL (0.5-1.0); MAGNESIUM 2.5 mg/dL (1.80-2.40); POTASSIUM 3.9 mmol/L (3.5-5.1)
[2024-06-12] MEDS: MIDAZOLAM 100MG-0.9% NS 100ML 50 ML IV PRN (02:30)
[2024-06-12 03:23] LABS: HEMATOCRIT 31.8 % (36-48); MEAN CORPUSCULAR HEMOGLOBIN 32.4 pg (27.0-33.0); MEAN CORPUSCULAR HGB CONC 34.3 g/dL (32.0-36.0); MEAN CORPUSCULAR VOLUME 94.6 fL (79-99); RED BLOOD CELL COUNT(AUTO) 3.36 MIL/uL (4.00-5.50); RED CELL DISTRIBUTION WIDTH 11.6 % (11.0-15.5); WHITE BLOOD COUNT (AUTO) 7.7 K/uL (4.8-10.8)
[2024-06-12 03:40] LABS: ALBUMIN 1.7 g/dL (3.5-5.0); BILIRUBIN,TOTAL 0.2 mg/dL (0.2-1.0); CREATININE 0.5 mg/dL (0.5-1.0); MAGNESIUM 2.4 mg/dL (1.80-2.40)
[2024-06-12 04:40] LABS: ABG BASE EXCESS 1.6 mmol/L (-2.0-3.0); ABG HCO3 30.4 mmol/L (21.0-28.0); ABG OXYGEN SATURATION 99.1 % (94.0-98.0); ABG PCO2 67 mmHg (32-45); ABG PH 7.276 (7.350-7.450); PO2, ARTERIAL BG 190.6 mmHg (83.0-108.0); VENT MODE, BG AC VC (ROOM AIR)
--- NOTE | 2024-06-12 09:20 | PN ---
[facility] PROGRESS NOTE Date Patient Seen: Jun 12, 2024 Time of Visit: 09:19 Supervising Physician: Satya Lundberg MD Primary Care Physician: Stu Foss MD Outpatient Specialists: Inpatient Consults: Pulmonology PROBLEM LIST: Severe ARDS Acute hypoxemic respiratory failure s/p intubation 06/11/24 requiring proning Bilateral lower lobe bacterial pneumonia + MRSA POA, +Azra Confirmed PCP PNA per Ag (serology), POA Pneumomediastinum on x-ray 06/12/24 Concern for disseminated CMV Elevated DDIMER r/o PE & DVT New HIV/AIDS positive POA Hyponatremia and hyperkalemia, suspected Bactrim induced Normocytic anemia, not POA Neutrophilia, POA Hyperglycemia, POA Obesity BMI of 32.3 Former smoker Fatty liver, POA Moderate hypoalbuminemia POA Previous COVID-19 infection INTERVAL HISTORY: 06/10/2024: At the time of my evaluation, the patient was lying in bed. Per the patient report, she had a anxiety episode overnight. He is awake alert and oriented x4. She remains intermittently febrile most recent 100.8. On a monitor, the patient is normotensive without any pressor support. She remains tachycardic up in the 120s. The patient remains on oxygenation with high-flow nasal cannula 30 L/70% FiO2 and denies any hypoxemic event. She continues to feed orally, no complaint of nausea vomiting or diarrhea. The patient reports voiding without difficulty. Intake and output shows a intake of 2006 units 60.0, output of 2500 and a positive balance of 160.0. Laboratory data review of significance showed no changes of concern on CBC, chemistry panel of significance showed a sodium count of 128, potassium of 3.8, chloride of 93 and the remaining parameters were unremarkable. Blood cultures showing no growth. A chest CT was ordered and is pending. No other complaint. 06/11/24: 02:07 RN called. Reports patient is tachypneic, RR 30s-40s bpm. On BiPAP at 100% FiO2,12/6, rate 16 bpm. Patient was changed to AVAPS and ABGs were redrawn, pH 7.413, PO2 69.4, pCO2 42.4. The patient is on Precedex but she had to go down on Precedex due to hypotension. RN reports that patient is not sedated with Precedex due to having to slow down hypotension. Added Mario- Synephrine IV drip. 03:38 RN called that patient remains tachypneic. Lasix 40 mg IV x1 dose ordered, Solu-Medrol IV 60 IV q.6, BNP, and D-dimer were ordered. I went to assess the patient at bedside. I explained to the patient and significant other at bedside the ABGs results. I informed that the patient is tachypneic, RR 44 bpm, tachycardic 123, and ABGs showed hypoxia at 69.4. I spent a lengthy amount of time educating the patient on her guarded/critical condition. They verbalized understanding. Both of them report that they are not ready for intubation, but we will allow intubation if does not improve. I showed them of the retractions that the patient has and the abdominal breathing. They verbalized understanding and continued to request to hold on intubation for now. Per chart review CTA on 05/24/2024 was negative for a PE. Bilateral pulmonary infiltrates with segmental atelectasis. Two days BNP was WNL. D-dimer was 4641. 06/11/24 AM rounds: Patient's oxygenation status not improving on BiPAP with the FiO2 100%. Saturating 88-89% patient appears tachypneic pale and tachycardic. Spoke to patient and informed of need for intubation. Patient requested to wait for her son to be at bedside. once son was at bedside informed them of the need for intubation and risks and benefits. In order to alleviate some of the pt's anxiety and fear of intubation we has son at her side until sedated prior to intubation in which then son stepped out and patient was intubated per Dr. Lundberg. Still on the ventilator patient is saturating 89%, ventilator settings adjusted to assist control volume control tidal volume 500 respiratory rate of 18 FiO2 of 100% and PEEP of 10, plateau pressure 23. Decision was made for proning. Added Nimbex as a paralyzing agent per protocol drip. Informed pt's son on need for a central line due to patient requiring multiple drips. Sodium in agreement. Otherwise on CBC similar to yesterday, chemistry kidneys are doing well with a creatinine of 0.6 with a GFR of 109 sodium has improved to 130 potassium 3.8 chloride of 94 BUN of 30. OG tube to be placed and start tube feedings. Pt with multiple mouth sores concern for herpes simplex. V alganciclovir 900 mg p.o. b.i.d. started per pharmacy to dose. 06/12/24-patient assessed in room two eight in the ICU, patient is sedated and paralyzed with Nimbex drip, fentanyl and Versed. She is hemodynamically stable. On mechanical ventilation on assist-control volume control tidal volume 500 respiratory rate of 24 FiO2 of 60% with a PEEP of 10 saturating 99%. Pt was prone that 20:00 yesterday and is due for supine position at noon today. Urine output 3.9 L with a-1.4 L balance. CBC unremarkable. Chemistries sodium is 131 chloride 95 carbon dioxide 33 BUN 28 creatinine 0.5 and GFR of 114, glucose 156 mg/dL. Total calcium 8.0 albumin of 1.7. With a calcium correction for hypoalbuminemia of 9.8 mg/dL. ABG for this morning with a pH of 7.36 pCO2 of 47, PO2 of 122 on FiO2 of 80% and bicarb of 27.7. Chest x-ray shows interval development of pneumomediastinum as well as subcut aneous consistent with a emphysema in the neck. Tubes and all lines appear in good position there are diffuse bilateral infiltrates which otherwise unchanged. REVIEW OF SYSTEMS: Unable to obtain ROS from patient due to patient's medical condition. PHYSICAL EXAM: GENERAL: alert, weak, awake oriented x 3 HEENT: EOMI, Sclera non icteric, moist mucosa NECK: Supple, no JVD, trachea midline LUNGS: Tachypneic, RR 44 beats per minute, coarse ronchi HEART: Regular rate and rhythm. Normal S1 and S2, without murmurs ABD: Abdomen soft, nontender. Bowel sounds present EXT: No clubbing cyanosis or edema NEURO: Alert and oriented to person, follows commands Vital Signs (last 8hr) Date Time Temp Pulse Resp B/P (MAP) Pulse Ox O2 Delivery O2 Flow Rate FiO2 06/12/24 08:12 80 06/12/24 08:02 99.9 06/12/24 07:46 99.9 82 24 100/54 (69) 99 175/59 (97) 06/12/24 07:30 77/46 06/12/24 07:02 105 100 06/12/24 06:46 88 19 06/12/24 06:46 87 24 74/44 (54) 98 144/53 (83) 06/12/24 06:00 86 24 105/58 (74) 99 06/12/24 05:46 87 24 109/61 (77) 99 190/72 (111) 06/12/24 05:45 87 24 108/61 (77) 99 06/12/24 05:30 87 24 115/64 (81) 98 06/12/24 05:15 90 24 92/56 (68) 97 06/12/24 05:00 97 24 82/50 (61) 96 06/12/24 04:46 99 24 86/51 (63) 97 158/71 (100) 06/12/24 04:45 101 24 89/53 (65) 97 06/12/24 04:30 105 18 95/55 (68) 100 06/12/24 04:15 105 18 96/57 (70) 100 06/12/24 04:09 105 100 06/12/24 04:00 100 Ventilator+ 100 06/12/24 04:00 105 18 96/56 (69) 100 06/12/24 04:00 100 06/12/24 03:45 105 18 97/56 (70) 100 06/12/24 03:30 105 18 89/53 (65) 100 06/12/24 03:21 99.3 06/12/24 03:15 111 18 91/53 (66) 100 06/12/24 03:00 120 18 106/59 (75) 100 06/12/24 02:45 128 18 114/295 (235) 100 06/12/24 02:30 125 18 113/62 (79) 100 06/12/24 02:15 121 18 108/60 (76) 100 06/12/24 02:00 118 18 112/63 (79) 100 06/12/24 01:53 115 100 06/12/24 01:46 116 18 105/60 (75) 99 159/89 (112) 06/12/24 01:45 116 18 105/60 (75) 99 06/12/24 01:30 116 18 104/59 (74) 99 LABS: Hematology Labs: Test 06/12/24 03:01 06/11/24 02:42 Range/Units White Blood Count 7.7 4.8-10.8 K/uL Red Blood Count 3.36 L 4.00-5.50 MIL/uL Hemoglobin 10.9 L 12.0-16.0 g/dL Hematocrit 31.8 L 36-48 % Mean Corpuscular Volume 94.6 79-99 fL Mean Corpuscular Hemoglobin 32.4 27.0-33.0 pg Mean Corpuscular Hemoglobin Concent 34.3 32.0-36.0 g/dL Red Cell Distribution Width 11.6 11.0-15.5 % Platelet Count 169 130-400 K/uL Mean Platelet Volume 9.5 7.5-10.5 fL Nucleated Red Blood Cells 0.0 0.0-0.19 % Immature Granulocyte % (Auto) 0.6 0-1 % Neutrophils (%) (Auto) 92.3 H 40.0-77.0 % Lymphocytes (%) (Auto) 3.6 L 21.0-51.0 % Monocytes (%) (Auto) 2.1 L 3.0-13.0 % Eosinophils (%) (Auto) 1.3 0.0-8.0 % Basophils (%) (Auto) 0.1 0.0-5.0 % Neutrophils # (Auto) 6.6 1.8-7.7 K/uL Lymphocytes # (Auto) 0.3 L 1.0-4.8 K/uL Monocytes # (Auto) 0.2 0.1-1.0 K/uL Eosinophils # (Auto) 0.09 0.00-0.70 K/uL Basophils # (Auto) 0.01 0.00-0.20 K/uL Absolute Immature Granulocyte (auto 0.04 0-1 K/uL Chemistry Labs: Test 06/12/24 05:49 06/12/24 03:01 06/12/24 00:02 06/11/24 02:42 Range/Units Whole Blood Glucose 165 H 70-110 MG/DL Sodium Level 131 L 136-145 mmol/L Potassium Level 4.0 3.5-5.1 mmol/L Chloride Level 95 L 101-111 mmol/L Carbon Dioxide Level 33 H 21-32 mmol/L Blood Urea Nitrogen 28 H 7-18 mg/dL Creatinine 0.5 0.5-1.0 mg/dL Glomerular Filtration Rate Calc 114 >90 mL/min Random Glucose 156 H 70-105 mg/dL Total Calcium 8.0 L 8.5-10.1 mg/dL Magnesium Level 2.40 1.80-2.40 mg/dL Total Bilirubin 0.2 0.2-1.0 mg/dL Aspartate Amino Transf (AST/SGOT) 34 10-37 U/L Alanine Aminotransferase (ALT/SGPT) 58 12-78 U/L Alkaline Phosphatase 149 H 50-136 U/L Total Protein 6.0 6.0-8.3 g/dL Albumin 1.7 L 3.5-5.0 g/dL Bedside Glucose Comment Notified Nurse Serum Osmolality 273 L 278-305 mOsm/kg B-Type Natriuretic Peptide 11 0-100 pg/mL Coagulation Labs: Test 06/11/24 02:42 Range/Units D-Dimer Quantitative (PE/DVT) 4641 *H 0-500 ng/mL DIAGNOSTICS / RADIOLOGY RESULTS: [ ]Signed PATIENT: RIO OSORIO MR#: [id number] : 1975 SEX: F AGE: 49 LOCATION: [facility] ORDER [id number] STATUS: ADM IN REPORT#: [id number] SERVICE 0600 REASON: intubated ORDERING PHYSICIAN: MARGO LOGAN PROCEDURE: CXR1VW - CHEST 1VW CHEST 1VW REASON: intubated COMPARISON: 06/11/2024 FINDINGS: There are extensive bilateral infiltrates, unchanged. Heart size is normal ET, NG and right IJ central line remain in good position. There is been interval development of some pneumomediastinum. The air dissects superiorly into the base of the neck, there is a small amount in the left axilla as well. There is no evidence of pneumothorax. IMPRESSION: 1. Interval development of pneumomediastinum as well as subcutaneous consistent emphysema in the neck. 2. Tubes and lines appear in good position, there are diffuse bilateral infiltrates which are otherwise unchanged. DICTATED BY: LALO IBANEZ MD DATE: 06/12/241411 ELECTRONICALLY SIGNED BY: LALO IBANEZ MD DATE: 06/12/241415 PLAN Continue nimbex and prone for 16hrs a day For 48 more hours. manage vent per abg maintain plateu pressure of < 30 Wean PEEP as tolerated 1st then FiO2 due to pneumomediastinum. Continue steroids Continue Atrovent q.4 hours. Start Mario-Synephrine IV drip to maintain map above 65 Start Lovenox1 milligram/kilogram b.i.d.. Until rule out of PE via CTA Added venous Doppler and chest x-ray PE protocol. Abx Per ID recommends Valgancilcovir add meropenem Trend Lactic acid. POA is son NEURO: Minimize central acting medications as possible. Fall Precautions. Well lighted room through the day and minimize interruptions through the night to prevent acute delirium. PULMONARY: Supplemental 02 as needed Titrate Fio2 to keep Spo2 > or = 90% DuoNebs and CPT as needed IS hourly while awake for pulmonary hygiene Out of bed to chair as tolerated CARDIOVASCULAR: Follow hemodynamics. Titrate vasopressor to keep MAP >65 or systolic blood pressure >95mmHg telemetry LINES: CVC RT IJ Arterial line ET tube' FC OG tube GI & NUTRITION: Continue nutritional support Aspirations precautions Prokinetic agents and laxatives as needed KIDNEYS & ELECTROLYTES: Strict monitoring of intake and output Daily weights Avoid nephrotoxic agents Monitor electrolytes and replace as needed Goal urine output of 30mL/hr or 0.5mL/kg/hr ENDOCRINE: Maintain blood glucose between 100-180 at all times. Insulin sliding scale for blood glucose management INFECTIOUS DISEASE: Trend temperature. Clarke-culture if febrile. Sputum culture from 05/23/24 positive for MRSA, Betty albicans Pneumocystis carinii antigen positive Panculture: 06/02/24 Blood cultures Urine cultures Respiratory culture Antibiotics: Bactrim DS Fluconazole Mycelex Valganciclovir meropenem HEMATOLOGY & COAGULATION: Monitor H&H. Keep Hgb > 7 Transfuse 1 unit of PRBC for Hgb < 7 Transfuse 1 pack of platelets of platelets < 20, 000 Watch for any signs and symptoms of bleeding SKIN: Pressure ulcer prevention per facility protocol Rehab: PT/OT Prophylaxis: GI: Pepcid DVT: Lovenox Code Status: Full Resuscitation Disposition: ICU Other: Critical care time This patient required multiple bedside visits to manage the patient, review blood gases, coordinate with respiratory, nurses, talk to Infectious Disease, review radiology exams, talk to the family members and discuss advanced directives. I personally spent 90 minutes of critical care time in treatment of this patient. This includes patient management, time at bedside, time reviewing tests, labs, appropriate images and studies, documentation, and patient care coordination. This time excludes separately billable procedures. MARGO LOGAN [facility] Jun 12, 2024 09:20
[2024-06-12 10:01] LABS: ABG HCO3 27.7 mmol/L (21.0-28.0); ABG OXYGEN SATURATION 98.3 % (94.0-98.0); ABG PCO2 47 mmHg (32-45); ABG PH 7.386 (7.350-7.450); PO2, ARTERIAL BG 122.2 mmHg (83.0-108.0); VENT MODE, BG AC (ROOM AIR)
--- NOTE | 2024-06-12 12:20 | NUR ---
SUPINED. PATIENT FOR CTA. WILL ASSESS PT'S O2 SATS LYING FLAT IN THE ROOM PRIOR TO ARRANGING FOR CT CURRENTLY 97 ON 60%
--- NOTE | 2024-06-12 13:47 | PN ---
[facility] PROGRESS NOTE Date of Service: Jun 12, 2024 Time of Service: 13:43 SUBJECTIVE: [ ] Ms. Abdullahi is a 49-year-old female that was seen and examined today on 05/23/2024. Patient is a good historian and personal health. Patient's son Dagoberto Salcido is at bedside. Patient states that she came to the emergency department with a chief complaint of shortness of breath. Onset was two weeks ago. Location is to lungs. Duration is on and off. Character is described as "easily running out of air." Initially shortness and breath was only aggravated with climbing one or two flights of stairs but symptoms have progressively worsened and patient becomes short of breath even standing or walking short distances. There was no alleviating factors however previously symptoms were being controlled with daily morning albuterol nebulizer treatments. Patient denies any associated chest pain or dizziness. Patient reports an episode of COVID in December 2023. emergency department CBC unremarkable, chemistry unremarkable, urinalysis unremarkable, influenza screen negative, COVID negative, blood gas shows PO2 less than 45. Chest x-ray shows left lower lung pneumonia and minimal right lung base atelectasis. Upon arrival to the emergency department patient was placed on a BiPAP due to respiratory distress. 05/24/2024-patient was seen and examined at the bedside, still on BiPAP. Patient is able to speak, and says she feels much better than before. Patient says after COVID in December she developed severe bronchitis and she was on Solu-Medrol and albuterol, which did not help her much and later she had high fevers and shortness of breath which is when she came to the ED.Vitals afebrile pulse 76, RR 38 tachypneic , blood pressure 115/68, pulse oxygen 99 on BiPAP flow of 60. On ABG pH 7.47, pCO2 29, PO2 109.4, oxygen saturation 98.3. [id number] potassium 4.1 BUN15 creatinine 0.5 GFR 114. We will closely monitor the patient. [employer] Dean consult noted waiting on the recommendation 05/25/24 patient was seen and examined and case discussed with RN and family by the bedside. She was breathing better today. She has been on BiPAP all night but now he was on 100% non-rebreather with further efforts to continue to wean the oxygen requirements down. 05/27/24 patient is seen and examined at bedside, acute events overnight, case discussed with the RN, BP 131/64, afebrile, saturating 96-97% via Ventimask, FiO2 40%. The patient admits cough productive of clear phlegm. Serology tests reviewed, HIV preliminary positive, discussed with the patient. 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 We will continue the patient on IV antibiotics, continue fluconazole, continue to follow Pulmonary and ID input and recommendations. After provided in the preliminary results of HIV test, she denies any suicidal or homicidal ideations. 05/28 patient has been seen and examined, no acute events overnight, case discussed with the RN, during my visit patient is sitting comfortably in the chair, hemodynamically stable, off Ventimask, currently on 10 L via nasal cannula, saturating 98%, tolerated BiPAP overnight. she feels better, less shortness a breath, still admits cough productive of yellow phlegm. No chest pain. Getting IV antibiotics during my visit. HIV P24 antigen, nonreactive. We will continue to follow Pulmonary and Infectious Disease input and recommendations. 05/29 patient has been seen and examined, no acute events overnight, case discussed with the RN, during my visit patient is sitting comfortably in the chair, hemodynamically stable, remains on 10 L via nasal cannula, saturating 98% , still admits cough productive of yellow phlegm. No chest pain. Getting IV antibiotics during my visit. HIV P24 antigen, nonreactive. Pending CD4 cell count. We will continue to follow Pulmonary and Infectious Disease input and recommendations. 05/30 the patient has been seen and examined, no acute events overnight, BP 114/66, during my visit she is on Ventimask, saturating 95%, FiO2 60%. Without the Ventimask the patient desaturates to the low 70s. Patient tolerating BiPAP during the night. Still admits cough productive of thick yellow phlegm, no chest pain. Results of CD4 cell count reviewed, discussed with the patient. We will continue broad-spectrum IV antibiotics. Continue to follow Pulmonary and Infectious Disease input and recommendations. 05/31 the patient has been seen and examined, upgraded to the ICU, during my visit she is sitting in the chair, BP 113/72, heart rate of 109, she is on Oxymizer, 30 L, FiO2 100%. She is alert oriented x3, still admits cough productive of thick yellow phlegm, no chest pain. Hemoglobin 12.9, hematocrit 36.6, WBC 14.6. ABG with pH 7.4, pCO2 40, PO2. Chest x-ray shows left lower l obe infiltrate consistent with pneumonia. She is getting IV antibiotics during my visit. Patient will remain in the ICU, continue to follow critical Care as well as infectious disease input and recommendations. 06/01 patient is seen and examined, sitting comfortable in chair, awake, following commands, remains on high-flow oxygen, FiO2 70%, 30 L, BP 117/67, heart rate of 78, respiratory rate of 30-36, saturating 100%, CBC with a hemoglobin 13.6, hematocrit 38.9, WBC 12.4. Platelet count of 341. Chest x-ray showing persistent left lung infiltrate, cardiac size and mediastinum unremarkable. The bony structures are within the normal limits. Patient getting IV antibiotics during my visit. Patient to continue with the high-dose steroids. Serology test positive for Pneumocystis sandra. Patient on Bactrim two tablets p.o. t.i.d.. Continue also doxycycline and cefepime IV. Continue to follow infectious disease input and recommendation. Continue to follow Pulmonary input and recommendations. 06/02 patient is seen and examined at bedside, currently in prone position, alert oriented x3. CPT started last night, she has started having more loose phlegm expectorated. BP 114/74, tachycardic 114, saturating 95%, high-flow nasal cannula, 30 L, FiO2 80%. CBC with a hemoglobin 16.9, hemoglobin 14 0, hematocrit 39.8, platelet count 347. Chest x-ray shows persistent left lung infiltrate. 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 HIV preliminary positive, HIV P 24 nonreactive, HIV-one RNA by PCR [id number]. Serology test for toxoplasma currently pending. Patient on IV antibiotics as well as high-dose steroids. Continue to follow infectious Disease and Pulmonary input and recommendations. 06/03 patient seen at bedside, no acute events overnight. She continues with respiratory distress, with increasing oxygen requirements. Critical Care has discussed a possible need for intubation if she does not improve. She has been started on steroids due to underlying PCP pneumonia. WBC improved from 16.9 down to 13.5, sodium stable at 132, same as yesterday, lactic acid downtrending from 4.1 down to 3.2, remainder of her labs are relatively unremarkable. 06/04 patient seen at bedside, no acute events overnight. She remains on high- flow nasal cannula, mildly tachycardic. WBC elevated at 13.3, sodium decreased from 132 down to 129, remainder of her labs are relatively unremarkable. Continue to wean supplemental oxygen. Further care per critical Care 06/05 patient seen at bedside, no acute events overnight. She remains on high- flow nasal cannula with BiPAP overnight and is still tachycardic. Heart rate ranging from 104 up to 113, WBC improved from 13.3 down to 11.1, sodium decreased from 120 down to 126, remainder of her labs are relatively unremarkable. We will continue to wean oxygen as able. 06/06 Patient seen at bedside, no acute events overnight. She remains on high- flow nasal cannula with BiPAP overnight and is still tachycardic. Heart rate ranging from 104 up to 122, WBC improved from 11.1 down to 10.6, sodium improved from 126 up to 129, remainder of her labs are relatively unremarkable. We will continue to wean oxygen as able. 06/07 patient seen at bedside, no acute events overnight. She is still on high- flow nasal cannula, RT advised to wean oxygen, currently saturating 100% on 30L. She is tachycardic, sodium decreased from 129 down to 123, likely secondary to Bactrim. Patient is asymptomatic, will continue with bactrim, if sodium continues to decrease consider a holiday from bactrim. 06/08 patient seen at bedside, no acute events overnight. She is still on high- flow nasal cannula, RT advised to wean oxygen, currently saturating 100% on 30L. She is tachycardic, sodium stable at 123, same as yesterday. Pending improvement in respiratory status 06/09 patient seen at bedside, he remains on high-flow nasal cannula, we will continue to wean as able, appreciate pulmonology assistance, tachycardic with heart rate ranging from 123 up to 130. She is still having low-grade fevers at 100.8. Sodium increased from 123 up to 130, remainder of her labs are relatively unremarkable. 06/10 patient is seen and examined at bedside, remains on high-flow oxygen, she feels mildly anxious, no chest pain. Still with a cough productive of white phlegm. Still tachycardic, heart rate 117-122. Patient is still spiking low- grade fever. Hemoglobin 10.9, hematocrit 30.5. Sodium remained low at 128, BUN and creatinine of 16 and 0.4. 06/11 patient is seen and examined at bedside, patient now on AVAPS, FiO2 100%, patient became restless last night, she had to be started on Precedex. During my visit she remains alert oriented x3, no chest pain. BP 120/48, she is saturating 100%. Hemoglobin 10 point, hematocrit 31.3. ABG shows persistent hypoxemia, with a PO2 of 69.4. Chest x-ray shows extensive infiltrates on the left which is stable to somewhat increased, there has been interval development of perihilar infiltrate on the right. Normal bilateral lower extremity venous Doppler ultrasound. Continue the patient on prednisone 20 mg p.o. daily, continue Bactrim two tablets p.o. t.i.d. as well as fluconazole 100 mg p.o. daily. 06/12 patient is seen and examined at bedside, intubated, on mechanical ventilation, per discussion with the RN, patient was in respiratory distress yesterday, decision made to intubate the patient. During my visit the patient is midazolam, fentanyl, patient paralyzed, also on Nimbex. She is in a prone position. On pressor support with phenylephrine. Also on Precedex. She is also on hydrocortisone 100 mg IV q.8 hours. Son at bedside, updated. ABG shows pH 7.38, pCO2 47, PO2 122, bicarb of 27.7. REVIEW OF SYSTEMS 12 point review of systems negative unless noted in HPI PHYSICAL EXAM GENERAL APPEARANCE: Patient intubated, on mechanical ventilation. NEUROLOGICAL: Cranial nerves II-XII grossly intact. Motor is 5/5 in bilateral upper and lower extremities proximal to distal. No sensory deficits. HEENT: Face is symmetric. Pupils are equal and reactive. Extraocular movements are intact. NECK: Supple. No JVD. No thyromegaly. No submental, submandibular, pre- /postauricular, occipital or supraclavicular lymphadenopathy. CHEST: Normal chest expansion. No Telemetry. LUNGS: Bilateral rhonchi, no expiratory wheezing CARDIOVASCULAR: Regular. S1 and S2 normal. No appreciable rubs, murmurs or gallops. ABDOMEN: Soft, nontender, and nondistended. There is no rebound, voluntary guarding, or rigidity. : Deferred. No Souza. EXTREMITIES: Non-edematous and not cyanotic. No clubbing. Good capillary refill. SKIN: No skin breakdown. Vital Signs (last 8hr) Date Time Temp Pulse Resp B/P (MAP) Pulse Ox O2 Delivery O2 Flow Rate FiO2 06/12/24 12:08 98.1 06/12/24 12:05 79 70 06/12/24 11:05 79 19 06/12/24 10:46 79 24 95/51 (66) 97 128/66 (86) 06/12/24 10:15 101 70 06/12/24 10:10 70 06/12/24 09:46 79 24 97/52 (67) 99 129/69 (89) 06/12/24 08:46 80 24 97/52 (67) 99 129/68 (88) 06/12/24 08:12 80 06/12/24 08:02 99.9 06/12/24 08:00 81 24 100/53 (69) 99 06/12/24 07:46 99.9 82 24 100/54 (69) 99 175/59 (97) 06/12/24 07:30 77/46 06/12/24 07:02 105 80 06/12/24 06:46 88 19 06/12/24 06:46 87 24 74/44 (54) 98 144/53 (83) 06/12/24 06:00 86 24 105/58 (74) 99 06/12/24 05:46 87 24 109/61 (77) 99 190/72 (111) 06/12/24 05:45 87 24 108/61 (77) 99 LABS: Laboratory: Test 06/12/24 11:31 06/12/24 10:00 06/12/24 03:01 06/12/24 00:02 Range/Units Whole Blood Glucose 163 H 70-110 MG/DL Blood Gas Specimen Type Arterial Arterial Blood pH 7.386 7.350-7.450 Arterial Blood Partial Pressure CO2 47 H 32-45 mmHg Arterial Blood Partial Pressure O2 122.2 H 83.0-108.0 mmHg Arterial Blood HCO3 27.7 21.0-28.0 mmol/L Arterial Blood Oxygen Saturation 98.3 H 94.0-98.0 % Arterial Blood Base Excess 2.0 -2.0-3.0 mmol/L Blood Gas Temperature 37.0 35.5-37.0 CELSIUS Blood Gas Respiration Rate 24.0 min. Blood Gas Vent Mode AC ROOM AIR FiO2 80.0 % Blood Gas Tidal Volume 500 ml Blood Gas PEEP 10 cm H2O Blood Gas Specimen Comment ALINENIOBE White Blood Count 7.7 4.8-10.8 K/uL Red Blood Count 3.36 L 4.00-5.50 MIL/uL Hemoglobin 10.9 L 12.0-16.0 g/dL Hematocrit 31.8 L 36-48 % Mean Corpuscular Volume 94.6 79-99 fL Mean Corpuscular Hemoglobin 32.4 27.0-33.0 pg Mean Corpuscular Hemoglobin Concent 34.3 32.0-36.0 g/dL Red Cell Distribution Width 11.6 11.0-15.5 % Platelet Count 169 130-400 K/uL Mean Platelet Volume 9.5 7.5-10.5 fL Nucleated Red Blood Cells 0.0 0.0-0.19 % Sodium Level 131 L 136-145 mmol/L Potassium Level 4.0 3.5-5.1 mmol/L Chloride Level 95 L 101-111 mmol/L Carbon Dioxide Level 33 H 21-32 mmol/L Blood Urea Nitrogen 28 H 7-18 mg/dL Creatinine 0.5 0.5-1.0 mg/dL Glomerular Filtration Rate Calc 114 >90 mL/min Random Glucose 156 H 70-105 mg/dL Total Calcium 8.0 L 8.5-10.1 mg/dL Magnesium Level 2.40 1.80-2.40 mg/dL Total Bilirubin 0.2 0.2-1.0 mg/dL Aspartate Amino Transf (AST/SGOT) 34 10-37 U/L Alanine Aminotransferase (ALT/SGPT) 58 12-78 U/L Alkaline Phosphatase 149 H 50-136 U/L Total Protein 6.0 6.0-8.3 g/dL Albumin 1.7 L 3.5-5.0 g/dL Bedside Glucose Comment Notified Nurse Test 06/11/24 15:42 06/11/24 04:00 06/11/24 02:42 06/11/24 01:09 Range/Units Hemoglobin (Blood Gas) 7.9 L 12.0-16.0 g/dL Sodium (Blood Gas) 135 L 136-145 MMOL/L Bedside Potassium (Blood Gas) 2.4 *L 3.4-4.5 MMOL/L Bedside Chloride (Blood Gas) 112 H 98-107 MMOL/L Bedside Glucose (Blood Gas) 101 H 65-95 MG/DL Bedside Ionized Calcium (Blood Gas) 0.81 L 1.15-1.33 MMOL/L Bedside Lactic Acid (Blood Gas) 0.96 H 0.36-0.75 MMOL/L Urine Color YELLOW YELLOW Urine Appearance CLEAR CLEAR Urine pH 6.0 5.0-8.0 Urine Specific [place] 1.010 1.001-1.031 Urine Protein 10 H NEGATIVE mg/dL Urine Glucose (UA) NEGATIVE NEGATIVE mg/dL Urine Ketones NEGATIVE NEGATIVE mg/dL Urine Occult Blood NEGATIVE NEGATIVE Urine Nitrate NEGATIVE NEGATIVE Urine Bilirubin NEGATIVE NEGATIVE mg/dL Urine Urobilinogen 2.0 H 0.2-1.0 mg/dL Urine Leukocyte Esterase 75 H NEGATIVE Carlo/uL Urine RBC 0-1 0-1 /HPF Urine WBC 2-5 H 0-1 /HPF Urine Squamous Epithelial Cells RARE 0-2 /HPF Urine Bacteria MOD None Seen /HPF Urine Hyaline Casts 2-5 H 0-1 /LPF /LPF Urine Osmolality 366 50-1200 mOsm/kg Urine Random Sodium 111 40-220 mmol/l Immature Granulocyte % (Auto) 0.6 0-1 % Neutrophils (%) (Auto) 92.3 H 40.0-77.0 % Lymphocytes (%) (Auto) 3.6 L 21.0-51.0 % Monocytes (%) (Auto) 2.1 L 3.0-13.0 % Eosinophils (%) (Auto) 1.3 0.0-8.0 % Basophils (%) (Auto) 0.1 0.0-5.0 % Neutrophils # (Auto) 6.6 1.8-7.7 K/uL Lymphocytes # (Auto) 0.3 L 1.0-4.8 K/uL Monocytes # (Auto) 0.2 0.1-1.0 K/uL Eosinophils # (Auto) 0.09 0.00-0.70 K/uL Basophils # (Auto) 0.01 0.00-0.20 K/uL Absolute Immature Granulocyte (auto 0.04 0-1 K/uL D-Dimer Quantitative (PE/DVT) 4641 *H 0-500 ng/mL Serum Osmolality 273 L 278-305 mOsm/kg B-Type Natriuretic Peptide 11 0-100 pg/mL Blood Gas CPAP 12 cm H2O Current Medications Medications (Trade) Dose Ordered Sig/Julita Route PRN Reason Start Time Stop Time Status Last Admin Dose Admin Acetaminophen (TYLenol 650MG ELIXIR) 650 mg Q6H PRN PO MILD PAIN (1-3) 06/04/24 08:30 07/04/24 08:29 06/10/24 20:07 650 MG Acetaminophen (TYLenol 650MG SUPPOSITORY) 650 mg Q6H PRN RC MILD PAIN (1-3) 05/23/24 20:30 06/22/24 20:29 Acetylcysteine (MUComyst 20% 4ML) 400mg = 2ml [id number] IH 06/02/24 00:00 06/05/24 15:52 DC 06/05/24 11:35 200 MG Albuterol (DUOneb) 1 udvial [id number] IH 05/24/24 00:00 06/10/24 10:28 DC 06/10/24 06:45 1 UDVIAL Alprazolam (XANax 0.5MG) 0.5 mg Q8H PRN PO ANXIETY 06/10/24 13:30 07/10/24 13:29 06/11/24 05:22 0.5 MG Artificial Tears (Artificial Tears) 1 DROP OR AD Q8H OU 06/11/24 14:30 07/11/24 14:29 Azithromycin 250 ml @ 250 mls/hr Q24H IVPB 05/24/24 17:00 05/24/24 14:41 DC Azithromycin 250 ml @ 250 mls/hr Q24H STAT IVPB 05/23/24 17:17 05/24/24 14:41 DC 05/23/24 17:45 250 MLS/HR Benzocaine (Cepacol Sore Throat Lozenge) 1 each Q4H PRN MM SORE THROAT 06/08/24 10:00 07/08/24 09:59 06/09/24 07:44 1 EACH Bisacodyl (DulcoLAX) 10 mg DAILY PRN RC CONSTIPATION 06/08/24 14:00 07/08/24 13:59 06/09/24 17:22 10 MG Cefepime HCl (MAXipime 2 gm vial) 2 gm Q12H IVPB 05/24/24 15:00 06/03/24 14:59 DC 06/03/24 03:18 2 GM Ceftriaxone Sodium (ROCEphine 1G INJ) 1 gm Q24H IVPB 05/24/24 17:30 05/24/24 14:41 DC Chlorhexidine Gluconate (Peridex) 15 ml Q6H MM 06/07/24 17:00 06/11/24 14:27 DC 06/10/24 12:22 15 ML Chlorhexidine Gluconate (Peridex) 15 ml Q8H MM 06/11/24 14:30 06/25/24 14:29 06/12/24 05:38 15 ML Cisatracurium Besylate (Nimbex) ONCE IVP 06/11/24 14:30 06/11/24 15:57 DC Cisatracurium Besylate 100 mg/ Sodium Chloride 100 ml @ 0 mls/hr PROTOCOL IV 06/11/24 23:30 07/11/24 23:29 Clotrimazole (Mycelex) 10 mg TID MM 06/04/24 21:00 07/04/24 20:59 06/10/24 13:58 10 MG Dexmedetomidine/ Sodium Chloride (PRECEdex 400MCG/ 100ML-NS) 400 mcg PROTOCOL IV 06/10/24 19:30 07/10/24 19:29 06/12/24 06:32 400 MCG Doxycycline Hyclate 250 ml @ 125 mls/hr Q12H IV 05/24/24 16:30 06/03/24 16:29 DC 06/03/24 04:23 125 MLS/HR Enoxaparin Sodium (Lovenox 80mg) 80 mg BID SQ 06/11/24 09:00 07/11/24 08:59 06/12/24 09:31 80 MG Enoxaparin Sodium (Lovenox) 40 mg Q24H SQ 05/23/24 21:00 06/11/24 04:36 DC 06/10/24 20:07 40 MG Famotidine (Pepcid 20mg Vial) 20 mg DAILY IV 05/24/24 09:00 06/23/24 08:59 06/12/24 09:30 20 MG Fentanyl/Sodium Chloride 250 ml @ 0.1 mls/hr PROTOCOL IV 06/12/24 00:00 06/17/24 00:00 Fluconazole (DiFLUCan 100 mg TAB) 200 mg DAILY PO 06/05/24 09:00 07/05/24 08:59 06/12/24 11:41 200 MG Fluconazole/ Sodium Chloride 100 ml @ 100 mls/hr DAILY IV 05/26/24 09:00 05/27/24 15:57 DC 05/27/24 09:07 100 MLS/HR Furosemide (LASix 20MG VIAL) 20 mg DAILY IV 05/31/24 09:00 06/07/24 13:18 DC 06/03/24 08:38 20 MG Furosemide (LASix 20MG VIAL) 20 mg Q12H IV 06/11/24 11:00 07/11/24 10:59 06/12/24 11:40 20 MG Ganciclovir Sodium 500 mg/ Sodium Chloride 100 ml @ 100 mls/hr Q12H IV 06/11/24 18:00 06/11/24 15:48 DC Guaifenesin/ Dextromethorphan (RobiTUSSin DM 200/20MG 10ML) 10 ml Q4H PRN PO COUGH 05/23/24 20:30 06/22/24 20:29 06/10/24 20:07 10 ML Hydrocortisone Sodium Succinate (Solu-corTEF 100MG) 100 mg Q8H IV 06/11/24 05:00 07/11/24 04:59 06/12/24 05:32 100 MG Hydroxyzine HCl (ATArax 25MG TAB) 25 mg TID PRN PO ITCHING 06/10/24 14:00 07/10/24 13:59 06/11/24 05:22 25 MG Ipratropium [place] (AtrovENT UD) 0.5 MG [id number] IH 06/10/24 14:00 07/10/24 13:59 06/12/24 11:03 0.5 MG Lactated Ringer's (Lactated Ringers 1000ml) 500 ml ONCE IV 06/02/24 20:00 06/02/24 19:54 DC Levofloxacin/ Dextrose 100 ml @ 100 mls/hr Q24H IV 05/24/24 15:00 05/24/24 16:16 DC Magnesium Sulfate 50 ml @ 0 mls/hr PROTOCOL PRN IV hypomagnesemia 05/28/24 08:00 06/27/24 07:59 06/11/24 05:26 50 MLS/HR Meropenem (Merrem) 1 gm Q8H IVPB 06/11/24 15:00 06/21/24 14:59 06/12/24 06:33 1 GM Meropenem 1 gm/ Sodium Chloride 100 ml @ 33.333 mls/ hr Q8H IV 06/11/24 14:30 06/11/24 14:28 DC Methylprednisolone Sodium Succinate (Solu-medROL 40MG) 20 mg Q12H IVP 06/05/24 07:00 06/09/24 09:13 DC 06/09/24 07:25 20 MG Methylprednisolone Sodium Succinate (Solu-medROL 40MG) 40 mg Q12H IVP 05/28/24 18:00 05/29/24 16:45 DC 05/29/24 05:32 40 MG Methylprednisolone Sodium Succinate (Solu-medROL 40MG) 40 mg Q6H IVP 05/29/24 16:30 06/04/24 16:44 DC 06/04/24 11:13 40 MG Methylprednisolone Sodium Succinate (Solu-medROL 40MG) 40 mg Q6H IVP 06/04/24 18:00 06/05/24 00:24 DC 06/04/24 23:48 40 MG Methylprednisolone Sodium Succinate (Solu-medROL 40MG) 40 mg Q8H IVP 05/24/24 01:00 05/25/24 21:51 DC 05/25/24 17:28 40 MG Methylprednisolone Sodium Succinate (Solu-medROL 40MG) 60 mg Q6H IVP 05/25/24 22:00 05/28/24 02:25 DC 05/27/24 23:55 60 MG Methylprednisolone Sodium Succinate (Solu-medROL 40MG) 60 mg Q6H IVP 05/28/24 06:00 05/28/24 08:27 DC 05/28/24 06:47 60 MG Methylprednisolone Sodium Succinate (Solu-medROL 40MG) 60 mg Q6H IVP 06/11/24 02:30 06/11/24 04:23 DC 06/11/24 02:46 60 MG Metronidazole/ Sodium Chloride (flaGYL) 500 mg Q8H IV 05/25/24 22:00 05/25/24 21:56 DC Midazolam HCl 50 ml @ 0 mls/hr AD PRN IV TITRATE 06/12/24 01:30 06/12/24 08:30 DC 06/12/24 02:30 10 MLS/HR Midazolam HCl 100 ml @ 0 mls/hr AD PRN IV TITRATE 06/12/24 09:00 07/12/24 01:29 Morphine Sulfate (morPHINE 4MG SYG) 4 mg Q4H PRN IM RESPIRATORY SYMPTOMS 06/11/24 03:30 06/18/24 03:29 06/11/24 03:27 4 MG Ondansetron HCl (zoFRAN 4MG INJ) 4 mg Q6H PRN IV NAUSEA/VOMITING 05/23/24 20:30 06/22/24 20:29 Pharmacy Profile Note (Pharmacy Communication) 1 each ONCE MISC 06/11/24 14:30 06/11/24 15:53 DC Pharmacy Profile Note (Pharmacy Communication) 1 each ONCE MISC 06/11/24 20:30 06/11/24 20:14 DC Phenylephrine HCl 10 mg/Sodium Chloride 251 ml @ 0 mls/hr AD PRN IV DIRECTED 06/11/24 03:00 07/11/24 02:59 06/12/24 07:30 12.5 MLS/HR Potassium Chloride 100 ml @ 100 mls/hr AD PRN IV POTASSIUM PROTOCOL 05/28/24 08:00 06/27/24 07:59 Potassium Chloride (K-Dur/Klor-Con 20meq) 20 meq AD PRN PO POTASSIUM PROTOCOL 05/28/24 08:00 06/27/24 07:59 Potassium Chloride (KCl 10% Elixir 20meq/15ml) 20 meq AD PRN PO POTASSIUM PROTOCOL 05/28/24 08:00 06/27/24 07:59 Prednisone (deltaSONE/ oraSONE 20MG TAB) 20 mg DAILY PO 06/10/24 09:00 07/10/24 08:59 06/12/24 11:41 20 MG Rocuronium [place] (ZemuRON) 10 mg Q1H PRN IV RESP DISTRESS/VENT DISYNCHRONY 06/11/24 20:30 06/11/24 23:29 DC 06/11/24 20:33 10 MG Sodium Chloride 500 ml @ 500 mls/hr Q1H IV 06/02/24 20:00 06/02/24 20:59 DC 06/02/24 21:34 500 MLS/HR Sodium Chloride 1,000 ml @ 75 mls/hr [id number] IV 06/07/24 13:30 06/10/24 17:02 DC 06/10/24 09:05 75 MLS/HR Sodium Chloride (Sodium Chloride) 1,000 mg BIDAC PO 06/07/24 16:30 06/09/24 07:28 DC 06/08/24 16:58 1,000 MG Sodium Chloride (Sodium Chloride) 1,000 mg BIDAC PO 06/09/24 07:30 07/09/24 07:29 06/10/24 15:35 1,000 MG Sodium Zirconium Cyclosilicate (Lokelma) 5 gm DAILY10 PO 06/08/24 10:30 06/10/24 10:29 DC 06/08/24 10:50 5 GM Trimethoprim/ Sulfamethoxazole (BactRIM DS) 1 tab BID PO 05/26/24 21:00 05/29/24 16:18 DC 05/29/24 08:07 1 TAB Trimethoprim/ Sulfamethoxazole (BactRIM DS) 2 tab TID PO 05/29/24 16:30 06/05/24 20:59 DC 06/05/24 14:55 2 TAB Trimethoprim/ Sulfamethoxazole (BactRIM DS) 2 tab TID PO 06/06/24 09:30 06/11/24 21:54 DC 06/10/24 13:58 2 TAB Trimethoprim/ Sulfamethoxazole 320 mg/Dextrose 500 ml @ 500 mls/hr Q8H IV 06/11/24 22:30 06/21/24 22:29 06/12/24 06:39 500 MLS/HR Valganciclovir (ValGANCIClovir HCL) 900 mg BID PO 06/11/24 21:00 07/11/24 20:59 DIAGNOSTICS / RADIOLOGY: [ ] ASSESSMENT: Acute hypoxemic respiratory failure, POA Bilateral lower lobe bacterial pneumonia + MRSA POA, +Azra Suspected PCP PNA based on CT findings vs viral/Atypical PNA . POA HIV positive (preliminary report, confirmatory test nonreactive) POA Normocytic anemia, not POA Neutrophilia, POA Hyperglycemia, POA Obesity BMI of 32.3 Former smoker Acute cystitis, POA Fatty liver, POA Moderate hypoalbuminemia POA Previous COVID-19 infection PLAN: Continue ICU Patient intubated, mechanical ventilation Continue blood pressure support, wean as tolerated Continue fentanyl, continue Nimbex. Continue to follow critical care input recommendation Continue the patient on Bactrim fluconazole. Continue the patient on prednisone p.o. Continue to follow infectious disease input and recommendation Continue to follow chest x-ray Continue to follow ABG Continue bronchodilators per respiratory therapist Replace electrolytes IV per protocol A.m. labs GI and DVT prophylaxis. Further orders to follow based on the above results Disposition: Remains admitted to the ICU, pending improvement clinical condition. Prognosis is poor guarded. Patient's son Son at bedside, updated. Total ICU time spent greater than 30 minutes. GAIL WALDRON MD Jun 12, 2024 13:47
[2024-06-12] MEDS: CISATRACURIUM BESYLATE 100 MG in 0.9%NACL 100ML 100 ML IV SCH (13:48)
--- NOTE | 2024-06-12 14:00 | NUR ---
PT OXY SATS GO DOWN TO 88 WHEN LYING FLAT, FIO INCREASED TO 70 . SAT REMAIN LOW X> 1 HR ADVISED MARGO OF SAME. FEEDING STARTED AT25 CC/HR AND PO MEDS GIVEN
--- NOTE | 2024-06-12 14:16 | HMCIMG ---
CHEST 1VW REASON: intubated COMPARISON: 06/11/2024 FINDINGS: There are extensive bilateral infiltrates, unchanged. Heart size is normal ET, NG and right IJ central line remain in good position. There is been interval development of some pneumomediastinum. The air dissects superiorly into the base of the neck, there is a small amount in the left axilla as well. There is no evidence of pneumothorax. IMPRESSION: 1. Interval development of pneumomediastinum as well as subcutaneous consistent emphysema in the neck. 2. Tubes and lines appear in good position, there are diffuse bilateral infiltrates which are otherwise unchanged.
--- NOTE | 2024-06-12 15:17 | PN ---
INFECTIOUS DISEASE PROGRESS NOTE Date of Service: Jun 12, 2024 SUBJECTIVE: This is a 49-year-old female patient who was admitted with chief complaint of shortness of breaths. A chest x-ray done on admission showed left lower lung pneumoniae. A CT chest showed bilateral pulmonary infiltrates but no evidence of PE. 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 Patient was seen and examined at bedside in the ICU room 208. Patient is intubated and sedated. Patient is being prone. NG tube has been place to start trickle feeding with Vital AF.. Patient needs to be started on Ganciclovir for possible cytomegalovirus and discontinue the valganciclovir p.o. due to it can not be crushed. Continues on Bactrim and fluconazole. We will continue to follow patient's care. PHYSICAL EXAM EYES: Anicteric. Pupils equal and reactive. HENT: No oral thrush seen, moist Oral mucosa. NG tube. Oropharyngeal lesions. NECK: Supple, no JVD or thyromegaly. RESPIRATORY: Intubated. CARDIOVASCULAR: S1, S2 regular. No murmur heard. ABDOMEN: Soft, non tender, bowel sounds present, no organomegaly. CENTRAL NERVOUS SYSTEM: Intubated. SKIN: No rashes, no swelling. LYMPHATICS: No peripheral lymphadenopathy. MUSCULOSKELETAL: No joint swelling, erythema or tenderness. EXTREMITIES: No cyanosis or clubbing. BACK: No deformity, no pressure ulcer. GENITOURINARY: No dysuria or hematuria. Souza catheter. Vital Sign (Last 12 Hours) 06/12/24 06/12/24 06/12/24 06/12/24 03:15 03:21 03:30 03:45 Temp 99.3 Pulse 111 105 105 Resp 18 18 18 B/P (MAP) 91/53 (66) 89/53 (65) 97/56 (70) Pulse Ox 100 100 100 06/12/24 06/12/24 06/12/24 06/12/24 04:00 04:00 04:00 04:09 Pulse 105 105 Resp 18 B/P (MAP) 96/56 (69) Pulse Ox 100 100 O2 Delivery Ventilator+ FiO2 100 100 100 06/12/24 06/12/24 06/12/24 06/12/24 04:15 04:30 04:45 04:46 Pulse 105 105 101 99 Resp 18 18 24 24 B/P (MAP) 96/57 (70) 95/55 (68) 89/53 (65) 86/51 (63) 158/71 (100) Pulse Ox 100 100 97 97 06/12/24 06/12/24 06/12/24 06/12/24 05:00 05:15 05:30 05:45 Pulse 97 90 87 87 Resp 24 24 24 24 B/P (MAP) 82/50 (61) 92/56 (68) 115/64 (81) 108/61 (77) Pulse Ox 96 97 98 99 06/12/24 06/12/24 06/12/24 06/12/24 05:46 06:00 06:46 06:46 Pulse 87 86 87 88 Resp 24 24 19 B/P (MAP) 109/61 (77) 105/58 (74) 74/44 (54) 190/72 (111) 144/53 (83) Pulse Ox 99 99 98 06/12/24 06/12/24 06/12/24 06/12/24 07:02 07:30 07:46 08:00 Temp 99.9 Pulse 105 82 81 Resp 24 24 B/P (MAP) 77/46 100/54 (69) 100/53 (69) 175/59 (97) Pulse Ox 99 99 FiO2 80 06/12/24 06/12/24 06/12/24 06/12/24 08:02 08:12 08:46 09:46 Temp 99.9 Pulse 80 79 Resp 24 24 B/P (MAP) 97/52 (67) 97/52 (67) 129/68 (88) 129/69 (89) Pulse Ox 99 99 FiO2 80 06/12/24 06/12/24 06/12/24 06/12/24 10:10 10:15 10:46 11:05 Pulse 101 79 79 Resp 24 19 B/P (MAP) 95/51 (66) 128/66 (86) Pulse Ox 97 FiO2 70 70 06/12/24 06/12/24 06/12/24 06/12/24 12:05 12:08 14:10 14:38 Temp 98.1 Pulse 79 79 B/P (MAP) 97/60 FiO2 70 60 Intake & Output (last 24hrs) 06/11/24 06/11/24 06/12/24 15:00 23:00 07:00 Intake Total 236.2 ml 890.2 ml 1457.9 ml Output Total 800 ml 1250 ml 3800 ml Balance -563.8 ml -359.8 ml -2342.1 ml LABS: Laboratory: Test 06/12/24 11:31 06/12/24 10:00 06/12/24 03:01 06/12/24 00:02 Range/Units Whole Blood Glucose 163 H 70-110 MG/DL Blood Gas Specimen Type Arterial Arterial Blood pH 7.386 7.350-7.450 Arterial Blood Partial Pressure CO2 47 H 32-45 mmHg Arterial Blood Partial Pressure O2 122.2 H 83.0-108.0 mmHg Arterial Blood HCO3 27.7 21.0-28.0 mmol/L Arterial Blood Oxygen Saturation 98.3 H 94.0-98.0 % Arterial Blood Base Excess 2.0 -2.0-3.0 mmol/L Blood Gas Temperature 37.0 35.5-37.0 CELSIUS Blood Gas Respiration Rate 24.0 min. Blood Gas Vent Mode AC ROOM AIR FiO2 80.0 % Blood Gas Tidal Volume 500 ml Blood Gas PEEP 10 cm H2O Blood Gas Specimen Comment ALINENIOBE White Blood Count 7.7 4.8-10.8 K/uL Red Blood Count 3.36 L 4.00-5.50 MIL/uL Hemoglobin 10.9 L 12.0-16.0 g/dL Hematocrit 31.8 L 36-48 % Mean Corpuscular Volume 94.6 79-99 fL Mean Corpuscular Hemoglobin 32.4 27.0-33.0 pg Mean Corpuscular Hemoglobin Concent 34.3 32.0-36.0 g/dL Red Cell Distribution Width 11.6 11.0-15.5 % Platelet Count 169 130-400 K/uL Mean Platelet Volume 9.5 7.5-10.5 fL Nucleated Red Blood Cells 0.0 0.0-0.19 % Sodium Level 131 L 136-145 mmol/L Potassium Level 4.0 3.5-5.1 mmol/L Chloride Level 95 L 101-111 mmol/L Carbon Dioxide Level 33 H 21-32 mmol/L Blood Urea Nitrogen 28 H 7-18 mg/dL Creatinine 0.5 0.5-1.0 mg/dL Glomerular Filtration Rate Calc 114 >90 mL/min Random Glucose 156 H 70-105 mg/dL Total Calcium 8.0 L 8.5-10.1 mg/dL Magnesium Level 2.40 1.80-2.40 mg/dL Total Bilirubin 0.2 0.2-1.0 mg/dL Aspartate Amino Transf (AST/SGOT) 34 10-37 U/L Alanine Aminotransferase (ALT/SGPT) 58 12-78 U/L Alkaline Phosphatase 149 H 50-136 U/L Total Protein 6.0 6.0-8.3 g/dL Albumin 1.7 L 3.5-5.0 g/dL Bedside Glucose Comment Notified Nurse Test 06/11/24 15:42 06/11/24 04:00 06/11/24 02:42 06/11/24 01:09 Range/Units Hemoglobin (Blood Gas) 7.9 L 12.0-16.0 g/dL Sodium (Blood Gas) 135 L 136-145 MMOL/L Bedside Potassium (Blood Gas) 2.4 *L 3.4-4.5 MMOL/L Bedside Chloride (Blood Gas) 112 H 98-107 MMOL/L Bedside Glucose (Blood Gas) 101 H 65-95 MG/DL Bedside Ionized Calcium (Blood Gas) 0.81 L 1.15-1.33 MMOL/L Bedside Lactic Acid (Blood Gas) 0.96 H 0.36-0.75 MMOL/L Urine Color YELLOW YELLOW Urine Appearance CLEAR CLEAR Urine pH 6.0 5.0-8.0 Urine Specific [place] 1.010 1.001-1.031 Urine Protein 10 H NEGATIVE mg/dL Urine Glucose (UA) NEGATIVE NEGATIVE mg/dL Urine Ketones NEGATIVE NEGATIVE mg/dL Urine Occult Blood NEGATIVE NEGATIVE Urine Nitrate NEGATIVE NEGATIVE Urine Bilirubin NEGATIVE NEGATIVE mg/dL Urine Urobilinogen 2.0 H 0.2-1.0 mg/dL Urine Leukocyte Esterase 75 H NEGATIVE Carlo/uL Urine RBC 0-1 0-1 /HPF Urine WBC 2-5 H 0-1 /HPF Urine Squamous Epithelial Cells RARE 0-2 /HPF Urine Bacteria MOD None Seen /HPF Urine Hyaline Casts 2-5 H 0-1 /LPF /LPF Urine Osmolality 366 50-1200 mOsm/kg Urine Random Sodium 111 40-220 mmol/l Immature Granulocyte % (Auto) 0.6 0-1 % Neutrophils (%) (Auto) 92.3 H 40.0-77.0 % Lymphocytes (%) (Auto) 3.6 L 21.0-51.0 % Monocytes (%) (Auto) 2.1 L 3.0-13.0 % Eosinophils (%) (Auto) 1.3 0.0-8.0 % Basophils (%) (Auto) 0.1 0.0-5.0 % Neutrophils # (Auto) 6.6 1.8-7.7 K/uL Lymphocytes # (Auto) 0.3 L 1.0-4.8 K/uL Monocytes # (Auto) 0.2 0.1-1.0 K/uL Eosinophils # (Auto) 0.09 0.00-0.70 K/uL Basophils # (Auto) 0.01 0.00-0.20 K/uL Absolute Immature Granulocyte (auto 0.04 0-1 K/uL D-Dimer Quantitative (PE/DVT) 4641 *H 0-500 ng/mL Serum Osmolality 273 L 278-305 mOsm/kg B-Type Natriuretic Peptide 11 0-100 pg/mL Blood Gas CPAP 12 cm H2O ASSESSMENT: Acute hypoxic respiratory failure, s/p intubated on 06/11/2024. Pneumocystis carinii pneumonia. Infection with methicillin-resistant Staphylococcus aureus. Positive HIV test. Leukocytosis, resolved. Obesity. Oral candidiasis. Oropharyngeal lesions, possible cytomegalovirus. PLAN: Start patient on Ganciclovir Discontinue Valganciclovir p.o. due to it can not be crushed. Continue Bactrim . Continue fluconazole p.o. Obtain CMV PCR blood. Continue critical care support. Continue ventilatory support. Continue Mycelex. Continue steroids. Continue GI prophylaxis. Continue bronchodilators. Continue DVT prophylaxis. This case was reviewed and discussed with my supervising physician and the above assessment and plan was formulated and agreed upon. ATTESTATION BY PHYSICIAN I have seen and examined the patient. I reviewed the documentation, medical decision making, and treatment plan as noted by the mid-level provider above. I agree with the findings and plan of care. [place] MD, [facility] Jun 12, 2024 15:17
[2024-06-12] MEDS: PANTOPrazole 40 MG/VIAL IVP ONE (15:45)
[2024-06-12] MEDS ORDERED: doBUTamine 250MG/D5 250ML 250 ML IV SCH (16:30)
[2024-06-12] MEDS ORDERED: PHARMACY COMMUNICATION MISC SCH (17:00)
--- NOTE | 2024-06-12 17:36 | NUR ---
Nutrition f/u Reviewed labs, notes, and medications. Hyponatremia 131, elevated BUN 28, Cr WNL, hyperglycemia 163, hypocalcemia 8.0, vit. D 9.1, intubated, sedated, pressor, IV fluids per chart review. Vital AF 1.2 @ 25 ml/hr x 22 hrs + 200Q6H, NG tube in place, last BM 06/10/24, right medial ulcer, no edema per nursing. Inconsistent wts since admin. Continue trickle feeds of Vital AF 1.2 if Pt on pressors and CO2 elevated. Provide goal rate of Vital AF 1.2 @ 50 ml/hr x 22 hrs once Pt off pressors, CO2 WNL goal rate to provide 77% of kcal needs, 100% of protein needs, Monitor extubation. Recommendations: -Provide Vital AF 1.2 @ 50 ml/hr x 22 hrs + 150 Q4H Provides: 1320 kcals, 82 gm pro, 1492 ml per day -Monitor BM -If no BM >3 days consider stool softener -Monitor electrolytes -Replenish electrolytes per protocol -Monitor wts -Reweigh as able -Provide vit. D supplement per vit. D 9.1 -Provide MVI QD -Monitor TF tolerance + need for TF adjustment -Monitor goals of care RD to follow + available for consult per protocol Addendum: 06/12/24 at [address] Amended: Links added.
--- NOTE | 2024-06-12 17:45 | NUR ---
DR. PNAKAJ LEDEZMA.ADVSED HIM THAT PATIENT O2 SATS DROP PRECIPITOUSLY WHEN LYING FLATS. STATES GO UP ON PEEP AND FIO2., WOULD LIKE TO DO CTA TODAY IF AT ALL POSSIBLE. PT TRANSPORT NEEDS TO BE COORDINATED WITH RT. RT UNABLE TO ACCOMPANY. FEEDING OFF, HAD BEEN ON ONLY 2 HOURS
[2024-06-12] MEDS: FENTanyl 2500MCG+NS 250ML 250 ML IV SCH (17:49)
[2024-06-12] MEDS: BACTRIM 800MG/160MG 10ML VIAL 320 MG in DEXTROSE 5%-WATER 500 ML IV SCH (18:37)
--- NOTE | 2024-06-12 19:30 | NUR ---
REPORT GIVEN. PATIENT LAID FLAT , O2 SATS DROPPED AGAIN, TO 88% ON 70% FIO2 HEAD OF BED RAISED, C TA PENDING AT THIS TIME
[2024-06-12] MEDS: MIDAZOLAM 100MG-0.9% NS 100ML 100 ML IV PRN (19:49)
--- NOTE | 2024-06-12 20:28 | NUR ---
RE: PNEUMOMEDIASTIUM. DISCUSSED WITH MARGO, PLAN OF CARE ETC '' PLAN IS STILL TO PRONE FOR EIGHTEEN HOURS INCREASE 02 TO 100% OVERNIGHT MAKE SURE PLATEAUS PRESSURES ARE LESS THAN 30 WEAN PEEP, PLEASE TO 5 IF TOLERATES '' ADVISED JOE THE RN FOR EXAMINATION GRADER
--- NOTE | 2024-06-12 20:53 | NUR ---
CTA ON HOLD AT THIS TIME, PT UNSTABLE UNABLE TO BE FLAT FOR EXAM. NABISHOP WILL TRY TONIGHT W/ COORDINATION FROM RT.
[2024-06-12] MEDS: SODIUM CHLORIDE 1,000 MG TAB PO SCH (21:43)
[2024-06-12] MEDS: PANTOPrazole 40 MG/VIAL IVP SCH (21:43)
[2024-06-13] VITALS (118 sets, daily range): BP systolic 94–177; BP diastolic 61–226; PULSE 77–155; RESP 21–27; TEMP 98.5–99.2; O2SAT 90–99
--- NOTE | 2024-06-13 03:49 | NUR ---
per RN lexii pt unstable and prone
[2024-06-13 04:14] LABS: BASOPHILS # (AUTO) 0.01 K/uL (0.00-0.20); BASOPHILS % (AUTO) 0.2 % (0.0-5.0); IMMATURE GRANULOCYTE ABSOLUTE 0.02 K/uL (0-1); LYMPHOCYTES # (AUTO) 0.2 K/uL (1.0-4.8); LYMPHOCYTES % (AUTO) 3.8 % (21.0-51.0); MEAN CORPUSCULAR HEMOGLOBIN 33.1 pg (27.0-33.0); MEAN CORPUSCULAR HGB CONC 34.8 g/dL (32.0-36.0); MEAN CORPUSCULAR VOLUME 95.1 fL (79-99); MONOCYTES # (AUTO) 0.1 K/uL (0.1-1.0); MONOCYTES % (AUTO) 1.8 % (3.0-13.0); NEUTROPHILS # (AUTO) 5.6 K/uL (1.8-7.7); NEUTROPHILS % (AUTO) 93.9 % (40.0-77.0); PLATELET COUNT (AUTO) 163 K/uL (130-400); RED BLOOD CELL COUNT(AUTO) 2.84 MIL/uL (4.00-5.50); RED CELL DISTRIBUTION WIDTH 11.8 % (11.0-15.5)
[2024-06-13 04:25] LABS: ABG BASE EXCESS 3.3 mmol/L (-2.0-3.0); ABG HCO3 28.1 mmol/L (21.0-28.0); ABG OXYGEN SATURATION 94.1 % (94.0-98.0); ABG PCO2 44 mmHg (32-45); ABG PH 7.425 (7.350-7.450); CARBON MONOXIDE 0.3 % (0.5-1.5); HHb 5.9; PO2, ARTERIAL BG 76.6 mmHg (83.0-108.0); VENT MODE, BG AC (ROOM AIR)
[2024-06-13 04:39] LABS: ALBUMIN 1.5 g/dL (3.5-5.0); BILIRUBIN,TOTAL 0.1 mg/dL (0.2-1.0); CREATININE 0.4 mg/dL (0.5-1.0); TOTAL PROTEIN, SERUM 5.3 g/dL (6.0-8.3)
[2024-06-13] MEDS: phenylEPHRINE HCL 50 MG in 0.9% NACL 250ML 250 ML IV PRN (08:57)
[2024-06-13] MEDS: [UNRECOGNIZED DRUG - OTHER] IV SCH (08:58)
[2024-06-13] MEDS: GANCICLOVIR SODIUM IV SCH (08:58)
--- NOTE | 2024-06-13 09:27 | PN ---
[facility] PROGRESS NOTE Date Patient Seen: Jun 13, 2024 Time of Visit: 09:27 Supervising Physician: Jewel Evans MD Primary Care Physician: Stu Foss MD Outpatient Specialists: Inpatient Consults: Pulmonology PROBLEM LIST: Severe ARDS Acute hypoxemic respiratory failure s/p intubation 06/11/24 requiring proning Bilateral lower lobe bacterial pneumonia + MRSA POA, +Azra Confirmed PCP PNA per Ag (serology), POA Pneumomediastinum on x-ray 06/12/24 Concern for disseminated CMV Elevated DDIMER r/o PE & DVT New HIV/AIDS positive POA Hyponatremia and hyperkalemia, suspected Bactrim induced Normocytic anemia, not POA Neutrophilia, POA Hyperglycemia, POA Obesity BMI of 32.3 Former smoker Fatty liver, POA Moderate hypoalbuminemia POA Previous COVID-19 infection INTERVAL HISTORY: 06/10/2024: At the time of my evaluation, the patient was lying in bed. Per the patient report, she had a anxiety episode overnight. He is awake alert and oriented x4. She remains intermittently febrile most recent 100.8. On a monitor, the patient is normotensive without any pressor support. She remains tachycardic up in the 120s. The patient remains on oxygenation with high-flow nasal cannula 30 L/70% FiO2 and denies any hypoxemic event. She continues to feed orally, no complaint of nausea vomiting or diarrhea. The patient reports voiding without difficulty. Intake and output shows a intake of 2006 units 60.0, output of 2500 and a positive balance of 160.0. Laboratory data review of significance showed no changes of concern on CBC, chemistry panel of significance showed a sodium count of 128, potassium of 3.8, chloride of 93 and the remaining parameters were unremarkable. Blood cultures showing no growth. A chest CT was ordered and is pending. No other complaint. 06/11/24: 02:07 RN called. Reports patient is tachypneic, RR 30s-40s bpm. On BiPAP at 100% FiO2,12/6, rate 16 bpm. Patient was changed to AVAPS and ABGs were redrawn, pH 7.413, PO2 69.4, pCO2 42.4. The patient is on Precedex but she had to go down on Precedex due to hypotension. RN reports that patient is not sedated with Precedex due to having to slow down hypotension. Added Mario- Synephrine IV drip. 03:38 RN called that patient remains tachypneic. Lasix 40 mg IV x1 dose ordered, Solu-Medrol IV 60 IV q.6, BNP, and D-dimer were ordered. I went to assess the patient at bedside. I explained to the patient and significant other at bedside the ABGs results. I informed that the patient is tachypneic, RR 44 bpm, tachycardic 123, and ABGs showed hypoxia at 69.4. I spent a lengthy amount of time educating the patient on her guarded/critical condition. They verbalized understanding. Both of them report that they are not ready for intubation, but we will allow intubation if does not improve. I showed them of the retractions that the patient has and the abdominal breathing. They verbalized understanding and continued to request to hold on intubation for now. Per chart review CTA on 05/24/2024 was negative for a PE. Bilateral pulmonary infiltrates with segmental atelectasis. Two days BNP was WNL. D-dimer was 4641. 06/11/24 AM rounds: Patient's oxygenation status not improving on BiPAP with the FiO2 100%. Saturating 88-89% patient appears tachypneic pale and tachycardic. Spoke to patient and informed of need for intubation. Patient requested to wait for her son to be at bedside. once son was at bedside informed them of the need for intubation and risks and benefits. In order to alleviate some of the pt's anxiety and fear of intubation we has son at her side until sedated prior to intubation in which then son stepped out and patient was intubated per Dr. Lundberg. Still on the ventilator patient is saturating 89%, ventilator settings adjusted to assist control volume control tidal volume 500 respiratory rate of 18 FiO2 of 100% and PEEP of 10, plateau pressure 23. Decision was made for proning. Added Nimbex as a paralyzing agent per protocol drip. Informed pt's son on need for a central line due to patient requiring multiple drips. Sodium in agreement. Otherwise on CBC similar to yesterday, chemistry kidneys are doing well with a creatinine of 0.6 with a GFR of 109 sodium has improved to 130 potassium 3.8 chloride of 94 BUN of 30. OG tube to be placed and start tube feedings. Pt with multiple mouth sores concern for herpes simplex. Valg anciclovir 900 mg p.o. b.i.d. started per pharmacy to dose. 06/12/24-patient assessed in room two eight in the ICU, patient is sedated and paralyzed with Nimbex drip, fentanyl and Versed. She is hemodynamically stable. On mechanical ventilation on assist-control volume control tidal volume 500 respiratory rate of 24 FiO2 of 60% with a PEEP of 10 saturating 99%. Pt was prone that 20:00 yesterday and is due for supine position at noon today. Urine output 3.9 L with a-1.4 L balance. CBC unremarkable. Chemistries sodium is 131 chloride 95 carbon dioxide 33 BUN 28 creatinine 0.5 and GFR of 114, glucose 156 mg/dL. Total calcium 8.0 albumin of 1.7. With a calcium correction for hypoalbuminemia of 9.8 mg/dL. ABG for this morning with a pH of 7.36 pCO2 of 47 , PO2 of 122 on FiO2 of 80% and bicarb of 27.7. Chest x-ray shows interval development of pneumomediastinum as well as subcutane ous consistent with a emphysema in the neck. Tubes and all lines appear in good position there are diffuse bilateral infiltrates which otherwise unchanged. 06/13/24- patient is in the ICU critically ill w/ grim prognosis. She is currently prone saturating in the low 90s and sinus tachycardic 116 BPM. Blood pressure is 115/82 with respiratory rate of 24 on the vent currently sedated and paralyzed with fentanyl, Versed drip and Nimbex gtt per protocol. Urine output was 4.7 L in the last 24 hours with a balance of -3.6 L.On laboratory sodium is 132 potassium is 4.0 chloride of 98 carbon dioxide of 31, BUN 27 creatinine of 0.4 with a GFR of 121 improved from yesterday glucose 141 mg/dL albumin 1.5. Chest x-ray four this morning with a increased bilateral pulmonary infiltrates, increasing pneumomediastinum, tubes and lines are in good position. There is no pneumothorax. Latest ABGs with a pH of 7.34 with a pCO2 of 55 PO2 of 72.3 bicarb of 29.5 and ABGs saturation of 93.5. PF ratio 72. Patient remains prone to optimize oxygenation. Plateu pressures have increased to above 30. Ventilator changes as follows: Tidal volume of 425 respiratory rate of 26 FiO2 100% and PEEP of 7 with plateau pressure goals of less than 30. I have spoken to the son at the bedside and updated him on current clinical findings. I discussed code status with patient's son. For now patient remains full code. REVIEW OF SYSTEMS: Unable to obtain ROS from patient due to patient's medical condition. PHYSICAL EXAM: GENERAL: Sedated and intubated, currently prone HEENT: Sclera non icteric, dry scabs and sores to mucosa NECK: short neck no JVD, trachea midline LUNGS: diminished to bilateral breath sounds no wheezing. HEART: Regular rate and rhythm. Normal S1 and S2, without murmurs ABD: Abdomen soft, nontender. Bowel sounds present EXT: No clubbing cyanosis or edema NEURO: Intubated sedated and paralyzed. Vital Signs (last 8hr) Date Time Temp Pulse Resp B/P (MAP) Pulse Ox O2 Delivery O2 Flow Rate FiO2 06/13/24 06:46 97 100 06/13/24 06:45 109 21 06/13/24 06:30 112 24 110/79 (89) 90 06/13/24 06:15 112 24 109/77 (88) 90 06/13/24 06:06 100 06/13/24 06:00 107 24 111/77 (88) 92 06/13/24 05:46 110 24 106/79 (88) 92 141/70 (93) 06/13/24 05:45 110 24 105/73 (84) 92 06/13/24 05:30 106 24 123/72 (89) 94 06/13/24 05:15 108 24 115/68 (84) 93 06/13/24 05:00 107 24 116/69 (85) 93 06/13/24 04:46 106 24 113/72 (86) 93 140/80 (100) 06/13/24 04:45 107 24 114/68 (83) 93 06/13/24 04:30 108 24 122/72 (89) 93 06/13/24 04:15 108 24 111/66 (81) 93 06/13/24 04:00 101 24 114/97 (103) 94 06/13/24 04:00 92 Ventilator+ 100 06/13/24 03:46 101 24 /226 94 136/81 (99) 06/13/24 03:45 100 24 113/73 (86) 94 06/13/24 03:30 100 24 118/64 (82) 94 06/13/24 03:22 97 100 06/13/24 03:15 99.1 98 24 120/64 (82) 94 06/13/24 02:45 97 24 122/66 (84) 94 06/13/24 02:30 96 24 124/66 (85) 94 06/13/24 02:15 95 24 117/62 (80) 94 06/13/24 02:00 90 24 118/64 (82) 94 06/13/24 01:46 86 24 112/66 (81) 93 127/74 (91) 06/13/24 01:45 86 24 118/64 (82) 93 06/13/24 01:30 82 24 114/63 (80) 93 LABS: Hematology Labs: Test 06/13/24 04:01 Range/Units White Blood Count 6.0 4.8-10.8 K/uL Red Blood Count 2.84 L 4.00-5.50 MIL/uL Hemoglobin 9.4 L 12.0-16.0 g/dL Hematocrit 27.0 L 36-48 % Mean Corpuscular Volume 95.1 79-99 fL Mean Corpuscular Hemoglobin 33.1 H 27.0-33.0 pg Mean Corpuscular Hemoglobin Concent 34.8 32.0-36.0 g/dL Red Cell Distribution Width 11.8 11.0-15.5 % Platelet Count 163 130-400 K/uL Mean Platelet Volume 10.1 7.5-10.5 fL Immature Granulocyte % (Auto) 0.3 0-1 % Neutrophils (%) (Auto) 93.9 H 40.0-77.0 % Lymphocytes (%) (Auto) 3.8 L 21.0-51.0 % Monocytes (%) (Auto) 1.8 L 3.0-13.0 % Eosinophils (%) (Auto) 0.0 0.0-8.0 % Basophils (%) (Auto) 0.2 0.0-5.0 % Neutrophils # (Auto) 5.6 1.8-7.7 K/uL Lymphocytes # (Auto) 0.2 L 1.0-4.8 K/uL Monocytes # (Auto) 0.1 0.1-1.0 K/uL Eosinophils # (Auto) 0.00 0.00-0.70 K/uL Basophils # (Auto) 0.01 0.00-0.20 K/uL Absolute Immature Granulocyte (auto 0.02 0-1 K/uL Nucleated Red Blood Cells 0.0 0.0-0.19 % Chemistry Labs: Test 06/13/24 04:01 06/12/24 11:31 06/12/24 03:01 06/12/24 00:02 Range/Units Sodium Level 132 L 136-145 mmol/L Potassium Level 4.0 3.5-5.1 mmol/L Chloride Level 98 L 101-111 mmol/L Carbon Dioxide Level 31 21-32 mmol/L Blood Urea Nitrogen 27 H 7-18 mg/dL Creatinine 0.4 L 0.5-1.0 mg/dL Glomerular Filtration Rate Calc 121 >90 mL/min Random Glucose 141 H 70-105 mg/dL Total Calcium 7.8 L 8.5-10.1 mg/dL Total Bilirubin 0.1 L 0.2-1.0 mg/dL Aspartate Amino Transf (AST/SGOT) 27 10-37 U/L Alanine Aminotransferase (ALT/SGPT) 39 12-78 U/L Alkaline Phosphatase 112 50-136 U/L Total Protein 5.3 L 6.0-8.3 g/dL Albumin 1.5 L 3.5-5.0 g/dL Whole Blood Glucose 163 H 70-110 MG/DL Magnesium Level 2.40 1.80-2.40 mg/dL Bedside Glucose Comment Notified Nurse DIAGNOSTICS / RADIOLOGY RESULTS: [ ] IMAGING REPORT Signed PATIENT: RIO OSORIO MR#: [id number] : 1975 SEX: F AGE: 49 LOCATION: [facility] ORDER 2300 STATUS: ADM IN REPORT#: [id number] SERVICE [id number] REASON: intubated ORDERING PHYSICIAN: MARGO LOGAN PROCEDURE: CXR1VW - CHEST 1VW CHEST 1VW REASON: intubated COMPARISON: 06/12/2024 FINDINGS: There are extensive bilateral infiltrates which appear increased since prior exam. There is also increasing is pneumomediastinum. Tubes and lines appear in good position. There is no pneumothorax. IMPRESSION: 1. Increasing bilateral infiltrates. 2. Increasing pneumomediastinum. 3. Tubes and lines remain in good position. DICTATED BY: LALO IBANEZ MD DATE: 06/13/24 105 ELECTRONICALLY SIGNED BY: LALO IBANEZ MD DATE: 06/13/24 105 PLAN Continue nimbex and prone for 16hrs a day For 48 more hours. manage vent per abg maintain plateu pressure of < 30 Wean PEEP as tolerated 1st then FiO2 due to pneumomediastinum. Continue steroids Continue Atrovent q.4 hours. Start Mario-Synephrine IV drip to maintain map above 65 Start Lovenox1 milligram/kilogram b.i.d.. Until rule out of PE via CTA Added venous Doppler and chest x-ray PE protocol. Abx Per ID recommends Valgancilcovir add meropenem Trend Lactic acid. POA is son NEURO: Minimize central acting medications as possible. Fall Precautions. Well lighted room through the day and minimize interruptions through the night to prevent acute delirium. PULMONARY: Supplemental 02 as needed Titrate Fio2 to keep Spo2 > or = 90% DuoNebs and CPT as needed IS hourly while awake for pulmonary hygiene Out of bed to chair as tolerated CARDIOVASCULAR: Follow hemodynamics. Titrate vasopressor to keep MAP >65 or systolic blood pressure >95mmHg telemetry LINES: CVC RT IJ Arterial line ET tube' FC OG tube GI & NUTRITION: Continue nutritional support Aspirations precautions Prokinetic agents and laxatives as needed KIDNEYS & ELECTROLYTES: Strict monitoring of intake and output Daily weights Avoid nephrotoxic agents Monitor electrolytes and replace as needed Goal urine output of 30mL/hr or 0.5mL/kg/hr ENDOCRINE: Maintain blood glucose between 100-180 at all times. Insulin sliding scale for blood glucose management INFECTIOUS DISEASE: Trend temperature. Clarke-culture if febrile. Sputum culture from 05/23/24 positive for MRSA, Betty albicans Pneumocystis carinii antigen positive Panculture: 06/02/24 Blood cultures Urine cultures Respiratory culture Antibiotics: Bactrim DS Fluconazole Mycelex Valganciclovir meropenem HEMATOLOGY & COAGULATION: Monitor H&H. Keep Hgb > 7 Transfuse 1 unit of PRBC for Hgb < 7 Transfuse 1 pack of platelets of platelets < 20, 000 Watch for any signs and symptoms of bleeding SKIN: Pressure ulcer prevention per facility protocol Rehab: PT/OT Prophylaxis: GI: Pepcid DVT: Lovenox Code Status: Full Resuscitation Disposition: ICU Other: Critical care time This patient required multiple bedside visits to manage the patient, review blood gases, coordinate with respiratory, nurses, talk to Infectious Disease, review radiology exams, talk to the family members and discuss advanced directives. I personally spent 60 minutes of critical care time in treatment of this patient. This includes patient management, time at bedside, time reviewing tests, labs, appropriate images and studies, documentation, and patient care coordination. This time excludes separately billable procedures. MARGO LOGAN [facility] Jun 13, 2024 09:27
--- NOTE | 2024-06-13 10:57 | HMCIMG ---
CHEST 1VW REASON: intubated COMPARISON: 06/12/2024 FINDINGS: There are extensive bilateral infiltrates which appear increased since prior exam. There is also increasing is pneumomediastinum. Tubes and lines appear in good position. There is no pneumothorax. IMPRESSION: 1. Increasing bilateral infiltrates. 2. Increasing pneumomediastinum. 3. Tubes and lines remain in good position.
[2024-06-13 10:58] LABS: ABG BASE EXCESS 2.4 mmol/L (-2.0-3.0); ABG HCO3 29.5 mmol/L (21.0-28.0); ABG OXYGEN SATURATION 93.5 % (94.0-98.0); ABG PCO2 55 mmHg (32-45); ABG PH 7.346 (7.350-7.450); PO2, ARTERIAL BG 72.3 mmHg (83.0-108.0); VENT MODE, BG AC (ROOM AIR)
[2024-06-13] MEDS: furoSEMIDE 20MG VIAL IV SCH (11:13)
[2024-06-13 12:10] LABS: HERPES SIMPLEX VIRUS-1 BY PCR Positive (Negative); HERPES SIMPLEX VIRUS-2 BY PCR Positive (Negative)
--- NOTE | 2024-06-13 12:59 | PN ---
[facility] PROGRESS NOTE Date of Service: Jun 13, 2024 Time of Service: 12:56 SUBJECTIVE: [ ] Ms. Abdulalhi is a 49-year-old female that was seen and examined today on 05/23/2024. Patient is a good historian and personal health. Patient's son Dagoberto Salcido is at bedside. Patient states that she came to the emergency department with a chief complaint of shortness of breath. Onset was two weeks ago. Location is to lungs. Duration is on and off. Character is described as "easily running out of air." Initially shortness and breath was only aggravated with climbing one or two flights of stairs but symptoms have progressively worsened and patient becomes short of breath even standing or walking short distances. There was no alleviating factors however previously symptoms were being controlled with daily morning albuterol nebulizer treatments. Patient denies any associated chest pain or dizziness. Patient reports an episode of COVID in December 2023. emergency department CBC unremarkable, chemistry unremarkable, urinalysis unremarkable, influenza screen negative, COVID negative, blood gas shows PO2 less than 45. Chest x-ray shows left lower lung pneumonia and minimal right lung base atelectasis. Upon arrival to the emergency department patient was placed on a BiPAP due to respiratory distress. 05/24/2024-patient was seen and examined at the bedside, still on BiPAP. Patient is able to speak, and says she feels much better than before. Patient says after COVID in December she developed severe bronchitis and she was on Solu-Medrol and albuterol, which did not help her much and later she had high fevers and shortness of breath which is when she came to the ED.Vitals afebrile pulse 76, RR 38 tachypneic , blood pressure 115/68, pulse oxygen 99 on BiPAP flow of 60. On ABG pH 7.47, pCO2 29, PO2 109.4, oxygen saturation 98.3. [id number] potassium 4.1 BUN15 creatinine 0.5 GFR 114. We will closely monitor the patient. Furnace Filler consult noted waiting on the recommendation 05/25/24 patient was seen and examined and case discussed with RN and family by the bedside. She was breathing better today. She has been on BiPAP all night but now he was on 100% non-rebreather with further efforts to continue to wean the oxygen requirements down. 05/27/24 patient is seen and examined at bedside, acute events overnight, case discussed with the RN, BP 131/64, afebrile, saturating 96-97% via Ventimask, FiO2 40%. The patient admits cough productive of clear phlegm. Serology tests reviewed, HIV preliminary positive, discussed with the patient. 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 We will continue the patient on IV antibiotics, continue fluconazole, continue to follow Pulmonary and ID input and recommendations. After provided in the preliminary results of HIV test, she denies any suicidal or homicidal ideations. 05/28 patient has been seen and examined, no acute events overnight, case discussed with the RN, during my visit patient is sitting comfortably in the chair, hemodynamically stable, off Ventimask, currently on 10 L via nasal cannula, saturating 98%, tolerated BiPAP overnight. she feels better, less shortness a breath, still admits cough productive of yellow phlegm. No chest pain. Getting IV antibiotics during my visit. HIV P24 antigen, nonreactive. We will continue to follow Pulmonary and Infectious Disease input and recommendations. 05/29 patient has been seen and examined, no acute events overnight, case discussed with the RN, during my visit patient is sitting comfortably in the chair, hemodynamically stable, remains on 10 L via nasal cannula, saturating 98% , still admits cough productive of yellow phlegm. No chest pain. Getting IV antibiotics during my visit. HIV P24 antigen, nonreactive. Pending CD4 cell count. We will continue to follow Pulmonary and Infectious Disease input and recommendations. 05/30 the patient has been seen and examined, no acute events overnight, BP 114/66, during my visit she is on Ventimask, saturating 95%, FiO2 60%. Without the Ventimask the patient desaturates to the low 70s. Patient tolerating BiPAP during the night. Still admits cough productive of thick yellow phlegm, no chest pain. Results of CD4 cell count reviewed, discussed with the patient. We will continue broad-spectrum IV antibiotics. Continue to follow Pulmonary and Infectious Disease input and recommendations. 05/31 the patient has been seen and examined, upgraded to the ICU, during my visit she is sitting in the chair, BP 113/72, heart rate of 109, she is on Oxymizer, 30 L, FiO2 100%. She is alert oriented x3, still admits cough productive of thick yellow phlegm, no chest pain. Hemoglobin 12.9, hematocrit 36.6, WBC 14.6. ABG with pH 7.4, pCO2 40, PO2. Chest x-ray shows left lower l obe infiltrate consistent with pneumonia. She is getting IV antibiotics during my visit. Patient will remain in the ICU, continue to follow critical Care as well as infectious disease input and recommendations. 06/01 patient is seen and examined, sitting comfortable in chair, awake, following commands, remains on high-flow oxygen, FiO2 70%, 30 L, BP 117/67, heart rate of 78, respiratory rate of 30-36, saturating 100%, CBC with a hemoglobin 13.6, hematocrit 38.9, WBC 12.4. Platelet count of 341. Chest x-ray showing persistent left lung infiltrate, cardiac size and mediastinum unremarkable. The bony structures are within the normal limits. Patient getting IV antibiotics during my visit. Patient to continue with the high-dose steroids. Serology test positive for Pneumocystis sandra. Patient on Bactrim two tablets p.o. t.i.d.. Continue also doxycycline and cefepime IV. Continue to follow infectious disease input and recommendation. Continue to follow Pulmonary input and recommendations. 06/02 patient is seen and examined at bedside, currently in prone position, alert oriented x3. CPT started last night, she has started having more loose phlegm expectorated. BP 114/74, tachycardic 114, saturating 95%, high-flow nasal cannula, 30 L, FiO2 80%. CBC with a hemoglobin 16.9, hemoglobin 14 0, hematocrit 39.8, platelet count 347. Chest x-ray shows persistent left lung infiltrate. 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 Serology test for toxoplasma currently pending. Patient on IV antibiotics as well as high-dose steroids. Continue to follow infectious Disease and Pulmonary input and recommendations. 06/03 patient seen at bedside, no acute events overnight. She continues with respiratory distress, with increasing oxygen requirements. Critical Care has discussed a possible need for intubation if she does not improve. She has been started on steroids due to underlying PCP pneumonia. WBC improved from 16.9 down to 13.5, sodium stable at 132, same as yesterday, lactic acid downtrending from 4.1 down to 3.2, remainder of her labs are relatively unremarkable. 06/04 patient seen at bedside, no acute events overnight. She remains on high- flow nasal cannula, mildly tachycardic. WBC elevated at 13.3, sodium decreased from 132 down to 129, remainder of her labs are relatively unremarkable. Continue to wean supplemental oxygen. Further care per critical Care 06/05 patient seen at bedside, no acute events overnight. She remains on high- flow nasal cannula with BiPAP overnight and is still tachycardic. Heart rate ranging from 104 up to 113, WBC improved from 13.3 down to 11.1, sodium decreased from 120 down to 126, remainder of her labs are relatively unremarkable. We will continue to wean oxygen as able. 06/06 Patient seen at bedside, no acute events overnight. She remains on high- flow nasal cannula with BiPAP overnight and is still tachycardic. Heart rate ranging from 104 up to 122, WBC improved from 11.1 down to 10.6, sodium improved from 126 up to 129, remainder of her labs are relatively unremarkable. We will continue to wean oxygen as able. 06/07 patient seen at bedside, no acute events overnight. She is still on high- flow nasal cannula, RT advised to wean oxygen, currently saturating 100% on 30L. She is tachycardic, sodium decreased from 129 down to 123, likely secondary to Bactrim. Patient is asymptomatic, will continue with bactrim, if sodium continues to decrease consider a holiday from bactrim. 06/08 patient seen at bedside, no acute events overnight. She is still on high- flow nasal cannula, RT advised to wean oxygen, currently saturating 100% on 30L. She is tachycardic, sodium stable at 123, same as yesterday. Pending improvement in respiratory status 06/09 patient seen at bedside, he remains on high-flow nasal cannula, we will continue to wean as able, appreciate pulmonology assistance, tachycardic with heart rate ranging from 123 up to 130. She is still having low-grade fevers at 100.8. Sodium increased from 123 up to 130, remainder of her labs are relatively unremarkable. 06/10 patient is seen and examined at bedside, remains on high-flow oxygen, she feels mildly anxious, no chest pain. Still with a cough productive of white phlegm. Still tachycardic, heart rate 117-122. Patient is still spiking low- grade fever. Hemoglobin 10.9, hematocrit 30.5. Sodium remained low at 128, BUN and creatinine of 16 and 0.4. 06/11 patient is seen and examined at bedside, patient now on AVAPS, FiO2 100%, patient became restless last night, she had to be started on Precedex. During my visit she remains alert oriented x3, no chest pain. BP 120/48, she is saturating 100%. Hemoglobin 10 point, hematocrit 31.3. ABG shows persistent hypoxemia, with a PO2 of 69.4. Chest x-ray shows extensive infiltrates on the left which is stable to somewhat increased, there has been interval development of perihilar infiltrate on the right. Normal bilateral lower extremity venous Doppler ultrasound. Continue the patient on prednisone 20 mg p.o. daily, continue Bactrim two tablets p.o. t.i.d. as well as fluconazole 100 mg p.o. daily. 06/12 patient is seen and examined at bedside, intubated, on mechanical ventilation, per discussion with the RN, patient was in respiratory distress yesterday, decision made to intubate the patient. During my visit the patient is midazolam, fentanyl, patient paralyzed, also on Nimbex. She is in a prone position. On pressor support with phenylephrine. Also on Precedex. She is also on hydrocortisone 100 mg IV q.8 hours. Son at bedside, updated. ABG shows pH 7.38, pCO2 47, PO2 122, bicarb of 27.7. 06/13 patient is seen and examined at bedside, remains intubated, on mechanical ventilation, remains on midazolam, fentanyl, patient paralyzed, also on Nimbex. She is in a prone position. On BP pressor support with phenylephrine. Patient is peep of seven. ABG pH 7.34, PO2 72.3. Chest x-ray reviewed, increasing bilateral infiltrates, increasing pneumomediastinum. REVIEW OF SYSTEMS 12 point review of systems negative unless noted in HPI PHYSICAL EXAM GENERAL APPEARANCE: Patient intubated, on mechanical ventilation. NEUROLOGICAL: Cranial nerves II-XII grossly intact. Motor is 5/5 in bilateral upper and lower extremities proximal to distal. No sensory deficits. HEENT: Face is symmetric. Pupils are equal and reactive. Extraocular movements are intact. NECK: Supple. No JVD. No thyromegaly. No submental, submandibular, pre- /postauricular, occipital or supraclavicular lymphadenopathy. CHEST: Normal chest expansion. No Telemetry. LUNGS: Bilateral rhonchi, no expiratory wheezing CARDIOVASCULAR: Regular. S1 and S2 normal. No appreciable rubs, murmurs or gallops. ABDOMEN: Soft, nontender, and nondistended. There is no rebound, voluntary guarding, or rigidity. : Deferred. No Souza. EXTREMITIES: Non-edematous and not cyanotic. No clubbing. Good capillary refill. SKIN: No skin breakdown. Vital Signs (last 8hr) Date Time Temp Pulse Resp B/P (MAP) Pulse Ox O2 Delivery O2 Flow Rate FiO2 06/13/24 12:00 92 Ventilator+ 100 06/13/24 11:30 114 100 06/13/24 10:50 116 23 06/13/24 09:39 93 100 06/13/24 09:00 112 24 110/79 (89) 90 06/13/24 08:00 91 Ventilator+ 100 06/13/24 08:00 112 24 110/79 (89) 90 06/13/24 07:00 99.0 112 24 110/79 (89) 90 100 06/13/24 06:46 97 100 06/13/24 06:45 109 21 06/13/24 06:30 112 24 110/79 (89) 90 06/13/24 06:15 112 24 109/77 (88) 90 06/13/24 06:06 100 06/13/24 06:00 107 24 111/77 (88) 92 06/13/24 05:46 110 24 106/79 (88) 92 141/70 (93) 06/13/24 05:45 110 24 105/73 (84) 92 06/13/24 05:30 106 24 123/72 (89) 94 06/13/24 05:15 108 24 115/68 (84) 93 06/13/24 05:00 107 24 116/69 (85) 93 LABS: Laboratory: Test 06/13/24 10:56 06/13/24 04:24 06/13/24 04:01 06/12/24 11:31 Range/Units Blood Gas Specimen Type Arterial Arterial Blood pH 7.346 L 7.350-7.450 Arterial Blood Partial Pressure CO2 55 H 32-45 mmHg Arterial Blood Partial Pressure O2 72.3 L 83.0-108.0 mmHg Arterial Blood HCO3 29.5 H 21.0-28.0 mmol/L Arterial Blood Oxygen Saturation 93.5 L 94.0-98.0 % Arterial Blood Base Excess 2.4 -2.0-3.0 mmol/L Blood Gas Temperature 37.0 35.5-37.0 CELSIUS Blood Gas Respiration Rate 24.0 min. Blood Gas Vent Mode AC ROOM AIR FiO2 100.0 % Blood Gas Tidal Volume 500 ml Blood Gas PEEP 7 cm H2O Blood Gas Specimen Comment [place] Hemoglobin (Blood Gas) 10.3 L 12.0-16.0 g/dL Sodium (Blood Gas) 130 L 136-145 MMOL/L Bedside Potassium (Blood Gas) 3.9 3.4-4.5 MMOL/L Bedside Chloride (Blood Gas) 99 98-107 MMOL/L Bedside Glucose (Blood Gas) 138 H 65-95 MG/DL Bedside Ionized Calcium (Blood Gas) 1.10 L 1.15-1.33 MMOL/L Bedside Lactic Acid (Blood Gas) 1.28 H 0.36-0.75 MMOL/L White Blood Count 6.0 4.8-10.8 K/uL Red Blood Count 2.84 L 4.00-5.50 MIL/uL Hemoglobin 9.4 L 12.0-16.0 g/dL Hematocrit 27.0 L 36-48 % Mean Corpuscular Volume 95.1 79-99 fL Mean Corpuscular Hemoglobin 33.1 H 27.0-33.0 pg Mean Corpuscular Hemoglobin Concent 34.8 32.0-36.0 g/dL Red Cell Distribution Width 11.8 11.0-15.5 % Platelet Count 163 130-400 K/uL Mean Platelet Volume 10.1 7.5-10.5 fL Immature Granulocyte % (Auto) 0.3 0-1 % Neutrophils (%) (Auto) 93.9 H 40.0-77.0 % Lymphocytes (%) (Auto) 3.8 L 21.0-51.0 % Monocytes (%) (Auto) 1.8 L 3.0-13.0 % Eosinophils (%) (Auto) 0.0 0.0-8.0 % Basophils (%) (Auto) 0.2 0.0-5.0 % Neutrophils # (Auto) 5.6 1.8-7.7 K/uL Lymphocytes # (Auto) 0.2 L 1.0-4.8 K/uL Monocytes # (Auto) 0.1 0.1-1.0 K/uL Eosinophils # (Auto) 0.00 0.00-0.70 K/uL Basophils # (Auto) 0.01 0.00-0.20 K/uL Absolute Immature Granulocyte (auto 0.02 0-1 K/uL Nucleated Red Blood Cells 0.0 0.0-0.19 % Sodium Level 132 L 136-145 mmol/L Potassium Level 4.0 3.5-5.1 mmol/L Chloride Level 98 L 101-111 mmol/L Carbon Dioxide Level 31 21-32 mmol/L Blood Urea Nitrogen 27 H 7-18 mg/dL Creatinine 0.4 L 0.5-1.0 mg/dL Glomerular Filtration Rate Calc 121 >90 mL/min Random Glucose 141 H 70-105 mg/dL Total Calcium 7.8 L 8.5-10.1 mg/dL Total Bilirubin 0.1 L 0.2-1.0 mg/dL Aspartate Amino Transf (AST/SGOT) 27 10-37 U/L Alanine Aminotransferase (ALT/SGPT) 39 12-78 U/L Alkaline Phosphatase 112 50-136 U/L Total Protein 5.3 L 6.0-8.3 g/dL Albumin 1.5 L 3.5-5.0 g/dL Whole Blood Glucose 163 H 70-110 MG/DL Test 06/12/24 03:01 06/12/24 00:02 Range/Units Magnesium Level 2.40 1.80-2.40 mg/dL Bedside Glucose Comment Notified Nurse Current Medications Medications (Trade) Dose Ordered Sig/Julita Route PRN Reason Start Time Stop Time Status Last Admin Dose Admin Acetaminophen (TYLenol 650MG ELIXIR) 650 mg Q6H PRN PO MILD PAIN (1-3) 06/04/24 08:30 07/04/24 08:29 06/10/24 20:07 650 MG Acetaminophen (TYLenol 650MG SUPPOSITORY) 650 mg Q6H PRN RC MILD PAIN (1-3) 05/23/24 20:30 06/22/24 20:29 Acetylcysteine (MUComyst 20% 4ML) 400mg = 2ml [id number] IH 06/02/24 00:00 06/05/24 15:52 DC 06/05/24 11:35 200 MG Albuterol (DUOneb) 1 udvial [id number] IH 05/24/24 00:00 06/10/24 10:28 DC 06/10/24 06:45 1 UDVIAL Alprazolam (XANax 0.5MG) 0.5 mg Q8H PRN PO ANXIETY 06/10/24 13:30 07/10/24 13:29 06/11/24 05:22 0.5 MG Artificial Tears (Artificial Tears) 1 DROP OR AD Q8H OU 06/11/24 14:30 07/11/24 14:29 06/13/24 07:33 1 DROP Azithromycin 250 ml @ 250 mls/hr Q24H IVPB 05/24/24 17:00 05/24/24 14:41 DC Azithromycin 250 ml @ 250 mls/hr Q24H STAT IVPB 05/23/24 17:17 05/24/24 14:41 DC 05/23/24 17:45 250 MLS/HR Benzocaine (Cepacol Sore Throat Lozenge) 1 each Q4H PRN MM SORE THROAT 06/08/24 10:00 07/08/24 09:59 06/09/24 07:44 1 EACH Bisacodyl (DulcoLAX) 10 mg DAILY PRN RC CONSTIPATION 06/08/24 14:00 07/08/24 13:59 06/09/24 17:22 10 MG Cefepime HCl (MAXipime 2 gm vial) 2 gm Q12H IVPB 05/24/24 15:00 06/03/24 14:59 DC 06/03/24 03:18 2 GM Ceftriaxone Sodium (ROCEphine 1G INJ) 1 gm Q24H IVPB 05/24/24 17:30 05/24/24 14:41 DC Chlorhexidine Gluconate (Peridex) 15 ml Q6H MM 06/07/24 17:00 06/11/24 14:27 DC 06/10/24 12:22 15 ML Chlorhexidine Gluconate (Peridex) 15 ml Q8H MM 06/11/24 14:30 06/25/24 14:29 06/13/24 07:31 15 ML Cisatracurium Besylate (Nimbex) ONCE IVP 06/11/24 14:30 06/11/24 15:57 DC Cisatracurium Besylate 100 mg/ Sodium Chloride 100 ml @ 0 mls/hr PROTOCOL IV 06/11/24 23:30 07/11/24 23:29 06/13/24 05:30 8 MLS/HR Clotrimazole (Mycelex) 10 mg TID MM 06/04/24 21:00 07/04/24 20:59 06/13/24 08:15 10 MG Dexmedetomidine/ Sodium Chloride (PRECEdex 400MCG/ 100ML-NS) 400 mcg PROTOCOL IV 06/10/24 19:30 07/10/24 19:29 06/12/24 06:32 400 MCG Dobutamine HCl/ Dextrose 250 ml @ 0 mls/hr PROTOCOL IV 06/12/24 16:30 06/12/24 16:53 DC Doxycycline Hyclate 250 ml @ 125 mls/hr Q12H IV 05/24/24 16:30 06/03/24 16:29 DC 06/03/24 04:23 125 MLS/HR Enoxaparin Sodium (Lovenox 80mg) 80 mg BID SQ 06/11/24 09:00 07/11/24 08:59 06/13/24 08:15 80 MG Enoxaparin Sodium (Lovenox) 40 mg Q24H SQ 05/23/24 21:00 06/11/24 04:36 DC 06/10/24 20:07 40 MG Famotidine (Pepcid 20mg Vial) 20 mg DAILY IV 05/24/24 09:00 06/23/24 08:59 06/13/24 08:15 20 MG Fentanyl/Sodium Chloride 250 ml @ 0.1 mls/hr PROTOCOL IV 06/12/24 00:00 06/17/24 00:00 06/12/24 19:50 0.1 MLS/HR Fluconazole (DiFLUCan 100 mg TAB) 200 mg DAILY PO 06/05/24 09:00 07/05/24 08:59 06/13/24 08:15 200 MG Fluconazole/ Sodium Chloride 100 ml @ 100 mls/hr DAILY IV 05/26/24 09:00 05/27/24 15:57 DC 05/27/24 09:07 100 MLS/HR Furosemide (LASix 20MG VIAL) 20 mg DAILY IV 05/31/24 09:00 06/07/24 13:18 DC 06/03/24 08:38 20 MG Furosemide (LASix 20MG VIAL) 20 mg Q12H IV 06/11/24 11:00 06/13/24 09:31 DC 06/12/24 21:54 20 MG Furosemide (LASix 20MG VIAL) 20 mg Q8H IV 06/13/24 09:30 07/13/24 09:29 06/13/24 11:13 20 MG Ganciclovir Sodium 430 mg/ Sodium Chloride 100 ml @ 100 mls/hr Q12H IV 06/13/24 09:00 07/13/24 08:59 06/13/24 08:58 100 MLS/HR Ganciclovir Sodium 500 mg/ Sodium Chloride 100 ml @ 100 mls/hr Q12H IV 06/11/24 18:00 06/11/24 15:48 DC Ganciclovir Sodium (Ganciclovir Sodium) 500 mg Q12H IV 06/12/24 17:00 06/13/24 08:35 DC Guaifenesin/ Dextromethorphan (RobiTUSSin DM 200/20MG 10ML) 10 ml Q4H PRN PO COUGH 05/23/24 20:30 06/22/24 20:29 06/10/24 20:07 10 ML Hydrocortisone Sodium Succinate (Solu-corTEF 100MG) 100 mg Q8H IV 06/11/24 05:00 07/11/24 04:59 06/13/24 12:41 100 MG Hydroxyzine HCl (ATArax 25MG TAB) 25 mg TID PRN PO ITCHING 06/10/24 14:00 07/10/24 13:59 06/11/24 05:22 25 MG Ipratropium Rifle (AtrovENT UD) 0.5 MG [id number] IH 06/10/24 14:00 07/10/24 13:59 06/13/24 10:48 0.5 MG Lactated Ringer's (Lactated Ringers 1000ml) 500 ml ONCE IV 06/02/24 20:00 06/02/24 19:54 DC Levofloxacin/ Dextrose 100 ml @ 100 mls/hr Q24H IV 05/24/24 15:00 05/24/24 16:16 DC Magnesium Sulfate 50 ml @ 0 mls/hr PROTOCOL PRN IV hypomagnesemia 05/28/24 08:00 06/27/24 07:59 06/11/24 05:26 50 MLS/HR Meropenem (Merrem) 1 gm Q8H IVPB 06/11/24 15:00 06/13/24 11:52 DC 06/13/24 08:14 1 GM Meropenem (Merrem) 1 gm Q8H IVPB 06/13/24 15:00 06/21/24 14:59 Meropenem 1 gm/ Sodium Chloride 100 ml @ 33.333 mls/ hr Q8H IV 06/11/24 14:30 06/11/24 14:28 DC Methylprednisolone Sodium Succinate (Solu-medROL 40MG) 20 mg Q12H IVP 06/05/24 07:00 06/09/24 09:13 DC 06/09/24 07:25 20 MG Methylprednisolone Sodium Succinate (Solu-medROL 40MG) 40 mg Q12H IVP 05/28/24 18:00 05/29/24 16:45 DC 05/29/24 05:32 40 MG Methylprednisolone Sodium Succinate (Solu-medROL 40MG) 40 mg Q6H IVP 05/29/24 16:30 06/04/24 16:44 DC 06/04/24 11:13 40 MG Methylprednisolone Sodium Succinate (Solu-medROL 40MG) 40 mg Q6H IVP 06/04/24 18:00 06/05/24 00:24 DC 06/04/24 23:48 40 MG Methylprednisolone Sodium Succinate (Solu-medROL 40MG) 40 mg Q8H IVP 05/24/24 01:00 05/25/24 21:51 DC 05/25/24 17:28 40 MG Methylprednisolone Sodium Succinate (Solu-medROL 40MG) 60 mg Q6H IVP 05/25/24 22:00 05/28/24 02:25 DC 05/27/24 23:55 60 MG Methylprednisolone Sodium Succinate (Solu-medROL 40MG) 60 mg Q6H IVP 05/28/24 06:00 05/28/24 08:27 DC 05/28/24 06:47 60 MG Methylprednisolone Sodium Succinate (Solu-medROL 40MG) 60 mg Q6H IVP 06/11/24 02:30 06/11/24 04:23 DC 06/11/24 02:46 60 MG Metronidazole/ Sodium Chloride (flaGYL) 500 mg Q8H IV 05/25/24 22:00 05/25/24 21:56 DC Midazolam HCl 50 ml @ 0 mls/hr AD PRN IV TITRATE 06/12/24 01:30 06/12/24 08:30 DC 06/12/24 02:30 10 MLS/HR Midazolam HCl 100 ml @ 0 mls/hr AD PRN IV TITRATE 06/12/24 09:00 07/12/24 01:29 06/13/24 08:19 7 MLS/HR Morphine Sulfate (morPHINE 4MG SYG) 4 mg Q4H PRN IM RESPIRATORY SYMPTOMS 06/11/24 03:30 06/18/24 03:29 06/11/24 03:27 4 MG Ondansetron HCl (zoFRAN 4MG INJ) 4 mg Q6H PRN IV NAUSEA/VOMITING 05/23/24 20:30 06/22/24 20:29 Pantoprazole Sodium (PROTonix 40MG INJ) 40 mg BID IVP 06/12/24 21:00 07/12/24 20:59 06/13/24 08:15 40 MG Pharmacy Profile Note (Pharmacy Communication) 1 each ONCE MISC 06/11/24 14:30 06/11/24 15:53 DC Pharmacy Profile Note (Pharmacy Communication) 1 each ONCE MISC 06/11/24 20:30 06/11/24 20:14 DC Pharmacy Profile Note (Pharmacy Communication) 1 each ONCE MISC 06/12/24 17:00 06/12/24 17:07 DC Phenylephrine HCl 10 mg/Sodium Chloride 251 ml @ 0 mls/hr AD PRN IV DIRECTED 06/11/24 03:00 06/12/24 18:12 DC 06/12/24 14:10 47 MLS/HR Phenylephrine HCl 50 mg/Sodium Chloride 250 ml @ 0 mls/hr PROTOCOL PRN IV PROTOCOL 06/12/24 18:00 07/12/24 17:59 06/13/24 08:57 12.45 MLS/HR Potassium Chloride 100 ml @ 100 mls/hr AD PRN IV POTASSIUM PROTOCOL 05/28/24 08:00 06/27/24 07:59 Potassium Chloride (K-Dur/Klor-Con 20meq) 20 meq AD PRN PO POTASSIUM PROTOCOL 05/28/24 08:00 06/27/24 07:59 Potassium Chloride (KCl 10% Elixir 20meq/15ml) 20 meq AD PRN PO POTASSIUM PROTOCOL 05/28/24 08:00 06/27/24 07:59 Prednisone (deltaSONE/ oraSONE 20MG TAB) 20 mg DAILY PO 06/10/24 09:00 07/10/24 08:59 06/13/24 08:15 20 MG Rocuronium Rifle (ZemuRON) 10 mg Q1H PRN IV RESP DISTRESS/VENT DISYNCHRONY 06/11/24 20:30 06/11/24 23:29 DC 06/11/24 20:33 10 MG Sodium Chloride 500 ml @ 500 mls/hr Q1H IV 06/02/24 20:00 06/02/24 20:59 DC 06/02/24 21:34 500 MLS/HR Sodium Chloride 1,000 ml @ 75 mls/hr [id number] IV 06/07/24 13:30 06/10/24 17:02 DC 06/10/24 09:05 75 MLS/HR Sodium Chloride (Sodium Chloride) 1,000 mg BIDAC PO 06/07/24 16:30 06/09/24 07:28 DC 06/08/24 16:58 1,000 MG Sodium Chloride (Sodium Chloride) 1,000 mg BIDAC PO 06/09/24 07:30 06/12/24 16:35 DC 06/12/24 12:30 1,000 MG Sodium Chloride (Sodium Chloride) 1,000 mg Q12H PO 06/12/24 21:00 07/09/24 07:29 06/13/24 08:15 1,000 MG Sodium Zirconium Cyclosilicate (Lokelma) 5 gm DAILY10 PO 06/08/24 10:30 06/10/24 10:29 DC 06/08/24 10:50 5 GM Trimethoprim/ Sulfamethoxazole (BactRIM DS) 1 tab BID PO 05/26/24 21:00 05/29/24 16:18 DC 05/29/24 08:07 1 TAB Trimethoprim/ Sulfamethoxazole (BactRIM DS) 2 tab TID PO 05/29/24 16:30 06/05/24 20:59 DC 06/05/24 14:55 2 TAB Trimethoprim/ Sulfamethoxazole (BactRIM DS) 2 tab TID PO 06/06/24 09:30 06/11/24 21:54 DC 06/10/24 13:58 2 TAB Trimethoprim/ Sulfamethoxazole 320 mg/Dextrose 500 ml @ 500 mls/hr Q8H IV 06/11/24 22:30 06/12/24 16:35 DC 06/12/24 06:39 500 MLS/HR Trimethoprim/ Sulfamethoxazole 320 mg/Dextrose 500 ml @ 500 mls/hr Q8H IV 06/12/24 18:00 06/13/24 11:13 DC 06/13/24 05:30 500 MLS/HR Trimethoprim/ Sulfamethoxazole 320 mg/Dextrose 500 ml @ 500 mls/hr Q8H IV 06/13/24 13:30 06/23/24 13:29 Valganciclovir (ValGANCIClovir HCL) 900 mg BID PO 06/11/24 21:00 06/13/24 08:37 DC DIAGNOSTICS / RADIOLOGY: [ ] ASSESSMENT: Acute hypoxemic respiratory failure, POA Bilateral lower lobe bacterial pneumonia + MRSA POA, +Azra Suspected PCP PNA based on CT findings vs viral/Atypical PNA . POA HIV positive (preliminary report, confirmatory test nonreactive) POA Normocytic anemia, not POA Neutrophilia, POA Hyperglycemia, POA Obesity BMI of 32.3 Former smoker Acute cystitis, POA Fatty liver, POA Moderate hypoalbuminemia POA Previous COVID-19 infection Pneumomediastinum PLAN: Continue ICU Patient intubated, mechanical ventilation Continue blood pressure support, wean as tolerated Continue fentanyl, continue Nimbex. Continue to follow critical care input recommendation Continue the patient on Bactrim fluconazole. Continue the patient on prednisone p.o. Continue to follow infectious disease input and recommendation Continue to follow chest x-ray Continue to follow ABG Continue bronchodilators per respiratory therapist Replace electrolytes IV per protocol A.m. labs GI and DVT prophylaxis. Further orders to follow based on the above results Disposition: Remains admitted to the ICU, pending improvement clinical condition. Prognosis is poor guarded. Total ICU time spent greater than 30 minutes. GAIL WALDRON MD Jun 13, 2024 12:58
[2024-06-13] MEDS: BACTRIM 800MG/160MG 10ML VIAL 320 MG in DEXTROSE 5%-WATER 500 ML IV SCH (13:41)
[2024-06-13] MEDS: MEROPENEM 1GM 1 GM VIAL IVPB SCH (14:51)
--- NOTE | 2024-06-13 17:29 | NUR ---
[facility] Consult: Unable to assess at this time due to patient in prone position and hemodynamically unstable at this time. Addendum: 06/13/24 at 1730 by RULA RODRIGUEZ RN RN/SHANNON Amended: Links added.
--- NOTE | 2024-06-13 19:07 | NUR ---
NURSING NOTES PT NOTED TO BE TACHYCARDIC, EKG DONE, RHYTHM IS SINUS TACHYCARDIA, MARGO LITIGATION PARALEGAL MADE AWARE, ORDER FOR CXR RECEIVED, SPO2 IS AT 90%, RECEIVED ORDER NOT TO SUPINE PT D/T CURRENT STATE, RELATIONSHIP SPECIALIST AWARE, FAMILY HAS BEEN MADE AWARE REGARDING CRITICAL STATUS, NEXT OF KIN WAS APPROACHED REGARDING DNR, HE WILL THINK ABOUT IT OF NOW.
--- NOTE | 2024-06-13 19:48 | EKG ---
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
--- NOTE | 2024-06-13 19:58 | PN ---
INFECTIOUS DISEASE PROGRESS NOTE Date of Service: Jun 13, 2024 SUBJECTIVE: This is a 49-year-old female patient who was admitted with chief complaint of shortness of breaths. A chest x-ray done on admission showed left lower lung pneumoniae. A CT chest showed bilateral pulmonary infiltrates but no evidence of PE. 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 Patient was seen and examined at bedside in the ICU room 208. Patient is intubated and sedated. Patient has been started on Ganciclovir for possible cytomegalovirus. Pending CMV PCR blood results.Continues on Bactrim and fluconazole. No fever this morning, temperature is 99.0. Continues being prone. We will continue to follow patient's care. PHYSICAL EXAM EYES: Anicteric. Pupils equal and reactive. HENT: No oral thrush seen, moist Oral mucosa. NG tube. Oropharyngeal lesions. NECK: Supple, no JVD or thyromegaly. RESPIRATORY: Intubated. CARDIOVASCULAR: S1, S2 regular. No murmur heard. ABDOMEN: Soft, non tender, bowel sounds present, no organomegaly. CENTRAL NERVOUS SYSTEM: Intubated. SKIN: No rashes, no swelling. LYMPHATICS: No peripheral lymphadenopathy. MUSCULOSKELETAL: No joint swelling, erythema or tenderness. EXTREMITIES: No cyanosis or clubbing. BACK: No deformity, no pressure ulcer. GENITOURINARY: No dysuria or hematuria. Souza catheter. Vital Sign (Last 12 Hours) 06/13/24 06/13/24 06/13/24 06/13/24 08:00 08:00 08:00 08:15 Pulse 113 112 117 Resp B/P (MAP) 112/81 (91) 110/79 (89) 108/78 (88) Pulse Ox 91 90 91 91 O2 Delivery Ventilator+ FiO2 100 06/13/24 06/13/24 06/13/24 06/13/24 08:30 08:45 08:46 09:00 Pulse 118 119 117 112 Resp 24 B/P (MAP) 112/80 (91) 113/83 (93) 109/85 (93) 110/79 (89) 145/77 (99) Pulse Ox 91 91 91 90 06/13/24 06/13/24 06/13/24 06/13/24 09:00 09:15 09:30 09:39 Pulse 121 117 116 93 Resp B/P (MAP) 112/80 (91) 110/79 (89) 111/79 (90) Pulse Ox 91 91 90 FiO2 100 06/13/24 06/13/24 06/13/24 06/13/24 09:45 09:46 10:00 10:15 Pulse 116 116 118 116 Resp B/P (MAP) 113/81 (92) 115/87 (96) 116/83 (94) 112/80 (91) 146/81 (102) Pulse Ox 91 91 91 90 06/13/24 06/13/24 06/13/24 06/13/24 10:30 10:45 10:46 10:50 Pulse 113 121 139 116 Resp B/P (MAP) 115/82 (93) 124/73 (90) 122/78 (93) 144/86 (105) Pulse Ox 91 91 91 06/13/24 06/13/24 06/13/24 06/13/24 11:00 11:15 11:30 11:30 Temp 98.4 Pulse 114 114 114 116 Resp B/P (MAP) 127/73 (91) 126/72 (90) 137/78 (97) Pulse Ox 93 92 93 FiO2 100 100 06/13/24 06/13/24 06/13/24 06/13/24 11:45 11:46 12:00 12:00 Pulse 123 115 114 Resp B/P (MAP) 126/73 (90) 116/75 (89) 130/75 (93) 149/78 (101) Pulse Ox 92 92 91 92 O2 Delivery Ventilator+ FiO2 100 06/13/24 06/13/24 06/13/24 06/13/24 12:15 12:30 12:45 12:46 Pulse 117 120 122 123 Resp B/P (MAP) 133/77 (95) 138/78 (98) 139/78 (98) 135/82 (99) 157/86 (109) Pulse Ox 92 92 92 92 06/13/24 06/13/24 06/13/24 06/13/24 13:00 13:15 13:30 13:45 Pulse 122 144 124 130 Resp B/P (MAP) 136/76 (96) 126/71 (89) 136/77 (96) 136/76 (96) Pulse Ox 92 91 91 92 06/13/24 06/13/24 06/13/24 06/13/24 13:46 14:00 14:15 14:30 Pulse 129 124 128 130 Resp B/P (MAP) 141/84 (103) 136/75 (95) 140/77 (98) 142/77 (98) 156/91 (112) Pulse Ox 92 91 91 91 06/13/24 06/13/24 06/13/24 06/13/24 14:45 14:46 15:00 15:15 Temp 98.8 Pulse 131 122 155 124 Resp B/P (MAP) 142/76 (98) 144/85 (104) 145/77 (99) 146/78 (100) 160/91 (114) Pulse Ox 91 91 91 91 06/13/24 06/13/24 06/13/24 06/13/24 15:22 15:30 15:31 15:51 Pulse 111 152 116 Resp B/P (MAP) 145/77 (99) Pulse Ox 90 FiO2 100 06/13/24 06/13/24 06/13/24 06/13/24 16:00 16:00 16:15 16:30 Pulse 132 126 127 Resp B/P (MAP) 151/79 (103) 152/79 (103) 150/78 (102) Pulse Ox 90 92 90 90 O2 Delivery Ventilator+ FiO2 100 06/13/24 06/13/24 06/13/24 06/13/24 16:45 16:46 17:00 17:15 Pulse 128 127 128 128 Resp B/P (MAP) 154/81 (105) 155/88 (110) 160/84 (109) 177/83 (114) 163/91 (115) Pulse Ox 91 91 92 93 06/13/24 06/13/24 06/13/24 06/13/24 17:30 17:45 17:46 18:00 Pulse 130 132 131 131 Resp B/P (MAP) 167/79 (108) 164/77 (106) 162/91 (114) 165/78 (107) 161/88 (112) Pulse Ox 92 92 92 93 1/06/13/24 06/13/24 06/13/24 18:15 18:16 18:47 18:50 Pulse 130 132 134 Resp 26 23 B/P (MAP) 166/78 (107) Pulse Ox 92 FiO2 100 06/13/24 19:30 FiO2 100 Intake & Output (last 24hrs) 06/12/24 06/12/24 06/13/24 15:00 23:00 07:00 Intake Total 196.0 ml 252.5 ml 484.0 ml Output Total 1900 ml 900 ml Balance -1704.0 ml 252.5 ml -416.0 ml LABS: Laboratory: Test 06/13/24 10:56 06/13/24 04:24 06/13/24 04:01 06/12/24 11:31 Range/Units Blood Gas Specimen Type Arterial Arterial Blood pH 7.346 L 7.350-7.450 Arterial Blood Partial Pressure CO2 55 H 32-45 mmHg Arterial Blood Partial Pressure O2 72.3 L 83.0-108.0 mmHg Arterial Blood HCO3 29.5 H 21.0-28.0 mmol/L Arterial Blood Oxygen Saturation 93.5 L 94.0-98.0 % Arterial Blood Base Excess 2.4 -2.0-3.0 mmol/L Blood Gas Temperature 37.0 35.5-37.0 CELSIUS Blood Gas Respiration Rate 24.0 min. Blood Gas Vent Mode AC ROOM AIR FiO2 100.0 % Blood Gas Tidal Volume 500 ml Blood Gas PEEP 7 cm H2O Blood Gas Specimen Comment [place] Hemoglobin (Blood Gas) 10.3 L 12.0-16.0 g/dL Sodium (Blood Gas) 130 L 136-145 MMOL/L Bedside Potassium (Blood Gas) 3.9 3.4-4.5 MMOL/L Bedside Chloride (Blood Gas) 99 98-107 MMOL/L Bedside Glucose (Blood Gas) 138 H 65-95 MG/DL Bedside Ionized Calcium (Blood Gas) 1.10 L 1.15-1.33 MMOL/L Bedside Lactic Acid (Blood Gas) 1.28 H 0.36-0.75 MMOL/L White Blood Count 6.0 4.8-10.8 K/uL Red Blood Count 2.84 L 4.00-5.50 MIL/uL Hemoglobin 9.4 L 12.0-16.0 g/dL Hematocrit 27.0 L 36-48 % Mean Corpuscular Volume 95.1 79-99 fL Mean Corpuscular Hemoglobin 33.1 H 27.0-33.0 pg Mean Corpuscular Hemoglobin Concent 34.8 32.0-36.0 g/dL Red Cell Distribution Width 11.8 11.0-15.5 % Platelet Count 163 130-400 K/uL Mean Platelet Volume 10.1 7.5-10.5 fL Immature Granulocyte % (Auto) 0.3 0-1 % Neutrophils (%) (Auto) 93.9 H 40.0-77.0 % Lymphocytes (%) (Auto) 3.8 L 21.0-51.0 % Monocytes (%) (Auto) 1.8 L 3.0-13.0 % Eosinophils (%) (Auto) 0.0 0.0-8.0 % Basophils (%) (Auto) 0.2 0.0-5.0 % Neutrophils # (Auto) 5.6 1.8-7.7 K/uL Lymphocytes # (Auto) 0.2 L 1.0-4.8 K/uL Monocytes # (Auto) 0.1 0.1-1.0 K/uL Eosinophils # (Auto) 0.00 0.00-0.70 K/uL Basophils # (Auto) 0.01 0.00-0.20 K/uL Absolute Immature Granulocyte (auto 0.02 0-1 K/uL Nucleated Red Blood Cells 0.0 0.0-0.19 % Sodium Level 132 L 136-145 mmol/L Potassium Level 4.0 3.5-5.1 mmol/L Chloride Level 98 L 101-111 mmol/L Carbon Dioxide Level 31 21-32 mmol/L Blood Urea Nitrogen 27 H 7-18 mg/dL Creatinine 0.4 L 0.5-1.0 mg/dL Glomerular Filtration Rate Calc 121 >90 mL/min Random Glucose 141 H 70-105 mg/dL Total Calcium 7.8 L 8.5-10.1 mg/dL Total Bilirubin 0.1 L 0.2-1.0 mg/dL Aspartate Amino Transf (AST/SGOT) 27 10-37 U/L Alanine Aminotransferase (ALT/SGPT) 39 12-78 U/L Alkaline Phosphatase 112 50-136 U/L Total Protein 5.3 L 6.0-8.3 g/dL Albumin 1.5 L 3.5-5.0 g/dL Whole Blood Glucose 163 H 70-110 MG/DL Test 06/12/24 03:01 06/12/24 00:02 Range/Units Magnesium Level 2.40 1.80-2.40 mg/dL Bedside Glucose Comment Notified Nurse ASSESSMENT: Acute hypoxic respiratory failure, s/p intubated on 06/11/2024. Pneumocystis carinii pneumonia. Infection with methicillin-resistant Staphylococcus aureus. Positive HIV test. Leukocytosis, resolved. Obesity. Oral candidiasis. Possible cytomegalovirus. PLAN: Continue on Ganciclovir IV. Continue Bactrim . Continue fluconazole p.o. Continue critical care support. Continue ventilatory support. Continue vasopressor support. Continue steroids. Continue GI prophylaxis. Continue bronchodilators. Continue DVT prophylaxis. We will follow up on the CMV PCR blood results. This case was reviewed and discussed with my supervising physician and the above assessment and plan was formulated and agreed upon. ATTESTATION BY PHYSICIAN I have seen and examined the patient. I reviewed the documentation, medical decision making, and treatment plan as noted by the mid-level provider above. I agree with the findings and plan of care. [place] MD, MIRTA L [facility] Jun 13, 2024 19:58
[2024-06-14] VITALS (113 sets, daily range): BP systolic 93–133; BP diastolic 52–74; PULSE 90–124; RESP 26–43; TEMP 97.4–99; O2SAT 91–97
[2024-06-14 04:22] LABS: ABG BASE EXCESS 8.2 mmol/L (-2.0-3.0); ABG PCO2 69 mmHg (32-45); ABG PH 7.336 (7.350-7.450); CARBON MONOXIDE 0 % (0.5-1.5); PO2, ARTERIAL BG 73.8 mmHg (83.0-108.0); VENT MODE, BG AC VC (ROOM AIR)
[2024-06-14 04:32] LABS: HEMATOCRIT 25.4 % (36-48); IMMATURE GRANULOCYTE ABSOLUTE 0.01 K/uL (0-1); LYMPHOCYTES # (AUTO) 0.2 K/uL (1.0-4.8); LYMPHOCYTES % (AUTO) 6.6 % (21.0-51.0); MEAN CORPUSCULAR HEMOGLOBIN 32.7 pg (27.0-33.0); MEAN CORPUSCULAR HGB CONC 33.9 g/dL (32.0-36.0); MEAN CORPUSCULAR VOLUME 96.6 fL (79-99); MONOCYTES # (AUTO) 0.1 K/uL (0.1-1.0); MONOCYTES % (AUTO) 2.6 % (3.0-13.0); NEUTROPHILS # (AUTO) 2.8 K/uL (1.8-7.7); NEUTROPHILS % (AUTO) 90.5 % (40.0-77.0); PLATELET COUNT (AUTO) 132 K/uL (130-400); RED BLOOD CELL COUNT(AUTO) 2.63 MIL/uL (4.00-5.50); RED CELL DISTRIBUTION WIDTH 11.8 % (11.0-15.5)
[2024-06-14 04:54] LABS: ALBUMIN 1.4 g/dL (3.5-5.0); CREATININE 0.5 mg/dL (0.5-1.0); POTASSIUM 4.1 mmol/L (3.5-5.1)
[2024-06-14 05:00] LABS: BAND NEUTROPHILS % (MANUAL) 1 % (0-2); LYMPHOCYTES % (MANUAL) 7 % (22-44); MAN.DIFF COMMENT-IMPRESSION MANUAL DIFFERENTIAL; MONOCYTES % (MANUAL) 2 % (2-9); SEGMENTED NEUTROPHILS % 90 % (40-70); TOTAL CELLS COUNTED 100; WBC MORPHOLOGY SMUDGE CELLS 1+
[2024-06-14 05:01] LABS: PLATELET MORPHOLOGY COMMENT ADEQUATE
[2024-06-14 05:06] LABS: BILIRUBIN,TOTAL 0.1 mg/dL (0.2-1.0)
--- NOTE | 2024-06-14 08:40 | PN ---
[facility] PROGRESS NOTE Date Patient Seen: Jun 14, 2024 Time of Visit: 08:40 Supervising Physician: Jewel Evans MD Primary Care Physician: Stu Foss MD Outpatient Specialists: Inpatient Consults: Pulmonology PROBLEM LIST: Severe ARDS Acute hypoxemic respiratory failure s/p intubation 06/11/24 requiring proning Bilateral lower lobe bacterial pneumonia + MRSA POA, +Azra Confirmed PCP PNA per Ag (serology), POA Pneumomediastinum on x-ray 06/12/24 Concern for disseminated CMV Elevated DDIMER r/o PE & DVT New HIV/AIDS positive POA Hyponatremia and hyperkalemia, suspected Bactrim induced Normocytic anemia, not POA Neutrophilia, POA Hyperglycemia, POA Obesity BMI of 32.3 Former smoker Fatty liver, POA Moderate hypoalbuminemia POA Previous COVID-19 infection INTERVAL HISTORY: 06/10/2024: At the time of my evaluation, the patient was lying in bed. Per the patient report, she had a anxiety episode overnight. He is awake alert and oriented x4. She remains intermittently febrile most recent 100.8. On a monitor, the patient is normotensive without any pressor support. She remains tachycardic up in the 120s. The patient remains on oxygenation with high-flow nasal cannula 30 L/70% FiO2 and denies any hypoxemic event. She continues to feed orally, no complaint of nausea vomiting or diarrhea. The patient reports voiding without difficulty. Intake and output shows a intake of 2006 units 60.0, output of 2500 and a positive balance of 160.0. Laboratory data review of significance showed no changes of concern on CBC, chemistry panel of significance showed a sodium count of 128, potassium of 3.8, chloride of 93 and the remaining parameters were unremarkable. Blood cultures showing no growth. A chest CT was ordered and is pending. No other complaint. 06/11/24: 02:07 RN called. Reports patient is tachypneic, RR 30s-40s bpm. On BiPAP at 100% FiO2,12/6, rate 16 bpm. Patient was changed to AVAPS and ABGs were redrawn, pH 7.413, PO2 69.4, pCO2 42.4. The patient is on Precedex but she had to go down on Precedex due to hypotension. RN reports that patient is not sedated with Precedex due to having to slow down hypotension. Added Mario- Synephrine IV drip. 03:38 RN called that patient remains tachypneic. Lasix 40 mg IV x1 dose ordered, Solu-Medrol IV 60 IV q.6, BNP, and D-dimer were ordered. I went to assess the patient at bedside. I explained to the patient and significant other at bedside the ABGs results. I informed that the patient is tachypneic, RR 44 bpm, tachycardic 123, and ABGs showed hypoxia at 69.4. I spent a lengthy amount of time educating the patient on her guarded/critical condition. They verbalized understanding. Both of them report that they are not ready for intubation, but we will allow intubation if does not improve. I showed them of the retractions that the patient has and the abdominal breathing. They verbalized understanding and continued to request to hold on intubation for now. Per chart review CTA on 05/24/2024 was negative for a PE. Bilateral pulmonary infiltrates with segmental atelectasis. Two days BNP was WNL. D-dimer was 4641. 06/11/24 AM rounds: Patient's oxygenation status not improving on BiPAP with the FiO2 100%. Saturating 88-89% patient appears tachypneic pale and tachycardic. Spoke to patient and informed of need for intubation. Patient requested to wait for her son to be at bedside. once son was at bedside informed them of the need for intubation and risks and benefits. In order to alleviate some of the pt's anxiety and fear of intubation we has son at her side until sedated prior to intubation in which then son stepped out and patient was intubated per Dr. Lundberg. Still on the ventilator patient is saturating 89%, ventilator settings adjusted to assist control volume control tidal volume 500 respiratory rate of 18 FiO2 of 100% and PEEP of 10, plateau pressure 23. Decision was made for proning. Added Nimbex as a paralyzing agent per protocol drip. Informed pt's son on need for a central line due to patient requiring multiple drips. Sodium in agreement. Otherwise on CBC similar to yesterday, chemistry kidneys are doing well with a creatinine of 0.6 with a GFR of 109 sodium has improved to 130 potassium 3.8 chloride of 94 BUN of 30. OG tube to be placed and start tube feedings. Pt with multiple mouth sores concern for herpes simplex. Valg anciclovir 900 mg p.o. b.i.d. started per pharmacy to dose. 06/12/24-patient assessed in room two eight in the ICU, patient is sedated and paralyzed with Nimbex drip, fentanyl and Versed. She is hemodynamically stable. On mechanical ventilation on assist-control volume control tidal volume 500 respiratory rate of 24 FiO2 of 60% with a PEEP of 10 saturating 99%. Pt was prone that 20:00 yesterday and is due for supine position at noon today. Urine output 3.9 L with a-1.4 L balance. CBC unremarkable. Chemistries sodium is 131 chloride 95 carbon dioxide 33 BUN 28 creatinine 0.5 and GFR of 114, glucose 156 mg/dL. Total calcium 8.0 albumin of 1.7. With a calcium correction for hypoalbuminemia of 9.8 mg/dL. ABG for this morning with a pH of 7.36 pCO2 of 47 , PO2 of 122 on FiO2 of 80% and bicarb of 27.7. Chest x-ray shows interval development of pneumomediastinum as well as subcutane ous consistent with a emphysema in the neck. Tubes and all lines appear in good position there are diffuse bilateral infiltrates which otherwise unchanged. 06/13/24- patient is in the ICU critically ill w/ grim prognosis. She is currently prone saturating in the low 90s and sinus tachycardic 116 BPM. Blood pressure is 115/82 with respiratory rate of 24 on the vent currently sedated and paralyzed with fentanyl, Versed drip and Nimbex gtt per protocol. Urine output was 4.7 L in the last 24 hours with a balance of -3.6 L.On laboratory sodium is 132 potassium is 4.0 chloride of 98 carbon dioxide of 31, BUN 27 creatinine of 0.4 with a GFR of 121 improved from yesterday glucose 141 mg/dL albumin 1.5. Chest x-ray four this morning with a increased bilateral pulmonary infiltrates, increasing pneumomediastinum, tubes and lines are in good position. There is no pneumothorax. Latest ABGs with a pH of 7.34 with a pCO2 of 55 PO2 of 72.3 bicarb of 29.5 and ABGs saturation of 93.5. PF ratio 72. Patient remains prone to optimize oxygenation. Plateu pressures have increased to above 30. Ventilator changes as follows: Tidal volume of 425 respiratory rate of 26 FiO2 100% and PEEP of 7 with plateau pressure goals of less than 30. I have spoken to the son at the bedside and updated him on current clinical findings. I discussed code status with patient's son. For now patient remains full code. 06/14/24-patient continues critically ill, with poor prognosis. She continues sedated paralyzed and intubated. Currently on drips of fentanyl at 150 mcg per hour and Versed and 9mg per hour and Nimbex of 2 micrograms/kg/min. Patient is prone and intubated latest ABGs: PH of 7.33, pCO2 of 69 PO2 of 73.8 and bicarb of 36 base excess 8.2. Ventilator adjusted to ACVC tidal volume of 450 respiratory rate of 28 FiO2 of 100% and PEEP of 10. We will repeat ABG in a couple of hours. She is off pressors blood pressure 109/65 with a map of 80 heart rate of 104 improved from yesterday respiratory rate of 28 on the ventilator saturating 91% with a FiO2 of 100% on the vent. She has been afebrile with a T-max of 99.1 in the last 24 hours and a T low of 97.3. Urine output has decreased to 1 L in the last 24 hours and balance is positive 829 mL. On laboratory WBCs decreased to three H&H 8.6/25.4 platelet count is normal 132 K neutrophils of 90.5 decreasing. Sodium 132 similar to yesterday with a chloride of 95 carbon dioxide 37 BUN of 17 creatinine 0.5 GFR 114 glucose of 157 mg/dL total calcium of 7.6 pseudo hypocalcemia secondary to hypoalbuminemia 1.4 total protein 5.0. On chest x-ray diffuse pulmonary infiltrates oriented to bi lateral lungs multilobular. Patient's prognosis is grim I have spoken to son yesterday regarding to code status as for now patient remains full code. REVIEW OF SYSTEMS: Unable to obtain ROS from patient due to patient's medical condition. PHYSICAL EXAM: GENERAL: Sedated and intubated, currently prone HEENT: Sclera non icteric, dry scabs and sores to mucosa NECK: short neck no JVD, trachea midline LUNGS: diminished to bilateral breath sounds no wheezing. HEART: Regular rate and rhythm. Normal S1 and S2, without murmurs ABD: Abdomen soft, nontender. Bowel sounds present EXT: No clubbing cyanosis or edema NEURO: Intubated sedated and paralyzed. Vital Signs (last 8hr) Date Time Temp Pulse Resp B/P (MAP) Pulse Ox O2 Delivery O2 Flow Rate FiO2 06/14/24 08:00 91 Ventilator+ 100 06/14/24 08:00 97.3 104 28 109/65 (80) 91 116/64 (81) 06/14/24 08:00 100 06/14/24 07:45 104 28 118/60 (79) 91 06/14/24 07:30 103 28 114/58 (76) 91 06/14/24 07:15 103 28 119/60 (79) 92 06/14/24 07:00 100 28 114/59 (77) 91 06/14/24 06:54 105 28 06/14/24 06:40 108 100 06/14/24 02:18 124 100 06/14/24 01:58 115 26 06/14/24 00:50 100 06/14/24 00:49 95 Ventilator+ 100 06/14/24 00:46 119 26 110/70 (83) 92 132/74 (93) LABS: Hematology Labs: Test 06/14/24 04:18 Range/Units White Blood Count 3.0 L 4.8-10.8 K/uL Red Blood Count 2.63 L 4.00-5.50 MIL/uL Hemoglobin 8.6 L 12.0-16.0 g/dL Hematocrit 25.4 L 36-48 % Mean Corpuscular Volume 96.6 79-99 fL Mean Corpuscular Hemoglobin 32.7 27.0-33.0 pg Mean Corpuscular Hemoglobin Concent 33.9 32.0-36.0 g/dL Red Cell Distribution Width 11.8 11.0-15.5 % Platelet Count 132 130-400 K/uL Mean Platelet Volume 10.0 7.5-10.5 fL Immature Granulocyte % (Auto) 0.3 0-1 % Neutrophils (%) (Auto) 90.5 H 40.0-77.0 % Lymphocytes (%) (Auto) 6.6 L 21.0-51.0 % Monocytes (%) (Auto) 2.6 L 3.0-13.0 % Eosinophils (%) (Auto) 0.0 0.0-8.0 % Basophils (%) (Auto) 0.0 0.0-5.0 % Neutrophils # (Auto) 2.8 1.8-7.7 K/uL Lymphocytes # (Auto) 0.2 L 1.0-4.8 K/uL Monocytes # (Auto) 0.1 0.1-1.0 K/uL Eosinophils # (Auto) 0.00 0.00-0.70 K/uL Basophils # (Auto) 0.00 0.00-0.20 K/uL Absolute Immature Granulocyte (auto 0.01 0-1 K/uL Segmented Neutrophils % 90 H 40-70 % Band Neutrophils % 1 0-2 % Lymphocytes % (Manual) 7 L 22-44 % Monocytes % (Manual) 2 2-9 % Nucleated Red Blood Cells 0.0 0.0-0.19 % Differential Comment MANUAL DIFFERENTIAL White Cell Morphology Comment SMUDGE CELLS 1+ Platelet Morphology Comment ADEQUATE Red Blood Cell Morphology HYPOCHROM CELLS 1+ Chemistry Labs: Test 06/14/24 04:18 06/12/24 11:31 Range/Units Sodium Level 132 L 136-145 mmol/L Potassium Level 4.1 3.5-5.1 mmol/L Chloride Level 95 L 101-111 mmol/L Carbon Dioxide Level 37 H 21-32 mmol/L Blood Urea Nitrogen 17 7-18 mg/dL Creatinine 0.5 0.5-1.0 mg/dL Glomerular Filtration Rate Calc 114 >90 mL/min Random Glucose 157 H 70-105 mg/dL Total Calcium 7.6 L 8.5-10.1 mg/dL Total Bilirubin 0.1 L 0.2-1.0 mg/dL Aspartate Amino Transf (AST/SGOT) 22 10-37 U/L Alanine Aminotransferase (ALT/SGPT) 34 12-78 U/L Alkaline Phosphatase 104 50-136 U/L Total Protein 5.0 L 6.0-8.3 g/dL Albumin 1.4 L 3.5-5.0 g/dL Whole Blood Glucose 163 H 70-110 MG/DL DIAGNOSTICS / RADIOLOGY RESULTS: IMAGING REPORT Signed PATIENT: RIO OSORIO MR#: [id number] : 1975 SEX: F AGE: 49 LOCATION: 2BH ORDER 99 STATUS: ADM IN REPORT#: [id number] SERVICE 0600 REASON: intubated ORDERING PHYSICIAN: MARGO LOGAN PROCEDURE: CXR1VW - CHEST 1VW CHEST 1VW REASON: intubated COMPARISON: 06/14/2024 FINDINGS: There are extensive bilateral infiltrates which are unchanged. Tubes and lines remain in good position. There is no pneumothorax. IMPRESSION: 1. Extensive bilateral infiltrates unchanged. DICTATED BY: LALO IBANEZ MD DATE: 06/14/24939 ELECTRONICALLY SIGNED BY: LALO IBANEZ MD DATE: 06/14/24942 PLAN Continue sedation with fentany, versed and paralyze w/ nimbex and prone manage vent per abg maintain plateu pressure of < 30 Wean PEEP as tolerated 1st then FiO2 due to pneumomediastinum. Continue steroids Continue Atrovent q.4 hours. Mario-Synephrine IV drip to maintain map above 65 ABX per ID POA is son NEURO: Minimize central acting medications as possible. Fall Precautions. Well lighted room through the day and minimize interruptions through the night to prevent acute delirium. PULMONARY: Supplemental 02 as needed Titrate Fio2 to keep Spo2 > or = 90% DuoNebs and CPT as needed IS hourly while awake for pulmonary hygiene Out of bed to chair as tolerated CARDIOVASCULAR: Follow hemodynamics. Titrate vasopressor to keep MAP >65 or systolic blood pressure >95mmHg telemetry LINES: CVC RT IJ Arterial line ET tube' FC OG tube GI & NUTRITION: Continue nutritional support Aspirations precautions Prokinetic agents and laxatives as needed KIDNEYS & ELECTROLYTES: Strict monitoring of intake and output Daily weights Avoid nephrotoxic agents Monitor electrolytes and replace as needed Goal urine output of 30mL/hr or 0.5mL/kg/hr ENDOCRINE: Maintain blood glucose between 100-180 at all times. Insulin sliding scale for blood glucose management INFECTIOUS DISEASE: Trend temperature. Clarke-culture if febrile. Sputum culture from 05/23/24 positive for MRSA, Betty albicans Pneumocystis carinii antigen positive Panculture: 06/02/24 Blood cultures Urine cultures Respiratory culture Antibiotics: Bactrim DS Fluconazole Mycelex Valganciclovir meropenem HEMATOLOGY & COAGULATION: Monitor H&H. Keep Hgb > 7 Transfuse 1 unit of PRBC for Hgb < 7 Transfuse 1 pack of platelets of platelets < 20, 000 Watch for any signs and symptoms of bleeding SKIN: Pressure ulcer prevention per facility protocol Rehab: PT/OT Prophylaxis: GI: Pepcid DVT: Lovenox Code Status: Full Resuscitation Disposition: ICU Other: Critical care time I personally spent 45 minutes of critical care time in treatment of this pa tient. This includes patient management, time at bedside, time reviewing tests, labs, appropriate images and studies, documentation, and patient care coordination. This time excludes separately billable procedures. MARGO LOGAN [facility] Jun 14, 2024 08:40
[2024-06-14] MEDS: Solu-medROL 125MG VIAL IVP SCH (08:48)
--- NOTE | 2024-06-14 09:08 | PN ---
[facility] PROGRESS NOTE Date of Service: Jun 14, 2024 Time of Service: 09:08 SUBJECTIVE: [ ] Ms. Abdullahi is a 49-year-old female that was seen and examined today on 05/23/2024. Patient is a good historian and personal health. Patient's son Dagoberto Salcido is at bedside. Patient states that she came to the emergency department with a chief complaint of shortness of breath. Onset was two weeks ago. Location is to lungs. Duration is on and off. Character is described as "easily running out of air." Initially shortness and breath was only aggravated with climbing one or two flights of stairs but symptoms have progressively worsened and patient becomes short of breath even standing or walking short distances. There was no alleviating factors however previously symptoms were being controlled with daily morning albuterol nebulizer treatments. Patient denies any associated chest pain or dizziness. Patient reports an episode of COVID in December 2023. emergency department CBC unremarkable, chemistry unremarkable, urinalysis unremarkable, influenza screen negative, COVID negative, blood gas shows PO2 less than 45. Chest x-ray shows left lower lung pneumonia and minimal right lung base atelectasis. Upon arrival to the emergency department patient was placed on a BiPAP due to respiratory distress. 05/24/2024-patient was seen and examined at the bedside, still on BiPAP. Patient is able to speak, and says she feels much better than before. Patient says after COVID in December she developed severe bronchitis and she was on Solu-Medrol and albuterol, which did not help her much and later she had high fevers and shortness of breath which is when she came to the ED.Vitals afebrile pulse 76, RR 38 tachypneic , blood pressure 115/68, pulse oxygen 99 on BiPAP flow of 60. On ABG pH 7.47, pCO2 29, PO2 109.4, oxygen saturation 98.3. Sinppy495 potassium 4.1 BUN15 creatinine 0.5 GFR 114. We will closely monitor the patient. Automatic Lehr Operator consult noted waiting on the recommendation 05/25/24 patient was seen and examined and case discussed with RN and family by the bedside. She was breathing better today. She has been on BiPAP all night but now he was on 100% non-rebreather with further efforts to continue to wean the oxygen requirements down. 05/27/24 patient is seen and examined at bedside, acute events overnight, case discussed with the RN, BP 131/64, afebrile, saturating 96-97% via Ventimask, FiO2 40%. The patient admits cough productive of clear phlegm. Serology tests reviewed, HIV preliminary positive, discussed with the patient. 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 We will continue the patient on IV antibiotics, continue fluconazole, continue to follow Pulmonary and ID input and recommendations. After provided in the preliminary results of HIV test, she denies any suicidal or homicidal ideations. 05/28 patient has been seen and examined, no acute events overnight, case discussed with the RN, during my visit patient is sitting comfortably in the chair, hemodynamically stable, off Ventimask, currently on 10 L via nasal cannula, saturating 98%, tolerated BiPAP overnight. she feels better, less shortness a breath, still admits cough productive of yellow phlegm. No chest pain. Getting IV antibiotics during my visit. HIV P24 antigen, nonreactive. We will continue to follow Pulmonary and Infectious Disease input and recommendations. 05/29 patient has been seen and examined, no acute events overnight, case discussed with the RN, during my visit patient is sitting comfortably in the chair, hemodynamically stable, remains on 10 L via nasal cannula, saturating 98% , still admits cough productive of yellow phlegm. No chest pain. Getting IV antibiotics during my visit. HIV P24 antigen, nonreactive. Pending CD4 cell count. We will continue to follow Pulmonary and Infectious Disease input and recommendations. 05/30 the patient has been seen and examined, no acute events overnight, BP 114/66, during my visit she is on Ventimask, saturating 95%, FiO2 60%. Without the Ventimask the patient desaturates to the low 70s. Patient tolerating BiPAP during the night. Still admits cough productive of thick yellow phlegm, no chest pain. Results of CD4 cell count reviewed, discussed with the patient. We will continue broad-spectrum IV antibiotics. Continue to follow Pulmonary and Infectious Disease input and recommendations. 05/31 the patient has been seen and examined, upgraded to the ICU, during my visit she is sitting in the chair, BP 113/72, heart rate of 109, she is on Oxymizer, 30 L, FiO2 100%. She is alert oriented x3, still admits cough productive of thick yellow phlegm, no chest pain. Hemoglobin 12.9, hematocrit 36.6, WBC 14.6. ABG with pH 7.4, pCO2 40, PO2. Chest x-ray shows left lower l obe infiltrate consistent with pneumonia. She is getting IV antibiotics during my visit. Patient will remain in the ICU, continue to follow critical Care as well as infectious disease input and recommendations. 06/01 patient is seen and examined, sitting comfortable in chair, awake, following commands, remains on high-flow oxygen, FiO2 70%, 30 L, BP 117/67, heart rate of 78, respiratory rate of 30-36, saturating 100%, CBC with a hemoglobin 13.6, hematocrit 38.9, WBC 12.4. Platelet count of 341. Chest x-ray showing persistent left lung infiltrate, cardiac size and mediastinum unremarkable. The bony structures are within the normal limits. Patient getting IV antibiotics during my visit. Patient to continue with the high-dose steroids. Serology test positive for Pneumocystis sandra. Patient on Bactrim two tablets p.o. t.i.d.. Continue also doxycycline and cefepime IV. Continue to follow infectious disease input and recommendation. Continue to follow Pulmonary input and recommendations. 06/02 patient is seen and examined at bedside, currently in prone position, alert oriented x3. CPT started last night, she has started having more loose phlegm expectorated. BP 114/74, tachycardic 114, saturating 95%, high-flow nasal cannula, 30 L, FiO2 80%. CBC with a hemoglobin 16.9, hemoglobin 14 0, hematocrit 39.8, platelet count 347. Chest x-ray shows persistent left lung infiltrate. 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 Serology test for toxoplasma currently pending. Patient on IV antibiotics as well as high-dose steroids. Continue to follow infectious Disease and Pulmonary input and recommendations. 06/03 patient seen at bedside, no acute events overnight. She continues with respiratory distress, with increasing oxygen requirements. Critical Care has discussed a possible need for intubation if she does not improve. She has been started on steroids due to underlying PCP pneumonia. WBC improved from 16.9 down to 13.5, sodium stable at 132, same as yesterday, lactic acid downtrending from 4.1 down to 3.2, remainder of her labs are relatively unremarkable. 06/04 patient seen at bedside, no acute events overnight. She remains on high- flow nasal cannula, mildly tachycardic. WBC elevated at 13.3, sodium decreased from 132 down to 129, remainder of her labs are relatively unremarkable. Continue to wean supplemental oxygen. Further care per critical Care 06/05 patient seen at bedside, no acute events overnight. She remains on high- flow nasal cannula with BiPAP overnight and is still tachycardic. Heart rate ranging from 104 up to 113, WBC improved from 13.3 down to 11.1, sodium decreased from 120 down to 126, remainder of her labs are relatively unremarkable. We will continue to wean oxygen as able. 06/06 Patient seen at bedside, no acute events overnight. She remains on high- flow nasal cannula with BiPAP overnight and is still tachycardic. Heart rate ranging from 104 up to 122, WBC improved from 11.1 down to 10.6, sodium improved from 126 up to 129, remainder of her labs are relatively unremarkable. We will continue to wean oxygen as able. 06/07 patient seen at bedside, no acute events overnight. She is still on high- flow nasal cannula, RT advised to wean oxygen, currently saturating 100% on 30L. She is tachycardic, sodium decreased from 129 down to 123, likely secondary to Bactrim. Patient is asymptomatic, will continue with bactrim, if sodium continues to decrease consider a holiday from bactrim. 06/08 patient seen at bedside, no acute events overnight. She is still on high- flow nasal cannula, RT advised to wean oxygen, currently saturating 100% on 30L. She is tachycardic, sodium stable at 123, same as yesterday. Pending improvement in respiratory status 06/09 patient seen at bedside, he remains on high-flow nasal cannula, we will continue to wean as able, appreciate pulmonology assistance, tachycardic with heart rate ranging from 123 up to 130. She is still having low-grade fevers at 100.8. Sodium increased from 123 up to 130, remainder of her labs are relatively unremarkable. 06/10 patient is seen and examined at bedside, remains on high-flow oxygen, she feels mildly anxious, no chest pain. Still with a cough productive of white phlegm. Still tachycardic, heart rate 117-122. Patient is still spiking low- grade fever. Hemoglobin 10.9, hematocrit 30.5. Sodium remained low at 128, BUN and creatinine of 16 and 0.4. 06/11 patient is seen and examined at bedside, patient now on AVAPS, FiO2 100%, patient became restless last night, she had to be started on Precedex. During my visit she remains alert oriented x3, no chest pain. BP 120/48, she is saturating 100%. Hemoglobin 10 point, hematocrit 31.3. ABG shows persistent hypoxemia, with a PO2 of 69.4. Chest x-ray shows extensive infiltrates on the left which is stable to somewhat increased, there has been interval development of perihilar infiltrate on the right. Normal bilateral lower extremity venous Doppler ultrasound. Continue the patient on prednisone 20 mg p.o. daily, continue Bactrim two tablets p.o. t.i.d. as well as fluconazole 100 mg p.o. daily. 06/12 patient is seen and examined at bedside, intubated, on mechanical ventilation, per discussion with the RN, patient was in respiratory distress yesterday, decision made to intubate the patient. During my visit the patient is midazolam, fentanyl, patient paralyzed, also on Nimbex. She is in a prone position. On pressor support with phenylephrine. Also on Precedex. She is also on hydrocortisone 100 mg IV q.8 hours. Son at bedside, updated. ABG shows pH 7.38, pCO2 47, PO2 122, bicarb of 27.7. 06/13 patient is seen and examined at bedside, remains intubated, on mechanical ventilation, remains on midazolam, fentanyl, patient paralyzed, also on Nimbex. She is in a prone position. On BP pressor support with phenylephrine. Patient is peep of seven. ABG pH 7.34, PO2 72.3. Chest x-ray reviewed, increasing bilateral infiltrates, increasing pneumomediastinum. 06/14 patient is seen and examined at bedside, remains intubated, on mechanical ventilation, prone position, remains on midazolam, fentanyl, patient paralyzed, also on Nimbex. She is in a prone position. Off pressors. Patient is peep of seven. ABG pH 7.34, PO2 72.3. Chest x-ray shows extensive bilateral infiltrates unchanged, no pneumothorax. REVIEW OF SYSTEMS 12 point review of systems negative unless noted in HPI PHYSICAL EXAM GENERAL APPEARANCE: Patient intubated, on mechanical ventilation. NEUROLOGICAL: Cranial nerves II-XII grossly intact. Motor is 5/5 in bilateral upper and lower extremities proximal to distal. No sensory deficits. HEENT: Face is symmetric. Pupils are equal and reactive. Extraocular movements are intact. NECK: Supple. No JVD. No thyromegaly. No submental, submandibular, pre- /postauricular, occipital or supraclavicular lymphadenopathy. CHEST: Normal chest expansion. No Telemetry. LUNGS: Bilateral rhonchi, no expiratory wheezing CARDIOVASCULAR: Regular. S1 and S2 normal. No appreciable rubs, murmurs or gallops. ABDOMEN: Soft, nontender, and nondistended. There is no rebound, voluntary guarding, or rigidity. : Deferred. No Souza. EXTREMITIES: Non-edematous and not cyanotic. No clubbing. Good capillary refill. SKIN: No skin breakdown. Vital Signs (last 8hr) Date Time Temp Pulse Resp B/P (MAP) Pulse Ox O2 Delivery O2 Flow Rate FiO2 06/14/24 08:00 91 Ventilator+ 100 06/14/24 08:00 97.3 104 28 109/65 (80) 91 116/64 (81) 06/14/24 08:00 100 06/14/24 07:45 104 28 118/60 (79) 91 06/14/24 07:30 103 28 114/58 (76) 91 06/14/24 07:15 103 28 119/60 (79) 92 06/14/24 07:00 100 28 114/59 (77) 91 06/14/24 06:54 105 28 06/14/24 06:40 108 100 06/14/24 02:18 124 100 06/14/24 01:58 115 26 LABS: Laboratory: Test 06/14/24 04:20 06/14/24 04:18 06/12/24 11:31 Range/Units Blood Gas Specimen Type Arterial Arterial Blood pH 7.336 L 7.350-7.450 Arterial Blood Partial Pressure CO2 69 *H 32-45 mmHg Arterial Blood Partial Pressure O2 73.8 L 83.0-108.0 mmHg Arterial Blood HCO3 36.0 H 21.0-28.0 mmol/L Arterial Blood Oxygen Saturation 94.0 94.0-98.0 % Arterial Blood Base Excess 8.2 H -2.0-3.0 mmol/L Hemoglobin (Blood Gas) 10.7 L 12.0-16.0 g/dL Sodium (Blood Gas) 129 L 136-145 MMOL/L Bedside Potassium (Blood Gas) 4.0 3.4-4.5 MMOL/L Bedside Chloride (Blood Gas) 93 L 98-107 MMOL/L Bedside Glucose (Blood Gas) 157 H 65-95 MG/DL Bedside Ionized Calcium (Blood Gas) 1.09 L 1.15-1.33 MMOL/L Bedside Lactic Acid (Blood Gas) 1.65 H 0.36-0.75 MMOL/L Blood Gas Temperature 37.0 35.5-37.0 CELSIUS Blood Gas Respiration Rate 26.0 min. Blood Gas Vent Mode AC VC ROOM AIR FiO2 100.0 % Blood Gas Tidal Volume 425 ml Blood Gas PEEP 5 cm H2O Blood Gas Specimen Comment JOE RN ,AL White Blood Count 3.0 L 4.8-10.8 K/uL Red Blood Count 2.63 L 4.00-5.50 MIL/uL Hemoglobin 8.6 L 12.0-16.0 g/dL Hematocrit 25.4 L 36-48 % Mean Corpuscular Volume 96.6 79-99 fL Mean Corpuscular Hemoglobin 32.7 27.0-33.0 pg Mean Corpuscular Hemoglobin Concent 33.9 32.0-36.0 g/dL Red Cell Distribution Width 11.8 11.0-15.5 % Platelet Count 132 130-400 K/uL Mean Platelet Volume 10.0 7.5-10.5 fL Immature Granulocyte % (Auto) 0.3 0-1 % Neutrophils (%) (Auto) 90.5 H 40.0-77.0 % Lymphocytes (%) (Auto) 6.6 L 21.0-51.0 % Monocytes (%) (Auto) 2.6 L 3.0-13.0 % Eosinophils (%) (Auto) 0.0 0.0-8.0 % Basophils (%) (Auto) 0.0 0.0-5.0 % Neutrophils # (Auto) 2.8 1.8-7.7 K/uL Lymphocytes # (Auto) 0.2 L 1.0-4.8 K/uL Monocytes # (Auto) 0.1 0.1-1.0 K/uL Eosinophils # (Auto) 0.00 0.00-0.70 K/uL Basophils # (Auto) 0.00 0.00-0.20 K/uL Absolute Immature Granulocyte (auto 0.01 0-1 K/uL Segmented Neutrophils % 90 H 40-70 % Band Neutrophils % 1 0-2 % Lymphocytes % (Manual) 7 L 22-44 % Monocytes % (Manual) 2 2-9 % Nucleated Red Blood Cells 0.0 0.0-0.19 % Differential Comment MANUAL DIFFERENTIAL White Cell Morphology Comment SMUDGE CELLS 1+ Platelet Morphology Comment ADEQUATE Red Blood Cell Morphology HYPOCHROM CELLS 1+ Sodium Level 132 L 136-145 mmol/L Potassium Level 4.1 3.5-5.1 mmol/L Chloride Level 95 L 101-111 mmol/L Carbon Dioxide Level 37 H 21-32 mmol/L Blood Urea Nitrogen 17 7-18 mg/dL Creatinine 0.5 0.5-1.0 mg/dL Glomerular Filtration Rate Calc 114 >90 mL/min Random Glucose 157 H 70-105 mg/dL Total Calcium 7.6 L 8.5-10.1 mg/dL Total Bilirubin 0.1 L 0.2-1.0 mg/dL Aspartate Amino Transf (AST/SGOT) 22 10-37 U/L Alanine Aminotransferase (ALT/SGPT) 34 12-78 U/L Alkaline Phosphatase 104 50-136 U/L Total Protein 5.0 L 6.0-8.3 g/dL Albumin 1.4 L 3.5-5.0 g/dL Whole Blood Glucose 163 H 70-110 MG/DL Current Medications Medications (Trade) Dose Ordered Sig/Julita Route PRN Reason Start Time Stop Time Status Last Admin Dose Admin Acetaminophen (TYLenol 650MG ELIXIR) 650 mg Q6H PRN PO MILD PAIN (1-3) 06/04/24 08:30 07/04/24 08:29 06/10/24 20:07 650 MG Acetaminophen (TYLenol 650MG SUPPOSITORY) 650 mg Q6H PRN RC MILD PAIN (1-3) 05/23/24 20:30 06/22/24 20:29 Acetylcysteine (MUComyst 20% 4ML) 400mg = 2ml [id number] IH 06/02/24 00:00 06/05/24 15:52 DC 06/05/24 11:35 200 MG Albuterol (DUOneb) 1 udvial [id number] IH 05/24/24 00:00 06/10/24 10:28 DC 06/10/24 06:45 1 UDVIAL Alprazolam (XANax 0.5MG) 0.5 mg Q8H PRN PO ANXIETY 06/10/24 13:30 07/10/24 13:29 06/11/24 05:22 0.5 MG Artificial Tears (Artificial Tears) 1 DROP OR AD Q8H OU 06/11/24 14:30 07/11/24 14:29 06/14/24 06:14 1 DROP Azithromycin 250 ml @ 250 mls/hr Q24H IVPB 05/24/24 17:00 05/24/24 14:41 DC Azithromycin 250 ml @ 250 mls/hr Q24H STAT IVPB 05/23/24 17:17 05/24/24 14:41 DC 05/23/24 17:45 250 MLS/HR Benzocaine (Cepacol Sore Throat Lozenge) 1 each Q4H PRN MM SORE THROAT 06/08/24 10:00 07/08/24 09:59 06/09/24 07:44 1 EACH Bisacodyl (DulcoLAX) 10 mg DAILY PRN RC CONSTIPATION 06/08/24 14:00 07/08/24 13:59 06/09/24 17:22 10 MG Cefepime HCl (MAXipime 2 gm vial) 2 gm Q12H IVPB 05/24/24 15:00 06/03/24 14:59 DC 06/03/24 03:18 2 GM Ceftriaxone Sodium (ROCEphine 1G INJ) 1 gm Q24H IVPB 05/24/24 17:30 05/24/24 14:41 DC Chlorhexidine Gluconate (Peridex) 15 ml Q6H MM 06/07/24 17:00 06/11/24 14:27 DC 06/10/24 12:22 15 ML Chlorhexidine Gluconate (Peridex) 15 ml Q8H MM 06/11/24 14:30 06/25/24 14:29 06/14/24 06:13 15 ML Cisatracurium Besylate (Nimbex) ONCE IVP 06/11/24 14:30 06/11/24 15:57 DC Cisatracurium Besylate 100 mg/ Sodium Chloride 100 ml @ 0 mls/hr PROTOCOL IV 06/11/24 23:30 07/11/24 23:29 06/14/24 06:24 10.4 MLS/HR Clotrimazole (Mycelex) 10 mg TID MM 06/04/24 21:00 06/14/24 08:39 DC 06/13/24 20:28 10 MG Dexmedetomidine/ Sodium Chloride (PRECEdex 400MCG/ 100ML-NS) 400 mcg PROTOCOL IV 06/10/24 19:30 07/10/24 19:29 06/12/24 06:32 400 MCG Dobutamine HCl/ Dextrose 250 ml @ 0 mls/hr PROTOCOL IV 06/12/24 16:30 06/12/24 16:53 DC Doxycycline Hyclate 250 ml @ 125 mls/hr Q12H IV 05/24/24 16:30 06/03/24 16:29 DC 06/03/24 04:23 125 MLS/HR Enoxaparin Sodium (Lovenox 80mg) 80 mg BID SQ 06/11/24 09:00 07/11/24 08:59 06/14/24 08:46 80 MG Enoxaparin Sodium (Lovenox) 40 mg Q24H SQ 05/23/24 21:00 06/11/24 04:36 DC 06/10/24 20:07 40 MG Famotidine (Pepcid 20mg Vial) 20 mg DAILY IV 05/24/24 09:00 06/14/24 08:39 DC 06/13/24 08:15 20 MG Fentanyl/Sodium Chloride 250 ml @ 0.1 mls/hr PROTOCOL IV 06/12/24 00:00 06/17/24 00:00 06/13/24 17:57 0.1 MLS/HR Fluconazole (DiFLUCan 100 mg TAB) 200 mg DAILY PO 06/05/24 09:00 07/05/24 08:59 06/14/24 08:45 200 MG Fluconazole/ Sodium Chloride 100 ml @ 100 mls/hr DAILY IV 05/26/24 09:00 05/27/24 15:57 DC 05/27/24 09:07 100 MLS/HR Furosemide (LASix 20MG VIAL) 20 mg DAILY IV 05/31/24 09:00 06/07/24 13:18 DC 06/03/24 08:38 20 MG Furosemide (LASix 20MG VIAL) 20 mg Q12H IV 06/11/24 11:00 06/13/24 09:31 DC 06/12/24 21:54 20 MG Furosemide (LASix 20MG VIAL) 20 mg Q8H IV 06/13/24 09:30 07/13/24 09:29 06/14/24 08:45 20 MG Ganciclovir Sodium 430 mg/ Sodium Chloride 100 ml @ 100 mls/hr Q12H IV 06/13/24 09:00 07/13/24 08:59 06/14/24 08:59 100 MLS/HR Ganciclovir Sodium 500 mg/ Sodium Chloride 100 ml @ 100 mls/hr Q12H IV 06/11/24 18:00 06/11/24 15:48 DC Ganciclovir Sodium (Ganciclovir Sodium) 500 mg Q12H IV 06/12/24 17:00 06/13/24 08:35 DC Guaifenesin/ Dextromethorphan (RobiTUSSin DM 200/20MG 10ML) 10 ml Q4H PRN PO COUGH 05/23/24 20:30 06/22/24 20:29 06/10/24 20:07 10 ML Hydrocortisone Sodium Succinate (Solu-corTEF 100MG) 100 mg Q8H IV 06/11/24 05:00 06/14/24 08:39 DC 06/14/24 06:13 100 MG Hydroxyzine HCl (ATArax 25MG TAB) 25 mg TID PRN PO ITCHING 06/10/24 14:00 07/10/24 13:59 06/11/24 05:22 25 MG Ipratropium [place] (AtrovENT UD) 0.5 MG [id number] IH 06/10/24 14:00 07/10/24 13:59 06/14/24 06:54 0.5 MG Lactated Ringer's (Lactated Ringers 1000ml) 500 ml ONCE IV 06/02/24 20:00 06/02/24 19:54 DC Levofloxacin/ Dextrose 100 ml @ 100 mls/hr Q24H IV 05/24/24 15:00 05/24/24 16:16 DC Magnesium Sulfate 50 ml @ 0 mls/hr PROTOCOL PRN IV hypomagnesemia 05/28/24 08:00 06/27/24 07:59 06/11/24 05:26 50 MLS/HR Meropenem (Merrem) 1 gm Q8H IVPB 06/11/24 15:00 06/13/24 11:52 DC 06/13/24 08:14 1 GM Meropenem (Merrem) 1 gm Q8H IVPB 06/13/24 15:00 06/21/24 14:59 06/14/24 06:13 1 GM Meropenem 1 gm/ Sodium Chloride 100 ml @ 33.333 mls/ hr Q8H IV 06/11/24 14:30 06/11/24 14:28 DC Methylprednisolone Sodium Succinate (Solu-medROL 40MG) 20 mg Q12H IVP 06/05/24 07:00 06/09/24 09:13 DC 06/09/24 07:25 20 MG Methylprednisolone Sodium Succinate (Solu-medROL 40MG) 40 mg Q12H IVP 05/28/24 18:00 05/29/24 16:45 DC 05/29/24 05:32 40 MG Methylprednisolone Sodium Succinate (Solu-medROL 40MG) 40 mg Q6H IVP 05/29/24 16:30 06/04/24 16:44 DC 06/04/24 11:13 40 MG Methylprednisolone Sodium Succinate (Solu-medROL 40MG) 40 mg Q6H IVP 06/04/24 18:00 06/05/24 00:24 DC 06/04/24 23:48 40 MG Methylprednisolone Sodium Succinate (Solu-medROL 40MG) 40 mg Q8H IVP 05/24/24 01:00 05/25/24 21:51 DC 05/25/24 17:28 40 MG Methylprednisolone Sodium Succinate (Solu-medROL 40MG) 60 mg Q6H IVP 05/25/24 22:00 05/28/24 02:25 DC 05/27/24 23:55 60 MG Methylprednisolone Sodium Succinate (Solu-medROL 40MG) 60 mg Q6H IVP 05/28/24 06:00 05/28/24 08:27 DC 05/28/24 06:47 60 MG Methylprednisolone Sodium Succinate (Solu-medROL 40MG) 60 mg Q6H IVP 06/11/24 02:30 06/11/24 04:23 DC 06/11/24 02:46 60 MG Methylprednisolone Sodium Succinate (Solu-medROL 125MG) 80 mg Q8H IVP 06/14/24 09:00 07/14/24 08:59 06/14/24 08:48 80 MG Metronidazole/ Sodium Chloride (flaGYL) 500 mg Q8H IV 05/25/24 22:00 05/25/24 21:56 DC Midazolam HCl 50 ml @ 0 mls/hr AD PRN IV TITRATE 06/12/24 01:30 06/12/24 08:30 DC 06/12/24 02:30 10 MLS/HR Midazolam HCl 100 ml @ 0 mls/hr AD PRN IV TITRATE 06/12/24 09:00 07/12/24 01:29 06/13/24 20:31 0 MLS/HR Morphine Sulfate (morPHINE 4MG SYG) 4 mg Q4H PRN IM RESPIRATORY SYMPTOMS 06/11/24 03:30 06/18/24 03:29 06/11/24 03:27 4 MG Ondansetron HCl (zoFRAN 4MG INJ) 4 mg Q6H PRN IV NAUSEA/VOMITING 05/23/24 20:30 06/22/24 20:29 Pantoprazole Sodium (PROTonix 40MG INJ) 40 mg BID IVP 06/12/24 21:00 07/12/24 20:59 06/14/24 08:44 40 MG Pharmacy Profile Note (Pharmacy Communication) 1 each ONCE MISC 06/11/24 14:30 06/11/24 15:53 DC Pharmacy Profile Note (Pharmacy Communication) 1 each ONCE MISC 06/11/24 20:30 06/11/24 20:14 DC Pharmacy Profile Note (Pharmacy Communication) 1 each ONCE MISC 06/12/24 17:00 06/12/24 17:07 DC Phenylephrine HCl 10 mg/Sodium Chloride 251 ml @ 0 mls/hr AD PRN IV DIRECTED 06/11/24 03:00 06/12/24 18:12 DC 06/12/24 14:10 47 MLS/HR Phenylephrine HCl 50 mg/Sodium Chloride 250 ml @ 0 mls/hr PROTOCOL PRN IV PROTOCOL 06/12/24 18:00 07/12/24 17:59 06/13/24 08:57 12.45 MLS/HR Potassium Chloride 100 ml @ 100 mls/hr AD PRN IV POTASSIUM PROTOCOL 05/28/24 08:00 06/27/24 07:59 Potassium Chloride (K-Dur/Klor-Con 20meq) 20 meq AD PRN PO POTASSIUM PROTOCOL 05/28/24 08:00 06/27/24 07:59 Potassium Chloride (KCl 10% Elixir 20meq/15ml) 20 meq AD PRN PO POTASSIUM PROTOCOL 05/28/24 08:00 06/27/24 07:59 Prednisone (deltaSONE/ oraSONE 20MG TAB) 20 mg DAILY PO 06/10/24 09:00 06/14/24 08:39 DC 06/13/24 08:15 20 MG Rocuronium [place] (ZemuRON) 10 mg Q1H PRN IV RESP DISTRESS/VENT DISYNCHRONY 06/11/24 20:30 06/11/24 23:29 DC 06/11/24 20:33 10 MG Sodium Chloride 500 ml @ 500 mls/hr Q1H IV 06/02/24 20:00 06/02/24 20:59 DC 06/02/24 21:34 500 MLS/HR Sodium Chloride 1,000 ml @ 75 mls/hr [id number] IV 06/07/24 13:30 06/10/24 17:02 DC 06/10/24 09:05 75 MLS/HR Sodium Chloride (Sodium Chloride) 1,000 mg BIDAC PO 06/07/24 16:30 06/09/24 07:28 DC 06/08/24 16:58 1,000 MG Sodium Chloride (Sodium Chloride) 1,000 mg BIDAC PO 06/09/24 07:30 06/12/24 16:35 DC 06/12/24 12:30 1,000 MG Sodium Chloride (Sodium Chloride) 1,000 mg Q12H PO 06/12/24 21:00 07/09/24 07:29 06/14/24 08:47 1,000 MG Sodium Zirconium Cyclosilicate (Lokelma) 5 gm DAILY10 PO 06/08/24 10:30 06/10/24 10:29 DC 06/08/24 10:50 5 GM Trimethoprim/ Sulfamethoxazole (BactRIM DS) 1 tab BID PO 05/26/24 21:00 05/29/24 16:18 DC 05/29/24 08:07 1 TAB Trimethoprim/ Sulfamethoxazole (BactRIM DS) 2 tab TID PO 05/29/24 16:30 06/05/24 20:59 DC 06/05/24 14:55 2 TAB Trimethoprim/ Sulfamethoxazole (BactRIM DS) 2 tab TID PO 06/06/24 09:30 06/11/24 21:54 DC 06/10/24 13:58 2 TAB Trimethoprim/ Sulfamethoxazole 320 mg/Dextrose 500 ml @ 500 mls/hr Q8H IV 06/11/24 22:30 06/12/24 16:35 DC 06/12/24 06:39 500 MLS/HR Trimethoprim/ Sulfamethoxazole 320 mg/Dextrose 500 ml @ 500 mls/hr Q8H IV 06/12/24 18:00 06/13/24 11:13 DC 06/13/24 05:30 500 MLS/HR Trimethoprim/ Sulfamethoxazole 320 mg/Dextrose 500 ml @ 500 mls/hr Q8H IV 06/13/24 13:30 06/23/24 13:29 06/14/24 06:14 500 MLS/HR Valganciclovir (ValGANCIClovir HCL) 900 mg BID PO 06/11/24 21:00 06/13/24 08:37 DC DIAGNOSTICS / RADIOLOGY: [ ] ASSESSMENT: Acute hypoxemic respiratory failure, POA Bilateral lower lobe bacterial pneumonia + MRSA POA, +Azra Suspected PCP PNA based on CT findings vs viral/Atypical PNA . POA HIV positive (preliminary report, confirmatory test nonreactive) POA Normocytic anemia, not POA Neutrophilia, POA Hyperglycemia, POA Obesity BMI of 32.3 Former smoker Acute cystitis, POA Fatty liver, POA Moderate hypoalbuminemia POA Previous COVID-19 infection Pneumomediastinum PLAN: Continue ICU Patient intubated, mechanical ventilation Continue blood pressure support, wean as tolerated Continue fentanyl, continue Nimbex. Continue to follow critical care input recommendation Continue the patient on Bactrim fluconazole. Continue the patient on prednisone p.o. Continue to follow infectious disease input and recommendation Continue to follow chest x-ray Continue to follow ABG Continue bronchodilators per respiratory therapist Replace electrolytes IV per protocol A.m. labs GI and DVT prophylaxis. Further orders to follow based on the above results Disposition: Remains admitted to the ICU, pending improvement clinical condition. Prognosis is poor guarded. Total ICU time spent greater than 30 minutes. GAIL WALDRON MD Jun 14, 2024 09:08
--- NOTE | 2024-06-14 09:09 | HMCIMG ---
CHEST 1VW REASON: LOW SP02 COMPARISON: 06/13/2024 FINDINGS: There are extensive bilateral infiltrates consistent with edema or ARDS. These appear unchanged. Heart size is stable. There is no pneumothorax. Pneumomediastinum has resolved nearly completely. ET, NG and right IJ central line remain in good position. IMPRESSION: 1. Extensive bilateral infiltrates unchanged. 2. Interval resolution of pneumomediastinum.
--- NOTE | 2024-06-14 09:43 | HMCIMG ---
CHEST 1VW REASON: intubated COMPARISON: 06/14/2024 FINDINGS: There are extensive bilateral infiltrates which are unchanged. Tubes and lines remain in good position. There is no pneumothorax. IMPRESSION: 1. Extensive bilateral infiltrates unchanged.
--- NOTE | 2024-06-14 14:03 | NUR ---
Nutrition f/u Reviewed labs, notes, and medications. Pt intubated, sedated, diuretics, elevated CO2 69, hyponatremia 132, hyperglycemia 157, hypocalcemia 7.6, vit. D 9.1, hypocalcemia 7.6 per chart review. Communicated with nursing. Nurse reported Pt off pressors, with paralytics, OGT in place, to continue trickle feeds per Pt in prone position. Observed MAP at 100, TF off during visit, IV fluid @ 5 ml/hr, suction residual of 800 ml during visit. IV fluid @ 5ml/hr provides 120 ml per day. Inconsistent wts since admin. Continue trickle feeds of Vital AF 1.2 if Pt on pressors and CO2 elevated. Provide goal rate of Vital AF 1.2 @ 50 ml/hr x 22 hrs once Pt off pressors, CO2 WNL, not on prone position goal rate to provide 77% of kcal needs, 100% of protein needs, Monitor extubation and position of patient. Recommendations: -CONTINUE TRICKLE FEEDS of Vital AF 1.2 @ 25 ml/hr x 22 hrs + 150Q4H Provides: 660kcals, 41 gm pro, 1346 ml per day -Provide Vital AF 1.2 @ 50 ml/hr x 22 hrs + 150 Q4H ONCE MEDICALLY FEASIBLE Provides: 1320 kcals, 82 gm pro, 1492 ml per day -Monitor BM -If no BM >3 days consider stool softener -Monitor electrolytes -Replenish electrolytes per protocol -Monitor wts -Reweigh as able -Provide vit. D supplement per vit. D 9.1 -Provide MVI QD -Monitor TF tolerance + need for TF adjustment -Monitor goals of care RD to follow + available for consult per protocol Addendum: 06/14/24 at [address] Amended: Links added.
[2024-06-14] MEDS: BALSAM PERU/CASTOR OIL 60 GM TUBE TP SCH (14:40)
[2024-06-14] MEDS: Solu-medROL 40MG VIAL IVP SCH (17:23)
[2024-06-15] VITALS (92 sets, daily range): BP systolic 103–143; BP diastolic 59–80; PULSE 89–111; RESP 26–36; TEMP 97.6–98.9; O2SAT 94–100
[2024-06-15 03:59] LABS: ABG BASE EXCESS 6.9 mmol/L (-2.0-3.0); ABG HCO3 34.8 mmol/L (21.0-28.0); ABG OXYGEN SATURATION 97.1 % (94.0-98.0); ABG PCO2 63 mmHg (32-45); ABG PH 7.359 (7.350-7.450); DEVICE COMMENT ALINE; PO2, ARTERIAL BG 98.8 mmHg (83.0-108.0); VENT MODE, BG AC (ROOM AIR)
[2024-06-15 04:20] LABS: HEMATOCRIT 26.6 % (36-48); IMMATURE GRANULOCYTE ABSOLUTE 0.01 K/uL (0-1); LYMPHOCYTES # (AUTO) 0.1 K/uL (1.0-4.8); LYMPHOCYTES % (AUTO) 4.1 % (21.0-51.0); MEAN CORPUSCULAR HEMOGLOBIN 32.6 pg (27.0-33.0); MEAN CORPUSCULAR HGB CONC 33.8 g/dL (32.0-36.0); MEAN CORPUSCULAR VOLUME 96.4 fL (79-99); MONOCYTES % (AUTO) 1.6 % (3.0-13.0); NEUTROPHILS # (AUTO) 2.3 K/uL (1.8-7.7); NEUTROPHILS % (AUTO) 93.9 % (40.0-77.0); PLATELET COUNT (AUTO) 125 K/uL (130-400); RED BLOOD CELL COUNT(AUTO) 2.76 MIL/uL (4.00-5.50); RED CELL DISTRIBUTION WIDTH 11.4 % (11.0-15.5); WHITE BLOOD COUNT (AUTO) 2.5 K/uL (4.8-10.8)
[2024-06-15 04:42] LABS: ALBUMIN 1.4 g/dL (3.5-5.0); CREATININE 0.4 mg/dL (0.5-1.0); MAGNESIUM 2.2 mg/dL (1.80-2.40); POTASSIUM 4.2 mmol/L (3.5-5.1)
[2024-06-15 05:08] LABS: BILIRUBIN,TOTAL 0.1 mg/dL (0.2-1.0)
--- NOTE | 2024-06-15 08:48 | HMCIMG ---
Exam Type: CHEST 1VW Clinical Information: intubated Comparison: June 14, 2024 Findings and impression: Severe consolidation of both lungs are again seen, unchanged. Only interval development is pneumomediastinum, moderate to severe.
[2024-06-15] MEDS ORDERED: ENOXAPARIN SODIUM 80 MG/0.8 ML SQ SCH (09:00)
--- NOTE | 2024-06-15 09:59 | PN ---
[facility] PROGRESS NOTE Date Patient Seen: Jun 15, 2024 Time of Visit: 09:58 Supervising Physician: Satya Lundberg MD Primary Care Physician: Stu Foss MD Outpatient Specialists: Inpatient Consults: Pulmonology PROBLEM LIST: Severe ARDS Acute hypoxemic respiratory failure s/p intubation 06/11/24 requiring proning Bilateral lower lobe bacterial pneumonia + MRSA POA, +Azra Confirmed PCP PNA per Ag (serology), POA Pneumomediastinum on x-ray 06/12/24 Concern for disseminated CMV Elevated DDIMER r/o PE & DVT New HIV/AIDS positive POA Hyponatremia and hyperkalemia, suspected Bactrim induced Normocytic anemia, not POA Neutrophilia, POA Hyperglycemia, POA Obesity BMI of 32.3 Former smoker Fatty liver, POA Moderate hypoalbuminemia POA Previous COVID-19 infection INTERVAL HISTORY: 06/10/2024: At the time of my evaluation, the patient was lying in bed. Per the patient report, she had a anxiety episode overnight. He is awake alert and oriented x4. She remains intermittently febrile most recent 100.8. On a monitor, the patient is normotensive without any pressor support. She remains tachycardic up in the 120s. The patient remains on oxygenation with high-flow nasal cannula 30 L/70% FiO2 and denies any hypoxemic event. She continues to feed orally, no complaint of nausea vomiting or diarrhea. The patient reports voiding without difficulty. Intake and output shows a intake of 2006 units 60.0, output of 2500 and a positive balance of 160.0. Laboratory data review of significance showed no changes of concern on CBC, chemistry panel of significance showed a sodium count of 128, potassium of 3.8, chloride of 93 and the remaining parameters were unremarkable. Blood cultures showing no growth. A chest CT was ordered and is pending. No other complaint. 06/11/24: 02:07 RN called. Reports patient is tachypneic, RR 30s-40s bpm. On BiPAP at 100% FiO2,12/6, rate 16 bpm. Patient was changed to AVAPS and ABGs were redrawn, pH 7.413, PO2 69.4, pCO2 42.4. The patient is on Precedex but she had to go down on Precedex due to hypotension. RN reports that patient is not sedated with Precedex due to having to slow down hypotension. Added Mario- Synephrine IV drip. 03:38 RN called that patient remains tachypneic. Lasix 40 mg IV x1 dose ordered, Solu-Medrol IV 60 IV q.6, BNP, and D-dimer were ordered. I went to assess the patient at bedside. I explained to the patient and significant other at bedside the ABGs results. I informed that the patient is tachypneic, RR 44 bpm, tachycardic 123, and ABGs showed hypoxia at 69.4. I spent a lengthy amount of time educating the patient on her guarded/critical condition. They verbalized understanding. Both of them report that they are not ready for intubation, but we will allow intubation if does not improve. I showed them of the retractions that the patient has and the abdominal breathing. They verbalized understanding and continued to request to hold on intubation for now. Per chart review CTA on 05/24/2024 was negative for a PE. Bilateral pulmonary infiltrates with segmental atelectasis. Two days BNP was WNL. D-dimer was 4641. 06/11/24 AM rounds: Patient's oxygenation status not improving on BiPAP with the FiO2 100%. Saturating 88-89% patient appears tachypneic pale and tachycardic. Spoke to patient and informed of need for intubation. Patient requested to wait for her son to be at bedside. once son was at bedside informed them of the need for intubation and risks and benefits. In order to alleviate some of the pt's anxiety and fear of intubation we has son at her side until sedated prior to intubation in which then son stepped out and patient was intubated per Dr. Lundberg. Still on the ventilator patient is saturating 89%, ventilator settings adjusted to assist control volume control tidal volume 500 respiratory rate of 18 FiO2 of 100% and PEEP of 10, plateau pressure 23. Decision was made for proning. Added Nimbex as a paralyzing agent per protocol drip. Informed pt's son on need for a central line due to patient requiring multiple drips. Sodium in agreement. Otherwise on CBC similar to yesterday, chemistry kidneys are doing well with a creatinine of 0.6 with a GFR of 109 sodium has improved to 130 potassium 3.8 chloride of 94 BUN of 30. OG tube to be placed and start tube feedings. Pt with multiple mouth sores concern for herpes simplex. V alganciclovir 900 mg p.o. b.i.d. started per pharmacy to dose. 06/12/24-patient assessed in room two eight in the ICU, patient is sedated and paralyzed with Nimbex drip, fentanyl and Versed. She is hemodynamically stable. On mechanical ventilation on assist-control volume control tidal volume 500 respiratory rate of 24 FiO2 of 60% with a PEEP of 10 saturating 99%. Pt was prone that 20:00 yesterday and is due for supine position at noon today. Urine output 3.9 L with a-1.4 L balance. CBC unremarkable. Chemistries sodium is 131 chloride 95 carbon dioxide 33 BUN 28 creatinine 0.5 and GFR of 114, glucose 156 mg/dL. Total calcium 8.0 albumin of 1.7. With a calcium correction for hypoalbuminemia of 9.8 mg/dL. ABG for this morning with a pH of 7.36 pCO2 of 47, PO2 of 122 on FiO2 of 80% and bicarb of 27.7. Chest x-ray shows interval development of pneumomediastinum as well as subcut aneous consistent with a emphysema in the neck. Tubes and all lines appear in good position there are diffuse bilateral infiltrates which otherwise unchanged. 06/13/24- patient is in the ICU critically ill w/ grim prognosis. She is currently prone saturating in the low 90s and sinus tachycardic 116 BPM. Blood pressure is 115/82 with respiratory rate of 24 on the vent currently sedated and paralyzed with fentanyl, Versed drip and Nimbex gtt per protocol. Urine output was 4.7 L in the last 24 hours with a balance of -3.6 L.On laboratory sodium is 132 potassium is 4.0 chloride of 98 carbon dioxide of 31, BUN 27 creatinine of 0.4 with a GFR of 121 improved from yesterday glucose 141 mg/dL albumin 1.5. Chest x-ray four this morning with a increased bilateral pulmonary infiltrates, increasing pneumomediastinum, tubes and lines are in good position. There is no pneumothorax. Latest ABGs with a pH of 7.34 with a pCO2 of 55 PO2 of 72.3 bicarb of 29.5 and ABGs saturation of 93.5. PF ratio 72. Patient remains prone to optimize oxygenation. Plateu pressures have increased to above 30. Ventilator changes as follows: Tidal volume of 425 respiratory rate of 26 FiO2 100% and PEEP of 7 with plateau pressure goals of less than 30. I have spoken to the son at the bedside and updated him on current clinical findings. I discussed code status with patient's son. For now patient remains full code. 06/14/24-patient continues critically ill, with poor prognosis. She continues sedated paralyzed and intubated. Currently on drips of fentanyl at 150 mcg per hour and Versed and 9mg per hour and Nimbex of 2 micrograms/kg/min. Patient is prone and intubated latest ABGs: PH of 7.33, pCO2 of 69 PO2 of 73.8 and bicarb of 36 base excess 8.2. Ventilator adjusted to ACVC tidal volume of 450 respiratory rate of 28 FiO2 of 100% and PEEP of 10. We will repeat ABG in a couple of hours. She is off pressors blood pressure 109/65 with a map of 80 heart rate of 104 improved from yesterday respiratory rate of 28 on the ventilator saturating 91% with a FiO2 of 100% on the vent. She has been afebrile with a T-max of 99.1 in the last 24 hours and a T low of 97.3. Urine output has decreased to 1 L in the last 24 hours and balance is positive 829 mL. On laboratory WBCs decreased to three H&H 8.6/25.4 platelet count is normal 132 K neutrophils of 90.5 decreasing. Sodium 132 similar to yesterday with a chloride of 95 carbon dioxide 37 BUN of 17 creatinine 0.5 GFR 114 glucose of 157 mg/dL total calcium of 7.6 pseudo hypocalcemia secondary to hypoalbuminemia 1.4 total protein 5.0. On chest x-ray diffuse pulmonary infiltrates oriented to bilateral lungs multilobular. Patient's prognosis is grim I have spoken to son yesterday regarding to code status as for now patient remains full code. 06/15/24- No major overnight events. Pt continues prone. Intubated, sedated and paralyzed. Drips: Fentanyl at 150mcg/hr, Versed 9 mg/HR and Nimbex at 2 mcg/kg/min. We will allow some permissive hypercapnia if needed, as a lung p rotective ventilation strategy. ABG shows: PH of 7.35 pCO2 of 63 PO2 of 98 trend bicarb of 34.8. Vent settings adjusted to: ACVC FIO2 of 100, Tv 425, Peep of 8. Went down on the PEEP to 8 due to CXR w/ worsening pneumomediastinum. On chest x-ray patient continues with severe consolidation of both lungs are again seen. Unchanged serially. WBCs are 2.5 today H&H is 9/26.6 with a platelet count of 125 K. chemistries sodium is 134 chloride of 95 with a carbon dioxide of 39 BUN of 16 and creatinine of 0.4 with a GFR of 121. Glucose 168 mg/dL total calcium 7.5 total bili 0.1 total protein of 5.0 albumin of 1.4. Pt continues with tube feedings and is tolerating them well. I spoke to son who was at bedside, informed him that there has not been improvement in the last 24 hours despite the effort and extreme measures such as proning and paralyzing. I answered all his questions and verbalized that he understands. That he is taking it one day at a time. Pt remains full code. REVIEW OF SYSTEMS: Unable to obtain ROS from patient due to patient's medical condition. PHYSICAL EXAM: GENERAL: Sedated and intubated, currently prone HEENT: Sclera non icteric, dry scabs and sores to mucosa, sore to rt cheek NECK: short neck no JVD, trachea midline LUNGS: diminished to bilateral breath sounds no wheezing. HEART: Regular rate and rhythm. Normal S1 and S2, without murmurs ABD: Abdomen soft, nontender. Bowel sounds present EXT: No clubbing cyanosis or edema, sore to sacral area, NEURO: Intubated sedated and paralyzed. Vital Signs (last 8hr) Date Time Temp Pulse Resp B/P (MAP) Pulse Ox O2 Delivery O2 Flow Rate FiO2 06/15/24 09:47 94 28 06/15/24 09:45 94 100 06/15/24 08:00 96 Ventilator+ 100 06/15/24 08:00 100 06/15/24 08:00 97.9 109 28 112/61 (78) 96 112/68 (83) 06/15/24 07:30 94 28 113/59 (77) 96 06/15/24 07:13 98 100 06/15/24 07:00 94 28 118/61 (80) 97 06/15/24 04:45 98 28 103/64 (77) 96 06/15/24 04:30 100 28 115/63 (80) 96 06/15/24 04:15 100 28 118/62 (80) 96 06/15/24 04:00 98 29 115/61 (79) 96 06/15/24 03:46 99 28 121/64 (83) 96 117/66 (83) 06/15/24 03:45 99 28 119/62 (81) 96 06/15/24 03:30 99 28 115/61 (79) 96 06/15/24 03:15 99 28 118/64 (82) 96 06/15/24 03:00 97 Ventilator+ 100 06/15/24 03:00 100 28 114/62 (79) 96 06/15/24 03:00 100 06/15/24 02:46 98 28 103/63 (76) 96 119/69 (86) 06/15/24 02:45 99 28 112/61 (78) 95 06/15/24 02:30 98 28 112/61 (78) 95 06/15/24 02:15 97 28 115/63 (80) 96 06/15/24 02:06 99 100 06/15/24 02:00 95 28 126/68 (87) 96 LABS: Hematology Labs: Test 06/15/24 03:53 06/14/24 04:18 Range/Units White Blood Count 2.5 L 4.8-10.8 K/uL Red Blood Count 2.76 L 4.00-5.50 MIL/uL Hemoglobin 9.0 L 12.0-16.0 g/dL Hematocrit 26.6 L 36-48 % Mean Corpuscular Volume 96.4 79-99 fL Mean Corpuscular Hemoglobin 32.6 27.0-33.0 pg Mean Corpuscular Hemoglobin Concent 33.8 32.0-36.0 g/dL Red Cell Distribution Width 11.4 11.0-15.5 % Platelet Count 125 L 130-400 K/uL Mean Platelet Volume 10.2 7.5-10.5 fL Immature Granulocyte % (Auto) 0.4 0-1 % Neutrophils (%) (Auto) 93.9 H 40.0-77.0 % Lymphocytes (%) (Auto) 4.1 L 21.0-51.0 % Monocytes (%) (Auto) 1.6 L 3.0-13.0 % Eosinophils (%) (Auto) 0.0 0.0-8.0 % Basophils (%) (Auto) 0.0 0.0-5.0 % Neutrophils # (Auto) 2.3 1.8-7.7 K/uL Lymphocytes # (Auto) 0.1 L 1.0-4.8 K/uL Monocytes # (Auto) 0.0 L 0.1-1.0 K/uL Eosinophils # (Auto) 0.00 0.00-0.70 K/uL Basophils # (Auto) 0.00 0.00-0.20 K/uL Absolute Immature Granulocyte (auto 0.01 0-1 K/uL Nucleated Red Blood Cells 0.0 0.0-0.19 % Segmented Neutrophils % 90 H 40-70 % Band Neutrophils % 1 0-2 % Lymphocytes % (Manual) 7 L 22-44 % Monocytes % (Manual) 2 2-9 % Differential Comment MANUAL DIFFERENTIAL White Cell Morphology Comment SMUDGE CELLS 1+ Platelet Morphology Comment ADEQUATE Red Blood Cell Morphology HYPOCHROM CELLS 1+ Chemistry Labs: Test 06/15/24 03:53 Range/Units Sodium Level 134 L 136-145 mmol/L Potassium Level 4.2 3.5-5.1 mmol/L Chloride Level 95 L 101-111 mmol/L Carbon Dioxide Level 39 H 21-32 mmol/L Blood Urea Nitrogen 16 7-18 mg/dL Creatinine 0.4 L 0.5-1.0 mg/dL Glomerular Filtration Rate Calc 121 >90 mL/min Random Glucose 168 H 70-105 mg/dL Total Calcium 7.5 L 8.5-10.1 mg/dL Magnesium Level 2.20 1.80-2.40 mg/dL Total Bilirubin 0.1 L 0.2-1.0 mg/dL Aspartate Amino Transf (AST/SGOT) 28 10-37 U/L Alanine Aminotransferase (ALT/SGPT) 41 # 12-78 U/L Alkaline Phosphatase 95 50-136 U/L Total Protein 5.0 L 6.0-8.3 g/dL Albumin 1.4 L 3.5-5.0 g/dL DIAGNOSTICS / RADIOLOGY RESULTS: IMAGING REPORT Signed PATIENT: RIO OSORIO MR#: [id number] : 1975 SEX: F AGE: 49 LOCATION: 2BH ORDER 230 STATUS: ADM IN REPORT#: [id number] SERVICE [id number] REASON: intubated ORDERING PHYSICIAN: MARGO LOGAN PROCEDURE: CXR1VW - CHEST 1VW Exam Type: CHEST 1VW Clinical Information: intubated Comparison: June 14, 2024 Findings and impression: Severe consolidation of both lungs are again seen, unchanged. Only interval development is pneumomediastinum, moderate to severe. DICTATED BY: FITZ NICOLAS MD DATE: 06/15/24843 ELECTRONICALLY SIGNED BY: FITZ NICOLAS MD DATE: 06/15/24847 PLAN Continue sedation with fentanyl, versed and paralyze w/ nimbex and prone manage vent per abg maintain plateu pressure of < 30 Wean PEEP as tolerated 1st then FiO2 due to pneumomediastinum. Continue steroids Continue Atrovent q.4 hours. ABX per ID POA is son NEURO: Minimize central acting medications as possible. Fall Precautions. Well lighted room through the day and minimize interruptions through the night to prevent acute delirium. PULMONARY: Supplemental 02 as needed Titrate Fio2 to keep Spo2 > or = 90% DuoNebs and CPT as needed IS hourly while awake for pulmonary hygiene Out of bed to chair as tolerated CARDIOVASCULAR: Follow hemodynamics. Titrate vasopressor to keep MAP >65 or systolic blood pressure >95mmHg telemetry LINES: CVC RT IJ Arterial line ET tube' FC OG tube GI & NUTRITION: Continue nutritional support Aspirations precautions Prokinetic agents and laxatives as needed KIDNEYS & ELECTROLYTES: Strict monitoring of intake and output Daily weights Avoid nephrotoxic agents Monitor electrolytes and replace as needed Goal urine output of 30mL/hr or 0.5mL/kg/hr ENDOCRINE: Maintain blood glucose between 100-180 at all times. Insulin sliding scale for blood glucose management INFECTIOUS DISEASE: Trend temperature. Clarke-culture if febrile. Sputum culture from 05/23/24 positive for MRSA, Betty albicans Pneumocystis carinii antigen positive Panculture: 06/02/24 Blood cultures Urine cultures Respiratory culture Antibiotics: Bactrim DS Fluconazole Mycelex Valganciclovir meropenem HEMATOLOGY & COAGULATION: Monitor H&H. Keep Hgb > 7 Transfuse 1 unit of PRBC for Hgb < 7 Transfuse 1 pack of platelets of platelets < 20, 000 Watch for any signs and symptoms of bleeding SKIN: Pressure ulcer prevention per facility protocol Rehab: PT/OT Prophylaxis: GI: Pepcid DVT: Lovenox Code Status: Full Resuscitation Disposition: ICU Other: Critical care time I personally spent 45 minutes of critical care time in treatment of this patie nt. This includes patient management, time at bedside, time reviewing tests, labs, appropriate images and studies, documentation, and patient care coordination. This time excludes separately billable procedures. MARGO LOGAN [facility] Jun 15, 2024 09:59
[2024-06-15] MEDS: ENOXAPARIN SODIUM 40 MG/0.4 ML SYRINGE SQ SCH (10:31)
--- NOTE | 2024-06-15 13:06 | PN ---
[facility] PROGRESS NOTE Date of Service: Jun 15, 2024 Time of Service: 13:05 SUBJECTIVE: [ ] Ms. Abdullahi is a 49-year-old female that was seen and examined today on 05/23/2024. Patient is a good historian and personal health. Patient's son Dagoberto Salcido is at bedside. Patient states that she came to the emergency department with a chief complaint of shortness of breath. Onset was two weeks ago. Location is to lungs. Duration is on and off. Character is described as "easily running out of air." Initially shortness and breath was only aggravated with climbing one or two flights of stairs but symptoms have progressively worsened and patient becomes short of breath even standing or walking short distances. There was no alleviating factors however previously symptoms were being controlled with daily morning albuterol nebulizer treatments. Patient denies any associated chest pain or dizziness. Patient reports an episode of COVID in December 2023. emergency department CBC unremarkable, chemistry unremarkable, urinalysis unremarkable, influenza screen negative, COVID negative, blood gas shows PO2 less than 45. Chest x-ray shows left lower lung pneumonia and minimal right lung base atelectasis. Upon arrival to the emergency department patient was placed on a BiPAP due to respiratory distress. 05/24/2024-patient was seen and examined at the bedside, still on BiPAP. Patient is able to speak, and says she feels much better than before. Patient says after COVID in December she developed severe bronchitis and she was on Solu-Medrol and albuterol, which did not help her much and later she had high fevers and shortness of breath which is when she came to the ED.Vitals afebrile pulse 76, RR 38 tachypneic , blood pressure 115/68, pulse oxygen 99 on BiPAP flow of 60. On ABG pH 7.47, pCO2 29, PO2 109.4, oxygen saturation 98.3. [id number] potassium 4.1 BUN15 creatinine 0.5 GFR 114. We will closely monitor the patient. Pay Agent consult noted waiting on the recommendation 05/25/24 patient was seen and examined and case discussed with RN and family by the bedside. She was breathing better today. She has been on BiPAP all night but now he was on 100% non-rebreather with further efforts to continue to wean the oxygen requirements down. 05/27/24 patient is seen and examined at bedside, acute events overnight, case discussed with the RN, BP 131/64, afebrile, saturating 96-97% via Ventimask, FiO2 40%. The patient admits cough productive of clear phlegm. Serology tests reviewed, HIV preliminary positive, discussed with the patient. 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 We will continue the patient on IV antibiotics, continue fluconazole, continue to follow Pulmonary and ID input and recommendations. After provided in the preliminary results of HIV test, she denies any suicidal or homicidal ideations. 05/28 patient has been seen and examined, no acute events overnight, case discussed with the RN, during my visit patient is sitting comfortably in the chair, hemodynamically stable, off Ventimask, currently on 10 L via nasal cannula, saturating 98%, tolerated BiPAP overnight. she feels better, less shortness a breath, still admits cough productive of yellow phlegm. No chest pain. Getting IV antibiotics during my visit. HIV P24 antigen, nonreactive. We will continue to follow Pulmonary and Infectious Disease input and recommendations. 05/29 patient has been seen and examined, no acute events overnight, case discussed with the RN, during my visit patient is sitting comfortably in the chair, hemodynamically stable, remains on 10 L via nasal cannula, saturating 98%, still admits cough productive of yellow phlegm. No chest pain. Getting IV antibiotics during my visit. HIV P24 antigen, nonreactive. Pending CD4 cell count. We will continue to follow Pulmonary and Infectious Disease input and recommendations. 05/30 the patient has been seen and examined, no acute events overnight, BP 114/66, during my visit she is on Ventimask, saturating 95%, FiO2 60%. Without the Ventimask the patient desaturates to the low 70s. Patient tolerating BiPAP during the night. Still admits cough productive of thick yellow phlegm, no chest pain. Results of CD4 cell count reviewed, discussed with the patient. We will continue broad-spectrum IV antibiotics. Continue to follow Pulmonary and Infectious Disease input and recommendations. 05/31 the patient has been seen and examined, upgraded to the ICU, during my visit she is sitting in the chair, BP 113/72, heart rate of 109, she is on Oxymizer, 30 L, FiO2 100%. She is alert oriented x3, still admits cough productive of thick yellow phlegm, no chest pain. Hemoglobin 12.9, hematocrit 36.6, WBC 14.6. ABG with pH 7.4, pCO2 40, PO2. Chest x-ray shows left lower lo be infiltrate consistent with pneumonia. She is getting IV antibiotics during my visit. Patient will remain in the ICU, continue to follow critical Care as well as infectious disease input and recommendations. 06/01 patient is seen and examined, sitting comfortable in chair, awake, following commands, remains on high-flow oxygen, FiO2 70%, 30 L, BP 117/67, heart rate of 78, respiratory rate of 30-36, saturating 100%, CBC with a hemoglobin 13.6, hematocrit 38.9, WBC 12.4. Platelet count of 341. Chest x-ray showing persistent left lung infiltrate, cardiac size and mediastinum unremarkable. The bony structures are within the normal limits. Patient getting IV antibiotics during my visit. Patient to continue with the high-dose steroids. Serology test positive for Pneumocystis sandra. Patient on Bactrim two tablets p.o. t.i.d.. Continue also doxycycline and cefepime IV. Continue to follow infectious disease input and recommendation. Continue to follow Pulmonary input and recommendations. 06/02 patient is seen and examined at bedside, currently in prone position, alert oriented x3. CPT started last night, she has started having more loose phlegm expectorated. BP 114/74, tachycardic 114, saturating 95%, high-flow nasal cannula, 30 L, FiO2 80%. CBC with a hemoglobin 16.9, hemoglobin 14 0, hematocrit 39.8, platelet count 347. Chest x-ray shows persistent left lung infiltrate. 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 HIV preliminary positive, HIV P 24 nonreactive, HIV-one RNA by PCR [id number]. Serology test for toxoplasma currently pending. Patient on IV antibiotics as well as high-dose steroids. Continue to follow infectious Disease and Pulmonary input and recommendations. 06/03 patient seen at bedside, no acute events overnight. She continues with respiratory distress, with increasing oxygen requirements. Critical Care has discussed a possible need for intubation if she does not improve. She has been started on steroids due to underlying PCP pneumonia. WBC improved from 16.9 down to 13.5, sodium stable at 132, same as yesterday, lactic acid downtrending from 4.1 down to 3.2, remainder of her labs are relatively unremarkable. 06/04 patient seen at bedside, no acute events overnight. She remains on high- flow nasal cannula, mildly tachycardic. WBC elevated at 13.3, sodium decreased from 132 down to 129, remainder of her labs are relatively unremarkable. Continue to wean supplemental oxygen. Further care per critical Care 06/05 patient seen at bedside, no acute events overnight. She remains on high- flow nasal cannula with BiPAP overnight and is still tachycardic. Heart rate ranging from 104 up to 113, WBC improved from 13.3 down to 11.1, sodium decreased from 120 down to 126, remainder of her labs are relatively unremarkable. We will continue to wean oxygen as able. 06/06 Patient seen at bedside, no acute events overnight. She remains on high- flow nasal cannula with BiPAP overnight and is still tachycardic. Heart rate ranging from 104 up to 122, WBC improved from 11.1 down to 10.6, sodium improved from 126 up to 129, remainder of her labs are relatively unremarkable. We will continue to wean oxygen as able. 06/07 patient seen at bedside, no acute events overnight. She is still on high- flow nasal cannula, RT advised to wean oxygen, currently saturating 100% on 30L. She is tachycardic, sodium decreased from 129 down to 123, likely secondary to Bactrim. Patient is asymptomatic, will continue with bactrim, if sodium continues to decrease consider a holiday from bactrim. 06/08 patient seen at bedside, no acute events overnight. She is still on high- flow nasal cannula, RT advised to wean oxygen, currently saturating 100% on 30L. She is tachycardic, sodium stable at 123, same as yesterday. Pending improvement in respiratory status 06/09 patient seen at bedside, he remains on high-flow nasal cannula, we will continue to wean as able, appreciate pulmonology assistance, tachycardic with heart rate ranging from 123 up to 130. She is still having low-grade fevers at 100.8. Sodium increased from 123 up to 130, remainder of her labs are relatively unremarkable. 06/10 patient is seen and examined at bedside, remains on high-flow oxygen, she feels mildly anxious, no chest pain. Still with a cough productive of white phlegm. Still tachycardic, heart rate 117-122. Patient is still spiking low- grade fever. Hemoglobin 10.9, hematocrit 30.5. Sodium remained low at 128, BUN and creatinine of 16 and 0.4. 06/11 patient is seen and examined at bedside, patient now on AVAPS, FiO2 100%, patient became restless last night, she had to be started on Precedex. During my visit she remains alert oriented x3, no chest pain. BP 120/48, she is saturating 100%. Hemoglobin 10 point, hematocrit 31.3. ABG shows persistent hypoxemia, with a PO2 of 69.4. Chest x-ray shows extensive infiltrates on the left which is stable to somewhat increased, there has been interval development of perihilar infiltrate on the right. Normal bilateral lower extremity venous Doppler ultrasound. Continue the patient on prednisone 20 mg p.o. daily, continue Bactrim two tablets p.o. t.i.d. as well as fluconazole 100 mg p.o. daily. 06/12 patient is seen and examined at bedside, intubated, on mechanical ventilation, per discussion with the RN, patient was in respiratory distress yesterday, decision made to intubate the patient. During my visit the patient is midazolam, fentanyl, patient paralyzed, also on Nimbex. She is in a prone position. On pressor support with phenylephrine. Also on Precedex. She is also on hydrocortisone 100 mg IV q.8 hours. Son at bedside, updated. ABG shows pH 7.38, pCO2 47, PO2 122, bicarb of 27.7. 06/13 patient is seen and examined at bedside, remains intubated, on mechanical ventilation, remains on midazolam, fentanyl, patient paralyzed, also on Nimbex. She is in a prone position. On BP pressor support with phenylephrine. Patient is peep of seven. ABG pH 7.34, PO2 72.3. Chest x-ray reviewed, increasing bilateral infiltrates, increasing pneumomediastinum. 06/14 patient is seen and examined at bedside, remains intubated, on mechanical ventilation, prone position, remains on midazolam, fentanyl, patient paralyzed, also on Nimbex. She is in a prone position. Off pressors. Patient is peep of seven. ABG pH 7.34, PO2 72.3. Chest x-ray shows extensive bilateral infiltrates unchanged, no pneumothorax. 06/15 patient is seen and examined at bedside, remains intubated, on mechanical ventilation, prone position, remains paralyzed, on Nimbex. Off pressors. Patient is peep of 10. ABG pH 7.34, PO2 72.3. Chest x-ray shows extensive bilateral infiltrates unchanged, no pneumothorax. Overall condition remains unchanged. No family at bedside. REVIEW OF SYSTEMS 12 point review of systems negative unless noted in HPI PHYSICAL EXAM GENERAL APPEARANCE: Patient intubated, on mechanical ventilation. NEUROLOGICAL: Cranial nerves II-XII grossly intact. Motor is 5/5 in bilateral upper and lower extremities proximal to distal. No sensory deficits. HEENT: Face is symmetric. Pupils are equal and reactive. Extraocular movements are intact. NECK: Supple. No JVD. No thyromegaly. No submental, submandibular, pre- /postauricular, occipital or supraclavicular lymphadenopathy. CHEST: Normal chest expansion. No Telemetry. LUNGS: Bilateral rhonchi, no expiratory wheezing CARDIOVASCULAR: Regular. S1 and S2 normal. No appreciable rubs, murmurs or gallops. ABDOMEN: Soft, nontender, and nondistended. There is no rebound, voluntary guarding, or rigidity. : Deferred. No Souza. EXTREMITIES: Non-edematous and not cyanotic. No clubbing. Good capillary r efill. SKIN: No skin breakdown. Vital Signs (last 8hr) Date Time Temp Pulse Resp B/P (MAP) Pulse Ox O2 Delivery O2 Flow Rate FiO2 06/15/24 12:29 94 100 06/15/24 12:00 98.8 95 28 111/66 (81) 94 118/74 (89) 06/15/24 11:30 95 28 110/67 (81) 94 121/73 (89) 06/15/24 11:00 97 28 116/61 (79) 94 06/15/24 10:30 94 28 116/61 (79) 93 06/15/24 10:00 95 26 112/66 (81) 96 118/74 (89) 06/15/24 09:47 94 28 06/15/24 09:45 94 100 06/15/24 09:30 94 28 113/61 (78) 96 118/74 (89) 06/15/24 09:00 97 28 120/62 (81) 96 119/72 (88) 06/15/24 08:46 98 28 110/67 (81) 96 122/74 (90) 06/15/24 08:30 94 28 115/60 (78) 96 06/15/24 08:00 96 Ventilator+ 100 06/15/24 08:00 100 06/15/24 08:00 97.9 109 28 112/61 (78) 96 112/68 (83) 06/15/24 07:30 94 28 113/59 (77) 96 06/15/24 07:13 98 100 06/15/24 07:00 94 28 118/61 (80) 97 LABS: Laboratory: Test 06/15/24 03:57 06/15/24 03:53 06/14/24 04:20 06/14/24 04:18 Range/Units Blood Gas Specimen Type Arterial Arterial Blood pH 7.359 7.350-7.450 Arterial Blood Partial Pressure CO2 63 *H 32-45 mmHg Arterial Blood Partial Pressure O2 98.8 83.0-108.0 mmHg Arterial Blood HCO3 34.8 H 21.0-28.0 mmol/L Arterial Blood Oxygen Saturation 97.1 94.0-98.0 % Arterial Blood Base Excess 6.9 H -2.0-3.0 mmol/L Blood Gas Temperature 37.0 35.5-37.0 CELSIUS Blood Gas Respiration Rate 28.0 min. Blood Gas Vent Mode AC ROOM AIR FiO2 100.0 % Blood Gas Tidal Volume 425 ml Blood Gas PEEP 10 cm H2O Blood Gas Specimen Comment WENDY White Blood Count 2.5 L 4.8-10.8 K/uL Red Blood Count 2.76 L 4.00-5.50 MIL/uL Hemoglobin 9.0 L 12.0-16.0 g/dL Hematocrit 26.6 L 36-48 % Mean Corpuscular Volume 96.4 79-99 fL Mean Corpuscular Hemoglobin 32.6 27.0-33.0 pg Mean Corpuscular Hemoglobin Concent 33.8 32.0-36.0 g/dL Red Cell Distribution Width 11.4 11.0-15.5 % Platelet Count 125 L 130-400 K/uL Mean Platelet Volume 10.2 7.5-10.5 fL Immature Granulocyte % (Auto) 0.4 0-1 % Neutrophils (%) (Auto) 93.9 H 40.0-77.0 % Lymphocytes (%) (Auto) 4.1 L 21.0-51.0 % Monocytes (%) (Auto) 1.6 L 3.0-13.0 % Eosinophils (%) (Auto) 0.0 0.0-8.0 % Basophils (%) (Auto) 0.0 0.0-5.0 % Neutrophils # (Auto) 2.3 1.8-7.7 K/uL Lymphocytes # (Auto) 0.1 L 1.0-4.8 K/uL Monocytes # (Auto) 0.0 L 0.1-1.0 K/uL Eosinophils # (Auto) 0.00 0.00-0.70 K/uL Basophils # (Auto) 0.00 0.00-0.20 K/uL Absolute Immature Granulocyte (auto 0.01 0-1 K/uL Nucleated Red Blood Cells 0.0 0.0-0.19 % Sodium Level 134 L 136-145 mmol/L Potassium Level 4.2 3.5-5.1 mmol/L Chloride Level 95 L 101-111 mmol/L Carbon Dioxide Level 39 H 21-32 mmol/L Blood Urea Nitrogen 16 7-18 mg/dL Creatinine 0.4 L 0.5-1.0 mg/dL Glomerular Filtration Rate Calc 121 >90 mL/min Random Glucose 168 H 70-105 mg/dL Total Calcium 7.5 L 8.5-10.1 mg/dL Magnesium Level 2.20 1.80-2.40 mg/dL Total Bilirubin 0.1 L 0.2-1.0 mg/dL Aspartate Amino Transf (AST/SGOT) 28 10-37 U/L Alanine Aminotransferase (ALT/SGPT) 41 # 12-78 U/L Alkaline Phosphatase 95 50-136 U/L Total Protein 5.0 L 6.0-8.3 g/dL Albumin 1.4 L 3.5-5.0 g/dL Hemoglobin (Blood Gas) 10.7 L 12.0-16.0 g/dL Sodium (Blood Gas) 129 L 136-145 MMOL/L Bedside Potassium (Blood Gas) 4.0 3.4-4.5 MMOL/L Bedside Chloride (Blood Gas) 93 L 98-107 MMOL/L Bedside Glucose (Blood Gas) 157 H 65-95 MG/DL Bedside Ionized Calcium (Blood Gas) 1.09 L 1.15-1.33 MMOL/L Bedside Lactic Acid (Blood Gas) 1.65 H 0.36-0.75 MMOL/L Segmented Neutrophils % 90 H 40-70 % Band Neutrophils % 1 0-2 % Lymphocytes % (Manual) 7 L 22-44 % Monocytes % (Manual) 2 2-9 % Differential Comment MANUAL DIFFERENTIAL White Cell Morphology Comment SMUDGE CELLS 1+ Platelet Morphology Comment ADEQUATE Red Blood Cell Morphology HYPOCHROM CELLS 1+ Current Medications Medications (Trade) Dose Ordered Sig/Julita Route PRN Reason Start Time Stop Time Status Last Admin Dose Admin Acetaminophen (TYLenol 650MG ELIXIR) 650 mg Q6H PRN PO MILD PAIN (1-3) 06/04/24 08:30 07/04/24 08:29 06/10/24 20:07 650 MG Acetaminophen (TYLenol 650MG SUPPOSITORY) 650 mg Q6H PRN RC MILD PAIN (1-3) 05/23/24 20:30 06/22/24 20:29 Acetylcysteine (MUComyst 20% 4ML) 400mg = 2ml [id number] IH 06/02/24 00:00 06/05/24 15:52 DC 06/05/24 11:35 200 MG Albuterol (DUOneb) 1 udvial [id number] IH 05/24/24 00:00 06/10/24 10:28 DC 06/10/24 06:45 1 UDVIAL Alprazolam (XANax 0.5MG) 0.5 mg Q8H PRN PO ANXIETY 06/10/24 13:30 07/10/24 13:29 06/11/24 05:22 0.5 MG Artificial Tears (Artificial Tears) 1 DROP OR AD Q8H OU 06/11/24 14:30 07/11/24 14:29 06/15/24 06:23 1 DROP Azithromycin 250 ml @ 250 mls/hr Q24H IVPB 05/24/24 17:00 05/24/24 14:41 DC Azithromycin 250 ml @ 250 mls/hr Q24H STAT IVPB 05/23/24 17:17 05/24/24 14:41 DC 05/23/24 17:45 250 MLS/HR Benzocaine (Cepacol Sore Throat Lozenge) 1 each Q4H PRN MM SORE THROAT 06/08/24 10:00 07/08/24 09:59 06/09/24 07:44 1 EACH Bisacodyl (DulcoLAX) 10 mg DAILY PRN RC CONSTIPATION 06/08/24 14:00 07/08/24 13:59 06/09/24 17:22 10 MG Cefepime HCl (MAXipime 2 gm vial) 2 gm Q12H IVPB 05/24/24 15:00 06/03/24 14:59 DC 06/03/24 03:18 2 GM Ceftriaxone Sodium (ROCEphine 1G INJ) 1 gm Q24H IVPB 05/24/24 17:30 05/24/24 14:41 DC Chlorhexidine Gluconate (Peridex) 15 ml Q6H MM 06/07/24 17:00 06/11/24 14:27 DC 06/10/24 12:22 15 ML Chlorhexidine Gluconate (Peridex) 15 ml Q8H MM 06/11/24 14:30 06/25/24 14:29 06/15/24 06:23 15 ML Cisatracurium Besylate (Nimbex) ONCE IVP 06/11/24 14:30 06/11/24 15:57 DC Cisatracurium Besylate 100 mg/ Sodium Chloride 100 ml @ 0 mls/hr PROTOCOL IV 06/11/24 23:30 07/11/24 23:29 06/15/24 06:25 10.4 MLS/HR Clotrimazole (Mycelex) 10 mg TID MM 06/04/24 21:00 06/14/24 08:39 DC 06/13/24 20:28 10 MG Dexmedetomidine/ Sodium Chloride (PRECEdex 400MCG/ 100ML-NS) 400 mcg PROTOCOL IV 06/10/24 19:30 07/10/24 19:29 06/12/24 06:32 400 MCG Dobutamine HCl/ Dextrose 250 ml @ 0 mls/hr PROTOCOL IV 06/12/24 16:30 06/12/24 16:53 DC Doxycycline Hyclate 250 ml @ 125 mls/hr Q12H IV 05/24/24 16:30 06/03/24 16:29 DC 06/03/24 04:23 125 MLS/HR Enoxaparin Sodium (Lovenox 80mg) 40 mg DAILY SQ 06/15/24 09:00 06/15/24 09:30 DC Enoxaparin Sodium (Lovenox 80mg) 80 mg BID SQ 06/11/24 09:00 06/14/24 23:28 DC 06/14/24 20:33 80 MG Enoxaparin Sodium (Lovenox) 40 mg DAILY SQ 06/15/24 09:30 07/15/24 09:29 06/15/24 10:31 40 MG Enoxaparin Sodium (Lovenox) 40 mg Q24H SQ 05/23/24 21:00 06/11/24 04:36 DC 06/10/24 20:07 40 MG Famotidine (Pepcid 20mg Vial) 20 mg DAILY IV 05/24/24 09:00 06/14/24 08:39 DC 06/13/24 08:15 20 MG Fentanyl/Sodium Chloride 250 ml @ 0.1 mls/hr PROTOCOL IV 06/12/24 00:00 06/17/24 00:00 06/15/24 00:42 0.1 MLS/HR Fluconazole (DiFLUCan 100 mg TAB) 200 mg DAILY PO 06/05/24 09:00 07/05/24 08:59 06/15/24 09:39 200 MG Fluconazole/ Sodium Chloride 100 ml @ 100 mls/hr DAILY IV 05/26/24 09:00 05/27/24 15:57 DC 05/27/24 09:07 100 MLS/HR Furosemide (LASix 20MG VIAL) 20 mg DAILY IV 05/31/24 09:00 06/07/24 13:18 DC 06/03/24 08:38 20 MG Furosemide (LASix 20MG VIAL) 20 mg Q12H IV 06/11/24 11:00 06/13/24 09:31 DC 06/12/24 21:54 20 MG Furosemide (LASix 20MG VIAL) 20 mg Q8H IV 06/13/24 09:30 07/13/24 09:29 06/15/24 09:39 20 MG Ganciclovir Sodium 430 mg/ Sodium Chloride 100 ml @ 100 mls/hr Q12H IV 06/13/24 09:00 07/13/24 08:59 06/15/24 09:39 100 MLS/HR Ganciclovir Sodium 500 mg/ Sodium Chloride 100 ml @ 100 mls/hr Q12H IV 06/11/24 18:00 06/11/24 15:48 DC Ganciclovir Sodium (Ganciclovir Sodium) 500 mg Q12H IV 06/12/24 17:00 06/13/24 08:35 DC Guaifenesin/ Dextromethorphan (RobiTUSSin DM 200/20MG 10ML) 10 ml Q4H PRN PO COUGH 05/23/24 20:30 06/22/24 20:29 06/10/24 20:07 10 ML Hydrocortisone Sodium Succinate (Solu-corTEF 100MG) 100 mg Q8H IV 06/11/24 05:00 06/14/24 08:39 DC 06/14/24 06:13 100 MG Hydroxyzine HCl (ATArax 25MG TAB) 25 mg TID PRN PO ITCHING 06/10/24 14:00 07/10/24 13:59 06/11/24 05:22 25 MG Ipratropium [place] (AtrovENT UD) 0.5 MG [id number] IH 06/10/24 14:00 07/10/24 13:59 06/15/24 09:38 0.5 MG Lactated Ringer's (Lactated Ringers 1000ml) 500 ml ONCE IV 06/02/24 20:00 06/02/24 19:54 DC Levofloxacin/ Dextrose 100 ml @ 100 mls/hr Q24H IV 05/24/24 15:00 05/24/24 16:16 DC Magnesium Sulfate 50 ml @ 0 mls/hr PROTOCOL PRN IV hypomagnesemia 05/28/24 08:00 06/27/24 07:59 06/11/24 05:26 50 MLS/HR Meropenem (Merrem) 1 gm Q8H IVPB 06/11/24 15:00 06/13/24 11:52 DC 06/13/24 08:14 1 GM Meropenem (Merrem) 1 gm Q8H IVPB 06/13/24 15:00 06/21/24 14:59 06/15/24 06:23 1 GM Meropenem 1 gm/ Sodium Chloride 100 ml @ 33.333 mls/ hr Q8H IV 06/11/24 14:30 06/11/24 14:28 DC Methylprednisolone Sodium Succinate (Solu-medROL 40MG) 20 mg Q12H IVP 06/05/24 07:00 06/09/24 09:13 DC 06/09/24 07:25 20 MG Methylprednisolone Sodium Succinate (Solu-medROL 40MG) 40 mg Q12H IVP 05/28/24 18:00 05/29/24 16:45 DC 05/29/24 05:32 40 MG Methylprednisolone Sodium Succinate (Solu-medROL 40MG) 40 mg Q6H IVP 05/29/24 16:30 06/04/24 16:44 DC 06/04/24 11:13 40 MG Methylprednisolone Sodium Succinate (Solu-medROL 40MG) 40 mg Q6H IVP 06/04/24 18:00 06/05/24 00:24 DC 06/04/24 23:48 40 MG Methylprednisolone Sodium Succinate (Solu-medROL 40MG) 40 mg Q8H IVP 05/24/24 01:00 05/25/24 21:51 DC 05/25/24 17:28 40 MG Methylprednisolone Sodium Succinate (Solu-medROL 40MG) 60 mg Q6H IVP 05/25/24 22:00 05/28/24 02:25 DC 05/27/24 23:55 60 MG Methylprednisolone Sodium Succinate (Solu-medROL 40MG) 60 mg Q6H IVP 05/28/24 06:00 05/28/24 08:27 DC 05/28/24 06:47 60 MG Methylprednisolone Sodium Succinate (Solu-medROL 40MG) 60 mg Q6H IVP 06/11/24 02:30 06/11/24 04:23 DC 06/11/24 02:46 60 MG Methylprednisolone Sodium Succinate (Solu-medROL 40MG) 80 mg Q8H IVP 06/14/24 17:00 07/14/24 08:59 06/15/24 09:39 80 MG Methylprednisolone Sodium Succinate (Solu-medROL 125MG) 80 mg Q8H IVP 06/14/24 09:00 06/14/24 14:53 DC 06/14/24 08:48 80 MG Metronidazole/ Sodium Chloride (flaGYL) 500 mg Q8H IV 05/25/24 22:00 05/25/24 21:56 DC Midazolam HCl 50 ml @ 0 mls/hr AD PRN IV TITRATE 06/12/24 01:30 06/12/24 08:30 DC 06/12/24 02:30 10 MLS/HR Midazolam HCl 100 ml @ 0 mls/hr AD PRN IV TITRATE 06/12/24 09:00 07/12/24 01:29 06/15/24 06:24 9 MLS/HR Morphine Sulfate (morPHINE 4MG SYG) 4 mg Q4H PRN IM RESPIRATORY SYMPTOMS 06/11/24 03:30 06/14/24 23:33 DC 06/11/24 03:27 4 MG Ondansetron HCl (zoFRAN 4MG INJ) 4 mg Q6H PRN IV NAUSEA/VOMITING 05/23/24 20:30 06/22/24 20:29 Pantoprazole Sodium (PROTonix 40MG INJ) 40 mg BID IVP 06/12/24 21:00 07/12/24 20:59 06/15/24 09:39 40 MG Pharmacy Profile Note (Pharmacy Communication) 1 each ONCE MISC 06/11/24 14:30 06/11/24 15:53 DC Pharmacy Profile Note (Pharmacy Communication) 1 each ONCE MISC 06/11/24 20:30 06/11/24 20:14 DC Pharmacy Profile Note (Pharmacy Communication) 1 each ONCE MISC 06/12/24 17:00 06/12/24 17:07 DC Phenylephrine HCl 10 mg/Sodium Chloride 251 ml @ 0 mls/hr AD PRN IV DIRECTED 06/11/24 03:00 06/12/24 18:12 DC 06/12/24 14:10 47 MLS/HR Phenylephrine HCl 50 mg/Sodium Chloride 250 ml @ 0 mls/hr PROTOCOL PRN IV PROTOCOL 06/12/24 18:00 07/12/24 17:59 06/13/24 08:57 12.45 MLS/HR Potassium Chloride 100 ml @ 100 mls/hr AD PRN IV POTASSIUM PROTOCOL 05/28/24 08:00 06/27/24 07:59 Potassium Chloride (K-Dur/Klor-Con 20meq) 20 meq AD PRN PO POTASSIUM PROTOCOL 05/28/24 08:00 06/27/24 07:59 Potassium Chloride (KCl 10% Elixir 20meq/15ml) 20 meq AD PRN PO POTASSIUM PROTOCOL 05/28/24 08:00 06/27/24 07:59 Prednisone (deltaSONE/ oraSONE 20MG TAB) 20 mg DAILY PO 06/10/24 09:00 06/14/24 08:39 DC 06/13/24 08:15 20 MG Rocuronium [place] (ZemuRON) 10 mg Q1H PRN IV RESP DISTRESS/VENT DISYNCHRONY 06/11/24 20:30 06/11/24 23:29 DC 06/11/24 20:33 10 MG Sodium Chloride 500 ml @ 500 mls/hr Q1H IV 06/02/24 20:00 06/02/24 20:59 DC 06/02/24 21:34 500 MLS/HR Sodium Chloride 1,000 ml @ 75 mls/hr [id number] IV 06/07/24 13:30 06/10/24 17:02 DC 06/10/24 09:05 75 MLS/HR Sodium Chloride (Sodium Chloride) 1,000 mg BIDAC PO 06/07/24 16:30 06/09/24 07:28 DC 06/08/24 16:58 1,000 MG Sodium Chloride (Sodium Chloride) 1,000 mg BIDAC PO 06/09/24 07:30 06/12/24 16:35 DC 06/12/24 12:30 1,000 MG Sodium Chloride (Sodium Chloride) 1,000 mg Q12H PO 06/12/24 21:00 07/09/24 07:29 06/15/24 09:39 1,000 MG Sodium Zirconium Cyclosilicate (Lokelma) 5 gm DAILY10 PO 06/08/24 10:30 06/10/24 10:29 DC 06/08/24 10:50 5 GM Trimethoprim/ Sulfamethoxazole (BactRIM DS) 1 tab BID PO 05/26/24 21:00 05/29/24 16:18 DC 05/29/24 08:07 1 TAB Trimethoprim/ Sulfamethoxazole (BactRIM DS) 2 tab TID PO 05/29/24 16:30 06/05/24 20:59 DC 06/05/24 14:55 2 TAB Trimethoprim/ Sulfamethoxazole (BactRIM DS) 2 tab TID PO 06/06/24 09:30 06/11/24 21:54 DC 06/10/24 13:58 2 TAB Trimethoprim/ Sulfamethoxazole 320 mg/Dextrose 500 ml @ 500 mls/hr Q8H IV 06/11/24 22:30 06/12/24 16:35 DC 06/12/24 06:39 500 MLS/HR Trimethoprim/ Sulfamethoxazole 320 mg/Dextrose 500 ml @ 500 mls/hr Q8H IV 06/12/24 18:00 06/13/24 11:13 DC 06/13/24 05:30 500 MLS/HR Trimethoprim/ Sulfamethoxazole 320 mg/Dextrose 500 ml @ 500 mls/hr Q8H IV 06/13/24 13:30 06/23/24 13:29 06/15/24 05:40 500 MLS/HR Valganciclovir (ValGANCIClovir HCL) 900 mg BID PO 06/11/24 21:00 06/13/24 08:37 DC Wound Care/ Dressing Products (Venelex Ointment) 1 VOLODYMYR AD TID TP 06/14/24 14:00 07/14/24 13:59 06/15/24 10:33 1 GM DIAGNOSTICS / RADIOLOGY: [ ] ASSESSMENT: Acute hypoxemic respiratory failure, POA Bilateral lower lobe bacterial pneumonia + MRSA POA, +Azra Suspected PCP PNA based on CT findings vs viral/Atypical PNA . POA HIV positive (preliminary report, confirmatory test nonreactive) POA Normocytic anemia, not POA Neutrophilia, POA Hyperglycemia, POA Obesity BMI of 32.3 Former smoker Acute cystitis, POA Fatty liver, POA Moderate hypoalbuminemia POA Previous COVID-19 infection Pneumomediastinum PLAN: Continue ICU Patient intubated, mechanical ventilation Continue blood pressure support, wean as tolerated Continue fentanyl, continue Nimbex. Continue to follow critical care input recommendation Continue the patient on Bactrim fluconazole. Continue the patient on prednisone p.o. Continue to follow infectious disease input and recommendation Continue to follow chest x-ray Continue to follow ABG Continue bronchodilators per respiratory therapist Replace electrolytes IV per protocol A.m. labs GI and DVT prophylaxis. Further orders to follow based on the above results Disposition: Remains admitted to the ICU, pending improvement clinical condition. Prognosis is poor guarded. Total ICU time spent greater than 30 minutes. GAIL WALDRON MD Jun 15, 2024 13:06
--- NOTE | 2024-06-15 13:11 | NUR ---
LESIONS TO SKIN HAVE BEEN RELABELED IN [employer] FLOW SHEET. PT HAS A DTI TO SACRUM NOT PERINEUM. HAS ULCER TO INNER RT BUTTOCK NEAR ANUS. HAS FACIAL ULCER TO RT SIDE OF CHEEK.
--- NOTE | 2024-06-15 16:00 | NUR ---
NO ACUTE CHANGES NOTED- IV SITE CARE DONE TO [facility]
[2024-06-16] VITALS (86 sets, daily range): BP systolic 99–150; BP diastolic 59–98; PULSE 80–118; RESP 10–29; TEMP 97.4–98.6; O2SAT 86–96
--- NOTE | 2024-06-16 04:28 | PN ---
INFECTIOUS DISEASE FOLLOWUP NOTE DATE OF SERVICE: 06/14/2024 SUBJECTIVE: The patient is seen today. No fever. She remained intubated on ventilatory support. The patient is tolerating orally. FiO2 remained elevated high at 100%. . No family at bedside. Tolerating antibiotics. No rashes, no itchiness. PHYSICAL EXAMINATION: VITAL SIGNS: Temperature 99.3. EYES: No icterus. Pupils are equal and reactive. HENT: Orally intubated, ventilatory support. NECK: Supple, no JVD or thyromegaly. LUNGS: Good air entry. Crackles bilaterally. CARDIOVASCULAR: S1, S2 regular. No murmur heard. ABDOMEN: Obese, soft. Bowel sound is present. CENTRAL NERVOUS SYSTEM: The patient is sedated, paralyzed. SKIN: No rashes, no itchiness. BACK: No deformity. Unstageable wound involving the right . GENITOURINARY: Souza catheter in place and hematuria. ASSESSMENT: A 49-year-old female with multiple problems include: * Sepsis. * Pneumonia with methicillin-resistant Staphylococcus aureus. * PCP. * Newly-diagnosed HIV/AIDS. * Left gluteal abscess. * Obesity. * Possible virus infection. PLAN: * Continue ganciclovir. * Continue Bactrim. * Continue meropenem. * Continue fluconazole. * Continue critical care support. * Continue ventilatory support. * Continue . * Monitor electrolytes. * The patient will be followed up closely. TID: [id number] RECEIPT: [id number]
[2024-06-16 04:36] LABS: ABG BASE EXCESS 13.8 mmol/L (-2.0-3.0); ABG HCO3 41.2 mmol/L (21.0-28.0); ABG PCO2 63 mmHg (32-45); ABG PH 7.435 (7.350-7.450); PO2, ARTERIAL BG 91.5 mmHg (83.0-108.0); VENT MODE, BG AC VC (ROOM AIR)
[2024-06-16 04:41] LABS: HEMATOCRIT 24.7 % (36-48); IMMATURE GRANULOCYTE ABSOLUTE 0.03 K/uL (0-1); LYMPHOCYTES # (AUTO) 0.1 K/uL (1.0-4.8); LYMPHOCYTES % (AUTO) 3.6 % (21.0-51.0); MEAN CORPUSCULAR HEMOGLOBIN 32.4 pg (27.0-33.0); MEAN CORPUSCULAR VOLUME 95.4 fL (79-99); MONOCYTES # (AUTO) 0.1 K/uL (0.1-1.0); MONOCYTES % (AUTO) 2.3 % (3.0-13.0); NEUTROPHILS # (AUTO) 2.8 K/uL (1.8-7.7); NEUTROPHILS % (AUTO) 93.1 % (40.0-77.0); PLATELET COUNT (AUTO) 121 K/uL (130-400); RED BLOOD CELL COUNT(AUTO) 2.59 MIL/uL (4.00-5.50); RED CELL DISTRIBUTION WIDTH 11.3 % (11.0-15.5)
[2024-06-16 05:00] LABS: ALBUMIN 1.4 g/dL (3.5-5.0); BILIRUBIN,TOTAL 0.1 mg/dL (0.2-1.0); CREATININE 0.5 mg/dL (0.5-1.0); POTASSIUM 4.6 mmol/L (3.5-5.1); TOTAL PROTEIN, SERUM 4.7 g/dL (6.0-8.3)
--- NOTE | 2024-06-16 05:34 | PN ---
INFECTIOUS DISEASE FOLLOWUP NOTE DATE OF SERVICE: 06/15/2024 SUBJECTIVE: The patient is seen. No fever, no chills. No bleeding tendency. No sore throat, no rhinorrhea. No heat or cold intolerance. No depression. No suicidal ideation. Remained intubated, sedated on ventilatory support. The patient is tolerating proning. FiO2 remained at 100% with PEEP of 10. PHYSICAL EXAMINATION: VITAL SIGNS: Temperature 99.0. EYES: No icterus. Pupils equal and reactive. ASSESSMENT * Respiratory failure. * MRSA pneumonia. * PCP infection. * Human immunodeficiency virus/acquired immunodeficiency syndrome. * Right buttock ulcer. * Possible CMV infection. * Oral candidiasis. PLAN: * Continue fluconazole. * Continue ganciclovir. * Continue Bactrim. * Continue meropenem. * Continue critical care support. * Continue wound care. * Continue ventilatory support. * Monitor electrolyte. * Continue nutritional support as tolerated. TID: [id number] RECEIPT: [id number] [facility]
[2024-06-16 05:43] LABS: BAND NEUTROPHILS % (MANUAL) 1 % (0-2); LYMPHOCYTES % (MANUAL) 3 % (22-44); MAN.DIFF COMMENT-IMPRESSION MANUAL DIFFERENTIAL; MONOCYTES % (MANUAL) 4 % (2-9); SEGMENTED NEUTROPHILS % 92 % (40-70); TOTAL CELLS COUNTED 100
--- NOTE | 2024-06-16 09:58 | PN ---
[facility] PROGRESS NOTE Date of Service: Jun 16, 2024 Time of Service: 09:54 SUBJECTIVE: [ ] Ms. Abdullahi is a 49-year-old female that was seen and examined today on 05/23/2024. Patient is a good historian and personal health. Patient's son Dagoberto Salcido is at bedside. Patient states that she came to the emergency department with a chief complaint of shortness of breath. Onset was two weeks ago. Location is to lungs. Duration is on and off. Character is described as "easily running out of air." Initially shortness and breath was only aggravated with climbing one or two flights of stairs but symptoms have progressively worsened and patient becomes short of breath even standing or walking short distances. There was no alleviating factors however previously symptoms were being controlled with daily morning albuterol nebulizer treatments. Patient denies any associated chest pain or dizziness. Patient reports an episode of COVID in December 2023. emergency department CBC unremarkable, chemistry unremarkable, urinalysis unremarkable, influenza screen negative, COVID negative, blood gas shows PO2 less than 45. Chest x-ray shows left lower lung pneumonia and minimal right lung base atelectasis. Upon arrival to the emergency department patient was placed on a BiPAP due to respiratory distress. 05/24/2024-patient was seen and examined at the bedside, still on BiPAP. Patient is able to speak, and says she feels much better than before. Patient says after COVID in December she developed severe bronchitis and she was on Solu-Medrol and albuterol, which did not help her much and later she had high fevers and shortness of breath which is when she came to the ED.Vitals afebrile pulse 76, RR 38 tachypneic , blood pressure 115/68, pulse oxygen 99 on BiPAP flow of 60. On ABG pH 7.47, pCO2 29, PO2 109.4, oxygen saturation 98.3. [id number] potassium 4.1 BUN15 creatinine 0.5 GFR 114. We will closely monitor the patient. Fire Protection Engineer consult noted waiting on the recommendation 05/25/24 patient was seen and examined and case discussed with RN and family by the bedside. She was breathing better today. She has been on BiPAP all night but now he was on 100% non-rebreather with further efforts to continue to wean the oxygen requirements down. 05/27/24 patient is seen and examined at bedside, acute events overnight, case discussed with the RN, BP 131/64, afebrile, saturating 96-97% via Ventimask, FiO2 40%. The patient admits cough productive of clear phlegm. Serology tests reviewed, HIV preliminary positive, discussed with the patient. 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 We will continue the patient on IV antibiotics, continue fluconazole, continue to follow Pulmonary and ID input and recommendations. After provided in the preliminary results of HIV test, she denies any suicidal or homicidal ideations. 05/28 patient has been seen and examined, no acute events overnight, case discussed with the RN, during my visit patient is sitting comfortably in the chair, hemodynamically stable, off Ventimask, currently on 10 L via nasal cannula, saturating 98%, tolerated BiPAP overnight. she feels better, less shortness a breath, still admits cough productive of yellow phlegm. No chest pain. Getting IV antibiotics during my visit. HIV P24 antigen, nonreactive. We will continue to follow Pulmonary and Infectious Disease input and recommendations. 05/29 patient has been seen and examined, no acute events overnight, case discussed with the RN, during my visit patient is sitting comfortably in the chair, hemodynamically stable, remains on 10 L via nasal cannula, saturating 98%, still admits cough productive of yellow phlegm. No chest pain. Getting IV antibiotics during my visit. HIV P24 antigen, nonreactive. Pending CD4 cell count. We will continue to follow Pulmonary and Infectious Disease input and recommendations. 05/30 the patient has been seen and examined, no acute events overnight, BP 114/66, during my visit she is on Ventimask, saturating 95%, FiO2 60%. Without the Ventimask the patient desaturates to the low 70s. Patient tolerating BiPAP during the night. Still admits cough productive of thick yellow phlegm, no chest pain. Results of CD4 cell count reviewed, discussed with the patient. We will continue broad-spectrum IV antibiotics. Continue to follow Pulmonary and Infectious Disease input and recommendations. 05/31 the patient has been seen and examined, upgraded to the ICU, during my visit she is sitting in the chair, BP 113/72, heart rate of 109, she is on Oxymizer, 30 L, FiO2 100%. She is alert oriented x3, still admits cough productive of thick yellow phlegm, no chest pain. Hemoglobin 12.9, hematocrit 36.6, WBC 14.6. ABG with pH 7.4, pCO2 40, PO2. Chest x-ray shows left lower lo be infiltrate consistent with pneumonia. She is getting IV antibiotics during my visit. Patient will remain in the ICU, continue to follow critical Care as well as infectious disease input and recommendations. 06/01 patient is seen and examined, sitting comfortable in chair, awake, following commands, remains on high-flow oxygen, FiO2 70%, 30 L, BP 117/67, heart rate of 78, respiratory rate of 30-36, saturating 100%, CBC with a hemoglobin 13.6, hematocrit 38.9, WBC 12.4. Platelet count of 341. Chest x-ray showing persistent left lung infiltrate, cardiac size and mediastinum unremarkable. The bony structures are within the normal limits. Patient getting IV antibiotics during my visit. Patient to continue with the high-dose steroids. Serology test positive for Pneumocystis sandra. Patient on Bactrim two tablets p.o. t.i.d.. Continue also doxycycline and cefepime IV. Continue to follow infectious disease input and recommendation. Continue to follow Pulmonary input and recommendations. 06/02 patient is seen and examined at bedside, currently in prone position, alert oriented x3. CPT started last night, she has started having more loose phlegm expectorated. BP 114/74, tachycardic 114, saturating 95%, high-flow nasal cannula, 30 L, FiO2 80%. CBC with a hemoglobin 16.9, hemoglobin 14 0, hematocrit 39.8, platelet count 347. Chest x-ray shows persistent left lung infiltrate. 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 HIV preliminary positive, HIV P 24 nonreactive, HIV-one RNA by PCR [id number]. Serology test for toxoplasma currently pending. Patient on IV antibiotics as well as high-dose steroids. Continue to follow infectious Disease and Pulmonary input and recommendations. 06/03 patient seen at bedside, no acute events overnight. She continues with respiratory distress, with increasing oxygen requirements. Critical Care has discussed a possible need for intubation if she does not improve. She has been started on steroids due to underlying PCP pneumonia. WBC improved from 16.9 down to 13.5, sodium stable at 132, same as yesterday, lactic acid downtrending from 4.1 down to 3.2, remainder of her labs are relatively unremarkable. 06/04 patient seen at bedside, no acute events overnight. She remains on high- flow nasal cannula, mildly tachycardic. WBC elevated at 13.3, sodium decreased from 132 down to 129, remainder of her labs are relatively unremarkable. Continue to wean supplemental oxygen. Further care per critical Care 06/05 patient seen at bedside, no acute events overnight. She remains on high- flow nasal cannula with BiPAP overnight and is still tachycardic. Heart rate ranging from 104 up to 113, WBC improved from 13.3 down to 11.1, sodium decreased from 120 down to 126, remainder of her labs are relatively unremarkable. We will continue to wean oxygen as able. 06/06 Patient seen at bedside, no acute events overnight. She remains on high- flow nasal cannula with BiPAP overnight and is still tachycardic. Heart rate ranging from 104 up to 122, WBC improved from 11.1 down to 10.6, sodium improved from 126 up to 129, remainder of her labs are relatively unremarkable. We will continue to wean oxygen as able. 06/07 patient seen at bedside, no acute events overnight. She is still on high- flow nasal cannula, RT advised to wean oxygen, currently saturating 100% on 30L. She is tachycardic, sodium decreased from 129 down to 123, likely secondary to Bactrim. Patient is asymptomatic, will continue with bactrim, if sodium continues to decrease consider a holiday from bactrim. 06/08 patient seen at bedside, no acute events overnight. She is still on high- flow nasal cannula, RT advised to wean oxygen, currently saturating 100% on 30L. She is tachycardic, sodium stable at 123, same as yesterday. Pending improvement in respiratory status 06/09 patient seen at bedside, he remains on high-flow nasal cannula, we will continue to wean as able, appreciate pulmonology assistance, tachycardic with heart rate ranging from 123 up to 130. She is still having low-grade fevers at 100.8. Sodium increased from 123 up to 130, remainder of her labs are relatively unremarkable. 06/10 patient is seen and examined at bedside, remains on high-flow oxygen, she feels mildly anxious, no chest pain. Still with a cough productive of white phlegm. Still tachycardic, heart rate 117-122. Patient is still spiking low- grade fever. Hemoglobin 10.9, hematocrit 30.5. Sodium remained low at 128, BUN and creatinine of 16 and 0.4. 06/11 patient is seen and examined at bedside, patient now on AVAPS, FiO2 100%, patient became restless last night, she had to be started on Precedex. During my visit she remains alert oriented x3, no chest pain. BP 120/48, she is saturating 100%. Hemoglobin 10 point, hematocrit 31.3. ABG shows persistent hypoxemia, with a PO2 of 69.4. Chest x-ray shows extensive infiltrates on the left which is stable to somewhat increased, there has been interval development of perihilar infiltrate on the right. Normal bilateral lower extremity venous Doppler ultrasound. Continue the patient on prednisone 20 mg p.o. daily, continue Bactrim two tablets p.o. t.i.d. as well as fluconazole 100 mg p.o. daily. 06/12 patient is seen and examined at bedside, intubated, on mechanical ventilation, per discussion with the RN, patient was in respiratory distress yesterday, decision made to intubate the patient. During my visit the patient is midazolam, fentanyl, patient paralyzed, also on Nimbex. She is in a prone position. On pressor support with phenylephrine. Also on Precedex. She is also on hydrocortisone 100 mg IV q.8 hours. Son at bedside, updated. ABG shows pH 7.38, pCO2 47, PO2 122, bicarb of 27.7. 06/13 patient is seen and examined at bedside, remains intubated, on mechanical ventilation, remains on midazolam, fentanyl, patient paralyzed, also on Nimbex. She is in a prone position. On BP pressor support with phenylephrine. Patient is peep of seven. ABG pH 7.34, PO2 72.3. Chest x-ray reviewed, increasing bilateral infiltrates, increasing pneumomediastinum. 06/14 patient is seen and examined at bedside, remains intubated, on mechanical ventilation, prone position, remains on midazolam, fentanyl, patient paralyzed, also on Nimbex. She is in a prone position. Off pressors. Patient is peep of seven. ABG pH 7.34, PO2 72.3. Chest x-ray shows extensive bilateral infiltrates unchanged, no pneumothorax. 06/15 patient is seen and examined at bedside, remains intubated, on mechanical ventilation, prone position, remains paralyzed, on Nimbex. Off pressors. Patient is peep of 10. ABG pH 7.34, PO2 72.3. Chest x-ray shows extensive bilateral infiltrates unchanged, no pneumothorax. Overall condition remains unchanged. No family at bedside. 06/16 patient is seen and examined at bedside, remains intubated, on mechanical ventilation, discussed with the RN, the patient has been placed on supine position. Patient remains on pressor support. Remains on sedation with midazolam and fentanyl BP 114/60, afebrile saturating 96% FiO2 100%, peep of 8. ABG today with pCO2 63, PO2 91.5. Chest x-ray with severe consultation both lungs, unchanged, interval development of pneumomediastinum, moderate to severe. Continue Solu-Medrol 80 mg IV q.8 hours, continue broad-spectrum antibiotics with meropenem 1 g IV q.8 hours, the patient remains on Bactrim. Continue ganciclovir. REVIEW OF SYSTEMS 12 point review of systems negative unless noted in HPI PHYSICAL EXAM GENERAL APPEARANCE: Patient intubated, on mechanical ventilation. NEUROLOGICAL: Cranial nerves II-XII grossly intact. Motor is 5/5 in bilateral upper and lower extremities proximal to distal. No sensory deficits. HEENT: Face is symmetric. Pupils are equal and reactive. Extraocular movements are intact. NECK: Supple. No JVD. No thyromegaly. No submental, submandibular, pre- /postauricular, occipital or supraclavicular lymphadenopathy. CHEST: Normal chest expansion. No Telemetry. LUNGS: Bilateral rhonchi, no expiratory wheezing CARDIOVASCULAR: Regular. S1 and S2 normal. No appreciable rubs, murmurs or gallops. ABDOMEN: Soft, nontender, and nondistended. There is no rebound, voluntary guarding, or rigidity. : Deferred. No Souza. EXTREMITIES: Non-edematous and not cyanotic. No clubbing. Good capillary refill. SKIN: No skin breakdown. Vital Signs (last 8hr) Date Time Temp Pulse Resp B/P (MAP) Pulse Ox O2 Delivery O2 Flow Rate FiO2 2/2/25 08:30 89 28 119/61 (80) 96 06/16/24 08:15 91 28 114/60 (78) 96 117/70 (86) 06/16/24 08:00 97.9 92 28 117/60 (79) 95 06/16/24 08:00 95 Ventilator+ 100 06/16/24 07:45 94 28 112/59 (76) 95 120/66 (84) 06/16/24 07:30 92 28 118/60 (79) 95 06/16/24 07:15 94 28 113/59 (77) 95 118/68 (85) 06/16/24 07:00 88 28 118/61 (80) 95 06/16/24 06:48 90 28 06/16/24 06:46 89 28 113/60 (77) 95 115/71 (86) 06/16/24 06:46 88 100 06/16/24 06:31 90 28 120/63 (82) 96 06/16/24 06:16 93 28 116/63 (80) 96 121/73 (89) 06/16/24 06:01 93 28 119/63 (81) 96 06/16/24 05:46 93 29 109/60 (76) 95 117/69 (85) 06/16/24 05:31 91 28 112/59 (76) 96 06/16/24 05:16 91 28 106/59 (75) 95 118/69 (85) 06/16/24 05:01 90 28 112/60 (77) 96 06/16/24 04:46 92 29 110/62 (78) 96 116/68 (84) 06/16/24 04:31 92 28 108/59 (75) 96 06/16/24 04:16 90 28 104/61 (75) 96 116/70 (85) 06/16/24 04:01 98.6 90 28 112/62 (79) 96 06/16/24 04:00 100 06/16/24 03:46 92 28 104/59 (74) 95 117/68 (84) 06/16/24 03:31 93 28 111/61 (78) 95 06/16/24 03:16 98 29 109/61 (77) 95 118/70 (86) 06/16/24 03:11 96 Ventilator+ 100 06/16/24 03:01 97 28 110/60 (77) 95 06/16/24 02:46 99 28 104/60 (75) 95 119/68 (85) 06/16/24 02:45 97 28 110/60 (77) 95 06/16/24 02:39 99 100 06/16/24 02:31 118 28 06/16/24 02:30 100 28 114/62 (79) 95 06/16/24 02:16 98 29 109/61 (77) 95 120/68 (85) 06/16/24 02:15 98 28 112/60 (77) 95 06/16/24 02:00 99 28 119/63 (81) 96 LABS: Laboratory: Test 06/16/24 04:34 06/16/24 04:30 06/15/24 03:53 Range/Units Blood Gas Specimen Type Arterial Arterial Blood pH 7.435 7.350-7.450 Arterial Blood Partial Pressure CO2 63 *H 32-45 mmHg Arterial Blood Partial Pressure O2 91.5 83.0-108.0 mmHg Arterial Blood HCO3 41.2 H 21.0-28.0 mmol/L Arterial Blood Oxygen Saturation 97.0 94.0-98.0 % Arterial Blood Base Excess 13.8 H -2.0-3.0 mmol/L Blood Gas Temperature 37.0 35.5-37.0 CELSIUS Blood Gas Respiration Rate 28.0 min. Blood Gas Vent Mode AC VC ROOM AIR FiO2 100.0 % Blood Gas Tidal Volume 425 ml Blood Gas PEEP 8 cm H2O Blood Gas Specimen Comment JOE RN, AL White Blood Count 3.0 L 4.8-10.8 K/uL Red Blood Count 2.59 L 4.00-5.50 MIL/uL Hemoglobin 8.4 L 12.0-16.0 g/dL Hematocrit 24.7 L 36-48 % Mean Corpuscular Volume 95.4 79-99 fL Mean Corpuscular Hemoglobin 32.4 27.0-33.0 pg Mean Corpuscular Hemoglobin Concent 34.0 32.0-36.0 g/dL Red Cell Distribution Width 11.3 11.0-15.5 % Platelet Count 121 L 130-400 K/uL Mean Platelet Volume 10.6 H 7.5-10.5 fL Immature Granulocyte % (Auto) 1.0 0-1 % Neutrophils (%) (Auto) 93.1 H 40.0-77.0 % Lymphocytes (%) (Auto) 3.6 L 21.0-51.0 % Monocytes (%) (Auto) 2.3 L 3.0-13.0 % Eosinophils (%) (Auto) 0.0 0.0-8.0 % Basophils (%) (Auto) 0.0 0.0-5.0 % Neutrophils # (Auto) 2.8 1.8-7.7 K/uL Lymphocytes # (Auto) 0.1 L 1.0-4.8 K/uL Monocytes # (Auto) 0.1 0.1-1.0 K/uL Eosinophils # (Auto) 0.00 0.00-0.70 K/uL Basophils # (Auto) 0.00 0.00-0.20 K/uL Absolute Immature Granulocyte (auto 0.03 0-1 K/uL Segmented Neutrophils % 92 H 40-70 % Band Neutrophils % 1 0-2 % Lymphocytes % (Manual) 3 L 22-44 % Monocytes % (Manual) 4 2-9 % Nucleated Red Blood Cells 0.0 0.0-0.19 % Differential Comment MANUAL DIFFERENTIAL White Cell Morphology Comment Platelet Morphology Comment See comments Red Blood Cell Morphology HYPOCHROM CELLS 1+ Sodium Level 133 L 136-145 mmol/L Potassium Level 4.6 3.5-5.1 mmol/L Chloride Level 95 L 101-111 mmol/L Carbon Dioxide Level 41 *H 21-32 mmol/L Blood Urea Nitrogen 22 H 7-18 mg/dL Creatinine 0.5 0.5-1.0 mg/dL Glomerular Filtration Rate Calc 114 >90 mL/min Random Glucose 152 H 70-105 mg/dL Total Calcium 7.6 L 8.5-10.1 mg/dL Total Bilirubin 0.1 L 0.2-1.0 mg/dL Aspartate Amino Transf (AST/SGOT) 34 10-37 U/L Alanine Aminotransferase (ALT/SGPT) 47 12-78 U/L Alkaline Phosphatase 89 50-136 U/L Total Protein 4.7 L 6.0-8.3 g/dL Albumin 1.4 L 3.5-5.0 g/dL Magnesium Level 2.20 1.80-2.40 mg/dL Current Medications Medications (Trade) Dose Ordered Sig/Julita Route PRN Reason Start Time Stop Time Status Last Admin Dose Admin Acetaminophen (TYLenol 650MG ELIXIR) 650 mg Q6H PRN PO MILD PAIN (1-3) 06/04/24 08:30 07/04/24 08:29 06/10/24 20:07 650 MG Acetaminophen (TYLenol 650MG SUPPOSITORY) 650 mg Q6H PRN RC MILD PAIN (1-3) 05/23/24 20:30 06/22/24 20:29 Acetylcysteine (MUComyst 20% 4ML) 400mg = 2ml [id number] IH 06/02/24 00:00 06/05/24 15:52 DC 06/05/24 11:35 200 MG Albuterol (DUOneb) 1 udvial [id number] IH 05/24/24 00:00 06/10/24 10:28 DC 06/10/24 06:45 1 UDVIAL Alprazolam (XANax 0.5MG) 0.5 mg Q8H PRN PO ANXIETY 06/10/24 13:30 07/10/24 13:29 06/11/24 05:22 0.5 MG Artificial Tears (Artificial Tears) 1 DROP OR AD Q8H OU 06/11/24 14:30 07/11/24 14:29 06/16/24 06:37 1 DROP Azithromycin 250 ml @ 250 mls/hr Q24H IVPB 05/24/24 17:00 05/24/24 14:41 DC Azithromycin 250 ml @ 250 mls/hr Q24H STAT IVPB 05/23/24 17:17 05/24/24 14:41 DC 05/23/24 17:45 250 MLS/HR Benzocaine (Cepacol Sore Throat Lozenge) 1 each Q4H PRN MM SORE THROAT 06/08/24 10:00 07/08/24 09:59 06/09/24 07:44 1 EACH Bisacodyl (DulcoLAX) 10 mg DAILY PRN RC CONSTIPATION 06/08/24 14:00 07/08/24 13:59 06/09/24 17:22 10 MG Cefepime HCl (MAXipime 2 gm vial) 2 gm Q12H IVPB 05/24/24 15:00 06/03/24 14:59 DC 06/03/24 03:18 2 GM Ceftriaxone Sodium (ROCEphine 1G INJ) 1 gm Q24H IVPB 05/24/24 17:30 05/24/24 14:41 DC Chlorhexidine Gluconate (Peridex) 15 ml Q6H MM 06/07/24 17:00 06/11/24 14:27 DC 06/10/24 12:22 15 ML Chlorhexidine Gluconate (Peridex) 15 ml Q8H MM 06/11/24 14:30 06/25/24 14:29 06/16/24 06:44 15 ML Cisatracurium Besylate (Nimbex) ONCE IVP 06/11/24 14:30 06/11/24 15:57 DC Cisatracurium Besylate 100 mg/ Sodium Chloride 100 ml @ 0 mls/hr PROTOCOL IV 06/11/24 23:30 07/11/24 23:29 06/16/24 08:30 10.4 MLS/HR Clotrimazole (Mycelex) 10 mg TID MM 06/04/24 21:00 06/14/24 08:39 DC 06/13/24 20:28 10 MG Dexmedetomidine/ Sodium Chloride (PRECEdex 400MCG/ 100ML-NS) 400 mcg PROTOCOL IV 06/10/24 19:30 07/10/24 19:29 06/12/24 06:32 400 MCG Dobutamine HCl/ Dextrose 250 ml @ 0 mls/hr PROTOCOL IV 06/12/24 16:30 06/12/24 16:53 DC Doxycycline Hyclate 250 ml @ 125 mls/hr Q12H IV 05/24/24 16:30 06/03/24 16:29 DC 06/03/24 04:23 125 MLS/HR Enoxaparin Sodium (Lovenox 80mg) 40 mg DAILY SQ 06/15/24 09:00 06/15/24 09:30 DC Enoxaparin Sodium (Lovenox 80mg) 80 mg BID SQ 06/11/24 09:00 06/14/24 23:28 DC 06/14/24 20:33 80 MG Enoxaparin Sodium (Lovenox) 40 mg DAILY SQ 06/15/24 09:30 07/15/24 09:29 06/16/24 08:45 40 MG Enoxaparin Sodium (Lovenox) 40 mg Q24H SQ 05/23/24 21:00 06/11/24 04:36 DC 06/10/24 20:07 40 MG Famotidine (Pepcid 20mg Vial) 20 mg DAILY IV 05/24/24 09:00 06/14/24 08:39 DC 06/13/24 08:15 20 MG Fentanyl/Sodium Chloride 250 ml @ 0.1 mls/hr PROTOCOL IV 06/12/24 00:00 06/17/24 00:00 06/16/24 06:24 0.1 MLS/HR Fluconazole (DiFLUCan 100 mg TAB) 200 mg DAILY PO 06/05/24 09:00 07/05/24 08:59 06/16/24 08:45 200 MG Fluconazole/ Sodium Chloride 100 ml @ 100 mls/hr DAILY IV 05/26/24 09:00 05/27/24 15:57 DC 05/27/24 09:07 100 MLS/HR Furosemide (LASix 20MG VIAL) 20 mg DAILY IV 05/31/24 09:00 06/07/24 13:18 DC 06/03/24 08:38 20 MG Furosemide (LASix 20MG VIAL) 20 mg Q12H IV 06/11/24 11:00 06/13/24 09:31 DC 06/12/24 21:54 20 MG Furosemide (LASix 20MG VIAL) 20 mg Q8H IV 06/13/24 09:30 07/13/24 09:29 06/16/24 08:44 20 MG Ganciclovir Sodium 430 mg/ Sodium Chloride 100 ml @ 100 mls/hr Q12H IV 06/13/24 09:00 07/13/24 08:59 06/16/24 08:43 100 MLS/HR Ganciclovir Sodium 500 mg/ Sodium Chloride 100 ml @ 100 mls/hr Q12H IV 06/11/24 18:00 06/11/24 15:48 DC Ganciclovir Sodium (Ganciclovir Sodium) 500 mg Q12H IV 06/12/24 17:00 06/13/24 08:35 DC Guaifenesin/ Dextromethorphan (RobiTUSSin DM 200/20MG 10ML) 10 ml Q4H PRN PO COUGH 05/23/24 20:30 06/22/24 20:29 06/10/24 20:07 10 ML Hydrocortisone Sodium Succinate (Solu-corTEF 100MG) 100 mg Q8H IV 06/11/24 05:00 06/14/24 08:39 DC 06/14/24 06:13 100 MG Hydroxyzine HCl (ATArax 25MG TAB) 25 mg TID PRN PO ITCHING 06/10/24 14:00 07/10/24 13:59 06/11/24 05:22 25 MG Ipratropium Taylors (AtrovENT UD) 0.5 MG [id number] IH 06/10/24 14:00 07/10/24 13:59 06/16/24 06:40 0.5 MG Lactated Ringer's (Lactated Ringers 1000ml) 500 ml ONCE IV 06/02/24 20:00 06/02/24 19:54 DC Levofloxacin/ Dextrose 100 ml @ 100 mls/hr Q24H IV 05/24/24 15:00 05/24/24 16:16 DC Magnesium Sulfate 50 ml @ 0 mls/hr PROTOCOL PRN IV hypomagnesemia 05/28/24 08:00 06/27/24 07:59 06/11/24 05:26 50 MLS/HR Meropenem (Merrem) 1 gm Q8H IVPB 06/11/24 15:00 06/13/24 11:52 DC 06/13/24 08:14 1 GM Meropenem (Merrem) 1 gm Q8H IVPB 06/13/24 15:00 06/21/24 14:59 06/16/24 06:44 1 GM Meropenem 1 gm/ Sodium Chloride 100 ml @ 33.333 mls/ hr Q8H IV 06/11/24 14:30 06/11/24 14:28 DC Methylprednisolone Sodium Succinate (Solu-medROL 40MG) 20 mg Q12H IVP 06/05/24 07:00 06/09/24 09:13 DC 06/09/24 07:25 20 MG Methylprednisolone Sodium Succinate (Solu-medROL 40MG) 40 mg Q12H IVP 05/28/24 18:00 05/29/24 16:45 DC 05/29/24 05:32 40 MG Methylprednisolone Sodium Succinate (Solu-medROL 40MG) 40 mg Q6H IVP 05/29/24 16:30 06/04/24 16:44 DC 06/04/24 11:13 40 MG Methylprednisolone Sodium Succinate (Solu-medROL 40MG) 40 mg Q6H IVP 06/04/24 18:00 06/05/24 00:24 DC 06/04/24 23:48 40 MG Methylprednisolone Sodium Succinate (Solu-medROL 40MG) 40 mg Q8H IVP 05/24/24 01:00 05/25/24 21:51 DC 05/25/24 17:28 40 MG Methylprednisolone Sodium Succinate (Solu-medROL 40MG) 60 mg Q6H IVP 05/25/24 22:00 05/28/24 02:25 DC 05/27/24 23:55 60 MG Methylprednisolone Sodium Succinate (Solu-medROL 40MG) 60 mg Q6H IVP 05/28/24 06:00 05/28/24 08:27 DC 05/28/24 06:47 60 MG Methylprednisolone Sodium Succinate (Solu-medROL 40MG) 60 mg Q6H IVP 06/11/24 02:30 06/11/24 04:23 DC 06/11/24 02:46 60 MG Methylprednisolone Sodium Succinate (Solu-medROL 40MG) 80 mg Q8H IVP 06/14/24 17:00 07/14/24 08:59 06/16/24 08:44 80 MG Methylprednisolone Sodium Succinate (Solu-medROL 125MG) 80 mg Q8H IVP 06/14/24 09:00 06/14/24 14:53 DC 06/14/24 08:48 80 MG Metronidazole/ Sodium Chloride (flaGYL) 500 mg Q8H IV 05/25/24 22:00 05/25/24 21:56 DC Midazolam HCl 50 ml @ 0 mls/hr AD PRN IV TITRATE 06/12/24 01:30 06/12/24 08:30 DC 06/12/24 02:30 10 MLS/HR Midazolam HCl 100 ml @ 0 mls/hr AD PRN IV TITRATE 06/12/24 09:00 07/12/24 01:29 06/16/24 02:40 9 MLS/HR Morphine Sulfate (morPHINE 4MG SYG) 4 mg Q4H PRN IM RESPIRATORY SYMPTOMS 06/11/24 03:30 06/14/24 23:33 DC 06/11/24 03:27 4 MG Ondansetron HCl (zoFRAN 4MG INJ) 4 mg Q6H PRN IV NAUSEA/VOMITING 05/23/24 20:30 06/22/24 20:29 Pantoprazole Sodium (PROTonix 40MG INJ) 40 mg BID IVP 06/12/24 21:00 07/12/24 20:59 06/16/24 08:44 40 MG Pharmacy Profile Note (Pharmacy Communication) 1 each ONCE MISC 06/11/24 14:30 06/11/24 15:53 DC Pharmacy Profile Note (Pharmacy Communication) 1 each ONCE MISC 06/11/24 20:30 06/11/24 20:14 DC Pharmacy Profile Note (Pharmacy Communication) 1 each ONCE MISC 06/12/24 17:00 06/12/24 17:07 DC Phenylephrine HCl 10 mg/Sodium Chloride 251 ml @ 0 mls/hr AD PRN IV DIRECTED 06/11/24 03:00 06/12/24 18:12 DC 06/12/24 14:10 47 MLS/HR Phenylephrine HCl 50 mg/Sodium Chloride 250 ml @ 0 mls/hr PROTOCOL PRN IV PROTOCOL 06/12/24 18:00 07/12/24 17:59 06/13/24 08:57 12.45 MLS/HR Potassium Chloride 100 ml @ 100 mls/hr AD PRN IV POTASSIUM PROTOCOL 05/28/24 08:00 06/27/24 07:59 Potassium Chloride (K-Dur/Klor-Con 20meq) 20 meq AD PRN PO POTASSIUM PROTOCOL 05/28/24 08:00 06/27/24 07:59 Potassium Chloride (KCl 10% Elixir 20meq/15ml) 20 meq AD PRN PO POTASSIUM PROTOCOL 05/28/24 08:00 06/27/24 07:59 Prednisone (deltaSONE/ oraSONE 20MG TAB) 20 mg DAILY PO 06/10/24 09:00 06/14/24 08:39 DC 06/13/24 08:15 20 MG Rocuronium [place] (ZemuRON) 10 mg Q1H PRN IV RESP DISTRESS/VENT DISYNCHRONY 06/11/24 20:30 06/11/24 23:29 DC 06/11/24 20:33 10 MG Sodium Chloride 500 ml @ 500 mls/hr Q1H IV 06/02/24 20:00 06/02/24 20:59 DC 06/02/24 21:34 500 MLS/HR Sodium Chloride 1,000 ml @ 75 mls/hr [id number] IV 06/07/24 13:30 06/10/24 17:02 DC 06/10/24 09:05 75 MLS/HR Sodium Chloride (Sodium Chloride) 1,000 mg BIDAC PO 06/07/24 16:30 06/09/24 07:28 DC 06/08/24 16:58 1,000 MG Sodium Chloride (Sodium Chloride) 1,000 mg BIDAC PO 06/09/24 07:30 06/12/24 16:35 DC 06/12/24 12:30 1,000 MG Sodium Chloride (Sodium Chloride) 1,000 mg Q12H PO 06/12/24 21:00 07/09/24 07:29 06/16/24 08:45 1,000 MG Sodium Zirconium Cyclosilicate (Lokelma) 5 gm DAILY10 PO 06/08/24 10:30 06/10/24 10:29 DC 06/08/24 10:50 5 GM Trimethoprim/ Sulfamethoxazole (BactRIM DS) 1 tab BID PO 05/26/24 21:00 05/29/24 16:18 DC 05/29/24 08:07 1 TAB Trimethoprim/ Sulfamethoxazole (BactRIM DS) 2 tab TID PO 05/29/24 16:30 06/05/24 20:59 DC 06/05/24 14:55 2 TAB Trimethoprim/ Sulfamethoxazole (BactRIM DS) 2 tab TID PO 06/06/24 09:30 06/11/24 21:54 DC 06/10/24 13:58 2 TAB Trimethoprim/ Sulfamethoxazole 320 mg/Dextrose 500 ml @ 500 mls/hr Q8H IV 06/11/24 22:30 06/12/24 16:35 DC 06/12/24 06:39 500 MLS/HR Trimethoprim/ Sulfamethoxazole 320 mg/Dextrose 500 ml @ 500 mls/hr Q8H IV 06/12/24 18:00 06/13/24 11:13 DC 06/13/24 05:30 500 MLS/HR Trimethoprim/ Sulfamethoxazole 320 mg/Dextrose 500 ml @ 500 mls/hr Q8H IV 06/13/24 13:30 06/23/24 13:29 06/16/24 06:12 500 MLS/HR Valganciclovir (ValGANCIClovir HCL) 900 mg BID PO 06/11/24 21:00 06/13/24 08:37 DC Wound Care/ Dressing Products (Venelex Ointment) 1 VOLODYMYR AD TID TP 06/14/24 14:00 07/14/24 13:59 06/16/24 08:44 1 GM DIAGNOSTICS / RADIOLOGY: [ ] Exam Type: CHEST 1VW Clinical Information: intubated Comparison: June 14, 2024 Findings and impression: Severe consolidation of both lungs are again seen, unchanged. Only interval development is pneumomediastinum, moderate to severe. ASSESSMENT: Acute hypoxemic respiratory failure, POA Bilateral lower lobe bacterial pneumonia + MRSA POA, +Azra Suspected PCP PNA based on CT findings vs viral/Atypical PNA . POA HIV positive (preliminary report, confirmatory test nonreactive) POA Normocytic anemia, not POA Neutrophilia, POA Hyperglycemia, POA Obesity BMI of 32.3 Former smoker Acute cystitis, POA Fatty liver, POA Moderate hypoalbuminemia POA Previous COVID-19 infection Pneumomediastinum PLAN: Continue ICU Patient intubated, mechanical ventilation Continue blood pressure support, wean as tolerated Continue fentanyl, continue Nimbex. Continue to follow critical care input recommendation Continue the patient on Bactrim fluconazole. Continue the patient on prednisone p.o. Continue to follow infectious disease input and recommendation Continue to follow chest x-ray Continue to follow ABG Continue bronchodilators per respiratory therapist Replace electrolytes IV per protocol A.m. labs GI and DVT prophylaxis. Further orders to follow based on the above results Disposition: Remains admitted to the ICU, pending improvement clinical condition. Prognosis is poor guarded. Total ICU time spent greater than 30 minutes. GAIL WALDRON MD Jun 16, 2024 09:58
--- NOTE | 2024-06-16 10:54 | PN ---
[facility] PROGRESS NOTE Date Patient Seen: Jun 16, 2024 Time of Visit: 10:54 Supervising Physician: Jamar lundberg MD Primary Care Physician: Stu Foss MD Outpatient Specialists: Inpatient Consults: Pulmonology PROBLEM LIST: Severe ARDS Acute hypoxemic respiratory failure s/p intubation 06/11/24 requiring proning Bilateral lower lobe bacterial pneumonia + MRSA POA, +Azra Confirmed PCP PNA per Ag (serology), POA Pneumomediastinum on x-ray 06/12/24 Disseminated herpes virus infection Elevated DDIMER r/o PE & DVT New HIV/AIDS positive POA Hyponatremia and hyperkalemia, suspected Bactrim induced Normocytic anemia, not POA Neutrophilia, POA Hyperglycemia, POA Obesity BMI of 32.3 Former smoker Fatty liver, POA Moderate hypoalbuminemia POA Previous COVID-19 infection INTERVAL HISTORY: 06/10/2024: At the time of my evaluation, the patient was lying in bed. Per the patient report, she had a anxiety episode overnight. He is awake alert and oriented x4. She remains intermittently febrile most recent 100.8. On a monitor, the patient is normotensive without any pressor support. She remains tachycardic up in the 120s. The patient remains on oxygenation with high-flow nasal cannula 30 L/70% FiO2 and denies any hypoxemic event. She continues to feed orally, no complaint of nausea vomiting or diarrhea. The patient reports voiding without difficulty. Intake and output shows a intake of 2006 units 60.0, output of 2500 and a positive balance of 160.0. Laboratory data review of significance showed no changes of concern on CBC, chemistry panel of significance showed a sodium count of 128, potassium of 3.8, chloride of 93 and the remaining parameters were unremarkable. Blood cultures showing no growth. A chest CT was ordered and is pending. No other complaint. 06/11/24: 02:07 RN called. Reports patient is tachypneic, RR 30s-40s bpm. On BiPAP at 100% FiO2,12/6, rate 16 bpm. Patient was changed to AVAPS and ABGs were redrawn, pH 7.413, PO2 69.4, pCO2 42.4. The patient is on Precedex but she had to go down on Precedex due to hypotension. RN reports that patient is not sedated with Precedex due to having to slow down hypotension. Added Mario-Syn ephrine IV drip. 03:38 RN called that patient remains tachypneic. Lasix 40 mg IV x1 dose ordered, Solu-Medrol IV 60 IV q.6, BNP, and D-dimer were ordered. I went to assess the patient at bedside. I explained to the patient and significant other at bedside the ABGs results. I informed that the patient is tachypneic, RR 44 bpm, tachycardic 123, and ABGs showed hypoxia at 69.4. I spent a lengthy amount of time educating the patient on her guarded/critical condition. They verbalized understanding. Both of them report that they are not ready for intubation, but we will allow intubation if does not improve. I showed them of the retractions that the patient has and the abdominal breathing. They verbalized understanding and continued to request to hold on intubation for now. Per chart review CTA on 05/24/2024 was negative for a PE. Bilateral pulmonary infiltrates with segmental atelectasis. Two days BNP was WNL. D-dimer was 4641. 06/11/24 AM rounds: Patient's oxygenation status not improving on BiPAP with the FiO2 100%. Saturating 88-89% patient appears tachypneic pale and tachycardic. Spoke to patient and informed of need for intubation. Patient requested to wait for her son to be at bedside. once son was at bedside informed them of the need for intubation and risks and benefits. In order to alleviate some of the pt's anxiety and fear of intubation we has son at her side until sedated prior to intubation in which then son stepped out and patient was intubated per Dr. Lundberg. Still on the ventilator patient is saturating 89%, ventilator settings adjusted to assist control volume control tidal volume 500 respiratory rate of 18 FiO2 of 100% and PEEP of 10, plateau pressure 23. Decision was made for proning. Added Nimbex as a paralyzing agent per protocol drip. Informed pt's son on need for a central line due to patient requiring multiple drips. Sodium in agreement. Otherwise on CBC similar to yesterday, chemistry kidneys are doing well with a creatinine of 0.6 with a GFR of 109 sodium has improved to 130 potassium 3.8 chloride of 94 BUN of 30. OG tube to be placed and start tube feedings. Pt with multiple mouth sores concern for herpes simplex. Valganciclovir 900 mg p.o. b.i.d. started per pharmacy to dose. 06/12/24-patient assessed in room two eight in the ICU, patient is sedated and paralyzed with Nimbex drip, fentanyl and Versed. She is hemodynamically stable. On mechanical ventilation on assist-control volume control tidal volume 500 respiratory rate of 24 FiO2 of 60% with a PEEP of 10 saturating 99%. Pt was prone that 20:00 yesterday and is due for supine position at noon today. Urine output 3.9 L with a-1.4 L balance. CBC unremarkable. Chemistries sodium is 131 chloride 95 carbon dioxide 33 BUN 28 creatinine 0.5 and GFR of 114, glucose 156 mg/dL. Total calcium 8.0 albumin of 1.7. With a calcium correction for hypoalbuminemia of 9.8 mg/dL. ABG for this morning with a pH of 7.36 pCO2 of 47, PO2 of 122 on FiO2 of 80% and bicarb of 27.7. Chest x-ray shows interval development of pneumomediastinum as well as subcutaneous consistent with a emphysema in the neck. Tubes and all lines appear in good position there are diffuse bilateral infiltrates which otherwise unchanged. 06/13/24- patient is in the ICU critically ill w/ grim prognosis. She is currently prone saturating in the low 90s and sinus tachycardic 116 BPM. Blood pressure is 115/82 with respiratory rate of 24 on the vent currently sedated and paralyzed with fentanyl, Versed drip and Nimbex gtt per protocol. Urine output was 4.7 L in the last 24 hours with a balance of -3.6 L.On laboratory sodium is 132 potassium is 4.0 chloride of 98 carbon dioxide of 31, BUN 27 creatinine of 0.4 with a GFR of 121 improved from yesterday glucose 141 mg/dL albumin 1.5. Chest x-ray four this morning with a increased bilateral pulmonary infiltrates, increasing pneumomediastinum, tubes and lines are in good position. There is no pneumothorax. Latest ABGs with a pH of 7.34 with a pCO2 of 55 PO2 of 72.3 bicarb of 29.5 and ABGs saturation of 93.5. PF ratio 72. Patient remains prone to optimize oxygenation. Plateu pressures have increased to above 30. Ventilator changes as follows: Tidal volume of 425 respiratory rate of 26 FiO2 100% and PEEP of 7 with plateau pressure goals of less than 30. I have spoken to the son at the bedside and updated him on current clinical findings. I discussed code status with patient's son. For now patient remains full code. 06/14/24-patient continues critically ill, with poor prognosis. She continues sedated paralyzed and intubated. Currently on drips of fentanyl at 150 mcg per hour and Versed and 9mg per hour and Nimbex of 2 micrograms/kg/min. Patient is prone and intubated latest ABGs: PH of 7.33, pCO2 of 69 PO2 of 73.8 and bicarb of 36 base excess 8.2. Ventilator adjusted to ACVC tidal volume of 450 respiratory rate of 28 FiO2 of 100% and PEEP of 10. We will repeat ABG in a couple of hours. She is off pressors blood pressure 109/65 with a map of 80 heart rate of 104 improved from yesterday respiratory rate of 28 on the ventilator saturating 91% with a FiO2 of 100% on the vent. She has been afebrile with a T-max of 99.1 in the last 24 hours and a T low of 97.3. Urine output has decreased to 1 L in the last 24 hours and balance is positive 829 mL. On laboratory WBCs decreased to three H&H 8.6/25.4 platelet count is normal 132 K neutrophils of 90.5 decreasing. Sodium 132 similar to yesterday with a chloride of 95 carbon dioxide 37 BUN of 17 creatinine 0.5 GFR 114 glucose of 157 mg/dL total calcium of 7.6 pseudo hypocalcemia secondary to hypoalbuminemia 1.4 total protein 5.0. On chest x-ray diffuse pulmonary infiltrates oriented to bilateral lungs multilobular. Patient's prognosis is grim I have spoken to son yesterday regarding to code status as for now patient remains full code. 06/15/24- No major overnight events. Pt continues prone. Intubated, sedated and paralyzed. Drips: Fentanyl at 150mcg/hr, Versed 9 mg/HR and Nimbex at 2 mcg/kg/min. We will allow some permissive hypercapnia if needed, as a lung protective ventilation strategy. ABG shows: PH of 7.35 pCO2 of 63 PO2 of 98 trend bicarb of 34.8. Vent settings adjusted to: ACVC FIO2 of 100, Tv 425, Peep of 8. Went down on the PEEP to 8 due to CXR w/ worsening pneumomediastinum. On chest x-ray patient continues with severe consolidation of both lungs are again seen. Unchanged serially. WBCs are 2.5 today H&H is 9/26.6 with a platelet count of 125 K. chemistries sodium is 134 chloride of 95 with a carbon dioxide of 39 BUN of 16 and creatinine of 0.4 with a GFR of 121. Glucose 168 mg/dL total calcium 7.5 total bili 0.1 total protein of 5.0 albumin of 1.4. Pt continues with tube feedings and is tolerating them well. I spoke to son who was at bedside, informed him that there has not been improvement in the last 24 hours despite the effort and extreme measures such as proning and paralyzing. I answered all his questions and verbalized that he understands. That he is taking it one day at a time. Pt remains full code. 06/16/24-No major overnight events. Pt continues prone. Intubated, sedated and paralyzed. Drips: Fentanyl at 150mcg/hr, Versed 9 mg/HR and Nimbex at 2 mcg/kg/min. Patient has poor prognosis. Serologies positive for HSV I DNA PCR and HSV DNA PCR, consistent with a disseminated herpes virus infection. No marked improvement. ABG with a pH of 7.435/pCO2 63/PO2 of 91.5/and bicarb of 41 .2 on assist-control volume control tidal volume of 425 respiratory rate of 28 with a FiO2 of 100% and PEEP of 8. Patient is not on pressors hemodynamically stable. Patient has been afebrile with a T-max of 99 and a T low of 97.3 in the last 24 hours. Urine output 2.2 L and a balance of 860 positive. WBCs are three H&H is 8.4/24.7 with a platelet count of 121 K. chemistries sodium is 133 chloride 95 carbon dioxide 41 BUN 22 creatinine 0.5 and GFR 114. Patient has developed contraction alkalosis we will hold Lasix. Glucose 152 mg/dL total calcium 7.6 albumin of 1.4. Total bili 0.1 unchanged. We will go ahead and supine her and challenge to see if she maintains for O2 sats above 88%. If patient is unable to maintain O2 sats above 88% we will turned her back to prone position. REVIEW OF SYSTEMS: Unable to obtain ROS from patient due to patient's medical condition. PHYSICAL EXAM: GENERAL: Sedated and intubated, currently prone HEENT: Sclera non icteric, dry scabs and sores to mucosa, sore to rt cheek NECK: short neck no JVD, trachea midline LUNGS: diminished to bilateral breath sounds no wheezing. HEART: Regular rate and rhythm. Normal S1 and S2, without murmurs ABD: Abdomen soft, nontender. Bowel sounds present EXT: No clubbing cyanosis or edema, sore to sacral area, NEURO: Intubated sedated and paralyzed. Vital Signs (last 8hr) Date Time Temp Pulse Resp B/P (MAP) Pulse Ox O2 Delivery O2 Flow Rate FiO2 06/16/24 10:28 88 100 06/16/24 08:30 89 28 119/61 (80) 96 06/16/24 08:15 91 28 114/60 (78) 96 117/70 (86) 06/16/24 08:00 97.9 92 28 117/60 (79) 95 06/16/24 08:00 95 Ventilator+ 100 06/16/24 07:45 94 28 112/59 (76) 95 120/66 (84) 06/16/24 07:30 92 28 118/60 (79) 95 06/16/24 07:15 94 28 113/59 (77) 95 118/68 (85) 06/16/24 07:00 88 28 118/61 (80) 95 06/16/24 06:48 90 28 06/16/24 06:46 89 28 113/60 (77) 95 115/71 (86) 06/16/24 06:46 88 100 06/16/24 06:31 90 28 120/63 (82) 96 06/16/24 06:16 93 28 116/63 (80) 96 121/73 (89) 06/16/24 06:01 93 28 119/63 (81) 96 06/16/24 05:46 93 29 109/60 (76) 95 117/69 (85) 06/16/24 05:31 91 28 112/59 (76) 96 06/16/24 05:16 91 28 106/59 (75) 95 118/69 (85) 06/16/24 05:01 90 28 112/60 (77) 96 06/16/24 04:46 92 29 110/62 (78) 96 116/68 (84) 06/16/24 04:31 92 28 108/59 (75) 96 06/16/24 04:16 90 28 104/61 (75) 96 116/70 (85) 06/16/24 04:01 98.6 90 28 112/62 (79) 96 06/16/24 04:00 100 06/16/24 03:46 92 28 104/59 (74) 95 117/68 (84) 06/16/24 03:31 93 28 111/61 (78) 95 06/16/24 03:16 98 29 109/61 (77) 95 118/70 (86) 06/16/24 03:11 96 Ventilator+ 100 06/16/24 03:01 97 28 110/60 (77) 95 LABS: Hematology Labs: Test 06/16/24 04:30 Range/Units White Blood Count 3.0 L 4.8-10.8 K/uL Red Blood Count 2.59 L 4.00-5.50 MIL/uL Hemoglobin 8.4 L 12.0-16.0 g/dL Hematocrit 24.7 L 36-48 % Mean Corpuscular Volume 95.4 79-99 fL Mean Corpuscular Hemoglobin 32.4 27.0-33.0 pg Mean Corpuscular Hemoglobin Concent 34.0 32.0-36.0 g/dL Red Cell Distribution Width 11.3 11.0-15.5 % Platelet Count 121 L 130-400 K/uL Mean Platelet Volume 10.6 H 7.5-10.5 fL Immature Granulocyte % (Auto) 1.0 0-1 % Neutrophils (%) (Auto) 93.1 H 40.0-77.0 % Lymphocytes (%) (Auto) 3.6 L 21.0-51.0 % Monocytes (%) (Auto) 2.3 L 3.0-13.0 % Eosinophils (%) (Auto) 0.0 0.0-8.0 % Basophils (%) (Auto) 0.0 0.0-5.0 % Neutrophils # (Auto) 2.8 1.8-7.7 K/uL Lymphocytes # (Auto) 0.1 L 1.0-4.8 K/uL Monocytes # (Auto) 0.1 0.1-1.0 K/uL Eosinophils # (Auto) 0.00 0.00-0.70 K/uL Basophils # (Auto) 0.00 0.00-0.20 K/uL Absolute Immature Granulocyte (auto 0.03 0-1 K/uL Segmented Neutrophils % 92 H 40-70 % Band Neutrophils % 1 0-2 % Lymphocytes % (Manual) 3 L 22-44 % Monocytes % (Manual) 4 2-9 % Nucleated Red Blood Cells 0.0 0.0-0.19 % Differential Comment MANUAL DIFFERENTIAL White Cell Morphology Comment Platelet Morphology Comment See comments Red Blood Cell Morphology HYPOCHROM CELLS 1+ Chemistry Labs: Test 06/16/24 04:30 06/15/24 03:53 Range/Units Sodium Level 133 L 136-145 mmol/L Potassium Level 4.6 3.5-5.1 mmol/L Chloride Level 95 L 101-111 mmol/L Carbon Dioxide Level 41 *H 21-32 mmol/L Blood Urea Nitrogen 22 H 7-18 mg/dL Creatinine 0.5 0.5-1.0 mg/dL Glomerular Filtration Rate Calc 114 >90 mL/min Random Glucose 152 H 70-105 mg/dL Total Calcium 7.6 L 8.5-10.1 mg/dL Total Bilirubin 0.1 L 0.2-1.0 mg/dL Aspartate Amino Transf (AST/SGOT) 34 10-37 U/L Alanine Aminotransferase (ALT/SGPT) 47 12-78 U/L Alkaline Phosphatase 89 50-136 U/L Total Protein 4.7 L 6.0-8.3 g/dL Albumin 1.4 L 3.5-5.0 g/dL Magnesium Level 2.20 1.80-2.40 mg/dL DIAGNOSTICS / RADIOLOGY RESULTS: [ ] PLAN Continue sedation with fentanyl, versed and paralyze w/ nimbex and prone manage vent per abg maintain plateu pressure of < 30 Wean PEEP as tolerated 1st then FiO2 due to pneumomediastinum. Continue steroids Continue Atrovent q.4 hours. ABX per ID Challenge and supine her for a few hours if patient unable to sustain O2 sats above 88% turned her back to prone. POA is son NEURO: Minimize central acting medications as possible. Fall Precautions. Well lighted room through the day and minimize interruptions through the night to prevent acute delirium. PULMONARY: Supplemental 02 as needed Titrate Fio2 to keep Spo2 > or = 90% DuoNebs and CPT as needed IS hourly while awake for pulmonary hygiene Out of bed to chair as tolerated CARDIOVASCULAR: Follow hemodynamics. Titrate vasopressor to keep MAP >65 or systolic blood pressure >95mmHg telemetry LINES: CVC RT IJ Arterial line ET tube' FC OG tube GI & NUTRITION: Continue nutritional support Aspirations precautions Prokinetic agents and laxatives as needed KIDNEYS & ELECTROLYTES: Strict monitoring of intake and output Daily weights Avoid nephrotoxic agents Monitor electrolytes and replace as needed Goal urine output of 30mL/hr or 0.5mL/kg/hr ENDOCRINE: Maintain blood glucose between 100-180 at all times. Insulin sliding scale for blood glucose management INFECTIOUS DISEASE: Trend temperature. Clarke-culture if febrile. Sputum culture from 05/23/24 positive for MRSA, Betty albicans Pneumocystis carinii antigen positive Panculture: 06/02/24 Blood cultures Urine cultures Respiratory culture Antibiotics: Bactrim DS Fluconazole Mycelex Valganciclovir meropenem HEMATOLOGY & COAGULATION: Monitor H&H. Keep Hgb > 7 Transfuse 1 unit of PRBC for Hgb < 7 Transfuse 1 pack of platelets of platelets < 20, 000 Watch for any signs and symptoms of bleeding SKIN: Pressure ulcer prevention per facility protocol Rehab: PT/OT Prophylaxis: GI: Pepcid DVT: Lovenox Code Status: Full Resuscitation Disposition: ICU Other: Critical care time I personally spent 45 minutes of critical care time in treatment of this patient. This includes patient management, time at bedside, time reviewing tests, labs, appropriate images and studies, documentation, and patient care coordination. This time excludes separately billable procedures. MARGO LOGAN Jun 16, 2024 10:54
--- NOTE | 2024-06-16 13:46 | NUR ---
PT HAS BEEN PLACED SUPINE ORDERED. ORAL CARE DONE. PARTIAL BED BATH COMPLETED. ET TUBE RE-TAPED . PUPILS ARE EQUAL/SLUGGISH. NO COUGH, NO GAG. TRAIN OF 4= 2:4. SEDATION AND PARALYTIC INCREASED FOR COMFORT/SAFETY. ELSIE AND RACHEL CARE DONE. NO VISIBLE SKIN LESIONS TO TRUNK AND LIMBS
--- NOTE | 2024-06-16 16:02 | NUR ---
RESPIRATORY THERAPY HAD TO AMBU-BAG PT FOR A SHORT MOMENT FOR VENT MAINTENANCE. 02 SAT HAS NOW DROPPED DOWN TO 86%. I WILL ALLOW PT TO RECOVER ORDERED BY DR LIRA FOR THE NEXT FEW HOURS STARTING NOW. MONE ICU LEGAL ASSISTANT CAME TO BEDSIDE TO EVALUATE. NO NEW ORDERS RECEIVED
--- NOTE | 2024-06-16 17:07 | NUR ---
bagged pt with ambu bag @100%, felt resistance, lavaged and removed a few mucus plugs Addendum: 06/16/24 at 1712 by RT ARUNA RT Amended: Links added.
--- NOTE | 2024-06-16 19:20 | NUR ---
HAND OFF REPORT GIVEN TO VANDANA CARBAJAL
[2024-06-17] VITALS (62 sets, daily range): BP systolic 107–142; BP diastolic 52–81; PULSE 79–101; RESP 4–81; TEMP 97.2–97.8; O2SAT 91–96
[2024-06-17] MEDS: FENTanyl 2500MCG+NS 250ML 250 ML IV ONE (05:22)
[2024-06-17] MEDS ORDERED: FENTanyl CITRate PF 0.05 MG/ML 2,500 MCG in 0.9% NACL 250ML 200 ML IV PRN (05:30)
[2024-06-17 05:46] LABS: HEMATOCRIT 25.9 % (36-48); IMMATURE GRANULOCYTE ABSOLUTE 0.08 K/uL (0-1); LYMPHOCYTES # (AUTO) 0.1 K/uL (1.0-4.8); LYMPHOCYTES % (AUTO) 4.3 % (21.0-51.0); MEAN CORPUSCULAR HGB CONC 33.2 g/dL (32.0-36.0); MEAN CORPUSCULAR VOLUME 96.3 fL (79-99); MONOCYTES % (AUTO) 1.4 % (3.0-13.0); NEUTROPHILS # (AUTO) 2.5 K/uL (1.8-7.7); NEUTROPHILS % (AUTO) 91.4 % (40.0-77.0); PLATELET COUNT (AUTO) 112 K/uL (130-400); RED BLOOD CELL COUNT(AUTO) 2.69 MIL/uL (4.00-5.50); RED CELL DISTRIBUTION WIDTH 11.5 % (11.0-15.5); WHITE BLOOD COUNT (AUTO) 2.8 K/uL (4.8-10.8)
[2024-06-17 06:14] LABS: ALBUMIN 1.4 g/dL (3.5-5.0); BILIRUBIN,TOTAL 0.1 mg/dL (0.2-1.0); CREATININE 0.3 mg/dL (0.5-1.0); POTASSIUM 5.1 mmol/L (3.5-5.1); TOTAL PROTEIN, SERUM 4.5 g/dL (6.0-8.3)
[2024-06-17 07:31] LABS: ABG BASE EXCESS 11.2 mmol/L (-2.0-3.0); ABG HCO3 39.7 mmol/L (21.0-28.0); ABG OXYGEN SATURATION 95.2 % (94.0-98.0); ABG PCO2 70 mmHg (32-45); ABG PH 7.372 (7.350-7.450); PO2, ARTERIAL BG 80.5 mmHg (83.0-108.0); VENT MODE, BG AC (ROOM AIR)
[2024-06-17 07:31] LABS: BAND NEUTROPHILS % (MANUAL) 6 % (0-2); LYMPHOCYTES % (MANUAL) 3 % (22-44); MAN.DIFF COMMENT-IMPRESSION MANUAL DIFFERENTIAL; MONOCYTES % (MANUAL) 2 % (2-9); SEGMENTED NEUTROPHILS % 89 % (40-70); TOTAL CELLS COUNTED 100
[2024-06-17 07:32] LABS: WBC MORPHOLOGY CONSISTENT W/DIFF
--- NOTE | 2024-06-17 09:39 | PN ---
[facility] PROGRESS NOTE Date Patient Seen: Jun 17, 2024 Time of Visit: 09:39 Supervising Physician: Satya Lundberg MD Primary Care Physician: Stu Foss MD Outpatient Specialists: Inpatient Consults: Pulmonology PROBLEM LIST: Severe ARDS Acute hypoxemic respiratory failure s/p intubation 06/11/24 requiring proning Bilateral lower lobe bacterial pneumonia + MRSA POA, +Azra Confirmed PCP PNA per Ag (serology), POA Pneumomediastinum on x-ray 06/12/24 Disseminated herpes virus infection Elevated DDIMER r/o PE & DVT New HIV/AIDS positive POA Hyponatremia and hyperkalemia, suspected Bactrim induced Normocytic anemia, not POA Neutrophilia, POA Hyperglycemia, POA Obesity BMI of 32.3 Former smoker Fatty liver, POA Moderate hypoalbuminemia POA Previous COVID-19 infection INTERVAL HISTORY: Day # 6 post Intubation. Patient's condition is critical. Patient has a grim prognosis. This morning she was assessed in room 208 in the ICU. She tolerated being supine with O2 sats above 88% since turned yesterday. Continues on sedation and paralyzed with fentanyl at 200 mcg per hour, Versed 10 milligrams/hour, and Nimbex at 2 micrograms/kilogram per minute. Current vital signs blood pressure of 127/66 heart rate in the 80s respiratory rate of 28 on the vent saturating 93% with a FiO2 of 100% and afebrile. Latest ABGs show a pH of 7.37 pCO2 of 70 PO2 of 80 bicarb of 39.7 with vent settings of assist control volume control tidal volume of 425 respiratory rate of 28 FiO2 of 100% and PEEP of 8. PF ratio 80.5. Urine output 1.1 L with a balance of + 2.7 L. on chest x- ray findings consistent with severe persistent bilateral pulmonary opacification. ET tube in correct position. Resolution of the previously seen pneumomediastinum. No pneumothorax.Will continue to follow ABX per ID. There Is No Family At The Bedside At Time Of My Visit. REVIEW OF SYSTEMS: Unable to obtain ROS from patient due to patient's medical condition. PHYSICAL EXAM: GENERAL: Sedated and intubated, currently SUPINE HEENT: Sclera non icteric, dry scabs and sores to mucosa, sore to rt cheek NECK: short neck no JVD, trachea midline LUNGS: diminished to bilateral breath sounds no wheezing. HEART: Regular rate and rhythm. Normal S1 and S2, without murmurs ABD: Abdomen soft, nontender. Bowel sounds present EXT: No clubbing cyanosis or edema, sore to sacral area, NEURO: Intubated sedated and paralyzed. Vital Signs (last 8hr) Date Time Temp Pulse Resp B/P (MAP) Pulse Ox O2 Delivery O2 Flow Rate FiO2 06/17/24 09:06 86 100 06/17/24 09:06 100 06/17/24 08:00 97.5 06/17/24 08:00 96 Ventilator+ 100 06/17/24 07:30 93 28 122/62 (82) 95 126/74 (91) 06/17/24 07:00 95 28 123/61 (81) 95 100 130/80 (97) 06/17/24 06:24 101 33 06/17/24 06:21 99 100 06/17/24 06:00 101 4 131/63 (85) 95 134/76 (95) 06/17/24 05:30 100 15 131/64 (86) 96 136/76 (96) 06/17/24 05:00 99 33 138/70 (92) 96 135/80 (98) 06/17/24 04:30 98 33 141/72 (95) 96 136/80 (98) 06/17/24 04:00 96 Ventilator+ 100 06/17/24 04:00 97.3 99 81 134/71 (92) 94 129/78 (95) 06/17/24 04:00 97.3 06/17/24 04:00 100 06/17/24 03:30 98 133/70 (91) 94 128/80 (96) 06/17/24 03:00 96 119/64 (82) 94 118/69 (85) 06/17/24 02:49 91 28 06/17/24 02:44 91 100 06/17/24 02:30 96 28 119/64 (82) 94 118/69 (85) 06/17/24 02:00 88 28 112/62 (79) 93 112/69 (83) LABS: Hematology Labs: Test 06/17/24 05:26 Range/Units White Blood Count 2.8 L 4.8-10.8 K/uL Red Blood Count 2.69 L 4.00-5.50 MIL/uL Hemoglobin 8.6 L 12.0-16.0 g/dL Hematocrit 25.9 L 36-48 % Mean Corpuscular Volume 96.3 79-99 fL Mean Corpuscular Hemoglobin 32.0 27.0-33.0 pg Mean Corpuscular Hemoglobin Concent 33.2 32.0-36.0 g/dL Red Cell Distribution Width 11.5 11.0-15.5 % Platelet Count 112 L 130-400 K/uL Mean Platelet Volume 9.8 7.5-10.5 fL Immature Granulocyte % (Auto) 2.9 H 0-1 % Neutrophils (%) (Auto) 91.4 H 40.0-77.0 % Lymphocytes (%) (Auto) 4.3 L 21.0-51.0 % Monocytes (%) (Auto) 1.4 L 3.0-13.0 % Eosinophils (%) (Auto) 0.0 0.0-8.0 % Basophils (%) (Auto) 0.0 0.0-5.0 % Neutrophils # (Auto) 2.5 1.8-7.7 K/uL Lymphocytes # (Auto) 0.1 L 1.0-4.8 K/uL Monocytes # (Auto) 0.0 L 0.1-1.0 K/uL Eosinophils # (Auto) 0.00 0.00-0.70 K/uL Basophils # (Auto) 0.00 0.00-0.20 K/uL Absolute Immature Granulocyte (auto 0.08 0-1 K/uL Segmented Neutrophils % 89 H 40-70 % Band Neutrophils % 6 H 0-2 % Lymphocytes % (Manual) 3 L 22-44 % Monocytes % (Manual) 2 2-9 % Nucleated Red Blood Cells 0.0 0.0-0.19 % Differential Comment MANUAL DIFFERENTIAL White Cell Morphology Comment CONSISTENT W/DIFF Platelet Morphology Comment See comments Red Blood Cell Morphology HYPOCHROM CELLS 1+ Chemistry Labs: Test 06/17/24 05:26 Range/Units Sodium Level 134 L 136-145 mmol/L Potassium Level 5.1 3.5-5.1 mmol/L Chloride Level 97 L 101-111 mmol/L Carbon Dioxide Level 41 *H 21-32 mmol/L Blood Urea Nitrogen 20 H 7-18 mg/dL Creatinine 0.3 L 0.5-1.0 mg/dL Glomerular Filtration Rate Calc 129 >90 mL/min Random Glucose 222 H 70-105 mg/dL Total Calcium 7.7 L 8.5-10.1 mg/dL Total Bilirubin 0.1 L 0.2-1.0 mg/dL Aspartate Amino Transf (AST/SGOT) 48 H 10-37 U/L Alanine Aminotransferase (ALT/SGPT) 59 12-78 U/L Alkaline Phosphatase 103 50-136 U/L Total Protein 4.5 L 6.0-8.3 g/dL Albumin 1.4 L 3.5-5.0 g/dL DIAGNOSTICS / RADIOLOGY RESULTS: [ ]IMAGING REPORT Signed PATIENT: RIO OSORIO MR#: [id number] : 1975 SEX: F AGE: 49 LOCATION: [facility] ORDER 2300 STATUS: ADM IN REPORT#: [id number] SERVICE 0600 REASON: intubated ORDERING PHYSICIAN: MARGO LOGAN PROCEDURE: CXR1VW - CHEST 1VW Exam Type: CHEST 1VW Clinical Information: intubated Comparison: June 15, 2024 Findings and impression: Severe persistent bilateral pulmonary opacification. Life support lines as noted before. Resolution of the previously seen pneumomediastinum. No other interval changes. DICTATED BY: FITZ NICOLAS MD DATE: 06/17/24 1013 ELECTRONICALLY SIGNED BY: FITZ NICOLAS MD DATE: 06/17/24 1016 PLAN Continue sedation with fentanyl, versed wean off Nimbex gtt rocuronium pushes as needed for vent dyssynchrony manage vent per abg maintain plateu pressure of < 30 Continue steroids Continue Atrovent q.4 hours. ABX per ID son is POA NEURO: Minimize central acting medications as possible. Fall Precautions. Well lighted room through the day and minimize interruptions through the night to prevent acute delirium. PULMONARY: Supplemental 02 as needed Titrate Fio2 to keep Spo2 > or = 90% DuoNebs and CPT as needed IS hourly while awake for pulmonary hygiene Out of bed to chair as tolerated CARDIOVASCULAR: Follow hemodynamics. Titrate vasopressor to keep MAP >65 or systolic blood pressure >95mmHg telemetry LINES: CVC RT IJ Arterial line ET tube' FC OG tube GI & NUTRITION: Continue nutritional support Aspirations precautions Prokinetic agents and laxatives as needed KIDNEYS & ELECTROLYTES: Strict monitoring of intake and output Daily weights Avoid nephrotoxic agents Monitor electrolytes and replace as needed Goal urine output of 30mL/hr or 0.5mL/kg/hr ENDOCRINE: Maintain blood glucose between 100-180 at all times. Insulin sliding scale for blood glucose management INFECTIOUS DISEASE: Trend temperature. Clarke-culture if febrile. Sputum culture from 05/23/24 positive for MRSA, Betty albicans Pneumocystis carinii antigen positive Panculture: 06/02/24 Blood cultures Urine cultures Respiratory culture Antibiotics: Bactrim DS Fluconazole Mycelex Valganciclovir meropenem HEMATOLOGY & COAGULATION: Monitor H&H. Keep Hgb > 7 Transfuse 1 unit of PRBC for Hgb < 7 Transfuse 1 pack of platelets of platelets < 20, 000 Watch for any signs and symptoms of bleeding SKIN: Pressure ulcer prevention per facility protocol Rehab: PT/OT Prophylaxis: GI: Pepcid DVT: Lovenox Code Status: Full Resuscitation Disposition: ICU Other: Critical care time I personally spent 45 minutes of critical care time in treatment of this patient. This includes patient management, time at bedside, time reviewing tests, labs, appropriate images and studies, documentation, and patient care coordination. This time excludes separately billable procedures. MARGO LOGAN Jun 17, 2024 09:39
[2024-06-17] MEDS: furoSEMIDE 20MG VIAL IV SCH ×2 (09:46→23:39)
--- NOTE | 2024-06-17 10:16 | HMCIMG ---
Exam Type: CHEST 1VW Clinical Information: intubated Comparison: June 15, 2024 Findings and impression: Severe persistent bilateral pulmonary opacification. Life support lines as noted before. Resolution of the previously seen pneumomediastinum. No other interval changes.
--- NOTE | 2024-06-17 14:28 | PN ---
[facility] PROGRESS NOTE Date of Service: Jun 17, 2024 Time of Service: 14:22 SUBJECTIVE: [ ] Ms. Abdullahi is a 49-year-old female that was seen and examined today on 05/23/2024. Patient is a good historian and personal health. Patient's son Dagoberto Salcido is at bedside. Patient states that she came to the emergency department with a chief complaint of shortness of breath. Onset was two weeks ago. Location is to lungs. Duration is on and off. Character is described as "easily running out of air." Initially shortness and breath was only aggravated with climbing one or two flights of stairs but symptoms have progressively worsened and patient becomes short of breath even standing or walking short distances. There was no alleviating factors however previously symptoms were being controlled with daily morning albuterol nebulizer treatments. Patient denies any associated chest pain or dizziness. Patient reports an episode of COVID in December 2023. emergency department CBC unremarkable, chemistry unremarkable, urinalysis unremarkable, influenza screen negative, COVID negative, blood gas shows PO2 less than 45. Chest x-ray shows left lower lung pneumonia and minimal right lung base atelectasis. Upon arrival to the emergency department patient was placed on a BiPAP due to respiratory distress. 05/24/2024-patient was seen and examined at the bedside, still on BiPAP. Patient is able to speak, and says she feels much better than before. Patient says after COVID in December she developed severe bronchitis and she was on Solu-Medrol and albuterol, which did not help her much and later she had high fevers and shortness of breath which is when she came to the ED.Vitals afebrile pulse 76, RR 38 tachypneic , blood pressure 115/68, pulse oxygen 99 on BiPAP flow of 60. On ABG pH 7.47, pCO2 29, PO2 109.4, oxygen saturation 98.3. [id number] potassium 4.1 BUN15 creatinine 0.5 GFR 114. We will closely monitor the patient. Meat Trimmer consult noted waiting on the recommendation 05/25/24 patient was seen and examined and case discussed with RN and family by the bedside. She was breathing better today. She has been on BiPAP all night but now he was on 100% non-rebreather with further efforts to continue to wean the oxygen requirements down. 05/27/24 patient is seen and examined at bedside, acute events overnight, case discussed with the RN, BP 131/64, afebrile, saturating 96-97% via Ventimask, FiO2 40%. The patient admits cough productive of clear phlegm. Serology tests reviewed, HIV preliminary positive, discussed with the patient. 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 We will continue the patient on IV antibiotics, continue fluconazole, continue to follow Pulmonary and ID input and recommendations. After provided in the preliminary results of HIV test, she denies any suicidal or homicidal ideations. 05/28 patient has been seen and examined, no acute events overnight, case discussed with the RN, during my visit patient is sitting comfortably in the chair, hemodynamically stable, off Ventimask, currently on 10 L via nasal cannula, saturating 98%, tolerated BiPAP overnight. she feels better, less shortness a breath, still admits cough productive of yellow phlegm. No chest pain. Getting IV antibiotics during my visit. HIV P24 antigen, nonreactive. We will continue to follow Pulmonary and Infectious Disease input and recommendations. 05/29 patient has been seen and examined, no acute events overnight, case discussed with the RN, during my visit patient is sitting comfortably in the chair, hemodynamically stable, remains on 10 L via nasal cannula, saturating 98%, still admits cough productive of yellow phlegm. No chest pain. Getting IV antibiotics during my visit. HIV P24 antigen, nonreactive. Pending CD4 cell count. We will continue to follow Pulmonary and Infectious Disease input and recommendations. 05/30 the patient has been seen and examined, no acute events overnight, BP 114/66, during my visit she is on Ventimask, saturating 95%, FiO2 60%. Without the Ventimask the patient desaturates to the low 70s. Patient tolerating BiPAP during the night. Still admits cough productive of thick yellow phlegm, no chest pain. Results of CD4 cell count reviewed, discussed with the patient. We will continue broad-spectrum IV antibiotics. Continue to follow Pulmonary and Infectious Disease input and recommendations. 05/31 the patient has been seen and examined, upgraded to the ICU, during my visit she is sitting in the chair, BP 113/72, heart rate of 109, she is on Oxymizer, 30 L, FiO2 100%. She is alert oriented x3, still admits cough productive of thick yellow phlegm, no chest pain. Hemoglobin 12.9, hematocrit 36.6, WBC 14.6. ABG with pH 7.4, pCO2 40, PO2. Chest x-ray shows left lower lo be infiltrate consistent with pneumonia. She is getting IV antibiotics during my visit. Patient will remain in the ICU, continue to follow critical Care as well as infectious disease input and recommendations. 06/01 patient is seen and examined, sitting comfortable in chair, awake, following commands, remains on high-flow oxygen, FiO2 70%, 30 L, BP 117/67, heart rate of 78, respiratory rate of 30-36, saturating 100%, CBC with a hemoglobin 13.6, hematocrit 38.9, WBC 12.4. Platelet count of 341. Chest x-ray showing persistent left lung infiltrate, cardiac size and mediastinum unremarkable. The bony structures are within the normal limits. Patient getting IV antibiotics during my visit. Patient to continue with the high-dose steroids. Serology test positive for Pneumocystis sandra. Patient on Bactrim two tablets p.o. t.i.d.. Continue also doxycycline and cefepime IV. Continue to follow infectious disease input and recommendation. Continue to follow Pulmonary input and recommendations. 06/02 patient is seen and examined at bedside, currently in prone position, alert oriented x3. CPT started last night, she has started having more loose phlegm expectorated. BP 114/74, tachycardic 114, saturating 95%, high-flow nasal cannula, 30 L, FiO2 80%. CBC with a hemoglobin 16.9, hemoglobin 14 0, hematocrit 39.8, platelet count 347. Chest x-ray shows persistent left lung infiltrate. 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 HIV preliminary positive, HIV P 24 nonreactive, HIV-one RNA by PCR [id number]. Serology test for toxoplasma currently pending. Patient on IV antibiotics as well as high-dose steroids. Continue to follow infectious Disease and Pulmonary input and recommendations. 06/03 patient seen at bedside, no acute events overnight. She continues with respiratory distress, with increasing oxygen requirements. Critical Care has discussed a possible need for intubation if she does not improve. She has been started on steroids due to underlying PCP pneumonia. WBC improved from 16.9 down to 13.5, sodium stable at 132, same as yesterday, lactic acid downtrending from 4.1 down to 3.2, remainder of her labs are relatively unremarkable. 06/04 patient seen at bedside, no acute events overnight. She remains on high- flow nasal cannula, mildly tachycardic. WBC elevated at 13.3, sodium decreased from 132 down to 129, remainder of her labs are relatively unremarkable. Continue to wean supplemental oxygen. Further care per critical Care 06/05 patient seen at bedside, no acute events overnight. She remains on high- flow nasal cannula with BiPAP overnight and is still tachycardic. Heart rate ranging from 104 up to 113, WBC improved from 13.3 down to 11.1, sodium decreased from 120 down to 126, remainder of her labs are relatively unremarkable. We will continue to wean oxygen as able. 06/06 Patient seen at bedside, no acute events overnight. She remains on high- flow nasal cannula with BiPAP overnight and is still tachycardic. Heart rate ranging from 104 up to 122, WBC improved from 11.1 down to 10.6, sodium improved from 126 up to 129, remainder of her labs are relatively unremarkable. We will continue to wean oxygen as able. 06/07 patient seen at bedside, no acute events overnight. She is still on high- flow nasal cannula, RT advised to wean oxygen, currently saturating 100% on 30L. She is tachycardic, sodium decreased from 129 down to 123, likely secondary to Bactrim. Patient is asymptomatic, will continue with bactrim, if sodium continues to decrease consider a holiday from bactrim. 06/08 patient seen at bedside, no acute events overnight. She is still on high- flow nasal cannula, RT advised to wean oxygen, currently saturating 100% on 30L. She is tachycardic, sodium stable at 123, same as yesterday. Pending improvement in respiratory status 06/09 patient seen at bedside, he remains on high-flow nasal cannula, we will continue to wean as able, appreciate pulmonology assistance, tachycardic with heart rate ranging from 123 up to 130. She is still having low-grade fevers at 100.8. Sodium increased from 123 up to 130, remainder of her labs are relatively unremarkable. 06/10 patient is seen and examined at bedside, remains on high-flow oxygen, she feels mildly anxious, no chest pain. Still with a cough productive of white phlegm. Still tachycardic, heart rate 117-122. Patient is still spiking low- grade fever. Hemoglobin 10.9, hematocrit 30.5. Sodium remained low at 128, BUN and creatinine of 16 and 0.4. 06/11 patient is seen and examined at bedside, patient now on AVAPS, FiO2 100%, patient became restless last night, she had to be started on Precedex. During my visit she remains alert oriented x3, no chest pain. BP 120/48, she is saturating 100%. Hemoglobin 10 point, hematocrit 31.3. ABG shows persistent hypoxemia, with a PO2 of 69.4. Chest x-ray shows extensive infiltrates on the left which is stable to somewhat increased, there has been interval development of perihilar infiltrate on the right. Normal bilateral lower extremity venous Doppler ultrasound. Continue the patient on prednisone 20 mg p.o. daily, continue Bactrim two tablets p.o. t.i.d. as well as fluconazole 100 mg p.o. daily. 06/12 patient is seen and examined at bedside, intubated, on mechanical ventilation, per discussion with the RN, patient was in respiratory distress yesterday, decision made to intubate the patient. During my visit the patient is midazolam, fentanyl, patient paralyzed, also on Nimbex. She is in a prone position. On pressor support with phenylephrine. Also on Precedex. She is also on hydrocortisone 100 mg IV q.8 hours. Son at bedside, updated. ABG shows pH 7.38, pCO2 47, PO2 122, bicarb of 27.7. 06/13 patient is seen and examined at bedside, remains intubated, on mechanical ventilation, remains on midazolam, fentanyl, patient paralyzed, also on Nimbex. She is in a prone position. On BP pressor support with phenylephrine. Patient is peep of seven. ABG pH 7.34, PO2 72.3. Chest x-ray reviewed, increasing bilateral infiltrates, increasing pneumomediastinum. 06/14 patient is seen and examined at bedside, remains intubated, on mechanical ventilation, prone position, remains on midazolam, fentanyl, patient paralyzed, also on Nimbex. She is in a prone position. Off pressors. Patient is peep of seven. ABG pH 7.34, PO2 72.3. Chest x-ray shows extensive bilateral infiltrates unchanged, no pneumothorax. 06/15 patient is seen and examined at bedside, remains intubated, on mechanical ventilation, prone position, remains paralyzed, on Nimbex. Off pressors. Patient is peep of 10. ABG pH 7.34, PO2 72.3. Chest x-ray shows extensive bilateral infiltrates unchanged, no pneumothorax. Overall condition remains unchanged. No family at bedside. 06/16 patient is seen and examined at bedside, remains intubated, on mechanical ventilation, discussed with the RN, the patient has been placed on supine position. Patient remains on pressor support. Remains on sedation with midazolam and fentanyl BP 114/60, afebrile saturating 96% FiO2 100%, peep of 8. ABG today with pCO2 63, PO2 91.5. Chest x-ray with severe consultation both lungs, unchanged, interval development of pneumomediastinum, moderate to severe. Continue Solu-Medrol 80 mg IV q.8 hours, continue broad-spectrum antibiotics with meropenem 1 g IV q.8 hours, the patient remains on Bactrim. Continue g anciclovir. 06/17 patient seen at bedside, no acute events overnight. She remains intubated, paralyzed on FiO2 of 100% and PEEP of eight. Continue to try to wean towards extubation. Chest x-ray appears mildly improved from yesterday. She remains supine. Hemoglobin improved from 8.4 up to 8.6, platelets decreased from 121 down to 112, CO2 elevated at 41, same as yesterday, remainder of her labs are relatively unremarkable. Patient is still critical with poor prognosis continue further care per critical care team. REVIEW OF SYSTEMS 12 point review of systems negative unless noted in HPI PHYSICAL EXAM GENERAL APPEARANCE: Patient intubated, on mechanical ventilation. NEUROLOGICAL: Cranial nerves II-XII grossly intact. Motor is 5/5 in bilateral upper and lower extremities proximal to distal. No sensory deficits. HEENT: Face is symmetric. Pupils are equal and reactive. Extraocular movements are intact. NECK: Supple. No JVD. No thyromegaly. No submental, submandibular, pre- /postauricular, occipital or supraclavicular lymphadenopathy. CHEST: Normal chest expansion. No Telemetry. LUNGS: Bilateral rhonchi, no expiratory wheezing CARDIOVASCULAR: Regular. S1 and S2 normal. No appreciable rubs, murmurs or gallops. ABDOMEN: Soft, nontender, and nondistended. There is no rebound, voluntary guarding, or rigidity. : Deferred. No Souza. EXTREMITIES: Non-edematous and not cyanotic. No clubbing. Good capillary refill. SKIN: No skin breakdown. Vital Signs (last 8hr) Date Time Temp Pulse Resp B/P (MAP) Pulse Ox O2 Delivery O2 Flow Rate FiO2 06/17/24 14:14 96 31 06/17/24 14:13 94 100 06/17/24 13:22 100 06/17/24 12:12 96 100 06/17/24 12:00 97.5 06/17/24 11:52 95 Ventilator+ 100 06/17/24 11:30 97 32 130/67 (88) 94 127/75 (92) 06/17/24 11:00 98 33 121/62 (81) 91 124/75 (91) 06/17/24 10:30 94 28 123/63 (83) 91 123/74 (90) 06/17/24 10:00 87 28 127/66 (86) 93 100 125/81 (96) 06/17/24 09:59 87 28 06/17/24 09:30 91 28 109/52 (71) 92 112/61 (78) 06/17/24 09:06 86 100 06/17/24 09:06 100 06/17/24 09:00 86 28 115/60 (78) 95 100 121/75 (90) 06/17/24 08:30 88 28 114/60 (78) 96 118/73 (88) 06/17/24 08:00 97.5 91 28 119/62 (81) 96 100 122/74 (90) 06/17/24 08:00 97.5 06/17/24 08:00 96 Ventilator+ 100 06/17/24 07:30 93 28 122/62 (82) 95 126/74 (91) 06/17/24 07:00 95 28 123/61 (81) 95 100 130/80 (97) 06/17/24 06:24 101 33 LABS: Laboratory: Test 06/17/24 07:29 06/17/24 05:26 Range/Units Blood Gas Specimen Type Arterial Arterial Blood pH 7.372 7.350-7.450 Arterial Blood Partial Pressure CO2 70 *H 32-45 mmHg Arterial Blood Partial Pressure O2 80.5 L 83.0-108.0 mmHg Arterial Blood HCO3 39.7 H 21.0-28.0 mmol/L Arterial Blood Oxygen Saturation 95.2 94.0-98.0 % Arterial Blood Base Excess 11.2 H -2.0-3.0 mmol/L Blood Gas Temperature 37.0 35.5-37.0 CELSIUS Blood Gas Respiration Rate 28.0 min. Blood Gas Vent Mode AC ROOM AIR FiO2 100.0 % Blood Gas Tidal Volume 425 ml Blood Gas PEEP 8 cm H2O Blood Gas Specimen Comment AIDEN NGUYEN White Blood Count 2.8 L 4.8-10.8 K/uL Red Blood Count 2.69 L 4.00-5.50 MIL/uL Hemoglobin 8.6 L 12.0-16.0 g/dL Hematocrit 25.9 L 36-48 % Mean Corpuscular Volume 96.3 79-99 fL Mean Corpuscular Hemoglobin 32.0 27.0-33.0 pg Mean Corpuscular Hemoglobin Concent 33.2 32.0-36.0 g/dL Red Cell Distribution Width 11.5 11.0-15.5 % Platelet Count 112 L 130-400 K/uL Mean Platelet Volume 9.8 7.5-10.5 fL Immature Granulocyte % (Auto) 2.9 H 0-1 % Neutrophils (%) (Auto) 91.4 H 40.0-77.0 % Lymphocytes (%) (Auto) 4.3 L 21.0-51.0 % Monocytes (%) (Auto) 1.4 L 3.0-13.0 % Eosinophils (%) (Auto) 0.0 0.0-8.0 % Basophils (%) (Auto) 0.0 0.0-5.0 % Neutrophils # (Auto) 2.5 1.8-7.7 K/uL Lymphocytes # (Auto) 0.1 L 1.0-4.8 K/uL Monocytes # (Auto) 0.0 L 0.1-1.0 K/uL Eosinophils # (Auto) 0.00 0.00-0.70 K/uL Basophils # (Auto) 0.00 0.00-0.20 K/uL Absolute Immature Granulocyte (auto 0.08 0-1 K/uL Segmented Neutrophils % 89 H 40-70 % Band Neutrophils % 6 H 0-2 % Lymphocytes % (Manual) 3 L 22-44 % Monocytes % (Manual) 2 2-9 % Nucleated Red Blood Cells 0.0 0.0-0.19 % Differential Comment MANUAL DIFFERENTIAL White Cell Morphology Comment CONSISTENT W/DIFF Platelet Morphology Comment See comments Red Blood Cell Morphology HYPOCHROM CELLS 1+ Sodium Level 134 L 136-145 mmol/L Potassium Level 5.1 3.5-5.1 mmol/L Chloride Level 97 L 101-111 mmol/L Carbon Dioxide Level 41 *H 21-32 mmol/L Blood Urea Nitrogen 20 H 7-18 mg/dL Creatinine 0.3 L 0.5-1.0 mg/dL Glomerular Filtration Rate Calc 129 >90 mL/min Random Glucose 222 H 70-105 mg/dL Total Calcium 7.7 L 8.5-10.1 mg/dL Total Bilirubin 0.1 L 0.2-1.0 mg/dL Aspartate Amino Transf (AST/SGOT) 48 H 10-37 U/L Alanine Aminotransferase (ALT/SGPT) 59 12-78 U/L Alkaline Phosphatase 103 50-136 U/L Total Protein 4.5 L 6.0-8.3 g/dL Albumin 1.4 L 3.5-5.0 g/dL Current Medications Medications (Trade) Dose Ordered Sig/Julita Route PRN Reason Start Time Stop Time Status Last Admin Dose Admin Acetaminophen (TYLenol 650MG ELIXIR) 650 mg Q6H PRN PO MILD PAIN (1-3) 06/04/24 08:30 07/04/24 08:29 06/10/24 20:07 650 MG Acetaminophen (TYLenol 650MG SUPPOSITORY) 650 mg Q6H PRN RC MILD PAIN (1-3) 05/23/24 20:30 06/22/24 20:29 Acetylcysteine (MUComyst 20% 4ML) 400mg = 2ml [id number] IH 06/02/24 00:00 06/05/24 15:52 DC 06/05/24 11:35 200 MG Albuterol (DUOneb) 1 udvial [id number] IH 05/24/24 00:00 06/10/24 10:28 DC 06/10/24 06:45 1 UDVIAL Alprazolam (XANax 0.5MG) 0.5 mg Q8H PRN PO ANXIETY 06/10/24 13:30 07/10/24 13:29 06/11/24 05:22 0.5 MG Artificial Tears (Artificial Tears) 1 DROP OR AD Q8H OU 06/11/24 14:30 07/11/24 14:29 06/17/24 14:07 1 DROP Azithromycin 250 ml @ 250 mls/hr Q24H IVPB 05/24/24 17:00 05/24/24 14:41 DC Azithromycin 250 ml @ 250 mls/hr Q24H STAT IVPB 05/23/24 17:17 05/24/24 14:41 DC 05/23/24 17:45 250 MLS/HR Benzocaine (Cepacol Sore Throat Lozenge) 1 each Q4H PRN MM SORE THROAT 06/08/24 10:00 07/08/24 09:59 06/09/24 07:44 1 EACH Bisacodyl (DulcoLAX) 10 mg DAILY PRN RC CONSTIPATION 06/08/24 14:00 07/08/24 13:59 06/17/24 05:38 10 MG Cefepime HCl (MAXipime 2 gm vial) 2 gm Q12H IVPB 05/24/24 15:00 06/03/24 14:59 DC 06/03/24 03:18 2 GM Ceftriaxone Sodium (ROCEphine 1G INJ) 1 gm Q24H IVPB 05/24/24 17:30 05/24/24 14:41 DC Chlorhexidine Gluconate (Peridex) 15 ml Q6H MM 06/07/24 17:00 06/11/24 14:27 DC 06/10/24 12:22 15 ML Chlorhexidine Gluconate (Peridex) 15 ml Q8H MM 06/11/24 14:30 06/25/24 14:29 06/17/24 14:07 15 ML Cisatracurium Besylate (Nimbex) ONCE IVP 06/11/24 14:30 06/11/24 15:57 DC Cisatracurium Besylate 100 mg/ Sodium Chloride 100 ml @ 0 mls/hr PROTOCOL IV 06/11/24 23:30 07/11/24 23:29 06/17/24 09:27 14.94 MLS/HR Clotrimazole (Mycelex) 10 mg TID MM 06/04/24 21:00 06/14/24 08:39 DC 06/13/24 20:28 10 MG Dexmedetomidine/ Sodium Chloride (PRECEdex 400MCG/ 100ML-NS) 400 mcg PROTOCOL IV 06/10/24 19:30 07/10/24 19:29 06/12/24 06:32 400 MCG Dobutamine HCl/ Dextrose 250 ml @ 0 mls/hr PROTOCOL IV 06/12/24 16:30 06/12/24 16:53 DC Doxycycline Hyclate 250 ml @ 125 mls/hr Q12H IV 05/24/24 16:30 06/03/24 16:29 DC 06/03/24 04:23 125 MLS/HR Enoxaparin Sodium (Lovenox 80mg) 40 mg DAILY SQ 06/15/24 09:00 06/15/24 09:30 DC Enoxaparin Sodium (Lovenox 80mg) 80 mg BID SQ 06/11/24 09:00 06/14/24 23:28 DC 06/14/24 20:33 80 MG Enoxaparin Sodium (Lovenox) 40 mg DAILY SQ 06/15/24 09:30 07/15/24 09:29 06/17/24 08:49 40 MG Enoxaparin Sodium (Lovenox) 40 mg Q24H SQ 05/23/24 21:00 06/11/24 04:36 DC 06/10/24 20:07 40 MG Famotidine (Pepcid 20mg Vial) 20 mg DAILY IV 05/24/24 09:00 06/14/24 08:39 DC 06/13/24 08:15 20 MG Fentanyl Citrate 2500 mcg/Sodium Chloride 250 ml @ 0 mls/hr AD PRN IV TITRATE 06/17/24 05:30 06/17/24 05:18 DC Fentanyl/Sodium Chloride 250 ml @ 0.1 mls/hr PROTOCOL IV 06/12/24 00:00 06/17/24 00:00 DC 06/16/24 17:36 0.1 MLS/HR Fentanyl/Sodium Chloride 250 ml @ 0 mls/hr AD PRN IV ICU SEDATION 06/17/24 05:30 06/22/24 05:29 Fluconazole (DiFLUCan 100 mg TAB) 200 mg DAILY PO 06/05/24 09:00 07/05/24 08:59 06/17/24 08:50 200 MG Fluconazole/ Sodium Chloride 100 ml @ 100 mls/hr DAILY IV 05/26/24 09:00 05/27/24 15:57 DC 05/27/24 09:07 100 MLS/HR Furosemide (LASix 20MG VIAL) 20 mg DAILY IV 05/31/24 09:00 06/07/24 13:18 DC 06/03/24 08:38 20 MG Furosemide (LASix 20MG VIAL) 20 mg DAILY IV 06/17/24 10:00 06/17/24 12:13 DC 06/17/24 09:46 20 MG Furosemide (LASix 20MG VIAL) 20 mg Q12H IV 06/11/24 11:00 06/13/24 09:31 DC 06/12/24 21:54 20 MG Furosemide (LASix 20MG VIAL) 20 mg Q12H IV 06/17/24 22:00 07/17/24 09:59 Furosemide (LASix 20MG VIAL) 20 mg Q8H IV 06/13/24 09:30 06/16/24 11:00 DC 06/16/24 08:44 20 MG Ganciclovir Sodium 430 mg/ Sodium Chloride 100 ml @ 100 mls/hr Q12H IV 06/13/24 09:00 07/13/24 08:59 06/17/24 09:30 100 MLS/HR Ganciclovir Sodium 500 mg/ Sodium Chloride 100 ml @ 100 mls/hr Q12H IV 06/11/24 18:00 06/11/24 15:48 DC Ganciclovir Sodium (Ganciclovir Sodium) 500 mg Q12H IV 06/12/24 17:00 06/13/24 08:35 DC Guaifenesin/ Dextromethorphan (RobiTUSSin DM 200/20MG 10ML) 10 ml Q4H PRN PO COUGH 05/23/24 20:30 06/22/24 20:29 06/10/24 20:07 10 ML Hydrocortisone Sodium Succinate (Solu-corTEF 100MG) 100 mg Q8H IV 06/11/24 05:00 06/14/24 08:39 DC 06/14/24 06:13 100 MG Hydroxyzine HCl (ATArax 25MG TAB) 25 mg TID PRN PO ITCHING 06/10/24 14:00 07/10/24 13:59 06/11/24 05:22 25 MG Ipratropium [place] (AtrovENT UD) 0.5 MG [id number] IH 06/10/24 14:00 07/10/24 13:59 06/17/24 14:13 0.5 MG Lactated Ringer's (Lactated Ringers 1000ml) 500 ml ONCE IV 06/02/24 20:00 06/02/24 19:54 DC Levofloxacin/ Dextrose 100 ml @ 100 mls/hr Q24H IV 05/24/24 15:00 05/24/24 16:16 DC Magnesium Sulfate 50 ml @ 0 mls/hr PROTOCOL PRN IV hypomagnesemia 05/28/24 08:00 06/27/24 07:59 06/11/24 05:26 50 MLS/HR Meropenem (Merrem) 1 gm Q8H IVPB 06/11/24 15:00 06/13/24 11:52 DC 06/13/24 08:14 1 GM Meropenem (Merrem) 1 gm Q8H IVPB 06/13/24 15:00 06/21/24 14:59 06/17/24 06:10 1 GM Meropenem 1 gm/ Sodium Chloride 100 ml @ 33.333 mls/ hr Q8H IV 06/11/24 14:30 06/11/24 14:28 DC Methylprednisolone Sodium Succinate (Solu-medROL 40MG) 20 mg Q12H IVP 06/05/24 07:00 06/09/24 09:13 DC 06/09/24 07:25 20 MG Methylprednisolone Sodium Succinate (Solu-medROL 40MG) 40 mg Q12H IVP 05/28/24 18:00 05/29/24 16:45 DC 05/29/24 05:32 40 MG Methylprednisolone Sodium Succinate (Solu-medROL 40MG) 40 mg Q6H IVP 05/29/24 16:30 06/04/24 16:44 DC 06/04/24 11:13 40 MG Methylprednisolone Sodium Succinate (Solu-medROL 40MG) 40 mg Q6H IVP 06/04/24 18:00 06/05/24 00:24 DC 06/04/24 23:48 40 MG Methylprednisolone Sodium Succinate (Solu-medROL 40MG) 40 mg Q8H IVP 05/24/24 01:00 05/25/24 21:51 DC 05/25/24 17:28 40 MG Methylprednisolone Sodium Succinate (Solu-medROL 40MG) 60 mg Q6H IVP 05/25/24 22:00 05/28/24 02:25 DC 05/27/24 23:55 60 MG Methylprednisolone Sodium Succinate (Solu-medROL 40MG) 60 mg Q6H IVP 05/28/24 06:00 05/28/24 08:27 DC 05/28/24 06:47 60 MG Methylprednisolone Sodium Succinate (Solu-medROL 40MG) 60 mg Q6H IVP 06/11/24 02:30 06/11/24 04:23 DC 06/11/24 02:46 60 MG Methylprednisolone Sodium Succinate (Solu-medROL 40MG) 80 mg Q8H IVP 06/14/24 17:00 07/14/24 08:59 06/17/24 08:50 80 MG Methylprednisolone Sodium Succinate (Solu-medROL 125MG) 80 mg Q8H IVP 06/14/24 09:00 06/14/24 14:53 DC 06/14/24 08:48 80 MG Metronidazole/ Sodium Chloride (flaGYL) 500 mg Q8H IV 05/25/24 22:00 05/25/24 21:56 DC Midazolam HCl 50 ml @ 0 mls/hr AD PRN IV TITRATE 06/12/24 01:30 06/12/24 08:30 DC 06/12/24 02:30 10 MLS/HR Midazolam HCl 100 ml @ 0 mls/hr AD PRN IV TITRATE 06/12/24 09:00 07/12/24 01:29 06/17/24 09:34 10 MLS/HR Morphine Sulfate (morPHINE 4MG SYG) 4 mg Q4H PRN IM RESPIRATORY SYMPTOMS 06/11/24 03:30 06/14/24 23:33 DC 06/11/24 03:27 4 MG Ondansetron HCl (zoFRAN 4MG INJ) 4 mg Q6H PRN IV NAUSEA/VOMITING 05/23/24 20:30 06/22/24 20:29 Pantoprazole Sodium (PROTonix 40MG INJ) 40 mg BID IVP 06/12/24 21:00 07/12/24 20:59 06/17/24 08:50 40 MG Pharmacy Profile Note (Pharmacy Communication) 1 each ONCE MISC 06/11/24 14:30 06/11/24 15:53 DC Pharmacy Profile Note (Pharmacy Communication) 1 each ONCE MISC 06/11/24 20:30 06/11/24 20:14 DC Pharmacy Profile Note (Pharmacy Communication) 1 each ONCE MISC 06/12/24 17:00 06/12/24 17:07 DC Phenylephrine HCl 10 mg/Sodium Chloride 251 ml @ 0 mls/hr AD PRN IV DIRECTED 06/11/24 03:00 06/12/24 18:12 DC 06/12/24 14:10 47 MLS/HR Phenylephrine HCl 50 mg/Sodium Chloride 250 ml @ 0 mls/hr PROTOCOL PRN IV PROTOCOL 06/12/24 18:00 07/12/24 17:59 06/13/24 08:57 12.45 MLS/HR Potassium Chloride 100 ml @ 100 mls/hr AD PRN IV POTASSIUM PROTOCOL 05/28/24 08:00 06/27/24 07:59 Potassium Chloride (K-Dur/Klor-Con 20meq) 20 meq AD PRN PO POTASSIUM PROTOCOL 05/28/24 08:00 06/27/24 07:59 Potassium Chloride (KCl 10% Elixir 20meq/15ml) 20 meq AD PRN PO POTASSIUM PROTOCOL 05/28/24 08:00 06/27/24 07:59 Prednisone (deltaSONE/ oraSONE 20MG TAB) 20 mg DAILY PO 06/10/24 09:00 06/14/24 08:39 DC 06/13/24 08:15 20 MG Rocuronium [place] (ZemuRON) 10 mg Q1H PRN IV RESP DISTRESS/VENT DISYNCHRONY 06/11/24 20:30 06/11/24 23:29 DC 06/11/24 20:33 10 MG Sodium Chloride 500 ml @ 500 mls/hr Q1H IV 06/02/24 20:00 06/02/24 20:59 DC 06/02/24 21:34 500 MLS/HR Sodium Chloride 1,000 ml @ 75 mls/hr [id number] IV 06/07/24 13:30 06/10/24 17:02 DC 06/10/24 09:05 75 MLS/HR Sodium Chloride (Sodium Chloride) 1,000 mg BIDAC PO 06/07/24 16:30 06/09/24 07:28 DC 06/08/24 16:58 1,000 MG Sodium Chloride (Sodium Chloride) 1,000 mg BIDAC PO 06/09/24 07:30 06/12/24 16:35 DC 06/12/24 12:30 1,000 MG Sodium Chloride (Sodium Chloride) 1,000 mg Q12H PO 06/12/24 21:00 07/09/24 07:29 06/17/24 08:50 1,000 MG Sodium Zirconium Cyclosilicate (Lokelma) 5 gm DAILY10 PO 06/08/24 10:30 06/10/24 10:29 DC 06/08/24 10:50 5 GM Trimethoprim/ Sulfamethoxazole (BactRIM DS) 1 tab BID PO 05/26/24 21:00 05/29/24 16:18 DC 05/29/24 08:07 1 TAB Trimethoprim/ Sulfamethoxazole (BactRIM DS) 2 tab TID PO 05/29/24 16:30 06/05/24 20:59 DC 06/05/24 14:55 2 TAB Trimethoprim/ Sulfamethoxazole (BactRIM DS) 2 tab TID PO 06/06/24 09:30 06/11/24 21:54 DC 06/10/24 13:58 2 TAB Trimethoprim/ Sulfamethoxazole 320 mg/Dextrose 500 ml @ 500 mls/hr Q8H IV 06/11/24 22:30 06/12/24 16:35 DC 06/12/24 06:39 500 MLS/HR Trimethoprim/ Sulfamethoxazole 320 mg/Dextrose 500 ml @ 500 mls/hr Q8H IV 06/12/24 18:00 06/13/24 11:13 DC 06/13/24 05:30 500 MLS/HR Trimethoprim/ Sulfamethoxazole 320 mg/Dextrose 500 ml @ 500 mls/hr Q8H IV 06/13/24 13:30 06/23/24 13:29 06/17/24 14:06 500 MLS/HR Valganciclovir (ValGANCIClovir HCL) 900 mg BID PO 06/11/24 21:00 06/13/24 08:37 DC Wound Care/ Dressing Products (Venelex Ointment) 1 VOLODYMYR AD TID TP 06/14/24 14:00 07/14/24 13:59 06/17/24 14:06 1 GM DIAGNOSTICS / RADIOLOGY: [ ] ASSESSMENT: Acute hypoxemic respiratory failure, POA Bilateral lower lobe bacterial pneumonia + MRSA POA, +Azra Suspected PCP PNA based on CT findings vs viral/Atypical PNA . POA HIV positive (preliminary report, confirmatory test nonreactive) POA HSV positive CMV positive Normocytic anemia, not POA Neutrophilia, POA Hyperglycemia, POA Obesity BMI of 32.3 Former smoker Acute cystitis, POA Fatty liver, POA Moderate hypoalbuminemia POA Previous COVID-19 infection Pneumomediastinum PLAN: Continue ICU Patient intubated, mechanical ventilation, wean as able Continue blood pressure support, wean as tolerated Continue fentanyl, continue Nimbex. Continue to follow critical care input recommendation Continue the patient on Bactrim, meropenem, fluconazole. Continue gancyclovir Start furosemide 20mg BID IV per critical care Continue methylprednisolone 80mg TID IV Continue to follow infectious disease input and recommendation Continue to follow chest x-ray Continue to follow ABG Continue bronchodilators per respiratory therapist Replace electrolytes IV per protocol A.m. labs GI and DVT prophylaxis. Further orders to follow based on the above results Disposition: Remains admitted to the ICU, pending improvement clinical condition. Prognosis is poor guarded. Total ICU time spent greater than 30 minutes. HEATHER RICE MD Jun 17, 2024 14:28
[2024-06-17] MEDS: FENTanyl 2500MCG+NS 250ML 250 ML IV PRN (14:45)
[2024-06-17] MEDS ORDERED: PHARMACY COMMUNICATION 1 EACH EACH MISC SCH (16:30)
--- NOTE | 2024-06-17 17:32 | NUR ---
Nutrition f/u Reviewed labs, notes, and medications. Pt intubated, paralyzed, poor prognosis, continues in prone position, hyponatremia 134, elevated bun 20, low Cr 0.3, hyperglycemia 222, elevated AST, vit. D 9, hypocalcemia 7.7, elevated CO2 70 per chart review. Pt on vital AF 1.2 @ 25 ml/hr, wt via bed scale, OGT in place, last BM 06/10/24, labia ulcer, mild pitting, 860 ml balance per nursing. consider b-complex via IV to aid in wound healing. Continue trickle feeds of Vital AF 1.2 if Pt on pressors and CO2 elevated. Provide goal rate of Vital AF 1.2 @ 50 ml/hr x 22 hrs once Pt off pressors, CO2 WNL, not on prone position goal rate to provide 77% of kcal needs, 100% of protein needs, Monitor extubation and position of patient. Recommendations: -CONTINUE TRICKLE FEEDS of Vital AF 1.2 @ 25 ml/hr x 22 hrs + 150Q4H Provides: 660kcals, 41 gm pro, 1346 ml per day -Provide goal rate Vital AF 1.2 @ 50 ml/hr x 22 hrs + 150 Q4H ONCE MEDICALLY FEASIBLE Provides: 1320 kcals, 82 gm pro, 1492 ml per day -Monitor BM -If no BM >3 days consider stool softener -Monitor electrolytes -Replenish electrolytes per protocol -Monitor wts -Reweigh as able -Provide vit. D supplement per vit. D 9.1 -Provide b-complex QD -Monitor TF tolerance + need for TF adjustment -Monitor goals of care RD to follow + available for consult per protocol Addendum: 06/17/24 at [address] Amended: Links added.
--- NOTE | 2024-06-17 17:47 | CONS ---
CONSULTATION NOTE Date of Service: Jun 17, 2024 Reason for Consultation: [ Pressure ulcer on the right side of her face, ] Requesting Physician: [ Dr. Johnson ] HISTORY OF PRESENT ILLNESS: [Ms. Abdullahi is a 49-year-old female that was seen and examined today on 05/23/2024. Patient is a good historian and personal health. Patient's son Dagoberto Salcido is at bedside. Patient states that she came to the emergency department with a chief complaint of shortness of breath. Onset was two weeks ago. Location is to lungs. Duration is on and off. Character is described as "easily running out of air." Initially shortness and breath was only aggravated with climbing one or two flights of stairs but symptoms have progressively worsened and patient becomes short of breath even standing or walking short distances. There was no alleviating factors however previously symptoms were being controlled with daily morning albuterol nebulizer treatments. Patient denies any associated chest pain or dizziness. Patient reports an episode of COVID in December 2023. Today in the emergency department CBC unremarkable, chemistry unremarkable, urinalysis unremarkable, influenza screen negative, COVID negative, blood gas shows PO2 less than 45. Chest x-ray shows left lower lung pneumonia and minimal right lung base atelectasis. Emergency room physician recommended that patient be admitted with a diagnosis of acute hypoxemic respiratory failure and pneumonia. Upon arrival to the emergency department patient was placed on a BiPAP due to respiratory distress. 06/17/2024. This is a 49-year-old female currently in ICU intubated, sedated on mechanical ventilation, no family at the bedside during my visitation with has been consulted for a pressure ulcer on the right side of her face after she has been prone for several days. Patient also having multiple ulceration on the perianal area. The ulcer on her melissa is fully necrotic , no foul odor no purulent drainage. ] REVIEW OF SYSTEMS Unable to obtain due to patient condition she is currently intubated on mechanical ventilation. Information gathered from nursing staff and medical record. PAST MEDICAL HISTORY: [ ] PAST SURGICAL HISTORY: [ ] PAST SOCIAL HISTORY: [ ] FAMILY HISTORY: [ ] Coded Allergies: No Known Drug Allergies (Verified Allergy, Unknown, 02/23/17) PHYSICAL EXAM EYES: Anicteric. Pupils equal and reactive. HENT: No oral thrush seen, moist Oral mucosa NECK: Supple, no JVD or thyromegaly. LUNGS: Good air entry. No rales, no rhonchi. CARDIOVASCULAR: S1, S2 regular. No murmur heard. ABDOMEN: Soft, non tender, bowel sounds present, no organomegaly CENTRAL NERVOUS SYSTEM: Awake, alert, oriented x 3. No focal deficits. SKIN: Unstageable pressure ulcer on the right side of the face with no purulent drainage, no foul odor. Multiple ulceration on the perianal area. LYMPHATICS: No peripheral lymphadenopathy MUSCULOSKELETAL: No joint swelling, erythema or tenderness. EXTREMITIES: No cyanosis or clubbing BACK: No deformity, no pressure ulcer. GENITOURINARY: No dysuria or hematuria Vital Sign (Last 24 Hours) 06/17/24 06/17/24 16:40 17:33 Pulse 88 FiO2 100 Intake & Output (last 24hrs) 06/16/24 06/16/24 06/17/24 15:00 23:00 07:00 Intake Total 786.8 ml 1579.2 ml 1499.2 ml Output Total 1100 ml Balance 786.8 ml 1579.2 ml 399.2 ml LABS: Laboratory: Test 06/17/24 07:29 06/17/24 05:26 Range/Units Blood Gas Specimen Type Arterial Arterial Blood pH 7.372 7.350-7.450 Arterial Blood Partial Pressure CO2 70 *H 32-45 mmHg Arterial Blood Partial Pressure O2 80.5 L 83.0-108.0 mmHg Arterial Blood HCO3 39.7 H 21.0-28.0 mmol/L Arterial Blood Oxygen Saturation 95.2 94.0-98.0 % Arterial Blood Base Excess 11.2 H -2.0-3.0 mmol/L Blood Gas Temperature 37.0 35.5-37.0 CELSIUS Blood Gas Respiration Rate 28.0 min. Blood Gas Vent Mode AC ROOM AIR FiO2 100.0 % Blood Gas Tidal Volume 425 ml Blood Gas PEEP 8 cm H2O Blood Gas Specimen Comment AIDEN NGUYEN White Blood Count 2.8 L 4.8-10.8 K/uL Red Blood Count 2.69 L 4.00-5.50 MIL/uL Hemoglobin 8.6 L 12.0-16.0 g/dL Hematocrit 25.9 L 36-48 % Mean Corpuscular Volume 96.3 79-99 fL Mean Corpuscular Hemoglobin 32.0 27.0-33.0 pg Mean Corpuscular Hemoglobin Concent 33.2 32.0-36.0 g/dL Red Cell Distribution Width 11.5 11.0-15.5 % Platelet Count 112 L 130-400 K/uL Mean Platelet Volume 9.8 7.5-10.5 fL Immature Granulocyte % (Auto) 2.9 H 0-1 % Neutrophils (%) (Auto) 91.4 H 40.0-77.0 % Lymphocytes (%) (Auto) 4.3 L 21.0-51.0 % Monocytes (%) (Auto) 1.4 L 3.0-13.0 % Eosinophils (%) (Auto) 0.0 0.0-8.0 % Basophils (%) (Auto) 0.0 0.0-5.0 % Neutrophils # (Auto) 2.5 1.8-7.7 K/uL Lymphocytes # (Auto) 0.1 L 1.0-4.8 K/uL Monocytes # (Auto) 0.0 L 0.1-1.0 K/uL Eosinophils # (Auto) 0.00 0.00-0.70 K/uL Basophils # (Auto) 0.00 0.00-0.20 K/uL Absolute Immature Granulocyte (auto 0.08 0-1 K/uL Segmented Neutrophils % 89 H 40-70 % Band Neutrophils % 6 H 0-2 % Lymphocytes % (Manual) 3 L 22-44 % Monocytes % (Manual) 2 2-9 % Nucleated Red Blood Cells 0.0 0.0-0.19 % Differential Comment MANUAL DIFFERENTIAL White Cell Morphology Comment CONSISTENT W/DIFF Platelet Morphology Comment See comments Red Blood Cell Morphology HYPOCHROM CELLS 1+ Sodium Level 134 L 136-145 mmol/L Potassium Level 5.1 3.5-5.1 mmol/L Chloride Level 97 L 101-111 mmol/L Carbon Dioxide Level 41 *H 21-32 mmol/L Blood Urea Nitrogen 20 H 7-18 mg/dL Creatinine 0.3 L 0.5-1.0 mg/dL Glomerular Filtration Rate Calc 129 >90 mL/min Random Glucose 222 H 70-105 mg/dL Total Calcium 7.7 L 8.5-10.1 mg/dL Total Bilirubin 0.1 L 0.2-1.0 mg/dL Aspartate Amino Transf (AST/SGOT) 48 H 10-37 U/L Alanine Aminotransferase (ALT/SGPT) 59 12-78 U/L Alkaline Phosphatase 103 50-136 U/L Total Protein 4.5 L 6.0-8.3 g/dL Albumin 1.4 L 3.5-5.0 g/dL DIAGNOSTICS / RADIOLOGY: [ ] Wound care assessment: Unstageable pressure ulcer on the right side of her face. Multiple ulceration on the perianal area. PROBLEM LIST : Medical Problems: (1) Pneumonia of both lungs ICD Codes: J18.9 - Pneumonia, unspecified organism (2) Respiratory distress ICD Codes: R06.03 - Acute respiratory distress PLAN: [ Continue critical care support. Comorbidities per primary team. Aggressive offloading repositioning the patient every 2 hours per protocol to prevent pressure ulcer. Full skin exam b.i.d.. Apply Iodosorb cream daily or as needed on the necrotic ulcer on her right face. Apply Venelex ointment on the sacral and perianal area. Further management per hospital course. Thank you for the consultation allowing me to participate in the care of your patient. Poor prognosis. ] WOLF CASIANO MD Jun 17, 2024 17:47
--- NOTE | 2024-06-17 19:10 | NUR ---
SPEECH TRIGGER COMPLETED (INTUBATION). Pt IS A 49 Y.O. FEMALE ADMITTED SECONDARY TO ACUTE HYPOXEMIC RESPIRATORY FAILURE. Pt CURRENTLY INTUBATED AND NPO. PLEASE REQUEST SPEECH THERAPY SERVICES FOR SKILLED BEDSIDE SWALLOW EVALUATION 24 HOURS POST EXTUBATION IF ANY S/S OF ASPIRATION ARISE WITH ORAL INTAKE. JOINTER OPERATOR COORDINATED WITH NURSE SILVA. ALL QUESTIONS ANSWERED AT THIS TIME. Addendum: 06/17/[address] CRUZ Amended: Links added.
--- NOTE | 2024-06-17 19:49 | PN ---
INFECTIOUS DISEASE PROGRESS NOTE Date of Service: Jun 17, 2024 SUBJECTIVE: This is a 49-year-old female patient who was admitted with chief complaint of shortness of breaths. A chest x-ray done on admission showed left lower lung pneumoniae. A CT chest showed bilateral pulmonary infiltrates but no evidence of PE. 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 Patient was seen and examined at bedside in the ICU room 208. Patient is intubated and sedated with FiO2 of 100%. CMV PCR blood results are positive. No fever, temperature 97.5. Continues on Ganciclovir, Bactrim, Meropenem and fluconazole. Currently on NG tube feedings with Vital HP at 25 mL/hour. We will continue to follow patient's care. PHYSICAL EXAM EYES: Anicteric. Pupils equal and reactive. HENT: No oral thrush seen, moist Oral mucosa. NG tube. Oropharyngeal lesions. NECK: Supple, no JVD or thyromegaly. RESPIRATORY: Mechanical ventilation.. CARDIOVASCULAR: S1, S2 regular. No murmur heard. ABDOMEN: Soft, non tender, bowel sounds present, no organomegaly. CENTRAL NERVOUS SYSTEM: Intubated. SKIN: No rashes, no swelling. LYMPHATICS: No peripheral lymphadenopathy. MUSCULOSKELETAL: No joint swelling, erythema or tenderness. EXTREMITIES: No cyanosis or clubbing. BACK: No deformity, no pressure ulcer. GENITOURINARY: No dysuria or hematuria. Souza catheter. Vital Sign (Last 12 Hours) 06/17/24 06/17/24 06/17/24 06/17/24 08:00 08:00 08:00 08:30 Temp 97.5 97.5 Pulse 91 88 Resp 28 B/P (MAP) 119/62 (81) 114/60 (78) 122/74 (90) 118/73 (88) Pulse Ox 96 96 96 O2 Delivery Ventilator+ FiO2 100 100 06/17/24 06/17/24 06/17/24 06/17/24 09:00 09:06 09:06 09:30 Pulse 86 86 91 Resp 28 28 B/P (MAP) 115/60 (78) 109/52 (71) 121/75 (90) 112/61 (78) Pulse Ox 95 92 FiO2 100 100 100 06/17/24 06/17/24 06/17/24 06/17/24 09:59 10:00 10:30 11:00 Pulse 87 87 94 98 Resp 33 B/P (MAP) 127/66 (86) 123/63 (83) 121/62 (81) 125/81 (96) 123/74 (90) 124/75 (91) Pulse Ox 93 91 91 FiO2 100 06/17/24 06/17/24 06/17/24 06/17/24 11:30 11:52 12:00 12:00 Temp 97.5 97.5 Pulse 97 96 B/P (MAP) 130/67 (88) 125/64 (84) 127/75 (92) 126/73 (90) Pulse Ox 94 95 95 O2 Delivery Ventilator+ FiO2 100 100 06/17/24 06/17/24 06/17/24 06/17/24 12:12 12:30 13:00 13:22 Pulse 96 97 97 B/P (MAP) 123/62 (82) 124/62 (82) 124/75 (91) 128/75 (92) Pulse Ox 95 96 FiO2 100 100 100 06/17/24 06/17/24 06/17/24 06/17/24 13:30 14:00 14:13 14:14 Pulse 95 96 94 96 B/P (MAP) 123/63 (83) 124/63 (83) 124/71 (88) 124/74 (91) Pulse Ox 95 95 FiO2 100 100 06/17/24 06/17/24 06/17/24 06/17/24 14:30 15:00 15:30 16:00 Temp 97.2 Pulse 89 87 83 Resp B/P (MAP) 117/60 (79) 118/60 (79) 117/60 (79) 116/70 (85) 121/71 (88) 117/69 (85) Pulse Ox 93 94 94 FiO2 100 06/17/24 06/17/24 06/17/24 06/17/24 16:00 16:00 16:30 16:40 Temp 97.2 Pulse 84 89 88 B/P (MAP) 114/59 (77) 119/62 (81) 112/66 (81) 107/65 (79) Pulse Ox 95 94 94 O2 Delivery Ventilator+ FiO2 100 100 100 06/17/24 06/17/24 06/17/24 06/17/24 17:00 17:30 17:33 18:00 Pulse 88 85 81 Resp 28 B/P (MAP) 121/63 (82) 120/62 (81) 118/62 (80) 111/64 (80) 119/70 (86) 115/67 (83) Pulse Ox 94 92 93 FiO2 100 100 100 06/17/24 06/17/24 06/17/24 18:30 19:09 19:12 Pulse 79 80 79 Resp 31 B/P (MAP) 113/60 (77) 114/66 (82) Pulse Ox 93 FiO2 100 Intake & Output (last 24hrs) 06/16/24 06/16/24 06/17/24 15:00 23:00 07:00 Intake Total 786.8 ml 1579.2 ml 1499.2 ml Output Total 1100 ml Balance 786.8 ml 1579.2 ml 399.2 ml LABS: Laboratory: Test 06/17/24 07:29 06/17/24 05:26 Range/Units Blood Gas Specimen Type Arterial Arterial Blood pH 7.372 7.350-7.450 Arterial Blood Partial Pressure CO2 70 *H 32-45 mmHg Arterial Blood Partial Pressure O2 80.5 L 83.0-108.0 mmHg Arterial Blood HCO3 39.7 H 21.0-28.0 mmol/L Arterial Blood Oxygen Saturation 95.2 94.0-98.0 % Arterial Blood Base Excess 11.2 H -2.0-3.0 mmol/L Blood Gas Temperature 37.0 35.5-37.0 CELSIUS Blood Gas Respiration Rate 28.0 min. Blood Gas Vent Mode AC ROOM AIR FiO2 100.0 % Blood Gas Tidal Volume 425 ml Blood Gas PEEP 8 cm H2O Blood Gas Specimen Comment AIDEN NGUYEN White Blood Count 2.8 L 4.8-10.8 K/uL Red Blood Count 2.69 L 4.00-5.50 MIL/uL Hemoglobin 8.6 L 12.0-16.0 g/dL Hematocrit 25.9 L 36-48 % Mean Corpuscular Volume 96.3 79-99 fL Mean Corpuscular Hemoglobin 32.0 27.0-33.0 pg Mean Corpuscular Hemoglobin Concent 33.2 32.0-36.0 g/dL Red Cell Distribution Width 11.5 11.0-15.5 % Platelet Count 112 L 130-400 K/uL Mean Platelet Volume 9.8 7.5-10.5 fL Immature Granulocyte % (Auto) 2.9 H 0-1 % Neutrophils (%) (Auto) 91.4 H 40.0-77.0 % Lymphocytes (%) (Auto) 4.3 L 21.0-51.0 % Monocytes (%) (Auto) 1.4 L 3.0-13.0 % Eosinophils (%) (Auto) 0.0 0.0-8.0 % Basophils (%) (Auto) 0.0 0.0-5.0 % Neutrophils # (Auto) 2.5 1.8-7.7 K/uL Lymphocytes # (Auto) 0.1 L 1.0-4.8 K/uL Monocytes # (Auto) 0.0 L 0.1-1.0 K/uL Eosinophils # (Auto) 0.00 0.00-0.70 K/uL Basophils # (Auto) 0.00 0.00-0.20 K/uL Absolute Immature Granulocyte (auto 0.08 0-1 K/uL Segmented Neutrophils % 89 H 40-70 % Band Neutrophils % 6 H 0-2 % Lymphocytes % (Manual) 3 L 22-44 % Monocytes % (Manual) 2 2-9 % Nucleated Red Blood Cells 0.0 0.0-0.19 % Differential Comment MANUAL DIFFERENTIAL White Cell Morphology Comment CONSISTENT W/DIFF Platelet Morphology Comment See comments Red Blood Cell Morphology HYPOCHROM CELLS 1+ Sodium Level 134 L 136-145 mmol/L Potassium Level 5.1 3.5-5.1 mmol/L Chloride Level 97 L 101-111 mmol/L Carbon Dioxide Level 41 *H 21-32 mmol/L Blood Urea Nitrogen 20 H 7-18 mg/dL Creatinine 0.3 L 0.5-1.0 mg/dL Glomerular Filtration Rate Calc 129 >90 mL/min Random Glucose 222 H 70-105 mg/dL Total Calcium 7.7 L 8.5-10.1 mg/dL Total Bilirubin 0.1 L 0.2-1.0 mg/dL Aspartate Amino Transf (AST/SGOT) 48 H 10-37 U/L Alanine Aminotransferase (ALT/SGPT) 59 12-78 U/L Alkaline Phosphatase 103 50-136 U/L Total Protein 4.5 L 6.0-8.3 g/dL Albumin 1.4 L 3.5-5.0 g/dL ASSESSMENT: Acute hypoxic respiratory failure, s/p intubated on 06/11/2024. Pneumocystis carinii pneumonia. Positive for Cytomegalovirus. Positive HIV test. Infection with methicillin-resistant Staphylococcus aureus. Leukocytosis, resolved. Obesity. Oral candidiasis. Anemia. PLAN: Continue Ganciclovir IV. Continue Bactrim. Continue Meropenem as currently ordered. Continue fluconazole p.o. Continue critical care support. Continue ventilatory support. Continue vasopressor support. Continue steroids. Continue GI prophylaxis. Continue bronchodilators. Continue DVT prophylaxis. This case was reviewed and discussed with my supervising physician and the above assessment and plan was formulated and agreed upon. ATTESTATION BY PHYSICIAN I have seen and examined the patient. I reviewed the documentation, medical decision making, and treatment plan as noted by the mid-level provider above. I agree with the findings and plan of care. [place] MD, MIRTA L FINANCIAL CONTROLLER Jun 17, 2024 19:49
[2024-06-17] MEDS: rocuRONium bROMide 10MG/1ML 5ML VL IV PRN (23:41)
[2024-06-18] VITALS (76 sets, daily range): BP systolic 102–148; BP diastolic 51–85; PULSE 69–103; RESP 28–35; TEMP 97–98.1; O2SAT 88–96
[2024-06-18 03:43] LABS: ABG BASE EXCESS 14.8 mmol/L (-2.0-3.0); ABG HCO3 42.5 mmol/L (21.0-28.0); ABG OXYGEN SATURATION 92.4 % (94.0-98.0); ABG PCO2 75 mmHg (32-45); ABG PH 7.371 (7.350-7.450); CARBON MONOXIDE 0.6 % (0.5-1.5); HHb 7.5; PO2, ARTERIAL BG 70.8 mmHg (83.0-108.0); VENT MODE, BG AC VC (ROOM AIR)
[2024-06-18 04:33] LABS: BASOPHILS # (AUTO) 0.01 K/uL (0.00-0.20); BASOPHILS % (AUTO) 0.3 % (0.0-5.0); HEMATOCRIT 26.9 % (36-48); IMMATURE GRANULOCYTE ABSOLUTE 0.06 K/uL (0-1); LYMPHOCYTES # (AUTO) 0.1 K/uL (1.0-4.8); MEAN CORPUSCULAR HEMOGLOBIN 32.5 pg (27.0-33.0); MEAN CORPUSCULAR HGB CONC 33.5 g/dL (32.0-36.0); MEAN CORPUSCULAR VOLUME 97.1 fL (79-99); MONOCYTES # (AUTO) 0.1 K/uL (0.1-1.0); MONOCYTES % (AUTO) 1.4 % (3.0-13.0); NEUTROPHILS # (AUTO) 3.2 K/uL (1.8-7.7); NEUTROPHILS % (AUTO) 92.6 % (40.0-77.0); PLATELET COUNT (AUTO) 127 K/uL (130-400); RED BLOOD CELL COUNT(AUTO) 2.77 MIL/uL (4.00-5.50); RED CELL DISTRIBUTION WIDTH 11.6 % (11.0-15.5); WHITE BLOOD COUNT (AUTO) 3.5 K/uL (4.8-10.8)
[2024-06-18 04:51] LABS: ALBUMIN 1.5 g/dL (3.5-5.0); BILIRUBIN,TOTAL 0.1 mg/dL (0.2-1.0); CREATININE 0.4 mg/dL (0.5-1.0); POTASSIUM 5.1 mmol/L (3.5-5.1); TOTAL PROTEIN, SERUM 4.7 g/dL (6.0-8.3)
[2024-06-18] MEDS: IODOSORB GEL 40GM TP SCH (08:26)
--- NOTE | 2024-06-18 09:49 | HMCIMG ---
Exam Type: CHEST 1VW Clinical Information: intubated Comparison: None Findings: Pulmonary pattern is as before. No worrisome interval changes have taken place. Impression: Stable exam.
--- NOTE | 2024-06-18 10:53 | NUR ---
REPORT REPORT GIVEN TO TENZIN CARBAJAL
--- NOTE | 2024-06-18 11:00 | PN ---
[facility] PROGRESS NOTE Date Patient Seen: Jun 18, 2024 Time of Visit: 11:00 Supervising Physician: Dr. Bacon Primary Care Physician: Stu Foss MD Outpatient Specialists: Inpatient Consults: Pulmonology PROBLEM LIST: Severe ARDS Acute hypoxemic respiratory failure s/p intubation 06/11/24 requiring proning Bilateral lower lobe bacterial pneumonia + MRSA POA, +Azra Confirmed PCP PNA per Ag (serology), POA Pneumomediastinum on x-ray 06/12/24 Disseminated herpes virus infection Elevated DDIMER r/o PE & DVT New HIV/AIDS positive POA Hyponatremia and hyperkalemia, suspected Bactrim induced Normocytic anemia, not POA Neutrophilia, POA Hyperglycemia, POA Obesity BMI of 32.3 Former smoker Fatty liver, POA Moderate hypoalbuminemia POA Previous COVID-19 infection INTERVAL HISTORY: Day # 6 post Intubation. Patient's condition is critical. Patient has a grim prognosis. This morning she was assessed in room 208 in the ICU. She tolerated being supine with O2 sats above 88% since turned yesterday. Continues on sedation and paralyzed with fentanyl at 200 mcg per hour, Versed 10 milligrams/hour, and Nimbex at 2 micrograms/kilogram per minute. Current vital signs blood pressure of 127/66 heart rate in the 80s respiratory rate of 28 on the vent saturating 93% with a FiO2 of 100% and afebrile. Latest ABGs show a pH of 7.37 pCO2 of 70 PO2 of 80 bicarb of 39.7 with vent settings of assist control volume control tidal volume of 425 respiratory rate of 28 FiO2 of 100% and PEEP of 8. PF ratio 80.5. Urine output 1.1 L with a balance of + 2.7 L. on chest x- ray findings consistent with severe persistent bilateral pulmonary opacification. ET tube in correct position. Resolution of the previously seen pneumomediastinum. No pneumothorax.Will continue to follow ABX per ID. There Is No Family At The Bedside At Time Of My Visit. 06/18/2024: At the time of my evaluation, the patient was lying in bed. There was no family members present at the bedside. She remains in the ICU. She is currently on sedation with fentanyl and Versed. RASS score of -5. The patient was taken off Nimbex and is currently on rocuronium IV pushes. She is intubated and mechanically vented, day #7, ACVC FiO2 100%. She also remains on Solu- Medrol 80 mg q.8 hours. Chest x-ray today showed stable examination without any acute intrapulmonary changes. On the monitor, the patient remains hemodynamically stable. Patient remains on feeding through a OGT. Staff nurse reports no residuals, no nausea, vomiting or diarrhea. I and O shows a net balance of 1273.9. The patient continues on antibiotic/antiviral/antifungal therapy with Merrem/Bactrim/ganciclovir and Diflucan. No other complaint. REVIEW OF SYSTEMS: Unable to obtain ROS from patient due to patient's medical condition. PHYSICAL EXAM: GENERAL: Sedated and intubated, currently SUPINE HEENT: Sclera non icteric, dry scabs and sores to mucosa, sore to rt cheek NECK: short neck no JVD, trachea midline LUNGS: diminished to bilateral breath sounds no wheezing. HEART: Regular rate and rhythm. Normal S1 and S2, without murmurs ABD: Abdomen soft, nontender. Bowel sounds present EXT: No clubbing cyanosis or edema, sore to sacral area, NEURO: Intubated sedated and paralyzed. Vital Signs (last 8hr) Date Time Temp Pulse Resp B/P (MAP) Pulse Ox O2 Delivery O2 Flow Rate FiO2 06/18/24 10:30 77 28 107/56 (73) 94 109/65 (80) 06/18/24 10:00 83 28 134/75 (94) 93 129/85 (100) 06/18/24 09:37 89 100 06/18/24 09:30 88 28 118/63 (81) 91 115/70 (85) 06/18/24 09:00 100 06/18/24 09:00 96 28 121/62 (81) 91 113/66 (82) 06/18/24 08:30 95 28 120/63 (82) 92 117/68 (84) 06/18/24 08:00 97.5 96 28 122/64 (83) 92 120/69 (86) 06/18/24 08:00 91 Ventilator+ 100 06/18/24 08:00 97.5 06/18/24 07:30 95 28 121/60 (80) 92 115/63 (80) 06/18/24 07:00 85 28 115/59 (77) 91 111/61 (78) 06/18/24 06:34 82 31 06/18/24 06:26 89 100 06/18/24 06:00 93 31 118/63 (81) 92 117/64 (81) 06/18/24 05:30 95 32 113/61 (78) 94 115/66 (82) 06/18/24 05:00 98 33 114/61 (78) 93 115/66 (82) 06/18/24 04:30 103 32 123/65 (84) 88 124/72 (89) 06/18/24 04:00 100 06/18/24 04:00 97 35 121/64 (83) 91 119/72 (88) 06/18/24 04:00 97.0 06/18/24 04:00 88 Ventilator+ 100 06/18/24 03:58 97 100 06/18/24 03:30 97 32 122/63 (82) 93 119/71 (87) LABS: Hematology Labs: Test 06/18/24 03:55 06/17/24 05:26 Range/Units White Blood Count 3.5 L 4.8-10.8 K/uL Red Blood Count 2.77 L 4.00-5.50 MIL/uL Hemoglobin 9.0 L 12.0-16.0 g/dL Hematocrit 26.9 L 36-48 % Mean Corpuscular Volume 97.1 79-99 fL Mean Corpuscular Hemoglobin 32.5 27.0-33.0 pg Mean Corpuscular Hemoglobin Concent 33.5 32.0-36.0 g/dL Red Cell Distribution Width 11.6 11.0-15.5 % Platelet Count 127 L 130-400 K/uL Mean Platelet Volume 10.5 7.5-10.5 fL Immature Granulocyte % (Auto) 1.7 H 0-1 % Neutrophils (%) (Auto) 92.6 H 40.0-77.0 % Lymphocytes (%) (Auto) 4.0 L 21.0-51.0 % Monocytes (%) (Auto) 1.4 L 3.0-13.0 % Eosinophils (%) (Auto) 0.0 0.0-8.0 % Basophils (%) (Auto) 0.3 0.0-5.0 % Neutrophils # (Auto) 3.2 1.8-7.7 K/uL Lymphocytes # (Auto) 0.1 L 1.0-4.8 K/uL Monocytes # (Auto) 0.1 0.1-1.0 K/uL Eosinophils # (Auto) 0.00 0.00-0.70 K/uL Basophils # (Auto) 0.01 0.00-0.20 K/uL Absolute Immature Granulocyte (auto 0.06 0-1 K/uL Nucleated Red Blood Cells 0.0 0.0-0.19 % Segmented Neutrophils % 89 H 40-70 % Band Neutrophils % 6 H 0-2 % Lymphocytes % (Manual) 3 L 22-44 % Monocytes % (Manual) 2 2-9 % Differential Comment MANUAL DIFFERENTIAL White Cell Morphology Comment CONSISTENT W/DIFF Platelet Morphology Comment See comments Red Blood Cell Morphology HYPOCHROM CELLS 1+ Chemistry Labs: Test 06/18/24 03:55 Range/Units Sodium Level 135 L 136-145 mmol/L Potassium Level 5.1 3.5-5.1 mmol/L Chloride Level 94 L 101-111 mmol/L Carbon Dioxide Level 45 *H 21-32 mmol/L Blood Urea Nitrogen 22 H 7-18 mg/dL Creatinine 0.4 L 0.5-1.0 mg/dL Glomerular Filtration Rate Calc 121 >90 mL/min Random Glucose 163 H 70-105 mg/dL Total Calcium 7.7 L 8.5-10.1 mg/dL Total Bilirubin 0.1 L 0.2-1.0 mg/dL Aspartate Amino Transf (AST/SGOT) 53 H 10-37 U/L Alanine Aminotransferase (ALT/SGPT) 76 # 12-78 U/L Alkaline Phosphatase 105 50-136 U/L Total Protein 4.7 L 6.0-8.3 g/dL Albumin 1.5 L 3.5-5.0 g/dL DIAGNOSTICS / RADIOLOGY RESULTS: [ ] PLAN Continue sedation with fentanyl, versed wean off Nimbex gtt rocuronium pushes as needed for vent dyssynchrony manage vent per abg maintain plateu pressure of < 30 Continue steroids Continue Atrovent q.4 hours. ABX per ID son is POA 06/18/2024: For now, we are going to continue current management for the patient. We are going to continue with the mechanical ventilator support and we will adjust to maintain optimal ventilation and oxygenation per ABGs. We will continue with rocuronium pushes as needed. We will continue with steroid dose as ordered and we will follow up with serial chest x-ray examination. She remains hemodynamically stable and is not requiring any pressor therapy. We will continue with nutritional support via the NGT and we will continue monitoring for any high residuals, nausea, vomiting or diarrhea events. We will continue monitoring the I's and O's. The patient will continue on antibiotic/antiviral/antifungal therapy as ordered and we will follow the guidance of the Infectious Disease team. We will monitor the patient's progress and response to management. Her condition remains critical and prognosis is poo r. We will continue to provide general supportive care, GI and DVT prophylaxis. Further orders per attending MD and hospital course. NEURO: Minimize central acting medications as possible. Fall Precautions. Well lighted room through the day and minimize interruptions through the night to prevent acute delirium. PULMONARY: Supplemental 02 as needed Titrate Fio2 to keep Spo2 > or = 90% DuoNebs and CPT as needed IS hourly while awake for pulmonary hygiene Out of bed to chair as tolerated CARDIOVASCULAR: Follow hemodynamics. Titrate vasopressor to keep MAP >65 or systolic blood pressure >95mmHg Telemetry LINES: CVC RT IJ Arterial line ET tube' FC OG tube GI & NUTRITION: Continue nutritional support Aspirations precautions Prokinetic agents and laxatives as needed KIDNEYS & ELECTROLYTES: Strict monitoring of intake and output Daily weights Avoid nephrotoxic agents Monitor electrolytes and replace as needed Goal urine output of 30mL/hr or 0.5mL/kg/hr ENDOCRINE: Maintain blood glucose between 100-180 at all times. Insulin sliding scale for blood glucose management INFECTIOUS DISEASE: Trend temperature. Clarke-culture if febrile. Sputum culture from 05/23/24 positive for MRSA, Betty albicans Pneumocystis carinii antigen positive Panculture: 06/02/24 Blood cultures Urine cultures Respiratory culture Antibiotics: Bactrim DS Fluconazole Valganciclovir Meropenem HEMATOLOGY & COAGULATION: Monitor H&H. Keep Hgb > 7 Transfuse 1 unit of PRBC for Hgb < 7 Transfuse 1 pack of platelets of platelets < 20, 000 Watch for any signs and symptoms of bleeding SKIN: Pressure ulcer prevention per facility protocol Rehab: PT/OT Prophylaxis: GI: Pepcid DVT: Lovenox Code Status: Full Resuscitation Disposition: ICU Other: Critical care time I personally spent 45 minutes of critical care time in treatment of this patient. This includes patient management, time at bedside, time reviewing tests, labs, appropriate images and studies, documentation, and patient care coordination. This time excludes separately billable procedures. DAYRON RUBIN NP Jun 18, 2024 11:00
[2024-06-18] MEDS: BACTRIM 800MG/160MG 10ML VIAL 320 MG in DEXTROSE 5%-WATER 500 ML IV SCH (11:59)
--- NOTE | 2024-06-18 13:01 | PN ---
[facility] PROGRESS NOTE Date of Service: Jun 18, 2024 Time of Service: 12:53 SUBJECTIVE: [ ] Ms. Abdullahi is a 49-year-old female that was seen and examined today on 05/23/2024. Patient is a good historian and personal health. Patient's son Dagoberto Salcido is at bedside. Patient states that she came to the emergency department with a chief complaint of shortness of breath. Onset was two weeks ago. Location is to lungs. Duration is on and off. Character is described as "easily running out of air." Initially shortness and breath was only aggravated with climbing one or two flights of stairs but symptoms have progressively worsened and patient becomes short of breath even standing or walking short distances. There was no alleviating factors however previously symptoms were being controlled with daily morning albuterol nebulizer treatments. Patient denies any associated chest pain or dizziness. Patient reports an episode of COVID in December 2023. emergency department CBC unremarkable, chemistry unremarkable, urinalysis unremarkable, influenza screen negative, COVID negative, blood gas shows PO2 less than 45. Chest x-ray shows left lower lung pneumonia and minimal right lung base atelectasis. Upon arrival to the emergency department patient was placed on a BiPAP due to respiratory distress. 05/24/2024-patient was seen and examined at the bedside, still on BiPAP. Patient is able to speak, and says she feels much better than before. Patient says after COVID in December she developed severe bronchitis and she was on Solu-Medrol and albuterol, which did not help her much and later she had high fevers and shortness of breath which is when she came to the ED.Vitals afebrile pulse 76, RR 38 tachypneic , blood pressure 115/68, pulse oxygen 99 on BiPAP flow of 60. On ABG pH 7.47, pCO2 29, PO2 109.4, oxygen saturation 98.3. [id number] potassium 4.1 BUN15 creatinine 0.5 GFR 114. We will closely monitor the patient. [employer] Techn[employer] consult noted waiting on the recommendation 05/25/24 patient was seen and examined and case discussed with RN and family by the bedside. She was breathing better today. She has been on BiPAP all night but now he was on 100% non-rebreather with further efforts to continue to wean the oxygen requirements down. 05/27/24 patient is seen and examined at bedside, acute events overnight, case discussed with the RN, BP 131/64, afebrile, saturating 96-97% via Ventimask, FiO2 40%. The patient admits cough productive of clear phlegm. Serology tests reviewed, HIV preliminary positive, discussed with the patient. 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 We will continue the patient on IV antibiotics, continue fluconazole, continue to follow Pulmonary and ID input and recommendations. After provided in the preliminary results of HIV test, she denies any suicidal or homicidal ideations. 05/28 patient has been seen and examined, no acute events overnight, case discussed with the RN, during my visit patient is sitting comfortably in the chair, hemodynamically stable, off Ventimask, currently on 10 L via nasal cannula, saturating 98%, tolerated BiPAP overnight. she feels better, less shortness a breath, still admits cough productive of yellow phlegm. No chest pain. Getting IV antibiotics during my visit. HIV P24 antigen, nonreactive. We will continue to follow Pulmonary and Infectious Disease input and recommendations. 05/29 patient has been seen and examined, no acute events overnight, case discussed with the RN, during my visit patient is sitting comfortably in the chair, hemodynamically stable, remains on 10 L via nasal cannula, saturating 98%, still admits cough productive of yellow phlegm. No chest pain. Getting IV antibiotics during my visit. HIV P24 antigen, nonreactive. Pending CD4 cell count. We will continue to follow Pulmonary and Infectious Disease input and recommendations. 05/30 the patient has been seen and examined, no acute events overnight, BP 114/66, during my visit she is on Ventimask, saturating 95%, FiO2 60%. Without the Ventimask the patient desaturates to the low 70s. Patient tolerating BiPAP during the night. Still admits cough productive of thick yellow phlegm, no chest pain. Results of CD4 cell count reviewed, discussed with the patient. We will continue broad-spectrum IV antibiotics. Continue to follow Pulmonary and Infectious Disease input and recommendations. 05/31 the patient has been seen and examined, upgraded to the ICU, during my visit she is sitting in the chair, BP 113/72, heart rate of 109, she is on Oxymizer, 30 L, FiO2 100%. She is alert oriented x3, still admits cough productive of thick yellow phlegm, no chest pain. Hemoglobin 12.9, hematocrit 36.6, WBC 14.6. ABG with pH 7.4, pCO2 40, PO2. Chest x-ray shows left lower lo be infiltrate consistent with pneumonia. She is getting IV antibiotics during my visit. Patient will remain in the ICU, continue to follow critical Care as well as infectious disease input and recommendations. 06/01 patient is seen and examined, sitting comfortable in chair, awake, following commands, remains on high-flow oxygen, FiO2 70%, 30 L, BP 117/67, heart rate of 78, respiratory rate of 30-36, saturating 100%, CBC with a hemoglobin 13.6, hematocrit 38.9, WBC 12.4. Platelet count of 341. Chest x-ray showing persistent left lung infiltrate, cardiac size and mediastinum unremarkable. The bony structures are within the normal limits. Patient getting IV antibiotics during my visit. Patient to continue with the high-dose steroids. Serology test positive for Pneumocystis sandra. Patient on Bactrim two tablets p.o. t.i.d.. Continue also doxycycline and cefepime IV. Continue to follow infectious disease input and recommendation. Continue to follow Pulmonary input and recommendations. 06/02 patient is seen and examined at bedside, currently in prone position, alert oriented x3. CPT started last night, she has started having more loose phlegm expectorated. BP 114/74, tachycardic 114, saturating 95%, high-flow nasal cannula, 30 L, FiO2 80%. CBC with a hemoglobin 16.9, hemoglobin 14 0, hematocrit 39.8, platelet count 347. Chest x-ray shows persistent left lung infiltrate. 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 HIV preliminary positive, HIV P 24 nonreactive, HIV-one RNA by PCR [id number]. Serology test for toxoplasma currently pending. Patient on IV antibiotics as well as high-dose steroids. Continue to follow infectious Disease and Pulmonary input and recommendations. 06/03 patient seen at bedside, no acute events overnight. She continues with respiratory distress, with increasing oxygen requirements. Critical Care has discussed a possible need for intubation if she does not improve. She has been started on steroids due to underlying PCP pneumonia. WBC improved from 16.9 down to 13.5, sodium stable at 132, same as yesterday, lactic acid downtrending from 4.1 down to 3.2, remainder of her labs are relatively unremarkable. 06/04 patient seen at bedside, no acute events overnight. She remains on high- flow nasal cannula, mildly tachycardic. WBC elevated at 13.3, sodium decreased from 132 down to 129, remainder of her labs are relatively unremarkable. Continue to wean supplemental oxygen. Further care per critical Care 06/05 patient seen at bedside, no acute events overnight. She remains on high- flow nasal cannula with BiPAP overnight and is still tachycardic. Heart rate ranging from 104 up to 113, WBC improved from 13.3 down to 11.1, sodium decreased from 120 down to 126, remainder of her labs are relatively unremarkable. We will continue to wean oxygen as able. 06/06 Patient seen at bedside, no acute events overnight. She remains on high- flow nasal cannula with BiPAP overnight and is still tachycardic. Heart rate ranging from 104 up to 122, WBC improved from 11.1 down to 10.6, sodium improved from 126 up to 129, remainder of her labs are relatively unremarkable. We will continue to wean oxygen as able. 06/07 patient seen at bedside, no acute events overnight. She is still on high- flow nasal cannula, RT advised to wean oxygen, currently saturating 100% on 30L. She is tachycardic, sodium decreased from 129 down to 123, likely secondary to Bactrim. Patient is asymptomatic, will continue with bactrim, if sodium continues to decrease consider a holiday from bactrim. 06/08 patient seen at bedside, no acute events overnight. She is still on high- flow nasal cannula, RT advised to wean oxygen, currently saturating 100% on 30L. She is tachycardic, sodium stable at 123, same as yesterday. Pending improvement in respiratory status 06/09 patient seen at bedside, he remains on high-flow nasal cannula, we will continue to wean as able, appreciate pulmonology assistance, tachycardic with heart rate ranging from 123 up to 130. She is still having low-grade fevers at 100.8. Sodium increased from 123 up to 130, remainder of her labs are relatively unremarkable. 06/10 patient is seen and examined at bedside, remains on high-flow oxygen, she feels mildly anxious, no chest pain. Still with a cough productive of white phlegm. Still tachycardic, heart rate 117-122. Patient is still spiking low- grade fever. Hemoglobin 10.9, hematocrit 30.5. Sodium remained low at 128, BUN and creatinine of 16 and 0.4. 06/11 patient is seen and examined at bedside, patient now on AVAPS, FiO2 100%, patient became restless last night, she had to be started on Precedex. During my visit she remains alert oriented x3, no chest pain. BP 120/48, she is saturating 100%. Hemoglobin 10 point, hematocrit 31.3. ABG shows persistent hypoxemia, with a PO2 of 69.4. Chest x-ray shows extensive infiltrates on the left which is stable to somewhat increased, there has been interval development of perihilar infiltrate on the right. Normal bilateral lower extremity venous Doppler ultrasound. Continue the patient on prednisone 20 mg p.o. daily, continue Bactrim two tablets p.o. t.i.d. as well as fluconazole 100 mg p.o. daily. 06/12 patient is seen and examined at bedside, intubated, on mechanical ventilation, per discussion with the RN, patient was in respiratory distress yesterday, decision made to intubate the patient. During my visit the patient is midazolam, fentanyl, patient paralyzed, also on Nimbex. She is in a prone position. On pressor support with phenylephrine. Also on Precedex. She is also on hydrocortisone 100 mg IV q.8 hours. Son at bedside, updated. ABG shows pH 7.38, pCO2 47, PO2 122, bicarb of 27.7. 06/13 patient is seen and examined at bedside, remains intubated, on mechanical ventilation, remains on midazolam, fentanyl, patient paralyzed, also on Nimbex. She is in a prone position. On BP pressor support with phenylephrine. Patient is peep of seven. ABG pH 7.34, PO2 72.3. Chest x-ray reviewed, increasing bilateral infiltrates, increasing pneumomediastinum. 06/14 patient is seen and examined at bedside, remains intubated, on mechanical ventilation, prone position, remains on midazolam, fentanyl, patient paralyzed, also on Nimbex. She is in a prone position. Off pressors. Patient is peep of seven. ABG pH 7.34, PO2 72.3. Chest x-ray shows extensive bilateral infiltrates unchanged, no pneumothorax. 06/15 patient is seen and examined at bedside, remains intubated, on mechanical ventilation, prone position, remains paralyzed, on Nimbex. Off pressors. Patient is peep of 10. ABG pH 7.34, PO2 72.3. Chest x-ray shows extensive bilateral infiltrates unchanged, no pneumothorax. Overall condition remains unchanged. No family at bedside. 06/16 patient is seen and examined at bedside, remains intubated, on mechanical ventilation, discussed with the RN, the patient has been placed on supine position. Patient remains on pressor support. Remains on sedation with midazolam and fentanyl BP 114/60, afebrile saturating 96% FiO2 100%, peep of 8. ABG today with pCO2 63, PO2 91.5. Chest x-ray with severe consultation both lungs, unchanged, interval development of pneumomediastinum, moderate to severe. Continue Solu-Medrol 80 mg IV q.8 hours, continue broad-spectrum antibiotics with meropenem 1 g IV q.8 hours, the patient remains on Bactrim. Continue g anciclovir. 06/17 patient seen at bedside, no acute events overnight. She remains intubated, paralyzed on FiO2 of 100% and PEEP of eight. Continue to try to wean towards extubation. Chest x-ray appears mildly improved from yesterday. She remains supine. Hemoglobin improved from 8.4 up to 8.6, platelets decreased from 121 down to 112, CO2 elevated at 41, same as yesterday, remainder of her labs are relatively unremarkable. Patient is still critical with poor prognosis continue further care per critical care team. 06/18 patient seen at bedside, no acute events overnight. She remains intubated and sedated, critical care weaning patient off paralyzing agents. She is still on FiO2 of 100% with PEEP of eight, PO2 on ABG 70.8 down from 80.5 yesterday demonstrating a worsening and her oxygenation within her blood at the same ventilator settings. PCO2 increased from 70 up to 75. Hemoglobin improved from 8.6 up to 9.0, platelets improved from 112 up to 127, CO2 increased from 41 up to 45, remainder of her labs are relatively unremarkable. REVIEW OF SYSTEMS 12 point review of systems negative unless noted in HPI PHYSICAL EXAM GENERAL APPEARANCE: Patient intubated, on mechanical ventilation. NEUROLOGICAL: Cranial nerves II-XII grossly intact. Motor is 5/5 in bilateral upper and lower extremities proximal to distal. No sensory deficits. HEENT: Face is symmetric. Pupils are equal and reactive. Extraocular movements are intact. NECK: Supple. No JVD. No thyromegaly. No submental, submandibular, pre- /postauricular, occipital or supraclavicular lymphadenopathy. CHEST: Normal chest expansion. No Telemetry. LUNGS: Bilateral rhonchi, no expiratory wheezing CARDIOVASCULAR: Regular. S1 and S2 normal. No appreciable rubs, murmurs or gallops. ABDOMEN: Soft, nontender, and nondistended. There is no rebound, voluntary guarding, or rigidity. : Deferred. No Souza. EXTREMITIES: Non-edematous and not cyanotic. No clubbing. Good capillary refill. SKIN: No skin breakdown. Vital Signs (last 8hr) Date Time Temp Pulse Resp B/P (MAP) Pulse Ox O2 Delivery O2 Flow Rate FiO2 06/18/24 12:20 75 100 06/18/24 12:16 97.7 74 28 121/65 (83) 95 110/62 (78) 06/18/24 12:15 75 28 120/65 (83) 95 06/18/24 12:00 75 28 118/63 (81) 95 06/18/24 11:46 75 28 114/62 (79) 96 102/59 (73) 06/18/24 11:45 75 28 115/62 (79) 95 06/18/24 11:30 73 28 116/65 (82) 95 06/18/24 11:16 76 28 117/66 (83) 95 105/61 (76) 06/18/24 11:15 77 28 117/66 (83) 95 06/18/24 11:00 82 28 119/66 (83) 95 06/18/24 10:33 78 31 06/18/24 10:30 77 28 107/56 (73) 94 109/65 (80) 06/18/24 10:00 83 28 134/75 (94) 93 129/85 (100) 06/18/24 09:37 89 100 06/18/24 09:30 88 28 118/63 (81) 91 115/70 (85) 06/18/24 09:00 100 06/18/24 09:00 96 28 121/62 (81) 91 113/66 (82) 06/18/24 08:30 95 28 120/63 (82) 92 117/68 (84) 06/18/24 08:00 97.5 96 28 122/64 (83) 92 120/69 (86) 06/18/24 08:00 91 Ventilator+ 100 06/18/24 08:00 97.5 06/18/24 07:30 95 28 121/60 (80) 92 115/63 (80) 06/18/24 07:00 85 28 115/59 (77) 91 111/61 (78) 06/18/24 06:34 82 31 06/18/24 06:26 89 100 06/18/24 06:00 93 31 118/63 (81) 92 117/64 (81) 06/18/24 05:30 95 32 113/61 (78) 94 115/66 (82) 06/18/24 05:00 98 33 114/61 (78) 93 115/66 (82) LABS: Laboratory: Test 06/18/24 03:55 06/18/24 03:42 06/17/24 05:26 Range/Units White Blood Count 3.5 L 4.8-10.8 K/uL Red Blood Count 2.77 L 4.00-5.50 MIL/uL Hemoglobin 9.0 L 12.0-16.0 g/dL Hematocrit 26.9 L 36-48 % Mean Corpuscular Volume 97.1 79-99 fL Mean Corpuscular Hemoglobin 32.5 27.0-33.0 pg Mean Corpuscular Hemoglobin Concent 33.5 32.0-36.0 g/dL Red Cell Distribution Width 11.6 11.0-15.5 % Platelet Count 127 L 130-400 K/uL Mean Platelet Volume 10.5 7.5-10.5 fL Immature Granulocyte % (Auto) 1.7 H 0-1 % Neutrophils (%) (Auto) 92.6 H 40.0-77.0 % Lymphocytes (%) (Auto) 4.0 L 21.0-51.0 % Monocytes (%) (Auto) 1.4 L 3.0-13.0 % Eosinophils (%) (Auto) 0.0 0.0-8.0 % Basophils (%) (Auto) 0.3 0.0-5.0 % Neutrophils # (Auto) 3.2 1.8-7.7 K/uL Lymphocytes # (Auto) 0.1 L 1.0-4.8 K/uL Monocytes # (Auto) 0.1 0.1-1.0 K/uL Eosinophils # (Auto) 0.00 0.00-0.70 K/uL Basophils # (Auto) 0.01 0.00-0.20 K/uL Absolute Immature Granulocyte (auto 0.06 0-1 K/uL Nucleated Red Blood Cells 0.0 0.0-0.19 % Sodium Level 135 L 136-145 mmol/L Potassium Level 5.1 3.5-5.1 mmol/L Chloride Level 94 L 101-111 mmol/L Carbon Dioxide Level 45 *H 21-32 mmol/L Blood Urea Nitrogen 22 H 7-18 mg/dL Creatinine 0.4 L 0.5-1.0 mg/dL Glomerular Filtration Rate Calc 121 >90 mL/min Random Glucose 163 H 70-105 mg/dL Total Calcium 7.7 L 8.5-10.1 mg/dL Total Bilirubin 0.1 L 0.2-1.0 mg/dL Aspartate Amino Transf (AST/SGOT) 53 H 10-37 U/L Alanine Aminotransferase (ALT/SGPT) 76 # 12-78 U/L Alkaline Phosphatase 105 50-136 U/L Total Protein 4.7 L 6.0-8.3 g/dL Albumin 1.5 L 3.5-5.0 g/dL Blood Gas Specimen Type Arterial Arterial Blood pH 7.371 7.350-7.450 Arterial Blood Partial Pressure CO2 75 *H 32-45 mmHg Arterial Blood Partial Pressure O2 70.8 L 83.0-108.0 mmHg Arterial Blood HCO3 42.5 H 21.0-28.0 mmol/L Arterial Blood Oxygen Saturation 92.4 L 94.0-98.0 % Arterial Blood Base Excess 14.8 H -2.0-3.0 mmol/L Hemoglobin (Blood Gas) 9.7 L 12.0-16.0 g/dL Sodium (Blood Gas) 131 L 136-145 MMOL/L Bedside Potassium (Blood Gas) 5.0 H 3.4-4.5 MMOL/L Bedside Chloride (Blood Gas) 90 L 98-107 MMOL/L Bedside Glucose (Blood Gas) 165 H 65-95 MG/DL Bedside Ionized Calcium (Blood Gas) 1.08 L 1.15-1.33 MMOL/L Bedside Lactic Acid (Blood Gas) 1.64 H 0.36-0.75 MMOL/L Blood Gas Temperature 37.0 35.5-37.0 CELSIUS Blood Gas Respiration Rate 28.0 min. Blood Gas Vent Mode AC VC ROOM AIR FiO2 100.0 % Blood Gas Tidal Volume 450 ml Blood Gas PEEP 8 cm H2O Blood Gas Specimen Comment VANDANA RN ,AL Segmented Neutrophils % 89 H 40-70 % Band Neutrophils % 6 H 0-2 % Lymphocytes % (Manual) 3 L 22-44 % Monocytes % (Manual) 2 2-9 % Differential Comment MANUAL DIFFERENTIAL White Cell Morphology Comment CONSISTENT W/DIFF Platelet Morphology Comment See comments Red Blood Cell Morphology HYPOCHROM CELLS 1+ Current Medications Medications (Trade) Dose Ordered Sig/Julita Route PRN Reason Start Time Stop Time Status Last Admin Dose Admin Acetaminophen (TYLenol 650MG ELIXIR) 650 mg Q6H PRN PO MILD PAIN (1-3) 06/04/24 08:30 07/04/24 08:29 06/10/24 20:07 650 MG Acetaminophen (TYLenol 650MG SUPPOSITORY) 650 mg Q6H PRN RC MILD PAIN (1-3) 05/23/24 20:30 06/22/24 20:29 Acetylcysteine (MUComyst 20% 4ML) 400mg = 2ml [id number] IH 06/02/24 00:00 06/05/24 15:52 DC 06/05/24 11:35 200 MG Albuterol (DUOneb) 1 udvial [id number] IH 05/24/24 00:00 06/10/24 10:28 DC 06/10/24 06:45 1 UDVIAL Alprazolam (XANax 0.5MG) 0.5 mg Q8H PRN PO ANXIETY 06/10/24 13:30 07/10/24 13:29 06/11/24 05:22 0.5 MG Artificial Tears (Artificial Tears) 1 DROP OR AD Q8H OU 06/11/24 14:30 07/11/24 14:29 06/18/24 06:00 1 DROP Azithromycin 250 ml @ 250 mls/hr Q24H IVPB 05/24/24 17:00 05/24/24 14:41 DC Azithromycin 250 ml @ 250 mls/hr Q24H STAT IVPB 05/23/24 17:17 05/24/24 14:41 DC 05/23/24 17:45 250 MLS/HR Benzocaine (Cepacol Sore Throat Lozenge) 1 each Q4H PRN MM SORE THROAT 06/08/24 10:00 07/08/24 09:59 06/09/24 07:44 1 EACH Bisacodyl (DulcoLAX) 10 mg DAILY PRN RC CONSTIPATION 06/08/24 14:00 07/08/24 13:59 06/17/24 05:38 10 MG Cadexomer Iodine (Iodosorb Gel 40gm) 1 appl DAILY TP 06/18/24 09:00 07/18/24 08:59 06/18/24 08:26 1 APPL Cefepime HCl (MAXipime 2 gm vial) 2 gm Q12H IVPB 05/24/24 15:00 06/03/24 14:59 DC 06/03/24 03:18 2 GM Ceftriaxone Sodium (ROCEphine 1G INJ) 1 gm Q24H IVPB 05/24/24 17:30 05/24/24 14:41 DC Chlorhexidine Gluconate (Peridex) 15 ml Q6H MM 06/07/24 17:00 06/11/24 14:27 DC 06/10/24 12:22 15 ML Chlorhexidine Gluconate (Peridex) 15 ml Q8H MM 06/11/24 14:30 06/25/24 14:29 06/18/24 06:00 15 ML Cisatracurium Besylate (Nimbex) ONCE IVP 06/11/24 14:30 06/11/24 15:57 DC Cisatracurium Besylate 100 mg/ Sodium Chloride 100 ml @ 0 mls/hr PROTOCOL IV 06/11/24 23:30 07/11/24 23:29 06/17/24 09:27 14.94 MLS/HR Clotrimazole (Mycelex) 10 mg TID MM 06/04/24 21:00 06/14/24 08:39 DC 06/13/24 20:28 10 MG Dexmedetomidine/ Sodium Chloride (PRECEdex 400MCG/ 100ML-NS) 400 mcg PROTOCOL IV 06/10/24 19:30 07/10/24 19:29 06/12/24 06:32 400 MCG Dobutamine HCl/ Dextrose 250 ml @ 0 mls/hr PROTOCOL IV 06/12/24 16:30 06/12/24 16:53 DC Doxycycline Hyclate 250 ml @ 125 mls/hr Q12H IV 05/24/24 16:30 06/03/24 16:29 DC 06/03/24 04:23 125 MLS/HR Enoxaparin Sodium (Lovenox 80mg) 40 mg DAILY SQ 06/15/24 09:00 06/15/24 09:30 DC Enoxaparin Sodium (Lovenox 80mg) 80 mg BID SQ 06/11/24 09:00 06/14/24 23:28 DC 06/14/24 20:33 80 MG Enoxaparin Sodium (Lovenox) 40 mg DAILY SQ 06/15/24 09:30 07/15/24 09:29 06/18/24 08:01 40 MG Enoxaparin Sodium (Lovenox) 40 mg Q24H SQ 05/23/24 21:00 06/11/24 04:36 DC 06/10/24 20:07 40 MG Famotidine (Pepcid 20mg Vial) 20 mg DAILY IV 05/24/24 09:00 06/14/24 08:39 DC 06/13/24 08:15 20 MG Fentanyl Citrate 2500 mcg/Sodium Chloride 250 ml @ 0 mls/hr AD PRN IV TITRATE 06/17/24 05:30 06/17/24 05:18 DC Fentanyl/Sodium Chloride 250 ml @ 0.1 mls/hr PROTOCOL IV 06/12/24 00:00 06/17/24 00:00 DC 06/16/24 17:36 0.1 MLS/HR Fentanyl/Sodium Chloride 250 ml @ 0 mls/hr AD PRN IV ICU SEDATION 06/17/24 05:30 06/22/24 05:29 06/18/24 07:59 30 MLS/HR Fluconazole (DiFLUCan 100 mg TAB) 200 mg DAILY PO 06/05/24 09:00 07/05/24 08:59 06/18/24 08:00 200 MG Fluconazole/ Sodium Chloride 100 ml @ 100 mls/hr DAILY IV 05/26/24 09:00 05/27/24 15:57 DC 05/27/24 09:07 100 MLS/HR Furosemide (LASix 20MG VIAL) 20 mg DAILY IV 05/31/24 09:00 06/07/24 13:18 DC 06/03/24 08:38 20 MG Furosemide (LASix 20MG VIAL) 20 mg DAILY IV 06/17/24 10:00 06/17/24 12:13 DC 06/17/24 09:46 20 MG Furosemide (LASix 20MG VIAL) 20 mg Q12H IV 06/11/24 11:00 06/13/24 09:31 DC 06/12/24 21:54 20 MG Furosemide (LASix 20MG VIAL) 20 mg Q12H IV 06/17/24 22:00 06/18/24 10:01 DC 06/18/24 09:44 20 MG Furosemide (LASix 20MG VIAL) 20 mg Q8H IV 06/13/24 09:30 06/16/24 11:00 DC 06/16/24 08:44 20 MG Ganciclovir Sodium 430 mg/ Sodium Chloride 100 ml @ 100 mls/hr Q12H IV 06/13/24 09:00 07/13/24 08:59 06/18/24 08:26 100 MLS/HR Ganciclovir Sodium 500 mg/ Sodium Chloride 100 ml @ 100 mls/hr Q12H IV 06/11/24 18:00 06/11/24 15:48 DC Ganciclovir Sodium (Ganciclovir Sodium) 500 mg Q12H IV 06/12/24 17:00 06/13/24 08:35 DC Guaifenesin/ Dextromethorphan (RobiTUSSin DM 200/20MG 10ML) 10 ml Q4H PRN PO COUGH 05/23/24 20:30 06/22/24 20:29 06/10/24 20:07 10 ML Hydrocortisone Sodium Succinate (Solu-corTEF 100MG) 100 mg Q8H IV 06/11/24 05:00 06/14/24 08:39 DC 06/14/24 06:13 100 MG Hydroxyzine HCl (ATArax 25MG TAB) 25 mg TID PRN PO ITCHING 06/10/24 14:00 07/10/24 13:59 06/11/24 05:22 25 MG Ipratropium Jolley (AtrovENT UD) 0.5 MG [id number] IH 06/10/24 14:00 07/10/24 13:59 06/18/24 10:25 0.5 MG Lactated Ringer's (Lactated Ringers 1000ml) 500 ml ONCE IV 06/02/24 20:00 06/02/24 19:54 DC Levofloxacin/ Dextrose 100 ml @ 100 mls/hr Q24H IV 05/24/24 15:00 05/24/24 16:16 DC Magnesium Sulfate 50 ml @ 0 mls/hr PROTOCOL PRN IV hypomagnesemia 05/28/24 08:00 06/27/24 07:59 06/11/24 05:26 50 MLS/HR Meropenem (Merrem) 1 gm Q8H IVPB 06/11/24 15:00 06/13/24 11:52 DC 06/13/24 08:14 1 GM Meropenem (Merrem) 1 gm Q8H IVPB 06/13/24 15:00 06/21/24 14:59 06/18/24 06:03 1 GM Meropenem 1 gm/ Sodium Chloride 100 ml @ 33.333 mls/ hr Q8H IV 06/11/24 14:30 06/11/24 14:28 DC Methylprednisolone Sodium Succinate (Solu-medROL 40MG) 20 mg Q12H IVP 06/05/24 07:00 06/09/24 09:13 DC 06/09/24 07:25 20 MG Methylprednisolone Sodium Succinate (Solu-medROL 40MG) 40 mg Q12H IVP 05/28/24 18:00 05/29/24 16:45 DC 05/29/24 05:32 40 MG Methylprednisolone Sodium Succinate (Solu-medROL 40MG) 40 mg Q6H IVP 05/29/24 16:30 06/04/24 16:44 DC 06/04/24 11:13 40 MG Methylprednisolone Sodium Succinate (Solu-medROL 40MG) 40 mg Q6H IVP 06/04/24 18:00 06/05/24 00:24 DC 06/04/24 23:48 40 MG Methylprednisolone Sodium Succinate (Solu-medROL 40MG) 40 mg Q8H IVP 05/24/24 01:00 05/25/24 21:51 DC 05/25/24 17:28 40 MG Methylprednisolone Sodium Succinate (Solu-medROL 40MG) 60 mg Q6H IVP 05/25/24 22:00 05/28/24 02:25 DC 05/27/24 23:55 60 MG Methylprednisolone Sodium Succinate (Solu-medROL 40MG) 60 mg Q6H IVP 05/28/24 06:00 05/28/24 08:27 DC 05/28/24 06:47 60 MG Methylprednisolone Sodium Succinate (Solu-medROL 40MG) 60 mg Q6H IVP 06/11/24 02:30 06/11/24 04:23 DC 06/11/24 02:46 60 MG Methylprednisolone Sodium Succinate (Solu-medROL 40MG) 80 mg Q8H IVP 06/14/24 17:00 07/14/24 08:59 06/18/24 08:00 80 MG Methylprednisolone Sodium Succinate (Solu-medROL 125MG) 80 mg Q8H IVP 06/14/24 09:00 06/14/24 14:53 DC 06/14/24 08:48 80 MG Metronidazole/ Sodium Chloride (flaGYL) 500 mg Q8H IV 05/25/24 22:00 05/25/24 21:56 DC Midazolam HCl 50 ml @ 0 mls/hr AD PRN IV TITRATE 06/12/24 01:30 06/12/24 08:30 DC 06/12/24 02:30 10 MLS/HR Midazolam HCl 100 ml @ 0 mls/hr AD PRN IV TITRATE 06/12/24 09:00 07/12/24 01:29 06/18/24 05:55 0 MLS/HR Morphine Sulfate (morPHINE 4MG SYG) 4 mg Q4H PRN IM RESPIRATORY SYMPTOMS 06/11/24 03:30 06/14/24 23:33 DC 06/11/24 03:27 4 MG Ondansetron HCl (zoFRAN 4MG INJ) 4 mg Q6H PRN IV NAUSEA/VOMITING 05/23/24 20:30 06/22/24 20:29 Pantoprazole Sodium (PROTonix 40MG INJ) 40 mg BID IVP 06/12/24 21:00 07/12/24 20:59 06/18/24 08:00 40 MG Pharmacy Profile Note (Lace Assessment) 1 each AD MISC 06/17/24 16:30 06/17/24 16:27 DC Pharmacy Profile Note (Pharmacy Communication) 1 each ONCE MISC 06/11/24 14:30 06/11/24 15:53 DC Pharmacy Profile Note (Pharmacy Communication) 1 each ONCE MISC 06/11/24 20:30 06/11/24 20:14 DC Pharmacy Profile Note (Pharmacy Communication) 1 each ONCE MISC 06/12/24 17:00 06/12/24 17:07 DC Phenylephrine HCl 10 mg/Sodium Chloride 251 ml @ 0 mls/hr AD PRN IV DIRECTED 06/11/24 03:00 06/12/24 18:12 DC 06/12/24 14:10 47 MLS/HR Phenylephrine HCl 50 mg/Sodium Chloride 250 ml @ 0 mls/hr PROTOCOL PRN IV PROTOCOL 06/12/24 18:00 07/12/24 17:59 06/13/24 08:57 12.45 MLS/HR Potassium Chloride 100 ml @ 100 mls/hr AD PRN IV POTASSIUM PROTOCOL 05/28/24 08:00 06/27/24 07:59 Potassium Chloride (K-Dur/Klor-Con 20meq) 20 meq AD PRN PO POTASSIUM PROTOCOL 05/28/24 08:00 06/27/24 07:59 Potassium Chloride (KCl 10% Elixir 20meq/15ml) 20 meq AD PRN PO POTASSIUM PROTOCOL 05/28/24 08:00 06/27/24 07:59 Prednisone (deltaSONE/ oraSONE 20MG TAB) 20 mg DAILY PO 06/10/24 09:00 06/14/24 08:39 DC 06/13/24 08:15 20 MG Rocuronium Jolley (ZemuRON) 10 mg Q1H PRN IV RESP DISTRESS/VENT DISYNCHRONY 06/11/24 20:30 06/11/24 23:29 DC 06/11/24 20:33 10 MG Rocuronium Jolley (ZemuRON) 50 mg Q4H PRN IV VENT DYSSYNCHRONY 06/17/24 16:30 07/17/24 16:29 06/18/24 04:38 50 MG Sodium Chloride 500 ml @ 500 mls/hr Q1H IV 06/02/24 20:00 06/02/24 20:59 DC 06/02/24 21:34 500 MLS/HR Sodium Chloride 1,000 ml @ 75 mls/hr [id number] IV 06/07/24 13:30 06/10/24 17:02 DC 06/10/24 09:05 75 MLS/HR Sodium Chloride (Sodium Chloride) 1,000 mg BIDAC PO 06/07/24 16:30 06/09/24 07:28 DC 06/08/24 16:58 1,000 MG Sodium Chloride (Sodium Chloride) 1,000 mg BIDAC PO 06/09/24 07:30 06/12/24 16:35 DC 06/12/24 12:30 1,000 MG Sodium Chloride (Sodium Chloride) 1,000 mg Q12H PO 06/12/24 21:00 07/09/24 07:29 06/18/24 08:00 1,000 MG Sodium Zirconium Cyclosilicate (Lokelma) 5 gm DAILY10 PO 06/08/24 10:30 06/10/24 10:29 DC 06/08/24 10:50 5 GM Trimethoprim/ Sulfamethoxazole (BactRIM DS) 1 tab BID PO 05/26/24 21:00 05/29/24 16:18 DC 05/29/24 08:07 1 TAB Trimethoprim/ Sulfamethoxazole (BactRIM DS) 2 tab TID PO 05/29/24 16:30 06/05/24 20:59 DC 06/05/24 14:55 2 TAB Trimethoprim/ Sulfamethoxazole (BactRIM DS) 2 tab TID PO 06/06/24 09:30 06/11/24 21:54 DC 06/10/24 13:58 2 TAB Trimethoprim/ Sulfamethoxazole 320 mg/Dextrose 500 ml @ 500 mls/hr Q8H IV 06/11/24 22:30 06/12/24 16:35 DC 06/12/24 06:39 500 MLS/HR Trimethoprim/ Sulfamethoxazole 320 mg/Dextrose 500 ml @ 500 mls/hr Q8H IV 06/12/24 18:00 06/13/24 11:13 DC 06/13/24 05:30 500 MLS/HR Trimethoprim/ Sulfamethoxazole 320 mg/Dextrose 500 ml @ 500 mls/hr Q8H IV 06/13/24 13:30 06/23/24 13:29 2/4/25 05:59 500 MLS/HR Valganciclovir (ValGANCIClovir HCL) 900 mg BID PO 06/11/24 21:00 06/13/24 08:37 DC Wound Care/ Dressing Products (Venelex Ointment) 1 VOLODYMYR AD TID TP 06/14/24 14:00 07/14/24 13:59 06/18/24 08:02 1 GM DIAGNOSTICS / RADIOLOGY: [ ] ASSESSMENT: Acute hypoxemic respiratory failure, POA Bilateral lower lobe bacterial pneumonia + MRSA POA, +Azra Suspected PCP PNA based on CT findings vs viral/Atypical PNA . POA HIV positive (preliminary report, confirmatory test nonreactive) POA HSV positive CMV positive Normocytic anemia, not POA Neutrophilia, POA Hyperglycemia, POA Obesity BMI of 32.3 Former smoker Acute cystitis, POA Fatty liver, POA Moderate hypoalbuminemia POA Previous COVID-19 infection Pneumomediastinum PLAN: Continue ICU Patient intubated, mechanical ventilation, wean as able Continue blood pressure support, wean as tolerated Continue fentanyl Wean off paralytic per critical care Continue to follow critical care input recommendation Continue the patient on Bactrim, meropenem, fluconazole. Continue gancyclovir Start furosemide 20mg BID IV per critical care Continue methylprednisolone 80mg TID IV Continue to follow infectious disease input and recommendation Continue to follow chest x-ray Continue to follow ABG Continue bronchodilators per respiratory therapist Replace electrolytes IV per protocol A.m. labs GI and DVT prophylaxis. Further orders to follow based on the above results Disposition: Remains admitted to the ICU, pending improvement clinical condition. Prognosis is poor guarded. Total ICU time spent greater than 30 minutes. HEATHER RICE MD Jun 18, 2024 13:01
--- NOTE | 2024-06-18 13:14 | NUR ---
Nutrition f/u Reviewed labs, notes, and medications. Sedated, weaning off paralytics, on Vital 1.0, hyponatremia 135, vit. D 9, elevated BUN 22, low Cr 0.4, hyperglycemia 163, hypocalcemia 7.7, elevated AST 53, IV fluid, NGT in place, elevated CO2 75 per chart review. Mild pitting, well nourished, 2754 ml 06/17/24, last BM 06/11/24, labia ulcer per nursing. Observed MAP @ 79, Vital 1.0 turned off during visit, not in prone position. Provide vital 1.0 if Vital AF 1.2 not available. Continue trickle feeds of Vital 1.0 @25 ml/hr + 250 Q4H provides: 550kcals, 22 gm pro, 1963 ml per day. Meets: 30% of patients caloric needs, 36% of patients protein needs. Continue trickle feeds of Vital AF 1.2 if Pt on pressors and CO2 elevated. Provide goal rate of Vital AF 1.2 @ 50 ml/hr x 22 hrs once Pt off pressors, CO2 WNL, not on prone position goal rate to provide 77% of kcal needs, 100% of protein needs, Monitor extubation and position of patient. Recommendations: -CONTINUE TRICKLE FEEDS of Vital AF 1.2 @ 25 ml/hr x 22 hrs + 150Q4H Provides: 660kcals, 41 gm pro, 1346 ml per day -Provide goal rate Vital AF 1.2 @ 50 ml/hr x 22 hrs + 150 Q4H ONCE MEDICALLY FEASIBLE Provides: 1320 kcals, 82 gm pro, 1492 ml per day -Monitor BM -If no BM >3 days consider stool softener -Monitor electrolytes -Replenish electrolytes per protocol -Monitor wts -Reweigh as able -Provide vit. D supplement per vit. D 9.1 -Provide b-complex QD -Monitor TF tolerance + need for TF adjustment -Monitor goals of care RD to follow + available for consult per protocol Addendum: 06/18/24 at [address] Amended: Links added.
--- NOTE | 2024-06-18 15:16 | NUR ---
CM NOTE CM was advised by CM director that patient mentioned she would have active insurance starting 06/15/24. CM sent request to financial counselors for assistance with verifying benefits.
--- NOTE | 2024-06-18 17:41 | PN ---
INFECTIOUS DISEASE PROGRESS NOTE Date of Service: Jun 18, 2024 SUBJECTIVE: This is a 49-year-old female patient who was admitted with chief complaint of shortness of breaths. A chest x-ray done on admission showed left lower lung pneumoniae. A CT chest showed bilateral pulmonary infiltrates but no evidence of PE. 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 Patient was seen and examined at bedside in the ICU room 208. Patient continues intubated and sedated on FiO2 of 100%. Patient remains afebrile, temperature is 97.7. Continues on Ganciclovir, Bactrim, Meropenem and fluconazole. Continues on NG tube feedings. No reports of nausea or vomiting. We will continue to follow patient's care. PHYSICAL EXAM EYES: Anicteric. Pupils equal and reactive. HENT: No oral thrush seen, moist Oral mucosa. NG tube. Oropharyngeal lesions. NECK: Supple, no JVD or thyromegaly. RESPIRATORY: Mechanical ventilation.. CARDIOVASCULAR: S1, S2 regular. No murmur heard. ABDOMEN: Soft, non tender, bowel sounds present, no organomegaly. CENTRAL NERVOUS SYSTEM: Intubated. SKIN: No rashes, no swelling. LYMPHATICS: No peripheral lymphadenopathy. MUSCULOSKELETAL: No joint swelling, erythema or tenderness. EXTREMITIES: No cyanosis or clubbing. BACK: No deformity, no pressure ulcer. GENITOURINARY: No dysuria or hematuria. Souza catheter. Vital Sign (Last 12 Hours) 06/18/24 06/18/24 06/18/24 06/18/24 06:00 06:26 06:34 07:00 Pulse 93 89 82 85 Resp 31 31 28 B/P (MAP) 118/63 (81) 115/59 (77) 117/64 (81) 111/61 (78) Pulse Ox 92 91 FiO2 100 06/18/24 06/18/24 06/18/24 06/18/24 07:30 08:00 08:00 08:00 Temp 97.5 97.5 Pulse 95 96 Resp 28 28 B/P (MAP) 121/60 (80) 122/64 (83) 115/63 (80) 120/69 (86) Pulse Ox 92 91 92 O2 Delivery Ventilator+ FiO2 100 2/4/25 2/4/25 2/4/25 2/4/25 08:30 09:00 09:00 09:30 Pulse 95 96 88 Resp B/P (MAP) 120/63 (82) 121/62 (81) 118/63 (81) 117/68 (84) 113/66 (82) 115/70 (85) Pulse Ox 92 91 91 FiO2 100 06/18/24 06/18/24 06/18/24 06/18/24 09:37 10:00 10:30 10:33 Pulse 89 83 77 78 Resp B/P (MAP) 134/75 (94) 107/56 (73) 129/85 (100) 109/65 (80) Pulse Ox 93 94 FiO2 100 06/18/24 06/18/24 06/18/24 06/18/24 11:00 11:15 11:16 11:30 Pulse 82 77 76 73 Resp B/P (MAP) 119/66 (83) 117/66 (83) 117/66 (83) 116/65 (82) 105/61 (76) Pulse Ox 95 95 95 95 06/18/24 06/18/24 06/18/24 06/18/24 11:45 11:46 12:00 12:15 Pulse 75 75 75 75 Resp B/P (MAP) 115/62 (79) 114/62 (79) 118/63 (81) 120/65 (83) 102/59 (73) Pulse Ox 95 96 95 95 06/18/24 06/18/24 06/18/24 06/18/24 12:16 12:20 13:00 13:15 Temp 97.7 Pulse 74 75 82 82 Resp B/P (MAP) 121/65 (83) 116/62 (80) 116/62 (80) 110/62 (78) Pulse Ox 95 95 95 FiO2 100 06/18/24 06/18/24 06/18/24 06/18/24 13:30 13:45 14:00 14:15 Pulse 81 79 79 79 Resp B/P (MAP) 116/61 (79) 116/61 (79) 113/59 (77) 119/63 (81) Pulse Ox 95 94 94 94 06/18/24 06/18/24 06/18/24 06/18/24 14:30 14:35 14:45 15:00 Pulse 81 79 85 80 Resp 28 B/P (MAP) 122/63 (82) 125/65 (85) 124/64 (84) Pulse Ox 95 95 94 06/18/24 06/18/24 06/18/24 15:09 15:15 15:17 Pulse 87 78 78 Resp 28 B/P (MAP) 136/70 (92) 134/69 (90) 127/76 (93) Pulse Ox 95 97 FiO2 100 Intake & Output (last 24hrs) 06/17/24 06/17/24 06/18/24 15:00 23:00 07:00 Intake Total 1599.2 ml 1324.8 ml 1600.0 ml Output Total 1100 ml 550 ml 1600 ml Balance 499.2 ml 774.8 ml 0 ml LABS: Laboratory: Test 06/18/24 03:55 06/18/24 03:42 06/17/24 05:26 Range/Units White Blood Count 3.5 L 4.8-10.8 K/uL Red Blood Count 2.77 L 4.00-5.50 MIL/uL Hemoglobin 9.0 L 12.0-16.0 g/dL Hematocrit 26.9 L 36-48 % Mean Corpuscular Volume 97.1 79-99 fL Mean Corpuscular Hemoglobin 32.5 27.0-33.0 pg Mean Corpuscular Hemoglobin Concent 33.5 32.0-36.0 g/dL Red Cell Distribution Width 11.6 11.0-15.5 % Platelet Count 127 L 130-400 K/uL Mean Platelet Volume 10.5 7.5-10.5 fL Immature Granulocyte % (Auto) 1.7 H 0-1 % Neutrophils (%) (Auto) 92.6 H 40.0-77.0 % Lymphocytes (%) (Auto) 4.0 L 21.0-51.0 % Monocytes (%) (Auto) 1.4 L 3.0-13.0 % Eosinophils (%) (Auto) 0.0 0.0-8.0 % Basophils (%) (Auto) 0.3 0.0-5.0 % Neutrophils # (Auto) 3.2 1.8-7.7 K/uL Lymphocytes # (Auto) 0.1 L 1.0-4.8 K/uL Monocytes # (Auto) 0.1 0.1-1.0 K/uL Eosinophils # (Auto) 0.00 0.00-0.70 K/uL Basophils # (Auto) 0.01 0.00-0.20 K/uL Absolute Immature Granulocyte (auto 0.06 0-1 K/uL Nucleated Red Blood Cells 0.0 0.0-0.19 % Sodium Level 135 L 136-145 mmol/L Potassium Level 5.1 3.5-5.1 mmol/L Chloride Level 94 L 101-111 mmol/L Carbon Dioxide Level 45 *H 21-32 mmol/L Blood Urea Nitrogen 22 H 7-18 mg/dL Creatinine 0.4 L 0.5-1.0 mg/dL Glomerular Filtration Rate Calc 121 >90 mL/min Random Glucose 163 H 70-105 mg/dL Total Calcium 7.7 L 8.5-10.1 mg/dL Total Bilirubin 0.1 L 0.2-1.0 mg/dL Aspartate Amino Transf (AST/SGOT) 53 H 10-37 U/L Alanine Aminotransferase (ALT/SGPT) 76 # 12-78 U/L Alkaline Phosphatase 105 50-136 U/L Total Protein 4.7 L 6.0-8.3 g/dL Albumin 1.5 L 3.5-5.0 g/dL Blood Gas Specimen Type Arterial Arterial Blood pH 7.371 7.350-7.450 Arterial Blood Partial Pressure CO2 75 *H 32-45 mmHg Arterial Blood Partial Pressure O2 70.8 L 83.0-108.0 mmHg Arterial Blood HCO3 42.5 H 21.0-28.0 mmol/L Arterial Blood Oxygen Saturation 92.4 L 94.0-98.0 % Arterial Blood Base Excess 14.8 H -2.0-3.0 mmol/L Hemoglobin (Blood Gas) 9.7 L 12.0-16.0 g/dL Sodium (Blood Gas) 131 L 136-145 MMOL/L Bedside Potassium (Blood Gas) 5.0 H 3.4-4.5 MMOL/L Bedside Chloride (Blood Gas) 90 L 98-107 MMOL/L Bedside Glucose (Blood Gas) 165 H 65-95 MG/DL Bedside Ionized Calcium (Blood Gas) 1.08 L 1.15-1.33 MMOL/L Bedside Lactic Acid (Blood Gas) 1.64 H 0.36-0.75 MMOL/L Blood Gas Temperature 37.0 35.5-37.0 CELSIUS Blood Gas Respiration Rate 28.0 min. Blood Gas Vent Mode AC VC ROOM AIR FiO2 100.0 % Blood Gas Tidal Volume 450 ml Blood Gas PEEP 8 cm H2O Blood Gas Specimen Comment VANDANA CARBAJAL ,AL Segmented Neutrophils % 89 H 40-70 % Band Neutrophils % 6 H 0-2 % Lymphocytes % (Manual) 3 L 22-44 % Monocytes % (Manual) 2 2-9 % Differential Comment MANUAL DIFFERENTIAL White Cell Morphology Comment CONSISTENT W/DIFF Platelet Morphology Comment See comments Red Blood Cell Morphology HYPOCHROM CELLS 1+ ASSESSMENT: Acute hypoxic respiratory failure, s/p intubated on 06/11/2024. Pneumocystis carinii pneumonia. Positive for Cytomegalovirus. Positive HIV test. Infection with methicillin-resistant Staphylococcus aureus. Leukocytosis, resolved. Obesity. Oral candidiasis. Anemia. PLAN: Continue Ganciclovir IV. Continue Bactrim. Continue Meropenem as currently ordered. Continue fluconazole p.o. Continue critical care support. Continue ventilatory support. Continue vasopressor support. Continue steroids. Continue GI prophylaxis. Continue bronchodilators. Continue DVT prophylaxis. This case was reviewed and discussed with my supervising physician and the above assessment and plan was formulated and agreed upon. ATTESTATION BY PHYSICIAN I have seen and examined the patient. I reviewed the documentation, medical decision making, and treatment plan as noted by the mid-level provider above. I agree with the findings and plan of care. [place] MD, MIRTA L SUPERVISOR [employer]ICATION Jun 18, 2024 17:41
[2024-06-19] VITALS (74 sets, daily range): BP systolic 118–161; BP diastolic 65–106; PULSE 81–107; RESP 9–30; TEMP 97–98.8; O2SAT 90–99
[2024-06-19] MEDS: BACTRIM 800MG/160MG 10ML VIAL 320 MG in DEXTROSE 5%-WATER 500 ML IV SCH (01:15)
[2024-06-19] MEDS: MEROPENEM 1GM 1 GM VIAL IVPB SCH (02:01)
[2024-06-19 05:59] LABS: HEMATOCRIT 26.6 % (36-48); IMMATURE GRANULOCYTE ABSOLUTE 0.07 K/uL (0-1); LYMPHOCYTES # (AUTO) 0.1 K/uL (1.0-4.8); LYMPHOCYTES % (AUTO) 2.7 % (21.0-51.0); MEAN CORPUSCULAR HEMOGLOBIN 33.2 pg (27.0-33.0); MEAN CORPUSCULAR HGB CONC 33.8 g/dL (32.0-36.0); MEAN CORPUSCULAR VOLUME 98.2 fL (79-99); MONOCYTES # (AUTO) 0.1 K/uL (0.1-1.0); MONOCYTES % (AUTO) 1.4 % (3.0-13.0); NEUTROPHILS # (AUTO) 4.1 K/uL (1.8-7.7); NEUTROPHILS % (AUTO) 94.3 % (40.0-77.0); NUCLEATED RED BLOOD CELLS 0.5 % (0.0-0.19); PLATELET COUNT (AUTO) 121 K/uL (130-400); RED BLOOD CELL COUNT(AUTO) 2.71 MIL/uL (4.00-5.50); RED CELL DISTRIBUTION WIDTH 11.9 % (11.0-15.5); WHITE BLOOD COUNT (AUTO) 4.4 K/uL (4.8-10.8)
[2024-06-19 06:13] LABS: ALBUMIN 1.5 g/dL (3.5-5.0); BILIRUBIN,TOTAL 0.1 mg/dL (0.2-1.0); CREATININE 0.4 mg/dL (0.5-1.0); POTASSIUM 5.6 mmol/L (3.5-5.1); TOTAL PROTEIN, SERUM 4.6 g/dL (6.0-8.3)
[2024-06-19 07:58] LABS: ABG BASE EXCESS 15.7 mmol/L (-2.0-3.0); ABG HCO3 41.9 mmol/L (21.0-28.0); ABG PCO2 62 mmHg (32-45); ABG PH 7.448 (7.350-7.450); CARBON MONOXIDE 0.2 % (0.5-1.5); PO2, ARTERIAL BG 85.8 mmHg (83.0-108.0); VENT MODE, BG AC (ROOM AIR)
[2024-06-19] MEDS: IODOSORB GEL 40GM TP SCH (08:53)
--- NOTE | 2024-06-19 09:25 | HMCIMG ---
Exam Type: CHEST 1VW Clinical Information: Intubated/PNA Comparison: None Findings: Pulmonary pattern is as before. No worrisome interval changes have taken place. Impression: Stable exam.
--- NOTE | 2024-06-19 11:11 | PN ---
[facility] PROGRESS NOTE Date Patient Seen: Jun 19, 2024 Time of Visit: 11:10 Supervising Physician: Dr. Bacon Primary Care Physician: Stu Foss MD Outpatient Specialists: Inpatient Consults: Pulmonology PROBLEM LIST: Severe ARDS Acute hypoxemic respiratory failure s/p intubation 06/11/24 requiring proning Bilateral lower lobe bacterial pneumonia + MRSA POA, +Azra Confirmed PCP PNA per Ag (serology), POA Pneumomediastinum on x-ray 06/12/24 Disseminated herpes virus infection Elevated DDIMER r/o PE & DVT New HIV/AIDS positive POA Hyponatremia and hyperkalemia, suspected Bactrim induced Normocytic anemia, not POA Neutrophilia, POA Hyperglycemia, POA Obesity BMI of 32.3 Former smoker Fatty liver, POA Moderate hypoalbuminemia POA Previous COVID-19 infection INTERVAL HISTORY: Day # 6 post Intubation. Patient's condition is critical. Patient has a grim prognosis. This morning she was assessed in room 208 in the ICU. She tolerated being supine with O2 sats above 88% since turned yesterday. Continues on sedation and paralyzed with fentanyl at 200 mcg per hour, Versed 10 milligrams/hour, and Nimbex at 2 micrograms/kilogram per minute. Current vital signs blood pressure of 127/66 heart rate in the 80s respiratory rate of 28 on the vent saturating 93% with a FiO2 of 100% and afebrile. Latest ABGs show a pH of 7.37 pCO2 of 70 PO2 of 80 bicarb of 39.7 with vent settings of assist control volume control tidal volume of 425 respiratory rate of 28 FiO2 of 100% and PEEP of 8. PF ratio 80.5. Urine output 1.1 L with a balance of + 2.7 L. on chest x- ray findings consistent with severe persistent bilateral pulmonary opacification. ET tube in correct position. Resolution of the previously seen pneumomediastinum. No pneumothorax.Will continue to follow ABX per ID. There Is No Family At The Bedside At Time Of My Visit. 06/18/2024: At the time of my evaluation, the patient was lying in bed. There was no family members present at the bedside. She remains in the ICU. She is currently on sedation with fentanyl and Versed. RASS score of -5. The patient was taken off Nimbex and is currently on rocuronium IV pushes. She is intubated and mechanically vented, day #7, ACVC FiO2 100%. She also remains on Solu- Medrol 80 mg q.8 hours. Chest x-ray today showed stable examination without any acute intrapulmonary changes. On the monitor, the patient remains hemodynamically stable. Patient remains on feeding through a OGT. Staff nurse reports no residuals, no nausea, vomiting or diarrhea. I and O shows a net balance of 1273.9. The patient continues on antibiotic/antiviral/antifungal therapy with Merrem/Bactrim/ganciclovir and Diflucan. No other complaint. 06/19/2024: At the time of my evaluation, the patient is lying in bed. The staff nurses present at the bedside , no family members. She remains sedated on fentanyl and Versed, currently RASS score of -5. The patient remains intubated and mechanically vented. ACVC rate of 28, TV 450, peep of 8 and FiO2 100%. Chest x-ray showed worsening pulmonary congestion and infiltrates. On the monitor, the patient is hemodynamically stable and is currently not on pressor therapy. She is receiving nutritional support via OGT with Vital HP and no report of nausea, vomiting or diarrhea. The patient remains with Souza catheter in place dark yellow urine. Net balance on I's and O's of 496.6. On labs, the was a slight increase of potassium to 5.6, CO2 of 43 and a BUN of 23. There is no new microbiology data for review. The patient continues on Merrem, ganciclovir, Bactrim and Diflucan guided by the ID specialist. No acute events noted overnight. No other complaint. REVIEW OF SYSTEMS: Unable to obtain ROS from patient due to patient's medical condition. PHYSICAL EXAM: GENERAL: Sedated and intubated, currently SUPINE HEENT: Sclera non icteric, dry scabs and sores to mucosa, sore to rt cheek NECK: short neck no JVD, trachea midline LUNGS: diminished to bilateral breath sounds no wheezing. HEART: Regular rate and rhythm. Normal S1 and S2, without murmurs ABD: Abdomen soft, nontender. Bowel sounds present EXT: No clubbing cyanosis or edema, sore to sacral area, NEURO: Intubated sedated and paralyzed. Vital Signs (last 8hr) Date Time Temp Pulse Resp B/P (MAP) Pulse Ox O2 Delivery O2 Flow Rate FiO2 06/19/24 09:40 90 100 06/19/24 08:16 97.9 89 28 122/68 (86) 94 119/69 (86) 06/19/24 08:00 91 30 126/70 (88) 96 06/19/24 07:46 90 28 123/69 (87) 94 125/75 (92) 06/19/24 07:30 91 27 120/69 (86) 96 06/19/24 07:16 90 23 122/69 (86) 96 120/76 (91) 06/19/24 07:00 91 16 118/67 (84) 96 06/19/24 06:49 91 28 06/19/24 06:49 92 100 06/19/24 06:00 96 27 124/70 (88) 95 126/73 (90) 06/19/24 05:00 99 27 137/77 (97) 95 139/83 (101) 06/19/24 04:00 98.8 100 29 142/79 (100) 93 122/78 (93) 06/19/24 04:00 95 Ventilator+ 100 LABS: Hematology Labs: Test 06/19/24 05:50 Range/Units White Blood Count 4.4 L 4.8-10.8 K/uL Red Blood Count 2.71 L 4.00-5.50 MIL/uL Hemoglobin 9.0 L 12.0-16.0 g/dL Hematocrit 26.6 L 36-48 % Mean Corpuscular Volume 98.2 79-99 fL Mean Corpuscular Hemoglobin 33.2 H 27.0-33.0 pg Mean Corpuscular Hemoglobin Concent 33.8 32.0-36.0 g/dL Red Cell Distribution Width 11.9 11.0-15.5 % Platelet Count 121 L 130-400 K/uL Mean Platelet Volume 10.3 7.5-10.5 fL Immature Granulocyte % (Auto) 1.6 H 0-1 % Neutrophils (%) (Auto) 94.3 H 40.0-77.0 % Lymphocytes (%) (Auto) 2.7 L 21.0-51.0 % Monocytes (%) (Auto) 1.4 L 3.0-13.0 % Eosinophils (%) (Auto) 0.0 0.0-8.0 % Basophils (%) (Auto) 0.0 0.0-5.0 % Neutrophils # (Auto) 4.1 1.8-7.7 K/uL Lymphocytes # (Auto) 0.1 L 1.0-4.8 K/uL Monocytes # (Auto) 0.1 0.1-1.0 K/uL Eosinophils # (Auto) 0.00 0.00-0.70 K/uL Basophils # (Auto) 0.00 0.00-0.20 K/uL Absolute Immature Granulocyte (auto 0.07 0-1 K/uL Nucleated Red Blood Cells 0.5 H 0.0-0.19 % Chemistry Labs: Test 06/19/24 05:50 Range/Units Sodium Level 136 136-145 mmol/L Potassium Level 5.6 H 3.5-5.1 mmol/L Chloride Level 96 L 101-111 mmol/L Carbon Dioxide Level 43 *H 21-32 mmol/L Blood Urea Nitrogen 23 H 7-18 mg/dL Creatinine 0.4 L 0.5-1.0 mg/dL Glomerular Filtration Rate Calc 121 >90 mL/min Random Glucose 196 H 70-105 mg/dL Total Calcium 7.6 L 8.5-10.1 mg/dL Total Bilirubin 0.1 L 0.2-1.0 mg/dL Aspartate Amino Transf (AST/SGOT) 58 H 10-37 U/L Alanine Aminotransferase (ALT/SGPT) 96 H 12-78 U/L Alkaline Phosphatase 113 50-136 U/L Total Protein 4.6 L 6.0-8.3 g/dL Albumin 1.5 L 3.5-5.0 g/dL DIAGNOSTICS / RADIOLOGY RESULTS: [ ] PLAN Continue sedation with fentanyl, versed wean off Nimbex gtt rocuronium pushes as needed for vent dyssynchrony manage vent per abg maintain plateu pressure of < 30 Continue steroids Continue Atrovent q.4 hours. ABX per ID Son is POA 06/18/2024: For now, we are going to continue current management for the patient. We are going to continue with the mechanical ventilator support and we will adjust to maintain optimal ventilation and oxygenation per ABGs. We will continue with rocuronium pushes as needed. We will continue with steroid dose as ordered and we will follow up with serial chest x-ray examination. She remains hemodynamically stable and is not requiring any pressor therapy. We will continue with nutritional support via the NGT and we will continue monitoring for any high residuals, nausea, vomiting or diarrhea events. We will continue monitoring the I's and O's. The patient will continue on antibiotic/antiviral/antifungal therapy as ordered and we will follow the guidance of the Infectious Disease team. We will monitor the patient's progress and response to management. Her condition remains critical and prognosis is poor. We will continue to provide general supportive care, GI and DVT prophyla xis. Further orders per attending MD and hospital course. 06/19/2024: For now, we are going to continue current management for the patient. She will remain mechanically vented for now. Currently, not a candidate for weaning trials. Considering the worsening findings on chest x- ray, I am going to request a CT of the chest without contrast. We will continue to monitor her vital signs parameters and treat accordingly. She will continue on nutritional support via the OGT and we will monitor for nausea, vomiting or diarrhea. We will follow the input of the treating specialist. I am going to request a repeat potassium level and we will correct as necessary. We will monitor the patient's progress and response to management. The patients condition is critical and her prognosis is grim. We will continue to provide general supportive care, GI and DVT prophylaxis. Further orders per attending MD and hospital course. NEURO: Minimize central acting medications as possible. Fall Precautions. Well lighted room through the day and minimize interruptions through the night to prevent acute delirium. PULMONARY: Supplemental 02 as needed Titrate Fio2 to keep Spo2 > or = 90% DuoNebs and CPT as needed IS hourly while awake for pulmonary hygiene Out of bed to chair as tolerated CARDIOVASCULAR: Follow hemodynamics. Titrate vasopressor to keep MAP >65 or systolic blood pressure >95mmHg Telemetry LINES: CVC RT IJ Arterial line ET tube' FC OG tube GI & NUTRITION: Continue nutritional support Aspirations precautions Prokinetic agents and laxatives as needed KIDNEYS & ELECTROLYTES: Strict monitoring of intake and output Daily weights Avoid nephrotoxic agents Monitor electrolytes and replace as needed Goal urine output of 30mL/hr or 0.5mL/kg/hr ENDOCRINE: Maintain blood glucose between 100-180 at all times. Insulin sliding scale for blood glucose management INFECTIOUS DISEASE: Trend temperature. Clarke-culture if febrile. Sputum culture from 05/23/24 positive for MRSA, Betty albicans Pneumocystis carinii antigen positive Panculture: 06/02/24 Blood cultures Urine cultures Respiratory culture Antibiotics: Bactrim DS Fluconazole Valganciclovir Meropenem HEMATOLOGY & COAGULATION: Monitor H&H. Keep Hgb > 7 Transfuse 1 unit of PRBC for Hgb < 7 Transfuse 1 pack of platelets of platelets < 20, 000 Watch for any signs and symptoms of bleeding SKIN: Pressure ulcer prevention per facility protocol Rehab: PT/OT Prophylaxis: GI: Pepcid DVT: Lovenox Code Status: Full Resuscitation Disposition: ICU Other: Critical care time I personally spent 45 minutes of critical care time in treatment of this patient. This includes patient management, time at bedside, time reviewing tests, labs, appropriate images and studies, documentation, and patient care coordination. This time excludes separately billable procedures. DAYRON RUBIN NP Jun 19, 2024 11:11
[2024-06-19] MEDS: SODIUM ZIRCONIUM CYCLOSILICATE 5 GM POWD.PACK PO ONE (12:31)
--- NOTE | 2024-06-19 16:13 | PN ---
[facility] PROGRESS NOTE Date of Service: Jun 19, 2024 Time of Service: 16:12 SUBJECTIVE: [ ] Ms. Abdullahi is a 49-year-old female that was seen and examined today on 05/23/2024. Patient is a good historian and personal health. Patient's son Dagoberto Salcido is at bedside. Patient states that she came to the emergency department with a chief complaint of shortness of breath. Onset was two weeks ago. Location is to lungs. Duration is on and off. Character is described as "easily running out of air." Initially shortness and breath was only aggravated with climbing one or two flights of stairs but symptoms have progressively worsened and patient becomes short of breath even standing or walking short distances. There was no alleviating factors however previously symptoms were being controlled with daily morning albuterol nebulizer treatments. Patient denies any associated chest pain or dizziness. Patient reports an episode of COVID in December 2023. emergency department CBC unremarkable, chemistry unremarkable, urinalysis unremarkable, influenza screen negative, COVID negative, blood gas shows PO2 less than 45. Chest x-ray shows left lower lung pneumonia and minimal right lung base atelectasis. Upon arrival to the emergency department patient was placed on a BiPAP due to respiratory distress. 05/24/2024-patient was seen and examined at the bedside, still on BiPAP. Patient is able to speak, and says she feels much better than before. Patient says after COVID in December she developed severe bronchitis and she was on Solu-Medrol and albuterol, which did not help her much and later she had high fevers and shortness of breath which is when she came to the ED.Vitals afebrile pulse 76, RR 38 tachypneic , blood pressure 115/68, pulse oxygen 99 on BiPAP flow of 60. On ABG pH 7.47, pCO2 29, PO2 109.4, oxygen saturation 98.3. [id number] potassium 4.1 BUN15 creatinine 0.5 GFR 114. We will closely monitor the patient. [employer] consult noted waiting on the recommendation 05/25/24 patient was seen and examined and case discussed with RN and family by the bedside. She was breathing better today. She has been on BiPAP all night but now he was on 100% non-rebreather with further efforts to continue to wean the oxygen requirements down. 05/27/24 patient is seen and examined at bedside, acute events overnight, case discussed with the RN, BP 131/64, afebrile, saturating 96-97% via Ventimask, FiO2 40%. The patient admits cough productive of clear phlegm. Serology tests reviewed, HIV preliminary positive, discussed with the patient. 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 We will continue the patient on IV antibiotics, continue fluconazole, continue to follow Pulmonary and ID input and recommendations. After provided in the preliminary results of HIV test, she denies any suicidal or homicidal ideations. 05/28 patient has been seen and examined, no acute events overnight, case discussed with the RN, during my visit patient is sitting comfortably in the chair, hemodynamically stable, off Ventimask, currently on 10 L via nasal cannula, saturating 98%, tolerated BiPAP overnight. she feels better, less shortness a breath, still admits cough productive of yellow phlegm. No chest pain. Getting IV antibiotics during my visit. HIV P24 antigen, nonreactive. We will continue to follow Pulmonary and Infectious Disease input and recommendations. 05/29 patient has been seen and examined, no acute events overnight, case discussed with the RN, during my visit patient is sitting comfortably in the chair, hemodynamically stable, remains on 10 L via nasal cannula, saturating 98%, still admits cough productive of yellow phlegm. No chest pain. Getting IV antibiotics during my visit. HIV P24 antigen, nonreactive. Pending CD4 cell count. We will continue to follow Pulmonary and Infectious Disease input and recommendations. 05/30 the patient has been seen and examined, no acute events overnight, BP 114/66, during my visit she is on Ventimask, saturating 95%, FiO2 60%. Without the Ventimask the patient desaturates to the low 70s. Patient tolerating BiPAP during the night. Still admits cough productive of thick yellow phlegm, no chest pain. Results of CD4 cell count reviewed, discussed with the patient. We will continue broad-spectrum IV antibiotics. Continue to follow Pulmonary and Infectious Disease input and recommendations. 05/31 the patient has been seen and examined, upgraded to the ICU, during my visit she is sitting in the chair, BP 113/72, heart rate of 109, she is on Oxymizer, 30 L, FiO2 100%. She is alert oriented x3, still admits cough productive of thick yellow phlegm, no chest pain. Hemoglobin 12.9, hematocrit 36.6, WBC 14.6. ABG with pH 7.4, pCO2 40, PO2. Chest x-ray shows left lower lo be infiltrate consistent with pneumonia. She is getting IV antibiotics during my visit. Patient will remain in the ICU, continue to follow critical Care as well as infectious disease input and recommendations. 06/01 patient is seen and examined, sitting comfortable in chair, awake, following commands, remains on high-flow oxygen, FiO2 70%, 30 L, BP 117/67, heart rate of 78, respiratory rate of 30-36, saturating 100%, CBC with a hemoglobin 13.6, hematocrit 38.9, WBC 12.4. Platelet count of 341. Chest x-ray showing persistent left lung infiltrate, cardiac size and mediastinum unremarkable. The bony structures are within the normal limits. Patient getting IV antibiotics during my visit. Patient to continue with the high-dose steroids. Serology test positive for Pneumocystis sandra. Patient on Bactrim two tablets p.o. t.i.d.. Continue also doxycycline and cefepime IV. Continue to follow infectious disease input and recommendation. Continue to follow Pulmonary input and recommendations. 06/02 patient is seen and examined at bedside, currently in prone position, alert oriented x3. CPT started last night, she has started having more loose phlegm expectorated. BP 114/74, tachycardic 114, saturating 95%, high-flow nasal cannula, 30 L, FiO2 80%. CBC with a hemoglobin 16.9, hemoglobin 14 0, hematocrit 39.8, platelet count 347. Chest x-ray shows persistent left lung infiltrate. 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 HIV preliminary positive, HIV P 24 nonreactive, HIV-one RNA by PCR [id number]. Serology test for toxoplasma currently pending. Patient on IV antibiotics as well as high-dose steroids. Continue to follow infectious Disease and Pulmonary input and recommendations. 06/03 patient seen at bedside, no acute events overnight. She continues with respiratory distress, with increasing oxygen requirements. Critical Care has discussed a possible need for intubation if she does not improve. She has been started on steroids due to underlying PCP pneumonia. WBC improved from 16.9 down to 13.5, sodium stable at 132, same as yesterday, lactic acid downtrending from 4.1 down to 3.2, remainder of her labs are relatively unremarkable. 06/04 patient seen at bedside, no acute events overnight. She remains on high- flow nasal cannula, mildly tachycardic. WBC elevated at 13.3, sodium decreased from 132 down to 129, remainder of her labs are relatively unremarkable. Continue to wean supplemental oxygen. Further care per critical Care 06/05 patient seen at bedside, no acute events overnight. She remains on high- flow nasal cannula with BiPAP overnight and is still tachycardic. Heart rate ranging from 104 up to 113, WBC improved from 13.3 down to 11.1, sodium decreased from 120 down to 126, remainder of her labs are relatively unremarkable. We will continue to wean oxygen as able. 06/06 Patient seen at bedside, no acute events overnight. She remains on high- flow nasal cannula with BiPAP overnight and is still tachycardic. Heart rate ranging from 104 up to 122, WBC improved from 11.1 down to 10.6, sodium improved from 126 up to 129, remainder of her labs are relatively unremarkable. We will continue to wean oxygen as able. 06/07 patient seen at bedside, no acute events overnight. She is still on high- flow nasal cannula, RT advised to wean oxygen, currently saturating 100% on 30L. She is tachycardic, sodium decreased from 129 down to 123, likely secondary to Bactrim. Patient is asymptomatic, will continue with bactrim, if sodium continues to decrease consider a holiday from bactrim. 06/08 patient seen at bedside, no acute events overnight. She is still on high- flow nasal cannula, RT advised to wean oxygen, currently saturating 100% on 30L. She is tachycardic, sodium stable at 123, same as yesterday. Pending improvement in respiratory status 06/09 patient seen at bedside, he remains on high-flow nasal cannula, we will continue to wean as able, appreciate pulmonology assistance, tachycardic with heart rate ranging from 123 up to 130. She is still having low-grade fevers at 100.8. Sodium increased from 123 up to 130, remainder of her labs are relatively unremarkable. 06/10 patient is seen and examined at bedside, remains on high-flow oxygen, she feels mildly anxious, no chest pain. Still with a cough productive of white phlegm. Still tachycardic, heart rate 117-122. Patient is still spiking low- grade fever. Hemoglobin 10.9, hematocrit 30.5. Sodium remained low at 128, BUN and creatinine of 16 and 0.4. 06/11 patient is seen and examined at bedside, patient now on AVAPS, FiO2 100%, patient became restless last night, she had to be started on Precedex. During my visit she remains alert oriented x3, no chest pain. BP 120/48, she is saturating 100%. Hemoglobin 10 point, hematocrit 31.3. ABG shows persistent hypoxemia, with a PO2 of 69.4. Chest x-ray shows extensive infiltrates on the left which is stable to somewhat increased, there has been interval development of perihilar infiltrate on the right. Normal bilateral lower extremity venous Doppler ultrasound. Continue the patient on prednisone 20 mg p.o. daily, continue Bactrim two tablets p.o. t.i.d. as well as fluconazole 100 mg p.o. daily. 06/12 patient is seen and examined at bedside, intubated, on mechanical ventilation, per discussion with the RN, patient was in respiratory distress yesterday, decision made to intubate the patient. During my visit the patient is midazolam, fentanyl, patient paralyzed, also on Nimbex. She is in a prone position. On pressor support with phenylephrine. Also on Precedex. She is also on hydrocortisone 100 mg IV q.8 hours. Son at bedside, updated. ABG shows pH 7.38, pCO2 47, PO2 122, bicarb of 27.7. 06/13 patient is seen and examined at bedside, remains intubated, on mechanical ventilation, remains on midazolam, fentanyl, patient paralyzed, also on Nimbex. She is in a prone position. On BP pressor support with phenylephrine. Patient is peep of seven. ABG pH 7.34, PO2 72.3. Chest x-ray reviewed, increasing bilateral infiltrates, increasing pneumomediastinum. 06/14 patient is seen and examined at bedside, remains intubated, on mechanical ventilation, prone position, remains on midazolam, fentanyl, patient paralyzed, also on Nimbex. She is in a prone position. Off pressors. Patient is peep of seven. ABG pH 7.34, PO2 72.3. Chest x-ray shows extensive bilateral infiltrates unchanged, no pneumothorax. 06/15 patient is seen and examined at bedside, remains intubated, on mechanical ventilation, prone position, remains paralyzed, on Nimbex. Off pressors. Patient is peep of 10. ABG pH 7.34, PO2 72.3. Chest x-ray shows extensive bilateral infiltrates unchanged, no pneumothorax. Overall condition remains unchanged. No family at bedside. 06/16 patient is seen and examined at bedside, remains intubated, on mechanical ventilation, discussed with the RN, the patient has been placed on supine position. Patient remains on pressor support. Remains on sedation with midazolam and fentanyl BP 114/60, afebrile saturating 96% FiO2 100%, peep of 8. ABG today with pCO2 63, PO2 91.5. Chest x-ray with severe consultation both lungs, unchanged, interval development of pneumomediastinum, moderate to severe. Continue Solu-Medrol 80 mg IV q.8 hours, continue broad-spectrum antibiotics with meropenem 1 g IV q.8 hours, the patient remains on Bactrim. Continue g anciclovir. 2 patient seen at bedside, no acute events overnight. She remains intubated, paralyzed on FiO2 of 100% and PEEP of eight. Continue to try to wean towards extubation. Chest x-ray appears mildly improved from yesterday. She remains supine. Hemoglobin improved from 8.4 up to 8.6, platelets decreased from 121 down to 112, CO2 elevated at 41, same as yesterday, remainder of her labs are relatively unremarkable. Patient is still critical with poor prognosis continue further care per critical care team. 2 patient seen at bedside, no acute events overnight. She remains intubated and sedated, critical care weaning patient off paralyzing agents. She is still on FiO2 of 100% with PEEP of eight, PO2 on ABG 70.8 down from 80.5 yesterday demonstrating a worsening and her oxygenation within her blood at the same ventilator settings. PCO2 increased from 70 up to 75. Hemoglobin improved from 8.6 up to 9.0, platelets improved from 112 up to 127, CO2 increased from 41 up to 45, remainder of her labs are relatively unremarkable. 2 patient seen at bedside, no acute events overnight. She remains intubated and sedated, critical Care to continue trying to wean to extubation. Continue current care further recommendations per critical Care REVIEW OF SYSTEMS 12 point review of systems negative unless noted in HPI PHYSICAL EXAM GENERAL APPEARANCE: Patient intubated, on mechanical ventilation. NEUROLOGICAL: Cranial nerves II-XII grossly intact. Motor is 5/5 in bilateral upper and lower extremities proximal to distal. No sensory deficits. HEENT: Face is symmetric. Pupils are equal and reactive. Extraocular movements are intact. NECK: Supple. No JVD. No thyromegaly. No submental, submandibular, pre- /postauricular, occipital or supraclavicular lymphadenopathy. CHEST: Normal chest expansion. No Telemetry. LUNGS: Bilateral rhonchi, no expiratory wheezing CARDIOVASCULAR: Regular. S1 and S2 normal. No appreciable rubs, murmurs or gallops. ABDOMEN: Soft, nontender, and nondistended. There is no rebound, voluntary guarding, or rigidity. : Deferred. No Souza. EXTREMITIES: Non-edematous and not cyanotic. No clubbing. Good capillary refill. SKIN: No skin breakdown. Vital Signs (last 8hr) Date Time Temp Pulse Resp B/P (MAP) Pulse Ox O2 Delivery O2 Flow Rate FiO2 06/19/24 15:09 86 100 06/19/24 15:00 98.6 84 28 125/69 (87) 96 06/19/24 14:45 87 28 123/68 (86) 96 06/19/24 14:30 85 28 127/70 (89) 96 06/19/24 14:15 86 28 121/68 (85) 97 06/19/24 14:07 85 28 06/19/24 14:00 87 29 125/69 (87) 97 06/19/24 13:46 87 28 121/67 (85) 93 130/77 (94) 06/19/24 13:45 89 28 120/66 (84) 97 06/19/24 13:37 91 28 132/72 (92) 97 128/80 (96) 06/19/24 13:30 92 28 131/70 (90) 97 06/19/24 13:15 95 28 138/73 (94) 97 06/19/24 13:00 101 28 132/73 (92) 92 06/19/24 12:30 97 28 129/73 (91) 94 06/19/24 12:15 98 28 135/76 (95) 95 06/19/24 12:04 104 100 06/19/24 12:00 102 28 127/71 (89) 95 06/19/24 11:46 97.0 104 28 135/74 (94) 94 131/89 (103) 06/19/24 11:45 104 29 134/73 (93) 94 06/19/24 11:30 107 22 139/75 (96) 95 06/19/24 11:16 105 30 137/75 (95) 95 128/75 (92) 06/19/24 11:15 107 15 130/72 (91) 96 06/19/24 11:00 104 9 133/71 (91) 96 06/19/24 10:46 104 133/72 (92) 96 126/76 (93) 06/19/24 10:45 105 130/70 (90) 96 06/19/24 10:30 104 27 130/70 (90) 93 06/19/24 10:30 98 28 06/19/24 10:16 99 28 134/72 (92) 89 126/79 (95) 06/19/24 10:15 98 20 134/72 (92) 90 06/19/24 10:00 93 26 135/71 (92) 89 06/19/24 09:46 88 27 128/70 (89) 88 128/75 (92) 06/19/24 09:45 88 28 129/70 (89) 89 06/19/24 09:40 90 100 06/19/24 09:30 89 28 133/73 (93) 93 06/19/24 09:16 86 27 128/71 (90) 95 125/78 (94) 06/19/24 09:15 87 26 130/72 (91) 95 06/19/24 09:00 89 28 122/68 (86) 96 06/19/24 08:16 97.9 89 28 122/68 (86) 94 119/69 (86) LABS: Laboratory: Test 06/19/24 12:10 06/19/24 11:30 06/19/24 07:56 06/19/24 05:50 Range/Units Whole Blood Glucose 212 H 70-110 MG/DL Potassium Level 5.3 H 3.5-5.1 mmol/L Blood Gas Specimen Type Arterial Arterial Blood pH 7.448 7.350-7.450 Arterial Blood Partial Pressure CO2 62 *H 32-45 mmHg Arterial Blood Partial Pressure O2 85.8 83.0-108.0 mmHg Arterial Blood HCO3 41.9 H 21.0-28.0 mmol/L Arterial Blood Oxygen Saturation 96.0 94.0-98.0 % Arterial Blood Base Excess 15.7 H -2.0-3.0 mmol/L Hemoglobin (Blood Gas) 9.6 L 12.0-16.0 g/dL Sodium (Blood Gas) 129 L 136-145 MMOL/L Bedside Potassium (Blood Gas) 5.2 H 3.4-4.5 MMOL/L Bedside Chloride (Blood Gas) 89 *L 98-107 MMOL/L Bedside Glucose (Blood Gas) 182 H 65-95 MG/DL Bedside Ionized Calcium (Blood Gas) 1.08 L 1.15-1.33 MMOL/L Bedside Lactic Acid (Blood Gas) 1.82 H 0.36-0.75 MMOL/L Blood Gas Temperature 37.0 35.5-37.0 CELSIUS Blood Gas Respiration Rate 28.0 min. Blood Gas Vent Mode AC ROOM AIR FiO2 100.0 % Blood Gas Tidal Volume 450 ml Blood Gas PEEP 5 cm H2O Blood Gas Specimen Comment HUI SHAH RN White Blood Count 4.4 L 4.8-10.8 K/uL Red Blood Count 2.71 L 4.00-5.50 MIL/uL Hemoglobin 9.0 L 12.0-16.0 g/dL Hematocrit 26.6 L 36-48 % Mean Corpuscular Volume 98.2 79-99 fL Mean Corpuscular Hemoglobin 33.2 H 27.0-33.0 pg Mean Corpuscular Hemoglobin Concent 33.8 32.0-36.0 g/dL Red Cell Distribution Width 11.9 11.0-15.5 % Platelet Count 121 L 130-400 K/uL Mean Platelet Volume 10.3 7.5-10.5 fL Immature Granulocyte % (Auto) 1.6 H 0-1 % Neutrophils (%) (Auto) 94.3 H 40.0-77.0 % Lymphocytes (%) (Auto) 2.7 L 21.0-51.0 % Monocytes (%) (Auto) 1.4 L 3.0-13.0 % Eosinophils (%) (Auto) 0.0 0.0-8.0 % Basophils (%) (Auto) 0.0 0.0-5.0 % Neutrophils # (Auto) 4.1 1.8-7.7 K/uL Lymphocytes # (Auto) 0.1 L 1.0-4.8 K/uL Monocytes # (Auto) 0.1 0.1-1.0 K/uL Eosinophils # (Auto) 0.00 0.00-0.70 K/uL Basophils # (Auto) 0.00 0.00-0.20 K/uL Absolute Immature Granulocyte (auto 0.07 0-1 K/uL Nucleated Red Blood Cells 0.5 H 0.0-0.19 % Sodium Level 136 136-145 mmol/L Chloride Level 96 L 101-111 mmol/L Carbon Dioxide Level 43 *H 21-32 mmol/L Blood Urea Nitrogen 23 H 7-18 mg/dL Creatinine 0.4 L 0.5-1.0 mg/dL Glomerular Filtration Rate Calc 121 >90 mL/min Random Glucose 196 H 70-105 mg/dL Total Calcium 7.6 L 8.5-10.1 mg/dL Total Bilirubin 0.1 L 0.2-1.0 mg/dL Aspartate Amino Transf (AST/SGOT) 58 H 10-37 U/L Alanine Aminotransferase (ALT/SGPT) 96 H 12-78 U/L Alkaline Phosphatase 113 50-136 U/L Total Protein 4.6 L 6.0-8.3 g/dL Albumin 1.5 L 3.5-5.0 g/dL Current Medications Medications (Trade) Dose Ordered Sig/Julita Route PRN Reason Start Time Stop Time Status Last Admin Dose Admin Acetaminophen (TYLenol 650MG ELIXIR) 650 mg Q6H PRN PO MILD PAIN (1-3) 06/04/24 08:30 07/04/24 08:29 06/10/24 20:07 650 MG Acetaminophen (TYLenol 650MG SUPPOSITORY) 650 mg Q6H PRN RC MILD PAIN (1-3) 05/23/24 20:30 06/22/24 20:29 Acetylcysteine (MUComyst 20% 4ML) 400mg = 2ml [id number] IH 06/02/24 00:00 06/05/24 15:52 DC 06/05/24 11:35 200 MG Albuterol (DUOneb) 1 udvial [id number] IH 05/24/24 00:00 06/10/24 10:28 DC 06/10/24 06:45 1 UDVIAL Alprazolam (XANax 0.5MG) 0.5 mg Q8H PRN PO ANXIETY 06/10/24 13:30 07/10/24 13:29 06/11/24 05:22 0.5 MG Artificial Tears (Artificial Tears) 1 DROP OR AD Q8H OU 06/11/24 14:30 07/11/24 14:29 06/19/24 13:40 1 DROP Azithromycin 250 ml @ 250 mls/hr Q24H IVPB 05/24/24 17:00 05/24/24 14:41 DC Azithromycin 250 ml @ 250 mls/hr Q24H STAT IVPB 05/23/24 17:17 05/24/24 14:41 DC 05/23/24 17:45 250 MLS/HR Benzocaine (Cepacol Sore Throat Lozenge) 1 each Q4H PRN MM SORE THROAT 06/08/24 10:00 07/08/24 09:59 06/09/24 07:44 1 EACH Bisacodyl (DulcoLAX) 10 mg DAILY PRN RC CONSTIPATION 06/08/24 14:00 07/08/24 13:59 06/19/24 11:41 10 MG Cadexomer Iodine (Iodosorb Gel 40gm) 1 APPL TO RIGHT FAC... DAILY TP 06/19/24 09:00 07/18/24 08:59 06/19/24 08:53 1 APPL Cadexomer Iodine (Iodosorb Gel 40gm) 1 appl DAILY TP 06/18/24 09:00 06/19/24 07:23 DC 06/18/24 14:09 1 APPL Cefepime HCl (MAXipime 2 gm vial) 2 gm Q12H IVPB 05/24/24 15:00 06/03/24 14:59 DC 06/03/24 03:18 2 GM Ceftriaxone Sodium (ROCEphine 1G INJ) 1 gm Q24H IVPB 05/24/24 17:30 05/24/24 14:41 DC Chlorhexidine Gluconate (Peridex) 15 ml Q6H MM 06/07/24 17:00 06/11/24 14:27 DC 06/10/24 12:22 15 ML Chlorhexidine Gluconate (Peridex) 15 ml Q8H MM 06/11/24 14:30 06/25/24 14:29 06/19/24 13:39 15 ML Cisatracurium Besylate (Nimbex) ONCE IVP 06/11/24 14:30 06/11/24 15:57 DC Cisatracurium Besylate 100 mg/ Sodium Chloride 100 ml @ 0 mls/hr PROTOCOL IV 06/11/24 23:30 07/11/24 23:29 06/17/24 09:27 14.94 MLS/HR Clotrimazole (Mycelex) 10 mg TID MM 06/04/24 21:00 06/14/24 08:39 DC 06/13/24 20:28 10 MG Dexmedetomidine/ Sodium Chloride (PRECEdex 400MCG/ 100ML-NS) 400 mcg PROTOCOL IV 06/10/24 19:30 07/10/24 19:29 06/12/24 06:32 400 MCG Dobutamine HCl/ Dextrose 250 ml @ 0 mls/hr PROTOCOL IV 06/12/24 16:30 06/12/24 16:53 DC Doxycycline Hyclate 250 ml @ 125 mls/hr Q12H IV 05/24/24 16:30 06/03/24 16:29 DC 06/03/24 04:23 125 MLS/HR Enoxaparin Sodium (Lovenox 80mg) 40 mg DAILY SQ 06/15/24 09:00 06/15/24 09:30 DC Enoxaparin Sodium (Lovenox 80mg) 80 mg BID SQ 06/11/24 09:00 06/14/24 23:28 DC 06/14/24 20:33 80 MG Enoxaparin Sodium (Lovenox) 40 mg DAILY SQ 06/15/24 09:30 07/15/24 09:29 06/19/24 08:52 40 MG Enoxaparin Sodium (Lovenox) 40 mg Q24H SQ 05/23/24 21:00 06/11/24 04:36 DC 06/10/24 20:07 40 MG Famotidine (Pepcid 20mg Vial) 20 mg DAILY IV 05/24/24 09:00 06/14/24 08:39 DC 06/13/24 08:15 20 MG Fentanyl Citrate 2500 mcg/Sodium Chloride 250 ml @ 0 mls/hr AD PRN IV TITRATE 06/17/24 05:30 06/17/24 05:18 DC Fentanyl/Sodium Chloride 250 ml @ 0.1 mls/hr PROTOCOL IV 06/12/24 00:00 06/17/24 00:00 DC 06/16/24 17:36 0.1 MLS/HR Fentanyl/Sodium Chloride 250 ml @ 0 mls/hr AD PRN IV ICU SEDATION 06/17/24 05:30 06/22/24 05:29 06/19/24 13:39 30 MLS/HR Fluconazole (DiFLUCan 100 mg TAB) 200 mg DAILY PO 06/05/24 09:00 07/05/24 08:59 06/19/24 08:52 200 MG Fluconazole/ Sodium Chloride 100 ml @ 100 mls/hr DAILY IV 05/26/24 09:00 05/27/24 15:57 DC 05/27/24 09:07 100 MLS/HR Furosemide (LASix 20MG VIAL) 20 mg DAILY IV 05/31/24 09:00 06/07/24 13:18 DC 06/03/24 08:38 20 MG Furosemide (LASix 20MG VIAL) 20 mg DAILY IV 06/17/24 10:00 06/17/24 12:13 DC 06/17/24 09:46 20 MG Furosemide (LASix 20MG VIAL) 20 mg Q12H IV 06/11/24 11:00 06/13/24 09:31 DC 06/12/24 21:54 20 MG Furosemide (LASix 20MG VIAL) 20 mg Q12H IV 06/17/24 22:00 06/18/24 10:01 DC 06/18/24 09:44 20 MG Furosemide (LASix 20MG VIAL) 20 mg Q8H IV 06/13/24 09:30 06/16/24 11:00 DC 06/16/24 08:44 20 MG Ganciclovir Sodium 430 mg/ Sodium Chloride 100 ml @ 100 mls/hr Q12H IV 06/13/24 09:00 07/13/24 08:59 06/19/24 11:37 100 MLS/HR Ganciclovir Sodium 500 mg/ Sodium Chloride 100 ml @ 100 mls/hr Q12H IV 06/11/24 18:00 06/11/24 15:48 DC Ganciclovir Sodium (Ganciclovir Sodium) 500 mg Q12H IV 06/12/24 17:00 06/13/24 08:35 DC Guaifenesin/ Dextromethorphan (RobiTUSSin DM 200/20MG 10ML) 10 ml Q4H PRN PO COUGH 05/23/24 20:30 06/22/24 20:29 06/10/24 20:07 10 ML Hydrocortisone Sodium Succinate (Solu-corTEF 100MG) 100 mg Q8H IV 06/11/24 05:00 06/14/24 08:39 DC 06/14/24 06:13 100 MG Hydroxyzine HCl (ATArax 25MG TAB) 25 mg TID PRN PO ITCHING 06/10/24 14:00 07/10/24 13:59 06/11/24 05:22 25 MG Insulin Human Regular (humuLIN R 100 UNIT/ML 3ML) INSULIN SLIDING SCAL... ACHS SQ 06/19/24 16:30 07/19/24 16:29 Ipratropium [place] (AtrovENT UD) 0.5 MG [id number] IH 06/10/24 14:00 07/10/24 13:59 06/19/24 14:07 0.5 MG Lactated Ringer's (Lactated Ringers 1000ml) 500 ml ONCE IV 06/02/24 20:00 06/02/24 19:54 DC Levofloxacin/ Dextrose 100 ml @ 100 mls/hr Q24H IV 05/24/24 15:00 05/24/24 16:16 DC Magnesium Sulfate 50 ml @ 0 mls/hr PROTOCOL PRN IV hypomagnesemia 05/28/24 08:00 06/27/24 07:59 06/11/24 05:26 50 MLS/HR Meropenem (Merrem 1gm) 1 gm Q8H IVPB 06/13/24 15:00 06/18/24 21:57 DC 06/18/24 15:34 1 GM Meropenem (Merrem 1gm) 1 gm Q8H IVPB 06/19/24 01:00 06/21/24 00:59 06/19/24 08:52 1 GM Meropenem (Merrem) 1 gm Q8H IVPB 06/11/24 15:00 06/13/24 11:52 DC 06/13/24 08:14 1 GM Meropenem 1 gm/ Sodium Chloride 100 ml @ 33.333 mls/ hr Q8H IV 06/11/24 14:30 06/11/24 14:28 DC Methylprednisolone Sodium Succinate (Solu-medROL 40MG) 20 mg Q12H IVP 06/05/24 07:00 06/09/24 09:13 DC 06/09/24 07:25 20 MG Methylprednisolone Sodium Succinate (Solu-medROL 40MG) 40 mg Q12H IVP 05/28/24 18:00 05/29/24 16:45 DC 05/29/24 05:32 40 MG Methylprednisolone Sodium Succinate (Solu-medROL 40MG) 40 mg Q6H IVP 05/29/24 16:30 06/04/24 16:44 DC 06/04/24 11:13 40 MG Methylprednisolone Sodium Succinate (Solu-medROL 40MG) 40 mg Q6H IVP 06/04/24 18:00 06/05/24 00:24 DC 06/04/24 23:48 40 MG Methylprednisolone Sodium Succinate (Solu-medROL 40MG) 40 mg Q8H IVP 05/24/24 01:00 05/25/24 21:51 DC 05/25/24 17:28 40 MG Methylprednisolone Sodium Succinate (Solu-medROL 40MG) 60 mg Q6H IVP 05/25/24 22:00 05/28/24 02:25 DC 05/27/24 23:55 60 MG Methylprednisolone Sodium Succinate (Solu-medROL 40MG) 60 mg Q6H IVP 05/28/24 06:00 05/28/24 08:27 DC 05/28/24 06:47 60 MG Methylprednisolone Sodium Succinate (Solu-medROL 40MG) 60 mg Q6H IVP 06/11/24 02:30 06/11/24 04:23 DC 06/11/24 02:46 60 MG Methylprednisolone Sodium Succinate (Solu-medROL 40MG) 80 mg Q8H IVP 06/14/24 17:00 07/14/24 08:59 06/19/24 08:52 80 MG Methylprednisolone Sodium Succinate (Solu-medROL 125MG) 80 mg Q8H IVP 06/14/24 09:00 06/14/24 14:53 DC 06/14/24 08:48 80 MG Metronidazole/ Sodium Chloride (flaGYL) 500 mg Q8H IV 05/25/24 22:00 05/25/24 21:56 DC Midazolam HCl 50 ml @ 0 mls/hr AD PRN IV TITRATE 06/12/24 01:30 06/12/24 08:30 DC 06/12/24 02:30 10 MLS/HR Midazolam HCl 100 ml @ 0 mls/hr AD PRN IV TITRATE 06/12/24 09:00 07/12/24 01:29 06/19/24 13:57 10 MLS/HR Morphine Sulfate (morPHINE 4MG SYG) 4 mg Q4H PRN IM RESPIRATORY SYMPTOMS 06/11/24 03:30 06/14/24 23:33 DC 06/11/24 03:27 4 MG Ondansetron HCl (zoFRAN 4MG INJ) 4 mg Q6H PRN IV NAUSEA/VOMITING 05/23/24 20:30 06/22/24 20:29 Pantoprazole Sodium (PROTonix 40MG INJ) 40 mg BID IVP 06/12/24 21:00 07/12/24 20:59 06/19/24 08:52 40 MG Pharmacy Profile Note (Lace Assessment) 1 each AD MISC 06/17/24 16:30 06/17/24 16:27 DC Pharmacy Profile Note (Pharmacy Communication) 1 each ONCE MISC 06/11/24 14:30 06/11/24 15:53 DC Pharmacy Profile Note (Pharmacy Communication) 1 each ONCE MISC 06/11/24 20:30 06/11/24 20:14 DC Pharmacy Profile Note (Pharmacy Communication) 1 each ONCE MISC 06/12/24 17:00 06/12/24 17:07 DC Phenylephrine HCl 10 mg/Sodium Chloride 251 ml @ 0 mls/hr AD PRN IV DIRECTED 06/11/24 03:00 06/12/24 18:12 DC 06/12/24 14:10 47 MLS/HR Phenylephrine HCl 50 mg/Sodium Chloride 250 ml @ 0 mls/hr PROTOCOL PRN IV PROTOCOL 06/12/24 18:00 07/12/24 17:59 06/13/24 08:57 12.45 MLS/HR Potassium Chloride 100 ml @ 100 mls/hr AD PRN IV POTASSIUM PROTOCOL 05/28/24 08:00 06/27/24 07:59 Potassium Chloride (K-Dur/Klor-Con 20meq) 20 meq AD PRN PO POTASSIUM PROTOCOL 05/28/24 08:00 06/27/24 07:59 Potassium Chloride (KCl 10% Elixir 20meq/15ml) 20 meq AD PRN PO POTASSIUM PROTOCOL 05/28/24 08:00 06/27/24 07:59 Prednisone (deltaSONE/ oraSONE 20MG TAB) 20 mg DAILY PO 06/10/24 09:00 06/14/24 08:39 DC 06/13/24 08:15 20 MG Rocuronium [place] (ZemuRON) 10 mg Q1H PRN IV RESP DISTRESS/VENT DISYNCHRONY 06/11/24 20:30 06/11/24 23:29 DC 06/11/24 20:33 10 MG Rocuronium [place] (ZemuRON) 50 mg Q4H PRN IV VENT DYSSYNCHRONY 06/17/24 16:30 07/17/24 16:29 06/19/24 10:42 50 MG Sodium Chloride 500 ml @ 500 mls/hr Q1H IV 06/02/24 20:00 06/02/24 20:59 DC 06/02/24 21:34 500 MLS/HR Sodium Chloride 1,000 ml @ 75 mls/hr [id number] IV 06/07/24 13:30 06/10/24 17:02 DC 06/10/24 09:05 75 MLS/HR Sodium Chloride (Sodium Chloride) 1,000 mg BIDAC PO 06/07/24 16:30 06/09/24 07:28 DC 06/08/24 16:58 1,000 MG Sodium Chloride (Sodium Chloride) 1,000 mg BIDAC PO 06/09/24 07:30 06/12/24 16:35 DC 06/12/24 12:30 1,000 MG Sodium Chloride (Sodium Chloride) 1,000 mg Q12H PO 06/12/24 21:00 07/09/24 07:29 06/19/24 08:52 1,000 MG Sodium Zirconium Cyclosilicate (Lokelma) 5 gm DAILY10 PO 06/08/24 10:30 06/10/24 10:29 DC 06/08/24 10:50 5 GM Trimethoprim/ Sulfamethoxazole (BactRIM DS) 1 tab BID PO 05/26/24 21:00 05/29/24 16:18 DC 05/29/24 08:07 1 TAB Trimethoprim/ Sulfamethoxazole (BactRIM DS) 2 tab TID PO 05/29/24 16:30 06/05/24 20:59 DC 06/05/24 14:55 2 TAB Trimethoprim/ Sulfamethoxazole (BactRIM DS) 2 tab TID PO 06/06/24 09:30 06/11/24 21:54 DC 06/10/24 13:58 2 TAB Trimethoprim/ Sulfamethoxazole 320 mg/Dextrose 500 ml @ 333.333 mls/hr Q8H IV 06/19/24 00:30 06/23/24 00:29 06/19/24 09:19 333.333 MLS/HR Trimethoprim/ Sulfamethoxazole 320 mg/Dextrose 500 ml @ 500 mls/hr Q8H IV 06/11/24 22:30 06/12/24 16:35 DC 06/12/24 06:39 500 MLS/HR Trimethoprim/ Sulfamethoxazole 320 mg/Dextrose 500 ml @ 500 mls/hr Q8H IV 06/12/24 18:00 06/13/24 11:13 DC 06/13/24 05:30 500 MLS/HR Trimethoprim/ Sulfamethoxazole 320 mg/Dextrose 500 ml @ 500 mls/hr Q8H IV 06/13/24 13:30 06/18/24 21:55 DC 06/18/24 14:08 500 MLS/HR Trimethoprim/ Sulfamethoxazole 320 mg/Dextrose 500 ml @ 500 mls/hr Q8H IV 06/18/24 11:59 06/19/24 00:56 DC 06/18/24 11:59 500 MLS/HR Valganciclovir (ValGANCIClovir HCL) 900 mg BID PO 06/11/24 21:00 06/13/24 08:37 DC Wound Care/ Dressing Products (Venelex Ointment) 1 VOLODYMYR AD TID TP 06/14/24 14:00 07/14/24 13:59 06/19/24 13:41 1 GM DIAGNOSTICS / RADIOLOGY: [ ] ASSESSMENT: Acute hypoxemic respiratory failure, POA Bilateral lower lobe bacterial pneumonia + MRSA POA, +Azra Suspected PCP PNA based on CT findings vs viral/Atypical PNA . POA HIV positive (preliminary report, confirmatory test nonreactive) POA HSV positive CMV positive Normocytic anemia, not POA Neutrophilia, POA Hyperglycemia, POA Obesity BMI of 32.3 Former smoker Acute cystitis, POA Fatty liver, POA Moderate hypoalbuminemia POA Previous COVID-19 infection Pneumomediastinum PLAN: Continue ICU Patient intubated, mechanical ventilation, wean as able Continue blood pressure support, wean as tolerated Continue fentanyl Wean off paralytic per critical care Continue to follow critical care input recommendation Continue the patient on Bactrim, meropenem, fluconazole. Continue gancyclovir Start furosemide 20mg BID IV per critical care Continue methylprednisolone 80mg TID IV Continue to follow infectious disease input and recommendation Continue to follow chest x-ray Continue to follow ABG Continue bronchodilators per respiratory therapist Replace electrolytes IV per protocol A.m. labs GI and DVT prophylaxis. Further orders to follow based on the above results Disposition: Remains admitted to the ICU, pending improvement clinical condition. Prognosis is poor guarded. Total ICU time spent greater than 30 minutes. HEATHER RICE MD Jun 19, 2024 16:13
[2024-06-19] MEDS: furoSEMIDE 20MG VIAL IV SCH (17:29)
[2024-06-19] MEDS: INSULIN humuLIN R 100 UNIT/ML 3ML SQ SCH (18:15)
--- NOTE | 2024-06-19 20:24 | PN ---
INFECTIOUS DISEASE PROGRESS NOTE Date of Service: Jun 19, 2024 SUBJECTIVE: This is a 49-year-old female patient who was admitted with chief complaint of shortness of breaths. A chest x-ray done on admission showed left lower lung pneumoniae. A CT chest showed bilateral pulmonary infiltrates but no evidence of PE. 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 Patient was seen and examined at bedside in the ICU room 208. Patient continues intubated and on sedation with FiO2 of 100%. Can continue the Ganciclovir for 14 days. Remains on Bactrim, Meropenem and fluconazole. Continues on NG tube feedings. Patient is afebrile, temperature is 97.0. We will continue to follow patient's care. PHYSICAL EXAM EYES: Anicteric. Pupils equal and reactive. HENT: No oral thrush seen, moist Oral mucosa. NG tube. Oropharyngeal lesions. NECK: Supple, no JVD or thyromegaly. RESPIRATORY: Mechanical ventilation.. CARDIOVASCULAR: S1, S2 regular. No murmur heard. ABDOMEN: Soft, non tender, bowel sounds present, no organomegaly. CENTRAL NERVOUS SYSTEM: Intubated. SKIN: No rashes, no swelling. LYMPHATICS: No peripheral lymphadenopathy. MUSCULOSKELETAL: No joint swelling, erythema or tenderness. EXTREMITIES: No cyanosis or clubbing. BACK: No deformity, no pressure ulcer. GENITOURINARY: No dysuria or hematuria. Souza catheter. Vital Sign (Last 12 Hours) 06/19/24 06/19/24 06/19/24 06/19/24 09:00 09:15 09:16 09:30 Pulse 89 87 86 89 Resp 28 B/P (MAP) 122/68 (86) 130/72 (91) 128/71 (90) 133/73 (93) 125/78 (94) Pulse Ox 96 95 95 93 06/19/24 06/19/24 06/19/24 06/19/24 09:40 09:45 09:46 10:00 Pulse 90 88 88 93 Resp 28 27 26 B/P (MAP) 129/70 (89) 128/70 (89) 135/71 (92) 128/75 (92) Pulse Ox 89 88 89 FiO2 100 06/19/24 06/19/24 06/19/24 06/19/24 10:15 10:16 10:30 10:30 Pulse 98 99 98 104 Resp B/P (MAP) 134/72 (92) 134/72 (92) 130/70 (90) 126/79 (95) Pulse Ox 90 89 93 06/19/24 06/19/24 06/19/24 06/19/24 10:45 10:46 11:00 11:15 Pulse 105 104 104 107 Resp 9 15 B/P (MAP) 130/70 (90) 133/72 (92) 133/71 (91) 130/72 (91) 126/76 (93) Pulse Ox 96 96 96 96 06/19/24 06/19/24 06/19/24 06/19/24 11:16 11:30 11:45 11:46 Temp 97.0 Pulse 105 107 104 104 Resp B/P (MAP) 137/75 (95) 139/75 (96) 134/73 (93) 135/74 (94) 128/75 (92) 131/89 (103) Pulse Ox 95 95 94 94 06/19/24 06/19/24 06/19/24 06/19/24 12:00 12:04 12:15 12:30 Pulse 102 104 98 97 Resp B/P (MAP) 127/71 (89) 135/76 (95) 129/73 (91) Pulse Ox 95 95 94 FiO2 100 06/19/24 06/19/24 06/19/24 06/19/24 13:00 13:15 13:30 13:37 Pulse 101 95 92 91 Resp B/P (MAP) 132/73 (92) 138/73 (94) 131/70 (90) 132/72 (92) 128/80 (96) Pulse Ox 92 97 97 97 06/19/24 06/19/24 06/19/24 06/19/24 13:45 13:46 14:00 14:00 Pulse 89 87 87 Resp B/P (MAP) 120/66 (84) 121/67 (85) 125/69 (87) 130/77 (94) Pulse Ox 97 93 97 FiO2 100 06/19/24 06/19/24 06/19/24 06/19/24 14:07 14:15 14:30 14:45 Pulse 85 86 85 87 Resp B/P (MAP) 121/68 (85) 127/70 (89) 123/68 (86) Pulse Ox 97 96 96 06/19/24 06/19/24 06/19/24 06/19/24 15:00 15:09 16:00 16:15 Temp 98.6 Pulse 84 86 87 88 B/P (MAP) 125/69 (87) 124/69 (87) 124/69 (87) Pulse Ox 96 96 97 FiO2 100 06/19/24 06/19/24 06/19/24 06/19/24 16:30 16:45 17:00 17:00 Pulse 86 88 89 B/P (MAP) 126/70 (88) 128/69 (88) 126/68 (87) Pulse Ox 97 96 96 FiO2 100 06/19/24 06/19/24 06/19/24 06/19/24 17:15 17:28 17:30 17:45 Pulse 91 90 89 86 Resp B/P (MAP) 129/70 (89) 161/92 (115) 156/87 (110) 141/79 (99) 155/106 (122) Pulse Ox 97 96 96 95 06/19/24 06/19/24 06/19/24 06/19/24 17:46 18:00 18:27 18:28 Pulse 84 84 89 89 Resp B/P (MAP) 144/82 (102) 129/70 (89) 149/92 (111) Pulse Ox 92 95 FiO2 100 Intake & Output (last 24hrs) 06/18/24 06/18/24 06/19/24 15:00 23:00 07:00 Intake Total 1450.0 ml 700.0 ml 1251.6 ml Output Total 450 ml 1500 ml 950 ml Balance 1000.0 ml -800.0 ml 301.6 ml LABS: Laboratory: Test 06/19/24 18:07 06/19/24 11:30 06/19/24 07:56 06/19/24 05:50 Range/Units Whole Blood Glucose 277 H 70-110 MG/DL Potassium Level 5.3 H 3.5-5.1 mmol/L Blood Gas Specimen Type Arterial Arterial Blood pH 7.448 7.350-7.450 Arterial Blood Partial Pressure CO2 62 *H 32-45 mmHg Arterial Blood Partial Pressure O2 85.8 83.0-108.0 mmHg Arterial Blood HCO3 41.9 H 21.0-28.0 mmol/L Arterial Blood Oxygen Saturation 96.0 94.0-98.0 % Arterial Blood Base Excess 15.7 H -2.0-3.0 mmol/L Hemoglobin (Blood Gas) 9.6 L 12.0-16.0 g/dL Sodium (Blood Gas) 129 L 136-145 MMOL/L Bedside Potassium (Blood Gas) 5.2 H 3.4-4.5 MMOL/L Bedside Chloride (Blood Gas) 89 *L 98-107 MMOL/L Bedside Glucose (Blood Gas) 182 H 65-95 MG/DL Bedside Ionized Calcium (Blood Gas) 1.08 L 1.15-1.33 MMOL/L Bedside Lactic Acid (Blood Gas) 1.82 H 0.36-0.75 MMOL/L Blood Gas Temperature 37.0 35.5-37.0 CELSIUS Blood Gas Respiration Rate 28.0 min. Blood Gas Vent Mode AC ROOM AIR FiO2 100.0 % Blood Gas Tidal Volume 450 ml Blood Gas PEEP 5 cm H2O Blood Gas Specimen Comment HUI SHAH,RAVEN White Blood Count 4.4 L 4.8-10.8 K/uL Red Blood Count 2.71 L 4.00-5.50 MIL/uL Hemoglobin 9.0 L 12.0-16.0 g/dL Hematocrit 26.6 L 36-48 % Mean Corpuscular Volume 98.2 79-99 fL Mean Corpuscular Hemoglobin 33.2 H 27.0-33.0 pg Mean Corpuscular Hemoglobin Concent 33.8 32.0-36.0 g/dL Red Cell Distribution Width 11.9 11.0-15.5 % Platelet Count 121 L 130-400 K/uL Mean Platelet Volume 10.3 7.5-10.5 fL Immature Granulocyte % (Auto) 1.6 H 0-1 % Neutrophils (%) (Auto) 94.3 H 40.0-77.0 % Lymphocytes (%) (Auto) 2.7 L 21.0-51.0 % Monocytes (%) (Auto) 1.4 L 3.0-13.0 % Eosinophils (%) (Auto) 0.0 0.0-8.0 % Basophils (%) (Auto) 0.0 0.0-5.0 % Neutrophils # (Auto) 4.1 1.8-7.7 K/uL Lymphocytes # (Auto) 0.1 L 1.0-4.8 K/uL Monocytes # (Auto) 0.1 0.1-1.0 K/uL Eosinophils # (Auto) 0.00 0.00-0.70 K/uL Basophils # (Auto) 0.00 0.00-0.20 K/uL Absolute Immature Granulocyte (auto 0.07 0-1 K/uL Nucleated Red Blood Cells 0.5 H 0.0-0.19 % Sodium Level 136 136-145 mmol/L Chloride Level 96 L 101-111 mmol/L Carbon Dioxide Level 43 *H 21-32 mmol/L Blood Urea Nitrogen 23 H 7-18 mg/dL Creatinine 0.4 L 0.5-1.0 mg/dL Glomerular Filtration Rate Calc 121 >90 mL/min Random Glucose 196 H 70-105 mg/dL Total Calcium 7.6 L 8.5-10.1 mg/dL Total Bilirubin 0.1 L 0.2-1.0 mg/dL Aspartate Amino Transf (AST/SGOT) 58 H 10-37 U/L Alanine Aminotransferase (ALT/SGPT) 96 H 12-78 U/L Alkaline Phosphatase 113 50-136 U/L Total Protein 4.6 L 6.0-8.3 g/dL Albumin 1.5 L 3.5-5.0 g/dL ASSESSMENT: Acute hypoxic respiratory failure, s/p intubated on 06/11/2024. Pneumocystis carinii pneumonia. Positive for Cytomegalovirus. Positive HIV test. Infection with methicillin-resistant Staphylococcus aureus. Leukocytosis, resolved. Obesity. Oral candidiasis. Anemia. PLAN: Continue Ganciclovir IV for 14 days. Continue Bactrim. Continue Meropenem as currently ordered. Continue fluconazole p.o. Continue critical care support. Continue ventilatory support. Continue steroids. Continue GI prophylaxis. Continue bronchodilators. Continue DVT prophylaxis. This case was reviewed and discussed with my supervising physician and the above assessment and plan was formulated and agreed upon. ATTESTATION BY PHYSICIAN I have seen and examined the patient. I reviewed the documentation, medical decision making, and treatment plan as noted by the mid-level provider above. I agree with the findings and plan of care. [place] MD, MIRTA L FNP Jun 19, 2024 20:24
[2024-06-20] VITALS (77 sets, daily range): BP systolic 113–170; BP diastolic 60–98; PULSE 81–133; RESP 7–35; TEMP 96.4–98.9; O2SAT 93–98
[2024-06-20 04:27] LABS: BASOPHILS # (AUTO) 0.01 K/uL (0.00-0.20); BASOPHILS % (AUTO) 0.2 % (0.0-5.0); HEMATOCRIT 27.4 % (36-48); IMMATURE GRANULOCYTE ABSOLUTE 0.08 K/uL (0-1); LYMPHOCYTES # (AUTO) 0.1 K/uL (1.0-4.8); LYMPHOCYTES % (AUTO) 2.6 % (21.0-51.0); MEAN CORPUSCULAR HEMOGLOBIN 32.7 pg (27.0-33.0); MEAN CORPUSCULAR HGB CONC 33.6 g/dL (32.0-36.0); MEAN CORPUSCULAR VOLUME 97.5 fL (79-99); MONOCYTES # (AUTO) 0.1 K/uL (0.1-1.0); MONOCYTES % (AUTO) 1.5 % (3.0-13.0); NEUTROPHILS # (AUTO) 4.3 K/uL (1.8-7.7); NUCLEATED RED BLOOD CELLS 0.4 % (0.0-0.19); PLATELET COUNT (AUTO) 121 K/uL (130-400); RED BLOOD CELL COUNT(AUTO) 2.81 MIL/uL (4.00-5.50); WHITE BLOOD COUNT (AUTO) 4.6 K/uL (4.8-10.8)
[2024-06-20 04:42] LABS: ALBUMIN 1.6 g/dL (3.5-5.0); BILIRUBIN,TOTAL 0.1 mg/dL (0.2-1.0); CREATININE 0.4 mg/dL (0.5-1.0); POTASSIUM 5.3 mmol/L (3.5-5.1); TOTAL PROTEIN, SERUM 4.8 g/dL (6.0-8.3)
--- NOTE | 2024-06-20 11:16 | NUR ---
[facility] RECEIVED CALL FROM SARAH LONDON. ALL QUESTIONS ANSWERED AT THIS TIME
--- NOTE | 2024-06-20 11:43 | NUR ---
RR MID 30's ROCURONIUM 50 MG IVP ADMINISTERED AT THIS TIME Addendum: 06/20/24 at 1751 by WENDY VÁZQUEZ RN RN 1750 PM ROCURONIUM 50 MG IVP #2 ADMINISTERED AT THIS TIME. PT RR 33, SATING 88%.
--- NOTE | 2024-06-20 11:48 | PN ---
[facility] PROGRESS NOTE Date of Service: Jun 20, 2024 Time of Service: 11:46 SUBJECTIVE: [ ] Ms. Abdullahi is a 49-year-old female that was seen and examined today on 05/23/2024. Patient is a good historian and personal health. Patient's son Dagoberto Salcido is at bedside. Patient states that she came to the emergency department with a chief complaint of shortness of breath. Onset was two weeks ago. Location is to lungs. Duration is on and off. Character is described as "easily running out of air." Initially shortness and breath was only aggravated with climbing one or two flights of stairs but symptoms have progressively worsened and patient becomes short of breath even standing or walking short distances. There was no alleviating factors however previously symptoms were being controlled with daily morning albuterol nebulizer treatments. Patient denies any associated chest pain or dizziness. Patient reports an episode of COVID in December 2023. emergency department CBC unremarkable, chemistry unremarkable, urinalysis unremarkable, influenza screen negative, COVID negative, blood gas shows PO2 less than 45. Chest x-ray shows left lower lung pneumonia and minimal right lung base atelectasis. Upon arrival to the emergency department patient was placed on a BiPAP due to respiratory distress. 05/24/2024-patient was seen and examined at the bedside, still on BiPAP. Patient is able to speak, and says she feels much better than before. Patient says after COVID in December she developed severe bronchitis and she was on Solu-Medrol and albuterol, which did not help her much and later she had high fevers and shortness of breath which is when she came to the ED.Vitals afebrile pulse 76, RR 38 tachypneic , blood pressure 115/68, pulse oxygen 99 on BiPAP flow of 60. On ABG pH 7.47, pCO2 29, PO2 109.4, oxygen saturation 98.3. [id number] potassium 4.1 BUN15 creatinine 0.5 GFR 114. We will closely monitor the patient. Director General consult noted waiting on the recommendation 05/25/24 patient was seen and examined and case discussed with RN and family by the bedside. She was breathing better today. She has been on BiPAP all night but now he was on 100% non-rebreather with further efforts to continue to wean the oxygen requirements down. 05/27/24 patient is seen and examined at bedside, acute events overnight, case discussed with the RN, BP 131/64, afebrile, saturating 96-97% via Ventimask, FiO2 40%. The patient admits cough productive of clear phlegm. Serology tests reviewed, HIV preliminary positive, discussed with the patient. 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 We will continue the patient on IV antibiotics, continue fluconazole, continue to follow Pulmonary and ID input and recommendations. After provided in the preliminary results of HIV test, she denies any suicidal or homicidal ideations. 05/28 patient has been seen and examined, no acute events overnight, case discussed with the RN, during my visit patient is sitting comfortably in the chair, hemodynamically stable, off Ventimask, currently on 10 L via nasal cannula, saturating 98%, tolerated BiPAP overnight. she feels better, less shortness a breath, still admits cough productive of yellow phlegm. No chest pain. Getting IV antibiotics during my visit. HIV P24 antigen, nonreactive. We will continue to follow Pulmonary and Infectious Disease input and recommendations. 05/29 patient has been seen and examined, no acute events overnight, case discussed with the RN, during my visit patient is sitting comfortably in the chair, hemodynamically stable, remains on 10 L via nasal cannula, saturating 98%, still admits cough productive of yellow phlegm. No chest pain. Getting IV antibiotics during my visit. HIV P24 antigen, nonreactive. Pending CD4 cell count. We will continue to follow Pulmonary and Infectious Disease input and recommendations. 05/30 the patient has been seen and examined, no acute events overnight, BP 114/66, during my visit she is on Ventimask, saturating 95%, FiO2 60%. Without the Ventimask the patient desaturates to the low 70s. Patient tolerating BiPAP during the night. Still admits cough productive of thick yellow phlegm, no chest pain. Results of CD4 cell count reviewed, discussed with the patient. We will continue broad-spectrum IV antibiotics. Continue to follow Pulmonary and Infectious Disease input and recommendations. 05/31 the patient has been seen and examined, upgraded to the ICU, during my visit she is sitting in the chair, BP 113/72, heart rate of 109, she is on Oxymizer, 30 L, FiO2 100%. She is alert oriented x3, still admits cough productive of thick yellow phlegm, no chest pain. Hemoglobin 12.9, hematocrit 36.6, WBC 14.6. ABG with pH 7.4, pCO2 40, PO2. Chest x-ray shows left lower lo be infiltrate consistent with pneumonia. She is getting IV antibiotics during my visit. Patient will remain in the ICU, continue to follow critical Care as well as infectious disease input and recommendations. 06/01 patient is seen and examined, sitting comfortable in chair, awake, following commands, remains on high-flow oxygen, FiO2 70%, 30 L, BP 117/67, heart rate of 78, respiratory rate of 30-36, saturating 100%, CBC with a hemoglobin 13.6, hematocrit 38.9, WBC 12.4. Platelet count of 341. Chest x-ray showing persistent left lung infiltrate, cardiac size and mediastinum unremarkable. The bony structures are within the normal limits. Patient getting IV antibiotics during my visit. Patient to continue with the high-dose steroids. Serology test positive for Pneumocystis sandra. Patient on Bactrim two tablets p.o. t.i.d.. Continue also doxycycline and cefepime IV. Continue to follow infectious disease input and recommendation. Continue to follow Pulmonary input and recommendations. 06/02 patient is seen and examined at bedside, currently in prone position, alert oriented x3. CPT started last night, she has started having more loose phlegm expectorated. BP 114/74, tachycardic 114, saturating 95%, high-flow nasal cannula, 30 L, FiO2 80%. CBC with a hemoglobin 16.9, hemoglobin 14 0, hematocrit 39.8, platelet count 347. Chest x-ray shows persistent left lung infiltrate. 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 HIV preliminary positive, HIV P 24 nonreactive, HIV-one RNA by PCR [id number]. Serology test for toxoplasma currently pending. Patient on IV antibiotics as well as high-dose steroids. Continue to follow infectious Disease and Pulmonary input and recommendations. 06/03 patient seen at bedside, no acute events overnight. She continues with respiratory distress, with increasing oxygen requirements. Critical Care has discussed a possible need for intubation if she does not improve. She has been started on steroids due to underlying PCP pneumonia. WBC improved from 16.9 down to 13.5, sodium stable at 132, same as yesterday, lactic acid downtrending from 4.1 down to 3.2, remainder of her labs are relatively unremarkable. 06/04 patient seen at bedside, no acute events overnight. She remains on high- flow nasal cannula, mildly tachycardic. WBC elevated at 13.3, sodium decreased from 132 down to 129, remainder of her labs are relatively unremarkable. Continue to wean supplemental oxygen. Further care per critical Care 06/05 patient seen at bedside, no acute events overnight. She remains on high- flow nasal cannula with BiPAP overnight and is still tachycardic. Heart rate ranging from 104 up to 113, WBC improved from 13.3 down to 11.1, sodium decreased from 120 down to 126, remainder of her labs are relatively unremarkable. We will continue to wean oxygen as able. 06/06 Patient seen at bedside, no acute events overnight. She remains on high- flow nasal cannula with BiPAP overnight and is still tachycardic. Heart rate ranging from 104 up to 122, WBC improved from 11.1 down to 10.6, sodium improved from 126 up to 129, remainder of her labs are relatively unremarkable. We will continue to wean oxygen as able. 06/07 patient seen at bedside, no acute events overnight. She is still on high- flow nasal cannula, RT advised to wean oxygen, currently saturating 100% on 30L. She is tachycardic, sodium decreased from 129 down to 123, likely secondary to Bactrim. Patient is asymptomatic, will continue with bactrim, if sodium continues to decrease consider a holiday from bactrim. 06/08 patient seen at bedside, no acute events overnight. She is still on high- flow nasal cannula, RT advised to wean oxygen, currently saturating 100% on 30L. She is tachycardic, sodium stable at 123, same as yesterday. Pending improvement in respiratory status 06/09 patient seen at bedside, he remains on high-flow nasal cannula, we will continue to wean as able, appreciate pulmonology assistance, tachycardic with heart rate ranging from 123 up to 130. She is still having low-grade fevers at 100.8. Sodium increased from 123 up to 130, remainder of her labs are relatively unremarkable. 06/10 patient is seen and examined at bedside, remains on high-flow oxygen, she feels mildly anxious, no chest pain. Still with a cough productive of white phlegm. Still tachycardic, heart rate 117-122. Patient is still spiking low- grade fever. Hemoglobin 10.9, hematocrit 30.5. Sodium remained low at 128, BUN and creatinine of 16 and 0.4. 06/11 patient is seen and examined at bedside, patient now on AVAPS, FiO2 100%, patient became restless last night, she had to be started on Precedex. During my visit she remains alert oriented x3, no chest pain. BP 120/48, she is saturating 100%. Hemoglobin 10 point, hematocrit 31.3. ABG shows persistent hypoxemia, with a PO2 of 69.4. Chest x-ray shows extensive infiltrates on the left which is stable to somewhat increased, there has been interval development of perihilar infiltrate on the right. Normal bilateral lower extremity venous Doppler ultrasound. Continue the patient on prednisone 20 mg p.o. daily, continue Bactrim two tablets p.o. t.i.d. as well as fluconazole 100 mg p.o. daily. 06/12 patient is seen and examined at bedside, intubated, on mechanical ventilation, per discussion with the RN, patient was in respiratory distress yesterday, decision made to intubate the patient. During my visit the patient is midazolam, fentanyl, patient paralyzed, also on Nimbex. She is in a prone position. On pressor support with phenylephrine. Also on Precedex. She is also on hydrocortisone 100 mg IV q.8 hours. Son at bedside, updated. ABG shows pH 7.38, pCO2 47, PO2 122, bicarb of 27.7. 06/13 patient is seen and examined at bedside, remains intubated, on mechanical ventilation, remains on midazolam, fentanyl, patient paralyzed, also on Nimbex. She is in a prone position. On BP pressor support with phenylephrine. Patient is peep of seven. ABG pH 7.34, PO2 72.3. Chest x-ray reviewed, increasing bilateral infiltrates, increasing pneumomediastinum. 06/14 patient is seen and examined at bedside, remains intubated, on mechanical ventilation, prone position, remains on midazolam, fentanyl, patient paralyzed, also on Nimbex. She is in a prone position. Off pressors. Patient is peep of seven. ABG pH 7.34, PO2 72.3. Chest x-ray shows extensive bilateral infiltrates unchanged, no pneumothorax. 06/15 patient is seen and examined at bedside, remains intubated, on mechanical ventilation, prone position, remains paralyzed, on Nimbex. Off pressors. Patient is peep of 10. ABG pH 7.34, PO2 72.3. Chest x-ray shows extensive bilateral infiltrates unchanged, no pneumothorax. Overall condition remains unchanged. No family at bedside. 06/16 patient is seen and examined at bedside, remains intubated, on mechanical ventilation, discussed with the RN, the patient has been placed on supine position. Patient remains on pressor support. Remains on sedation with midazolam and fentanyl BP 114/60, afebrile saturating 96% FiO2 100%, peep of 8. ABG today with pCO2 63, PO2 91.5. Chest x-ray with severe consultation both lungs, unchanged, interval development of pneumomediastinum, moderate to severe. Continue Solu-Medrol 80 mg IV q.8 hours, continue broad-spectrum antibiotics with meropenem 1 g IV q.8 hours, the patient remains on Bactrim. Continue g anciclovir. 2 patient seen at bedside, no acute events overnight. She remains intubated, paralyzed on FiO2 of 100% and PEEP of eight. Continue to try to wean towards extubation. Chest x-ray appears mildly improved from yesterday. She remains supine. Hemoglobin improved from 8.4 up to 8.6, platelets decreased from 121 down to 112, CO2 elevated at 41, same as yesterday, remainder of her labs are relatively unremarkable. Patient is still critical with poor prognosis continue further care per critical care team. 2 patient seen at bedside, no acute events overnight. She remains intubated and sedated, critical care weaning patient off paralyzing agents. She is still on FiO2 of 100% with PEEP of eight, PO2 on ABG 70.8 down from 80.5 yesterday demonstrating a worsening and her oxygenation within her blood at the same ventilator settings. PCO2 increased from 70 up to 75. Hemoglobin improved from 8.6 up to 9.0, platelets improved from 112 up to 127, CO2 increased from 41 up to 45, remainder of her labs are relatively unremarkable. 2 patient seen at bedside, no acute events overnight. She remains intubated and sedated, critical Care to continue trying to wean to extubation. Continue current care further recommendations per critical Care 06/20 patient is seen and examined at bedside, no acute events overnight, she remains intubated, on mechanical ventilation, off vasopressors, sedated with fentanyl and Versed, the patient on peep of 8, saturating 97%. REVIEW OF SYSTEMS 12 point review of systems negative unless noted in HPI PHYSICAL EXAM GENERAL APPEARANCE: Patient intubated, on mechanical ventilation. NEUROLOGICAL: Cranial nerves II-XII grossly intact. Motor is 5/5 in bilateral upper and lower extremities proximal to distal. No sensory deficits. HEENT: Face is symmetric. Pupils are equal and reactive. Extraocular movements are intact. NECK: Supple. No JVD. No thyromegaly. No submental, submandibular, pre- /postauricular, occipital or supraclavicular lymphadenopathy. CHEST: Normal chest expansion. No Telemetry. LUNGS: Bilateral rhonchi, no expiratory wheezing CARDIOVASCULAR: Regular. S1 and S2 normal. No appreciable rubs, murmurs or gallops. ABDOMEN: Soft, nontender, and nondistended. There is no rebound, voluntary guarding, or rigidity. : Deferred. No Souza. EXTREMITIES: Non-edematous and not cyanotic. No clubbing. Good capillary refill. SKIN: No skin breakdown. Vital Signs (last 8hr) Date Time Temp Pulse Resp B/P (MAP) Pulse Ox O2 Delivery O2 Flow Rate FiO2 06/20/24 11:29 94 Ventilator+ 90 06/20/24 11:28 95 06/20/24 11:00 86 22 117/61 (79) 94 06/20/24 10:50 83 28 06/20/24 10:50 90 06/20/24 10:45 83 28 117/61 (79) 95 06/20/24 10:30 81 28 118/64 (82) 96 06/20/24 10:15 85 28 114/62 (79) 96 06/20/24 10:00 87 27 124/67 (86) 96 06/20/24 09:45 89 29 126/69 (88) 96 128/74 (92) 06/20/24 09:40 92 95 06/20/24 09:30 90 25 134/74 (94) 95 06/20/24 09:30 95 2/6/25 09:15 95 28 154/85 (108) 96 06/20/24 09:00 96 Ventilator+ 95 06/20/24 09:00 93 29 129/70 (89) 96 95 06/20/24 08:45 95 25 127/69 (88) 96 06/20/24 08:30 97 28 126/68 (87) 95 06/20/24 08:15 100 22 141/75 (97) 95 06/20/24 08:00 99 26 132/70 (90) 95 100 147/81 (103) 06/20/24 07:45 98 23 137/70 (92) 94 06/20/24 07:30 96 29 136/71 (92) 95 134/80 (98) 06/20/24 07:30 100 06/20/24 07:30 96.8 06/20/24 07:15 95 28 137/71 (93) 96 06/20/24 07:10 94 28 06/20/24 07:00 91 28 132/69 (90) 97 100 06/20/24 06:55 94 95 06/20/24 06:30 81 19 121/64 (83) 98 06/20/24 05:46 82 7 119/64 (82) 95 131/74 (93) 06/20/24 05:30 83 14 124/67 (86) 97 06/20/24 04:57 100 06/20/24 04:30 83 28 113/60 (77) 98 06/20/24 04:21 98.4 06/20/24 04:00 98 Ventilator+ 100 06/20/24 04:00 85 28 116/64 (81) 98 LABS: Laboratory: Test 06/20/24 04:21 06/19/24 20:16 06/19/24 07:56 Range/Units White Blood Count 4.6 L 4.8-10.8 K/uL Red Blood Count 2.81 L 4.00-5.50 MIL/uL Hemoglobin 9.2 L 12.0-16.0 g/dL Hematocrit 27.4 L 36-48 % Mean Corpuscular Volume 97.5 79-99 fL Mean Corpuscular Hemoglobin 32.7 27.0-33.0 pg Mean Corpuscular Hemoglobin Concent 33.6 32.0-36.0 g/dL Red Cell Distribution Width 12.0 11.0-15.5 % Platelet Count 121 L 130-400 K/uL Mean Platelet Volume 10.7 H 7.5-10.5 fL Immature Granulocyte % (Auto) 1.7 H 0-1 % Neutrophils (%) (Auto) 94.0 H 40.0-77.0 % Lymphocytes (%) (Auto) 2.6 L 21.0-51.0 % Monocytes (%) (Auto) 1.5 L 3.0-13.0 % Eosinophils (%) (Auto) 0.0 0.0-8.0 % Basophils (%) (Auto) 0.2 0.0-5.0 % Neutrophils # (Auto) 4.3 1.8-7.7 K/uL Lymphocytes # (Auto) 0.1 L 1.0-4.8 K/uL Monocytes # (Auto) 0.1 0.1-1.0 K/uL Eosinophils # (Auto) 0.00 0.00-0.70 K/uL Basophils # (Auto) 0.01 0.00-0.20 K/uL Absolute Immature Granulocyte (auto 0.08 0-1 K/uL Nucleated Red Blood Cells 0.4 H 0.0-0.19 % Sodium Level 135 L 136-145 mmol/L Potassium Level 5.3 H 3.5-5.1 mmol/L Chloride Level 95 L 101-111 mmol/L Carbon Dioxide Level 42 *H 21-32 mmol/L Blood Urea Nitrogen 22 H 7-18 mg/dL Creatinine 0.4 L 0.5-1.0 mg/dL Glomerular Filtration Rate Calc 121 >90 mL/min Random Glucose 224 H 70-105 mg/dL Total Calcium 7.9 L 8.5-10.1 mg/dL Total Bilirubin 0.1 L 0.2-1.0 mg/dL Aspartate Amino Transf (AST/SGOT) 45 H 10-37 U/L Alanine Aminotransferase (ALT/SGPT) 84 H 12-78 U/L Alkaline Phosphatase 112 50-136 U/L Total Protein 4.8 L 6.0-8.3 g/dL Albumin 1.6 L 3.5-5.0 g/dL Whole Blood Glucose 245 H 70-110 MG/DL Blood Gas Specimen Type Arterial Arterial Blood pH 7.448 7.350-7.450 Arterial Blood Partial Pressure CO2 62 *H 32-45 mmHg Arterial Blood Partial Pressure O2 85.8 83.0-108.0 mmHg Arterial Blood HCO3 41.9 H 21.0-28.0 mmol/L Arterial Blood Oxygen Saturation 96.0 94.0-98.0 % Arterial Blood Base Excess 15.7 H -2.0-3.0 mmol/L Hemoglobin (Blood Gas) 9.6 L 12.0-16.0 g/dL Sodium (Blood Gas) 129 L 136-145 MMOL/L Bedside Potassium (Blood Gas) 5.2 H 3.4-4.5 MMOL/L Bedside Chloride (Blood Gas) 89 *L 98-107 MMOL/L Bedside Glucose (Blood Gas) 182 H 65-95 MG/DL Bedside Ionized Calcium (Blood Gas) 1.08 L 1.15-1.33 MMOL/L Bedside Lactic Acid (Blood Gas) 1.82 H 0.36-0.75 MMOL/L Blood Gas Temperature 37.0 35.5-37.0 CELSIUS Blood Gas Respiration Rate 28.0 min. Blood Gas Vent Mode AC ROOM AIR FiO2 100.0 % Blood Gas Tidal Volume 450 ml Blood Gas PEEP 5 cm H2O Blood Gas Specimen Comment HUI SHAH,RN Current Medications Medications (Trade) Dose Ordered Sig/Julita Route PRN Reason Start Time Stop Time Status Last Admin Dose Admin Acetaminophen (TYLenol 650MG ELIXIR) 650 mg Q6H PRN PO MILD PAIN (1-3) 06/04/24 08:30 07/04/24 08:29 06/10/24 20:07 650 MG Acetaminophen (TYLenol 650MG SUPPOSITORY) 650 mg Q6H PRN RC MILD PAIN (1-3) 05/23/24 20:30 06/22/24 20:29 Acetylcysteine (MUComyst 20% 4ML) 400mg = 2ml [id number] IH 06/02/24 00:00 06/05/24 15:52 DC 06/05/24 11:35 200 MG Albuterol (DUOneb) 1 udvial [id number] IH 05/24/24 00:00 06/10/24 10:28 DC 06/10/24 06:45 1 UDVIAL Alprazolam (XANax 0.5MG) 0.5 mg Q8H PRN PO ANXIETY 06/10/24 13:30 07/10/24 13:29 06/11/24 05:22 0.5 MG Artificial Tears (Artificial Tears) 1 DROP OR AD Q8H OU 06/11/24 14:30 07/11/24 14:29 06/20/24 05:37 1 DROP Azithromycin 250 ml @ 250 mls/hr Q24H IVPB 05/24/24 17:00 05/24/24 14:41 DC Azithromycin 250 ml @ 250 mls/hr Q24H STAT IVPB 05/23/24 17:17 05/24/24 14:41 DC 05/23/24 17:45 250 MLS/HR Benzocaine (Cepacol Sore Throat Lozenge) 1 each Q4H PRN MM SORE THROAT 06/08/24 10:00 07/08/24 09:59 06/09/24 07:44 1 EACH Bisacodyl (DulcoLAX) 10 mg DAILY PRN RC CONSTIPATION 06/08/24 14:00 07/08/24 13:59 06/19/24 11:41 10 MG Cadexomer Iodine (Iodosorb Gel 40gm) 1 APPL TO RIGHT FAC... DAILY TP 06/19/24 09:00 07/18/24 08:59 06/20/24 09:13 1 APPL Cadexomer Iodine (Iodosorb Gel 40gm) 1 appl DAILY TP 06/18/24 09:00 06/19/24 07:23 DC 06/18/24 14:09 1 APPL Cefepime HCl (MAXipime 2 gm vial) 2 gm Q12H IVPB 05/24/24 15:00 06/03/24 14:59 DC 06/03/24 03:18 2 GM Ceftriaxone Sodium (ROCEphine 1G INJ) 1 gm Q24H IVPB 05/24/24 17:30 05/24/24 14:41 DC Chlorhexidine Gluconate (Peridex) 15 ml Q6H MM 06/07/24 17:00 06/11/24 14:27 DC 06/10/24 12:22 15 ML Chlorhexidine Gluconate (Peridex) 15 ml Q8H MM 06/11/24 14:30 06/25/24 14:29 06/20/24 05:35 15 ML Cisatracurium Besylate (Nimbex) ONCE IVP 06/11/24 14:30 06/11/24 15:57 DC Cisatracurium Besylate 100 mg/ Sodium Chloride 100 ml @ 0 mls/hr PROTOCOL IV 06/11/24 23:30 07/11/24 23:29 06/17/24 09:27 14.94 MLS/HR Clotrimazole (Mycelex) 10 mg TID MM 06/04/24 21:00 06/14/24 08:39 DC 06/13/24 20:28 10 MG Dexmedetomidine/ Sodium Chloride (PRECEdex 400MCG/ 100ML-NS) 400 mcg PROTOCOL IV 06/10/24 19:30 07/10/24 19:29 06/12/24 06:32 400 MCG Dobutamine HCl/ Dextrose 250 ml @ 0 mls/hr PROTOCOL IV 06/12/24 16:30 06/12/24 16:53 DC Doxycycline Hyclate 250 ml @ 125 mls/hr Q12H IV 05/24/24 16:30 06/03/24 16:29 DC 06/03/24 04:23 125 MLS/HR Enoxaparin Sodium (Lovenox 80mg) 40 mg DAILY SQ 06/15/24 09:00 06/15/24 09:30 DC Enoxaparin Sodium (Lovenox 80mg) 80 mg BID SQ 06/11/24 09:00 06/14/24 23:28 DC 06/14/24 20:33 80 MG Enoxaparin Sodium (Lovenox) 40 mg DAILY SQ 06/15/24 09:30 07/15/24 09:29 06/20/24 09:12 40 MG Enoxaparin Sodium (Lovenox) 40 mg Q24H SQ 05/23/24 21:00 06/11/24 04:36 DC 06/10/24 20:07 40 MG Famotidine (Pepcid 20mg Vial) 20 mg DAILY IV 05/24/24 09:00 06/14/24 08:39 DC 06/13/24 08:15 20 MG Fentanyl Citrate 2500 mcg/Sodium Chloride 250 ml @ 0 mls/hr AD PRN IV TITRATE 06/17/24 05:30 06/17/24 05:18 DC Fentanyl/Sodium Chloride 250 ml @ 0.1 mls/hr PROTOCOL IV 06/12/24 00:00 06/17/24 00:00 DC 06/16/24 17:36 0.1 MLS/HR Fentanyl/Sodium Chloride 250 ml @ 0 mls/hr AD PRN IV ICU SEDATION 06/17/24 05:30 06/22/24 05:29 06/20/24 10:38 30 MLS/HR Fluconazole (DiFLUCan 100 mg TAB) 200 mg DAILY PO 06/05/24 09:00 07/05/24 08:59 06/20/24 09:12 200 MG Fluconazole/ Sodium Chloride 100 ml @ 100 mls/hr DAILY IV 05/26/24 09:00 05/27/24 15:57 DC 05/27/24 09:07 100 MLS/HR Furosemide (LASix 20MG VIAL) 20 mg DAILY IV 05/31/24 09:00 06/07/24 13:18 DC 06/03/24 08:38 20 MG Furosemide (LASix 20MG VIAL) 20 mg DAILY IV 06/17/24 10:00 06/17/24 12:13 DC 06/17/24 09:46 20 MG Furosemide (LASix 20MG VIAL) 20 mg Q12H IV 06/11/24 11:00 06/13/24 09:31 DC 06/12/24 21:54 20 MG Furosemide (LASix 20MG VIAL) 20 mg Q12H IV 06/17/24 22:00 06/18/24 10:01 DC 06/18/24 09:44 20 MG Furosemide (LASix 20MG VIAL) 20 mg Q8H IV 06/13/24 09:30 06/16/24 11:00 DC 06/16/24 08:44 20 MG Furosemide (LASix 20MG VIAL) 20 mg Q8H IV 06/19/24 17:00 07/19/24 16:59 06/20/24 09:12 20 MG Ganciclovir Sodium 430 mg/ Sodium Chloride 100 ml @ 100 mls/hr Q12H IV 06/13/24 09:00 07/13/24 08:59 06/20/24 09:23 100 MLS/HR Ganciclovir Sodium 500 mg/ Sodium Chloride 100 ml @ 100 mls/hr Q12H IV 06/11/24 18:00 06/11/24 15:48 DC Ganciclovir Sodium (Ganciclovir Sodium) 500 mg Q12H IV 06/12/24 17:00 06/13/24 08:35 DC Guaifenesin/ Dextromethorphan (RobiTUSSin DM 200/20MG 10ML) 10 ml Q4H PRN PO COUGH 05/23/24 20:30 06/22/24 20:29 06/10/24 20:07 10 ML Hydrocortisone Sodium Succinate (Solu-corTEF 100MG) 100 mg Q8H IV 06/11/24 05:00 06/14/24 08:39 DC 06/14/24 06:13 100 MG Hydroxyzine HCl (ATArax 25MG TAB) 25 mg TID PRN PO ITCHING 06/10/24 14:00 07/10/24 13:59 06/11/24 05:22 25 MG Insulin Human Regular (humuLIN R 100 UNIT/ML 3ML) INSULIN SLIDING SCAL... ACHS SQ 06/19/24 16:30 07/19/24 16:29 06/19/24 21:24 4 UNIT Ipratropium Forest (AtrovENT UD) 0.5 MG [id number] IH 06/10/24 14:00 07/10/24 13:59 06/20/24 10:50 0.5 MG Lactated Ringer's (Lactated Ringers 1000ml) 500 ml ONCE IV 06/02/24 20:00 06/02/24 19:54 DC Levofloxacin/ Dextrose 100 ml @ 100 mls/hr Q24H IV 05/24/24 15:00 05/24/24 16:16 DC Magnesium Sulfate 50 ml @ 0 mls/hr PROTOCOL PRN IV hypomagnesemia 05/28/24 08:00 06/27/24 07:59 06/11/24 05:26 50 MLS/HR Meropenem (Merrem 1gm) 1 gm Q8H IVPB 06/13/24 15:00 06/18/24 21:57 DC 06/18/24 15:34 1 GM Meropenem (Merrem 1gm) 1 gm Q8H IVPB 06/19/24 01:00 06/21/24 00:59 06/20/24 09:11 1 GM Meropenem (Merrem) 1 gm Q8H IVPB 06/11/24 15:00 06/13/24 11:52 DC 06/13/24 08:14 1 GM Meropenem 1 gm/ Sodium Chloride 100 ml @ 33.333 mls/ hr Q8H IV 06/11/24 14:30 06/11/24 14:28 DC Methylprednisolone Sodium Succinate (Solu-medROL 40MG) 20 mg Q12H IVP 06/05/24 07:00 06/09/24 09:13 DC 06/09/24 07:25 20 MG Methylprednisolone Sodium Succinate (Solu-medROL 40MG) 40 mg Q12H IVP 05/28/24 18:00 05/29/24 16:45 DC 05/29/24 05:32 40 MG Methylprednisolone Sodium Succinate (Solu-medROL 40MG) 40 mg Q6H IVP 05/29/24 16:30 06/04/24 16:44 DC 06/04/24 11:13 40 MG Methylprednisolone Sodium Succinate (Solu-medROL 40MG) 40 mg Q6H IVP 06/04/24 18:00 06/05/24 00:24 DC 06/04/24 23:48 40 MG Methylprednisolone Sodium Succinate (Solu-medROL 40MG) 40 mg Q8H IVP 05/24/24 01:00 05/25/24 21:51 DC 05/25/24 17:28 40 MG Methylprednisolone Sodium Succinate (Solu-medROL 40MG) 60 mg Q6H IVP 05/25/24 22:00 05/28/24 02:25 DC 05/27/24 23:55 60 MG Methylprednisolone Sodium Succinate (Solu-medROL 40MG) 60 mg Q6H IVP 05/28/24 06:00 05/28/24 08:27 DC 05/28/24 06:47 60 MG Methylprednisolone Sodium Succinate (Solu-medROL 40MG) 60 mg Q6H IVP 06/11/24 02:30 06/11/24 04:23 DC 06/11/24 02:46 60 MG Methylprednisolone Sodium Succinate (Solu-medROL 40MG) 80 mg Q8H IVP 06/14/24 17:00 07/14/24 08:59 06/20/24 09:12 80 MG Methylprednisolone Sodium Succinate (Solu-medROL 125MG) 80 mg Q8H IVP 06/14/24 09:00 06/14/24 14:53 DC 06/14/24 08:48 80 MG Metronidazole/ Sodium Chloride (flaGYL) 500 mg Q8H IV 05/25/24 22:00 05/25/24 21:56 DC Midazolam HCl 50 ml @ 0 mls/hr AD PRN IV TITRATE 06/12/24 01:30 06/12/24 08:30 DC 06/12/24 02:30 10 MLS/HR Midazolam HCl 100 ml @ 0 mls/hr AD PRN IV TITRATE 06/12/24 09:00 07/12/24 01:29 06/20/24 10:36 10 MLS/HR Morphine Sulfate (morPHINE 4MG SYG) 4 mg Q4H PRN IM RESPIRATORY SYMPTOMS 06/11/24 03:30 06/14/24 23:33 DC 06/11/24 03:27 4 MG Ondansetron HCl (zoFRAN 4MG INJ) 4 mg Q6H PRN IV NAUSEA/VOMITING 05/23/24 20:30 06/22/24 20:29 Pantoprazole Sodium (PROTonix 40MG INJ) 40 mg BID IVP 06/12/24 21:00 07/12/24 20:59 06/20/24 09:12 40 MG Pharmacy Profile Note (Lace Assessment) 1 each AD MISC 06/17/24 16:30 06/17/24 16:27 DC Pharmacy Profile Note (Pharmacy Communication) 1 each ONCE MISC 06/11/24 14:30 06/11/24 15:53 DC Pharmacy Profile Note (Pharmacy Communication) 1 each ONCE MISC 06/11/24 20:30 06/11/24 20:14 DC Pharmacy Profile Note (Pharmacy Communication) 1 each ONCE MISC 06/12/24 17:00 06/12/24 17:07 DC Phenylephrine HCl 10 mg/Sodium Chloride 251 ml @ 0 mls/hr AD PRN IV DIRECTED 06/11/24 03:00 06/12/24 18:12 DC 06/12/24 14:10 47 MLS/HR Phenylephrine HCl 50 mg/Sodium Chloride 250 ml @ 0 mls/hr PROTOCOL PRN IV PROTOCOL 06/12/24 18:00 07/12/24 17:59 06/13/24 08:57 12.45 MLS/HR Potassium Chloride 100 ml @ 100 mls/hr AD PRN IV POTASSIUM PROTOCOL 05/28/24 08:00 06/27/24 07:59 Potassium Chloride (K-Dur/Klor-Con 20meq) 20 meq AD PRN PO POTASSIUM PROTOCOL 05/28/24 08:00 06/27/24 07:59 Potassium Chloride (KCl 10% Elixir 20meq/15ml) 20 meq AD PRN PO POTASSIUM PROTOCOL 05/28/24 08:00 06/27/24 07:59 Prednisone (deltaSONE/ oraSONE 20MG TAB) 20 mg DAILY PO 06/10/24 09:00 06/14/24 08:39 DC 06/13/24 08:15 20 MG Rocuronium Forest (ZemuRON) 10 mg Q1H PRN IV RESP DISTRESS/VENT DISYNCHRONY 06/11/24 20:30 06/11/24 23:29 DC 06/11/24 20:33 10 MG Rocuronium [place] (ZemuRON) 50 mg Q4H PRN IV VENT DYSSYNCHRONY 06/17/24 16:30 07/17/24 16:29 06/20/24 11:40 50 MG Sodium Chloride 500 ml @ 500 mls/hr Q1H IV 06/02/24 20:00 06/02/24 20:59 DC 06/02/24 21:34 500 MLS/HR Sodium Chloride 1,000 ml @ 75 mls/hr [id number] IV 06/07/24 13:30 06/10/24 17:02 DC 06/10/24 09:05 75 MLS/HR Sodium Chloride (Sodium Chloride) 1,000 mg BIDAC PO 06/07/24 16:30 06/09/24 07:28 DC 06/08/24 16:58 1,000 MG Sodium Chloride (Sodium Chloride) 1,000 mg BIDAC PO 06/09/24 07:30 06/12/24 16:35 DC 06/12/24 12:30 1,000 MG Sodium Chloride (Sodium Chloride) 1,000 mg Q12H PO 06/12/24 21:00 07/09/24 07:29 06/20/24 09:12 1,000 MG Sodium Zirconium Cyclosilicate (Lokelma) 5 gm DAILY10 PO 06/08/24 10:30 06/10/24 10:29 DC 06/08/24 10:50 5 GM Trimethoprim/ Sulfamethoxazole (BactRIM DS) 1 tab BID PO 05/26/24 21:00 05/29/24 16:18 DC 05/29/24 08:07 1 TAB Trimethoprim/ Sulfamethoxazole (BactRIM DS) 2 tab TID PO 05/29/24 16:30 06/05/24 20:59 DC 06/05/24 14:55 2 TAB Trimethoprim/ Sulfamethoxazole (BactRIM DS) 2 tab TID PO 06/06/24 09:30 06/11/24 21:54 DC 06/10/24 13:58 2 TAB Trimethoprim/ Sulfamethoxazole 320 mg/Dextrose 500 ml @ 333.333 mls/hr Q8H IV 06/19/24 00:30 06/23/24 00:29 06/20/24 09:23 333.333 MLS/HR Trimethoprim/ Sulfamethoxazole 320 mg/Dextrose 500 ml @ 500 mls/hr Q8H IV 06/11/24 22:30 06/12/24 16:35 DC 06/12/24 06:39 500 MLS/HR Trimethoprim/ Sulfamethoxazole 320 mg/Dextrose 500 ml @ 500 mls/hr Q8H IV 06/12/24 18:00 06/13/24 11:13 DC 06/13/24 05:30 500 MLS/HR Trimethoprim/ Sulfamethoxazole 320 mg/Dextrose 500 ml @ 500 mls/hr Q8H IV 06/13/24 13:30 06/18/24 21:55 DC 06/18/24 14:08 500 MLS/HR Trimethoprim/ Sulfamethoxazole 320 mg/Dextrose 500 ml @ 500 mls/hr Q8H IV 06/18/24 11:59 06/19/24 00:56 DC 06/18/24 11:59 500 MLS/HR Valganciclovir (ValGANCIClovir HCL) 900 mg BID PO 06/11/24 21:00 06/13/24 08:37 DC Wound Care/ Dressing Products (Venelex Ointment) 1 VOLODYMYR AD TID TP 06/14/24 14:00 07/14/24 13:59 06/20/24 09:13 1 GM DIAGNOSTICS / RADIOLOGY: [ ] Exam Type: CHEST 1VW Clinical Information: Intubated/PNA Comparison: None Findings: Pulmonary pattern is as before. No worrisome interval changes have taken place. Impression: Stable exam. ASSESSMENT: Acute hypoxemic respiratory failure, POA Bilateral lower lobe bacterial pneumonia + MRSA POA, +Azra Suspected PCP PNA based on CT findings vs viral/Atypical PNA . 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 Continue fentanyl Wean off paralytic per critical care Continue to follow critical care input recommendation Continue the patient on Bactrim, meropenem, fluconazole. Continue gancyclovir Continue furosemide 20mg BID IV q.8 hours. Continue methylprednisolone 80mg TID IV Continue to follow infectious disease input and recommendation Continue to follow chest x-ray Continue to follow ABG Continue bronchodilators per respiratory therapist Replace electrolytes IV per protocol A.m. labs GI and DVT prophylaxis. Further orders to follow based on the above results Disposition: Remains admitted to the ICU, pending improvement clinical condition. Prognosis is poor guarded. Total ICU time spent greater than 30 minutes. GAIL WALDRON MD Jun 20, 2024 11:48
[2024-06-20] MEDS: LACTULOSE 20 GM/30 ML UDCUP PO ONE (14:10)
--- NOTE | 2024-06-20 14:11 | NUR ---
NO BM SINCE 06/11/24 MEL MADE AWARE & RECEIVED ORDERS FOR / ADMINISTERED LACTULOSE VIA OG TUBE AT THIS TIME
[2024-06-20] MEDS: INSULIN humuLIN R 100 UNIT/ML 3ML SQ SCH (17:02)
[2024-06-20 17:22] LABS: ABG BASE EXCESS 12.2 mmol/L (-2.0-3.0); ABG HCO3 39.2 mmol/L (21.0-28.0); ABG OXYGEN SATURATION 92.1 % (94.0-98.0); ABG PCO2 65 mmHg (32-45); ABG PH 7.396 (7.350-7.450); CARBON MONOXIDE 0.4 % (0.5-1.5); DEVICE COMMENT ALINE; HHb 7.8; PO2, ARTERIAL BG 71.5 mmHg (83.0-108.0); VENT MODE, BG AC (ROOM AIR)
--- NOTE | 2024-06-20 17:55 | NUR ---
HR 133 DR MALIK MADE AWARE OF PT BEING TACHYCARDIC, POST BEING REPOSITIONED. MADE AWARE OF PT BEING AFEBRILE, ON SEDATION: FENTANYL 300 MCG/HR, VERSED 10 MG /HR, AND ROCURONIUM PUSH ADMINISTERED FOR RR 33. NO TELEPHONE ORDERS RECEIVED AT THIS TIME. Addendum: 06/20/24 at 1813 by WENDY VÁZQUEZ RN RN Amended: Links added.
--- NOTE | 2024-06-20 21:28 | PN ---
[facility] PROGRESS NOTE Date Patient Seen: Jun 20, 2024 Time of Visit: 21:23 Supervising Physician: Dr. Garcia Primary Care Physician: Stu Foss MD Outpatient Specialists: Inpatient Consults: Pulmonology PROBLEM LIST: Severe ARDS Acute hypoxemic respiratory failure s/p intubation 06/11/24 requiring proning Bilateral lower lobe bacterial pneumonia + MRSA POA, +Azra Confirmed PCP PNA per Ag (serology), POA Pneumomediastinum on x-ray 06/12/24 Disseminated herpes virus infection Elevated DDIMER r/o PE & DVT New HIV/AIDS positive POA Hyponatremia and hyperkalemia, suspected Bactrim induced Normocytic anemia, not POA Neutrophilia, POA Hyperglycemia, POA Obesity BMI of 32.3 Former smoker Fatty liver, POA Moderate hypoalbuminemia POA Previous COVID-19 infection INTERVAL HISTORY: Day # 6 post Intubation. Patient's condition is critical. Patient has a grim prognosis. This morning she was assessed in room 208 in the ICU. She tolerated being supine with O2 sats above 88% since turned yesterday. Continues on sedation and paralyzed with fentanyl at 200 mcg per hour, Versed 10 milligrams/hour, and Nimbex at 2 micrograms/kilogram per minute. Current vital signs blood pressure of 127/66 heart rate in the 80s respiratory rate of 28 on the vent saturating 93% with a FiO2 of 100% and afebrile. Latest ABGs show a pH of 7.37 pCO2 of 70 PO2 of 80 bicarb of 39.7 with vent settings of assist control volume control tidal volume of 425 respiratory rate of 28 FiO2 of 100% and PEEP of 8. PF ratio 80.5. Urine output 1.1 L with a balance of + 2.7 L. on chest x- ray findings consistent with severe persistent bilateral pulmonary opacification. ET tube in correct position. Resolution of the previously seen pneumomediastinum. No pneumothorax.Will continue to follow ABX per ID. There Is No Family At The Bedside At Time Of My Visit. 06/18/2024: At the time of my evaluation, the patient was lying in bed. There was no family members present at the bedside. She remains in the ICU. She is currently on sedation with fentanyl and Versed. RASS score of -5. The patient was taken off Nimbex and is currently on rocuronium IV pushes. She is intubated and mechanically vented, day #7, ACVC FiO2 100%. She also remains on Solu- Medrol 80 mg q.8 hours. Chest x-ray today showed stable examination without any acute intrapulmonary changes. On the monitor, the patient remains hemodynamically stable. Patient remains on feeding through a OGT. Staff nurse reports no residuals, no nausea, vomiting or diarrhea. I and O shows a net balance of 1273.9. The patient continues on antibiotic/antiviral/antifungal therapy with Merrem/Bactrim/ganciclovir and Diflucan. No other complaint. 06/19/2024: At the time of my evaluation, the patient is lying in bed. The staff nurses present at the bedside , no family members. She remains sedated on fentanyl and Versed, currently RASS score of -5. The patient remains intubated and mechanically vented. ACVC rate of 28, TV 450, peep of 8 and FiO2 100%. Chest x-ray showed worsening pulmonary congestion and infiltrates. On the monitor, the patient is hemodynamically stable and is currently not on pressor therapy. She is receiving nutritional support via OGT with Vital HP and no report of nausea, vomiting or diarrhea. The patient remains with Souza catheter in place dark yellow urine. Net balance on I's and O's of 496.6. On labs, the was a slight increase of potassium to 5.6, CO2 of 43 and a BUN of 23. There is no new microbiology data for review. The patient continues on Merrem, ganciclovir, Bactrim and Diflucan guided by the ID specialist. No acute events noted overnight. No other complaint. 06/20/2024: At the time of my evaluation, the patient was lying in bed. She continues intubated and on ventilator support. There was no chest x-ray for review today. On vital signs, there was tachycardia and tachypnea, she was normotensive. The patient continues feeding via OGT with Vital HP. There was no nausea, vomiting or diarrhea. Patient continues with Souza catheter in place and has a net balance of 695.0. On labs today, of concern, there was low- sodium of 135, potassium of 5.3 , chloride of 95, CO2 of 42. There was no his tory for review today. No other complaint. REVIEW OF SYSTEMS: Unable to obtain ROS from patient due to patient's medical condition. PHYSICAL EXAM: GENERAL: Sedated and intubated, currently SUPINE HEENT: Sclera non icteric, dry scabs and sores to mucosa, sore to rt cheek NECK: short neck no JVD, trachea midline LUNGS: diminished to bilateral breath sounds no wheezing. HEART: Regular rate and rhythm. Normal S1 and S2, without murmurs ABD: Abdomen soft, nontender. Bowel sounds present EXT: No clubbing cyanosis or edema, sore to sacral area, NEURO: Intubated sedated and paralyzed. Vital Signs (last 8hr) Date Time Temp Pulse Resp B/P (MAP) Pulse Ox O2 Delivery O2 Flow Rate FiO2 06/20/24 18:41 130 30 06/20/24 18:36 130 90 06/20/24 17:50 133 33 88 90 06/20/24 17:45 132 30 166/88 (114) 88 170/98 (122) 06/20/24 17:30 116 28 147/79 (101) 89 06/20/24 17:15 114 28 156/84 (108) 94 06/20/24 17:00 112 28 138/71 (93) 92 06/20/24 16:45 112 28 130/69 (89) 93 06/20/24 16:30 111 28 132/69 (90) 93 06/20/24 16:15 112 28 137/72 (93) 92 06/20/24 16:12 90 06/20/24 16:07 97.0 06/20/24 16:00 110 28 132/69 (90) 93 90 06/20/24 15:45 108 28 139/71 (93) 94 06/20/24 15:30 93 Ventilator+ 90 06/20/24 15:30 109 28 123/64 (83) 93 06/20/24 15:28 90 06/20/24 15:15 107 28 129/68 (88) 93 06/20/24 15:00 106 28 129/67 (87) 93 90 06/20/24 14:45 102 28 132/68 (89) 93 06/20/24 14:43 102 90 06/20/24 14:32 102 28 06/20/24 14:30 102 28 129/67 (87) 96 06/20/24 14:15 106 28 141/71 (94) 94 06/20/24 14:00 104 28 129/66 (87) 93 06/20/24 13:45 104 28 131/66 (87) 93 151/81 (104) 06/20/24 13:30 103 28 127/65 (85) 94 LABS: Hematology Labs: Test 06/20/24 04:21 Range/Units White Blood Count 4.6 L 4.8-10.8 K/uL Red Blood Count 2.81 L 4.00-5.50 MIL/uL Hemoglobin 9.2 L 12.0-16.0 g/dL Hematocrit 27.4 L 36-48 % Mean Corpuscular Volume 97.5 79-99 fL Mean Corpuscular Hemoglobin 32.7 27.0-33.0 pg Mean Corpuscular Hemoglobin Concent 33.6 32.0-36.0 g/dL Red Cell Distribution Width 12.0 11.0-15.5 % Platelet Count 121 L 130-400 K/uL Mean Platelet Volume 10.7 H 7.5-10.5 fL Immature Granulocyte % (Auto) 1.7 H 0-1 % Neutrophils (%) (Auto) 94.0 H 40.0-77.0 % Lymphocytes (%) (Auto) 2.6 L 21.0-51.0 % Monocytes (%) (Auto) 1.5 L 3.0-13.0 % Eosinophils (%) (Auto) 0.0 0.0-8.0 % Basophils (%) (Auto) 0.2 0.0-5.0 % Neutrophils # (Auto) 4.3 1.8-7.7 K/uL Lymphocytes # (Auto) 0.1 L 1.0-4.8 K/uL Monocytes # (Auto) 0.1 0.1-1.0 K/uL Eosinophils # (Auto) 0.00 0.00-0.70 K/uL Basophils # (Auto) 0.01 0.00-0.20 K/uL Absolute Immature Granulocyte (auto 0.08 0-1 K/uL Nucleated Red Blood Cells 0.4 H 0.0-0.19 % Chemistry Labs: Test 06/20/24 16:39 06/20/24 12:00 06/20/24 04:21 Range/Units Whole Blood Glucose 203 H 70-110 MG/DL Bedside Glucose Comment Notified Nurse Sodium Level 135 L 136-145 mmol/L Potassium Level 5.3 H 3.5-5.1 mmol/L Chloride Level 95 L 101-111 mmol/L Carbon Dioxide Level 42 *H 21-32 mmol/L Blood Urea Nitrogen 22 H 7-18 mg/dL Creatinine 0.4 L 0.5-1.0 mg/dL Glomerular Filtration Rate Calc 121 >90 mL/min Random Glucose 224 H 70-105 mg/dL Total Calcium 7.9 L 8.5-10.1 mg/dL Total Bilirubin 0.1 L 0.2-1.0 mg/dL Aspartate Amino Transf (AST/SGOT) 45 H 10-37 U/L Alanine Aminotransferase (ALT/SGPT) 84 H 12-78 U/L Alkaline Phosphatase 112 50-136 U/L Total Protein 4.8 L 6.0-8.3 g/dL Albumin 1.6 L 3.5-5.0 g/dL DIAGNOSTICS / RADIOLOGY RESULTS: [ ] PLAN Continue sedation with fentanyl, versed wean off Nimbex gtt rocuronium pushes as needed for vent dyssynchrony manage vent per abg maintain plateu pressure of < 30 Continue steroids Continue Atrovent q.4 hours. ABX per ID Son is POA 06/18/2024: For now, we are going to continue current management for the patient. We are going to continue with the mechanical ventilator support and we will adjust to maintain optimal ventilation and oxygenation per ABGs. We will continue with rocuronium pushes as needed. We will continue with steroid dose as ordered and we will follow up with serial chest x-ray examination. She remains hemodynamically stable and is not requiring any pressor therapy. We will continue with nutritional support via the NGT and we will continue monitoring for any high residuals, nausea, vomiting or diarrhea events. We will continue monitoring the I's and O's. The patient will continue on antibiotic/antiviral/antifungal therapy as ordered and we will follow the guidance of the Infectious Disease team. We will monitor the patient's progress and response to management. Her condition remains critical and prognosis is poor. We will continue to provide general supportive care, GI and DVT prophylaxis. Further orders per attending MD and hospital course. 06/19/2024: For now, we are going to continue current management for the patient. She will remain mechanically vented for now. Currently, not a candidate for weaning trials. Considering the worsening findings on chest x- ray, I am going to request a CT of the chest without contrast. We will continue to monitor her vital signs parameters and treat accordingly. She will continue on nutritional support via the OGT and we will monitor for nausea, vomiting or diarrhea. We will follow the input of the treating specialist. I am going to request a repeat potassium level and we will correct as necessary. We will monitor the patient's progress and response to management. The patients c ondition is critical and her prognosis is grim. We will continue to provide general supportive care, GI and DVT prophylaxis. Further orders per attending MD and hospital course. 06/20/2024: For now, we are going to continue current management for the patient. Patient will remain on mechanical ventilator support. Because of the elevated peak pressures, we will adjust vent settings and repeat ABG within 1 hour. We will continue to monitor the vital signs and manage as necessary. We will monitor for any arrhythmias or other cardiac events. The patient will continue to feed via the OGT. We will monitor the urinary output and bowel activity. The patient will continue on antibiotic/antifungal/antiviral therapy as ordered by the Infectious Disease specialist and we will follow up his recommendation. We will repeat surveillance labs in the morning. We will monitor the patient's progress and response to management. We will continue to provide general supportive care, GI and DVT prophylaxis. Further orders per attending MD and hospital course. NEURO: Minimize central acting medications as possible. Fall Precautions. Well lighted room through the day and minimize interruptions through the night to prevent acute delirium. PULMONARY: Supplemental 02 as needed Titrate Fio2 to keep Spo2 > or = 90% DuoNebs and CPT as needed IS hourly while awake for pulmonary hygiene Out of bed to chair as tolerated CARDIOVASCULAR: Follow hemodynamics. Titrate vasopressor to keep MAP >65 or systolic blood pressure >95mmHg Telemetry LINES: CVC RT IJ Arterial line ET tube' FC OG tube GI & NUTRITION: Continue nutritional support Aspirations precautions Prokinetic agents and laxatives as needed KIDNEYS & ELECTROLYTES: Strict monitoring of intake and output Daily weights Avoid nephrotoxic agents Monitor electrolytes and replace as needed Goal urine output of 30mL/hr or 0.5mL/kg/hr ENDOCRINE: Maintain blood glucose between 100-180 at all times. Insulin sliding scale for blood glucose management INFECTIOUS DISEASE: Trend temperature. Clarke-culture if febrile. Sputum culture from 05/23/24 positive for MRSA, Betty albicans Pneumocystis carinii antigen positive Panculture: 06/02/24 Blood cultures Urine cultures Respiratory culture Antibiotics: Bactrim DS Fluconazole Valganciclovir Meropenem HEMATOLOGY & COAGULATION: Monitor H&H. Keep Hgb > 7 Transfuse 1 unit of PRBC for Hgb < 7 Transfuse 1 pack of platelets of platelets < 20, 000 Watch for any signs and symptoms of bleeding SKIN: Pressure ulcer prevention per facility protocol Rehab: PT/OT Prophylaxis: GI: Pepcid DVT: Lovenox Code Status: Full Resuscitation Disposition: ICU Other: Critical care time I personally spent 45 minutes of critical care time in treatment of this patient. This includes patient management, time at bedside, time reviewing tests, labs, appropriate images and studies, documentation, and patient care coordination. This time excludes separately billable procedures. DAYRON RUBIN NP Jun 20, 2024 21:28
--- NOTE | 2024-06-20 21:43 | PN ---
INFECTIOUS DISEASE PROGRESS NOTE Date of Service: Jun 20, 2024 SUBJECTIVE: This is a 49-year-old female patient who was admitted with chief complaint of shortness of breaths. A chest x-ray done on admission showed left lower lung pneumoniae. A CT chest showed bilateral pulmonary infiltrates but no evidence of PE. 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 Patient was seen and examined at bedside in the ICU room 208. Patient continues intubated and on sedation. Patient is afebrile, temperature is 98.4 and a WBC of 4.6. Continues on Meropenem, Bactrim IV, ganciclovir IV and fluconazole p.o. Continues on NG tube feedings. We will continue to follow patient's care. PHYSICAL EXAM EYES: Anicteric. Pupils equal and reactive. HENT: No oral thrush seen, moist Oral mucosa. NG tube. Oropharyngeal lesions. NECK: Supple, no JVD or thyromegaly. RESPIRATORY: Mechanical ventilation.. CARDIOVASCULAR: S1, S2 regular. No murmur heard. ABDOMEN: Soft, non tender, bowel sounds present, no organomegaly. CENTRAL NERVOUS SYSTEM: Intubated. SKIN: No rashes, no swelling. LYMPHATICS: No peripheral lymphadenopathy. MUSCULOSKELETAL: No joint swelling, erythema or tenderness. EXTREMITIES: No cyanosis or clubbing. BACK: No deformity, no pressure ulcer. GENITOURINARY: No dysuria or hematuria. Souza catheter. Vital Sign (Last 12 Hours) 06/20/24 06/20/24 06/20/24 06/20/24 09:45 10:00 10:15 10:30 Pulse 89 87 85 81 Resp 29 27 28 28 B/P (MAP) 126/69 (88) 124/67 (86) 114/62 (79) 118/64 (82) 128/74 (92) Pulse Ox 96 96 96 96 06/20/24 06/20/24 06/20/24 06/20/24 10:45 10:50 10:50 11:00 Pulse 83 83 86 Resp 28 28 22 B/P (MAP) 117/61 (79) 117/61 (79) Pulse Ox 95 94 FiO2 90 06/20/24 06/20/24 06/20/24 06/20/24 11:15 11:28 11:29 11:30 Pulse 92 104 Resp 30 35 B/P (MAP) 126/67 (86) 133/69 (90) Pulse Ox 91 94 94 O2 Delivery Ventilator+ FiO2 95 90 06/20/24 06/20/24 06/20/24 06/20/24 11:30 11:40 11:45 12:00 Temp 97.3 Pulse 105 104 Resp 28 B/P (MAP) 150/76 (100) 150/75 (100) 142/85 (104) Pulse Ox 98 98 06/20/24 06/20/24 06/20/24 06/20/24 12:10 12:14 12:15 12:30 Pulse 102 104 103 B/P (MAP) 144/72 (96) 134/67 (89) Pulse Ox 97 97 FiO2 90 90 06/20/24 06/20/24 06/20/24 06/20/24 12:45 13:00 13:15 13:30 Pulse 103 103 104 103 B/P (MAP) 128/64 (85) 126/64 (84) 131/66 (87) 127/65 (85) Pulse Ox 96 96 95 94 06/20/24 06/20/24 06/20/24 06/20/24 13:45 14:00 14:15 14:30 Pulse 104 104 106 102 Resp B/P (MAP) 131/66 (87) 129/66 (87) 141/71 (94) 129/67 (87) 151/81 (104) Pulse Ox 93 93 94 96 06/20/24 06/20/24 06/20/24 06/20/24 14:32 14:43 14:45 15:00 Pulse 102 102 102 106 B/P (MAP) 132/68 (89) 129/67 (87) Pulse Ox 93 93 FiO2 90 90 06/20/24 06/20/24 06/20/24 06/20/24 15:15 15:28 15:30 15:30 Pulse 107 109 B/P (MAP) 129/68 (88) 123/64 (83) Pulse Ox 93 93 93 O2 Delivery Ventilator+ FiO2 90 90 06/20/24 06/20/24 06/20/24 06/20/24 15:45 16:00 16:07 16:12 Temp 97.0 Pulse 108 110 B/P (MAP) 139/71 (93) 132/69 (90) Pulse Ox 94 93 FiO2 90 90 06/20/24 06/20/24 06/20/24 06/20/24 16:15 16:30 16:45 17:00 Pulse 112 111 112 112 Resp B/P (MAP) 137/72 (93) 132/69 (90) 130/69 (89) 138/71 (93) Pulse Ox 92 93 93 92 06/20/24 06/20/24 06/20/24 06/20/24 17:15 17:30 17:45 17:50 Pulse 114 116 132 133 Resp 33 B/P (MAP) 156/84 (108) 147/79 (101) 166/88 (114) 170/98 (122) Pulse Ox 94 89 88 88 FiO2 90 06/20/24 06/20/24 18:36 18:41 Pulse 130 130 Resp 30 FiO2 90 Intake & Output (last 24hrs) 06/19/24 06/19/24 06/20/24 15:00 23:00 07:00 Intake Total 1490.0 ml 1515.0 ml 1195.0 ml Output Total 1500 ml 2000 ml Balance 1490.0 ml 15.0 ml -805.0 ml LABS: Laboratory: Test 06/20/24 17:20 06/20/24 16:39 06/20/24 12:00 06/20/24 04:21 Range/Units Blood Gas Specimen Type Arterial Arterial Blood pH 7.396 7.350-7.450 Arterial Blood Partial Pressure CO2 65 *H 32-45 mmHg Arterial Blood Partial Pressure O2 71.5 L 83.0-108.0 mmHg Arterial Blood HCO3 39.2 H 21.0-28.0 mmol/L Arterial Blood Oxygen Saturation 92.1 L 94.0-98.0 % Arterial Blood Base Excess 12.2 H -2.0-3.0 mmol/L Hemoglobin (Blood Gas) 10.4 L 12.0-16.0 g/dL Sodium (Blood Gas) 130 L 136-145 MMOL/L Bedside Potassium (Blood Gas) 5.0 H 3.4-4.5 MMOL/L Bedside Chloride (Blood Gas) 89 *L 98-107 MMOL/L Bedside Glucose (Blood Gas) 172 H 65-95 MG/DL Bedside Ionized Calcium (Blood Gas) 1.12 L 1.15-1.33 MMOL/L Bedside Lactic Acid (Blood Gas) 1.40 H 0.36-0.75 MMOL/L Blood Gas Temperature 37.0 35.5-37.0 CELSIUS Blood Gas Respiration Rate 30.0 min. Blood Gas Vent Mode AC ROOM AIR FiO2 90.0 % Blood Gas Tidal Volume 375 ml Blood Gas PEEP 8 cm H2O Blood Gas Specimen Comment WENDY Whole Blood Glucose 203 H 70-110 MG/DL Bedside Glucose Comment Notified Nurse White Blood Count 4.6 L 4.8-10.8 K/uL Red Blood Count 2.81 L 4.00-5.50 MIL/uL Hemoglobin 9.2 L 12.0-16.0 g/dL Hematocrit 27.4 L 36-48 % Mean Corpuscular Volume 97.5 79-99 fL Mean Corpuscular Hemoglobin 32.7 27.0-33.0 pg Mean Corpuscular Hemoglobin Concent 33.6 32.0-36.0 g/dL Red Cell Distribution Width 12.0 11.0-15.5 % Platelet Count 121 L 130-400 K/uL Mean Platelet Volume 10.7 H 7.5-10.5 fL Immature Granulocyte % (Auto) 1.7 H 0-1 % Neutrophils (%) (Auto) 94.0 H 40.0-77.0 % Lymphocytes (%) (Auto) 2.6 L 21.0-51.0 % Monocytes (%) (Auto) 1.5 L 3.0-13.0 % Eosinophils (%) (Auto) 0.0 0.0-8.0 % Basophils (%) (Auto) 0.2 0.0-5.0 % Neutrophils # (Auto) 4.3 1.8-7.7 K/uL Lymphocytes # (Auto) 0.1 L 1.0-4.8 K/uL Monocytes # (Auto) 0.1 0.1-1.0 K/uL Eosinophils # (Auto) 0.00 0.00-0.70 K/uL Basophils # (Auto) 0.01 0.00-0.20 K/uL Absolute Immature Granulocyte (auto 0.08 0-1 K/uL Nucleated Red Blood Cells 0.4 H 0.0-0.19 % Sodium Level 135 L 136-145 mmol/L Potassium Level 5.3 H 3.5-5.1 mmol/L Chloride Level 95 L 101-111 mmol/L Carbon Dioxide Level 42 *H 21-32 mmol/L Blood Urea Nitrogen 22 H 7-18 mg/dL Creatinine 0.4 L 0.5-1.0 mg/dL Glomerular Filtration Rate Calc 121 >90 mL/min Random Glucose 224 H 70-105 mg/dL Total Calcium 7.9 L 8.5-10.1 mg/dL Total Bilirubin 0.1 L 0.2-1.0 mg/dL Aspartate Amino Transf (AST/SGOT) 45 H 10-37 U/L Alanine Aminotransferase (ALT/SGPT) 84 H 12-78 U/L Alkaline Phosphatase 112 50-136 U/L Total Protein 4.8 L 6.0-8.3 g/dL Albumin 1.6 L 3.5-5.0 g/dL ASSESSMENT: Acute hypoxic respiratory failure, s/p intubated on 06/11/2024. Pneumocystis carinii pneumonia. Positive for Cytomegalovirus. Positive HIV test. Infection with methicillin-resistant Staphylococcus aureus. Leukocytosis, resolved. Obesity. Oral candidiasis. Anemia. PLAN: Continue Ganciclovir IV for 14 days. Continue Bactrim. Continue Meropenem as currently ordered. Continue fluconazole p.o. Continue critical care support. Continue ventilatory support. Continue steroids. Continue GI prophylaxis. Continue bronchodilators. Continue DVT prophylaxis. This case was reviewed and discussed with my supervising physician and the above assessment and plan was formulated and agreed upon. ATTESTATION BY PHYSICIAN I have seen and examined the patient. I reviewed the documentation, medical decision making, and treatment plan as noted by the mid-level provider above. I agree with the findings and plan of care. [place] MD, MIRTA L SIGN POSTER Jun 20, 2024 21:43
[2024-06-21] VITALS (38 sets, daily range): BP systolic 113–158; BP diastolic 65–89; PULSE 95–108; RESP 7–41; TEMP 96.9–98.8; O2SAT 91–97
[2024-06-21 04:58] LABS: HEMATOCRIT 28.4 % (36-48); MEAN CORPUSCULAR HEMOGLOBIN 33.3 pg (27.0-33.0); MEAN CORPUSCULAR HGB CONC 33.8 g/dL (32.0-36.0); MEAN CORPUSCULAR VOLUME 98.6 fL (79-99); RED BLOOD CELL COUNT(AUTO) 2.88 MIL/uL (4.00-5.50); RED CELL DISTRIBUTION WIDTH 12.3 % (11.0-15.5)
[2024-06-21 05:20] LABS: ALBUMIN 1.5 g/dL (3.5-5.0); BILIRUBIN,TOTAL 0.3 mg/dL (0.2-1.0); CREATININE 0.4 mg/dL (0.5-1.0); MAGNESIUM 2.1 mg/dL (1.80-2.40); POTASSIUM 5.5 mmol/L (3.5-5.1); TOTAL PROTEIN, SERUM 4.8 g/dL (6.0-8.3)
[2024-06-21] MEDS: LACTULOSE 20 GM/30 ML UDCUP PO ONE (08:47)
--- NOTE | 2024-06-21 09:21 | PN ---
[facility] PROGRESS NOTE Date of Service: Jun 21, 2024 Time of Service: 09:19 SUBJECTIVE: [ ] Ms. Abdullahi is a 49-year-old female that was seen and examined today on 05/23/2024. Patient is a good historian and personal health. Patient's son Dagoberto Salcido is at bedside. Patient states that she came to the emergency department with a chief complaint of shortness of breath. Onset was two weeks ago. Location is to lungs. Duration is on and off. Character is described as "easily running out of air." Initially shortness and breath was only aggravated with climbing one or two flights of stairs but symptoms have progressively worsened and patient becomes short of breath even standing or walking short distances. There was no alleviating factors however previously symptoms were being controlled with daily morning albuterol nebulizer treatments. Patient denies any associated chest pain or dizziness. Patient reports an episode of COVID in December 2023. emergency department CBC unremarkable, chemistry unremarkable, urinalysis unremarkable, influenza screen negative, COVID negative, blood gas shows PO2 less than 45. Chest x-ray shows left lower lung pneumonia and minimal right lung base atelectasis. Upon arrival to the emergency department patient was placed on a BiPAP due to respiratory distress. 05/24/2024-patient was seen and examined at the bedside, still on BiPAP. Patient is able to speak, and says she feels much better than before. Patient says after COVID in December she developed severe bronchitis and she was on Solu-Medrol and albuterol, which did not help her much and later she had high fevers and shortness of breath which is when she came to the ED.Vitals afebrile pulse 76, RR 38 tachypneic , blood pressure 115/68, pulse oxygen 99 on BiPAP flow of 60. On ABG pH 7.47, pCO2 29, PO2 109.4, oxygen saturation 98.3. [id number] potassium 4.1 BUN15 creatinine 0.5 GFR 114. We will closely monitor the patient. [employer] Furnish[employer] Installer consult noted waiting on the recommendation 05/25/24 patient was seen and examined and case discussed with RN and family by the bedside. She was breathing better today. She has been on BiPAP all night but now he was on 100% non-rebreather with further efforts to continue to wean the oxygen requirements down. 05/27/24 patient is seen and examined at bedside, acute events overnight, case discussed with the RN, BP 131/64, afebrile, saturating 96-97% via Ventimask, FiO2 40%. The patient admits cough productive of clear phlegm. Serology tests reviewed, HIV preliminary positive, discussed with the patient. 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 We will continue the patient on IV antibiotics, continue fluconazole, continue to follow Pulmonary and ID input and recommendations. After provided in the preliminary results of HIV test, she denies any suicidal or homicidal ideations. 05/28 patient has been seen and examined, no acute events overnight, case discussed with the RN, during my visit patient is sitting comfortably in the chair, hemodynamically stable, off Ventimask, currently on 10 L via nasal cannula, saturating 98%, tolerated BiPAP overnight. she feels better, less shortness a breath, still admits cough productive of yellow phlegm. No chest pain. Getting IV antibiotics during my visit. HIV P24 antigen, nonreactive. We will continue to follow Pulmonary and Infectious Disease input and recommendations. 05/29 patient has been seen and examined, no acute events overnight, case discussed with the RN, during my visit patient is sitting comfortably in the chair, hemodynamically stable, remains on 10 L via nasal cannula, saturating 98%, still admits cough productive of yellow phlegm. No chest pain. Getting IV antibiotics during my visit. HIV P24 antigen, nonreactive. Pending CD4 cell count. We will continue to follow Pulmonary and Infectious Disease input and recommendations. 05/30 the patient has been seen and examined, no acute events overnight, BP 114/66, during my visit she is on Ventimask, saturating 95%, FiO2 60%. Without the Ventimask the patient desaturates to the low 70s. Patient tolerating BiPAP during the night. Still admits cough productive of thick yellow phlegm, no chest pain. Results of CD4 cell count reviewed, discussed with the patient. We will continue broad-spectrum IV antibiotics. Continue to follow Pulmonary and Infectious Disease input and recommendations. 05/31 the patient has been seen and examined, upgraded to the ICU, during my visit she is sitting in the chair, BP 113/72, heart rate of 109, she is on Oxymizer, 30 L, FiO2 100%. She is alert oriented x3, still admits cough productive of thick yellow phlegm, no chest pain. Hemoglobin 12.9, hematocrit 36.6, WBC 14.6. ABG with pH 7.4, pCO2 40, PO2. Chest x-ray shows left lower lo be infiltrate consistent with pneumonia. She is getting IV antibiotics during my visit. Patient will remain in the ICU, continue to follow critical Care as well as infectious disease input and recommendations. 06/01 patient is seen and examined, sitting comfortable in chair, awake, following commands, remains on high-flow oxygen, FiO2 70%, 30 L, BP 117/67, heart rate of 78, respiratory rate of 30-36, saturating 100%, CBC with a hemoglobin 13.6, hematocrit 38.9, WBC 12.4. Platelet count of 341. Chest x-ray showing persistent left lung infiltrate, cardiac size and mediastinum unremarkable. The bony structures are within the normal limits. Patient getting IV antibiotics during my visit. Patient to continue with the high-dose steroids. Serology test positive for Pneumocystis sandra. Patient on Bactrim two tablets p.o. t.i.d.. Continue also doxycycline and cefepime IV. Continue to follow infectious disease input and recommendation. Continue to follow Pulmonary input and recommendations. 06/02 patient is seen and examined at bedside, currently in prone position, alert oriented x3. CPT started last night, she has started having more loose phlegm expectorated. BP 114/74, tachycardic 114, saturating 95%, high-flow nasal cannula, 30 L, FiO2 80%. CBC with a hemoglobin 16.9, hemoglobin 14 0, hematocrit 39.8, platelet count 347. Chest x-ray shows persistent left lung infiltrate. 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 HIV preliminary positive, HIV P 24 nonreactive, HIV-one RNA by PCR [id number]. Serology test for toxoplasma currently pending. Patient on IV antibiotics as well as high-dose steroids. Continue to follow infectious Disease and Pulmonary input and recommendations. 06/03 patient seen at bedside, no acute events overnight. She continues with respiratory distress, with increasing oxygen requirements. Critical Care has discussed a possible need for intubation if she does not improve. She has been started on steroids due to underlying PCP pneumonia. WBC improved from 16.9 down to 13.5, sodium stable at 132, same as yesterday, lactic acid downtrending from 4.1 down to 3.2, remainder of her labs are relatively unremarkable. 06/04 patient seen at bedside, no acute events overnight. She remains on high- flow nasal cannula, mildly tachycardic. WBC elevated at 13.3, sodium decreased from 132 down to 129, remainder of her labs are relatively unremarkable. Continue to wean supplemental oxygen. Further care per critical Care 06/05 patient seen at bedside, no acute events overnight. She remains on high- flow nasal cannula with BiPAP overnight and is still tachycardic. Heart rate ranging from 104 up to 113, WBC improved from 13.3 down to 11.1, sodium decreased from 120 down to 126, remainder of her labs are relatively unremarkable. We will continue to wean oxygen as able. 06/06 Patient seen at bedside, no acute events overnight. She remains on high- flow nasal cannula with BiPAP overnight and is still tachycardic. Heart rate ranging from 104 up to 122, WBC improved from 11.1 down to 10.6, sodium improved from 126 up to 129, remainder of her labs are relatively unremarkable. We will continue to wean oxygen as able. 06/07 patient seen at bedside, no acute events overnight. She is still on high- flow nasal cannula, RT advised to wean oxygen, currently saturating 100% on 30L. She is tachycardic, sodium decreased from 129 down to 123, likely secondary to Bactrim. Patient is asymptomatic, will continue with bactrim, if sodium continues to decrease consider a holiday from bactrim. 06/08 patient seen at bedside, no acute events overnight. She is still on high- flow nasal cannula, RT advised to wean oxygen, currently saturating 100% on 30L. She is tachycardic, sodium stable at 123, same as yesterday. Pending improvement in respiratory status 06/09 patient seen at bedside, he remains on high-flow nasal cannula, we will continue to wean as able, appreciate pulmonology assistance, tachycardic with heart rate ranging from 123 up to 130. She is still having low-grade fevers at 100.8. Sodium increased from 123 up to 130, remainder of her labs are relatively unremarkable. 06/10 patient is seen and examined at bedside, remains on high-flow oxygen, she feels mildly anxious, no chest pain. Still with a cough productive of white phlegm. Still tachycardic, heart rate 117-122. Patient is still spiking low- grade fever. Hemoglobin 10.9, hematocrit 30.5. Sodium remained low at 128, BUN and creatinine of 16 and 0.4. 06/11 patient is seen and examined at bedside, patient now on AVAPS, FiO2 100%, patient became restless last night, she had to be started on Precedex. During my visit she remains alert oriented x3, no chest pain. BP 120/48, she is saturating 100%. Hemoglobin 10 point, hematocrit 31.3. ABG shows persistent hypoxemia, with a PO2 of 69.4. Chest x-ray shows extensive infiltrates on the left which is stable to somewhat increased, there has been interval development of perihilar infiltrate on the right. Normal bilateral lower extremity venous Doppler ultrasound. Continue the patient on prednisone 20 mg p.o. daily, continue Bactrim two tablets p.o. t.i.d. as well as fluconazole 100 mg p.o. daily. 06/12 patient is seen and examined at bedside, intubated, on mechanical ventilation, per discussion with the RN, patient was in respiratory distress yesterday, decision made to intubate the patient. During my visit the patient is midazolam, fentanyl, patient paralyzed, also on Nimbex. She is in a prone position. On pressor support with phenylephrine. Also on Precedex. She is also on hydrocortisone 100 mg IV q.8 hours. Son at bedside, updated. ABG shows pH 7.38, pCO2 47, PO2 122, bicarb of 27.7. 06/13 patient is seen and examined at bedside, remains intubated, on mechanical ventilation, remains on midazolam, fentanyl, patient paralyzed, also on Nimbex. She is in a prone position. On BP pressor support with phenylephrine. Patient is peep of seven. ABG pH 7.34, PO2 72.3. Chest x-ray reviewed, increasing bilateral infiltrates, increasing pneumomediastinum. 06/14 patient is seen and examined at bedside, remains intubated, on mechanical ventilation, prone position, remains on midazolam, fentanyl, patient paralyzed, also on Nimbex. She is in a prone position. Off pressors. Patient is peep of seven. ABG pH 7.34, PO2 72.3. Chest x-ray shows extensive bilateral infiltrates unchanged, no pneumothorax. 06/15 patient is seen and examined at bedside, remains intubated, on mechanical ventilation, prone position, remains paralyzed, on Nimbex. Off pressors. Patient is peep of 10. ABG pH 7.34, PO2 72.3. Chest x-ray shows extensive bilateral infiltrates unchanged, no pneumothorax. Overall condition remains unchanged. No family at bedside. 06/16 patient is seen and examined at bedside, remains intubated, on mechanical ventilation, discussed with the RN, the patient has been placed on supine position. Patient remains on pressor support. Remains on sedation with midazolam and fentanyl BP 114/60, afebrile saturating 96% FiO2 100%, peep of 8. ABG today with pCO2 63, PO2 91.5. Chest x-ray with severe consultation both lungs, unchanged, interval development of pneumomediastinum, moderate to severe. Continue Solu-Medrol 80 mg IV q.8 hours, continue broad-spectrum antibiotics with meropenem 1 g IV q.8 hours, the patient remains on Bactrim. Continue g anciclovir. 2 patient seen at bedside, no acute events overnight. She remains intubated, paralyzed on FiO2 of 100% and PEEP of eight. Continue to try to wean towards extubation. Chest x-ray appears mildly improved from yesterday. She remains supine. Hemoglobin improved from 8.4 up to 8.6, platelets decreased from 121 down to 112, CO2 elevated at 41, same as yesterday, remainder of her labs are relatively unremarkable. Patient is still critical with poor prognosis continue further care per critical care team. 2 patient seen at bedside, no acute events overnight. She remains intubated and sedated, critical care weaning patient off paralyzing agents. She is still on FiO2 of 100% with PEEP of eight, PO2 on ABG 70.8 down from 80.5 yesterday demonstrating a worsening and her oxygenation within her blood at the same ventilator settings. PCO2 increased from 70 up to 75. Hemoglobin improved from 8.6 up to 9.0, platelets improved from 112 up to 127, CO2 increased from 41 up to 45, remainder of her labs are relatively unremarkable. 2 patient seen at bedside, no acute events overnight. She remains intubated and sedated, critical Care to continue trying to wean to extubation. Continue current care further recommendations per critical Care 06/20 patient is seen and examined at bedside, no acute events overnight, she remains intubated, on mechanical ventilation, off vasopressors, sedated with fentanyl and Versed, the patient on peep of 8, saturating 97%. 06/21 patient seen at bedside, no acute events overnight. She remains intubated, paralyzed on FiO2 of 100% and PEEP of eight. Continue to try to wean towards extubation. She remains supine. Chest x-ray stable. Hemoglobin at 8.6, hematocrit 28.4. remainder of her labs are relatively unremarkable. Patient is still critical with poor prognosis continue further care per critical care team. REVIEW OF SYSTEMS 12 point review of systems negative unless noted in HPI PHYSICAL EXAM GENERAL APPEARANCE: Patient intubated, on mechanical ventilation. NEUROLOGICAL: Cranial nerves II-XII grossly intact. Motor is 5/5 in bilateral upper and lower extremities proximal to distal. No sensory deficits. HEENT: Face is symmetric. Pupils are equal and reactive. Extraocular movements are intact. NECK: Supple. No JVD. No thyromegaly. No submental, submandibular, pre- /postauricular, occipital or supraclavicular lymphadenopathy. CHEST: Normal chest expansion. No Telemetry. LUNGS: Bilateral rhonchi, no expiratory wheezing CARDIOVASCULAR: Regular. S1 and S2 normal. No appreciable rubs, murmurs or gallops. ABDOMEN: Soft, nontender, and nondistended. There is no rebound, voluntary guarding, or rigidity. : Deferred. No Souza. EXTREMITIES: Non-edematous and not cyanotic. No clubbing. Good capillary refill. SKIN: No skin breakdown. Vital Signs (last 8hr) Date Time Temp Pulse Resp B/P (MAP) Pulse Ox O2 Delivery O2 Flow Rate FiO2 06/21/24 09:15 95 90 06/21/24 06:56 103 30 06/21/24 06:46 100 90 06/21/24 06:00 95 28 132/73 (92) 97 129/83 (98) 06/21/24 05:00 98 29 125/68 (87) 97 06/21/24 04:57 90 06/21/24 04:00 96 Ventilator+ 90 06/21/24 04:00 97.0 06/21/24 04:00 104 32 121/67 (85) 95 131/77 (95) 06/21/24 03:00 104 30 123/67 (85) 95 06/21/24 02:53 108 90 06/21/24 02:45 106 30 06/21/24 02:00 105 31 144/75 (98) 98 154/86 (108) LABS: Laboratory: Test 06/21/24 06:00 06/21/24 04:32 06/20/24 17:20 06/20/24 12:00 Range/Units Whole Blood Glucose 230 H 70-110 MG/DL White Blood Count 5.0 4.8-10.8 K/uL Red Blood Count 2.88 L 4.00-5.50 MIL/uL Hemoglobin 9.6 L 12.0-16.0 g/dL Hematocrit 28.4 L 36-48 % Mean Corpuscular Volume 98.6 79-99 fL Mean Corpuscular Hemoglobin 33.3 H 27.0-33.0 pg Mean Corpuscular Hemoglobin Concent 33.8 32.0-36.0 g/dL Red Cell Distribution Width 12.3 11.0-15.5 % Platelet Count 121 L 130-400 K/uL Mean Platelet Volume 10.7 H 7.5-10.5 fL Nucleated Red Blood Cells 0.0 0.0-0.19 % Sodium Level 133 L 136-145 mmol/L Potassium Level 5.5 H 3.5-5.1 mmol/L Chloride Level 92 L 101-111 mmol/L Carbon Dioxide Level 60 *H 21-32 mmol/L Blood Urea Nitrogen 23 H 7-18 mg/dL Creatinine 0.4 L 0.5-1.0 mg/dL Glomerular Filtration Rate Calc 121 >90 mL/min Random Glucose 221 H 70-105 mg/dL Total Calcium 7.6 L 8.5-10.1 mg/dL Magnesium Level 2.10 1.80-2.40 mg/dL Total Bilirubin 0.3 0.2-1.0 mg/dL Aspartate Amino Transf (AST/SGOT) 83 H 10-37 U/L Alanine Aminotransferase (ALT/SGPT) 160 H 12-78 U/L Alkaline Phosphatase 116 50-136 U/L Total Protein 4.8 L 6.0-8.3 g/dL Albumin 1.5 L 3.5-5.0 g/dL Blood Gas Specimen Type Arterial Arterial Blood pH 7.396 7.350-7.450 Arterial Blood Partial Pressure CO2 65 *H 32-45 mmHg Arterial Blood Partial Pressure O2 71.5 L 83.0-108.0 mmHg Arterial Blood HCO3 39.2 H 21.0-28.0 mmol/L Arterial Blood Oxygen Saturation 92.1 L 94.0-98.0 % Arterial Blood Base Excess 12.2 H -2.0-3.0 mmol/L Hemoglobin (Blood Gas) 10.4 L 12.0-16.0 g/dL Sodium (Blood Gas) 130 L 136-145 MMOL/L Bedside Potassium (Blood Gas) 5.0 H 3.4-4.5 MMOL/L Bedside Chloride (Blood Gas) 89 *L 98-107 MMOL/L Bedside Glucose (Blood Gas) 172 H 65-95 MG/DL Bedside Ionized Calcium (Blood Gas) 1.12 L 1.15-1.33 MMOL/L Bedside Lactic Acid (Blood Gas) 1.40 H 0.36-0.75 MMOL/L Blood Gas Temperature 37.0 35.5-37.0 CELSIUS Blood Gas Respiration Rate 30.0 min. Blood Gas Vent Mode AC ROOM AIR FiO2 90.0 % Blood Gas Tidal Volume 375 ml Blood Gas PEEP 8 cm H2O Blood Gas Specimen Comment WENDY Bedside Glucose Comment Notified Nurse Test 06/20/24 04:21 Range/Units Immature Granulocyte % (Auto) 1.7 H 0-1 % Neutrophils (%) (Auto) 94.0 H 40.0-77.0 % Lymphocytes (%) (Auto) 2.6 L 21.0-51.0 % Monocytes (%) (Auto) 1.5 L 3.0-13.0 % Eosinophils (%) (Auto) 0.0 0.0-8.0 % Basophils (%) (Auto) 0.2 0.0-5.0 % Neutrophils # (Auto) 4.3 1.8-7.7 K/uL Lymphocytes # (Auto) 0.1 L 1.0-4.8 K/uL Monocytes # (Auto) 0.1 0.1-1.0 K/uL Eosinophils # (Auto) 0.00 0.00-0.70 K/uL Basophils # (Auto) 0.01 0.00-0.20 K/uL Absolute Immature Granulocyte (auto 0.08 0-1 K/uL Current Medications Medications (Trade) Dose Ordered Sig/Julita Route PRN Reason Start Time Stop Time Status Last Admin Dose Admin Acetaminophen (TYLenol 650MG ELIXIR) 650 mg Q6H PRN PO MILD PAIN (1-3) 06/04/24 08:30 07/04/24 08:29 06/10/24 20:07 650 MG Acetaminophen (TYLenol 650MG SUPPOSITORY) 650 mg Q6H PRN RC MILD PAIN (1-3) 05/23/24 20:30 06/22/24 20:29 Acetylcysteine (MUComyst 20% 4ML) 400mg = 2ml [id number] IH 06/02/24 00:00 06/05/24 15:52 DC 06/05/24 11:35 200 MG Albuterol (DUOneb) 1 udvial [id number] IH 05/24/24 00:00 06/10/24 10:28 DC 06/10/24 06:45 1 UDVIAL Alprazolam (XANax 0.5MG) 0.5 mg Q8H PRN PO ANXIETY 06/10/24 13:30 07/10/24 13:29 06/11/24 05:22 0.5 MG Artificial Tears (Artificial Tears) 1 DROP OR AD Q8H OU 06/11/24 14:30 07/11/24 14:29 06/21/24 06:04 1 DROP Azithromycin 250 ml @ 250 mls/hr Q24H IVPB 05/24/24 17:00 05/24/24 14:41 DC Azithromycin 250 ml @ 250 mls/hr Q24H STAT IVPB 05/23/24 17:17 05/24/24 14:41 DC 05/23/24 17:45 250 MLS/HR Benzocaine (Cepacol Sore Throat Lozenge) 1 each Q4H PRN MM SORE THROAT 06/08/24 10:00 07/08/24 09:59 06/09/24 07:44 1 EACH Bisacodyl (DulcoLAX) 10 mg DAILY PRN RC CONSTIPATION 06/08/24 14:00 07/08/24 13:59 06/19/24 11:41 10 MG Cadexomer Iodine (Iodosorb Gel 40gm) 1 APPL TO RIGHT FAC... DAILY TP 06/19/24 09:00 07/18/24 08:59 06/20/24 09:13 1 APPL Cadexomer Iodine (Iodosorb Gel 40gm) 1 appl DAILY TP 06/18/24 09:00 06/19/24 07:23 DC 06/18/24 14:09 1 APPL Cefepime HCl (MAXipime 2 gm vial) 2 gm Q12H IVPB 05/24/24 15:00 06/03/24 14:59 DC 06/03/24 03:18 2 GM Ceftriaxone Sodium (ROCEphine 1G INJ) 1 gm Q24H IVPB 05/24/24 17:30 05/24/24 14:41 DC Chlorhexidine Gluconate (Peridex) 15 ml Q6H MM 06/07/24 17:00 06/11/24 14:27 DC 06/10/24 12:22 15 ML Chlorhexidine Gluconate (Peridex) 15 ml Q8H MM 06/11/24 14:30 06/25/24 14:29 06/21/24 06:04 15 ML Cisatracurium Besylate (Nimbex) ONCE IVP 06/11/24 14:30 06/11/24 15:57 DC Cisatracurium Besylate 100 mg/ Sodium Chloride 100 ml @ 0 mls/hr PROTOCOL IV 06/11/24 23:30 07/11/24 23:29 06/17/24 09:27 14.94 MLS/HR Clotrimazole (Mycelex) 10 mg TID MM 06/04/24 21:00 06/14/24 08:39 DC 06/13/24 20:28 10 MG Dexmedetomidine/ Sodium Chloride (PRECEdex 400MCG/ 100ML-NS) 400 mcg PROTOCOL IV 06/10/24 19:30 07/10/24 19:29 06/12/24 06:32 400 MCG Dobutamine HCl/ Dextrose 250 ml @ 0 mls/hr PROTOCOL IV 06/12/24 16:30 06/12/24 16:53 DC Doxycycline Hyclate 250 ml @ 125 mls/hr Q12H IV 05/24/24 16:30 06/03/24 16:29 DC 06/03/24 04:23 125 MLS/HR Enoxaparin Sodium (Lovenox 80mg) 40 mg DAILY SQ 06/15/24 09:00 06/15/24 09:30 DC Enoxaparin Sodium (Lovenox 80mg) 80 mg BID SQ 06/11/24 09:00 06/14/24 23:28 DC 06/14/24 20:33 80 MG Enoxaparin Sodium (Lovenox) 40 mg DAILY SQ 06/15/24 09:30 07/15/24 09:29 06/20/24 09:12 40 MG Enoxaparin Sodium (Lovenox) 40 mg Q24H SQ 05/23/24 21:00 06/11/24 04:36 DC 06/10/24 20:07 40 MG Famotidine (Pepcid 20mg Vial) 20 mg DAILY IV 05/24/24 09:00 06/14/24 08:39 DC 06/13/24 08:15 20 MG Fentanyl Citrate 2500 mcg/Sodium Chloride 250 ml @ 0 mls/hr AD PRN IV TITRATE 06/17/24 05:30 06/17/24 05:18 DC Fentanyl/Sodium Chloride 250 ml @ 0.1 mls/hr PROTOCOL IV 06/12/24 00:00 06/17/24 00:00 DC 06/16/24 17:36 0.1 MLS/HR Fentanyl/Sodium Chloride 250 ml @ 0 mls/hr AD PRN IV ICU SEDATION 06/17/24 05:30 06/22/24 05:29 06/21/24 02:42 30 MLS/HR Fluconazole (DiFLUCan 100 mg TAB) 200 mg DAILY PO 06/05/24 09:00 07/05/24 08:59 06/20/24 09:12 200 MG Fluconazole/ Sodium Chloride 100 ml @ 100 mls/hr DAILY IV 05/26/24 09:00 05/27/24 15:57 DC 05/27/24 09:07 100 MLS/HR Furosemide (LASix 20MG VIAL) 20 mg DAILY IV 05/31/24 09:00 06/07/24 13:18 DC 06/03/24 08:38 20 MG Furosemide (LASix 20MG VIAL) 20 mg DAILY IV 06/17/24 10:00 06/17/24 12:13 DC 06/17/24 09:46 20 MG Furosemide (LASix 20MG VIAL) 20 mg Q12H IV 06/11/24 11:00 06/13/24 09:31 DC 06/12/24 21:54 20 MG Furosemide (LASix 20MG VIAL) 20 mg Q12H IV 06/17/24 22:00 06/18/24 10:01 DC 06/18/24 09:44 20 MG Furosemide (LASix 20MG VIAL) 20 mg Q8H IV 06/13/24 09:30 06/16/24 11:00 DC 06/16/24 08:44 20 MG Furosemide (LASix 20MG VIAL) 20 mg Q8H IV 06/19/24 17:00 07/19/24 16:59 06/21/24 01:27 20 MG Ganciclovir Sodium 430 mg/ Sodium Chloride 100 ml @ 100 mls/hr Q12H IV 06/13/24 09:00 07/13/24 08:59 06/20/24 22:29 100 MLS/HR Ganciclovir Sodium 500 mg/ Sodium Chloride 100 ml @ 100 mls/hr Q12H IV 06/11/24 18:00 06/11/24 15:48 DC Ganciclovir Sodium (Ganciclovir Sodium) 500 mg Q12H IV 06/12/24 17:00 06/13/24 08:35 DC Guaifenesin/ Dextromethorphan (RobiTUSSin DM 200/20MG 10ML) 10 ml Q4H PRN PO COUGH 05/23/24 20:30 06/22/24 20:29 06/10/24 20:07 10 ML Hydrocortisone Sodium Succinate (Solu-corTEF 100MG) 100 mg Q8H IV 06/11/24 05:00 06/14/24 08:39 DC 06/14/24 06:13 100 MG Hydroxyzine HCl (ATArax 25MG TAB) 25 mg TID PRN PO ITCHING 06/10/24 14:00 07/10/24 13:59 06/11/24 05:22 25 MG Insulin Human Regular (humuLIN R 100 UNIT/ML 3ML) INSULIN SLIDING SCAL... ACHS SQ 06/19/24 16:30 06/20/24 15:07 DC 06/20/24 12:30 5 UNIT Insulin Human Regular (humuLIN R 100 UNIT/ML 3ML) INSULIN SLIDING SCAL... Q6H6 SQ 06/20/24 18:00 07/19/24 16:29 06/21/24 06:16 4 UNIT Ipratropium Planada (AtrovENT UD) 0.5 MG [id number] IH 06/10/24 14:00 07/10/24 13:59 06/21/24 06:48 0.5 MG Lactated Ringer's (Lactated Ringers 1000ml) 500 ml ONCE IV 06/02/24 20:00 06/02/24 19:54 DC Levofloxacin/ Dextrose 100 ml @ 100 mls/hr Q24H IV 05/24/24 15:00 05/24/24 16:16 DC Magnesium Sulfate 50 ml @ 0 mls/hr PROTOCOL PRN IV hypomagnesemia 05/28/24 08:00 06/27/24 07:59 06/11/24 05:26 50 MLS/HR Meropenem (Merrem 1gm) 1 gm Q8H IVPB 06/13/24 15:00 06/18/24 21:57 DC 06/18/24 15:34 1 GM Meropenem (Merrem 1gm) 1 gm Q8H IVPB 06/19/24 01:00 06/21/24 00:59 DC 06/20/24 16:50 1 GM Meropenem (Merrem) 1 gm Q8H IVPB 06/11/24 15:00 06/13/24 11:52 DC 06/13/24 08:14 1 GM Meropenem 1 gm/ Sodium Chloride 100 ml @ 33.333 mls/ hr Q8H IV 06/11/24 14:30 06/11/24 14:28 DC Methylprednisolone Sodium Succinate (Solu-medROL 40MG) 20 mg Q12H IVP 06/05/24 07:00 06/09/24 09:13 DC 06/09/24 07:25 20 MG Methylprednisolone Sodium Succinate (Solu-medROL 40MG) 40 mg Q12H IVP 05/28/24 18:00 05/29/24 16:45 DC 05/29/24 05:32 40 MG Methylprednisolone Sodium Succinate (Solu-medROL 40MG) 40 mg Q6H IVP 05/29/24 16:30 06/04/24 16:44 DC 06/04/24 11:13 40 MG Methylprednisolone Sodium Succinate (Solu-medROL 40MG) 40 mg Q6H IVP 06/04/24 18:00 06/05/24 00:24 DC 06/04/24 23:48 40 MG Methylprednisolone Sodium Succinate (Solu-medROL 40MG) 40 mg Q8H IVP 05/24/24 01:00 05/25/24 21:51 DC 05/25/24 17:28 40 MG Methylprednisolone Sodium Succinate (Solu-medROL 40MG) 60 mg Q6H IVP 05/25/24 22:00 05/28/24 02:25 DC 05/27/24 23:55 60 MG Methylprednisolone Sodium Succinate (Solu-medROL 40MG) 60 mg Q6H IVP 05/28/24 06:00 05/28/24 08:27 DC 05/28/24 06:47 60 MG Methylprednisolone Sodium Succinate (Solu-medROL 40MG) 60 mg Q6H IVP 06/11/24 02:30 06/11/24 04:23 DC 06/11/24 02:46 60 MG Methylprednisolone Sodium Succinate (Solu-medROL 40MG) 80 mg Q8H IVP 06/14/24 17:00 07/14/24 08:59 06/21/24 01:22 80 MG Methylprednisolone Sodium Succinate (Solu-medROL 125MG) 80 mg Q8H IVP 06/14/24 09:00 06/14/24 14:53 DC 06/14/24 08:48 80 MG Metronidazole/ Sodium Chloride (flaGYL) 500 mg Q8H IV 05/25/24 22:00 05/25/24 21:56 DC Midazolam HCl 50 ml @ 0 mls/hr AD PRN IV TITRATE 06/12/24 01:30 06/12/24 08:30 DC 06/12/24 02:30 10 MLS/HR Midazolam HCl 100 ml @ 0 mls/hr AD PRN IV TITRATE 06/12/24 09:00 07/12/24 01:29 06/21/24 02:43 10 MLS/HR Morphine Sulfate (morPHINE 4MG SYG) 4 mg Q4H PRN IM RESPIRATORY SYMPTOMS 06/11/24 03:30 06/14/24 23:33 DC 06/11/24 03:27 4 MG Ondansetron HCl (zoFRAN 4MG INJ) 4 mg Q6H PRN IV NAUSEA/VOMITING 05/23/24 20:30 06/22/24 20:29 Pantoprazole Sodium (PROTonix 40MG INJ) 40 mg BID IVP 06/12/24 21:00 07/12/24 20:59 06/20/24 22:04 40 MG Pharmacy Profile Note (Lace Assessment) 1 each AD MISC 06/17/24 16:30 06/17/24 16:27 DC Pharmacy Profile Note (Pharmacy Communication) 1 each ONCE MISC 06/11/24 14:30 06/11/24 15:53 DC Pharmacy Profile Note (Pharmacy Communication) 1 each ONCE MISC 06/11/24 20:30 06/11/24 20:14 DC Pharmacy Profile Note (Pharmacy Communication) 1 each ONCE MISC 06/12/24 17:00 06/12/24 17:07 DC Phenylephrine HCl 10 mg/Sodium Chloride 251 ml @ 0 mls/hr AD PRN IV DIRECTED 06/11/24 03:00 06/12/24 18:12 DC 06/12/24 14:10 47 MLS/HR Phenylephrine HCl 50 mg/Sodium Chloride 250 ml @ 0 mls/hr PROTOCOL PRN IV PROTOCOL 06/12/24 18:00 07/12/24 17:59 06/13/24 08:57 12.45 MLS/HR Potassium Chloride 100 ml @ 100 mls/hr AD PRN IV POTASSIUM PROTOCOL 05/28/24 08:00 06/27/24 07:59 Potassium Chloride (K-Dur/Klor-Con 20meq) 20 meq AD PRN PO POTASSIUM PROTOCOL 05/28/24 08:00 06/27/24 07:59 Potassium Chloride (KCl 10% Elixir 20meq/15ml) 20 meq AD PRN PO POTASSIUM PROTOCOL 05/28/24 08:00 06/27/24 07:59 Prednisone (deltaSONE/ oraSONE 20MG TAB) 20 mg DAILY PO 06/10/24 09:00 06/14/24 08:39 DC 06/13/24 08:15 20 MG Rocuronium Planada (ZemuRON) 10 mg Q1H PRN IV RESP DISTRESS/VENT DISYNCHRONY 06/11/24 20:30 06/11/24 23:29 DC 06/11/24 20:33 10 MG Rocuronium Planada (ZemuRON) 50 mg Q4H PRN IV VENT DYSSYNCHRONY 06/17/24 16:30 07/17/24 16:29 06/21/24 00:43 50 MG Sodium Chloride 500 ml @ 500 mls/hr Q1H IV 06/02/24 20:00 06/02/24 20:59 DC 06/02/24 21:34 500 MLS/HR Sodium Chloride 1,000 ml @ 75 mls/hr [id number] IV 06/07/24 13:30 06/10/24 17:02 DC 06/10/24 09:05 75 MLS/HR Sodium Chloride (Sodium Chloride) 1,000 mg BIDAC PO 06/07/24 16:30 06/09/24 07:28 DC 06/08/24 16:58 1,000 MG Sodium Chloride (Sodium Chloride) 1,000 mg BIDAC PO 06/09/24 07:30 06/12/24 16:35 DC 06/12/24 12:30 1,000 MG Sodium Chloride (Sodium Chloride) 1,000 mg Q12H PO 06/12/24 21:00 07/09/24 07:29 06/20/24 22:04 1,000 MG Sodium Zirconium Cyclosilicate (Lokelma) 5 gm DAILY10 PO 06/08/24 10:30 06/10/24 10:29 DC 06/08/24 10:50 5 GM Trimethoprim/ Sulfamethoxazole (BactRIM DS) 1 tab BID PO 05/26/24 21:00 05/29/24 16:18 DC 05/29/24 08:07 1 TAB Trimethoprim/ Sulfamethoxazole (BactRIM DS) 2 tab TID PO 05/29/24 16:30 06/05/24 20:59 DC 06/05/24 14:55 2 TAB Trimethoprim/ Sulfamethoxazole (BactRIM DS) 2 tab TID PO 06/06/24 09:30 06/11/24 21:54 DC 06/10/24 13:58 2 TAB Trimethoprim/ Sulfamethoxazole 320 mg/Dextrose 500 ml @ 333.333 mls/hr Q8H IV 06/19/24 00:30 06/23/24 00:29 06/21/24 00:47 333.333 MLS/HR Trimethoprim/ Sulfamethoxazole 320 mg/Dextrose 500 ml @ 500 mls/hr Q8H IV 06/11/24 22:30 06/12/24 16:35 DC 06/12/24 06:39 500 MLS/HR Trimethoprim/ Sulfamethoxazole 320 mg/Dextrose 500 ml @ 500 mls/hr Q8H IV 06/12/24 18:00 06/13/24 11:13 DC 06/13/24 05:30 500 MLS/HR Trimethoprim/ Sulfamethoxazole 320 mg/Dextrose 500 ml @ 500 mls/hr Q8H IV 06/13/24 13:30 06/18/24 21:55 DC 06/18/24 14:08 500 MLS/HR Trimethoprim/ Sulfamethoxazole 320 mg/Dextrose 500 ml @ 500 mls/hr Q8H IV 06/18/24 11:59 06/19/24 00:56 DC 06/18/24 11:59 500 MLS/HR Valganciclovir (ValGANCIClovir HCL) 900 mg BID PO 06/11/24 21:00 06/13/24 08:37 DC Wound Care/ Dressing Products (Venelex Ointment) 1 VOLODYMYR AD TID TP 06/14/24 14:00 07/14/24 13:59 06/20/24 22:15 1 GM DIAGNOSTICS / RADIOLOGY: [ ] ASSESSMENT: Acute hypoxemic respiratory failure, POA Bilateral lower lobe bacterial pneumonia + MRSA POA, +Azra Suspected PCP PNA based on CT findings vs viral/Atypical PNA . 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 Continue fentanyl Wean off paralytic per critical care Continue to follow critical care input recommendation Continue the patient on Bactrim, meropenem, fluconazole. Continue gancyclovir Continue furosemide 20mg BID IV q.8 hours. Continue methylprednisolone 80mg TID IV Continue to follow infectious disease input and recommendation Continue to follow chest x-ray Continue to follow ABG Continue bronchodilators per respiratory therapist Replace electrolytes IV per protocol A.m. labs GI and DVT prophylaxis. Further orders to follow based on the above results Disposition: Remains admitted to the ICU, pending improvement clinical condition. Prognosis is poor guarded. Total ICU time spent greater than 30 minutes. GAIL WALDRON MD Jun 21, 2024 09:21
[2024-06-21 09:24] LABS: ABG BASE EXCESS 16.4 mmol/L (-2.0-3.0); ABG HCO3 45.1 mmol/L (21.0-28.0); ABG OXYGEN SATURATION 96.1 % (94.0-98.0); ABG PCO2 72 mmHg (32-45); ABG PH 7.417 (7.350-7.450); PO2, ARTERIAL BG 84.5 mmHg (83.0-108.0); VENT MODE, BG AC-VC (ROOM AIR)
--- NOTE | 2024-06-21 10:18 | PN ---
[facility] PROGRESS NOTE Date Patient Seen: Jun 21, 2024 Time of Visit: 10:18 Supervising Physician: Dr. Garcia Primary Care Physician: Stu Foss MD Outpatient Specialists: Inpatient Consults: Pulmonology PROBLEM LIST: Severe ARDS Acute hypoxemic respiratory failure s/p intubation 06/11/24 requiring proning Bilateral lower lobe bacterial pneumonia + MRSA POA, +Azra Confirmed PCP PNA per Ag (serology), POA Pneumomediastinum on x-ray 06/12/24 Disseminated herpes virus infection Elevated DDIMER r/o PE & DVT New HIV/AIDS positive POA Hyponatremia and hyperkalemia, suspected Bactrim induced Normocytic anemia, not POA Neutrophilia, POA Hyperglycemia, POA Obesity BMI of 32.3 Former smoker Fatty liver, POA Moderate hypoalbuminemia POA Previous COVID-19 infection INTERVAL HISTORY: Day # 6 post Intubation. Patient's condition is critical. Patient has a grim prognosis. This morning she was assessed in room 208 in the ICU. She tolerated being supine with O2 sats above 88% since turned yesterday. Continues on sedation and paralyzed with fentanyl at 200 mcg per hour, Versed 10 milligrams/hour, and Nimbex at 2 micrograms/kilogram per minute. Current vital signs blood pressure of 127/66 heart rate in the 80s respiratory rate of 28 on the vent saturating 93% with a FiO2 of 100% and afebrile. Latest ABGs show a pH of 7.37 pCO2 of 70 PO2 of 80 bicarb of 39.7 with vent settings of assist control volume control tidal volume of 425 respiratory rate of 28 FiO2 of 100% and PEEP of 8. PF ratio 80.5. Urine output 1.1 L with a balance of + 2.7 L. on chest x- ray findings consistent with severe persistent bilateral pulmonary opacification. ET tube in correct position. Resolution of the previously seen pneumomediastinum. No pneumothorax.Will continue to follow ABX per ID. There Is No Family At The Bedside At Time Of My Visit. 06/18/2024: At the time of my evaluation, the patient was lying in bed. There was no family members present at the bedside. She remains in the ICU. She is currently on sedation with fentanyl and Versed. RASS score of -5. The patient was taken off Nimbex and is currently on rocuronium IV pushes. She is intubated and mechanically vented, day #7, ACVC FiO2 100%. She also remains on Solu- Medrol 80 mg q.8 hours. Chest x-ray today showed stable examination without any acute intrapulmonary changes. On the monitor, the patient remains hemodynamically stable. Patient remains on feeding through a OGT. Staff nurse reports no residuals, no nausea, vomiting or diarrhea. I and O shows a net balance of 1273.9. The patient continues on antibiotic/antiviral/antifungal therapy with Merrem/Bactrim/ganciclovir and Diflucan. No other complaint. 06/19/2024: At the time of my evaluation, the patient is lying in bed. The staff nurses present at the bedside , no family members. She remains sedated on fentanyl and Versed, currently RASS score of -5. The patient remains intubated and mechanically vented. ACVC rate of 28, TV 450, peep of 8 and FiO2 100%. Chest x-ray showed worsening pulmonary congestion and infiltrates. On the monitor, the patient is hemodynamically stable and is currently not on pressor therapy. She is receiving nutritional support via OGT with Vital HP and no report of nausea, vomiting or diarrhea. The patient remains with Souza catheter in place dark yellow urine. Net balance on I's and O's of 496.6. On labs, the was a slight increase of potassium to 5.6, CO2 of 43 and a BUN of 23. There is no new microbiology data for review. The patient continues on Merrem, ganciclovir, Bactrim and Diflucan guided by the ID specialist. No acute events noted overnight. No other complaint. 06/20/2024: At the time of my evaluation, the patient was lying in bed. She continues intubated and on ventilator support. There was no chest x-ray for review today. On vital signs, there was tachycardia and tachypnea, she was normotensive. The patient continues feeding via OGT with Vital HP. There was no nausea, vomiting or diarrhea. Patient continues with Souza catheter in place and has a net balance of 695.0. On labs today, of concern, there was low- sodium of 135, potassium of 5.3 , chloride of 95, CO2 of 42. There was no his tory for review today. No other complaint. 06/21/2024: At the time of my evaluation, the patient is lying in bed. The staff nurses present at the bedside , no family members. She remains sedated on fentanyl and Versed, currently RASS score of -5. The patient remains intubated and mechanically vented. ABG today showed a pH 7.4, pCO2 72, PO2 84.5 and HC03 of 45.1 on ACVC mode. Chest x-ray showed slight interval improvement of pulmonary congestion and infiltrates. On the monitor, the patient is hem odynamically stable and is currently not on pressor therapy. She is receiving nutritional support via OGT with Vital HP, the staff nurse made mentioned the patient has not had bowel movements for more than three days' and no report of nausea, vomiting. The patient remains with Souza catheter in place dark yellow urine. Net balance on I's and O's of -460.0. On labs, the was improvement of WBC count and stable H&H. Chemistry panel showing persistent decrease in sodium count 131, increase of potassium to 5.3, CO2 of 44 and a BUN of 25and a creatinine of 0.4. There is no new microbiology data for review. The patient continues on ganciclovir, Bactrim and Diflucan guided by the ID specialist. No acute events noted overnight. No other complaint. REVIEW OF SYSTEMS: Unable to obtain ROS from patient due to patient's medical condition. PHYSICAL EXAM: GENERAL: Sedated and intubated, currently SUPINE HEENT: Sclera non icteric, dry scabs and sores to mucosa, sore to rt cheek NECK: short neck no JVD, trachea midline LUNGS: diminished to bilateral breath sounds no wheezing. HEART: Regular rate and rhythm. Normal S1 and S2, without murmurs ABD: Abdomen soft, nontender. Bowel sounds present EXT: No clubbing cyanosis or edema, sore to sacral area, NEURO: Intubated sedated and paralyzed. Vital Signs (last 8hr) Date Time Temp Pulse Resp B/P (MAP) Pulse Ox O2 Delivery O2 Flow Rate FiO2 06/21/24 09:15 95 90 06/21/24 06:56 103 30 06/21/24 06:46 100 90 06/21/24 06:00 95 28 132/73 (92) 97 129/83 (98) 06/21/24 05:00 98 29 125/68 (87) 97 2/7/25 04:57 90 06/21/24 04:00 96 Ventilator+ 90 06/21/24 04:00 97.0 06/21/24 04:00 104 32 121/67 (85) 95 131/77 (95) 06/21/24 03:00 104 30 123/67 (85) 95 06/21/24 02:53 108 90 06/21/24 02:45 106 30 LABS: Hematology Labs: Test 06/21/24 04:32 06/20/24 04:21 Range/Units White Blood Count 5.0 4.8-10.8 K/uL Red Blood Count 2.88 L 4.00-5.50 MIL/uL Hemoglobin 9.6 L 12.0-16.0 g/dL Hematocrit 28.4 L 36-48 % Mean Corpuscular Volume 98.6 79-99 fL Mean Corpuscular Hemoglobin 33.3 H 27.0-33.0 pg Mean Corpuscular Hemoglobin Concent 33.8 32.0-36.0 g/dL Red Cell Distribution Width 12.3 11.0-15.5 % Platelet Count 121 L 130-400 K/uL Mean Platelet Volume 10.7 H 7.5-10.5 fL Nucleated Red Blood Cells 0.0 0.0-0.19 % Immature Granulocyte % (Auto) 1.7 H 0-1 % Neutrophils (%) (Auto) 94.0 H 40.0-77.0 % Lymphocytes (%) (Auto) 2.6 L 21.0-51.0 % Monocytes (%) (Auto) 1.5 L 3.0-13.0 % Eosinophils (%) (Auto) 0.0 0.0-8.0 % Basophils (%) (Auto) 0.2 0.0-5.0 % Neutrophils # (Auto) 4.3 1.8-7.7 K/uL Lymphocytes # (Auto) 0.1 L 1.0-4.8 K/uL Monocytes # (Auto) 0.1 0.1-1.0 K/uL Eosinophils # (Auto) 0.00 0.00-0.70 K/uL Basophils # (Auto) 0.01 0.00-0.20 K/uL Absolute Immature Granulocyte (auto 0.08 0-1 K/uL Chemistry Labs: Test 06/21/24 06:00 06/21/24 04:32 06/20/24 12:00 Range/Units Whole Blood Glucose 230 H 70-110 MG/DL Sodium Level 133 L 136-145 mmol/L Potassium Level 5.5 H 3.5-5.1 mmol/L Chloride Level 92 L 101-111 mmol/L Carbon Dioxide Level 60 *H 21-32 mmol/L Blood Urea Nitrogen 23 H 7-18 mg/dL Creatinine 0.4 L 0.5-1.0 mg/dL Glomerular Filtration Rate Calc 121 >90 mL/min Random Glucose 221 H 70-105 mg/dL Total Calcium 7.6 L 8.5-10.1 mg/dL Magnesium Level 2.10 1.80-2.40 mg/dL Total Bilirubin 0.3 0.2-1.0 mg/dL Aspartate Amino Transf (AST/SGOT) 83 H 10-37 U/L Alanine Aminotransferase (ALT/SGPT) 160 H 12-78 U/L Alkaline Phosphatase 116 50-136 U/L Total Protein 4.8 L 6.0-8.3 g/dL Albumin 1.5 L 3.5-5.0 g/dL Bedside Glucose Comment Notified Nurse DIAGNOSTICS / RADIOLOGY RESULTS: [ ] PLAN Continue sedation with fentanyl, versed wean off Nimbex gtt rocuronium pushes as needed for vent dyssynchrony manage vent per abg maintain plateu pressure of < 30 Continue steroids Continue Atrovent q.4 hours. ABX per ID Son is POA 06/18/2024: For now, we are going to continue current management for the patient. We are going to continue with the mechanical ventilator support and we will adjust to maintain optimal ventilation and oxygenation per ABGs. We will continue with rocuronium pushes as needed. We will continue with steroid dose as ordered and we will follow up with serial chest x-ray examination. She remains hemodynamically stable and is not requiring any pressor therapy. We will continue with nutritional support via the NGT and we will continue monit oring for any high residuals, nausea, vomiting or diarrhea events. We will continue monitoring the I's and O's. The patient will continue on antibiotic/antiviral/antifungal therapy as ordered and we will follow the guidance of the Infectious Disease team. We will monitor the patient's progress and response to management. Her condition remains critical and prognosis is poor. We will continue to provide general supportive care, GI and DVT prophylaxis. Further orders per attending MD and hospital course. 06/19/2024: For now, we are going to continue current management for the patient. She will remain mechanically vented for now. Currently, not a candidate for weaning trials. Considering the worsening findings on chest x- ray, I am going to request a CT of the chest without contrast. We will continue to monitor her vital signs parameters and treat accordingly. She will continue on nutritional support via the OGT and we will monitor for nausea, vomiting or diarrhea. We will follow the input of the treating specialist. I am going to request a repeat potassium level and we will correct as necessary. We will monitor the patient's progress and response to management. The patients condition is critical and her prognosis is grim. We will continue to provide general supportive care, GI and DVT prophylaxis. Further orders per attending MD and hospital course. 06/20/2024: For now, we are going to continue current management for the patient. Patient will remain on mechanical ventilator support. Because of the elevated peak pressures, we will adjust vent settings and repeat ABG within 1 hour. We will continue to monitor the vital signs and manage as necessary. We will monitor for any arrhythmias or other cardiac events. The patient will continue to feed via the OGT. We will monitor the urinary output and bowel activity. The patient will continue on antibiotic/antifungal/antiviral therapy as ordered by the Infectious Disease specialist and we will follow up his recommendation. We will repeat surveillance labs in the morning. We will monitor the patient's progress and response to management. We will continue to provide general supportive care, GI and DVT prophylaxis. Further orders per attending MD and hospital course. 06/21/2024: For now, we are going to continue current management for the patient. Patient will remain on mechanical ventilator support. Because of the elevated peak pressures, I am going to change the vent mode to ACPC rate of 30, peak pressor support of 23 and FiO2 90%. We will within 2 hours. We will continue to monitor the vital signs and manage as necessary. We will monitor for any arrhythmias or other cardiac events. The patient will continue to feed via the OGT. Due to lack of bowel activity, we are going to continue with daily lactulose, we will add MiraLax and we will put the patient on Reglan. We will monitor the urinary output and bowel activity. The case was discussed with the Infectious Disease specialist regarding the electrolyte parameters and high dose Bactrim. Based on his input, the patient can be transitioned to maintenance dose Bactrim. The patient will continue on antibiotic/antifungal/antiviral therapy as ordered and we will follow further recommendation. We will repeat surveillance labs in the morning. We will monitor the patient's progress and response to management. We will continue to provide general supportive care, GI and DVT prophylaxis. Further orders per attending MD and hospital course. NEURO: Minimize central acting medications as possible. Fall Precautions. Well lighted room through the day and minimize interruptions through the night to prevent acute delirium. PULMONARY: Supplemental 02 as needed Titrate Fio2 to keep Spo2 > or = 90% DuoNebs and CPT as needed IS hourly while awake for pulmonary hygiene Out of bed to chair as tolerated CARDIOVASCULAR: Follow hemodynamics. Titrate vasopressor to keep MAP >65 or systolic blood pressure >95mmHg Telemetry LINES: CVC RT IJ Arterial line ET tube' FC OG tube GI & NUTRITION: Continue nutritional support Aspirations precautions Prokinetic agents and laxatives as needed KIDNEYS & ELECTROLYTES: Strict monitoring of intake and output Daily weights Avoid nephrotoxic agents Monitor electrolytes and replace as needed Goal urine output of 30mL/hr or 0.5mL/kg/hr ENDOCRINE: Maintain blood glucose between 100-180 at all times. Insulin sliding scale for blood glucose management INFECTIOUS DISEASE: Trend temperature. Clarke-culture if febrile. Sputum culture from 05/23/24 positive for MRSA, Betty albicans Pneumocystis carinii antigen positive Panculture: 06/02/24 Blood cultures Urine cultures Respiratory culture Antibiotics: Bactrim DS Fluconazole Valganciclovir HEMATOLOGY & COAGULATION: Monitor H&H. Keep Hgb > 7 Transfuse 1 unit of PRBC for Hgb < 7 Transfuse 1 pack of platelets of platelets < 20, 000 Watch for any signs and symptoms of bleeding SKIN: Pressure ulcer prevention per facility protocol Rehab: PT/OT Prophylaxis: GI: Pepcid DVT: Lovenox Code Status: Full Resuscitation Disposition: ICU Other: Critical care time I personally spent 45 minutes of critical care time in treatment of this patient. This includes patient management, time at bedside, time reviewing tests, labs, appropriate images and studies, documentation, and patient care coordination. This time excludes separately billable procedures. DAYRON RUBIN MANAGER SYSTEM Jun 21, 2024 10:18
[2024-06-21 12:09] LABS: ABG HCO3 46.2 mmol/L (21.0-28.0); ABG OXYGEN SATURATION 89.9 % (94.0-98.0); ABG PCO2 75 mmHg (32-45); ABG PH 7.407 (7.350-7.450); VENT MODE, BG AC-PC IP23 (ROOM AIR)
[2024-06-21 12:22] LABS: CREATININE 0.4 mg/dL (0.5-1.0); POTASSIUM 5.3 mmol/L (3.5-5.1)
[2024-06-21 12:23] LABS: INR 0.97 (0.85-1.15); PROTHROMBIN TIME 10.9 SEC (9.6-11.6)
--- NOTE | 2024-06-21 14:09 | HMCIMG ---
Exam Type: CHEST 1VW Clinical Information: picc line placement Comparison: None Findings: Pulmonary pattern is as before. No worrisome interval changes have taken place. Impression: Stable exam.
--- NOTE | 2024-06-21 15:18 | NUR ---
Nutrition f/u Reviewed labs, notes, and medications. Pt intubated and sedated, poor prognosis, labia ulcer per chart review. Wt via bed scale, OGT in place, last BM 06/11/24, mild pitting, lactulose given via OGT, Vital AF 1.2 @ 45 ml/hr per nursing. MAP @ 101, TF off during visit. Provide vital 1.0 if Vital AF 1.2 not available. Continue trickle feeds of Vital 1.0 @25 ml/hr + 250 Q4H provides: 550kcals, 22 gm pro, 1963 ml per day. Meets: 30% of patients caloric needs, 36% of patients protein needs. Continue trickle feeds of Vital AF 1.2 if Pt on pressors and CO2 elevated. Provide goal rate of Vital AF 1.2 @ 50 ml/hr x 22 hrs once Pt off pressors, CO2 WNL, not on prone position goal rate to provide 77% of kcal needs, 100% of protein needs, Monitor extubation and position of patient. Recommendations: -Provide goal rate Vital AF 1.2 @ 50 ml/hr x 22 hrs + 150 Q4H ONCE MEDICALLY FEASIBLE Provides: 1320 kcals, 82 gm pro, 1492 ml per day -Monitor BM -If no BM >3 days consider stool softener -Monitor electrolytes -Replenish electrolytes per protocol -Monitor wts -Reweigh as able -Provide vit. D supplement per vit. D 9.1 -Provide b-complex QD -Monitor TF tolerance + need for TF adjustment -Monitor goals of care RD to follow + available for consult per protocol Addendum: 06/21/24 at [address] Amended: Links added.
--- NOTE | 2024-06-21 22:10 | PN ---
INFECTIOUS DISEASE PROGRESS NOTE Date of Service: Jun 21, 2024 SUBJECTIVE: This is a 49-year-old female patient who was admitted with chief complaint of shortness of breaths. A chest x-ray done on admission showed left lower lung pneumoniae. A CT chest showed bilateral pulmonary infiltrates but no evidence of PE. 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 Patient was seen and examined at bedside in the ICU room 208. Patient continues intubated and on sedation and FiO2 of 90%. Per report tolerating tube feedings well. No nausea or vomiting. Continues on Meropenem, Bactrim IV, ganciclovir IV and fluconazole. No family member present at bedside. We will continue to follow patient's care. PHYSICAL EXAM EYES: Anicteric. Pupils equal and reactive. HENT: No oral thrush seen, moist Oral mucosa. NG tube. Oropharyngeal lesions. NECK: Supple, no JVD or thyromegaly. RESPIRATORY: Mechanical ventilation.. CARDIOVASCULAR: S1, S2 regular. No murmur heard. ABDOMEN: Soft, non tender, bowel sounds present, no organomegaly. CENTRAL NERVOUS SYSTEM: Intubated. SKIN: No rashes, no swelling. LYMPHATICS: No peripheral lymphadenopathy. MUSCULOSKELETAL: No joint swelling, erythema or tenderness. EXTREMITIES: No cyanosis or clubbing. BACK: No deformity, no pressure ulcer. GENITOURINARY: No dysuria or hematuria. Souza catheter. Vital Sign (Last 12 Hours) 06/21/24 06/21/24 06/21/24 06/21/24 10:53 11:00 12:00 12:00 Temp 97.0 Pulse 107 98 Resp 30 8 B/P (MAP) 119/66 (83) Pulse Ox 93 93 O2 Delivery Ventilator+ FiO2 90 06/21/24 06/21/24 06/21/24 06/21/24 12:00 12:12 12:31 13:00 Temp 97.0 Pulse 103 103 103 Resp 20 41 B/P (MAP) 115/65 (82) 137/80 (99) 151/67 (95) Pulse Ox 91 93 FiO2 90 90 06/21/24 06/21/24 06/21/24 06/21/24 14:00 14:47 14:49 15:00 Pulse 101 100 99 96 Resp 14 30 21 B/P (MAP) 142/79 (100) 129/71 (90) 123/87 (99) Pulse Ox 93 94 FiO2 90 06/21/24 06/21/24 06/21/24 06/21/24 16:00 16:00 16:00 17:00 Temp 97.0 97.0 Pulse 101 95 Resp 20 31 B/P (MAP) 126/71 (89) 126/68 (87) 140/82 (101) Pulse Ox 91 96 94 O2 Delivery Ventilator+ FiO2 90 06/21/24 06/21/24 06/21/24 06/21/24 17:00 18:00 18:22 18:22 Pulse 96 102 99 Resp 20 32 B/P (MAP) 121/66 (84) 113/72 (86) Pulse Ox 91 FiO2 90 90 06/21/24 06/21/24 06/21/24 06/21/24 19:00 20:00 20:00 20:57 Temp 98.8 97.2 Pulse 101 103 Resp 11 7 B/P (MAP) 158/83 (108) 122/71 (88) 128/66 (86) Pulse Ox 96 95 FiO2 90 06/21/24 06/21/24 21:00 21:39 Pulse 101 104 Resp 7 B/P (MAP) 133/76 (95) Pulse Ox 95 FiO2 90 Intake & Output (last 24hrs) 06/20/24 06/20/24 06/21/24 15:00 23:00 07:00 Intake Total 1380.0 ml 1880.0 ml 680.0 ml Output Total 1900 ml 900 ml 1600 ml Balance -520.0 ml 980.0 ml -920.0 ml LABS: Laboratory: Test 06/21/24 16:57 06/21/24 12:07 06/21/24 11:50 06/21/24 09:21 Range/Units Whole Blood Glucose 235 H 70-110 MG/DL Blood Gas Specimen Type Arterial Arterial Blood pH 7.407 7.350-7.450 Arterial Blood Partial Pressure CO2 75 *H 32-45 mmHg Arterial Blood Partial Pressure O2 60.0 L 83.0-108.0 mmHg Arterial Blood HCO3 46.2 H 21.0-28.0 mmol/L Arterial Blood Oxygen Saturation 89.9 L 94.0-98.0 % Arterial Blood Base Excess 17.0 H -2.0-3.0 mmol/L Blood Gas Temperature 37.0 35.5-37.0 CELSIUS Blood Gas Respiration Rate 30.0 min. Blood Gas Vent Mode AC-PC IP23 ROOM AIR FiO2 90.0 % Blood Gas PEEP 8 cm H2O Blood Gas Specimen Comment A-LINE PAL Prothrombin Time 10.9 9.6-11.6 SEC Prothromb Time International Ratio 0.97 0.85-1.15 Sodium Level 131 L 136-145 mmol/L Potassium Level 5.3 H 3.5-5.1 mmol/L Chloride Level 91 L 101-111 mmol/L Carbon Dioxide Level 44 #*H 21-32 mmol/L Blood Urea Nitrogen 25 H 7-18 mg/dL Creatinine 0.4 L 0.5-1.0 mg/dL Glomerular Filtration Rate Calc 121 >90 mL/min Random Glucose 232 H 70-105 mg/dL Total Calcium 7.6 L 8.5-10.1 mg/dL Blood Gas Tidal Volume 375 ml Test 06/21/24 04:32 06/20/24 17:20 06/20/24 12:00 06/20/24 04:21 Range/Units White Blood Count 5.0 4.8-10.8 K/uL Red Blood Count 2.88 L 4.00-5.50 MIL/uL Hemoglobin 9.6 L 12.0-16.0 g/dL Hematocrit 28.4 L 36-48 % Mean Corpuscular Volume 98.6 79-99 fL Mean Corpuscular Hemoglobin 33.3 H 27.0-33.0 pg Mean Corpuscular Hemoglobin Concent 33.8 32.0-36.0 g/dL Red Cell Distribution Width 12.3 11.0-15.5 % Platelet Count 121 L 130-400 K/uL Mean Platelet Volume 10.7 H 7.5-10.5 fL Nucleated Red Blood Cells 0.0 0.0-0.19 % Magnesium Level 2.10 1.80-2.40 mg/dL Total Bilirubin 0.3 0.2-1.0 mg/dL Aspartate Amino Transf (AST/SGOT) 83 H 10-37 U/L Alanine Aminotransferase (ALT/SGPT) 160 H 12-78 U/L Alkaline Phosphatase 116 50-136 U/L Total Protein 4.8 L 6.0-8.3 g/dL Albumin 1.5 L 3.5-5.0 g/dL Hemoglobin (Blood Gas) 10.4 L 12.0-16.0 g/dL Sodium (Blood Gas) 130 L 136-145 MMOL/L Bedside Potassium (Blood Gas) 5.0 H 3.4-4.5 MMOL/L Bedside Chloride (Blood Gas) 89 *L 98-107 MMOL/L Bedside Glucose (Blood Gas) 172 H 65-95 MG/DL Bedside Ionized Calcium (Blood Gas) 1.12 L 1.15-1.33 MMOL/L Bedside Lactic Acid (Blood Gas) 1.40 H 0.36-0.75 MMOL/L Bedside Glucose Comment Notified Nurse Immature Granulocyte % (Auto) 1.7 H 0-1 % Neutrophils (%) (Auto) 94.0 H 40.0-77.0 % Lymphocytes (%) (Auto) 2.6 L 21.0-51.0 % Monocytes (%) (Auto) 1.5 L 3.0-13.0 % Eosinophils (%) (Auto) 0.0 0.0-8.0 % Basophils (%) (Auto) 0.2 0.0-5.0 % Neutrophils # (Auto) 4.3 1.8-7.7 K/uL Lymphocytes # (Auto) 0.1 L 1.0-4.8 K/uL Monocytes # (Auto) 0.1 0.1-1.0 K/uL Eosinophils # (Auto) 0.00 0.00-0.70 K/uL Basophils # (Auto) 0.01 0.00-0.20 K/uL Absolute Immature Granulocyte (auto 0.08 0-1 K/uL ASSESSMENT: Acute hypoxic respiratory failure, s/p intubated on 06/11/2024. Pneumocystis carinii pneumonia. Positive for Cytomegalovirus. Positive HIV test. Infection with methicillin-resistant Staphylococcus aureus. Leukocytosis, resolved. Obesity. Oral candidiasis. Anemia. PLAN: Continue Ganciclovir IV for 14 days. Continue Bactrim. Continue Meropenem as currently ordered. Continue fluconazole p.o. Continue critical care support. Continue mechanical ventilation support. Continue steroids. Continue GI prophylaxis. Continue DVT prophylaxis. This case was reviewed and discussed with my supervising physician and the above assessment and plan was formulated and agreed upon. ATTESTATION BY PHYSICIAN I have seen and examined the patient. I reviewed the documentation, medical dec ision making, and treatment plan as noted by the mid-level provider above. I agree with the findings and plan of care. [place] MD, [facility] Jun 21, 2024 22:09
[2024-06-22] VITALS (38 sets, daily range): BP systolic 96–211; BP diastolic 54–111; PULSE 91–123; RESP 6–35; TEMP 97.2–98.1; O2SAT 95–98
[2024-06-22 03:24] LABS: ABG BASE EXCESS 17.3 mmol/L (-2.0-3.0); ABG HCO3 46.7 mmol/L (21.0-28.0); ABG OXYGEN SATURATION 93.7 % (94.0-98.0); ABG PCO2 88 mmHg (32-45); ABG PH 7.342 (7.350-7.450); CARBON MONOXIDE 0.5 % (0.5-1.5); HHb 6.2; PO2, ARTERIAL BG 76.2 mmHg (83.0-108.0); VENT MODE, BG PCVC IP23 (ROOM AIR)
[2024-06-22] MEDS: BACTRIM IV SCH (06:25)
[2024-06-22] MEDS: DEXTROSE 5% IV SCH (06:25)
[2024-06-22] MEDS: WATER IV SCH (06:25)
[2024-06-22 07:36] LABS: ABG BASE EXCESS 13.1 mmol/L (-2.0-3.0); ABG HCO3 41.7 mmol/L (21.0-28.0); ABG OXYGEN SATURATION 94.9 % (94.0-98.0); ABG PCO2 70 mmHg (32-45); DEVICE COMMENT RN LEO; PO2, ARTERIAL BG 77.7 mmHg (83.0-108.0); VENT MODE, BG PC 23 (ROOM AIR)
[2024-06-22 08:22] LABS: BASOPHILS # (AUTO) 0.01 K/uL (0.00-0.20); BASOPHILS % (AUTO) 0.2 % (0.0-5.0); HEMATOCRIT 29.2 % (36-48); IMMATURE GRANULOCYTE ABSOLUTE 0.08 K/uL (0-1); LYMPHOCYTES # (AUTO) 0.2 K/uL (1.0-4.8); LYMPHOCYTES % (AUTO) 2.7 % (21.0-51.0); MEAN CORPUSCULAR HGB CONC 33.6 g/dL (32.0-36.0); MEAN CORPUSCULAR VOLUME 98.3 fL (79-99); MONOCYTES # (AUTO) 0.2 K/uL (0.1-1.0); MONOCYTES % (AUTO) 2.5 % (3.0-13.0); NEUTROPHILS # (AUTO) 5.5 K/uL (1.8-7.7); NEUTROPHILS % (AUTO) 93.2 % (40.0-77.0); PLATELET COUNT (AUTO) 127 K/uL (130-400); RED BLOOD CELL COUNT(AUTO) 2.97 MIL/uL (4.00-5.50); RED CELL DISTRIBUTION WIDTH 12.6 % (11.0-15.5); WHITE BLOOD COUNT (AUTO) 5.9 K/uL (4.8-10.8)
[2024-06-22] MEDS: polyETHYLene GLYCol 3350 17 GM POWD.PACK PO SCH (08:32)
[2024-06-22 09:12] LABS: ALBUMIN 1.6 g/dL (3.5-5.0); BILIRUBIN,TOTAL 0.2 mg/dL (0.2-1.0); CREATININE 0.5 mg/dL (0.5-1.0); POTASSIUM 5.5 mmol/L (3.5-5.1); TOTAL PROTEIN, SERUM 4.8 g/dL (6.0-8.3)
--- NOTE | 2024-06-22 11:56 | PN ---
[facility] PROGRESS NOTE Date of Service: Jun 22, 2024 Time of Service: 11:55 SUBJECTIVE: [ ] Ms. Abdullahi is a 49-year-old female that was seen and examined today on 05/23/2024. Patient is a good historian and personal health. Patient's son Dagoberto Salcido is at bedside. Patient states that she came to the emergency department with a chief complaint of shortness of breath. Onset was two weeks ago. Location is to lungs. Duration is on and off. Character is described as "easily running out of air." Initially shortness and breath was only aggravated with climbing one or two flights of stairs but symptoms have progressively worsened and patient becomes short of breath even standing or walking short distances. There was no alleviating factors however previously symptoms were being controlled with daily morning albuterol nebulizer treatments. Patient denies any associated chest pain or dizziness. Patient reports an episode of COVID in December 2023. emergency department CBC unremarkable, chemistry unremarkable, urinalysis unremarkable, influenza screen negative, COVID negative, blood gas shows PO2 less than 45. Chest x-ray shows left lower lung pneumonia and minimal right lung base atelectasis. Upon arrival to the emergency department patient was placed on a BiPAP due to respiratory distress. 05/24/2024-patient was seen and examined at the bedside, still on BiPAP. Patient is able to speak, and says she feels much better than before. Patient says after COVID in December she developed severe bronchitis and she was on Solu-Medrol and albuterol, which did not help her much and later she had high fevers and shortness of breath which is when she came to the ED.Vitals afebrile pulse 76, RR 38 tachypneic , blood pressure 115/68, pulse oxygen 99 on BiPAP flow of 60. On ABG pH 7.47, pCO2 29, PO2 109.4, oxygen saturation 98.3. [id number] potassium 4.1 BUN15 creatinine 0.5 GFR 114. We will closely monitor the patient. Superintendent Pier consult noted waiting on the recommendation 05/25/24 patient was seen and examined and case discussed with RN and family by the bedside. She was breathing better today. She has been on BiPAP all night but now he was on 100% non-rebreather with further efforts to continue to wean the oxygen requirements down. 05/27/24 patient is seen and examined at bedside, acute events overnight, case discussed with the RN, BP 131/64, afebrile, saturating 96-97% via Ventimask, FiO2 40%. The patient admits cough productive of clear phlegm. Serology tests reviewed, HIV preliminary positive, discussed with the patient. 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 We will continue the patient on IV antibiotics, continue fluconazole, continue to follow Pulmonary and ID input and recommendations. After provided in the preliminary results of HIV test, she denies any suicidal or homicidal ideations. 05/28 patient has been seen and examined, no acute events overnight, case discussed with the RN, during my visit patient is sitting comfortably in the chair, hemodynamically stable, off Ventimask, currently on 10 L via nasal cannula, saturating 98%, tolerated BiPAP overnight. she feels better, less shortness a breath, still admits cough productive of yellow phlegm. No chest pain. Getting IV antibiotics during my visit. HIV P24 antigen, nonreactive. We will continue to follow Pulmonary and Infectious Disease input and recommendations. 05/29 patient has been seen and examined, no acute events overnight, case discussed with the RN, during my visit patient is sitting comfortably in the chair, hemodynamically stable, remains on 10 L via nasal cannula, saturating 98%, still admits cough productive of yellow phlegm. No chest pain. Getting IV antibiotics during my visit. HIV P24 antigen, nonreactive. Pending CD4 cell count. We will continue to follow Pulmonary and Infectious Disease input and recommendations. 05/30 the patient has been seen and examined, no acute events overnight, BP 114/66, during my visit she is on Ventimask, saturating 95%, FiO2 60%. Without the Ventimask the patient desaturates to the low 70s. Patient tolerating BiPAP during the night. Still admits cough productive of thick yellow phlegm, no chest pain. Results of CD4 cell count reviewed, discussed with the patient. We will continue broad-spectrum IV antibiotics. Continue to follow Pulmonary and Infectious Disease input and recommendations. 05/31 the patient has been seen and examined, upgraded to the ICU, during my visit she is sitting in the chair, BP 113/72, heart rate of 109, she is on Oxymizer, 30 L, FiO2 100%. She is alert oriented x3, still admits cough productive of thick yellow phlegm, no chest pain. Hemoglobin 12.9, hematocrit 36.6, WBC 14.6. ABG with pH 7.4, pCO2 40, PO2. Chest x-ray shows left lower lo be infiltrate consistent with pneumonia. She is getting IV antibiotics during my visit. Patient will remain in the ICU, continue to follow critical Care as well as infectious disease input and recommendations. 06/01 patient is seen and examined, sitting comfortable in chair, awake, following commands, remains on high-flow oxygen, FiO2 70%, 30 L, BP 117/67, heart rate of 78, respiratory rate of 30-36, saturating 100%, CBC with a hemoglobin 13.6, hematocrit 38.9, WBC 12.4. Platelet count of 341. Chest x-ray showing persistent left lung infiltrate, cardiac size and mediastinum unremarkable. The bony structures are within the normal limits. Patient getting IV antibiotics during my visit. Patient to continue with the high-dose steroids. Serology test positive for Pneumocystis sandra. Patient on Bactrim two tablets p.o. t.i.d.. Continue also doxycycline and cefepime IV. Continue to follow infectious disease input and recommendation. Continue to follow Pulmonary input and recommendations. 06/02 patient is seen and examined at bedside, currently in prone position, alert oriented x3. CPT started last night, she has started having more loose phlegm expectorated. BP 114/74, tachycardic 114, saturating 95%, high-flow nasal cannula, 30 L, FiO2 80%. CBC with a hemoglobin 16.9, hemoglobin 14 0, hematocrit 39.8, platelet count 347. Chest x-ray shows persistent left lung infiltrate. 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 Serology test for toxoplasma currently pending. Patient on IV antibiotics as well as high-dose steroids. Continue to follow infectious Disease and Pulmonary input and recommendations. 06/03 patient seen at bedside, no acute events overnight. She continues with respiratory distress, with increasing oxygen requirements. Critical Care has discussed a possible need for intubation if she does not improve. She has been started on steroids due to underlying PCP pneumonia. WBC improved from 16.9 down to 13.5, sodium stable at 132, same as yesterday, lactic acid downtrending from 4.1 down to 3.2, remainder of her labs are relatively unremarkable. 06/04 patient seen at bedside, no acute events overnight. She remains on high- flow nasal cannula, mildly tachycardic. WBC elevated at 13.3, sodium decreased from 132 down to 129, remainder of her labs are relatively unremarkable. Continue to wean supplemental oxygen. Further care per critical Care 06/05 patient seen at bedside, no acute events overnight. She remains on high- flow nasal cannula with BiPAP overnight and is still tachycardic. Heart rate ranging from 104 up to 113, WBC improved from 13.3 down to 11.1, sodium decreased from 120 down to 126, remainder of her labs are relatively unremarkable. We will continue to wean oxygen as able. 06/06 Patient seen at bedside, no acute events overnight. She remains on high- flow nasal cannula with BiPAP overnight and is still tachycardic. Heart rate ranging from 104 up to 122, WBC improved from 11.1 down to 10.6, sodium improved from 126 up to 129, remainder of her labs are relatively unremarkable. We will continue to wean oxygen as able. 06/07 patient seen at bedside, no acute events overnight. She is still on high- flow nasal cannula, RT advised to wean oxygen, currently saturating 100% on 30L. She is tachycardic, sodium decreased from 129 down to 123, likely secondary to Bactrim. Patient is asymptomatic, will continue with bactrim, if sodium continues to decrease consider a holiday from bactrim. 06/08 patient seen at bedside, no acute events overnight. She is still on high- flow nasal cannula, RT advised to wean oxygen, currently saturating 100% on 30L. She is tachycardic, sodium stable at 123, same as yesterday. Pending improvement in respiratory status 06/09 patient seen at bedside, he remains on high-flow nasal cannula, we will continue to wean as able, appreciate pulmonology assistance, tachycardic with heart rate ranging from 123 up to 130. She is still having low-grade fevers at 100.8. Sodium increased from 123 up to 130, remainder of her labs are relatively unremarkable. 06/10 patient is seen and examined at bedside, remains on high-flow oxygen, she feels mildly anxious, no chest pain. Still with a cough productive of white phlegm. Still tachycardic, heart rate 117-122. Patient is still spiking low- grade fever. Hemoglobin 10.9, hematocrit 30.5. Sodium remained low at 128, BUN and creatinine of 16 and 0.4. 06/11 patient is seen and examined at bedside, patient now on AVAPS, FiO2 100%, patient became restless last night, she had to be started on Precedex. During my visit she remains alert oriented x3, no chest pain. BP 120/48, she is saturating 100%. Hemoglobin 10 point, hematocrit 31.3. ABG shows persistent hypoxemia, with a PO2 of 69.4. Chest x-ray shows extensive infiltrates on the left which is stable to somewhat increased, there has been interval development of perihilar infiltrate on the right. Normal bilateral lower extremity venous Doppler ultrasound. Continue the patient on prednisone 20 mg p.o. daily, continue Bactrim two tablets p.o. t.i.d. as well as fluconazole 100 mg p.o. daily. 06/12 patient is seen and examined at bedside, intubated, on mechanical ventilation, per discussion with the RN, patient was in respiratory distress yesterday, decision made to intubate the patient. During my visit the patient is midazolam, fentanyl, patient paralyzed, also on Nimbex. She is in a prone position. On pressor support with phenylephrine. Also on Precedex. She is also on hydrocortisone 100 mg IV q.8 hours. Son at bedside, updated. ABG shows pH 7.38, pCO2 47, PO2 122, bicarb of 27.7. 06/13 patient is seen and examined at bedside, remains intubated, on mechanical ventilation, remains on midazolam, fentanyl, patient paralyzed, also on Nimbex. She is in a prone position. On BP pressor support with phenylephrine. Patient is peep of seven. ABG pH 7.34, PO2 72.3. Chest x-ray reviewed, increasing bilateral infiltrates, increasing pneumomediastinum. 06/14 patient is seen and examined at bedside, remains intubated, on mechanical ventilation, prone position, remains on midazolam, fentanyl, patient paralyzed, also on Nimbex. She is in a prone position. Off pressors. Patient is peep of seven. ABG pH 7.34, PO2 72.3. Chest x-ray shows extensive bilateral infiltrates unchanged, no pneumothorax. 06/15 patient is seen and examined at bedside, remains intubated, on mechanical ventilation, prone position, remains paralyzed, on Nimbex. Off pressors. Patient is peep of 10. ABG pH 7.34, PO2 72.3. Chest x-ray shows extensive bilateral infiltrates unchanged, no pneumothorax. Overall condition remains unchanged. No family at bedside. 06/16 patient is seen and examined at bedside, remains intubated, on mechanical ventilation, discussed with the RN, the patient has been placed on supine position. Patient remains on pressor support. Remains on sedation with midazolam and fentanyl BP 114/60, afebrile saturating 96% FiO2 100%, peep of 8. ABG today with pCO2 63, PO2 91.5. Chest x-ray with severe consultation both lungs, unchanged, interval development of pneumomediastinum, moderate to severe. Continue Solu-Medrol 80 mg IV q.8 hours, continue broad-spectrum antibiotics with meropenem 1 g IV q.8 hours, the patient remains on Bactrim. Continue g anciclovir. 2 patient seen at bedside, no acute events overnight. She remains intubated, paralyzed on FiO2 of 100% and PEEP of eight. Continue to try to wean towards extubation. Chest x-ray appears mildly improved from yesterday. She remains supine. Hemoglobin improved from 8.4 up to 8.6, platelets decreased from 121 down to 112, CO2 elevated at 41, same as yesterday, remainder of her labs are relatively unremarkable. Patient is still critical with poor prognosis continue further care per critical care team. 2 patient seen at bedside, no acute events overnight. She remains intubated and sedated, critical care weaning patient off paralyzing agents. She is still on FiO2 of 100% with PEEP of eight, PO2 on ABG 70.8 down from 80.5 yesterday demonstrating a worsening and her oxygenation within her blood at the same ventilator settings. PCO2 increased from 70 up to 75. Hemoglobin improved from 8.6 up to 9.0, platelets improved from 112 up to 127, CO2 increased from 41 up to 45, remainder of her labs are relatively unremarkable. 2 patient seen at bedside, no acute events overnight. She remains intubated and sedated, critical Care to continue trying to wean to extubation. Continue current care further recommendations per critical Care 06/20 patient is seen and examined at bedside, no acute events overnight, she remains intubated, on mechanical ventilation, off vasopressors, sedated with fentanyl and Versed, the patient on peep of 8, saturating 97%. 06/21 patient seen at bedside, no acute events overnight. She remains intubated, paralyzed on FiO2 of 100% and PEEP of eight. Continue to try to wean towards extubation. She remains supine. Chest x-ray stable. Hemoglobin at 8.6, hematocrit 28.4. remainder of her labs are relatively unremarkable. Patient is still critical with poor prognosis continue further care per critical care team. 06/22 06/21 patient seen at bedside, no acute events overnight. She remains intubated, paralyzed on FiO2 of 100% and PEEP of eight. Continue to try to wean towards extubation. She remains supine. Chest x-ray stable. Patient is still critical with poor prognosis continue further care per critical care team. REVIEW OF SYSTEMS 12 point review of systems negative unless noted in HPI PHYSICAL EXAM GENERAL APPEARANCE: Patient intubated, on mechanical ventilation. NEUROLOGICAL: Cranial nerves II-XII grossly intact. Motor is 5/5 in bilateral upper and lower extremities proximal to distal. No sensory deficits. HEENT: Face is symmetric. Pupils are equal and reactive. Extraocular movements are intact. NECK: Supple. No JVD. No thyromegaly. No submental, submandibular, pre- /postauricular, occipital or supraclavicular lymphadenopathy. CHEST: Normal chest expansion. No Telemetry. LUNGS: Bilateral rhonchi, no expiratory wheezing CARDIOVASCULAR: Regular. S1 and S2 normal. No appreciable rubs, murmurs or gallops. ABDOMEN: Soft, nontender, and nondistended. There is no rebound, voluntary guarding, or rigidity. : Deferred. No Souza. EXTREMITIES: Non-edematous and not cyanotic. No clubbing. Good capillary ref ill. SKIN: No skin breakdown. Vital Signs (last 8hr) Date Time Temp Pulse Resp B/P (MAP) Pulse Ox O2 Delivery O2 Flow Rate FiO2 06/22/24 11:00 97 11 128/74 (92) 96 06/22/24 10:00 111 11 148/80 (102) 95 158/87 (110) 06/22/24 09:28 101 90 06/22/24 09:00 90 06/22/24 09:00 113 169/90 (116) 99 162/98 (119) 06/22/24 08:00 97.5 06/22/24 08:00 97.9 104 6 125/70 (88) 97 142/81 (101) 06/22/24 08:00 98 Ventilator+ 90 06/22/24 07:00 99 8 119/67 (84) 98 06/22/24 06:58 103 90 06/22/24 06:57 103 33 06/22/24 06:00 107 9 126/72 (90) 95 127/77 (94) 06/22/24 05:00 104 30 147/82 (103) 95 06/22/24 04:57 90 06/22/24 04:00 96 Ventilator+ 90 06/22/24 04:00 97.5 06/22/24 04:00 97 30 137/73 (94) 96 138/81 (100) LABS: Laboratory: Test 06/22/24 11:13 06/22/24 07:50 06/22/24 07:34 06/22/24 03:22 Range/Units Whole Blood Glucose 206 H 70-110 MG/DL White Blood Count 5.9 4.8-10.8 K/uL Red Blood Count 2.97 L 4.00-5.50 MIL/uL Hemoglobin 9.8 L 12.0-16.0 g/dL Hematocrit 29.2 L 36-48 % Mean Corpuscular Volume 98.3 79-99 fL Mean Corpuscular Hemoglobin 33.0 27.0-33.0 pg Mean Corpuscular Hemoglobin Concent 33.6 32.0-36.0 g/dL Red Cell Distribution Width 12.6 11.0-15.5 % Platelet Count 127 L 130-400 K/uL Mean Platelet Volume 10.5 7.5-10.5 fL Immature Granulocyte % (Auto) 1.4 H 0-1 % Neutrophils (%) (Auto) 93.2 H 40.0-77.0 % Lymphocytes (%) (Auto) 2.7 L 21.0-51.0 % Monocytes (%) (Auto) 2.5 L 3.0-13.0 % Eosinophils (%) (Auto) 0.0 0.0-8.0 % Basophils (%) (Auto) 0.2 0.0-5.0 % Neutrophils # (Auto) 5.5 1.8-7.7 K/uL Lymphocytes # (Auto) 0.2 L 1.0-4.8 K/uL Monocytes # (Auto) 0.2 0.1-1.0 K/uL Eosinophils # (Auto) 0.00 0.00-0.70 K/uL Basophils # (Auto) 0.01 0.00-0.20 K/uL Absolute Immature Granulocyte (auto 0.08 0-1 K/uL Nucleated Red Blood Cells 0.0 0.0-0.19 % Sodium Level 131 L 136-145 mmol/L Potassium Level 5.5 H 3.5-5.1 mmol/L Chloride Level 90 *L 101-111 mmol/L Carbon Dioxide Level 47 *H 21-32 mmol/L Blood Urea Nitrogen 31 H 7-18 mg/dL Creatinine 0.5 0.5-1.0 mg/dL Glomerular Filtration Rate Calc 114 >90 mL/min Random Glucose 237 H 70-105 mg/dL Total Calcium 7.7 L 8.5-10.1 mg/dL Total Bilirubin 0.2 0.2-1.0 mg/dL Aspartate Amino Transf (AST/SGOT) 52 H 10-37 U/L Alanine Aminotransferase (ALT/SGPT) 140 H 12-78 U/L Alkaline Phosphatase 115 50-136 U/L Total Protein 4.8 L 6.0-8.3 g/dL Albumin 1.6 L 3.5-5.0 g/dL Blood Gas Specimen Type Arterial Arterial Blood pH 7.390 7.350-7.450 Arterial Blood Partial Pressure CO2 70 *H 32-45 mmHg Arterial Blood Partial Pressure O2 77.7 L 83.0-108.0 mmHg Arterial Blood HCO3 41.7 H 21.0-28.0 mmol/L Arterial Blood Oxygen Saturation 94.9 94.0-98.0 % Arterial Blood Base Excess 13.1 H -2.0-3.0 mmol/L Blood Gas Temperature 37.0 35.5-37.0 CELSIUS Blood Gas Respiration Rate 34.0 min. Blood Gas Vent Mode PC 23 ROOM AIR FiO2 90.0 % Blood Gas PEEP 8 cm H2O Blood Gas Specimen Comment RN PAL Hemoglobin (Blood Gas) 11.2 L 12.0-16.0 g/dL Sodium (Blood Gas) 130 L 136-145 MMOL/L Bedside Potassium (Blood Gas) 5.4 H 3.4-4.5 MMOL/L Bedside Chloride (Blood Gas) 83 *L 98-107 MMOL/L Bedside Glucose (Blood Gas) 184 H 65-95 MG/DL Bedside Ionized Calcium (Blood Gas) 1.12 L 1.15-1.33 MMOL/L Bedside Lactic Acid (Blood Gas) 1.50 H 0.36-0.75 MMOL/L Test 06/21/24 11:50 06/21/24 09:21 06/21/24 04:32 06/20/24 12:00 Range/Units Prothrombin Time 10.9 9.6-11.6 SEC Prothromb Time International Ratio 0.97 0.85-1.15 Blood Gas Tidal Volume 375 ml Magnesium Level 2.10 1.80-2.40 mg/dL Bedside Glucose Comment Notified Nurse Current Medications Medications (Trade) Dose Ordered Sig/Julita Route PRN Reason Start Time Stop Time Status Last Admin Dose Admin Acetaminophen (TYLenol 650MG ELIXIR) 650 mg Q6H PRN PO MILD PAIN (1-3) 06/04/24 08:30 07/04/24 08:29 06/10/24 20:07 650 MG Acetaminophen (TYLenol 650MG SUPPOSITORY) 650 mg Q6H PRN RC MILD PAIN (1-3) 05/23/24 20:30 06/22/24 20:29 Acetylcysteine (MUComyst 20% 4ML) 400mg = 2ml [id number] IH 06/02/24 00:00 06/05/24 15:52 DC 06/05/24 11:35 200 MG Albuterol (DUOneb) 1 udvial [id number] IH 05/24/24 00:00 06/10/24 10:28 DC 06/10/24 06:45 1 UDVIAL Alprazolam (XANax 0.5MG) 0.5 mg Q8H PRN PO ANXIETY 06/10/24 13:30 07/10/24 13:29 06/11/24 05:22 0.5 MG Artificial Tears (Artificial Tears) 1 DROP OR AD Q8H OU 06/11/24 14:30 2/27/25 14:29 06/22/24 06:29 1 DROP Azithromycin 250 ml @ 250 mls/hr Q24H IVPB 05/24/24 17:00 05/24/24 14:41 DC Azithromycin 250 ml @ 250 mls/hr Q24H STAT IVPB 05/23/24 17:17 05/24/24 14:41 DC 05/23/24 17:45 250 MLS/HR Benzocaine (Cepacol Sore Throat Lozenge) 1 each Q4H PRN MM SORE THROAT 06/08/24 10:00 07/08/24 09:59 06/09/24 07:44 1 EACH Bisacodyl (DulcoLAX) 10 mg DAILY PRN RC CONSTIPATION 06/08/24 14:00 07/08/24 13:59 06/19/24 11:41 10 MG Cadexomer Iodine (Iodosorb Gel 40gm) 1 APPL TO RIGHT FAC... DAILY TP 06/19/24 09:00 07/18/24 08:59 06/22/24 08:34 1 APPL Cadexomer Iodine (Iodosorb Gel 40gm) 1 appl DAILY TP 06/18/24 09:00 06/19/24 07:23 DC 06/18/24 14:09 1 APPL Cefepime HCl (MAXipime 2 gm vial) 2 gm Q12H IVPB 05/24/24 15:00 06/03/24 14:59 DC 06/03/24 03:18 2 GM Ceftriaxone Sodium (ROCEphine 1G INJ) 1 gm Q24H IVPB 05/24/24 17:30 05/24/24 14:41 DC Chlorhexidine Gluconate (Peridex) 15 ml Q6H MM 06/07/24 17:00 06/11/24 14:27 DC 06/10/24 12:22 15 ML Chlorhexidine Gluconate (Peridex) 15 ml Q8H MM 06/11/24 14:30 06/25/24 14:29 06/22/24 06:29 15 ML Cisatracurium Besylate (Nimbex) ONCE IVP 06/11/24 14:30 06/11/24 15:57 DC Cisatracurium Besylate 100 mg/ Sodium Chloride 100 ml @ 0 mls/hr PROTOCOL IV 06/11/24 23:30 07/11/24 23:29 06/17/24 09:27 14.94 MLS/HR Clotrimazole (Mycelex) 10 mg TID MM 06/04/24 21:00 06/14/24 08:39 DC 06/13/24 20:28 10 MG Dexmedetomidine/ Sodium Chloride (PRECEdex 400MCG/ 100ML-NS) 400 mcg PROTOCOL IV 06/10/24 19:30 07/10/24 19:29 06/12/24 06:32 400 MCG Dobutamine HCl/ Dextrose 250 ml @ 0 mls/hr PROTOCOL IV 06/12/24 16:30 06/12/24 16:53 DC Doxycycline Hyclate 250 ml @ 125 mls/hr Q12H IV 05/24/24 16:30 06/03/24 16:29 DC 06/03/24 04:23 125 MLS/HR Enoxaparin Sodium (Lovenox 80mg) 40 mg DAILY SQ 06/15/24 09:00 06/15/24 09:30 DC Enoxaparin Sodium (Lovenox 80mg) 80 mg BID SQ 06/11/24 09:00 06/14/24 23:28 DC 06/14/24 20:33 80 MG Enoxaparin Sodium (Lovenox) 40 mg DAILY SQ 06/15/24 09:30 07/15/24 09:29 06/22/24 08:33 40 MG Enoxaparin Sodium (Lovenox) 40 mg Q24H SQ 05/23/24 21:00 06/11/24 04:36 DC 06/10/24 20:07 40 MG Famotidine (Pepcid 20mg Vial) 20 mg DAILY IV 05/24/24 09:00 06/14/24 08:39 DC 06/13/24 08:15 20 MG Fentanyl Citrate 2500 mcg/Sodium Chloride 250 ml @ 0 mls/hr AD PRN IV TITRATE 06/17/24 05:30 06/17/24 05:18 DC Fentanyl/Sodium Chloride 250 ml @ 0.1 mls/hr PROTOCOL IV 06/12/24 00:00 06/17/24 00:00 DC 06/16/24 17:36 0.1 MLS/HR Fentanyl/Sodium Chloride 250 ml @ 0 mls/hr AD PRN IV ICU SEDATION 06/17/24 05:30 06/22/24 05:29 DC 06/21/24 19:51 30 MLS/HR Fluconazole (DiFLUCan 100 mg TAB) 200 mg DAILY PO 06/05/24 09:00 07/05/24 08:59 06/22/24 08:32 200 MG Fluconazole/ Sodium Chloride 100 ml @ 100 mls/hr DAILY IV 05/26/24 09:00 05/27/24 15:57 DC 05/27/24 09:07 100 MLS/HR Furosemide (LASix 20MG VIAL) 20 mg DAILY IV 05/31/24 09:00 06/07/24 13:18 DC 06/03/24 08:38 20 MG Furosemide (LASix 20MG VIAL) 20 mg DAILY IV 06/17/24 10:00 06/17/24 12:13 DC 06/17/24 09:46 20 MG Furosemide (LASix 20MG VIAL) 20 mg Q12H IV 06/11/24 11:00 06/13/24 09:31 DC 06/12/24 21:54 20 MG Furosemide (LASix 20MG VIAL) 20 mg Q12H IV 06/17/24 22:00 06/18/24 10:01 DC 06/18/24 09:44 20 MG Furosemide (LASix 20MG VIAL) 20 mg Q8H IV 06/13/24 09:30 06/16/24 11:00 DC 06/16/24 08:44 20 MG Furosemide (LASix 20MG VIAL) 20 mg Q8H IV 06/19/24 17:00 07/19/24 16:59 06/22/24 08:30 20 MG Ganciclovir Sodium 430 mg/ Sodium Chloride 100 ml @ 100 mls/hr Q12H IV 06/13/24 09:00 07/13/24 08:59 06/22/24 08:29 100 MLS/HR Ganciclovir Sodium 500 mg/ Sodium Chloride 100 ml @ 100 mls/hr Q12H IV 06/11/24 18:00 06/11/24 15:48 DC Ganciclovir Sodium (Ganciclovir Sodium) 500 mg Q12H IV 06/12/24 17:00 06/13/24 08:35 DC Guaifenesin/ Dextromethorphan (RobiTUSSin DM 200/20MG 10ML) 10 ml Q4H PRN PO COUGH 05/23/24 20:30 06/22/24 20:29 06/10/24 20:07 10 ML Hydrocortisone Sodium Succinate (Solu-corTEF 100MG) 100 mg Q8H IV 06/11/24 05:00 06/14/24 08:39 DC 06/14/24 06:13 100 MG Hydroxyzine HCl (ATArax 25MG TAB) 25 mg TID PRN PO ITCHING 06/10/24 14:00 07/10/24 13:59 06/11/24 05:22 25 MG Insulin Human Regular (humuLIN R 100 UNIT/ML 3ML) INSULIN SLIDING SCAL... ACHS SQ 06/19/24 16:30 06/20/24 15:07 DC 06/20/24 12:30 5 UNIT Insulin Human Regular (humuLIN R 100 UNIT/ML 3ML) INSULIN SLIDING SCAL... Q6H6 SQ 06/20/24 18:00 07/19/24 16:29 06/22/24 06:29 3 UNIT Ipratropium [place] (AtrovENT UD) 0.5 MG [id number] IH 06/10/24 14:00 07/10/24 13:59 06/22/24 11:23 0.5 MG Lactated Ringer's (Lactated Ringers 1000ml) 500 ml ONCE IV 06/02/24 20:00 06/02/24 19:54 DC Levofloxacin/ Dextrose 100 ml @ 100 mls/hr Q24H IV 05/24/24 15:00 05/24/24 16:16 DC Magnesium Sulfate 50 ml @ 0 mls/hr PROTOCOL PRN IV hypomagnesemia 05/28/24 08:00 06/27/24 07:59 06/11/24 05:26 50 MLS/HR Meropenem (Merrem 1gm) 1 gm Q8H IVPB 06/13/24 15:00 06/18/24 21:57 DC 06/18/24 15:34 1 GM Meropenem (Merrem 1gm) 1 gm Q8H IVPB 06/19/24 01:00 06/21/24 00:59 DC 06/20/24 16:50 1 GM Meropenem (Merrem) 1 gm Q8H IVPB 06/11/24 15:00 06/13/24 11:52 DC 06/13/24 08:14 1 GM Meropenem 1 gm/ Sodium Chloride 100 ml @ 33.333 mls/ hr Q8H IV 06/11/24 14:30 06/11/24 14:28 DC Methylprednisolone Sodium Succinate (Solu-medROL 40MG) 20 mg Q12H IVP 06/05/24 07:00 06/09/24 09:13 DC 06/09/24 07:25 20 MG Methylprednisolone Sodium Succinate (Solu-medROL 40MG) 40 mg Q12H IVP 05/28/24 18:00 05/29/24 16:45 DC 05/29/24 05:32 40 MG Methylprednisolone Sodium Succinate (Solu-medROL 40MG) 40 mg Q6H IVP 05/29/24 16:30 06/04/24 16:44 DC 06/04/24 11:13 40 MG Methylprednisolone Sodium Succinate (Solu-medROL 40MG) 40 mg Q6H IVP 06/04/24 18:00 06/05/24 00:24 DC 06/04/24 23:48 40 MG Methylprednisolone Sodium Succinate (Solu-medROL 40MG) 40 mg Q8H IVP 05/24/24 01:00 05/25/24 21:51 DC 05/25/24 17:28 40 MG Methylprednisolone Sodium Succinate (Solu-medROL 40MG) 60 mg Q6H IVP 05/25/24 22:00 05/28/24 02:25 DC 05/27/24 23:55 60 MG Methylprednisolone Sodium Succinate (Solu-medROL 40MG) 60 mg Q6H IVP 05/28/24 06:00 05/28/24 08:27 DC 05/28/24 06:47 60 MG Methylprednisolone Sodium Succinate (Solu-medROL 40MG) 60 mg Q6H IVP 06/11/24 02:30 06/11/24 04:23 DC 06/11/24 02:46 60 MG Methylprednisolone Sodium Succinate (Solu-medROL 40MG) 80 mg Q8H IVP 06/14/24 17:00 07/14/24 08:59 06/22/24 08:32 80 MG Methylprednisolone Sodium Succinate (Solu-medROL 125MG) 80 mg Q8H IVP 06/14/24 09:00 06/14/24 14:53 DC 06/14/24 08:48 80 MG Metoclopramide HCl (regLAN 10MG/ 10ML UD CUP) 5 mg TIDAC PO 06/22/24 07:30 07/22/24 07:29 06/22/24 08:26 5 MG Metronidazole/ Sodium Chloride (flaGYL) 500 mg Q8H IV 05/25/24 22:00 05/25/24 21:56 DC Midazolam HCl 50 ml @ 0 mls/hr AD PRN IV TITRATE 06/12/24 01:30 06/12/24 08:30 DC 06/12/24 02:30 10 MLS/HR Midazolam HCl 100 ml @ 0 mls/hr AD PRN IV TITRATE 06/12/24 09:00 07/12/24 01:29 06/22/24 09:04 10 MLS/HR Morphine Sulfate (morPHINE 4MG SYG) 4 mg Q4H PRN IM RESPIRATORY SYMPTOMS 06/11/24 03:30 06/14/24 23:33 DC 06/11/24 03:27 4 MG Ondansetron HCl (zoFRAN 4MG INJ) 4 mg Q6H PRN IV NAUSEA/VOMITING 05/23/24 20:30 06/22/24 20:29 Pantoprazole Sodium (PROTonix 40MG INJ) 40 mg BID IVP 06/12/24 21:00 07/12/24 20:59 06/22/24 08:30 40 MG Pharmacy Profile Note (Lace Assessment) 1 each AD MISC 06/17/24 16:30 06/17/24 16:27 DC Pharmacy Profile Note (Pharmacy Communication) 1 each ONCE MISC 06/11/24 14:30 06/11/24 15:53 DC Pharmacy Profile Note (Pharmacy Communication) 1 each ONCE MISC 06/11/24 20:30 06/11/24 20:14 DC Pharmacy Profile Note (Pharmacy Communication) 1 each ONCE MISC 06/12/24 17:00 06/12/24 17:07 DC Phenylephrine HCl 10 mg/Sodium Chloride 251 ml @ 0 mls/hr AD PRN IV DIRECTED 06/11/24 03:00 06/12/24 18:12 DC 06/12/24 14:10 47 MLS/HR Phenylephrine HCl 50 mg/Sodium Chloride 250 ml @ 0 mls/hr PROTOCOL PRN IV PROTOCOL 06/12/24 18:00 07/12/24 17:59 06/13/24 08:57 12.45 MLS/HR Polyethylene Glycol (MIRalax 3350 17 GM POWD.PACK) 17 gm DAILY PO 06/22/24 09:00 07/22/24 08:59 06/22/24 08:32 17 GM Potassium Chloride 100 ml @ 100 mls/hr AD PRN IV POTASSIUM PROTOCOL 05/28/24 08:00 06/27/24 07:59 Potassium Chloride (K-Dur/Klor-Con 20meq) 20 meq AD PRN PO POTASSIUM PROTOCOL 05/28/24 08:00 06/27/24 07:59 Potassium Chloride (KCl 10% Elixir 20meq/15ml) 20 meq AD PRN PO POTASSIUM PROTOCOL 05/28/24 08:00 06/27/24 07:59 Prednisone (deltaSONE/ oraSONE 20MG TAB) 20 mg DAILY PO 06/10/24 09:00 06/14/24 08:39 DC 06/13/24 08:15 20 MG Rocuronium [place] (ZemuRON) 10 mg Q1H PRN IV RESP DISTRESS/VENT DISYNCHRONY 06/11/24 20:30 06/11/24 23:29 DC 06/11/24 20:33 10 MG Rocuronium [place] (ZemuRON) 50 mg Q4H PRN IV VENT DYSSYNCHRONY 06/17/24 16:30 07/17/24 16:29 06/22/24 08:47 50 MG Sodium Chloride 500 ml @ 500 mls/hr Q1H IV 06/02/24 20:00 06/02/24 20:59 DC 06/02/24 21:34 500 MLS/HR Sodium Chloride 1,000 ml @ 75 mls/hr [id number] IV 06/07/24 13:30 06/10/24 17:02 DC 06/10/24 09:05 75 MLS/HR Sodium Chloride (Sodium Chloride) 1,000 mg BIDAC PO 06/07/24 16:30 06/09/24 07:28 DC 06/08/24 16:58 1,000 MG Sodium Chloride (Sodium Chloride) 1,000 mg BIDAC PO 06/09/24 07:30 06/12/24 16:35 DC 06/12/24 12:30 1,000 MG Sodium Chloride (Sodium Chloride) 1,000 mg Q12H PO 06/12/24 21:00 07/09/24 07:29 06/22/24 08:32 1,000 MG Sodium Zirconium Cyclosilicate (Lokelma) 5 gm DAILY10 PO 06/08/24 10:30 06/10/24 10:29 DC 06/08/24 10:50 5 GM Trimethoprim/ Sulfamethoxazole (BactRIM DS) 1 tab BID PO 05/26/24 21:00 05/29/24 16:18 DC 05/29/24 08:07 1 TAB Trimethoprim/ Sulfamethoxazole (BactRIM DS) 2 tab TID PO 05/29/24 16:30 06/05/24 20:59 DC 06/05/24 14:55 2 TAB Trimethoprim/ Sulfamethoxazole (BactRIM DS) 2 tab TID PO 06/06/24 09:30 06/11/24 21:54 DC 06/10/24 13:58 2 TAB Trimethoprim/ Sulfamethoxazole 160 mg/Dextrose 250 ml @ 333.333 mls/hr BID@0600,1800 IV 06/22/24 06:00 07/02/24 05:59 06/22/24 06:25 333.333 MLS/HR Trimethoprim/ Sulfamethoxazole 320 mg/Dextrose 500 ml @ 333.333 mls/hr Q8H IV 06/19/24 00:30 06/21/24 21:30 DC 06/21/24 16:16 333.333 MLS/HR Trimethoprim/ Sulfamethoxazole 320 mg/Dextrose 500 ml @ 500 mls/hr Q8H IV 06/11/24 22:30 06/12/24 16:35 DC 06/12/24 06:39 500 MLS/HR Trimethoprim/ Sulfamethoxazole 320 mg/Dextrose 500 ml @ 500 mls/hr Q8H IV 06/12/24 18:00 06/13/24 11:13 DC 06/13/24 05:30 500 MLS/HR Trimethoprim/ Sulfamethoxazole 320 mg/Dextrose 500 ml @ 500 mls/hr Q8H IV 06/13/24 13:30 06/18/24 21:55 DC 06/18/24 14:08 500 MLS/HR Trimethoprim/ Sulfamethoxazole 320 mg/Dextrose 500 ml @ 500 mls/hr Q8H IV 06/18/24 11:59 06/19/24 00:56 DC 06/18/24 11:59 500 MLS/HR Valganciclovir (ValGANCIClovir HCL) 900 mg BID PO 06/11/24 21:00 06/13/24 08:37 DC Wound Care/ Dressing Products (Venelex Ointment) 1 VOLODYMYR AD TID TP 06/14/24 14:00 07/14/24 13:59 06/22/24 08:34 1 GM DIAGNOSTICS / RADIOLOGY: [ ] ASSESSMENT: Acute hypoxemic respiratory failure, POA Bilateral lower lobe bacterial pneumonia + MRSA POA, +Azra Suspected PCP PNA based on CT findings vs viral/Atypical PNA . 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 Continue fentanyl Wean off paralytic per critical care Continue to follow critical care input recommendation Continue the patient on Bactrim, meropenem, fluconazole. Continue gancyclovir Continue furosemide 20mg BID IV q.8 hours. Continue methylprednisolone 80mg TID IV Continue to follow infectious disease input and recommendation Continue to follow chest x-ray Continue to follow ABG Continue bronchodilators per respiratory therapist Replace electrolytes IV per protocol A.m. labs GI and DVT prophylaxis. Further orders to follow based on the above results Disposition: Remains admitted to the ICU, pending improvement clinical condition. Prognosis is poor guarded. Total ICU time spent greater than 30 minutes. GAIL WALDRON MD Jun 22, 2024 11:55
[2024-06-22] MEDS: FENTanyl 2500MCG+NS 250ML 250 ML IV ONE (14:16)
--- NOTE | 2024-06-22 14:20 | PN ---
[facility] PROGRESS NOTE Date of Service: 05/26/24 Time of Service: 14:19 SUBJECTIVE: [ ] Ms. Abdullahi is a 49-year-old female that was seen and examined today on 05/23/2024. Patient is a good historian and personal health. Patient's son Dagoberto Salcido is at bedside. Patient states that she came to the emergency department with a chief complaint of shortness of breath. Onset was two weeks ago. Location is to lungs. Duration is on and off. Character is described as "easily running out of air." Initially shortness and breath was only aggravated with climbing one or two flights of stairs but symptoms have progressively worsened and patient becomes short of breath even standing or walking short distances. There was no alleviating factors however previously symptoms were being controlled with daily morning albuterol nebulizer treatments. Patient denies any associated chest pain or dizziness. Patient reports an episode of COVID in December 2023. emergency department CBC unremarkable, chemistry unremarkable, urinalysis unremarkable, influenza screen negative, COVID negative, blood gas shows PO2 less than 45. Chest x-ray shows left lower lung pneumonia and minimal right lung base atelectasis. Upon arrival to the emergency department patient was placed on a BiPAP due to respiratory distress. 05/24/2024-patient was seen and examined at the bedside, still on BiPAP. Patient is able to speak, and says she feels much better than before. Patient says after COVID in December she developed severe bronchitis and she was on Solu-Medrol and albuterol, which did not help her much and later she had high fevers and shortness of breath which is when she came to the ED.Vitals afebrile pulse 76, RR 38 tachypneic , blood pressure 115/68, pulse oxygen 99 on BiPAP flow of 60. On ABG pH 7.47, pCO2 29, PO2 109.4, oxygen saturation 98.3. [id number] potassium 4.1 BUN15 creatinine 0.5 GFR 114. We will closely monitor the patient. Steel [employer]er consult noted waiting on the recommendation 05/25/24 patient was seen and examined and case discussed with RN and family by the bedside. She was breathing better today. She has been on BiPAP all night but now he was on 100% non-rebreather with further efforts to continue to wean the oxygen requirements down. 05/26/24 patient was seen and examined and case discussed with the RN. No acute events noted overnight. Appreciate pulmonology and ID input continue IV antibiotics and fluconazole. 05/27/24 patient is seen and examined at bedside, acute events overnight, case discussed with the RN, BP 131/64, afebrile, saturating 96-97% via Ventimask, FiO2 40%. The patient admits cough productive of clear phlegm. Serology tests reviewed, HIV preliminary positive, discussed with the patient. 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 We will continue the patient on IV antibiotics, continue fluconazole, continue to follow Pulmonary and ID input and recommendations. After provided in the preliminary results of HIV test, she denies any suicidal or homicidal ideations. 05/28 patient has been seen and examined, no acute events overnight, case discussed with the RN, during my visit patient is sitting comfortably in the chair, hemodynamically stable, off Ventimask, currently on 10 L via nasal cannula, saturating 98%, tolerated BiPAP overnight. she feels better, less shortness a breath, still admits cough productive of yellow phlegm. No chest pain. Getting IV antibiotics during my visit. HIV P24 antigen, nonreactive. We will continue to follow Pulmonary and Infectious Disease input and recommendations. 05/29 patient has been seen and examined, no acute events overnight, case discussed with the RN, during my visit patient is sitting comfortably in the chair, hemodynamically stable, remains on 10 L via nasal cannula, saturating 98%, still admits cough productive of yellow phlegm. No chest pain. Getting IV antibiotics during my visit. HIV P24 antigen, nonreactive. Pending CD4 cell count. We will continue to follow Pulmonary and Infectious Disease input and recommendations. 05/30 the patient has been seen and examined, no acute events overnight, BP 114/66, during my visit she is on Ventimask, saturating 95%, FiO2 60%. Without the Ventimask the patient desaturates to the low 70s. Patient tolerating BiPAP during the night. Still admits cough productive of thick yellow phlegm, no chest pain. Results of CD4 cell count reviewed, discussed with the patient. We will continue broad-spectrum IV antibiotics. Continue to follow Pulmonary and Infectious Disease input and recommendations. 05/31 the patient has been seen and examined, upgraded to the ICU, during my v isit she is sitting in the chair, BP 113/72, heart rate of 109, she is on Oxymizer, 30 L, FiO2 100%. She is alert oriented x3, still admits cough productive of thick yellow phlegm, no chest pain. Hemoglobin 12.9, hematocrit 36.6, WBC 14.6. ABG with pH 7.4, pCO2 40, PO2. Chest x-ray shows left lower lobe infiltrate consistent with pneumonia. She is getting IV antibiotics during my visit. Patient will remain in the ICU, continue to follow critical Care as well as infectious disease input and recommendations. 06/01 patient is seen and examined, sitting comfortable in chair, awake, following commands, remains on high-flow oxygen, FiO2 70%, 30 L, BP 117/67, heart rate of 78, respiratory rate of 30-36, saturating 100%, CBC with a hemoglobin 13.6, hematocrit 38.9, WBC 12.4. Platelet count of 341. Chest x-ray showing persistent left lung infiltrate, cardiac size and mediastinum unre markable. The bony structures are within the normal limits. Patient getting IV antibiotics during my visit. Patient to continue with the high-dose steroids. Serology test positive for Pneumocystis sandra. Patient on Bactrim two tablets p.o. t.i.d.. Continue also doxycycline and cefepime IV. Continue to follow infectious disease input and recommendation. Continue to follow Pulmonary input and recommendations. 06/02 patient is seen and examined at bedside, currently in prone position, alert oriented x3. CPT started last night, she has started having more loose phlegm expectorated. BP 114/74, tachycardic 114, saturating 95%, high-flow nasal cannula, 30 L, FiO2 80%. CBC with a hemoglobin 16.9, hemoglobin 14 0, hematocrit 39.8, platelet count 347. Chest x-ray shows persistent left lung infiltrate. 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 Serology test for toxoplasma currently pending. Patient on IV antibiotics as well as high-dose steroids. Continue to follow infectious Disease and Pulmonary input and recommendations. 06/03 patient seen at bedside, no acute events overnight. She continues with respiratory distress, with increasing oxygen requirements. Critical Care has discussed a possible need for intubation if she does not improve. She has been started on steroids due to underlying PCP pneumonia. WBC improved from 16.9 down to 13.5, sodium stable at 132, same as yesterday, lactic acid downtrending from 4.1 down to 3.2, remainder of her labs are relatively unremarkable. 06/04 patient seen at bedside, no acute events overnight. She remains on high- flow nasal cannula, mildly tachycardic. WBC elevated at 13.3, sodium decreased from 132 down to 129, remainder of her labs are relatively unremarkable. Continue to wean supplemental oxygen. Further care per critical Care 06/05 patient seen at bedside, no acute events overnight. She remains on high- flow nasal cannula with BiPAP overnight and is still tachycardic. Heart rate ranging from 104 up to 113, WBC improved from 13.3 down to 11.1, sodium decreased from 120 down to 126, remainder of her labs are relatively unremarkable. We will continue to wean oxygen as able. 06/06 Patient seen at bedside, no acute events overnight. She remains on high- flow nasal cannula with BiPAP overnight and is still tachycardic. Heart rate ranging from 104 up to 122, WBC improved from 11.1 down to 10.6, sodium improved from 126 up to 129, remainder of her labs are relatively unremarkable. We will continue to wean oxygen as able. 06/07 patient seen at bedside, no acute events overnight. She is still on high- flow nasal cannula, RT advised to wean oxygen, currently saturating 100% on 30L. She is tachycardic, sodium decreased from 129 down to 123, likely secondary to Bactrim. Patient is asymptomatic, will continue with bactrim, if sodium continues to decrease consider a holiday from bactrim. 06/08 patient seen at bedside, no acute events overnight. She is still on high-f low nasal cannula, RT advised to wean oxygen, currently saturating 100% on 30L. She is tachycardic, sodium stable at 123, same as yesterday. Pending improvement in respiratory status 06/09 patient seen at bedside, he remains on high-flow nasal cannula, we will continue to wean as able, appreciate pulmonology assistance, tachycardic with heart rate ranging from 123 up to 130. She is still having low-grade fevers at 100.8. Sodium increased from 123 up to 130, remainder of her labs are relatively unremarkable. 06/10 patient is seen and examined at bedside, remains on high-flow oxygen, she feels mildly anxious, no chest pain. Still with a cough productive of white phlegm. Still tachycardic, heart rate 117-122. Patient is still spiking low- grade fever. Hemoglobin 10.9, hematocrit 30.5. Sodium remained low at 128, BUN and creatinine of 16 and 0.4. 06/11 patient is seen and examined at bedside, patient now on AVAPS, FiO2 100%, patient became restless last night, she had to be started on Precedex. During my visit she remains alert oriented x3, no chest pain. BP 120/48, she is saturating 100%. Hemoglobin 10 point, hematocrit 31.3. ABG shows persistent hypoxemia, with a PO2 of 69.4. Chest x-ray shows extensive infiltrates on the left which is stable to somewhat increased, there has been interval development of perihilar infiltrate on the right. Normal bilateral lower extremity venous Doppler ultrasound. Continue the patient on prednisone 20 mg p.o. daily, continue Bactrim two tablets p.o. t.i.d. as well as fluconazole 100 mg p.o. daily. 06/12 patient is seen and examined at bedside, intubated, on mechanical ventilation, per discussion with the RN, patient was in respiratory distress yesterday, decision made to intubate the patient. During my visit the patient is midazolam, fentanyl, patient paralyzed, also on Nimbex. She is in a prone position. On pressor support with phenylephrine. Also on Precedex. She is also on hydrocortisone 100 mg IV q.8 hours. Son at bedside, updated. ABG shows pH 7.38, pCO2 47, PO2 122, bicarb of 27.7. 06/13 patient is seen and examined at bedside, remains intubated, on mechanical ventilation, remains on midazolam, fentanyl, patient paralyzed, also on Nimbex. She is in a prone position. On BP pressor support with phenylephrine. Patient is peep of seven. ABG pH 7.34, PO2 72.3. Chest x-ray reviewed, increasing bilateral infiltrates, increasing pneumomediastinum. 06/14 patient is seen and examined at bedside, remains intubated, on mechanical ventilation, prone position, remains on midazolam, fentanyl, patient paralyzed, also on Nimbex. She is in a prone position. Off pressors. Patient is peep of seven. ABG pH 7.34, PO2 72.3. Chest x-ray shows extensive bilateral infiltrates unchanged, no pneumothorax. 06/15 patient is seen and examined at bedside, remains intubated, on mechanical ventilation, prone position, remains paralyzed, on Nimbex. Off pressors. Patient is peep of 10. ABG pH 7.34, PO2 72.3. Chest x-ray shows extensive bilateral infiltrates unchanged, no pneumothorax. Overall condition remains unchanged. No family at bedside. 06/16 patient is seen and examined at bedside, remains intubated, on mechanical ventilation, discussed with the RN, the patient has been placed on supine position. Patient remains on pressor support. Remains on sedation with midazolam and fentanyl BP 114/60, afebrile saturating 96% FiO2 100%, peep of 8. ABG today with pCO2 63, PO2 91.5. Chest x-ray with severe consultation both lungs, unchanged, interval development of pneumomediastinum, moderate to severe. Continue Solu-Medrol 80 mg IV q.8 hours, continue broad-spectrum antibiotics with meropenem 1 g IV q.8 hours, the patient remains on Bactrim. Continue ganciclovir. 06/17 patient seen at bedside, no acute events overnight. She remains intubated, paralyzed on FiO2 of 100% and PEEP of eight. Continue to try to wean towards extubation. Chest x-ray appears mildly improved from yesterday. She remains supine. Hemoglobin improved from 8.4 up to 8.6, platelets decreased from 121 down to 112, CO2 elevated at 41, same as yesterday, remainder of her labs are relatively unremarkable. Patient is still critical with poor prognosis continue further care per critical care team. 06/18 patient seen at bedside, no acute events overnight. She remains intubated and sedated, critical care weaning patient off paralyzing agents. She is still on FiO2 of 100% with PEEP of eight, PO2 on ABG 70.8 down from 80.5 yesterday demonstrating a worsening and her oxygenation within her blood at the same ventilator settings. PCO2 increased from 70 up to 75. Hemoglobin improved from 8.6 up to 9.0, platelets improved from 112 up to 127, CO2 increased from 41 up to 45, remainder of her labs are relatively unremarkable. 06/19 patient seen at bedside, no acute events overnight. She remains intubated and sedated, critical Care to continue trying to wean to extubation. Continue current care further recommendations per critical Care 06/20 patient is seen and examined at bedside, no acute events overnight, she remains intubated, on mechanical ventilation, off vasopressors, sedated with fentanyl and Versed, the patient on peep of 8, saturating 97%. 06/21 patient seen at bedside, no acute events overnight. She remains intubated, paralyzed on FiO2 of 100% and PEEP of eight. Continue to try to wean towards extubation. She remains supine. Chest x-ray stable. Hemoglobin at 8.6, hematocrit 28.4. remainder of her labs are relatively unremarkable. Patient is still critical with poor prognosis continue further care per critical care team. 06/22 06/21 patient seen at bedside, no acute events overnight. She remains intubated, paralyzed on FiO2 of 100% and PEEP of eight. Continue to try to wean towards extubation. She remains supine. Chest x-ray stable. Patient is still critical with poor prognosis continue further care per critical care team. REVIEW OF SYSTEMS 12 point review of systems negative unless noted in HPI PHYSICAL EXAM GENERAL APPEARANCE: Patient intubated, on mechanical ventilation. NEUROLOGICAL: Cranial nerves II-XII grossly intact. Motor is 5/5 in bilateral upper and lower extremities proximal to distal. No sensory deficits. HEENT: Face is symmetric. Pupils are equal and reactive. Extraocular movements are intact. NECK: Supple. No JVD. No thyromegaly. No submental, submandibular, pre- /postauricular, occipital or supraclavicular lymphadenopathy. CHEST: Normal chest expansion. No Telemetry. LUNGS: Bilateral rhonchi, no expiratory wheezing CARDIOVASCULAR: Regular. S1 and S2 normal. No appreciable rubs, murmurs or gallops. ABDOMEN: Soft, nontender, and nondistended. There is no rebound, voluntary guarding, or rigidity. : Deferred. No Souza. EXTREMITIES: Non-edematous and not cyanotic. No clubbing. Good capillary refill. SKIN: No skin breakdown. Vital Signs (last 8hr) Date Time Temp Pulse Resp B/P (MAP) Pulse Ox O2 Delivery O2 Flow Rate FiO2 06/22/24 13:00 90 06/22/24 12:00 97.9 06/22/24 12:00 95 Ventilator+ 90 06/22/24 11:00 97 11 128/74 (92) 96 06/22/24 10:00 111 11 148/80 (102) 95 158/87 (110) 06/22/24 09:28 101 90 06/22/24 09:00 90 06/22/24 09:00 113 169/90 (116) 99 162/98 (119) 06/22/24 08:00 97.5 06/22/24 08:00 97.9 104 6 125/70 (88) 97 142/81 (101) 06/22/24 08:00 98 Ventilator+ 90 06/22/24 07:00 99 8 119/67 (84) 98 06/22/24 06:58 103 90 06/22/24 06:57 103 33 LABS: Laboratory: Test 06/22/24 11:13 06/22/24 07:50 06/22/24 07:34 06/22/24 03:22 Range/Units Whole Blood Glucose 206 H 70-110 MG/DL White Blood Count 5.9 4.8-10.8 K/uL Red Blood Count 2.97 L 4.00-5.50 MIL/uL Hemoglobin 9.8 L 12.0-16.0 g/dL Hematocrit 29.2 L 36-48 % Mean Corpuscular Volume 98.3 79-99 fL Mean Corpuscular Hemoglobin 33.0 27.0-33.0 pg Mean Corpuscular Hemoglobin Concent 33.6 32.0-36.0 g/dL Red Cell Distribution Width 12.6 11.0-15.5 % Platelet Count 127 L 130-400 K/uL Mean Platelet Volume 10.5 7.5-10.5 fL Immature Granulocyte % (Auto) 1.4 H 0-1 % Neutrophils (%) (Auto) 93.2 H 40.0-77.0 % Lymphocytes (%) (Auto) 2.7 L 21.0-51.0 % Monocytes (%) (Auto) 2.5 L 3.0-13.0 % Eosinophils (%) (Auto) 0.0 0.0-8.0 % Basophils (%) (Auto) 0.2 0.0-5.0 % Neutrophils # (Auto) 5.5 1.8-7.7 K/uL Lymphocytes # (Auto) 0.2 L 1.0-4.8 K/uL Monocytes # (Auto) 0.2 0.1-1.0 K/uL Eosinophils # (Auto) 0.00 0.00-0.70 K/uL Basophils # (Auto) 0.01 0.00-0.20 K/uL Absolute Immature Granulocyte (auto 0.08 0-1 K/uL Nucleated Red Blood Cells 0.0 0.0-0.19 % Sodium Level 131 L 136-145 mmol/L Potassium Level 5.5 H 3.5-5.1 mmol/L Chloride Level 90 *L 101-111 mmol/L Carbon Dioxide Level 47 *H 21-32 mmol/L Blood Urea Nitrogen 31 H 7-18 mg/dL Creatinine 0.5 0.5-1.0 mg/dL Glomerular Filtration Rate Calc 114 >90 mL/min Random Glucose 237 H 70-105 mg/dL Total Calcium 7.7 L 8.5-10.1 mg/dL Total Bilirubin 0.2 0.2-1.0 mg/dL Aspartate Amino Transf (AST/SGOT) 52 H 10-37 U/L Alanine Aminotransferase (ALT/SGPT) 140 H 12-78 U/L Alkaline Phosphatase 115 50-136 U/L Total Protein 4.8 L 6.0-8.3 g/dL Albumin 1.6 L 3.5-5.0 g/dL Blood Gas Specimen Type Arterial Arterial Blood pH 7.390 7.350-7.450 Arterial Blood Partial Pressure CO2 70 *H 32-45 mmHg Arterial Blood Partial Pressure O2 77.7 L 83.0-108.0 mmHg Arterial Blood HCO3 41.7 H 21.0-28.0 mmol/L Arterial Blood Oxygen Saturation 94.9 94.0-98.0 % Arterial Blood Base Excess 13.1 H -2.0-3.0 mmol/L Blood Gas Temperature 37.0 35.5-37.0 CELSIUS Blood Gas Respiration Rate 34.0 min. Blood Gas Vent Mode PC 23 ROOM AIR FiO2 90.0 % Blood Gas PEEP 8 cm H2O Blood Gas Specimen Comment RN PAL Hemoglobin (Blood Gas) 11.2 L 12.0-16.0 g/dL Sodium (Blood Gas) 130 L 136-145 MMOL/L Bedside Potassium (Blood Gas) 5.4 H 3.4-4.5 MMOL/L Bedside Chloride (Blood Gas) 83 *L 98-107 MMOL/L Bedside Glucose (Blood Gas) 184 H 65-95 MG/DL Bedside Ionized Calcium (Blood Gas) 1.12 L 1.15-1.33 MMOL/L Bedside Lactic Acid (Blood Gas) 1.50 H 0.36-0.75 MMOL/L Test 06/21/24 11:50 06/21/24 09:21 06/21/24 04:32 Range/Units Prothrombin Time 10.9 9.6-11.6 SEC Prothromb Time International Ratio 0.97 0.85-1.15 Blood Gas Tidal Volume 375 ml Magnesium Level 2.10 1.80-2.40 mg/dL Current Medications Medications (Trade) Dose Ordered Sig/Julita Route PRN Reason Start Time Stop Time Status Last Admin Dose Admin Acetaminophen (TYLenol 650MG ELIXIR) 650 mg Q6H PRN PO MILD PAIN (1-3) 06/04/24 08:30 07/04/24 08:29 06/10/24 20:07 650 MG Acetaminophen (TYLenol 650MG SUPPOSITORY) 650 mg Q6H PRN RC MILD PAIN (1-3) 05/23/24 20:30 06/22/24 20:29 Acetylcysteine (MUComyst 20% 4ML) 400mg = 2ml [id number] IH 06/02/24 00:00 06/05/24 15:52 DC 06/05/24 11:35 200 MG Albuterol (DUOneb) 1 udvial [id number] IH 05/24/24 00:00 06/10/24 10:28 DC 06/10/24 06:45 1 UDVIAL Alprazolam (XANax 0.5MG) 0.5 mg Q8H PRN PO ANXIETY 06/10/24 13:30 07/10/24 13:29 06/11/24 05:22 0.5 MG Artificial Tears (Artificial Tears) 1 DROP OR AD Q8H OU 06/11/24 14:30 07/11/24 14:29 06/22/24 12:32 1 DROP Azithromycin 250 ml @ 250 mls/hr Q24H IVPB 05/24/24 17:00 05/24/24 14:41 DC Azithromycin 250 ml @ 250 mls/hr Q24H STAT IVPB 05/23/24 17:17 05/24/24 14:41 DC 05/23/24 17:45 250 MLS/HR Benzocaine (Cepacol Sore Throat Lozenge) 1 each Q4H PRN MM SORE THROAT 06/08/24 10:00 07/08/24 09:59 06/09/24 07:44 1 EACH Bisacodyl (DulcoLAX) 10 mg DAILY PRN RC CONSTIPATION 06/08/24 14:00 07/08/24 13:59 06/19/24 11:41 10 MG Cadexomer Iodine (Iodosorb Gel 40gm) 1 APPL TO RIGHT FAC... DAILY TP 06/19/24 09:00 07/18/24 08:59 06/22/24 08:34 1 APPL Cadexomer Iodine (Iodosorb Gel 40gm) 1 appl DAILY TP 06/18/24 09:00 06/19/24 07:23 DC 06/18/24 14:09 1 APPL Cefepime HCl (MAXipime 2 gm vial) 2 gm Q12H IVPB 05/24/24 15:00 06/03/24 14:59 DC 06/03/24 03:18 2 GM Ceftriaxone Sodium (ROCEphine 1G INJ) 1 gm Q24H IVPB 05/24/24 17:30 05/24/24 14:41 DC Chlorhexidine Gluconate (Peridex) 15 ml Q6H MM 06/07/24 17:00 06/11/24 14:27 DC 06/10/24 12:22 15 ML Chlorhexidine Gluconate (Peridex) 15 ml Q8H MM 06/11/24 14:30 06/25/24 14:29 06/22/24 12:45 15 ML Cisatracurium Besylate (Nimbex) ONCE IVP 06/11/24 14:30 06/11/24 15:57 DC Cisatracurium Besylate 100 mg/ Sodium Chloride 100 ml @ 0 mls/hr PROTOCOL IV 06/11/24 23:30 07/11/24 23:29 06/17/24 09:27 14.94 MLS/HR Clotrimazole (Mycelex) 10 mg TID MM 06/04/24 21:00 06/14/24 08:39 DC 06/13/24 20:28 10 MG Dexmedetomidine/ Sodium Chloride (PRECEdex 400MCG/ 100ML-NS) 400 mcg PROTOCOL IV 06/10/24 19:30 07/10/24 19:29 06/12/24 06:32 400 MCG Dobutamine HCl/ Dextrose 250 ml @ 0 mls/hr PROTOCOL IV 06/12/24 16:30 06/12/24 16:53 DC Doxycycline Hyclate 250 ml @ 125 mls/hr Q12H IV 05/24/24 16:30 06/03/24 16:29 DC 06/03/24 04:23 125 MLS/HR Enoxaparin Sodium (Lovenox 80mg) 40 mg DAILY SQ 06/15/24 09:00 06/15/24 09:30 DC Enoxaparin Sodium (Lovenox 80mg) 80 mg BID SQ 06/11/24 09:00 06/14/24 23:28 DC 06/14/24 20:33 80 MG Enoxaparin Sodium (Lovenox) 40 mg DAILY SQ 06/15/24 09:30 07/15/24 09:29 06/22/24 08:33 40 MG Enoxaparin Sodium (Lovenox) 40 mg Q24H SQ 05/23/24 21:00 06/11/24 04:36 DC 06/10/24 20:07 40 MG Famotidine (Pepcid 20mg Vial) 20 mg DAILY IV 05/24/24 09:00 06/14/24 08:39 DC 06/13/24 08:15 20 MG Fentanyl Citrate 2500 mcg/Sodium Chloride 250 ml @ 0 mls/hr AD PRN IV TITRATE 06/17/24 05:30 06/17/24 05:18 DC Fentanyl/Sodium Chloride 250 ml @ 0.1 mls/hr PROTOCOL IV 06/12/24 00:00 06/17/24 00:00 DC 06/16/24 17:36 0.1 MLS/HR Fentanyl/Sodium Chloride 250 ml @ 0 mls/hr AD PRN IV ICU SEDATION 06/17/24 05:30 06/22/24 05:29 DC 06/21/24 19:51 30 MLS/HR Fluconazole (DiFLUCan 100 mg TAB) 200 mg DAILY PO 06/05/24 09:00 07/05/24 08:59 06/22/24 08:32 200 MG Fluconazole/ Sodium Chloride 100 ml @ 100 mls/hr DAILY IV 05/26/24 09:00 05/27/24 15:57 DC 05/27/24 09:07 100 MLS/HR Furosemide (LASix 20MG VIAL) 20 mg DAILY IV 05/31/24 09:00 06/07/24 13:18 DC 06/03/24 08:38 20 MG Furosemide (LASix 20MG VIAL) 20 mg DAILY IV 06/17/24 10:00 06/17/24 12:13 DC 06/17/24 09:46 20 MG Furosemide (LASix 20MG VIAL) 20 mg Q12H IV 06/11/24 11:00 06/13/24 09:31 DC 06/12/24 21:54 20 MG Furosemide (LASix 20MG VIAL) 20 mg Q12H IV 06/17/24 22:00 06/18/24 10:01 DC 06/18/24 09:44 20 MG Furosemide (LASix 20MG VIAL) 20 mg Q8H IV 06/13/24 09:30 06/16/24 11:00 DC 06/16/24 08:44 20 MG Furosemide (LASix 20MG VIAL) 20 mg Q8H IV 06/19/24 17:00 07/19/24 16:59 06/22/24 08:30 20 MG Ganciclovir Sodium 430 mg/ Sodium Chloride 100 ml @ 100 mls/hr Q12H IV 06/13/24 09:00 07/13/24 08:59 06/22/24 08:29 100 MLS/HR Ganciclovir Sodium 500 mg/ Sodium Chloride 100 ml @ 100 mls/hr Q12H IV 06/11/24 18:00 06/11/24 15:48 DC Ganciclovir Sodium (Ganciclovir Sodium) 500 mg Q12H IV 06/12/24 17:00 06/13/24 08:35 DC Guaifenesin/ Dextromethorphan (RobiTUSSin DM 200/20MG 10ML) 10 ml Q4H PRN PO COUGH 05/23/24 20:30 06/22/24 20:29 06/10/24 20:07 10 ML Hydrocortisone Sodium Succinate (Solu-corTEF 100MG) 100 mg Q8H IV 06/11/24 05:00 06/14/24 08:39 DC 06/14/24 06:13 100 MG Hydroxyzine HCl (ATArax 25MG TAB) 25 mg TID PRN PO ITCHING 06/10/24 14:00 07/10/24 13:59 06/11/24 05:22 25 MG Insulin Human Regular (humuLIN R 100 UNIT/ML 3ML) INSULIN SLIDING SCAL... ACHS SQ 06/19/24 16:30 06/20/24 15:07 DC 06/20/24 12:30 5 UNIT Insulin Human Regular (humuLIN R 100 UNIT/ML 3ML) INSULIN SLIDING SCAL... Q6H6 SQ 06/20/24 18:00 07/19/24 16:29 06/22/24 12:46 3 UNIT Ipratropium [place] (AtrovENT UD) 0.5 MG S9DEVNP IH 06/10/24 14:00 07/10/24 13:59 06/22/24 11:23 0.5 MG Lactated Ringer's (Lactated Ringers 1000ml) 500 ml ONCE IV 06/02/24 20:00 06/02/24 19:54 DC Levofloxacin/ Dextrose 100 ml @ 100 mls/hr Q24H IV 05/24/24 15:00 05/24/24 16:16 DC Magnesium Sulfate 50 ml @ 0 mls/hr PROTOCOL PRN IV hypomagnesemia 05/28/24 08:00 06/27/24 07:59 06/11/24 05:26 50 MLS/HR Meropenem (Merrem 1gm) 1 gm Q8H IVPB 06/13/24 15:00 06/18/24 21:57 DC 06/18/24 15:34 1 GM Meropenem (Merrem 1gm) 1 gm Q8H IVPB 06/19/24 01:00 06/21/24 00:59 DC 06/20/24 16:50 1 GM Meropenem (Merrem) 1 gm Q8H IVPB 06/11/24 15:00 06/13/24 11:52 DC 06/13/24 08:14 1 GM Meropenem 1 gm/ Sodium Chloride 100 ml @ 33.333 mls/ hr Q8H IV 06/11/24 14:30 06/11/24 14:28 DC Methylprednisolone Sodium Succinate (Solu-medROL 40MG) 20 mg Q12H IVP 06/05/24 07:00 06/09/24 09:13 DC 06/09/24 07:25 20 MG Methylprednisolone Sodium Succinate (Solu-medROL 40MG) 40 mg Q12H IVP 05/28/24 18:00 05/29/24 16:45 DC 05/29/24 05:32 40 MG Methylprednisolone Sodium Succinate (Solu-medROL 40MG) 40 mg Q6H IVP 05/29/24 16:30 06/04/24 16:44 DC 06/04/24 11:13 40 MG Methylprednisolone Sodium Succinate (Solu-medROL 40MG) 40 mg Q6H IVP 06/04/24 18:00 06/05/24 00:24 DC 06/04/24 23:48 40 MG Methylprednisolone Sodium Succinate (Solu-medROL 40MG) 40 mg Q8H IVP 05/24/24 01:00 05/25/24 21:51 DC 05/25/24 17:28 40 MG Methylprednisolone Sodium Succinate (Solu-medROL 40MG) 60 mg Q6H IVP 05/25/24 22:00 05/28/24 02:25 DC 05/27/24 23:55 60 MG Methylprednisolone Sodium Succinate (Solu-medROL 40MG) 60 mg Q6H IVP 05/28/24 06:00 05/28/24 08:27 DC 05/28/24 06:47 60 MG Methylprednisolone Sodium Succinate (Solu-medROL 40MG) 60 mg Q6H IVP 06/11/24 02:30 06/11/24 04:23 DC 06/11/24 02:46 60 MG Methylprednisolone Sodium Succinate (Solu-medROL 40MG) 80 mg Q8H IVP 06/14/24 17:00 07/14/24 08:59 06/22/24 08:32 80 MG Methylprednisolone Sodium Succinate (Solu-medROL 125MG) 80 mg Q8H IVP 06/14/24 09:00 06/14/24 14:53 DC 06/14/24 08:48 80 MG Metoclopramide HCl (regLAN 10MG/ 10ML UD CUP) 5 mg TIDAC PO 06/22/24 07:30 07/22/24 07:29 06/22/24 12:30 5 MG Metronidazole/ Sodium Chloride (flaGYL) 500 mg Q8H IV 05/25/24 22:00 05/25/24 21:56 DC Midazolam HCl 50 ml @ 0 mls/hr AD PRN IV TITRATE 06/12/24 01:30 06/12/24 08:30 DC 06/12/24 02:30 10 MLS/HR Midazolam HCl 100 ml @ 0 mls/hr AD PRN IV TITRATE 06/12/24 09:00 07/12/24 01:29 06/22/24 09:04 10 MLS/HR Morphine Sulfate (morPHINE 4MG SYG) 4 mg Q4H PRN IM RESPIRATORY SYMPTOMS 06/11/24 03:30 06/14/24 23:33 DC 06/11/24 03:27 4 MG Ondansetron HCl (zoFRAN 4MG INJ) 4 mg Q6H PRN IV NAUSEA/VOMITING 05/23/24 20:30 06/22/24 20:29 Pantoprazole Sodium (PROTonix 40MG INJ) 40 mg BID IVP 06/12/24 21:00 07/12/24 20:59 06/22/24 08:30 40 MG Pharmacy Profile Note (Lace Assessment) 1 each AD MISC 06/17/24 16:30 06/17/24 16:27 DC Pharmacy Profile Note (Pharmacy Communication) 1 each ONCE MISC 06/11/24 14:30 06/11/24 15:53 DC Pharmacy Profile Note (Pharmacy Communication) 1 each ONCE MISC 06/11/24 20:30 06/11/24 20:14 DC Pharmacy Profile Note (Pharmacy Communication) 1 each ONCE MISC 06/12/24 17:00 06/12/24 17:07 DC Phenylephrine HCl 10 mg/Sodium Chloride 251 ml @ 0 mls/hr AD PRN IV DIRECTED 06/11/24 03:00 06/12/24 18:12 DC 06/12/24 14:10 47 MLS/HR Phenylephrine HCl 50 mg/Sodium Chloride 250 ml @ 0 mls/hr PROTOCOL PRN IV PROTOCOL 06/12/24 18:00 07/12/24 17:59 06/13/24 08:57 12.45 MLS/HR Polyethylene Glycol (MIRalax 3350 17 GM POWD.PACK) 17 gm DAILY PO 06/22/24 09:00 07/22/24 08:59 06/22/24 08:32 17 GM Potassium Chloride 100 ml @ 100 mls/hr AD PRN IV POTASSIUM PROTOCOL 05/28/24 08:00 06/27/24 07:59 Potassium Chloride (K-Dur/Klor-Con 20meq) 20 meq AD PRN PO POTASSIUM PROTOCOL 05/28/24 08:00 06/27/24 07:59 Potassium Chloride (KCl 10% Elixir 20meq/15ml) 20 meq AD PRN PO POTASSIUM PROTOCOL 05/28/24 08:00 06/27/24 07:59 Prednisone (deltaSONE/ oraSONE 20MG TAB) 20 mg DAILY PO 06/10/24 09:00 06/14/24 08:39 DC 06/13/24 08:15 20 MG Rocuronium [place] (ZemuRON) 10 mg Q1H PRN IV RESP DISTRESS/VENT DISYNCHRONY 06/11/24 20:30 06/11/24 23:29 DC 06/11/24 20:33 10 MG Rocuronium [place] (ZemuRON) 50 mg Q4H PRN IV VENT DYSSYNCHRONY 06/17/24 16:30 07/17/24 16:29 06/22/24 13:54 50 MG Sodium Chloride 500 ml @ 500 mls/hr Q1H IV 06/02/24 20:00 06/02/24 20:59 DC 06/02/24 21:34 500 MLS/HR Sodium Chloride 1,000 ml @ 75 mls/hr [id number] IV 06/07/24 13:30 06/10/24 17:02 DC 06/10/24 09:05 75 MLS/HR Sodium Chloride (Sodium Chloride) 1,000 mg BIDAC PO 06/07/24 16:30 06/09/24 07:28 DC 06/08/24 16:58 1,000 MG Sodium Chloride (Sodium Chloride) 1,000 mg BIDAC PO 06/09/24 07:30 06/12/24 16:35 DC 06/12/24 12:30 1,000 MG Sodium Chloride (Sodium Chloride) 1,000 mg Q12H PO 06/12/24 21:00 07/09/24 07:29 06/22/24 08:32 1,000 MG Sodium Zirconium Cyclosilicate (Lokelma) 5 gm DAILY10 PO 06/08/24 10:30 06/10/24 10:29 DC 06/08/24 10:50 5 GM Trimethoprim/ Sulfamethoxazole (BactRIM DS) 1 tab BID PO 05/26/24 21:00 05/29/24 16:18 DC 05/29/24 08:07 1 TAB Trimethoprim/ Sulfamethoxazole (BactRIM DS) 2 tab TID PO 05/29/24 16:30 06/05/24 20:59 DC 06/05/24 14:55 2 TAB Trimethoprim/ Sulfamethoxazole (BactRIM DS) 2 tab TID PO 06/06/24 09:30 06/11/24 21:54 DC 06/10/24 13:58 2 TAB Trimethoprim/ Sulfamethoxazole 160 mg/Dextrose 250 ml @ 333.333 mls/hr BID@0600,1800 IV 06/22/24 06:00 07/02/24 05:59 06/22/24 06:25 333.333 MLS/HR Trimethoprim/ Sulfamethoxazole 320 mg/Dextrose 500 ml @ 333.333 mls/hr Q8H IV 06/19/24 00:30 06/21/24 21:30 DC 06/21/24 16:16 333.333 MLS/HR Trimethoprim/ Sulfamethoxazole 320 mg/Dextrose 500 ml @ 500 mls/hr Q8H IV 06/11/24 22:30 06/12/24 16:35 DC 06/12/24 06:39 500 MLS/HR Trimethoprim/ Sulfamethoxazole 320 mg/Dextrose 500 ml @ 500 mls/hr Q8H IV 06/12/24 18:00 06/13/24 11:13 DC 06/13/24 05:30 500 MLS/HR Trimethoprim/ Sulfamethoxazole 320 mg/Dextrose 500 ml @ 500 mls/hr Q8H IV 06/13/24 13:30 06/18/24 21:55 DC 06/18/24 14:08 500 MLS/HR Trimethoprim/ Sulfamethoxazole 320 mg/Dextrose 500 ml @ 500 mls/hr Q8H IV 06/18/24 11:59 06/19/24 00:56 DC 06/18/24 11:59 500 MLS/HR Valganciclovir (ValGANCIClovir HCL) 900 mg BID PO 06/11/24 21:00 06/13/24 08:37 DC Wound Care/ Dressing Products (Venelex Ointment) 1 VOLODYMYR AD TID TP 06/14/24 14:00 07/14/24 13:59 06/22/24 12:31 1 GM DIAGNOSTICS / RADIOLOGY: [ ] ASSESSMENT: Acute hypoxemic respiratory failure, POA Bilateral lower lobe bacterial pneumonia + MRSA POA, +Azra Suspected PCP PNA based on CT findings vs viral/Atypical PNA . 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 Continue fentanyl Wean off paralytic per critical care Continue to follow critical care input recommendation Continue the patient on Bactrim, meropenem, fluconazole. Continue gancyclovir Continue furosemide 20mg BID IV q.8 hours. Continue methylprednisolone 80mg TID IV Continue to follow infectious disease input and recommendation Continue to follow chest x-ray Continue to follow ABG Continue bronchodilators per respiratory therapist Replace electrolytes IV per protocol A.m. labs GI and DVT prophylaxis. Further orders to follow based on the above results Disposition: Remains admitted to the ICU, pending improvement clinical condition. Prognosis is poor guarded. Total ICU time spent greater than 30 minutes. CLINTON RODRÍGUEZ MD Jun 22, 2024 14:20
--- NOTE | 2024-06-22 15:00 | PN ---
INFECTIOUS DISEASE PROGRESS NOTE Date of Service: Jun 22, 2024 SUBJECTIVE: This is a 49-year-old female patient who was admitted with chief complaint of shortness of breaths. A chest x-ray done on admission showed left lower lung pneumoniae. A CT chest showed bilateral pulmonary infiltrates but no evidence of PE. 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 This 49 year old female patient remains in the ICU, on vent support, on sedation. No episodes of emesis, she continues with tube feedings. Patient remains on antibiotics. Patient is critically ill. No over night events reported by nurse during this visit. No family at bedside. We continue to follow. PHYSICAL EXAM EYES: Anicteric. Pupils equal and reactive. HENT: No oral thrush seen, moist Oral mucosa. NG tube. Oropharyngeal lesions. NECK: Supple, no JVD or thyromegaly. RESPIRATORY: Mechanical ventilation.. CARDIOVASCULAR: S1, S2 regular. No murmur heard. ABDOMEN: Soft, non tender, bowel sounds present, no organomegaly. CENTRAL NERVOUS SYSTEM: Intubated. SKIN: No rashes, no swelling. LYMPHATICS: No peripheral lymphadenopathy. MUSCULOSKELETAL: No joint swelling, erythema or tenderness. EXTREMITIES: No cyanosis or clubbing. BACK: No deformity, no pressure ulcer. GENITOURINARY: No dysuria or hematuria. Souza catheter. Vital Sign (Last 12 Hours) 06/22/24 06/22/24 06/22/24 06/22/24 03:00 03:20 04:00 04:00 Temp 97.5 Pulse 105 106 97 Resp 30 30 B/P (MAP) 128/72 (90) 137/73 (94) 138/81 (100) Pulse Ox 96 96 FiO2 90 06/22/24 06/22/24 06/22/24 06/22/24 04:00 04:57 05:00 06:00 Pulse 104 107 Resp 30 9 B/P (MAP) 147/82 (103) 126/72 (90) 127/77 (94) Pulse Ox 96 95 95 O2 Delivery Ventilator+ FiO2 90 90 06/22/24 06/22/24 06/22/24 06/22/24 06:57 06:58 07:00 08:00 Pulse 103 103 99 Resp 33 8 B/P (MAP) 119/67 (84) Pulse Ox 98 98 O2 Delivery Ventilator+ FiO2 90 90 06/22/24 06/22/24 06/22/24 06/22/24 08:00 08:00 09:00 09:00 Temp 97.9 97.5 Pulse 104 113 Resp 6 B/P (MAP) 125/70 (88) 169/90 (116) 142/81 (101) 162/98 (119) Pulse Ox 97 99 FiO2 90 06/22/24 06/22/24 06/22/24 06/22/24 09:28 10:00 11:00 12:00 Pulse 101 111 97 Resp 11 11 B/P (MAP) 148/80 (102) 128/74 (92) 158/87 (110) Pulse Ox 95 96 95 O2 Delivery Ventilator+ FiO2 90 90 06/22/24 06/22/24 12:00 13:00 Temp 97.9 FiO2 90 Intake & Output (last 24hrs) 06/21/24 06/21/24 06/22/24 15:00 23:00 07:00 Intake Total 980.0 ml 930.0 ml 680.0 ml Output Total 3100 ml 1200 ml Balance 980.0 ml -2170.0 ml -520.0 ml LABS: Laboratory: Test 06/22/24 11:13 06/22/24 07:50 06/22/24 07:34 06/22/24 03:22 Range/Units Whole Blood Glucose 206 H 70-110 MG/DL White Blood Count 5.9 4.8-10.8 K/uL Red Blood Count 2.97 L 4.00-5.50 MIL/uL Hemoglobin 9.8 L 12.0-16.0 g/dL Hematocrit 29.2 L 36-48 % Mean Corpuscular Volume 98.3 79-99 fL Mean Corpuscular Hemoglobin 33.0 27.0-33.0 pg Mean Corpuscular Hemoglobin Concent 33.6 32.0-36.0 g/dL Red Cell Distribution Width 12.6 11.0-15.5 % Platelet Count 127 L 130-400 K/uL Mean Platelet Volume 10.5 7.5-10.5 fL Immature Granulocyte % (Auto) 1.4 H 0-1 % Neutrophils (%) (Auto) 93.2 H 40.0-77.0 % Lymphocytes (%) (Auto) 2.7 L 21.0-51.0 % Monocytes (%) (Auto) 2.5 L 3.0-13.0 % Eosinophils (%) (Auto) 0.0 0.0-8.0 % Basophils (%) (Auto) 0.2 0.0-5.0 % Neutrophils # (Auto) 5.5 1.8-7.7 K/uL Lymphocytes # (Auto) 0.2 L 1.0-4.8 K/uL Monocytes # (Auto) 0.2 0.1-1.0 K/uL Eosinophils # (Auto) 0.00 0.00-0.70 K/uL Basophils # (Auto) 0.01 0.00-0.20 K/uL Absolute Immature Granulocyte (auto 0.08 0-1 K/uL Nucleated Red Blood Cells 0.0 0.0-0.19 % Sodium Level 131 L 136-145 mmol/L Potassium Level 5.5 H 3.5-5.1 mmol/L Chloride Level 90 *L 101-111 mmol/L Carbon Dioxide Level 47 *H 21-32 mmol/L Blood Urea Nitrogen 31 H 7-18 mg/dL Creatinine 0.5 0.5-1.0 mg/dL Glomerular Filtration Rate Calc 114 >90 mL/min Random Glucose 237 H 70-105 mg/dL Total Calcium 7.7 L 8.5-10.1 mg/dL Total Bilirubin 0.2 0.2-1.0 mg/dL Aspartate Amino Transf (AST/SGOT) 52 H 10-37 U/L Alanine Aminotransferase (ALT/SGPT) 140 H 12-78 U/L Alkaline Phosphatase 115 50-136 U/L Total Protein 4.8 L 6.0-8.3 g/dL Albumin 1.6 L 3.5-5.0 g/dL Blood Gas Specimen Type Arterial Arterial Blood pH 7.390 7.350-7.450 Arterial Blood Partial Pressure CO2 70 *H 32-45 mmHg Arterial Blood Partial Pressure O2 77.7 L 83.0-108.0 mmHg Arterial Blood HCO3 41.7 H 21.0-28.0 mmol/L Arterial Blood Oxygen Saturation 94.9 94.0-98.0 % Arterial Blood Base Excess 13.1 H -2.0-3.0 mmol/L Blood Gas Temperature 37.0 35.5-37.0 CELSIUS Blood Gas Respiration Rate 34.0 min. Blood Gas Vent Mode PC 23 ROOM AIR FiO2 90.0 % Blood Gas PEEP 8 cm H2O Blood Gas Specimen Comment RN PAL Hemoglobin (Blood Gas) 11.2 L 12.0-16.0 g/dL Sodium (Blood Gas) 130 L 136-145 MMOL/L Bedside Potassium (Blood Gas) 5.4 H 3.4-4.5 MMOL/L Bedside Chloride (Blood Gas) 83 *L 98-107 MMOL/L Bedside Glucose (Blood Gas) 184 H 65-95 MG/DL Bedside Ionized Calcium (Blood Gas) 1.12 L 1.15-1.33 MMOL/L Bedside Lactic Acid (Blood Gas) 1.50 H 0.36-0.75 MMOL/L Test 06/21/24 11:50 06/21/24 09:21 06/21/24 04:32 Range/Units Prothrombin Time 10.9 9.6-11.6 SEC Prothromb Time International Ratio 0.97 0.85-1.15 Blood Gas Tidal Volume 375 ml Magnesium Level 2.10 1.80-2.40 mg/dL ASSESSMENT: Acute hypoxic respiratory failure, s/p intubated on 06/11/2024. Pneumocystis carinii pneumonia. Positive for Cytomegalovirus. Positive HIV test. Infection with methicillin-resistant Staphylococcus aureus. Leukocytosis Obesity. Oral candidiasis. Anemia. PLAN: Continue Ganciclovir IV for 14 days. Continue Bactrim. Continue Meropenem as currently ordered. Continue fluconazole p.o. Continue critical care support. Continue mechanical ventilation support. Continue GI prophylaxis. Continue DVT prophylaxis. This case was reviewed and discussed with my supervising physician and the above assessment and plan was formulated and agreed upon. BENIGNO MCKEON Jun 22, 2024 15:00
[2024-06-22 18:01] LABS: FIBRINOGEN 327 mg/dL (180-350); INR <= 0.93 (0.85-1.15); PROTHROMBIN TIME 10.5 SEC (9.6-11.6)
[2024-06-22 18:03] LABS: PARTIAL THROMBOPLASTIN TIME 25.4 SEC (26.3-35.5)
[2024-06-22 18:30] LABS: D-DIMER 4298 ng/mL (0-500)
[2024-06-23] VITALS (82 sets, daily range): BP systolic 84–168; BP diastolic 49–85; PULSE 78–128; RESP 13–38; TEMP 97–98.9; O2SAT 88–98
[2024-06-23] LABS: ABG BASE EXCESS 17.3 mmol/L (-2.0-3.0); ABG HCO3 45.5 mmol/L (21.0-28.0); ABG OXYGEN SATURATION 97.1 % (94.0-98.0); ABG PCO2 68 mmHg (32-45); ABG PH 7.442 (7.350-7.450); PO2, ARTERIAL BG 92.6 mmHg (83.0-108.0); VENT MODE, BG PC IP23 (ROOM AIR)
[2024-06-23 05:04] LABS: HEMATOCRIT 31.2 % (36-48); IMMATURE GRANULOCYTE ABSOLUTE 0.14 K/uL (0-1); LYMPHOCYTES # (AUTO) 0.1 K/uL (1.0-4.8); LYMPHOCYTES % (AUTO) 1.8 % (21.0-51.0); MEAN CORPUSCULAR HEMOGLOBIN 33.4 pg (27.0-33.0); MEAN CORPUSCULAR HGB CONC 33.3 g/dL (32.0-36.0); MEAN CORPUSCULAR VOLUME 100.3 fL (79-99); MONOCYTES # (AUTO) 0.3 K/uL (0.1-1.0); MONOCYTES % (AUTO) 4.5 % (3.0-13.0); NEUTROPHILS # (AUTO) 6.1 K/uL (1.8-7.7); NEUTROPHILS % (AUTO) 91.6 % (40.0-77.0); PLATELET COUNT (AUTO) 125 K/uL (130-400); RED BLOOD CELL COUNT(AUTO) 3.11 MIL/uL (4.00-5.50); WHITE BLOOD COUNT (AUTO) 6.6 K/uL (4.8-10.8)
[2024-06-23 05:30] LABS: ALBUMIN 1.6 g/dL (3.5-5.0); BILIRUBIN,TOTAL 0.2 mg/dL (0.2-1.0); CREATININE 0.4 mg/dL (0.5-1.0); POTASSIUM 5.4 mmol/L (3.5-5.1); TOTAL PROTEIN, SERUM 4.7 g/dL (6.0-8.3)
[2024-06-23 09:14] LABS: ABG BASE EXCESS 16.3 mmol/L (-2.0-3.0); ABG OXYGEN SATURATION 98.2 % (94.0-98.0); ABG PCO2 59 mmHg (32-45); ABG PH 7.483 (7.350-7.450); PO2, ARTERIAL BG 109.5 mmHg (83.0-108.0); VENT MODE, BG PC 23 (ROOM AIR)
--- NOTE | 2024-06-23 09:57 | HMCIMG ---
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 Stable endotracheal and NG tubes. Stable heart size. Unchanged extensive right greater than left lung airspace disease, without pneumothorax.
--- NOTE | 2024-06-23 10:00 | NUR ---
samra perez called for update on pt. all questions answered.
[2024-06-23] MEDS: WATER IV SCH (11:27)
[2024-06-23] MEDS: BACTRIM IV SCH (11:27)
[2024-06-23] MEDS: DEXTROSE 5% IV SCH (11:27)
[2024-06-23] MEDS: FENTanyl 2500MCG+NS 250ML 250 ML IV SCH (11:30)
--- NOTE | 2024-06-23 11:30 | PN ---
[facility] PROGRESS NOTE LATE ENTRY NOTE Date Patient Seen: Jun 22, 2024 Time of Visit: 11:20 Supervising Physician: Dr. Garcia Primary Care Physician: Stu Foss MD Outpatient Specialists: Inpatient Consults: Pulmonology PROBLEM LIST: Severe ARDS Acute hypoxemic respiratory failure s/p intubation 06/11/24 requiring proning Bilateral lower lobe bacterial pneumonia + MRSA POA, +Azra Confirmed PCP PNA per Ag (serology), POA Pneumomediastinum on x-ray 06/12/24 Disseminated herpes virus infection Elevated DDIMER r/o PE & DVT New HIV/AIDS positive POA Hyponatremia and hyperkalemia, suspected Bactrim induced Normocytic anemia, not POA Neutrophilia, POA Hyperglycemia, POA Obesity BMI of 32.3 Former smoker Fatty liver, POA Moderate hypoalbuminemia POA Previous COVID-19 infection INTERVAL HISTORY: Day # 6 post Intubation. Patient's condition is critical. Patient has a grim prognosis. This morning she was assessed in room 208 in the ICU. She tolerated being supine with O2 sats above 88% since turned yesterday. Continues on sedation and paralyzed with fentanyl at 200 mcg per hour, Versed 10 milligrams/hour, and Nimbex at 2 micrograms/kilogram per minute. Current vital signs blood pressure of 127/66 heart rate in the 80s respiratory rate of 28 on the vent saturating 93% with a FiO2 of 100% and afebrile. Latest ABGs show a pH of 7.37 pCO2 of 70 PO2 of 80 bicarb of 39.7 with vent settings of assist control volume control tidal volume of 425 respiratory rate of 28 FiO2 of 100% and PEEP of 8. PF ratio 80.5. Urine output 1.1 L with a balance of + 2.7 L. on chest x- ray findings consistent with severe persistent bilateral pulmonary opacification. ET tube in correct position. Resolution of the previously seen pneumomediastinum. No pneumothorax.Will continue to follow ABX per ID. There Is No Family At The Bedside At Time Of My Visit. 06/18/2024: At the time of my evaluation, the patient was lying in bed. There was no family members present at the bedside. She remains in the ICU. She is currently on sedation with fentanyl and Versed. RASS score of -5. The patient was taken off Nimbex and is currently on rocuronium IV pushes. She is intubated and mechanically vented, day #7, ACVC FiO2 100%. She also remains on Solu- Medrol 80 mg q.8 hours. Chest x-ray today showed stable examination without any acute intrapulmonary changes. On the monitor, the patient remains hemodynamically stable. Patient remains on feeding through a OGT. Staff nurse reports no residuals, no nausea, vomiting or diarrhea. I and O shows a net balance of 1273.9. The patient continues on antibiotic/antiviral/antifungal therapy with Merrem/Bactrim/ganciclovir and Diflucan. No other complaint. 06/19/2024: At the time of my evaluation, the patient is lying in bed. The staff nurses present at the bedside , no family members. She remains sedated on fentanyl and Versed, currently RASS score of -5. The patient remains intubated and mechanically vented. ACVC rate of 28, TV 450, peep of 8 and FiO2 100%. Chest x-ray showed worsening pulmonary congestion and infiltrates. On the monitor, the patient is hemodynamically stable and is currently not on pressor therapy. She is receiving nutritional support via OGT with Vital HP and no report of nausea, vomiting or diarrhea. The patient remains with Souza catheter in place dark yellow urine. Net balance on I's and O's of 496.6. On labs, the was a slight increase of potassium to 5.6, CO2 of 43 and a BUN of 23. There is no new microbiology data for review. The patient continues on Merrem, gancicl ovir, Bactrim and Diflucan guided by the ID specialist. No acute events noted overnight. No other complaint. 06/20/2024: At the time of my evaluation, the patient was lying in bed. She continues intubated and on ventilator support. There was no chest x-ray for review today. On vital signs, there was tachycardia and tachypnea, she was normotensive. The patient continues feeding via OGT with Vital HP. There was no nausea, vomiting or diarrhea. Patient continues with Souza catheter in place and has a net balance of 695.0. On labs today, of concern, there was low- sodium of 135, potassium of 5.3 , chloride of 95, CO2 of 42. There was no history for review today. No other complaint. 06/21/2024: At the time of my evaluation, the patient is lying in bed. The staff nurses present at the bedside , no family members. She remains sedated on fentanyl and Versed, currently RASS score of -5. The patient remains intubated and mechanically vented. ABG today showed a pH 7.4, pCO2 72, PO2 84.5 and HC03 of 45.1 on ACVC mode. Chest x-ray showed slight interval improvement of pulmonary congestion and infiltrates. On the monitor, the patient is hemodynamically stable and is currently not on pressor therapy. She is receiving nutritional support via OGT with Vital HP, the staff nurse made mentioned the patient has not had bowel movements for more than three days' and no report of nausea, vomiting. The patient remains with Souza catheter in place dark yellow urine. Net balance on I's and O's of -460.0. On labs, the was improvement of WBC count and stable H&H. Chemistry panel showing persistent decrease in sodium count 131, increase of potassium to 5.3, CO2 of 44 and a BUN of 25and a creatinine of 0.4. There is no new microbiology data for review. The patient continues on ganciclovir, Bactrim and Diflucan guided by the ID specialist. No acute events noted overnight. No other complaint. 06/22/2024: At the time of my evaluation, the patient is lying in bed. The staff nurses present at the bedside. She remains sedated on fentanyl and Versed, currently RASS score of -5. The patient remains intubated and mechanically vented. ABG today showed a pH 7.39 pCO2 70, PO2 77.7 and HC03 of 41.7 on ACVC mode. Chest x-ray showed no significant change. On the monitor, the patient is hemodynamically stable. She is receiving nutritional support via OGT with Vital HP, the patient still has not had bowel movements for more than three days despite use of oral laxative and no report of nausea, vomiting. The patient remains with Souza catheter in place dark yellow urine. On labs, the was improvement of WBC count and stable H&H. Chemistry panel showing persistent decrease in sodium count, increase of potassium. There is no new microbiology data for review. The patient continues on ganciclovir, Bactrim and Diflucan guided by the ID specialist. No acute events noted overnight. No other complai nt. REVIEW OF SYSTEMS: Unable to obtain ROS from patient due to patient's medical condition. PHYSICAL EXAM: GENERAL: Sedated and intubated, currently SUPINE HEENT: Sclera non icteric, dry scabs and sores to mucosa, sore to rt cheek NECK: short neck no JVD, trachea midline LUNGS: diminished to bilateral breath sounds no wheezing. HEART: Regular rate and rhythm. Normal S1 and S2, without murmurs ABD: Abdomen soft, nontender. Bowel sounds present EXT: No clubbing cyanosis or edema, sore to sacral area, NEURO: Intubated sedated and paralyzed. Vital Signs (last 8hr) Date Time Temp Pulse Resp B/P (MAP) Pulse Ox O2 Delivery O2 Flow Rate FiO2 06/23/24 10:45 93 20 108/58 (75) 91 06/23/24 10:30 99 20 127/66 (86) 91 06/23/24 10:15 104 14 151/71 (97) 89 06/23/24 10:00 104 35 128/59 (82) 89 06/23/24 09:46 97 17 111/57 (75) 93 126/68 (87) 06/23/24 09:45 99 19 112/57 (75) 94 06/23/24 09:30 101 18 106/56 (73) 96 06/23/24 09:25 100 23 06/23/24 09:19 97 90 06/23/24 09:15 100 23 108/60 (76) 97 06/23/24 09:00 90 16 114/63 (80) 96 06/23/24 08:00 98.4 06/23/24 08:00 95 14 109/58 (75) 96 06/23/24 07:46 92 17 102/55 (71) 94 104/66 (79) 06/23/24 07:00 98.4 92 13 98/55 (69) 96 06/23/24 07:00 96 Ventilator+ 90 06/23/24 07:00 90 06/23/24 06:18 99 90 06/23/24 06:16 101 22 06/23/24 06:00 97 18 109/60 (76) 93 99/60 (73) 06/23/24 05:00 90 17 99/56 (70) 92 06/23/24 04:00 95 Ventilator+ 90 06/23/24 04:00 90 06/23/24 04:00 99.0 107 22 121/63 (82) 96 06/23/24 04:00 99.0 LABS: Hematology Labs: Test 06/23/24 04:32 Range/Units White Blood Count 6.6 4.8-10.8 K/uL Red Blood Count 3.11 L 4.00-5.50 MIL/uL Hemoglobin 10.4 L 12.0-16.0 g/dL Hematocrit 31.2 L 36-48 % Mean Corpuscular Volume 100.3 H 79-99 fL Mean Corpuscular Hemoglobin 33.4 H 27.0-33.0 pg Mean Corpuscular Hemoglobin Concent 33.3 32.0-36.0 g/dL Red Cell Distribution Width 13.0 11.0-15.5 % Platelet Count 125 L 130-400 K/uL Mean Platelet Volume 10.6 H 7.5-10.5 fL Immature Granulocyte % (Auto) 2.1 H 0-1 % Neutrophils (%) (Auto) 91.6 H 40.0-77.0 % Lymphocytes (%) (Auto) 1.8 L 21.0-51.0 % Monocytes (%) (Auto) 4.5 3.0-13.0 % Eosinophils (%) (Auto) 0.0 0.0-8.0 % Basophils (%) (Auto) 0.0 0.0-5.0 % Neutrophils # (Auto) 6.1 1.8-7.7 K/uL Lymphocytes # (Auto) 0.1 L 1.0-4.8 K/uL Monocytes # (Auto) 0.3 0.1-1.0 K/uL Eosinophils # (Auto) 0.00 0.00-0.70 K/uL Basophils # (Auto) 0.00 0.00-0.20 K/uL Absolute Immature Granulocyte (auto 0.14 0-1 K/uL Nucleated Red Blood Cells 0.0 0.0-0.19 % Chemistry Labs: Test 06/23/24 11:12 06/23/24 04:32 Range/Units Whole Blood Glucose 182 H 70-110 MG/DL Sodium Level 135 L 136-145 mmol/L Potassium Level 5.4 H 3.5-5.1 mmol/L Chloride Level 92 L 101-111 mmol/L Carbon Dioxide Level 43 *H 21-32 mmol/L Blood Urea Nitrogen 37 H 7-18 mg/dL Creatinine 0.4 L 0.5-1.0 mg/dL Glomerular Filtration Rate Calc 121 >90 mL/min Random Glucose 199 H 70-105 mg/dL Total Calcium 7.9 L 8.5-10.1 mg/dL Total Bilirubin 0.2 0.2-1.0 mg/dL Aspartate Amino Transf (AST/SGOT) 51 H 10-37 U/L Alanine Aminotransferase (ALT/SGPT) 126 H 12-78 U/L Alkaline Phosphatase 119 50-136 U/L Total Protein 4.7 L 6.0-8.3 g/dL Albumin 1.6 L 3.5-5.0 g/dL Coagulation Labs: Test 06/22/24 17:35 Range/Units Prothrombin Time 10.5 9.6-11.6 SEC Prothromb Time International Ratio <= 0.93 0.85-1.15 Activated Partial Thromboplast Time 25.4 L 26.3-35.5 SEC Fibrinogen 327 180-350 mg/dL D-Dimer Quantitative (PE/DVT) 4298 *H 0-500 ng/mL DIAGNOSTICS / RADIOLOGY RESULTS: [ ] PLAN Continue sedation with fentanyl, versed wean off Nimbex gtt rocuronium pushes as needed for vent dyssynchrony manage vent per abg maintain plateu pressure of < 30 Continue steroids Continue Atrovent q.4 hours. ABX per ID Son is POA 06/18/2024: For now, we are going to continue current management for the patient. We are going to continue with the mechanical ventilator support and we will adjust to maintain optimal ventilation and oxygenation per ABGs. We will continue with rocuronium pushes as needed. We will continue with steroid dose as ordered and we will follow up with serial chest x-ray examination. She remains hemodynamically stable and is not requiring any pressor therapy. We will continue with nutritional support via the NGT and we will continue monitoring for any high residuals, nausea, vomiting or diarrhea events. We will continue monitoring the I's and O's. The patient will continue on antibiotic/antiviral/antifungal therapy as ordered and we will follow the guidance of the Infectious Disease team. We will monitor the patient's progress and response to management. Her condition remains critical and prognosis is poor. We will continue to provide general supportive care, GI and DVT prophylaxis. Further orders per attending MD and hospital course. 06/19/2024: For now, we are going to continue current management for the patient. She will remain mechanically vented for now. Currently, not a candidate for weaning trials. Considering the worsening findings on chest x- ray, I am going to request a CT of the chest without contrast. We will continue to monitor her vital signs parameters and treat accordingly. She will continue on nutritional support via the OGT and we will monitor for nausea, vomiting or diarrhea. We will follow the input of the treating specialist. I am going to request a repeat potassium level and we will correct as necessary. We will monitor the patient's progress and response to management. The patients condi tion is critical and her prognosis is grim. We will continue to provide general supportive care, GI and DVT prophylaxis. Further orders per attending MD and hospital course. 06/20/2024: For now, we are going to continue current management for the pat ient. Patient will remain on mechanical ventilator support. Because of the elevated peak pressures, we will adjust vent settings and repeat ABG within 1 hour. We will continue to monitor the vital signs and manage as necessary. We will monitor for any arrhythmias or other cardiac events. The patient will continue to feed via the OGT. We will monitor the urinary output and bowel activity. The patient will continue on antibiotic/antifungal/antiviral therapy as ordered by the Infectious Disease specialist and we will follow up his recommendation. We will repeat surveillance labs in the morning. We will monitor the patient's progress and response to management. We will continue to provide general supportive care, GI and DVT prophylaxis. Further orders per attending MD and hospital course. 06/21/2024: For now, we are going to continue current management for the patient. Patient will remain on mechanical ventilator support. Because of the elevated peak pressures, I am going to change the vent mode to ACPC rate of 30, peak pressor support of 23 and FiO2 90%. We will within 2 hours. We will continue to monitor the vital signs and manage as necessary. We will monitor for any arrhythmias or other cardiac events. The patient will continue to feed via the OGT. Due to lack of bowel activity, we are going to continue with daily lactulose, we will add MiraLax and we will put the patient on Reglan. We will monitor the urinary output and bowel activity. The case was discussed with the Infectious Disease specialist regarding the electrolyte parameters and high dose Bactrim. Based on his input, the patient can be transitioned to maintenance dose Bactrim. The patient will continue on antibiotic/antifungal/antiviral therapy as ordered and we will follow further recommendation. We will repeat surveillance labs in the morning. We will monitor the patient's progress and response to management. We will continue to provide general supportive care, GI and DVT prophylaxis. Further orders per attending MD and hospital course. 06/22/2024: For now, we are going to continue current management for the patient. Patient will remain on mechanical ventilator support. ACPC vent mode. We will continue to monitor the vital signs and manage as necessary. We will monitor for any arrhythmias or other cardiac events. The patient will continue to feed via the OGT. Due to lack of bowel activity, we are going to continue with daily lactulose, MiraLax and will continue on Reglan. We will monitor the urinary output and bowel activity. Bactrim and ganciclovir was changed to q.12. The patient will continue on antibiotic/antifungal/antiviral therapy as ordered and we will follow further recommendation. We will repeat surveillance labs in the morning. We will monitor the patient's progress and response to management. We will continue to provide general supportive care, GI and DVT prophylaxis. Further orders per attending MD and hospital course. NEURO: Minimize central acting medications as possible. Fall Precautions. Well lighted room through the day and minimize interruptions through the night to prevent acute delirium. PULMONARY: Supplemental 02 as needed Titrate Fio2 to keep Spo2 > or = 90% DuoNebs and CPT as needed IS hourly while awake for pulmonary hygiene Out of bed to chair as tolerated CARDIOVASCULAR: Follow hemodynamics. Titrate vasopressor to keep MAP >65 or systolic blood pressure >95mmHg Telemetry LINES: CVC RT IJ Arterial line ET tube' FC OG tube GI & NUTRITION: Continue nutritional support Aspirations precautions Prokinetic agents and laxatives as needed KIDNEYS & ELECTROLYTES: Strict monitoring of intake and output Daily weights Avoid nephrotoxic agents Monitor electrolytes and replace as needed Goal urine output of 30mL/hr or 0.5mL/kg/hr ENDOCRINE: Maintain blood glucose between 100-180 at all times. Insulin sliding scale for blood glucose management INFECTIOUS DISEASE: Trend temperature. Clarke-culture if febrile. Sputum culture from 1/9/25 positive for MRSA, Betty albicans Pneumocystis carinii antigen positive Panculture: 06/02/24 Blood cultures Urine cultures Respiratory culture Antibiotics: Bactrim DS Fluconazole Valganciclovir HEMATOLOGY & COAGULATION: Monitor H&H. Keep Hgb > 7 Transfuse 1 unit of PRBC for Hgb < 7 Transfuse 1 pack of platelets of platelets < 20, 000 Watch for any signs and symptoms of bleeding SKIN: Pressure ulcer prevention per facility protocol Rehab: PT/OT Prophylaxis: GI: Pepcid DVT: Lovenox Code Status: Full Resuscitation Disposition: ICU Other: Critical care time I personally spent 45 minutes of critical care time in treatment of this patient. This includes patient management, time at bedside, time reviewing tests, labs, appropriate images and studies, documentation, and patient care coordination. This time excludes separately billable procedures. DAYRON RUBIN NP Jun 23, 2024 11:30
--- NOTE | 2024-06-23 11:40 | PN ---
[facility] PROGRESS NOTE Date Patient Seen: Jun 23, 2024 Time of Visit: 11:33 Supervising Physician: Dr. Garcia Primary Care Physician: Stu Foss MD Outpatient Specialists: Inpatient Consults: Pulmonology PROBLEM LIST: Severe ARDS Acute hypoxemic respiratory failure s/p intubation 06/11/24 requiring proning Bilateral lower lobe bacterial pneumonia + MRSA POA, +Azra Confirmed PCP PNA per Ag (serology), POA Pneumomediastinum on x-ray 06/12/24 Disseminated herpes virus infection Elevated DDIMER r/o PE & DVT New HIV/AIDS positive POA Hyponatremia and hyperkalemia, suspected Bactrim induced Normocytic anemia, not POA Neutrophilia, POA Hyperglycemia, POA Obesity BMI of 32.3 Former smoker Fatty liver, POA Moderate hypoalbuminemia POA Previous COVID-19 infection INTERVAL HISTORY: Day # 6 post Intubation. Patient's condition is critical. Patient has a grim prognosis. This morning she was assessed in room 208 in the ICU. She tolerated being supine with O2 sats above 88% since turned yesterday. Continues on sedation and paralyzed with fentanyl at 200 mcg per hour, Versed 10 milligrams/hour, and Nimbex at 2 micrograms/kilogram per minute. Current vital signs blood pressure of 127/66 heart rate in the 80s respiratory rate of 28 on the vent saturating 93% with a FiO2 of 100% and afebrile. Latest ABGs show a pH of 7.37 pCO2 of 70 PO2 of 80 bicarb of 39.7 with vent settings of assist control volume control tidal volume of 425 respiratory rate of 28 FiO2 of 100% and PEEP of 8. PF ratio 80.5. Urine output 1.1 L with a balance of + 2.7 L. on chest x- ray findings consistent with severe persistent bilateral pulmonary opacification. ET tube in correct position. Resolution of the previously seen pneumomediastinum. No pneumothorax.Will continue to follow ABX per ID. There Is No Family At The Bedside At Time Of My Visit. 06/18/2024: At the time of my evaluation, the patient was lying in bed. There was no family members present at the bedside. She remains in the ICU. She is currently on sedation with fentanyl and Versed. RASS score of -5. The patient was taken off Nimbex and is currently on rocuronium IV pushes. She is intubated and mechanically vented, day #7, ACVC FiO2 100%. She also remains on Solu- Medrol 80 mg q.8 hours. Chest x-ray today showed stable examination without any acute intrapulmonary changes. On the monitor, the patient remains hemodynamically stable. Patient remains on feeding through a OGT. Staff nurse reports no residuals, no nausea, vomiting or diarrhea. I and O shows a net balance of 1273.9. The patient continues on antibiotic/antiviral/antifungal therapy with Merrem/Bactrim/ganciclovir and Diflucan. No other complaint. 06/19/2024: At the time of my evaluation, the patient is lying in bed. The staff nurses present at the bedside , no family members. She remains sedated on fentanyl and Versed, currently RASS score of -5. The patient remains intubated and mechanically vented. ACVC rate of 28, TV 450, peep of 8 and FiO2 100%. Chest x-ray showed worsening pulmonary congestion and infiltrates. On the monitor, the patient is hemodynamically stable and is currently not on pressor therapy. She is receiving nutritional support via OGT with Vital HP and no report of nausea, vomiting or diarrhea. The patient remains with Souza catheter in place dark yellow urine. Net balance on I's and O's of 496.6. On labs, the was a slight increase of potassium to 5.6, CO2 of 43 and a BUN of 23. There is no new microbiology data for review. The patient continues on Merrem, ganciclovir, Bactrim and Diflucan guided by the ID specialist. No acute events noted overnight. No other complaint. 06/20/2024: At the time of my evaluation, the patient was lying in bed. She continues intubated and on ventilator support. There was no chest x-ray for review today. On vital signs, there was tachycardia and tachypnea, she was normotensive. The patient continues feeding via OGT with Vital HP. There was no nausea, vomiting or diarrhea. Patient continues with Souza catheter in place and has a net balance of 695.0. On labs today, of concern, there was low- sodium of 135, potassium of 5.3 , chloride of 95, CO2 of 42. There was no his tory for review today. No other complaint. 06/21/2024: At the time of my evaluation, the patient is lying in bed. The staff nurses present at the bedside , no family members. She remains sedated on fentanyl and Versed, currently RASS score of -5. The patient remains intubated and mechanically vented. ABG today showed a pH 7.4, pCO2 72, PO2 84.5 and HC03 of 45.1 on ACVC mode. Chest x-ray showed slight interval improvement of pulmonary congestion and infiltrates. On the monitor, the patient is hem odynamically stable and is currently not on pressor therapy. She is receiving nutritional support via OGT with Vital HP, the staff nurse made mentioned the patient has not had bowel movements for more than three days' and no report of nausea, vomiting. The patient remains with Souza catheter in place dark yellow urine. Net balance on I's and O's of -460.0. On labs, the was improvement of WBC count and stable H&H. Chemistry panel showing persistent decrease in sodium count 131, increase of potassium to 5.3, CO2 of 44 and a BUN of 25and a creatinine of 0.4. There is no new microbiology data for review. The patient continues on ganciclovir, Bactrim and Diflucan guided by the ID specialist. No acute events noted overnight. No other complaint. 06/22/2024: At the time of my evaluation, the patient is lying in bed. The staff nurses present at the bedside. She remains sedated on fentanyl and Versed, currently RASS score of -5. The patient remains intubated and mechanically vented. ABG today showed a pH 7.39 pCO2 70, PO2 77.7 and HC03 of 41.7 on ACVC mode. Chest x-ray showed no significant change. On the monitor, the patient is hemodynamically stable. She is receiving nutritional support via OGT with Vital HP, the patient still has not had bowel movements for more than three days despite use of oral laxative and no report of nausea, vomiting. The patient remains with Souza catheter in place dark yellow urine. On labs, the was improvement of WBC count and stable H&H. Chemistry panel showing persistent decrease in sodium count, increase of potassium. There is no new microbiology data for review. The patient continues on ganciclovir, Bactrim and Diflucan guided by the ID specialist. No acute events noted overnight. No other complaint. 06/23/2024: At the time of my evaluation, the patient was lying in bed. Per the staff nurse, overnight, the patient required to be started on Precedex due to awakening, hypoxemia and tachycardia. She also received pushes of Rocuronium as ordered. Respiratory aleman she remains on the ventilator support ACPC with peak inspiratory pressure of 23, rate of 34 and a PEEP of 8. ABGs today showed a pH of 7.48, pCO2 59, PO2 109.5 and HC03 of 43.0 pulse oximetry of 98%. Chest x-ray today, showed no significant interval change. On the monitor, the patient is hemodynamically stable. She continues on OG feedings with Vital HP and there is no nausea, vomiting or diarrhea. The patient is voiding via Souza catheter with a total urinary output of 2600 and a net balance of 460.1. Per the staff nurse report, the patient had a bowel movement this a.m. On labs today, CBC showed WBC of 6.6. Chemistry panel sodium of 135, potassium of 5.4, chloride of 92, CO2 of 43, BUN37 and creatinine of 0.4. LFTs showed a total bili of 0.2, T 51 and ALT of 126 with a alk-phos of 119. No other complaint. REVIEW OF SYSTEMS: Unable to obtain ROS from patient due to patient's medical condition. PHYSICAL EXAM: GENERAL: Sedated and intubated, currently SUPINE HEENT: Sclera non icteric, dry scabs and sores to mucosa, sore to rt cheek NECK: short neck no JVD, trachea midline LUNGS: diminished to bilateral breath sounds no wheezing. HEART: Regular rate and rhythm. Normal S1 and S2, without murmurs ABD: Abdomen soft, nontender. Bowel sounds present EXT: No clubbing cyanosis or edema, sore to sacral area, NEURO: Intubated sedated and paralyzed. Vital Signs (last 8hr) Date Time Temp Pulse Resp B/P (MAP) Pulse Ox O2 Delivery O2 Flow Rate FiO2 06/23/24 10:45 93 20 108/58 (75) 91 06/23/24 10:30 99 20 127/66 (86) 91 06/23/24 10:15 104 14 151/71 (97) 89 06/23/24 10:00 104 35 128/59 (82) 89 06/23/24 09:46 97 17 111/57 (75) 93 126/68 (87) 06/23/24 09:45 99 19 112/57 (75) 94 06/23/24 09:30 101 18 106/56 (73) 96 06/23/24 09:25 100 23 06/23/24 09:19 97 90 06/23/24 09:15 100 23 108/60 (76) 97 06/23/24 09:00 90 16 114/63 (80) 96 06/23/24 08:00 98.4 06/23/24 08:00 95 14 109/58 (75) 96 06/23/24 07:46 92 17 102/55 (71) 94 104/66 (79) 06/23/24 07:00 98.4 92 13 98/55 (69) 96 06/23/24 07:00 96 Ventilator+ 90 06/23/24 07:00 90 06/23/24 06:18 99 90 06/23/24 06:16 101 22 06/23/24 06:00 97 18 109/60 (76) 93 99/60 (73) 06/23/24 05:00 90 17 99/56 (70) 92 06/23/24 04:00 95 Ventilator+ 90 06/23/24 04:00 90 06/23/24 04:00 99.0 107 22 121/63 (82) 96 06/23/24 04:00 99.0 LABS: Hematology Labs: Test 06/23/24 04:32 Range/Units White Blood Count 6.6 4.8-10.8 K/uL Red Blood Count 3.11 L 4.00-5.50 MIL/uL Hemoglobin 10.4 L 12.0-16.0 g/dL Hematocrit 31.2 L 36-48 % Mean Corpuscular Volume 100.3 H 79-99 fL Mean Corpuscular Hemoglobin 33.4 H 27.0-33.0 pg Mean Corpuscular Hemoglobin Concent 33.3 32.0-36.0 g/dL Red Cell Distribution Width 13.0 11.0-15.5 % Platelet Count 125 L 130-400 K/uL Mean Platelet Volume 10.6 H 7.5-10.5 fL Immature Granulocyte % (Auto) 2.1 H 0-1 % Neutrophils (%) (Auto) 91.6 H 40.0-77.0 % Lymphocytes (%) (Auto) 1.8 L 21.0-51.0 % Monocytes (%) (Auto) 4.5 3.0-13.0 % Eosinophils (%) (Auto) 0.0 0.0-8.0 % Basophils (%) (Auto) 0.0 0.0-5.0 % Neutrophils # (Auto) 6.1 1.8-7.7 K/uL Lymphocytes # (Auto) 0.1 L 1.0-4.8 K/uL Monocytes # (Auto) 0.3 0.1-1.0 K/uL Eosinophils # (Auto) 0.00 0.00-0.70 K/uL Basophils # (Auto) 0.00 0.00-0.20 K/uL Absolute Immature Granulocyte (auto 0.14 0-1 K/uL Nucleated Red Blood Cells 0.0 0.0-0.19 % Chemistry Labs: Test 06/23/24 11:12 06/23/24 04:32 Range/Units Whole Blood Glucose 182 H 70-110 MG/DL Sodium Level 135 L 136-145 mmol/L Potassium Level 5.4 H 3.5-5.1 mmol/L Chloride Level 92 L 101-111 mmol/L Carbon Dioxide Level 43 *H 21-32 mmol/L Blood Urea Nitrogen 37 H 7-18 mg/dL Creatinine 0.4 L 0.5-1.0 mg/dL Glomerular Filtration Rate Calc 121 >90 mL/min Random Glucose 199 H 70-105 mg/dL Total Calcium 7.9 L 8.5-10.1 mg/dL Total Bilirubin 0.2 0.2-1.0 mg/dL Aspartate Amino Transf (AST/SGOT) 51 H 10-37 U/L Alanine Aminotransferase (ALT/SGPT) 126 H 12-78 U/L Alkaline Phosphatase 119 50-136 U/L Total Protein 4.7 L 6.0-8.3 g/dL Albumin 1.6 L 3.5-5.0 g/dL Coagulation Labs: Test 06/22/24 17:35 Range/Units Prothrombin Time 10.5 9.6-11.6 SEC Prothromb Time International Ratio <= 0.93 0.85-1.15 Activated Partial Thromboplast Time 25.4 L 26.3-35.5 SEC Fibrinogen 327 180-350 mg/dL D-Dimer Quantitative (PE/DVT) 4298 *H 0-500 ng/mL DIAGNOSTICS / RADIOLOGY RESULTS: [ ] PLAN Continue sedation with fentanyl, versed wean off Nimbex gtt rocuronium pushes as needed for vent dyssynchrony manage vent per abg maintain plateu pressure of < 30 Continue steroids Continue Atrovent q.4 hours. ABX per ID Son is POA 06/18/2024: For now, we are going to continue current management for the patient. We are going to continue with the mechanical ventilator support and we will adjust to maintain optimal ventilation and oxygenation per ABGs. We will continue with rocuronium pushes as needed. We will continue with steroid dose as ordered and we will follow up with serial chest x-ray examination. She remains hemodynamically stable and is not requiring any pressor therapy. We will continue with nutritional support via the NGT and we will continue jeff toring for any high residuals, nausea, vomiting or diarrhea events. We will continue monitoring the I's and O's. The patient will continue on antibiotic/antiviral/antifungal therapy as ordered and we will follow the guidance of the Infectious Disease team. We will monitor the patient's progress and response to management. Her condition remains critical and prognosis is poor. We will continue to provide general supportive care, GI and DVT prophylaxis. Further orders per attending MD and hospital course. 06/19/2024: For now, we are going to continue current management for the patient. She will remain mechanically vented for now. Currently, not a candidate for weaning trials. Considering the worsening findings on chest x- ray, I am going to request a CT of the chest without contrast. We will continue to monitor her vital signs parameters and treat accordingly. She will continue on nutritional support via the OGT and we will monitor for nausea, vomiting or diarrhea. We will follow the input of the treating specialist. I am going to request a repeat potassium level and we will correct as necessary. We will monitor the patient's progress and response to management. The patients condition is critical and her prognosis is grim. We will continue to provide general supportive care, GI and DVT prophylaxis. Further orders per attending MD and hospital course. 06/20/2024: For now, we are going to continue current management for the patient. Patient will remain on mechanical ventilator support. Because of the elevated peak pressures, we will adjust vent settings and repeat ABG within 1 hour. We will continue to monitor the vital signs and manage as necessary. We will monitor for any arrhythmias or other cardiac events. The patient will continue to feed via the OGT. We will monitor the urinary output and bowel activity. The patient will continue on antibiotic/antifungal/antiviral therapy as ordered by the Infectious Disease specialist and we will follow up his recommendation. We will repeat surveillance labs in the morning. We will monitor the patient's progress and response to management. We will continue to provide general supportive care, GI and DVT prophylaxis. Further orders per attending MD and hospital course. 06/21/2024: For now, we are going to continue current management for the patient. Patient will remain on mechanical ventilator support. Because of the elevated peak pressures, I am going to change the vent mode to ACPC rate of 30, peak pressor support of 23 and FiO2 90%. We will within 2 hours. We will continue to monitor the vital signs and manage as necessary. We will monitor for any arrhythmias or other cardiac events. The patient will continue to feed via the OGT. Due to lack of bowel activity, we are going to continue with daily lactulose, we will add MiraLax and we will put the patient on Reglan. We will monitor the urinary output and bowel activity. The case was discussed with the Infectious Disease specialist regarding the electrolyte parameters and high dose Bactrim. Based on his input, the patient can be transitioned to maintenance dose Bactrim. The patient will continue on antibiotic/antifungal/antiviral therapy as ordered and we will follow further recommendation. We will repeat surveillance labs in the morning. We will monitor the patient's progress and response to management. We will continue to provide general supportive care, GI and DVT prophylaxis. Further orders per attending MD and hospital course. 06/22/2024: For now, we are going to continue current management for the patient. Patient will remain on mechanical ventilator support. ACPC vent mode. We will continue to monitor the vital signs and manage as necessary. We will monitor for any arrhythmias or other cardiac events. The patient will continue to feed via the OGT. Due to lack of bowel activity, we are going to continue with daily lactulose, MiraLax and will continue on Reglan. We will monitor the urinary output and bowel activity. Bactrim and ganciclovir was changed to q.12. The patient will continue on antibiotic/antifungal/antiviral therapy as ordered and we will follow further recommendation. We will repeat surveillance labs in the morning. We will monitor the patient's progress and response to management. We will continue to provide general supportive care, GI and DVT prophylaxis. Further orders per attending MD and hospital course. 06/23/2024: For now, we are going to continue current management for the patient. Patient will call remain on sedation with Fentanyl and Versed. I am going to stop the rocuronium pushes and start the patient once again on Nimbex. Patient will remain on mechanical ventilator support. ACPC vent mode. We will continue to monitor the vital signs and manage as necessary. We will monitor for any arrhythmias or other cardiac events. The patient will continue to feed via the OGT and the staff nurse reported a bowel movement this a.m. I am going to change the feeding to Nepro same rate. We will monitor the urinary output and bowel activity. Bactrim was changed to daily maintenance dose and remains on ganciclovir. We will repeat surveillance labs in the morning and chest imaging go rather. We will monitor the patient's progress and response to management. We will continue to provide general supportive care, GI and DVT prophylaxis. Further orders per attending MD and hospital course. NEURO: Minimize central acting medications as possible. Fall Precautions. Well lighted room through the day and minimize interruptions through the night to prevent acute delirium. PULMONARY: Supplemental 02 as needed Titrate Fio2 to keep Spo2 > or = 90% DuoNebs and CPT as needed IS hourly while awake for pulmonary hygiene Out of bed to chair as tolerated CARDIOVASCULAR: Follow hemodynamics. Titrate vasopressor to keep MAP >65 or systolic blood pressure >95mmHg Telemetry LINES: CVC RT IJ Arterial line ET tube' FC OG tube GI & NUTRITION: Continue nutritional support Aspirations precautions Prokinetic agents and laxatives as needed KIDNEYS & ELECTROLYTES: Strict monitoring of intake and output Daily weights Avoid nephrotoxic agents Monitor electrolytes and replace as needed Goal urine output of 30mL/hr or 0.5mL/kg/hr ENDOCRINE: Maintain blood glucose between 100-180 at all times. Insulin sliding scale for blood glucose management INFECTIOUS DISEASE: Trend temperature. Clarke-culture if febrile. Sputum culture from 05/23/24 positive for MRSA, Betty albicans Pneumocystis carinii antigen positive Panculture: 06/02/24 Blood cultures Urine cultures Respiratory culture Antibiotics: Bactrim DS Fluconazole Valganciclovir HEMATOLOGY & COAGULATION: Monitor H&H. Keep Hgb > 7 Transfuse 1 unit of PRBC for Hgb < 7 Transfuse 1 pack of platelets of platelets < 20, 000 Watch for any signs and symptoms of bleeding SKIN: Pressure ulcer prevention per facility protocol Rehab: PT/OT Prophylaxis: GI: Pepcid DVT: Lovenox Code Status: Full Resuscitation Disposition: ICU Other: Critical care time I personally spent 45 minutes of critical care time in treatment of this patient. This includes patient management, time at bedside, time reviewing tests, labs, appropriate images and studies, documentation, and patient care coordination. This time excludes separately billable procedures. DAYRON RUBIN NP Jun 23, 2024 11:40
[2024-06-23] MEDS: SODIUM ZIRCONIUM CYCLOSILICATE 5 GM POWD.PACK PO ONE (12:26)
--- NOTE | 2024-06-23 12:35 | NUR ---
rounding this morning, adjusted fio2 to 80% , pt began to desat to mid 80's. placed fio2 back to 90%, pt took about 10mins to stabilize back to 91-94%.
--- NOTE | 2024-06-23 13:27 | PN ---
[facility] PROGRESS NOTE Date of Service: Jun 23, 2024 Time of Service: 13:19 SUBJECTIVE: [ ] Ms. Abdullahi is a 49-year-old female that was seen and examined today on 05/23/2024. Patient is a good historian and personal health. Patient's son Dagoberto Salcido is at bedside. Patient states that she came to the emergency department with a chief complaint of shortness of breath. Onset was two weeks ago. Location is to lungs. Duration is on and off. Character is described as "easily running out of air." Initially shortness and breath was only aggravated with climbing one or two flights of stairs but symptoms have progressively worsened and patient becomes short of breath even standing or walking short distances. There was no alleviating factors however previously symptoms were being controlled with daily morning albuterol nebulizer treatments. Patient denies any associated chest pain or dizziness. Patient reports an episode of COVID in December 2023. emergency department CBC unremarkable, chemistry unremarkable, urinalysis unremarkable, influenza screen negative, COVID negative, blood gas shows PO2 less than 45. Chest x-ray shows left lower lung pneumonia and minimal right lung base atelectasis. Upon arrival to the emergency department patient was placed on a BiPAP due to respiratory distress. 05/24/2024-patient was seen and examined at the bedside, still on BiPAP. Patient is able to speak, and says she feels much better than before. Patient says after COVID in December she developed severe bronchitis and she was on Solu-Medrol and albuterol, which did not help her much and later she had high fevers and shortness of breath which is when she came to the ED.Vitals afebrile pulse 76, RR 38 tachypneic , blood pressure 115/68, pulse oxygen 99 on BiPAP flow of 60. On ABG pH 7.47, pCO2 29, PO2 109.4, oxygen saturation 98.3. [id number] potassium 4.1 BUN15 creatinine 0.5 GFR 114. We will closely monitor the patient. Director Of Global Sales consult noted waiting on the recommendation 05/25/24 patient was seen and examined and case discussed with RN and family by the bedside. She was breathing better today. She has been on BiPAP all night but now he was on 100% non-rebreather with further efforts to continue to wean the oxygen requirements down. 05/26/24 patient was seen and examined and case discussed with the RN. No acute events noted overnight. Appreciate pulmonology and ID input continue IV antibiotics and fluconazole. 05/27/24 patient is seen and examined at bedside, acute events overnight, case discussed with the RN, BP 131/64, afebrile, saturating 96-97% via Ventimask, FiO2 40%. The patient admits cough productive of clear phlegm. Serology tests reviewed, HIV preliminary positive, discussed with the patient. 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 We will continue the patient on IV antibiotics, continue fluconazole, continue to follow Pulmonary and ID input and recommendations. After provided in the preliminary results of HIV test, she denies any suicidal or homicidal ideations. 05/28 patient has been seen and examined, no acute events overnight, case discussed with the RN, during my visit patient is sitting comfortably in the chair, hemodynamically stable, off Ventimask, currently on 10 L via nasal cannula, saturating 98%, tolerated BiPAP overnight. she feels better, less shortness a breath, still admits cough productive of yellow phlegm. No chest pain. Getting IV antibiotics during my visit. HIV P24 antigen, nonreactive. We will continue to follow Pulmonary and Infectious Disease input and recommendations. 05/29 patient has been seen and examined, no acute events overnight, case discussed with the RN, during my visit patient is sitting comfortably in the chair, hemodynamically stable, remains on 10 L via nasal cannula, saturating 98%, still admits cough productive of yellow phlegm. No chest pain. Getting IV antibiotics during my visit. HIV P24 antigen, nonreactive. Pending CD4 cell count. We will continue to follow Pulmonary and Infectious Disease input and recommendations. 05/30 the patient has been seen and examined, no acute events overnight, BP 114 /66, during my visit she is on Ventimask, saturating 95%, FiO2 60%. Without the Ventimask the patient desaturates to the low 70s. Patient tolerating BiPAP during the night. Still admits cough productive of thick yellow phlegm, no chest pain. Results of CD4 cell count reviewed, discussed with the patient. We will continue broad-spectrum IV antibiotics. Continue to follow Pulmonary and Infectious Disease input and recommendations. 05/31 the patient has been seen and examined, upgraded to the ICU, during my visit she is sitting in the chair, BP 113/72, heart rate of 109, she is on Oxymizer, 30 L, FiO2 100%. She is alert oriented x3, still admits cough productive of thick yellow phlegm, no chest pain. Hemoglobin 12.9, hematocrit 36.6, WBC 14.6. ABG with pH 7.4, pCO2 40, PO2. Chest x-ray shows left lower lobe infiltrate consistent with pneumonia. She is getting IV antibiotics during my visit. Patient will remain in the ICU, continue to follow critical Care as well as infectious disease input and recommendations. 06/01 patient is seen and examined, sitting comfortable in chair, awake, following commands, remains on high-flow oxygen, FiO2 70%, 30 L, BP 117/67, heart rate of 78, respiratory rate of 30-36, saturating 100%, CBC with a hemoglobin 13.6, hematocrit 38.9, WBC 12.4. Platelet count of 341. Chest x-ray showing persistent left lung infiltrate, cardiac size and mediastinum unremarkable. The bony structures are within the normal limits. Patient getting IV antibiotics during my visit. Patient to continue with the high-dose steroids. Serology test positive for Pneumocystis sandra. Patient on Bactrim two tablets p.o. t.i.d.. Continue also doxycycline and cefepime IV. Continue to follow infectious disease input and recommendation. Continue to follow Pulmonary input and recommendations. 06/02 patient is seen and examined at bedside, currently in prone position, alert oriented x3. CPT started last night, she has started having more loose phlegm expectorated. BP 114/74, tachycardic 114, saturating 95%, high-flow nasal cannula, 30 L, FiO2 80%. CBC with a hemoglobin 16.9, hemoglobin 14 0, hematocrit 39.8, platelet count 347. Chest x-ray shows persistent left lung infiltrate. 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 Serology test for toxoplasma currently pending. Patient on IV antibiotics as well as high-dose steroids. Continue to follow infectious Disease and Pulmonary input and recommendations. 06/03 patient seen at bedside, no acute events overnight. She continues with respiratory distress, with increasing oxygen requirements. Critical Care has discussed a possible need for intubation if she does not improve. She has been started on steroids due to underlying PCP pneumonia. WBC improved from 16.9 down to 13.5, sodium stable at 132, same as yesterday, lactic acid downtrending from 4.1 down to 3.2, remainder of her labs are relatively unremarkable. 06/04 patient seen at bedside, no acute events overnight. She remains on high- flow nasal cannula, mildly tachycardic. WBC elevated at 13.3, sodium decreased from 132 down to 129, remainder of her labs are relatively unremarkable. Continue to wean supplemental oxygen. Further care per critical Care 06/05 patient seen at bedside, no acute events overnight. She remains on high- flow nasal cannula with BiPAP overnight and is still tachycardic. Heart rate ranging from 104 up to 113, WBC improved from 13.3 down to 11.1, sodium decreased from 120 down to 126, remainder of her labs are relatively unremarkable. We will continue to wean oxygen as able. 06/06 Patient seen at bedside, no acute events overnight. She remains on high- flow nasal cannula with BiPAP overnight and is still tachycardic. Heart rate r anging from 104 up to 122, WBC improved from 11.1 down to 10.6, sodium improved from 126 up to 129, remainder of her labs are relatively unremarkable. We will continue to wean oxygen as able. 06/07 patient seen at bedside, no acute events overnight. She is still on high- flow nasal cannula, RT advised to wean oxygen, currently saturating 100% on 30L. She is tachycardic, sodium decreased from 129 down to 123, likely secondary to Bactrim. Patient is asymptomatic, will continue with bactrim, if sodium aline nues to decrease consider a holiday from bactrim. 06/08 patient seen at bedside, no acute events overnight. She is still on high- flow nasal cannula, RT advised to wean oxygen, currently saturating 100% on 30L. She is tachycardic, sodium stable at 123, same as yesterday. Pending improvement in respiratory status 06/09 patient seen at bedside, he remains on high-flow nasal cannula, we will continue to wean as able, appreciate pulmonology assistance, tachycardic with heart rate ranging from 123 up to 130. She is still having low-grade fevers at 100.8. Sodium increased from 123 up to 130, remainder of her labs are relatively unremarkable. 06/10 patient is seen and examined at bedside, remains on high-flow oxygen, she feels mildly anxious, no chest pain. Still with a cough productive of white phlegm. Still tachycardic, heart rate 117-122. Patient is still spiking low- grade fever. Hemoglobin 10.9, hematocrit 30.5. Sodium remained low at 128, BUN and creatinine of 16 and 0.4. 06/11 patient is seen and examined at bedside, patient now on AVAPS, FiO2 100%, patient became restless last night, she had to be started on Precedex. During my visit she remains alert oriented x3, no chest pain. BP 120/48, she is saturating 100%. Hemoglobin 10 point, hematocrit 31.3. ABG shows persistent hypoxemia, with a PO2 of 69.4. Chest x-ray shows extensive infiltrates on the left which is stable to somewhat increased, there has been interval development of perihilar infiltrate on the right. Normal bilateral lower extremity venous Doppler ultrasound. Continue the patient on prednisone 20 mg p.o. daily, continue Bactrim two tablets p.o. t.i.d. as well as fluconazole 100 mg p.o. daily. 06/12 patient is seen and examined at bedside, intubated, on mechanical ventilation, per discussion with the RN, patient was in respiratory distress yesterday, decision made to intubate the patient. During my visit the patient is midazolam, fentanyl, patient paralyzed, also on Nimbex. She is in a prone position. On pressor support with phenylephrine. Also on Precedex. She is also on hydrocortisone 100 mg IV q.8 hours. Son at bedside, updated. ABG shows pH 7.38, pCO2 47, PO2 122, bicarb of 27.7. 06/13 patient is seen and examined at bedside, remains intubated, on mechanical ventilation, remains on midazolam, fentanyl, patient paralyzed, also on Nimbex. She is in a prone position. On BP pressor support with phenylephrine. Patient is peep of seven. ABG pH 7.34, PO2 72.3. Chest x-ray reviewed, increasing bilateral infiltrates, increasing pneumomediastinum. 06/14 patient is seen and examined at bedside, remains intubated, on mechanical ventilation, prone position, remains on midazolam, fentanyl, patient paralyzed, also on Nimbex. She is in a prone position. Off pressors. Patient is peep of seven. ABG pH 7.34, PO2 72.3. Chest x-ray shows extensive bilateral infiltrates unchanged, no pneumothorax. 06/15 patient is seen and examined at bedside, remains intubated, on mechanical ventilation, prone position, remains paralyzed, on Nimbex. Off pressors. Patient is peep of 10. ABG pH 7.34, PO2 72.3. Chest x-ray shows extensive bilateral infiltrates unchanged, no pneumothorax. Overall condition remains unchanged. No family at bedside. 06/16 patient is seen and examined at bedside, remains intubated, on mechanical ventilation, discussed with the RN, the patient has been placed on supine position. Patient remains on pressor support. Remains on sedation with midazolam and fentanyl BP 114/60, afebrile saturating 96% FiO2 100%, peep of 8. ABG today with pCO2 63, PO2 91.5. Chest x-ray with severe consultation both lungs, unchanged, interval development of pneumomediastinum, moderate to severe. Continue Solu-Medrol 80 mg IV q.8 hours, continue broad-spectrum antibiotics with meropenem 1 g IV q.8 hours, the patient remains on Bactrim. Continue ganciclovir. 06/17 patient seen at bedside, no acute events overnight. She remains intubated, paralyzed on FiO2 of 100% and PEEP of eight. Continue to try to wean towards extubation. Chest x-ray appears mildly improved from yesterday. She remains supine. Hemoglobin improved from 8.4 up to 8.6, platelets decreased from 121 do wn to 112, CO2 elevated at 41, same as yesterday, remainder of her labs are relatively unremarkable. Patient is still critical with poor prognosis continue further care per critical care team. 06/18 patient seen at bedside, no acute events overnight. She remains intubated and sedated, critical care weaning patient off paralyzing agents. She is still on FiO2 of 100% with PEEP of eight, PO2 on ABG 70.8 down from 80.5 yesterday demonstrating a worsening and her oxygenation within her blood at the same ventilator settings. PCO2 increased from 70 up to 75. Hemoglobin improved from 8.6 up to 9.0, platelets improved from 112 up to 127, CO2 increased from 41 up to 45, remainder of her labs are relatively unremarkable. 06/19 patient seen at bedside, no acute events overnight. She remains intubated and sedated, critical Care to continue trying to wean to extubation. Continue current care further recommendations per critical Care 2 patient is seen and examined at bedside, no acute events overnight, she remains intubated, on mechanical ventilation, off vasopressors, sedated with fentanyl and Versed, the patient on peep of 8, saturating 97%. 06/21 patient seen at bedside, no acute events overnight. She remains intubated, paralyzed on FiO2 of 100% and PEEP of eight. Continue to try to wean towards extubation. She remains supine. Chest x-ray stable. Hemoglobin at 8.6, hematocrit 28.4. remainder of her labs are relatively unremarkable. Patient is still critical with poor prognosis continue further care per critical care team. 06/22 patient seen at bedside, no acute events overnight. She remains intubated, paralyzed on FiO2 of 100% and PEEP of eight. Continue to try to wean towards extubation. She remains supine. Chest x-ray stable. Patient is still critic al with poor prognosis continue further care per critical care team. 06/23 patient seen at bedside, no acute events overnight. She remains intubated, on FiO2 of 90% and PEEP of eight, ABG showing improved oxygenation will wean down to 80%. Continue to try to wean towards extubation. She remains supine. Chest x-ray improved from previous. Patient is still critical with poor pr ognosis continue further care per critical care team. REVIEW OF SYSTEMS 12 point review of systems negative unless noted in HPI PHYSICAL EXAM GENERAL APPEARANCE: Patient intubated, on mechanical ventilation. NEUROLOGICAL: Cranial nerves II-XII grossly intact. Motor is 5/5 in bilateral upper and lower extremities proximal to distal. No sensory deficits. HEENT: Face is symmetric. Pupils are equal and reactive. Extraocular movements are intact. NECK: Supple. No JVD. No thyromegaly. No submental, submandibular, pre- /postauricular, occipital or supraclavicular lymphadenopathy. CHEST: Normal chest expansion. No Telemetry. LUNGS: Bilateral rhonchi, no expiratory wheezing CARDIOVASCULAR: Regular. S1 and S2 normal. No appreciable rubs, murmurs or gallops. ABDOMEN: Soft, nontender, and nondistended. There is no rebound, voluntary guarding, or rigidity. : Deferred. No Souza. EXTREMITIES: Non-edematous and not cyanotic. No clubbing. Good capillary refill. SKIN: No skin breakdown. Vital Signs (last 8hr) Date Time Temp Pulse Resp B/P (MAP) Pulse Ox O2 Delivery O2 Flow Rate FiO2 06/23/24 13:02 97 21 06/23/24 12:21 92 Ventilator+ 90 06/23/24 12:21 89 90 06/23/24 12:13 97.0 06/23/24 12:00 90 06/23/24 11:46 89 26 106/57 (73) 94 105/61 (76) 06/23/24 11:45 88 38 108/57 (74) 94 06/23/24 11:30 90 25 97/56 (70) 94 06/23/24 11:15 89 17 86/49 (61) 94 06/23/24 11:09 89 20 88/51 (63) 93 101/55 (70) 06/23/24 11:00 89 23 91/52 (65) 91 06/23/24 10:45 93 20 108/58 (75) 91 06/23/24 10:30 99 20 127/66 (86) 91 06/23/24 10:15 104 14 151/71 (97) 89 06/23/24 10:00 104 35 128/59 (82) 89 06/23/24 09:46 97 17 111/57 (75) 93 126/68 (87) 06/23/24 09:45 99 19 112/57 (75) 94 06/23/24 09:30 101 18 106/56 (73) 96 06/23/24 09:25 100 23 06/23/24 09:19 97 90 06/23/24 09:15 100 23 108/60 (76) 97 06/23/24 09:00 90 16 114/63 (80) 96 06/23/24 08:00 98.4 06/23/24 08:00 95 14 109/58 (75) 96 06/23/24 07:46 92 17 102/55 (71) 94 104/66 (79) 06/23/24 07:00 98.4 92 13 98/55 (69) 96 2/9/25 07:00 96 Ventilator+ 90 06/23/24 07:00 90 06/23/24 06:18 99 90 06/23/24 06:16 101 22 06/23/24 06:00 97 18 109/60 (76) 93 99/60 (73) LABS: Laboratory: Test 06/23/24 11:12 06/23/24 09:10 06/23/24 04:32 06/22/24 23:58 Range/Units Whole Blood Glucose 182 H 70-110 MG/DL Blood Gas Specimen Type Arterial Arterial Blood pH 7.483 H 7.350-7.450 Arterial Blood Partial Pressure CO2 59 H 32-45 mmHg Arterial Blood Partial Pressure O2 109.5 H 83.0-108.0 mmHg Arterial Blood HCO3 43.0 H 21.0-28.0 mmol/L Arterial Blood Oxygen Saturation 98.2 H 94.0-98.0 % Arterial Blood Base Excess 16.3 H -2.0-3.0 mmol/L Blood Gas Temperature 37.0 35.5-37.0 CELSIUS Blood Gas Respiration Rate 34.0 min. Blood Gas Vent Mode PC 23 ROOM AIR FiO2 90.0 % Blood Gas PEEP 8 cm H2O Blood Gas Specimen Comment WENDY SILVA White Blood Count 6.6 4.8-10.8 K/uL Red Blood Count 3.11 L 4.00-5.50 MIL/uL Hemoglobin 10.4 L 12.0-16.0 g/dL Hematocrit 31.2 L 36-48 % Mean Corpuscular Volume 100.3 H 79-99 fL Mean Corpuscular Hemoglobin 33.4 H 27.0-33.0 pg Mean Corpuscular Hemoglobin Concent 33.3 32.0-36.0 g/dL Red Cell Distribution Width 13.0 11.0-15.5 % Platelet Count 125 L 130-400 K/uL Mean Platelet Volume 10.6 H 7.5-10.5 fL Immature Granulocyte % (Auto) 2.1 H 0-1 % Neutrophils (%) (Auto) 91.6 H 40.0-77.0 % Lymphocytes (%) (Auto) 1.8 L 21.0-51.0 % Monocytes (%) (Auto) 4.5 3.0-13.0 % Eosinophils (%) (Auto) 0.0 0.0-8.0 % Basophils (%) (Auto) 0.0 0.0-5.0 % Neutrophils # (Auto) 6.1 1.8-7.7 K/uL Lymphocytes # (Auto) 0.1 L 1.0-4.8 K/uL Monocytes # (Auto) 0.3 0.1-1.0 K/uL Eosinophils # (Auto) 0.00 0.00-0.70 K/uL Basophils # (Auto) 0.00 0.00-0.20 K/uL Absolute Immature Granulocyte (auto 0.14 0-1 K/uL Nucleated Red Blood Cells 0.0 0.0-0.19 % Sodium Level 135 L 136-145 mmol/L Potassium Level 5.4 H 3.5-5.1 mmol/L Chloride Level 92 L 101-111 mmol/L Carbon Dioxide Level 43 *H 21-32 mmol/L Blood Urea Nitrogen 37 H 7-18 mg/dL Creatinine 0.4 L 0.5-1.0 mg/dL Glomerular Filtration Rate Calc 121 >90 mL/min Random Glucose 199 H 70-105 mg/dL Total Calcium 7.9 L 8.5-10.1 mg/dL Total Bilirubin 0.2 0.2-1.0 mg/dL Aspartate Amino Transf (AST/SGOT) 51 H 10-37 U/L Alanine Aminotransferase (ALT/SGPT) 126 H 12-78 U/L Alkaline Phosphatase 119 50-136 U/L Total Protein 4.7 L 6.0-8.3 g/dL Albumin 1.6 L 3.5-5.0 g/dL Blood Gas Tidal Volume 0 ml Test 06/22/24 17:35 06/22/24 03:22 Range/Units Prothrombin Time 10.5 9.6-11.6 SEC Prothromb Time International Ratio <= 0.93 0.85-1.15 Activated Partial Thromboplast Time 25.4 L 26.3-35.5 SEC Fibrinogen 327 180-350 mg/dL D-Dimer Quantitative (PE/DVT) 4298 *H 0-500 ng/mL Hemoglobin (Blood Gas) 11.2 L 12.0-16.0 g/dL Sodium (Blood Gas) 130 L 136-145 MMOL/L Bedside Potassium (Blood Gas) 5.4 H 3.4-4.5 MMOL/L Bedside Chloride (Blood Gas) 83 *L 98-107 MMOL/L Bedside Glucose (Blood Gas) 184 H 65-95 MG/DL Bedside Ionized Calcium (Blood Gas) 1.12 L 1.15-1.33 MMOL/L Bedside Lactic Acid (Blood Gas) 1.50 H 0.36-0.75 MMOL/L Current Medications Medications (Trade) Dose Ordered Sig/Julita Route PRN Reason Start Time Stop Time Status Last Admin Dose Admin Acetaminophen (TYLenol 650MG ELIXIR) 650 mg Q6H PRN PO MILD PAIN (1-3) 06/04/24 08:30 07/04/24 08:29 06/10/24 20:07 650 MG Acetaminophen (TYLenol 650MG SUPPOSITORY) 650 mg Q6H PRN RC MILD PAIN (1-3) 05/23/24 20:30 06/22/24 20:29 DC Acetylcysteine (MUComyst 20% 4ML) 400mg = 2ml [id number] IH 06/02/24 00:00 06/05/24 15:52 DC 06/05/24 11:35 200 MG Albuterol (DUOneb) 1 udvial [id number] IH 05/24/24 00:00 06/10/24 10:28 DC 06/10/24 06:45 1 UDVIAL Alprazolam (XANax 0.5MG) 0.5 mg Q8H PRN PO ANXIETY 06/10/24 13:30 07/10/24 13:29 06/23/24 04:03 0.5 MG Artificial Tears (Artificial Tears) 1 DROP OR AD Q8H OU 06/11/24 14:30 07/11/24 14:29 06/23/24 13:03 1 DROP Azithromycin 250 ml @ 250 mls/hr Q24H IVPB 05/24/24 17:00 05/24/24 14:41 DC Azithromycin 250 ml @ 250 mls/hr Q24H STAT IVPB 05/23/24 17:17 05/24/24 14:41 DC 05/23/24 17:45 250 MLS/HR Benzocaine (Cepacol Sore Throat Lozenge) 1 each Q4H PRN MM SORE THROAT 06/08/24 10:00 07/08/24 09:59 06/09/24 07:44 1 EACH Bisacodyl (DulcoLAX) 10 mg DAILY PRN RC CONSTIPATION 06/08/24 14:00 07/08/24 13:59 06/23/24 10:00 10 MG Cadexomer Iodine (Iodosorb Gel 40gm) 1 APPL TO RIGHT FAC... DAILY TP 06/19/24 09:00 07/18/24 08:59 06/23/24 08:21 1 APPL Cadexomer Iodine (Iodosorb Gel 40gm) 1 appl DAILY TP 06/18/24 09:00 06/19/24 07:23 DC 06/18/24 14:09 1 APPL Cefepime HCl (MAXipime 2 gm vial) 2 gm Q12H IVPB 05/24/24 15:00 06/03/24 14:59 DC 06/03/24 03:18 2 GM Ceftriaxone Sodium (ROCEphine 1G INJ) 1 gm Q24H IVPB 05/24/24 17:30 05/24/24 14:41 DC Chlorhexidine Gluconate (Peridex) 15 ml Q6H MM 06/07/24 17:00 06/11/24 14:27 DC 06/10/24 12:22 15 ML Chlorhexidine Gluconate (Peridex) 15 ml Q8H MM 06/11/24 14:30 06/25/24 14:29 06/23/24 13:03 15 ML Cisatracurium Besylate (Nimbex) ONCE IVP 06/11/24 14:30 06/11/24 15:57 DC Cisatracurium Besylate 100 mg/ Sodium Chloride 100 ml @ 0 mls/hr PROTOCOL IV 06/11/24 23:30 07/11/24 23:29 06/17/24 09:27 14.94 MLS/HR Clotrimazole (Mycelex) 10 mg TID MM 06/04/24 21:00 06/14/24 08:39 DC 06/13/24 20:28 10 MG Dexmedetomidine/ Sodium Chloride (PRECEdex 400MCG/ 100ML-NS) 400 mcg PROTOCOL IV 06/10/24 19:30 07/10/24 19:29 06/12/24 06:32 400 MCG Dobutamine HCl/ Dextrose 250 ml @ 0 mls/hr PROTOCOL IV 06/12/24 16:30 06/12/24 16:53 DC Doxycycline Hyclate 250 ml @ 125 mls/hr Q12H IV 05/24/24 16:30 06/03/24 16:29 DC 06/03/24 04:23 125 MLS/HR Enoxaparin Sodium (Lovenox 80mg) 40 mg DAILY SQ 06/15/24 09:00 06/15/24 09:30 DC Enoxaparin Sodium (Lovenox 80mg) 80 mg BID SQ 06/11/24 09:00 06/14/24 23:28 DC 06/14/24 20:33 80 MG Enoxaparin Sodium (Lovenox) 40 mg DAILY SQ 06/15/24 09:30 07/15/24 09:29 06/23/24 08:20 40 MG Enoxaparin Sodium (Lovenox) 40 mg Q24H SQ 05/23/24 21:00 06/11/24 04:36 DC 06/10/24 20:07 40 MG Famotidine (Pepcid 20mg Vial) 20 mg DAILY IV 05/24/24 09:00 06/14/24 08:39 DC 06/13/24 08:15 20 MG Fentanyl Citrate 2500 mcg/Sodium Chloride 250 ml @ 0 mls/hr AD PRN IV TITRATE 06/17/24 05:30 06/17/24 05:18 DC Fentanyl/Sodium Chloride 250 ml @ 0.1 mls/hr PROTOCOL IV 06/12/24 00:00 06/17/24 00:00 DC 06/16/24 17:36 0.1 MLS/HR Fentanyl/Sodium Chloride 250 ml @ 0 mls/hr AD PRN IV ICU SEDATION 06/17/24 05:30 06/22/24 05:29 DC 06/21/24 19:51 30 MLS/HR Fentanyl/Sodium Chloride 250 ml @ 0 mls/hr PROTOCOL IV 06/22/24 15:00 06/27/24 14:59 06/23/24 11:30 30 MLS/HR Fluconazole (DiFLUCan 100 mg TAB) 200 mg DAILY PO 06/05/24 09:00 07/05/24 08:59 06/23/24 08:20 200 MG Fluconazole/ Sodium Chloride 100 ml @ 100 mls/hr DAILY IV 05/26/24 09:00 05/27/24 15:57 DC 05/27/24 09:07 100 MLS/HR Furosemide (LASix 20MG VIAL) 20 mg DAILY IV 05/31/24 09:00 06/07/24 13:18 DC 06/03/24 08:38 20 MG Furosemide (LASix 20MG VIAL) 20 mg DAILY IV 06/17/24 10:00 06/17/24 12:13 DC 06/17/24 09:46 20 MG Furosemide (LASix 20MG VIAL) 20 mg Q12H IV 06/11/24 11:00 06/13/24 09:31 DC 06/12/24 21:54 20 MG Furosemide (LASix 20MG VIAL) 20 mg Q12H IV 06/17/24 22:00 06/18/24 10:01 DC 06/18/24 09:44 20 MG Furosemide (LASix 20MG VIAL) 20 mg Q8H IV 06/13/24 09:30 06/16/24 11:00 DC 06/16/24 08:44 20 MG Furosemide (LASix 20MG VIAL) 20 mg Q8H IV 06/19/24 17:00 07/19/24 16:59 06/23/24 08:21 20 MG Ganciclovir Sodium 430 mg/ Sodium Chloride 100 ml @ 100 mls/hr Q12H IV 06/13/24 09:00 07/13/24 08:59 06/23/24 09:40 100 MLS/HR Ganciclovir Sodium 500 mg/ Sodium Chloride 100 ml @ 100 mls/hr Q12H IV 06/11/24 18:00 06/11/24 15:48 DC Ganciclovir Sodium (Ganciclovir Sodium) 500 mg Q12H IV 06/12/24 17:00 06/13/24 08:35 DC Guaifenesin/ Dextromethorphan (RobiTUSSin DM 200/20MG 10ML) 10 ml Q4H PRN PO COUGH 05/23/24 20:30 06/22/24 20:29 DC 06/10/24 20:07 10 ML Hydrocortisone Sodium Succinate (Solu-corTEF 100MG) 100 mg Q8H IV 06/11/24 05:00 06/14/24 08:39 DC 06/14/24 06:13 100 MG Hydroxyzine HCl (ATArax 25MG TAB) 25 mg TID PRN PO ITCHING 06/10/24 14:00 07/10/24 13:59 06/23/24 04:02 25 MG Insulin Human Regular (humuLIN R 100 UNIT/ML 3ML) INSULIN SLIDING SCAL... ACHS SQ 06/19/24 16:30 06/20/24 15:07 DC 06/20/24 12:30 5 UNIT Insulin Human Regular (humuLIN R 100 UNIT/ML 3ML) INSULIN SLIDING SCAL... Q6H6 SQ 06/20/24 18:00 07/19/24 16:29 06/23/24 11:51 2 UNIT Ipratropium [place] (AtrovENT UD) 0.5 MG [id number] IH 06/10/24 14:00 07/10/24 13:59 06/23/24 13:02 0.5 MG Lactated Ringer's (Lactated Ringers 1000ml) 500 ml ONCE IV 06/02/24 20:00 06/02/24 19:54 DC Levofloxacin/ Dextrose 100 ml @ 100 mls/hr Q24H IV 05/24/24 15:00 05/24/24 16:16 DC Magnesium Sulfate 50 ml @ 0 mls/hr PROTOCOL PRN IV hypomagnesemia 05/28/24 08:00 06/27/24 07:59 06/11/24 05:26 50 MLS/HR Meropenem (Merrem 1gm) 1 gm Q8H IVPB 06/13/24 15:00 06/18/24 21:57 DC 06/18/24 15:34 1 GM Meropenem (Merrem 1gm) 1 gm Q8H IVPB 06/19/24 01:00 06/21/24 00:59 DC 06/20/24 16:50 1 GM Meropenem (Merrem) 1 gm Q8H IVPB 06/11/24 15:00 06/13/24 11:52 DC 06/13/24 08:14 1 GM Meropenem 1 gm/ Sodium Chloride 100 ml @ 33.333 mls/ hr Q8H IV 06/11/24 14:30 06/11/24 14:28 DC Methylprednisolone Sodium Succinate (Solu-medROL 40MG) 20 mg Q12H IVP 06/05/24 07:00 06/09/24 09:13 DC 06/09/24 07:25 20 MG Methylprednisolone Sodium Succinate (Solu-medROL 40MG) 40 mg Q12H IVP 05/28/24 18:00 05/29/24 16:45 DC 05/29/24 05:32 40 MG Methylprednisolone Sodium Succinate (Solu-medROL 40MG) 40 mg Q6H IVP 05/29/24 16:30 06/04/24 16:44 DC 06/04/24 11:13 40 MG Methylprednisolone Sodium Succinate (Solu-medROL 40MG) 40 mg Q6H IVP 06/04/24 18:00 06/05/24 00:24 DC 06/04/24 23:48 40 MG Methylprednisolone Sodium Succinate (Solu-medROL 40MG) 40 mg Q8H IVP 05/24/24 01:00 05/25/24 21:51 DC 05/25/24 17:28 40 MG Methylprednisolone Sodium Succinate (Solu-medROL 40MG) 60 mg Q6H IVP 05/25/24 22:00 05/28/24 02:25 DC 05/27/24 23:55 60 MG Methylprednisolone Sodium Succinate (Solu-medROL 40MG) 60 mg Q6H IVP 05/28/24 06:00 05/28/24 08:27 DC 05/28/24 06:47 60 MG Methylprednisolone Sodium Succinate (Solu-medROL 40MG) 60 mg Q6H IVP 06/11/24 02:30 06/11/24 04:23 DC 06/11/24 02:46 60 MG Methylprednisolone Sodium Succinate (Solu-medROL 40MG) 80 mg Q8H IVP 06/14/24 17:00 07/14/24 08:59 06/23/24 08:20 80 MG Methylprednisolone Sodium Succinate (Solu-medROL 125MG) 80 mg Q8H IVP 06/14/24 09:00 06/14/24 14:53 DC 06/14/24 08:48 80 MG Metoclopramide HCl (regLAN 10MG/ 10ML UD CUP) 5 mg TIDAC PO 06/22/24 07:30 07/22/24 07:29 06/23/24 11:27 5 MG Metronidazole/ Sodium Chloride (flaGYL) 500 mg Q8H IV 05/25/24 22:00 05/25/24 21:56 DC Midazolam HCl 50 ml @ 0 mls/hr AD PRN IV TITRATE 06/12/24 01:30 06/12/24 08:30 DC 06/12/24 02:30 10 MLS/HR Midazolam HCl 100 ml @ 0 mls/hr AD PRN IV TITRATE 06/12/24 09:00 07/12/24 01:29 06/23/24 11:28 10 MLS/HR Morphine Sulfate (morPHINE 4MG SYG) 4 mg Q4H PRN IM RESPIRATORY SYMPTOMS 06/11/24 03:30 06/14/24 23:33 DC 06/11/24 03:27 4 MG Ondansetron HCl (zoFRAN 4MG INJ) 4 mg Q6H PRN IV NAUSEA/VOMITING 05/23/24 20:30 06/22/24 20:29 DC Pantoprazole Sodium (PROTonix 40MG INJ) 40 mg BID IVP 06/12/24 21:00 07/12/24 20:59 06/23/24 08:21 40 MG Pharmacy Profile Note (Lace Assessment) 1 each AD MISC 06/17/24 16:30 06/17/24 16:27 DC Pharmacy Profile Note (Pharmacy Communication) 1 each ONCE MISC 06/11/24 14:30 06/11/24 15:53 DC Pharmacy Profile Note (Pharmacy Communication) 1 each ONCE MISC 06/11/24 20:30 06/11/24 20:14 DC Pharmacy Profile Note (Pharmacy Communication) 1 each ONCE MISC 06/12/24 17:00 06/12/24 17:07 DC Phenylephrine HCl 10 mg/Sodium Chloride 251 ml @ 0 mls/hr AD PRN IV DIRECTED 06/11/24 03:00 06/12/24 18:12 DC 06/12/24 14:10 47 MLS/HR Phenylephrine HCl 50 mg/Sodium Chloride 250 ml @ 0 mls/hr PROTOCOL PRN IV PROTOCOL 06/12/24 18:00 07/12/24 17:59 06/13/24 08:57 12.45 MLS/HR Polyethylene Glycol (MIRalax 3350 17 GM POWD.PACK) 17 gm DAILY PO 06/22/24 09:00 07/22/24 08:59 06/23/24 08:19 17 GM Potassium Chloride 100 ml @ 100 mls/hr AD PRN IV POTASSIUM PROTOCOL 05/28/24 08:00 06/27/24 07:59 Potassium Chloride (K-Dur/Klor-Con 20meq) 20 meq AD PRN PO POTASSIUM PROTOCOL 05/28/24 08:00 06/27/24 07:59 Potassium Chloride (KCl 10% Elixir 20meq/15ml) 20 meq AD PRN PO POTASSIUM PROTOCOL 05/28/24 08:00 06/27/24 07:59 Prednisone (deltaSONE/ oraSONE 20MG TAB) 20 mg DAILY PO 06/10/24 09:00 06/14/24 08:39 DC 06/13/24 08:15 20 MG Rocuronium [place] (ZemuRON) 10 mg Q1H PRN IV RESP DISTRESS/VENT DISYNCHRONY 06/11/24 20:30 06/11/24 23:29 DC 06/11/24 20:33 10 MG Rocuronium [place] (ZemuRON) 50 mg Q4H PRN IV VENT DYSSYNCHRONY 06/17/24 16:30 07/17/24 16:29 06/23/24 04:03 50 MG Sodium Chloride 500 ml @ 500 mls/hr Q1H IV 06/02/24 20:00 06/02/24 20:59 DC 06/02/24 21:34 500 MLS/HR Sodium Chloride 1,000 ml @ 75 mls/hr [id number] IV 06/07/24 13:30 06/10/24 17:02 DC 06/10/24 09:05 75 MLS/HR Sodium Chloride (Sodium Chloride) 1,000 mg BIDAC PO 06/07/24 16:30 06/09/24 07:28 DC 06/08/24 16:58 1,000 MG Sodium Chloride (Sodium Chloride) 1,000 mg BIDAC PO 06/09/24 07:30 06/12/24 16:35 DC 06/12/24 12:30 1,000 MG Sodium Chloride (Sodium Chloride) 1,000 mg Q12H PO 06/12/24 21:00 07/09/24 07:29 06/23/24 08:20 1,000 MG Sodium Zirconium Cyclosilicate (Lokelma) 5 gm DAILY10 PO 06/08/24 10:30 06/10/24 10:29 DC 06/08/24 10:50 5 GM Trimethoprim/ Sulfamethoxazole (BactRIM DS) 1 tab BID PO 05/26/24 21:00 05/29/24 16:18 DC 05/29/24 08:07 1 TAB Trimethoprim/ Sulfamethoxazole (BactRIM DS) 2 tab TID PO 05/29/24 16:30 06/05/24 20:59 DC 06/05/24 14:55 2 TAB Trimethoprim/ Sulfamethoxazole (BactRIM DS) 2 tab TID PO 06/06/24 09:30 06/11/24 21:54 DC 06/10/24 13:58 2 TAB Trimethoprim/ Sulfamethoxazole 160 mg/Dextrose 250 ml @ 333.333 mls/hr BID@0600,1800 IV 06/22/24 06:00 06/22/24 17:17 DC 06/22/24 06:25 333.333 MLS/HR Trimethoprim/ Sulfamethoxazole 160 mg/Dextrose 250 ml @ 333.333 mls/hr DAILY IV 06/23/24 09:00 07/02/24 05:59 06/23/24 11:27 333.333 MLS/HR Trimethoprim/ Sulfamethoxazole 320 mg/Dextrose 500 ml @ 333.333 mls/hr Q8H IV 06/19/24 00:30 06/21/24 21:30 DC 06/21/24 16:16 333.333 MLS/HR Trimethoprim/ Sulfamethoxazole 320 mg/Dextrose 500 ml @ 500 mls/hr Q8H IV 06/11/24 22:30 06/12/24 16:35 DC 06/12/24 06:39 500 MLS/HR Trimethoprim/ Sulfamethoxazole 320 mg/Dextrose 500 ml @ 500 mls/hr Q8H IV 06/12/24 18:00 06/13/24 11:13 DC 06/13/24 05:30 500 MLS/HR Trimethoprim/ Sulfamethoxazole 320 mg/Dextrose 500 ml @ 500 mls/hr Q8H IV 06/13/24 13:30 06/18/24 21:55 DC 06/18/24 14:08 500 MLS/HR Trimethoprim/ Sulfamethoxazole 320 mg/Dextrose 500 ml @ 500 mls/hr Q8H IV 06/18/24 11:59 06/19/24 00:56 DC 06/18/24 11:59 500 MLS/HR Valganciclovir (ValGANCIClovir HCL) 900 mg BID PO 06/11/24 21:00 06/13/24 08:37 DC Wound Care/ Dressing Products (Venelex Ointment) 1 VOLODYMYR AD TID TP 06/14/24 14:00 07/14/24 13:59 06/23/24 13:03 1 GM DIAGNOSTICS / RADIOLOGY: [ ] ASSESSMENT: Acute hypoxemic respiratory failure, POA Bilateral lower lobe bacterial pneumonia + MRSA POA, +Azra Suspected PCP PNA based on CT findings vs viral/Atypical PNA . 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 Continue fentanyl Wean off paralytic per critical care Continue to follow critical care input recommendation Continue the patient on Bactrim, meropenem, fluconazole. Continue gancyclovir Continue furosemide 20mg BID IV q.8 hours. Continue methylprednisolone 80mg TID IV Continue to follow infectious disease input and recommendation Continue to follow chest x-ray Continue to follow ABG Continue bronchodilators per respiratory therapist Replace electrolytes IV per protocol A.m. labs GI and DVT prophylaxis. Further orders to follow based on the above results Disposition: Remains admitted to the ICU, pending improvement clinical conditi on. Prognosis is poor guarded. Total ICU time spent greater than 30 minutes. HEATHER RICE MD Jun 23, 2024 13:27
--- NOTE | 2024-06-23 15:00 | PN ---
INFECTIOUS DISEASE PROGRESS NOTE Date of Service: Jun 23, 2024 SUBJECTIVE: This is a 49-year-old female patient who was admitted with chief complaint of shortness of breaths. A chest x-ray done on admission showed left lower lung pneumoniae. A CT chest showed bilateral pulmonary infiltrates but no evidence of PE. 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 Tested for cytomegalovirus and the results came back positive. On 06/11/2024 patient went into acute hypoxic respiratory failure requiring intubation. Patient was seen and examined at bedside in the ICU room 208. Patient currently remains intubated and sedated. Continues on FiO2 90%. Per report weaning was attempted but unsuccessful. Patient has developed pressure ulcers to sacrum and gluteus area. Continue with oral lesions. We will continue current IV antibiotics ganciclovir and Bactrim IV. Tolerating tube feedings well and no reports of nausea or vomiting. We will continue to follow patient's care. PHYSICAL EXAM EYES: Anicteric. Pupils equal and reactive. HENT: No oral thrush seen, moist Oral mucosa. NG tube. Oropharyngeal lesions. NECK: Supple, no JVD or thyromegaly. RESPIRATORY: Mechanical ventilation.. CARDIOVASCULAR: S1, S2 regular. No murmur heard. ABDOMEN: Soft, non tender, bowel sounds present, no organomegaly. CENTRAL NERVOUS SYSTEM: Intubated. SKIN: No rashes, no swelling. LYMPHATICS: No peripheral lymphadenopathy. MUSCULOSKELETAL: No joint swelling, erythema or tenderness. EXTREMITIES: No cyanosis or clubbing. BACK: No deformity, no pressure ulcer. GENITOURINARY: No dysuria or hematuria. Souza catheter. Vital Sign (Last 12 Hours) 06/23/24 06/23/24 06/23/24 06/23/24 03:00 04:00 04:00 04:00 Temp 99.0 99.0 Pulse 111 107 Resp 34 22 B/P (MAP) 142/70 (94) 121/63 (82) 149/83 (105) Pulse Ox 94 96 FiO2 90 06/23/24 06/23/24 06/23/24 06/23/24 04:00 05:00 06:00 06:16 Pulse 90 97 101 Resp 17 18 22 B/P (MAP) 99/56 (70) 109/60 (76) 99/60 (73) Pulse Ox 95 92 93 O2 Delivery Ventilator+ FiO2 90 06/23/24 06/23/24 06/23/24 06/23/24 06:18 07:00 07:00 07:00 Temp 98.4 Pulse 99 92 Resp 13 B/P (MAP) 98/55 (69) Pulse Ox 96 96 O2 Delivery Ventilator+ FiO2 90 90 90 06/23/24 06/23/24 06/23/24 06/23/24 07:46 08:00 08:00 09:00 Temp 98.4 Pulse 92 95 90 Resp 17 14 16 B/P (MAP) 102/55 (71) 109/58 (75) 114/63 (80) 104/66 (79) Pulse Ox 94 96 96 06/23/24 06/23/24 06/23/24 06/23/24 09:15 09:19 09:25 09:30 Pulse 100 97 100 101 Resp 23 23 18 B/P (MAP) 108/60 (76) 106/56 (73) Pulse Ox 97 96 FiO2 90 06/23/24 06/23/24 06/23/24 06/23/24 09:45 09:46 10:00 10:15 Pulse 99 97 104 104 Resp 19 17 35 14 B/P (MAP) 112/57 (75) 111/57 (75) 128/59 (82) 151/71 (97) 126/68 (87) Pulse Ox 94 93 89 89 06/23/24 06/23/24 06/23/24 06/23/24 10:30 10:45 11:00 11:09 Pulse 99 93 89 89 Resp 20 20 23 20 B/P (MAP) 127/66 (86) 108/58 (75) 91/52 (65) 88/51 (63) 101/55 (70) Pulse Ox 91 91 91 93 06/23/24 06/23/24 06/23/24 06/23/24 11:15 11:30 11:45 11:46 Pulse 89 90 88 89 Resp 17 25 38 26 B/P (MAP) 86/49 (61) 97/56 (70) 108/57 (74) 106/57 (73) 105/61 (76) Pulse Ox 94 94 94 94 06/23/24 06/23/24 06/23/24 06/23/24 12:00 12:00 12:13 12:15 Temp 97.0 Pulse 90 94 Resp 22 25 B/P (MAP) 108/56 (73) 107/57 (74) Pulse Ox 94 94 FiO2 90 06/23/24 06/23/24 06/23/24 06/23/24 12:21 12:21 12:30 12:45 Pulse 89 96 99 Resp 34 27 B/P (MAP) 115/57 (76) 116/55 (75) Pulse Ox 92 92 88 O2 Delivery Ventilator+ FiO2 90 90 06/23/24 06/23/24 06/23/24 06/23/24 13:00 13:02 13:15 13:30 Pulse 98 97 99 100 Resp 31 21 26 28 B/P (MAP) 119/59 (79) 124/58 (80) 120/57 (78) Pulse Ox 90 88 89 06/23/24 06/23/24 13:45 13:46 Pulse 99 98 Resp 30 30 B/P (MAP) 123/60 (81) 123/61 (81) 128/71 (90) Pulse Ox 91 91 l Intake & Output (last 24hrs) 06/22/24 06/22/24 06/23/24 15:00 23:00 07:00 Intake Total 980.0 ml 1015.6 ml 1064.5 ml Output Total 1500 ml 1100 ml Balance 980.0 ml -484.4 ml -35.5 ml LABS: Laboratory: Test 06/23/24 11:12 06/23/24 09:10 06/23/24 04:32 06/22/24 23:58 Range/Units Whole Blood Glucose 182 H 70-110 MG/DL Blood Gas Specimen Type Arterial Arterial Blood pH 7.483 H 7.350-7.450 Arterial Blood Partial Pressure CO2 59 H 32-45 mmHg Arterial Blood Partial Pressure O2 109.5 H 83.0-108.0 mmHg Arterial Blood HCO3 43.0 H 21.0-28.0 mmol/L Arterial Blood Oxygen Saturation 98.2 H 94.0-98.0 % Arterial Blood Base Excess 16.3 H -2.0-3.0 mmol/L Blood Gas Temperature 37.0 35.5-37.0 CELSIUS Blood Gas Respiration Rate 34.0 min. Blood Gas Vent Mode PC 23 ROOM AIR FiO2 90.0 % Blood Gas PEEP 8 cm H2O Blood Gas Specimen Comment WENDY SILVA White Blood Count 6.6 4.8-10.8 K/uL Red Blood Count 3.11 L 4.00-5.50 MIL/uL Hemoglobin 10.4 L 12.0-16.0 g/dL Hematocrit 31.2 L 36-48 % Mean Corpuscular Volume 100.3 H 79-99 fL Mean Corpuscular Hemoglobin 33.4 H 27.0-33.0 pg Mean Corpuscular Hemoglobin Concent 33.3 32.0-36.0 g/dL Red Cell Distribution Width 13.0 11.0-15.5 % Platelet Count 125 L 130-400 K/uL Mean Platelet Volume 10.6 H 7.5-10.5 fL Immature Granulocyte % (Auto) 2.1 H 0-1 % Neutrophils (%) (Auto) 91.6 H 40.0-77.0 % Lymphocytes (%) (Auto) 1.8 L 21.0-51.0 % Monocytes (%) (Auto) 4.5 3.0-13.0 % Eosinophils (%) (Auto) 0.0 0.0-8.0 % Basophils (%) (Auto) 0.0 0.0-5.0 % Neutrophils # (Auto) 6.1 1.8-7.7 K/uL Lymphocytes # (Auto) 0.1 L 1.0-4.8 K/uL Monocytes # (Auto) 0.3 0.1-1.0 K/uL Eosinophils # (Auto) 0.00 0.00-0.70 K/uL Basophils # (Auto) 0.00 0.00-0.20 K/uL Absolute Immature Granulocyte (auto 0.14 0-1 K/uL Nucleated Red Blood Cells 0.0 0.0-0.19 % Sodium Level 135 L 136-145 mmol/L Potassium Level 5.4 H 3.5-5.1 mmol/L Chloride Level 92 L 101-111 mmol/L Carbon Dioxide Level 43 *H 21-32 mmol/L Blood Urea Nitrogen 37 H 7-18 mg/dL Creatinine 0.4 L 0.5-1.0 mg/dL Glomerular Filtration Rate Calc 121 >90 mL/min Random Glucose 199 H 70-105 mg/dL Total Calcium 7.9 L 8.5-10.1 mg/dL Total Bilirubin 0.2 0.2-1.0 mg/dL Aspartate Amino Transf (AST/SGOT) 51 H 10-37 U/L Alanine Aminotransferase (ALT/SGPT) 126 H 12-78 U/L Alkaline Phosphatase 119 50-136 U/L Total Protein 4.7 L 6.0-8.3 g/dL Albumin 1.6 L 3.5-5.0 g/dL Blood Gas Tidal Volume 0 ml Test 06/22/24 17:35 06/22/24 03:22 Range/Units Prothrombin Time 10.5 9.6-11.6 SEC Prothromb Time International Ratio <= 0.93 0.85-1.15 Activated Partial Thromboplast Time 25.4 L 26.3-35.5 SEC Fibrinogen 327 180-350 mg/dL D-Dimer Quantitative (PE/DVT) 4298 *H 0-500 ng/mL Hemoglobin (Blood Gas) 11.2 L 12.0-16.0 g/dL Sodium (Blood Gas) 130 L 136-145 MMOL/L Bedside Potassium (Blood Gas) 5.4 H 3.4-4.5 MMOL/L Bedside Chloride (Blood Gas) 83 *L 98-107 MMOL/L Bedside Glucose (Blood Gas) 184 H 65-95 MG/DL Bedside Ionized Calcium (Blood Gas) 1.12 L 1.15-1.33 MMOL/L Bedside Lactic Acid (Blood Gas) 1.50 H 0.36-0.75 MMOL/L ASSESSMENT: Acute hypoxic respiratory failure, s/p intubated on 06/11/2024. Pneumocystis carinii pneumonia. Positive for Cytomegalovirus. Positive HIV test. Infection with methicillin-resistant Staphylococcus aureus. Leukocytosis Obesity. Oral candidiasis. Anemia. PLAN: Continue Ganciclovir IV for 14 days. Continue Bactrim. Continue Meropenem as currently ordered. Continue fluconazole p.o. Continue critical care support. Continue mechanical ventilation support. Continue GI prophylaxis. Continue DVT prophylaxis. This case was reviewed and discussed with my supervising physician and the above assessment and plan was formulated and agreed upon. ATTESTATION BY PHYSICIAN I have seen and examined the patient. I reviewed the documentation, medical decision making, and treatment plan as noted by the mid-level provider above. I agree with the findings and plan of care. [place] MD, MIRTA L MANAGER GAME Jun 23, 2024 15:00
[2024-06-23] MEDS: CISATRACURIUM BESYLATE 100 MG in 0.9%NACL 100ML 100 ML IV SCH (16:46)
--- NOTE | 2024-06-23 18:30 | NUR ---
RED RASH NOTED TO FACE AND UPPER MID CHEST, PT HR HIGH 120'S, NIMBEX IS NEW MED STARTED RECENTLY AND STOPPED IMMEDIATELY, LEFT PICC LINE PORT ASPIRATED WITH 10ML OF BLOOD. CALLED BMP SOFTBALL WINDER FOR ORDERS. PT SATTING 96% ON VENT. Addendum: 06/23/24 at 1839 by RICARDO BARRAGAN RN RN 1834- AMISHA AG RETURNED BACK, GAVE ORDERS FOR BENEDRYL 25MG IVP NOW THEN Q6HRS PRN, D/C NIMBEX, AND PLACE ALLERGY. Addendum: 06/23/24 at 191 by RICARDO BARRAGAN RN RN 1844- S/P BENEDRLY PT HR COMING DOWN TO 120'S ,BP 130'S SYS, SATTING 96% TEMP DURING INITIAL ASSESSMENT 97.0 AX. WET COLD RAG PLACED ON FOREHEAD/EYES. NOTIFIED RAVEN ROSS NURSE. Addendum: 06/23/24 at 1919 by RICARDO BARRAGAN RN RN PHARMACY AWARE OF ALLERGY.
[2024-06-23] MEDS: DiphenhydrAMINE HCL 50 MG/ML VIAL IV PRN (18:54)
[2024-06-23] MEDS: DiphenhydrAMINE HCL 50 MG/ML VIAL ONE (18:54)
--- NOTE | 2024-06-23 20:15 | NUR ---
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 ORDERS RECIEVED AND CARRIED OUT
[2024-06-23] MEDS ORDERED: PHARMACY COMMUNICATION MISC SCH (20:30)
[2024-06-23] MEDS: VECURONIUM 10MG/10ML IV ONE ×2 (20:34→20:35)
[2024-06-23 21:12] LABS: ABG BASE EXCESS 13.3 mmol/L (-2.0-3.0); ABG HCO3 46.3 mmol/L (21.0-28.0); ABG OXYGEN SATURATION 98.4 % (94.0-98.0); ABG PCO2 111 mmHg (32-45); ABG PH 7.237 (7.350-7.450); PO2, ARTERIAL BG 152.8 mmHg (83.0-108.0); VENT MODE, BG PC IP34 (ROOM AIR)
--- NOTE | 2024-06-23 22:49 | NUR ---
MERGERS AND ACQUISITIONS CONSULTANT GELATIN DYNAMITE PACKING OPERATOR PAGED REGARDING ABG RESULTS NEW ORDER RECEIVED AND CARRIED OUT. FAMILY UPDATED ON PATIENT STATUS SON ASKED TO BE AT BEDSIDE.
[2024-06-24] VITALS (83 sets, daily range): BP systolic 100–225; BP diastolic 54–121; PULSE 62–108; RESP 12–43; TEMP 96.7–98.7; O2SAT 81–100
[2024-06-24 02:24] LABS: ABG BASE EXCESS 12.1 mmol/L (-2.0-3.0); ABG HCO3 42.2 mmol/L (21.0-28.0); ABG OXYGEN SATURATION 96.5 % (94.0-98.0); ABG PCO2 82 mmHg (32-45); ABG PH 7.328 (7.350-7.450); PO2, ARTERIAL BG 96.7 mmHg (83.0-108.0); VENT MODE, BG PC IP23 (ROOM AIR)
[2024-06-24 04:44] LABS: HEMATOCRIT 27.2 % (36-48); IMMATURE GRANULOCYTE ABSOLUTE 0.04 K/uL (0-1); LYMPHOCYTES # (AUTO) 0.1 K/uL (1.0-4.8); LYMPHOCYTES % (AUTO) 2.6 % (21.0-51.0); MEAN CORPUSCULAR HGB CONC 33.1 g/dL (32.0-36.0); MEAN CORPUSCULAR VOLUME 99.6 fL (79-99); MONOCYTES # (AUTO) 0.1 K/uL (0.1-1.0); MONOCYTES % (AUTO) 2.2 % (3.0-13.0); NEUTROPHILS # (AUTO) 4.3 K/uL (1.8-7.7); NEUTROPHILS % (AUTO) 94.3 % (40.0-77.0); PLATELET COUNT (AUTO) 110 K/uL (130-400); RED BLOOD CELL COUNT(AUTO) 2.73 MIL/uL (4.00-5.50); RED CELL DISTRIBUTION WIDTH 13.1 % (11.0-15.5); WHITE BLOOD COUNT (AUTO) 4.6 K/uL (4.8-10.8)
[2024-06-24 04:59] LABS: ALBUMIN 1.3 g/dL (3.5-5.0); BILIRUBIN,TOTAL 0.2 mg/dL (0.2-1.0); CREATININE 0.4 mg/dL (0.5-1.0); POTASSIUM 5.2 mmol/L (3.5-5.1); TOTAL PROTEIN, SERUM 4.3 g/dL (6.0-8.3)
--- NOTE | 2024-06-24 07:33 | PN ---
[facility] PROGRESS NOTE Date of Service: Jun 24, 2024 Time of Service: 07:31 SUBJECTIVE: [ ] Ms. Abdullahi is a 49-year-old female that was seen and examined today on 05/23/2024. Patient is a good historian and personal health. Patient's son Dagoberto Salcido is at bedside. Patient states that she came to the emergency department with a chief complaint of shortness of breath. Onset was two weeks ago. Location is to lungs. Duration is on and off. Character is described as "easily running out of air." Initially shortness and breath was only aggravated with climbing one or two flights of stairs but symptoms have progressively worsened and patient becomes short of breath even standing or walking short distances. There was no alleviating factors however previously symptoms were being controlled with daily morning albuterol nebulizer treatments. Patient denies any associated chest pain or dizziness. Patient reports an episode of COVID in December 2023. emergency department CBC unremarkable, chemistry unremarkable, urinalysis unremarkable, influenza screen negative, COVID negative, blood gas shows PO2 less than 45. Chest x-ray shows left lower lung pneumonia and minimal right lung base atelectasis. Upon arrival to the emergency department patient was placed on a BiPAP due to respiratory distress. 05/24/2024-patient was seen and examined at the bedside, still on BiPAP. Patient is able to speak, and says she feels much better than before. Patient says after COVID in December she developed severe bronchitis and she was on Solu-Medrol and albuterol, which did not help her much and later she had high fevers and shortness of breath which is when she came to the ED.Vitals afebrile pulse 76, RR 38 tachypneic , blood pressure 115/68, pulse oxygen 99 on BiPAP flow of 60. On ABG pH 7.47, pCO2 29, PO2 109.4, oxygen saturation 98.3. [place]565 potassium 4.1 BUN15 creatinine 0.5 GFR 114. We will closely monitor the patient. [employer] Manager consult noted waiting on the recommendation 05/25/24 patient was seen and examined and case discussed with RN and family by the bedside. She was breathing better today. She has been on BiPAP all night but now he was on 100% non-rebreather with further efforts to continue to wean the oxygen requirements down. 05/26/24 patient was seen and examined and case discussed with the RN. No acute events noted overnight. Appreciate pulmonology and ID input continue IV antibiotics and fluconazole. 05/27/24 patient is seen and examined at bedside, acute events overnight, case discussed with the RN, BP 131/64, afebrile, saturating 96-97% via Ventimask, FiO2 40%. The patient admits cough productive of clear phlegm. Serology tests reviewed, HIV preliminary positive, discussed with the patient. 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 We will continue the patient on IV antibiotics, continue fluconazole, continue to follow Pulmonary and ID input and recommendations. After provided in the preliminary results of HIV test, she denies any suicidal or homicidal ideations. 05/28 patient has been seen and examined, no acute events overnight, case discuss ed with the RN, during my visit patient is sitting comfortably in the chair, hemodynamically stable, off Ventimask, currently on 10 L via nasal cannula, saturating 98%, tolerated BiPAP overnight. she feels better, less shortness a breath, still admits cough productive of yellow phlegm. No chest pain. Getting IV antibiotics during my visit. HIV P24 antigen, nonreactive. We will continue to follow Pulmonary and Infectious Disease input and recommendations. 05/29 patient has been seen and examined, no acute events overnight, case discussed with the RN, during my visit patient is sitting comfortably in the chair, hemodynamically stable, remains on 10 L via nasal cannula, saturating 98%, still admits cough productive of yellow phlegm. No chest pain. Getting IV antibiotics during my visit. HIV P24 antigen, nonreactive. Pending CD4 cell count. We will continue to follow Pulmonary and Infectious Disease input and recommendations. 05/30 the patient has been seen and examined, no acute events overnight, BP 11 4/66, during my visit she is on Ventimask, saturating 95%, FiO2 60%. Without the Ventimask the patient desaturates to the low 70s. Patient tolerating BiPAP during the night. Still admits cough productive of thick yellow phlegm, no chest pain. Results of CD4 cell count reviewed, discussed with the patient. We will continue broad-spectrum IV antibiotics. Continue to follow Pulmonary and Infectious Disease input and recommendations. 05/31 the patient has been seen and examined, upgraded to the ICU, during my visit she is sitting in the chair, BP 113/72, heart rate of 109, she is on Oxymizer, 30 L, FiO2 100%. She is alert oriented x3, still admits cough productive of thick yellow phlegm, no chest pain. Hemoglobin 12.9, hematocrit 36.6, WBC 14.6. ABG with pH 7.4, pCO2 40, PO2. Chest x-ray shows left lower lobe infiltrate consistent with pneumonia. She is getting IV antibiotics during my visit. Patient will remain in the ICU, continue to follow critical Care as well as infectious disease input and recommendations. 06/01 patient is seen and examined, sitting comfortable in chair, awake, following commands, remains on high-flow oxygen, FiO2 70%, 30 L, BP 117/67, heart rate of 78, respiratory rate of 30-36, saturating 100%, CBC with a hemoglobin 13.6, hematocrit 38.9, WBC 12.4. Platelet count of 341. Chest x-ray showing persistent left lung infiltrate, cardiac size and mediastinum unremarkable. The bony structures are within the normal limits. Patient getting IV antibiotics during my visit. Patient to continue with the high-dose steroids. Serology test positive for Pneumocystis sandra. Patient on Bactrim two tablets p.o. t.i.d.. Continue also doxycycline and cefepime IV. Continue to follow infectious disease input and recommendation. Continue to follow Pulmonary input and recommendations. 06/02 patient is seen and examined at bedside, currently in prone position, alert oriented x3. CPT started last night, she has started having more loose phlegm expectorated. BP 114/74, tachycardic 114, saturating 95%, high-flow nasal cannula, 30 L, FiO2 80%. CBC with a hemoglobin 16.9, hemoglobin 14 0, hematocrit 39.8, platelet count 347. Chest x-ray shows persistent left lung infiltrate. 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 Serology test for toxoplasma currently pending. Patient on IV antibiotics as well as high-dose steroids. Continue to follow infectious Disease and Pulmonary input and recommendations. 06/03 patient seen at bedside, no acute events overnight. She continues with respiratory distress, with increasing oxygen requirements. Critical Care has discussed a possible need for intubation if she does not improve. She has been started on steroids due to underlying PCP pneumonia. WBC improved from 16.9 down to 13.5, sodium stable at 132, same as yesterday, lactic acid downtrending from 4.1 down to 3.2, remainder of her labs are relatively unremarkable. 06/04 patient seen at bedside, no acute events overnight. She remains on high- flow nasal cannula, mildly tachycardic. WBC elevated at 13.3, sodium decreased from 132 down to 129, remainder of her labs are relatively unremarkable. Continue to wean supplemental oxygen. Further care per critical Care 06/05 patient seen at bedside, no acute events overnight. She remains on high- flow nasal cannula with BiPAP overnight and is still tachycardic. Heart rate ranging from 104 up to 113, WBC improved from 13.3 down to 11.1, sodium decreased from 120 down to 126, remainder of her labs are relatively unremarkable. We will continue to wean oxygen as able. 06/06 Patient seen at bedside, no acute events overnight. She remains on high- flow nasal cannula with BiPAP overnight and is still tachycardic. Heart rate ranging from 104 up to 122, WBC improved from 11.1 down to 10.6, sodium improved from 126 up to 129, remainder of her labs are relatively unremarkable. We will continue to wean oxygen as able. 06/07 patient seen at bedside, no acute events overnight. She is still on high- flow nasal cannula, RT advised to wean oxygen, currently saturating 100% on 30L. She is tachycardic, sodium decreased from 129 down to 123, likely secondary to Bactrim. Patient is asymptomatic, will continue with bactrim, if sodium cont inues to decrease consider a holiday from bactrim. 06/08 patient seen at bedside, no acute events overnight. She is still on high- flow nasal cannula, RT advised to wean oxygen, currently saturating 100% on 30L. She is tachycardic, sodium stable at 123, same as yesterday. Pending improvement in respiratory status 06/09 patient seen at bedside, he remains on high-flow nasal cannula, we will continue to wean as able, appreciate pulmonology assistance, tachycardic with heart rate ranging from 123 up to 130. She is still having low-grade fevers at 100.8. Sodium increased from 123 up to 130, remainder of her labs are relatively unremarkable. 06/10 patient is seen and examined at bedside, remains on high-flow oxygen, she feels mildly anxious, no chest pain. Still with a cough productive of white phlegm. Still tachycardic, heart rate 117-122. Patient is still spiking low- grade fever. Hemoglobin 10.9, hematocrit 30.5. Sodium remained low at 128, BUN and creatinine of 16 and 0.4. 06/11 patient is seen and examined at bedside, patient now on AVAPS, FiO2 100%, patient became restless last night, she had to be started on Precedex. During my visit she remains alert oriented x3, no chest pain. BP 120/48, she is saturating 100%. Hemoglobin 10 point, hematocrit 31.3. ABG shows persistent hypoxemia, with a PO2 of 69.4. Chest x-ray shows extensive infiltrates on the left which is stable to somewhat increased, there has been interval development of perihilar infiltrate on the right. Normal bilateral lower extremity venous Doppler ultrasound. Continue the patient on prednisone 20 mg p.o. daily, continue Bactrim two tablets p.o. t.i.d. as well as fluconazole 100 mg p.o. daily. 06/12 patient is seen and examined at bedside, intubated, on mechanical ventilation, per discussion with the RN, patient was in respiratory distress yesterday, decision made to intubate the patient. During my visit the patient is midazolam, fentanyl, patient paralyzed, also on Nimbex. She is in a prone position. On pressor support with phenylephrine. Also on Precedex. She is also on hydrocortisone 100 mg IV q.8 hours. Son at bedside, updated. ABG shows pH 7.38, pCO2 47, PO2 122, bicarb of 27.7. 06/13 patient is seen and examined at bedside, remains intubated, on mechanical ventilation, remains on midazolam, fentanyl, patient paralyzed, also on Nimbex. She is in a prone position. On BP pressor support with phenylephrine. Patient is peep of seven. ABG pH 7.34, PO2 72.3. Chest x-ray reviewed, increasing bilateral infiltrates, increasing pneumomediastinum. 06/14 patient is seen and examined at bedside, remains intubated, on mechanical ventilation, prone position, remains on midazolam, fentanyl, patient paralyzed, also on Nimbex. She is in a prone position. Off pressors. Patient is peep of seven. ABG pH 7.34, PO2 72.3. Chest x-ray shows extensive bilateral infiltrates unchanged, no pneumothorax. 06/15 patient is seen and examined at bedside, remains intubated, on mechanical ventilation, prone position, remains paralyzed, on Nimbex. Off pressors. Patient is peep of 10. ABG pH 7.34, PO2 72.3. Chest x-ray shows extensive bilateral infiltrates unchanged, no pneumothorax. Overall condition remains unchanged. No family at bedside. 06/16 patient is seen and examined at bedside, remains intubated, on mechanical ventilation, discussed with the RN, the patient has been placed on supine position. Patient remains on pressor support. Remains on sedation with midazolam and fentanyl BP 114/60, afebrile saturating 96% FiO2 100%, peep of 8. ABG today with pCO2 63, PO2 91.5. Chest x-ray with severe consultation both lungs, unchanged, interval development of pneumomediastinum, moderate to severe. Continue Solu-Medrol 80 mg IV q.8 hours, continue broad-spectrum antibiotics with meropenem 1 g IV q.8 hours, the patient remains on Bactrim. Continue ganciclovir. 06/17 patient seen at bedside, no acute events overnight. She remains intubated, paralyzed on FiO2 of 100% and PEEP of eight. Continue to try to wean towards extubation. Chest x-ray appears mildly improved from yesterday. She remains supine. Hemoglobin improved from 8.4 up to 8.6, platelets decreased from 121 d own to 112, CO2 elevated at 41, same as yesterday, remainder of her labs are relatively unremarkable. Patient is still critical with poor prognosis continue further care per critical care team. 06/18 patient seen at bedside, no acute events overnight. She remains intubated and sedated, critical care weaning patient off paralyzing agents. She is still on FiO2 of 100% with PEEP of eight, PO2 on ABG 70.8 down from 80.5 yesterday demonstrating a worsening and her oxygenation within her blood at the same venti lator settings. PCO2 increased from 70 up to 75. Hemoglobin improved from 8.6 up to 9.0, platelets improved from 112 up to 127, CO2 increased from 41 up to 45, remainder of her labs are relatively unremarkable. 06/19 patient seen at bedside, no acute events overnight. She remains intubated and sedated, critical Care to continue trying to wean to extubation. Continue current care further recommendations per critical Care 2 patient is seen and examined at bedside, no acute events overnight, she remains intubated, on mechanical ventilation, off vasopressors, sedated with fentanyl and Versed, the patient on peep of 8, saturating 97%. 06/21 patient seen at bedside, no acute events overnight. She remains intubated, paralyzed on FiO2 of 100% and PEEP of eight. Continue to try to wean towards extubation. She remains supine. Chest x-ray stable. Hemoglobin at 8.6, hematocrit 28.4. remainder of her labs are relatively unremarkable. Patient is still critical with poor prognosis continue further care per critical care team. 06/22 patient seen at bedside, no acute events overnight. She remains intubated, paralyzed on FiO2 of 100% and PEEP of eight. Continue to try to wean towards extubation. She remains supine. Chest x-ray stable. Patient is still criti vito with poor prognosis continue further care per critical care team. 06/23 patient seen at bedside, no acute events overnight. She remains intubated, on FiO2 of 90% and PEEP of eight, ABG showing improved oxygenation will wean down to 80%. Continue to try to wean towards extubation. She remains supine. Chest x-ray improved from previous. Patient is still critical with poor p rognosis continue further care per critical care team. 06/24 patient seen at bedside, she had several desaturation episodes overnight however she is currently saturating well, ABG looks good. We will wean her FiO2 to 80% and continue to monitor. Continue to try and wean towards extubation. Hemoglobin decreased from 10.4 down to 9.0, platelets decreased from 125 down to 110, potassium decreased from 5.4 down to 5.2, CO2 increased from 43 up to 49, remainder of her labs are relatively unremarkable. REVIEW OF SYSTEMS 12 point review of systems negative unless noted in HPI PHYSICAL EXAM GENERAL APPEARANCE: Patient intubated, on mechanical ventilation. NEUROLOGICAL: Cranial nerves II-XII grossly intact. Motor is 5/5 in bilateral upper and lower extremities proximal to distal. No sensory deficits. HEENT: Face is symmetric. Pupils are equal and reactive. Extraocular movements are intact. NECK: Supple. No JVD. No thyromegaly. No submental, submandibular, pre- /postauricular, occipital or supraclavicular lymphadenopathy. CHEST: Normal chest expansion. No Telemetry. LUNGS: Bilateral rhonchi, no expiratory wheezing CARDIOVASCULAR: Regular. S1 and S2 normal. No appreciable rubs, murmurs or gallops. ABDOMEN: Soft, nontender, and nondistended. There is no rebound, voluntary guarding, or rigidity. : Deferred. No Souza. EXTREMITIES: Non-edematous and not cyanotic. No clubbing. Good capillary refill. SKIN: No skin breakdown. Vital Signs (last 8hr) Date Time Temp Pulse Resp B/P (MAP) Pulse Ox O2 Delivery O2 Flow Rate FiO2 06/24/24 06:00 71 25 113/65 (81) 95 103/63 (76) 06/24/24 05:30 71 19 109/63 (78) 97 06/24/24 05:00 69 37 100/60 (73) 97 06/24/24 04:30 69 30 100/59 (73) 95 06/24/24 04:00 96.6 06/24/24 04:00 85 06/24/24 04:00 91 Ventilator+ 85 06/24/24 04:00 74 25 102/58 (73) 95 06/24/24 03:30 77 26 114/62 (79) 90 104/58 (73) 06/24/24 03:00 87 30 140/71 (94) 93 06/24/24 02:57 88 85 06/24/24 02:30 95 34 126/64 (84) 97 06/24/24 02:08 89 21 06/24/24 02:00 88 35 118/62 (80) 97 06/24/24 01:30 87 35 118/62 (80) 97 115/55 (75) 06/24/24 01:00 79 25 112/61 (78) 97 06/24/24 00:36 89 85 06/24/24 00:30 74 17 110/60 (77) 94 06/24/24 00:00 85 06/24/24 00:00 81 43 101/57 (72) 92 06/24/24 00:00 92 Ventilator+ 85 06/24/24 00:00 98.8 LABS: Laboratory: Test 06/24/24 03:53 06/24/24 02:22 06/24/24 00:32 06/22/24 23:58 Range/Units White Blood Count 4.6 #L 4.8-10.8 K/uL Red Blood Count 2.73 L 4.00-5.50 MIL/uL Hemoglobin 9.0 L 12.0-16.0 g/dL Hematocrit 27.2 L 36-48 % Mean Corpuscular Volume 99.6 H 79-99 fL Mean Corpuscular Hemoglobin 33.0 27.0-33.0 pg Mean Corpuscular Hemoglobin Concent 33.1 32.0-36.0 g/dL Red Cell Distribution Width 13.1 11.0-15.5 % Platelet Count 110 L 130-400 K/uL Mean Platelet Volume 10.2 7.5-10.5 fL Immature Granulocyte % (Auto) 0.9 0-1 % Neutrophils (%) (Auto) 94.3 H 40.0-77.0 % Lymphocytes (%) (Auto) 2.6 L 21.0-51.0 % Monocytes (%) (Auto) 2.2 L 3.0-13.0 % Eosinophils (%) (Auto) 0.0 0.0-8.0 % Basophils (%) (Auto) 0.0 0.0-5.0 % Neutrophils # (Auto) 4.3 1.8-7.7 K/uL Lymphocytes # (Auto) 0.1 L 1.0-4.8 K/uL Monocytes # (Auto) 0.1 0.1-1.0 K/uL Eosinophils # (Auto) 0.00 0.00-0.70 K/uL Basophils # (Auto) 0.00 0.00-0.20 K/uL Absolute Immature Granulocyte (auto 0.04 0-1 K/uL Nucleated Red Blood Cells 0.0 0.0-0.19 % Sodium Level 140 136-145 mmol/L Potassium Level 5.2 H 3.5-5.1 mmol/L Chloride Level 98 L 101-111 mmol/L Carbon Dioxide Level 49 *H 21-32 mmol/L Blood Urea Nitrogen 38 H 7-18 mg/dL Creatinine 0.4 L 0.5-1.0 mg/dL Glomerular Filtration Rate Calc 121 >90 mL/min Random Glucose 167 H 70-105 mg/dL Total Calcium 7.8 L 8.5-10.1 mg/dL Total Bilirubin 0.2 0.2-1.0 mg/dL Aspartate Amino Transf (AST/SGOT) 38 H 10-37 U/L Alanine Aminotransferase (ALT/SGPT) 98 #H 12-78 U/L Alkaline Phosphatase 103 50-136 U/L Total Protein 4.3 L 6.0-8.3 g/dL Albumin 1.3 L 3.5-5.0 g/dL Blood Gas Specimen Type Arterial Arterial Blood pH 7.328 L 7.350-7.450 Arterial Blood Partial Pressure CO2 82 *H 32-45 mmHg Arterial Blood Partial Pressure O2 96.7 83.0-108.0 mmHg Arterial Blood HCO3 42.2 H 21.0-28.0 mmol/L Arterial Blood Oxygen Saturation 96.5 94.0-98.0 % Arterial Blood Base Excess 12.1 H -2.0-3.0 mmol/L Blood Gas Temperature 37.0 35.5-37.0 CELSIUS Blood Gas Respiration Rate 34.0 min. Blood Gas Vent Mode PC IP23 ROOM AIR FiO2 85.0 % Blood Gas PEEP 8 cm H2O Blood Gas Specimen Comment VANDANA RN ,AL Whole Blood Glucose 201 H 70-110 MG/DL Blood Gas Tidal Volume 0 ml Test 06/22/24 17:35 Range/Units Prothrombin Time 10.5 9.6-11.6 SEC Prothromb Time International Ratio <= 0.93 0.85-1.15 Activated Partial Thromboplast Time 25.4 L 26.3-35.5 SEC Fibrinogen 327 180-350 mg/dL D-Dimer Quantitative (PE/DVT) 4298 *H 0-500 ng/mL Current Medications Medications (Trade) Dose Ordered Sig/Julita Route PRN Reason Start Time Stop Time Status Last Admin Dose Admin Acetaminophen (TYLenol 650MG ELIXIR) 650 mg Q6H PRN PO MILD PAIN (1-3) 06/04/24 08:30 07/04/24 08:29 06/10/24 20:07 650 MG Acetaminophen (TYLenol 650MG SUPPOSITORY) 650 mg Q6H PRN RC MILD PAIN (1-3) 05/23/24 20:30 06/22/24 20:29 DC Acetylcysteine (MUComyst 20% 4ML) 400mg = 2ml [id number] IH 06/02/24 00:00 06/05/24 15:52 DC 06/05/24 11:35 200 MG Albuterol (DUOneb) 1 udvial [id number] IH 05/24/24 00:00 06/10/24 10:28 DC 06/10/24 06:45 1 UDVIAL Alprazolam (XANax 0.5MG) 0.5 mg Q8H PRN PO ANXIETY 06/10/24 13:30 07/10/24 13:29 06/23/24 20:13 0.5 MG Artificial Tears (Artificial Tears) 1 DROP OR AD Q8H OU 06/11/24 14:30 07/11/24 14:29 06/24/24 06:23 1 DROP Azithromycin 250 ml @ 250 mls/hr Q24H IVPB 05/24/24 17:00 05/24/24 14:41 DC Azithromycin 250 ml @ 250 mls/hr Q24H STAT IVPB 05/23/24 17:17 05/24/24 14:41 DC 05/23/24 17:45 250 MLS/HR Benzocaine (Cepacol Sore Throat Lozenge) 1 each Q4H PRN MM SORE THROAT 06/08/24 10:00 07/08/24 09:59 06/09/24 07:44 1 EACH Bisacodyl (DulcoLAX) 10 mg DAILY PRN RC CONSTIPATION 06/08/24 14:00 07/08/24 13:59 06/23/24 10:00 10 MG Cadexomer Iodine (Iodosorb Gel 40gm) 1 APPL TO RIGHT FAC... DAILY TP 06/19/24 09:00 07/18/24 08:59 06/23/24 08:21 1 APPL Cadexomer Iodine (Iodosorb Gel 40gm) 1 appl DAILY TP 06/18/24 09:00 06/19/24 07:23 DC 06/18/24 14:09 1 APPL Cefepime HCl (MAXipime 2 gm vial) 2 gm Q12H IVPB 05/24/24 15:00 06/03/24 14:59 DC 06/03/24 03:18 2 GM Ceftriaxone Sodium (ROCEphine 1G INJ) 1 gm Q24H IVPB 05/24/24 17:30 05/24/24 14:41 DC Chlorhexidine Gluconate (Peridex) 15 ml Q6H MM 06/07/24 17:00 06/11/24 14:27 DC 06/10/24 12:22 15 ML Chlorhexidine Gluconate (Peridex) 15 ml Q8H MM 06/11/24 14:30 06/25/24 14:29 06/24/24 06:23 15 ML Cisatracurium Besylate (Nimbex) ONCE IVP 06/11/24 14:30 06/11/24 15:57 DC Cisatracurium Besylate 100 mg/ Sodium Chloride 100 ml @ 0 mls/hr PROTOCOL IV 06/11/24 23:30 06/23/24 16:20 DC 06/17/24 09:27 14.94 MLS/HR Cisatracurium Besylate 100 mg/ Sodium Chloride 100 ml @ 0 mls/hr PROTOCOL IV 06/23/24 16:30 06/23/24 18:43 DC 06/23/24 16:46 2.6 MLS/HR Clotrimazole (Mycelex) 10 mg TID MM 06/04/24 21:00 06/14/24 08:39 DC 06/13/24 20:28 10 MG Dexmedetomidine/ Sodium Chloride (PRECEdex 400MCG/ 100ML-NS) 400 mcg PROTOCOL IV 06/10/24 19:30 07/10/24 19:29 06/23/24 19:12 400 MCG Diphenhydramine HCl (BENAdryl INJ) 25 mg Q6H PRN IV ITCHING 06/23/24 19:00 07/23/24 18:59 06/23/24 18:54 25 MG Dobutamine HCl/ Dextrose 250 ml @ 0 mls/hr PROTOCOL IV 06/12/24 16:30 06/12/24 16:53 DC Doxycycline Hyclate 250 ml @ 125 mls/hr Q12H IV 05/24/24 16:30 06/03/24 16:29 DC 06/03/24 04:23 125 MLS/HR Enoxaparin Sodium (Lovenox 80mg) 40 mg DAILY SQ 06/15/24 09:00 06/15/24 09:30 DC Enoxaparin Sodium (Lovenox 80mg) 80 mg BID SQ 06/11/24 09:00 06/14/24 23:28 DC 06/14/24 20:33 80 MG Enoxaparin Sodium (Lovenox) 40 mg DAILY SQ 06/15/24 09:30 07/15/24 09:29 06/23/24 08:20 40 MG Enoxaparin Sodium (Lovenox) 40 mg Q24H SQ 05/23/24 21:00 06/11/24 04:36 DC 06/10/24 20:07 40 MG Famotidine (Pepcid 20mg Vial) 20 mg DAILY IV 05/24/24 09:00 06/14/24 08:39 DC 06/13/24 08:15 20 MG Fentanyl Citrate 2500 mcg/Sodium Chloride 250 ml @ 0 mls/hr AD PRN IV TITRATE 06/17/24 05:30 06/17/24 05:18 DC Fentanyl/Sodium Chloride 250 ml @ 0.1 mls/hr PROTOCOL IV 06/12/24 00:00 06/17/24 00:00 DC 06/16/24 17:36 0.1 MLS/HR Fentanyl/Sodium Chloride 250 ml @ 0 mls/hr AD PRN IV ICU SEDATION 06/17/24 05:30 06/22/24 05:29 DC 06/21/24 19:51 30 MLS/HR Fentanyl/Sodium Chloride 250 ml @ 0 mls/hr PROTOCOL IV 06/22/24 15:00 06/27/24 14:59 06/24/24 06:21 0 MLS/HR Fluconazole (DiFLUCan 100 mg TAB) 200 mg DAILY PO 06/05/24 09:00 07/05/24 08:59 06/23/24 08:20 200 MG Fluconazole/ Sodium Chloride 100 ml @ 100 mls/hr DAILY IV 05/26/24 09:00 05/27/24 15:57 DC 05/27/24 09:07 100 MLS/HR Furosemide (LASix 20MG VIAL) 20 mg DAILY IV 05/31/24 09:00 06/07/24 13:18 DC 06/03/24 08:38 20 MG Furosemide (LASix 20MG VIAL) 20 mg DAILY IV 06/17/24 10:00 06/17/24 12:13 DC 06/17/24 09:46 20 MG Furosemide (LASix 20MG VIAL) 20 mg Q12H IV 06/11/24 11:00 06/13/24 09:31 DC 06/12/24 21:54 20 MG Furosemide (LASix 20MG VIAL) 20 mg Q12H IV 06/17/24 22:00 06/18/24 10:01 DC 06/18/24 09:44 20 MG Furosemide (LASix 20MG VIAL) 20 mg Q8H IV 06/13/24 09:30 06/16/24 11:00 DC 06/16/24 08:44 20 MG Furosemide (LASix 20MG VIAL) 20 mg Q8H IV 06/19/24 17:00 07/19/24 16:59 06/24/24 00:38 20 MG Ganciclovir Sodium 430 mg/ Sodium Chloride 100 ml @ 100 mls/hr Q12H IV 06/13/24 09:00 07/13/24 08:59 06/23/24 21:59 100 MLS/HR Ganciclovir Sodium 500 mg/ Sodium Chloride 100 ml @ 100 mls/hr Q12H IV 06/11/24 18:00 06/11/24 15:48 DC Ganciclovir Sodium (Ganciclovir Sodium) 500 mg Q12H IV 06/12/24 17:00 06/13/24 08:35 DC Guaifenesin/ Dextromethorphan (RobiTUSSin DM 200/20MG 10ML) 10 ml Q4H PRN PO COUGH 05/23/24 20:30 06/22/24 20:29 DC 06/10/24 20:07 10 ML Hydrocortisone Sodium Succinate (Solu-corTEF 100MG) 100 mg Q8H IV 06/11/24 05:00 06/14/24 08:39 DC 06/14/24 06:13 100 MG Hydroxyzine HCl (ATArax 25MG TAB) 25 mg TID PRN PO ITCHING 06/10/24 14:00 07/10/24 13:59 06/23/24 20:13 25 MG Insulin Human Regular (humuLIN R 100 UNIT/ML 3ML) INSULIN SLIDING SCAL... ACHS SQ 06/19/24 16:30 06/20/24 15:07 DC 06/20/24 12:30 5 UNIT Insulin Human Regular (humuLIN R 100 UNIT/ML 3ML) INSULIN SLIDING SCAL... Q6H6 SQ 06/20/24 18:00 07/19/24 16:29 06/24/24 01:09 3 UNIT Ipratropium [place] (AtrovENT UD) 0.5 MG [id number] IH 06/10/24 14:00 07/10/24 13:59 06/24/24 06:30 0.5 MG Lactated Ringer's (Lactated Ringers 1000ml) 500 ml ONCE IV 06/02/24 20:00 06/02/24 19:54 DC Levofloxacin/ Dextrose 100 ml @ 100 mls/hr Q24H IV 05/24/24 15:00 05/24/24 16:16 DC Magnesium Sulfate 50 ml @ 0 mls/hr PROTOCOL PRN IV hypomagnesemia 05/28/24 08:00 06/27/24 07:59 06/11/24 05:26 50 MLS/HR Meropenem (Merrem 1gm) 1 gm Q8H IVPB 06/13/24 15:00 06/18/24 21:57 DC 06/18/24 15:34 1 GM Meropenem (Merrem 1gm) 1 gm Q8H IVPB 06/19/24 01:00 06/21/24 00:59 DC 06/20/24 16:50 1 GM Meropenem (Merrem) 1 gm Q8H IVPB 06/11/24 15:00 06/13/24 11:52 DC 06/13/24 08:14 1 GM Meropenem 1 gm/ Sodium Chloride 100 ml @ 33.333 mls/ hr Q8H IV 06/11/24 14:30 06/11/24 14:28 DC Methylprednisolone Sodium Succinate (Solu-medROL 40MG) 20 mg Q12H IVP 06/05/24 07:00 06/09/24 09:13 DC 06/09/24 07:25 20 MG Methylprednisolone Sodium Succinate (Solu-medROL 40MG) 40 mg Q12H IVP 05/28/24 18:00 05/29/24 16:45 DC 05/29/24 05:32 40 MG Methylprednisolone Sodium Succinate (Solu-medROL 40MG) 40 mg Q6H IVP 05/29/24 16:30 06/04/24 16:44 DC 06/04/24 11:13 40 MG Methylprednisolone Sodium Succinate (Solu-medROL 40MG) 40 mg Q6H IVP 06/04/24 18:00 06/05/24 00:24 DC 06/04/24 23:48 40 MG Methylprednisolone Sodium Succinate (Solu-medROL 40MG) 40 mg Q8H IVP 05/24/24 01:00 05/25/24 21:51 DC 05/25/24 17:28 40 MG Methylprednisolone Sodium Succinate (Solu-medROL 40MG) 60 mg Q6H IVP 05/25/24 22:00 05/28/24 02:25 DC 05/27/24 23:55 60 MG Methylprednisolone Sodium Succinate (Solu-medROL 40MG) 60 mg Q6H IVP 05/28/24 06:00 05/28/24 08:27 DC 05/28/24 06:47 60 MG Methylprednisolone Sodium Succinate (Solu-medROL 40MG) 60 mg Q6H IVP 06/11/24 02:30 06/11/24 04:23 DC 06/11/24 02:46 60 MG Methylprednisolone Sodium Succinate (Solu-medROL 40MG) 80 mg Q8H IVP 06/14/24 17:00 07/14/24 08:59 06/24/24 00:39 80 MG Methylprednisolone Sodium Succinate (Solu-medROL 125MG) 80 mg Q8H IVP 06/14/24 09:00 06/14/24 14:53 DC 06/14/24 08:48 80 MG Metoclopramide HCl (regLAN 10MG/ 10ML UD CUP) 5 mg TIDAC PO 06/22/24 07:30 07/22/24 07:29 06/24/24 06:23 5 MG Metronidazole/ Sodium Chloride (flaGYL) 500 mg Q8H IV 05/25/24 22:00 05/25/24 21:56 DC Midazolam HCl 50 ml @ 0 mls/hr AD PRN IV TITRATE 06/12/24 01:30 06/12/24 08:30 DC 06/12/24 02:30 10 MLS/HR Midazolam HCl 100 ml @ 0 mls/hr AD PRN IV TITRATE 06/12/24 09:00 07/12/24 01:29 06/24/24 07:14 0 MLS/HR Morphine Sulfate (morPHINE 4MG SYG) 4 mg Q4H PRN IM RESPIRATORY SYMPTOMS 06/11/24 03:30 06/14/24 23:33 DC 06/11/24 03:27 4 MG Norepinephrine 250 ml @ 0 mls/hr PROTOCOL IV 06/23/24 21:00 07/23/24 20:59 Ondansetron HCl (zoFRAN 4MG INJ) 4 mg Q6H PRN IV NAUSEA/VOMITING 05/23/24 20:30 06/22/24 20:29 DC Pantoprazole Sodium (PROTonix 40MG INJ) 40 mg BID IVP 06/12/24 21:00 07/12/24 20:59 06/23/24 20:13 40 MG Pharmacy Profile Note (Lace Assessment) 1 each AD MISC 06/17/24 16:30 06/17/24 16:27 DC Pharmacy Profile Note (Pharmacy Communication) 1 each ONCE MISC 06/11/24 14:30 06/11/24 15:53 DC Pharmacy Profile Note (Pharmacy Communication) 1 each ONCE MISC 06/11/24 20:30 06/11/24 20:14 DC Pharmacy Profile Note (Pharmacy Communication) 1 each ONCE MISC 06/12/24 17:00 06/12/24 17:07 DC Pharmacy Profile Note (Pharmacy Communication) 1 each ONCE MISC 06/23/24 20:30 06/23/24 20:32 DC Phenylephrine HCl 10 mg/Sodium Chloride 251 ml @ 0 mls/hr AD PRN IV DIRECTED 06/11/24 03:00 06/12/24 18:12 DC 06/12/24 14:10 47 MLS/HR Phenylephrine HCl 50 mg/Sodium Chloride 250 ml @ 0 mls/hr PROTOCOL PRN IV PROTOCOL 06/12/24 18:00 07/12/24 17:59 06/13/24 08:57 12.45 MLS/HR Polyethylene Glycol (MIRalax 3350 17 GM POWD.PACK) 17 gm DAILY PO 06/22/24 09:00 07/22/24 08:59 06/23/24 08:19 17 GM Potassium Chloride 100 ml @ 100 mls/hr AD PRN IV POTASSIUM PROTOCOL 05/28/24 08:00 06/27/24 07:59 Potassium Chloride (K-Dur/Klor-Con 20meq) 20 meq AD PRN PO POTASSIUM PROTOCOL 05/28/24 08:00 06/27/24 07:59 Potassium Chloride (KCl 10% Elixir 20meq/15ml) 20 meq AD PRN PO POTASSIUM PROTOCOL 05/28/24 08:00 06/27/24 07:59 Prednisone (deltaSONE/ oraSONE 20MG TAB) 20 mg DAILY PO 06/10/24 09:00 06/14/24 08:39 DC 06/13/24 08:15 20 MG Rocuronium [place] (ZemuRON) 10 mg Q1H PRN IV RESP DISTRESS/VENT DISYNCHRONY 06/11/24 20:30 06/11/24 23:29 DC 06/11/24 20:33 10 MG Rocuronium [place] (ZemuRON) 50 mg Q4H PRN IV VENT DYSSYNCHRONY 06/17/24 16:30 06/23/24 16:19 DC 06/23/24 04:03 50 MG Sodium Chloride 500 ml @ 500 mls/hr Q1H IV 06/02/24 20:00 06/02/24 20:59 DC 06/02/24 21:34 500 MLS/HR Sodium Chloride 1,000 ml @ 75 mls/hr [id number] IV 06/07/24 13:30 06/10/24 17:02 DC 06/10/24 09:05 75 MLS/HR Sodium Chloride (Sodium Chloride) 1,000 mg BIDAC PO 06/07/24 16:30 06/09/24 07:28 DC 06/08/24 16:58 1,000 MG Sodium Chloride (Sodium Chloride) 1,000 mg BIDAC PO 06/09/24 07:30 06/12/24 16:35 DC 06/12/24 12:30 1,000 MG Sodium Chloride (Sodium Chloride) 1,000 mg Q12H PO 06/12/24 21:00 07/09/24 07:29 06/23/24 20:13 1,000 MG Sodium Zirconium Cyclosilicate (Lokelma) 5 gm DAILY10 PO 06/08/24 10:30 06/10/24 10:29 DC 06/08/24 10:50 5 GM Trimethoprim/ Sulfamethoxazole (BactRIM DS) 1 tab BID PO 05/26/24 21:00 05/29/24 16:18 DC 05/29/24 08:07 1 TAB Trimethoprim/ Sulfamethoxazole (BactRIM DS) 2 tab TID PO 05/29/24 16:30 06/05/24 20:59 DC 06/05/24 14:55 2 TAB Trimethoprim/ Sulfamethoxazole (BactRIM DS) 2 tab TID PO 06/06/24 09:30 06/11/24 21:54 DC 06/10/24 13:58 2 TAB Trimethoprim/ Sulfamethoxazole 160 mg/Dextrose 250 ml @ 333.333 mls/hr BID@0600,1800 IV 06/22/24 06:00 06/22/24 17:17 DC 06/22/24 06:25 333.333 MLS/HR Trimethoprim/ Sulfamethoxazole 160 mg/Dextrose 250 ml @ 333.333 mls/hr DAILY IV 06/23/24 09:00 07/02/24 05:59 06/23/24 11:27 333.333 MLS/HR Trimethoprim/ Sulfamethoxazole 320 mg/Dextrose 500 ml @ 333.333 mls/hr Q8H IV 06/19/24 00:30 06/21/24 21:30 DC 06/21/24 16:16 333.333 MLS/HR Trimethoprim/ Sulfamethoxazole 320 mg/Dextrose 500 ml @ 500 mls/hr Q8H IV 06/11/24 22:30 06/12/24 16:35 DC 06/12/24 06:39 500 MLS/HR Trimethoprim/ Sulfamethoxazole 320 mg/Dextrose 500 ml @ 500 mls/hr Q8H IV 06/12/24 18:00 06/13/24 11:13 DC 06/13/24 05:30 500 MLS/HR Trimethoprim/ Sulfamethoxazole 320 mg/Dextrose 500 ml @ 500 mls/hr Q8H IV 06/13/24 13:30 06/18/24 21:55 DC 06/18/24 14:08 500 MLS/HR Trimethoprim/ Sulfamethoxazole 320 mg/Dextrose 500 ml @ 500 mls/hr Q8H IV 06/18/24 11:59 06/19/24 00:56 DC 06/18/24 11:59 500 MLS/HR Valganciclovir (ValGANCIClovir HCL) 900 mg BID PO 06/11/24 21:00 06/13/24 08:37 DC Wound Care/ Dressing Products (Venelex Ointment) 1 VOLODYMYR AD TID TP 06/14/24 14:00 07/14/24 13:59 06/23/24 20:14 1 GM DIAGNOSTICS / RADIOLOGY: [ ] ASSESSMENT: Acute hypoxemic respiratory failure, POA Bilateral lower lobe bacterial pneumonia + MRSA POA, +Azra Suspected PCP PNA based on CT findings vs viral/Atypical PNA . 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 Continue fentanyl Wean off paralytic per critical care Continue to follow critical care input recommendation Continue the patient on Bactrim, meropenem, fluconazole. Continue gancyclovir Continue furosemide 20mg BID IV q.8 hours. Continue methylprednisolone 80mg TID IV Continue to follow infectious disease input and recommendation Continue to follow chest x-ray Continue to follow ABG Continue bronchodilators per respiratory therapist Replace electrolytes IV per protocol A.m. labs GI and DVT prophylaxis. Further orders to follow based on the above results Disposition: Remains admitted to the ICU, pending improvement clinical condition. Prognosis is poor guarded. Total ICU time spent greater than 30 minutes. HEATHER RICE MD Jun 24, 2024 07:33
[2024-06-24 07:44] LABS: ABG BASE EXCESS 14.9 mmol/L (-2.0-3.0); ABG HCO3 41.5 mmol/L (21.0-28.0); ABG OXYGEN SATURATION 89.9 % (94.0-98.0); ABG PCO2 63 mmHg (32-45); ABG PH 7.438 (7.350-7.450); CARBON MONOXIDE 1.3 % (0.5-1.5); HHb 9.9; PO2, ARTERIAL BG 59.8 mmHg (83.0-108.0)
[2024-06-24] MEDS: kayEXALate 15GM/60ML RC ONE (09:23)
--- NOTE | 2024-06-24 09:53 | NUR ---
DR JESSICA PAREDES spoke to Dr Mccullough regarding meeting with son to discuss pt's current condition and options. Dr Sullivan spoke to Abbe, pt's nurse and is requesting Tony NETWORK CONTROL OPERATOR call him. Dr Mccullough has questions he wants answered before he talks to pt's son. Abbe to provider Tony LION with Dr Mccullough's contact #.
--- NOTE | 2024-06-24 11:11 | HMCIMG ---
CHEST 1VW HISTORY: Pneumonia COMPARISON: 06/23/2024 FINDINGS: A frontal projection of the chest was obtained. Mild bilateral pulmonary infiltrates are seen may be related to mild pulmonary vascular congestion with possible superimposed pneumonitis. The heart is borderline enlarged. All the lines and tubes are again seen in place. No evidence of aortic calcification is seen. IMPRESSION: 1. Mild bilateral pulmonary infiltrates are seen may be related to mild pulmonary vascular congestion with possible superimposed pneumonitis.
--- NOTE | 2024-06-24 12:15 | NUR ---
HELENA AT BEDSIDE. MD DISCUSS CODE STATUS AND PLAN OF CARE WITH SON, DAUGHTER AND SISTER.
[2024-06-24] MEDS ORDERED: PHARMACY COMMUNICATION MISC SCH (13:00)
--- NOTE | 2024-06-24 15:14 | NUR ---
[facility] Meghna spoke to Jarred at [facility] and informed him that Dr Wilks was asking if [facility] would provide anti viral medication for pt since [facility] does not have. Jarred to talk to medical dept and have them call me Sw recd message from Tej Director of Clinical Operations at [facility]. Called said he was sending a rep with medications and a MARTHA for pt.
--- NOTE | 2024-06-24 15:57 | NUR ---
ANTIVIRAL MEDICATIONS ARRIVED FROM [facility]. FARAZ FAMILY PLANNING KRAFT DIGESTER OPERATOR BROUGHT IN 4 BOTTLES OF Biktarvy. BOTTLES GIVEN TO PHARMACY.
[2024-06-24] MEDS: BIKTARVY PO SCH (17:20)
--- NOTE | 2024-06-24 18:48 | PN ---
INFECTIOUS DISEASE PROGRESS NOTE Date of Service: Jun 24, 2024 SUBJECTIVE: This is a 49-year-old female patient who was admitted with chief complaint of shortness of breaths. A chest x-ray done on admission showed left lower lung pneumoniae. A CT chest showed bilateral pulmonary infiltrates but no evidence of PE. 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 Tested for cytomegalovirus and the results came back positive. On 06/11/2024 patient went into acute hypoxic respiratory failure requiring intubation. Patient was seen and examined at bedside in the ICU room 208. Patient currently remains intubated and sedated. Continues on FiO2 90%. Patient with hospital-acquired decubitus pressure ulcers to sacrum and gluteus area. We will continue current IV antibiotics ganciclovir and Bactrim IV. ammonia worker consult to reach out to [facility] for possible obtaining HIV medications for patient. We will continue to follow patient's care. PHYSICAL EXAM EYES: Anicteric. Pupils equal and reactive. HENT: No oral thrush seen, moist Oral mucosa. NG tube. Oropharyngeal lesions. NECK: Supple, no JVD or thyromegaly. RESPIRATORY: Mechanical ventilation.. CARDIOVASCULAR: S1, S2 regular. No murmur heard. ABDOMEN: Soft, non tender, bowel sounds present, no organomegaly. CENTRAL NERVOUS SYSTEM: Intubated. SKIN: No rashes, no swelling. LYMPHATICS: No peripheral lymphadenopathy. MUSCULOSKELETAL: No joint swelling, erythema or tenderness. EXTREMITIES: No cyanosis or clubbing. BACK: No deformity, no pressure ulcer. GENITOURINARY: No dysuria or hematuria. Souza catheter. Vital Sign (Last 12 Hours) 06/24/24 06/24/24 06/24/24 06/24/24 06:45 07:00 07:15 07:30 Pulse 66 82 82 Resp 19 18 15 B/P (MAP) 145/76 (99) 157/84 (108) 164/84 (110) Pulse Ox 83 92 88 93 O2 Delivery Ventilator+ FiO2 90 90 90 85 06/24/24 06/24/24 06/24/24 06/24/24 07:30 07:45 07:46 08:00 Temp 98.2 Pulse 71 92 Resp 33 28 B/P (MAP) 174/88 (116) 161/88 (112) Pulse Ox 90 93 FiO2 90 90 100 06/24/24 06/24/24 06/24/24 06/24/24 08:00 08:00 08:15 08:30 Pulse 85 88 89 Resp 26 B/P (MAP) 152/84 (106) 137/74 (95) 125/69 (87) 152/82 (105) Pulse Ox 94 97 99 FiO2 100 90 90 90 06/24/24 06/24/24 06/24/24 06/24/24 08:45 09:00 09:15 09:24 Pulse 88 88 89 62 Resp 28 B/P (MAP) 136/73 (94) 133/70 (91) 138/75 (96) Pulse Ox 99 100 100 FiO2 90 90 90 85 06/24/24 06/24/24 06/24/24 06/24/24 09:30 09:30 09:45 10:00 Pulse 83 97 96 93 Resp 26 B/P (MAP) 145/77 (99) 141/75 (97) 139/73 (95) Pulse Ox 100 99 99 FiO2 100 90 90 06/24/24 06/24/24 06/24/24 06/24/24 10:15 10:30 10:31 10:33 Pulse 97 97 95 Resp 30 22 34 B/P (MAP) 149/78 (101) 135/69 (91) 146/78 (100) Pulse Ox 99 99 FiO2 90 90 06/24/24 06/24/24 06/24/24 06/24/24 10:45 11:00 11:15 11:30 Pulse 97 97 95 97 Resp 33 B/P (MAP) 135/69 (91) 137/66 (89) 139/67 (91) 138/67 (90) Pulse Ox 99 95 95 95 FiO2 90 90 90 06/24/24 06/24/24 06/24/24 06/24/24 11:30 11:45 11:46 11:48 Pulse 71 77 96 Resp 31 24 B/P (MAP) 148/70 (96) 159/76 (103) 143/72 (95) Pulse Ox 95 93 92 O2 Delivery Ventilator+ FiO2 85 90 90 90 06/24/24 06/24/24 06/24/24 06/24/24 12:00 12:00 12:00 12:09 Temp 97.9 Pulse 94 98 Resp 12 20 B/P (MAP) 187/91 (123) 203/99 (133) 164/110 (128) Pulse Ox 90 86 FiO2 90 90 90 06/24/24 06/24/24 06/24/24 06/24/24 12:15 12:30 12:45 13:00 Pulse 76 88 86 84 Resp 17 18 18 18 B/P (MAP) 185/91 (122) 156/81 (106) 135/73 (93) 130/72 (91) 125/66 (85) Pulse Ox 87 87 90 89 FiO2 90 90 90 06/24/24 06/24/24 06/24/24 06/24/24 13:30 13:45 14:00 14:00 Pulse 79 76 76 Resp 20 18 21 B/P (MAP) 108/63 (78) 108/63 (78) 110/65 (80) 106/62 (77) 113/62 (79) Pulse Ox 94 95 94 FiO2 90 06/24/24 06/24/24 06/24/24 06/24/24 14:30 14:37 15:00 15:25 Pulse 81 79 76 82 Resp 17 34 17 B/P (MAP) 119/66 (83) 123/66 (85) Pulse Ox 96 95 FiO2 90 06/24/24 06/24/24 06/24/24 06/24/24 15:30 16:00 16:00 16:15 Pulse 81 81 Resp 24 23 B/P (MAP) 135/69 (91) 138/70 (92) 123/69 (87) Pulse Ox 94 91 95 O2 Delivery Ventilator+ FiO2 90 85 06/24/24 06/24/24 06/24/24 06/24/24 16:30 17:00 17:15 17:30 Pulse 74 83 94 86 Resp 22 18 18 27 B/P (MAP) 181/90 (120) 185/90 (121) 172/89 (116) 142/79 (100) 152/110 (124) Pulse Ox 92 90 88 89 06/24/24 06/24/24 06/24/24 17:42 18:32 18:33 Temp 98.2 Pulse 80 81 Resp 34 FiO2 90 Intake & Output (last 24hrs) 06/23/24 06/23/24 06/24/24 15:00 23:00 07:00 Intake Total 1334.5 ml 813.0 ml 690.0 ml Output Total 1200 ml 1000 ml Balance 1334.5 ml -387.0 ml -310.0 ml LABS: Laboratory: Test 06/24/24 17:30 06/24/24 07:43 06/24/24 03:53 06/22/24 23:58 Range/Units Whole Blood Glucose 226 H 70-110 MG/DL Blood Gas Specimen Type Arterial Arterial Blood pH 7.438 7.350-7.450 Arterial Blood Partial Pressure CO2 63 *H 32-45 mmHg Arterial Blood Partial Pressure O2 59.8 L 83.0-108.0 mmHg Arterial Blood HCO3 41.5 H 21.0-28.0 mmol/L Arterial Blood Oxygen Saturation 89.9 L 94.0-98.0 % Arterial Blood Base Excess 14.9 H -2.0-3.0 mmol/L Hemoglobin (Blood Gas) 11.1 L 12.0-16.0 g/dL Sodium (Blood Gas) 134 L 136-145 MMOL/L Bedside Potassium (Blood Gas) 4.8 H 3.4-4.5 MMOL/L Bedside Chloride (Blood Gas) 89 *L 98-107 MMOL/L Bedside Glucose (Blood Gas) 150 H 65-95 MG/DL Bedside Ionized Calcium (Blood Gas) 1.15 1.15-1.33 MMOL/L Bedside Lactic Acid (Blood Gas) 1.46 H 0.36-0.75 MMOL/L Blood Gas Temperature 37.0 35.5-37.0 CELSIUS Blood Gas Respiration Rate 34.0 min. Blood Gas Vent Mode AC,PC 23 ROOM AIR FiO2 90.0 % Blood Gas PEEP 8 cm H2O Blood Gas Specimen Comment NEHEMIAS SHAH RN White Blood Count 4.6 #L 4.8-10.8 K/uL Red Blood Count 2.73 L 4.00-5.50 MIL/uL Hemoglobin 9.0 L 12.0-16.0 g/dL Hematocrit 27.2 L 36-48 % Mean Corpuscular Volume 99.6 H 79-99 fL Mean Corpuscular Hemoglobin 33.0 27.0-33.0 pg Mean Corpuscular Hemoglobin Concent 33.1 32.0-36.0 g/dL Red Cell Distribution Width 13.1 11.0-15.5 % Platelet Count 110 L 130-400 K/uL Mean Platelet Volume 10.2 7.5-10.5 fL Immature Granulocyte % (Auto) 0.9 0-1 % Neutrophils (%) (Auto) 94.3 H 40.0-77.0 % Lymphocytes (%) (Auto) 2.6 L 21.0-51.0 % Monocytes (%) (Auto) 2.2 L 3.0-13.0 % Eosinophils (%) (Auto) 0.0 0.0-8.0 % Basophils (%) (Auto) 0.0 0.0-5.0 % Neutrophils # (Auto) 4.3 1.8-7.7 K/uL Lymphocytes # (Auto) 0.1 L 1.0-4.8 K/uL Monocytes # (Auto) 0.1 0.1-1.0 K/uL Eosinophils # (Auto) 0.00 0.00-0.70 K/uL Basophils # (Auto) 0.00 0.00-0.20 K/uL Absolute Immature Granulocyte (auto 0.04 0-1 K/uL Nucleated Red Blood Cells 0.0 0.0-0.19 % Sodium Level 140 136-145 mmol/L Potassium Level 5.2 H 3.5-5.1 mmol/L Chloride Level 98 L 101-111 mmol/L Carbon Dioxide Level 49 *H 21-32 mmol/L Blood Urea Nitrogen 38 H 7-18 mg/dL Creatinine 0.4 L 0.5-1.0 mg/dL Glomerular Filtration Rate Calc 121 >90 mL/min Random Glucose 167 H 70-105 mg/dL Total Calcium 7.8 L 8.5-10.1 mg/dL Total Bilirubin 0.2 0.2-1.0 mg/dL Aspartate Amino Transf (AST/SGOT) 38 H 10-37 U/L Alanine Aminotransferase (ALT/SGPT) 98 #H 12-78 U/L Alkaline Phosphatase 103 50-136 U/L Total Protein 4.3 L 6.0-8.3 g/dL Albumin 1.3 L 3.5-5.0 g/dL Blood Gas Tidal Volume 0 ml ASSESSMENT: Acute hypoxic respiratory failure, s/p intubated on 06/11/2024. Pneumocystis carinii pneumonia. Positive for Cytomegalovirus. Positive HIV test. Infection with methicillin-resistant Staphylococcus aureus. Leukocytosis. Hospital-acquired stage II decubitus pressure ulcers. Obesity. Oral candidiasis. Anemia. PLAN: Continue Ganciclovir IV for 14 days. Continue Bactrim. Continue Meropenem as currently ordered. Continue fluconazole p.o. Continue critical care support. Continue mechanical ventilation support. Continue GI prophylaxis. Continue DVT prophylaxis. ammonia worker consult to reach out to [facility] for possible obtaining HIV medications for patient. This case was reviewed and discussed with my supervising physician and the above assessment and plan was formulated and agreed upon. ATTESTATION BY PHYSICIAN I have seen and examined the patient. I reviewed the documentation, medical decision making, and treatment plan as noted by the mid-level provider above. I agree with the findings and plan of care. [place] MD, MIRTA L CARE TRANSITIONS MANAGER Jun 24, 2024 18:48
--- NOTE | 2024-06-24 20:17 | PN ---
[facility] PROGRESS NOTE Date Patient Seen: Jun 24, 2024 Time of Visit: 20:06 Supervising Physician: EJ MALIK MD Primary Care Physician: Stu Foss MD Outpatient Specialists: Inpatient Consults: Pulmonology PROBLEM LIST: - Acute hypoxic respiratory failure on mechanical ventilator support via ETT - Severe Adult Respiratory Distress Syndrome - Bilateral lower lobe pneumonia with positive MSA and confirmed PCP - Disseminated herpes simplex viral infection - Newly diagnoses HIV with AIDS - Morbid obesity, BMI 31.4 - Severe protein calorie malnutrition - Former tobacco use disorder INTERVAL HISTORY: Patient remains on mechanical ventilatory support via endo tracheal tube She is currently on Rorcuronium, she apparently developed an allergic reaction to NIMBEX, but had been on this medication for a couple of weeks She is critically ill and severely deconditioned Her most recent CD4 count is 4 She is not on anti retroviral medications as her HIV was just diagnosed here in the hospital on this admission I have personally reviewed her chest x-ray showing extensive pulmonary fibrosis bilaterally She is not syncing adequately with the mechanical ventilator Family at bedside REVIEW OF SYSTEMS: Unable to obtain ROS from patient due to patient's medical condition. PHYSICAL EXAM: GENERAL: Sedated and intubated, currently SUPINE HEENT: Sclera non icteric, dry scabs and sores to mucosa, sore to rt cheek NECK: short neck no JVD, trachea midline LUNGS: bilateral crackles, no wheezing HEART: Regular rate and rhythm. Normal S1 and S2, without murmurs ABD: Abdomen soft, nontender. Bowel sounds present EXT: No clubbing cyanosis or edema, sore to sacral area, NEURO: Intubated sedated and paralyzed. Vital Signs (last 8hr) Date Time Temp Pulse Resp B/P (MAP) Pulse Ox O2 Delivery O2 Flow Rate FiO2 06/24/24 18:33 81 90 06/24/24 18:32 80 34 06/24/24 18:30 81 24 137/76 (96) 97 06/24/24 18:15 80 21 112/67 (82) 94 06/24/24 18:00 82 28 127/74 (91) 91 104/78 (87) 06/24/24 17:45 84 23 125/72 (89) 91 06/24/24 17:42 98.2 06/24/24 17:30 86 27 142/79 (100) 89 06/24/24 17:15 94 18 172/89 (116) 88 06/24/24 17:00 83 18 185/90 (121) 90 152/110 (124) 06/24/24 16:30 74 22 181/90 (120) 92 06/24/24 16:15 95 Ventilator+ 85 06/24/24 16:00 90 06/24/24 16:00 81 23 138/70 (92) 91 123/69 (87) 06/24/24 15:30 81 24 135/69 (91) 94 06/24/24 15:25 82 90 06/24/24 15:00 76 17 123/66 (85) 95 06/24/24 14:37 79 34 06/24/24 14:30 81 17 119/66 (83) 96 06/24/24 14:00 90 06/24/24 14:00 76 21 110/65 (80) 94 113/62 (79) 06/24/24 13:45 76 18 108/63 (78) 95 106/62 (77) 06/24/24 13:30 79 20 108/63 (78) 94 06/24/24 13:00 84 18 130/72 (91) 89 125/66 (85) 06/24/24 12:45 86 18 135/73 (93) 90 90 06/24/24 12:30 88 18 156/81 (106) 87 90 06/24/24 12:15 76 17 185/91 (122) 87 90 06/24/24 12:09 98 20 203/99 (133) 86 90 164/110 (128) LABS: Hematology Labs: Test 06/24/24 03:53 Range/Units White Blood Count 4.6 #L 4.8-10.8 K/uL Red Blood Count 2.73 L 4.00-5.50 MIL/uL Hemoglobin 9.0 L 12.0-16.0 g/dL Hematocrit 27.2 L 36-48 % Mean Corpuscular Volume 99.6 H 79-99 fL Mean Corpuscular Hemoglobin 33.0 27.0-33.0 pg Mean Corpuscular Hemoglobin Concent 33.1 32.0-36.0 g/dL Red Cell Distribution Width 13.1 11.0-15.5 % Platelet Count 110 L 130-400 K/uL Mean Platelet Volume 10.2 7.5-10.5 fL Immature Granulocyte % (Auto) 0.9 0-1 % Neutrophils (%) (Auto) 94.3 H 40.0-77.0 % Lymphocytes (%) (Auto) 2.6 L 21.0-51.0 % Monocytes (%) (Auto) 2.2 L 3.0-13.0 % Eosinophils (%) (Auto) 0.0 0.0-8.0 % Basophils (%) (Auto) 0.0 0.0-5.0 % Neutrophils # (Auto) 4.3 1.8-7.7 K/uL Lymphocytes # (Auto) 0.1 L 1.0-4.8 K/uL Monocytes # (Auto) 0.1 0.1-1.0 K/uL Eosinophils # (Auto) 0.00 0.00-0.70 K/uL Basophils # (Auto) 0.00 0.00-0.20 K/uL Absolute Immature Granulocyte (auto 0.04 0-1 K/uL Nucleated Red Blood Cells 0.0 0.0-0.19 % Chemistry Labs: Test 06/24/24 17:30 06/24/24 03:53 Range/Units Whole Blood Glucose 226 H 70-110 MG/DL Sodium Level 140 136-145 mmol/L Potassium Level 5.2 H 3.5-5.1 mmol/L Chloride Level 98 L 101-111 mmol/L Carbon Dioxide Level 49 *H 21-32 mmol/L Blood Urea Nitrogen 38 H 7-18 mg/dL Creatinine 0.4 L 0.5-1.0 mg/dL Glomerular Filtration Rate Calc 121 >90 mL/min Random Glucose 167 H 70-105 mg/dL Total Calcium 7.8 L 8.5-10.1 mg/dL Total Bilirubin 0.2 0.2-1.0 mg/dL Aspartate Amino Transf (AST/SGOT) 38 H 10-37 U/L Alanine Aminotransferase (ALT/SGPT) 98 #H 12-78 U/L Alkaline Phosphatase 103 50-136 U/L Total Protein 4.3 L 6.0-8.3 g/dL Albumin 1.3 L 3.5-5.0 g/dL DIAGNOSTICS / RADIOLOGY RESULTS: Extensive bilateral pulmonary fibrosis and infiltrates through out both lung pederson PLAN her prognosis is grim and her survival rate is less than 10% she is very unstable, critically ill and remains fully dependent on ventilator support with 100% FiO2 In her current clinical condition, she would not tolerate tracheostomy or PEG tu be she desaturates just by repositioning her and becomes tachycardic and tachypneic I talked at length with the family which included her sister and 2 children I addressed DNR and comfort measures and explained the severity of her illness and her physical decline I advised against CPR and instructed family to consider DNR. I explained that DNR does not mean that we will stop providing medical care but rather, in the event of cardiac arrest, we would not perform heroic life saving measures that would only cause more harm and ultimately will be futile. NEURO: Minimize central acting medications as possible. Maintain fall precautions, adequate lighting during the day PULMONARY: Supplemental 02 as needed. Maintain aspiration precautions at all times. Because of the concern of PCP pneumonia and HIV test was ordered and is pending confirmation. I am going to request a CD4 count in the meantime. Respiratory culture resulted positive for MRSA and Betty albicans. I am going to consult Infectious Disease specialist to guide antibiotic therapy. CARDIOVASCULAR: Follow hemodynamics. Vital signs per facility protocol. GI & NUTRITION: Continue with nutritional support. Continue stool softeners and laxatives as needed. KIDNEYS & ELECTROLYTES: Strict monitoring of intake, output and overall fluid balance. Avoid nephrotoxic medications to the extent possible. Medications to be dosed according to renal function. Monitor electrolytes and replace as needed ENDOCRINE: Maintain blood glucose between 100-180 at all times. Hypoglycemia protocol in place INFECTIOUS DISEASE: Trend temperature, WBC and procalcitonin level Follow cultures, deescalate antibiotics as soon as possible. Panculture if new onset fever Current antibiotic course Cefepime, doxycycline, Fluconazole, we will add Bactrim. We will follow the indication of the Infectious Disease specialist. ONCOLOGY/HEMATOLOGY/COAGULATION: Monitor for s/s of bleeding Monitor hemoglobin, coagulation studies as needed SKIN: Pressure ulcer prevention per facility protocol Specialty mattress ORTHO/REHAB: Continue PT/OT Prophylaxis: Continue GI and DVT prophylaxis Code Status: Full Resuscitation Disposition: TBD Other: Critical care time I personally spent 45 minutes of critical care time in treatment of this patient. This includes patient management, time at bedside, time reviewing tests, labs, appropriate images and studies, documentation, and patient care coordination. Critical care progress note was scribed by Thiago Vicenteanes remote medical coder and I can attest to the accuracy of the note. I personally scribed for SHALINI MALIK MD ([email or web address]) on 06/24/24 at 20:17. Electronically submitted by Thiago Holcomb ([email or web address]). SHALINI MALIK MD Jun 24, 2024 20:17
[2024-06-24] MEDS: PHARMACY COMMUNICATION MISC ONE (21:16)
[2024-06-24] MEDS: VECURONIUM 10MG/10ML IV ONE ×2 (21:16)
[2024-06-25] VITALS (43 sets, daily range): BP systolic 84–188; BP diastolic 50–101; PULSE 59–122; RESP 4–35; TEMP 95–97.8; O2SAT 88–97
[2024-06-25 04:25] LABS: HEMATOCRIT 26.5 % (36-48); IMMATURE GRANULOCYTE ABSOLUTE 0.03 K/uL (0-1); LYMPHOCYTES # (AUTO) 0.1 K/uL (1.0-4.8); MEAN CORPUSCULAR HEMOGLOBIN 32.9 pg (27.0-33.0); MEAN CORPUSCULAR HGB CONC 32.1 g/dL (32.0-36.0); MEAN CORPUSCULAR VOLUME 102.7 fL (79-99); MONOCYTES # (AUTO) 0.1 K/uL (0.1-1.0); MONOCYTES % (AUTO) 2.7 % (3.0-13.0); NEUTROPHILS # (AUTO) 3.1 K/uL (1.8-7.7); NEUTROPHILS % (AUTO) 93.4 % (40.0-77.0); PLATELET COUNT (AUTO) 93 K/uL (130-400); RED BLOOD CELL COUNT(AUTO) 2.58 MIL/uL (4.00-5.50); RED CELL DISTRIBUTION WIDTH 13.4 % (11.0-15.5); WHITE BLOOD COUNT (AUTO) 3.3 K/uL (4.8-10.8)
[2024-06-25 05:01] LABS: WBC MORPHOLOGY CONSISTENT W/DIFF
[2024-06-25 05:04] LABS: ALBUMIN 1.4 g/dL (3.5-5.0); BILIRUBIN,TOTAL 0.2 mg/dL (0.2-1.0); CREATININE 0.3 mg/dL (0.5-1.0); POTASSIUM 4.9 mmol/L (3.5-5.1); TOTAL PROTEIN, SERUM 4.2 g/dL (6.0-8.3)
[2024-06-25] MEDS: ROCURONIUM BROMIDE IV SCH (05:07)
[2024-06-25] MEDS: [UNRECOGNIZED DRUG - OTHER] IV SCH (05:07)
--- NOTE | 2024-06-25 06:39 | NUR ---
CO2 CO2 45 REPORTED TO VANDANA RN
--- NOTE | 2024-06-25 07:17 | PN ---
[facility] PROGRESS NOTE Date of Service: Jun 25, 2024 Time of Service: 07:15 SUBJECTIVE: [ ] Ms. Abdullahi is a 49-year-old female that was seen and examined today on 05/23/2024. Patient is a good historian and personal health. Patient's son Dagoberto Salcido is at bedside. Patient states that she came to the emergency department with a chief complaint of shortness of breath. Onset was two weeks ago. Location is to lungs. Duration is on and off. Character is described as "easily running out of air." Initially shortness and breath was only aggravated with climbing one or two flights of stairs but symptoms have progressively worsened and patient becomes short of breath even standing or walking short distances. There was no alleviating factors however previously symptoms were being controlled with daily morning albuterol nebulizer treatments. Patient denies any associated chest pain or dizziness. Patient reports an episode of COVID in December 2023. emergency department CBC unremarkable, chemistry unremarkable, urinalysis unremarkable, influenza screen negative, COVID negative, blood gas shows PO2 less than 45. Chest x-ray shows left lower lung pneumonia and minimal right lung base atelectasis. Upon arrival to the emergency department patient was placed on a BiPAP due to respiratory distress. 05/24/2024-patient was seen and examined at the bedside, still on BiPAP. Patient is able to speak, and says she feels much better than before. Patient says after COVID in December she developed severe bronchitis and she was on Solu-Medrol and albuterol, which did not help her much and later she had high fevers and shortness of breath which is when she came to the ED.Vitals afebrile pulse 76, RR 38 tachypneic , blood pressure 115/68, pulse oxygen 99 on BiPAP flow of 60. On ABG pH 7.47, pCO2 29, PO2 109.4, oxygen saturation 98.3. [id number] potassium 4.1 BUN15 creatinine 0.5 GFR 114. We will closely monitor the patient. Logistics Management Specialist consult noted waiting on the recommendation 05/25/24 patient was seen and examined and case discussed with RN and family by the bedside. She was breathing better today. She has been on BiPAP all night but now he was on 100% non-rebreather with further efforts to continue to wean the oxygen requirements down. 05/26/24 patient was seen and examined and case discussed with the RN. No acute events noted overnight. Appreciate pulmonology and ID input continue IV antibiotics and fluconazole. 05/27/24 patient is seen and examined at bedside, acute events overnight, case discussed with the RN, BP 131/64, afebrile, saturating 96-97% via Ventimask, FiO2 40%. The patient admits cough productive of clear phlegm. Serology tests reviewed, HIV preliminary positive, discussed with the patient. 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 We will continue the patient on IV antibiotics, continue fluconazole, continue to follow Pulmonary and ID input and recommendations. After provided in the preliminary results of HIV test, she denies any suicidal or homicidal ideations. 05/28 patient has been seen and examined, no acute events overnight, case discuss ed with the RN, during my visit patient is sitting comfortably in the chair, hemodynamically stable, off Ventimask, currently on 10 L via nasal cannula, saturating 98%, tolerated BiPAP overnight. she feels better, less shortness a breath, still admits cough productive of yellow phlegm. No chest pain. Getting IV antibiotics during my visit. HIV P24 antigen, nonreactive. We will continue to follow Pulmonary and Infectious Disease input and recommendations. 05/29 patient has been seen and examined, no acute events overnight, case discussed with the RN, during my visit patient is sitting comfortably in the chair, hemodynamically stable, remains on 10 L via nasal cannula, saturating 98%, still admits cough productive of yellow phlegm. No chest pain. Getting IV antibiotics during my visit. HIV P24 antigen, nonreactive. Pending CD4 cell count. We will continue to follow Pulmonary and Infectious Disease input and recommendations. 05/30 the patient has been seen and examined, no acute events overnight, BP 11 4/66, during my visit she is on Ventimask, saturating 95%, FiO2 60%. Without the Ventimask the patient desaturates to the low 70s. Patient tolerating BiPAP during the night. Still admits cough productive of thick yellow phlegm, no chest pain. Results of CD4 cell count reviewed, discussed with the patient. We will continue broad-spectrum IV antibiotics. Continue to follow Pulmonary and Infectious Disease input and recommendations. 05/31 the patient has been seen and examined, upgraded to the ICU, during my visit she is sitting in the chair, BP 113/72, heart rate of 109, she is on Oxymizer, 30 L, FiO2 100%. She is alert oriented x3, still admits cough productive of thick yellow phlegm, no chest pain. Hemoglobin 12.9, hematocrit 36.6, WBC 14.6. ABG with pH 7.4, pCO2 40, PO2. Chest x-ray shows left lower lobe infiltrate consistent with pneumonia. She is getting IV antibiotics during my visit. Patient will remain in the ICU, continue to follow critical Care as well as infectious disease input and recommendations. 06/01 patient is seen and examined, sitting comfortable in chair, awake, following commands, remains on high-flow oxygen, FiO2 70%, 30 L, BP 117/67, heart rate of 78, respiratory rate of 30-36, saturating 100%, CBC with a hemoglobin 13.6, hematocrit 38.9, WBC 12.4. Platelet count of 341. Chest x-ray showing persistent left lung infiltrate, cardiac size and mediastinum unremarkable. The bony structures are within the normal limits. Patient getting IV antibiotics during my visit. Patient to continue with the high-dose steroids. Serology test positive for Pneumocystis sandra. Patient on Bactrim two tablets p.o. t.i.d.. Continue also doxycycline and cefepime IV. Continue to follow infectious disease input and recommendation. Continue to follow Pulmonary input and recommendations. 06/02 patient is seen and examined at bedside, currently in prone position, alert oriented x3. CPT started last night, she has started having more loose phlegm expectorated. BP 114/74, tachycardic 114, saturating 95%, high-flow nasal cannula, 30 L, FiO2 80%. CBC with a hemoglobin 16.9, hemoglobin 14 0, hematocrit 39.8, platelet count 347. Chest x-ray shows persistent left lung infiltrate. 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 Serology test for toxoplasma currently pending. Patient on IV antibiotics as well as high-dose steroids. Continue to follow infectious Disease and Pulmonary input and recommendations. 06/03 patient seen at bedside, no acute events overnight. She continues with respiratory distress, with increasing oxygen requirements. Critical Care has discussed a possible need for intubation if she does not improve. She has been started on steroids due to underlying PCP pneumonia. WBC improved from 16.9 down to 13.5, sodium stable at 132, same as yesterday, lactic acid downtrending from 4.1 down to 3.2, remainder of her labs are relatively unremarkable. 06/04 patient seen at bedside, no acute events overnight. She remains on high- flow nasal cannula, mildly tachycardic. WBC elevated at 13.3, sodium decreased from 132 down to 129, remainder of her labs are relatively unremarkable. Continue to wean supplemental oxygen. Further care per critical Care 06/05 patient seen at bedside, no acute events overnight. She remains on high- flow nasal cannula with BiPAP overnight and is still tachycardic. Heart rate ranging from 104 up to 113, WBC improved from 13.3 down to 11.1, sodium decreased from 120 down to 126, remainder of her labs are relatively unremarkable. We will continue to wean oxygen as able. 06/06 Patient seen at bedside, no acute events overnight. She remains on high- flow nasal cannula with BiPAP overnight and is still tachycardic. Heart rate ranging from 104 up to 122, WBC improved from 11.1 down to 10.6, sodium improved from 126 up to 129, remainder of her labs are relatively unremarkable. We will continue to wean oxygen as able. 06/07 patient seen at bedside, no acute events overnight. She is still on high- flow nasal cannula, RT advised to wean oxygen, currently saturating 100% on 30L. She is tachycardic, sodium decreased from 129 down to 123, likely secondary to Bactrim. Patient is asymptomatic, will continue with bactrim, if sodium cont inues to decrease consider a holiday from bactrim. 06/08 patient seen at bedside, no acute events overnight. She is still on high- flow nasal cannula, RT advised to wean oxygen, currently saturating 100% on 30L. She is tachycardic, sodium stable at 123, same as yesterday. Pending improvement in respiratory status 06/09 patient seen at bedside, he remains on high-flow nasal cannula, we will continue to wean as able, appreciate pulmonology assistance, tachycardic with heart rate ranging from 123 up to 130. She is still having low-grade fevers at 100.8. Sodium increased from 123 up to 130, remainder of her labs are relatively unremarkable. 06/10 patient is seen and examined at bedside, remains on high-flow oxygen, she feels mildly anxious, no chest pain. Still with a cough productive of white phlegm. Still tachycardic, heart rate 117-122. Patient is still spiking low- grade fever. Hemoglobin 10.9, hematocrit 30.5. Sodium remained low at 128, BUN and creatinine of 16 and 0.4. 06/11 patient is seen and examined at bedside, patient now on AVAPS, FiO2 100%, patient became restless last night, she had to be started on Precedex. During my visit she remains alert oriented x3, no chest pain. BP 120/48, she is saturating 100%. Hemoglobin 10 point, hematocrit 31.3. ABG shows persistent hypoxemia, with a PO2 of 69.4. Chest x-ray shows extensive infiltrates on the left which is stable to somewhat increased, there has been interval development of perihilar infiltrate on the right. Normal bilateral lower extremity venous Doppler ultrasound. Continue the patient on prednisone 20 mg p.o. daily, continue Bactrim two tablets p.o. t.i.d. as well as fluconazole 100 mg p.o. daily. 06/12 patient is seen and examined at bedside, intubated, on mechanical ventilation, per discussion with the RN, patient was in respiratory distress yesterday, decision made to intubate the patient. During my visit the patient is midazolam, fentanyl, patient paralyzed, also on Nimbex. She is in a prone position. On pressor support with phenylephrine. Also on Precedex. She is also on hydrocortisone 100 mg IV q.8 hours. Son at bedside, updated. ABG shows pH 7.38, pCO2 47, PO2 122, bicarb of 27.7. 06/13 patient is seen and examined at bedside, remains intubated, on mechanical ventilation, remains on midazolam, fentanyl, patient paralyzed, also on Nimbex. She is in a prone position. On BP pressor support with phenylephrine. Patient is peep of seven. ABG pH 7.34, PO2 72.3. Chest x-ray reviewed, increasing bilateral infiltrates, increasing pneumomediastinum. 06/14 patient is seen and examined at bedside, remains intubated, on mechanical ventilation, prone position, remains on midazolam, fentanyl, patient paralyzed, also on Nimbex. She is in a prone position. Off pressors. Patient is peep of seven. ABG pH 7.34, PO2 72.3. Chest x-ray shows extensive bilateral infiltrates unchanged, no pneumothorax. 06/15 patient is seen and examined at bedside, remains intubated, on mechanical ventilation, prone position, remains paralyzed, on Nimbex. Off pressors. Patient is peep of 10. ABG pH 7.34, PO2 72.3. Chest x-ray shows extensive bilateral infiltrates unchanged, no pneumothorax. Overall condition remains unchanged. No family at bedside. 06/16 patient is seen and examined at bedside, remains intubated, on mechanical ventilation, discussed with the RN, the patient has been placed on supine position. Patient remains on pressor support. Remains on sedation with midazolam and fentanyl BP 114/60, afebrile saturating 96% FiO2 100%, peep of 8. ABG today with pCO2 63, PO2 91.5. Chest x-ray with severe consultation both lungs, unchanged, interval development of pneumomediastinum, moderate to severe. Continue Solu-Medrol 80 mg IV q.8 hours, continue broad-spectrum antibiotics with meropenem 1 g IV q.8 hours, the patient remains on Bactrim. Continue ganciclovir. 06/17 patient seen at bedside, no acute events overnight. She remains intubated, paralyzed on FiO2 of 100% and PEEP of eight. Continue to try to wean towards extubation. Chest x-ray appears mildly improved from yesterday. She remains supine. Hemoglobin improved from 8.4 up to 8.6, platelets decreased from 121 d own to 112, CO2 elevated at 41, same as yesterday, remainder of her labs are relatively unremarkable. Patient is still critical with poor prognosis continue further care per critical care team. 06/18 patient seen at bedside, no acute events overnight. She remains intubated and sedated, critical care weaning patient off paralyzing agents. She is still on FiO2 of 100% with PEEP of eight, PO2 on ABG 70.8 down from 80.5 yesterday demonstrating a worsening and her oxygenation within her blood at the same venti lator settings. PCO2 increased from 70 up to 75. Hemoglobin improved from 8.6 up to 9.0, platelets improved from 112 up to 127, CO2 increased from 41 up to 45, remainder of her labs are relatively unremarkable. 06/19 patient seen at bedside, no acute events overnight. She remains intubated and sedated, critical Care to continue trying to wean to extubation. Continue current care further recommendations per critical Care 2 patient is seen and examined at bedside, no acute events overnight, she remains intubated, on mechanical ventilation, off vasopressors, sedated with fentanyl and Versed, the patient on peep of 8, saturating 97%. 06/21 patient seen at bedside, no acute events overnight. She remains intubated, paralyzed on FiO2 of 100% and PEEP of eight. Continue to try to wean towards extubation. She remains supine. Chest x-ray stable. Hemoglobin at 8.6, hematocrit 28.4. remainder of her labs are relatively unremarkable. Patient is still critical with poor prognosis continue further care per critical care team. 06/22 patient seen at bedside, no acute events overnight. She remains intubated, paralyzed on FiO2 of 100% and PEEP of eight. Continue to try to wean towards extubation. She remains supine. Chest x-ray stable. Patient is still criti vito with poor prognosis continue further care per critical care team. 06/23 patient seen at bedside, no acute events overnight. She remains intubated, on FiO2 of 90% and PEEP of eight, ABG showing improved oxygenation will wean down to 80%. Continue to try to wean towards extubation. She remains supine. Chest x-ray improved from previous. Patient is still critical with poor p rognosis continue further care per critical care team. 06/24 patient seen at bedside, she had several desaturation episodes overnight however she is currently saturating well, ABG looks good. We will wean her FiO2 to 80% and continue to monitor. Continue to try and wean towards extubation. Hemoglobin decreased from 10.4 down to 9.0, platelets decreased from 125 down to 110, potassium decreased from 5.4 down to 5.2, CO2 increased from 43 up to 49, remainder of her labs are relatively unremarkable. 06/25 patient seen at bedside, she had several desaturation episodes overnight however she is currently saturating well, ABG pending this am. Continue to try and wean FiO2 and wean towards extubation. Hemoglobin decreased from 9.0 down to 8.5, platelets decreased from 110 down to 93, potassium decreased from 5.2 down to 4.9, CO2 improved from 49 down to 45, remainder of her labs are rel atively unremarkable. REVIEW OF SYSTEMS 12 point review of systems negative unless noted in HPI PHYSICAL EXAM GENERAL APPEARANCE: Patient intubated, on mechanical ventilation. NEUROLOGICAL: Cranial nerves II-XII grossly intact. Motor is 5/5 in bilateral upper and lower extremities proximal to distal. No sensory deficits. HEENT: Face is symmetric. Pupils are equal and reactive. Extraocular movements are intact. NECK: Supple. No JVD. No thyromegaly. No submental, submandibular, pre- /postauricular, occipital or supraclavicular lymphadenopathy. CHEST: Normal chest expansion. No Telemetry. LUNGS: Bilateral rhonchi, no expiratory wheezing CARDIOVASCULAR: Regular. S1 and S2 normal. No appreciable rubs, murmurs or gallops. ABDOMEN: Soft, nontender, and nondistended. There is no rebound, voluntary guarding, or rigidity. : Deferred. No Souza. EXTREMITIES: Non-edematous and not cyanotic. No clubbing. Good capillary refill. SKIN: No skin breakdown. Vital Signs (last 8hr) Date Time Temp Pulse Resp B/P (MAP) Pulse Ox O2 Delivery O2 Flow Rate FiO2 06/25/24 06:49 60 90 06/25/24 06:00 60 35 102/61 (75) 87 91/53 (66) 06/25/24 05:30 62 35 108/64 (79) 89 06/25/24 05:00 83 35 132/77 (95) 96 06/25/24 04:30 73 19 119/68 (85) 93 06/25/24 04:00 97.0 06/25/24 04:00 88 Ventilator+ 85 06/25/24 04:00 97.0 59 17 97/58 (71) 93 06/25/24 03:30 59 14 100/60 (73) 93 84/50 (61) 06/25/24 03:00 76 9 118/66 (83) 94 06/25/24 02:30 64 20 134/72 (92) 92 06/25/24 02:07 72 34 06/25/24 02:07 72 85 06/25/24 02:00 71 105/59 (74) 94 97/59 (72) 06/25/24 01:30 71 106/61 (76) 93 06/25/24 01:00 71 4 112/63 (79) 92 06/25/24 00:30 69 5 102/58 (73) 95 06/25/24 00:00 97.2 06/25/24 00:00 97.2 81 35 188/95 (126) 91 185/101 (129) 06/25/24 00:00 85 06/25/24 00:00 95 Ventilator+ 85 06/24/24 23:44 87 85 06/24/24 23:30 89 35 145/78 (100) 98 LABS: Laboratory: Test 06/25/24 04:00 06/24/24 23:58 06/24/24 07:43 Range/Units White Blood Count 3.3 L 4.8-10.8 K/uL Red Blood Count 2.58 L 4.00-5.50 MIL/uL Hemoglobin 8.5 L 12.0-16.0 g/dL Hematocrit 26.5 L 36-48 % Mean Corpuscular Volume 102.7 H 79-99 fL Mean Corpuscular Hemoglobin 32.9 27.0-33.0 pg Mean Corpuscular Hemoglobin Concent 32.1 32.0-36.0 g/dL Red Cell Distribution Width 13.4 11.0-15.5 % Platelet Count 93 L 130-400 K/uL Mean Platelet Volume 10.0 7.5-10.5 fL Immature Granulocyte % (Auto) 0.9 0-1 % Neutrophils (%) (Auto) 93.4 H 40.0-77.0 % Lymphocytes (%) (Auto) 3.0 L 21.0-51.0 % Monocytes (%) (Auto) 2.7 L 3.0-13.0 % Eosinophils (%) (Auto) 0.0 0.0-8.0 % Basophils (%) (Auto) 0.0 0.0-5.0 % Neutrophils # (Auto) 3.1 1.8-7.7 K/uL Lymphocytes # (Auto) 0.1 L 1.0-4.8 K/uL Monocytes # (Auto) 0.1 0.1-1.0 K/uL Eosinophils # (Auto) 0.00 0.00-0.70 K/uL Basophils # (Auto) 0.00 0.00-0.20 K/uL Absolute Immature Granulocyte (auto 0.03 0-1 K/uL Nucleated Red Blood Cells 0.0 0.0-0.19 % White Cell Morphology Comment CONSISTENT W/DIFF Platelet Morphology See comments Sodium Level 145 136-145 mmol/L Potassium Level 4.9 3.5-5.1 mmol/L Chloride Level 102 101-111 mmol/L Carbon Dioxide Level 45 *H 21-32 mmol/L Blood Urea Nitrogen 38 H 7-18 mg/dL Creatinine 0.3 L 0.5-1.0 mg/dL Glomerular Filtration Rate Calc 129 >90 mL/min Random Glucose 174 H 70-105 mg/dL Total Calcium 7.7 L 8.5-10.1 mg/dL Total Bilirubin 0.2 0.2-1.0 mg/dL Aspartate Amino Transf (AST/SGOT) 46 H 10-37 U/L Alanine Aminotransferase (ALT/SGPT) 101 H 12-78 U/L Alkaline Phosphatase 113 50-136 U/L Total Protein 4.2 L 6.0-8.3 g/dL Albumin 1.4 L 3.5-5.0 g/dL Whole Blood Glucose 202 H 70-110 MG/DL Blood Gas Specimen Type Arterial Arterial Blood pH 7.438 7.350-7.450 Arterial Blood Partial Pressure CO2 63 *H 32-45 mmHg Arterial Blood Partial Pressure O2 59.8 L 83.0-108.0 mmHg Arterial Blood HCO3 41.5 H 21.0-28.0 mmol/L Arterial Blood Oxygen Saturation 89.9 L 94.0-98.0 % Arterial Blood Base Excess 14.9 H -2.0-3.0 mmol/L Hemoglobin (Blood Gas) 11.1 L 12.0-16.0 g/dL Sodium (Blood Gas) 134 L 136-145 MMOL/L Bedside Potassium (Blood Gas) 4.8 H 3.4-4.5 MMOL/L Bedside Chloride (Blood Gas) 89 *L 98-107 MMOL/L Bedside Glucose (Blood Gas) 150 H 65-95 MG/DL Bedside Ionized Calcium (Blood Gas) 1.15 1.15-1.33 MMOL/L Bedside Lactic Acid (Blood Gas) 1.46 H 0.36-0.75 MMOL/L Blood Gas Temperature 37.0 35.5-37.0 CELSIUS Blood Gas Respiration Rate 34.0 min. Blood Gas Vent Mode AC,PC 23 ROOM AIR FiO2 90.0 % Blood Gas PEEP 8 cm H2O Blood Gas Specimen Comment NEHEMIAS SHAH,RN Current Medications Medications (Trade) Dose Ordered Sig/Julita Route PRN Reason Start Time Stop Time Status Last Admin Dose Admin Acetaminophen (TYLenol 650MG ELIXIR) 650 mg Q6H PRN PO MILD PAIN (1-3) 06/04/24 08:30 07/04/24 08:29 06/10/24 20:07 650 MG Acetaminophen (TYLenol 650MG SUPPOSITORY) 650 mg Q6H PRN RC MILD PAIN (1-3) 05/23/24 20:30 06/22/24 20:29 DC Acetylcysteine (MUComyst 20% 4ML) 400mg = 2ml [id number] IH 06/02/24 00:00 06/05/24 15:52 DC 06/05/24 11:35 200 MG Albuterol (DUOneb) 1 udvial [id number] IH 05/24/24 00:00 06/10/24 10:28 DC 06/10/24 06:45 1 UDVIAL Alprazolam (XANax 0.5MG) 0.5 mg Q8H PRN PO ANXIETY 06/10/24 13:30 07/10/24 13:29 06/25/24 06:30 0.5 MG Artificial Tears (Artificial Tears) 1 DROP OR AD Q8H OU 06/11/24 14:30 07/11/24 14:29 06/25/24 06:31 1 DROP Azithromycin 250 ml @ 250 mls/hr Q24H IVPB 05/24/24 17:00 05/24/24 14:41 DC Azithromycin 250 ml @ 250 mls/hr Q24H STAT IVPB 05/23/24 17:17 05/24/24 14:41 DC 05/23/24 17:45 250 MLS/HR Benzocaine (Cepacol Sore Throat Lozenge) 1 each Q4H PRN MM SORE THROAT 06/08/24 10:00 07/08/24 09:59 06/09/24 07:44 1 EACH Bisacodyl (DulcoLAX) 10 mg DAILY PRN RC CONSTIPATION 06/08/24 14:00 07/08/24 13:59 06/23/24 10:00 10 MG Cadexomer Iodine (Iodosorb Gel 40gm) 1 APPL TO RIGHT FAC... DAILY TP 06/19/24 09:00 07/18/24 08:59 06/24/24 10:51 1 APPL Cadexomer Iodine (Iodosorb Gel 40gm) 1 appl DAILY TP 06/18/24 09:00 06/19/24 07:23 DC 06/18/24 14:09 1 APPL Cefepime HCl (MAXipime 2 gm vial) 2 gm Q12H IVPB 05/24/24 15:00 06/03/24 14:59 DC 06/03/24 03:18 2 GM Ceftriaxone Sodium (ROCEphine 1G INJ) 1 gm Q24H IVPB 05/24/24 17:30 05/24/24 14:41 DC Chlorhexidine Gluconate (Peridex) 15 ml Q6H MM 06/07/24 17:00 06/11/24 14:27 DC 06/10/24 12:22 15 ML Chlorhexidine Gluconate (Peridex) 15 ml Q8H MM 06/11/24 14:30 06/25/24 14:29 06/25/24 06:31 15 ML Cisatracurium Besylate (Nimbex) ONCE IVP 06/11/24 14:30 06/11/24 15:57 DC Cisatracurium Besylate 100 mg/ Sodium Chloride 100 ml @ 0 mls/hr PROTOCOL IV 06/11/24 23:30 06/23/24 16:20 DC 06/17/24 09:27 14.94 MLS/HR Cisatracurium Besylate 100 mg/ Sodium Chloride 100 ml @ 0 mls/hr PROTOCOL IV 06/23/24 16:30 06/23/24 18:43 DC 06/23/24 16:46 2.6 MLS/HR Clotrimazole (Mycelex) 10 mg TID MM 06/04/24 21:00 06/14/24 08:39 DC 06/13/24 20:28 10 MG Dexmedetomidine/ Sodium Chloride (PRECEdex 400MCG/ 100ML-NS) 400 mcg PROTOCOL IV 06/10/24 19:30 07/10/24 19:29 06/25/24 05:08 400 MCG Diphenhydramine HCl (BENAdryl INJ) 25 mg Q6H PRN IV ITCHING 06/23/24 19:00 07/23/24 18:59 06/23/24 18:54 25 MG Dobutamine HCl/ Dextrose 250 ml @ 0 mls/hr PROTOCOL IV 06/12/24 16:30 06/12/24 16:53 DC Doxycycline Hyclate 250 ml @ 125 mls/hr Q12H IV 05/24/24 16:30 06/03/24 16:29 DC 06/03/24 04:23 125 MLS/HR Enoxaparin Sodium (Lovenox 80mg) 40 mg DAILY SQ 06/15/24 09:00 06/15/24 09:30 DC Enoxaparin Sodium (Lovenox 80mg) 80 mg BID SQ 06/11/24 09:00 06/14/24 23:28 DC 06/14/24 20:33 80 MG Enoxaparin Sodium (Lovenox) 40 mg DAILY SQ 06/15/24 09:30 07/15/24 09:29 06/24/24 08:57 40 MG Enoxaparin Sodium (Lovenox) 40 mg Q24H SQ 05/23/24 21:00 06/11/24 04:36 DC 06/10/24 20:07 40 MG Famotidine (Pepcid 20mg Vial) 20 mg DAILY IV 05/24/24 09:00 06/14/24 08:39 DC 06/13/24 08:15 20 MG Fentanyl Citrate 2500 mcg/Sodium Chloride 250 ml @ 0 mls/hr AD PRN IV TITRATE 06/17/24 05:30 06/17/24 05:18 DC Fentanyl/Sodium Chloride 250 ml @ 0.1 mls/hr PROTOCOL IV 06/12/24 00:00 06/17/24 00:00 DC 06/16/24 17:36 0.1 MLS/HR Fentanyl/Sodium Chloride 250 ml @ 0 mls/hr AD PRN IV ICU SEDATION 06/17/24 05:30 06/22/24 05:29 DC 06/21/24 19:51 30 MLS/HR Fentanyl/Sodium Chloride 250 ml @ 0 mls/hr PROTOCOL IV 06/22/24 15:00 06/27/24 14:59 06/25/24 06:39 0 MLS/HR Fluconazole (DiFLUCan 100 mg TAB) 200 mg DAILY PO 06/05/24 09:00 07/05/24 08:59 06/24/24 08:57 200 MG Fluconazole/ Sodium Chloride 100 ml @ 100 mls/hr DAILY IV 05/26/24 09:00 05/27/24 15:57 DC 05/27/24 09:07 100 MLS/HR Furosemide (LASix 20MG VIAL) 20 mg DAILY IV 05/31/24 09:00 06/07/24 13:18 DC 06/03/24 08:38 20 MG Furosemide (LASix 20MG VIAL) 20 mg DAILY IV 06/17/24 10:00 06/17/24 12:13 DC 06/17/24 09:46 20 MG Furosemide (LASix 20MG VIAL) 20 mg Q12H IV 06/11/24 11:00 06/13/24 09:31 DC 06/12/24 21:54 20 MG Furosemide (LASix 20MG VIAL) 20 mg Q12H IV 06/17/24 22:00 06/18/24 10:01 DC 06/18/24 09:44 20 MG Furosemide (LASix 20MG VIAL) 20 mg Q8H IV 06/13/24 09:30 06/16/24 11:00 DC 06/16/24 08:44 20 MG Furosemide (LASix 20MG VIAL) 20 mg Q8H IV 06/19/24 17:00 07/19/24 16:59 06/25/24 01:00 20 MG Ganciclovir Sodium 430 mg/ Sodium Chloride 100 ml @ 100 mls/hr Q12H IV 06/13/24 09:00 07/13/24 08:59 06/24/24 21:16 100 MLS/HR Ganciclovir Sodium 500 mg/ Sodium Chloride 100 ml @ 100 mls/hr Q12H IV 06/11/24 18:00 06/11/24 15:48 DC Ganciclovir Sodium (Ganciclovir Sodium) 500 mg Q12H IV 06/12/24 17:00 06/13/24 08:35 DC Guaifenesin/ Dextromethorphan (RobiTUSSin DM 200/20MG 10ML) 10 ml Q4H PRN PO COUGH 05/23/24 20:30 06/22/24 20:29 DC 06/10/24 20:07 10 ML Home Med (Home Medication) BIKTARVY (1 TAB) Q24H PO 06/24/24 17:00 07/24/24 16:59 06/24/24 17:20 1 EACH Hydrocortisone Sodium Succinate (Solu-corTEF 100MG) 100 mg Q8H IV 06/11/24 05:00 06/14/24 08:39 DC 06/14/24 06:13 100 MG Hydroxyzine HCl (ATArax 25MG TAB) 25 mg TID PRN PO ITCHING 06/10/24 14:00 07/10/24 13:59 06/25/24 06:30 25 MG Insulin Human Regular (humuLIN R 100 UNIT/ML 3ML) INSULIN SLIDING SCAL... ACHS SQ 06/19/24 16:30 06/20/24 15:07 DC 06/20/24 12:30 5 UNIT Insulin Human Regular (humuLIN R 100 UNIT/ML 3ML) INSULIN SLIDING SCAL... Q6H6 SQ 06/20/24 18:00 07/19/24 16:29 06/25/24 01:03 3 UNIT Ipratropium Ovid (AtrovENT UD) 0.5 MG [id number] IH 06/10/24 14:00 07/10/24 13:59 06/25/24 06:46 0.5 MG Lactated Ringer's (Lactated Ringers 1000ml) 500 ml ONCE IV 06/02/24 20:00 06/02/24 19:54 DC Levofloxacin/ Dextrose 100 ml @ 100 mls/hr Q24H IV 05/24/24 15:00 05/24/24 16:16 DC Magnesium Sulfate 50 ml @ 0 mls/hr PROTOCOL PRN IV hypomagnesemia 05/28/24 08:00 06/27/24 07:59 06/11/24 05:26 50 MLS/HR Meropenem (Merrem 1gm) 1 gm Q8H IVPB 06/13/24 15:00 06/18/24 21:57 DC 06/18/24 15:34 1 GM Meropenem (Merrem 1gm) 1 gm Q8H IVPB 06/19/24 01:00 06/21/24 00:59 DC 06/20/24 16:50 1 GM Meropenem (Merrem) 1 gm Q8H IVPB 06/11/24 15:00 06/13/24 11:52 DC 06/13/24 08:14 1 GM Meropenem 1 gm/ Sodium Chloride 100 ml @ 33.333 mls/ hr Q8H IV 06/11/24 14:30 06/11/24 14:28 DC Methylprednisolone Sodium Succinate (Solu-medROL 40MG) 20 mg Q12H IVP 06/05/24 07:00 06/09/24 09:13 DC 06/09/24 07:25 20 MG Methylprednisolone Sodium Succinate (Solu-medROL 40MG) 40 mg Q12H IVP 05/28/24 18:00 05/29/24 16:45 DC 05/29/24 05:32 40 MG Methylprednisolone Sodium Succinate (Solu-medROL 40MG) 40 mg Q6H IVP 05/29/24 16:30 06/04/24 16:44 DC 06/04/24 11:13 40 MG Methylprednisolone Sodium Succinate (Solu-medROL 40MG) 40 mg Q6H IVP 06/04/24 18:00 06/05/24 00:24 DC 06/04/24 23:48 40 MG Methylprednisolone Sodium Succinate (Solu-medROL 40MG) 40 mg Q8H IVP 05/24/24 01:00 05/25/24 21:51 DC 05/25/24 17:28 40 MG Methylprednisolone Sodium Succinate (Solu-medROL 40MG) 60 mg Q6H IVP 05/25/24 22:00 05/28/24 02:25 DC 05/27/24 23:55 60 MG Methylprednisolone Sodium Succinate (Solu-medROL 40MG) 60 mg Q6H IVP 05/28/24 06:00 05/28/24 08:27 DC 05/28/24 06:47 60 MG Methylprednisolone Sodium Succinate (Solu-medROL 40MG) 60 mg Q6H IVP 06/11/24 02:30 06/11/24 04:23 DC 06/11/24 02:46 60 MG Methylprednisolone Sodium Succinate (Solu-medROL 40MG) 80 mg Q8H IVP 06/14/24 17:00 07/14/24 08:59 06/25/24 01:00 80 MG Methylprednisolone Sodium Succinate (Solu-medROL 125MG) 80 mg Q8H IVP 06/14/24 09:00 06/14/24 14:53 DC 06/14/24 08:48 80 MG Metoclopramide HCl (regLAN 10MG/ 10ML UD CUP) 5 mg TIDAC PO 06/22/24 07:30 07/22/24 07:29 06/25/24 06:31 5 MG Metronidazole/ Sodium Chloride (flaGYL) 500 mg Q8H IV 05/25/24 22:00 05/25/24 21:56 DC Midazolam HCl 50 ml @ 0 mls/hr AD PRN IV TITRATE 06/12/24 01:30 06/12/24 08:30 DC 06/12/24 02:30 10 MLS/HR Midazolam HCl 100 ml @ 0 mls/hr AD PRN IV TITRATE 06/12/24 09:00 07/12/24 01:29 06/25/24 05:12 0 MLS/HR Morphine Sulfate (morPHINE 4MG SYG) 4 mg Q4H PRN IM RESPIRATORY SYMPTOMS 06/11/24 03:30 06/14/24 23:33 DC 06/11/24 03:27 4 MG Norepinephrine 250 ml @ 0 mls/hr PROTOCOL IV 06/23/24 21:00 07/23/24 20:59 Ondansetron HCl (zoFRAN 4MG INJ) 4 mg Q6H PRN IV NAUSEA/VOMITING 05/23/24 20:30 06/22/24 20:29 DC Pantoprazole Sodium (PROTonix 40MG INJ) 40 mg BID IVP 06/12/24 21:00 07/12/24 20:59 06/24/24 21:17 40 MG Pharmacy Profile Note (Lace Assessment) 1 each AD MISC 06/17/24 16:30 06/17/24 16:27 DC Pharmacy Profile Note (Pharmacy Communication) 1 each ONCE MISC 06/11/24 14:30 06/11/24 15:53 DC Pharmacy Profile Note (Pharmacy Communication) 1 each ONCE MISC 06/11/24 20:30 06/11/24 20:14 DC Pharmacy Profile Note (Pharmacy Communication) 1 each ONCE MISC 06/12/24 17:00 06/12/24 17:07 DC Pharmacy Profile Note (Pharmacy Communication) 1 each ONCE MISC 06/24/24 13:00 06/24/24 12:43 DC Pharmacy Profile Note (Pharmacy Communication) 1 each ONCE MISC 06/23/24 20:30 06/23/24 20:32 DC Phenylephrine HCl 10 mg/Sodium Chloride 251 ml @ 0 mls/hr AD PRN IV DIRECTED 06/11/24 03:00 06/12/24 18:12 DC 06/12/24 14:10 47 MLS/HR Phenylephrine HCl 50 mg/Sodium Chloride 250 ml @ 0 mls/hr PROTOCOL PRN IV PROTOCOL 06/12/24 18:00 07/12/24 17:59 06/13/24 08:57 12.45 MLS/HR Polyethylene Glycol (MIRalax 3350 17 GM POWD.PACK) 17 gm DAILY PO 06/22/24 09:00 07/22/24 08:59 06/24/24 08:56 17 GM Potassium Chloride 100 ml @ 100 mls/hr AD PRN IV POTASSIUM PROTOCOL 05/28/24 08:00 06/27/24 07:59 Potassium Chloride (K-Dur/Klor-Con 20meq) 20 meq AD PRN PO POTASSIUM PROTOCOL 05/28/24 08:00 06/27/24 07:59 Potassium Chloride (KCl 10% Elixir 20meq/15ml) 20 meq AD PRN PO POTASSIUM PROTOCOL 05/28/24 08:00 06/27/24 07:59 Prednisone (deltaSONE/ oraSONE 20MG TAB) 20 mg DAILY PO 06/10/24 09:00 06/14/24 08:39 DC 06/13/24 08:15 20 MG Rocuronium Ovid 100 mg/ Sodium Chloride 100 ml @ 0 mls/hr PROTOCOL IV 06/24/24 08:30 06/25/24 02:44 DC 06/25/24 01:00 0 MLS/HR Rocuronium Ovid 200 mg/ Sodium Chloride 200 ml @ 0 mls/hr PROTOCOL IV 06/25/24 03:00 07/24/24 08:29 06/25/24 05:07 0 MLS/HR Rocuronium Ovid (ZemuRON) 10 mg Q1H PRN IV RESP DISTRESS/VENT DISYNCHRONY 06/11/24 20:30 06/11/24 23:29 DC 06/11/24 20:33 10 MG Rocuronium Ovid (ZemuRON) 50 mg Q4H PRN IV VENT DYSSYNCHRONY 06/17/24 16:30 06/23/24 16:19 DC 06/23/24 04:03 50 MG Sodium Chloride 500 ml @ 500 mls/hr Q1H IV 06/02/24 20:00 06/02/24 20:59 DC 06/02/24 21:34 500 MLS/HR Sodium Chloride 1,000 ml @ 75 mls/hr [id number] IV 06/07/24 13:30 06/10/24 17:02 DC 06/10/24 09:05 75 MLS/HR Sodium Chloride (Sodium Chloride) 1,000 mg BIDAC PO 06/07/24 16:30 06/09/24 07:28 DC 06/08/24 16:58 1,000 MG Sodium Chloride (Sodium Chloride) 1,000 mg BIDAC PO 06/09/24 07:30 06/12/24 16:35 DC 06/12/24 12:30 1,000 MG Sodium Chloride (Sodium Chloride) 1,000 mg Q12H PO 06/12/24 21:00 07/09/24 07:29 06/24/24 21:19 1,000 MG Sodium Zirconium Cyclosilicate (Lokelma) 5 gm DAILY10 PO 06/08/24 10:30 06/10/24 10:29 DC 06/08/24 10:50 5 GM Trimethoprim/ Sulfamethoxazole (BactRIM DS) 1 tab BID PO 05/26/24 21:00 05/29/24 16:18 DC 05/29/24 08:07 1 TAB Trimethoprim/ Sulfamethoxazole (BactRIM DS) 2 tab TID PO 05/29/24 16:30 06/05/24 20:59 DC 06/05/24 14:55 2 TAB Trimethoprim/ Sulfamethoxazole (BactRIM DS) 2 tab TID PO 06/06/24 09:30 06/11/24 21:54 DC 06/10/24 13:58 2 TAB Trimethoprim/ Sulfamethoxazole 160 mg/Dextrose 250 ml @ 333.333 mls/hr BID@0600,1800 IV 06/22/24 06:00 06/22/24 17:17 DC 06/22/24 06:25 333.333 MLS/HR Trimethoprim/ Sulfamethoxazole 160 mg/Dextrose 250 ml @ 333.333 mls/hr DAILY IV 06/23/24 09:00 07/02/24 05:59 06/24/24 08:58 333.333 MLS/HR Trimethoprim/ Sulfamethoxazole 320 mg/Dextrose 500 ml @ 333.333 mls/hr Q8H IV 06/19/24 00:30 06/21/24 21:30 DC 06/21/24 16:16 333.333 MLS/HR Trimethoprim/ Sulfamethoxazole 320 mg/Dextrose 500 ml @ 500 mls/hr Q8H IV 06/11/24 22:30 06/12/24 16:35 DC 06/12/24 06:39 500 MLS/HR Trimethoprim/ Sulfamethoxazole 320 mg/Dextrose 500 ml @ 500 mls/hr Q8H IV 06/12/24 18:00 06/13/24 11:13 DC 06/13/24 05:30 500 MLS/HR Trimethoprim/ Sulfamethoxazole 320 mg/Dextrose 500 ml @ 500 mls/hr Q8H IV 06/13/24 13:30 06/18/24 21:55 DC 06/18/24 14:08 500 MLS/HR Trimethoprim/ Sulfamethoxazole 320 mg/Dextrose 500 ml @ 500 mls/hr Q8H IV 06/18/24 11:59 06/19/24 00:56 DC 06/18/24 11:59 500 MLS/HR Valganciclovir (ValGANCIClovir HCL) 900 mg BID PO 06/11/24 21:00 06/13/24 08:37 DC Wound Care/ Dressing Products (Venelex Ointment) 1 VOLODYMYR AD TID TP 06/14/24 14:00 07/14/24 13:59 06/24/24 21:17 1 GM DIAGNOSTICS / RADIOLOGY: [ ] ASSESSMENT: Acute hypoxemic respiratory failure, POA Bilateral lower lobe bacterial pneumonia + MRSA POA, +Azra Suspected PCP PNA based on CT findings vs viral/Atypical PNA . 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 Continue fentanyl Wean off paralytic per critical care Continue to follow critical care input recommendation Continue the patient on Bactrim, meropenem, fluconazole. Continue gancyclovir Continue furosemide 20mg BID IV q.8 hours. Continue methylprednisolone 80mg TID IV Continue to follow infectious disease input and recommendation Continue to follow chest x-ray Continue to follow ABG Continue bronchodilators per respiratory therapist Replace electrolytes IV per protocol A.m. labs GI and DVT prophylaxis. Further orders to follow based on the above results Disposition: Remains admitted to the ICU, pending improvement clinical condition. Prognosis is poor guarded. Total ICU time spent greater than 30 minutes. HEATHER RICE MD Jun 25, 2024 07:17
[2024-06-25 07:50] LABS: ABG BASE EXCESS 13.9 mmol/L (-2.0-3.0); ABG HCO3 45.1 mmol/L (21.0-28.0); ABG OXYGEN SATURATION 92.1 % (94.0-98.0); ABG PCO2 92 mmHg (32-45); ABG PH 7.308 (7.350-7.450); DEVICE COMMENT ALINE; PO2, ARTERIAL BG 72.6 mmHg (83.0-108.0)
--- NOTE | 2024-06-25 08:16 | NUR ---
Dr Jamel Coffman made Dr Urena aware that anti viral medication was brought to [facility] [place] [facility] as requested by Dr Flores. Dr Mccullough states he can meet with or call son when son is available to discuss goals of care. Per Dr Mccullough,he recommends pt be DNR, since pt voiced to him (prior to intubation) that she did not want CPR, but she wanted to continue treatment. Dr Mccullough also recommends pt be given time with the HIV treatment even if they need a trach. His reason for this recommendation is because she does not have big pneumo's and her other organs are functioning. Meghna updated Kelli pt's nurse. Sw to be notified with son at bedside. Sw to arrange meeting or call for Dr Mccullough with son Addendum: 06/25/24 at 1706 by CATA PADILLA even if pt needs to be trached.
--- NOTE | 2024-06-25 08:20 | PN ---
[facility] PROGRESS NOTE Date Patient Seen: Jun 25, 2024 Time of Visit: 08:20 Supervising Physician: Ramiro Kohler MD Primary Care Physician: Stu oFss MD Outpatient Specialists: Inpatient Consults: Pulmonology PROBLEM LIST: - Acute hypoxic respiratory failure on mechanical ventilator support via ETT - Severe Adult Respiratory Distress Syndrome - Bilateral lower lobe pneumonia with positive MRSA and confirmed PCP - Disseminated herpes simplex viral infection - Newly diagnoses HIV with AIDS - Morbid obesity, BMI 31.4 - Severe protein calorie malnutrition - Former tobacco use disorder INTERVAL HISTORY: Patient assessed at the bedside in room 208. She continues critically ill and severely deconditioned. Poor prognosis. She has been come increasingly hypercapnic although we has been per meeting some hypercapnia. Patient does not tolerate eight ventilator on assist-control volume control due to high plateaued pressors so she continues on pressure control ventilation. Adjusted to peak pressure control 25, FiO2 100% and PEEP of eight respiratory rate of 34 patient is pulling small volumes of 255 tidal volumes.She is currently on Rorcuronium, fentanyl 250 micrograms/hour, and Versed at 10 milligrams/hour. The patient has been supplied Biktarvy by [facility]. chest x-ray showing extensive pulmonary fibrosis bilaterally No Family at bedside. Called her son and updated him on current findings. REVIEW OF SYSTEMS: Unable to obtain ROS from patient due to patient's medical condition. PHYSICAL EXAM: GENERAL: Sedated and intubated, currently SUPINE HEENT: Sclera non icteric, dry scabs and sores to mucosa, sore to rt cheek NECK: short neck no JVD, trachea midline LUNGS: bilateral crackles, no wheezing HEART: Regular rate and rhythm. Normal S1 and S2, without murmurs ABD: Abdomen soft, nontender. Bowel sounds present EXT: No clubbing cyanosis or edema, sore to sacral area, NEURO: Intubated sedated and paralyzed. Vital Signs (last 8hr) Date Time Temp Pulse Resp B/P (MAP) Pulse Ox O2 Delivery O2 Flow Rate FiO2 06/25/24 07:53 100 06/25/24 06:50 60 34 06/25/24 06:49 60 90 06/25/24 06:00 60 35 102/61 (75) 87 91/53 (66) 06/25/24 05:30 62 35 108/64 (79) 89 06/25/24 05:00 83 35 132/77 (95) 96 06/25/24 04:30 73 19 119/68 (85) 93 06/25/24 04:00 97.0 06/25/24 04:00 88 Ventilator+ 85 06/25/24 04:00 97.0 59 17 97/58 (71) 93 06/25/24 03:30 59 14 100/60 (73) 93 84/50 (61) 06/25/24 03:00 76 9 118/66 (83) 94 06/25/24 02:30 64 20 134/72 (92) 92 06/25/24 02:07 72 34 06/25/24 02:07 72 85 06/25/24 02:00 71 105/59 (74) 94 97/59 (72) 06/25/24 01:30 71 106/61 (76) 93 06/25/24 01:00 71 4 112/63 (79) 92 06/25/24 00:30 69 5 102/58 (73) 95 LABS: Hematology Labs: Test 06/25/24 04:00 Range/Units White Blood Count 3.3 L 4.8-10.8 K/uL Red Blood Count 2.58 L 4.00-5.50 MIL/uL Hemoglobin 8.5 L 12.0-16.0 g/dL Hematocrit 26.5 L 36-48 % Mean Corpuscular Volume 102.7 H 79-99 fL Mean Corpuscular Hemoglobin 32.9 27.0-33.0 pg Mean Corpuscular Hemoglobin Concent 32.1 32.0-36.0 g/dL Red Cell Distribution Width 13.4 11.0-15.5 % Platelet Count 93 L 130-400 K/uL Mean Platelet Volume 10.0 7.5-10.5 fL Immature Granulocyte % (Auto) 0.9 0-1 % Neutrophils (%) (Auto) 93.4 H 40.0-77.0 % Lymphocytes (%) (Auto) 3.0 L 21.0-51.0 % Monocytes (%) (Auto) 2.7 L 3.0-13.0 % Eosinophils (%) (Auto) 0.0 0.0-8.0 % Basophils (%) (Auto) 0.0 0.0-5.0 % Neutrophils # (Auto) 3.1 1.8-7.7 K/uL Lymphocytes # (Auto) 0.1 L 1.0-4.8 K/uL Monocytes # (Auto) 0.1 0.1-1.0 K/uL Eosinophils # (Auto) 0.00 0.00-0.70 K/uL Basophils # (Auto) 0.00 0.00-0.20 K/uL Absolute Immature Granulocyte (auto 0.03 0-1 K/uL Nucleated Red Blood Cells 0.0 0.0-0.19 % White Cell Morphology Comment CONSISTENT W/DIFF Platelet Morphology See comments Chemistry Labs: Test 06/25/24 04:00 06/24/24 23:58 Range/Units Sodium Level 145 136-145 mmol/L Potassium Level 4.9 3.5-5.1 mmol/L Chloride Level 102 101-111 mmol/L Carbon Dioxide Level 45 *H 21-32 mmol/L Blood Urea Nitrogen 38 H 7-18 mg/dL Creatinine 0.3 L 0.5-1.0 mg/dL Glomerular Filtration Rate Calc 129 >90 mL/min Random Glucose 174 H 70-105 mg/dL Total Calcium 7.7 L 8.5-10.1 mg/dL Total Bilirubin 0.2 0.2-1.0 mg/dL Aspartate Amino Transf (AST/SGOT) 46 H 10-37 U/L Alanine Aminotransferase (ALT/SGPT) 101 H 12-78 U/L Alkaline Phosphatase 113 50-136 U/L Total Protein 4.2 L 6.0-8.3 g/dL Albumin 1.4 L 3.5-5.0 g/dL Whole Blood Glucose 202 H 70-110 MG/DL DIAGNOSTICS / RADIOLOGY RESULTS: Signed PATIENT: RIO OSORIO MR#: [id number] : 1975 SEX: F AGE: 49 LOCATION: [facility] ORDER 2300 STATUS: ADM IN REPORT#: [id number] SERVICE 0900 REASON: PNA ORDERING PHYSICIAN: DAYRON RUBIN NP PROCEDURE: CXR1VW - CHEST 1VW CHEST 1VW HISTORY: Pneumonia COMPARISON: 2024 FINDINGS: A frontal projection of the chest was obtained. There are bilateral pulmonary infiltrates suggestive of pulmonary vascular congestion with possible superimposed pneumonitis. The heart is borderline enlarged. All the lines and tubes are again seen in place. No evidence of aortic calcification is seen. IMPRESSION: 1. Bilateral pulmonary infiltrates are seen suggestive of pulmonary vascular congestion with possible superimposed pneumonitis. DICTATED BY: TAMARA NGUYEN MD DATE: 06/25/24821 ELECTRONICALLY SIGNED BY: TAMARA NGUYEN MD DATE: 06/25/24825 PLAN Continue sedation with fentanyl, versed continue rocuronium drip to help with ventilator synchrony cessation. manage vent per abg maintain plateu pressure of < 30 Continue steroids Continue Atrovent q.4 hours. ABX per ID Son is POA ABX per ID NEURO: Minimize central acting medications as possible. Fall Precautions. Well lighted room through the day and minimize interruptions through the night to prevent acute delirium. PULMONARY: Supplemental 02 as needed Titrate Fio2 to keep Spo2 > or = 90% DuoNebs and CPT as needed IS hourly while awake for pulmonary hygiene Out of bed to chair as tolerated CARDIOVASCULAR: Follow hemodynamics. Titrate vasopressor to keep MAP >65 or systolic blood pressure >95mmHg Telemetry LINES: CVC RT IJ Arterial line ET tube' FC OG tube GI & NUTRITION: Continue nutritional support Aspirations precautions Prokinetic agents and laxatives as needed KIDNEYS & ELECTROLYTES: Strict monitoring of intake and output Daily weights Avoid nephrotoxic agents Monitor electrolytes and replace as needed Goal urine output of 30mL/hr or 0.5mL/kg/hr ENDOCRINE: Maintain blood glucose between 100-180 at all times. Insulin sliding scale for blood glucose management INFECTIOUS DISEASE: Trend temperature. Clarke-culture if febrile. Sputum culture from 05/23/24 positive for MRSA, Betty albicans Pneumocystis carinii antigen positive Panculture: 06/02/24 Blood cultures Urine cultures Respiratory culture Antibiotics: Bactrim DS Fluconazole Valganciclovir has been supplied Biktarvy by [facility]. HEMATOLOGY & COAGULATION: Monitor H&H. Keep Hgb > 7 Transfuse 1 unit of PRBC for Hgb < 7 Transfuse 1 pack of platelets of platelets < 20, 000 Watch for any signs and symptoms of bleeding SKIN: Pressure ulcer prevention per facility protocol Rehab: PT/OT Prophylaxis: GI: Pepcid DVT: Lovenox Code Status: Full Resuscitation Disposition: ICU Other: Critical care time I personally spent 45 minutes of critical care time in treatment of this patient. This includes patient management, time at bedside, time reviewing tests, labs, appropriate images and studies, documentation, and patient care coordination. This time excludes separately billable procedures. MARGO LOGAN Jun 25, 2024 08:20
--- NOTE | 2024-06-25 08:26 | HMCIMG ---
CHEST 1VW HISTORY: Pneumonia COMPARISON: 2024 FINDINGS: A frontal projection of the chest was obtained. There are bilateral pulmonary infiltrates suggestive of pulmonary vascular congestion with possible superimposed pneumonitis. The heart is borderline enlarged. All the lines and tubes are again seen in place. No evidence of aortic calcification is seen. IMPRESSION: 1. Bilateral pulmonary infiltrates are seen suggestive of pulmonary vascular congestion with possible superimposed pneumonitis.
[2024-06-25 09:48] LABS: ABG BASE EXCESS 11.8 mmol/L (-2.0-3.0); ABG HCO3 46.6 mmol/L (21.0-28.0); ABG PCO2 133 mmHg (32-45); ABG PH 7.163 (7.350-7.450); DEVICE COMMENT ALINE; PO2, ARTERIAL BG 72.5 mmHg (83.0-108.0); VENT MODE, BG PC INSP25 (ROOM AIR)
--- NOTE | 2024-06-25 09:57 | NUR ---
CURRENT ABG REVIEWED BY Donnell LOGAN BARGE ENGINEER ICU. NO NEW ORDERS. PT O2 SAT LOW 88-90%. SHE IS ON ROCURONIUM DRIP WITH TRAIN OF 1 TO 4. FENTANYL AT 300MCG/HR, VERSED AT 10MG/HR. PRECEDEX ADDED AT 0.5MCG/KG/HR.
--- NOTE | 2024-06-25 14:02 | NUR ---
Dr Mccullough Sw spoke to pt's daughter, son and niece regarding Dr Mccullough referral. Family is agreeable to talking to Dr Mccullough. Dr Mccullough to call son at 2. Son voice his not wanting to make pt DNR for fear that aggressive care would stop as well. Sw reassured pt that care will continue if DNR is in place.
[2024-06-25 16:41] LABS: ABG BASE EXCESS 6.3 mmol/L (-2.0-3.0); ABG HCO3 43.3 mmol/L (21.0-28.0); ABG OXYGEN SATURATION 89.7 % (94.0-98.0); ABG PCO2 > 150 mmHg (32-45); PO2, ARTERIAL BG 86.3 mmHg (83.0-108.0); VENT MODE, BG ACPC25 (ROOM AIR)
--- NOTE | 2024-06-25 17:15 | NUR ---
ICU DR CASIANO ROUNDS AT BEDSIDE MADE AWARE OF ABG RESULTS. NO NEW ORDERS
--- NOTE | 2024-06-25 21:44 | PN ---
INFECTIOUS DISEASE FOLLOWUP NOTE DATE OF SERVICE: 06/25/2024 SUBJECTIVE: The patient is seen and examined at bedside today. The patient remained intubated and sedated on ventilatory support, FiO2 is 100%, with PEEP of 8. The patient has been supplied Biktarvy by [facility]. The patient is tolerating NG tube feeding. No rashes. No family at the bedside at this time. PHYSICAL EXAMINATION: VITAL SIGNS: Temperature 98.4. EYES: No icterus. Pupils equal and reactive. HENT: No oral thrush seen, orally intubated, ventilatory support. NECK: Supple. No JVD or thyromegaly. LUNGS: Crackles bilaterally, no rhonchi. CARDIOVASCULAR: S1, S2 regular. No murmur heard. ABDOMEN: Full, soft. Bowel sound is present. CENTRAL NERVOUS SYSTEM: The patient is sedated, paralyzed. SKIN: No rashes, no itchiness. LYMPHATIC: No peripheral lymphadenopathy. BACK: No deformity. EXTREMITIES: Wound in the right gluteal area. GENITOURINARY: Souza catheter in place. No hematuria. ASSESSMENT: An unfortunate, 49-year-old female admitted with shortness of breath. Current problems include: * Acute hypoxic respiratory failure, status post intubation. * Pneumocystis pneumonia. * Morbid obesity. * Cytomegalovirus infection. * Oral candidiasis. * Human immunodeficiency virus, acquired immunodeficiency syndrome. * Obesity. * Gluteal ulcer. PLAN: * Continue ganciclovir. * Continue critical support. * Continue Biktarvy. * Continue ventilatory support. * Continue NG tube feeding. * Monitor electrolytes. * Monitor renal function. * Continue wound care. * Continue DVT prophylaxis. TID: [id number] RECEIPT: [id number]
[2024-06-26] VITALS (40 sets, daily range): BP systolic 91–187; BP diastolic 49–98; PULSE 105–125; RESP 21–34; TEMP 97.3–98.6; O2SAT 88–95
[2024-06-26 04:55] LABS: BASOPHILS # (AUTO) 0.02 K/uL (0.00-0.20); BASOPHILS % (AUTO) 0.1 % (0.0-5.0); HEMATOCRIT 38.1 % (36-48); IMMATURE GRANULOCYTE ABSOLUTE 0.26 K/uL (0-1); LYMPHOCYTES # (AUTO) 0.3 K/uL (1.0-4.8); LYMPHOCYTES % (AUTO) 1.8 % (21.0-51.0); MEAN CORPUSCULAR HEMOGLOBIN 33.7 pg (27.0-33.0); MEAN CORPUSCULAR HGB CONC 30.7 g/dL (32.0-36.0); MEAN CORPUSCULAR VOLUME 109.8 fL (79-99); MONOCYTES # (AUTO) 0.6 K/uL (0.1-1.0); MONOCYTES % (AUTO) 4.1 % (3.0-13.0); NEUTROPHILS # (AUTO) 14.1 K/uL (1.8-7.7); NEUTROPHILS % (AUTO) 92.3 % (40.0-77.0); NUCLEATED RED BLOOD CELLS 0.3 % (0.0-0.19); PLATELET COUNT (AUTO) 258 K/uL (130-400); RED BLOOD CELL COUNT(AUTO) 3.47 MIL/uL (4.00-5.50); RED CELL DISTRIBUTION WIDTH 13.7 % (11.0-15.5); WHITE BLOOD COUNT (AUTO) 15.3 K/uL (4.8-10.8)
[2024-06-26 05:29] LABS: ALBUMIN 1.7 g/dL (3.5-5.0); BILIRUBIN,TOTAL 1.2 mg/dL (0.2-1.0); POTASSIUM 5.4 mmol/L (3.5-5.1)
--- NOTE | 2024-06-26 06:27 | PN ---
[facility] PROGRESS NOTE Date of Service: Jun 26, 2024 Time of Service: 06:25 SUBJECTIVE: [ ] Ms. Abdullahi is a 49-year-old female that was seen and examined today on 05/23/2024. Patient is a good historian and personal health. Patient's son Dagoberto Salcido is at bedside. Patient states that she came to the emergency department with a chief complaint of shortness of breath. Onset was two weeks ago. Location is to lungs. Duration is on and off. Character is described as "easily running out of air." Initially shortness and breath was only aggravated with climbing one or two flights of stairs but symptoms have progressively worsened and patient becomes short of breath even standing or walking short distances. There was no alleviating factors however previously symptoms were being controlled with daily morning albuterol nebulizer treatments. Patient denies any associated chest pain or dizziness. Patient reports an episode of COVID in December 2023. emergency department CBC unremarkable, chemistry unremarkable, urinalysis unremarkable, influenza screen negative, COVID negative, blood gas shows PO2 less than 45. Chest x-ray shows left lower lung pneumonia and minimal right lung base atelectasis. Upon arrival to the emergency department patient was placed on a BiPAP due to respiratory distress. 05/24/2024-patient was seen and examined at the bedside, still on BiPAP. Patient is able to speak, and says she feels much better than before. Patient says after COVID in December she developed severe bronchitis and she was on Solu-Medrol and albuterol, which did not help her much and later she had high fevers and shortness of breath which is when she came to the ED.Vitals afebrile pulse 76, RR 38 tachypneic , blood pressure 115/68, pulse oxygen 99 on BiPAP flow of 60. On ABG pH 7.47, pCO2 29, PO2 109.4, oxygen saturation 98.3. [id number] potassium 4.1 BUN15 creatinine 0.5 GFR 114. We will closely monitor the patient. [employer] Flanger consult noted waiting on the recommendation 05/25/24 patient was seen and examined and case discussed with RN and family by the bedside. She was breathing better today. She has been on BiPAP all night but now he was on 100% non-rebreather with further efforts to continue to wean the oxygen requirements down. 05/26/24 patient was seen and examined and case discussed with the RN. No acute events noted overnight. Appreciate pulmonology and ID input continue IV antibiotics and fluconazole. 05/27/24 patient is seen and examined at bedside, acute events overnight, case discussed with the RN, BP 131/64, afebrile, saturating 96-97% via Ventimask, FiO2 40%. The patient admits cough productive of clear phlegm. Serology tests reviewed, HIV preliminary positive, discussed with the patient. 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 We will continue the patient on IV antibiotics, continue fluconazole, continue to follow Pulmonary and ID input and recommendations. After provided in the preliminary results of HIV test, she denies any suicidal or homicidal ideations. 05/28 patient has been seen and examined, no acute events overnight, case discuss ed with the RN, during my visit patient is sitting comfortably in the chair, hemodynamically stable, off Ventimask, currently on 10 L via nasal cannula, saturating 98%, tolerated BiPAP overnight. she feels better, less shortness a breath, still admits cough productive of yellow phlegm. No chest pain. Getting IV antibiotics during my visit. HIV P24 antigen, nonreactive. We will continue to follow Pulmonary and Infectious Disease input and recommendations. 05/29 patient has been seen and examined, no acute events overnight, case discussed with the RN, during my visit patient is sitting comfortably in the chair, hemodynamically stable, remains on 10 L via nasal cannula, saturating 98%, still admits cough productive of yellow phlegm. No chest pain. Getting IV antibiotics during my visit. HIV P24 antigen, nonreactive. Pending CD4 cell count. We will continue to follow Pulmonary and Infectious Disease input and recommendations. 05/30 the patient has been seen and examined, no acute events overnight, BP 11 4/66, during my visit she is on Ventimask, saturating 95%, FiO2 60%. Without the Ventimask the patient desaturates to the low 70s. Patient tolerating BiPAP during the night. Still admits cough productive of thick yellow phlegm, no chest pain. Results of CD4 cell count reviewed, discussed with the patient. We will continue broad-spectrum IV antibiotics. Continue to follow Pulmonary and Infectious Disease input and recommendations. 05/31 the patient has been seen and examined, upgraded to the ICU, during my visit she is sitting in the chair, BP 113/72, heart rate of 109, she is on Oxymizer, 30 L, FiO2 100%. She is alert oriented x3, still admits cough productive of thick yellow phlegm, no chest pain. Hemoglobin 12.9, hematocrit 36.6, WBC 14.6. ABG with pH 7.4, pCO2 40, PO2. Chest x-ray shows left lower lobe infiltrate consistent with pneumonia. She is getting IV antibiotics during my visit. Patient will remain in the ICU, continue to follow critical Care as well as infectious disease input and recommendations. 06/01 patient is seen and examined, sitting comfortable in chair, awake, following commands, remains on high-flow oxygen, FiO2 70%, 30 L, BP 117/67, heart rate of 78, respiratory rate of 30-36, saturating 100%, CBC with a hemoglobin 13.6, hematocrit 38.9, WBC 12.4. Platelet count of 341. Chest x-ray showing persistent left lung infiltrate, cardiac size and mediastinum unremarkable. The bony structures are within the normal limits. Patient getting IV antibiotics during my visit. Patient to continue with the high-dose steroids. Serology test positive for Pneumocystis sandra. Patient on Bactrim two tablets p.o. t.i.d.. Continue also doxycycline and cefepime IV. Continue to follow infectious disease input and recommendation. Continue to follow Pulmonary input and recommendations. 06/02 patient is seen and examined at bedside, currently in prone position, alert oriented x3. CPT started last night, she has started having more loose phlegm expectorated. BP 114/74, tachycardic 114, saturating 95%, high-flow nasal cannula, 30 L, FiO2 80%. CBC with a hemoglobin 16.9, hemoglobin 14 0, hematocrit 39.8, platelet count 347. Chest x-ray shows persistent left lung infiltrate. 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 Serology test for toxoplasma currently pending. Patient on IV antibiotics as well as high-dose steroids. Continue to follow infectious Disease and Pulmonary input and recommendations. 06/03 patient seen at bedside, no acute events overnight. She continues with respiratory distress, with increasing oxygen requirements. Critical Care has discussed a possible need for intubation if she does not improve. She has been started on steroids due to underlying PCP pneumonia. WBC improved from 16.9 down to 13.5, sodium stable at 132, same as yesterday, lactic acid downtrending from 4.1 down to 3.2, remainder of her labs are relatively unremarkable. 06/04 patient seen at bedside, no acute events overnight. She remains on high- flow nasal cannula, mildly tachycardic. WBC elevated at 13.3, sodium decreased from 132 down to 129, remainder of her labs are relatively unremarkable. Continue to wean supplemental oxygen. Further care per critical Care 06/05 patient seen at bedside, no acute events overnight. She remains on high- flow nasal cannula with BiPAP overnight and is still tachycardic. Heart rate ranging from 104 up to 113, WBC improved from 13.3 down to 11.1, sodium decreased from 120 down to 126, remainder of her labs are relatively unremarkable. We will continue to wean oxygen as able. 06/06 Patient seen at bedside, no acute events overnight. She remains on high- flow nasal cannula with BiPAP overnight and is still tachycardic. Heart rate ranging from 104 up to 122, WBC improved from 11.1 down to 10.6, sodium improved from 126 up to 129, remainder of her labs are relatively unremarkable. We will continue to wean oxygen as able. 06/07 patient seen at bedside, no acute events overnight. She is still on high- flow nasal cannula, RT advised to wean oxygen, currently saturating 100% on 30L. She is tachycardic, sodium decreased from 129 down to 123, likely secondary to Bactrim. Patient is asymptomatic, will continue with bactrim, if sodium cont inues to decrease consider a holiday from bactrim. 06/08 patient seen at bedside, no acute events overnight. She is still on high- flow nasal cannula, RT advised to wean oxygen, currently saturating 100% on 30L. She is tachycardic, sodium stable at 123, same as yesterday. Pending improvement in respiratory status 06/09 patient seen at bedside, he remains on high-flow nasal cannula, we will continue to wean as able, appreciate pulmonology assistance, tachycardic with heart rate ranging from 123 up to 130. She is still having low-grade fevers at 100.8. Sodium increased from 123 up to 130, remainder of her labs are relatively unremarkable. 06/10 patient is seen and examined at bedside, remains on high-flow oxygen, she feels mildly anxious, no chest pain. Still with a cough productive of white phlegm. Still tachycardic, heart rate 117-122. Patient is still spiking low- grade fever. Hemoglobin 10.9, hematocrit 30.5. Sodium remained low at 128, BUN and creatinine of 16 and 0.4. 06/11 patient is seen and examined at bedside, patient now on AVAPS, FiO2 100%, patient became restless last night, she had to be started on Precedex. During my visit she remains alert oriented x3, no chest pain. BP 120/48, she is saturating 100%. Hemoglobin 10 point, hematocrit 31.3. ABG shows persistent hypoxemia, with a PO2 of 69.4. Chest x-ray shows extensive infiltrates on the left which is stable to somewhat increased, there has been interval development of perihilar infiltrate on the right. Normal bilateral lower extremity venous Doppler ultrasound. Continue the patient on prednisone 20 mg p.o. daily, continue Bactrim two tablets p.o. t.i.d. as well as fluconazole 100 mg p.o. daily. 06/12 patient is seen and examined at bedside, intubated, on mechanical ventilation, per discussion with the RN, patient was in respiratory distress yesterday, decision made to intubate the patient. During my visit the patient is midazolam, fentanyl, patient paralyzed, also on Nimbex. She is in a prone position. On pressor support with phenylephrine. Also on Precedex. She is also on hydrocortisone 100 mg IV q.8 hours. Son at bedside, updated. ABG shows pH 7.38, pCO2 47, PO2 122, bicarb of 27.7. 06/13 patient is seen and examined at bedside, remains intubated, on mechanical ventilation, remains on midazolam, fentanyl, patient paralyzed, also on Nimbex. She is in a prone position. On BP pressor support with phenylephrine. Patient is peep of seven. ABG pH 7.34, PO2 72.3. Chest x-ray reviewed, increasing bilateral infiltrates, increasing pneumomediastinum. 06/14 patient is seen and examined at bedside, remains intubated, on mechanical ventilation, prone position, remains on midazolam, fentanyl, patient paralyzed, also on Nimbex. She is in a prone position. Off pressors. Patient is peep of seven. ABG pH 7.34, PO2 72.3. Chest x-ray shows extensive bilateral infiltrates unchanged, no pneumothorax. 06/15 patient is seen and examined at bedside, remains intubated, on mechanical ventilation, prone position, remains paralyzed, on Nimbex. Off pressors. Patient is peep of 10. ABG pH 7.34, PO2 72.3. Chest x-ray shows extensive bilateral infiltrates unchanged, no pneumothorax. Overall condition remains unchanged. No family at bedside. 06/16 patient is seen and examined at bedside, remains intubated, on mechanical ventilation, discussed with the RN, the patient has been placed on supine position. Patient remains on pressor support. Remains on sedation with midazolam and fentanyl BP 114/60, afebrile saturating 96% FiO2 100%, peep of 8. ABG today with pCO2 63, PO2 91.5. Chest x-ray with severe consultation both lungs, unchanged, interval development of pneumomediastinum, moderate to severe. Continue Solu-Medrol 80 mg IV q.8 hours, continue broad-spectrum antibiotics with meropenem 1 g IV q.8 hours, the patient remains on Bactrim. Continue ganciclovir. 06/17 patient seen at bedside, no acute events overnight. She remains intubated, paralyzed on FiO2 of 100% and PEEP of eight. Continue to try to wean towards extubation. Chest x-ray appears mildly improved from yesterday. She remains supine. Hemoglobin improved from 8.4 up to 8.6, platelets decreased from 121 d own to 112, CO2 elevated at 41, same as yesterday, remainder of her labs are relatively unremarkable. Patient is still critical with poor prognosis continue further care per critical care team. 06/18 patient seen at bedside, no acute events overnight. She remains intubated and sedated, critical care weaning patient off paralyzing agents. She is still on FiO2 of 100% with PEEP of eight, PO2 on ABG 70.8 down from 80.5 yesterday demonstrating a worsening and her oxygenation within her blood at the same venti lator settings. PCO2 increased from 70 up to 75. Hemoglobin improved from 8.6 up to 9.0, platelets improved from 112 up to 127, CO2 increased from 41 up to 45, remainder of her labs are relatively unremarkable. 06/19 patient seen at bedside, no acute events overnight. She remains intubated and sedated, critical Care to continue trying to wean to extubation. Continue current care further recommendations per critical Care 2 patient is seen and examined at bedside, no acute events overnight, she remains intubated, on mechanical ventilation, off vasopressors, sedated with fentanyl and Versed, the patient on peep of 8, saturating 97%. 06/21 patient seen at bedside, no acute events overnight. She remains intubated, paralyzed on FiO2 of 100% and PEEP of eight. Continue to try to wean towards extubation. She remains supine. Chest x-ray stable. Hemoglobin at 8.6, hematocrit 28.4. remainder of her labs are relatively unremarkable. Patient is still critical with poor prognosis continue further care per critical care team. 06/22 patient seen at bedside, no acute events overnight. She remains intubated, paralyzed on FiO2 of 100% and PEEP of eight. Continue to try to wean towards extubation. She remains supine. Chest x-ray stable. Patient is still criti vito with poor prognosis continue further care per critical care team. 06/23 patient seen at bedside, no acute events overnight. She remains intubated, on FiO2 of 90% and PEEP of eight, ABG showing improved oxygenation will wean down to 80%. Continue to try to wean towards extubation. She remains supine. Chest x-ray improved from previous. Patient is still critical with poor p rognosis continue further care per critical care team. 06/24 patient seen at bedside, she had several desaturation episodes overnight however she is currently saturating well, ABG looks good. We will wean her FiO2 to 80% and continue to monitor. Continue to try and wean towards extubation. Hemoglobin decreased from 10.4 down to 9.0, platelets decreased from 125 down to 110, potassium decreased from 5.4 down to 5.2, CO2 increased from 43 up to 49, remainder of her labs are relatively unremarkable. 06/25 patient seen at bedside, she had several desaturation episodes overnight however she is currently saturating well, ABG pending this am. Continue to try and wean FiO2 and wean towards extubation. Hemoglobin decreased from 9.0 down to 8.5, platelets decreased from 110 down to 93, potassium decreased from 5.2 down to 4.9, CO2 improved from 49 down to 45, remainder of her labs are rel atively unremarkable. 06/26 patient seen at bedside, no acute events overnight. She continues to desaturate while retaining CO2, we will continue to try and wean as able. Patient was started on Biktarvy, WBC has increased up to 15.0. She is now tachycardic with heart rate ranging from 102 up to 122. Continue care per critical Care and Infectious Disease. Patient is very ill with a poor prognosis. REVIEW OF SYSTEMS 12 point review of systems negative unless noted in HPI PHYSICAL EXAM GENERAL APPEARANCE: Patient intubated, on mechanical ventilation. NEUROLOGICAL: Cranial nerves II-XII grossly intact. Motor is 5/5 in bilateral upper and lower extremities proximal to distal. No sensory deficits. HEENT: Face is symmetric. Pupils are equal and reactive. Extraocular movements are intact. NECK: Supple. No JVD. No thyromegaly. No submental, submandibular, pre- /postauricular, occipital or supraclavicular lymphadenopathy. CHEST: Normal chest expansion. No Telemetry. LUNGS: Bilateral rhonchi, no expiratory wheezing CARDIOVASCULAR: Regular. S1 and S2 normal. No appreciable rubs, murmurs or gallops. ABDOMEN: Soft, nontender, and nondistended. There is no rebound, voluntary guarding, or rigidity. : Deferred. No Souza. EXTREMITIES: Non-edematous and not cyanotic. No clubbing. Good capillary refill. SKIN: No skin breakdown. Vital Signs (last 8hr) Date Time Temp Pulse Resp B/P (MAP) Pulse Ox O2 Delivery O2 Flow Rate FiO2 06/26/24 02:47 121 100 06/26/24 01:45 112 34 06/26/24 01:00 98.1 06/26/24 00:20 108 100 06/26/24 00:00 94 Ventilator+ 100 06/26/24 00:00 123 34 106/65 (79) 91 06/26/24 00:00 97.9 06/26/24 00:00 100 06/25/24 23:09 122 34 06/25/24 23:00 122 34 109/66 (80) 91 LABS: Laboratory: Test 06/26/24 04:18 06/25/24 23:18 06/25/24 16:40 06/25/24 04:00 Range/Units White Blood Count 15.3 H 4.8-10.8 K/uL Red Blood Count 3.47 L 4.00-5.50 MIL/uL Hemoglobin 11.7 #L 12.0-16.0 g/dL Hematocrit 38.1 # 36-48 % Mean Corpuscular Volume 109.8 H 79-99 fL Mean Corpuscular Hemoglobin 33.7 H 27.0-33.0 pg Mean Corpuscular Hemoglobin Concent 30.7 L 32.0-36.0 g/dL Red Cell Distribution Width 13.7 11.0-15.5 % Platelet Count 258 # 130-400 K/uL Mean Platelet Volume 9.7 7.5-10.5 fL Immature Granulocyte % (Auto) 1.7 H 0-1 % Neutrophils (%) (Auto) 92.3 H 40.0-77.0 % Lymphocytes (%) (Auto) 1.8 L 21.0-51.0 % Monocytes (%) (Auto) 4.1 3.0-13.0 % Eosinophils (%) (Auto) 0.0 0.0-8.0 % Basophils (%) (Auto) 0.1 0.0-5.0 % Neutrophils # (Auto) 14.1 H 1.8-7.7 K/uL Lymphocytes # (Auto) 0.3 L 1.0-4.8 K/uL Monocytes # (Auto) 0.6 0.1-1.0 K/uL Eosinophils # (Auto) 0.00 0.00-0.70 K/uL Basophils # (Auto) 0.02 0.00-0.20 K/uL Absolute Immature Granulocyte (auto 0.26 0-1 K/uL Nucleated Red Blood Cells 0.3 H 0.0-0.19 % Sodium Level 142 136-145 mmol/L Potassium Level 5.4 H 3.5-5.1 mmol/L Chloride Level 101 101-111 mmol/L Carbon Dioxide Level 46 *H 21-32 mmol/L Blood Urea Nitrogen 55 H 7-18 mg/dL Creatinine 1.0 0.5-1.0 mg/dL Glomerular Filtration Rate Calc 69 >90 mL/min Random Glucose 180 H 70-105 mg/dL Lactic Acid Level 1.5 0.8-2.5 mmol/L Total Calcium 8.1 L 8.5-10.1 mg/dL Total Bilirubin 1.2 H 0.2-1.0 mg/dL Aspartate Amino Transf (AST/SGOT) 174 H 10-37 U/L Alanine Aminotransferase (ALT/SGPT) 384 H 12-78 U/L Alkaline Phosphatase 188 H 50-136 U/L Total Protein 5.0 L 6.0-8.3 g/dL Albumin 1.7 L 3.5-5.0 g/dL Whole Blood Glucose 199 H 70-110 MG/DL Blood Gas Specimen Type Arterial Arterial Blood pH 7.040 *L 7.350-7.450 Arterial Blood Partial Pressure CO2 > 150 *H 32-45 mmHg Arterial Blood Partial Pressure O2 86.3 83.0-108.0 mmHg Arterial Blood HCO3 43.3 H 21.0-28.0 mmol/L Arterial Blood Oxygen Saturation 89.7 L 94.0-98.0 % Arterial Blood Base Excess 6.3 H -2.0-3.0 mmol/L Blood Gas Temperature 37.0 35.5-37.0 CELSIUS Blood Gas Respiration Rate 34.0 min. Blood Gas Vent Mode [id number] ROOM AIR FiO2 100.0 % Blood Gas PEEP 8 cm H2O Blood Gas Specimen Comment RN CHEMO White Cell Morphology Comment CONSISTENT W/DIFF Platelet Morphology See comments Test 06/24/24 07:43 Range/Units Hemoglobin (Blood Gas) 11.1 L 12.0-16.0 g/dL Sodium (Blood Gas) 134 L 136-145 MMOL/L Bedside Potassium (Blood Gas) 4.8 H 3.4-4.5 MMOL/L Bedside Chloride (Blood Gas) 89 *L 98-107 MMOL/L Bedside Glucose (Blood Gas) 150 H 65-95 MG/DL Bedside Ionized Calcium (Blood Gas) 1.15 1.15-1.33 MMOL/L Bedside Lactic Acid (Blood Gas) 1.46 H 0.36-0.75 MMOL/L Current Medications Medications (Trade) Dose Ordered Sig/Julita Route PRN Reason Start Time Stop Time Status Last Admin Dose Admin Acetaminophen (TYLenol 650MG ELIXIR) 650 mg Q6H PRN PO MILD PAIN (1-3) 06/04/24 08:30 07/04/24 08:29 06/10/24 20:07 650 MG Acetaminophen (TYLenol 650MG SUPPOSITORY) 650 mg Q6H PRN RC MILD PAIN (1-3) 05/23/24 20:30 06/22/24 20:29 DC Acetylcysteine (MUComyst 20% 4ML) 400mg = 2ml [id number] IH 06/02/24 00:00 06/05/24 15:52 DC 06/05/24 11:35 200 MG Albuterol (DUOneb) 1 udvial [id number] IH 05/24/24 00:00 06/10/24 10:28 DC 06/10/24 06:45 1 UDVIAL Alprazolam (XANax 0.5MG) 0.5 mg Q8H PRN PO ANXIETY 06/10/24 13:30 07/10/24 13:29 06/25/24 06:30 0.5 MG Artificial Tears (Artificial Tears) 1 DROP OR AD Q8H OU 06/11/24 14:30 07/11/24 14:29 06/25/24 23:01 1 DROP Azithromycin 250 ml @ 250 mls/hr Q24H IVPB 05/24/24 17:00 05/24/24 14:41 DC Azithromycin 250 ml @ 250 mls/hr Q24H STAT IVPB 05/23/24 17:17 05/24/24 14:41 DC 05/23/24 17:45 250 MLS/HR Benzocaine (Cepacol Sore Throat Lozenge) 1 each Q4H PRN MM SORE THROAT 06/08/24 10:00 07/08/24 09:59 06/09/24 07:44 1 EACH Bisacodyl (DulcoLAX) 10 mg DAILY PRN RC CONSTIPATION 06/08/24 14:00 07/08/24 13:59 06/23/24 10:00 10 MG Cadexomer Iodine (Iodosorb Gel 40gm) 1 APPL TO RIGHT FAC... DAILY TP 06/19/24 09:00 07/18/24 08:59 06/25/24 08:49 1 APPL Cadexomer Iodine (Iodosorb Gel 40gm) 1 appl DAILY TP 06/18/24 09:00 06/19/24 07:23 DC 06/18/24 14:09 1 APPL Cefepime HCl (MAXipime 2 gm vial) 2 gm Q12H IVPB 05/24/24 15:00 06/03/24 14:59 DC 06/03/24 03:18 2 GM Ceftriaxone Sodium (ROCEphine 1G INJ) 1 gm Q24H IVPB 05/24/24 17:30 05/24/24 14:41 DC Chlorhexidine Gluconate (Peridex) 15 ml Q6H MM 06/07/24 17:00 06/11/24 14:27 DC 06/10/24 12:22 15 ML Chlorhexidine Gluconate (Peridex) 15 ml Q8H MM 06/11/24 14:30 06/25/24 14:29 DC 06/25/24 06:31 15 ML Cisatracurium Besylate (Nimbex) ONCE IVP 06/11/24 14:30 06/11/24 15:57 DC Cisatracurium Besylate 100 mg/ Sodium Chloride 100 ml @ 0 mls/hr PROTOCOL IV 06/11/24 23:30 06/23/24 16:20 DC 06/17/24 09:27 14.94 MLS/HR Cisatracurium Besylate 100 mg/ Sodium Chloride 100 ml @ 0 mls/hr PROTOCOL IV 06/23/24 16:30 06/23/24 18:43 DC 06/23/24 16:46 2.6 MLS/HR Clotrimazole (Mycelex) 10 mg TID MM 06/04/24 21:00 06/14/24 08:39 DC 06/13/24 20:28 10 MG Dexmedetomidine/ Sodium Chloride (PRECEdex 400MCG/ 100ML-NS) 400 mcg PROTOCOL IV 06/10/24 19:30 07/10/24 19:29 06/25/24 05:08 400 MCG Diphenhydramine HCl (BENAdryl INJ) 25 mg Q6H PRN IV ITCHING 06/23/24 19:00 07/23/24 18:59 06/23/24 18:54 25 MG Dobutamine HCl/ Dextrose 250 ml @ 0 mls/hr PROTOCOL IV 06/12/24 16:30 06/12/24 16:53 DC Doxycycline Hyclate 250 ml @ 125 mls/hr Q12H IV 05/24/24 16:30 06/03/24 16:29 DC 06/03/24 04:23 125 MLS/HR Enoxaparin Sodium (Lovenox 80mg) 40 mg DAILY SQ 06/15/24 09:00 06/15/24 09:30 DC Enoxaparin Sodium (Lovenox 80mg) 80 mg BID SQ 06/11/24 09:00 06/14/24 23:28 DC 06/14/24 20:33 80 MG Enoxaparin Sodium (Lovenox) 40 mg DAILY SQ 06/15/24 09:30 07/15/24 09:29 06/25/24 08:55 40 MG Enoxaparin Sodium (Lovenox) 40 mg Q24H SQ 05/23/24 21:00 06/11/24 04:36 DC 06/10/24 20:07 40 MG Famotidine (Pepcid 20mg Vial) 20 mg DAILY IV 05/24/24 09:00 06/14/24 08:39 DC 06/13/24 08:15 20 MG Fentanyl Citrate 2500 mcg/Sodium Chloride 250 ml @ 0 mls/hr AD PRN IV TITRATE 06/17/24 05:30 06/17/24 05:18 DC Fentanyl/Sodium Chloride 250 ml @ 0.1 mls/hr PROTOCOL IV 06/12/24 00:00 06/17/24 00:00 DC 06/16/24 17:36 0.1 MLS/HR Fentanyl/Sodium Chloride 250 ml @ 0 mls/hr AD PRN IV ICU SEDATION 06/17/24 05:30 06/22/24 05:29 DC 06/21/24 19:51 30 MLS/HR Fentanyl/Sodium Chloride 250 ml @ 0 mls/hr PROTOCOL IV 06/22/24 15:00 06/27/24 14:59 06/26/24 05:36 30 MLS/HR Fluconazole (DiFLUCan 100 mg TAB) 200 mg DAILY PO 06/05/24 09:00 07/05/24 08:59 06/25/24 08:54 200 MG Fluconazole/ Sodium Chloride 100 ml @ 100 mls/hr DAILY IV 05/26/24 09:00 05/27/24 15:57 DC 05/27/24 09:07 100 MLS/HR Furosemide (LASix 20MG VIAL) 20 mg DAILY IV 05/31/24 09:00 06/07/24 13:18 DC 06/03/24 08:38 20 MG Furosemide (LASix 20MG VIAL) 20 mg DAILY IV 06/17/24 10:00 06/17/24 12:13 DC 06/17/24 09:46 20 MG Furosemide (LASix 20MG VIAL) 20 mg Q12H IV 06/11/24 11:00 06/13/24 09:31 DC 06/12/24 21:54 20 MG Furosemide (LASix 20MG VIAL) 20 mg Q12H IV 06/17/24 22:00 06/18/24 10:01 DC 06/18/24 09:44 20 MG Furosemide (LASix 20MG VIAL) 20 mg Q8H IV 06/13/24 09:30 06/16/24 11:00 DC 06/16/24 08:44 20 MG Furosemide (LASix 20MG VIAL) 20 mg Q8H IV 06/19/24 17:00 07/19/24 16:59 06/26/24 01:05 20 MG Ganciclovir Sodium 430 mg/ Sodium Chloride 100 ml @ 100 mls/hr Q12H IV 06/13/24 09:00 07/13/24 08:59 06/25/24 23:00 100 MLS/HR Ganciclovir Sodium 500 mg/ Sodium Chloride 100 ml @ 100 mls/hr Q12H IV 06/11/24 18:00 06/11/24 15:48 DC Ganciclovir Sodium (Ganciclovir Sodium) 500 mg Q12H IV 06/12/24 17:00 06/13/24 08:35 DC Guaifenesin/ Dextromethorphan (RobiTUSSin DM 200/20MG 10ML) 10 ml Q4H PRN PO COUGH 05/23/24 20:30 06/22/24 20:29 DC 06/10/24 20:07 10 ML Home Med (Home Medication) BIKTARVY (1 TAB) Q24H PO 06/24/24 17:00 07/24/24 16:59 06/25/24 16:58 1 EACH Hydrocortisone Sodium Succinate (Solu-corTEF 100MG) 100 mg Q8H IV 06/11/24 05:00 06/14/24 08:39 DC 06/14/24 06:13 100 MG Hydroxyzine HCl (ATArax 25MG TAB) 25 mg TID PRN PO ITCHING 06/10/24 14:00 07/10/24 13:59 06/25/24 06:30 25 MG Insulin Human Regular (humuLIN R 100 UNIT/ML 3ML) INSULIN SLIDING SCAL... ACHS SQ 06/19/24 16:30 06/20/24 15:07 DC 06/20/24 12:30 5 UNIT Insulin Human Regular (humuLIN R 100 UNIT/ML 3ML) INSULIN SLIDING SCAL... Q6H6 SQ 06/20/24 18:00 07/19/24 16:29 06/25/24 23:22 2 UNIT Ipratropium [place] (AtrovENT UD) 0.5 MG [id number] IH 06/10/24 14:00 07/10/24 13:59 06/26/24 01:44 0.5 MG Lactated Ringer's (Lactated Ringers 1000ml) 500 ml ONCE IV 06/02/24 20:00 06/02/24 19:54 DC Levofloxacin/ Dextrose 100 ml @ 100 mls/hr Q24H IV 05/24/24 15:00 05/24/24 16:16 DC Magnesium Sulfate 50 ml @ 0 mls/hr PROTOCOL PRN IV hypomagnesemia 05/28/24 08:00 06/27/24 07:59 06/11/24 05:26 50 MLS/HR Meropenem (Merrem 1gm) 1 gm Q8H IVPB 06/13/24 15:00 06/18/24 21:57 DC 06/18/24 15:34 1 GM Meropenem (Merrem 1gm) 1 gm Q8H IVPB 06/19/24 01:00 06/21/24 00:59 DC 06/20/24 16:50 1 GM Meropenem (Merrem) 1 gm Q8H IVPB 06/11/24 15:00 06/13/24 11:52 DC 06/13/24 08:14 1 GM Meropenem 1 gm/ Sodium Chloride 100 ml @ 33.333 mls/ hr Q8H IV 06/11/24 14:30 06/11/24 14:28 DC Methylprednisolone Sodium Succinate (Solu-medROL 40MG) 20 mg Q12H IVP 06/05/24 07:00 06/09/24 09:13 DC 06/09/24 07:25 20 MG Methylprednisolone Sodium Succinate (Solu-medROL 40MG) 40 mg Q12H IVP 05/28/24 18:00 05/29/24 16:45 DC 05/29/24 05:32 40 MG Methylprednisolone Sodium Succinate (Solu-medROL 40MG) 40 mg Q6H IVP 05/29/24 16:30 06/04/24 16:44 DC 06/04/24 11:13 40 MG Methylprednisolone Sodium Succinate (Solu-medROL 40MG) 40 mg Q6H IVP 06/04/24 18:00 06/05/24 00:24 DC 06/04/24 23:48 40 MG Methylprednisolone Sodium Succinate (Solu-medROL 40MG) 40 mg Q8H IVP 05/24/24 01:00 05/25/24 21:51 DC 05/25/24 17:28 40 MG Methylprednisolone Sodium Succinate (Solu-medROL 40MG) 60 mg Q6H IVP 05/25/24 22:00 05/28/24 02:25 DC 05/27/24 23:55 60 MG Methylprednisolone Sodium Succinate (Solu-medROL 40MG) 60 mg Q6H IVP 05/28/24 06:00 05/28/24 08:27 DC 05/28/24 06:47 60 MG Methylprednisolone Sodium Succinate (Solu-medROL 40MG) 60 mg Q6H IVP 06/11/24 02:30 06/11/24 04:23 DC 06/11/24 02:46 60 MG Methylprednisolone Sodium Succinate (Solu-medROL 40MG) 80 mg Q8H IVP 06/14/24 17:00 07/14/24 08:59 06/26/24 01:05 80 MG Methylprednisolone Sodium Succinate (Solu-medROL 125MG) 80 mg Q8H IVP 06/14/24 09:00 06/14/24 14:53 DC 06/14/24 08:48 80 MG Metoclopramide HCl (regLAN 10MG/ 10ML UD CUP) 5 mg TIDAC PO 06/22/24 07:30 07/22/24 07:29 06/25/24 16:57 5 MG Metronidazole/ Sodium Chloride (flaGYL) 500 mg Q8H IV 05/25/24 22:00 05/25/24 21:56 DC Midazolam HCl 50 ml @ 0 mls/hr AD PRN IV TITRATE 06/12/24 01:30 06/12/24 08:30 DC 06/12/24 02:30 10 MLS/HR Midazolam HCl 100 ml @ 0 mls/hr AD PRN IV TITRATE 06/12/24 09:00 07/12/24 01:29 06/26/24 01:04 10 MLS/HR Morphine Sulfate (morPHINE 4MG SYG) 4 mg Q4H PRN IM RESPIRATORY SYMPTOMS 06/11/24 03:30 06/14/24 23:33 DC 06/11/24 03:27 4 MG Norepinephrine 250 ml @ 0 mls/hr PROTOCOL IV 06/23/24 21:00 07/23/24 20:59 Ondansetron HCl (zoFRAN 4MG INJ) 4 mg Q6H PRN IV NAUSEA/VOMITING 05/23/24 20:30 06/22/24 20:29 DC Pantoprazole Sodium (PROTonix 40MG INJ) 40 mg BID IVP 06/12/24 21:00 07/12/24 20:59 06/25/24 23:01 40 MG Pharmacy Profile Note (Lace Assessment) 1 each AD MISC 06/17/24 16:30 06/17/24 16:27 DC Pharmacy Profile Note (Pharmacy Communication) 1 each ONCE MISC 06/11/24 14:30 06/11/24 15:53 DC Pharmacy Profile Note (Pharmacy Communication) 1 each ONCE MISC 06/11/24 20:30 06/11/24 20:14 DC Pharmacy Profile Note (Pharmacy Communication) 1 each ONCE MISC 06/12/24 17:00 06/12/24 17:07 DC Pharmacy Profile Note (Pharmacy Communication) 1 each ONCE MISC 06/24/24 13:00 06/24/24 12:43 DC Pharmacy Profile Note (Pharmacy Communication) 1 each ONCE MISC 06/23/24 20:30 06/23/24 20:32 DC Phenylephrine HCl 10 mg/Sodium Chloride 251 ml @ 0 mls/hr AD PRN IV DIRECTED 06/11/24 03:00 06/12/24 18:12 DC 06/12/24 14:10 47 MLS/HR Phenylephrine HCl 50 mg/Sodium Chloride 250 ml @ 0 mls/hr PROTOCOL PRN IV PROTOCOL 06/12/24 18:00 07/12/24 17:59 06/13/24 08:57 12.45 MLS/HR Polyethylene Glycol (MIRalax 3350 17 GM POWD.PACK) 17 gm DAILY PO 06/22/24 09:00 07/22/24 08:59 06/25/24 08:54 17 GM Potassium Chloride 100 ml @ 100 mls/hr AD PRN IV POTASSIUM PROTOCOL 05/28/24 08:00 06/27/24 07:59 Potassium Chloride (K-Dur/Klor-Con 20meq) 20 meq AD PRN PO POTASSIUM PROTOCOL 05/28/24 08:00 06/27/24 07:59 Potassium Chloride (KCl 10% Elixir 20meq/15ml) 20 meq AD PRN PO POTASSIUM PROTOCOL 05/28/24 08:00 06/27/24 07:59 Prednisone (deltaSONE/ oraSONE 20MG TAB) 20 mg DAILY PO 06/10/24 09:00 06/14/24 08:39 DC 06/13/24 08:15 20 MG Rocuronium [place] 100 mg/ Sodium Chloride 100 ml @ 0 mls/hr PROTOCOL IV 06/24/24 08:30 06/25/24 02:44 DC 06/25/24 01:00 0 MLS/HR Rocuronium [place] 200 mg/ Sodium Chloride 200 ml @ 0 mls/hr PROTOCOL IV 06/25/24 03:00 07/24/24 08:29 06/26/24 04:52 42 MLS/HR Rocuronium [place] (ZemuRON) 10 mg Q1H PRN IV RESP DISTRESS/VENT DISYNCHRONY 06/11/24 20:30 06/11/24 23:29 DC 06/11/24 20:33 10 MG Rocuronium [place] (ZemuRON) 50 mg Q4H PRN IV VENT DYSSYNCHRONY 06/17/24 16:30 06/23/24 16:19 DC 06/23/24 04:03 50 MG Sodium Chloride 500 ml @ 500 mls/hr Q1H IV 06/02/24 20:00 06/02/24 20:59 DC 06/02/24 21:34 500 MLS/HR Sodium Chloride 1,000 ml @ 75 mls/hr [id number] IV 06/07/24 13:30 06/10/24 17:02 DC 06/10/24 09:05 75 MLS/HR Sodium Chloride (Sodium Chloride) 1,000 mg BIDAC PO 06/07/24 16:30 06/09/24 07:28 DC 06/08/24 16:58 1,000 MG Sodium Chloride (Sodium Chloride) 1,000 mg BIDAC PO 06/09/24 07:30 06/12/24 16:35 DC 06/12/24 12:30 1,000 MG Sodium Chloride (Sodium Chloride) 1,000 mg Q12H PO 06/12/24 21:00 07/09/24 07:29 06/25/24 23:01 1,000 MG Sodium Zirconium Cyclosilicate (Lokelma) 5 gm DAILY10 PO 06/08/24 10:30 06/10/24 10:29 DC 06/08/24 10:50 5 GM Trimethoprim/ Sulfamethoxazole (BactRIM DS) 1 tab BID PO 05/26/24 21:00 05/29/24 16:18 DC 05/29/24 08:07 1 TAB Trimethoprim/ Sulfamethoxazole (BactRIM DS) 2 tab TID PO 05/29/24 16:30 06/05/24 20:59 DC 06/05/24 14:55 2 TAB Trimethoprim/ Sulfamethoxazole (BactRIM DS) 2 tab TID PO 06/06/24 09:30 06/11/24 21:54 DC 06/10/24 13:58 2 TAB Trimethoprim/ Sulfamethoxazole 160 mg/Dextrose 250 ml @ 333.333 mls/hr BID@0600,1800 IV 06/22/24 06:00 06/22/24 17:17 DC 06/22/24 06:25 333.333 MLS/HR Trimethoprim/ Sulfamethoxazole 160 mg/Dextrose 250 ml @ 333.333 mls/hr DAILY IV 06/23/24 09:00 07/02/24 05:59 06/25/24 08:31 333.333 MLS/HR Trimethoprim/ Sulfamethoxazole 320 mg/Dextrose 500 ml @ 333.333 mls/hr Q8H IV 06/19/24 00:30 06/21/24 21:30 DC 06/21/24 16:16 333.333 MLS/HR Trimethoprim/ Sulfamethoxazole 320 mg/Dextrose 500 ml @ 500 mls/hr Q8H IV 06/11/24 22:30 06/12/24 16:35 DC 06/12/24 06:39 500 MLS/HR Trimethoprim/ Sulfamethoxazole 320 mg/Dextrose 500 ml @ 500 mls/hr Q8H IV 06/12/24 18:00 06/13/24 11:13 DC 06/13/24 05:30 500 MLS/HR Trimethoprim/ Sulfamethoxazole 320 mg/Dextrose 500 ml @ 500 mls/hr Q8H IV 06/13/24 13:30 06/18/24 21:55 DC 06/18/24 14:08 500 MLS/HR Trimethoprim/ Sulfamethoxazole 320 mg/Dextrose 500 ml @ 500 mls/hr Q8H IV 06/18/24 11:59 06/19/24 00:56 DC 06/18/24 11:59 500 MLS/HR Valganciclovir (ValGANCIClovir HCL) 900 mg BID PO 06/11/24 21:00 06/13/24 08:37 DC Wound Care/ Dressing Products (Venelex Ointment) 1 VOLODYMYR AD TID TP 06/14/24 14:00 07/14/24 13:59 06/25/24 23:02 1 GM DIAGNOSTICS / RADIOLOGY: [ ] ASSESSMENT: Acute hypoxemic respiratory failure, POA Bilateral lower lobe bacterial pneumonia + MRSA POA, +Azra Suspected PCP PNA based on CT findings vs viral/Atypical PNA . 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 Continue fentanyl Start daily Biktarvy Wean off paralytic per critical care Continue to follow critical care input recommendation Continue the patient on Bactrim, meropenem, fluconazole. Continue gancyclovir Continue furosemide 20mg BID IV q.8 hours. Continue methylprednisolone 80mg TID IV Continue to follow infectious disease input and recommendation Continue to follow chest x-ray Continue to follow ABG Continue bronchodilators per respiratory therapist Replace electrolytes IV per protocol A.m. labs GI and DVT prophylaxis. Further orders to follow based on the above results Disposition: Remains admitted to the ICU, pending improvement clinical condition. Prognosis is poor guarded. Total ICU time spent greater than 30 minutes. HEATHER RICE MD Jun 26, 2024 06:27
--- NOTE | 2024-06-26 09:55 | NUR ---
Dr Mccullough Per Dr Mccullough, He did speak to pt's son and family. Dr Mccullough recommended to son that pt be kept full code and then make a decision once pt is resuscitated. Pt's nurse Colton was made aware.
--- NOTE | 2024-06-26 11:17 | PN ---
[facility] PROGRESS NOTE Date Patient Seen: Jun 26, 2024 Time of Visit: 12:17 Supervising Physician: Satya Lundberg MD Primary Care Physician: Stu Foss MD Outpatient Specialists: Inpatient Consults: Pulmonology PROBLEM LIST: - Acute hypoxic hypercapnic respiratory failure on mechanical ventilator support via ETT - Severe Adult Respiratory Distress Syndrome - Bilateral lower lobe pneumonia with positive MRSA and confirmed PCP - Disseminated herpes simplex viral infection - Newly diagnoses HIV with AIDS - Morbid obesity, BMI 31.4 - Severe protein calorie malnutrition - Former tobacco use disorder INTERVAL HISTORY: Patient assessed in room 208 she continues critically ill with grim prognosis. She is hemodynamically stable off pressors and afebrile. Continues sedated and paralyzed with fentanyl at 250 mcg per hour, Versed 10 milligrams/hour, and paralyzed with rocuronium drip. Patient has worsening hypercapnia today on ve ntilator. She is not tolerating any assist-control volume control due to high plateau pressures. She is currently on pressure control, we increased pressure control from 20/5 32 in attempt to decrease CO2. Patient only pulse approximately 290-300 mL tidal volume. Minute ventilation of 11 L. she is on 100% FiO2 and PEEP of 8. Urine output of 950 mL in last 24 hours with a balance of positive 2.6 L. sodium 142, potassium 5.4 chloride of 101 carbon dioxide of 46 and BUN of 55 with a creatinine 1.0 and GFR 69. Due to serum CO2 of 46 we will hold Lasix for now. Glucose of 180 mg/dL lactic acid of 1.5 total bili 1.2 liver enzymes elevated. Ultrasound of right upper quadrant ordered. Chest x- ray today with bilateral lung decreased infiltrates. Family at the bedside. REVIEW OF SYSTEMS: Unable to obtain ROS from patient due to patient's medical condition. PHYSICAL EXAM: GENERAL: Sedated and paralyzed, intubated currently SUPINE HEENT: Sclera non icteric, dry scabs and sores to mucosa, sore to rt cheek NECK: short neck no JVD, trachea midline LUNGS: Cleared bilaterally lobes no wheezing HEART: Regular rate and rhythm. Normal S1 and S2, without murmurs ABD: Abdomen soft, nontender. Bowel sounds present EXT: No clubbing cyanosis or edema, sore to sacral area, NEURO: Intubated sedated and paralyzed. Vital Signs (last 8hr) Date Time Temp Pulse Resp B/P (MAP) Pulse Ox O2 Delivery O2 Flow Rate FiO2 06/26/24 10:31 113 34 06/26/24 09:52 115 100 06/26/24 08:57 100 06/26/24 08:00 97.9 06/26/24 08:00 91 Ventilator+ 100 06/26/24 08:00 97.9 116 21 93/51 (65) 91 100/56 (71) 06/26/24 07:00 117 23 92/53 (66) 91 102/58 (73) 06/26/24 06:56 120 34 06/26/24 06:53 120 100 06/26/24 06:00 120 34 107/63 (78) 89 117/67 (84) 06/26/24 05:00 121 34 104/62 (76) 90 114/67 (83) 06/26/24 05:00 97.3 LABS: Hematology Labs: Test 06/26/24 04:18 06/25/24 04:00 Range/Units White Blood Count 15.3 H 4.8-10.8 K/uL Red Blood Count 3.47 L 4.00-5.50 MIL/uL Hemoglobin 11.7 #L 12.0-16.0 g/dL Hematocrit 38.1 # 36-48 % Mean Corpuscular Volume 109.8 H 79-99 fL Mean Corpuscular Hemoglobin 33.7 H 27.0-33.0 pg Mean Corpuscular Hemoglobin Concent 30.7 L 32.0-36.0 g/dL Red Cell Distribution Width 13.7 11.0-15.5 % Platelet Count 258 # 130-400 K/uL Mean Platelet Volume 9.7 7.5-10.5 fL Immature Granulocyte % (Auto) 1.7 H 0-1 % Neutrophils (%) (Auto) 92.3 H 40.0-77.0 % Lymphocytes (%) (Auto) 1.8 L 21.0-51.0 % Monocytes (%) (Auto) 4.1 3.0-13.0 % Eosinophils (%) (Auto) 0.0 0.0-8.0 % Basophils (%) (Auto) 0.1 0.0-5.0 % Neutrophils # (Auto) 14.1 H 1.8-7.7 K/uL Lymphocytes # (Auto) 0.3 L 1.0-4.8 K/uL Monocytes # (Auto) 0.6 0.1-1.0 K/uL Eosinophils # (Auto) 0.00 0.00-0.70 K/uL Basophils # (Auto) 0.02 0.00-0.20 K/uL Absolute Immature Granulocyte (auto 0.26 0-1 K/uL Nucleated Red Blood Cells 0.3 H 0.0-0.19 % Red Blood Cell Morphology See comments White Cell Morphology Comment CONSISTENT W/DIFF Platelet Morphology See comments Chemistry Labs: Test 06/26/24 04:18 06/25/24 23:18 Range/Units Sodium Level 142 136-145 mmol/L Potassium Level 5.4 H 3.5-5.1 mmol/L Chloride Level 101 101-111 mmol/L Carbon Dioxide Level 46 *H 21-32 mmol/L Blood Urea Nitrogen 55 H 7-18 mg/dL Creatinine 1.0 0.5-1.0 mg/dL Glomerular Filtration Rate Calc 69 >90 mL/min Random Glucose 180 H 70-105 mg/dL Lactic Acid Level 1.5 0.8-2.5 mmol/L Total Calcium 8.1 L 8.5-10.1 mg/dL Magnesium Level 2.40 1.80-2.40 mg/dL Total Bilirubin 1.2 H 0.2-1.0 mg/dL Aspartate Amino Transf (AST/SGOT) 174 H 10-37 U/L Alanine Aminotransferase (ALT/SGPT) 384 H 12-78 U/L Alkaline Phosphatase 188 H 50-136 U/L Total Protein 5.0 L 6.0-8.3 g/dL Albumin 1.7 L 3.5-5.0 g/dL Whole Blood Glucose 199 H 70-110 MG/DL DIAGNOSTICS / RADIOLOGY RESULTS: [address] [address] IMAGING REPORT Signed PATIENT: RIO OSORIO MR#: [id number] : 1975 SEX: F AGE: 49 LOCATION: 2BH ORDER 2300 STATUS: ADM IN REPORT#: [id number] SERVICE 0900 REASON: PNA ORDERING PHYSICIAN: CARYN,HEINY A [employer] PROCEDURE: CXR1VW - CHEST 1VW CHEST 1VW HISTORY: Pneumonia COMPARISON: 06/25/2024 FINDINGS: A frontal projection of the chest was obtained. There are bilateral pulmonary infiltrates suggestive of pulmonary vascular congestion with possible superimposed pneumonitis. The heart is borderline enlarged. All the lines and tubes are again seen in place. No evidence of aortic calcification is seen. IMPRESSION: 1. No acute pulmonary infiltrate is seen. DICTATED BY: TAMARA NGUYEN MD DATE: 06/26/24 1159 ELECTRONICALLY SIGNED BY: TAMARA NGUYEN MD DATE: 06/26/24 1202 PLAN Continue sedation with fentanyl, versed continue rocuronium drip to help with ventilator synchrony cessation. manage vent per abg maintain plateu pressure of < 30 as much possible Continue steroids Continue Atrovent q.4 hours. ABX per ID Son is POA ABX per ID NEURO: Minimize central acting medications as possible. Fall Precautions. Well lighted room through the day and minimize interruptions through the night to prevent acute delirium. PULMONARY: Supplemental 02 as needed Titrate Fio2 to keep Spo2 > or = 90% DuoNebs and CPT as needed IS hourly while awake for pulmonary hygiene Out of bed to chair as tolerated Ventilator settings: Assist-control pressure control, pressure control of 32, respiratory rate 34, FiO2 100% and PEEP of eight. CARDIOVASCULAR: Follow hemodynamics. Titrate vasopressor to keep MAP >65 or systolic blood pressure >95mmHg Telemetry LINES: CVC RT IJ Arterial line ET tube' FC OG tube GI & NUTRITION: Continue nutritional support Aspirations precautions Prokinetic agents and laxatives as needed KIDNEYS & ELECTROLYTES: Strict monitoring of intake and output Daily weights Avoid nephrotoxic agents Monitor electrolytes and replace as needed Goal urine output of 30mL/hr or 0.5mL/kg/hr ENDOCRINE: Maintain blood glucose between 100-180 at all times. Insulin sliding scale for blood glucose management INFECTIOUS DISEASE: Trend temperature. Clarke-culture if febrile. Sputum culture from 05/23/24 positive for MRSA, Betty albicans Pneumocystis carinii antigen positive Panculture: 06/02/24 Blood cultures Urine cultures Respiratory culture Antibiotics: Bactrim DS Fluconazole Valganciclovir has been supplied Biktarvy by [facility]. HEMATOLOGY & COAGULATION: Monitor H&H. Keep Hgb > 7 Transfuse 1 unit of PRBC for Hgb < 7 Transfuse 1 pack of platelets of platelets < 20, 000 Watch for any signs and symptoms of bleeding SKIN: Pressure ulcer prevention per facility protocol Rehab: PT/OT Prophylaxis: GI: Pepcid DVT: Lovenox Code Status: Full Resuscitation Disposition: ICU Other: Critical care time I personally spent 45 minutes of critical care time in treatment of this patient. This includes patient management, time at bedside, time reviewing tests, labs, appropriate images and studies, documentation, and patient care coordination. This time excludes separately billable procedures. MARGO LOGAN [facility] Jun 26, 2024 11:17
[2024-06-26] MEDS: NA ZIRCON CYCLOSIL(LOKELMA 10GM) PO ONE (11:30)
--- NOTE | 2024-06-26 12:02 | HMCIMG ---
CHEST 1VW HISTORY: Pneumonia COMPARISON: 06/25/2024 FINDINGS: A frontal projection of the chest was obtained. There are bilateral pulmonary infiltrates suggestive of pulmonary vascular congestion with possible superimposed pneumonitis. The heart is borderline enlarged. All the lines and tubes are again seen in place. No evidence of aortic calcification is seen. IMPRESSION: 1. No acute pulmonary infiltrate is seen.
[2024-06-26 12:16] LABS: ABG BASE EXCESS 10.6 mmol/L (-2.0-3.0); ABG HCO3 46.3 mmol/L (21.0-28.0); ABG OXYGEN SATURATION 89.9 % (94.0-98.0); ABG PCO2 > 150 mmHg (32-45); ABG PH 7.023 (7.350-7.450); CARBON MONOXIDE 1.9 % (0.5-1.5); HHb 9.8; PO2, ARTERIAL BG 63.2 mmHg (83.0-108.0); VENT MODE, BG PC IP25 (ROOM AIR)
--- NOTE | 2024-06-26 16:23 | NUR ---
Nutrition f/u Reviewed labs, notes, and medications. Pt intubated, low CD4 count, elevated BUN 38, Cr 0.3 (L), BG 221(H), Ca 7.7 (L), elevated AST and ALT, vit. D 9.1, insulin, lasix, CO2 elevated 133 sedated per chart review. Nepro was at 25 ml/hr x 22 hrs, OGT tube in place, last BM 06/23/24, labia ulcer per nursing. Family present during visit. Observed MAP at 107, TF off during visit. Provide trickle feeds of Vital 1.0 @25 ml/hr + 250 Q4H provides: 550kcals, 22 gm pro, 1963 ml per day if Pt CO2 levels elevated and on pressors Meets: 30% of patients caloric needs, 36% of patients protein needs. Provide goal rate of Vital AF 1.2 @ 50 ml/hr x 22 hrs once Pt off pressors, CO2 WNL, not on prone position goal rate to provide 77% of kcal needs, 100% of protein needs, Monitor extubation and position of patient. Recommendations: -Provide trickle feeds while Pt on pressors, CO2 elevated -Provide goal rate Vital AF 1.2 @ 50 ml/hr x 22 hrs + 150 Q4H ONCE MEDICALLY FEASIBLE Provides: 1320 kcals, 82 gm pro, 1492 ml per day -Monitor BM -If no BM >3 days consider stool softener -Monitor electrolytes -Replenish electrolytes per protocol -Monitor wts -Reweigh as able -Provide vit. D supplement per vit. D 9.1 -Provide b-complex QD -Monitor TF tolerance + need for TF adjustment -Monitor goals of care RD to follow + available for consult per protocol Addendum: 06/26/24 at [address] Amended: Links added.
[2024-06-26] MEDS: hydrALAZine 20MG/ML VIAL IV PRN (16:27)
[2024-06-26 16:56] LABS: ABG BASE EXCESS 6.6 mmol/L (-2.0-3.0); ABG HCO3 37.1 mmol/L (21.0-28.0); ABG OXYGEN SATURATION 87.9 % (94.0-98.0); ABG PCO2 92 mmHg (32-45); ABG PH 7.221 (7.350-7.450); HHb 11.8; PO2, ARTERIAL BG 56.4 mmHg (83.0-108.0); VENT MODE, BG PC IP35 (ROOM AIR)
--- NOTE | 2024-06-26 17:05 | NUR ---
Residual Patient noted with orogastric tube residual >240 of brown/green aspirate, tube feeding is currently on hold. Will keep tube feeding off until excess residual reduces.
--- NOTE | 2024-06-26 18:00 | NUR ---
Patient noted with decreased urine output, 100ml of dark lan urine total in 12 hours. Patient also experiencing tachycardia with heart rate in 120s. [employer] answering serviced paged, pending call back.
[2024-06-26] MEDS ORDERED: 0.9%NACL 1000ML 1,000 ML IV SCH (19:00)
[2024-06-26 19:05] LABS: MAGNESIUM 1.7 mg/dL (1.80-2.40); POTASSIUM 4.4 mmol/L (3.5-5.1)
--- NOTE | 2024-06-26 22:47 | HMCIMG ---
US ABDOMINAL RUQ\E\LTD HISTORY: Elevated liver enzymes COMPARISON: None TECHNIQUE: Right upper quadrant abdominal ultrasound study was performed. FINDINGS: Liver measures 16.2 cm. Sludge material is seen throughout the gallbladder. There is small ascites. The visualized portion of the pancreas is within normal limits. Liver is echogenic consistent with liver parenchymal disease. No gallstone is seen. Common duct measures 3 mm. No evidence of gallbladder wall thickening is seen. Right kidney measures 10.5 x 5.2 x 4.3 cm. No hydronephrosis is seen of the right kidney. IMPRESSION: 1. No gallstones or ductal dilatation is seen. Sludge material in the gallbladder. Ascites. Limited study due to patient's underlying condition. 2. No hydronephrosis is seen.
[2024-06-27] VITALS (111 sets, daily range): BP systolic 81–184; BP diastolic 41–97; PULSE 58–124; RESP 28–35; TEMP 97.8–99; O2SAT 87–93
--- NOTE | 2024-06-27 00:27 | PN ---
INFECTIOUS DISEASE FOLLOWUP NOTE DATE OF SERVICE: 06/26/2024 SUBJECTIVE: The patient is seen and examined at bedside. Remained intubated, on ventilatory support. FiO2 is at 100% with PEEP of 8, pressure support is at 35. No family at bedside today. The patient is tolerating antibiotic therapy. ____ tolerating NG tube feeding. PHYSICAL EXAMINATION: VITAL SIGNS: Temperature 99.0. EYES: No icterus. Pupils equal and reactive. HENT: Orally intubated, on ventilatory support. NECK: Supple. No JVD or thyromegaly. LUNGS: Good air entry. Crackles bilaterally. CARDIOVASCULAR: S1, S2 regular. Tachycardic. ABDOMEN: Obese, soft. Bowel sound is present. CENTRAL NERVOUS SYSTEM: The patient is sedated, bedbound. SKIN: No rashes, no itchiness. Stage 2 ulcer in the gluteal area. LYMPHATIC: No peripheral lymphadenopathy. BACK: No deformities. GENITOURINARY: Souza catheter in place. No hematuria. ASSESSMENT: A 49-year-old female originally admitted with fever, cough, shortness of breath. CURRENT PROBLEMS: Include: * Obesity. * Methicillin-resistant Staphylococcus aureus pneumonia. * Oral candidiasis. * Cytomegalovirus infection. * Human immunodeficiency virus/acquired immunodeficiency syndrome. * Obesity. * Respiratory failure, status post intubation. * Right gluteal ulcer. PLAN: * Continue critical support. * Continue Biktarvy. * Continue ventilatory support. * Continue NG tube feeding. * Continue DVT prophylaxis. * Continue ganciclovir. * Monitor electrolytes. * The patient will be followed up closely. TID: [id number] RECEIPT: [id number]
[2024-06-27 03:20] LABS: HEMATOCRIT 29.6 % (36-48); IMMATURE GRANULOCYTE ABSOLUTE 0.13 K/uL (0-1); LYMPHOCYTES # (AUTO) 0.2 K/uL (1.0-4.8); LYMPHOCYTES % (AUTO) 1.5 % (21.0-51.0); MEAN CORPUSCULAR HEMOGLOBIN 33.7 pg (27.0-33.0); MEAN CORPUSCULAR HGB CONC 32.1 g/dL (32.0-36.0); MONOCYTES # (AUTO) 0.2 K/uL (0.1-1.0); MONOCYTES % (AUTO) 2.1 % (3.0-13.0); NEUTROPHILS # (AUTO) 9.5 K/uL (1.8-7.7); NEUTROPHILS % (AUTO) 95.1 % (40.0-77.0); NUCLEATED RED BLOOD CELLS 0.2 % (0.0-0.19); PLATELET COUNT (AUTO) 132 K/uL (130-400); RED BLOOD CELL COUNT(AUTO) 2.82 MIL/uL (4.00-5.50); WHITE BLOOD COUNT (AUTO) 9.9 K/uL (4.8-10.8)
[2024-06-27 03:39] LABS: ALBUMIN 1.4 g/dL (3.5-5.0); BILIRUBIN,TOTAL 0.5 mg/dL (0.2-1.0); CREATININE 1.6 mg/dL (0.5-1.0); POTASSIUM 5.3 mmol/L (3.5-5.1); TOTAL PROTEIN, SERUM 4.1 g/dL (6.0-8.3)
--- NOTE | 2024-06-27 06:23 | NUR ---
0457 NOTIFIED PRIMARY TEAM REGARDIN ELEVATED BUN AND DECREASED URINE OUTPUT, RECEIVED ORDERS READ BACK AND ENTERED INTO EMR. [address] KOO OFFICE TO NOTIFY OF NEW CONSULT PER ANSWERING SERVICE MD WILL BE PAGED/NOTIFIED.
--- NOTE | 2024-06-27 09:24 | PN ---
[facility] PROGRESS NOTE Date Patient Seen: Jun 27, 2024 Time of Visit: 10:24 Supervising Physician: Satya Lundberg MD Primary Care Physician: Stu Foss MD Outpatient Specialists: Inpatient Consults: Pulmonology PROBLEM LIST: - Acute hypoxic hypercapnic respiratory failure on mechanical ventilator support via ETT - Severe Adult Respiratory Distress Syndrome -MODS (respiratory, Liver , and kidneys) -RADHA Hyperkalemia -Transaminitis - Bilateral lower lobe pneumonia with positive MRSA and confirmed PCP - Disseminated herpes simplex viral infection - Newly diagnoses HIV with AIDS - Morbid obesity, BMI 31.4 - Severe protein calorie malnutrition - Former tobacco use disorder INTERVAL HISTORY: 06/27/24- The patient continues critically ill. Continues on mechanical ventilation sedated on fentanyl 300 micrograms/hour, Versed 10 milligrams/hour and rocuronium per per lysing agent. She has been hemodynamically stable not on any pressors current heart rate in the 60s respiratory rate 34 on the vent saturating 91% on FiO2 100% peep of 8. Vent mode pressure control of 35, respiratory rate of 34. ABGs improved this morning pH of 7.35 pCO2 of 63 PO2 of 65.4 and bicarb of 34.6. Kidneys are worsening with poor urine output of 175 mL in the last 24 hours. Nephrology has been consulted and pharmacy has been con sulted for adjustment of antibiotics to creatinine clearance. Cr of 1.6 gfr of 39 and BUN of 75. Potassium of 5.3 and corrected with lokelma x1. WBC WBCs have normalized 9.9 H&H ishave normal 9.5/29.6i platelet count is 132zed, hh s on CBC there is improvementt withabl white count of 9.9 H&H 9.5e, platelet count is normal. Chest XR with increased pulmonary vascular congestion. REVIEW OF SYSTEMS: Unable to obtain ROS from patient due to patient's medical condition. PHYSICAL EXAM: GENERAL: Sedated and paralyzed, intubated currently SUPINE HEENT: Sclera non icteric, dry scabs and sores to mucosa, sore to rt cheek NECK: short neck no JVD, trachea midline LUNGS: Cleared bilaterally lobes no wheezing HEART: Regular rate and rhythm. Normal S1 and S2, without murmurs ABD: Abdomen soft, nontender. Bowel sounds present EXT: No clubbing cyanosis or edema, sore to sacral area, NEURO: Intubated sedated and paralyzed. Vital Signs (last 8hr) Date Time Temp Pulse Resp B/P (MAP) Pulse Ox O2 Delivery O2 Flow Rate FiO2 06/27/24 08:59 114 100 06/27/24 06:52 99 34 06/27/24 06:50 99 100 06/27/24 06:00 100 34 113/61 (78) 92 06/27/24 05:45 100 34 112/60 (77) 92 115/68 (84) 06/27/24 05:30 100 34 112/61 (78) 92 06/27/24 05:15 101 34 107/59 (75) 92 06/27/24 05:12 92 Ventilator+ 100 06/27/24 05:00 102 34 112/61 (78) 92 06/27/24 04:45 102 34 111/60 (77) 92 115/71 (86) 06/27/24 04:32 101 100 06/27/24 04:30 102 34 107/60 (76) 91 06/27/24 04:15 103 34 101/58 (72) 91 06/27/24 04:00 99.0 06/27/24 04:00 102 34 111/60 (77) 92 115/71 (86) 06/27/24 04:00 100 06/27/24 03:45 104 34 105/61 (76) 86 111/67 (82) 06/27/24 03:30 104 34 101/58 (72) 89 113/65 (81) 06/27/24 03:15 109 34 81/49 (60) 85 06/27/24 03:00 110 34 84/50 (61) 85 105/58 (74) LABS: Hematology Labs: Test 06/27/24 03:06 06/26/24 04:18 Range/Units White Blood Count 9.9 # 4.8-10.8 K/uL Red Blood Count 2.82 L 4.00-5.50 MIL/uL Hemoglobin 9.5 L 12.0-16.0 g/dL Hematocrit 29.6 #L 36-48 % Mean Corpuscular Volume 105.0 H 79-99 fL Mean Corpuscular Hemoglobin 33.7 H 27.0-33.0 pg Mean Corpuscular Hemoglobin Concent 32.1 32.0-36.0 g/dL Red Cell Distribution Width 14.0 11.0-15.5 % Platelet Count 132 # 130-400 K/uL Mean Platelet Volume 10.4 7.5-10.5 fL Immature Granulocyte % (Auto) 1.3 H 0-1 % Neutrophils (%) (Auto) 95.1 H 40.0-77.0 % Lymphocytes (%) (Auto) 1.5 L 21.0-51.0 % Monocytes (%) (Auto) 2.1 L 3.0-13.0 % Eosinophils (%) (Auto) 0.0 0.0-8.0 % Basophils (%) (Auto) 0.0 0.0-5.0 % Neutrophils # (Auto) 9.5 H 1.8-7.7 K/uL Lymphocytes # (Auto) 0.2 L 1.0-4.8 K/uL Monocytes # (Auto) 0.2 0.1-1.0 K/uL Eosinophils # (Auto) 0.00 0.00-0.70 K/uL Basophils # (Auto) 0.00 0.00-0.20 K/uL Absolute Immature Granulocyte (auto 0.13 0-1 K/uL Nucleated Red Blood Cells 0.2 H 0.0-0.19 % Red Blood Cell Morphology See comments Chemistry Labs: Test 06/27/24 06:17 06/27/24 03:06 06/26/24 18:49 Range/Units Whole Blood Glucose 247 H 70-110 MG/DL Sodium Level 139 136-145 mmol/L Potassium Level 5.3 H 3.5-5.1 mmol/L Chloride Level 101 101-111 mmol/L Carbon Dioxide Level 39 H 21-32 mmol/L Blood Urea Nitrogen 75 #*H 7-18 mg/dL Creatinine 1.6 H 0.5-1.0 mg/dL Glomerular Filtration Rate Calc 39 >90 mL/min Random Glucose 274 #H 70-105 mg/dL Total Calcium 7.3 L 8.5-10.1 mg/dL Total Bilirubin 0.5 # 0.2-1.0 mg/dL Aspartate Amino Transf (AST/SGOT) 92 H 10-37 U/L Alanine Aminotransferase (ALT/SGPT) 300 #H 12-78 U/L Alkaline Phosphatase 166 H 50-136 U/L Total Protein 4.1 L 6.0-8.3 g/dL Albumin 1.4 L 3.5-5.0 g/dL Lactic Acid Level 0.7 L 0.8-2.5 mmol/L Magnesium Level 1.70 L 1.80-2.40 mg/dL DIAGNOSTICS / RADIOLOGY RESULTS: Signed PATIENT: RIO OSORIO MR#: [id number] : 1975 SEX: F AGE: 49 LOCATION: 2BH ORDER 2300 STATUS: ADM IN REPORT#: [id number] SERVICE 0600 REASON: Hypoxic respiratory failure ORDERING PHYSICIAN: MARGO LOGAN PROCEDURE: CXR1VW - CHEST 1VW CHEST 1VW HISTORY: Respiratory failure COMPARISON: 06/26/2024 FINDINGS: A frontal projection of the chest was obtained. There are bilateral pulmonary infiltrates suggestive of pulmonary vascular congestion with possible superimposed pneumonitis. The heart is borderline enlarged. All the lines and tubes are again seen in place. No evidence of aortic calcification is seen. IMPRESSION: 1. Bilateral pulmonary infiltrates are seen suggestive of pulmonary vascular congestion with possible superimposed pneumonitis. Mild interval worsening is seen. DICTATED BY: TAMARA NGUYEN MD DATE: 06/27/24 1146 ELECTRONICALLY SIGNED BY: TAMARA NGUYEN MD DATE: 06/27/24 1150 PLAN Continue sedation with fentanyl, versed continue rocuronium drip to help with ventilator synchrony cessation. manage vent per abg maintain plateu pressure of < 30 as much possible Continue steroids consult nephrology for recommendations pharmacy to adjust Bactrim and antiviral to Cr Clearance. Continue Atrovent q.4 hours. ABX per ID Son is POA ABX per ID NEURO: Minimize central acting medications as possible. Fall Precautions. Well lighted room through the day and minimize interruptions through the night to prevent acute delirium. PULMONARY: Supplemental 02 as needed Titrate Fio2 to keep Spo2 > or = 90% DuoNebs and CPT as needed IS hourly while awake for pulmonary hygiene Out of bed to chair as tolerated Ventilator settings: Assist-control pressure control, pressure control of 32, respiratory rate 34, FiO2 100% and PEEP of eight. CARDIOVASCULAR: Follow hemodynamics. Titrate vasopressor to keep MAP >65 or systolic blood pressure >95mmHg Telemetry LINES: CVC RT IJ Arterial line ET tube' FC OG tube GI & NUTRITION: Continue nutritional support Aspirations precautions Prokinetic agents and laxatives as needed KIDNEYS & ELECTROLYTES: Strict monitoring of intake and output Daily weights Avoid nephrotoxic agents Monitor electrolytes and replace as needed Goal urine output of 30mL/hr or 0.5mL/kg/hr ENDOCRINE: Maintain blood glucose between 100-180 at all times. Insulin sliding scale for blood glucose management INFECTIOUS DISEASE: Trend temperature. Clarke-culture if febrile. Sputum culture from 05/23/24 positive for MRSA, Betty albicans Pneumocystis carinii antigen positive Panculture: 06/02/24 Blood cultures Urine cultures Respiratory culture Antibiotics: Bactrim DS Fluconazole Valganciclovir has been supplied Biktarvy by [facility]. HEMATOLOGY & COAGULATION: Monitor H&H. Keep Hgb > 7 Transfuse 1 unit of PRBC for Hgb < 7 Transfuse 1 pack of platelets of platelets < 20, 000 Watch for any signs and symptoms of bleeding SKIN: Pressure ulcer prevention per facility protocol Rehab: PT/OT Prophylaxis: GI: Pepcid DVT: Heparin Code Status: Full Resuscitation Disposition: ICU Other: Critical care time I personally spent 45 minutes of critical care time in treatment of this patient. This includes patient management, time at bedside, time reviewing tests, labs, appropriate images and studies, documentation, and patient care coordination. This time excludes separately billable procedures. MARGO LOGAN Jun 27, 2024 09:24
[2024-06-27 10:06] LABS: ABG BASE EXCESS 7.7 mmol/L (-2.0-3.0); ABG HCO3 34.6 mmol/L (21.0-28.0); ABG OXYGEN SATURATION 91.2 % (94.0-98.0); ABG PCO2 63 mmHg (32-45); ABG PH 7.356 (7.350-7.450); CARBON MONOXIDE 0.7 % (0.5-1.5); HHb 8.7; PO2, ARTERIAL BG 65.4 mmHg (83.0-108.0); VENT MODE, BG PC (ROOM AIR)
[2024-06-27] MEDS: BUMETANIDE 1MG/4ML VIAL IVP ONE (11:04)
[2024-06-27] MEDS: NA ZIRCON CYCLOSIL(LOKELMA 10GM) PO ONE (11:04)
[2024-06-27] MEDS: CALCIUM GLUC 1GM 1 GM in 0.9%NACL 100ML 100 ML IV SCH (11:40)
--- NOTE | 2024-06-27 11:50 | HMCIMG ---
CHEST 1VW HISTORY: Respiratory failure COMPARISON: 06/26/2024 FINDINGS: A frontal projection of the chest was obtained. There are bilateral pulmonary infiltrates suggestive of pulmonary vascular congestion with possible superimposed pneumonitis. The heart is borderline enlarged. All the lines and tubes are again seen in place. No evidence of aortic calcification is seen. IMPRESSION: 1. Bilateral pulmonary infiltrates are seen suggestive of pulmonary vascular congestion with possible superimposed pneumonitis. Mild interval worsening is seen.
[2024-06-27] MEDS: dexmedeTOMIDine 400MCG/NS100ML IV SCH (12:12)
--- NOTE | 2024-06-27 12:52 | PN ---
[facility] PROGRESS NOTE Date of Service: Jun 27, 2024 Time of Service: 12:48 SUBJECTIVE: [ ] Ms. Abdullahi is a 49-year-old female that was seen and examined today on 05/23/2024. Patient is a good historian and personal health. Patient's son Dagoberto Salcido is at bedside. Patient states that she came to the emergency department with a chief complaint of shortness of breath. Onset was two weeks ago. Location is to lungs. Duration is on and off. Character is described as "easily running out of air." Initially shortness and breath was only aggravated with climbing one or two flights of stairs but symptoms have progressively worsened and patient becomes short of breath even standing or walking short distances. There was no alleviating factors however previously symptoms were being controlled with daily morning albuterol nebulizer treatments. Patient denies any associated chest pain or dizziness. Patient reports an episode of COVID in December 2023. emergency department CBC unremarkable, chemistry unremarkable, urinalysis unremarkable, influenza screen negative, COVID negative, blood gas shows PO2 less than 45. Chest x-ray shows left lower lung pneumonia and minimal right lung base atelectasis. Upon arrival to the emergency department patient was placed on a BiPAP due to respiratory distress. 05/24/2024-patient was seen and examined at the bedside, still on BiPAP. Patient is able to speak, and says she feels much better than before. Patient says after COVID in December she developed severe bronchitis and she was on Solu-Medrol and albuterol, which did not help her much and later she had high fevers and shortness of breath which is when she came to the ED.Vitals afebrile pulse 76, RR 38 tachypneic , blood pressure 115/68, pulse oxygen 99 on BiPAP flow of 60. On ABG pH 7.47, pCO2 29, PO2 109.4, oxygen saturation 98.3. [id number] potassium 4.1 BUN15 creatinine 0.5 GFR 114. We will closely monitor the patient. Well Dr[employer] Helper consult noted waiting on the recommendation 05/25/24 patient was seen and examined and case discussed with RN and family by the bedside. She was breathing better today. She has been on BiPAP all night but now he was on 100% non-rebreather with further efforts to continue to wean the oxygen requirements down. 05/26/24 patient was seen and examined and case discussed with the RN. No acute events noted overnight. Appreciate pulmonology and ID input continue IV antibiotics and fluconazole. 05/27/24 patient is seen and examined at bedside, acute events overnight, case discussed with the RN, BP 131/64, afebrile, saturating 96-97% via Ventimask, FiO2 40%. The patient admits cough productive of clear phlegm. Serology tests reviewed, HIV preliminary positive, discussed with the patient. 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 We will continue the patient on IV antibiotics, continue fluconazole, continue to follow Pulmonary and ID input and recommendations. After provided in the preliminary results of HIV test, she denies any suicidal or homicidal ideations. 05/28 patient has been seen and examined, no acute events overnight, case discuss ed with the RN, during my visit patient is sitting comfortably in the chair, hemodynamically stable, off Ventimask, currently on 10 L via nasal cannula, saturating 98%, tolerated BiPAP overnight. she feels better, less shortness a breath, still admits cough productive of yellow phlegm. No chest pain. Getting IV antibiotics during my visit. HIV P24 antigen, nonreactive. We will continue to follow Pulmonary and Infectious Disease input and recommendations. 05/29 patient has been seen and examined, no acute events overnight, case discussed with the RN, during my visit patient is sitting comfortably in the chair, hemodynamically stable, remains on 10 L via nasal cannula, saturating 98%, still admits cough productive of yellow phlegm. No chest pain. Getting IV antibiotics during my visit. HIV P24 antigen, nonreactive. Pending CD4 cell count. We will continue to follow Pulmonary and Infectious Disease input and recommendations. 05/30 the patient has been seen and examined, no acute events overnight, BP 11 4/66, during my visit she is on Ventimask, saturating 95%, FiO2 60%. Without the Ventimask the patient desaturates to the low 70s. Patient tolerating BiPAP during the night. Still admits cough productive of thick yellow phlegm, no chest pain. Results of CD4 cell count reviewed, discussed with the patient. We will continue broad-spectrum IV antibiotics. Continue to follow Pulmonary and Infectious Disease input and recommendations. 05/31 the patient has been seen and examined, upgraded to the ICU, during my visit she is sitting in the chair, BP 113/72, heart rate of 109, she is on Oxymizer, 30 L, FiO2 100%. She is alert oriented x3, still admits cough productive of thick yellow phlegm, no chest pain. Hemoglobin 12.9, hematocrit 36.6, WBC 14.6. ABG with pH 7.4, pCO2 40, PO2. Chest x-ray shows left lower lobe infiltrate consistent with pneumonia. She is getting IV antibiotics during my visit. Patient will remain in the ICU, continue to follow critical Care as well as infectious disease input and recommendations. 06/01 patient is seen and examined, sitting comfortable in chair, awake, following commands, remains on high-flow oxygen, FiO2 70%, 30 L, BP 117/67, heart rate of 78, respiratory rate of 30-36, saturating 100%, CBC with a hemoglobin 13.6, hematocrit 38.9, WBC 12.4. Platelet count of 341. Chest x-ray showing persistent left lung infiltrate, cardiac size and mediastinum unremarkable. The bony structures are within the normal limits. Patient getting IV antibiotics during my visit. Patient to continue with the high-dose steroids. Serology test positive for Pneumocystis sandra. Patient on Bactrim two tablets p.o. t.i.d.. Continue also doxycycline and cefepime IV. Continue to follow infectious disease input and recommendation. Continue to follow Pulmonary input and recommendations. 06/02 patient is seen and examined at bedside, currently in prone position, alert oriented x3. CPT started last night, she has started having more loose phlegm expectorated. BP 114/74, tachycardic 114, saturating 95%, high-flow nasal cannula, 30 L, FiO2 80%. CBC with a hemoglobin 16.9, hemoglobin 14 0, hematocrit 39.8, platelet count 347. Chest x-ray shows persistent left lung infiltrate. 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 Serology test for toxoplasma currently pending. Patient on IV antibiotics as well as high-dose steroids. Continue to follow infectious Disease and Pulmonary input and recommendations. 06/03 patient seen at bedside, no acute events overnight. She continues with respiratory distress, with increasing oxygen requirements. Critical Care has discussed a possible need for intubation if she does not improve. She has been started on steroids due to underlying PCP pneumonia. WBC improved from 16.9 down to 13.5, sodium stable at 132, same as yesterday, lactic acid downtrending from 4.1 down to 3.2, remainder of her labs are relatively unremarkable. 06/04 patient seen at bedside, no acute events overnight. She remains on high- flow nasal cannula, mildly tachycardic. WBC elevated at 13.3, sodium decreased from 132 down to 129, remainder of her labs are relatively unremarkable. Continue to wean supplemental oxygen. Further care per critical Care 06/05 patient seen at bedside, no acute events overnight. She remains on high- flow nasal cannula with BiPAP overnight and is still tachycardic. Heart rate ranging from 104 up to 113, WBC improved from 13.3 down to 11.1, sodium decreased from 120 down to 126, remainder of her labs are relatively unremarkable. We will continue to wean oxygen as able. 06/06 Patient seen at bedside, no acute events overnight. She remains on high- flow nasal cannula with BiPAP overnight and is still tachycardic. Heart rate ranging from 104 up to 122, WBC improved from 11.1 down to 10.6, sodium improved from 126 up to 129, remainder of her labs are relatively unremarkable. We will continue to wean oxygen as able. 06/07 patient seen at bedside, no acute events overnight. She is still on high- flow nasal cannula, RT advised to wean oxygen, currently saturating 100% on 30L. She is tachycardic, sodium decreased from 129 down to 123, likely secondary to Bactrim. Patient is asymptomatic, will continue with bactrim, if sodium cont inues to decrease consider a holiday from bactrim. 06/08 patient seen at bedside, no acute events overnight. She is still on high- flow nasal cannula, RT advised to wean oxygen, currently saturating 100% on 30L. She is tachycardic, sodium stable at 123, same as yesterday. Pending improvement in respiratory status 06/09 patient seen at bedside, he remains on high-flow nasal cannula, we will continue to wean as able, appreciate pulmonology assistance, tachycardic with heart rate ranging from 123 up to 130. She is still having low-grade fevers at 100.8. Sodium increased from 123 up to 130, remainder of her labs are relatively unremarkable. 06/10 patient is seen and examined at bedside, remains on high-flow oxygen, she feels mildly anxious, no chest pain. Still with a cough productive of white phlegm. Still tachycardic, heart rate 117-122. Patient is still spiking low- grade fever. Hemoglobin 10.9, hematocrit 30.5. Sodium remained low at 128, BUN and creatinine of 16 and 0.4. 06/11 patient is seen and examined at bedside, patient now on AVAPS, FiO2 100%, patient became restless last night, she had to be started on Precedex. During my visit she remains alert oriented x3, no chest pain. BP 120/48, she is saturating 100%. Hemoglobin 10 point, hematocrit 31.3. ABG shows persistent hypoxemia, with a PO2 of 69.4. Chest x-ray shows extensive infiltrates on the left which is stable to somewhat increased, there has been interval development of perihilar infiltrate on the right. Normal bilateral lower extremity venous Doppler ultrasound. Continue the patient on prednisone 20 mg p.o. daily, continue Bactrim two tablets p.o. t.i.d. as well as fluconazole 100 mg p.o. daily. 06/12 patient is seen and examined at bedside, intubated, on mechanical ventilation, per discussion with the RN, patient was in respiratory distress yesterday, decision made to intubate the patient. During my visit the patient is midazolam, fentanyl, patient paralyzed, also on Nimbex. She is in a prone position. On pressor support with phenylephrine. Also on Precedex. She is also on hydrocortisone 100 mg IV q.8 hours. Son at bedside, updated. ABG shows pH 7.38, pCO2 47, PO2 122, bicarb of 27.7. 06/13 patient is seen and examined at bedside, remains intubated, on mechanical ventilation, remains on midazolam, fentanyl, patient paralyzed, also on Nimbex. She is in a prone position. On BP pressor support with phenylephrine. Patient is peep of seven. ABG pH 7.34, PO2 72.3. Chest x-ray reviewed, increasing bilateral infiltrates, increasing pneumomediastinum. 06/14 patient is seen and examined at bedside, remains intubated, on mechanical ventilation, prone position, remains on midazolam, fentanyl, patient paralyzed, also on Nimbex. She is in a prone position. Off pressors. Patient is peep of seven. ABG pH 7.34, PO2 72.3. Chest x-ray shows extensive bilateral infiltrates unchanged, no pneumothorax. 06/15 patient is seen and examined at bedside, remains intubated, on mechanical ventilation, prone position, remains paralyzed, on Nimbex. Off pressors. Patient is peep of 10. ABG pH 7.34, PO2 72.3. Chest x-ray shows extensive bilateral infiltrates unchanged, no pneumothorax. Overall condition remains unchanged. No family at bedside. 06/16 patient is seen and examined at bedside, remains intubated, on mechanical ventilation, discussed with the RN, the patient has been placed on supine position. Patient remains on pressor support. Remains on sedation with midazolam and fentanyl BP 114/60, afebrile saturating 96% FiO2 100%, peep of 8. ABG today with pCO2 63, PO2 91.5. Chest x-ray with severe consultation both lungs, unchanged, interval development of pneumomediastinum, moderate to severe. Continue Solu-Medrol 80 mg IV q.8 hours, continue broad-spectrum antibiotics with meropenem 1 g IV q.8 hours, the patient remains on Bactrim. Continue ganciclovir. 06/17 patient seen at bedside, no acute events overnight. She remains intubated, paralyzed on FiO2 of 100% and PEEP of eight. Continue to try to wean towards extubation. Chest x-ray appears mildly improved from yesterday. She remains supine. Hemoglobin improved from 8.4 up to 8.6, platelets decreased from 121 d own to 112, CO2 elevated at 41, same as yesterday, remainder of her labs are relatively unremarkable. Patient is still critical with poor prognosis continue further care per critical care team. 06/18 patient seen at bedside, no acute events overnight. She remains intubated and sedated, critical care weaning patient off paralyzing agents. She is still on FiO2 of 100% with PEEP of eight, PO2 on ABG 70.8 down from 80.5 yesterday demonstrating a worsening and her oxygenation within her blood at the same venti lator settings. PCO2 increased from 70 up to 75. Hemoglobin improved from 8.6 up to 9.0, platelets improved from 112 up to 127, CO2 increased from 41 up to 45, remainder of her labs are relatively unremarkable. 06/19 patient seen at bedside, no acute events overnight. She remains intubated and sedated, critical Care to continue trying to wean to extubation. Continue current care further recommendations per critical Care 2 patient is seen and examined at bedside, no acute events overnight, she remains intubated, on mechanical ventilation, off vasopressors, sedated with fentanyl and Versed, the patient on peep of 8, saturating 97%. 06/21 patient seen at bedside, no acute events overnight. She remains intubated, paralyzed on FiO2 of 100% and PEEP of eight. Continue to try to wean towards extubation. She remains supine. Chest x-ray stable. Hemoglobin at 8.6, hematocrit 28.4. remainder of her labs are relatively unremarkable. Patient is still critical with poor prognosis continue further care per critical care team. 06/22 patient seen at bedside, no acute events overnight. She remains intubated, paralyzed on FiO2 of 100% and PEEP of eight. Continue to try to wean towards extubation. She remains supine. Chest x-ray stable. Patient is still criti vito with poor prognosis continue further care per critical care team. 06/23 patient seen at bedside, no acute events overnight. She remains intubated, on FiO2 of 90% and PEEP of eight, ABG showing improved oxygenation will wean down to 80%. Continue to try to wean towards extubation. She remains supine. Chest x-ray improved from previous. Patient is still critical with poor p rognosis continue further care per critical care team. 06/24 patient seen at bedside, she had several desaturation episodes overnight however she is currently saturating well, ABG looks good. We will wean her FiO2 to 80% and continue to monitor. Continue to try and wean towards extubation. Hemoglobin decreased from 10.4 down to 9.0, platelets decreased from 125 down to 110, potassium decreased from 5.4 down to 5.2, CO2 increased from 43 up to 49, remainder of her labs are relatively unremarkable. 06/25 patient seen at bedside, she had several desaturation episodes overnight however she is currently saturating well, ABG pending this am. Continue to try and wean FiO2 and wean towards extubation. Hemoglobin decreased from 9.0 down to 8.5, platelets decreased from 110 down to 93, potassium decreased from 5.2 down to 4.9, CO2 improved from 49 down to 45, remainder of her labs are rel atively unremarkable. 06/26 patient seen at bedside, no acute events overnight. She continues to desaturate while retaining CO2, we will continue to try and wean as able. Patient was started on Biktarvy, WBC has increased up to 15.0. She is now tachycardic with heart rate ranging from 102 up to 122. Continue care per critical Care and Infectious Disease. Patient is very ill with a poor prognosis. 06/27 patient is seen and examined, remains intubated, on mechanical ventilation, sedated with fentanyl, rocuronium, Versed. Remains on vasopressors with Mario- Synephrine. BP 114/57. ABG with pH of 7.35, pCO2 63, PO2 65. Chest x-ray reviewed, persistent bilateral pulmonary infiltrates suggestive of pulmonary vascular congestion with possible superimposed pneumonitis, mild interval worsening seen. REVIEW OF SYSTEMS 12 point review of systems negative unless noted in HPI PHYSICAL EXAM GENERAL APPEARANCE: Patient intubated, on mechanical ventilation. NEUROLOGICAL: Cranial nerves II-XII grossly intact. Motor is 5/5 in bilateral upper and lower extremities proximal to distal. No sensory deficits. HEENT: Face is symmetric. Pupils are equal and reactive. Extraocular movements are intact. NECK: Supple. No JVD. No thyromegaly. No submental, submandibular, pre- /postauricular, occipital or supraclavicular lymphadenopathy. CHEST: Normal chest expansion. No Telemetry. LUNGS: Bilateral rhonchi, no expiratory wheezing CARDIOVASCULAR: Regular. S1 and S2 normal. No appreciable rubs, murmurs or gallops. ABDOMEN: Soft, nontender, and nondistended. There is no rebound, voluntary guarding, or rigidity. : Deferred. No Souza. EXTREMITIES: Non-edematous and not cyanotic. No clubbing. Good capillary refill. SKIN: No skin breakdown. Vital Signs (last 8hr) Date Time Temp Pulse Resp B/P (MAP) Pulse Ox O2 Delivery O2 Flow Rate FiO2 06/27/24 12:04 93 Ventilator+ 100 06/27/24 12:00 100 06/27/24 12:00 98.2 06/27/24 12:00 71 34 114/57 (76) 94 06/27/24 11:46 70 34 101/50 (67) 94 123/67 (85) 06/27/24 11:45 70 34 96/47 (63) 94 06/27/24 11:30 77 34 184/94 (124) 95 06/27/24 11:20 76 34 151/76 (101) 93 162/95 (117) 06/27/24 11:19 78 100 06/27/24 11:15 73 34 166/93 (117) 90 06/27/24 11:00 72 34 121/65 (83) 92 06/27/24 10:46 74 34 123/68 (86) 93 130/79 (96) 06/27/24 10:45 73 34 123/66 (85) 92 06/27/24 10:30 76 34 142/76 (98) 92 06/27/24 10:15 111 34 06/27/24 10:15 78 34 154/81 (105) 92 06/27/24 10:00 79 34 141/74 (96) 90 06/27/24 09:45 84 35 147/77 (100) 91 06/27/24 09:30 98 34 91/54 (66) 87 06/27/24 09:15 103 34 110/62 (78) 88 06/27/24 09:00 108 34 109/63 (78) 88 06/27/24 08:59 114 100 06/27/24 08:45 110 34 120/68 (85) 89 06/27/24 08:30 113 34 139/76 (97) 91 06/27/24 08:15 113 34 161/84 (109) 91 06/27/24 08:00 98.1 06/27/24 08:00 112 34 161/84 (109) 91 06/27/24 08:00 100 06/27/24 07:45 112 34 174/89 (117) 91 06/27/24 07:30 114 34 184/93 (123) 91 06/27/24 07:15 112 34 177/90 (119) 92 06/27/24 07:00 99 34 121/64 (83) 92 06/27/24 07:00 92 Ventilator+ 100 06/27/24 06:52 99 34 06/27/24 06:50 99 100 06/27/24 06:46 98 34 119/63 (81) 92 120/70 (87) 06/27/24 06:45 96 34 118/62 (80) 92 06/27/24 06:00 100 34 113/61 (78) 92 06/27/24 05:45 100 34 112/60 (77) 92 115/68 (84) 06/27/24 05:30 100 34 112/61 (78) 92 06/27/24 05:15 101 34 107/59 (75) 92 06/27/24 05:12 92 Ventilator+ 100 06/27/24 05:00 102 34 112/61 (78) 92 LABS: Laboratory: Test 06/27/24 11:11 06/27/24 10:05 06/27/24 03:06 06/26/24 18:49 Range/Units Whole Blood Glucose 218 H 70-110 MG/DL Blood Gas Specimen Type Arterial Arterial Blood pH 7.356 7.350-7.450 Arterial Blood Partial Pressure CO2 63 *H 32-45 mmHg Arterial Blood Partial Pressure O2 65.4 L 83.0-108.0 mmHg Arterial Blood HCO3 34.6 H 21.0-28.0 mmol/L Arterial Blood Oxygen Saturation 91.2 L 94.0-98.0 % Arterial Blood Base Excess 7.7 H -2.0-3.0 mmol/L Hemoglobin (Blood Gas) 9.6 L 12.0-16.0 g/dL Sodium (Blood Gas) 138 136-145 MMOL/L Bedside Potassium (Blood Gas) 4.4 3.4-4.5 MMOL/L Bedside Chloride (Blood Gas) 99 98-107 MMOL/L Bedside Glucose (Blood Gas) 194 H 65-95 MG/DL Bedside Ionized Calcium (Blood Gas) 0.99 L 1.15-1.33 MMOL/L Bedside Lactic Acid (Blood Gas) 0.99 H 0.36-0.75 MMOL/L Blood Gas Temperature 37.0 35.5-37.0 CELSIUS Blood Gas Respiration Rate 34.0 min. Blood Gas Vent Mode PC ROOM AIR FiO2 100.0 % Blood Gas PEEP 8 cm H2O Blood Gas Specimen Comment [facility] White Blood Count 9.9 # 4.8-10.8 K/uL Red Blood Count 2.82 L 4.00-5.50 MIL/uL Hemoglobin 9.5 L 12.0-16.0 g/dL Hematocrit 29.6 #L 36-48 % Mean Corpuscular Volume 105.0 H 79-99 fL Mean Corpuscular Hemoglobin 33.7 H 27.0-33.0 pg Mean Corpuscular Hemoglobin Concent 32.1 32.0-36.0 g/dL Red Cell Distribution Width 14.0 11.0-15.5 % Platelet Count 132 # 130-400 K/uL Mean Platelet Volume 10.4 7.5-10.5 fL Immature Granulocyte % (Auto) 1.3 H 0-1 % Neutrophils (%) (Auto) 95.1 H 40.0-77.0 % Lymphocytes (%) (Auto) 1.5 L 21.0-51.0 % Monocytes (%) (Auto) 2.1 L 3.0-13.0 % Eosinophils (%) (Auto) 0.0 0.0-8.0 % Basophils (%) (Auto) 0.0 0.0-5.0 % Neutrophils # (Auto) 9.5 H 1.8-7.7 K/uL Lymphocytes # (Auto) 0.2 L 1.0-4.8 K/uL Monocytes # (Auto) 0.2 0.1-1.0 K/uL Eosinophils # (Auto) 0.00 0.00-0.70 K/uL Basophils # (Auto) 0.00 0.00-0.20 K/uL Absolute Immature Granulocyte (auto 0.13 0-1 K/uL Nucleated Red Blood Cells 0.2 H 0.0-0.19 % Sodium Level 139 136-145 mmol/L Potassium Level 5.3 H 3.5-5.1 mmol/L Chloride Level 101 101-111 mmol/L Carbon Dioxide Level 39 H 21-32 mmol/L Blood Urea Nitrogen 75 #*H 7-18 mg/dL Creatinine 1.6 H 0.5-1.0 mg/dL Glomerular Filtration Rate Calc 39 >90 mL/min Random Glucose 274 #H 70-105 mg/dL Total Calcium 7.3 L 8.5-10.1 mg/dL Total Bilirubin 0.5 # 0.2-1.0 mg/dL Aspartate Amino Transf (AST/SGOT) 92 H 10-37 U/L Alanine Aminotransferase (ALT/SGPT) 300 #H 12-78 U/L Alkaline Phosphatase 166 H 50-136 U/L Total Protein 4.1 L 6.0-8.3 g/dL Albumin 1.4 L 3.5-5.0 g/dL Lactic Acid Level 0.7 L 0.8-2.5 mmol/L Magnesium Level 1.70 L 1.80-2.40 mg/dL Test 06/26/24 04:18 Range/Units Red Blood Cell Morphology See comments Current Medications Medications (Trade) Dose Ordered Sig/Julita Route PRN Reason Start Time Stop Time Status Last Admin Dose Admin Acetaminophen (TYLenol 650MG ELIXIR) 650 mg Q6H PRN PO MILD PAIN (1-3) 06/04/24 08:30 07/04/24 08:29 06/10/24 20:07 650 MG Acetaminophen (TYLenol 650MG SUPPOSITORY) 650 mg Q6H PRN RC MILD PAIN (1-3) 05/23/24 20:30 06/22/24 20:29 DC Acetylcysteine (MUComyst 20% 4ML) 400mg = 2ml [id number] IH 06/02/24 00:00 06/05/24 15:52 DC 06/05/24 11:35 200 MG Albuterol (DUOneb) 1 udvial [id number] IH 05/24/24 00:00 06/10/24 10:28 DC 06/10/24 06:45 1 UDVIAL Alprazolam (XANax 0.5MG) 0.5 mg Q8H PRN PO ANXIETY 06/10/24 13:30 07/10/24 13:29 06/25/24 06:30 0.5 MG Artificial Tears (Artificial Tears) 1 DROP OR AD Q8H OU 06/11/24 14:30 07/11/24 14:29 06/27/24 08:22 1 DROP Azithromycin 250 ml @ 250 mls/hr Q24H IVPB 05/24/24 17:00 05/24/24 14:41 DC Azithromycin 250 ml @ 250 mls/hr Q24H STAT IVPB 05/23/24 17:17 05/24/24 14:41 DC 05/23/24 17:45 250 MLS/HR Benzocaine (Cepacol Sore Throat Lozenge) 1 each Q4H PRN MM SORE THROAT 06/08/24 10:00 07/08/24 09:59 06/09/24 07:44 1 EACH Bisacodyl (DulcoLAX) 10 mg DAILY PRN RC CONSTIPATION 06/08/24 14:00 07/08/24 13:59 06/23/24 10:00 10 MG Cadexomer Iodine (Iodosorb Gel 40gm) 1 APPL TO RIGHT FAC... DAILY TP 06/19/24 09:00 07/18/24 08:59 06/27/24 08:23 1 APPL Cadexomer Iodine (Iodosorb Gel 40gm) 1 appl DAILY TP 06/18/24 09:00 06/19/24 07:23 DC 06/18/24 14:09 1 APPL Calcium Gluconate 1 gm/Sodium Chloride 100 ml @ 0 mls/hr PROTOCOL IV 06/27/24 10:30 07/27/24 10:29 06/27/24 11:40 100 MLS/HR Cefepime HCl (MAXipime 2 gm vial) 2 gm Q12H IVPB 05/24/24 15:00 06/03/24 14:59 DC 06/03/24 03:18 2 GM Ceftriaxone Sodium (ROCEphine 1G INJ) 1 gm Q24H IVPB 05/24/24 17:30 05/24/24 14:41 DC Chlorhexidine Gluconate (Peridex) 15 ml Q6H MM 06/07/24 17:00 06/11/24 14:27 DC 06/10/24 12:22 15 ML Chlorhexidine Gluconate (Peridex) 15 ml Q8H MM 06/11/24 14:30 06/25/24 14:29 DC 06/25/24 06:31 15 ML Cisatracurium Besylate (Nimbex) ONCE IVP 06/11/24 14:30 06/11/24 15:57 DC Cisatracurium Besylate 100 mg/ Sodium Chloride 100 ml @ 0 mls/hr PROTOCOL IV 06/11/24 23:30 06/23/24 16:20 DC 06/17/24 09:27 14.94 MLS/HR Cisatracurium Besylate 100 mg/ Sodium Chloride 100 ml @ 0 mls/hr PROTOCOL IV 06/23/24 16:30 06/23/24 18:43 DC 06/23/24 16:46 2.6 MLS/HR Clotrimazole (Mycelex) 10 mg TID MM 06/04/24 21:00 06/14/24 08:39 DC 06/13/24 20:28 10 MG Dexmedetomidine/ Sodium Chloride (PRECEdex 400MCG/ 100ML-NS) 400 mcg PROTOCOL IV 06/10/24 19:30 06/27/24 09:26 DC 06/25/24 05:08 400 MCG Dexmedetomidine/ Sodium Chloride (PRECEdex 400MCG/ 100ML-NS) 400 mcg PROTOCOL IV 06/27/24 09:30 07/27/24 09:29 06/27/24 12:12 400 MCG Diphenhydramine HCl (BENAdryl INJ) 25 mg Q6H PRN IV ITCHING 06/23/24 19:00 07/23/24 18:59 06/23/24 18:54 25 MG Dobutamine HCl/ Dextrose 250 ml @ 0 mls/hr PROTOCOL IV 06/12/24 16:30 06/12/24 16:53 DC Doxycycline Hyclate 250 ml @ 125 mls/hr Q12H IV 05/24/24 16:30 06/03/24 16:29 DC 06/03/24 04:23 125 MLS/HR Enoxaparin Sodium (Lovenox 80mg) 40 mg DAILY SQ 06/15/24 09:00 06/15/24 09:30 DC Enoxaparin Sodium (Lovenox 80mg) 80 mg BID SQ 06/11/24 09:00 06/14/24 23:28 DC 06/14/24 20:33 80 MG Enoxaparin Sodium (Lovenox) 40 mg DAILY SQ 06/15/24 09:30 07/15/24 09:29 06/27/24 08:19 40 MG Enoxaparin Sodium (Lovenox) 40 mg Q24H SQ 05/23/24 21:00 06/11/24 04:36 DC 06/10/24 20:07 40 MG Famotidine (Pepcid 20mg Vial) 20 mg DAILY IV 05/24/24 09:00 06/14/24 08:39 DC 06/13/24 08:15 20 MG Fentanyl Citrate 2500 mcg/Sodium Chloride 250 ml @ 0 mls/hr AD PRN IV TITRATE 06/17/24 05:30 06/17/24 05:18 DC Fentanyl/Sodium Chloride 250 ml @ 0.1 mls/hr PROTOCOL IV 06/12/24 00:00 06/17/24 00:00 DC 06/16/24 17:36 0.1 MLS/HR Fentanyl/Sodium Chloride 250 ml @ 0 mls/hr AD PRN IV ICU SEDATION 06/17/24 05:30 06/22/24 05:29 DC 06/21/24 19:51 30 MLS/HR Fentanyl/Sodium Chloride 250 ml @ 0 mls/hr PROTOCOL IV 06/22/24 15:00 06/27/24 14:59 06/27/24 12:13 35 MLS/HR Fluconazole (DiFLUCan 100 mg TAB) 200 mg DAILY PO 06/05/24 09:00 07/05/24 08:59 06/27/24 08:21 200 MG Fluconazole/ Sodium Chloride 100 ml @ 100 mls/hr DAILY IV 05/26/24 09:00 05/27/24 15:57 DC 05/27/24 09:07 100 MLS/HR Furosemide (LASix 20MG VIAL) 20 mg DAILY IV 05/31/24 09:00 06/07/24 13:18 DC 06/03/24 08:38 20 MG Furosemide (LASix 20MG VIAL) 20 mg DAILY IV 06/17/24 10:00 06/17/24 12:13 DC 06/17/24 09:46 20 MG Furosemide (LASix 20MG VIAL) 20 mg Q12H IV 06/11/24 11:00 06/13/24 09:31 DC 06/12/24 21:54 20 MG Furosemide (LASix 20MG VIAL) 20 mg Q12H IV 06/17/24 22:00 06/18/24 10:01 DC 06/18/24 09:44 20 MG Furosemide (LASix 20MG VIAL) 20 mg Q8H IV 06/13/24 09:30 06/16/24 11:00 DC 06/16/24 08:44 20 MG Furosemide (LASix 20MG VIAL) 20 mg Q8H IV 06/19/24 17:00 06/26/24 11:05 DC 06/26/24 09:13 20 MG Ganciclovir Sodium 430 mg/ Sodium Chloride 100 ml @ 100 mls/hr Q12H IV 06/13/24 09:00 07/13/24 08:59 06/27/24 11:41 100 MLS/HR Ganciclovir Sodium 500 mg/ Sodium Chloride 100 ml @ 100 mls/hr Q12H IV 06/11/24 18:00 06/11/24 15:48 DC Ganciclovir Sodium (Ganciclovir Sodium) 500 mg Q12H IV 06/12/24 17:00 06/13/24 08:35 DC Guaifenesin/ Dextromethorphan (RobiTUSSin DM 200/20MG 10ML) 10 ml Q4H PRN PO COUGH 05/23/24 20:30 06/22/24 20:29 DC 06/10/24 20:07 10 ML Home Med (Home Medication) BIKTARVY (1 TAB) Q24H PO 06/24/24 17:00 07/24/24 16:59 06/26/24 16:27 1 EACH Hydralazine HCl (APRESOLine 20MG INJ) 10 mg Q4H PRN IV ADMINISTER FOR SBP > 160 06/26/24 16:30 07/26/24 16:29 06/26/24 16:27 10 MG Hydrocortisone Sodium Succinate (Solu-corTEF 100MG) 100 mg Q8H IV 06/11/24 05:00 06/14/24 08:39 DC 06/14/24 06:13 100 MG Hydroxyzine HCl (ATArax 25MG TAB) 25 mg TID PRN PO ITCHING 06/10/24 14:00 07/10/24 13:59 06/27/24 08:20 25 MG Insulin Human Regular (humuLIN R 100 UNIT/ML 3ML) INSULIN SLIDING SCAL... ACHS SQ 06/19/24 16:30 06/20/24 15:07 DC 06/20/24 12:30 5 UNIT Insulin Human Regular (humuLIN R 100 UNIT/ML 3ML) INSULIN SLIDING SCAL... Q6H6 SQ 06/20/24 18:00 07/19/24 16:29 06/27/24 11:55 3 UNIT Ipratropium Snow Shoe (AtrovENT UD) 0.5 MG [id number] IH 06/10/24 14:00 07/10/24 13:59 06/27/24 10:20 0.5 MG Lactated Ringer's (Lactated Ringers 1000ml) 500 ml ONCE IV 06/02/24 20:00 06/02/24 19:54 DC Levofloxacin/ Dextrose 100 ml @ 100 mls/hr Q24H IV 05/24/24 15:00 05/24/24 16:16 DC Magnesium Sulfate 50 ml @ 0 mls/hr PROTOCOL PRN IV hypomagnesemia 05/28/24 08:00 06/27/24 07:59 DC 06/11/24 05:26 50 MLS/HR Meropenem (Merrem 1gm) 1 gm Q8H IVPB 06/13/24 15:00 06/18/24 21:57 DC 06/18/24 15:34 1 GM Meropenem (Merrem 1gm) 1 gm Q8H IVPB 06/19/24 01:00 06/21/24 00:59 DC 06/20/24 16:50 1 GM Meropenem (Merrem) 1 gm Q8H IVPB 06/11/24 15:00 06/13/24 11:52 DC 06/13/24 08:14 1 GM Meropenem 1 gm/ Sodium Chloride 100 ml @ 33.333 mls/ hr Q8H IV 06/11/24 14:30 06/11/24 14:28 DC Methylprednisolone Sodium Succinate (Solu-medROL 40MG) 20 mg Q12H IVP 06/05/24 07:00 06/09/24 09:13 DC 06/09/24 07:25 20 MG Methylprednisolone Sodium Succinate (Solu-medROL 40MG) 40 mg Q12H IVP 05/28/24 18:00 05/29/24 16:45 DC 05/29/24 05:32 40 MG Methylprednisolone Sodium Succinate (Solu-medROL 40MG) 40 mg Q6H IVP 05/29/24 16:30 06/04/24 16:44 DC 06/04/24 11:13 40 MG Methylprednisolone Sodium Succinate (Solu-medROL 40MG) 40 mg Q6H IVP 06/04/24 18:00 06/05/24 00:24 DC 06/04/24 23:48 40 MG Methylprednisolone Sodium Succinate (Solu-medROL 40MG) 40 mg Q8H IVP 05/24/24 01:00 05/25/24 21:51 DC 05/25/24 17:28 40 MG Methylprednisolone Sodium Succinate (Solu-medROL 40MG) 60 mg Q6H IVP 05/25/24 22:00 05/28/24 02:25 DC 05/27/24 23:55 60 MG Methylprednisolone Sodium Succinate (Solu-medROL 40MG) 60 mg Q6H IVP 05/28/24 06:00 05/28/24 08:27 DC 05/28/24 06:47 60 MG Methylprednisolone Sodium Succinate (Solu-medROL 40MG) 60 mg Q6H IVP 06/11/24 02:30 06/11/24 04:23 DC 06/11/24 02:46 60 MG Methylprednisolone Sodium Succinate (Solu-medROL 40MG) 80 mg Q8H IVP 06/14/24 17:00 07/14/24 08:59 06/27/24 08:20 80 MG Methylprednisolone Sodium Succinate (Solu-medROL 125MG) 80 mg Q8H IVP 06/14/24 09:00 06/14/24 14:53 DC 06/14/24 08:48 80 MG Metoclopramide HCl (regLAN 10MG/ 10ML UD CUP) 5 mg TIDAC PO 06/22/24 07:30 07/22/24 07:29 06/27/24 11:04 5 MG Metronidazole/ Sodium Chloride (flaGYL) 500 mg Q8H IV 05/25/24 22:00 05/25/24 21:56 DC Midazolam HCl 50 ml @ 0 mls/hr AD PRN IV TITRATE 06/12/24 01:30 06/12/24 08:30 DC 06/12/24 02:30 10 MLS/HR Midazolam HCl 100 ml @ 0 mls/hr AD PRN IV TITRATE 06/12/24 09:00 07/12/24 01:29 06/27/24 03:45 10 MLS/HR Morphine Sulfate (morPHINE 4MG SYG) 4 mg Q4H PRN IM RESPIRATORY SYMPTOMS 06/11/24 03:30 06/14/24 23:33 DC 06/11/24 03:27 4 MG Norepinephrine 250 ml @ 0 mls/hr PROTOCOL IV 06/23/24 21:00 07/23/24 20:59 Ondansetron HCl (zoFRAN 4MG INJ) 4 mg Q6H PRN IV NAUSEA/VOMITING 05/23/24 20:30 06/22/24 20:29 DC Pantoprazole Sodium (PROTonix 40MG INJ) 40 mg BID IVP 06/12/24 21:00 07/12/24 20:59 06/27/24 08:18 40 MG Pharmacy Profile Note (Lace Assessment) 1 each AD MISC 06/17/24 16:30 06/17/24 16:27 DC Pharmacy Profile Note (Pharmacy Communication) 1 each ONCE MISC 06/11/24 14:30 06/11/24 15:53 DC Pharmacy Profile Note (Pharmacy Communication) 1 each ONCE MISC 06/11/24 20:30 06/11/24 20:14 DC Pharmacy Profile Note (Pharmacy Communication) 1 each ONCE MISC 06/12/24 17:00 06/12/24 17:07 DC Pharmacy Profile Note (Pharmacy Communication) 1 each ONCE MISC 06/24/24 13:00 06/24/24 12:43 DC Pharmacy Profile Note (Pharmacy Communication) 1 each ONCE [facility] [place]/23/24 20:30 06/23/24 20:32 DC Phenylephrine HCl 10 mg/Sodium Chloride 251 ml @ 0 mls/hr AD PRN IV DIRECTED 06/11/24 03:00 06/12/24 18:12 DC 06/12/24 14:10 47 MLS/HR Phenylephrine HCl 50 mg/Sodium Chloride 250 ml @ 0 mls/hr PROTOCOL PRN IV PROTOCOL 06/12/24 18:00 07/12/24 17:59 06/13/24 08:57 12.45 MLS/HR Polyethylene Glycol (MIRalax 3350 17 GM POWD.PACK) 17 gm DAILY PO 06/22/24 09:00 07/22/24 08:59 06/27/24 08:19 17 GM Potassium Chloride 100 ml @ 100 mls/hr AD PRN IV POTASSIUM PROTOCOL 05/28/24 08:00 06/27/24 07:59 DC Potassium Chloride (K-Dur/Klor-Con 20meq) 20 meq AD PRN PO POTASSIUM PROTOCOL 05/28/24 08:00 06/27/24 07:59 DC Potassium Chloride (KCl 10% Elixir 20meq/15ml) 20 meq AD PRN PO POTASSIUM PROTOCOL 05/28/24 08:00 06/27/24 07:59 DC Prednisone (deltaSONE/ oraSONE 20MG TAB) 20 mg DAILY PO 06/10/24 09:00 06/14/24 08:39 DC 06/13/24 08:15 20 MG Rocuronium Snow Shoe 100 mg/ Sodium Chloride 100 ml @ 0 mls/hr PROTOCOL IV 06/24/24 08:30 06/25/24 02:44 DC 06/25/24 01:00 0 MLS/HR Rocuronium [place]oe 200 mg/ Sodium Chloride 200 ml @ 0 mls/hr PROTOCOL IV 06/25/24 03:00 07/24/24 08:29 06/27/24 03:42 43 MLS/HR Rocuronium [place]oe (ZemuRON) 10 mg Q1H PRN IV RESP DISTRESS/VENT DISYNCHRONY 06/11/24 20:30 06/11/24 23:29 DC 06/11/24 20:33 10 MG Rocuronium [place]oe (ZemuRON) 50 mg Q4H PRN IV VENT DYSSYNCHRONY 06/17/24 16:30 06/23/24 16:19 DC 06/23/24 04:03 50 MG Sodium Chloride 500 ml @ 500 mls/hr Q1H IV 06/02/24 20:00 06/02/24 20:59 DC 06/02/24 21:34 500 MLS/HR Sodium Chloride 1,000 ml @ 0 mls/hr Q0M IV 06/26/24 19:00 07/26/24 18:59 Sodium Chloride 1,000 ml @ 75 mls/hr [id number] IV 06/07/24 13:30 06/10/24 17:02 DC 06/10/24 09:05 75 MLS/HR Sodium Chloride (Sodium Chloride) 1,000 mg BIDAC PO 06/07/24 16:30 06/09/24 07:28 DC 06/08/24 16:58 1,000 MG Sodium Chloride (Sodium Chloride) 1,000 mg BIDAC PO 06/09/24 07:30 06/12/24 16:35 DC 06/12/24 12:30 1,000 MG Sodium Chloride (Sodium Chloride) 1,000 mg Q12H PO 06/12/24 21:00 07/09/24 07:29 06/27/24 08:22 1,000 MG Sodium Zirconium Cyclosilicate (Lokelma) 5 gm DAILY10 PO 06/08/24 10:30 06/10/24 10:29 DC 06/08/24 10:50 5 GM Trimethoprim/ Sulfamethoxazole (BactRIM DS) 1 tab BID PO 05/26/24 21:00 05/29/24 16:18 DC 05/29/24 08:07 1 TAB Trimethoprim/ Sulfamethoxazole (BactRIM DS) 2 tab TID PO 05/29/24 16:30 06/05/24 20:59 DC 06/05/24 14:55 2 TAB Trimethoprim/ Sulfamethoxazole (BactRIM DS) 2 tab TID PO 06/06/24 09:30 06/11/24 21:54 DC 06/10/24 13:58 2 TAB Trimethoprim/ Sulfamethoxazole 160 mg/Dextrose 250 ml @ 333.333 mls/hr BID@0600,1800 IV 06/22/24 06:00 06/22/24 17:17 DC 06/22/24 06:25 333.333 MLS/HR Trimethoprim/ Sulfamethoxazole 160 mg/Dextrose 250 ml @ 333.333 mls/hr DAILY IV 06/23/24 09:00 07/02/24 05:59 06/26/24 10:16 333.333 MLS/HR Trimethoprim/ Sulfamethoxazole 320 mg/Dextrose 500 ml @ 333.333 mls/hr Q8H IV 06/19/24 00:30 06/21/24 21:30 DC 06/21/24 16:16 333.333 MLS/HR Trimethoprim/ Sulfamethoxazole 320 mg/Dextrose 500 ml @ 500 mls/hr Q8H IV 06/11/24 22:30 06/12/24 16:35 DC 06/12/24 06:39 500 MLS/HR Trimethoprim/ Sulfamethoxazole 320 mg/Dextrose 500 ml @ 500 mls/hr Q8H IV 06/12/24 18:00 06/13/24 11:13 DC 06/13/24 05:30 500 MLS/HR Trimethoprim/ Sulfamethoxazole 320 mg/Dextrose 500 ml @ 500 mls/hr Q8H IV 06/13/24 13:30 06/18/24 21:55 DC 06/18/24 14:08 500 MLS/HR Trimethoprim/ Sulfamethoxazole 320 mg/Dextrose 500 ml @ 500 mls/hr Q8H IV 06/18/24 11:59 06/19/24 00:56 DC 06/18/24 11:59 500 MLS/HR Valganciclovir (ValGANCIClovir HCL) 900 mg BID PO 06/11/24 21:00 06/13/24 08:37 DC Wound Care/ Dressing Products (Venelex Ointment) 1 VOLODYMYR AD TID TP 06/14/24 14:00 07/14/24 13:59 06/27/24 08:23 1 GM DIAGNOSTICS / RADIOLOGY: [ ] CHEST 1VW HISTORY: Respiratory failure COMPARISON: 06/26/2024 FINDINGS: A frontal projection of the chest was obtained. There are bilateral pulmonary infiltrates suggestive of pulmonary vascular congestion with possible superimposed pneumonitis. The heart is borderline enlarged. All the lines and tubes are again seen in place. No evidence of aortic calcification is seen. IMPRESSION: 1. Bilateral pulmonary infiltrates are seen suggestive of pulmonary vascular congestion with possible superimposed pneumonitis. Mild interval worsening is seen. ASSESSMENT: Acute hypoxemic respiratory failure, POA Bilateral lower lobe bacterial pneumonia + MRSA POA, +Azra Suspected PCP PNA based on CT findings vs viral/Atypical PNA . 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 Continue to follow critical care input and recommendation Continue broad-spectrum antibiotics Continue gancyclovir Continue furosemide 20mg BID IV q.8 hours. Continue methylprednisolone 80mg TID IV Continue to follow infectious disease input and recommendation Continue to follow chest x-ray Continue to follow ABG Continue bronchodilators per respiratory therapist Replace electrolytes IV per protocol A.m. labs GI and DVT prophylaxis. Further orders to follow based on the above results Disposition: Remains admitted to the ICU, pending improvement clinical condition. Prognosis is poor guarded. Total ICU time spent greater than 30 minutes. GAIL WALDRON MD Jun 27, 2024 12:52
--- NOTE | 2024-06-27 15:31 | NUR ---
[facility] Follow-up: Patient re-assessed by wound healing team. See wound assessment. Assessment and recommendations provided to primary nurse. Education provided. Addendum: 06/28/24 at 1014 by RULA RODRIGUEZ RN RN/ Amended: Links added.
--- NOTE | 2024-06-27 16:22 | CONS ---
NEPHROLOGY CONSULTATION NOTE Date/Time Patient Seen: Jun 27, 2024 1520 Reason for Consultation: Renal failure HISTORY OF PRESENT ILLNESS: This is a 49-year-old female with a past medical history of newly diagnosed HIV with AIDS. She presented to the emergency room with complaints of shortness of breath She was admitted under diagnosis of acute hypoxemic respiratory failure and pneumonia. She has had a prolonged hospital stay. She was seen in the ICU, intubated, sedated on mechanical ventilation. Currently on vasopressors to maintain blood pressure. 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 She is currently followed by Infectious Disease. She was noted to have elevated BUN/creatinine We has been consulted for renal failure. Renal function remains elevated Electrolytes are stable. Abdominal ultrasound showed no right hydronephrosis. She continues with a low urine output. She continues to be intubated and sedated No family at the bedside Condition is critical and guarded. REVIEW OF SYSTEMS: Difficult to obtain given status of the patient who remains intubated mechanically ventilated PAST MEDICAL HISTORY: HIV with AIDS PAST SURGICAL HISTORY: None reported PAST SOCIAL HISTORY: Denies use of alcohol, tobacco or illicit drugs FAMILY HISTORY: Noncontributory PHYSICAL EXAM: General: acutely ill, sedated, intubated, and mechanically ventilated HEENT: head is atraumatic, pupils equal and reactive, ET tube in place Neck: supple, no masses, no lymphadenopathy, no thyromegaly, no JVD Lungs: decreased breath sounds bilaterally, symmetrical chest movement Cardio: regular rate, S1 and S2 normal, no rub or gallop Abdomen: soft, non tender, no distension, no organomegaly Extremities: trace edema bilateral lower extremities, no cyanosis or clubbing Skin: no rashes or suspicious lesions Neuro: sedated MEDICATIONS: [ ] Current Medications Medications (Trade) Dose Ordered Sig/Julita Route PRN Reason Start Time Stop Time Status Last Admin Dose Admin Acetaminophen (TYLenol 650MG ELIXIR) 650 mg Q6H PRN PO MILD PAIN (1-3) 06/04/24 08:30 07/04/24 08:29 06/10/24 20:07 650 MG Acetaminophen (TYLenol 650MG SUPPOSITORY) 650 mg Q6H PRN RC MILD PAIN (1-3) 05/23/24 20:30 06/22/24 20:29 DC Acetylcysteine (MUComyst 20% 4ML) 400mg = 2ml [id number] IH 06/02/24 00:00 06/05/24 15:52 DC 06/05/24 11:35 200 MG Albuterol (DUOneb) 1 udvial [id number] IH 05/24/24 00:00 06/10/24 10:28 DC 06/10/24 06:45 1 UDVIAL Alprazolam (XANax 0.5MG) 0.5 mg Q8H PRN PO ANXIETY 06/10/24 13:30 07/10/24 13:29 06/25/24 06:30 0.5 MG Artificial Tears (Artificial Tears) 1 DROP OR AD Q8H OU 06/11/24 14:30 07/11/24 14:29 06/27/24 13:17 1 DROP Azithromycin 250 ml @ 250 mls/hr Q24H IVPB 05/24/24 17:00 05/24/24 14:41 DC Azithromycin 250 ml @ 250 mls/hr Q24H STAT IVPB 05/23/24 17:17 05/24/24 14:41 DC 05/23/24 17:45 250 MLS/HR Benzocaine (Cepacol Sore Throat Lozenge) 1 each Q4H PRN MM SORE THROAT 06/08/24 10:00 07/08/24 09:59 06/09/24 07:44 1 EACH Bisacodyl (DulcoLAX) 10 mg DAILY PRN RC CONSTIPATION 06/08/24 14:00 07/08/24 13:59 06/23/24 10:00 10 MG Cadexomer Iodine (Iodosorb Gel 40gm) 1 APPL TO RIGHT FAC... DAILY TP 06/19/24 09:00 07/18/24 08:59 06/27/24 08:23 1 APPL Cadexomer Iodine (Iodosorb Gel 40gm) 1 appl DAILY TP 06/18/24 09:00 06/19/24 07:23 DC 06/18/24 14:09 1 APPL Calcium Gluconate 1 gm/Sodium Chloride 100 ml @ 0 mls/hr PROTOCOL IV 06/27/24 10:30 07/27/24 10:29 06/27/24 11:40 100 MLS/HR Cefepime HCl (MAXipime 2 gm vial) 2 gm Q12H IVPB 05/24/24 15:00 06/03/24 14:59 DC 06/03/24 03:18 2 GM Ceftriaxone Sodium (ROCEphine 1G INJ) 1 gm Q24H IVPB 05/24/24 17:30 05/24/24 14:41 DC Chlorhexidine Gluconate (Peridex) 15 ml Q6H MM 06/07/24 17:00 06/11/24 14:27 DC 06/10/24 12:22 15 ML Chlorhexidine Gluconate (Peridex) 15 ml Q8H MM 06/11/24 14:30 06/25/24 14:29 DC 06/25/24 06:31 15 ML Cisatracurium Besylate (Nimbex) ONCE IVP 06/11/24 14:30 06/11/24 15:57 DC Cisatracurium Besylate 100 mg/ Sodium Chloride 100 ml @ 0 mls/hr PROTOCOL IV 06/11/24 23:30 06/23/24 16:20 DC 06/17/24 09:27 14.94 MLS/HR Cisatracurium Besylate 100 mg/ Sodium Chloride 100 ml @ 0 mls/hr PROTOCOL IV 06/23/24 16:30 06/23/24 18:43 DC 06/23/24 16:46 2.6 MLS/HR Clotrimazole (Mycelex) 10 mg TID MM 06/04/24 21:00 06/14/24 08:39 DC 06/13/24 20:28 10 MG Dexmedetomidine/ Sodium Chloride (PRECEdex 400MCG/ 100ML-NS) 400 mcg PROTOCOL IV 06/10/24 19:30 06/27/24 09:26 DC 06/25/24 05:08 400 MCG Dexmedetomidine/ Sodium Chloride (PRECEdex 400MCG/ 100ML-NS) 400 mcg PROTOCOL IV 06/27/24 09:30 07/27/24 09:29 06/27/24 14:51 400 MCG Diphenhydramine HCl (BENAdryl INJ) 25 mg Q6H PRN IV ITCHING 06/23/24 19:00 07/23/24 18:59 06/23/24 18:54 25 MG Dobutamine HCl/ Dextrose 250 ml @ 0 mls/hr PROTOCOL IV 06/12/24 16:30 06/12/24 16:53 DC Doxycycline Hyclate 250 ml @ 125 mls/hr Q12H IV 05/24/24 16:30 06/03/24 16:29 DC 06/03/24 04:23 125 MLS/HR Enoxaparin Sodium (Lovenox 80mg) 40 mg DAILY SQ 06/15/24 09:00 06/15/24 09:30 DC Enoxaparin Sodium (Lovenox 80mg) 80 mg BID SQ 06/11/24 09:00 06/14/24 23:28 DC 06/14/24 20:33 80 MG Enoxaparin Sodium (Lovenox) 40 mg DAILY SQ 06/15/24 09:30 07/15/24 09:29 06/27/24 08:19 40 MG Enoxaparin Sodium (Lovenox) 40 mg Q24H SQ 05/23/24 21:00 06/11/24 04:36 DC 06/10/24 20:07 40 MG Famotidine (Pepcid 20mg Vial) 20 mg DAILY IV 05/24/24 09:00 06/14/24 08:39 DC 06/13/24 08:15 20 MG Fentanyl Citrate 2500 mcg/Sodium Chloride 250 ml @ 0 mls/hr AD PRN IV TITRATE 06/17/24 05:30 06/17/24 05:18 DC Fentanyl/Sodium Chloride 250 ml @ 0.1 mls/hr PROTOCOL IV 06/12/24 00:00 06/17/24 00:00 DC 06/16/24 17:36 0.1 MLS/HR Fentanyl/Sodium Chloride 250 ml @ 0 mls/hr AD PRN IV ICU SEDATION 06/17/24 05:30 06/22/24 05:29 DC 06/21/24 19:51 30 MLS/HR Fentanyl/Sodium Chloride 250 ml @ 0 mls/hr PROTOCOL IV 06/22/24 15:00 06/27/24 14:59 DC 06/27/24 12:13 35 MLS/HR Fluconazole (DiFLUCan 100 mg TAB) 200 mg DAILY PO 06/05/24 09:00 07/05/24 08:59 06/27/24 08:21 200 MG Fluconazole/ Sodium Chloride 100 ml @ 100 mls/hr DAILY IV 05/26/24 09:00 05/27/24 15:57 DC 05/27/24 09:07 100 MLS/HR Furosemide (LASix 20MG VIAL) 20 mg DAILY IV 05/31/24 09:00 06/07/24 13:18 DC 06/03/24 08:38 20 MG Furosemide (LASix 20MG VIAL) 20 mg DAILY IV 06/17/24 10:00 06/17/24 12:13 DC 06/17/24 09:46 20 MG Furosemide (LASix 20MG VIAL) 20 mg Q12H IV 06/11/24 11:00 06/13/24 09:31 DC 06/12/24 21:54 20 MG Furosemide (LASix 20MG VIAL) 20 mg Q12H IV 06/17/24 22:00 06/18/24 10:01 DC 06/18/24 09:44 20 MG Furosemide (LASix 20MG VIAL) 20 mg Q8H IV 06/13/24 09:30 06/16/24 11:00 DC 06/16/24 08:44 20 MG Furosemide (LASix 20MG VIAL) 20 mg Q8H IV 06/19/24 17:00 06/26/24 11:05 DC 06/26/24 09:13 20 MG Ganciclovir Sodium 430 mg/ Sodium Chloride 100 ml @ 100 mls/hr Q12H IV 06/13/24 09:00 07/13/24 08:59 06/27/24 11:41 100 MLS/HR Ganciclovir Sodium 500 mg/ Sodium Chloride 100 ml @ 100 mls/hr Q12H IV 06/11/24 18:00 06/11/24 15:48 DC Ganciclovir Sodium (Ganciclovir Sodium) 500 mg Q12H IV 06/12/24 17:00 06/13/24 08:35 DC Guaifenesin/ Dextromethorphan (RobiTUSSin DM 200/20MG 10ML) 10 ml Q4H PRN PO COUGH 05/23/24 20:30 06/22/24 20:29 DC 06/10/24 20:07 10 ML Home Med (Home Medication) BIKTARVY (1 TAB) Q24H PO 06/24/24 17:00 07/24/24 16:59 06/26/24 16:27 1 EACH Hydralazine HCl (APRESOLine 20MG INJ) 10 mg Q4H PRN IV ADMINISTER FOR SBP > 160 06/26/24 16:30 07/26/24 16:29 06/26/24 16:27 10 MG Hydrocortisone Sodium Succinate (Solu-corTEF 100MG) 100 mg Q8H IV 06/11/24 05:00 06/14/24 08:39 DC 06/14/24 06:13 100 MG Hydroxyzine HCl (ATArax 25MG TAB) 25 mg TID PRN PO ITCHING 06/10/24 14:00 07/10/24 13:59 06/27/24 08:20 25 MG Insulin Human Regular (humuLIN R 100 UNIT/ML 3ML) INSULIN SLIDING SCAL... ACHS SQ 06/19/24 16:30 06/20/24 15:07 DC 06/20/24 12:30 5 UNIT Insulin Human Regular (humuLIN R 100 UNIT/ML 3ML) INSULIN SLIDING SCAL... Q6H6 SQ 06/20/24 18:00 07/19/24 16:29 06/27/24 11:55 3 UNIT Ipratropium [place] (AtrovENT UD) 0.5 MG [id number] IH 06/10/24 14:00 06/27/24 14:53 DC 06/27/24 14:01 0.5 MG Ipratropium [place] (AtrovENT UD) 0.5 MG [id number] PRN IH SHORTNESS OF BREATH 06/27/24 15:00 07/10/24 13:59 Lactated Ringer's (Lactated Ringers 1000ml) 500 ml ONCE IV 06/02/24 20:00 06/02/24 19:54 DC Levofloxacin/ Dextrose 100 ml @ 100 mls/hr Q24H IV 05/24/24 15:00 05/24/24 16:16 DC Magnesium Sulfate 50 ml @ 0 mls/hr PROTOCOL PRN IV hypomagnesemia 05/28/24 08:00 06/27/24 07:59 DC 06/11/24 05:26 50 MLS/HR Meropenem (Merrem 1gm) 1 gm Q8H IVPB 06/13/24 15:00 06/18/24 21:57 DC 06/18/24 15:34 1 GM Meropenem (Merrem 1gm) 1 gm Q8H IVPB 06/19/24 01:00 06/21/24 00:59 DC 06/20/24 16:50 1 GM Meropenem (Merrem) 1 gm Q8H IVPB 06/11/24 15:00 06/13/24 11:52 DC 06/13/24 08:14 1 GM Meropenem 1 gm/ Sodium Chloride 100 ml @ 33.333 mls/ hr Q8H IV 06/11/24 14:30 06/11/24 14:28 DC Methylprednisolone Sodium Succinate (Solu-medROL 40MG) 20 mg Q12H IVP 06/05/24 07:00 06/09/24 09:13 DC 06/09/24 07:25 20 MG Methylprednisolone Sodium Succinate (Solu-medROL 40MG) 40 mg Q12H IVP 05/28/24 18:00 05/29/24 16:45 DC 05/29/24 05:32 40 MG Methylprednisolone Sodium Succinate (Solu-medROL 40MG) 40 mg Q6H IVP 05/29/24 16:30 06/04/24 16:44 DC 06/04/24 11:13 40 MG Methylprednisolone Sodium Succinate (Solu-medROL 40MG) 40 mg Q6H IVP 06/04/24 18:00 06/05/24 00:24 DC 06/04/24 23:48 40 MG Methylprednisolone Sodium Succinate (Solu-medROL 40MG) 40 mg Q8H IVP 05/24/24 01:00 05/25/24 21:51 DC 05/25/24 17:28 40 MG Methylprednisolone Sodium Succinate (Solu-medROL 40MG) 60 mg Q6H IVP 05/25/24 22:00 05/28/24 02:25 DC 05/27/24 23:55 60 MG Methylprednisolone Sodium Succinate (Solu-medROL 40MG) 60 mg Q6H IVP 05/28/24 06:00 05/28/24 08:27 DC 05/28/24 06:47 60 MG Methylprednisolone Sodium Succinate (Solu-medROL 40MG) 60 mg Q6H IVP 06/11/24 02:30 06/11/24 04:23 DC 06/11/24 02:46 60 MG Methylprednisolone Sodium Succinate (Solu-medROL 40MG) 80 mg Q8H IVP 06/14/24 17:00 07/14/24 08:59 06/27/24 08:20 80 MG Methylprednisolone Sodium Succinate (Solu-medROL 125MG) 80 mg Q8H IVP 06/14/24 09:00 06/14/24 14:53 DC 06/14/24 08:48 80 MG Metoclopramide HCl (regLAN 10MG/ 10ML UD CUP) 5 mg TIDAC PO 06/22/24 07:30 07/22/24 07:29 06/27/24 11:04 5 MG Metronidazole/ Sodium Chloride (flaGYL) 500 mg Q8H IV 05/25/24 22:00 05/25/24 21:56 DC Midazolam HCl 50 ml @ 0 mls/hr AD PRN IV TITRATE 06/12/24 01:30 06/12/24 08:30 DC 06/12/24 02:30 10 MLS/HR Midazolam HCl 100 ml @ 0 mls/hr AD PRN IV TITRATE 06/12/24 09:00 07/12/24 01:29 06/27/24 14:50 10 MLS/HR Morphine Sulfate (morPHINE 4MG SYG) 4 mg Q4H PRN IM RESPIRATORY SYMPTOMS 06/11/24 03:30 06/14/24 23:33 DC 06/11/24 03:27 4 MG Norepinephrine 250 ml @ 0 mls/hr PROTOCOL IV 06/23/24 21:00 07/23/24 20:59 Ondansetron HCl (zoFRAN 4MG INJ) 4 mg Q6H PRN IV NAUSEA/VOMITING 05/23/24 20:30 06/22/24 20:29 DC Pantoprazole Sodium (PROTonix 40MG INJ) 40 mg BID IVP 06/12/24 21:00 07/12/24 20:59 06/27/24 08:18 40 MG Pharmacy Profile Note (Lace Assessment) 1 each AD MISC 06/17/24 16:30 06/17/24 16:27 DC Pharmacy Profile Note (Pharmacy Communication) 1 each ONCE MISC 06/11/24 14:30 06/11/24 15:53 DC Pharmacy Profile Note (Pharmacy Communication) 1 each ONCE MISC 06/11/24 20:30 06/11/24 20:14 DC Pharmacy Profile Note (Pharmacy Communication) 1 each ONCE MISC 06/12/24 17:00 06/12/24 17:07 DC Pharmacy Profile Note (Pharmacy Communication) 1 each ONCE MISC 06/24/24 13:00 06/24/24 12:43 DC Pharmacy Profile Note (Pharmacy Communication) 1 each ONCE MISC 06/23/24 20:30 06/23/24 20:32 DC Phenylephrine HCl 10 mg/Sodium Chloride 251 ml @ 0 mls/hr AD PRN IV DIRECTED 06/11/24 03:00 06/12/24 18:12 DC 06/12/24 14:10 47 MLS/HR Phenylephrine HCl 50 mg/Sodium Chloride 250 ml @ 0 mls/hr PROTOCOL PRN IV PROTOCOL 06/12/24 18:00 07/12/24 17:59 06/13/24 08:57 12.45 MLS/HR Polyethylene Glycol (MIRalax 3350 17 GM POWD.PACK) 17 gm DAILY PO 06/22/24 09:00 07/22/24 08:59 06/27/24 08:19 17 GM Potassium Chloride 100 ml @ 100 mls/hr AD PRN IV POTASSIUM PROTOCOL 05/28/24 08:00 06/27/24 07:59 DC Potassium Chloride (K-Dur/Klor-Con 20meq) 20 meq AD PRN PO POTASSIUM PROTOCOL 05/28/24 08:00 06/27/24 07:59 DC Potassium Chloride (KCl 10% Elixir 20meq/15ml) 20 meq AD PRN PO POTASSIUM PROTOCOL 05/28/24 08:00 06/27/24 07:59 DC Prednisone (deltaSONE/ oraSONE 20MG TAB) 20 mg DAILY PO 06/10/24 09:00 06/14/24 08:39 DC 06/13/24 08:15 20 MG Rocuronium [place] 100 mg/ Sodium Chloride 100 ml @ 0 mls/hr PROTOCOL IV 06/24/24 08:30 06/25/24 02:44 DC 06/25/24 01:00 0 MLS/HR Rocuronium [place] 200 mg/ Sodium Chloride 200 ml @ 0 mls/hr PROTOCOL IV 06/25/24 03:00 07/24/24 08:29 06/27/24 03:42 43 MLS/HR Rocuronium [place] (ZemuRON) 10 mg Q1H PRN IV RESP DISTRESS/VENT DISYNCHRONY 06/11/24 20:30 06/11/24 23:29 DC 06/11/24 20:33 10 MG Rocuronium [place] (ZemuRON) 50 mg Q4H PRN IV VENT DYSSYNCHRONY 06/17/24 16:30 06/23/24 16:19 DC 06/23/24 04:03 50 MG Sodium Chloride 500 ml @ 500 mls/hr Q1H IV 06/02/24 20:00 06/02/24 20:59 DC 06/02/24 21:34 500 MLS/HR Sodium Chloride 1,000 ml @ 0 mls/hr Q0M IV 06/26/24 19:00 07/26/24 18:59 Sodium Chloride 1,000 ml @ 75 mls/hr [id number] IV 06/07/24 13:30 06/10/24 17:02 DC 06/10/24 09:05 75 MLS/HR Sodium Chloride (Sodium Chloride) 1,000 mg BIDAC PO 06/07/24 16:30 06/09/24 07:28 DC 06/08/24 16:58 1,000 MG Sodium Chloride (Sodium Chloride) 1,000 mg BIDAC PO 06/09/24 07:30 06/12/24 16:35 DC 06/12/24 12:30 1,000 MG Sodium Chloride (Sodium Chloride) 1,000 mg Q12H PO 06/12/24 21:00 07/09/24 07:29 06/27/24 08:22 1,000 MG Sodium Zirconium Cyclosilicate (Lokelma) 5 gm DAILY10 PO 06/08/24 10:30 06/10/24 10:29 DC 06/08/24 10:50 5 GM Trimethoprim/ Sulfamethoxazole (BactRIM DS) 1 tab BID PO 05/26/24 21:00 05/29/24 16:18 DC 05/29/24 08:07 1 TAB Trimethoprim/ Sulfamethoxazole (BactRIM DS) 2 tab TID PO 05/29/24 16:30 06/05/24 20:59 DC 06/05/24 14:55 2 TAB Trimethoprim/ Sulfamethoxazole (BactRIM DS) 2 tab TID PO 06/06/24 09:30 06/11/24 21:54 DC 06/10/24 13:58 2 TAB Trimethoprim/ Sulfamethoxazole 160 mg/Dextrose 250 ml @ 333.333 mls/hr BID@0600,1800 IV 06/22/24 06:00 06/22/24 17:17 DC 06/22/24 06:25 333.333 MLS/HR Trimethoprim/ Sulfamethoxazole 160 mg/Dextrose 250 ml @ 333.333 mls/hr DAILY IV 06/23/24 09:00 07/02/24 05:59 06/27/24 13:16 333.333 MLS/HR Trimethoprim/ Sulfamethoxazole 320 mg/Dextrose 500 ml @ 333.333 mls/hr Q8H IV 06/19/24 00:30 06/21/24 21:30 DC 06/21/24 16:16 333.333 MLS/HR Trimethoprim/ Sulfamethoxazole 320 mg/Dextrose 500 ml @ 500 mls/hr Q8H IV 06/11/24 22:30 06/12/24 16:35 DC 06/12/24 06:39 500 MLS/HR Trimethoprim/ Sulfamethoxazole 320 mg/Dextrose 500 ml @ 500 mls/hr Q8H IV 06/12/24 18:00 06/13/24 11:13 DC 06/13/24 05:30 500 MLS/HR Trimethoprim/ Sulfamethoxazole 320 mg/Dextrose 500 ml @ 500 mls/hr Q8H IV 06/13/24 13:30 06/18/24 21:55 DC 06/18/24 14:08 500 MLS/HR Trimethoprim/ Sulfamethoxazole 320 mg/Dextrose 500 ml @ 500 mls/hr Q8H IV 06/18/24 11:59 06/19/24 00:56 DC 06/18/24 11:59 500 MLS/HR Valganciclovir (ValGANCIClovir HCL) 900 mg BID PO 06/11/24 21:00 06/13/24 08:37 DC Wound Care/ Dressing Products (Venelex Ointment) 1 VOLODYMYR AD TID TP 06/14/24 14:00 07/14/24 13:59 06/27/24 13:17 1 GM Vital Signs (last 8hr) Date Time Temp Pulse Resp B/P (MAP) Pulse Ox O2 Delivery O2 Flow Rate FiO2 06/27/24 14:45 67 34 108/54 (72) 91 06/27/24 14:34 71 100 06/27/24 14:30 68 34 116/58 (77) 91 06/27/24 14:15 68 34 114/57 (76) 90 06/27/24 14:05 73 34 06/27/24 14:00 68 34 87/42 (57) 89 06/27/24 13:46 71 34 126/62 (83) 93 131/77 (95) 06/27/24 13:30 72 34 139/69 (92) 94 06/27/24 13:15 74 34 138/68 (91) 94 06/27/24 13:00 76 34 142/70 (94) 95 06/27/24 12:45 72 34 122/61 (81) 95 06/27/24 12:30 71 34 90/41 (57) 95 06/27/24 12:15 71 34 104/50 (68) 95 06/27/24 12:04 93 Ventilator+ 100 06/27/24 12:00 100 06/27/24 12:00 98.2 06/27/24 12:00 71 34 114/57 (76) 94 06/27/24 11:46 70 34 101/50 (67) 94 123/67 (85) 06/27/24 11:45 70 34 96/47 (63) 94 06/27/24 11:30 77 34 184/94 (124) 95 06/27/24 11:20 76 34 151/76 (101) 93 162/95 (117) 06/27/24 11:19 78 100 06/27/24 11:15 73 34 166/93 (117) 90 06/27/24 11:00 72 34 121/65 (83) 92 06/27/24 10:46 74 34 123/68 (86) 93 130/79 (96) 06/27/24 10:45 73 34 123/66 (85) 92 06/27/24 10:30 76 34 142/76 (98) 92 06/27/24 10:15 111 34 06/27/24 10:15 78 34 154/81 (105) 92 06/27/24 10:00 79 34 141/74 (96) 90 06/27/24 09:45 84 35 147/77 (100) 91 06/27/24 09:30 98 34 91/54 (66) 87 06/27/24 09:15 103 34 110/62 (78) 88 06/27/24 09:00 108 34 109/63 (78) 88 2/13/25 08:59 114 100 06/27/24 08:45 110 34 120/68 (85) 89 06/27/24 08:30 113 34 139/76 (97) 91 06/27/24 08:15 113 34 161/84 (109) 91 DIAGNOSTICS / RADIOLOGY: REASON: Hypoxic respiratory failure ORDERING PHYSICIAN: MARGO LGOAN PROCEDURE: CXR1VW - CHEST 1VW CHEST 1VW HISTORY: Respiratory failure COMPARISON: 06/26/2024 FINDINGS: A frontal projection of the chest was obtained. There are bilateral pulmonary infiltrates suggestive of pulmonary vascular congestion with possible superimposed pneumonitis. The heart is borderline enlarged. All the lines and tubes are again seen in place. No evidence of aortic calcification is seen. IMPRESSION: 1. Bilateral pulmonary infiltrates are seen suggestive of pulmonary vascular congestion with possible superimposed pneumonitis. Mild interval worsening is seen. DICTATED BY: TAMARA NGUYEN MD DATE: 06/27/24 1146 REASON: TRANSAMINITS ORDERING PHYSICIAN: MARGO LOGAN PROCEDURE: ABDRUQLTD - US ABDOMINAL RUQ\LTD US ABDOMINAL RUQ\E\LTD HISTORY: Elevated liver enzymes COMPARISON: None TECHNIQUE: Right upper quadrant abdominal ultrasound study was performed. FINDINGS: Liver measures 16.2 cm. Sludge material is seen throughout the gallbladder. There is small ascites. The visualized portion of the pancreas is within normal limits. Liver is echogenic consistent with liver parenchymal disease. No gallstone is seen. Common duct measures 3 mm. No evidence of gallbladder wall thickening is seen. Right kidney measures 10.5 x 5.2 x 4.3 cm. No hydronephrosis is seen of the right kidney. IMPRESSION: 1. No gallstones or ductal dilatation is seen. Sludge material in the gallbladder. Ascites. Limited study due to patient's underlying condition. 2. No hydronephrosis is seen. DICTATED BY: TAMARA NGUYEN MD DATE: 06/26/24 7300 REASON: Elevated DDIMER ORDERING PHYSICIAN: KIANA MAGUIRE PROCEDURE: VENOUS FAY - US VENOUS DOPPLER BILATERAL US VENOUS DOPPLER BILATERAL REASON: Elevated DDIMER COMPARISON: None Technique: Bilateral venous doppler ultrasound was performed with spectral analysis and color flow imaging technique. FINDINGS: There is a normal appearance of the common femoral, deep femoral, the profunda femoris and popliteal veins. Proximal calf veins appear normal as well. There is normal response to compression and augmentation. There is no evidence of deep venous thrombosis. IMPRESSION: Normal bilateral lower extremity venous Doppler ultrasound. DICTATED BY: LALO IBANEZ MD DATE: 06/11/24911 REASON: assess EF ORDERING PHYSICIAN: MARGO LOGAN PROCEDURE: ECHO CMP - ECHO 2-D COMPLETE APPROVED REPORT EXAM: Two-dimensional and M-mode echocardiogram with Doppler and color Doppler. INDICATION ICD: Assess left ventricular function. 2D Dimensions RVDd 3.9 cm LVEF(%) 69.9 (>50%) LVED Vol(simp.) 97.0 mL IVSd 1.3 (0.7-1.1cm) FS(%) 39 % LVES Vol(simp.) 44.0 mL LVDd 4.1 (3.8-5.6cm) LA (2D) 2.9 (1.6-4.0cm) LVEF(%, simp.) 55 % PWd 1.3 (0.7-1.1cm) Ao Root(2D) 2.7 (2.0-3.7cm) LA ESV INDEX (4CH) 18.80 mL/m2 IVSs 1.7 cm LVOT diam 2.0 (1.8-2.4cm) LA ESV INDEX (2CH) 26.30 mL/m2 LVDs 2.5 (2.5-4.0cm) IVC diam 1.4 cm LA ESV INDEX (BP) 22.70 mL/m2 PWs 1.6 cm M-Mode Dimensions EPSS 0.3 cm LA (MM) 2.6 (1.6-4.0cm) Ao Root(MM) 2.7 (2.0-3.7cm) Aortic Valve AoV VTI 0.2 m Ao Mean GR 4.0 mmHg LVOT VTI 0.20 m SANDRA (VMAX) 2.8 cm2 SANDRA (VTI) 2.8 cm2 Mitral Valve MV E Vmax 55.8 cm/s DECEL Time 236 ms MV A Vmax 64.7 cm/s P 1/2 T 42 ms E/A ratio 0.9 MVA (PHT) 5.3 cm2 TDI E/E' Medial 10.5 E/E' Lateral 5.8 Medial E' Peak V 5.30 cm/s Lateral E' Peak V 9.70 cm/s Tricuspid Valve RAP (EST) 3 mmHg RVSP 3.0 mmHg Left Ventricle The left ventricle is normal size. Mild concentric left ventricular hypertrophy. The LVEF is > 55%. The left ventricular diastolic function is normal. Right Ventricle The right ventricle is normal size. The right ventricular systolic function is normal. Atria The left atrium size is normal. The right atrium size is normal. Aortic Valve The aortic valve is normal in structure. No aortic regurgitation is present. There is no aortic valvular stenosis. Mitral Valve The mitral valve is normal in structure. There is no mitral valve regurgitation noted. There is no mitral valve stenosis. Tricuspid Valve The tricuspid valve is normal in structure. There is no tricuspid valve regurgitation noted. Pulmonic Valve Pulmonic valve is not well visualized. There is no pulmonic valvular regurgitation. Great Vessels The aortic root is normal in size. The IVC is normal in size and collapses >50% with inspiration. Pericardium There is no pericardial effusion. Other Information Quality : Technically difficult due to body habitus Rhythm : NSR Conclusion The LVEF is > 55%. Mild concentric left ventricular hypertrophy. The left ventricular diastolic function is normal. DICTATED BY: FERMÍN GALLOWAY DO DATE: 05/30/24 0853 REASON: suspected PE ORDERING PHYSICIAN: DAYRON RUBIN NP PROCEDURE: [facility] PE - CT CHEST PE PROTOCOL WWO CONT CT CHEST PE PROTOCOL WWO CONT HISTORY: Suspected pulmonary embolism COMPARISON: 05/21/2019 TECHNIQUE: CT angiography of the chest was performed. The study was performed using angiographic technique with maximum intensity projection reconstruction images. Patient was given 100 cc of Omnipaque through intravenous route. FINDINGS: No CT evidence of filling defect is seen to suggest pulmonary embolus. No CT evidence of aortic dissection is seen. There are bilateral pulmonary infiltrates with subsegmental atelectasis. Fatty changes of the liver are noted. No CT evidence of pleural effusion or pericardial effusion is seen. The heart is enlarged. No evidence of adrenal mass is seen. Degenerative changes of the spine are noted. IMPRESSION: 1. No CT evidence of acute pulmonary embolus is seen. Bilateral pulmonary infiltrates with subsegmental atelectasis. Fatty changes of liver are noted. CT was performed with one or more following dose reduction techniques: automated exposure control, adjustment of the mA and kv according to patient's size, or use of a iterative reconstruction technique. DICTATED BY: TAMARA NGUYEN MD DATE: 05/24/24 180 REASON: sob ORDERING PHYSICIAN: SHANTEL VICTORIA MD PROCEDURE: CXR1VW - CHEST 1VW PORTABLE CHEST RADIOGRAPH INDICATION: sob COMPARISON: 05/21/2024 CTA chest FINDINGS: Heart size is normal. The pulmonary vascularity and paul appear normal. Left lower lung greater than right lung base opacities in the right hemidiaphragm is elevated. No significant pleural effusion noted. No pneumothorax detected. IMPRESSION: Left lower lung pneumonia and minimal right lung base atelectasis. DICTATED BY: SUSAN RAY MD DATE: 05/23/24 1729 LABORATORY: [ ] Hematology Labs: Test 06/27/24 03:06 06/26/24 04:18 Range/Units White Blood Count 9.9 # 4.8-10.8 K/uL Red Blood Count 2.82 L 4.00-5.50 MIL/uL Hemoglobin 9.5 L 12.0-16.0 g/dL Hematocrit 29.6 #L 36-48 % Mean Corpuscular Volume 105.0 H 79-99 fL Mean Corpuscular Hemoglobin 33.7 H 27.0-33.0 pg Mean Corpuscular Hemoglobin Concent 32.1 32.0-36.0 g/dL Red Cell Distribution Width 14.0 11.0-15.5 % Platelet Count 132 # 130-400 K/uL Mean Platelet Volume 10.4 7.5-10.5 fL Immature Granulocyte % (Auto) 1.3 H 0-1 % Neutrophils (%) (Auto) 95.1 H 40.0-77.0 % Lymphocytes (%) (Auto) 1.5 L 21.0-51.0 % Monocytes (%) (Auto) 2.1 L 3.0-13.0 % Eosinophils (%) (Auto) 0.0 0.0-8.0 % Basophils (%) (Auto) 0.0 0.0-5.0 % Neutrophils # (Auto) 9.5 H 1.8-7.7 K/uL Lymphocytes # (Auto) 0.2 L 1.0-4.8 K/uL Monocytes # (Auto) 0.2 0.1-1.0 K/uL Eosinophils # (Auto) 0.00 0.00-0.70 K/uL Basophils # (Auto) 0.00 0.00-0.20 K/uL Absolute Immature Granulocyte (auto 0.13 0-1 K/uL Nucleated Red Blood Cells 0.2 H 0.0-0.19 % Red Blood Cell Morphology See comments Chemistry Labs: Test 06/27/24 11:11 06/27/24 03:06 06/26/24 18:49 Range/Units Whole Blood Glucose 218 H 70-110 MG/DL Sodium Level 139 136-145 mmol/L Potassium Level 5.3 H 3.5-5.1 mmol/L Chloride Level 101 101-111 mmol/L Carbon Dioxide Level 39 H 21-32 mmol/L Blood Urea Nitrogen 75 #*H 7-18 mg/dL Creatinine 1.6 H 0.5-1.0 mg/dL Glomerular Filtration Rate Calc 39 >90 mL/min Random Glucose 274 #H 70-105 mg/dL Total Calcium 7.3 L 8.5-10.1 mg/dL Total Bilirubin 0.5 # 0.2-1.0 mg/dL Aspartate Amino Transf (AST/SGOT) 92 H 10-37 U/L Alanine Aminotransferase (ALT/SGPT) 300 #H 12-78 U/L Alkaline Phosphatase 166 H 50-136 U/L Total Protein 4.1 L 6.0-8.3 g/dL Albumin 1.4 L 3.5-5.0 g/dL Lactic Acid Level 0.7 L 0.8-2.5 mmol/L Magnesium Level 1.70 L 1.80-2.40 mg/dL ASSESSMENT: Acute renal failure patient has sepsis Anemia Hyperkalemia Elevated LFTs Acute hypoxic hypercapnic respiratory failure on mechanical ventilator support via ETT Severe Adult Respiratory Distress Syndrome Bilateral lower lobe pneumonia with positive MRSA and confirmed PCP 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 We have reviewed external records in detail Please renally adjust ganciclovir and antibiotics Order [id number] g IV q.8 hours x3 doses Start thiamine 100 mg IV daily Use bladder scanner to rule out urinary retention, may flush Souza p.r.n. Code status should be addressed Obtain UA, urine electrolytes, urine creatinine, urine osmolality and complete renal ultrasound Require close monitoring of renal function and electrolytes Order CBC, CMP, uric acid, TSH and electrolytes in am IV pressors as needed Continue mechanical ventilation and sedation. Monitor blood pressure adjust medication doses as needed Avoid hypotensive episodes May use Dilaudid 0.5 mg IV every 6 hours as needed for severe pain Monitor blood sugars Strict intake, output, and daily weight should be monitored Please renally adjust medications Avoid nephrotoxic and nonsteroidal drugs Avoid contrast if possible Will continue to monitor renal function, anemia, electrolytes Treatment plan discussed with patient Questions were answered We have discussed with the other team physicians in detail about the care plan We will continue to monitor the patient closely Thank you for allowing us to participate in the care of this patient Total critical care time spent with patient, nursing staff, critical care team over 35 minutes ATTESTATION BY PHYSICIAN I have seen and examined the patient. I reviewed the documentation, medical decision making, and treatment plan as noted by the mid-level provider above. I agree with the findings and plan of care. LEON KOO MD, [facility] Jun 27, 2024 16:22 LEON KOO MD Jun 27, 2024 19:55
--- NOTE | 2024-06-27 17:03 | NUR ---
0ML BLADDER SCAN ORDERED BY .
[2024-06-27] MEDS ORDERED: PHARMACY COMMUNICATION 1 EACH EACH MISC SCH (18:00)
[2024-06-27 18:06] LABS: CREATININE,URINE RANDOM 61.07 mg/dL (30-135)
[2024-06-27 18:57] LABS: POTASSIUM 4.9 mmol/L (3.5-5.1)
[2024-06-27] MEDS: [UNRECOGNIZED DRUG - OTHER] IV SCH (19:43)
[2024-06-27] MEDS: GANCICLOVIR SODIUM IV SCH (19:43)
[2024-06-27] MEDS: ALBUMIN (HUMAN) 25% 50 ML IV SCH (19:57)
[2024-06-27] MEDS ORDERED: FENTanyl CITRate PF 0.05 MG/ML 2,500 MCG in 0.9% NACL 250ML 200 ML IV PRN (20:00)
[2024-06-27] MEDS: FENTanyl 2500MCG+NS 250ML 250 ML IV SCH (20:18)
[2024-06-27] MEDS: INSULIN GLARgine 100 UNITS/ML 10 ML VIAL SQ SCH (20:19)
[2024-06-27 22:34] LABS: ABG BASE EXCESS 6.6 mmol/L (-2.0-3.0); ABG HCO3 33.2 mmol/L (21.0-28.0); ABG OXYGEN SATURATION 92.2 % (94.0-98.0); ABG PCO2 59 mmHg (32-45); ABG PH 7.367 (7.350-7.450); CARBON MONOXIDE 0.7 % (0.5-1.5); HHb 7.7; PO2, ARTERIAL BG 70.1 mmHg (83.0-108.0); VENT MODE, BG PC 35 (ROOM AIR)
[2024-06-28] VITALS (61 sets, daily range): BP systolic 89–188; BP diastolic 49–92; PULSE 52–95; RESP 34–36; TEMP 96.1–97.8; O2SAT 91–99
[2024-06-28 04:13] LABS: HEMATOCRIT 22.4 % (36-48); IMMATURE GRANULOCYTE ABSOLUTE 0.02 K/uL (0-1); LYMPHOCYTES # (AUTO) 0.2 K/uL (1.0-4.8); LYMPHOCYTES % (AUTO) 4.1 % (21.0-51.0); MEAN CORPUSCULAR HEMOGLOBIN 33.6 pg (27.0-33.0); MEAN CORPUSCULAR HGB CONC 33.9 g/dL (32.0-36.0); MEAN CORPUSCULAR VOLUME 99.1 fL (79-99); MONOCYTES # (AUTO) 0.1 K/uL (0.1-1.0); MONOCYTES % (AUTO) 1.7 % (3.0-13.0); NEUTROPHILS # (AUTO) 3.9 K/uL (1.8-7.7); NEUTROPHILS % (AUTO) 93.7 % (40.0-77.0); PLATELET COUNT (AUTO) 78 K/uL (130-400); RED BLOOD CELL COUNT(AUTO) 2.26 MIL/uL (4.00-5.50); RED CELL DISTRIBUTION WIDTH 14.3 % (11.0-15.5); WHITE BLOOD COUNT (AUTO) 4.2 K/uL (4.8-10.8)
[2024-06-28 04:43] LABS: ALBUMIN 1.7 g/dL (3.5-5.0); BILIRUBIN,TOTAL 0.3 mg/dL (0.2-1.0); CREATININE 2.2 mg/dL (0.5-1.0); MAGNESIUM 2.1 mg/dL (1.80-2.40); PHOSPHORUS 5.7 mg/dL (2.5-4.9); POTASSIUM 4.7 mmol/L (3.5-5.1); THYROID STIMULATING HORMONE 0.18 uIU/mL (0.36-3.74); TOTAL PROTEIN, SERUM 3.9 g/dL (6.0-8.3); URIC ACID 5.3 mg/dL (2.6-7.2)
--- NOTE | 2024-06-28 05:02 | PN ---
INFECTIOUS DISEASE FOLLOWUP NOTE DATE OF SERVICE: 06/27/2024 SUBJECTIVE: The patient is seen and examined at bedside today, remained intubated and sedated on ventilatory support. The patient is on vasopressor. No joint swelling or redness. No bleeding tendency. The patient remained on antiretroviral therapy. No family at the bedside at this time. The patient's FiO2 remained at 100% with PEEP of 8. PHYSICAL EXAMINATION: VITAL SIGNS: Temperature today 99.5. EYES: No icterus. Pupils equal and reactive. HENT: Orally intubated, on ventilatory support. NECK: Supple. No JVD or thyromegaly. LUNGS: Crackles bilaterally, no rhonchi. CARDIOVASCULAR: S1, S2 regular. No murmur heard. ABDOMEN: Soft. Bowel sound is present. Obese. CENTRAL NERVOUS SYSTEM: The patient is intubated and sedated. SKIN: No rashes, no itchiness. MUSCULOSKELETAL: No joint swelling, erythema or tenderness. ASSESSMENT: A 49-year-old female with multiple problems which include: * Hypoxic respiratory failure. * Sepsis. * MRSA pneumonia. * PCP pneumonia. * HIV/AIDS. * Right gluteal ulcer. * CMV infection with oral candidiasis. PLAN: * Continue critical support. * Continue Biktarvy. * Monitor electrolytes. * Continue NG tube feeding. * Continue ventilatory support. * Continue vasopressor. * Monitor renal function. * The patient will follow up closely. TID: [id number] RECEIPT: [id number]
[2024-06-28] MEDS: THIAMINE HCL 100 MG/ML 2ML VIAL IVP SCH (09:38)
--- NOTE | 2024-06-28 10:47 | PN ---
[facility] PROGRESS NOTE Date Patient Seen: Jun 28, 2024 Time of Visit: 10:46 Supervising Physician: Ramiro Kohler MD Primary Care Physician: Stu Foss MD Outpatient Specialists: Inpatient Consults: Pulmonology PROBLEM LIST: - Acute hypoxic hypercapnic respiratory failure on mechanical ventilator support via ETT - Severe Adult Respiratory Distress Syndrome -MODS (respiratory, Liver , and kidneys) -RADHA Hyperkalemia -Transaminitis - Bilateral lower lobe pneumonia with positive MRSA and confirmed PCP - Disseminated herpes simplex viral infection - Newly diagnoses HIV with AIDS - Morbid obesity, BMI 31.4 - Severe protein calorie malnutrition - Former tobacco use disorder INTERVAL HISTORY: 06/27/24- The patient continues critically ill. Continues on mechanical ventilation sedated on fentanyl 300 micrograms/hour, Versed 10 milligrams/hour and rocuronium per per lysing agent. She has been hemodynamically stable not on any pressors current heart rate in the 60s respiratory rate 34 on the vent saturating 91% on FiO2 100% peep of 8. Vent mode pressure control of 35, respiratory rate of 34. ABGs improved this morning pH of 7.35 pCO2 of 63 PO2 of 65.4 and bicarb of 34.6. Kidneys are worsening with poor urine output of 175 mL in the last 24 hours. Nephrology has been consulted and pharmacy has been co nsulted for adjustment of antibiotics to creatinine clearance. Cr of 1.6 gfr of 39 and BUN of 75. Potassium of 5.3 and corrected with lokelma x1. WBC WBCs have normalized 9.9 H&H ishave normal 9.5/29.6i platelet count is 132zed, hh s on CBC there is improvementt withabl white count of 9.9 H&H 9.5e, platelet count is normal. Chest XR with increased pulmonary vascular congestion. 06/28/24-patient critically ill analysis. Continues on mechanical ventilation sedated on fentanyl, Versed and generalized with rocuronium drip 0 peep of per ventilation synchrony sedation. Patient has been hemodynamically stable but this morning had to be placed back on Levophed at 0.01 micrograms/kilogram per minute with. Blood pressure 127/73, HR 76, RR 36 afebrile with T low of 96.8, due due to hypothermia will send pancultures. Urine culture output 25ml in 24 hours, [employer] following pt. + 3.6 L. chest XR with worsening viviana vascular congestion. and pulmonary infiltrates. WBC's 4.2, HH 7.6 over 22.4 likely decreased HH from hypervolemia. On chemistry Carbon dioxide 39, BUN 94, cr 2.2 GFR 27. Vent settings adjusted Pressure control Max IP 30 RR 36, FIO2 of 90% peep of 5. Continue to adjust per ABG.. REVIEW OF SYSTEMS: Unable to obtain ROS from patient due to patient's medical condition. PHYSICAL EXAM: GENERAL: Sedated and paralyzed, intubated currently SUPINE HEENT: Sclera non icteric, dry scabs and sores to mucosa, sore to rt cheek NECK: short neck no JVD, trachea midline LUNGS: Cleared bilaterally lobes no wheezing HEART: Regular rate and rhythm. Normal S1 and S2, without murmurs ABD: Abdomen soft, nontender. Bowel sounds present EXT: No clubbing cyanosis or edema, sore to sacral area, NEURO: Intubated sedated and paralyzed. Vital Signs (last 8hr) Date Time Temp Pulse Resp B/P (MAP) Pulse Ox O2 Delivery O2 Flow Rate FiO2 06/28/24 09:05 68 100 06/28/24 07:56 96.8 06/28/24 07:11 74 100 06/28/24 06:45 96.8 73 36 111/59 (76) 97 06/28/24 04:16 96.8 06/28/24 04:00 91 Ventilator+ 100 06/28/24 04:00 100 06/28/24 03:00 68 36 96/49 (65) 93 06/28/24 02:55 70 100 LABS: Hematology Labs: Test 06/28/24 04:02 Range/Units White Blood Count 4.2 L 4.8-10.8 K/uL Red Blood Count 2.26 L 4.00-5.50 MIL/uL Hemoglobin 7.6 L 12.0-16.0 g/dL Hematocrit 22.4 #L 36-48 % Mean Corpuscular Volume 99.1 H 79-99 fL Mean Corpuscular Hemoglobin 33.6 H 27.0-33.0 pg Mean Corpuscular Hemoglobin Concent 33.9 32.0-36.0 g/dL Red Cell Distribution Width 14.3 11.0-15.5 % Platelet Count 78 #L 130-400 K/uL Mean Platelet Volume 10.5 7.5-10.5 fL Immature Granulocyte % (Auto) 0.5 0-1 % Neutrophils (%) (Auto) 93.7 H 40.0-77.0 % Lymphocytes (%) (Auto) 4.1 L 21.0-51.0 % Monocytes (%) (Auto) 1.7 L 3.0-13.0 % Eosinophils (%) (Auto) 0.0 0.0-8.0 % Basophils (%) (Auto) 0.0 0.0-5.0 % Neutrophils # (Auto) 3.9 1.8-7.7 K/uL Lymphocytes # (Auto) 0.2 L 1.0-4.8 K/uL Monocytes # (Auto) 0.1 0.1-1.0 K/uL Eosinophils # (Auto) 0.00 0.00-0.70 K/uL Basophils # (Auto) 0.00 0.00-0.20 K/uL Absolute Immature Granulocyte (auto 0.02 0-1 K/uL Nucleated Red Blood Cells 0.0 0.0-0.19 % Chemistry Labs: Test 06/28/24 06:06 06/28/24 04:02 06/26/24 18:49 Range/Units Whole Blood Glucose 197 H 70-110 MG/DL Sodium Level 140 136-145 mmol/L Potassium Level 4.7 3.5-5.1 mmol/L Chloride Level 100 L 101-111 mmol/L Carbon Dioxide Level 39 H 21-32 mmol/L Blood Urea Nitrogen 94 *H 7-18 mg/dL Creatinine 2.2 H 0.5-1.0 mg/dL Glomerular Filtration Rate Calc 27 >90 mL/min Random Glucose 193 H 70-105 mg/dL Uric Acid 5.3 2.6-7.2 mg/dL Total Calcium 7.2 L 8.5-10.1 mg/dL Phosphorus Level 5.7 H 2.5-4.9 mg/dL Magnesium Level 2.10 1.80-2.40 mg/dL Total Bilirubin 0.3 0.2-1.0 mg/dL Aspartate Amino Transf (AST/SGOT) 50 H 10-37 U/L Alanine Aminotransferase (ALT/SGPT) 156 H 12-78 U/L Alkaline Phosphatase 114 50-136 U/L Total Protein 3.9 L 6.0-8.3 g/dL Albumin 1.7 L 3.5-5.0 g/dL Thyroid Stimulating Hormone (TSH) 0.18 #L 0.36-3.74 uIU/mL Lactic Acid Level 0.7 L 0.8-2.5 mmol/L DIAGNOSTICS / RADIOLOGY RESULTS: [ ]Signed PATIENT: RIO OSORIO MR#: [id number] : 1975 SEX: F AGE: 49 LOCATION: [facility] ORDER 2300 STATUS: ADM IN REPORT#: [id number] SERVICE 0600 REASON: Hypoxic respiratory failure ORDERING PHYSICIAN: MARGO LOGAN PROCEDURE: CXR1VW - CHEST 1VW CHEST 1VW HISTORY: Hypoxic respiratory failure COMPARISON: 06/27/2024 FINDINGS: A frontal projection of the chest was obtained. There are bilateral pulmonary infiltrates suggestive of pulmonary vascular congestion with possible superimposed pneumonitis. The heart is borderline enlarged. All the lines and tubes are again seen in place. No evidence of aortic calcification is seen. IMPRESSION: 1. Bilateral pulmonary infiltrates are seen suggestive of pulmonary vascular congestion with possible superimposed pneumonitis. DICTATED BY: TAMARA NGUYEN MD DATE: 06/28/24 125 ELECTRONICALLY SIGNED BY: TAMARA NGUYEN MD DATE: 06/28/24 125 PLAN Continue sedation with fentanyl, versed continue rocuronium drip to help with ventilator synchrony cessation. manage vent per abg maintain plateu pressure of < 30 as much possible Continue steroids Follow nephrology recommendations. pharmacy to adjust Bactrim and antiviral to Cr Clearance. Continue Atrovent q.4 hours. ABX per ID Panculture Son is POA NEURO: Minimize central acting medications as possible. Fall Precautions. Well lighted room through the day and minimize interruptions through the night to prevent acute delirium. PULMONARY: Supplemental 02 as needed Titrate Fio2 to keep Spo2 > or = 90% DuoNebs and CPT as needed IS hourly while awake for pulmonary hygiene Out of bed to chair as tolerated Ventilator settings: Assist-control pressure control, pressure control of 32, respiratory rate 34, FiO2 100% and PEEP of eight. CARDIOVASCULAR: Follow hemodynamics. Titrate vasopressor to keep MAP >65 or systolic blood pressure >95mmHg Telemetry LINES: CVC RT IJ Arterial line ET tube' FC OG tube GI & NUTRITION: Continue nutritional support Aspirations precautions Prokinetic agents and laxatives as needed KIDNEYS & ELECTROLYTES: Strict monitoring of intake and output Daily weights Avoid nephrotoxic agents Monitor electrolytes and replace as needed Goal urine output of 30mL/hr or 0.5mL/kg/hr ENDOCRINE: Maintain blood glucose between 100-180 at all times. Insulin sliding scale for blood glucose management INFECTIOUS DISEASE: Trend temperature. Clarke-culture if febrile. Sputum culture from 05/23/24 positive for MRSA, Betty albicans Pneumocystis carinii antigen positive Panculture: 06/02/24 Blood cultures Urine cultures Respiratory culture Antibiotics: Bactrim DS Fluconazole Valganciclovir has been supplied Biktarvy by [facility]. HEMATOLOGY & COAGULATION: Monitor H&H. Keep Hgb > 7 Transfuse 1 unit of PRBC for Hgb < 7 Transfuse 1 pack of platelets of platelets < 20, 000 Watch for any signs and symptoms of bleeding SKIN: Pressure ulcer prevention per facility protocol Rehab: PT/OT Prophylaxis: GI: Pepcid DVT: Heparin Code Status: Full Resuscitation Disposition: ICU Other: Critical care time I personally spent 45 minutes of critical care time in treatment of this patient. This includes patient management, time at bedside, time reviewing tests, labs, appropriate images and studies, documentation, and patient care city wellness coordinator rdination. This time excludes separately billable procedures. MARGO LOGAN Jun 28, 2024 10:47
--- NOTE | 2024-06-28 11:18 | PN ---
[facility] PROGRESS NOTE Date of Service: Jun 28, 2024 Time of Service: 11:13 SUBJECTIVE: [ ] Ms. Abdullahi is a 49-year-old female that was seen and examined today on 05/23/2024. Patient is a good historian and personal health. Patient's son Dagoberto Salcido is at bedside. Patient states that she came to the emergency department with a chief complaint of shortness of breath. Onset was two weeks ago. Location is to lungs. Duration is on and off. Character is described as "easily running out of air." Initially shortness and breath was only aggravated with climbing one or two flights of stairs but symptoms have progressively worsened and patient becomes short of breath even standing or walking short distances. There was no alleviating factors however previously symptoms were being controlled with daily morning albuterol nebulizer treatments. Patient denies any associated chest pain or dizziness. Patient reports an episode of COVID in December 2023. emergency department CBC unremarkable, chemistry unremarkable, urinalysis unremarkable, influenza screen negative, COVID negative, blood gas shows PO2 less than 45. Chest x-ray shows left lower lung pneumonia and minimal right lung base atelectasis. Upon arrival to the emergency department patient was placed on a BiPAP due to respiratory distress. 05/24/2024-patient was seen and examined at the bedside, still on BiPAP. Patient is able to speak, and says she feels much better than before. Patient says after COVID in December she developed severe bronchitis and she was on Solu-Medrol and albuterol, which did not help her much and later she had high fevers and shortness of breath which is when she came to the ED.Vitals afebrile pulse 76, RR 38 tachypneic , blood pressure 115/68, pulse oxygen 99 on BiPAP flow of 60. On ABG pH 7.47, pCO2 29, PO2 109.4, oxygen saturation 98.3. [id number] potassium 4.1 BUN15 creatinine 0.5 GFR 114. We will closely monitor the patient. Funeral Ar[employer]anger consult noted waiting on the recommendation 05/25/24 patient was seen and examined and case discussed with RN and family by the bedside. She was breathing better today. She has been on BiPAP all night but now he was on 100% non-rebreather with further efforts to continue to wean the oxygen requirements down. 05/26/24 patient was seen and examined and case discussed with the RN. No acute events noted overnight. Appreciate pulmonology and ID input continue IV antibiotics and fluconazole. 05/27/24 patient is seen and examined at bedside, acute events overnight, case discussed with the RN, BP 131/64, afebrile, saturating 96-97% via Ventimask, FiO2 40%. The patient admits cough productive of clear phlegm. Serology tests reviewed, HIV preliminary positive, discussed with the patient. 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 We will continue the patient on IV antibiotics, continue fluconazole, continue to follow Pulmonary and ID input and recommendations. After provided in the preliminary results of HIV test, she denies any suicidal or homicidal ideations. 05/28 patient has been seen and examined, no acute events overnight, case discuss ed with the RN, during my visit patient is sitting comfortably in the chair, hemodynamically stable, off Ventimask, currently on 10 L via nasal cannula, saturating 98%, tolerated BiPAP overnight. she feels better, less shortness a breath, still admits cough productive of yellow phlegm. No chest pain. Getting IV antibiotics during my visit. HIV P24 antigen, nonreactive. We will continue to follow Pulmonary and Infectious Disease input and recommendations. 05/29 patient has been seen and examined, no acute events overnight, case discussed with the RN, during my visit patient is sitting comfortably in the chair, hemodynamically stable, remains on 10 L via nasal cannula, saturating 98%, still admits cough productive of yellow phlegm. No chest pain. Getting IV antibiotics during my visit. HIV P24 antigen, nonreactive. Pending CD4 cell count. We will continue to follow Pulmonary and Infectious Disease input and recommendations. 05/30 the patient has been seen and examined, no acute events overnight, BP 11 4/66, during my visit she is on Ventimask, saturating 95%, FiO2 60%. Without the Ventimask the patient desaturates to the low 70s. Patient tolerating BiPAP during the night. Still admits cough productive of thick yellow phlegm, no chest pain. Results of CD4 cell count reviewed, discussed with the patient. We will continue broad-spectrum IV antibiotics. Continue to follow Pulmonary and Infectious Disease input and recommendations. 05/31 the patient has been seen and examined, upgraded to the ICU, during my visit she is sitting in the chair, BP 113/72, heart rate of 109, she is on Oxymizer, 30 L, FiO2 100%. She is alert oriented x3, still admits cough productive of thick yellow phlegm, no chest pain. Hemoglobin 12.9, hematocrit 36.6, WBC 14.6. ABG with pH 7.4, pCO2 40, PO2. Chest x-ray shows left lower lobe infiltrate consistent with pneumonia. She is getting IV antibiotics during my visit. Patient will remain in the ICU, continue to follow critical Care as well as infectious disease input and recommendations. 06/01 patient is seen and examined, sitting comfortable in chair, awake, following commands, remains on high-flow oxygen, FiO2 70%, 30 L, BP 117/67, heart rate of 78, respiratory rate of 30-36, saturating 100%, CBC with a hemoglobin 13.6, hematocrit 38.9, WBC 12.4. Platelet count of 341. Chest x-ray showing persistent left lung infiltrate, cardiac size and mediastinum unremarkable. The bony structures are within the normal limits. Patient getting IV antibiotics during my visit. Patient to continue with the high-dose steroids. Serology test positive for Pneumocystis sandra. Patient on Bactrim two tablets p.o. t.i.d.. Continue also doxycycline and cefepime IV. Continue to follow infectious disease input and recommendation. Continue to follow Pulmonary input and recommendations. 06/02 patient is seen and examined at bedside, currently in prone position, alert oriented x3. CPT started last night, she has started having more loose phlegm expectorated. BP 114/74, tachycardic 114, saturating 95%, high-flow nasal cannula, 30 L, FiO2 80%. CBC with a hemoglobin 16.9, hemoglobin 14 0, hematocrit 39.8, platelet count 347. Chest x-ray shows persistent left lung infiltrate. 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 Serology test for toxoplasma currently pending. Patient on IV antibiotics as well as high-dose steroids. Continue to follow infectious Disease and Pulmonary input and recommendations. 06/03 patient seen at bedside, no acute events overnight. She continues with respiratory distress, with increasing oxygen requirements. Critical Care has discussed a possible need for intubation if she does not improve. She has been started on steroids due to underlying PCP pneumonia. WBC improved from 16.9 down to 13.5, sodium stable at 132, same as yesterday, lactic acid downtrending from 4.1 down to 3.2, remainder of her labs are relatively unremarkable. 06/04 patient seen at bedside, no acute events overnight. She remains on high- flow nasal cannula, mildly tachycardic. WBC elevated at 13.3, sodium decreased from 132 down to 129, remainder of her labs are relatively unremarkable. Continue to wean supplemental oxygen. Further care per critical Care 06/05 patient seen at bedside, no acute events overnight. She remains on high- flow nasal cannula with BiPAP overnight and is still tachycardic. Heart rate ranging from 104 up to 113, WBC improved from 13.3 down to 11.1, sodium decreased from 120 down to 126, remainder of her labs are relatively unremarkable. We will continue to wean oxygen as able. 06/06 Patient seen at bedside, no acute events overnight. She remains on high- flow nasal cannula with BiPAP overnight and is still tachycardic. Heart rate ranging from 104 up to 122, WBC improved from 11.1 down to 10.6, sodium improved from 126 up to 129, remainder of her labs are relatively unremarkable. We will continue to wean oxygen as able. 06/07 patient seen at bedside, no acute events overnight. She is still on high- flow nasal cannula, RT advised to wean oxygen, currently saturating 100% on 30L. She is tachycardic, sodium decreased from 129 down to 123, likely secondary to Bactrim. Patient is asymptomatic, will continue with bactrim, if sodium cont inues to decrease consider a holiday from bactrim. 06/08 patient seen at bedside, no acute events overnight. She is still on high- flow nasal cannula, RT advised to wean oxygen, currently saturating 100% on 30L. She is tachycardic, sodium stable at 123, same as yesterday. Pending improvement in respiratory status 06/09 patient seen at bedside, he remains on high-flow nasal cannula, we will continue to wean as able, appreciate pulmonology assistance, tachycardic with heart rate ranging from 123 up to 130. She is still having low-grade fevers at 100.8. Sodium increased from 123 up to 130, remainder of her labs are relatively unremarkable. 06/10 patient is seen and examined at bedside, remains on high-flow oxygen, she feels mildly anxious, no chest pain. Still with a cough productive of white phlegm. Still tachycardic, heart rate 117-122. Patient is still spiking low- grade fever. Hemoglobin 10.9, hematocrit 30.5. Sodium remained low at 128, BUN and creatinine of 16 and 0.4. 06/11 patient is seen and examined at bedside, patient now on AVAPS, FiO2 100%, patient became restless last night, she had to be started on Precedex. During my visit she remains alert oriented x3, no chest pain. BP 120/48, she is saturating 100%. Hemoglobin 10 point, hematocrit 31.3. ABG shows persistent hypoxemia, with a PO2 of 69.4. Chest x-ray shows extensive infiltrates on the left which is stable to somewhat increased, there has been interval development of perihilar infiltrate on the right. Normal bilateral lower extremity venous Doppler ultrasound. Continue the patient on prednisone 20 mg p.o. daily, continue Bactrim two tablets p.o. t.i.d. as well as fluconazole 100 mg p.o. daily. 06/12 patient is seen and examined at bedside, intubated, on mechanical ventilation, per discussion with the RN, patient was in respiratory distress yesterday, decision made to intubate the patient. During my visit the patient is midazolam, fentanyl, patient paralyzed, also on Nimbex. She is in a prone position. On pressor support with phenylephrine. Also on Precedex. She is also on hydrocortisone 100 mg IV q.8 hours. Son at bedside, updated. ABG shows pH 7.38, pCO2 47, PO2 122, bicarb of 27.7. 06/13 patient is seen and examined at bedside, remains intubated, on mechanical ventilation, remains on midazolam, fentanyl, patient paralyzed, also on Nimbex. She is in a prone position. On BP pressor support with phenylephrine. Patient is peep of seven. ABG pH 7.34, PO2 72.3. Chest x-ray reviewed, increasing bilateral infiltrates, increasing pneumomediastinum. 06/14 patient is seen and examined at bedside, remains intubated, on mechanical ventilation, prone position, remains on midazolam, fentanyl, patient paralyzed, also on Nimbex. She is in a prone position. Off pressors. Patient is peep of seven. ABG pH 7.34, PO2 72.3. Chest x-ray shows extensive bilateral infiltrates unchanged, no pneumothorax. 06/15 patient is seen and examined at bedside, remains intubated, on mechanical ventilation, prone position, remains paralyzed, on Nimbex. Off pressors. Patient is peep of 10. ABG pH 7.34, PO2 72.3. Chest x-ray shows extensive bilateral infiltrates unchanged, no pneumothorax. Overall condition remains unchanged. No family at bedside. 06/16 patient is seen and examined at bedside, remains intubated, on mechanical ventilation, discussed with the RN, the patient has been placed on supine position. Patient remains on pressor support. Remains on sedation with midazolam and fentanyl BP 114/60, afebrile saturating 96% FiO2 100%, peep of 8. ABG today with pCO2 63, PO2 91.5. Chest x-ray with severe consultation both lungs, unchanged, interval development of pneumomediastinum, moderate to severe. Continue Solu-Medrol 80 mg IV q.8 hours, continue broad-spectrum antibiotics with meropenem 1 g IV q.8 hours, the patient remains on Bactrim. Continue ganciclovir. 06/17 patient seen at bedside, no acute events overnight. She remains intubated, paralyzed on FiO2 of 100% and PEEP of eight. Continue to try to wean towards extubation. Chest x-ray appears mildly improved from yesterday. She remains supine. Hemoglobin improved from 8.4 up to 8.6, platelets decreased from 121 d own to 112, CO2 elevated at 41, same as yesterday, remainder of her labs are relatively unremarkable. Patient is still critical with poor prognosis continue further care per critical care team. 06/18 patient seen at bedside, no acute events overnight. She remains intubated and sedated, critical care weaning patient off paralyzing agents. She is still on FiO2 of 100% with PEEP of eight, PO2 on ABG 70.8 down from 80.5 yesterday demonstrating a worsening and her oxygenation within her blood at the same venti lator settings. PCO2 increased from 70 up to 75. Hemoglobin improved from 8.6 up to 9.0, platelets improved from 112 up to 127, CO2 increased from 41 up to 45, remainder of her labs are relatively unremarkable. 06/19 patient seen at bedside, no acute events overnight. She remains intubated and sedated, critical Care to continue trying to wean to extubation. Continue current care further recommendations per critical Care 2 patient is seen and examined at bedside, no acute events overnight, she remains intubated, on mechanical ventilation, off vasopressors, sedated with fentanyl and Versed, the patient on peep of 8, saturating 97%. 06/21 patient seen at bedside, no acute events overnight. She remains intubated, paralyzed on FiO2 of 100% and PEEP of eight. Continue to try to wean towards extubation. She remains supine. Chest x-ray stable. Hemoglobin at 8.6, hematocrit 28.4. remainder of her labs are relatively unremarkable. Patient is still critical with poor prognosis continue further care per critical care team. 06/22 patient seen at bedside, no acute events overnight. She remains intubated, paralyzed on FiO2 of 100% and PEEP of eight. Continue to try to wean towards extubation. She remains supine. Chest x-ray stable. Patient is still criti vito with poor prognosis continue further care per critical care team. 06/23 patient seen at bedside, no acute events overnight. She remains intubated, on FiO2 of 90% and PEEP of eight, ABG showing improved oxygenation will wean down to 80%. Continue to try to wean towards extubation. She remains supine. Chest x-ray improved from previous. Patient is still critical with poor p rognosis continue further care per critical care team. 06/24 patient seen at bedside, she had several desaturation episodes overnight however she is currently saturating well, ABG looks good. We will wean her FiO2 to 80% and continue to monitor. Continue to try and wean towards extubation. Hemoglobin decreased from 10.4 down to 9.0, platelets decreased from 125 down to 110, potassium decreased from 5.4 down to 5.2, CO2 increased from 43 up to 49, remainder of her labs are relatively unremarkable. 06/25 patient seen at bedside, she had several desaturation episodes overnight however she is currently saturating well, ABG pending this am. Continue to try and wean FiO2 and wean towards extubation. Hemoglobin decreased from 9.0 down to 8.5, platelets decreased from 110 down to 93, potassium decreased from 5.2 down to 4.9, CO2 improved from 49 down to 45, remainder of her labs are rel atively unremarkable. 06/26 patient seen at bedside, no acute events overnight. She continues to desaturate while retaining CO2, we will continue to try and wean as able. Patient was started on Biktarvy, WBC has increased up to 15.0. She is now tachycardic with heart rate ranging from 102 up to 122. Continue care per critical Care and Infectious Disease. Patient is very ill with a poor prognosis. 06/27 patient is seen and examined, remains intubated, on mechanical ventilation, sedated with fentanyl, rocuronium, Versed. Remains on vasopressors with Mario- Synephrine. BP 114/57. ABG with pH of 7.35, pCO2 63, PO2 65. Chest x-ray reviewed, persistent bilateral pulmonary infiltrates suggestive of pulmonary vascular congestion with possible superimposed pneumonitis, mild interval worsening seen. 06/28 patient is seen and examined at bedside, case discussed with the RN, patient is off vasopressors since yesterday, BP 111/59, still intubated, on mechanical ventilation, sedated. FiO2 100%, peep of eight. Chest x-ray still with persistent bilateral pulmonary infiltrates suggestive of pulmonary vascular congestion with possible superimposed pneumonitis. Patient getting broad- spectrum IV antibiotics at the time of my visit. Creatinine 2.2. Son at bedside, updated. REVIEW OF SYSTEMS 12 point review of systems negative unless noted in HPI PHYSICAL EXAM GENERAL APPEARANCE: Patient intubated, on mechanical ventilation. NEUROLOGICAL: Cranial nerves II-XII grossly intact. Motor is 5/5 in bilateral upper and lower extremities proximal to distal. No sensory deficits. HEENT: Face is symmetric. Pupils are equal and reactive. Extraocular movements are intact. NECK: Supple. No JVD. No thyromegaly. No submental, submandibular, pre-/post auricular, occipital or supraclavicular lymphadenopathy. CHEST: Normal chest expansion. No Telemetry. LUNGS: Bilateral rhonchi, no expiratory wheezing CARDIOVASCULAR: Regular. S1 and S2 normal. No appreciable rubs, murmurs or gallops. ABDOMEN: Soft, nontender, and nondistended. There is no rebound, voluntary guarding, or rigidity. : Deferred. No Souza. EXTREMITIES: Non-edematous and not cyanotic. No clubbing. Good capillary refill. SKIN: No skin breakdown. Vital Signs (last 8hr) Date Time Temp Pulse Resp B/P (MAP) Pulse Ox O2 Delivery O2 Flow Rate FiO2 06/28/24 09:05 68 100 06/28/24 07:56 96.8 06/28/24 07:11 74 100 06/28/24 06:45 96.8 73 36 111/59 (76) 97 06/28/24 04:16 96.8 06/28/24 04:00 91 Ventilator+ 100 06/28/24 04:00 100 LABS: Laboratory: Test 06/28/24 06:06 06/28/24 04:02 06/27/24 22:33 06/27/24 17:48 Range/Units Whole Blood Glucose 197 H 70-110 MG/DL White Blood Count 4.2 L 4.8-10.8 K/uL Red Blood Count 2.26 L 4.00-5.50 MIL/uL Hemoglobin 7.6 L 12.0-16.0 g/dL Hematocrit 22.4 #L 36-48 % Mean Corpuscular Volume 99.1 H 79-99 fL Mean Corpuscular Hemoglobin 33.6 H 27.0-33.0 pg Mean Corpuscular Hemoglobin Concent 33.9 32.0-36.0 g/dL Red Cell Distribution Width 14.3 11.0-15.5 % Platelet Count 78 #L 130-400 K/uL Mean Platelet Volume 10.5 7.5-10.5 fL Immature Granulocyte % (Auto) 0.5 0-1 % Neutrophils (%) (Auto) 93.7 H 40.0-77.0 % Lymphocytes (%) (Auto) 4.1 L 21.0-51.0 % Monocytes (%) (Auto) 1.7 L 3.0-13.0 % Eosinophils (%) (Auto) 0.0 0.0-8.0 % Basophils (%) (Auto) 0.0 0.0-5.0 % Neutrophils # (Auto) 3.9 1.8-7.7 K/uL Lymphocytes # (Auto) 0.2 L 1.0-4.8 K/uL Monocytes # (Auto) 0.1 0.1-1.0 K/uL Eosinophils # (Auto) 0.00 0.00-0.70 K/uL Basophils # (Auto) 0.00 0.00-0.20 K/uL Absolute Immature Granulocyte (auto 0.02 0-1 K/uL Nucleated Red Blood Cells 0.0 0.0-0.19 % Sodium Level 140 136-145 mmol/L Potassium Level 4.7 3.5-5.1 mmol/L Chloride Level 100 L 101-111 mmol/L Carbon Dioxide Level 39 H 21-32 mmol/L Blood Urea Nitrogen 94 *H 7-18 mg/dL Creatinine 2.2 H 0.5-1.0 mg/dL Glomerular Filtration Rate Calc 27 >90 mL/min Random Glucose 193 H 70-105 mg/dL Uric Acid 5.3 2.6-7.2 mg/dL Total Calcium 7.2 L 8.5-10.1 mg/dL Phosphorus Level 5.7 H 2.5-4.9 mg/dL Magnesium Level 2.10 1.80-2.40 mg/dL Total Bilirubin 0.3 0.2-1.0 mg/dL Aspartate Amino Transf (AST/SGOT) 50 H 10-37 U/L Alanine Aminotransferase (ALT/SGPT) 156 H 12-78 U/L Alkaline Phosphatase 114 50-136 U/L Total Protein 3.9 L 6.0-8.3 g/dL Albumin 1.7 L 3.5-5.0 g/dL Thyroid Stimulating Hormone (TSH) 0.18 #L 0.36-3.74 uIU/mL Blood Gas Specimen Type Arterial Arterial Blood pH 7.367 7.350-7.450 Arterial Blood Partial Pressure CO2 59 H 32-45 mmHg Arterial Blood Partial Pressure O2 70.1 L 83.0-108.0 mmHg Arterial Blood HCO3 33.2 H 21.0-28.0 mmol/L Arterial Blood Oxygen Saturation 92.2 L 94.0-98.0 % Arterial Blood Base Excess 6.6 H -2.0-3.0 mmol/L Hemoglobin (Blood Gas) 9.5 L 12.0-16.0 g/dL Sodium (Blood Gas) 137 136-145 MMOL/L Bedside Potassium (Blood Gas) 4.5 3.4-4.5 MMOL/L Bedside Chloride (Blood Gas) 97 L 98-107 MMOL/L Bedside Glucose (Blood Gas) 189 H 65-95 MG/DL Bedside Ionized Calcium (Blood Gas) 1.04 L 1.15-1.33 MMOL/L Bedside Lactic Acid (Blood Gas) 0.85 H 0.36-0.75 MMOL/L Blood Gas Temperature 37.0 35.5-37.0 CELSIUS Blood Gas Respiration Rate 34.0 min. Blood Gas Vent Mode PC 35 ROOM AIR FiO2 100.0 % Blood Gas PEEP 8 cm H2O Blood Gas Specimen Comment ENOCH CARBAJAL ,AL Urine Osmolality 330 50-1200 mOsm/kg Urine Random Creatinine 61.07 30-135 mg/dL Urine Random Sodium 38 L 40-220 mmol/l Urine Random Potassium 26 25-125 mmol/L Urine Random Chloride 48 L 110-250 mmol/L Test 06/26/24 18:49 Range/Units Lactic Acid Level 0.7 L 0.8-2.5 mmol/L Current Medications Medications (Trade) Dose Ordered Sig/Julita Route PRN Reason Start Time Stop Time Status Last Admin Dose Admin Acetaminophen (TYLenol 650MG ELIXIR) 650 mg Q6H PRN PO MILD PAIN (1-3) 06/04/24 08:30 07/04/24 08:29 06/10/24 20:07 650 MG Acetaminophen (TYLenol 650MG SUPPOSITORY) 650 mg Q6H PRN RC MILD PAIN (1-3) 05/23/24 20:30 06/22/24 20:29 DC Acetylcysteine (MUComyst 20% 4ML) 400mg = 2ml [id number] IH 06/02/24 00:00 06/05/24 15:52 DC 06/05/24 11:35 200 MG Albumin Human 50 ml @ 0 mls/hr Q8H IV 06/27/24 20:00 06/28/24 11:00 DC 06/28/24 03:42 100 MLS/HR Albuterol (DUOneb) 1 udvial [id number] IH 05/24/24 00:00 06/10/24 10:28 DC 06/10/24 06:45 1 UDVIAL Alprazolam (XANax 0.5MG) 0.5 mg Q8H PRN PO ANXIETY 06/10/24 13:30 07/10/24 13:29 06/25/24 06:30 0.5 MG Artificial Tears (Artificial Tears) 1 DROP OR AD Q8H OU 06/11/24 14:30 07/11/24 14:29 06/28/24 09:41 1 DROP Azithromycin 250 ml @ 250 mls/hr Q24H IVPB 05/24/24 17:00 05/24/24 14:41 DC Azithromycin 250 ml @ 250 mls/hr Q24H STAT IVPB 05/23/24 17:17 05/24/24 14:41 DC 05/23/24 17:45 250 MLS/HR Benzocaine (Cepacol Sore Throat Lozenge) 1 each Q4H PRN MM SORE THROAT 06/08/24 10:00 07/08/24 09:59 06/09/24 07:44 1 EACH Bisacodyl (DulcoLAX) 10 mg DAILY PRN RC CONSTIPATION 06/08/24 14:00 07/08/24 13:59 06/23/24 10:00 10 MG Cadexomer Iodine (Iodosorb Gel 40gm) 1 APPL TO RIGHT FAC... DAILY TP 06/19/24 09:00 07/18/24 08:59 06/28/24 09:38 1 APPL Cadexomer Iodine (Iodosorb Gel 40gm) 1 appl DAILY TP 06/18/24 09:00 06/19/24 07:23 DC 06/18/24 14:09 1 APPL Calcium Gluconate 1 gm/Sodium Chloride 100 ml @ 0 mls/hr PROTOCOL IV 06/27/24 10:30 07/27/24 10:29 06/28/24 00:08 200 MLS/HR Cefepime HCl (MAXipime 2 gm vial) 2 gm Q12H IVPB 05/24/24 15:00 06/03/24 14:59 DC 06/03/24 03:18 2 GM Ceftriaxone Sodium (ROCEphine 1G INJ) 1 gm Q24H IVPB 05/24/24 17:30 05/24/24 14:41 DC Chlorhexidine Gluconate (Peridex) 15 ml Q6H MM 06/07/24 17:00 06/11/24 14:27 DC 06/10/24 12:22 15 ML Chlorhexidine Gluconate (Peridex) 15 ml Q8H MM 06/11/24 14:30 06/25/24 14:29 DC 06/25/24 06:31 15 ML Cisatracurium Besylate (Nimbex) ONCE IVP 06/11/24 14:30 06/11/24 15:57 DC Cisatracurium Besylate 100 mg/ Sodium Chloride 100 ml @ 0 mls/hr PROTOCOL IV 06/11/24 23:30 06/23/24 16:20 DC 06/17/24 09:27 14.94 MLS/HR Cisatracurium Besylate 100 mg/ Sodium Chloride 100 ml @ 0 mls/hr PROTOCOL IV 06/23/24 16:30 06/23/24 18:43 DC 06/23/24 16:46 2.6 MLS/HR Clotrimazole (Mycelex) 10 mg TID MM 06/04/24 21:00 06/14/24 08:39 DC 06/13/24 20:28 10 MG Dexmedetomidine/ Sodium Chloride (PRECEdex 400MCG/ 100ML-NS) 400 mcg PROTOCOL IV 06/10/24 19:30 06/27/24 09:26 DC 06/25/24 05:08 400 MCG Dexmedetomidine/ Sodium Chloride (PRECEdex 400MCG/ 100ML-NS) 400 mcg PROTOCOL IV 06/27/24 09:30 07/27/24 09:29 06/28/24 10:59 400 MCG Diphenhydramine HCl (BENAdryl INJ) 25 mg Q6H PRN IV ITCHING 06/23/24 19:00 07/23/24 18:59 06/23/24 18:54 25 MG Dobutamine HCl/ Dextrose 250 ml @ 0 mls/hr PROTOCOL IV 06/12/24 16:30 06/12/24 16:53 DC Doxycycline Hyclate 250 ml @ 125 mls/hr Q12H IV 05/24/24 16:30 06/03/24 16:29 DC 06/03/24 04:23 125 MLS/HR Enoxaparin Sodium (Lovenox 80mg) 40 mg DAILY SQ 06/15/24 09:00 06/15/24 09:30 DC Enoxaparin Sodium (Lovenox 80mg) 80 mg BID SQ 06/11/24 09:00 06/14/24 23:28 DC 06/14/24 20:33 80 MG Enoxaparin Sodium (Lovenox) 40 mg DAILY SQ 06/15/24 09:30 07/15/24 09:29 Hold 06/27/24 08:19 40 MG Enoxaparin Sodium (Lovenox) 40 mg Q24H SQ 05/23/24 21:00 06/11/24 04:36 DC 06/10/24 20:07 40 MG Famotidine (Pepcid 20mg Vial) 20 mg DAILY IV 05/24/24 09:00 06/14/24 08:39 DC 06/13/24 08:15 20 MG Fentanyl Citrate 2500 mcg/Sodium Chloride 250 ml @ 0 mls/hr AD PRN IV TITRATE icu sedation 06/27/24 20:00 06/27/24 20:03 DC Fentanyl Citrate 2500 mcg/Sodium Chloride 250 ml @ 0 mls/hr AD PRN IV TITRATE 06/17/24 05:30 06/17/24 05:18 DC Fentanyl/Sodium Chloride 250 ml @ 0.1 mls/hr PROTOCOL IV 06/12/24 00:00 06/17/24 00:00 DC 06/16/24 17:36 0.1 MLS/HR Fentanyl/Sodium Chloride 250 ml @ 0 mls/hr AD PRN IV ICU SEDATION 06/17/24 05:30 06/22/24 05:29 DC 06/21/24 19:51 30 MLS/HR Fentanyl/Sodium Chloride 250 ml @ 0 mls/hr PROTOCOL IV 06/27/24 20:30 07/02/24 20:29 06/28/24 11:03 30 MLS/HR Fentanyl/Sodium Chloride 250 ml @ 0 mls/hr PROTOCOL IV 06/22/24 15:00 06/27/24 14:59 DC 06/27/24 12:13 35 MLS/HR Fluconazole (DiFLUCan 100 mg TAB) 200 mg DAILY PO 06/05/24 09:00 07/05/24 08:59 06/28/24 10:00 200 MG Fluconazole/ Sodium Chloride 100 ml @ 100 mls/hr DAILY IV 05/26/24 09:00 05/27/24 15:57 DC 05/27/24 09:07 100 MLS/HR Furosemide (LASix 20MG VIAL) 20 mg DAILY IV 05/31/24 09:00 06/07/24 13:18 DC 06/03/24 08:38 20 MG Furosemide (LASix 20MG VIAL) 20 mg DAILY IV 06/17/24 10:00 06/17/24 12:13 DC 06/17/24 09:46 20 MG Furosemide (LASix 20MG VIAL) 20 mg Q12H IV 06/11/24 11:00 06/13/24 09:31 DC 06/12/24 21:54 20 MG Furosemide (LASix 20MG VIAL) 20 mg Q12H IV 06/17/24 22:00 06/18/24 10:01 DC 06/18/24 09:44 20 MG Furosemide (LASix 20MG VIAL) 20 mg Q8H IV 06/13/24 09:30 06/16/24 11:00 DC 06/16/24 08:44 20 MG Furosemide (LASix 20MG VIAL) 20 mg Q8H IV 06/19/24 17:00 06/26/24 11:05 DC 06/26/24 09:13 20 MG Ganciclovir Sodium 250 mg/ Sodium Chloride 100 ml @ 100 mls/hr Q12H IV 06/27/24 21:00 07/27/24 20:59 06/28/24 09:37 100 MLS/HR Ganciclovir Sodium 430 mg/ Sodium Chloride 100 ml @ 100 mls/hr Q12H IV 06/13/24 09:00 06/27/24 18:34 DC 06/27/24 11:41 100 MLS/HR Ganciclovir Sodium 500 mg/ Sodium Chloride 100 ml @ 100 mls/hr Q12H IV 06/11/24 18:00 06/11/24 15:48 DC Ganciclovir Sodium (Ganciclovir Sodium) 500 mg Q12H IV 06/12/24 17:00 06/13/24 08:35 DC Guaifenesin/ Dextromethorphan (RobiTUSSin DM 200/20MG 10ML) 10 ml Q4H PRN PO COUGH 05/23/24 20:30 06/22/24 20:29 DC 06/10/24 20:07 10 ML Home Med (Home Medication) BIKTARVY (1 TAB) Q24H PO 06/24/24 17:00 07/24/24 16:59 06/27/24 17:08 1 EACH Hydralazine HCl (APRESOLine 20MG INJ) 10 mg Q4H PRN IV ADMINISTER FOR SBP > 160 06/26/24 16:30 07/26/24 16:29 06/26/24 16:27 10 MG Hydrocortisone Sodium Succinate (Solu-corTEF 100MG) 100 mg Q8H IV 06/11/24 05:00 06/14/24 08:39 DC 06/14/24 06:13 100 MG Hydroxyzine HCl (ATArax 25MG TAB) 25 mg TID PRN PO ITCHING 06/10/24 14:00 07/10/24 13:59 06/27/24 08:20 25 MG Insulin Glargine (LANtus 100 UNITS/ML 10 ML VIAL) 15 units BID@0730,2100 SQ 06/27/24 21:00 07/27/24 20:59 06/28/24 10:00 15 UNITS Insulin Human Regular (humuLIN R 100 UNIT/ML 3ML) INSULIN SLIDING SCAL... ACHS SQ 06/19/24 16:30 06/20/24 15:07 DC 06/20/24 12:30 5 UNIT Insulin Human Regular (humuLIN R 100 UNIT/ML 3ML) INSULIN SLIDING SCAL... Q6H6 SQ 06/20/24 18:00 07/19/24 16:29 06/28/24 05:11 2 UNIT Ipratropium Ralls (AtrovENT UD) 0.5 MG O0DISPS IH 06/10/24 14:00 06/27/24 14:53 DC 06/27/24 14:01 0.5 MG Ipratropium Ralls (AtrovENT UD) 0.5 MG [id number] PRN IH SHORTNESS OF BREATH 06/27/24 15:00 07/10/24 13:59 Lactated Ringer's (Lactated Ringers 1000ml) 500 ml ONCE IV 06/02/24 20:00 06/02/24 19:54 DC Lactulose (Constulose 20gm/ 30ml Udcup) 20 gm Q8H PO 06/28/24 11:00 07/28/24 10:59 Levofloxacin/ Dextrose 100 ml @ 100 mls/hr Q24H IV 05/24/24 15:00 05/24/24 16:16 DC Magnesium Sulfate 50 ml @ 0 mls/hr PROTOCOL PRN IV hypomagnesemia 05/28/24 08:00 06/27/24 07:59 DC 06/11/24 05:26 50 MLS/HR Meropenem (Merrem 1gm) 1 gm Q8H IVPB 06/13/24 15:00 06/18/24 21:57 DC 06/18/24 15:34 1 GM Meropenem (Merrem 1gm) 1 gm Q8H IVPB 06/19/24 01:00 06/21/24 00:59 DC 06/20/24 16:50 1 GM Meropenem (Merrem) 1 gm Q8H IVPB 06/11/24 15:00 06/13/24 11:52 DC 06/13/24 08:14 1 GM Meropenem 1 gm/ Sodium Chloride 100 ml @ 33.333 mls/ hr Q8H IV 06/11/24 14:30 06/11/24 14:28 DC Methylprednisolone Sodium Succinate (Solu-medROL 40MG) 20 mg Q12H IVP 06/05/24 07:00 06/09/24 09:13 DC 06/09/24 07:25 20 MG Methylprednisolone Sodium Succinate (Solu-medROL 40MG) 40 mg Q12H IVP 05/28/24 18:00 05/29/24 16:45 DC 05/29/24 05:32 40 MG Methylprednisolone Sodium Succinate (Solu-medROL 40MG) 40 mg Q6H IVP 05/29/24 16:30 06/04/24 16:44 DC 06/04/24 11:13 40 MG Methylprednisolone Sodium Succinate (Solu-medROL 40MG) 40 mg Q6H IVP 06/04/24 18:00 06/05/24 00:24 DC 06/04/24 23:48 40 MG Methylprednisolone Sodium Succinate (Solu-medROL 40MG) 40 mg Q8H IVP 05/24/24 01:00 05/25/24 21:51 DC 05/25/24 17:28 40 MG Methylprednisolone Sodium Succinate (Solu-medROL 40MG) 60 mg Q6H IVP 05/25/24 22:00 05/28/24 02:25 DC 05/27/24 23:55 60 MG Methylprednisolone Sodium Succinate (Solu-medROL 40MG) 60 mg Q6H IVP 05/28/24 06:00 05/28/24 08:27 DC 05/28/24 06:47 60 MG Methylprednisolone Sodium Succinate (Solu-medROL 40MG) 60 mg Q6H IVP 06/11/24 02:30 06/11/24 04:23 DC 06/11/24 02:46 60 MG Methylprednisolone Sodium Succinate (Solu-medROL 40MG) 80 mg Q8H IVP 06/14/24 17:00 07/14/24 08:59 06/28/24 09:37 80 MG Methylprednisolone Sodium Succinate (Solu-medROL 125MG) 80 mg Q8H IVP 06/14/24 09:00 06/14/24 14:53 DC 06/14/24 08:48 80 MG Metoclopramide HCl (regLAN 10MG/ 10ML UD CUP) 5 mg TIDAC PO 06/22/24 07:30 07/22/24 07:29 06/28/24 09:36 5 MG Metronidazole/ Sodium Chloride (flaGYL) 500 mg Q8H IV 05/25/24 22:00 05/25/24 21:56 DC Midazolam HCl 50 ml @ 0 mls/hr AD PRN IV TITRATE 06/12/24 01:30 06/12/24 08:30 DC 06/12/24 02:30 10 MLS/HR Midazolam HCl 100 ml @ 0 mls/hr AD PRN IV TITRATE 06/12/24 09:00 07/12/24 01:29 06/28/24 11:02 10 MLS/HR Morphine Sulfate (morPHINE 4MG SYG) 4 mg Q4H PRN IM RESPIRATORY SYMPTOMS 06/11/24 03:30 06/14/24 23:33 DC 06/11/24 03:27 4 MG Norepinephrine 250 ml @ 0 mls/hr PROTOCOL IV 06/23/24 21:00 07/23/24 20:59 Ondansetron HCl (zoFRAN 4MG INJ) 4 mg Q6H PRN IV NAUSEA/VOMITING 05/23/24 20:30 06/22/24 20:29 DC Pantoprazole Sodium (PROTonix 40MG INJ) 40 mg BID IVP 06/12/24 21:00 07/12/24 20:59 06/28/24 09:37 40 MG Pharmacy Profile Note (Lace Assessment) 1 each AD MISC 06/27/24 18:00 06/27/24 18:40 DC Pharmacy Profile Note (Lace Assessment) 1 each AD MISC 06/17/24 16:30 06/17/24 16:27 DC Pharmacy Profile Note (Pharmacy Communication) 1 each ONCE MISC 06/11/24 14:30 06/11/24 15:53 DC Pharmacy Profile Note (Pharmacy Communication) 1 each ONCE MISC 06/11/24 20:30 06/11/24 20:14 DC Pharmacy Profile Note (Pharmacy Communication) 1 each ONCE MISC 06/12/24 17:00 06/12/24 17:07 DC Pharmacy Profile Note (Pharmacy Communication) 1 each ONCE MISC 06/24/24 13:00 06/24/24 12:43 DC Pharmacy Profile Note (Pharmacy Communication) 1 each ONCE MISC 06/23/24 20:30 06/23/24 20:32 DC Phenylephrine HCl 10 mg/Sodium Chloride 251 ml @ 0 mls/hr AD PRN IV DIRECTED 06/11/24 03:00 06/12/24 18:12 DC 06/12/24 14:10 47 MLS/HR Phenylephrine HCl 50 mg/Sodium Chloride 250 ml @ 0 mls/hr PROTOCOL PRN IV PROTOCOL 06/12/24 18:00 07/12/24 17:59 06/13/24 08:57 12.45 MLS/HR Polyethylene Glycol (MIRalax 3350 17 GM POWD.PACK) 17 gm DAILY PO 06/22/24 09:00 07/22/24 08:59 06/28/24 09:35 17 GM Potassium Chloride 100 ml @ 100 mls/hr AD PRN IV POTASSIUM PROTOCOL 05/28/24 08:00 06/27/24 07:59 DC Potassium Chloride (K-Dur/Klor-Con 20meq) 20 meq AD PRN PO POTASSIUM PROTOCOL 05/28/24 08:00 06/27/24 07:59 DC Potassium Chloride (KCl 10% Elixir 20meq/15ml) 20 meq AD PRN PO POTASSIUM PROTOCOL 05/28/24 08:00 06/27/24 07:59 DC Prednisone (deltaSONE/ oraSONE 20MG TAB) 20 mg DAILY PO 06/10/24 09:00 06/14/24 08:39 DC 06/13/24 08:15 20 MG Rocuronium Ralls 100 mg/ Sodium Chloride 100 ml @ 0 mls/hr PROTOCOL IV 06/24/24 08:30 06/25/24 02:44 DC 06/25/24 01:00 0 MLS/HR Rocuronium Ralls 200 mg/ Sodium Chloride 200 ml @ 0 mls/hr PROTOCOL IV 06/25/24 03:00 07/24/24 08:29 06/28/24 07:40 40 MLS/HR Rocuronium Ralls (ZemuRON) 10 mg Q1H PRN IV RESP DISTRESS/VENT DISYNCHRONY 06/11/24 20:30 06/11/24 23:29 DC 06/11/24 20:33 10 MG Rocuronium Ralls (ZemuRON) 50 mg Q4H PRN IV VENT DYSSYNCHRONY 06/17/24 16:30 06/23/24 16:19 DC 06/23/24 04:03 50 MG Sodium Chloride 500 ml @ 500 mls/hr Q1H IV 06/02/24 20:00 06/02/24 20:59 DC 06/02/24 21:34 500 MLS/HR Sodium Chloride 1,000 ml @ 0 mls/hr Q0M IV 06/26/24 19:00 07/26/24 18:59 Sodium Chloride 1,000 ml @ 75 mls/hr [id number] IV 06/07/24 13:30 06/10/24 17:02 DC 06/10/24 09:05 75 MLS/HR Sodium Chloride (Sodium Chloride) 1,000 mg BIDAC PO 06/07/24 16:30 06/09/24 07:28 DC 06/08/24 16:58 1,000 MG Sodium Chloride (Sodium Chloride) 1,000 mg BIDAC PO 06/09/24 07:30 06/12/24 16:35 DC 06/12/24 12:30 1,000 MG Sodium Chloride (Sodium Chloride) 1,000 mg Q12H PO 06/12/24 21:00 07/09/24 07:29 06/27/24 20:10 1,000 MG Sodium Zirconium Cyclosilicate (Lokelma) 5 gm DAILY10 PO 06/08/24 10:30 06/10/24 10:29 DC 06/08/24 10:50 5 GM Thiamine HCl (Vitamin B-1) 100 mg DAILY IVP 06/28/24 09:00 07/28/24 08:59 06/28/24 09:38 100 MG Trimethoprim/ Sulfamethoxazole (BactRIM DS) 1 tab BID PO 05/26/24 21:00 05/29/24 16:18 DC 05/29/24 08:07 1 TAB Trimethoprim/ Sulfamethoxazole (BactRIM DS) 2 tab TID PO 05/29/24 16:30 06/05/24 20:59 DC 06/05/24 14:55 2 TAB Trimethoprim/ Sulfamethoxazole (BactRIM DS) 2 tab TID PO 06/06/24 09:30 06/11/24 21:54 DC 06/10/24 13:58 2 TAB Trimethoprim/ Sulfamethoxazole 160 mg/Dextrose 250 ml @ 333.333 mls/hr BID@0600,1800 IV 06/22/24 06:00 06/22/24 17:17 DC 06/22/24 06:25 333.333 MLS/HR Trimethoprim/ Sulfamethoxazole 160 mg/Dextrose 250 ml @ 333.333 mls/hr DAILY IV 06/23/24 09:00 07/02/24 05:59 06/27/24 13:16 333.333 MLS/HR Trimethoprim/ Sulfamethoxazole 320 mg/Dextrose 500 ml @ 333.333 mls/hr Q8H IV 06/19/24 00:30 06/21/24 21:30 DC 06/21/24 16:16 333.333 MLS/HR Trimethoprim/ Sulfamethoxazole 320 mg/Dextrose 500 ml @ 500 mls/hr Q8H IV 06/11/24 22:30 06/12/24 16:35 DC 06/12/24 06:39 500 MLS/HR Trimethoprim/ Sulfamethoxazole 320 mg/Dextrose 500 ml @ 500 mls/hr Q8H IV 06/12/24 18:00 06/13/24 11:13 DC 06/13/24 05:30 500 MLS/HR Trimethoprim/ Sulfamethoxazole 320 mg/Dextrose 500 ml @ 500 mls/hr Q8H IV 06/13/24 13:30 06/18/24 21:55 DC 06/18/24 14:08 500 MLS/HR Trimethoprim/ Sulfamethoxazole 320 mg/Dextrose 500 ml @ 500 mls/hr Q8H IV 06/18/24 11:59 06/19/24 00:56 DC 06/18/24 11:59 500 MLS/HR Valganciclovir (ValGANCIClovir HCL) 900 mg BID PO 06/11/24 21:00 06/13/24 08:37 DC Wound Care/ Dressing Products (Venelex Ointment) 1 VOLODYMYR AD TID TP 06/14/24 14:00 07/14/24 13:59 06/28/24 09:38 1 GM DIAGNOSTICS / RADIOLOGY: [ ] ASSESSMENT: Acute hypoxemic respiratory failure, POA Bilateral lower lobe bacterial pneumonia + MRSA POA, +Azra Suspected PCP PNA based on CT findings vs viral/Atypical PNA . 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 Currently the patient on FiO2 100%. Today creatinine at 2.2, continue to follow Nephrology input and recommendations. Continue fentanyl, Versed, Precedex, and rocuronium. Continue broad-spectrum antibiotics Continue gancyclovir IV q.12 hours. Continue Solu-Medrol 80 mg IV q.8 hours Continue to follow infectious disease input and recommendation Continue to follow daily chest x-ray and ABG. Further orders per hospitalization course Prognosis of this patient remains poor and guarded. Son at bedside during my visit, updated, all questions answered. Disposition: Pending improvement in clinical condition. time spent: > 35 min GAIL WALDRON MD Jun 28, 2024 11:18
[2024-06-28] MEDS: LACTULOSE 20 GM/30 ML UDCUP PO SCH (11:31)
--- NOTE | 2024-06-28 12:50 | PN ---
NEPHROLOGY PROGRESS NOTE Date/Time Patient Seen: Jun 28, 2024 Reason for Consultation: 12:49 SUBJECTIVE: This is a 49-year-old female with a past medical history of newly diagnosed HIV with AIDS. She presented to the emergency room with complaints of shortness of breath She was admitted under diagnosis of acute hypoxemic respiratory failure and pneumonia. She has had a prolonged hospital stay. She was seen in the ICU, intubated, sedated on mechanical ventilation. Continues to require vasopressors to maintain blood pressure. 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 She is currently followed by Infectious Disease. She was noted to have elevated BUN/creatinine We has been consulted for renal failure. Renal function continues to worsen Electrolytes are stable. Continues low urine output Abdominal ultrasound showed no right hydronephrosis. She continues to be intubated and sedated No family at the bedside Condition is critical and guarded. REVIEW OF SYSTEMS: Difficult to obtain given status of the patient who remains intubated mechanically ventilated PHYSICAL EXAM: General: acutely ill, sedated, intubated, and mechanically ventilated HEENT: head is atraumatic, pupils equal and reactive, ET tube in place Neck: supple, no masses, no lymphadenopathy, no thyromegaly, no JVD Lungs: decreased breath sounds bilaterally, symmetrical chest movement Cardio: regular rate, S1 and S2 normal, no rub or gallop Abdomen: soft, non tender, no distension, no organomegaly Extremities: trace edema bilateral lower extremities, no cyanosis or clubbing Skin: no rashes or suspicious lesions Neuro: sedated LABORATORY: [ ] Hematology Labs: Test 06/28/24 04:02 Range/Units White Blood Count 4.2 L 4.8-10.8 K/uL Red Blood Count 2.26 L 4.00-5.50 MIL/uL Hemoglobin 7.6 L 12.0-16.0 g/dL Hematocrit 22.4 #L 36-48 % Mean Corpuscular Volume 99.1 H 79-99 fL Mean Corpuscular Hemoglobin 33.6 H 27.0-33.0 pg Mean Corpuscular Hemoglobin Concent 33.9 32.0-36.0 g/dL Red Cell Distribution Width 14.3 11.0-15.5 % Platelet Count 78 #L 130-400 K/uL Mean Platelet Volume 10.5 7.5-10.5 fL Immature Granulocyte % (Auto) 0.5 0-1 % Neutrophils (%) (Auto) 93.7 H 40.0-77.0 % Lymphocytes (%) (Auto) 4.1 L 21.0-51.0 % Monocytes (%) (Auto) 1.7 L 3.0-13.0 % Eosinophils (%) (Auto) 0.0 0.0-8.0 % Basophils (%) (Auto) 0.0 0.0-5.0 % Neutrophils # (Auto) 3.9 1.8-7.7 K/uL Lymphocytes # (Auto) 0.2 L 1.0-4.8 K/uL Monocytes # (Auto) 0.1 0.1-1.0 K/uL Eosinophils # (Auto) 0.00 0.00-0.70 K/uL Basophils # (Auto) 0.00 0.00-0.20 K/uL Absolute Immature Granulocyte (auto 0.02 0-1 K/uL Nucleated Red Blood Cells 0.0 0.0-0.19 % Chemistry Labs: Test 06/28/24 12:16 06/28/24 04:02 06/26/24 18:49 Range/Units Whole Blood Glucose 179 H 70-110 MG/DL Sodium Level 140 136-145 mmol/L Potassium Level 4.7 3.5-5.1 mmol/L Chloride Level 100 L 101-111 mmol/L Carbon Dioxide Level 39 H 21-32 mmol/L Blood Urea Nitrogen 94 *H 7-18 mg/dL Creatinine 2.2 H 0.5-1.0 mg/dL Glomerular Filtration Rate Calc 27 >90 mL/min Random Glucose 193 H 70-105 mg/dL Uric Acid 5.3 2.6-7.2 mg/dL Total Calcium 7.2 L 8.5-10.1 mg/dL Phosphorus Level 5.7 H 2.5-4.9 mg/dL Magnesium Level 2.10 1.80-2.40 mg/dL Total Bilirubin 0.3 0.2-1.0 mg/dL Aspartate Amino Transf (AST/SGOT) 50 H 10-37 U/L Alanine Aminotransferase (ALT/SGPT) 156 H 12-78 U/L Alkaline Phosphatase 114 50-136 U/L Total Protein 3.9 L 6.0-8.3 g/dL Albumin 1.7 L 3.5-5.0 g/dL Thyroid Stimulating Hormone (TSH) 0.18 #L 0.36-3.74 uIU/mL Lactic Acid Level 0.7 L 0.8-2.5 mmol/L DIAGNOSTICS / RADIOLOGY: REASON: Hypoxic respiratory failure ORDERING PHYSICIAN: MARGO HUIZAR PROCEDURE: CXR1VW - CHEST 1VW CHEST 1VW HISTORY: Hypoxic respiratory failure COMPARISON: 06/27/2024 FINDINGS: A frontal projection of the chest was obtained. There are bilateral pulmonary infiltrates suggestive of pulmonary vascular congestion with possible superimposed pneumonitis. The heart is borderline enlarged. All the lines and tubes are again seen in place. No evidence of aortic calcification is seen. IMPRESSION: 1. Bilateral pulmonary infiltrates are seen suggestive of pulmonary vascular congestion with possible superimposed pneumonitis. DICTATED BY: TAMARA NGUYEN MD DATE: 06/28/24 1252 REASON: Hypoxic respiratory failure ORDERING PHYSICIAN: MARGO HUIZAR PROCEDURE: CXR1VW - CHEST 1VW CHEST 1VW HISTORY: Respiratory failure COMPARISON: 06/26/2024 FINDINGS: A frontal projection of the chest was obtained. There are bilateral pulmonary infiltrates suggestive of pulmonary vascular congestion with possible superimposed pneumonitis. The heart is borderline enlarged. All the lines and tubes are again seen in place. No evidence of aortic calcification is seen. IMPRESSION: 1. Bilateral pulmonary infiltrates are seen suggestive of pulmonary vascular congestion with possible superimposed pneumonitis. Mild interval worsening is seen. DICTATED BY: TAMARA NGUYEN MD DATE: 06/27/24 1146 REASON: TRANSAMINITS ORDERING PHYSICIAN: MARGO HUIZAR PROCEDURE: ABDRUQLTD - US ABDOMINAL RUQ\LTD US ABDOMINAL RUQ\E\LTD HISTORY: Elevated liver enzymes COMPARISON: None TECHNIQUE: Right upper quadrant abdominal ultrasound study was performed. FINDINGS: Liver measures 16.2 cm. Sludge material is seen throughout the gallbladder. There is small ascites. The visualized portion of the pancreas is within normal limits. Liver is echogenic consistent with liver parenchymal disease. No gallstone is seen. Common duct measures 3 mm. No evidence of gallbladder wall thickening is seen. Right kidney measures 10.5 x 5.2 x 4.3 cm. No hydronephrosis is seen of the right kidney. IMPRESSION: 1. No gallstones or ductal dilatation is seen. Sludge material in the gallbladder. Ascites. Limited study due to patient's underlying condition. 2. No hydronephrosis is seen. DICTATED BY: TAMARA NGUYEN MD DATE: 06/26/244 REASON: Elevated DDIMER ORDERING PHYSICIAN: KIANA MAGUIRE PROCEDURE: VENOUS FAY - US VENOUS DOPPLER BILATERAL US VENOUS DOPPLER BILATERAL REASON: Elevated DDIMER COMPARISON: None Technique: Bilateral venous doppler ultrasound was performed with spectral analysis and color flow imaging technique. FINDINGS: There is a normal appearance of the common femoral, deep femoral, the profunda femoris and popliteal veins. Proximal calf veins appear normal as well. There is normal response to compression and augmentation. There is no evidence of deep venous thrombosis. IMPRESSION: Normal bilateral lower extremity venous Doppler ultrasound. DICTATED BY: LALO IBANEZ MD DATE: 06/11/24911 REASON: assess EF ORDERING PHYSICIAN: MARGO HUIZAR PROCEDURE: ECHO CMP - ECHO 2-D COMPLETE APPROVED REPORT EXAM: Two-dimensional and M-mode echocardiogram with Doppler and color Doppler. INDICATION ICD: Assess left ventricular function. 2D Dimensions RVDd 3.9 cm LVEF(%) 69.9 (>50%) LVED Vol(simp.) 97.0 mL IVSd 1.3 (0.7-1.1cm) FS(%) 39 % LVES Vol(simp.) 44.0 mL LVDd 4.1 (3.8-5.6cm) LA (2D) 2.9 (1.6-4.0cm) LVEF(%, simp.) 55 % PWd 1.3 (0.7-1.1cm) Ao Root(2D) 2.7 (2.0-3.7cm) LA ESV INDEX (4CH) 18.80 mL/m2 IVSs 1.7 cm LVOT diam 2.0 (1.8-2.4cm) LA ESV INDEX (2CH) 26.30 mL/m2 LVDs 2.5 (2.5-4.0cm) IVC diam 1.4 cm LA ESV INDEX (BP) 22.70 mL/m2 PWs 1.6 cm M-Mode Dimensions EPSS 0.3 cm LA (MM) 2.6 (1.6-4.0cm) Ao Root(MM) 2.7 (2.0-3.7cm) Aortic Valve AoV VTI 0.2 m Ao Mean GR 4.0 mmHg LVOT VTI 0.20 m SANDRA (VMAX) 2.8 cm2 SANDRA (VTI) 2.8 cm2 Mitral Valve MV E Vmax 55.8 cm/s DECEL Time 236 ms MV A Vmax 64.7 cm/s P 1/2 T 42 ms E/A ratio 0.9 MVA (PHT) 5.3 cm2 TDI E/E' Medial 10.5 E/E' Lateral 5.8 Medial E' Peak V 5.30 cm/s Lateral E' Peak V 9.70 cm/s Tricuspid Valve RAP (EST) 3 mmHg RVSP 3.0 mmHg Left Ventricle The left ventricle is normal size. Mild concentric left ventricular hypertrophy. The LVEF is > 55%. The left ventricular diastolic function is normal. Right Ventricle The right ventricle is normal size. The right ventricular systolic function is normal. Atria The left atrium size is normal. The right atrium size is normal. Aortic Valve The aortic valve is normal in structure. No aortic regurgitation is present. There is no aortic valvular stenosis. Mitral Valve The mitral valve is normal in structure. There is no mitral valve regurgitation noted. There is no mitral valve stenosis. Tricuspid Valve The tricuspid valve is normal in structure. There is no tricuspid valve regurgitation noted. Pulmonic Valve Pulmonic valve is not well visualized. There is no pulmonic valvular regurgitation. Great Vessels The aortic root is normal in size. The IVC is normal in size and collapses >50% with inspiration. Pericardium There is no pericardial effusion. Other Information Quality : Technically difficult due to body habitus Rhythm : NSR Conclusion The LVEF is > 55%. Mild concentric left ventricular hypertrophy. The left ventricular diastolic function is normal. DICTATED BY: FERMÍN GALLOWAY DO DATE: 05/30/24 0853 REASON: suspected PE ORDERING PHYSICIAN: DAYRON RUBIN NP PROCEDURE: CHES PE - CT CHEST PE PROTOCOL WWO CONT CT CHEST PE PROTOCOL WWO CONT HISTORY: Suspected pulmonary embolism COMPARISON: 05/21/2019 TECHNIQUE: CT angiography of the chest was performed. The study was performed using angiographic technique with maximum intensity projection reconstruction images. Patient was given 100 cc of Omnipaque through intravenous route. FINDINGS: No CT evidence of filling defect is seen to suggest pulmonary embolus. No CT evidence of aortic dissection is seen. There are bilateral pulmonary infiltrates with subsegmental atelectasis. Fatty changes of the liver are noted. No CT evidence of pleural effusion or pericardial effusion is seen. The heart is enlarged. No evidence of adrenal mass is seen. Degenerative changes of the spine are noted. IMPRESSION: 1. No CT evidence of acute pulmonary embolus is seen. Bilateral pulmonary infiltrates with subsegmental atelectasis. Fatty changes of liver are noted. CT was performed with one or more following dose reduction techniques: automated exposure control, adjustment of the mA and kv according to patient's size, or use of a iterative reconstruction technique. DICTATED BY: TAMARA NGUYEN MD DATE: 05/24/24 180 REASON: sob ORDERING PHYSICIAN: SHANTEL VICTORIA MD PROCEDURE: CXR1VW - CHEST 1VW PORTABLE CHEST RADIOGRAPH INDICATION: sob COMPARISON: 05/21/2024 CTA chest FINDINGS: Heart size is normal. The pulmonary vascularity and paul appear normal. Left lower lung greater than right lung base opacities in the right hemidiaphragm is elevated. No significant pleural effusion noted. No pneumothorax detected. IMPRESSION: Left lower lung pneumonia and minimal right lung base atelectasis. DICTATED BY: SUSAN RAY MD DATE: 05/23/24 1729 ASSESSMENT: Acute renal failure patient has sepsis Anemia Hyperkalemia Elevated LFTs Acute hypoxic hypercapnic respiratory failure on mechanical ventilator support via ETT Severe Adult Respiratory Distress Syndrome Bilateral lower lobe pneumonia with positive MRSA and confirmed PCP 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 We have reviewed external records in detail At this time there is no emergent need for renal replacement therapy Any form of renal replacement therapy remains a high-risk due to underlying condition Family should be made aware of patient's condition We will continue to monitor the patient closely Ganciclovir dose has been adjusted Continue with Bactrim Require close monitoring of renal function and electrolytes Order CBC, CMP, uric acid, TSH and electrolytes in am Continue with IV pressors Continue mechanical ventilation and sedation. Monitor blood pressure adjust medication doses as needed Avoid hypotensive episodes May use Dilaudid 0.5 mg IV every 6 hours as needed for severe pain Monitor blood sugars Strict intake, output, and daily weight should be monitored Please renally adjust medications Avoid nephrotoxic and nonsteroidal drugs Avoid contrast if possible Will continue to monitor renal function, anemia, electrolytes Treatment plan discussed with patient Questions were answered We have discussed with the other team physicians in detail about the care plan We will continue to monitor the patient closely Case was discussed with Donnell Huizar NP Total critical care time spent with patient, nursing staff, critical care team over 35 minutes ATTESTATION BY PHYSICIAN I have seen and examined the patient. I reviewed the documentation, medical decision making, and treatment plan as noted by the mid-level provider above. I agree with the findings and plan of care. LEON KOO MD, [facility] Jun 28, 2024 12:50
--- NOTE | 2024-06-28 12:55 | HMCIMG ---
CHEST 1VW HISTORY: Hypoxic respiratory failure COMPARISON: 06/27/2024 FINDINGS: A frontal projection of the chest was obtained. There are bilateral pulmonary infiltrates suggestive of pulmonary vascular congestion with possible superimposed pneumonitis. The heart is borderline enlarged. All the lines and tubes are again seen in place. No evidence of aortic calcification is seen. IMPRESSION: 1. Bilateral pulmonary infiltrates are seen suggestive of pulmonary vascular congestion with possible superimposed pneumonitis.
--- NOTE | 2024-06-28 15:19 | NUR ---
Dr Zapata at bedside w/ Zahida LION pro of care /prognosis discussed advised them both that son states he was very committed to pursuing mom care to resuscitation if need be. sone states wanted dr. Zapata to know that son wanted patient to have HD review of chart and states. estrella wanted RN to call son and advised him of the following Both initiation of hemodialysis access and Hemodialysis are very high risk for this patient -- risk of sudden due to AMI, bleeding, arrythmia,stroke, hypotension. MD will continue to review chart and status on a day to day basis. no need for HD to be emergently started today. It may be necessary
--- NOTE | 2024-06-28 15:53 | NUR ---
Nutrition f/u Reviewed labs, notes, and medications. Elevated CO2 59, elevated BUN 94, elevated Cr 2.2, BG 179(H), Ca 7.9(L), vit. D9.1, Phos 5.7(H), elevated AST and ALT, insulin, sedated, off pressors, IV fluids, b-complex per chart review. OG tube in place, Nepro @ 25 ml/hr, last BM 06/25/24, labia ulcer, 2547 ml balance 06/27/24 per nursing. Provide trickle feeds of Nepro @25 ml/hr + 150 Q4H provides: 990kcals, 45 gm pro, 1299 ml per day if Pt CO2 levels elevated and on pressors Meets: 57% of patients caloric needs. Provide goal rate of Nepro 1.2 @ 45 ml/hr x 22 hrs once Pt off pressors, CO2 WNL, not on prone position goal rate to provide 100% of kcal needs, 100% of protein needs, Monitor extubation and position of patient. Recommendations: -Provide trickle feeds while Pt on pressors, CO2 elevated -Provide goal rate Nepro 1.8 @ 45 ml/hr x 22 hrs + 150 Q4H ONCE MEDICALLY FEASIBLE Provides: 1782 kcals, 80 gm pro, 1619 ml per day -Monitor BM -If no BM >3 days consider stool softener -Monitor electrolytes -Replenish electrolytes per protocol -Monitor wts -Reweigh as able -Provide vit. D supplement per vit. D 9.1 -Provide b-complex QD -Monitor TF tolerance + need for TF adjustment -Monitor goals of care RD to follow + available for consult per protocol Addendum: 06/28/24 at [address] Amended: Links added.
[2024-06-28 19:12] LABS: ABG BASE EXCESS 4.5 mmol/L (-2.0-3.0); ABG HCO3 30.1 mmol/L (21.0-28.0); ABG OXYGEN SATURATION 92.7 % (94.0-98.0); ABG PCO2 51 mmHg (32-45); ABG PH 7.386 (7.350-7.450); HHb 7.2; PO2, ARTERIAL BG 68.4 mmHg (83.0-108.0); VENT MODE, BG PC PIP 30 (ROOM AIR)
--- NOTE | 2024-06-28 19:50 | NUR ---
DISCUSSED GANCYCLOVIR DOSING WITH PHARMACY. DR. KOO WAS IN UNIT TODAY, STATES WANTED TO ENSURE THAT GANCYCLOVIR WAS RENALLY DOSD. PLEASE SEE MAR FOR CHANGED PER PHARMACY AT THIS TIME.
--- NOTE | 2024-06-28 21:01 | PN ---
INFECTIOUS DISEASE FOLLOWUP NOTE DATE OF SERVICE: 06/28/2024 SUBJECTIVE: The patient is seen and examined at bedside today. The patient remained intubated and sedated on ventilatory support. The patient now found to be anuric, BUN 94, creatinine 2.2. Biktarvy will be placed on hold due to renal failure. The patient is still on vasopressor. FiO2 is at 100%. PEEP is at 8. PHYSICAL EXAMINATION: VITAL SIGNS: Temperature 98.6. EYES: No icterus. Pupils equal and reactive. HENT: Orally intubated, on ventilatory support. NECK: Supple, no JVD or thyromegaly. LUNGS: Crackles, no rhonchi. CARDIOVASCULAR: S1, S2 regular. No murmur heard. ABDOMEN: Full, soft. Bowel sound is present. CENTRAL NERVOUS SYSTEM: The patient is sedated, bedbound. SKIN: No rashes, no itchiness. LYMPHATIC: No peripheral lymphadenopathy. BACK: Wound in the right gluteal area, which is improving. GENITOURINARY: Souza catheter in place. LABORATORY DATA: Sodium 140, potassium 4.7, BUN 94, creatinine 2.2. ASSESSMENT: A 49-year-old female with multiple problems, which include: * Methicillin-resistant Staphylococcus aureus pneumonia. * Pneumocystis jirovecii pneumonia. * Human immunodeficiency virus/acquired immunodeficiency syndrome. * Cytomegalovirus infection. * Oral mucositis. * Candidiasis. * Obesity. * Gluteal ulcer. * Renal failure. PLAN: * Biktarvy will be placed on hold. * Continue wound care. * Continue critical care support. * Continue ventilatory support. * Monitor electrolytes. * Continue DVT prophylaxis. * The patient will follow up closely. TID: [id number] RECEIPT: [id number]
[2024-06-28] MEDS: BUMETANIDE 1MG/4ML VIAL IVP SCH (22:22)
[2024-06-29] VITALS (37 sets, daily range): BP systolic 96–218; BP diastolic 51–108; PULSE 50–81; RESP 23–42; TEMP 96.1–96.7; O2SAT 85–97
[2024-06-29] MEDS: acetylCYSTeine 20% 200MG/ML 4ML VIAL IH ONE (03:20)
[2024-06-29] MEDS: IpraTROPium 0.5 MG/2.5 ML INH IH PRN (03:21)
[2024-06-29 04:19] LABS: LYMPHOCYTES # (AUTO) 0.1 K/uL (1.0-4.8); LYMPHOCYTES % (AUTO) 1.6 % (21.0-51.0); MEAN CORPUSCULAR HEMOGLOBIN 33.6 pg (27.0-33.0); MEAN CORPUSCULAR HGB CONC 33.1 g/dL (32.0-36.0); MEAN CORPUSCULAR VOLUME 101.6 fL (79-99); MONOCYTES % (AUTO) 0.7 % (3.0-13.0); NEUTROPHILS # (AUTO) 4.3 K/uL (1.8-7.7); NEUTROPHILS % (AUTO) 95.5 % (40.0-77.0); PLATELET COUNT (AUTO) 72 K/uL (130-400); RED BLOOD CELL COUNT(AUTO) 2.56 MIL/uL (4.00-5.50); RED CELL DISTRIBUTION WIDTH 14.2 % (11.0-15.5); WHITE BLOOD COUNT (AUTO) 4.5 K/uL (4.8-10.8)
[2024-06-29 04:38] LABS: ALBUMIN 1.6 g/dL (3.5-5.0); BILIRUBIN,TOTAL 0.4 mg/dL (0.2-1.0); CREATININE 2.7 mg/dL (0.5-1.0); MAGNESIUM 2.1 mg/dL (1.80-2.40)
[2024-06-29 05:30] LABS: ABG HCO3 27.2 mmol/L (21.0-28.0); ABG OXYGEN SATURATION 76.6 % (94.0-98.0); ABG PCO2 60 mmHg (32-45); ABG PH 7.275 (7.350-7.450); PO2, ARTERIAL BG 47.1 mmHg (83.0-108.0); VENT MODE, BG PC PIP 30 (ROOM AIR)
[2024-06-29] MEDS: Solu-medROL 40MG VIAL IVP ONE (06:00)
--- NOTE | 2024-06-29 06:16 | PN ---
[facility] PROGRESS NOTE Date Patient Seen: Jun 29, 2024 Time of Visit: 0515 Supervising Physician: [Dr. Ramiro Kohler ] Primary Care Physician: Stu Foss MD Outpatient Specialists: Inpatient Consults: Pulmonology PROBLEM LIST: - Acute hypoxic hypercapnic respiratory failure on mechanical ventilator support via ETT - Severe Adult Respiratory Distress Syndrome -MODS (respiratory, Liver , and kidneys) -RADHA Hyperkalemia -Transaminitis - Bilateral lower lobe pneumonia with positive MRSA and confirmed PCP - Disseminated herpes simplex viral infection - Newly diagnoses HIV with AIDS - Morbid obesity, BMI 31.4 - Severe protein calorie malnutrition - Former tobacco use disorder INTERVAL HISTORY: 06/27/24- The patient continues critically ill. Continues on mechanical ventilation sedated on fentanyl 300 micrograms/hour, Versed 10 milligrams/hour and rocuronium per per lysing agent. She has been hemodynamically stable not on any pressors current heart rate in the 60s respiratory rate 34 on the vent saturating 91% on FiO2 100% peep of 8. Vent mode pressure control of 35, respiratory rate of 34. ABGs improved this morning pH of 7.35 pCO2 of 63 PO2 of 65.4 and bicarb of 34.6. Kidneys are worsening with poor urine output of 175 mL in the last 24 hours. Nephrology has been consulted and pharmacy has been consulted for adjustment of antibiotics to creatinine clearance. Cr of 1.6 gfr of 39 and BUN of 75. Potassium of 5.3 and corrected with lokelma x1. WBC WBCs have normalized 9.9 H&H ishave normal 9.5/29.6i platelet count is 132zed, hh s on CBC there is improvementt withabl white count of 9.9 H&H 9.5e, platelet count is normal. Chest XR with increased pulmonary vascular congestion. 06/28/24-patient critically ill analysis. Continues on mechanical ventilation sedated on fentanyl, Versed and generalized with rocuronium drip 0 peep of per ventilation synchrony sedation. Patient has been hemodynamically stable but this morning had to be placed back on Levophed at 0.01 micrograms/kilogram per minute with. Blood pressure 127/73, HR 76, RR 36 afebrile with T low of 96.8, due due to hypothermia will send pancultures. Urine culture output 25ml in 24 hours, Software Computer Specialist following pt. + 3.6 L. chest XR with worsening viviana vascular congestion. and pulmonary infiltrates. WBC's 4.2, HH 7.6 over 22.4 likely decreased HH from hypervolemia. On chemistry Carbon dioxide 39, BUN 94, cr 2.2 GFR 27. Vent settings adjusted Pressure control Max IP 30 RR 36, FIO2 of 90% peep of 5. Continue to adjust per ABG. 06/29/24 @ 0515: This is an additional visit in reference to critical care call from bedside RN Ilya that they have been bagging the patient since 230am due to sustaining desaturation. Coordination of care rendered and discussed with bedside RNMonica and patient's son. Patient was given Acetylcysteine neb, and about to receive extra dose of Solumedrol and scheduled Bumex. Vent setting was adjusted and maxed to FiO2 of 100%, PEEP of 10 and rate of 36 without significant improvement on her saturation. Discussed with my attending regarding the ABG result and sent the CXR image. Instruction received to inform the family that she is not going to make it and nothing much to do at all. I spoke to the family at bedside and told them about the situation and patient's unresponsiveness to treatment being on ventilator for about 2 weeks now. I discussed about code status and options for comfort measures considering the futility of the patient's condition. Family will have to meet to finalize the decision, nothing was confirmed at this time. The son, who is the decision-maker processes the information given to him. Patient's saturation and BP continues to decline. REVIEW OF SYSTEMS: Unable to obtain ROS from patient due to patient's medical condition. PHYSICAL EXAM: GENERAL: Sedated and paralyzed, intubated currently semi-melgar's position : Oliguric and concentrated urine NEURO: Intubated sedated and paralyzed. Other physical exam was deferred Vital Signs (last 8hr) Date Time Temp Pulse Resp B/P (MAP) Pulse Ox O2 Delivery O2 Flow Rate FiO2 06/29/24 03:58 54 100 06/29/24 03:21 80 34 06/29/24 00:22 54 90 LABS: Hematology Labs: Test 06/29/24 03:53 Range/Units White Blood Count 4.5 L 4.8-10.8 K/uL Red Blood Count 2.56 L 4.00-5.50 MIL/uL Hemoglobin 8.6 L 12.0-16.0 g/dL Hematocrit 26.0 L 36-48 % Mean Corpuscular Volume 101.6 H 79-99 fL Mean Corpuscular Hemoglobin 33.6 H 27.0-33.0 pg Mean Corpuscular Hemoglobin Concent 33.1 32.0-36.0 g/dL Red Cell Distribution Width 14.2 11.0-15.5 % Platelet Count 72 L 130-400 K/uL Mean Platelet Volume 10.6 H 7.5-10.5 fL Immature Granulocyte % (Auto) 2.2 H 0-1 % Neutrophils (%) (Auto) 95.5 H 40.0-77.0 % Lymphocytes (%) (Auto) 1.6 L 21.0-51.0 % Monocytes (%) (Auto) 0.7 L 3.0-13.0 % Eosinophils (%) (Auto) 0.0 0.0-8.0 % Basophils (%) (Auto) 0.0 0.0-5.0 % Neutrophils # (Auto) 4.3 1.8-7.7 K/uL Lymphocytes # (Auto) 0.1 L 1.0-4.8 K/uL Monocytes # (Auto) 0.0 L 0.1-1.0 K/uL Eosinophils # (Auto) 0.00 0.00-0.70 K/uL Basophils # (Auto) 0.00 0.00-0.20 K/uL Absolute Immature Granulocyte (auto 0.10 0-1 K/uL Nucleated Red Blood Cells 0.0 0.0-0.19 % Chemistry Labs: Test 06/29/24 03:53 06/29/24 00:41 06/28/24 21:26 06/28/24 04:02 Range/Units Sodium Level 139 136-145 mmol/L Potassium Level 5.0 3.5-5.1 mmol/L Chloride Level 103 101-111 mmol/L Carbon Dioxide Level 33 H 21-32 mmol/L Blood Urea Nitrogen 106 *H 7-18 mg/dL Creatinine 2.7 H 0.5-1.0 mg/dL Glomerular Filtration Rate Calc 21 >90 mL/min Random Glucose 159 H 70-105 mg/dL Total Calcium 6.9 L 8.5-10.1 mg/dL Magnesium Level 2.10 1.80-2.40 mg/dL Total Bilirubin 0.4 # 0.2-1.0 mg/dL Aspartate Amino Transf (AST/SGOT) 63 H 10-37 U/L Alanine Aminotransferase (ALT/SGPT) 124 #H 12-78 U/L Alkaline Phosphatase 119 50-136 U/L Total Protein 4.0 L 6.0-8.3 g/dL Albumin 1.6 L 3.5-5.0 g/dL Whole Blood Glucose 164 H 70-110 MG/DL Bedside Glucose Comment Stat Lab Glu Request Bedside Glucose #2 Comment Protocol Initiated Uric Acid 5.3 2.6-7.2 mg/dL Phosphorus Level 5.7 H 2.5-4.9 mg/dL Thyroid Stimulating Hormone (TSH) 0.18 #L 0.36-3.74 uIU/mL DIAGNOSTICS / RADIOLOGY RESULTS: [ ] PLAN her prognosis is grim and her survival rate is less than 10% she is very unstable, critically ill and remains fully dependent on ventilator support with 100% FiO2 In her current clinical condition, she would not tolerate tracheostomy or PEG tube she desaturates just by repositioning her and becomes tachycardic and tachypneic I talked at length with the family which included her sister and 2 children I addressed DNR and comfort measures and explained the severity of her illness and her physical decline I advised against CPR and instructed family to consider DNR. I explained that DNR does not mean that we will stop providing medical care but rather, in the event of cardiac arrest, we would not perform heroic life saving measures that would only cause more harm and ultimately will be futile. NEURO: Minimize central acting medications as possible. Maintain fall precautions, adequate lighting during the day PULMONARY: Supplemental 02 as needed. Maintain aspiration precautions at all times. Because of the concern of PCP pneumonia and HIV test was ordered and is pending confirmation. I am going to request a CD4 count in the meantime. Respiratory culture resulted positive for MRSA and Betty albicans. I am going to consult Infectious Disease specialist to guide antibiotic therapy. CARDIOVASCULAR: Follow hemodynamics. Vital signs per facility protocol. GI & NUTRITION: Continue with nutritional support. Continue stool softeners and laxatives as needed. KIDNEYS & ELECTROLYTES: Strict monitoring of intake, output and overall fluid balance. Avoid nephrotoxic medications to the extent possible. Medications to be dosed according to renal function. Monitor electrolytes and replace as needed ENDOCRINE: Maintain blood glucose between 100-180 at all times. Hypoglycemia protocol in place INFECTIOUS DISEASE: Trend temperature, WBC and procalcitonin level Follow cultures, deescalate antibiotics as soon as possible. Panculture if new onset fever Current antibiotic course Cefepime, doxycycline, Fluconazole, we will add Bactrim. We will follow the indication of the Infectious Disease specialist. ONCOLOGY/HEMATOLOGY/COAGULATION: Monitor for s/s of bleeding Monitor hemoglobin, coagulation studies as needed SKIN: Pressure ulcer prevention per facility protocol Specialty mattress ORTHO/REHAB: Continue PT/OT Prophylaxis: Continue GI and DVT prophylaxis Code Status: Full Resuscitation Disposition: TBD Other: Critical care time I personally spent 25 minutes of critical care time in treatment of this patient. This includes patient management, time at bedside, time reviewing tests, labs, appropriate images and studies, documentation, and patient care coordination. YOHAN OLMEDO AGPCNP Jun 29, 2024 06:16
--- NOTE | 2024-06-29 08:55 | HMCIMG ---
Exam Type: CHEST 1VW Clinical Information: Hypoxic respiratory failure Comparison: June 28, 2024 Findings: Pulmonary pattern is as before. No worrisome interval changes have taken place. Impression: Stable exam.
[2024-06-29] MEDS: GANCICLOVIR SODIUM IV SCH (09:00)
[2024-06-29] MEDS: [UNRECOGNIZED DRUG - OTHER] IV SCH (09:00)
--- NOTE | 2024-06-29 10:38 | PN ---
[facility] PROGRESS NOTE Date of Service: Jun 29, 2024 Time of Service: 10:35 SUBJECTIVE: [ ] Ms. Abdullahi is a 49-year-old female that was seen and examined today on 05/23/2024. Patient is a good historian and personal health. Patient's son Dagoberto Salcido is at bedside. Patient states that she came to the emergency department with a chief complaint of shortness of breath. Onset was two weeks ago. Location is to lungs. Duration is on and off. Character is described as "easily running out of air." Initially shortness and breath was only aggravated with climbing one or two flights of stairs but symptoms have progressively worsened and patient becomes short of breath even standing or walking short distances. There was no alleviating factors however previously symptoms were being controlled with daily morning albuterol nebulizer treatments. Patient denies any associated chest pain or dizziness. Patient reports an episode of COVID in December 2023. emergency department CBC unremarkable, chemistry unremarkable, urinalysis unremarkable, influenza screen negative, COVID negative, blood gas shows PO2 less than 45. Chest x-ray shows left lower lung pneumonia and minimal right lung base atelectasis. Upon arrival to the emergency department patient was placed on a BiPAP due to respiratory distress. 05/24/2024-patient was seen and examined at the bedside, still on BiPAP. Patient is able to speak, and says she feels much better than before. Patient says after COVID in December she developed severe bronchitis and she was on Solu-Medrol and albuterol, which did not help her much and later she had high fevers and shortness of breath which is when she came to the ED.Vitals afebrile pulse 76, RR 38 tachypneic , blood pressure 115/68, pulse oxygen 99 on BiPAP flow of 60. On ABG pH 7.47, pCO2 29, PO2 109.4, oxygen saturation 98.3. [id number] potassium 4.1 BUN15 creatinine 0.5 GFR 114. We will closely monitor the patient. [employer] consult noted waiting on the recommendation 05/25/24 patient was seen and examined and case discussed with RN and family by the bedside. She was breathing better today. She has been on BiPAP all night but now he was on 100% non-rebreather with further efforts to continue to wean the oxygen requirements down. 05/26/24 patient was seen and examined and case discussed with the RN. No acute events noted overnight. Appreciate pulmonology and ID input continue IV antibiotics and fluconazole. 05/27/24 patient is seen and examined at bedside, acute events overnight, case discussed with the RN, BP 131/64, afebrile, saturating 96-97% via Ventimask, FiO2 40%. The patient admits cough productive of clear phlegm. Serology tests reviewed, HIV preliminary positive, discussed with the patient. 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 We will continue the patient on IV antibiotics, continue fluconazole, continue to follow Pulmonary and ID input and recommendations. After provided in the preliminary results of HIV test, she denies any suicidal or homicidal ideations. 05/28 patient has been seen and examined, no acute events overnight, case discuss ed with the RN, during my visit patient is sitting comfortably in the chair, hemodynamically stable, off Ventimask, currently on 10 L via nasal cannula, saturating 98%, tolerated BiPAP overnight. she feels better, less shortness a breath, still admits cough productive of yellow phlegm. No chest pain. Getting IV antibiotics during my visit. HIV P24 antigen, nonreactive. We will continue to follow Pulmonary and Infectious Disease input and recommendations. 05/29 patient has been seen and examined, no acute events overnight, case discussed with the RN, during my visit patient is sitting comfortably in the chair, hemodynamically stable, remains on 10 L via nasal cannula, saturating 98%, still admits cough productive of yellow phlegm. No chest pain. Getting IV antibiotics during my visit. HIV P24 antigen, nonreactive. Pending CD4 cell count. We will continue to follow Pulmonary and Infectious Disease input and recommendations. 05/30 the patient has been seen and examined, no acute events overnight, BP 11 4/66, during my visit she is on Ventimask, saturating 95%, FiO2 60%. Without the Ventimask the patient desaturates to the low 70s. Patient tolerating BiPAP during the night. Still admits cough productive of thick yellow phlegm, no chest pain. Results of CD4 cell count reviewed, discussed with the patient. We will continue broad-spectrum IV antibiotics. Continue to follow Pulmonary and Infectious Disease input and recommendations. 05/31 the patient has been seen and examined, upgraded to the ICU, during my visit she is sitting in the chair, BP 113/72, heart rate of 109, she is on Oxymizer, 30 L, FiO2 100%. She is alert oriented x3, still admits cough productive of thick yellow phlegm, no chest pain. Hemoglobin 12.9, hematocrit 36.6, WBC 14.6. ABG with pH 7.4, pCO2 40, PO2. Chest x-ray shows left lower lobe infiltrate consistent with pneumonia. She is getting IV antibiotics during my visit. Patient will remain in the ICU, continue to follow critical Care as well as infectious disease input and recommendations. 06/01 patient is seen and examined, sitting comfortable in chair, awake, following commands, remains on high-flow oxygen, FiO2 70%, 30 L, BP 117/67, heart rate of 78, respiratory rate of 30-36, saturating 100%, CBC with a hemoglobin 13.6, hematocrit 38.9, WBC 12.4. Platelet count of 341. Chest x-ray showing persistent left lung infiltrate, cardiac size and mediastinum unremarkable. The bony structures are within the normal limits. Patient getting IV antibiotics during my visit. Patient to continue with the high-dose steroids. Serology test positive for Pneumocystis sandra. Patient on Bactrim two tablets p.o. t.i.d.. Continue also doxycycline and cefepime IV. Continue to follow infectious disease input and recommendation. Continue to follow Pulmonary input and recommendations. 06/02 patient is seen and examined at bedside, currently in prone position, alert oriented x3. CPT started last night, she has started having more loose phlegm expectorated. BP 114/74, tachycardic 114, saturating 95%, high-flow nasal cannula, 30 L, FiO2 80%. CBC with a hemoglobin 16.9, hemoglobin 14 0, hematocrit 39.8, platelet count 347. Chest x-ray shows persistent left lung infiltrate. 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 Serology test for toxoplasma currently pending. Patient on IV antibiotics as well as high-dose steroids. Continue to follow infectious Disease and Pulmonary input and recommendations. 06/03 patient seen at bedside, no acute events overnight. She continues with respiratory distress, with increasing oxygen requirements. Critical Care has discussed a possible need for intubation if she does not improve. She has been started on steroids due to underlying PCP pneumonia. WBC improved from 16.9 down to 13.5, sodium stable at 132, same as yesterday, lactic acid downtrending from 4.1 down to 3.2, remainder of her labs are relatively unremarkable. 06/04 patient seen at bedside, no acute events overnight. She remains on high- flow nasal cannula, mildly tachycardic. WBC elevated at 13.3, sodium decreased from 132 down to 129, remainder of her labs are relatively unremarkable. Continue to wean supplemental oxygen. Further care per critical Care 06/05 patient seen at bedside, no acute events overnight. She remains on high- flow nasal cannula with BiPAP overnight and is still tachycardic. Heart rate ranging from 104 up to 113, WBC improved from 13.3 down to 11.1, sodium decreased from 120 down to 126, remainder of her labs are relatively unremarkable. We will continue to wean oxygen as able. 06/06 Patient seen at bedside, no acute events overnight. She remains on high- flow nasal cannula with BiPAP overnight and is still tachycardic. Heart rate ranging from 104 up to 122, WBC improved from 11.1 down to 10.6, sodium improved from 126 up to 129, remainder of her labs are relatively unremarkable. We will continue to wean oxygen as able. 06/07 patient seen at bedside, no acute events overnight. She is still on high- flow nasal cannula, RT advised to wean oxygen, currently saturating 100% on 30L. She is tachycardic, sodium decreased from 129 down to 123, likely secondary to Bactrim. Patient is asymptomatic, will continue with bactrim, if sodium cont inues to decrease consider a holiday from bactrim. 06/08 patient seen at bedside, no acute events overnight. She is still on high- flow nasal cannula, RT advised to wean oxygen, currently saturating 100% on 30L. She is tachycardic, sodium stable at 123, same as yesterday. Pending improvement in respiratory status 06/09 patient seen at bedside, he remains on high-flow nasal cannula, we will continue to wean as able, appreciate pulmonology assistance, tachycardic with heart rate ranging from 123 up to 130. She is still having low-grade fevers at 100.8. Sodium increased from 123 up to 130, remainder of her labs are relatively unremarkable. 06/10 patient is seen and examined at bedside, remains on high-flow oxygen, she feels mildly anxious, no chest pain. Still with a cough productive of white phlegm. Still tachycardic, heart rate 117-122. Patient is still spiking low- grade fever. Hemoglobin 10.9, hematocrit 30.5. Sodium remained low at 128, BUN and creatinine of 16 and 0.4. 06/11 patient is seen and examined at bedside, patient now on AVAPS, FiO2 100%, patient became restless last night, she had to be started on Precedex. During my visit she remains alert oriented x3, no chest pain. BP 120/48, she is saturating 100%. Hemoglobin 10 point, hematocrit 31.3. ABG shows persistent hypoxemia, with a PO2 of 69.4. Chest x-ray shows extensive infiltrates on the left which is stable to somewhat increased, there has been interval development of perihilar infiltrate on the right. Normal bilateral lower extremity venous Doppler ultrasound. Continue the patient on prednisone 20 mg p.o. daily, continue Bactrim two tablets p.o. t.i.d. as well as fluconazole 100 mg p.o. daily. 06/12 patient is seen and examined at bedside, intubated, on mechanical ventilation, per discussion with the RN, patient was in respiratory distress yesterday, decision made to intubate the patient. During my visit the patient is midazolam, fentanyl, patient paralyzed, also on Nimbex. She is in a prone position. On pressor support with phenylephrine. Also on Precedex. She is also on hydrocortisone 100 mg IV q.8 hours. Son at bedside, updated. ABG shows pH 7.38, pCO2 47, PO2 122, bicarb of 27.7. 06/13 patient is seen and examined at bedside, remains intubated, on mechanical ventilation, remains on midazolam, fentanyl, patient paralyzed, also on Nimbex. She is in a prone position. On BP pressor support with phenylephrine. Patient is peep of seven. ABG pH 7.34, PO2 72.3. Chest x-ray reviewed, increasing bilateral infiltrates, increasing pneumomediastinum. 06/14 patient is seen and examined at bedside, remains intubated, on mechanical ventilation, prone position, remains on midazolam, fentanyl, patient paralyzed, also on Nimbex. She is in a prone position. Off pressors. Patient is peep of seven. ABG pH 7.34, PO2 72.3. Chest x-ray shows extensive bilateral infiltrates unchanged, no pneumothorax. 06/15 patient is seen and examined at bedside, remains intubated, on mechanical ventilation, prone position, remains paralyzed, on Nimbex. Off pressors. Patient is peep of 10. ABG pH 7.34, PO2 72.3. Chest x-ray shows extensive bilateral infiltrates unchanged, no pneumothorax. Overall condition remains unchanged. No family at bedside. 06/16 patient is seen and examined at bedside, remains intubated, on mechanical ventilation, discussed with the RN, the patient has been placed on supine position. Patient remains on pressor support. Remains on sedation with midazolam and fentanyl BP 114/60, afebrile saturating 96% FiO2 100%, peep of 8. ABG today with pCO2 63, PO2 91.5. Chest x-ray with severe consultation both lungs, unchanged, interval development of pneumomediastinum, moderate to severe. Continue Solu-Medrol 80 mg IV q.8 hours, continue broad-spectrum antibiotics with meropenem 1 g IV q.8 hours, the patient remains on Bactrim. Continue ganciclovir. 06/17 patient seen at bedside, no acute events overnight. She remains intubated, paralyzed on FiO2 of 100% and PEEP of eight. Continue to try to wean towards extubation. Chest x-ray appears mildly improved from yesterday. She remains supine. Hemoglobin improved from 8.4 up to 8.6, platelets decreased from 121 d own to 112, CO2 elevated at 41, same as yesterday, remainder of her labs are relatively unremarkable. Patient is still critical with poor prognosis continue further care per critical care team. 06/18 patient seen at bedside, no acute events overnight. She remains intubated and sedated, critical care weaning patient off paralyzing agents. She is still on FiO2 of 100% with PEEP of eight, PO2 on ABG 70.8 down from 80.5 yesterday demonstrating a worsening and her oxygenation within her blood at the same venti lator settings. PCO2 increased from 70 up to 75. Hemoglobin improved from 8.6 up to 9.0, platelets improved from 112 up to 127, CO2 increased from 41 up to 45, remainder of her labs are relatively unremarkable. 06/19 patient seen at bedside, no acute events overnight. She remains intubated and sedated, critical Care to continue trying to wean to extubation. Continue current care further recommendations per critical Care 2 patient is seen and examined at bedside, no acute events overnight, she remains intubated, on mechanical ventilation, off vasopressors, sedated with fentanyl and Versed, the patient on peep of 8, saturating 97%. 06/21 patient seen at bedside, no acute events overnight. She remains intubated, paralyzed on FiO2 of 100% and PEEP of eight. Continue to try to wean towards extubation. She remains supine. Chest x-ray stable. Hemoglobin at 8.6, hematocrit 28.4. remainder of her labs are relatively unremarkable. Patient is still critical with poor prognosis continue further care per critical care team. 06/22 patient seen at bedside, no acute events overnight. She remains intubated, paralyzed on FiO2 of 100% and PEEP of eight. Continue to try to wean towards extubation. She remains supine. Chest x-ray stable. Patient is still criti vito with poor prognosis continue further care per critical care team. 06/23 patient seen at bedside, no acute events overnight. She remains intubated, on FiO2 of 90% and PEEP of eight, ABG showing improved oxygenation will wean down to 80%. Continue to try to wean towards extubation. She remains supine. Chest x-ray improved from previous. Patient is still critical with poor p rognosis continue further care per critical care team. 06/24 patient seen at bedside, she had several desaturation episodes overnight however she is currently saturating well, ABG looks good. We will wean her FiO2 to 80% and continue to monitor. Continue to try and wean towards extubation. Hemoglobin decreased from 10.4 down to 9.0, platelets decreased from 125 down to 110, potassium decreased from 5.4 down to 5.2, CO2 increased from 43 up to 49, remainder of her labs are relatively unremarkable. 06/25 patient seen at bedside, she had several desaturation episodes overnight however she is currently saturating well, ABG pending this am. Continue to try and wean FiO2 and wean towards extubation. Hemoglobin decreased from 9.0 down to 8.5, platelets decreased from 110 down to 93, potassium decreased from 5.2 down to 4.9, CO2 improved from 49 down to 45, remainder of her labs are rel atively unremarkable. 06/26 patient seen at bedside, no acute events overnight. She continues to desaturate while retaining CO2, we will continue to try and wean as able. Patient was started on Biktarvy, WBC has increased up to 15.0. She is now tachycardic with heart rate ranging from 102 up to 122. Continue care per critical Care and Infectious Disease. Patient is very ill with a poor prognosis. 06/27 patient is seen and examined, remains intubated, on mechanical ventilation, sedated with fentanyl, rocuronium, Versed. Remains on vasopressors with Mario- Synephrine. BP 114/57. ABG with pH of 7.35, pCO2 63, PO2 65. Chest x-ray reviewed, persistent bilateral pulmonary infiltrates suggestive of pulmonary vascular congestion with possible superimposed pneumonitis, mild interval worsening seen. 06/28 patient is seen and examined at bedside, case discussed with the RN, patient is off vasopressors since yesterday, BP 111/59, still intubated, on mechanical ventilation, sedated. FiO2 100%, peep of eight. Chest x-ray still with persistent bilateral pulmonary infiltrates suggestive of pulmonary vascular congestion with possible superimposed pneumonitis. Patient getting broad- spectrum IV antibiotics at the time of my visit. Creatinine 2.2. Son at bedside, updated. 06/29 patient is seen and examined at bedside, case discussed with the RN, during my visit the patient remains in the intensive care unit, intubated, mechanical ventilation. She is still requiring Levophed for blood pressure support, remains on Precedex, fentanyl, Versed and rocuronium. Chest x-ray with pulmonary pattern as before, worrisome interval change. Creatinine 2.7. ABG with pH 7.27, pCO2 60, PO2 471. REVIEW OF SYSTEMS 12 point review of systems negative unless noted in HPI PHYSICAL EXAM GENERAL APPEARANCE: Patient intubated, on mechanical ventilation. NEUROLOGICAL: Cranial nerves II-XII grossly intact. Motor is 5/5 in bilateral upper and lower extremities proximal to distal. No sensory deficits. HEENT: Face is symmetric. Pupils are equal and reactive. Extraocular movements are intact. NECK: Supple. No JVD. No thyromegaly. No submental, submandibular, pre- /postauricular, occipital or supraclavicular lymphadenopathy. CHEST: Normal chest expansion. No Telemetry. LUNGS: Bilateral rhonchi, no expiratory wheezing CARDIOVASCULAR: Regular. S1 and S2 normal. No appreciable rubs, murmurs or gallops. ABDOMEN: Soft, nontender, and nondistended. There is no rebound, voluntary guarding, or rigidity. : Deferred. No Souza. EXTREMITIES: Non-edematous and not cyanotic. No clubbing. Good capillary refill. SKIN: No skin breakdown. Vital Signs (last 8hr) Date Time Temp Pulse Resp B/P (MAP) Pulse Ox O2 Delivery O2 Flow Rate FiO2 06/29/24 09:31 68 100 06/29/24 07:28 80 100 06/29/24 04:00 91 Ventilator+ 100 06/29/24 03:58 54 100 06/29/24 03:21 80 34 LABS: Laboratory: Test 06/29/24 06:05 06/29/24 05:27 06/29/24 03:53 06/28/24 21:26 Range/Units Whole Blood Glucose 160 H 70-110 MG/DL Blood Gas Specimen Type Arterial Arterial Blood pH 7.275 L 7.350-7.450 Arterial Blood Partial Pressure CO2 60 *H 32-45 mmHg Arterial Blood Partial Pressure O2 47.1 *L 83.0-108.0 mmHg Arterial Blood HCO3 27.2 21.0-28.0 mmol/L Arterial Blood Oxygen Saturation 76.6 L 94.0-98.0 % Arterial Blood Base Excess -1.0 -2.0-3.0 mmol/L Blood Gas Temperature 37.0 35.5-37.0 CELSIUS Blood Gas Respiration Rate 36.0 min. Blood Gas Vent Mode PC PIP 30 ROOM AIR FiO2 100.0 % Blood Gas PEEP 10 cm H2O Blood Gas Specimen Comment RN, AL White Blood Count 4.5 L 4.8-10.8 K/uL Red Blood Count 2.56 L 4.00-5.50 MIL/uL Hemoglobin 8.6 L 12.0-16.0 g/dL Hematocrit 26.0 L 36-48 % Mean Corpuscular Volume 101.6 H 79-99 fL Mean Corpuscular Hemoglobin 33.6 H 27.0-33.0 pg Mean Corpuscular Hemoglobin Concent 33.1 32.0-36.0 g/dL Red Cell Distribution Width 14.2 11.0-15.5 % Platelet Count 72 L 130-400 K/uL Mean Platelet Volume 10.6 H 7.5-10.5 fL Immature Granulocyte % (Auto) 2.2 H 0-1 % Neutrophils (%) (Auto) 95.5 H 40.0-77.0 % Lymphocytes (%) (Auto) 1.6 L 21.0-51.0 % Monocytes (%) (Auto) 0.7 L 3.0-13.0 % Eosinophils (%) (Auto) 0.0 0.0-8.0 % Basophils (%) (Auto) 0.0 0.0-5.0 % Neutrophils # (Auto) 4.3 1.8-7.7 K/uL Lymphocytes # (Auto) 0.1 L 1.0-4.8 K/uL Monocytes # (Auto) 0.0 L 0.1-1.0 K/uL Eosinophils # (Auto) 0.00 0.00-0.70 K/uL Basophils # (Auto) 0.00 0.00-0.20 K/uL Absolute Immature Granulocyte (auto 0.10 0-1 K/uL Nucleated Red Blood Cells 0.0 0.0-0.19 % Sodium Level 139 136-145 mmol/L Potassium Level 5.0 3.5-5.1 mmol/L Chloride Level 103 101-111 mmol/L Carbon Dioxide Level 33 H 21-32 mmol/L Blood Urea Nitrogen 106 *H 7-18 mg/dL Creatinine 2.7 H 0.5-1.0 mg/dL Glomerular Filtration Rate Calc 21 >90 mL/min Random Glucose 159 H 70-105 mg/dL Total Calcium 6.9 L 8.5-10.1 mg/dL Magnesium Level 2.10 1.80-2.40 mg/dL Total Bilirubin 0.4 # 0.2-1.0 mg/dL Aspartate Amino Transf (AST/SGOT) 63 H 10-37 U/L Alanine Aminotransferase (ALT/SGPT) 124 #H 12-78 U/L Alkaline Phosphatase 119 50-136 U/L Total Protein 4.0 L 6.0-8.3 g/dL Albumin 1.6 L 3.5-5.0 g/dL Bedside Glucose Comment Stat Lab Glu Request Bedside Glucose #2 Comment Protocol Initiated Test 06/28/24 19:10 06/28/24 04:02 06/27/24 17:48 Range/Units Hemoglobin (Blood Gas) 7.7 L 12.0-16.0 g/dL Sodium (Blood Gas) 135 L 136-145 MMOL/L Bedside Potassium (Blood Gas) 4.9 H 3.4-4.5 MMOL/L Bedside Chloride (Blood Gas) 98 98-107 MMOL/L Bedside Glucose (Blood Gas) 140 H 65-95 MG/DL Bedside Ionized Calcium (Blood Gas) 1.01 L 1.15-1.33 MMOL/L Bedside Lactic Acid (Blood Gas) 0.89 H 0.36-0.75 MMOL/L Uric Acid 5.3 2.6-7.2 mg/dL Phosphorus Level 5.7 H 2.5-4.9 mg/dL Thyroid Stimulating Hormone (TSH) 0.18 #L 0.36-3.74 uIU/mL Urine Osmolality 330 50-1200 mOsm/kg Urine Random Creatinine 61.07 30-135 mg/dL Urine Random Sodium 38 L 40-220 mmol/l Urine Random Potassium 26 25-125 mmol/L Urine Random Chloride 48 L 110-250 mmol/L Current Medications Medications (Trade) Dose Ordered Sig/Julita Route PRN Reason Start Time Stop Time Status Last Admin Dose Admin Acetaminophen (TYLenol 650MG ELIXIR) 650 mg Q6H PRN PO MILD PAIN (1-3) 06/04/24 08:30 07/04/24 08:29 06/10/24 20:07 650 MG Acetaminophen (TYLenol 650MG SUPPOSITORY) 650 mg Q6H PRN RC MILD PAIN (1-3) 05/23/24 20:30 06/22/24 20:29 DC Acetylcysteine (MUComyst 20% 4ML) 400mg = 2ml [id number] IH 06/02/24 00:00 06/05/24 15:52 DC 06/05/24 11:35 200 MG Albumin Human 50 ml @ 0 mls/hr Q8H IV 06/27/24 20:00 06/28/24 11:00 DC 06/28/24 03:42 100 MLS/HR Albuterol (DUOneb) 1 udvial [id number] IH 05/24/24 00:00 06/10/24 10:28 DC 06/10/24 06:45 1 UDVIAL Alprazolam (XANax 0.5MG) 0.5 mg Q8H PRN PO ANXIETY 06/10/24 13:30 07/10/24 13:29 06/25/24 06:30 0.5 MG Artificial Tears (Artificial Tears) 1 DROP OR AD Q8H OU 06/11/24 14:30 07/11/24 14:29 06/29/24 08:59 1 DROP Azithromycin 250 ml @ 250 mls/hr Q24H IVPB 05/24/24 17:00 05/24/24 14:41 DC Azithromycin 250 ml @ 250 mls/hr Q24H STAT IVPB 05/23/24 17:17 05/24/24 14:41 DC 05/23/24 17:45 250 MLS/HR Benzocaine (Cepacol Sore Throat Lozenge) 1 each Q4H PRN MM SORE THROAT 06/08/24 10:00 07/08/24 09:59 06/09/24 07:44 1 EACH Bisacodyl (DulcoLAX) 10 mg DAILY PRN RC CONSTIPATION 06/08/24 14:00 07/08/24 13:59 06/23/24 10:00 10 MG Bumetanide (Bumex 1mg Vial) 1 mg Q8H IVP 06/28/24 22:00 07/28/24 21:59 06/29/24 05:54 1 MG Cadexomer Iodine (Iodosorb Gel 40gm) 1 APPL TO RIGHT FAC... DAILY TP 06/19/24 09:00 07/18/24 08:59 06/29/24 09:00 1 APPL Cadexomer Iodine (Iodosorb Gel 40gm) 1 appl DAILY TP 06/18/24 09:00 06/19/24 07:23 DC 06/18/24 14:09 1 APPL Calcium Gluconate 1 gm/Sodium Chloride 100 ml @ 0 mls/hr PROTOCOL IV 06/27/24 10:30 07/27/24 10:29 06/28/24 00:08 200 MLS/HR Cefepime HCl (MAXipime 2 gm vial) 2 gm Q12H IVPB 05/24/24 15:00 06/03/24 14:59 DC 06/03/24 03:18 2 GM Ceftriaxone Sodium (ROCEphine 1G INJ) 1 gm Q24H IVPB 05/24/24 17:30 05/24/24 14:41 DC Chlorhexidine Gluconate (Peridex) 15 ml Q6H MM 06/07/24 17:00 06/11/24 14:27 DC 06/10/24 12:22 15 ML Chlorhexidine Gluconate (Peridex) 15 ml Q8H MM 06/11/24 14:30 06/25/24 14:29 DC 06/25/24 06:31 15 ML Cisatracurium Besylate (Nimbex) ONCE IVP 06/11/24 14:30 06/11/24 15:57 DC Cisatracurium Besylate 100 mg/ Sodium Chloride 100 ml @ 0 mls/hr PROTOCOL IV 06/11/24 23:30 06/23/24 16:20 DC 06/17/24 09:27 14.94 MLS/HR Cisatracurium Besylate 100 mg/ Sodium Chloride 100 ml @ 0 mls/hr PROTOCOL IV 06/23/24 16:30 06/23/24 18:43 DC 06/23/24 16:46 2.6 MLS/HR Clotrimazole (Mycelex) 10 mg TID MM 06/04/24 21:00 06/14/24 08:39 DC 06/13/24 20:28 10 MG Dexmedetomidine/ Sodium Chloride (PRECEdex 400MCG/ 100ML-NS) 400 mcg PROTOCOL IV 06/10/24 19:30 06/27/24 09:26 DC 06/25/24 05:08 400 MCG Dexmedetomidine/ Sodium Chloride (PRECEdex 400MCG/ 100ML-NS) 400 mcg PROTOCOL IV 06/27/24 09:30 07/27/24 09:29 06/29/24 04:31 400 MCG Diphenhydramine HCl (BENAdryl INJ) 25 mg Q6H PRN IV ITCHING 06/23/24 19:00 07/23/24 18:59 06/23/24 18:54 25 MG Dobutamine HCl/ Dextrose 250 ml @ 0 mls/hr PROTOCOL IV 06/12/24 16:30 06/12/24 16:53 DC Doxycycline Hyclate 250 ml @ 125 mls/hr Q12H IV 05/24/24 16:30 06/03/24 16:29 DC 06/03/24 04:23 125 MLS/HR Enoxaparin Sodium (Lovenox 80mg) 40 mg DAILY SQ 06/15/24 09:00 06/15/24 09:30 DC Enoxaparin Sodium (Lovenox 80mg) 80 mg BID SQ 06/11/24 09:00 06/14/24 23:28 DC 06/14/24 20:33 80 MG Enoxaparin Sodium (Lovenox) 40 mg DAILY SQ 06/15/24 09:30 07/15/24 09:29 Hold 06/27/24 08:19 40 MG Enoxaparin Sodium (Lovenox) 40 mg Q24H SQ 05/23/24 21:00 06/11/24 04:36 DC 06/10/24 20:07 40 MG Famotidine (Pepcid 20mg Vial) 20 mg DAILY IV 05/24/24 09:00 06/14/24 08:39 DC 06/13/24 08:15 20 MG Fentanyl Citrate 2500 mcg/Sodium Chloride 250 ml @ 0 mls/hr AD PRN IV TITRATE icu sedation 06/27/24 20:00 06/27/24 20:03 DC Fentanyl Citrate 2500 mcg/Sodium Chloride 250 ml @ 0 mls/hr AD PRN IV TITRATE 06/17/24 05:30 06/17/24 05:18 DC Fentanyl/Sodium Chloride 250 ml @ 0.1 mls/hr PROTOCOL IV 06/12/24 00:00 06/17/24 00:00 DC 06/16/24 17:36 0.1 MLS/HR Fentanyl/Sodium Chloride 250 ml @ 0 mls/hr AD PRN IV ICU SEDATION 06/17/24 05:30 06/22/24 05:29 DC 06/21/24 19:51 30 MLS/HR Fentanyl/Sodium Chloride 250 ml @ 0 mls/hr PROTOCOL IV 06/27/24 20:30 07/02/24 20:29 06/29/24 06:03 35 MLS/HR Fentanyl/Sodium Chloride 250 ml @ 0 mls/hr PROTOCOL IV 06/22/24 15:00 06/27/24 14:59 DC 06/27/24 12:13 35 MLS/HR Fluconazole (DiFLUCan 100 mg TAB) 200 mg DAILY PO 06/05/24 09:00 07/05/24 08:59 06/29/24 08:57 200 MG Fluconazole/ Sodium Chloride 100 ml @ 100 mls/hr DAILY IV 05/26/24 09:00 05/27/24 15:57 DC 05/27/24 09:07 100 MLS/HR Furosemide (LASix 20MG VIAL) 20 mg DAILY IV 05/31/24 09:00 06/07/24 13:18 DC 06/03/24 08:38 20 MG Furosemide (LASix 20MG VIAL) 20 mg DAILY IV 06/17/24 10:00 06/17/24 12:13 DC 06/17/24 09:46 20 MG Furosemide (LASix 20MG VIAL) 20 mg Q12H IV 06/11/24 11:00 06/13/24 09:31 DC 06/12/24 21:54 20 MG Furosemide (LASix 20MG VIAL) 20 mg Q12H IV 06/17/24 22:00 06/18/24 10:01 DC 06/18/24 09:44 20 MG Furosemide (LASix 20MG VIAL) 20 mg Q8H IV 06/13/24 09:30 06/16/24 11:00 DC 06/16/24 08:44 20 MG Furosemide (LASix 20MG VIAL) 20 mg Q8H IV 06/19/24 17:00 06/26/24 11:05 DC 06/26/24 09:13 20 MG Ganciclovir Sodium 250 mg/ Sodium Chloride 100 ml @ 100 mls/hr Q12H IV 06/27/24 21:00 06/28/24 19:50 DC 06/28/24 09:37 100 MLS/HR Ganciclovir Sodium 250 mg/ Sodium Chloride 100 ml @ 100 mls/hr Q24H IV 06/29/24 09:00 07/29/24 08:59 06/29/24 09:00 100 MLS/HR Ganciclovir Sodium 430 mg/ Sodium Chloride 100 ml @ 100 mls/hr Q12H IV 06/13/24 09:00 06/27/24 18:34 DC 06/27/24 11:41 100 MLS/HR Ganciclovir Sodium 500 mg/ Sodium Chloride 100 ml @ 100 mls/hr Q12H IV 06/11/24 18:00 06/11/24 15:48 DC Ganciclovir Sodium (Ganciclovir Sodium) 500 mg Q12H IV 06/12/24 17:00 06/13/24 08:35 DC Guaifenesin/ Dextromethorphan (RobiTUSSin DM 200/20MG 10ML) 10 ml Q4H PRN PO COUGH 05/23/24 20:30 06/22/24 20:29 DC 06/10/24 20:07 10 ML Home Med (Home Medication) BIKTARVY (1 TAB) Q24H PO 06/24/24 17:00 06/28/24 14:57 DC 06/27/24 17:08 1 EACH Hydralazine HCl (APRESOLine 20MG INJ) 10 mg Q4H PRN IV ADMINISTER FOR SBP > 160 06/26/24 16:30 07/26/24 16:29 06/26/24 16:27 10 MG Hydrocortisone Sodium Succinate (Solu-corTEF 100MG) 100 mg Q8H IV 06/11/24 05:00 06/14/24 08:39 DC 06/14/24 06:13 100 MG Hydroxyzine HCl (ATArax 25MG TAB) 25 mg TID PRN PO ITCHING 06/10/24 14:00 07/10/24 13:59 06/27/24 08:20 25 MG Insulin Glargine (LANtus 100 UNITS/ML 10 ML VIAL) 15 units BID@0730,2100 SQ 06/27/24 21:00 07/27/24 20:59 06/28/24 22:02 15 UNITS Insulin Human Regular (humuLIN R 100 UNIT/ML 3ML) INSULIN SLIDING SCAL... ACHS SQ 06/19/24 16:30 06/20/24 15:07 DC 06/20/24 12:30 5 UNIT Insulin Human Regular (humuLIN R 100 UNIT/ML 3ML) INSULIN SLIDING SCAL... Q6H6 SQ 06/20/24 18:00 07/19/24 16:29 06/28/24 12:40 2 UNIT Ipratropium [place] (AtrovENT UD) 0.5 MG [id number] IH 06/10/24 14:00 06/27/24 14:53 DC 06/27/24 14:01 0.5 MG Ipratropium [place] (AtrovENT UD) 0.5 MG [id number] PRN IH SHORTNESS OF BREATH 06/27/24 15:00 07/10/24 13:59 06/29/24 03:21 0.5 MG Lactated Ringer's (Lactated Ringers 1000ml) 500 ml ONCE IV 06/02/24 20:00 06/02/24 19:54 DC Lactulose (Constulose 20gm/ 30ml Udcup) 20 gm Q8H PO 06/28/24 11:00 07/28/24 10:59 06/29/24 03:13 20 GM Levofloxacin/ Dextrose 100 ml @ 100 mls/hr Q24H IV 05/24/24 15:00 05/24/24 16:16 DC Magnesium Sulfate 50 ml @ 0 mls/hr PROTOCOL PRN IV hypomagnesemia 05/28/24 08:00 06/27/24 07:59 DC 06/11/24 05:26 50 MLS/HR Meropenem (Merrem 1gm) 1 gm Q8H IVPB 06/13/24 15:00 06/18/24 21:57 DC 06/18/24 15:34 1 GM Meropenem (Merrem 1gm) 1 gm Q8H IVPB 06/19/24 01:00 06/21/24 00:59 DC 06/20/24 16:50 1 GM Meropenem (Merrem) 1 gm Q8H IVPB 06/11/24 15:00 06/13/24 11:52 DC 06/13/24 08:14 1 GM Meropenem 1 gm/ Sodium Chloride 100 ml @ 33.333 mls/ hr Q8H IV 06/11/24 14:30 06/11/24 14:28 DC Methylprednisolone Sodium Succinate (Solu-medROL 40MG) 20 mg Q12H IVP 06/05/24 07:00 06/09/24 09:13 DC 06/09/24 07:25 20 MG Methylprednisolone Sodium Succinate (Solu-medROL 40MG) 40 mg Q12H IVP 05/28/24 18:00 05/29/24 16:45 DC 05/29/24 05:32 40 MG Methylprednisolone Sodium Succinate (Solu-medROL 40MG) 40 mg Q6H IVP 05/29/24 16:30 06/04/24 16:44 DC 06/04/24 11:13 40 MG Methylprednisolone Sodium Succinate (Solu-medROL 40MG) 40 mg Q6H IVP 06/04/24 18:00 06/05/24 00:24 DC 06/04/24 23:48 40 MG Methylprednisolone Sodium Succinate (Solu-medROL 40MG) 40 mg Q8H IVP 05/24/24 01:00 05/25/24 21:51 DC 05/25/24 17:28 40 MG Methylprednisolone Sodium Succinate (Solu-medROL 40MG) 60 mg Q6H IVP 05/25/24 22:00 05/28/24 02:25 DC 05/27/24 23:55 60 MG Methylprednisolone Sodium Succinate (Solu-medROL 40MG) 60 mg Q6H IVP 05/28/24 06:00 05/28/24 08:27 DC 05/28/24 06:47 60 MG Methylprednisolone Sodium Succinate (Solu-medROL 40MG) 60 mg Q6H IVP 06/11/24 02:30 06/11/24 04:23 DC 06/11/24 02:46 60 MG Methylprednisolone Sodium Succinate (Solu-medROL 40MG) 80 mg Q8H IVP 06/14/24 17:00 07/14/24 08:59 06/29/24 09:12 80 MG Methylprednisolone Sodium Succinate (Solu-medROL 125MG) 80 mg Q8H IVP 06/14/24 09:00 06/14/24 14:53 DC 06/14/24 08:48 80 MG Metoclopramide HCl (regLAN 10MG/ 10ML UD CUP) 5 mg TIDAC PO 06/22/24 07:30 07/22/24 07:29 06/29/24 08:57 5 MG Metronidazole/ Sodium Chloride (flaGYL) 500 mg Q8H IV 05/25/24 22:00 05/25/24 21:56 DC Midazolam HCl 50 ml @ 0 mls/hr AD PRN IV TITRATE 06/12/24 01:30 06/12/24 08:30 DC 06/12/24 02:30 10 MLS/HR Midazolam HCl 100 ml @ 0 mls/hr AD PRN IV TITRATE 06/12/24 09:00 07/12/24 01:29 06/29/24 00:48 7 MLS/HR Morphine Sulfate (morPHINE 4MG SYG) 4 mg Q4H PRN IM RESPIRATORY SYMPTOMS 06/11/24 03:30 06/14/24 23:33 DC 06/11/24 03:27 4 MG Norepinephrine 250 ml @ 0 mls/hr PROTOCOL IV 06/23/24 21:00 07/23/24 20:59 Ondansetron HCl (zoFRAN 4MG INJ) 4 mg Q6H PRN IV NAUSEA/VOMITING 05/23/24 20:30 06/22/24 20:29 DC Pantoprazole Sodium (PROTonix 40MG INJ) 40 mg BID IVP 06/12/24 21:00 07/12/24 20:59 06/29/24 08:57 40 MG Pharmacy Profile Note (Lace Assessment) 1 each AD MISC 06/27/24 18:00 06/27/24 18:40 DC Pharmacy Profile Note (Lace Assessment) 1 each AD MISC 06/17/24 16:30 06/17/24 16:27 DC Pharmacy Profile Note (Pharmacy Communication) 1 each ONCE MISC 06/11/24 14:30 06/11/24 15:53 DC Pharmacy Profile Note (Pharmacy Communication) 1 each ONCE MISC 06/11/24 20:30 06/11/24 20:14 DC Pharmacy Profile Note (Pharmacy Communication) 1 each ONCE MISC 06/12/24 17:00 06/12/24 17:07 DC Pharmacy Profile Note (Pharmacy Communication) 1 each ONCE MISC 06/24/24 13:00 06/24/24 12:43 DC Pharmacy Profile Note (Pharmacy Communication) 1 each ONCE MISC 06/23/24 20:30 06/23/24 20:32 DC Phenylephrine HCl 10 mg/Sodium Chloride 251 ml @ 0 mls/hr AD PRN IV DIRECTED 06/11/24 03:00 06/12/24 18:12 DC 06/12/24 14:10 47 MLS/HR Phenylephrine HCl 50 mg/Sodium Chloride 250 ml @ 0 mls/hr PROTOCOL PRN IV PROTOCOL 06/12/24 18:00 07/12/24 17:59 06/13/24 08:57 12.45 MLS/HR Polyethylene Glycol (MIRalax 3350 17 GM POWD.PACK) 17 gm DAILY PO 06/22/24 09:00 07/22/24 08:59 06/29/24 08:57 17 GM Potassium Chloride 100 ml @ 100 mls/hr AD PRN IV POTASSIUM PROTOCOL 05/28/24 08:00 06/27/24 07:59 DC Potassium Chloride (K-Dur/Klor-Con 20meq) 20 meq AD PRN PO POTASSIUM PROTOCOL 05/28/24 08:00 06/27/24 07:59 DC Potassium Chloride (KCl 10% Elixir 20meq/15ml) 20 meq AD PRN PO POTASSIUM PROTOCOL 05/28/24 08:00 06/27/24 07:59 DC Prednisone (deltaSONE/ oraSONE 20MG TAB) 20 mg DAILY PO 06/10/24 09:00 06/14/24 08:39 DC 06/13/24 08:15 20 MG Rocuronium [place] 100 mg/ Sodium Chloride 100 ml @ 0 mls/hr PROTOCOL IV 06/24/24 08:30 06/25/24 02:44 DC 06/25/24 01:00 0 MLS/HR Rocuronium [place] 200 mg/ Sodium Chloride 200 ml @ 0 mls/hr PROTOCOL IV 06/25/24 03:00 07/24/24 08:29 06/28/24 18:45 42 MLS/HR Rocuronium [place] (ZemuRON) 10 mg Q1H PRN IV RESP DISTRESS/VENT DISYNCHRONY 06/11/24 20:30 06/11/24 23:29 DC 06/11/24 20:33 10 MG Rocuronium [place] (ZemuRON) 50 mg Q4H PRN IV VENT DYSSYNCHRONY 06/17/24 16:30 06/23/24 16:19 DC 06/23/24 04:03 50 MG Sodium Chloride 500 ml @ 500 mls/hr Q1H IV 06/02/24 20:00 06/02/24 20:59 DC 06/02/24 21:34 500 MLS/HR Sodium Chloride 1,000 ml @ 0 mls/hr Q0M IV 06/26/24 19:00 07/26/24 18:59 Sodium Chloride 1,000 ml @ 75 mls/hr [id number] IV 06/07/24 13:30 06/10/24 17:02 DC 06/10/24 09:05 75 MLS/HR Sodium Chloride (Sodium Chloride) 1,000 mg BIDAC PO 06/07/24 16:30 06/09/24 07:28 DC 06/08/24 16:58 1,000 MG Sodium Chloride (Sodium Chloride) 1,000 mg BIDAC PO 06/09/24 07:30 06/12/24 16:35 DC 06/12/24 12:30 1,000 MG Sodium Chloride (Sodium Chloride) 1,000 mg Q12H PO 06/12/24 21:00 07/09/24 07:29 06/29/24 08:57 1,000 MG Sodium Zirconium Cyclosilicate (Lokelma) 5 gm DAILY10 PO 06/08/24 10:30 06/10/24 10:29 DC 06/08/24 10:50 5 GM Thiamine HCl (Vitamin B-1) 100 mg DAILY IVP 06/28/24 09:00 07/28/24 08:59 06/29/24 08:56 100 MG Trimethoprim/ Sulfamethoxazole (BactRIM DS) 1 tab BID PO 05/26/24 21:00 05/29/24 16:18 DC 05/29/24 08:07 1 TAB Trimethoprim/ Sulfamethoxazole (BactRIM DS) 2 tab TID PO 05/29/24 16:30 06/05/24 20:59 DC 06/05/24 14:55 2 TAB Trimethoprim/ Sulfamethoxazole (BactRIM DS) 2 tab TID PO 06/06/24 09:30 06/11/24 21:54 DC 06/10/24 13:58 2 TAB Trimethoprim/ Sulfamethoxazole 160 mg/Dextrose 250 ml @ 333.333 mls/hr BID@0600,1800 IV 06/22/24 06:00 06/22/24 17:17 DC 06/22/24 06:25 333.333 MLS/HR Trimethoprim/ Sulfamethoxazole 160 mg/Dextrose 250 ml @ 333.333 mls/hr DAILY IV 06/23/24 09:00 07/02/24 05:59 06/29/24 08:58 333.333 MLS/HR Trimethoprim/ Sulfamethoxazole 320 mg/Dextrose 500 ml @ 333.333 mls/hr Q8H IV 06/19/24 00:30 06/21/24 21:30 DC 06/21/24 16:16 333.333 MLS/HR Trimethoprim/ Sulfamethoxazole 320 mg/Dextrose 500 ml @ 500 mls/hr Q8H IV 06/11/24 22:30 06/12/24 16:35 DC 06/12/24 06:39 500 MLS/HR Trimethoprim/ Sulfamethoxazole 320 mg/Dextrose 500 ml @ 500 mls/hr Q8H IV 06/12/24 18:00 06/13/24 11:13 DC 06/13/24 05:30 500 MLS/HR Trimethoprim/ Sulfamethoxazole 320 mg/Dextrose 500 ml @ 500 mls/hr Q8H IV 06/13/24 13:30 06/18/24 21:55 DC 06/18/24 14:08 500 MLS/HR Trimethoprim/ Sulfamethoxazole 320 mg/Dextrose 500 ml @ 500 mls/hr Q8H IV 06/18/24 11:59 06/19/24 00:56 DC 06/18/24 11:59 500 MLS/HR Valganciclovir (ValGANCIClovir HCL) 900 mg BID PO 06/11/24 21:00 06/13/24 08:37 DC Wound Care/ Dressing Products (Venelex Ointment) 1 VOLODYMYR AD TID TP 06/14/24 14:00 07/14/24 13:59 06/29/24 09:00 1 GM DIAGNOSTICS / RADIOLOGY: [ ] ASSESSMENT: Acute hypoxemic respiratory failure, POA Bilateral lower lobe bacterial pneumonia + MRSA POA, +Azra Suspected PCP PNA based on CT findings vs viral/Atypical PNA . 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 Currently the patient on FiO2 100%. Today creatinine at 2.2, continue to follow Nephrology input and recommendations. Continue fentanyl, Versed, Precedex, and rocuronium. Continue broad-spectrum antibiotics Continue gancyclovir IV q.12 hours. Continue Solu-Medrol 80 mg IV q.8 hours Continue to follow infectious disease input and recommendation Continue to follow daily chest x-ray and ABG. Further orders per hospitalization course Prognosis of this patient remains poor and guarded. Son at bedside during my visit, updated, all questions answered. Disposition: Pending improvement in clinical condition. time spent: > 35 min GAIL WALDRON MD Jun 29, 2024 10:38
[2024-06-29 11:29] LABS: ABG BASE EXCESS -0.6 mmol/L (-2.0-3.0); ABG HCO3 28.9 mmol/L (21.0-28.0); ABG OXYGEN SATURATION 92.7 % (94.0-98.0); ABG PCO2 82 mmHg (32-45); ABG PH 7.163 (7.350-7.450); CARBON MONOXIDE 1.4 % (0.5-1.5); DEVICE COMMENT RN NIOBE; HHb 7.1; PO2, ARTERIAL BG 82.9 mmHg (83.0-108.0); VENT MODE, BG ACPC 30 (ROOM AIR)
[2024-06-29] MEDS: BUMETANIDE 1MG/4ML VIAL IVP ONE (11:32)
--- NOTE | 2024-06-29 12:13 | PN ---
[facility] PROGRESS NOTE Date Patient Seen: Jun 29, 2024 Time of Visit: 12:13 Supervising Physician: Dr. Tiffani Kohler Primary Care Physician: Stu Foss MD Outpatient Specialists: Inpatient Consults: Pulmonology PROBLEM LIST: - Acute hypoxic hypercapnic respiratory failure on mechanical ventilator support via ETT - Severe Adult Respiratory Distress Syndrome - MODS (respiratory, Liver , and kidneys) - RADHA - Hyperkalemia improved - Transaminitis - Bilateral lower lobe pneumonia with positive MRSA and confirmed PCP - Disseminated herpes simplex viral infection - Newly diagnoses HIV with AIDS - Morbid obesity, BMI 31.4 - Severe protein calorie malnutrition - Former tobacco use disorder INTERVAL HISTORY: 06/27/24- The patient continues critically ill. Continues on mechanical ventilation sedated on fentanyl 300 micrograms/hour, Versed 10 milligrams/hour and rocuronium per per lysing agent. She has been hemodynamically stable not on any pressors current heart rate in the 60s respiratory rate 34 on the vent saturating 91% on FiO2 100% peep of 8. Vent mode pressure control of 35, respiratory rate of 34. ABGs improved this morning pH of 7.35 pCO2 of 63 PO2 of 65.4 and bicarb of 34.6. Kidneys are worsening with poor urine output of 175 mL in the last 24 hours. Nephrology has been consulted and pharmacy has been consulted for adjustment of antibiotics to creatinine clearance. Cr of 1.6 gfr of 39 and BUN of 75. Potassium of 5.3 and corrected with lokelma x1. WBC WBCs have normalized 9.9 H&H ishave normal 9.5/29.6i platelet count is 132zed, hh s on CBC there is improvementt withabl white count of 9.9 H&H 9.5e, platelet count is normal. Chest XR with increased pulmonary vascular congestion. 06/28/24-patient critically ill analysis. Continues on mechanical ventilation sedated on fentanyl, Versed and generalized with rocuronium drip 0 peep of per ventilation synchrony sedation. Patient has been hemodynamically stable but this morning had to be placed back on Levophed at 0.01 micrograms/kilogram per minute with. Blood pressure 127/73, HR 76, RR 36 afebrile with T low of 96.8, due due to hypothermia will send pancultures. Urine culture output 25ml in 24 hours, Senior Loan Processor following pt. + 3.6 L. chest XR with worsening viviana vascular congestion. and pulmonary infiltrates. WBC's 4.2, HH 7.6 over 22.4 likely decreased HH from hypervolemia. On chemistry Carbon dioxide 39, BUN 94, cr 2.2 GFR 27. Vent settings adjusted Pressure control Max IP 30 RR 36, FIO2 of 90% peep of 5. Continue to adjust per ABG. 06/29/24 @ 0515: This is an additional visit in reference to critical care call from bedside RN Ilya that they have been bagging the patient since 230am due to sustaining desaturation. Coordination of care rendered and discussed with bedside RNMonica and patient's son. Patient was given Acetylcysteine neb, and a bout to receive extra dose of Solumedrol and scheduled Bumex. Vent setting was adjusted and maxed to FiO2 of 100%, PEEP of 10 and rate of 36 without significant improvement on her saturation. Discussed with my attending regarding the ABG result and sent the CXR image. Instruction received to inform the family that she is not going to make it and nothing much to do at all. I spoke to the family at bedside and told them about the situation and patient's unresponsiveness to treatment being on ventilator for about 2 weeks now. I discussed about code status and options for comfort measures considering the futility of the patient's condition. Family will have to meet to finalize the decision, nothing was confirmed at this time. The son, who is the decision-maker processes the information given to him. Patient's saturation and BP continues to decline. 06/29/2024, follow up visit: At the time of my evaluation, the patient was lying in bed. She remains on sedation with fentanyl/Versed/Precedex and paralytic therapy with rocuronium drip, RASS scale of -5. Per the staff nurse, the patient had a respiratory events overnight with desaturation after attempting to repositioned the patient. Management of the acute condition, included acetylcystine nebulization, Solu-Medrol, Bumex and vent setting adjustment. There was only minimal improvement achieved. ABG this a.m. showed a pH of 7.2, pCO2 of 60, PO2 of 47.1 and HC03 of 76.6. The patient remained on vent setting AC PC with pressure support of 30, rate of 36, peep of 10 and FiO2 of 100%. Cardiac-aleman, the patient is also on a Levophed drip at 0.03 blood pressure with a map of 115. Patient is feeding through a OGT and also receiving water flushes. Chemistry panel showed a sodium of 139, potassium of 5.0, chloride of 103, CO2 33, BUN of 106 and a creatinine of 2.7 with blood glucose of 160. T bili of 0.4, AST 63, ALT 124 and a alk-phos of 117. The patient remains on Bumex1 mg IV q.8 hours and is voiding through a Souza catheter. Documented I&Os showed a voided output of 20 mL and a net balance of 361.2. Because of her failing kidneys nephrology was consulted and has said the patient is not a candidate for hemodialysis. No other complaint. REVIEW OF SYSTEMS: Unable to obtain ROS from patient due to patient's medical condition. PHYSICAL EXAM: GENERAL: Sedated and paralyzed, intubated currently semi-melgar's position : Oliguric and concentrated urine NEURO: Intubated sedated and paralyzed. Other physical exam was deferred Vital Signs (last 8hr) Date Time Temp Pulse Resp B/P (MAP) Pulse Ox O2 Delivery O2 Flow Rate FiO2 06/29/24 11:48 62 100 06/29/24 11:46 96.1 62 42 107/57 (74) 97 112/58 (76) 06/29/24 10:46 61 40 98/53 (68) 95 108/54 (72) 06/29/24 10:38 61 41 99/54 (69) 95 105/56 (72) 06/29/24 10:36 61 41 96/51 (66) 95 122/55 (77) 06/29/24 09:46 71 36 111/58 (75) 97 134/58 (83) 06/29/24 09:31 68 100 06/29/24 08:46 65 41 105/57 (73) 97 111/65 (80) 06/29/24 07:46 81 41 148/76 (100) 97 135/84 (101) 06/29/24 07:28 80 100 06/29/24 07:00 73 37 155/79 (104) 94 06/29/24 07:00 100 LABS: Hematology Labs: Test 06/29/24 03:53 Range/Units White Blood Count 4.5 L 4.8-10.8 K/uL Red Blood Count 2.56 L 4.00-5.50 MIL/uL Hemoglobin 8.6 L 12.0-16.0 g/dL Hematocrit 26.0 L 36-48 % Mean Corpuscular Volume 101.6 H 79-99 fL Mean Corpuscular Hemoglobin 33.6 H 27.0-33.0 pg Mean Corpuscular Hemoglobin Concent 33.1 32.0-36.0 g/dL Red Cell Distribution Width 14.2 11.0-15.5 % Platelet Count 72 L 130-400 K/uL Mean Platelet Volume 10.6 H 7.5-10.5 fL Immature Granulocyte % (Auto) 2.2 H 0-1 % Neutrophils (%) (Auto) 95.5 H 40.0-77.0 % Lymphocytes (%) (Auto) 1.6 L 21.0-51.0 % Monocytes (%) (Auto) 0.7 L 3.0-13.0 % Eosinophils (%) (Auto) 0.0 0.0-8.0 % Basophils (%) (Auto) 0.0 0.0-5.0 % Neutrophils # (Auto) 4.3 1.8-7.7 K/uL Lymphocytes # (Auto) 0.1 L 1.0-4.8 K/uL Monocytes # (Auto) 0.0 L 0.1-1.0 K/uL Eosinophils # (Auto) 0.00 0.00-0.70 K/uL Basophils # (Auto) 0.00 0.00-0.20 K/uL Absolute Immature Granulocyte (auto 0.10 0-1 K/uL Nucleated Red Blood Cells 0.0 0.0-0.19 % Chemistry Labs: Test 06/29/24 06:05 06/29/24 03:53 06/28/24 21:26 06/28/24 04:02 Range/Units Whole Blood Glucose 160 H 70-110 MG/DL Sodium Level 139 136-145 mmol/L Potassium Level 5.0 3.5-5.1 mmol/L Chloride Level 103 101-111 mmol/L Carbon Dioxide Level 33 H 21-32 mmol/L Blood Urea Nitrogen 106 *H 7-18 mg/dL Creatinine 2.7 H 0.5-1.0 mg/dL Glomerular Filtration Rate Calc 21 >90 mL/min Random Glucose 159 H 70-105 mg/dL Total Calcium 6.9 L 8.5-10.1 mg/dL Magnesium Level 2.10 1.80-2.40 mg/dL Total Bilirubin 0.4 # 0.2-1.0 mg/dL Aspartate Amino Transf (AST/SGOT) 63 H 10-37 U/L Alanine Aminotransferase (ALT/SGPT) 124 #H 12-78 U/L Alkaline Phosphatase 119 50-136 U/L Total Protein 4.0 L 6.0-8.3 g/dL Albumin 1.6 L 3.5-5.0 g/dL Bedside Glucose Comment Stat Lab Glu Request Bedside Glucose #2 Comment Protocol Initiated Uric Acid 5.3 2.6-7.2 mg/dL Phosphorus Level 5.7 H 2.5-4.9 mg/dL Thyroid Stimulating Hormone (TSH) 0.18 #L 0.36-3.74 uIU/mL DIAGNOSTICS / RADIOLOGY RESULTS: [ ] PLAN Continue sedation with fentanyl, versed continue rocuronium drip to help with ventilator synchrony cessation. manage vent per abg maintain plateu pressure of < 30 as much possible Continue steroids Follow nephrology recommendations. pharmacy to adjust Bactrim and antiviral to Cr Clearance. Continue Atrovent q.4 hours. ABX per ID Panculture Son is POA 06/29/2024: For now, we are going to continue current sedation with fentanyl/Versed/Precedex and paralytic therapy with rocuronium drip. She will continue on the ventilator on AC PC with pressure support of 30, rate of 36, peep of 10 and FiO2 of 100%. I would like to repeat an ABG later today to follow the gas exchange pattern. Cardiac-aleman, the patient we will remain on a Levophed drip at 0.03 and we will continue to monitor the vital signs. She will continue nutritional support through a OGT with water flushes. Renal aleman, the patient will continue on diuretic challenge. Again information technology technician rounded today and highlighted that the patient is a high risk for hemodialysis. We will continue to monitor the urinary output for any improvement. We will monitor the hematologic parameters as well as for any coagulopathy. Biktarvy was initiated on 06/24/2024 and then discontinued on 06/28/2024. Per Infectious Disease specialist, she will currently continue on Ganciclovir/Bactrim/Fluconazole. Considering the futility of her condition, I do agree that the patient is critically ill with absent signs of recovery and her prognosis is very poor. This has been discuss with the family members, but are yet to make decisions/plans for end of life. We will continue to update family regarding her progress, we will continue to provide general supportive care, GI and DVT prophylaxis. Further orders per attending MD and hospital course. NEURO: Minimize central acting medications as possible. Fall Precautions. Well lighted room through the day and minimize interruptions through the night t o prevent acute delirium. PULMONARY: Supplemental 02 as needed Titrate Fio2 to keep Spo2 > or = 90% DuoNebs and CPT as needed IS hourly while awake for pulmonary hygiene Out of bed to chair as tolerated Ventilator settings: Assist-control pressure control, pressure control of 32, respiratory rate 34, FiO2 100% and PEEP of eight. CARDIOVASCULAR: Follow hemodynamics. Titrate vasopressor to keep MAP >65 or systolic blood pressure >95mmHg Telemetry LINES: CVC RT IJ Arterial line ET tube' FC OG tube GI & NUTRITION: Continue nutritional support Aspirations precautions Prokinetic agents and laxatives as needed KIDNEYS & ELECTROLYTES: Strict monitoring of intake and output Daily weights Avoid nephrotoxic agents Monitor electrolytes and replace as needed Goal urine output of 30mL/hr or 0.5mL/kg/hr ENDOCRINE: Maintain blood glucose between 100-180 at all times. Insulin sliding scale for blood glucose management INFECTIOUS DISEASE: Trend temperature. Clarke-culture if febrile. Sputum culture from 05/23/24 positive for MRSA, Betty albicans Pneumocystis carinii antigen positive Panculture: 06/02/24 Blood cultures Urine cultures Respiratory culture Antibiotics: Bactrim DS Fluconazole Valganciclovir HEMATOLOGY & COAGULATION: Monitor H&H. Keep Hgb > 7 Transfuse 1 unit of PRBC for Hgb < 7 Transfuse 1 pack of platelets of platelets < 20, 000 Watch for any signs and symptoms of bleeding SKIN: Pressure ulcer prevention per facility protocol Rehab: PT/OT Prophylaxis: GI: Pepcid DVT: Heparin Code Status: Full Resuscitation Disposition: ICU Other: Critical care time I personally spent 45 minutes of critical care time in treatment of this patient. This includes patient management, time at bedside, time reviewing tests, labs, appropriate images and studies, documentation, and patient care coordination. This time excludes separately billable procedures. DAYRON RUBIN NETWORK OPERATIONS SPECIALIST Jun 29, 2024 12:13
[2024-06-29 15:13] LABS: ABG BASE EXCESS -2.4 mmol/L (-2.0-3.0); ABG HCO3 26.3 mmol/L (21.0-28.0); ABG OXYGEN SATURATION 95.3 % (94.0-98.0); ABG PCO2 62 mmHg (32-45); ABG PH 7.245 (7.350-7.450); PO2, ARTERIAL BG 90.1 mmHg (83.0-108.0); VENT MODE, BG PC IP 30 (ROOM AIR)
--- NOTE | 2024-06-29 17:32 | PN ---
INFECTIOUS DISEASE FOLLOWUP NOTE DATE OF SERVICE: 06/29/2024 SUBJECTIVE: The patient is seen and examined at bedside today. The patient remained intubated on ventilatory support. Not tolerating turning or any activity. The patient is on vasopressor. FiO2 remained elevated. The patient with PEEP of 10. No bleeding tendency documented. The patient remained anuric. Biktarvy has been placed on hold due to renal failure. Family updated at the bedside. PHYSICAL EXAMINATION: VITAL SIGNS: Temperature 98.7. EYES: No icterus. Pupils equal and reactive. HENT: Dry oral mucosa. No oral thrush seen. NECK: Supple. No JVD or thyromegaly. LUNGS: Crackles bilaterally, no rhonchi. CARDIOVASCULAR SYSTEM: S1, S2, regular. No murmur heard. ABDOMEN: Soft. Bowel sound is present. Obese. CENTRAL NERVOUS SYSTEM: The patient is sedated, bedbound. SKIN: No rashes, no itchiness. LYMPHATIC: No peripheral lymphadenopathy. BACK: No deformity. Wound in the right gluteal area. HEMATOLOGIC: No bleeding or peripheral lesions seen. ASSESSMENT: A 49-year-old female with multiple problems which include: * Septic shock. * Methicillin-resistant Staphylococcus aureus pneumonia. * Pneumocystis jirovecii pneumonia. * Human immunodeficiency virus/acquired immunodeficiency syndrome. * Acute renal failure. * Obesity. * Right gluteal ulcer. * Anemia. PLAN: * Continue critical support. * Continue ventilatory support. * Continue pain management. * Continue DVT prophylaxis. * Monitor electrolytes. * Continue antiemetic. * Continue antibiotic. * Continue DVT prophylaxis. TID: [id number] RECEIPT: [id number]
[2024-06-29] MEDS: LACTULOSE 20 GM/30 ML UDCUP PO SCH (21:05)
[2024-06-29] MEDS: FENTanyl 1000MCG+NS 100ML 100 ML IV ONE (21:10)
[2024-06-30] VITALS (89 sets, daily range): BP systolic 83–149; BP diastolic 50–81; PULSE 46–80; RESP 16–44; TEMP 95.1–97.8; O2SAT 83–93
[2024-06-30] MEDS: FENTanyl 1000MCG+NS 100ML 100 ML IV SCH (04:28)
[2024-06-30 04:49] LABS: HEMATOCRIT 24.4 % (36-48); IMMATURE GRANULOCYTE ABSOLUTE 0.04 K/uL (0-1); LYMPHOCYTES # (AUTO) 0.1 K/uL (1.0-4.8); LYMPHOCYTES % (AUTO) 1.1 % (21.0-51.0); MEAN CORPUSCULAR HEMOGLOBIN 32.8 pg (27.0-33.0); MEAN CORPUSCULAR HGB CONC 32.8 g/dL (32.0-36.0); MONOCYTES % (AUTO) 0.4 % (3.0-13.0); NEUTROPHILS # (AUTO) 5.3 K/uL (1.8-7.7); NEUTROPHILS % (AUTO) 97.8 % (40.0-77.0); PLATELET COUNT (AUTO) 80 K/uL (130-400); RED BLOOD CELL COUNT(AUTO) 2.44 MIL/uL (4.00-5.50); RED CELL DISTRIBUTION WIDTH 13.9 % (11.0-15.5); WHITE BLOOD COUNT (AUTO) 5.4 K/uL (4.8-10.8)
[2024-06-30 05:06] LABS: ALBUMIN 1.5 g/dL (3.5-5.0); BILIRUBIN,TOTAL 0.3 mg/dL (0.2-1.0); CREATININE 2.8 mg/dL (0.5-1.0); POTASSIUM 5.3 mmol/L (3.5-5.1); TOTAL PROTEIN, SERUM 3.8 g/dL (6.0-8.3)
--- NOTE | 2024-06-30 08:49 | PN ---
INFECTIOUS DISEASE PROGRESS NOTE Date of Service: Jun 30, 2024 SUBJECTIVE: This is a 49-year-old female patient who was admitted with chief complaint of shortness of breaths. A chest x-ray done on admission showed left lower lung pneumoniae. A CT chest showed bilateral pulmonary infiltrates but no evidence of PE. 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 Tested for cytomegalovirus and the results came back positive. On 06/11/2024 patient went into acute hypoxic respiratory failure requiring intubation. Patient was seen and examined at bedside in the ICU room 208. Patient remains intubated and sedated with a FiO2 of 100% and patient is still saturating in the 80s. [facility] provider the HIV medication Biktarvy for patient, renal function however declined and the medication was put on hold. Patient is currently on ganciclovir and Bactrim IV. Can continue Ganciclovir for a total of 14 days then discontinue. We will continue to follow patient's care. PHYSICAL EXAM EYES: Anicteric. Pupils equal and reactive. HENT: No oral thrush seen, moist Oral mucosa. NG tube. Oropharyngeal lesions. NECK: Supple, no JVD or thyromegaly. RESPIRATORY: Mechanical ventilation.. CARDIOVASCULAR: S1, S2 regular. No murmur heard. ABDOMEN: Soft, non tender, bowel sounds present, no organomegaly. CENTRAL NERVOUS SYSTEM: Intubated. SKIN: No rashes, no swelling. LYMPHATICS: No peripheral lymphadenopathy. MUSCULOSKELETAL: No joint swelling, erythema or tenderness. EXTREMITIES: No cyanosis or clubbing. BACK: No deformity, no pressure ulcer. GENITOURINARY: No dysuria or hematuria. Souza catheter. Vital Sign (Last 12 Hours) 06/29/24 06/29/24 06/29/24 06/29/24 21:00 21:30 21:42 22:00 Pulse 73 74 73 68 Resp 37 37 23 B/P (MAP) 146/80 (102) 135/73 (93) 117/65 (82) Pulse Ox 90 90 90 FiO2 100 06/29/24 06/29/24 06/29/24 06/30/24 22:30 23:00 23:30 00:00 Pulse 73 74 59 Resp 38 39 B/P (MAP) 218/108 (144) 168/95 (119) 133/77 (95) Pulse Ox 87 87 89 93 O2 Delivery Ventilator+ FiO2 100 06/30/24 06/30/24 06/30/24 06/30/24 00:00 00:30 00:31 01:00 Temp 95.5 Pulse 67 65 66 65 Resp 40 39 39 B/P (MAP) 132/78 (96) 131/77 (95) 128/75 (92) Pulse Ox 93 93 94 FiO2 100 06/30/24 06/30/24 06/30/24 06/30/24 01:30 02:00 02:30 03:00 Pulse 48 50 46 55 Resp 40 40 32 16 B/P (MAP) 83/50 (61) 98/58 (71) 91/54 (66) 140/76 (97) Pulse Ox 90 90 92 91 06/30/24 06/30/24 06/30/24 06/30/24 03:28 03:30 04:00 04:00 Pulse 58 54 B/P (MAP) 131/72 (91) Pulse Ox 90 84 O2 Delivery Ventilator+ FiO2 100 100 100 06/30/24 06/30/24 06/30/24 06/30/24 04:00 04:30 05:00 05:30 Temp 95.2 Pulse 54 75 80 76 B/P (MAP) 125/70 (88) 149/81 (103) 145/78 (100) 114/64 (81) Pulse Ox 90 90 90 88 06/30/24 06/30/24 06/30/24 06/30/24 06:00 06:30 07:00 07:15 Pulse 67 58 59 67 Resp 36 B/P (MAP) 91/54 (66) 100/56 (71) 90/50 (63) 115/60 (78) Pulse Ox 86 84 84 84 06/30/24 06/30/24 06/30/24 06/30/24 07:30 07:35 07:45 08:00 Temp 96.8 Pulse 61 61 71 67 Resp 36 36 36 B/P (MAP) 100/55 (70) 143/74 (97) 120/63 (82) Pulse Ox 84 83 85 FiO2 100 100 06/30/24 06/30/24 08:13 08:15 Pulse Ox 85 O2 Delivery Ventilator+ FiO2 100 100 Intake & Output (last 24hrs) 06/29/24 06/29/24 06/30/24 15:00 23:00 07:00 Intake Total 92.2 ml 469.2 ml 1026.9 ml Output Total 30 ml Balance 92.2 ml 469.2 ml 996.9 ml LABS: Laboratory: Test 06/30/24 04:36 06/30/24 01:08 06/29/24 15:11 06/29/24 11:27 Range/Units White Blood Count 5.4 4.8-10.8 K/uL Red Blood Count 2.44 L 4.00-5.50 MIL/uL Hemoglobin 8.0 L 12.0-16.0 g/dL Hematocrit 24.4 L 36-48 % Mean Corpuscular Volume 100.0 H 79-99 fL Mean Corpuscular Hemoglobin 32.8 27.0-33.0 pg Mean Corpuscular Hemoglobin Concent 32.8 32.0-36.0 g/dL Red Cell Distribution Width 13.9 11.0-15.5 % Platelet Count 80 L 130-400 K/uL Mean Platelet Volume 10.7 H 7.5-10.5 fL Immature Granulocyte % (Auto) 0.7 0-1 % Neutrophils (%) (Auto) 97.8 H 40.0-77.0 % Lymphocytes (%) (Auto) 1.1 L 21.0-51.0 % Monocytes (%) (Auto) 0.4 L 3.0-13.0 % Eosinophils (%) (Auto) 0.0 0.0-8.0 % Basophils (%) (Auto) 0.0 0.0-5.0 % Neutrophils # (Auto) 5.3 1.8-7.7 K/uL Lymphocytes # (Auto) 0.1 L 1.0-4.8 K/uL Monocytes # (Auto) 0.0 L 0.1-1.0 K/uL Eosinophils # (Auto) 0.00 0.00-0.70 K/uL Basophils # (Auto) 0.00 0.00-0.20 K/uL Absolute Immature Granulocyte (auto 0.04 0-1 K/uL Nucleated Red Blood Cells 0.0 0.0-0.19 % Sodium Level 139 136-145 mmol/L Potassium Level 5.3 H 3.5-5.1 mmol/L Chloride Level 104 101-111 mmol/L Carbon Dioxide Level 30 21-32 mmol/L Blood Urea Nitrogen 108 *H 7-18 mg/dL Creatinine 2.8 H 0.5-1.0 mg/dL Glomerular Filtration Rate Calc 20 >90 mL/min Random Glucose 120 H 70-105 mg/dL Total Calcium 6.8 L 8.5-10.1 mg/dL Total Bilirubin 0.3 0.2-1.0 mg/dL Aspartate Amino Transf (AST/SGOT) 77 H 10-37 U/L Alanine Aminotransferase (ALT/SGPT) 106 H 12-78 U/L Alkaline Phosphatase 132 50-136 U/L Total Protein 3.8 L 6.0-8.3 g/dL Albumin 1.5 L 3.5-5.0 g/dL Whole Blood Glucose 137 H 70-110 MG/DL Blood Gas Specimen Type Arterial Arterial Blood pH 7.245 *L 7.350-7.450 Arterial Blood Partial Pressure CO2 62 *H 32-45 mmHg Arterial Blood Partial Pressure O2 90.1 83.0-108.0 mmHg Arterial Blood HCO3 26.3 21.0-28.0 mmol/L Arterial Blood Oxygen Saturation 95.3 94.0-98.0 % Arterial Blood Base Excess -2.4 L -2.0-3.0 mmol/L Blood Gas Temperature 37.0 35.5-37.0 CELSIUS Blood Gas Respiration Rate 36.0 min. Blood Gas Vent Mode PC IP 30 ROOM AIR FiO2 100.0 % Blood Gas PEEP 10 cm H2O Blood Gas Specimen Comment WENDY DUNNE, RAVEN Hemoglobin (Blood Gas) 8.6 L 12.0-16.0 g/dL Sodium (Blood Gas) 137 136-145 MMOL/L Bedside Potassium (Blood Gas) 4.7 H 3.4-4.5 MMOL/L Bedside Chloride (Blood Gas) 102 98-107 MMOL/L Bedside Glucose (Blood Gas) 139 H 65-95 MG/DL Bedside Ionized Calcium (Blood Gas) 1.01 L 1.15-1.33 MMOL/L Bedside Lactic Acid (Blood Gas) 0.94 H 0.36-0.75 MMOL/L Test 06/29/24 03:53 06/28/24 21:26 Range/Units Magnesium Level 2.10 1.80-2.40 mg/dL Bedside Glucose Comment Stat Lab Glu Request Bedside Glucose #2 Comment Protocol Initiated ASSESSMENT: Acute hypoxic respiratory failure, s/p intubated on 06/11/2024. Pneumocystis carinii pneumonia. Positive for Cytomegalovirus. Positive HIV test. Infection with methicillin-resistant Staphylococcus aureus. Leukocytosis, resolved. Hospital-acquired stage II decubitus pressure ulcers. Obesity. Oral candidiasis. Anemia. Acute renal failure. PLAN: Continue Ganciclovir IV for total of 14 days then d/c. Continue Bactrim. Continue fluconazole p.o. Continue critical care support. Continue mechanical ventilation support. Continue GI prophylaxis. Continue DVT prophylaxis. [facility] provided HIV medication Biktarvy, however is on hold due to renal failure. This case was reviewed and discussed with my supervising physician and the above assessment and plan was formulated and agreed upon. ATTESTATION BY PHYSICIAN I have seen and examined the patient. I reviewed the documentation, medical decision making, and treatment plan as noted by the mid-level provider above. I agree with the findings and plan of care. [place] MD, MIRTA L FNP Jun 30, 2024 08:49
--- NOTE | 2024-06-30 09:03 | HMCIMG ---
Exam Type: CHEST 1VW Clinical Information: Hypoxic respiratory failure Comparison: None Findings: Pulmonary pattern is as before. No worrisome interval changes have taken place. Impression: Stable exam.
[2024-06-30] MEDS: NA ZIRCON CYCLOSIL(LOKELMA 10GM) PO ONE (12:20)
--- NOTE | 2024-06-30 12:58 | PN ---
[facility] PROGRESS NOTE Date Patient Seen: Jun 30, 2024 Time of Visit: 13:58 Supervising Physician: Ramiro Kohler MD Primary Care Physician: Stu Foss MD Outpatient Specialists: Inpatient Consults: Pulmonology PROBLEM LIST: - Acute hypoxic hypercapnic respiratory failure on mechanical ventilator support via ETT - Severe Adult Respiratory Distress Syndrome - MODS (respiratory, Liver , and kidneys) - RADHA - Hyperkalemia improved - Transaminitis - Bilateral lower lobe pneumonia with positive MRSA and confirmed PCP - Disseminated herpes simplex viral infection - Newly diagnoses HIV with AIDS - Morbid obesity, BMI 31.4 - Severe protein calorie malnutrition - Former tobacco use disorder INTERVAL HISTORY: 06/30/24- patient has been afebrile with a T-max of 97.9 and T low 95.2 in the last 24 hours patient is with Hugo Hugger warmer blanket now 97.9 F. patient on Levophed at 0.01 micrograms/kilogram per minute with a blood pressure 127/66 heart rate in the 80s respiratory rate of 43 saturating 89% on ventilator. Permissive hypercapnia with latest ABGs of pH of 7.24, pCO2 of 62, PO2 of 90.1 and bicarb of 26.3. urine output 30 mL in the last 24 hours. No plans for hemodialysis at this time per Nephrology.Any form of renal replacement therapy remains a high-risk due to underlying condition per nephrology evaluation. On laboratory white count is normal H&H is 8.0/24.4 platelet count is 80 K. holding chemical DVT prophylaxis. On chemistries sodium is 139 potassium 5.3, Lokelma 10 g was administered. BUN of 108 creatinine of 2.8 GFR of 20 glucose 120 mg/dL total calcium 6.8 albumin 1.5 liver enzymes trended down. Chest x-ray with pulmonary pattern says before. No worrisome interval changes has been taken place. Stable exam.Pt's son and daughter at the bedside they has been updated with current clinical findings per Dr. Ramiro Kohler MD. REVIEW OF SYSTEMS: Unable to obtain ROS from patient due to patient's medical condition. PHYSICAL EXAM: GENERAL: Sedated and paralyzed, intubated currently SUPINE HEENT: Sclera non icteric, dry scabs and sores to mucosa, sore to rt cheek, swelling to periorbital regions NECK: short neck no JVD, trachea midline LUNGS: diminished bilaterally lobes no wheezing HEART: Regular rate and rhythm. Normal S1 and S2, without murmurs ABD: Abdomen soft, nontender. Bowel sounds hypoactive last BM last night 06/29/24 per RN report EXT: No clubbing cyanosis or edema, sore to sacral area, NEURO: Intubated sedated and paralyzed. Vital Signs (last 8hr) Date Time Temp Pulse Resp B/P (MAP) Pulse Ox O2 Delivery O2 Flow Rate FiO2 06/30/24 12:15 84 Ventilator+ 100 06/30/24 12:15 64 43 117/62 (80) 83 06/30/24 12:00 97.9 64 43 115/61 (79) 84 06/30/24 12:00 97.9 06/30/24 11:45 64 43 117/62 (80) 83 06/30/24 11:30 64 43 115/62 (79) 83 06/30/24 11:15 64 42 116/63 (80) 84 06/30/24 11:00 64 43 120/64 (82) 83 06/30/24 10:45 64 42 113/60 (77) 83 06/30/24 10:30 64 43 114/61 (78) 84 06/30/24 10:23 61 100 06/30/24 10:15 64 42 115/61 (79) 85 06/30/24 10:00 64 41 114/61 (78) 85 06/30/24 09:45 64 41 110/59 (76) 84 06/30/24 09:30 61 41 100/55 (70) 84 06/30/24 09:15 68 41 126/65 (85) 84 06/30/24 09:00 67 42 123/64 (83) 84 06/30/24 08:45 67 42 120/63 (82) 83 06/30/24 08:30 67 38 119/64 (82) 83 06/30/24 08:15 67 36 121/64 (83) 85 06/30/24 08:15 85 Ventilator+ 100 06/30/24 08:13 100 06/30/24 08:00 96.8 06/30/24 08:00 96.8 67 36 120/63 (82) 85 100 06/30/24 07:45 71 36 143/74 (97) 83 06/30/24 07:35 61 100 2/16/25 07:30 61 36 100/55 (70) 84 06/30/24 07:15 67 36 115/60 (78) 84 06/30/24 07:00 59 90/50 (63) 84 06/30/24 06:30 58 100/56 (71) 84 06/30/24 06:00 67 91/54 (66) 86 LABS: Hematology Labs: Test 06/30/24 04:36 Range/Units White Blood Count 5.4 4.8-10.8 K/uL Red Blood Count 2.44 L 4.00-5.50 MIL/uL Hemoglobin 8.0 L 12.0-16.0 g/dL Hematocrit 24.4 L 36-48 % Mean Corpuscular Volume 100.0 H 79-99 fL Mean Corpuscular Hemoglobin 32.8 27.0-33.0 pg Mean Corpuscular Hemoglobin Concent 32.8 32.0-36.0 g/dL Red Cell Distribution Width 13.9 11.0-15.5 % Platelet Count 80 L 130-400 K/uL Mean Platelet Volume 10.7 H 7.5-10.5 fL Immature Granulocyte % (Auto) 0.7 0-1 % Neutrophils (%) (Auto) 97.8 H 40.0-77.0 % Lymphocytes (%) (Auto) 1.1 L 21.0-51.0 % Monocytes (%) (Auto) 0.4 L 3.0-13.0 % Eosinophils (%) (Auto) 0.0 0.0-8.0 % Basophils (%) (Auto) 0.0 0.0-5.0 % Neutrophils # (Auto) 5.3 1.8-7.7 K/uL Lymphocytes # (Auto) 0.1 L 1.0-4.8 K/uL Monocytes # (Auto) 0.0 L 0.1-1.0 K/uL Eosinophils # (Auto) 0.00 0.00-0.70 K/uL Basophils # (Auto) 0.00 0.00-0.20 K/uL Absolute Immature Granulocyte (auto 0.04 0-1 K/uL Nucleated Red Blood Cells 0.0 0.0-0.19 % Chemistry Labs: Test 06/30/24 04:36 06/30/24 01:08 06/29/24 03:53 06/28/24 21:26 Range/Units Sodium Level 139 136-145 mmol/L Potassium Level 5.3 H 3.5-5.1 mmol/L Chloride Level 104 101-111 mmol/L Carbon Dioxide Level 30 21-32 mmol/L Blood Urea Nitrogen 108 *H 7-18 mg/dL Creatinine 2.8 H 0.5-1.0 mg/dL Glomerular Filtration Rate Calc 20 >90 mL/min Random Glucose 120 H 70-105 mg/dL Total Calcium 6.8 L 8.5-10.1 mg/dL Total Bilirubin 0.3 0.2-1.0 mg/dL Aspartate Amino Transf (AST/SGOT) 77 H 10-37 U/L Alanine Aminotransferase (ALT/SGPT) 106 H 12-78 U/L Alkaline Phosphatase 132 50-136 U/L Total Protein 3.8 L 6.0-8.3 g/dL Albumin 1.5 L 3.5-5.0 g/dL Whole Blood Glucose 137 H 70-110 MG/DL Magnesium Level 2.10 1.80-2.40 mg/dL Bedside Glucose Comment Stat Lab Glu Request Bedside Glucose #2 Comment Protocol Initiated DIAGNOSTICS / RADIOLOGY RESULTS: [ ]Signed PATIENT: RIO OSORIO MR#: [id number] : 1975 SEX: F AGE: 49 LOCATION: [facility] ORDER 230 STATUS: ADM IN REPORT#: [id number] SERVICE 06 REASON: Hypoxic respiratory failure ORDERING PHYSICIAN: MARGO LOGAN PROCEDURE: CXR1VW - CHEST 1VW Exam Type: CHEST 1VW Clinical Information: Hypoxic respiratory failure Comparison: None Findings: Pulmonary pattern is as before. No worrisome interval changes have taken place. Impression: Stable exam. DICTATED BY: FITZ NICOLAS MD DATE: 06/30/24899 ELECTRONICALLY SIGNED BY: FITZ NICOLAS MD DATE: 06/30/24902 PLAN Continue sedation with fentanyl, versed continue rocuronium drip to help with ventilator synchrony cessation. manage vent per abg maintain plateu pressure of < 30 as much possible Continue steroids Hugo hugger to rewarm Lokelma daily for hyperkalemia Follow nephrology recommendations. continue adjusted Bactrim and antiviral to Cr Clearance. continue diflucan Continue Atrovent q.4 hours. ABX per ID Panculture Son is POA Hold AC chemical PPX due to thrombocytopenia. NEURO: Minimize central acting medications as possible. Fall Precautions. Well lighted room through the day and minimize interruptions through the night to prevent acute delirium. PULMONARY: Supplemental 02 as needed Titrate Fio2 to keep Spo2 > or = 90% DuoNebs and CPT as needed IS hourly while awake for pulmonary hygiene Out of bed to chair as tolerated Ventilator settings: Assist-control pressure control, pressure control of 32, respiratory rate 34, FiO2 100% and PEEP of eight. CARDIOVASCULAR: Follow hemodynamics. Titrate vasopressor to keep MAP >65 or systolic blood pressure >95mmHg Telemetry LINES: CVC RT IJ Arterial line ET tube' FC OG tube GI & NUTRITION: Continue nutritional support Aspirations precautions Prokinetic agents and laxatives as needed KIDNEYS & ELECTROLYTES: Strict monitoring of intake and output Daily weights Avoid nephrotoxic agents Monitor electrolytes and replace as needed Goal urine output of 30mL/hr or 0.5mL/kg/hr ENDOCRINE: Maintain blood glucose between 100-180 at all times. Insulin sliding scale for blood glucose management INFECTIOUS DISEASE: Trend temperature. Clarke-culture if febrile. Sputum culture from 05/23/24 positive for MRSA, Betty albicans Pneumocystis carinii antigen positive Panculture: 06/02/24 Blood cultures Urine cultures Respiratory culture Antibiotics: Bactrim DS Fluconazole Valganciclovir HEMATOLOGY & COAGULATION: Monitor H&H. Keep Hgb > 7 Transfuse 1 unit of PRBC for Hgb < 7 Transfuse 1 pack of platelets of platelets < 20, 000 Watch for any signs and symptoms of bleeding SKIN: Pressure ulcer prevention per facility protocol Rehab: PT/OT Prophylaxis: GI: Pepcid DVT: Heparin Code Status: Full Resuscitation Disposition: ICU Other: Critical care time I personally spent 45 minutes of critical care time in treatment of this patient. This includes patient management, time at bedside, time reviewing tests, labs, appropriate images and studies, documentation, and patient care coordination. This time excludes separately billable procedures. MARGO LOGAN Jun 30, 2024 12:58
--- NOTE | 2024-06-30 13:21 | PN ---
[facility] PROGRESS NOTE Date of Service: Jun 30, 2024 Time of Service: 13:10 SUBJECTIVE: [ ] Ms. Abdullahi is a 49-year-old female that was seen and examined today on 05/23/2024. Patient is a good historian and personal health. Patient's son Dagoberto Salcido is at bedside. Patient states that she came to the emergency department with a chief complaint of shortness of breath. Onset was two weeks ago. Location is to lungs. Duration is on and off. Character is described as "easily running out of air." Initially shortness and breath was only aggravated with climbing one or two flights of stairs but symptoms have progressively worsened and patient becomes short of breath even standing or walking short distances. There was no alleviating factors however previously symptoms were being controlled with daily morning albuterol nebulizer treatments. Patient denies any associated chest pain or dizziness. Patient reports an episode of COVID in December 2023. emergency department CBC unremarkable, chemistry unremarkable, urinalysis unremarkable, influenza screen negative, COVID negative, blood gas shows PO2 less than 45. Chest x-ray shows left lower lung pneumonia and minimal right lung base atelectasis. Upon arrival to the emergency department patient was placed on a BiPAP due to respiratory distress. 05/24/2024-patient was seen and examined at the bedside, still on BiPAP. Patient is able to speak, and says she feels much better than before. Patient says after COVID in December she developed severe bronchitis and she was on Solu-Medrol and albuterol, which did not help her much and later she had high fevers and shortness of breath which is when she came to the ED.Vitals afebrile pulse 76, RR 38 tachypneic , blood pressure 115/68, pulse oxygen 99 on BiPAP flow of 60. On ABG pH 7.47, pCO2 29, PO2 109.4, oxygen saturation 98.3. [id number] potassium 4.1 BUN15 creatinine 0.5 GFR 114. We will closely monitor the patient. Director Acute consult noted waiting on the recommendation 05/25/24 patient was seen and examined and case discussed with RN and family by the bedside. She was breathing better today. She has been on BiPAP all night but now he was on 100% non-rebreather with further efforts to continue to wean the oxygen requirements down. 05/26/24 patient was seen and examined and case discussed with the RN. No acute events noted overnight. Appreciate pulmonology and ID input continue IV antibiotics and fluconazole. 05/27/24 patient is seen and examined at bedside, acute events overnight, case discussed with the RN, BP 131/64, afebrile, saturating 96-97% via Ventimask, FiO2 40%. The patient admits cough productive of clear phlegm. Serology tests reviewed, HIV preliminary positive, discussed with the patient. 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 We will continue the patient on IV antibiotics, continue fluconazole, continue to follow Pulmonary and ID input and recommendations. After provided in the preliminary results of HIV test, she denies any suicidal or homicidal ideations. 05/28 patient has been seen and examined, no acute events overnight, case discuss ed with the RN, during my visit patient is sitting comfortably in the chair, hemodynamically stable, off Ventimask, currently on 10 L via nasal cannula, saturating 98%, tolerated BiPAP overnight. she feels better, less shortness a breath, still admits cough productive of yellow phlegm. No chest pain. Getting IV antibiotics during my visit. HIV P24 antigen, nonreactive. We will continue to follow Pulmonary and Infectious Disease input and recommendations. 05/29 patient has been seen and examined, no acute events overnight, case discussed with the RN, during my visit patient is sitting comfortably in the chair, hemodynamically stable, remains on 10 L via nasal cannula, saturating 98%, still admits cough productive of yellow phlegm. No chest pain. Getting IV antibiotics during my visit. HIV P24 antigen, nonreactive. Pending CD4 cell count. We will continue to follow Pulmonary and Infectious Disease input and recommendations. 05/30 the patient has been seen and examined, no acute events overnight, BP 11 4/66, during my visit she is on Ventimask, saturating 95%, FiO2 60%. Without the Ventimask the patient desaturates to the low 70s. Patient tolerating BiPAP during the night. Still admits cough productive of thick yellow phlegm, no chest pain. Results of CD4 cell count reviewed, discussed with the patient. We will continue broad-spectrum IV antibiotics. Continue to follow Pulmonary and Infectious Disease input and recommendations. 05/31 the patient has been seen and examined, upgraded to the ICU, during my visit she is sitting in the chair, BP 113/72, heart rate of 109, she is on Oxymizer, 30 L, FiO2 100%. She is alert oriented x3, still admits cough productive of thick yellow phlegm, no chest pain. Hemoglobin 12.9, hematocrit 36.6, WBC 14.6. ABG with pH 7.4, pCO2 40, PO2. Chest x-ray shows left lower lobe infiltrate consistent with pneumonia. She is getting IV antibiotics during my visit. Patient will remain in the ICU, continue to follow critical Care as well as infectious disease input and recommendations. 06/01 patient is seen and examined, sitting comfortable in chair, awake, following commands, remains on high-flow oxygen, FiO2 70%, 30 L, BP 117/67, heart rate of 78, respiratory rate of 30-36, saturating 100%, CBC with a hemoglobin 13.6, hematocrit 38.9, WBC 12.4. Platelet count of 341. Chest x-ray showing persistent left lung infiltrate, cardiac size and mediastinum unremarkable. The bony structures are within the normal limits. Patient getting IV antibiotics during my visit. Patient to continue with the high-dose steroids. Serology test positive for Pneumocystis sandra. Patient on Bactrim two tablets p.o. t.i.d.. Continue also doxycycline and cefepime IV. Continue to follow infectious disease input and recommendation. Continue to follow Pulmonary input and recommendations. 06/02 patient is seen and examined at bedside, currently in prone position, alert oriented x3. CPT started last night, she has started having more loose phlegm expectorated. BP 114/74, tachycardic 114, saturating 95%, high-flow nasal cannula, 30 L, FiO2 80%. CBC with a hemoglobin 16.9, hemoglobin 14 0, hematocrit 39.8, platelet count 347. Chest x-ray shows persistent left lung infiltrate. 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 Serology test for toxoplasma currently pending. Patient on IV antibiotics as well as high-dose steroids. Continue to follow infectious Disease and Pulmonary input and recommendations. 06/03 patient seen at bedside, no acute events overnight. She continues with respiratory distress, with increasing oxygen requirements. Critical Care has discussed a possible need for intubation if she does not improve. She has been started on steroids due to underlying PCP pneumonia. WBC improved from 16.9 down to 13.5, sodium stable at 132, same as yesterday, lactic acid downtrending from 4.1 down to 3.2, remainder of her labs are relatively unremarkable. 06/04 patient seen at bedside, no acute events overnight. She remains on high- flow nasal cannula, mildly tachycardic. WBC elevated at 13.3, sodium decreased from 132 down to 129, remainder of her labs are relatively unremarkable. Continue to wean supplemental oxygen. Further care per critical Care 06/05 patient seen at bedside, no acute events overnight. She remains on high- flow nasal cannula with BiPAP overnight and is still tachycardic. Heart rate ranging from 104 up to 113, WBC improved from 13.3 down to 11.1, sodium decreased from 120 down to 126, remainder of her labs are relatively unremarkable. We will continue to wean oxygen as able. 06/06 Patient seen at bedside, no acute events overnight. She remains on high- flow nasal cannula with BiPAP overnight and is still tachycardic. Heart rate ranging from 104 up to 122, WBC improved from 11.1 down to 10.6, sodium improved from 126 up to 129, remainder of her labs are relatively unremarkable. We will continue to wean oxygen as able. 06/07 patient seen at bedside, no acute events overnight. She is still on high- flow nasal cannula, RT advised to wean oxygen, currently saturating 100% on 30L. She is tachycardic, sodium decreased from 129 down to 123, likely secondary to Bactrim. Patient is asymptomatic, will continue with bactrim, if sodium cont inues to decrease consider a holiday from bactrim. 06/08 patient seen at bedside, no acute events overnight. She is still on high- flow nasal cannula, RT advised to wean oxygen, currently saturating 100% on 30L. She is tachycardic, sodium stable at 123, same as yesterday. Pending improvement in respiratory status 06/09 patient seen at bedside, he remains on high-flow nasal cannula, we will continue to wean as able, appreciate pulmonology assistance, tachycardic with heart rate ranging from 123 up to 130. She is still having low-grade fevers at 100.8. Sodium increased from 123 up to 130, remainder of her labs are relatively unremarkable. 06/10 patient is seen and examined at bedside, remains on high-flow oxygen, she feels mildly anxious, no chest pain. Still with a cough productive of white phlegm. Still tachycardic, heart rate 117-122. Patient is still spiking low- grade fever. Hemoglobin 10.9, hematocrit 30.5. Sodium remained low at 128, BUN and creatinine of 16 and 0.4. 06/11 patient is seen and examined at bedside, patient now on AVAPS, FiO2 100%, patient became restless last night, she had to be started on Precedex. During my visit she remains alert oriented x3, no chest pain. BP 120/48, she is saturating 100%. Hemoglobin 10 point, hematocrit 31.3. ABG shows persistent hypoxemia, with a PO2 of 69.4. Chest x-ray shows extensive infiltrates on the left which is stable to somewhat increased, there has been interval development of perihilar infiltrate on the right. Normal bilateral lower extremity venous Doppler ultrasound. Continue the patient on prednisone 20 mg p.o. daily, continue Bactrim two tablets p.o. t.i.d. as well as fluconazole 100 mg p.o. daily. 06/12 patient is seen and examined at bedside, intubated, on mechanical ventilation, per discussion with the RN, patient was in respiratory distress yesterday, decision made to intubate the patient. During my visit the patient is midazolam, fentanyl, patient paralyzed, also on Nimbex. She is in a prone position. On pressor support with phenylephrine. Also on Precedex. She is also on hydrocortisone 100 mg IV q.8 hours. Son at bedside, updated. ABG shows pH 7.38, pCO2 47, PO2 122, bicarb of 27.7. 06/13 patient is seen and examined at bedside, remains intubated, on mechanical ventilation, remains on midazolam, fentanyl, patient paralyzed, also on Nimbex. She is in a prone position. On BP pressor support with phenylephrine. Patient is peep of seven. ABG pH 7.34, PO2 72.3. Chest x-ray reviewed, increasing bilateral infiltrates, increasing pneumomediastinum. 06/14 patient is seen and examined at bedside, remains intubated, on mechanical ventilation, prone position, remains on midazolam, fentanyl, patient paralyzed, also on Nimbex. She is in a prone position. Off pressors. Patient is peep of seven. ABG pH 7.34, PO2 72.3. Chest x-ray shows extensive bilateral infiltrates unchanged, no pneumothorax. 06/15 patient is seen and examined at bedside, remains intubated, on mechanical ventilation, prone position, remains paralyzed, on Nimbex. Off pressors. Patient is peep of 10. ABG pH 7.34, PO2 72.3. Chest x-ray shows extensive bilateral infiltrates unchanged, no pneumothorax. Overall condition remains unchanged. No family at bedside. 06/16 patient is seen and examined at bedside, remains intubated, on mechanical ventilation, discussed with the RN, the patient has been placed on supine position. Patient remains on pressor support. Remains on sedation with midazolam and fentanyl BP 114/60, afebrile saturating 96% FiO2 100%, peep of 8. ABG today with pCO2 63, PO2 91.5. Chest x-ray with severe consultation both lungs, unchanged, interval development of pneumomediastinum, moderate to severe. Continue Solu-Medrol 80 mg IV q.8 hours, continue broad-spectrum antibiotics with meropenem 1 g IV q.8 hours, the patient remains on Bactrim. Continue ganciclovir. 06/17 patient seen at bedside, no acute events overnight. She remains intubated, paralyzed on FiO2 of 100% and PEEP of eight. Continue to try to wean towards extubation. Chest x-ray appears mildly improved from yesterday. She remains supine. Hemoglobin improved from 8.4 up to 8.6, platelets decreased from 121 d own to 112, CO2 elevated at 41, same as yesterday, remainder of her labs are relatively unremarkable. Patient is still critical with poor prognosis continue further care per critical care team. 06/18 patient seen at bedside, no acute events overnight. She remains intubated and sedated, critical care weaning patient off paralyzing agents. She is still on FiO2 of 100% with PEEP of eight, PO2 on ABG 70.8 down from 80.5 yesterday demonstrating a worsening and her oxygenation within her blood at the same venti lator settings. PCO2 increased from 70 up to 75. Hemoglobin improved from 8.6 up to 9.0, platelets improved from 112 up to 127, CO2 increased from 41 up to 45, remainder of her labs are relatively unremarkable. 06/19 patient seen at bedside, no acute events overnight. She remains intubated and sedated, critical Care to continue trying to wean to extubation. Continue current care further recommendations per critical Care 2 patient is seen and examined at bedside, no acute events overnight, she remains intubated, on mechanical ventilation, off vasopressors, sedated with fentanyl and Versed, the patient on peep of 8, saturating 97%. 06/21 patient seen at bedside, no acute events overnight. She remains intubated, paralyzed on FiO2 of 100% and PEEP of eight. Continue to try to wean towards extubation. She remains supine. Chest x-ray stable. Hemoglobin at 8.6, hematocrit 28.4. remainder of her labs are relatively unremarkable. Patient is still critical with poor prognosis continue further care per critical care team. 06/22 patient seen at bedside, no acute events overnight. She remains intubated, paralyzed on FiO2 of 100% and PEEP of eight. Continue to try to wean towards extubation. She remains supine. Chest x-ray stable. Patient is still criti vito with poor prognosis continue further care per critical care team. 06/23 patient seen at bedside, no acute events overnight. She remains intubated, on FiO2 of 90% and PEEP of eight, ABG showing improved oxygenation will wean down to 80%. Continue to try to wean towards extubation. She remains supine. Chest x-ray improved from previous. Patient is still critical with poor p rognosis continue further care per critical care team. 06/24 patient seen at bedside, she had several desaturation episodes overnight however she is currently saturating well, ABG looks good. We will wean her FiO2 to 80% and continue to monitor. Continue to try and wean towards extubation. Hemoglobin decreased from 10.4 down to 9.0, platelets decreased from 125 down to 110, potassium decreased from 5.4 down to 5.2, CO2 increased from 43 up to 49, remainder of her labs are relatively unremarkable. 06/25 patient seen at bedside, she had several desaturation episodes overnight however she is currently saturating well, ABG pending this am. Continue to try and wean FiO2 and wean towards extubation. Hemoglobin decreased from 9.0 down to 8.5, platelets decreased from 110 down to 93, potassium decreased from 5.2 down to 4.9, CO2 improved from 49 down to 45, remainder of her labs are rel atively unremarkable. 06/26 patient seen at bedside, no acute events overnight. She continues to desaturate while retaining CO2, we will continue to try and wean as able. Patient was started on Biktarvy, WBC has increased up to 15.0. She is now tachycardic with heart rate ranging from 102 up to 122. Continue care per critical Care and Infectious Disease. Patient is very ill with a poor prognosis. 06/27 patient is seen and examined, remains intubated, on mechanical ventilation, sedated with fentanyl, rocuronium, Versed. Remains on vasopressors with Mario- Synephrine. BP 114/57. ABG with pH of 7.35, pCO2 63, PO2 65. Chest x-ray reviewed, persistent bilateral pulmonary infiltrates suggestive of pulmonary vascular congestion with possible superimposed pneumonitis, mild interval worsening seen. 06/28 patient is seen and examined at bedside, case discussed with the RN, patient is off vasopressors since yesterday, BP 111/59, still intubated, on mechanical ventilation, sedated. FiO2 100%, peep of eight. Chest x-ray still with persistent bilateral pulmonary infiltrates suggestive of pulmonary vascular congestion with possible superimposed pneumonitis. Patient getting broad- spectrum IV antibiotics at the time of my visit. Creatinine 2.2. Son at bedside, updated. 06/29 patient is seen and examined at bedside, case discussed with the RN, during my visit the patient remains in the intensive care unit, intubated, mechanical ventilation. She is still requiring Levophed for blood pressure support, remains on Precedex, fentanyl, Versed and rocuronium. Chest x-ray with pulmonary pattern as before, worrisome interval change. Creatinine 2.7. ABG with pH 7.27, pCO2 60, PO2 471. 06/30 seen and examined at bedside, remains intubated, on mechanical ventilation, still requiring Levophed for blood pressure support, sedated with Versed, Precedex, rocuronium. Getting broad-spectrum IV antibiotics at the time of my visit. Patient getting nutritional support via OG tube. Case discussed with critical Care, patient with the elevated creatinine, nephrology consultation requested for possible hemodialysis, per field coil winder patient not a candidate. Chest x-ray with pulmonary patter stable. REVIEW OF SYSTEMS 12 point review of systems negative unless noted in HPI PHYSICAL EXAM GENERAL APPEARANCE: Patient intubated, on mechanical ventilation. NEUROLOGICAL: Cranial nerves II-XII grossly intact. Motor is 5/5 in bilateral upper and lower extremities proximal to distal. No sensory deficits. HEENT: Face is symmetric. Pupils are equal and reactive. Extraocular movements are intact. NECK: Supple. No JVD. No thyromegaly. No submental, submandibular, pre- /postauricular, occipital or supraclavicular lymphadenopathy. CHEST: Normal chest expansion. No Telemetry. LUNGS: Bilateral rhonchi, no expiratory wheezing CARDIOVASCULAR: Regular. S1 and S2 normal. No appreciable rubs, murmurs or gallops. ABDOMEN: Soft, nontender, and nondistended. There is no rebound, voluntary guarding, or rigidity. : Deferred. No Souza. EXTREMITIES: Non-edematous and not cyanotic. No clubbing. Good capillary refill. SKIN: No skin breakdown. Vital Signs (last 8hr) Date Time Temp Pulse Resp B/P (MAP) Pulse Ox O2 Delivery O2 Flow Rate FiO2 06/30/24 13:08 100 06/30/24 12:59 67 100 06/30/24 12:15 84 Ventilator+ 100 06/30/24 12:15 64 43 117/62 (80) 83 06/30/24 12:00 97.9 64 43 115/61 (79) 84 06/30/24 12:00 97.9 06/30/24 11:45 64 43 117/62 (80) 83 06/30/24 11:30 64 43 115/62 (79) 83 06/30/24 11:15 64 42 116/63 (80) 84 06/30/24 11:00 64 43 120/64 (82) 83 06/30/24 10:45 64 42 113/60 (77) 83 06/30/24 10:30 64 43 114/61 (78) 84 06/30/24 10:23 61 100 06/30/24 10:15 64 42 115/61 (79) 85 06/30/24 10:00 64 41 114/61 (78) 85 06/30/24 09:45 64 41 110/59 (76) 84 06/30/24 09:30 61 41 100/55 (70) 84 06/30/24 09:15 68 41 126/65 (85) 84 06/30/24 09:00 67 42 123/64 (83) 84 06/30/24 08:45 67 42 120/63 (82) 83 06/30/24 08:30 67 38 119/64 (82) 83 06/30/24 08:15 67 36 121/64 (83) 85 06/30/24 08:15 85 Ventilator+ 100 06/30/24 08:13 100 06/30/24 08:00 96.8 06/30/24 08:00 96.8 67 36 120/63 (82) 85 100 06/30/24 07:45 71 36 143/74 (97) 83 06/30/24 07:35 61 100 06/30/24 07:30 61 36 100/55 (70) 84 06/30/24 07:15 67 36 115/60 (78) 84 06/30/24 07:00 59 90/50 (63) 84 06/30/24 06:30 58 100/56 (71) 84 06/30/24 06:00 67 91/54 (66) 86 06/30/24 05:30 76 114/64 (81) 88 LABS: Laboratory: Test 06/30/24 04:36 06/30/24 01:08 06/29/24 15:11 06/29/24 11:27 Range/Units White Blood Count 5.4 4.8-10.8 K/uL Red Blood Count 2.44 L 4.00-5.50 MIL/uL Hemoglobin 8.0 L 12.0-16.0 g/dL Hematocrit 24.4 L 36-48 % Mean Corpuscular Volume 100.0 H 79-99 fL Mean Corpuscular Hemoglobin 32.8 27.0-33.0 pg Mean Corpuscular Hemoglobin Concent 32.8 32.0-36.0 g/dL Red Cell Distribution Width 13.9 11.0-15.5 % Platelet Count 80 L 130-400 K/uL Mean Platelet Volume 10.7 H 7.5-10.5 fL Immature Granulocyte % (Auto) 0.7 0-1 % Neutrophils (%) (Auto) 97.8 H 40.0-77.0 % Lymphocytes (%) (Auto) 1.1 L 21.0-51.0 % Monocytes (%) (Auto) 0.4 L 3.0-13.0 % Eosinophils (%) (Auto) 0.0 0.0-8.0 % Basophils (%) (Auto) 0.0 0.0-5.0 % Neutrophils # (Auto) 5.3 1.8-7.7 K/uL Lymphocytes # (Auto) 0.1 L 1.0-4.8 K/uL Monocytes # (Auto) 0.0 L 0.1-1.0 K/uL Eosinophils # (Auto) 0.00 0.00-0.70 K/uL Basophils # (Auto) 0.00 0.00-0.20 K/uL Absolute Immature Granulocyte (auto 0.04 0-1 K/uL Nucleated Red Blood Cells 0.0 0.0-0.19 % Sodium Level 139 136-145 mmol/L Potassium Level 5.3 H 3.5-5.1 mmol/L Chloride Level 104 101-111 mmol/L Carbon Dioxide Level 30 21-32 mmol/L Blood Urea Nitrogen 108 *H 7-18 mg/dL Creatinine 2.8 H 0.5-1.0 mg/dL Glomerular Filtration Rate Calc 20 >90 mL/min Random Glucose 120 H 70-105 mg/dL Total Calcium 6.8 L 8.5-10.1 mg/dL Total Bilirubin 0.3 0.2-1.0 mg/dL Aspartate Amino Transf (AST/SGOT) 77 H 10-37 U/L Alanine Aminotransferase (ALT/SGPT) 106 H 12-78 U/L Alkaline Phosphatase 132 50-136 U/L Total Protein 3.8 L 6.0-8.3 g/dL Albumin 1.5 L 3.5-5.0 g/dL Whole Blood Glucose 137 H 70-110 MG/DL Blood Gas Specimen Type Arterial Arterial Blood pH 7.245 *L 7.350-7.450 Arterial Blood Partial Pressure CO2 62 *H 32-45 mmHg Arterial Blood Partial Pressure O2 90.1 83.0-108.0 mmHg Arterial Blood HCO3 26.3 21.0-28.0 mmol/L Arterial Blood Oxygen Saturation 95.3 94.0-98.0 % Arterial Blood Base Excess -2.4 L -2.0-3.0 mmol/L Blood Gas Temperature 37.0 35.5-37.0 CELSIUS Blood Gas Respiration Rate 36.0 min. Blood Gas Vent Mode PC IP 30 ROOM AIR FiO2 100.0 % Blood Gas PEEP 10 cm H2O Blood Gas Specimen Comment WENDY DUNNE RN Hemoglobin (Blood Gas) 8.6 L 12.0-16.0 g/dL Sodium (Blood Gas) 137 136-145 MMOL/L Bedside Potassium (Blood Gas) 4.7 H 3.4-4.5 MMOL/L Bedside Chloride (Blood Gas) 102 98-107 MMOL/L Bedside Glucose (Blood Gas) 139 H 65-95 MG/DL Bedside Ionized Calcium (Blood Gas) 1.01 L 1.15-1.33 MMOL/L Bedside Lactic Acid (Blood Gas) 0.94 H 0.36-0.75 MMOL/L Test 06/29/24 03:53 06/28/24 21:26 Range/Units Magnesium Level 2.10 1.80-2.40 mg/dL Bedside Glucose Comment Stat Lab Glu Request Bedside Glucose #2 Comment Protocol Initiated Current Medications Medications (Trade) Dose Ordered Sig/Julita Route PRN Reason Start Time Stop Time Status Last Admin Dose Admin Acetaminophen (TYLenol 650MG ELIXIR) 650 mg Q6H PRN PO MILD PAIN (1-3) 06/04/24 08:30 07/04/24 08:29 06/10/24 20:07 650 MG Acetaminophen (TYLenol 650MG SUPPOSITORY) 650 mg Q6H PRN RC MILD PAIN (1-3) 05/23/24 20:30 06/22/24 20:29 DC Acetylcysteine (MUComyst 20% 4ML) 400mg = 2ml [id number] IH 06/02/24 00:00 06/05/24 15:52 DC 06/05/24 11:35 200 MG Albumin Human 50 ml @ 0 mls/hr Q8H IV 06/27/24 20:00 06/28/24 11:00 DC 06/28/24 03:42 100 MLS/HR Albuterol (DUOneb) 1 udvial [id number] IH 05/24/24 00:00 06/10/24 10:28 DC 06/10/24 06:45 1 UDVIAL Alprazolam (XANax 0.5MG) 0.5 mg Q8H PRN PO ANXIETY 06/10/24 13:30 07/10/24 13:29 06/25/24 06:30 0.5 MG Artificial Tears (Artificial Tears) 1 DROP OR AD Q8H OU 06/11/24 14:30 07/11/24 14:29 06/30/24 06:31 1 DROP Azithromycin 250 ml @ 250 mls/hr Q24H IVPB 05/24/24 17:00 05/24/24 14:41 DC Azithromycin 250 ml @ 250 mls/hr Q24H STAT IVPB 05/23/24 17:17 05/24/24 14:41 DC 05/23/24 17:45 250 MLS/HR Benzocaine (Cepacol Sore Throat Lozenge) 1 each Q4H PRN MM SORE THROAT 06/08/24 10:00 06/29/24 17:27 DC 06/09/24 07:44 1 EACH Bisacodyl (DulcoLAX) 10 mg DAILY PRN RC CONSTIPATION 06/08/24 14:00 07/08/24 13:59 06/23/24 10:00 10 MG Bumetanide (Bumex 1mg Vial) 1 mg Q8H IVP 06/28/24 22:00 07/28/24 21:59 06/30/24 06:30 1 MG Cadexomer Iodine (Iodosorb Gel 40gm) 1 APPL TO RIGHT FAC... DAILY TP 06/19/24 09:00 07/18/24 08:59 06/30/24 08:31 1 APPL Cadexomer Iodine (Iodosorb Gel 40gm) 1 appl DAILY TP 06/18/24 09:00 06/19/24 07:23 DC 06/18/24 14:09 1 APPL Calcium Gluconate 1 gm/Sodium Chloride 100 ml @ 0 mls/hr PROTOCOL IV 06/27/24 10:30 07/27/24 10:29 06/28/24 00:08 200 MLS/HR Cefepime HCl (MAXipime 2 gm vial) 2 gm Q12H IVPB 05/24/24 15:00 06/03/24 14:59 DC 06/03/24 03:18 2 GM Ceftriaxone Sodium (ROCEphine 1G INJ) 1 gm Q24H IVPB 05/24/24 17:30 05/24/24 14:41 DC Chlorhexidine Gluconate (Peridex) 15 ml Q6H MM 06/07/24 17:00 06/11/24 14:27 DC 06/10/24 12:22 15 ML Chlorhexidine Gluconate (Peridex) 15 ml Q8H MM 06/11/24 14:30 06/25/24 14:29 DC 06/25/24 06:31 15 ML Cisatracurium Besylate (Nimbex) ONCE IVP 06/11/24 14:30 06/11/24 15:57 DC Cisatracurium Besylate 100 mg/ Sodium Chloride 100 ml @ 0 mls/hr PROTOCOL IV 06/11/24 23:30 06/23/24 16:20 DC 06/17/24 09:27 14.94 MLS/HR Cisatracurium Besylate 100 mg/ Sodium Chloride 100 ml @ 0 mls/hr PROTOCOL IV 06/23/24 16:30 06/23/24 18:43 DC 06/23/24 16:46 2.6 MLS/HR Clotrimazole (Mycelex) 10 mg TID MM 06/04/24 21:00 06/14/24 08:39 DC 06/13/24 20:28 10 MG Dexmedetomidine/ Sodium Chloride (PRECEdex 400MCG/ 100ML-NS) 400 mcg PROTOCOL IV 06/10/24 19:30 06/27/24 09:26 DC 06/25/24 05:08 400 MCG Dexmedetomidine/ Sodium Chloride (PRECEdex 400MCG/ 100ML-NS) 400 mcg PROTOCOL IV 06/27/24 09:30 07/27/24 09:29 06/30/24 12:49 400 MCG Diphenhydramine HCl (BENAdryl INJ) 25 mg Q6H PRN IV ITCHING 06/23/24 19:00 07/23/24 18:59 06/23/24 18:54 25 MG Dobutamine HCl/ Dextrose 250 ml @ 0 mls/hr PROTOCOL IV 06/12/24 16:30 06/12/24 16:53 DC Doxycycline Hyclate 250 ml @ 125 mls/hr Q12H IV 05/24/24 16:30 06/03/24 16:29 DC 06/03/24 04:23 125 MLS/HR Enoxaparin Sodium (Lovenox 80mg) 40 mg DAILY SQ 06/15/24 09:00 2/1/25 09:30 DC Enoxaparin Sodium (Lovenox 80mg) 80 mg BID SQ 06/11/24 09:00 06/14/24 23:28 DC 06/14/24 20:33 80 MG Enoxaparin Sodium (Lovenox) 40 mg DAILY SQ 06/15/24 09:30 07/15/24 09:29 Hold 06/27/24 08:19 40 MG Enoxaparin Sodium (Lovenox) 40 mg Q24H SQ 05/23/24 21:00 06/11/24 04:36 DC 06/10/24 20:07 40 MG Famotidine (Pepcid 20mg Vial) 20 mg DAILY IV 05/24/24 09:00 06/14/24 08:39 DC 06/13/24 08:15 20 MG Fentanyl Citrate 100 ml @ 2.5 mls/hr PROTOCOL IV 06/29/24 21:00 07/06/24 20:59 06/30/24 12:51 2.5 MLS/HR Fentanyl Citrate 2500 mcg/Sodium Chloride 250 ml @ 0 mls/hr AD PRN IV TITRATE icu sedation 06/27/24 20:00 06/27/24 20:03 DC Fentanyl Citrate 2500 mcg/Sodium Chloride 250 ml @ 0 mls/hr AD PRN IV TITRATE 06/17/24 05:30 06/17/24 05:18 DC Fentanyl/Sodium Chloride 250 ml @ 0.1 mls/hr PROTOCOL IV 06/12/24 00:00 06/17/24 00:00 DC 06/16/24 17:36 0.1 MLS/HR Fentanyl/Sodium Chloride 250 ml @ 0 mls/hr AD PRN IV ICU SEDATION 06/17/24 05:30 06/22/24 05:29 DC 06/21/24 19:51 30 MLS/HR Fentanyl/Sodium Chloride 250 ml @ 0 mls/hr PROTOCOL IV 06/27/24 20:30 06/29/24 21:04 DC 06/29/24 13:10 30 MLS/HR Fentanyl/Sodium Chloride 250 ml @ 0 mls/hr PROTOCOL IV 06/22/24 15:00 06/27/24 14:59 DC 06/27/24 12:13 35 MLS/HR Fluconazole (DiFLUCan 100 mg TAB) 200 mg DAILY PO 06/05/24 09:00 07/05/24 08:59 06/30/24 08:28 200 MG Fluconazole/ Sodium Chloride 100 ml @ 100 mls/hr DAILY IV 05/26/24 09:00 05/27/24 15:57 DC 05/27/24 09:07 100 MLS/HR Furosemide (LASix 20MG VIAL) 20 mg DAILY IV 05/31/24 09:00 06/07/24 13:18 DC 06/03/24 08:38 20 MG Furosemide (LASix 20MG VIAL) 20 mg DAILY IV 06/17/24 10:00 06/17/24 12:13 DC 06/17/24 09:46 20 MG Furosemide (LASix 20MG VIAL) 20 mg Q12H IV 06/11/24 11:00 06/13/24 09:31 DC 06/12/24 21:54 20 MG Furosemide (LASix 20MG VIAL) 20 mg Q12H IV 06/17/24 22:00 06/18/24 10:01 DC 06/18/24 09:44 20 MG Furosemide (LASix 20MG VIAL) 20 mg Q8H IV 06/13/24 09:30 06/16/24 11:00 DC 06/16/24 08:44 20 MG Furosemide (LASix 20MG VIAL) 20 mg Q8H IV 06/19/24 17:00 06/26/24 11:05 DC 06/26/24 09:13 20 MG Ganciclovir Sodium 250 mg/ Sodium Chloride 100 ml @ 100 mls/hr Q12H IV 06/27/24 21:00 06/28/24 19:50 DC 06/28/24 09:37 100 MLS/HR Ganciclovir Sodium 250 mg/ Sodium Chloride 100 ml @ 100 mls/hr Q24H IV 06/29/24 09:00 07/29/24 08:59 06/30/24 08:33 100 MLS/HR Ganciclovir Sodium 430 mg/ Sodium Chloride 100 ml @ 100 mls/hr Q12H IV 06/13/24 09:00 06/27/24 18:34 DC 06/27/24 11:41 100 MLS/HR Ganciclovir Sodium 500 mg/ Sodium Chloride 100 ml @ 100 mls/hr Q12H IV 06/11/24 18:00 06/11/24 15:48 DC Ganciclovir Sodium (Ganciclovir Sodium) 500 mg Q12H IV 06/12/24 17:00 06/13/24 08:35 DC Guaifenesin/ Dextromethorphan (RobiTUSSin DM 200/20MG 10ML) 10 ml Q4H PRN PO COUGH 05/23/24 20:30 06/22/24 20:29 DC 06/10/24 20:07 10 ML Home Med (Home Medication) BIKTARVY (1 TAB) Q24H PO 06/24/24 17:00 06/28/24 14:57 DC 06/27/24 17:08 1 EACH Hydralazine HCl (APRESOLine 20MG INJ) 10 mg Q4H PRN IV ADMINISTER FOR SBP > 160 06/26/24 16:30 07/26/24 16:29 06/26/24 16:27 10 MG Hydrocortisone Sodium Succinate (Solu-corTEF 100MG) 100 mg Q8H IV 06/11/24 05:00 06/14/24 08:39 DC 06/14/24 06:13 100 MG Hydroxyzine HCl (ATArax 25MG TAB) 25 mg TID PRN PO ITCHING 06/10/24 14:00 06/29/24 17:27 DC 06/27/24 08:20 25 MG Insulin Glargine (LANtus 100 UNITS/ML 10 ML VIAL) 15 units BID@0730,2100 SQ 06/27/24 21:00 07/27/24 20:59 06/30/24 08:01 15 UNITS Insulin Human Regular (humuLIN R 100 UNIT/ML 3ML) INSULIN SLIDING SCAL... ACHS SQ 06/19/24 16:30 06/20/24 15:07 DC 06/20/24 12:30 5 UNIT Insulin Human Regular (humuLIN R 100 UNIT/ML 3ML) INSULIN SLIDING SCAL... Q6H6 SQ 06/20/24 18:00 07/19/24 16:29 06/28/24 12:40 2 UNIT Ipratropium [place] (AtrovENT UD) 0.5 MG [id number] IH 06/10/24 14:00 06/27/24 14:53 DC 06/27/24 14:01 0.5 MG Ipratropium [place] (AtrovENT UD) 0.5 MG [id number] PRN IH SHORTNESS OF BREATH 06/27/24 15:00 07/10/24 13:59 06/29/24 03:21 0.5 MG Lactated Ringer's (Lactated Ringers 1000ml) 500 ml ONCE IV 06/02/24 20:00 06/02/24 19:54 DC Lactulose (Constulose 20gm/ 30ml Udcup) 20 gm Q8H PO 06/28/24 11:00 06/29/24 17:27 DC 06/29/24 11:32 20 GM Lactulose (Constulose 20gm/ 30ml Udcup) 20 gm Q8H PO 06/29/24 21:00 07/29/24 20:59 06/30/24 05:25 20 GM Levofloxacin/ Dextrose 100 ml @ 100 mls/hr Q24H IV 05/24/24 15:00 05/24/24 16:16 DC Magnesium Sulfate 50 ml @ 0 mls/hr PROTOCOL PRN IV hypomagnesemia 05/28/24 08:00 06/27/24 07:59 DC 06/11/24 05:26 50 MLS/HR Meropenem (Merrem 1gm) 1 gm Q8H IVPB 06/13/24 15:00 06/18/24 21:57 DC 06/18/24 15:34 1 GM Meropenem (Merrem 1gm) 1 gm Q8H IVPB 06/19/24 01:00 06/21/24 00:59 DC 06/20/24 16:50 1 GM Meropenem (Merrem) 1 gm Q8H IVPB 06/11/24 15:00 06/13/24 11:52 DC 06/13/24 08:14 1 GM Meropenem 1 gm/ Sodium Chloride 100 ml @ 33.333 mls/ hr Q8H IV 06/11/24 14:30 06/11/24 14:28 DC Methylprednisolone Sodium Succinate (Solu-medROL 40MG) 20 mg Q12H IVP 06/05/24 07:00 06/09/24 09:13 DC 06/09/24 07:25 20 MG Methylprednisolone Sodium Succinate (Solu-medROL 40MG) 40 mg Q12H IVP 05/28/24 18:00 05/29/24 16:45 DC 05/29/24 05:32 40 MG Methylprednisolone Sodium Succinate (Solu-medROL 40MG) 40 mg Q6H IVP 05/29/24 16:30 06/04/24 16:44 DC 06/04/24 11:13 40 MG Methylprednisolone Sodium Succinate (Solu-medROL 40MG) 40 mg Q6H IVP 06/04/24 18:00 06/05/24 00:24 DC 06/04/24 23:48 40 MG Methylprednisolone Sodium Succinate (Solu-medROL 40MG) 40 mg Q8H IVP 05/24/24 01:00 05/25/24 21:51 DC 05/25/24 17:28 40 MG Methylprednisolone Sodium Succinate (Solu-medROL 40MG) 60 mg Q6H IVP 05/25/24 22:00 05/28/24 02:25 DC 05/27/24 23:55 60 MG Methylprednisolone Sodium Succinate (Solu-medROL 40MG) 60 mg Q6H IVP 05/28/24 06:00 05/28/24 08:27 DC 05/28/24 06:47 60 MG Methylprednisolone Sodium Succinate (Solu-medROL 40MG) 60 mg Q6H IVP 06/11/24 02:30 06/11/24 04:23 DC 06/11/24 02:46 60 MG Methylprednisolone Sodium Succinate (Solu-medROL 40MG) 80 mg Q8H IVP 06/14/24 17:00 07/14/24 08:59 06/30/24 08:31 80 MG Methylprednisolone Sodium Succinate (Solu-medROL 125MG) 80 mg Q8H IVP 06/14/24 09:00 06/14/24 14:53 DC 06/14/24 08:48 80 MG Metoclopramide HCl (regLAN 10MG/ 10ML UD CUP) 5 mg Q8H PO 06/29/24 21:00 07/22/24 07:29 06/30/24 12:23 5 MG Metoclopramide HCl (regLAN 10MG/ 10ML UD CUP) 5 mg TIDAC PO 06/22/24 07:30 06/29/24 17:27 DC 06/29/24 11:32 5 MG Metronidazole/ Sodium Chloride (flaGYL) 500 mg Q8H IV 05/25/24 22:00 05/25/24 21:56 DC Midazolam HCl 50 ml @ 0 mls/hr AD PRN IV TITRATE 06/12/24 01:30 06/12/24 08:30 DC 06/12/24 02:30 10 MLS/HR Midazolam HCl 100 ml @ 0 mls/hr AD PRN IV TITRATE 06/12/24 09:00 07/12/24 01:29 06/30/24 01:09 0 MLS/HR Morphine Sulfate (morPHINE 4MG SYG) 4 mg Q4H PRN IM RESPIRATORY SYMPTOMS 06/11/24 03:30 06/14/24 23:33 DC 06/11/24 03:27 4 MG Norepinephrine 250 ml @ 0 mls/hr PROTOCOL IV 06/23/24 21:00 07/23/24 20:59 Ondansetron HCl (zoFRAN 4MG INJ) 4 mg Q6H PRN IV NAUSEA/VOMITING 05/23/24 20:30 06/22/24 20:29 DC Pantoprazole Sodium (PROTonix 40MG INJ) 40 mg BID IVP 06/12/24 21:00 07/12/24 20:59 06/30/24 08:28 40 MG Pharmacy Profile Note (Lace Assessment) 1 each AD MISC 06/27/24 18:00 06/27/24 18:40 DC Pharmacy Profile Note (Lace Assessment) 1 each AD MISC 06/17/24 16:30 06/17/24 16:27 DC Pharmacy Profile Note (Pharmacy Communication) 1 each ONCE MISC 06/11/24 14:30 06/11/24 15:53 DC Pharmacy Profile Note (Pharmacy Communication) 1 each ONCE MISC 06/11/24 20:30 06/11/24 20:14 DC Pharmacy Profile Note (Pharmacy Communication) 1 each ONCE MISC 06/12/24 17:00 06/12/24 17:07 DC Pharmacy Profile Note (Pharmacy Communication) 1 each ONCE MISC 06/24/24 13:00 06/24/24 12:43 DC Pharmacy Profile Note (Pharmacy Communication) 1 each ONCE MISC 06/23/24 20:30 06/23/24 20:32 DC Phenylephrine HCl 10 mg/Sodium Chloride 251 ml @ 0 mls/hr AD PRN IV DIRECTED 06/11/24 03:00 06/12/24 18:12 DC 06/12/24 14:10 47 MLS/HR Phenylephrine HCl 50 mg/Sodium Chloride 250 ml @ 0 mls/hr PROTOCOL PRN IV PROTOCOL 06/12/24 18:00 07/12/24 17:59 06/13/24 08:57 12.45 MLS/HR Polyethylene Glycol (MIRalax 3350 17 GM POWD.PACK) 17 gm DAILY PO 06/22/24 09:00 07/22/24 08:59 06/29/24 08:57 17 GM Potassium Chloride 100 ml @ 100 mls/hr AD PRN IV POTASSIUM PROTOCOL 05/28/24 08:00 06/27/24 07:59 DC Potassium Chloride (K-Dur/Klor-Con 20meq) 20 meq AD PRN PO POTASSIUM PROTOCOL 05/28/24 08:00 06/27/24 07:59 DC Potassium Chloride (KCl 10% Elixir 20meq/15ml) 20 meq AD PRN PO POTASSIUM PROTOCOL 05/28/24 08:00 06/27/24 07:59 DC Prednisone (deltaSONE/ oraSONE 20MG TAB) 20 mg DAILY PO 06/10/24 09:00 06/14/24 08:39 DC 06/13/24 08:15 20 MG Rocuronium [place] 100 mg/ Sodium Chloride 100 ml @ 0 mls/hr PROTOCOL IV 06/24/24 08:30 06/25/24 02:44 DC 06/25/24 01:00 0 MLS/HR Rocuronium [place] 200 mg/ Sodium Chloride 200 ml @ 0 mls/hr PROTOCOL IV 06/25/24 03:00 07/24/24 08:29 06/30/24 10:23 48.6 MLS/HR Rocuronium [place] (ZemuRON) 10 mg Q1H PRN IV RESP DISTRESS/VENT DISYNCHRONY 06/11/24 20:30 06/11/24 23:29 DC 06/11/24 20:33 10 MG Rocuronium [place] (ZemuRON) 50 mg Q4H PRN IV VENT DYSSYNCHRONY 06/17/24 16:30 06/23/24 16:19 DC 06/23/24 04:03 50 MG Sodium Chloride 500 ml @ 500 mls/hr Q1H IV 06/02/24 20:00 06/02/24 20:59 DC 06/02/24 21:34 500 MLS/HR Sodium Chloride 1,000 ml @ 0 mls/hr Q0M IV 06/26/24 19:00 06/29/24 17:27 DC Sodium Chloride 1,000 ml @ 75 mls/hr [id number] IV 06/07/24 13:30 06/10/24 17:02 DC 06/10/24 09:05 75 MLS/HR Sodium Chloride (Sodium Chloride) 1,000 mg BIDAC PO 06/07/24 16:30 06/09/24 07:28 DC 06/08/24 16:58 1,000 MG Sodium Chloride (Sodium Chloride) 1,000 mg BIDAC PO 06/09/24 07:30 06/12/24 16:35 DC 06/12/24 12:30 1,000 MG Sodium Chloride (Sodium Chloride) 1,000 mg Q12H PO 06/12/24 21:00 07/09/24 07:29 06/30/24 08:28 1,000 MG Sodium Zirconium Cyclosilicate (Lokelma) 5 gm DAILY10 PO 06/08/24 10:30 06/10/24 10:29 DC 06/08/24 10:50 5 GM Thiamine HCl (Vitamin B-1) 100 mg DAILY IVP 06/28/24 09:00 07/28/24 08:59 06/30/24 08:28 100 MG Trimethoprim/ Sulfamethoxazole (BactRIM DS) 1 tab BID PO 05/26/24 21:00 05/29/24 16:18 DC 05/29/24 08:07 1 TAB Trimethoprim/ Sulfamethoxazole (BactRIM DS) 2 tab TID PO 05/29/24 16:30 06/05/24 20:59 DC 06/05/24 14:55 2 TAB Trimethoprim/ Sulfamethoxazole (BactRIM DS) 2 tab TID PO 06/06/24 09:30 06/11/24 21:54 DC 06/10/24 13:58 2 TAB Trimethoprim/ Sulfamethoxazole 160 mg/Dextrose 250 ml @ 333.333 mls/hr BID@0600,1800 IV 06/22/24 06:00 06/22/24 17:17 DC 06/22/24 06:25 333.333 MLS/HR Trimethoprim/ Sulfamethoxazole 160 mg/Dextrose 250 ml @ 333.333 mls/hr DAILY IV 06/23/24 09:00 07/02/24 05:59 06/30/24 09:44 333.333 MLS/HR Trimethoprim/ Sulfamethoxazole 320 mg/Dextrose 500 ml @ 333.333 mls/hr Q8H IV 06/19/24 00:30 06/21/24 21:30 DC 06/21/24 16:16 333.333 MLS/HR Trimethoprim/ Sulfamethoxazole 320 mg/Dextrose 500 ml @ 500 mls/hr Q8H IV 06/11/24 22:30 06/12/24 16:35 DC 06/12/24 06:39 500 MLS/HR Trimethoprim/ Sulfamethoxazole 320 mg/Dextrose 500 ml @ 500 mls/hr Q8H IV 06/12/24 18:00 06/13/24 11:13 DC 06/13/24 05:30 500 MLS/HR Trimethoprim/ Sulfamethoxazole 320 mg/Dextrose 500 ml @ 500 mls/hr Q8H IV 06/13/24 13:30 06/18/24 21:55 DC 06/18/24 14:08 500 MLS/HR Trimethoprim/ Sulfamethoxazole 320 mg/Dextrose 500 ml @ 500 mls/hr Q8H IV 06/18/24 11:59 06/19/24 00:56 DC 06/18/24 11:59 500 MLS/HR Valganciclovir (ValGANCIClovir HCL) 900 mg BID PO 06/11/24 21:00 06/13/24 08:37 DC Wound Care/ Dressing Products (Venelex Ointment) 1 VOLODYMYR AD TID TP 06/14/24 14:00 07/14/24 13:59 06/30/24 08:32 1 GM DIAGNOSTICS / RADIOLOGY: [ ] ASSESSMENT: Acute hypoxemic respiratory failure, POA Bilateral lower lobe bacterial pneumonia + MRSA POA, +Azra Suspected PCP PNA based on CT findings vs viral/Atypical PNA . 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 Currently the patient on FiO2 100%. Today creatinine at 2.2, continue to follow Nephrology input and recommendations. Continue fentanyl, Versed, Precedex, and rocuronium. Continue broad-spectrum antibiotics Continue gancyclovir IV q.12 hours. Continue Solu-Medrol 80 mg IV q.8 hours Continue to follow infectious disease input and recommendation Continue to follow daily chest x-ray and ABG. Further orders per hospitalization course Prognosis of this patient remains poor and guarded. Son at bedside during my visit, updated, all questions answered. Disposition: Pending improvement in clinical condition. time spent: > 35 min GAIL WALDRON MD Jun 30, 2024 13:21
[2024-07-01] VITALS (65 sets, daily range): BP systolic 93–148; BP diastolic 47–78; PULSE 49–104; RESP 21–44; TEMP 97.6–98.3; O2SAT 4–92
[2024-07-01] MEDS: DEXTROSE 50%-WATER 50 ML DISP.SYRIN IV ONE (01:09)
[2024-07-01 04:04] LABS: IMMATURE GRANULOCYTE ABSOLUTE 0.04 K/uL (0-1); LYMPHOCYTES # (AUTO) 0.1 K/uL (1.0-4.8); LYMPHOCYTES % (AUTO) 2.3 % (21.0-51.0); MEAN CORPUSCULAR HEMOGLOBIN 33.5 pg (27.0-33.0); MEAN CORPUSCULAR HGB CONC 34.3 g/dL (32.0-36.0); MEAN CORPUSCULAR VOLUME 97.6 fL (79-99); MONOCYTES % (AUTO) 0.3 % (3.0-13.0); NEUTROPHILS # (AUTO) 2.9 K/uL (1.8-7.7); NEUTROPHILS % (AUTO) 96.1 % (40.0-77.0); PLATELET COUNT (AUTO) 66 K/uL (130-400); RED BLOOD CELL COUNT(AUTO) 2.12 MIL/uL (4.00-5.50); RED CELL DISTRIBUTION WIDTH 14.3 % (11.0-15.5)
[2024-07-01 04:11] LABS: HEMATOCRIT 20.7 % (36-48)
[2024-07-01 04:15] LABS: INR 1.02 (0.85-1.15); PROTHROMBIN TIME 11.4 SEC (9.6-11.6)
[2024-07-01 04:16] LABS: CREATININE 3.2 mg/dL (0.5-1.0); POTASSIUM 5.5 mmol/L (3.5-5.1)
[2024-07-01 04:47] LABS: LYMPHOCYTES % (MANUAL) 1 % (22-44); MAN.DIFF COMMENT-IMPRESSION MANUAL DIFFERENTIAL; SEGMENTED NEUTROPHILS % 99 % (40-70); TOTAL CELLS COUNTED 100
[2024-07-01] MEDS: DEXTROSE 50%-WATER 50 ML DISP.SYRIN IV PRN (05:23)
[2024-07-01] MEDS: MIDAZOLAM 50MG-0.9% NS 50ML 50 ML IV PRN (05:32)
[2024-07-01] MEDS: NA ZIRCON CYCLOSIL(LOKELMA 10GM) PO ONE (08:40)
--- NOTE | 2024-07-01 09:24 | PN ---
[facility] PROGRESS NOTE Date Patient Seen: Jul 01, 2024 Time of Visit: 09:23 Supervising Physician: Jewel Evans MD Primary Care Physician: Stu Foss MD Outpatient Specialists: Inpatient Consults: Pulmonology PROBLEM LIST: - Acute hypoxic hypercapnic respiratory failure on mechanical ventilator support via ETT - Severe Adult Respiratory Distress Syndrome - MODS (respiratory, Liver , and kidneys) - RADHA - Hyperkalemia improved - Transaminitis - Bilateral lower lobe pneumonia with positive MRSA and confirmed PCP - Disseminated herpes simplex viral infection - Newly diagnoses HIV with AIDS - Morbid obesity, BMI 31.4 - Severe protein calorie malnutrition - Former tobacco use disorder INTERVAL HISTORY: 07/01/24- patient continues sedated and paralyzed on the ventilator with max FiO2 of 100% and PEEP of 10. She continues with pressure control setting because she is not tolerating assist-control mode. She is off pressors but continues with fentanyl, Versed, rocuronium and Precedex drip. She is hemodynamically stable. Blood pressure 146/72 heart rate in the 80s respiratory rate of 41 saturating 84% and she has been afebrile with a T-max of 98.2 and a T low of 97 in the last 24 hours. Urine output minimal 35 mL in the last 24 hours with a positive 3.2 L balance. She is up 20 kg from admission. WBCs are 3.0 H&H 7.1/20.7 platelet count is 66 K. chemistry sodium is 140 potassium 5.5 covered with Lokelma 10 g 3 times a day per NG tube creatinine of 3.2 GFR of 17 worsening kidneys. She had an episode of hypoglycemia this morning discontinue all insulin at this time. We will total calcium of 6.3 liver enzymes trended down albumin 1.5, chest x-ray with a bilateral pulmonary infiltrates. Stable exam. Same as before no worrisome interval changes have taken place. ABGs today with worsening o2 pH 7.28 pCO2 53 PO2 of 59 bicarb 24.6. Per tick sewer patient is a high-risk of cardiac arrest if hemodialysis treatment started.This was explained to Son Dagoberto by DR Zapata. I spoke to Jessika at the bedside who is the POA. Goal of this conversation was to discuss goals of care. I discussed regarding what advanced directives in detail and what advanced care planning entails. We also discussed CODE STATUS. I informed Dagoberto that in the case of cardiopulmonary demise, resuscitation efforts including chest compressions and intubations do not lead to ideal postresuscitative outcomes. We discussed patient's particular disease processes and how this could be potentially impacting the patient's outcome in the event of a cardiopulmonary arrest. All questions related to resuscitation, CODE STATUS, advanced directives were answered in detail. Dagoberto wishes for pt to not receive resuscitated measures such as CPR. We will change CODE STATUS to DO NOT RESUSCITATE. For now we will continue all supportive care. REVIEW OF SYSTEMS: Unable to obtain ROS from patient due to patient's medical condition. PHYSICAL EXAM: GENERAL: Sedated and paralyzed, intubated currently SUPINE HEENT: Sclera non icteric, dry scabs and sores to mucosa, sore to rt cheek, swelling to periorbital regions NECK: short neck no JVD, trachea midline LUNGS: diminished bilaterally lobes no wheezing HEART: Regular rate and rhythm. Normal S1 and S2, without murmurs ABD: Abdomen soft, nontender. Bowel sounds hypoactive last BM last night 06/29/24 per RN report EXT: No clubbing cyanosis or edema, sore to sacral area, NEURO: Intubated sedated and paralyzed. Vital Signs (last 8hr) Date Time Temp Pulse Resp B/P (MAP) Pulse Ox O2 Delivery O2 Flow Rate FiO2 07/01/24 06:30 51 44 109/61 (77) 91 07/01/24 06:15 52 44 111/62 (78) 91 07/01/24 06:00 52 44 108/60 (76) 90 07/01/24 05:45 53 43 108/60 (76) 90 07/01/24 05:30 54 43 116/63 (80) 90 07/01/24 05:15 54 43 106/57 (73) 88 07/01/24 05:00 51 43 109/61 (77) 92 07/01/24 04:45 51 43 108/60 (76) 92 07/01/24 04:30 52 43 109/61 (77) 91 07/01/24 04:15 52 43 108/60 (76) 91 07/01/24 04:00 91 Ventilator+ 100 07/01/24 04:00 97.7 07/01/24 04:00 100 07/01/24 04:00 52 43 93/70 (78) 91 07/01/24 03:45 52 43 101/61 (74) 90 07/01/24 03:30 52 43 101/60 (74) 90 07/01/24 03:15 52 43 105/58 (74) 90 07/01/24 03:01 52 100 07/01/24 03:00 53 42 105/58 (74) 91 07/01/24 02:45 52 41 105/58 (74) 91 07/01/24 02:30 52 41 104/58 (73) 91 07/01/24 02:15 53 41 105/57 (73) 92 07/01/24 02:00 66 41 121/65 (83) 92 07/01/24 01:45 64 43 123/65 (84) 92 07/01/24 01:30 77 39 144/74 (97) 92 LABS: Hematology Labs: Test 07/01/24 03:32 Range/Units White Blood Count 3.0 #L 4.8-10.8 K/uL Red Blood Count 2.12 L 4.00-5.50 MIL/uL Hemoglobin 7.1 L 12.0-16.0 g/dL Hematocrit 20.7 *L 36-48 % Mean Corpuscular Volume 97.6 79-99 fL Mean Corpuscular Hemoglobin 33.5 H 27.0-33.0 pg Mean Corpuscular Hemoglobin Concent 34.3 32.0-36.0 g/dL Red Cell Distribution Width 14.3 11.0-15.5 % Platelet Count 66 L 130-400 K/uL Mean Platelet Volume 11.0 H 7.5-10.5 fL Immature Granulocyte % (Auto) 1.3 H 0-1 % Neutrophils (%) (Auto) 96.1 H 40.0-77.0 % Lymphocytes (%) (Auto) 2.3 L 21.0-51.0 % Monocytes (%) (Auto) 0.3 L 3.0-13.0 % Eosinophils (%) (Auto) 0.0 0.0-8.0 % Basophils (%) (Auto) 0.0 0.0-5.0 % Neutrophils # (Auto) 2.9 1.8-7.7 K/uL Lymphocytes # (Auto) 0.1 L 1.0-4.8 K/uL Monocytes # (Auto) 0.0 L 0.1-1.0 K/uL Eosinophils # (Auto) 0.00 0.00-0.70 K/uL Basophils # (Auto) 0.00 0.00-0.20 K/uL Absolute Immature Granulocyte (auto 0.04 0-1 K/uL Segmented Neutrophils % 99 H 40-70 % Lymphocytes % (Manual) 1 L 22-44 % Nucleated Red Blood Cells 0.0 0.0-0.19 % Differential Comment MANUAL DIFFERENTIAL White Cell Morphology Comment Platelet Morphology Comment Red Blood Cell Morphology Chemistry Labs: Test 07/01/24 06:03 07/01/24 03:32 07/01/24 00:24 06/30/24 04:36 Range/Units Whole Blood Glucose 115 #H 70-110 MG/DL Sodium Level 140 136-145 mmol/L Potassium Level 5.5 H 3.5-5.1 mmol/L Chloride Level 106 101-111 mmol/L Carbon Dioxide Level 29 21-32 mmol/L Blood Urea Nitrogen 119 *H 7-18 mg/dL Creatinine 3.2 H 0.5-1.0 mg/dL Glomerular Filtration Rate Calc 17 >90 mL/min Random Glucose 66 L 70-105 mg/dL Total Calcium 6.3 L 8.5-10.1 mg/dL Magnesium Level 2.10 1.80-2.40 mg/dL Bedside Glucose Comment Notified Nurse Total Bilirubin 0.3 0.2-1.0 mg/dL Aspartate Amino Transf (AST/SGOT) 77 H 10-37 U/L Alanine Aminotransferase (ALT/SGPT) 106 H 12-78 U/L Alkaline Phosphatase 132 50-136 U/L Total Protein 3.8 L 6.0-8.3 g/dL Albumin 1.5 L 3.5-5.0 g/dL Coagulation Labs: Test 07/01/24 03:32 Range/Units Prothrombin Time 11.4 9.6-11.6 SEC Prothromb Time International Ratio 1.02 0.85-1.15 DIAGNOSTICS / RADIOLOGY RESULTS: IMAGING REPORT Signed PATIENT: RIO OSORIO MR#: [id number] : 1975 SEX: F AGE: 49 LOCATION: [facility] ORDER 99 STATUS: ADM IN REPORT#: [id number] SERVICE 06 REASON: Hypoxic respiratory failure ORDERING PHYSICIAN: MARGO LOGAN PROCEDURE: CXR1VW - CHEST 1VW Exam Type: CHEST 1VW Clinical Information: Hypoxic respiratory failure Comparison: None Findings: Pulmonary pattern is as before. No worrisome interval changes have taken place. Impression: Stable exam. DICTATED BY: FITZ NICOLAS MD DATE: 06/30/24899 ELECTRONICALLY SIGNED BY: FITZ NICOLAS MD DATE: 06/30/24902 PLAN Continue sedation with fentanyl, versed continue rocuronium drip to help with ventilator synchrony cessation. manage vent per abg maintain plateu pressure of < 30 as much possible Continue steroids Lokelma tid for hyperkalemia Follow nephrology recommendations. ABX per ID Continue Atrovent q.4 hours. prn Panculture if febrile Son is POA Hold AC chemical PPX due to thrombocytopenia. NEURO: Minimize central acting medications as possible. Fall Precautions. Well lighted room through the day and minimize interruptions through the night to prevent acute delirium. PULMONARY: Supplemental 02 as needed Titrate Fio2 to keep Spo2 > or = 90% DuoNebs and CPT as needed IS hourly while awake for pulmonary hygiene Out of bed to chair as tolerated Ventilator settings: Assist-control pressure control, pressure control of 32, respiratory rate 34, FiO2 100% and PEEP of eight. CARDIOVASCULAR: Follow hemodynamics. Titrate vasopressor to keep MAP >65 or systolic blood pressure >95mmHg Telemetry LINES: CVC RT IJ Arterial line ET tube' FC OG tube GI & NUTRITION: Continue nutritional support Aspirations precautions Prokinetic agents and laxatives as needed KIDNEYS & ELECTROLYTES: Strict monitoring of intake and output Daily weights Avoid nephrotoxic agents Monitor electrolytes and replace as needed Goal urine output of 30mL/hr or 0.5mL/kg/hr ENDOCRINE: Maintain blood glucose between 100-180 at all times. Insulin sliding scale for blood glucose management INFECTIOUS DISEASE: Trend temperature. Clarke-culture if febrile. Sputum culture from 05/23/24 positive for MRSA, Betty albicans Pneumocystis carinii antigen positive Panculture: 06/02/24 Blood cultures Urine cultures Respiratory culture Antibiotics: Bactrim DS Fluconazole Valganciclovir HEMATOLOGY & COAGULATION: Monitor H&H. Keep Hgb > 7 Transfuse 1 unit of PRBC for Hgb < 7 Transfuse 1 pack of platelets of platelets < 20, 000 Watch for any signs and symptoms of bleeding SKIN: Pressure ulcer prevention per facility protocol Rehab: PT/OT Prophylaxis: GI: Pepcid DVT: SCD hold AC Code Status: DNR Disposition: Continues in ICU Other: Critical care time I personally spent 45 minutes of critical care time in treatment of this patient. This includes patient management, time at bedside, time reviewing tests, labs, appropriate images and studies, documentation, and patient care coordination. This time excludes separately billable procedures. MARGO LOGAN [facility] Jul 01, 2024 09:23
[2024-07-01 09:43] LABS: ABG BASE EXCESS -2.8 mmol/L (-2.0-3.0); ABG HCO3 24.6 mmol/L (21.0-28.0); ABG PCO2 53 mmHg (32-45); ABG PH 7.282 (7.350-7.450); VENT MODE, BG PC (ROOM AIR)
--- NOTE | 2024-07-01 09:58 | NUR ---
SS F/u Sw visited with pt's niece at bedside. Per niece, extended family is in acceptance that pt is not going to survive this admission. Since only pt's son, daughter, this niece and Edie pt's sister know of HIV dx, it has been difficult for them to keep pt's privacy, but they will continue to honor her wishes to not disclosed. Niece states she and pt's sister are ready to let pt go, but pt's son seems to be in denial. THe four are aware that dialysis is too high risk and understands it is not an option, but he does not seem to want to make any decisions. Offered to have Dr moore speak to son again, now that condition has changed. Informed niece that Dr Moore is following the case and available if needed.
--- NOTE | 2024-07-01 11:00 | PN ---
[facility] PROGRESS NOTE Date of Service: Jul 01, 2024 Time of Service: 10:56 SUBJECTIVE: [ ] Ms. Abdullahi is a 49-year-old female that was seen and examined today on 05/23/2024. Patient is a good historian and personal health. Patient's son Dagoberto Salcido is at bedside. Patient states that she came to the emergency department with a chief complaint of shortness of breath. Onset was two weeks ago. Location is to lungs. Duration is on and off. Character is described as "easily running out of air." Initially shortness and breath was only aggravated with climbing one or two flights of stairs but symptoms have progressively worsened and patient becomes short of breath even standing or walking short distances. There was no alleviating factors however previously symptoms were being controlled with daily morning albuterol nebulizer treatments. Patient denies any associated chest pain or dizziness. Patient reports an episode of COVID in December 2023. emergency department CBC unremarkable, chemistry unremarkable, urinalysis unremarkable, influenza screen negative, COVID negative, blood gas shows PO2 less than 45. Chest x-ray shows left lower lung pneumonia and minimal right lung base atelectasis. Upon arrival to the emergency department patient was placed on a BiPAP due to respiratory distress. 05/24/2024-patient was seen and examined at the bedside, still on BiPAP. Patient is able to speak, and says she feels much better than before. Patient says after COVID in December she developed severe bronchitis and she was on Solu-Medrol and albuterol, which did not help her much and later she had high fevers and shortness of breath which is when she came to the ED.Vitals afebrile pulse 76, RR 38 tachypneic , blood pressure 115/68, pulse oxygen 99 on BiPAP flow of 60. On ABG pH 7.47, pCO2 29, PO2 109.4, oxygen saturation 98.3. Okyyel419 potassium 4.1 BUN15 creatinine 0.5 GFR 114. We will closely monitor the patient. Television Announcer consult noted waiting on the recommendation 05/25/24 patient was seen and examined and case discussed with RN and family by the bedside. She was breathing better today. She has been on BiPAP all night but now he was on 100% non-rebreather with further efforts to continue to wean the oxygen requirements down. 05/26/24 patient was seen and examined and case discussed with the RN. No acute events noted overnight. Appreciate pulmonology and ID input continue IV antibiotics and fluconazole. 05/27/24 patient is seen and examined at bedside, acute events overnight, case discussed with the RN, BP 131/64, afebrile, saturating 96-97% via Ventimask, FiO2 40%. The patient admits cough productive of clear phlegm. Serology tests reviewed, HIV preliminary positive, discussed with the patient. 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 We will continue the patient on IV antibiotics, continue fluconazole, continue to follow Pulmonary and ID input and recommendations. After provided in the preliminary results of HIV test, she denies any suicidal or homicidal ideations. 05/28 patient has been seen and examined, no acute events overnight, case discuss ed with the RN, during my visit patient is sitting comfortably in the chair, hemodynamically stable, off Ventimask, currently on 10 L via nasal cannula, saturating 98%, tolerated BiPAP overnight. she feels better, less shortness a breath, still admits cough productive of yellow phlegm. No chest pain. Getting IV antibiotics during my visit. HIV P24 antigen, nonreactive. We will continue to follow Pulmonary and Infectious Disease input and recommendations. 05/29 patient has been seen and examined, no acute events overnight, case discussed with the RN, during my visit patient is sitting comfortably in the chair, hemodynamically stable, remains on 10 L via nasal cannula, saturating 98%, still admits cough productive of yellow phlegm. No chest pain. Getting IV antibiotics during my visit. HIV P24 antigen, nonreactive. Pending CD4 cell count. We will continue to follow Pulmonary and Infectious Disease input and recommendations. 05/30 the patient has been seen and examined, no acute events overnight, BP 11 4/66, during my visit she is on Ventimask, saturating 95%, FiO2 60%. Without the Ventimask the patient desaturates to the low 70s. Patient tolerating BiPAP during the night. Still admits cough productive of thick yellow phlegm, no chest pain. Results of CD4 cell count reviewed, discussed with the patient. We will continue broad-spectrum IV antibiotics. Continue to follow Pulmonary and Infectious Disease input and recommendations. 05/31 the patient has been seen and examined, upgraded to the ICU, during my visit she is sitting in the chair, BP 113/72, heart rate of 109, she is on Oxymizer, 30 L, FiO2 100%. She is alert oriented x3, still admits cough productive of thick yellow phlegm, no chest pain. Hemoglobin 12.9, hematocrit 36.6, WBC 14.6. ABG with pH 7.4, pCO2 40, PO2. Chest x-ray shows left lower lobe infiltrate consistent with pneumonia. She is getting IV antibiotics during my visit. Patient will remain in the ICU, continue to follow critical Care as well as infectious disease input and recommendations. 06/01 patient is seen and examined, sitting comfortable in chair, awake, following commands, remains on high-flow oxygen, FiO2 70%, 30 L, BP 117/67, heart rate of 78, respiratory rate of 30-36, saturating 100%, CBC with a hemoglobin 13.6, hematocrit 38.9, WBC 12.4. Platelet count of 341. Chest x-ray showing persistent left lung infiltrate, cardiac size and mediastinum unremarkable. The bony structures are within the normal limits. Patient getting IV antibiotics during my visit. Patient to continue with the high-dose steroids. Serology test positive for Pneumocystis sandra. Patient on Bactrim two tablets p.o. t.i.d.. Continue also doxycycline and cefepime IV. Continue to follow infectious disease input and recommendation. Continue to follow Pulmonary input and recommendations. 06/02 patient is seen and examined at bedside, currently in prone position, alert oriented x3. CPT started last night, she has started having more loose phlegm expectorated. BP 114/74, tachycardic 114, saturating 95%, high-flow nasal cannula, 30 L, FiO2 80%. CBC with a hemoglobin 16.9, hemoglobin 14 0, hematocrit 39.8, platelet count 347. Chest x-ray shows persistent left lung infiltrate. 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 Serology test for toxoplasma currently pending. Patient on IV antibiotics as well as high-dose steroids. Continue to follow infectious Disease and Pulmonary input and recommendations. 06/03 patient seen at bedside, no acute events overnight. She continues with respiratory distress, with increasing oxygen requirements. Critical Care has discussed a possible need for intubation if she does not improve. She has been started on steroids due to underlying PCP pneumonia. WBC improved from 16.9 down to 13.5, sodium stable at 132, same as yesterday, lactic acid downtrending from 4.1 down to 3.2, remainder of her labs are relatively unremarkable. 06/04 patient seen at bedside, no acute events overnight. She remains on high- flow nasal cannula, mildly tachycardic. WBC elevated at 13.3, sodium decreased from 132 down to 129, remainder of her labs are relatively unremarkable. Continue to wean supplemental oxygen. Further care per critical Care 06/05 patient seen at bedside, no acute events overnight. She remains on high- flow nasal cannula with BiPAP overnight and is still tachycardic. Heart rate ranging from 104 up to 113, WBC improved from 13.3 down to 11.1, sodium decreased from 120 down to 126, remainder of her labs are relatively unremarkable. We will continue to wean oxygen as able. 06/06 Patient seen at bedside, no acute events overnight. She remains on high- flow nasal cannula with BiPAP overnight and is still tachycardic. Heart rate ranging from 104 up to 122, WBC improved from 11.1 down to 10.6, sodium improved from 126 up to 129, remainder of her labs are relatively unremarkable. We will continue to wean oxygen as able. 06/07 patient seen at bedside, no acute events overnight. She is still on high- flow nasal cannula, RT advised to wean oxygen, currently saturating 100% on 30L. She is tachycardic, sodium decreased from 129 down to 123, likely secondary to Bactrim. Patient is asymptomatic, will continue with bactrim, if sodium cont inues to decrease consider a holiday from bactrim. 06/08 patient seen at bedside, no acute events overnight. She is still on high- flow nasal cannula, RT advised to wean oxygen, currently saturating 100% on 30L. She is tachycardic, sodium stable at 123, same as yesterday. Pending improvement in respiratory status 06/09 patient seen at bedside, he remains on high-flow nasal cannula, we will continue to wean as able, appreciate pulmonology assistance, tachycardic with heart rate ranging from 123 up to 130. She is still having low-grade fevers at 100.8. Sodium increased from 123 up to 130, remainder of her labs are relatively unremarkable. 06/10 patient is seen and examined at bedside, remains on high-flow oxygen, she feels mildly anxious, no chest pain. Still with a cough productive of white phlegm. Still tachycardic, heart rate 117-122. Patient is still spiking low- grade fever. Hemoglobin 10.9, hematocrit 30.5. Sodium remained low at 128, BUN and creatinine of 16 and 0.4. 06/11 patient is seen and examined at bedside, patient now on AVAPS, FiO2 100%, patient became restless last night, she had to be started on Precedex. During my visit she remains alert oriented x3, no chest pain. BP 120/48, she is saturating 100%. Hemoglobin 10 point, hematocrit 31.3. ABG shows persistent hypoxemia, with a PO2 of 69.4. Chest x-ray shows extensive infiltrates on the left which is stable to somewhat increased, there has been interval development of perihilar infiltrate on the right. Normal bilateral lower extremity venous Doppler ultrasound. Continue the patient on prednisone 20 mg p.o. daily, continue Bactrim two tablets p.o. t.i.d. as well as fluconazole 100 mg p.o. daily. 06/12 patient is seen and examined at bedside, intubated, on mechanical ventilation, per discussion with the RN, patient was in respiratory distress yesterday, decision made to intubate the patient. During my visit the patient is midazolam, fentanyl, patient paralyzed, also on Nimbex. She is in a prone position. On pressor support with phenylephrine. Also on Precedex. She is also on hydrocortisone 100 mg IV q.8 hours. Son at bedside, updated. ABG shows pH 7.38, pCO2 47, PO2 122, bicarb of 27.7. 06/13 patient is seen and examined at bedside, remains intubated, on mechanical ventilation, remains on midazolam, fentanyl, patient paralyzed, also on Nimbex. She is in a prone position. On BP pressor support with phenylephrine. Patient is peep of seven. ABG pH 7.34, PO2 72.3. Chest x-ray reviewed, increasing bilateral infiltrates, increasing pneumomediastinum. 06/14 patient is seen and examined at bedside, remains intubated, on mechanical ventilation, prone position, remains on midazolam, fentanyl, patient paralyzed, also on Nimbex. She is in a prone position. Off pressors. Patient is peep of seven. ABG pH 7.34, PO2 72.3. Chest x-ray shows extensive bilateral infiltrates unchanged, no pneumothorax. 06/15 patient is seen and examined at bedside, remains intubated, on mechanical ventilation, prone position, remains paralyzed, on Nimbex. Off pressors. Patient is peep of 10. ABG pH 7.34, PO2 72.3. Chest x-ray shows extensive bilateral infiltrates unchanged, no pneumothorax. Overall condition remains unchanged. No family at bedside. 06/16 patient is seen and examined at bedside, remains intubated, on mechanical ventilation, discussed with the RN, the patient has been placed on supine position. Patient remains on pressor support. Remains on sedation with midazolam and fentanyl BP 114/60, afebrile saturating 96% FiO2 100%, peep of 8. ABG today with pCO2 63, PO2 91.5. Chest x-ray with severe consultation both lungs, unchanged, interval development of pneumomediastinum, moderate to severe. Continue Solu-Medrol 80 mg IV q.8 hours, continue broad-spectrum antibiotics with meropenem 1 g IV q.8 hours, the patient remains on Bactrim. Continue ganciclovir. 06/17 patient seen at bedside, no acute events overnight. She remains intubated, paralyzed on FiO2 of 100% and PEEP of eight. Continue to try to wean towards extubation. Chest x-ray appears mildly improved from yesterday. She remains supine. Hemoglobin improved from 8.4 up to 8.6, platelets decreased from 121 d own to 112, CO2 elevated at 41, same as yesterday, remainder of her labs are relatively unremarkable. Patient is still critical with poor prognosis continue further care per critical care team. 06/18 patient seen at bedside, no acute events overnight. She remains intubated and sedated, critical care weaning patient off paralyzing agents. She is still on FiO2 of 100% with PEEP of eight, PO2 on ABG 70.8 down from 80.5 yesterday demonstrating a worsening and her oxygenation within her blood at the same venti lator settings. PCO2 increased from 70 up to 75. Hemoglobin improved from 8.6 up to 9.0, platelets improved from 112 up to 127, CO2 increased from 41 up to 45, remainder of her labs are relatively unremarkable. 06/19 patient seen at bedside, no acute events overnight. She remains intubated and sedated, critical Care to continue trying to wean to extubation. Continue current care further recommendations per critical Care 2 patient is seen and examined at bedside, no acute events overnight, she remains intubated, on mechanical ventilation, off vasopressors, sedated with fentanyl and Versed, the patient on peep of 8, saturating 97%. 06/21 patient seen at bedside, no acute events overnight. She remains intubated, paralyzed on FiO2 of 100% and PEEP of eight. Continue to try to wean towards extubation. She remains supine. Chest x-ray stable. Hemoglobin at 8.6, hematocrit 28.4. remainder of her labs are relatively unremarkable. Patient is still critical with poor prognosis continue further care per critical care team. 06/22 patient seen at bedside, no acute events overnight. She remains intubated, paralyzed on FiO2 of 100% and PEEP of eight. Continue to try to wean towards extubation. She remains supine. Chest x-ray stable. Patient is still criti vito with poor prognosis continue further care per critical care team. 06/23 patient seen at bedside, no acute events overnight. She remains intubated, on FiO2 of 90% and PEEP of eight, ABG showing improved oxygenation will wean down to 80%. Continue to try to wean towards extubation. She remains supine. Chest x-ray improved from previous. Patient is still critical with poor p rognosis continue further care per critical care team. 06/24 patient seen at bedside, she had several desaturation episodes overnight however she is currently saturating well, ABG looks good. We will wean her FiO2 to 80% and continue to monitor. Continue to try and wean towards extubation. Hemoglobin decreased from 10.4 down to 9.0, platelets decreased from 125 down to 110, potassium decreased from 5.4 down to 5.2, CO2 increased from 43 up to 49, remainder of her labs are relatively unremarkable. 06/25 patient seen at bedside, she had several desaturation episodes overnight however she is currently saturating well, ABG pending this am. Continue to try and wean FiO2 and wean towards extubation. Hemoglobin decreased from 9.0 down to 8.5, platelets decreased from 110 down to 93, potassium decreased from 5.2 down to 4.9, CO2 improved from 49 down to 45, remainder of her labs are rel atively unremarkable. 06/26 patient seen at bedside, no acute events overnight. She continues to desaturate while retaining CO2, we will continue to try and wean as able. Patient was started on Biktarvy, WBC has increased up to 15.0. She is now tachycardic with heart rate ranging from 102 up to 122. Continue care per critical Care and Infectious Disease. Patient is very ill with a poor prognosis. 06/27 patient is seen and examined, remains intubated, on mechanical ventilation, sedated with fentanyl, rocuronium, Versed. Remains on vasopressors with Mario- Synephrine. BP 114/57. ABG with pH of 7.35, pCO2 63, PO2 65. Chest x-ray reviewed, persistent bilateral pulmonary infiltrates suggestive of pulmonary vascular congestion with possible superimposed pneumonitis, mild interval worsening seen. 06/28 patient is seen and examined at bedside, case discussed with the RN, patient is off vasopressors since yesterday, BP 111/59, still intubated, on mechanical ventilation, sedated. FiO2 100%, peep of eight. Chest x-ray still with persistent bilateral pulmonary infiltrates suggestive of pulmonary vascular congestion with possible superimposed pneumonitis. Patient getting broad- spectrum IV antibiotics at the time of my visit. Creatinine 2.2. Son at bedside, updated. 06/29 patient is seen and examined at bedside, case discussed with the RN, during my visit the patient remains in the intensive care unit, intubated, mechanical ventilation. She is still requiring Levophed for blood pressure support, remains on Precedex, fentanyl, Versed and rocuronium. Chest x-ray with pulmonary pattern as before, worrisome interval change. Creatinine 2.7. ABG with pH 7.27, pCO2 60, PO2 471. 06/30 seen and examined at bedside, remains intubated, on mechanical ventilation, still requiring Levophed for blood pressure support, sedated with Versed, Precedex, rocuronium. Getting broad-spectrum IV antibiotics at the time of my visit. Patient getting nutritional support via OG tube. Case discussed with critical Care, patient with the elevated creatinine, nephrology consultation requested for possible hemodialysis, per soa integration developer patient not a candidate. Chest x-ray with pulmonary patter stable. 2/17 Pt seen at bedside, is intubated and sedated at FiO2 100%. Still on low dose of pressors. Renal function continues to slowly deteriorate, consider holding nephrotoxic medications such as Bactrim, will defer to ID and critical care. She has very poor prognosis at this point, patient's POA continues to request aggressive medical intervention. Will continue with current medications, further care per critical care. REVIEW OF SYSTEMS 12 point review of systems negative unless noted in HPI PHYSICAL EXAM GENERAL APPEARANCE: Patient intubated, on mechanical ventilation. NEUROLOGICAL: Cranial nerves II-XII grossly intact. Motor is 5/5 in bilateral upper and lower extremities proximal to distal. No sensory deficits. HEENT: Face is symmetric. Pupils are equal and reactive. Extraocular movements are intact. NECK: Supple. No JVD. No thyromegaly. No submental, submandibular, pre- /postauricular, occipital or supraclavicular lymphadenopathy. CHEST: Normal chest expansion. No Telemetry. LUNGS: Bilateral rhonchi, no expiratory wheezing CARDIOVASCULAR: Regular. S1 and S2 normal. No appreciable rubs, murmurs or gallops. ABDOMEN: Soft, nontender, and nondistended. There is no rebound, voluntary guarding, or rigidity. : Deferred. No Souza. EXTREMITIES: Non-edematous and not cyanotic. No clubbing. Good capillary refill. SKIN: No skin breakdown. Vital Signs (last 8hr) Date Time Temp Pulse Resp B/P (MAP) Pulse Ox O2 Delivery O2 Flow Rate FiO2 07/01/24 09:48 51 100 07/01/24 09:00 53 21 105/59 (74) 90 100 07/01/24 08:57 100 07/01/24 08:00 97.5 07/01/24 08:00 97.5 52 34 109/62 (78) 92 100 07/01/24 08:00 89 Ventilator+ 100 07/01/24 07:00 51 44 110/62 (78) 92 100 07/01/24 06:30 51 44 109/61 (77) 91 07/01/24 06:15 52 44 111/62 (78) 91 07/01/24 06:00 52 44 108/60 (76) 90 07/01/24 05:45 53 43 108/60 (76) 90 07/01/24 05:30 54 43 116/63 (80) 90 07/01/24 05:15 54 43 106/57 (73) 88 07/01/24 05:00 51 43 109/61 (77) 92 07/01/24 04:45 51 43 108/60 (76) 92 07/01/24 04:30 52 43 109/61 (77) 91 07/01/24 04:15 52 43 108/60 (76) 91 07/01/24 04:00 91 Ventilator+ 100 07/01/24 04:00 97.7 07/01/24 04:00 100 07/01/24 04:00 52 43 93/70 (78) 91 07/01/24 03:45 52 43 101/61 (74) 90 07/01/24 03:30 52 43 101/60 (74) 90 07/01/24 03:15 52 43 105/58 (74) 90 07/01/24 03:01 52 100 07/01/24 03:00 53 42 105/58 (74) 91 LABS: Laboratory: Test 07/01/24 09:41 07/01/24 06:03 07/01/24 03:32 07/01/24 00:24 Range/Units Blood Gas Specimen Type Arterial Arterial Blood pH 7.282 L 7.350-7.450 Arterial Blood Partial Pressure CO2 53 H 32-45 mmHg Arterial Blood Partial Pressure O2 59.0 L 83.0-108.0 mmHg Arterial Blood HCO3 24.6 21.0-28.0 mmol/L Arterial Blood Oxygen Saturation 87.0 L 94.0-98.0 % Arterial Blood Base Excess -2.8 L -2.0-3.0 mmol/L Blood Gas Temperature 37.0 35.5-37.0 CELSIUS Blood Gas Respiration Rate 36.0 min. Blood Gas Vent Mode PC ROOM AIR FiO2 100.0 % Blood Gas PEEP 10 cm H2O Blood Gas Specimen Comment ALINEJOSE Whole Blood Glucose 115 #H 70-110 MG/DL White Blood Count 3.0 #L 4.8-10.8 K/uL Red Blood Count 2.12 L 4.00-5.50 MIL/uL Hemoglobin 7.1 L 12.0-16.0 g/dL Hematocrit 20.7 *L 36-48 % Mean Corpuscular Volume 97.6 79-99 fL Mean Corpuscular Hemoglobin 33.5 H 27.0-33.0 pg Mean Corpuscular Hemoglobin Concent 34.3 32.0-36.0 g/dL Red Cell Distribution Width 14.3 11.0-15.5 % Platelet Count 66 L 130-400 K/uL Mean Platelet Volume 11.0 H 7.5-10.5 fL Immature Granulocyte % (Auto) 1.3 H 0-1 % Neutrophils (%) (Auto) 96.1 H 40.0-77.0 % Lymphocytes (%) (Auto) 2.3 L 21.0-51.0 % Monocytes (%) (Auto) 0.3 L 3.0-13.0 % Eosinophils (%) (Auto) 0.0 0.0-8.0 % Basophils (%) (Auto) 0.0 0.0-5.0 % Neutrophils # (Auto) 2.9 1.8-7.7 K/uL Lymphocytes # (Auto) 0.1 L 1.0-4.8 K/uL Monocytes # (Auto) 0.0 L 0.1-1.0 K/uL Eosinophils # (Auto) 0.00 0.00-0.70 K/uL Basophils # (Auto) 0.00 0.00-0.20 K/uL Absolute Immature Granulocyte (auto 0.04 0-1 K/uL Segmented Neutrophils % 99 H 40-70 % Lymphocytes % (Manual) 1 L 22-44 % Nucleated Red Blood Cells 0.0 0.0-0.19 % Differential Comment MANUAL DIFFERENTIAL White Cell Morphology Comment Platelet Morphology Comment Red Blood Cell Morphology Prothrombin Time 11.4 9.6-11.6 SEC Prothromb Time International Ratio 1.02 0.85-1.15 Sodium Level 140 136-145 mmol/L Potassium Level 5.5 H 3.5-5.1 mmol/L Chloride Level 106 101-111 mmol/L Carbon Dioxide Level 29 21-32 mmol/L Blood Urea Nitrogen 119 *H 7-18 mg/dL Creatinine 3.2 H 0.5-1.0 mg/dL Glomerular Filtration Rate Calc 17 >90 mL/min Random Glucose 66 L 70-105 mg/dL Total Calcium 6.3 L 8.5-10.1 mg/dL Magnesium Level 2.10 1.80-2.40 mg/dL Bedside Glucose Comment Notified Nurse Test 06/30/24 04:36 06/29/24 11:27 Range/Units Total Bilirubin 0.3 0.2-1.0 mg/dL Aspartate Amino Transf (AST/SGOT) 77 H 10-37 U/L Alanine Aminotransferase (ALT/SGPT) 106 H 12-78 U/L Alkaline Phosphatase 132 50-136 U/L Total Protein 3.8 L 6.0-8.3 g/dL Albumin 1.5 L 3.5-5.0 g/dL Hemoglobin (Blood Gas) 8.6 L 12.0-16.0 g/dL Sodium (Blood Gas) 137 136-145 MMOL/L Bedside Potassium (Blood Gas) 4.7 H 3.4-4.5 MMOL/L Bedside Chloride (Blood Gas) 102 98-107 MMOL/L Bedside Glucose (Blood Gas) 139 H 65-95 MG/DL Bedside Ionized Calcium (Blood Gas) 1.01 L 1.15-1.33 MMOL/L Bedside Lactic Acid (Blood Gas) 0.94 H 0.36-0.75 MMOL/L Current Medications Medications (Trade) Dose Ordered Sig/Jultia Route PRN Reason Start Time Stop Time Status Last Admin Dose Admin Acetaminophen (TYLenol 650MG ELIXIR) 650 mg Q6H PRN PO MILD PAIN (1-3) 06/04/24 08:30 07/04/24 08:29 06/10/24 20:07 650 MG Acetaminophen (TYLenol 650MG SUPPOSITORY) 650 mg Q6H PRN RC MILD PAIN (1-3) 05/23/24 20:30 06/22/24 20:29 DC Acetylcysteine (MUComyst 20% 4ML) 400mg = 2ml [id number] IH 06/02/24 00:00 06/05/24 15:52 DC 06/05/24 11:35 200 MG Albumin Human 50 ml @ 0 mls/hr Q8H IV 06/27/24 20:00 06/28/24 11:00 DC 06/28/24 03:42 100 MLS/HR Albuterol (DUOneb) 1 udvial [id number] IH 05/24/24 00:00 06/10/24 10:28 DC 06/10/24 06:45 1 UDVIAL Alprazolam (XANax 0.5MG) 0.5 mg Q8H PRN PO ANXIETY 06/10/24 13:30 07/10/24 13:29 06/25/24 06:30 0.5 MG Artificial Tears (Artificial Tears) 1 DROP OR AD Q8H OU 06/11/24 14:30 07/11/24 14:29 07/01/24 05:30 1 DROP Azithromycin 250 ml @ 250 mls/hr Q24H IVPB 05/24/24 17:00 05/24/24 14:41 DC Azithromycin 250 ml @ 250 mls/hr Q24H STAT IVPB 05/23/24 17:17 05/24/24 14:41 DC 05/23/24 17:45 250 MLS/HR Benzocaine (Cepacol Sore Throat Lozenge) 1 each Q4H PRN MM SORE THROAT 06/08/24 10:00 06/29/24 17:27 DC 06/09/24 07:44 1 EACH Bisacodyl (DulcoLAX) 10 mg DAILY PRN RC CONSTIPATION 06/08/24 14:00 07/08/24 13:59 06/23/24 10:00 10 MG Bumetanide (Bumex 1mg Vial) 1 mg Q8H IVP 06/28/24 22:00 07/28/24 21:59 06/30/24 21:58 1 MG Cadexomer Iodine (Iodosorb Gel 40gm) 1 APPL TO RIGHT FAC... DAILY TP 06/19/24 09:00 07/18/24 08:59 07/01/24 08:41 1 APPL Cadexomer Iodine (Iodosorb Gel 40gm) 1 appl DAILY TP 06/18/24 09:00 06/19/24 07:23 DC 06/18/24 14:09 1 APPL Calcium Gluconate 1 gm/Sodium Chloride 100 ml @ 0 mls/hr PROTOCOL IV 06/27/24 10:30 07/27/24 10:29 07/01/24 10:22 100 MLS/HR Cefepime HCl (MAXipime 2 gm vial) 2 gm Q12H IVPB 05/24/24 15:00 06/03/24 14:59 DC 06/03/24 03:18 2 GM Ceftriaxone Sodium (ROCEphine 1G INJ) 1 gm Q24H IVPB 05/24/24 17:30 05/24/24 14:41 DC Chlorhexidine Gluconate (Peridex) 15 ml Q6H MM 06/07/24 17:00 06/11/24 14:27 DC 06/10/24 12:22 15 ML Chlorhexidine Gluconate (Peridex) 15 ml Q8H MM 06/11/24 14:30 06/25/24 14:29 DC 06/25/24 06:31 15 ML Cisatracurium Besylate (Nimbex) ONCE IVP 06/11/24 14:30 06/11/24 15:57 DC Cisatracurium Besylate 100 mg/ Sodium Chloride 100 ml @ 0 mls/hr PROTOCOL IV 06/11/24 23:30 06/23/24 16:20 DC 06/17/24 09:27 14.94 MLS/HR Cisatracurium Besylate 100 mg/ Sodium Chloride 100 ml @ 0 mls/hr PROTOCOL IV 06/23/24 16:30 06/23/24 18:43 DC 06/23/24 16:46 2.6 MLS/HR Clotrimazole (Mycelex) 10 mg TID MM 06/04/24 21:00 06/14/24 08:39 DC 06/13/24 20:28 10 MG Dexmedetomidine/ Sodium Chloride (PRECEdex 400MCG/ 100ML-NS) 400 mcg PROTOCOL IV 06/10/24 19:30 06/27/24 09:26 DC 06/25/24 05:08 400 MCG Dexmedetomidine/ Sodium Chloride (PRECEdex 400MCG/ 100ML-NS) 400 mcg PROTOCOL IV 06/27/24 09:30 07/27/24 09:29 07/01/24 06:35 400 MCG Dextrose (D50w) 50 ml AD PRN IV HYPOGLYCEMIA PROTOCOL 07/01/24 01:30 07/31/24 01:29 07/01/24 05:23 50 ML Diphenhydramine HCl (BENAdryl INJ) 25 mg Q6H PRN IV ITCHING 06/23/24 19:00 07/23/24 18:59 06/23/24 18:54 25 MG Dobutamine HCl/ Dextrose 250 ml @ 0 mls/hr PROTOCOL IV 06/12/24 16:30 06/12/24 16:53 DC Doxycycline Hyclate 250 ml @ 125 mls/hr Q12H IV 05/24/24 16:30 06/03/24 16:29 DC 06/03/24 04:23 125 MLS/HR Enoxaparin Sodium (Lovenox 80mg) 40 mg DAILY SQ 06/15/24 09:00 06/15/24 09:30 DC Enoxaparin Sodium (Lovenox 80mg) 80 mg BID SQ 06/11/24 09:00 06/14/24 23:28 DC 06/14/24 20:33 80 MG Enoxaparin Sodium (Lovenox) 40 mg DAILY SQ 06/15/24 09:30 07/01/24 07:55 DC 06/27/24 08:19 40 MG Enoxaparin Sodium (Lovenox) 40 mg Q24H SQ 05/23/24 21:00 06/11/24 04:36 DC 06/10/24 20:07 40 MG Famotidine (Pepcid 20mg Vial) 20 mg DAILY IV 05/24/24 09:00 06/14/24 08:39 DC 06/13/24 08:15 20 MG Fentanyl Citrate 100 ml @ 2.5 mls/hr PROTOCOL IV 06/29/24 21:00 07/06/24 20:59 07/01/24 08:56 2.5 MLS/HR Fentanyl Citrate 2500 mcg/Sodium Chloride 250 ml @ 0 mls/hr AD PRN IV TITRATE icu sedation 06/27/24 20:00 06/27/24 20:03 DC Fentanyl Citrate 2500 mcg/Sodium Chloride 250 ml @ 0 mls/hr AD PRN IV TITRATE 06/17/24 05:30 06/17/24 05:18 DC Fentanyl/Sodium Chloride 250 ml @ 0.1 mls/hr PROTOCOL IV 06/12/24 00:00 06/17/24 00:00 DC 06/16/24 17:36 0.1 MLS/HR Fentanyl/Sodium Chloride 250 ml @ 0 mls/hr AD PRN IV ICU SEDATION 06/17/24 05:30 06/22/24 05:29 DC 06/21/24 19:51 30 MLS/HR Fentanyl/Sodium Chloride 250 ml @ 0 mls/hr PROTOCOL IV 06/27/24 20:30 06/29/24 21:04 DC 06/29/24 13:10 30 MLS/HR Fentanyl/Sodium Chloride 250 ml @ 0 mls/hr PROTOCOL IV 06/22/24 15:00 06/27/24 14:59 DC 06/27/24 12:13 35 MLS/HR Fluconazole (DiFLUCan 100 mg TAB) 200 mg DAILY PO 06/05/24 09:00 07/05/24 08:59 07/01/24 08:40 200 MG Fluconazole/ Sodium Chloride 100 ml @ 100 mls/hr DAILY IV 05/26/24 09:00 05/27/24 15:57 DC 05/27/24 09:07 100 MLS/HR Furosemide (LASix 20MG VIAL) 20 mg DAILY IV 05/31/24 09:00 06/07/24 13:18 DC 06/03/24 08:38 20 MG Furosemide (LASix 20MG VIAL) 20 mg DAILY IV 06/17/24 10:00 06/17/24 12:13 DC 06/17/24 09:46 20 MG Furosemide (LASix 20MG VIAL) 20 mg Q12H IV 06/11/24 11:00 06/13/24 09:31 DC 06/12/24 21:54 20 MG Furosemide (LASix 20MG VIAL) 20 mg Q12H IV 06/17/24 22:00 06/18/24 10:01 DC 06/18/24 09:44 20 MG Furosemide (LASix 20MG VIAL) 20 mg Q8H IV 06/13/24 09:30 06/16/24 11:00 DC 06/16/24 08:44 20 MG Furosemide (LASix 20MG VIAL) 20 mg Q8H IV 06/19/24 17:00 06/26/24 11:05 DC 06/26/24 09:13 20 MG Ganciclovir Sodium 250 mg/ Sodium Chloride 100 ml @ 100 mls/hr Q12H IV 06/27/24 21:00 06/28/24 19:50 DC 06/28/24 09:37 100 MLS/HR Ganciclovir Sodium 250 mg/ Sodium Chloride 100 ml @ 100 mls/hr Q24H IV 06/29/24 09:00 07/29/24 08:59 07/01/24 08:55 100 MLS/HR Ganciclovir Sodium 430 mg/ Sodium Chloride 100 ml @ 100 mls/hr Q12H IV 06/13/24 09:00 06/27/24 18:34 DC 06/27/24 11:41 100 MLS/HR Ganciclovir Sodium 500 mg/ Sodium Chloride 100 ml @ 100 mls/hr Q12H IV 06/11/24 18:00 06/11/24 15:48 DC Ganciclovir Sodium (Ganciclovir Sodium) 500 mg Q12H IV 06/12/24 17:00 06/13/24 08:35 DC Guaifenesin/ Dextromethorphan (RobiTUSSin DM 200/20MG 10ML) 10 ml Q4H PRN PO COUGH 05/23/24 20:30 06/22/24 20:29 DC 06/10/24 20:07 10 ML Home Med (Home Medication) BIKTARVY (1 TAB) Q24H PO 06/24/24 17:00 06/28/24 14:57 DC 06/27/24 17:08 1 EACH Hydralazine HCl (APRESOLine 20MG INJ) 10 mg Q4H PRN IV ADMINISTER FOR SBP > 160 06/26/24 16:30 07/26/24 16:29 06/26/24 16:27 10 MG Hydrocortisone Sodium Succinate (Solu-corTEF 100MG) 100 mg Q8H IV 06/11/24 05:00 06/14/24 08:39 DC 06/14/24 06:13 100 MG Hydroxyzine HCl (ATArax 25MG TAB) 25 mg TID PRN PO ITCHING 06/10/24 14:00 06/29/24 17:27 DC 06/27/24 08:20 25 MG Insulin Glargine (LANtus 100 UNITS/ML 10 ML VIAL) 15 units BID@0730,2100 SQ 06/27/24 21:00 07/01/24 09:16 DC 06/30/24 21:04 15 UNITS Insulin Human Regular (humuLIN R 100 UNIT/ML 3ML) INSULIN SLIDING SCAL... ACHS SQ 06/19/24 16:30 06/20/24 15:07 DC 06/20/24 12:30 5 UNIT Insulin Human Regular (humuLIN R 100 UNIT/ML 3ML) INSULIN SLIDING SCAL... Q6H6 SQ 06/20/24 18:00 07/19/24 16:29 06/28/24 12:40 2 UNIT Ipratropium [place] (AtrovENT UD) 0.5 MG [id number] IH 06/10/24 14:00 06/27/24 14:53 DC 06/27/24 14:01 0.5 MG Ipratropium [place] (AtrovENT UD) 0.5 MG [id number] PRN IH SHORTNESS OF BREATH 06/27/24 15:00 07/10/24 13:59 06/29/24 03:21 0.5 MG Lactated Ringer's (Lactated Ringers 1000ml) 500 ml ONCE IV 06/02/24 20:00 06/02/24 19:54 DC Lactulose (Constulose 20gm/ 30ml Udcup) 20 gm Q8H PO 06/28/24 11:00 06/29/24 17:27 DC 06/29/24 11:32 20 GM Lactulose (Constulose 20gm/ 30ml Udcup) 20 gm Q8H PO 06/29/24 21:00 06/30/24 21:21 DC 06/30/24 05:25 20 GM Levofloxacin/ Dextrose 100 ml @ 100 mls/hr Q24H IV 05/24/24 15:00 05/24/24 16:16 DC Magnesium Sulfate 50 ml @ 0 mls/hr PROTOCOL PRN IV hypomagnesemia 05/28/24 08:00 06/27/24 07:59 DC 06/11/24 05:26 50 MLS/HR Meropenem (Merrem 1gm) 1 gm Q8H IVPB 06/13/24 15:00 06/18/24 21:57 DC 06/18/24 15:34 1 GM Meropenem (Merrem 1gm) 1 gm Q8H IVPB 06/19/24 01:00 06/21/24 00:59 DC 06/20/24 16:50 1 GM Meropenem (Merrem) 1 gm Q8H IVPB 06/11/24 15:00 06/13/24 11:52 DC 06/13/24 08:14 1 GM Meropenem 1 gm/ Sodium Chloride 100 ml @ 33.333 mls/ hr Q8H IV 06/11/24 14:30 06/11/24 14:28 DC Methylprednisolone Sodium Succinate (Solu-medROL 40MG) 20 mg Q12H IVP 06/05/24 07:00 06/09/24 09:13 DC 06/09/24 07:25 20 MG Methylprednisolone Sodium Succinate (Solu-medROL 40MG) 40 mg Q12H IVP 05/28/24 18:00 05/29/24 16:45 DC 05/29/24 05:32 40 MG Methylprednisolone Sodium Succinate (Solu-medROL 40MG) 40 mg Q6H IVP 05/29/24 16:30 06/04/24 16:44 DC 06/04/24 11:13 40 MG Methylprednisolone Sodium Succinate (Solu-medROL 40MG) 40 mg Q6H IVP 06/04/24 18:00 06/05/24 00:24 DC 06/04/24 23:48 40 MG Methylprednisolone Sodium Succinate (Solu-medROL 40MG) 40 mg Q8H IVP 05/24/24 01:00 05/25/24 21:51 DC 05/25/24 17:28 40 MG Methylprednisolone Sodium Succinate (Solu-medROL 40MG) 60 mg Q6H IVP 05/25/24 22:00 05/28/24 02:25 DC 05/27/24 23:55 60 MG Methylprednisolone Sodium Succinate (Solu-medROL 40MG) 60 mg Q6H IVP 05/28/24 06:00 05/28/24 08:27 DC 05/28/24 06:47 60 MG Methylprednisolone Sodium Succinate (Solu-medROL 40MG) 60 mg Q6H IVP 06/11/24 02:30 06/11/24 04:23 DC 06/11/24 02:46 60 MG Methylprednisolone Sodium Succinate (Solu-medROL 40MG) 80 mg Q8H IVP 06/14/24 17:00 07/14/24 08:59 07/01/24 08:40 80 MG Methylprednisolone Sodium Succinate (Solu-medROL 125MG) 80 mg Q8H IVP 06/14/24 09:00 06/14/24 14:53 DC 06/14/24 08:48 80 MG Metoclopramide HCl (regLAN 10MG/ 10ML UD CUP) 5 mg Q8H PO 06/29/24 21:00 07/22/24 07:29 07/01/24 05:29 5 MG Metoclopramide HCl (regLAN 10MG/ 10ML UD CUP) 5 mg TIDAC PO 06/22/24 07:30 06/29/24 17:27 DC 06/29/24 11:32 5 MG Metronidazole/ Sodium Chloride (flaGYL) 500 mg Q8H IV 05/25/24 22:00 05/25/24 21:56 DC Midazolam HCl 50 ml @ 0 mls/hr AD PRN IV TITRATE 06/12/24 01:30 06/12/24 08:30 DC 06/12/24 02:30 10 MLS/HR Midazolam HCl 50 ml @ 0 mls/hr AD PRN IV TITRATE 07/01/24 05:30 07/08/24 05:29 07/01/24 10:23 10 MLS/HR Midazolam HCl 100 ml @ 0 mls/hr AD PRN IV TITRATE 06/12/24 09:00 07/01/24 05:15 DC 06/30/24 18:38 10 MLS/HR Morphine Sulfate (morPHINE 4MG SYG) 4 mg Q4H PRN IM RESPIRATORY SYMPTOMS 06/11/24 03:30 06/14/24 23:33 DC 06/11/24 03:27 4 MG Norepinephrine 250 ml @ 0 mls/hr PROTOCOL IV 06/23/24 21:00 07/23/24 20:59 Ondansetron HCl (zoFRAN 4MG INJ) 4 mg Q6H PRN IV NAUSEA/VOMITING 05/23/24 20:30 06/22/24 20:29 DC Pantoprazole Sodium (PROTonix 40MG INJ) 40 mg BID IVP 06/12/24 21:00 07/12/24 20:59 07/01/24 08:40 40 MG Pharmacy Profile Note (Lace Assessment) 1 each AD MISC 06/27/24 18:00 06/27/24 18:40 DC Pharmacy Profile Note (Lace Assessment) 1 each AD MISC 06/17/24 16:30 06/17/24 16:27 DC Pharmacy Profile Note (Pharmacy Communication) 1 each ONCE MISC 06/11/24 14:30 06/11/24 15:53 DC Pharmacy Profile Note (Pharmacy Communication) 1 each ONCE MISC 06/11/24 20:30 06/11/24 20:14 DC Pharmacy Profile Note (Pharmacy Communication) 1 each ONCE MISC 06/12/24 17:00 06/12/24 17:07 DC Pharmacy Profile Note (Pharmacy Communication) 1 each ONCE MISC 06/24/24 13:00 06/24/24 12:43 DC Pharmacy Profile Note (Pharmacy Communication) 1 each ONCE MISC 06/23/24 20:30 06/23/24 20:32 DC Phenylephrine HCl 10 mg/Sodium Chloride 251 ml @ 0 mls/hr AD PRN IV DIRECTED 06/11/24 03:00 06/12/24 18:12 DC 06/12/24 14:10 47 MLS/HR Phenylephrine HCl 50 mg/Sodium Chloride 250 ml @ 0 mls/hr PROTOCOL PRN IV PROTOCOL 06/12/24 18:00 07/12/24 17:59 06/13/24 08:57 12.45 MLS/HR Polyethylene Glycol (MIRalax 3350 17 GM POWD.PACK) 17 gm DAILY PO 06/22/24 09:00 07/22/24 08:59 07/01/24 08:40 17 GM Potassium Chloride 100 ml @ 100 mls/hr AD PRN IV POTASSIUM PROTOCOL 05/28/24 08:00 06/27/24 07:59 DC Potassium Chloride (K-Dur/Klor-Con 20meq) 20 meq AD PRN PO POTASSIUM PROTOCOL 05/28/24 08:00 06/27/24 07:59 DC Potassium Chloride (KCl 10% Elixir 20meq/15ml) 20 meq AD PRN PO POTASSIUM PROTOCOL 05/28/24 08:00 06/27/24 07:59 DC Prednisone (deltaSONE/ oraSONE 20MG TAB) 20 mg DAILY PO 06/10/24 09:00 06/14/24 08:39 DC 06/13/24 08:15 20 MG Rocuronium [place] 100 mg/ Sodium Chloride 100 ml @ 0 mls/hr PROTOCOL IV 06/24/24 08:30 06/25/24 02:44 DC 06/25/24 01:00 0 MLS/HR Rocuronium [place] 200 mg/ Sodium Chloride 200 ml @ 0 mls/hr PROTOCOL IV 06/25/24 03:00 07/24/24 08:29 07/01/24 10:23 48.6 MLS/HR Rocuronium [place] (ZemuRON) 10 mg Q1H PRN IV RESP DISTRESS/VENT DISYNCHRONY 06/11/24 20:30 06/11/24 23:29 DC 06/11/24 20:33 10 MG Rocuronium [place] (ZemuRON) 50 mg Q4H PRN IV VENT DYSSYNCHRONY 06/17/24 16:30 06/23/24 16:19 DC 06/23/24 04:03 50 MG Sodium Chloride 500 ml @ 500 mls/hr Q1H IV 06/02/24 20:00 06/02/24 20:59 DC 06/02/24 21:34 500 MLS/HR Sodium Chloride 1,000 ml @ 0 mls/hr Q0M IV 06/26/24 19:00 06/29/24 17:27 DC Sodium Chloride 1,000 ml @ 75 mls/hr [id number] IV 06/07/24 13:30 06/10/24 17:02 DC 06/10/24 09:05 75 MLS/HR Sodium Chloride (Sodium Chloride) 1,000 mg BIDAC PO 06/07/24 16:30 06/09/24 07:28 DC 06/08/24 16:58 1,000 MG Sodium Chloride (Sodium Chloride) 1,000 mg BIDAC PO 06/09/24 07:30 06/12/24 16:35 DC 06/12/24 12:30 1,000 MG Sodium Chloride (Sodium Chloride) 1,000 mg Q12H PO 06/12/24 21:00 07/09/24 07:29 07/01/24 08:40 1,000 MG Sodium Zirconium Cyclosilicate (Lokelma 10gm Powder) 10 gm TID PO 07/01/24 14:00 07/02/24 13:59 Sodium Zirconium Cyclosilicate (Lokelma) 5 gm DAILY10 PO 06/08/24 10:30 06/10/24 10:29 DC 06/08/24 10:50 5 GM Thiamine HCl (Vitamin B-1) 100 mg DAILY IVP 06/28/24 09:00 07/28/24 08:59 07/01/24 08:40 100 MG Trimethoprim/ Sulfamethoxazole (BactRIM DS) 1 tab BID PO 05/26/24 21:00 05/29/24 16:18 DC 05/29/24 08:07 1 TAB Trimethoprim/ Sulfamethoxazole (BactRIM DS) 2 tab TID PO 05/29/24 16:30 06/05/24 20:59 DC 06/05/24 14:55 2 TAB Trimethoprim/ Sulfamethoxazole (BactRIM DS) 2 tab TID PO 06/06/24 09:30 06/11/24 21:54 DC 06/10/24 13:58 2 TAB Trimethoprim/ Sulfamethoxazole 160 mg/Dextrose 250 ml @ 333.333 mls/hr BID@0600,1800 IV 06/22/24 06:00 06/22/24 17:17 DC 06/22/24 06:25 333.333 MLS/HR Trimethoprim/ Sulfamethoxazole 160 mg/Dextrose 250 ml @ 333.333 mls/hr DAILY IV 06/23/24 09:00 07/02/24 05:59 07/01/24 08:55 333.333 MLS/HR Trimethoprim/ Sulfamethoxazole 320 mg/Dextrose 500 ml @ 333.333 mls/hr Q8H IV 06/19/24 00:30 06/21/24 21:30 DC 06/21/24 16:16 333.333 MLS/HR Trimethoprim/ Sulfamethoxazole 320 mg/Dextrose 500 ml @ 500 mls/hr Q8H IV 06/11/24 22:30 06/12/24 16:35 DC 06/12/24 06:39 500 MLS/HR Trimethoprim/ Sulfamethoxazole 320 mg/Dextrose 500 ml @ 500 mls/hr Q8H IV 06/12/24 18:00 06/13/24 11:13 DC 06/13/24 05:30 500 MLS/HR Trimethoprim/ Sulfamethoxazole 320 mg/Dextrose 500 ml @ 500 mls/hr Q8H IV 06/13/24 13:30 06/18/24 21:55 DC 06/18/24 14:08 500 MLS/HR Trimethoprim/ Sulfamethoxazole 320 mg/Dextrose 500 ml @ 500 mls/hr Q8H IV 06/18/24 11:59 06/19/24 00:56 DC 06/18/24 11:59 500 MLS/HR Valganciclovir (ValGANCIClovir HCL) 900 mg BID PO 06/11/24 21:00 06/13/24 08:37 DC Wound Care/ Dressing Products (Venelex Ointment) 1 VOLODYMYR AD TID TP 06/14/24 14:00 07/14/24 13:59 07/01/24 08:41 1 GM DIAGNOSTICS / RADIOLOGY: [ ] ASSESSMENT: Acute hypoxemic respiratory failure, POA Bilateral lower lobe bacterial pneumonia + MRSA POA, +Azra Suspected PCP PNA based on CT findings vs viral/Atypical PNA . 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 Currently the patient on FiO2 100%. Today creatinine at 2.2, continue to follow Nephrology input and recommendations. Continue fentanyl, Versed, Precedex, and rocuronium. Continue broad-spectrum antibiotics Continue gancyclovir IV q.12 hours. Continue Solu-Medrol 80 mg IV q.8 hours Continue to follow infectious disease input and recommendation Continue to follow daily chest x-ray and ABG. Further orders per hospitalization course Prognosis of this patient remains poor and guarded. Son at bedside during my visit, updated, all questions answered. Disposition: Pending improvement in clinical condition. time spent: > 35 min HEATHER RICE MD Jul 01, 2024 11:00
[2024-07-01] MEDS: NA ZIRCON CYCLOSIL(LOKELMA 10GM) PO SCH (13:05)
[2024-07-01] MEDS: NOREPINEPHRIN 4MG/NS 250ML 250 ML IV SCH (13:36)
--- NOTE | 2024-07-01 13:38 | PN ---
NEPHROLOGY PROGRESS NOTE Date/Time Patient Seen: Jul 01, 2024 1415 SUBJECTIVE: This is a 49-year-old female with a past medical history of newly diagnosed HIV with AIDS. She presented to the emergency room with complaints of shortness of breath She was admitted under diagnosis of acute hypoxemic respiratory failure and pneumonia. She has had a prolonged hospital stay. She was seen in the ICU, intubated, sedated, and on mechanical ventilation. Continues to require vasopressors to maintain blood pressure. She continues on antivirals and antibiotics as per Infectious Disease. She was noted to have elevated BUN/creatinine We has been consulted for renal failure. Renal function continues to worsen Electrolytes show potassium of 5.5 mmol/L, she has received Lokelma. Urine output continues to be marginal. Abdominal ultrasound showed no right hydronephrosis. She continues to be intubated and sedated Continues to require vasopressors to maintain blood pressure. Family at the bedside Condition is critical and guarded. REVIEW OF SYSTEMS: Difficult to obtain given status of the patient who remains intubated mechanically ventilated PHYSICAL EXAM: General: acutely ill, sedated, intubated, and mechanically ventilated HEENT: head is atraumatic, pupils equal and reactive, ET tube in place Neck: supple, no masses, no lymphadenopathy, no thyromegaly, no JVD Lungs: decreased breath sounds bilaterally, symmetrical chest movement Cardio: regular rate, S1 and S2 normal, no rub or gallop Abdomen: soft, non tender, no distension, no organomegaly Extremities: trace edema bilateral lower extremities, no cyanosis or clubbing Skin: no rashes or suspicious lesions Neuro: sedated LABORATORY: [ ] Hematology Labs: Test 07/01/24 03:32 Range/Units White Blood Count 3.0 #L 4.8-10.8 K/uL Red Blood Count 2.12 L 4.00-5.50 MIL/uL Hemoglobin 7.1 L 12.0-16.0 g/dL Hematocrit 20.7 *L 36-48 % Mean Corpuscular Volume 97.6 79-99 fL Mean Corpuscular Hemoglobin 33.5 H 27.0-33.0 pg Mean Corpuscular Hemoglobin Concent 34.3 32.0-36.0 g/dL Red Cell Distribution Width 14.3 11.0-15.5 % Platelet Count 66 L 130-400 K/uL Mean Platelet Volume 11.0 H 7.5-10.5 fL Immature Granulocyte % (Auto) 1.3 H 0-1 % Neutrophils (%) (Auto) 96.1 H 40.0-77.0 % Lymphocytes (%) (Auto) 2.3 L 21.0-51.0 % Monocytes (%) (Auto) 0.3 L 3.0-13.0 % Eosinophils (%) (Auto) 0.0 0.0-8.0 % Basophils (%) (Auto) 0.0 0.0-5.0 % Neutrophils # (Auto) 2.9 1.8-7.7 K/uL Lymphocytes # (Auto) 0.1 L 1.0-4.8 K/uL Monocytes # (Auto) 0.0 L 0.1-1.0 K/uL Eosinophils # (Auto) 0.00 0.00-0.70 K/uL Basophils # (Auto) 0.00 0.00-0.20 K/uL Absolute Immature Granulocyte (auto 0.04 0-1 K/uL Segmented Neutrophils % 99 H 40-70 % Lymphocytes % (Manual) 1 L 22-44 % Nucleated Red Blood Cells 0.0 0.0-0.19 % Differential Comment MANUAL DIFFERENTIAL White Cell Morphology Comment Platelet Morphology Comment Red Blood Cell Morphology Chemistry Labs: Test 07/01/24 11:19 07/01/24 03:32 07/01/24 00:24 06/30/24 04:36 Range/Units Whole Blood Glucose 76 70-110 MG/DL Sodium Level 140 136-145 mmol/L Potassium Level 5.5 H 3.5-5.1 mmol/L Chloride Level 106 101-111 mmol/L Carbon Dioxide Level 29 21-32 mmol/L Blood Urea Nitrogen 119 *H 7-18 mg/dL Creatinine 3.2 H 0.5-1.0 mg/dL Glomerular Filtration Rate Calc 17 >90 mL/min Random Glucose 66 L 70-105 mg/dL Total Calcium 6.3 L 8.5-10.1 mg/dL Magnesium Level 2.10 1.80-2.40 mg/dL Bedside Glucose Comment Notified Nurse Total Bilirubin 0.3 0.2-1.0 mg/dL Aspartate Amino Transf (AST/SGOT) 77 H 10-37 U/L Alanine Aminotransferase (ALT/SGPT) 106 H 12-78 U/L Alkaline Phosphatase 132 50-136 U/L Total Protein 3.8 L 6.0-8.3 g/dL Albumin 1.5 L 3.5-5.0 g/dL Coagulation Labs: Test 07/01/24 03:32 Range/Units Prothrombin Time 11.4 9.6-11.6 SEC Prothromb Time International Ratio 1.02 0.85-1.15 DIAGNOSTICS / RADIOLOGY: REASON: Hypoxic respiratory failure ORDERING PHYSICIAN: MARGO HUIZAR PROCEDURE: CXR1VW - CHEST 1VW Exam Type: CHEST 1VW Clinical Information: Hypoxic respiratory failure Comparison: None Findings: Pulmonary pattern is as before. No worrisome interval changes have taken place. Impression: Stable exam. DICTATED BY: FITZ NICOLAS MD DATE: 06/30/24 0900 REASON: Hypoxic respiratory failure ORDERING PHYSICIAN: MARGO HUIZAR PROCEDURE: CXR1VW - CHEST 1VW Exam Type: CHEST 1VW Clinical Information: Hypoxic respiratory failure Comparison: June 28, 2024 Findings: Pulmonary pattern is as before. No worrisome interval changes have taken place. Impression: Stable exam. DICTATED BY: FITZ NICOLAS MD DATE: 06/29/24 0852 REASON: Hypoxic respiratory failure ORDERING PHYSICIAN: MARGO HUIZAR PROCEDURE: CXR1VW - CHEST 1VW CHEST 1VW HISTORY: Hypoxic respiratory failure COMPARISON: 06/27/2024 FINDINGS: A frontal projection of the chest was obtained. There are bilateral pulmonary infiltrates suggestive of pulmonary vascular congestion with possible superimposed pneumonitis. The heart is borderline enlarged. All the lines and tubes are again seen in place. No evidence of aortic calcification is seen. IMPRESSION: 1. Bilateral pulmonary infiltrates are seen suggestive of pulmonary vascular congestion with possible superimposed pneumonitis. DICTATED BY: TAMARA NGUYEN MD DATE: 06/28/24 1252 REASON: Hypoxic respiratory failure ORDERING PHYSICIAN: MARGO HUIZAR PROCEDURE: CXR1VW - CHEST 1VW CHEST 1VW HISTORY: Respiratory failure COMPARISON: 06/26/2024 FINDINGS: A frontal projection of the chest was obtained. There are bilateral pulmonary infiltrates suggestive of pulmonary vascular congestion with possible superimposed pneumonitis. The heart is borderline enlarged. All the lines and tubes are again seen in place. No evidence of aortic calcification is seen. IMPRESSION: 1. Bilateral pulmonary infiltrates are seen suggestive of pulmonary vascular congestion with possible superimposed pneumonitis. Mild interval worsening is seen. DICTATED BY: TAMARA NGUYEN MD DATE: 06/27/24 1146 REASON: TRANSAMINITS ORDERING PHYSICIAN: MARGO HUIZAR PROCEDURE: ABDRUQLTD - US ABDOMINAL RUQ\LTD US ABDOMINAL RUQ\E\LTD HISTORY: Elevated liver enzymes COMPARISON: None TECHNIQUE: Right upper quadrant abdominal ultrasound study was performed. FINDINGS: Liver measures 16.2 cm. Sludge material is seen throughout the gallbladder. There is small ascites. The visualized portion of the pancreas is within normal limits. Liver is echogenic consistent with liver parenchymal disease. No gallstone is seen. Common duct measures 3 mm. No evidence of gallbladder wall thickening is seen. Right kidney measures 10.5 x 5.2 x 4.3 cm. No hydronephrosis is seen of the right kidney. IMPRESSION: 1. No gallstones or ductal dilatation is seen. Sludge material in the gallbladder. Ascites. Limited study due to patient's underlying condition. 2. No hydronephrosis is seen. DICTATED BY: TAMARA NGUYEN MD DATE: 06/26/24 2244 REASON: Elevated DDIMER ORDERING PHYSICIAN: KIANA MAGUIRE PROCEDURE: VENOUS FAY - US VENOUS DOPPLER BILATERAL US VENOUS DOPPLER BILATERAL REASON: Elevated DDIMER COMPARISON: None Technique: Bilateral venous doppler ultrasound was performed with spectral analysis and color flow imaging technique. FINDINGS: There is a normal appearance of the common femoral, deep femoral, the profunda femoris and popliteal veins. Proximal calf veins appear normal as well. There is normal response to compression and augmentation. There is no evidence of deep venous thrombosis. IMPRESSION: Normal bilateral lower extremity venous Doppler ultrasound. DICTATED BY: LALO IBANEZ MD DATE: 06/11/24 0912 REASON: assess EF ORDERING PHYSICIAN: MARGO HUIZAR PROCEDURE: ECHO CMP - ECHO 2-D COMPLETE APPROVED REPORT EXAM: Two-dimensional and M-mode echocardiogram with Doppler and color Doppler. INDICATION ICD: Assess left ventricular function. 2D Dimensions RVDd 3.9 cm LVEF(%) 69.9 (>50%) LVED Vol(simp.) 97.0 mL IVSd 1.3 (0.7-1.1cm) FS(%) 39 % LVES Vol(simp.) 44.0 mL LVDd 4.1 (3.8-5.6cm) LA (2D) 2.9 (1.6-4.0cm) LVEF(%, simp.) 55 % PWd 1.3 (0.7-1.1cm) Ao Root(2D) 2.7 (2.0-3.7cm) LA ESV INDEX (4CH) 18.80 mL/m2 IVSs 1.7 cm LVOT diam 2.0 (1.8-2.4cm) LA ESV INDEX (2CH) 26.30 mL/m2 LVDs 2.5 (2.5-4.0cm) IVC diam 1.4 cm LA ESV INDEX (BP) 22.70 mL/m2 PWs 1.6 cm M-Mode Dimensions EPSS 0.3 cm LA (MM) 2.6 (1.6-4.0cm) Ao Root(MM) 2.7 (2.0-3.7cm) Aortic Valve AoV VTI 0.2 m Ao Mean GR 4.0 mmHg LVOT VTI 0.20 m SANDRA (VMAX) 2.8 cm2 SANDRA (VTI) 2.8 cm2 Mitral Valve MV E Vmax 55.8 cm/s DECEL Time 236 ms MV A Vmax 64.7 cm/s P 1/2 T 42 ms E/A ratio 0.9 MVA (PHT) 5.3 cm2 TDI E/E' Medial 10.5 E/E' Lateral 5.8 Medial E' Peak V 5.30 cm/s Lateral E' Peak V 9.70 cm/s Tricuspid Valve RAP (EST) 3 mmHg RVSP 3.0 mmHg Left Ventricle The left ventricle is normal size. Mild concentric left ventricular hypertrophy. The LVEF is > 55%. The left ventricular diastolic function is normal. Right Ventricle The right ventricle is normal size. The right ventricular systolic function is normal. Atria The left atrium size is normal. The right atrium size is normal. Aortic Valve The aortic valve is normal in structure. No aortic regurgitation is present. There is no aortic valvular stenosis. Mitral Valve The mitral valve is normal in structure. There is no mitral valve regurgitation noted. There is no mitral valve stenosis. Tricuspid Valve The tricuspid valve is normal in structure. There is no tricuspid valve regurgitation noted. Pulmonic Valve Pulmonic valve is not well visualized. There is no pulmonic valvular regurg itation. Great Vessels The aortic root is normal in size. The IVC is normal in size and collapses >50% with inspiration. Pericardium There is no pericardial effusion. Other Information Quality : Technically difficult due to body habitus Rhythm : NSR Conclusion The LVEF is > 55%. Mild concentric left ventricular hypertrophy. The left ventricular diastolic function is normal. DICTATED BY: FERMÍN GALLOWAY DO DATE: 05/30/24 0853 REASON: suspected PE ORDERING PHYSICIAN: DAYRON RUBIN NP PROCEDURE: CHES PE - CT CHEST PE PROTOCOL WWO CONT CT CHEST PE PROTOCOL WWO CONT HISTORY: Suspected pulmonary embolism COMPARISON: 05/21/2019 TECHNIQUE: CT angiography of the chest was performed. The study was performed using angiographic technique with maximum intensity projection reconstruction images. Patient was given 100 cc of Omnipaque through intravenous route. FINDINGS: No CT evidence of filling defect is seen to suggest pulmonary embolus. No CT evidence of aortic dissection is seen. There are bilateral pulmonary infiltrates with subsegmental atelectasis. Fatty changes of the liver are noted. No CT evidence of pleural effusion or pericardial effusion is seen. The heart is enlarged. No evidence of adrenal mass is seen. Degenerative changes of the spine are noted. IMPRESSION: 1. No CT evidence of acute pulmonary embolus is seen. Bilateral pulmonary infiltrates with subsegmental atelectasis. Fatty changes of liver are noted. CT was performed with one or more following dose reduction techniques: automated exposure control, adjustment of the mA and kv according to patient's size, or use of a iterative reconstruction technique. DICTATED BY: TAMARA NGUYEN MD DATE: 05/24/24 1809 REASON: sob ORDERING PHYSICIAN: SHANTEL VICTORAI MD PROCEDURE: CXR1VW - CHEST 1VW PORTABLE CHEST RADIOGRAPH INDICATION: sob COMPARISON: 05/21/2024 CTA chest FINDINGS: Heart size is normal. The pulmonary vascularity and paul appear normal. Left lower lung greater than right lung base opacities in the right hemidiaphragm is elevated. No significant pleural effusion noted. No pneumothorax detected. IMPRESSION: Left lower lung pneumonia and minimal right lung base atelectasis. DICTATED BY: SUSAN RAY MD DATE: 05/23/24 1729 ASSESSMENT: Acute renal failure Sepsis Anemia Hyperkalemia Elevated LFTs Acute hypoxic hypercapnic respiratory failure on mechanical ventilator support via ETT Severe Adult Respiratory Distress Syndrome Bilateral lower lobe pneumonia with positive MRSA and confirmed PCP 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 We have reviewed previous records in detail Any form of renal replacement therapy remains a high-risk due to underlying condition Long discussion was held with son and family at the bedside Prognosis remains poor Multiple questions were answered. At this time there is no emergent need for renal replacement therapy We will continue to monitor the patient closely Please renally dose antibiotics. Require close monitoring of renal function and electrolytes Order CBC, CMP,and electrolytes in am Continue with IV pressors Continue mechanical ventilation and sedation. Monitor blood pressure adjust medication doses as needed Avoid hypotensive episodes May use Dilaudid 0.5 mg IV every 6 hours as needed for severe pain Monitor blood sugars Strict intake, output, and daily weight should be monitored Please renally adjust medications Avoid nephrotoxic and nonsteroidal drugs Avoid contrast if possible Will continue to monitor renal function, anemia, electrolytes Treatment plan discussed with patient Questions were answered We have discussed with the other team physicians in detail about the care plan We will continue to monitor the patient closely Case was discussed with Donnell Huizar NP Total critical care time spent with patient, nursing staff, critical care team over 35 minutes ATTESTATION BY PHYSICIAN I have seen and examined the patient. I reviewed the documentation, medical decision making, and treatment plan as noted by the mid-level provider above. I agree with the findings and plan of care. LEON KOO MD, [facility] Jul 01, 2024 13:37
--- NOTE | 2024-07-01 15:57 | NUR ---
Nutrition f/u Reviewed labs, notes, and medications. Pt intubated and sedated, low dose of pressors, poor prognosis, renal function deteriorating, not a candidate of HD, OG tube in place, elevated CO2 53, K 5.5 (H), elevated BUN 119, elevated Cr 3.2, Ca 6.3(L), elevated AST and ALT, BG 66(L), Pt DNR per chart review. Wt via bed scale, last BM 06/29/24, mild pitting, 1221 balance 06/30/24, residual of 400ml, TF off, Pt provided with reglan per nursing. Family in room during visit. Observed MAP @ 69 during visit. If Tf residual more than 500 ml hold for 1 hr and recheck. If still more than 500 ml, notify MD. Provide trickle feeds of Nepro @25 ml/hr + 150 Q4H provides: 990kcals, 45 gm pro, 1299 ml per day if Pt CO2 levels elevated and on pressors Meets: 57% of patients caloric needs. Provide goal rate of Nepro 1.2 @ 45 ml/hr x 22 hrs once Pt off pressors, CO2 WNL, not on prone position goal rate to provide 100% of kcal needs, 100% of protein needs, Monitor extubation and position of patient. Recommendations: -Provide trickle feeds while Pt on pressors and CO2 elevated -Provide goal rate Nepro 1.8 @ 45 ml/hr x 22 hrs + 150 Q4H ONCE MEDICALLY FEASIBLE Provides: 1782 kcals, 80 gm pro, 1619 ml per day -Monitor BM -If no BM >3 days consider stool softener -Monitor electrolytes -Replenish electrolytes per protocol -Monitor wts -Reweigh as able -Provide vit. D supplement per vit. D 9.1 -Provide b-complex QD -Monitor TF tolerance + need for TF adjustment -Monitor goals of care RD to follow + available for consult per protocol Addendum: 07/01/24 at [address] Amended: Links added.
[2024-07-02] VITALS (90 sets, daily range): BP systolic 97–152; BP diastolic 48–82; PULSE 50–108; RESP 30–46; TEMP 96.5–97.4; O2SAT 83–95
[2024-07-02 04:42] LABS: HEMATOCRIT 24.2 % (36-48); IMMATURE GRANULOCYTE ABSOLUTE 0.11 K/uL (0-1); LYMPHOCYTES # (AUTO) 0.1 K/uL (1.0-4.8); LYMPHOCYTES % (AUTO) 1.9 % (21.0-51.0); MEAN CORPUSCULAR HEMOGLOBIN 33.5 pg (27.0-33.0); MEAN CORPUSCULAR HGB CONC 32.2 g/dL (32.0-36.0); MEAN CORPUSCULAR VOLUME 103.9 fL (79-99); MONOCYTES % (AUTO) 0.2 % (3.0-13.0); NEUTROPHILS % (AUTO) 95.8 % (40.0-77.0); PLATELET COUNT (AUTO) 79 K/uL (130-400); RED BLOOD CELL COUNT(AUTO) 2.33 MIL/uL (4.00-5.50); RED CELL DISTRIBUTION WIDTH 14.6 % (11.0-15.5); WHITE BLOOD COUNT (AUTO) 5.2 K/uL (4.8-10.8)
[2024-07-02 04:55] LABS: ALBUMIN 1.4 g/dL (3.5-5.0); BILIRUBIN,TOTAL 0.3 mg/dL (0.2-1.0); CREATININE 3.5 mg/dL (0.5-1.0); MAGNESIUM 2.1 mg/dL (1.80-2.40); POTASSIUM 5.6 mmol/L (3.5-5.1); TOTAL PROTEIN, SERUM 3.7 g/dL (6.0-8.3)
--- NOTE | 2024-07-02 09:33 | PN ---
[facility] PROGRESS NOTE Date Patient Seen: Jul 02, 2024 Time of Visit: 09:33 Supervising Physician: Dr. JAUREGUI Primary Care Physician: Stu Foss MD Outpatient Specialists: Inpatient Consults: Pulmonology PROBLEM LIST: - Acute hypoxic hypercapnic respiratory failure on mechanical ventilator support via ETT - Severe Adult Respiratory Distress Syndrome - MODS (respiratory, Liver , and kidneys) - RADHA - Hyperkalemia improved - Transaminitis - Bilateral lower lobe pneumonia with positive MRSA and confirmed PCP - Disseminated herpes simplex viral infection - Newly diagnoses HIV with AIDS - Morbid obesity, BMI 31.4 - Severe protein calorie malnutrition - Former tobacco use disorder INTERVAL HISTORY: 07/01/24- patient continues sedated and paralyzed on the ventilator with max FiO2 of 100% and PEEP of 10. She continues with pressure control setting because she is not tolerating assist-control mode. She is off pressors but cont inues with fentanyl, Versed, rocuronium and Precedex drip. She is hemodynamically stable. Blood pressure 146/72 heart rate in the 80s respiratory rate of 41 saturating 84% and she has been afebrile with a T-max of 98.2 and a T low of 97 in the last 24 hours. Urine output minimal 35 mL in the last 24 hours with a positive 3.2 L balance. She is up 20 kg from admission. WBCs are 3.0 H&H 7.1/20.7 platelet count is 66 K. chemistry sodium is 140 potassium 5.5 covered with Lokelma 10 g 3 times a day per NG tube creatinine of 3.2 GFR of 17 worsening kidneys. She had an episode of hypoglycemia this morning discontinue all insulin at this time. We will total calcium of 6.3 liver enzymes trended down albumin 1.5, chest x-ray with a bilateral pulmonary infiltrates. Stable exam. Same as before no worrisome interval changes have taken place. ABGs today with worsening o2 pH 7.28 pCO2 53 PO2 of 59 bicarb 24.6. Per tenter feeder patient is a high-risk of cardiac arrest if hemodialysis treatment started.This was explained to Son Dagoberto by DR Zapata. I spoke to Jessika at the bedside who is the POA. Goal of this conversation was to discuss goals of care. I discussed regarding what advanced directives in detail and what advanced care planning entails. We also discussed CODE STATUS. I informed Dagoberto that in the case of cardiopulmonary demise, resuscitation efforts including chest compressions and intubations do not lead to ideal postresuscitative outcomes. We discussed patient's particular disease processes and how this could be potentially impacting the patient's outcome in the event of a cardiopulmonary arrest. All questions related to resuscitation, CODE STATUS, advanced directives were answered in detail. Dagoberto wishes for pt to not receive resuscitated measures such as CPR. We will change CODE STATUS to DO NOT RESUSCITATE. For now we will continue all supportive care. 07/02/2024: At the time of my evaluation, the patient is lying in bed. She remains sedated paralyzed. The patient remains on a ventilator support pressor support of 30, rate of 36, peep of 10, FiO2 100%. Currently the patient is off pressors and remains hemodynamically stable on the monitor. The patient continues with nutritional support via the OGT. Chemistry panel showed a sodium of 141, potassium of 5.6, chloride 105, CO2 of nine, BUN 127, creatinine of 3.5 and a random glucose of 114. Liver parameters are improving with a total bili of 0.3, AST 64, ALT 99 and alk-phos of 118. The patient remains on a Souza catheter and I's and o's showed output of 450, net balance of 1708.4 with the average urinary output of 0.02 mL/kg/hr. The patient remains on diuretic challenge with Bumex. On hematology, the patient had a WBC of 5.2, H and H 7.8/24.2 and a platelet count of 79. The patient remains on ganciclovir and fluconazole. Resuscitative measures have been changed to DNR. REVIEW OF SYSTEMS: Unable to obtain ROS from patient due to patient's medical condition. PHYSICAL EXAM: GENERAL: Sedated and paralyzed, intubated currently SUPINE HEENT: Sclera non icteric, dry scabs and sores to mucosa, sore to rt cheek, swelling to periorbital regions NECK: short neck no JVD, trachea midline LUNGS: diminished bilaterally lobes no wheezing HEART: Regular rate and rhythm. Normal S1 and S2, without murmurs ABD: Abdomen soft, nontender. Bowel sounds hypoactive last BM last night 06/29/24 per RN report EXT: No clubbing cyanosis or edema, sore to sacral area, NEURO: Intubated sedated and paralyzed. Vital Signs (last 8hr) Date Time Temp Pulse Resp B/P (MAP) Pulse Ox O2 Delivery O2 Flow Rate FiO2 07/02/24 07:04 56 100 07/02/24 04:10 61 100 07/02/24 04:00 89 Ventilator+ 100 07/02/24 02:15 64 38 112/55 (74) 92 07/02/24 02:00 64 39 109/55 (73) 92 116/63 (80) 07/02/24 01:45 65 39 107/54 (71) 92 112/56 (74) 07/02/24 01:39 64 100 LABS: Hematology Labs: Test 07/02/24 03:56 07/01/24 03:32 Range/Units White Blood Count 5.2 4.8-10.8 K/uL Red Blood Count 2.33 L 4.00-5.50 MIL/uL Hemoglobin 7.8 L 12.0-16.0 g/dL Hematocrit 24.2 L 36-48 % Mean Corpuscular Volume 103.9 H 79-99 fL Mean Corpuscular Hemoglobin 33.5 H 27.0-33.0 pg Mean Corpuscular Hemoglobin Concent 32.2 32.0-36.0 g/dL Red Cell Distribution Width 14.6 11.0-15.5 % Platelet Count 79 L 130-400 K/uL Mean Platelet Volume 10.3 7.5-10.5 fL Immature Granulocyte % (Auto) 2.1 H 0-1 % Neutrophils (%) (Auto) 95.8 H 40.0-77.0 % Lymphocytes (%) (Auto) 1.9 L 21.0-51.0 % Monocytes (%) (Auto) 0.2 L 3.0-13.0 % Eosinophils (%) (Auto) 0.0 0.0-8.0 % Basophils (%) (Auto) 0.0 0.0-5.0 % Neutrophils # (Auto) 5.0 1.8-7.7 K/uL Lymphocytes # (Auto) 0.1 L 1.0-4.8 K/uL Monocytes # (Auto) 0.0 L 0.1-1.0 K/uL Eosinophils # (Auto) 0.00 0.00-0.70 K/uL Basophils # (Auto) 0.00 0.00-0.20 K/uL Absolute Immature Granulocyte (auto 0.11 0-1 K/uL Nucleated Red Blood Cells 0.0 0.0-0.19 % Segmented Neutrophils % 99 H 40-70 % Lymphocytes % (Manual) 1 L 22-44 % Differential Comment MANUAL DIFFERENTIAL White Cell Morphology Comment Platelet Morphology Comment Red Blood Cell Morphology Chemistry Labs: Test 07/02/24 05:53 07/02/24 03:56 07/01/24 00:24 Range/Units Whole Blood Glucose 89 70-110 MG/DL Sodium Level 141 136-145 mmol/L Potassium Level 5.6 H 3.5-5.1 mmol/L Chloride Level 105 101-111 mmol/L Carbon Dioxide Level 29 21-32 mmol/L Blood Urea Nitrogen 127 *H 7-18 mg/dL Creatinine 3.5 H 0.5-1.0 mg/dL Glomerular Filtration Rate Calc 15 >90 mL/min Random Glucose 114 H 70-105 mg/dL Total Calcium 6.3 L 8.5-10.1 mg/dL Phosphorus Level 9.0 H 2.5-4.9 mg/dL Magnesium Level 2.10 1.80-2.40 mg/dL Total Bilirubin 0.3 0.2-1.0 mg/dL Aspartate Amino Transf (AST/SGOT) 64 H 10-37 U/L Alanine Aminotransferase (ALT/SGPT) 99 H 12-78 U/L Alkaline Phosphatase 118 50-136 U/L Total Protein 3.7 L 6.0-8.3 g/dL Albumin 1.4 L 3.5-5.0 g/dL Bedside Glucose Comment Notified Nurse Coagulation Labs: Test 07/01/24 03:32 Range/Units Prothrombin Time 11.4 9.6-11.6 SEC Prothromb Time International Ratio 1.02 0.85-1.15 DIAGNOSTICS / RADIOLOGY RESULTS: [ ] PLAN Continue sedation with fentanyl, versed continue rocuronium drip to help with ventilator synchrony cessation. manage vent per abg maintain plateu pressure of < 30 as much possible Continue steroids Lokelma tid for hyperkalemia Follow nephrology recommendations. ABX per ID Continue Atrovent q.4 hours. prn Panculture if febrile Son is POA Hold AC chemical PPX due to thrombocytopenia. 07/02/2024: For now, going to continue current management for the patient. She will continue on sedation and paralytic agent. We will monitor the vital sign parameters and adjust treatment as necessary. We will continue nutritional support via the OGT. Per the tenter feeder, patient is not a candidate for hemodialysis. We will continue monitoring lab parameters. The patient will also continue on antibiotic therapy per the Infectious Disease specialist. She remains critically ill with no signs of significant recovery and prognosis is poor. Resuscitative measures have been changed to DNR. We will follow the recommendation of the treating specialist. We will continue to provide general supportive care, GI and DVT prophylaxis. Further orders per attending MD and hospital course. NEURO: Minimize central acting medications as possible. Fall Precautions. Well lighted room through the day and minimize interruptions through the night to prevent acute delirium. PULMONARY: Supplemental 02 as needed Titrate Fio2 to keep Spo2 > or = 90% DuoNebs and CPT as needed IS hourly while awake for pulmonary hygiene Out of bed to chair as tolerated CARDIOVASCULAR: Follow hemodynamics. Titrate vasopressor to keep MAP >65 or systolic blood pressure >95mmHg Telemetry LINES: CVC RT IJ Arterial line ET tube' FC OG tube GI & NUTRITION: Continue nutritional support Aspirations precautions Prokinetic agents and laxatives as needed KIDNEYS & ELECTROLYTES: Strict monitoring of intake and output Daily weights Avoid nephrotoxic agents Monitor electrolytes and replace as needed Goal urine output of 30mL/hr or 0.5mL/kg/hr ENDOCRINE: Maintain blood glucose between 100-180 at all times. Insulin sliding scale for blood glucose management INFECTIOUS DISEASE: Trend temperature. Clarke-culture if febrile. Sputum culture from 05/23/24 positive for MRSA, Betty albicans Pneumocystis carinii antigen positive Panculture: 06/02/24 Blood cultures Urine cultures Respiratory culture Antibiotics: Fluconazole anciclovir HEMATOLOGY & COAGULATION: Monitor H&H. Keep Hgb > 7 Transfuse 1 unit of PRBC for Hgb < 7 Transfuse 1 pack of platelets of platelets < 20, 000 Watch for any signs and symptoms of bleeding SKIN: Pressure ulcer prevention per facility protocol Rehab: PT/OT Prophylaxis: GI: Pepcid DVT: SCD hold AC Code Status: DNR Disposition: Continues in ICU Other: Critical care time I personally spent 45 minutes of critical care time in treatment of this patient. This includes patient management, time at bedside, time reviewing tests, labs, appropriate images and studies, documentation, and patient care coordination. This time excludes separately billable procedures. DAYRON RUBIN NP Jul 02, 2024 09:33
--- NOTE | 2024-07-02 10:15 | NUR ---
dr.keatts schulz, gave verbal order to flush carl and bladder scan. carl flushed with 20ml with no resistance able to aspirate back via port and flushed again. bladder scan 0ml. Addendum: 07/02/24 at 1017 by RICARDO BARRAGAN RN RN aware pt is in renal failure. nephrology on case.
--- NOTE | 2024-07-02 12:12 | PN ---
NEPHROLOGY PROGRESS NOTE Date/Time Patient Seen: Jul 02, 2024 Reason for Consultation: 12:10 SUBJECTIVE: This is a 49-year-old female with a past medical history of newly diagnosed HIV with AIDS. She presented to the emergency room with complaints of shortness of breath She was admitted under diagnosis of acute hypoxemic respiratory failure and pneumonia. She has had a prolonged hospital stay. She was seen in the ICU, intubated, sedated, and on mechanical ventilation. Continues to require vasopressors to maintain blood pressure. She continues on antivirals and antibiotics as per Infectious Disease. She was noted to have elevated BUN/creatinine We has been consulted for renal failure. Renal function continues to worsen Electrolytes show potassium of 5.6 mmol/L, she continues Lokelma. Urine output continues to be marginal. Abdominal ultrasound showed no right hydronephrosis. She continues to be intubated and sedated Continues to require vasopressors to maintain blood pressure. No Family at the bedside Code status has been changed to DNR Condition is critical and guarded. REVIEW OF SYSTEMS: Difficult to obtain given status of the patient who remains intubated mechanically ventilated PHYSICAL EXAM: General: acutely ill, sedated, intubated, and mechanically ventilated HEENT: head is atraumatic, pupils equal and reactive, ET tube in place Neck: supple, no masses, no lymphadenopathy, no thyromegaly, no JVD Lungs: decreased breath sounds bilaterally, symmetrical chest movement Cardio: regular rate, S1 and S2 normal, no rub or gallop Abdomen: soft, non tender, no distension, no organomegaly Extremities: trace edema bilateral lower extremities, no cyanosis or clubbing Skin: no rashes or suspicious lesions Neuro: sedated LABORATORY: [ ] Hematology Labs: Test 07/02/24 03:56 07/01/24 03:32 Range/Units White Blood Count 5.2 4.8-10.8 K/uL Red Blood Count 2.33 L 4.00-5.50 MIL/uL Hemoglobin 7.8 L 12.0-16.0 g/dL Hematocrit 24.2 L 36-48 % Mean Corpuscular Volume 103.9 H 79-99 fL Mean Corpuscular Hemoglobin 33.5 H 27.0-33.0 pg Mean Corpuscular Hemoglobin Concent 32.2 32.0-36.0 g/dL Red Cell Distribution Width 14.6 11.0-15.5 % Platelet Count 79 L 130-400 K/uL Mean Platelet Volume 10.3 7.5-10.5 fL Immature Granulocyte % (Auto) 2.1 H 0-1 % Neutrophils (%) (Auto) 95.8 H 40.0-77.0 % Lymphocytes (%) (Auto) 1.9 L 21.0-51.0 % Monocytes (%) (Auto) 0.2 L 3.0-13.0 % Eosinophils (%) (Auto) 0.0 0.0-8.0 % Basophils (%) (Auto) 0.0 0.0-5.0 % Neutrophils # (Auto) 5.0 1.8-7.7 K/uL Lymphocytes # (Auto) 0.1 L 1.0-4.8 K/uL Monocytes # (Auto) 0.0 L 0.1-1.0 K/uL Eosinophils # (Auto) 0.00 0.00-0.70 K/uL Basophils # (Auto) 0.00 0.00-0.20 K/uL Absolute Immature Granulocyte (auto 0.11 0-1 K/uL Nucleated Red Blood Cells 0.0 0.0-0.19 % Segmented Neutrophils % 99 H 40-70 % Lymphocytes % (Manual) 1 L 22-44 % Differential Comment MANUAL DIFFERENTIAL White Cell Morphology Comment Platelet Morphology Comment Red Blood Cell Morphology Chemistry Labs: Test 07/02/24 11:05 07/02/24 03:56 07/01/24 00:24 Range/Units Whole Blood Glucose 82 70-110 MG/DL Sodium Level 141 136-145 mmol/L Potassium Level 5.6 H 3.5-5.1 mmol/L Chloride Level 105 101-111 mmol/L Carbon Dioxide Level 29 21-32 mmol/L Blood Urea Nitrogen 127 *H 7-18 mg/dL Creatinine 3.5 H 0.5-1.0 mg/dL Glomerular Filtration Rate Calc 15 >90 mL/min Random Glucose 114 H 70-105 mg/dL Total Calcium 6.3 L 8.5-10.1 mg/dL Phosphorus Level 9.0 H 2.5-4.9 mg/dL Magnesium Level 2.10 1.80-2.40 mg/dL Total Bilirubin 0.3 0.2-1.0 mg/dL Aspartate Amino Transf (AST/SGOT) 64 H 10-37 U/L Alanine Aminotransferase (ALT/SGPT) 99 H 12-78 U/L Alkaline Phosphatase 118 50-136 U/L Total Protein 3.7 L 6.0-8.3 g/dL Albumin 1.4 L 3.5-5.0 g/dL Bedside Glucose Comment Notified Nurse Coagulation Labs: Test 07/01/24 03:32 Range/Units Prothrombin Time 11.4 9.6-11.6 SEC Prothromb Time International Ratio 1.02 0.85-1.15 DIAGNOSTICS / RADIOLOGY: REASON: hypoxic resp failure ORDERING PHYSICIAN: MARGO LOGAN PROCEDURE: CXR1VW - CHEST 1VW CHEST 1VW REASON: hypoxic resp failure COMPARISON: 06/30/2024 FINDINGS: Heart size is stable. There are decreasing bilateral infiltrates. There is an NG tube passing into the stomach. The ET tube tip is now 2 cm above midclavicular point. There is a left-sided PICC line with tip in the superior vena cava. IMPRESSION: 1. ET tube tip 2 cm above the midclavicular point. 2. Diffuse bilateral infiltrates which have decreased since prior exam. DICTATED BY: LALO IBANEZ MD DATE: 07/02/24 1210 REASON: Hypoxic respiratory failure ORDERING PHYSICIAN: MARGO LOGAN PROCEDURE: CXR1VW - CHEST 1VW Exam Type: CHEST 1VW Clinical Information: Hypoxic respiratory failure Comparison: None Findings: Pulmonary pattern is as before. No worrisome interval changes have taken place. Impression: Stable exam. DICTATED BY: FITZ NICOLAS MD DATE: 06/30/24 0900 REASON: Hypoxic respiratory failure ORDERING PHYSICIAN: MARGO LOGAN PROCEDURE: CXR1VW - CHEST 1VW Exam Type: CHEST 1VW Clinical Information: Hypoxic respiratory failure Comparison: June 28, 2024 Findings: Pulmonary pattern is as before. No worrisome interval changes have taken place. Impression: Stable exam. DICTATED BY: FITZ NICOLAS MD DATE: 06/29/24 0852 REASON: Hypoxic respiratory failure ORDERING PHYSICIAN: MARGO LOGAN PROCEDURE: CXR1VW - CHEST 1VW CHEST 1VW HISTORY: Hypoxic respiratory failure COMPARISON: 06/27/2024 FINDINGS: A frontal projection of the chest was obtained. There are bilateral pulmonary infiltrates suggestive of pulmonary vascular congestion with possible superimposed pneumonitis. The heart is borderline enlarged. All the lines and tubes are again seen in place. No evidence of aortic calcification is seen. IMPRESSION: 1. Bilateral pulmonary infiltrates are seen suggestive of pulmonary vascular congestion with possible superimposed pneumonitis. DICTATED BY: TAMARA NGUYEN MD DATE: 06/28/24 1252 REASON: Hypoxic respiratory failure ORDERING PHYSICIAN: MARGO LOGAN PROCEDURE: CXR1VW - CHEST 1VW CHEST 1VW HISTORY: Respiratory failure COMPARISON: 06/26/2024 FINDINGS: A frontal projection of the chest was obtained. There are bilateral pulmonary infiltrates suggestive of pulmonary vascular congestion with possible superimposed pneumonitis. The heart is borderline enlarged. All the lines and tubes are again seen in place. No evidence of aortic calcification is seen. IMPRESSION: 1. Bilateral pulmonary infiltrates are seen suggestive of pulmonary vascular congestion with possible superimposed pneumonitis. Mild interval worsening is seen. DICTATED BY: TAMARA NGUYEN MD DATE: 06/27/24 1146 REASON: TRANSAMINITS ORDERING PHYSICIAN: MARGO LOGAN PROCEDURE: ABDRUQLTD - US ABDOMINAL RUQ\LTD US ABDOMINAL RUQ\E\LTD HISTORY: Elevated liver enzymes COMPARISON: None TECHNIQUE: Right upper quadrant abdominal ultrasound study was performed. FINDINGS: Liver measures 16.2 cm. Sludge material is seen throughout the gallbladder. There is small ascites. The visualized portion of the pancreas is within normal limits. Liver is echogenic consistent with liver parenchymal disease. No gallstone is seen. Common duct measures 3 mm. No evidence of gallbladder wall thickening is seen. Right kidney measures 10.5 x 5.2 x 4.3 cm. No hydronephrosis is seen of the right kidney. IMPRESSION: 1. No gallstones or ductal dilatation is seen. Sludge material in the gallbladder. Ascites. Limited study due to patient's underlying condition. 2. No hydronephrosis is seen. DICTATED BY: TAMARA NGUYEN MD DATE: 06/26/24 4500 REASON: Elevated DDIMER ORDERING PHYSICIAN: KIANA MAGUIRE PROCEDURE: VENOUS FAY - US VENOUS DOPPLER BILATERAL US VENOUS DOPPLER BILATERAL REASON: Elevated DDIMER COMPARISON: None Technique: Bilateral venous doppler ultrasound was performed with spectral analysis and color flow imaging technique. FINDINGS: There is a normal appearance of the common femoral, deep femoral, the profunda femoris and popliteal veins. Proximal calf veins appear normal as well. There is normal response to compression and augmentation. There is no evidence of deep venous thrombosis. IMPRESSION: Normal bilateral lower extremity venous Doppler ultrasound. DICTATED BY: LALO IBANEZ MD DATE: 06/11/24911 REASON: assess EF ORDERING PHYSICIAN: MARGO LOGAN PROCEDURE: ECHO CMP - ECHO 2-D COMPLETE APPROVED REPORT EXAM: Two-dimensional and M-mode echocardiogram with Doppler and color Doppler. INDICATION ICD: Assess left ventricular function. 2D Dimensions RVDd 3.9 cm LVEF(%) 69.9 (>50%) LVED Vol(simp.) 97.0 mL IVSd 1.3 (0.7-1.1cm) FS(%) 39 % LVES Vol(simp.) 44.0 mL LVDd 4.1 (3.8-5.6cm) LA (2D) 2.9 (1.6-4.0cm) LVEF(%, simp.) 55 % PWd 1.3 (0.7-1.1cm) Ao Root(2D) 2.7 (2.0-3.7cm) LA ESV INDEX (4CH) 18.80 mL/m2 IVSs 1.7 cm LVOT diam 2.0 (1.8-2.4cm) LA ESV INDEX (2CH) 26.30 mL/m2 LVDs 2.5 (2.5-4.0cm) IVC diam 1.4 cm LA ESV INDEX (BP) 22.70 mL/m2 PWs 1.6 cm M-Mode Dimensions EPSS 0.3 cm LA (MM) 2.6 (1.6-4.0cm) Ao Root(MM) 2.7 (2.0-3.7cm) Aortic Valve AoV VTI 0.2 m Ao Mean GR 4.0 mmHg LVOT VTI 0.20 m SANDRA (VMAX) 2.8 cm2 SANDRA (VTI) 2.8 cm2 Mitral Valve MV E Vmax 55.8 cm/s DECEL Time 236 ms MV A Vmax 64.7 cm/s P 1/2 T 42 ms E/A ratio 0.9 MVA (PHT) 5.3 cm2 TDI E/E' Medial 10.5 E/E' Lateral 5.8 Medial E' Peak V 5.30 cm/s Lateral E' Peak V 9.70 cm/s Tricuspid Valve RAP (EST) 3 mmHg RVSP 3.0 mmHg Left Ventricle The left ventricle is normal size. Mild concentric left ventricular hypertrophy. The LVEF is > 55%. The left ventricular diastolic function is normal. Right Ventricle The right ventricle is normal size. The right ventricular systolic function is normal. Atria The left atrium size is normal. The right atrium size is normal. Aortic Valve The aortic valve is normal in structure. No aortic regurgitation is present. There is no aortic valvular stenosis. Mitral Valve The mitral valve is normal in structure. There is no mitral valve regurgitation noted. There is no mitral valve stenosis. Tricuspid Valve The tricuspid valve is normal in structure. There is no tricuspid valve regurgitation noted. Pulmonic Valve Pulmonic valve is not well visualized. There is no pulmonic valvular regurgitation. Great Vessels The aortic root is normal in size. The IVC is normal in size and collapses >50% with inspiration. Pericardium There is no pericardial effusion. Other Information Quality : Technically difficult due to body habitus Rhythm : NSR Conclusion The LVEF is > 55%. Mild concentric left ventricular hypertrophy. The left ventricular diastolic function is normal. DICTATED BY: FERMÍN GALLOWAY DO DATE: 05/30/24 0853 REASON: suspected PE ORDERING PHYSICIAN: DAYRON RUBIN NP PROCEDURE: [facility] PE - CT CHEST PE PROTOCOL WWO CONT CT CHEST PE PROTOCOL WWO CONT HISTORY: Suspected pulmonary embolism COMPARISON: 05/21/2019 TECHNIQUE: CT angiography of the chest was performed. The study was performed using angiographic technique with maximum intensity projection reconstruction images. Patient was given 100 cc of Omnipaque through intravenous route. FINDINGS: No CT evidence of filling defect is seen to suggest pulmonary embolus. No CT evidence of aortic dissection is seen. There are bilateral pulmonary infiltrates with subsegmental atelectasis. Fatty changes of the liver are noted. No CT evidence of pleural effusion or pericardial effusion is seen. The heart is enlarged. No evidence of adrenal mass is seen. Degenerative changes of the spine are noted. IMPRESSION: 1. No CT evidence of acute pulmonary embolus is seen. Bilateral pulmonary infiltrates with subsegmental atelectasis. Fatty changes of liver are noted. CT was performed with one or more following dose reduction techniques: automated exposure control, adjustment of the mA and kv according to patient's size, or use of a iterative reconstruction technique. DICTATED BY: TAMARA NGUYEN MD DATE: 05/24/24 180 REASON: sob ORDERING PHYSICIAN: SHANTEL VICTORIA MD PROCEDURE: CXR1VW - CHEST 1VW PORTABLE CHEST RADIOGRAPH INDICATION: sob COMPARISON: 05/21/2024 CTA chest FINDINGS: Heart size is normal. The pulmonary vascularity and paul appear normal. Left lower lung greater than right lung base opacities in the right hemidiaphragm is elevated. No significant pleural effusion noted. No pneumothorax detected. IMPRESSION: Left lower lung pneumonia and minimal right lung base atelectasis. DICTATED BY: SUSAN RAY MD DATE: 05/23/24 172 ASSESSMENT: Acute renal failure Hyperkalemia Sepsis Anemia Hyperkalemia Elevated LFTs Acute hypoxic hypercapnic respiratory failure on mechanical ventilator support via ETT Severe Adult Respiratory Distress Syndrome Bilateral lower lobe pneumonia with positive MRSA and confirmed PCP 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 We have reviewed previous records in detail Any form of renal replacement therapy remains a high-risk due to underlying co ndition At this time there is no emergent need for renal replacement therapy Follow ID recommendations Hold oral medications 2 hours before and 2 hours after Lokelma administration as absorption may be decreased. We will continue to monitor the patient closely Please renally dose antibiotics. Require close monitoring of renal function and electrolytes Order CBC, CMP,and electrolytes in am Continue with IV pressors Continue mechanical ventilation and sedation. Monitor blood pressure adjust medication doses as needed Avoid hypotensive episodes May use Dilaudid 0.5 mg IV every 6 hours as needed for severe pain Monitor blood sugars Strict intake, output, and daily weight should be monitored Please renally adjust medications Avoid nephrotoxic and nonsteroidal drugs Avoid contrast if possible Will continue to monitor renal function, anemia, electrolytes Treatment plan discussed with patient Questions were answered We have discussed with the other team physicians in detail about the care plan We will continue to monitor the patient closely Total critical care time spent with patient, nursing staff, critical care team over 35 minutes ATTESTATION BY PHYSICIAN I have seen and examined the patient. I reviewed the documentation, medical decision making, and treatment plan as noted by the mid-level provider above. I agree with the findings and plan of care. LEON KOO MD, ELIZABETH FNP Jul 02, 2024 12:12
[2024-07-02] MEDS ORDERED: PHARMACY COMMUNICATION MISC SCH (14:30)
--- NOTE | 2024-07-02 16:28 | PN ---
[facility] PROGRESS NOTE Date of Service: Jul 02, 2024 Time of Service: 16:26 SUBJECTIVE: [ ] Ms. Abdullahi is a 49-year-old female that was seen and examined today on 05/23/2024. Patient is a good historian and personal health. Patient's son Dagoberto Salcido is at bedside. Patient states that she came to the emergency department with a chief complaint of shortness of breath. Onset was two weeks ago. Location is to lungs. Duration is on and off. Character is described as "easily running out of air." Initially shortness and breath was only aggravated with climbing one or two flights of stairs but symptoms have progressively worsened and patient becomes short of breath even standing or walking short distances. There was no alleviating factors however previously symptoms were being controlled with daily morning albuterol nebulizer treatments. Patient denies any associated chest pain or dizziness. Patient reports an episode of COVID in December 2023. emergency department CBC unremarkable, chemistry unremarkable, urinalysis unremarkable, influenza screen negative, COVID negative, blood gas shows PO2 less than 45. Chest x-ray shows left lower lung pneumonia and minimal right lung base atelectasis. Upon arrival to the emergency department patient was placed on a BiPAP due to respiratory distress. 05/24/2024-patient was seen and examined at the bedside, still on BiPAP. Patient is able to speak, and says she feels much better than before. Patient says after COVID in December she developed severe bronchitis and she was on Solu-Medrol and albuterol, which did not help her much and later she had high fevers and shortness of breath which is when she came to the ED.Vitals afebrile pulse 76, RR 38 tachypneic , blood pressure 115/68, pulse oxygen 99 on BiPAP flow of 60. On ABG pH 7.47, pCO2 29, PO2 109.4, oxygen saturation 98.3. [id number] potassium 4.1 BUN15 creatinine 0.5 GFR 114. We will closely monitor the patient. Pension Manager consult noted waiting on the recommendation 05/25/24 patient was seen and examined and case discussed with RN and family by the bedside. She was breathing better today. She has been on BiPAP all night but now he was on 100% non-rebreather with further efforts to continue to wean the oxygen requirements down. 05/26/24 patient was seen and examined and case discussed with the RN. No acute events noted overnight. Appreciate pulmonology and ID input continue IV antibiotics and fluconazole. 05/27/24 patient is seen and examined at bedside, acute events overnight, case discussed with the RN, BP 131/64, afebrile, saturating 96-97% via Ventimask, FiO2 40%. The patient admits cough productive of clear phlegm. Serology tests reviewed, HIV preliminary positive, discussed with the patient. 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 We will continue the patient on IV antibiotics, continue fluconazole, continue to follow Pulmonary and ID input and recommendations. After provided in the preliminary results of HIV test, she denies any suicidal or homicidal ideations. 05/28 patient has been seen and examined, no acute events overnight, case discuss ed with the RN, during my visit patient is sitting comfortably in the chair, hemodynamically stable, off Ventimask, currently on 10 L via nasal cannula, saturating 98%, tolerated BiPAP overnight. she feels better, less shortness a breath, still admits cough productive of yellow phlegm. No chest pain. Getting IV antibiotics during my visit. HIV P24 antigen, nonreactive. We will continue to follow Pulmonary and Infectious Disease input and recommendations. 05/29 patient has been seen and examined, no acute events overnight, case discussed with the RN, during my visit patient is sitting comfortably in the chair, hemodynamically stable, remains on 10 L via nasal cannula, saturating 98%, still admits cough productive of yellow phlegm. No chest pain. Getting IV antibiotics during my visit. HIV P24 antigen, nonreactive. Pending CD4 cell count. We will continue to follow Pulmonary and Infectious Disease input and recommendations. 05/30 the patient has been seen and examined, no acute events overnight, BP 11 4/66, during my visit she is on Ventimask, saturating 95%, FiO2 60%. Without the Ventimask the patient desaturates to the low 70s. Patient tolerating BiPAP during the night. Still admits cough productive of thick yellow phlegm, no chest pain. Results of CD4 cell count reviewed, discussed with the patient. We will continue broad-spectrum IV antibiotics. Continue to follow Pulmonary and Infectious Disease input and recommendations. 05/31 the patient has been seen and examined, upgraded to the ICU, during my visit she is sitting in the chair, BP 113/72, heart rate of 109, she is on Oxymizer, 30 L, FiO2 100%. She is alert oriented x3, still admits cough productive of thick yellow phlegm, no chest pain. Hemoglobin 12.9, hematocrit 36.6, WBC 14.6. ABG with pH 7.4, pCO2 40, PO2. Chest x-ray shows left lower lobe infiltrate consistent with pneumonia. She is getting IV antibiotics during my visit. Patient will remain in the ICU, continue to follow critical Care as well as infectious disease input and recommendations. 06/01 patient is seen and examined, sitting comfortable in chair, awake, following commands, remains on high-flow oxygen, FiO2 70%, 30 L, BP 117/67, heart rate of 78, respiratory rate of 30-36, saturating 100%, CBC with a hemoglobin 13.6, hematocrit 38.9, WBC 12.4. Platelet count of 341. Chest x-ray showing persistent left lung infiltrate, cardiac size and mediastinum unremarkable. The bony structures are within the normal limits. Patient getting IV antibiotics during my visit. Patient to continue with the high-dose steroids. Serology test positive for Pneumocystis sandra. Patient on Bactrim two tablets p.o. t.i.d.. Continue also doxycycline and cefepime IV. Continue to follow infectious disease input and recommendation. Continue to follow Pulmonary input and recommendations. 06/02 patient is seen and examined at bedside, currently in prone position, alert oriented x3. CPT started last night, she has started having more loose phlegm expectorated. BP 114/74, tachycardic 114, saturating 95%, high-flow nasal cannula, 30 L, FiO2 80%. CBC with a hemoglobin 16.9, hemoglobin 14 0, hematocrit 39.8, platelet count 347. Chest x-ray shows persistent left lung infiltrate. 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 Serology test for toxoplasma currently pending. Patient on IV antibiotics as well as high-dose steroids. Continue to follow infectious Disease and Pulmonary input and recommendations. 06/03 patient seen at bedside, no acute events overnight. She continues with respiratory distress, with increasing oxygen requirements. Critical Care has discussed a possible need for intubation if she does not improve. She has been started on steroids due to underlying PCP pneumonia. WBC improved from 16.9 down to 13.5, sodium stable at 132, same as yesterday, lactic acid downtrending from 4.1 down to 3.2, remainder of her labs are relatively unremarkable. 06/04 patient seen at bedside, no acute events overnight. She remains on high- flow nasal cannula, mildly tachycardic. WBC elevated at 13.3, sodium decreased from 132 down to 129, remainder of her labs are relatively unremarkable. Continue to wean supplemental oxygen. Further care per critical Care 06/05 patient seen at bedside, no acute events overnight. She remains on high- flow nasal cannula with BiPAP overnight and is still tachycardic. Heart rate ranging from 104 up to 113, WBC improved from 13.3 down to 11.1, sodium decreased from 120 down to 126, remainder of her labs are relatively unremarkable. We will continue to wean oxygen as able. 06/06 Patient seen at bedside, no acute events overnight. She remains on high- flow nasal cannula with BiPAP overnight and is still tachycardic. Heart rate ranging from 104 up to 122, WBC improved from 11.1 down to 10.6, sodium improved from 126 up to 129, remainder of her labs are relatively unremarkable. We will continue to wean oxygen as able. 06/07 patient seen at bedside, no acute events overnight. She is still on high- flow nasal cannula, RT advised to wean oxygen, currently saturating 100% on 30L. She is tachycardic, sodium decreased from 129 down to 123, likely secondary to Bactrim. Patient is asymptomatic, will continue with bactrim, if sodium cont inues to decrease consider a holiday from bactrim. 06/08 patient seen at bedside, no acute events overnight. She is still on high- flow nasal cannula, RT advised to wean oxygen, currently saturating 100% on 30L. She is tachycardic, sodium stable at 123, same as yesterday. Pending improvement in respiratory status 06/09 patient seen at bedside, he remains on high-flow nasal cannula, we will continue to wean as able, appreciate pulmonology assistance, tachycardic with heart rate ranging from 123 up to 130. She is still having low-grade fevers at 100.8. Sodium increased from 123 up to 130, remainder of her labs are relatively unremarkable. 06/10 patient is seen and examined at bedside, remains on high-flow oxygen, she feels mildly anxious, no chest pain. Still with a cough productive of white phlegm. Still tachycardic, heart rate 117-122. Patient is still spiking low- grade fever. Hemoglobin 10.9, hematocrit 30.5. Sodium remained low at 128, BUN and creatinine of 16 and 0.4. 06/11 patient is seen and examined at bedside, patient now on AVAPS, FiO2 100%, patient became restless last night, she had to be started on Precedex. During my visit she remains alert oriented x3, no chest pain. BP 120/48, she is saturating 100%. Hemoglobin 10 point, hematocrit 31.3. ABG shows persistent hypoxemia, with a PO2 of 69.4. Chest x-ray shows extensive infiltrates on the left which is stable to somewhat increased, there has been interval development of perihilar infiltrate on the right. Normal bilateral lower extremity venous Doppler ultrasound. Continue the patient on prednisone 20 mg p.o. daily, continue Bactrim two tablets p.o. t.i.d. as well as fluconazole 100 mg p.o. daily. 06/12 patient is seen and examined at bedside, intubated, on mechanical ventilation, per discussion with the RN, patient was in respiratory distress yesterday, decision made to intubate the patient. During my visit the patient is midazolam, fentanyl, patient paralyzed, also on Nimbex. She is in a prone position. On pressor support with phenylephrine. Also on Precedex. She is also on hydrocortisone 100 mg IV q.8 hours. Son at bedside, updated. ABG shows pH 7.38, pCO2 47, PO2 122, bicarb of 27.7. 06/13 patient is seen and examined at bedside, remains intubated, on mechanical ventilation, remains on midazolam, fentanyl, patient paralyzed, also on Nimbex. She is in a prone position. On BP pressor support with phenylephrine. Patient is peep of seven. ABG pH 7.34, PO2 72.3. Chest x-ray reviewed, increasing bilateral infiltrates, increasing pneumomediastinum. 06/14 patient is seen and examined at bedside, remains intubated, on mechanical ventilation, prone position, remains on midazolam, fentanyl, patient paralyzed, also on Nimbex. She is in a prone position. Off pressors. Patient is peep of seven. ABG pH 7.34, PO2 72.3. Chest x-ray shows extensive bilateral infiltrates unchanged, no pneumothorax. 06/15 patient is seen and examined at bedside, remains intubated, on mechanical ventilation, prone position, remains paralyzed, on Nimbex. Off pressors. Patient is peep of 10. ABG pH 7.34, PO2 72.3. Chest x-ray shows extensive bilateral infiltrates unchanged, no pneumothorax. Overall condition remains unchanged. No family at bedside. 06/16 patient is seen and examined at bedside, remains intubated, on mechanical ventilation, discussed with the RN, the patient has been placed on supine position. Patient remains on pressor support. Remains on sedation with midazolam and fentanyl BP 114/60, afebrile saturating 96% FiO2 100%, peep of 8. ABG today with pCO2 63, PO2 91.5. Chest x-ray with severe consultation both lungs, unchanged, interval development of pneumomediastinum, moderate to severe. Continue Solu-Medrol 80 mg IV q.8 hours, continue broad-spectrum antibiotics with meropenem 1 g IV q.8 hours, the patient remains on Bactrim. Continue ganciclovir. 06/17 patient seen at bedside, no acute events overnight. She remains intubated, paralyzed on FiO2 of 100% and PEEP of eight. Continue to try to wean towards extubation. Chest x-ray appears mildly improved from yesterday. She remains supine. Hemoglobin improved from 8.4 up to 8.6, platelets decreased from 121 d own to 112, CO2 elevated at 41, same as yesterday, remainder of her labs are relatively unremarkable. Patient is still critical with poor prognosis continue further care per critical care team. 06/18 patient seen at bedside, no acute events overnight. She remains intubated and sedated, critical care weaning patient off paralyzing agents. She is still on FiO2 of 100% with PEEP of eight, PO2 on ABG 70.8 down from 80.5 yesterday demonstrating a worsening and her oxygenation within her blood at the same venti lator settings. PCO2 increased from 70 up to 75. Hemoglobin improved from 8.6 up to 9.0, platelets improved from 112 up to 127, CO2 increased from 41 up to 45, remainder of her labs are relatively unremarkable. 06/19 patient seen at bedside, no acute events overnight. She remains intubated and sedated, critical Care to continue trying to wean to extubation. Continue current care further recommendations per critical Care 2 patient is seen and examined at bedside, no acute events overnight, she remains intubated, on mechanical ventilation, off vasopressors, sedated with fentanyl and Versed, the patient on peep of 8, saturating 97%. 06/21 patient seen at bedside, no acute events overnight. She remains intubated, paralyzed on FiO2 of 100% and PEEP of eight. Continue to try to wean towards extubation. She remains supine. Chest x-ray stable. Hemoglobin at 8.6, hematocrit 28.4. remainder of her labs are relatively unremarkable. Patient is still critical with poor prognosis continue further care per critical care team. 06/22 patient seen at bedside, no acute events overnight. She remains intubated, paralyzed on FiO2 of 100% and PEEP of eight. Continue to try to wean towards extubation. She remains supine. Chest x-ray stable. Patient is still criti vito with poor prognosis continue further care per critical care team. 06/23 patient seen at bedside, no acute events overnight. She remains intubated, on FiO2 of 90% and PEEP of eight, ABG showing improved oxygenation will wean down to 80%. Continue to try to wean towards extubation. She remains supine. Chest x-ray improved from previous. Patient is still critical with poor p rognosis continue further care per critical care team. 06/24 patient seen at bedside, she had several desaturation episodes overnight however she is currently saturating well, ABG looks good. We will wean her FiO2 to 80% and continue to monitor. Continue to try and wean towards extubation. Hemoglobin decreased from 10.4 down to 9.0, platelets decreased from 125 down to 110, potassium decreased from 5.4 down to 5.2, CO2 increased from 43 up to 49, remainder of her labs are relatively unremarkable. 06/25 patient seen at bedside, she had several desaturation episodes overnight however she is currently saturating well, ABG pending this am. Continue to try and wean FiO2 and wean towards extubation. Hemoglobin decreased from 9.0 down to 8.5, platelets decreased from 110 down to 93, potassium decreased from 5.2 down to 4.9, CO2 improved from 49 down to 45, remainder of her labs are rel atively unremarkable. 06/26 patient seen at bedside, no acute events overnight. She continues to desaturate while retaining CO2, we will continue to try and wean as able. Patient was started on Biktarvy, WBC has increased up to 15.0. She is now tachycardic with heart rate ranging from 102 up to 122. Continue care per critical Care and Infectious Disease. Patient is very ill with a poor prognosis. 06/27 patient is seen and examined, remains intubated, on mechanical ventilation, sedated with fentanyl, rocuronium, Versed. Remains on vasopressors with Mario- Synephrine. BP 114/57. ABG with pH of 7.35, pCO2 63, PO2 65. Chest x-ray reviewed, persistent bilateral pulmonary infiltrates suggestive of pulmonary vascular congestion with possible superimposed pneumonitis, mild interval worsening seen. 06/28 patient is seen and examined at bedside, case discussed with the RN, patient is off vasopressors since yesterday, BP 111/59, still intubated, on mechanical ventilation, sedated. FiO2 100%, peep of eight. Chest x-ray still with persistent bilateral pulmonary infiltrates suggestive of pulmonary vascular congestion with possible superimposed pneumonitis. Patient getting broad- spectrum IV antibiotics at the time of my visit. Creatinine 2.2. Son at bedside, updated. 06/29 patient is seen and examined at bedside, case discussed with the RN, during my visit the patient remains in the intensive care unit, intubated, mechanical ventilation. She is still requiring Levophed for blood pressure support, remains on Precedex, fentanyl, Versed and rocuronium. Chest x-ray with pulmonary pattern as before, worrisome interval change. Creatinine 2.7. ABG with pH 7.27, pCO2 60, PO2 471. 06/30 seen and examined at bedside, remains intubated, on mechanical ventilation, still requiring Levophed for blood pressure support, sedated with Versed, Precedex, rocuronium. Getting broad-spectrum IV antibiotics at the time of my visit. Patient getting nutritional support via OG tube. Case discussed with critical Care, patient with the elevated creatinine, nephrology consultation requested for possible hemodialysis, per underground production foreperson patient not a candidate. Chest x-ray with pulmonary patter stable. 2/17 Pt seen at bedside, is intubated and sedated at FiO2 100%. Still on low dose of pressors. Renal function continues to slowly deteriorate, consider holding nephrotoxic medications such as Bactrim, will defer to ID and critical care. She has very poor prognosis at this point, patient's POA continues to request aggressive medical intervention. Will continue with current medications, further care per critical care. 07/02 patient seen at bedside, remains intubated sedated at FiO2 100%. She continues on pressors. Renal function continues to deteriorate with upward trending BUN and creatinine and minimal urine output. Had discussion with family reporting that given the long duration of treatment with no improvement she is likely not to survive this hospitalization. Recommended family discuss options regarding withdrawal of care and end of life decisions, we will discuss once again tomorrow morning during rounds. We will continue with maximum medical interventions at this time. REVIEW OF SYSTEMS 12 point review of systems negative unless noted in HPI PHYSICAL EXAM GENERAL APPEARANCE: Patient intubated, on mechanical ventilation. NEUROLOGICAL: Cranial nerves II-XII grossly intact. Motor is 5/5 in bilateral upper and lower extremities proximal to distal. No sensory deficits. HEENT: Face is symmetric. Pupils are equal and reactive. Extraocular movements are intact. NECK: Supple. No JVD. No thyromegaly. No submental, submandibular, pre- /postauricular, occipital or supraclavicular lymphadenopathy. CHEST: Normal chest expansion. No Telemetry. LUNGS: Bilateral rhonchi, no expiratory wheezing CARDIOVASCULAR: Regular. S1 and S2 normal. No appreciable rubs, murmurs or gallops. ABDOMEN: Soft, nontender, and nondistended. There is no rebound, voluntary guarding, or rigidity. : Deferred. No Souza. EXTREMITIES: Non-edematous and not cyanotic. No clubbing. Good capillary ref ill. SKIN: No skin breakdown. Vital Signs (last 8hr) Date Time Temp Pulse Resp B/P (MAP) Pulse Ox O2 Delivery O2 Flow Rate FiO2 07/02/24 14:53 58 100 07/02/24 14:01 57 36 112/56 (74) 89 132/73 (92) 07/02/24 13:46 57 36 113/56 (75) 88 128/72 (90) 07/02/24 13:31 57 36 112/55 (74) 88 127/73 (91) 07/02/24 13:16 57 36 110/54 (72) 87 124/71 (88) 07/02/24 13:01 57 36 100/50 (67) 84 118/63 (81) 07/02/24 12:46 57 36 102/50 (67) 93 118/71 (87) 07/02/24 12:31 57 36 102/52 (69) 93 120/70 (87) 07/02/24 12:19 59 100 07/02/24 12:16 58 36 109/51 (70) 94 122/73 (89) 07/02/24 12:01 59 36 100/49 (66) 91 121/66 (84) 07/02/24 12:00 100 07/02/24 11:46 61 36 100/48 (65) 93 125/70 (88) 07/02/24 11:31 68 36 101/49 (66) 95 129/70 (89) 07/02/24 11:16 55 36 104/52 (69) 95 128/68 (88) 07/02/24 11:13 95 Ventilator+ 100 07/02/24 11:01 55 36 107/53 (71) 95 129/70 (89) 07/02/24 10:46 55 36 105/52 (69) 95 128/73 (91) 07/02/24 10:31 55 36 105/52 (69) 95 129/74 (92) 07/02/24 10:16 55 41 106/53 (70) 94 132/75 (94) 07/02/24 10:01 54 41 111/56 (74) 94 134/73 (93) 07/02/24 09:49 54 100 07/02/24 09:46 53 38 112/58 (76) 89 136/72 (93) 07/02/24 09:31 55 40 120/63 (82) 91 134/81 (98) 07/02/24 09:16 55 41 122/63 (82) 93 132/76 (94) 07/02/24 09:01 50 40 97/53 (68) 93 122/74 (90) 07/02/24 08:46 54 41 116/58 (77) 92 130/75 (93) 07/02/24 08:31 54 31 116/59 (78) 93 130/67 (88) LABS: Laboratory: Test 07/02/24 11:05 07/02/24 03:56 07/01/24 09:41 07/01/24 03:32 Range/Units Whole Blood Glucose 82 70-110 MG/DL White Blood Count 5.2 4.8-10.8 K/uL Red Blood Count 2.33 L 4.00-5.50 MIL/uL Hemoglobin 7.8 L 12.0-16.0 g/dL Hematocrit 24.2 L 36-48 % Mean Corpuscular Volume 103.9 H 79-99 fL Mean Corpuscular Hemoglobin 33.5 H 27.0-33.0 pg Mean Corpuscular Hemoglobin Concent 32.2 32.0-36.0 g/dL Red Cell Distribution Width 14.6 11.0-15.5 % Platelet Count 79 L 130-400 K/uL Mean Platelet Volume 10.3 7.5-10.5 fL Immature Granulocyte % (Auto) 2.1 H 0-1 % Neutrophils (%) (Auto) 95.8 H 40.0-77.0 % Lymphocytes (%) (Auto) 1.9 L 21.0-51.0 % Monocytes (%) (Auto) 0.2 L 3.0-13.0 % Eosinophils (%) (Auto) 0.0 0.0-8.0 % Basophils (%) (Auto) 0.0 0.0-5.0 % Neutrophils # (Auto) 5.0 1.8-7.7 K/uL Lymphocytes # (Auto) 0.1 L 1.0-4.8 K/uL Monocytes # (Auto) 0.0 L 0.1-1.0 K/uL Eosinophils # (Auto) 0.00 0.00-0.70 K/uL Basophils # (Auto) 0.00 0.00-0.20 K/uL Absolute Immature Granulocyte (auto 0.11 0-1 K/uL Nucleated Red Blood Cells 0.0 0.0-0.19 % Sodium Level 141 136-145 mmol/L Potassium Level 5.6 H 3.5-5.1 mmol/L Chloride Level 105 101-111 mmol/L Carbon Dioxide Level 29 21-32 mmol/L Blood Urea Nitrogen 127 *H 7-18 mg/dL Creatinine 3.5 H 0.5-1.0 mg/dL Glomerular Filtration Rate Calc 15 >90 mL/min Random Glucose 114 H 70-105 mg/dL Total Calcium 6.3 L 8.5-10.1 mg/dL Phosphorus Level 9.0 H 2.5-4.9 mg/dL Magnesium Level 2.10 1.80-2.40 mg/dL Total Bilirubin 0.3 0.2-1.0 mg/dL Aspartate Amino Transf (AST/SGOT) 64 H 10-37 U/L Alanine Aminotransferase (ALT/SGPT) 99 H 12-78 U/L Alkaline Phosphatase 118 50-136 U/L Total Protein 3.7 L 6.0-8.3 g/dL Albumin 1.4 L 3.5-5.0 g/dL Blood Gas Specimen Type Arterial Arterial Blood pH 7.282 L 7.350-7.450 Arterial Blood Partial Pressure CO2 53 H 32-45 mmHg Arterial Blood Partial Pressure O2 59.0 L 83.0-108.0 mmHg Arterial Blood HCO3 24.6 21.0-28.0 mmol/L Arterial Blood Oxygen Saturation 87.0 L 94.0-98.0 % Arterial Blood Base Excess -2.8 L -2.0-3.0 mmol/L Blood Gas Temperature 37.0 35.5-37.0 CELSIUS Blood Gas Respiration Rate 36.0 min. Blood Gas Vent Mode PC ROOM AIR FiO2 100.0 % Blood Gas PEEP 10 cm H2O Blood Gas Specimen Comment ALINEJOSE Segmented Neutrophils % 99 H 40-70 % Lymphocytes % (Manual) 1 L 22-44 % Differential Comment MANUAL DIFFERENTIAL White Cell Morphology Comment Platelet Morphology Comment Red Blood Cell Morphology Prothrombin Time 11.4 9.6-11.6 SEC Prothromb Time International Ratio 1.02 0.85-1.15 Test 07/01/24 00:24 Range/Units Bedside Glucose Comment Notified Nurse Current Medications Medications (Trade) Dose Ordered Sig/Julita Route PRN Reason Start Time Stop Time Status Last Admin Dose Admin Acetaminophen (TYLenol 650MG ELIXIR) 650 mg Q6H PRN PO MILD PAIN (1-3) 06/04/24 08:30 07/04/24 08:29 06/10/24 20:07 650 MG Acetaminophen (TYLenol 650MG SUPPOSITORY) 650 mg Q6H PRN RC MILD PAIN (1-3) 05/23/24 20:30 06/22/24 20:29 DC Acetylcysteine (MUComyst 20% 4ML) 400mg = 2ml [id number] IH 06/02/24 00:00 06/05/24 15:52 DC 06/05/24 11:35 200 MG Albumin Human 50 ml @ 0 mls/hr Q8H IV 06/27/24 20:00 06/28/24 11:00 DC 06/28/24 03:42 100 MLS/HR Albuterol (DUOneb) 1 udvial [id number] IH 05/24/24 00:00 06/10/24 10:28 DC 06/10/24 06:45 1 UDVIAL Alprazolam (XANax 0.5MG) 0.5 mg Q8H PRN PO ANXIETY 06/10/24 13:30 07/10/24 13:29 06/25/24 06:30 0.5 MG Artificial Tears (Artificial Tears) 1 DROP OR AD Q8H OU 06/11/24 14:30 07/11/24 14:29 07/02/24 13:28 1 DROP Azithromycin 250 ml @ 250 mls/hr Q24H IVPB 05/24/24 17:00 05/24/24 14:41 DC Azithromycin 250 ml @ 250 mls/hr Q24H STAT IVPB 05/23/24 17:17 05/24/24 14:41 DC 05/23/24 17:45 250 MLS/HR Benzocaine (Cepacol Sore Throat Lozenge) 1 each Q4H PRN MM SORE THROAT 06/08/24 10:00 06/29/24 17:27 DC 06/09/24 07:44 1 EACH Bisacodyl (DulcoLAX) 10 mg DAILY PRN RC CONSTIPATION 06/08/24 14:00 07/08/24 13:59 06/23/24 10:00 10 MG Bumetanide (Bumex 1mg Vial) 1 mg Q8H IVP 06/28/24 22:00 07/28/24 21:59 07/02/24 12:56 1 MG Cadexomer Iodine (Iodosorb Gel 40gm) 1 APPL TO RIGHT FAC... DAILY TP 06/19/24 09:00 07/18/24 08:59 07/02/24 09:25 1 APPL Cadexomer Iodine (Iodosorb Gel 40gm) 1 appl DAILY TP 06/18/24 09:00 06/19/24 07:23 DC 06/18/24 14:09 1 APPL Calcium Gluconate 1 gm/Sodium Chloride 100 ml @ 0 mls/hr PROTOCOL IV 06/27/24 10:30 07/27/24 10:29 07/01/24 10:22 100 MLS/HR Cefepime HCl (MAXipime 2 gm vial) 2 gm Q12H IVPB 05/24/24 15:00 06/03/24 14:59 DC 06/03/24 03:18 2 GM Ceftriaxone Sodium (ROCEphine 1G INJ) 1 gm Q24H IVPB 05/24/24 17:30 05/24/24 14:41 DC Chlorhexidine Gluconate (Peridex) 15 ml Q6H MM 06/07/24 17:00 06/11/24 14:27 DC 06/10/24 12:22 15 ML Chlorhexidine Gluconate (Peridex) 15 ml Q8H MM 06/11/24 14:30 06/25/24 14:29 DC 06/25/24 06:31 15 ML Cisatracurium Besylate (Nimbex) ONCE IVP 06/11/24 14:30 06/11/24 15:57 DC Cisatracurium Besylate 100 mg/ Sodium Chloride 100 ml @ 0 mls/hr PROTOCOL IV 06/11/24 23:30 06/23/24 16:20 DC 06/17/24 09:27 14.94 MLS/HR Cisatracurium Besylate 100 mg/ Sodium Chloride 100 ml @ 0 mls/hr PROTOCOL IV 06/23/24 16:30 06/23/24 18:43 DC 06/23/24 16:46 2.6 MLS/HR Clotrimazole (Mycelex) 10 mg TID MM 06/04/24 21:00 06/14/24 08:39 DC 06/13/24 20:28 10 MG Dexmedetomidine/ Sodium Chloride (PRECEdex 400MCG/ 100ML-NS) 400 mcg PROTOCOL IV 06/10/24 19:30 06/27/24 09:26 DC 06/25/24 05:08 400 MCG Dexmedetomidine/ Sodium Chloride (PRECEdex 400MCG/ 100ML-NS) 400 mcg PROTOCOL IV 06/27/24 09:30 07/27/24 09:29 07/02/24 12:51 400 MCG Dextrose (D50w) 50 ml AD PRN IV HYPOGLYCEMIA PROTOCOL 07/01/24 01:30 07/31/24 01:29 07/02/24 11:30 50 ML Diphenhydramine HCl (BENAdryl INJ) 25 mg Q6H PRN IV ITCHING 06/23/24 19:00 07/23/24 18:59 06/23/24 18:54 25 MG Dobutamine HCl/ Dextrose 250 ml @ 0 mls/hr PROTOCOL IV 06/12/24 16:30 06/12/24 16:53 DC Doxycycline Hyclate 250 ml @ 125 mls/hr Q12H IV 05/24/24 16:30 06/03/24 16:29 DC 06/03/24 04:23 125 MLS/HR Enoxaparin Sodium (Lovenox 80mg) 40 mg DAILY SQ 06/15/24 09:00 06/15/24 09:30 DC Enoxaparin Sodium (Lovenox 80mg) 80 mg BID SQ 06/11/24 09:00 06/14/24 23:28 DC 06/14/24 20:33 80 MG Enoxaparin Sodium (Lovenox) 40 mg DAILY SQ 06/15/24 09:30 07/01/24 07:55 DC 06/27/24 08:19 40 MG Enoxaparin Sodium (Lovenox) 40 mg Q24H SQ 05/23/24 21:00 06/11/24 04:36 DC 06/10/24 20:07 40 MG Famotidine (Pepcid 20mg Vial) 20 mg DAILY IV 05/24/24 09:00 06/14/24 08:39 DC 06/13/24 08:15 20 MG Fentanyl Citrate 100 ml @ 2.5 mls/hr PROTOCOL IV 06/29/24 21:00 07/06/24 20:59 07/02/24 10:11 2.5 MLS/HR Fentanyl Citrate 2500 mcg/Sodium Chloride 250 ml @ 0 mls/hr AD PRN IV TITRATE icu sedation 06/27/24 20:00 06/27/24 20:03 DC Fentanyl Citrate 2500 mcg/Sodium Chloride 250 ml @ 0 mls/hr AD PRN IV TITRATE 06/17/24 05:30 06/17/24 05:18 DC Fentanyl/Sodium Chloride 250 ml @ 0.1 mls/hr PROTOCOL IV 06/12/24 00:00 06/17/24 00:00 DC 06/16/24 17:36 0.1 MLS/HR Fentanyl/Sodium Chloride 250 ml @ 0 mls/hr AD PRN IV ICU SEDATION 06/17/24 05:30 06/22/24 05:29 DC 06/21/24 19:51 30 MLS/HR Fentanyl/Sodium Chloride 250 ml @ 0 mls/hr PROTOCOL IV 06/27/24 20:30 06/29/24 21:04 DC 06/29/24 13:10 30 MLS/HR Fentanyl/Sodium Chloride 250 ml @ 0 mls/hr PROTOCOL IV 06/22/24 15:00 06/27/24 14:59 DC 06/27/24 12:13 35 MLS/HR Fluconazole (DiFLUCan 100 mg TAB) 200 mg DAILY PO 06/05/24 09:00 07/05/24 08:59 07/02/24 08:53 200 MG Fluconazole/ Sodium Chloride 100 ml @ 100 mls/hr DAILY IV 05/26/24 09:00 05/27/24 15:57 DC 05/27/24 09:07 100 MLS/HR Furosemide (LASix 20MG VIAL) 20 mg DAILY IV 05/31/24 09:00 06/07/24 13:18 DC 06/03/24 08:38 20 MG Furosemide (LASix 20MG VIAL) 20 mg DAILY IV 06/17/24 10:00 06/17/24 12:13 DC 06/17/24 09:46 20 MG Furosemide (LASix 20MG VIAL) 20 mg Q12H IV 06/11/24 11:00 06/13/24 09:31 DC 06/12/24 21:54 20 MG Furosemide (LASix 20MG VIAL) 20 mg Q12H IV 06/17/24 22:00 06/18/24 10:01 DC 06/18/24 09:44 20 MG Furosemide (LASix 20MG VIAL) 20 mg Q8H IV 06/13/24 09:30 06/16/24 11:00 DC 06/16/24 08:44 20 MG Furosemide (LASix 20MG VIAL) 20 mg Q8H IV 06/19/24 17:00 06/26/24 11:05 DC 06/26/24 09:13 20 MG Ganciclovir Sodium 250 mg/ Sodium Chloride 100 ml @ 100 mls/hr Q12H IV 06/27/24 21:00 06/28/24 19:50 DC 06/28/24 09:37 100 MLS/HR Ganciclovir Sodium 250 mg/ Sodium Chloride 100 ml @ 100 mls/hr Q24H IV 06/29/24 09:00 07/29/24 08:59 07/02/24 11:30 100 MLS/HR Ganciclovir Sodium 430 mg/ Sodium Chloride 100 ml @ 100 mls/hr Q12H IV 06/13/24 09:00 06/27/24 18:34 DC 06/27/24 11:41 100 MLS/HR Ganciclovir Sodium 500 mg/ Sodium Chloride 100 ml @ 100 mls/hr Q12H IV 06/11/24 18:00 06/11/24 15:48 DC Ganciclovir Sodium (Ganciclovir Sodium) 500 mg Q12H IV 06/12/24 17:00 06/13/24 08:35 DC Guaifenesin/ Dextromethorphan (RobiTUSSin DM 200/20MG 10ML) 10 ml Q4H PRN PO COUGH 05/23/24 20:30 06/22/24 20:29 DC 06/10/24 20:07 10 ML Home Med (Home Medication) BIKTARVY (1 TAB) Q24H PO 06/24/24 17:00 06/28/24 14:57 DC 06/27/24 17:08 1 EACH Hydralazine HCl (APRESOLine 20MG INJ) 10 mg Q4H PRN IV ADMINISTER FOR SBP > 160 06/26/24 16:30 07/26/24 16:29 06/26/24 16:27 10 MG Hydrocortisone Sodium Succinate (Solu-corTEF 100MG) 100 mg Q8H IV 06/11/24 05:00 06/14/24 08:39 DC 06/14/24 06:13 100 MG Hydroxyzine HCl (ATArax 25MG TAB) 25 mg TID PRN PO ITCHING 06/10/24 14:00 06/29/24 17:27 DC 06/27/24 08:20 25 MG Insulin Glargine (LANtus 100 UNITS/ML 10 ML VIAL) 15 units BID@0730,2100 SQ 06/27/24 21:00 07/01/24 09:16 DC 06/30/24 21:04 15 UNITS Insulin Human Regular (humuLIN R 100 UNIT/ML 3ML) INSULIN SLIDING SCAL... ACHS SQ 06/19/24 16:30 06/20/24 15:07 DC 06/20/24 12:30 5 UNIT Insulin Human Regular (humuLIN R 100 UNIT/ML 3ML) INSULIN SLIDING SCAL... Q6H6 SQ 06/20/24 18:00 07/19/24 16:29 06/28/24 12:40 2 UNIT Ipratropium Normanna (AtrovENT UD) 0.5 MG [id number] IH 06/10/24 14:00 06/27/24 14:53 DC 06/27/24 14:01 0.5 MG Ipratropium Normanna (AtrovENT UD) 0.5 MG [id number] PRN IH SHORTNESS OF BREATH 06/27/24 15:00 07/10/24 13:59 06/29/24 03:21 0.5 MG Lactated Ringer's (Lactated Ringers 1000ml) 500 ml ONCE IV 06/02/24 20:00 06/02/24 19:54 DC Lactulose (Constulose 20gm/ 30ml Udcup) 20 gm Q8H PO 06/28/24 11:00 06/29/24 17:27 DC 06/29/24 11:32 20 GM Lactulose (Constulose 20gm/ 30ml Udcup) 20 gm Q8H PO 06/29/24 21:00 06/30/24 21:21 DC 06/30/24 05:25 20 GM Levofloxacin/ Dextrose 100 ml @ 100 mls/hr Q24H IV 05/24/24 15:00 05/24/24 16:16 DC Magnesium Sulfate 50 ml @ 0 mls/hr PROTOCOL PRN IV hypomagnesemia 05/28/24 08:00 06/27/24 07:59 DC 06/11/24 05:26 50 MLS/HR Meropenem (Merrem 1gm) 1 gm Q8H IVPB 1/30/25 15:00 06/18/24 21:57 DC 06/18/24 15:34 1 GM Meropenem (Merrem 1gm) 1 gm Q8H IVPB 06/19/24 01:00 06/21/24 00:59 DC 06/20/24 16:50 1 GM Meropenem (Merrem) 1 gm Q8H IVPB 06/11/24 15:00 06/13/24 11:52 DC 06/13/24 08:14 1 GM Meropenem 1 gm/ Sodium Chloride 100 ml @ 33.333 mls/ hr Q8H IV 06/11/24 14:30 06/11/24 14:28 DC Methylprednisolone Sodium Succinate (Solu-medROL 40MG) 20 mg Q12H IVP 06/05/24 07:00 06/09/24 09:13 DC 06/09/24 07:25 20 MG Methylprednisolone Sodium Succinate (Solu-medROL 40MG) 40 mg Q12H IVP 05/28/24 18:00 05/29/24 16:45 DC 05/29/24 05:32 40 MG Methylprednisolone Sodium Succinate (Solu-medROL 40MG) 40 mg Q6H IVP 05/29/24 16:30 06/04/24 16:44 DC 06/04/24 11:13 40 MG Methylprednisolone Sodium Succinate (Solu-medROL 40MG) 40 mg Q6H IVP 06/04/24 18:00 06/05/24 00:24 DC 06/04/24 23:48 40 MG Methylprednisolone Sodium Succinate (Solu-medROL 40MG) 40 mg Q8H IVP 05/24/24 01:00 05/25/24 21:51 DC 05/25/24 17:28 40 MG Methylprednisolone Sodium Succinate (Solu-medROL 40MG) 60 mg Q6H IVP 05/25/24 22:00 05/28/24 02:25 DC 05/27/24 23:55 60 MG Methylprednisolone Sodium Succinate (Solu-medROL 40MG) 60 mg Q6H IVP 05/28/24 06:00 05/28/24 08:27 DC 05/28/24 06:47 60 MG Methylprednisolone Sodium Succinate (Solu-medROL 40MG) 60 mg Q6H IVP 06/11/24 02:30 06/11/24 04:23 DC 06/11/24 02:46 60 MG Methylprednisolone Sodium Succinate (Solu-medROL 40MG) 80 mg Q8H IVP 06/14/24 17:00 07/14/24 08:59 07/02/24 08:53 80 MG Methylprednisolone Sodium Succinate (Solu-medROL 125MG) 80 mg Q8H IVP 06/14/24 09:00 06/14/24 14:53 DC 06/14/24 08:48 80 MG Metoclopramide HCl (regLAN 10MG/ 10ML UD CUP) 5 mg Q8H PO 06/29/24 21:00 07/22/24 07:29 07/02/24 12:56 5 MG Metoclopramide HCl (regLAN 10MG/ 10ML UD CUP) 5 mg TIDAC PO 06/22/24 07:30 06/29/24 17:27 DC 06/29/24 11:32 5 MG Metronidazole/ Sodium Chloride (flaGYL) 500 mg Q8H IV 05/25/24 22:00 05/25/24 21:56 DC Midazolam HCl 50 ml @ 0 mls/hr AD PRN IV TITRATE 06/12/24 01:30 06/12/24 08:30 DC 06/12/24 02:30 10 MLS/HR Midazolam HCl 50 ml @ 0 mls/hr AD PRN IV TITRATE 07/01/24 05:30 07/08/24 05:29 07/02/24 11:41 10 MLS/HR Midazolam HCl 100 ml @ 0 mls/hr AD PRN IV TITRATE 06/12/24 09:00 07/01/24 05:15 DC 06/30/24 18:38 10 MLS/HR Morphine Sulfate (morPHINE 4MG SYG) 4 mg Q4H PRN IM RESPIRATORY SYMPTOMS 06/11/24 03:30 06/14/24 23:33 DC 06/11/24 03:27 4 MG Norepinephrine 250 ml @ 0 mls/hr PROTOCOL IV 06/23/24 21:00 07/23/24 20:59 07/01/24 13:36 4.2 MLS/HR Ondansetron HCl (zoFRAN 4MG INJ) 4 mg Q6H PRN IV NAUSEA/VOMITING 05/23/24 20:30 06/22/24 20:29 DC Pantoprazole Sodium (PROTonix 40MG INJ) 40 mg BID IVP 06/12/24 21:00 07/12/24 20:59 07/02/24 08:53 40 MG Pharmacy Profile Note (Lace Assessment) 1 each AD MISC 06/27/24 18:00 06/27/24 18:40 DC Pharmacy Profile Note (Lace Assessment) 1 each AD MISC 06/17/24 16:30 06/17/24 16:27 DC Pharmacy Profile Note (Pharmacy Communication) 1 each ONCE MISC 06/11/24 14:30 06/11/24 15:53 DC Pharmacy Profile Note (Pharmacy Communication) 1 each ONCE MISC 06/11/24 20:30 06/11/24 20:14 DC Pharmacy Profile Note (Pharmacy Communication) 1 each ONCE MISC 06/12/24 17:00 06/12/24 17:07 DC Pharmacy Profile Note (Pharmacy Communication) 1 each ONCE MISC 06/24/24 13:00 06/24/24 12:43 DC Pharmacy Profile Note (Pharmacy Communication) 1 each ONCE MISC 07/02/24 14:30 07/09/24 14:29 UNV Pharmacy Profile Note (Pharmacy Communication) 1 each ONCE MISC 06/23/24 20:30 06/23/24 20:32 DC Phenylephrine HCl 10 mg/Sodium Chloride 251 ml @ 0 mls/hr AD PRN IV DIRECTED 06/11/24 03:00 06/12/24 18:12 DC 06/12/24 14:10 47 MLS/HR Phenylephrine HCl 50 mg/Sodium Chloride 250 ml @ 0 mls/hr PROTOCOL PRN IV PROTOCOL 06/12/24 18:00 07/12/24 17:59 06/13/24 08:57 12.45 MLS/HR Polyethylene Glycol (MIRalax 3350 17 GM POWD.PACK) 17 gm DAILY PO 06/22/24 09:00 07/22/24 08:59 07/02/24 08:52 17 GM Potassium Chloride 100 ml @ 100 mls/hr AD PRN IV POTASSIUM PROTOCOL 05/28/24 08:00 06/27/24 07:59 DC Potassium Chloride (K-Dur/Klor-Con 20meq) 20 meq AD PRN PO POTASSIUM PROTOCOL 05/28/24 08:00 06/27/24 07:59 DC Potassium Chloride (KCl 10% Elixir 20meq/15ml) 20 meq AD PRN PO POTASSIUM PROTOCOL 05/28/24 08:00 06/27/24 07:59 DC Prednisone (deltaSONE/ oraSONE 20MG TAB) 20 mg DAILY PO 06/10/24 09:00 06/14/24 08:39 DC 06/13/24 08:15 20 MG Rocuronium Normanna 100 mg/ Sodium Chloride 100 ml @ 0 mls/hr PROTOCOL IV 06/24/24 08:30 06/25/24 02:44 DC 06/25/24 01:00 0 MLS/HR Rocuronium Normanna 200 mg/ Sodium Chloride 200 ml @ 0 mls/hr PROTOCOL IV 06/25/24 03:00 07/24/24 08:29 07/02/24 11:30 43.2 MLS/HR Rocuronium Normanna (ZemuRON) 10 mg Q1H PRN IV RESP DISTRESS/VENT DISYNCHRONY 06/11/24 20:30 06/11/24 23:29 DC 06/11/24 20:33 10 MG Rocuronium Normanna (ZemuRON) 50 mg Q4H PRN IV VENT DYSSYNCHRONY 06/17/24 16:30 06/23/24 16:19 DC 06/23/24 04:03 50 MG Sodium Chloride 500 ml @ 500 mls/hr Q1H IV 06/02/24 20:00 06/02/24 20:59 DC 06/02/24 21:34 500 MLS/HR Sodium Chloride 1,000 ml @ 0 mls/hr Q0M IV 06/26/24 19:00 06/29/24 17:27 DC Sodium Chloride 1,000 ml @ 75 mls/hr [id number] IV 06/07/24 13:30 06/10/24 17:02 DC 06/10/24 09:05 75 MLS/HR Sodium Chloride (Sodium Chloride) 1,000 mg BIDAC PO 06/07/24 16:30 06/09/24 07:28 DC 06/08/24 16:58 1,000 MG Sodium Chloride (Sodium Chloride) 1,000 mg BIDAC PO 06/09/24 07:30 06/12/24 16:35 DC 06/12/24 12:30 1,000 MG Sodium Chloride (Sodium Chloride) 1,000 mg Q12H PO 06/12/24 21:00 07/09/24 07:29 07/02/24 08:53 1,000 MG Sodium Zirconium Cyclosilicate (Lokelma 10gm Powder) 10 gm TID PO 07/01/24 14:00 07/02/24 13:59 DC 07/02/24 08:52 10 GM Sodium Zirconium Cyclosilicate (Lokelma) 5 gm DAILY10 PO 06/08/24 10:30 06/10/24 10:29 DC 06/08/24 10:50 5 GM Thiamine HCl (Vitamin B-1) 100 mg DAILY IVP 06/28/24 09:00 07/28/24 08:59 07/02/24 08:53 100 MG Trimethoprim/ Sulfamethoxazole (BactRIM DS) 1 tab BID PO 05/26/24 21:00 05/29/24 16:18 DC 05/29/24 08:07 1 TAB Trimethoprim/ Sulfamethoxazole (BactRIM DS) 2 tab TID PO 05/29/24 16:30 06/05/24 20:59 DC 06/05/24 14:55 2 TAB Trimethoprim/ Sulfamethoxazole (BactRIM DS) 2 tab TID PO 06/06/24 09:30 06/11/24 21:54 DC 06/10/24 13:58 2 TAB Trimethoprim/ Sulfamethoxazole 160 mg/Dextrose 250 ml @ 333.333 mls/hr BID@0600,1800 IV 06/22/24 06:00 06/22/24 17:17 DC 06/22/24 06:25 333.333 MLS/HR Trimethoprim/ Sulfamethoxazole 160 mg/Dextrose 250 ml @ 333.333 mls/hr DAILY IV 06/23/24 09:00 07/02/24 06:00 DC 07/01/24 08:55 333.333 MLS/HR Trimethoprim/ Sulfamethoxazole 320 mg/Dextrose 500 ml @ 333.333 mls/hr Q8H IV 06/19/24 00:30 06/21/24 21:30 DC 06/21/24 16:16 333.333 MLS/HR Trimethoprim/ Sulfamethoxazole 320 mg/Dextrose 500 ml @ 500 mls/hr Q8H IV 06/11/24 22:30 06/12/24 16:35 DC 06/12/24 06:39 500 MLS/HR Trimethoprim/ Sulfamethoxazole 320 mg/Dextrose 500 ml @ 500 mls/hr Q8H IV 06/12/24 18:00 06/13/24 11:13 DC 06/13/24 05:30 500 MLS/HR Trimethoprim/ Sulfamethoxazole 320 mg/Dextrose 500 ml @ 500 mls/hr Q8H IV 06/13/24 13:30 06/18/24 21:55 DC 06/18/24 14:08 500 MLS/HR Trimethoprim/ Sulfamethoxazole 320 mg/Dextrose 500 ml @ 500 mls/hr Q8H IV 06/18/24 11:59 06/19/24 00:56 DC 06/18/24 11:59 500 MLS/HR Valganciclovir (ValGANCIClovir HCL) 900 mg BID PO 06/11/24 21:00 06/13/24 08:37 DC Wound Care/ Dressing Products (Venelex Ointment) 1 VOLODYMYR AD TID TP 06/14/24 14:00 07/14/24 13:59 07/02/24 13:28 1 GM DIAGNOSTICS / RADIOLOGY: [ ] ASSESSMENT: Acute hypoxemic respiratory failure, POA Bilateral lower lobe bacterial pneumonia + MRSA POA, +Azra Suspected PCP PNA based on CT findings vs viral/Atypical PNA . 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 Currently the patient on FiO2 100%. Today creatinine at 2.2, continue to follow Nephrology input and recommendations. Continue fentanyl, Versed, Precedex, and rocuronium. Continue broad-spectrum antibiotics Continue gancyclovir IV q.12 hours. Continue Solu-Medrol 80 mg IV q.8 hours Continue to follow infectious disease input and recommendation Continue to follow daily chest x-ray and ABG. Further orders per hospitalization course Prognosis of this patient remains poor and guarded. Son at bedside during my visit, updated, all questions answered. Disposition: Pending improvement in clinical condition. time spent: > 35 min HEATHER RICE MD Jul 02, 2024 16:28
[2024-07-02] MEDS: ATOVAQUONE 750 MG/5 ML SUSP PO SCH (17:17)
[2024-07-02] MEDS ORDERED: COMPOUND PO MISCELLANEOUS 1 EACH MISC MISC PRN (17:30)
--- NOTE | 2024-07-02 17:45 | NUR ---
pt was provided incontinence care. satting 95% prior on vent, then satting mid 70s's, pt suctioned, then sat up to high fowlers, RT yariel notifed. 100% boost o2 given.
--- NOTE | 2024-07-02 21:16 | PN ---
INFECTIOUS DISEASE FOLLOWUP NOTE DATE OF SERVICE: 07/02/2024 SUBJECTIVE: The patient is seen today. No fevers or chills. Remained intubated, on ventilatory support. The patient is still hypotensive. She is on vasopressor. The patient remained in renal failure. No family at the bedside at this time. Tolerating NG tube feeding. The patient decompensates easily, on mild ____ will be perfect. PHYSICAL EXAMINATION: VITAL SIGNS: Temperature 98.3. EYES: No icterus. Pupils equal and reactive. HENT: No oral thrush seen. Moist oral mucosa. NECK: Supple, no JVD or thyromegaly. LUNGS: Crackles bilaterally, no rhonchi. CARDIOVASCULAR: S1, S2 regular. No murmur heard. ABDOMEN: Obese, soft. Bowel sound is present. CENTRAL NERVOUS SYSTEM: The patient is sedated, bedbound. SKIN: No rashes, no itchiness. LYMPHATIC: No peripheral lymphadenopathy. MUSCULOSKELETAL: Edema of upper and lower extremities. GENITOURINARY: Souza catheter in place. ASSESSMENT: A 49-year-old female with multiple problems, which include: * Human immunodeficiency virus/acquired immunodeficiency syndrome. * Acute hypoxic respiratory failure, status post intubation. * Methicillin-resistant Staphylococcus aureus pneumonia. * Pneumocystis jirovecii pneumonia. * Acute renal failure. * Obesity. * Right gluteal ulcer. * ____ immunosuppression. PLAN: * Continue Biktarvy. * Continue ventilatory support. * Continue nutritional support. * Continue DVT prophylaxis. * Monitor electrolytes. * The patient will be started on meropenem. * Continue NG tube. * Continue antiemetic. TID: [id number] RECEIPT: [id number]
[2024-07-02] MEDS ORDERED: FENTanyl CITRate PF 0.05 MG/ML 2,500 MCG in 0.9% NACL 250ML 200 ML IV PRN (22:00)
[2024-07-02] MEDS: FENTanyl 2500MCG+NS 250ML 250 ML IV PRN (22:47)
[2024-07-03] VITALS (61 sets, daily range): BP systolic 0–151; BP diastolic 0–80; PULSE 56–118; RESP 11–60; O2SAT 47–100
[2024-07-03 04:22] LABS: BASOPHILS # (AUTO) 0.01 K/uL (0.00-0.20); BASOPHILS % (AUTO) 0.1 % (0.0-5.0); HEMATOCRIT 26.9 % (36-48); LYMPHOCYTES # (AUTO) 0.1 K/uL (1.0-4.8); LYMPHOCYTES % (AUTO) 1.2 % (21.0-51.0); MEAN CORPUSCULAR HEMOGLOBIN 33.1 pg (27.0-33.0); MEAN CORPUSCULAR HGB CONC 31.6 g/dL (32.0-36.0); MEAN CORPUSCULAR VOLUME 104.7 fL (79-99); MONOCYTES % (AUTO) 0.3 % (3.0-13.0); NEUTROPHILS # (AUTO) 7.3 K/uL (1.8-7.7); NEUTROPHILS % (AUTO) 97.1 % (40.0-77.0); NUCLEATED RED BLOOD CELLS 0.5 % (0.0-0.19); PLATELET COUNT (AUTO) 111 K/uL (130-400); RED BLOOD CELL COUNT(AUTO) 2.57 MIL/uL (4.00-5.50); RED CELL DISTRIBUTION WIDTH 14.6 % (11.0-15.5); WHITE BLOOD COUNT (AUTO) 7.5 K/uL (4.8-10.8)
[2024-07-03 04:33] LABS: CREATININE 3.6 mg/dL (0.5-1.0); POTASSIUM 5.6 mmol/L (3.5-5.1)
[2024-07-03 08:36] LABS: MAGNESIUM 2.2 mg/dL (1.80-2.40)
--- NOTE | 2024-07-03 08:54 | PN ---
[facility] PROGRESS NOTE Date Patient Seen: Jul 03, 2024 Time of Visit: 09:53 Supervising Physician: Fani Bacon MD Primary Care Physician: Stu Foss MD Outpatient Specialists: Inpatient Consults: Pulmonology PROBLEM LIST: - Left side Tension Pneumothorax 07/03/24 s/p needle decompression and chest tube placement - Acute hypoxic hypercapnic respiratory failure on mechanical ventilator support via ETT - Severe Adult Respiratory Distress Syndrome - MODS (respiratory, Liver , and kidneys) - RADHA - Hyperkalemia improved - Transaminitis - Bilateral lower lobe pneumonia with positive MRSA and confirmed PCP - Disseminated herpes simplex viral infection - Newly diagnoses HIV with AIDS - Morbid obesity, BMI 31.4 - Severe protein calorie malnutrition - Former tobacco use disorder INTERVAL HISTORY: 07/03/24- patient continues critically ill sedated and paralyzed. This morning she has been started on Levophed due to hypotension, patient this saturating into the 80s. Urine output has been minimal at 25 mL in the last 24 hours, patient with noticeable anasarca. She is not a candidate for hemodialysis due to high-risk of precipitating cardiac arrest per Nephrology. WBCs today 7.5 H&H of 7.5/26.9 slightly improved from yesterday platelet count is 111 K. neutrophils remain elevated at 97.1 today. On chemistries sodium 141 potassium was 5.6 BUN of 121 creatinine of 3.6 GFR of 15 total calcium of 6.3 phosphorus of 10. ABG with a pH of 6.8 pCO2 of 85 po2 < 45. Sodium bicarb 150 mEq x 1 administered. Chest x-ray ordered. I was called later to the bedside due to patient with pneumothorax on chest x- ray. Needle decompression done emergently due to patient with hypotension and desaturation tachycardic. ED physician arrived to assist with open thoracostomy chest tube placement to left side. Audible air released and blood pressure is improved. On repeat chest x-ray there is partial re-expansion of the left lung although there is a small pneumothorax remained in there has been resolution of the mediastinal shift. Dr Bacon has updated son and he was made aware of poor prognosis. REVIEW OF SYSTEMS: Unable to obtain ROS from patient due to patient's medical condition. PHYSICAL EXAM: GENERAL: Sedated and paralyzed, intubated currently SUPINE, anasarca HEENT: Sclera non icteric, dry scabs and sores to mucosa, sore to rt cheek, swelling to periorbital regions NECK: short neck no JVD, trachea midline LUNGS: diminished bilaterally lobes no wheezing HEART: Regular rate and rhythm. Normal S1 and S2, without murmurs ABD: Abdomen soft, nontender. Bowel sounds hypoactive last BM last night 07/01/24 per RN report EXT: No clubbing cyanosis or edema, sore to sacral area, NEURO: Intubated sedated and paralyzed. Vital Signs (last 8hr) Date Time Temp Pulse Resp B/P (MAP) Pulse Ox O2 Delivery O2 Flow Rate FiO2 07/03/24 07:03 86/51 07/03/24 06:40 60 100 07/03/24 04:42 60 100 LABS: Hematology Labs: Test 07/03/24 03:46 Range/Units White Blood Count 7.5 # 4.8-10.8 K/uL Red Blood Count 2.57 L 4.00-5.50 MIL/uL Hemoglobin 8.5 L 12.0-16.0 g/dL Hematocrit 26.9 L 36-48 % Mean Corpuscular Volume 104.7 H 79-99 fL Mean Corpuscular Hemoglobin 33.1 H 27.0-33.0 pg Mean Corpuscular Hemoglobin Concent 31.6 L 32.0-36.0 g/dL Red Cell Distribution Width 14.6 11.0-15.5 % Platelet Count 111 #L 130-400 K/uL Mean Platelet Volume 10.8 H 7.5-10.5 fL Immature Granulocyte % (Auto) 1.3 H 0-1 % Neutrophils (%) (Auto) 97.1 H 40.0-77.0 % Lymphocytes (%) (Auto) 1.2 L 21.0-51.0 % Monocytes (%) (Auto) 0.3 L 3.0-13.0 % Eosinophils (%) (Auto) 0.0 0.0-8.0 % Basophils (%) (Auto) 0.1 0.0-5.0 % Neutrophils # (Auto) 7.3 1.8-7.7 K/uL Lymphocytes # (Auto) 0.1 L 1.0-4.8 K/uL Monocytes # (Auto) 0.0 L 0.1-1.0 K/uL Eosinophils # (Auto) 0.00 0.00-0.70 K/uL Basophils # (Auto) 0.01 0.00-0.20 K/uL Absolute Immature Granulocyte (auto 0.10 0-1 K/uL Nucleated Red Blood Cells 0.5 H 0.0-0.19 % Chemistry Labs: Test 07/03/24 06:30 07/03/24 03:46 07/02/24 03:56 Range/Units Whole Blood Glucose 108 # 70-110 MG/DL Sodium Level 141 136-145 mmol/L Potassium Level 5.6 H 3.5-5.1 mmol/L Chloride Level 106 101-111 mmol/L Carbon Dioxide Level 27 21-32 mmol/L Blood Urea Nitrogen 121 *H 7-18 mg/dL Creatinine 3.6 H 0.5-1.0 mg/dL Glomerular Filtration Rate Calc 15 >90 mL/min Random Glucose 85 70-105 mg/dL Total Calcium 6.3 L 8.5-10.1 mg/dL Phosphorus Level 10.0 H 2.5-4.9 mg/dL Magnesium Level 2.20 1.80-2.40 mg/dL Total Bilirubin 0.3 0.2-1.0 mg/dL Aspartate Amino Transf (AST/SGOT) 64 H 10-37 U/L Alanine Aminotransferase (ALT/SGPT) 99 H 12-78 U/L Alkaline Phosphatase 118 50-136 U/L Total Protein 3.7 L 6.0-8.3 g/dL Albumin 1.4 L 3.5-5.0 g/dL DIAGNOSTICS / RADIOLOGY RESULTS: [ ] Signed PATIENT: RIO OSORIO MR#: [id number] : 1975 SEX: F AGE: 49 LOCATION: 2BH ORDER 1522 STATUS: ADM IN REPORT#: [id number] SERVICE 1517 REASON: Tension Pneumothorax s/p Chest Tube insertion ORDERING PHYSICIAN: MARGO LOGAN PROCEDURE: CXR1VW - CHEST 1VW CHEST 1VW REASON: Tension Pneumothorax s/p Chest Tube insertion COMPARISON: 07/03/2024 FINDINGS: Left chest tube has been inserted. There is partial expansion of the left lung. There is complete resolution of the mediastinal shift. Extensive infiltrate persists in the right lung. ET and NG tubes remain in place. There is a small amounts of simultaneous emphysema in the left chest wall. IMPRESSION: 1. Left chest tube placement, partial reexpansion of the left lung although there is a small pneumothorax remaining, there has been resolution of the mediastinal shift. DICTATED BY: LALO IBANEZ MD DATE: 07/03/24 1603 ELECTRONICALLY SIGNED BY: LALO IBANEZ MD DATE: 07/03/24 1606 PLAN Continue sedation with fentanyl, versed continue rocuronium drip to help with ventilator synchrony cessation. manage vent per abg maintain plateu pressure of < 30 as much possible chest tube placement to left side Continue steroids Lokelma tid for hyperkalemia Follow nephrology recommendations. ABX per ID Continue Atrovent q.4 hours. prn Panculture if febrile Son is POA Hold AC chemical PPX due to thrombocytopenia. NEURO: Minimize central acting medications as possible. Fall Precautions. Well lighted room through the day and minimize interruptions through the night to prevent acute delirium. PULMONARY: Supplemental 02 as needed Titrate Fio2 to keep Spo2 > or = 90% DuoNebs and CPT as needed IS hourly while awake for pulmonary hygiene Out of bed to chair as tolerated CARDIOVASCULAR: Follow hemodynamics. Titrate vasopressor to keep MAP >65 or systolic blood pressure >95mmHg Telemetry LINES: CVC RT IJ Arterial line ET tube' FC OG tube chest tube to left side to suction GI & NUTRITION: Continue nutritional support Aspirations precautions Prokinetic agents and laxatives as needed KIDNEYS & ELECTROLYTES: Strict monitoring of intake and output Daily weights Avoid nephrotoxic agents Monitor electrolytes and replace as needed Goal urine output of 30mL/hr or 0.5mL/kg/hr ENDOCRINE: Maintain blood glucose between 100-180 at all times. Insulin sliding scale for blood glucose management INFECTIOUS DISEASE: Trend temperature. Clarke-culture if febrile. Sputum culture from 05/23/24 positive for MRSA, Betty albicans Pneumocystis carinii antigen positive Panculture: 06/02/24 Blood cultures Urine cultures Respiratory culture Antibiotics: Fluconazole anciclovir HEMATOLOGY & COAGULATION: Monitor H&H. Keep Hgb > 7 Transfuse 1 unit of PRBC for Hgb < 7 Transfuse 1 pack of platelets of platelets < 20, 000 Watch for any signs and symptoms of bleeding SKIN: Pressure ulcer prevention per facility protocol Rehab: PT/OT Prophylaxis: GI: Pepcid DVT: SCD hold AC Code Status: DNR Disposition: Continues in ICU Other: Critical care time I personally spent 45 minutes of critical care time in treatment of this patient. This includes patient management, time at bedside, time reviewing tests, labs, appropriate images and studies, documentation, and patient care coordination. This time excludes separately billable procedures. MARGO LOGAN PSYCHOMETRICIAN Jul 03, 2024 08:53
[2024-07-03] MEDS ORDERED: PHARMACY COMMUNICATION MISC SCH (09:00)
[2024-07-03] MEDS: NA ZIRCON CYCLOSIL(LOKELMA 10GM) PO ONE (09:05)
[2024-07-03 09:07] LABS: ABG BASE EXCESS -17.9 mmol/L (-2.0-3.0); ABG HCO3 15.8 mmol/L (21.0-28.0); ABG OXYGEN SATURATION 54.7 % (94.0-98.0); ABG PCO2 85 mmHg (32-45); ABG PH 6.886 (7.350-7.450); CARBON MONOXIDE 2.6 % (0.5-1.5); DEVICE COMMENT ALINE; PO2, ARTERIAL BG < 45.0 mmHg (83.0-108.0); VENT MODE, BG PC 30 NELLY NP (ROOM AIR)
[2024-07-03] MEDS: BIKTARVY PO SCH (09:08)
[2024-07-03] MEDS: NOREPINEPHRIN 4MG/NS 250ML 250 ML IV ONE (10:50)
[2024-07-03] MEDS: SODIUM BICARB 50MEQ 50ML VIAL IV ONE ×2 (10:54→17:13)
[2024-07-03] MEDS: NOREPINEPHRINE BITARTRATE 32 MG in 0.9% NACL 250ML 250 ML IV SCH (11:20)
--- NOTE | 2024-07-03 11:46 | PN ---
NEPHROLOGY PROGRESS NOTE Date/Time Patient Seen: Jul 03, 2024 Reason for Consultation: 11:45 SUBJECTIVE: This is a 49-year-old female with a past medical history of newly diagnosed HIV with AIDS. She presented to the emergency room with complaints of shortness of breath She was admitted under diagnosis of acute hypoxemic respiratory failure and pneumonia. She has had a prolonged hospital stay. She was seen in the ICU, intubated, sedated, and on mechanical ventilation. Continues to require vasopressors to maintain blood pressure. She continues on Biktarvy, antivirals and antibiotics as per Infectious Disease. She was noted to have elevated BUN/creatinine We has been consulted for renal failure. Renal function continues to worsen Electrolytes show potassium of 5.6 mmol/L, she received Lokelma. Urine output continues to be marginal. Abdominal ultrasound showed no right hydronephrosis. She continues to be intubated and sedated Continues to require vasopressors to maintain blood pressure. Family at the bedside Code status has been changed to DNR Condition is critical and guarded. REVIEW OF SYSTEMS: Difficult to obtain given status of the patient who remains intubated mechanically ventilated PHYSICAL EXAM: General: acutely ill, sedated, intubated, and mechanically ventilated HEENT: head is atraumatic, pupils equal and reactive, ET tube in place Neck: supple, no masses, no lymphadenopathy, no thyromegaly, no JVD Lungs: decreased breath sounds bilaterally, symmetrical chest movement Cardio: regular rate, S1 and S2 normal, no rub or gallop Abdomen: soft, non tender, no distension, no organomegaly Extremities: trace edema bilateral lower extremities, no cyanosis or clubbing Skin: no rashes or suspicious lesions Neuro: sedated LABORATORY: [ ] Hematology Labs: Test 07/03/24 03:46 Range/Units White Blood Count 7.5 # 4.8-10.8 K/uL Red Blood Count 2.57 L 4.00-5.50 MIL/uL Hemoglobin 8.5 L 12.0-16.0 g/dL Hematocrit 26.9 L 36-48 % Mean Corpuscular Volume 104.7 H 79-99 fL Mean Corpuscular Hemoglobin 33.1 H 27.0-33.0 pg Mean Corpuscular Hemoglobin Concent 31.6 L 32.0-36.0 g/dL Red Cell Distribution Width 14.6 11.0-15.5 % Platelet Count 111 #L 130-400 K/uL Mean Platelet Volume 10.8 H 7.5-10.5 fL Immature Granulocyte % (Auto) 1.3 H 0-1 % Neutrophils (%) (Auto) 97.1 H 40.0-77.0 % Lymphocytes (%) (Auto) 1.2 L 21.0-51.0 % Monocytes (%) (Auto) 0.3 L 3.0-13.0 % Eosinophils (%) (Auto) 0.0 0.0-8.0 % Basophils (%) (Auto) 0.1 0.0-5.0 % Neutrophils # (Auto) 7.3 1.8-7.7 K/uL Lymphocytes # (Auto) 0.1 L 1.0-4.8 K/uL Monocytes # (Auto) 0.0 L 0.1-1.0 K/uL Eosinophils # (Auto) 0.00 0.00-0.70 K/uL Basophils # (Auto) 0.01 0.00-0.20 K/uL Absolute Immature Granulocyte (auto 0.10 0-1 K/uL Nucleated Red Blood Cells 0.5 H 0.0-0.19 % Chemistry Labs: Test 07/03/24 06:30 07/03/24 03:46 07/02/24 03:56 Range/Units Whole Blood Glucose 108 # 70-110 MG/DL Sodium Level 141 136-145 mmol/L Potassium Level 5.6 H 3.5-5.1 mmol/L Chloride Level 106 101-111 mmol/L Carbon Dioxide Level 27 21-32 mmol/L Blood Urea Nitrogen 121 *H 7-18 mg/dL Creatinine 3.6 H 0.5-1.0 mg/dL Glomerular Filtration Rate Calc 15 >90 mL/min Random Glucose 85 70-105 mg/dL Total Calcium 6.3 L 8.5-10.1 mg/dL Phosphorus Level 10.0 H 2.5-4.9 mg/dL Magnesium Level 2.20 1.80-2.40 mg/dL Total Bilirubin 0.3 0.2-1.0 mg/dL Aspartate Amino Transf (AST/SGOT) 64 H 10-37 U/L Alanine Aminotransferase (ALT/SGPT) 99 H 12-78 U/L Alkaline Phosphatase 118 50-136 U/L Total Protein 3.7 L 6.0-8.3 g/dL Albumin 1.4 L 3.5-5.0 g/dL DIAGNOSTICS / RADIOLOGY: REASON: hypoxic resp failure ORDERING PHYSICIAN: MARGO LOGAN PROCEDURE: CXR1VW - CHEST 1VW CHEST 1VW REASON: hypoxic resp failure COMPARISON: 06/30/2024 FINDINGS: Heart size is stable. There are decreasing bilateral infiltrates. There is an NG tube passing into the stomach. The ET tube tip is now 2 cm above midclavicular point. There is a left-sided PICC line with tip in the superior vena cava. IMPRESSION: 1. ET tube tip 2 cm above the midclavicular point. 2. Diffuse bilateral infiltrates which have decreased since prior exam. DICTATED BY: LALO IBANEZ MD DATE: 07/02/24 1210 REASON: Hypoxic respiratory failure ORDERING PHYSICIAN: MARGO LOGAN PROCEDURE: CXR1VW - CHEST 1VW Exam Type: CHEST 1VW Clinical Information: Hypoxic respiratory failure Comparison: None Findings: Pulmonary pattern is as before. No worrisome interval changes have taken place. Impression: Stable exam. DICTATED BY: FITZ NICOLAS MD DATE: 06/30/24 0900 REASON: Hypoxic respiratory failure ORDERING PHYSICIAN: MARGO LOGAN PROCEDURE: CXR1VW - CHEST 1VW Exam Type: CHEST 1VW Clinical Information: Hypoxic respiratory failure Comparison: June 28, 2024 Findings: Pulmonary pattern is as before. No worrisome interval changes have taken place. Impression: Stable exam. DICTATED BY: FITZ NICOLAS MD DATE: 06/29/24 0852 REASON: Hypoxic respiratory failure ORDERING PHYSICIAN: MARGO LOGAN PROCEDURE: CXR1VW - CHEST 1VW CHEST 1VW HISTORY: Hypoxic respiratory failure COMPARISON: 06/27/2024 FINDINGS: A frontal projection of the chest was obtained. There are bilateral pulmonary infiltrates suggestive of pulmonary vascular congestion with possible superimposed pneumonitis. The heart is borderline enlarged. All the lines and tubes are again seen in place. No evidence of aortic calcification is seen. IMPRESSION: 1. Bilateral pulmonary infiltrates are seen suggestive of pulmonary vascular congestion with possible superimposed pneumonitis. DICTATED BY: TAMARA NGUYEN MD DATE: 06/28/24 1252 REASON: Hypoxic respiratory failure ORDERING PHYSICIAN: MARGO LOGAN PROCEDURE: CXR1VW - CHEST 1VW CHEST 1VW HISTORY: Respiratory failure COMPARISON: 06/26/2024 FINDINGS: A frontal projection of the chest was obtained. There are bilateral pulmonary infiltrates suggestive of pulmonary vascular congestion with possible superimposed pneumonitis. The heart is borderline enlarged. All the lines and tubes are again seen in place. No evidence of aortic calcification is seen. IMPRESSION: 1. Bilateral pulmonary infiltrates are seen suggestive of pulmonary vascular congestion with possible superimposed pneumonitis. Mild interval worsening is seen. DICTATED BY: TAMARA NGUYEN MD DATE: 06/27/24 1146 REASON: TRANSAMINITS ORDERING PHYSICIAN: MARGO LOGAN PROCEDURE: ABDRUQLTD - US ABDOMINAL RUQ\LTD US ABDOMINAL RUQ\E\LTD HISTORY: Elevated liver enzymes COMPARISON: None TECHNIQUE: Right upper quadrant abdominal ultrasound study was performed. FINDINGS: Liver measures 16.2 cm. Sludge material is seen throughout the gallbladder. There is small ascites. The visualized portion of the pancreas is within normal limits. Liver is echogenic consistent with liver parenchymal disease. No gallstone is seen. Common duct measures 3 mm. No evidence of gallbladder wall thickening is seen. Right kidney measures 10.5 x 5.2 x 4.3 cm. No hydronephrosis is seen of the right kidney. IMPRESSION: 1. No gallstones or ductal dilatation is seen. Sludge material in the gallbladder. Ascites. Limited study due to patient's underlying condition. 2. No hydronephrosis is seen. DICTATED BY: TAMARA NGUYEN MD DATE: 06/26/24 2244 REASON: Elevated DDIMER ORDERING PHYSICIAN: KIANA MAGUIRE PROCEDURE: VENOUS FAY - US VENOUS DOPPLER BILATERAL US VENOUS DOPPLER BILATERAL REASON: Elevated DDIMER COMPARISON: None Technique: Bilateral venous doppler ultrasound was performed with spectral analysis and color flow imaging technique. FINDINGS: There is a normal appearance of the common femoral, deep femoral, the profunda femoris and popliteal veins. Proximal calf veins appear normal as well. There is normal response to compression and augmentation. There is no evidence of deep venous thrombosis. IMPRESSION: Normal bilateral lower extremity venous Doppler ultrasound. DICTATED BY: LALO IBANEZ MD DATE: 06/11/24 0912 REASON: assess EF ORDERING PHYSICIAN: MARGO LOGAN PROCEDURE: ECHO CMP - ECHO 2-D COMPLETE APPROVED REPORT EXAM: Two-dimensional and M-mode echocardiogram with Doppler and color Doppler. INDICATION ICD: Assess left ventricular function. 2D Dimensions RVDd 3.9 cm LVEF(%) 69.9 (>50%) LVED Vol(simp.) 97.0 mL IVSd 1.3 (0.7-1.1cm) FS(%) 39 % LVES Vol(simp.) 44.0 mL LVDd 4.1 (3.8-5.6cm) LA (2D) 2.9 (1.6-4.0cm) LVEF(%, simp.) 55 % PWd 1.3 (0.7-1.1cm) Ao Root(2D) 2.7 (2.0-3.7cm) LA ESV INDEX (4CH) 18.80 mL/m2 IVSs 1.7 cm LVOT diam 2.0 (1.8-2.4cm) LA ESV INDEX (2CH) 26.30 mL/m2 LVDs 2.5 (2.5-4.0cm) IVC diam 1.4 cm LA ESV INDEX (BP) 22.70 mL/m2 PWs 1.6 cm M-Mode Dimensions EPSS 0.3 cm LA (MM) 2.6 (1.6-4.0cm) Ao Root(MM) 2.7 (2.0-3.7cm) Aortic Valve AoV VTI 0.2 m Ao Mean GR 4.0 mmHg LVOT VTI 0.20 m SANDRA (VMAX) 2.8 cm2 SANDRA (VTI) 2.8 cm2 Mitral Valve MV E Vmax 55.8 cm/s DECEL Time 236 ms MV A Vmax 64.7 cm/s P 1/2 T 42 ms E/A ratio 0.9 MVA (PHT) 5.3 cm2 TDI E/E' Medial 10.5 E/E' Lateral 5.8 Medial E' Peak V 5.30 cm/s Lateral E' Peak V 9.70 cm/s Tricuspid Valve RAP (EST) 3 mmHg RVSP 3.0 mmHg Left Ventricle The left ventricle is normal size. Mild concentric left ventricular hypertrophy. The LVEF is > 55%. The left ventricular diastolic function is normal. Right Ventricle The right ventricle is normal size. The right ventricular systolic function is normal. Atria The left atrium size is normal. The right atrium size is normal. Aortic Valve The aortic valve is normal in structure. No aortic regurgitation is present. T here is no aortic valvular stenosis. Mitral Valve The mitral valve is normal in structure. There is no mitral valve regurgitation noted. There is no mitral valve stenosis. Tricuspid Valve The tricuspid valve is normal in structure. There is no tricuspid valve regurgitation noted. Pulmonic Valve Pulmonic valve is not well visualized. There is no pulmonic valvular regurgitation. Great Vessels The aortic root is normal in size. The IVC is normal in size and collapses >50% with inspiration. Pericardium There is no pericardial effusion. Other Information Quality : Technically difficult due to body habitus Rhythm : NSR Conclusion The LVEF is > 55%. Mild concentric left ventricular hypertrophy. The left ventricular diastolic function is normal. DICTATED BY: FERMÍN GALLOWAY DO DATE: 05/30/24 0853 REASON: suspected PE ORDERING PHYSICIAN: DAYRON RUBIN NP PROCEDURE: CHES PE - CT CHEST PE PROTOCOL WWO CONT CT CHEST PE PROTOCOL WWO CONT HISTORY: Suspected pulmonary embolism COMPARISON: 05/21/2019 TECHNIQUE: CT angiography of the chest was performed. The study was performed using angiographic technique with maximum intensity projection reconstruction images. Patient was given 100 cc of Omnipaque through intravenous route. FINDINGS: No CT evidence of filling defect is seen to suggest pulmonary embolus. No CT evidence of aortic dissection is seen. There are bilateral pulmonary infiltrates with subsegmental atelectasis. Fatty changes of the liver are noted. No CT evidence of pleural effusion or pericardial effusion is seen. The heart is enlarged. No evidence of adrenal mass is seen. Degenerative changes of the spine are noted. IMPRESSION: 1. No CT evidence of acute pulmonary embolus is seen. Bilateral pulmonary infiltrates with subsegmental atelectasis. Fatty changes of liver are noted. CT was performed with one or more following dose reduction techniques: automated exposure control, adjustment of the mA and kv according to patient's size, or use of a iterative reconstruction technique. DICTATED BY: TAMARA NGUYEN MD DATE: 05/24/24 1809 REASON: sob ORDERING PHYSICIAN: SHANTEL VICTORIA MD PROCEDURE: CXR1VW - CHEST 1VW PORTABLE CHEST RADIOGRAPH INDICATION: sob COMPARISON: 05/21/2024 CTA chest FINDINGS: Heart size is normal. The pulmonary vascularity and paul appear normal. Left lower lung greater than right lung base opacities in the right hemidiaphragm is elevated. No significant pleural effusion noted. No pneumothorax detected. IMPRESSION: Left lower lung pneumonia and minimal right lung base atelectasis. 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 We have reviewed previous records in detail Any form of renal replacement therapy remains a high-risk procedure due to underlying condition At this time there is no emergent need for renal replacement therapy Follow ID recommendations Hold oral medications 2 hours before and 2 hours after Lokelma administration as absorption may be decreased. We will continue to monitor the patient closely Please renally dose antibiotics. Require close monitoring of renal function and electrolytes Order CBC, CMP,and electrolytes in am Continue with IV pressors Continue mechanical ventilation and sedation. Monitor blood pressure adjust medication doses as needed Avoid hypotensive episodes May use Dilaudid 0.5 mg IV every 6 hours as needed for severe pain Monitor blood sugars Strict intake, output, and daily weight should be monitored Please renally adjust medications Avoid nephrotoxic and nonsteroidal drugs Avoid contrast if possible Will continue to monitor renal function, anemia, electrolytes Treatment plan discussed with patient Questions were answered We have discussed with the other team physicians in detail about the care plan We will continue to monitor the patient closely Total critical care time spent with patient, nursing staff, critical care team over 35 minutes ATTESTATION BY PHYSICIAN I have seen and examined the patient. I reviewed the documentation, medical decision making, and treatment plan as noted by the mid-level provider above. I agree with the findings and plan of care. LEON KOO MD, [facility] Jul 03, 2024 11:46 LEON KOO MD Jul 03, 2024 22:29
--- NOTE | 2024-07-03 12:05 | PN ---
[facility] PROGRESS NOTE Date of Service: Jul 03, 2024 Time of Service: 12:04 SUBJECTIVE: [ ] Ms. Abdullahi is a 49-year-old female that was seen and examined today on 05/23/2024. Patient is a good historian and personal health. Patient's son Dagoberto Salcido is at bedside. Patient states that she came to the emergency department with a chief complaint of shortness of breath. Onset was two weeks ago. Location is to lungs. Duration is on and off. Character is described as "easily running out of air." Initially shortness and breath was only aggravated with climbing one or two flights of stairs but symptoms have progressively worsened and patient becomes short of breath even standing or walking short distances. There was no alleviating factors however previously symptoms were being controlled with daily morning albuterol nebulizer treatments. Patient denies any associated chest pain or dizziness. Patient reports an episode of COVID in December 2023. emergency department CBC unremarkable, chemistry unremarkable, urinalysis unremarkable, influenza screen negative, COVID negative, blood gas shows PO2 less than 45. Chest x-ray shows left lower lung pneumonia and minimal right lung base atelectasis. Upon arrival to the emergency department patient was placed on a BiPAP due to respiratory distress. 05/24/2024-patient was seen and examined at the bedside, still on BiPAP. Patient is able to speak, and says she feels much better than before. Patient says after COVID in December she developed severe bronchitis and she was on Solu-Medrol and albuterol, which did not help her much and later she had high fevers and shortness of breath which is when she came to the ED.Vitals afebrile pulse 76, RR 38 tachypneic , blood pressure 115/68, pulse oxygen 99 on BiPAP flow of 60. On ABG pH 7.47, pCO2 29, PO2 109.4, oxygen saturation 98.3. [id number] potassium 4.1 BUN15 creatinine 0.5 GFR 114. We will closely monitor the patient. [employer] consult noted waiting on the recommendation 05/25/24 patient was seen and examined and case discussed with RN and family by the bedside. She was breathing better today. She has been on BiPAP all night but now he was on 100% non-rebreather with further efforts to continue to wean the oxygen requirements down. 05/26/24 patient was seen and examined and case discussed with the RN. No acute events noted overnight. Appreciate pulmonology and ID input continue IV antibiotics and fluconazole. 05/27/24 patient is seen and examined at bedside, acute events overnight, case discussed with the RN, BP 131/64, afebrile, saturating 96-97% via Ventimask, FiO2 40%. The patient admits cough productive of clear phlegm. Serology tests reviewed, HIV preliminary positive, discussed with the patient. 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 We will continue the patient on IV antibiotics, continue fluconazole, continue to follow Pulmonary and ID input and recommendations. After provided in the preliminary results of HIV test, she denies any suicidal or homicidal ideations. 05/28 patient has been seen and examined, no acute events overnight, case discuss ed with the RN, during my visit patient is sitting comfortably in the chair, hemodynamically stable, off Ventimask, currently on 10 L via nasal cannula, saturating 98%, tolerated BiPAP overnight. she feels better, less shortness a breath, still admits cough productive of yellow phlegm. No chest pain. Getting IV antibiotics during my visit. HIV P24 antigen, nonreactive. We will continue to follow Pulmonary and Infectious Disease input and recommendations. 05/29 patient has been seen and examined, no acute events overnight, case discussed with the RN, during my visit patient is sitting comfortably in the chair, hemodynamically stable, remains on 10 L via nasal cannula, saturating 98%, still admits cough productive of yellow phlegm. No chest pain. Getting IV antibiotics during my visit. HIV P24 antigen, nonreactive. Pending CD4 cell count. We will continue to follow Pulmonary and Infectious Disease input and recommendations. 05/30 the patient has been seen and examined, no acute events overnight, BP 11 4/66, during my visit she is on Ventimask, saturating 95%, FiO2 60%. Without the Ventimask the patient desaturates to the low 70s. Patient tolerating BiPAP during the night. Still admits cough productive of thick yellow phlegm, no chest pain. Results of CD4 cell count reviewed, discussed with the patient. We will continue broad-spectrum IV antibiotics. Continue to follow Pulmonary and Infectious Disease input and recommendations. 05/31 the patient has been seen and examined, upgraded to the ICU, during my visit she is sitting in the chair, BP 113/72, heart rate of 109, she is on Oxymizer, 30 L, FiO2 100%. She is alert oriented x3, still admits cough productive of thick yellow phlegm, no chest pain. Hemoglobin 12.9, hematocrit 36.6, WBC 14.6. ABG with pH 7.4, pCO2 40, PO2. Chest x-ray shows left lower lobe infiltrate consistent with pneumonia. She is getting IV antibiotics during my visit. Patient will remain in the ICU, continue to follow critical Care as well as infectious disease input and recommendations. 06/01 patient is seen and examined, sitting comfortable in chair, awake, following commands, remains on high-flow oxygen, FiO2 70%, 30 L, BP 117/67, heart rate of 78, respiratory rate of 30-36, saturating 100%, CBC with a hemoglobin 13.6, hematocrit 38.9, WBC 12.4. Platelet count of 341. Chest x-ray showing persistent left lung infiltrate, cardiac size and mediastinum unremarkable. The bony structures are within the normal limits. Patient getting IV antibiotics during my visit. Patient to continue with the high-dose steroids. Serology test positive for Pneumocystis sandra. Patient on Bactrim two tablets p.o. t.i.d.. Continue also doxycycline and cefepime IV. Continue to follow infectious disease input and recommendation. Continue to follow Pulmonary input and recommendations. 06/02 patient is seen and examined at bedside, currently in prone position, alert oriented x3. CPT started last night, she has started having more loose phlegm expectorated. BP 114/74, tachycardic 114, saturating 95%, high-flow nasal cannula, 30 L, FiO2 80%. CBC with a hemoglobin 16.9, hemoglobin 14 0, hematocrit 39.8, platelet count 347. Chest x-ray shows persistent left lung infiltrate. 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 Serology test for toxoplasma currently pending. Patient on IV antibiotics as well as high-dose steroids. Continue to follow infectious Disease and Pulmonary input and recommendations. 06/03 patient seen at bedside, no acute events overnight. She continues with respiratory distress, with increasing oxygen requirements. Critical Care has discussed a possible need for intubation if she does not improve. She has been started on steroids due to underlying PCP pneumonia. WBC improved from 16.9 down to 13.5, sodium stable at 132, same as yesterday, lactic acid downtrending from 4.1 down to 3.2, remainder of her labs are relatively unremarkable. 06/04 patient seen at bedside, no acute events overnight. She remains on high- flow nasal cannula, mildly tachycardic. WBC elevated at 13.3, sodium decreased from 132 down to 129, remainder of her labs are relatively unremarkable. Continue to wean supplemental oxygen. Further care per critical Care 06/05 patient seen at bedside, no acute events overnight. She remains on high- flow nasal cannula with BiPAP overnight and is still tachycardic. Heart rate ranging from 104 up to 113, WBC improved from 13.3 down to 11.1, sodium decreased from 120 down to 126, remainder of her labs are relatively unremarkable. We will continue to wean oxygen as able. 06/06 Patient seen at bedside, no acute events overnight. She remains on high- flow nasal cannula with BiPAP overnight and is still tachycardic. Heart rate ranging from 104 up to 122, WBC improved from 11.1 down to 10.6, sodium improved from 126 up to 129, remainder of her labs are relatively unremarkable. We will continue to wean oxygen as able. 06/07 patient seen at bedside, no acute events overnight. She is still on high- flow nasal cannula, RT advised to wean oxygen, currently saturating 100% on 30L. She is tachycardic, sodium decreased from 129 down to 123, likely secondary to Bactrim. Patient is asymptomatic, will continue with bactrim, if sodium cont inues to decrease consider a holiday from bactrim. 06/08 patient seen at bedside, no acute events overnight. She is still on high- flow nasal cannula, RT advised to wean oxygen, currently saturating 100% on 30L. She is tachycardic, sodium stable at 123, same as yesterday. Pending improvement in respiratory status 06/09 patient seen at bedside, he remains on high-flow nasal cannula, we will continue to wean as able, appreciate pulmonology assistance, tachycardic with heart rate ranging from 123 up to 130. She is still having low-grade fevers at 100.8. Sodium increased from 123 up to 130, remainder of her labs are relatively unremarkable. 06/10 patient is seen and examined at bedside, remains on high-flow oxygen, she feels mildly anxious, no chest pain. Still with a cough productive of white phlegm. Still tachycardic, heart rate 117-122. Patient is still spiking low- grade fever. Hemoglobin 10.9, hematocrit 30.5. Sodium remained low at 128, BUN and creatinine of 16 and 0.4. 06/11 patient is seen and examined at bedside, patient now on AVAPS, FiO2 100%, patient became restless last night, she had to be started on Precedex. During my visit she remains alert oriented x3, no chest pain. BP 120/48, she is saturating 100%. Hemoglobin 10 point, hematocrit 31.3. ABG shows persistent hypoxemia, with a PO2 of 69.4. Chest x-ray shows extensive infiltrates on the left which is stable to somewhat increased, there has been interval development of perihilar infiltrate on the right. Normal bilateral lower extremity venous Doppler ultrasound. Continue the patient on prednisone 20 mg p.o. daily, continue Bactrim two tablets p.o. t.i.d. as well as fluconazole 100 mg p.o. daily. 06/12 patient is seen and examined at bedside, intubated, on mechanical ventilation, per discussion with the RN, patient was in respiratory distress yesterday, decision made to intubate the patient. During my visit the patient is midazolam, fentanyl, patient paralyzed, also on Nimbex. She is in a prone position. On pressor support with phenylephrine. Also on Precedex. She is also on hydrocortisone 100 mg IV q.8 hours. Son at bedside, updated. ABG shows pH 7.38, pCO2 47, PO2 122, bicarb of 27.7. 06/13 patient is seen and examined at bedside, remains intubated, on mechanical ventilation, remains on midazolam, fentanyl, patient paralyzed, also on Nimbex. She is in a prone position. On BP pressor support with phenylephrine. Patient is peep of seven. ABG pH 7.34, PO2 72.3. Chest x-ray reviewed, increasing bilateral infiltrates, increasing pneumomediastinum. 06/14 patient is seen and examined at bedside, remains intubated, on mechanical ventilation, prone position, remains on midazolam, fentanyl, patient paralyzed, also on Nimbex. She is in a prone position. Off pressors. Patient is peep of seven. ABG pH 7.34, PO2 72.3. Chest x-ray shows extensive bilateral infiltrates unchanged, no pneumothorax. 06/15 patient is seen and examined at bedside, remains intubated, on mechanical ventilation, prone position, remains paralyzed, on Nimbex. Off pressors. Patient is peep of 10. ABG pH 7.34, PO2 72.3. Chest x-ray shows extensive bilateral infiltrates unchanged, no pneumothorax. Overall condition remains unchanged. No family at bedside. 06/16 patient is seen and examined at bedside, remains intubated, on mechanical ventilation, discussed with the RN, the patient has been placed on supine position. Patient remains on pressor support. Remains on sedation with midazolam and fentanyl BP 114/60, afebrile saturating 96% FiO2 100%, peep of 8. ABG today with pCO2 63, PO2 91.5. Chest x-ray with severe consultation both lungs, unchanged, interval development of pneumomediastinum, moderate to severe. Continue Solu-Medrol 80 mg IV q.8 hours, continue broad-spectrum antibiotics with meropenem 1 g IV q.8 hours, the patient remains on Bactrim. Continue ganciclovir. 06/17 patient seen at bedside, no acute events overnight. She remains intubated, paralyzed on FiO2 of 100% and PEEP of eight. Continue to try to wean towards extubation. Chest x-ray appears mildly improved from yesterday. She remains supine. Hemoglobin improved from 8.4 up to 8.6, platelets decreased from 121 d own to 112, CO2 elevated at 41, same as yesterday, remainder of her labs are relatively unremarkable. Patient is still critical with poor prognosis continue further care per critical care team. 06/18 patient seen at bedside, no acute events overnight. She remains intubated and sedated, critical care weaning patient off paralyzing agents. She is still on FiO2 of 100% with PEEP of eight, PO2 on ABG 70.8 down from 80.5 yesterday demonstrating a worsening and her oxygenation within her blood at the same venti lator settings. PCO2 increased from 70 up to 75. Hemoglobin improved from 8.6 up to 9.0, platelets improved from 112 up to 127, CO2 increased from 41 up to 45, remainder of her labs are relatively unremarkable. 06/19 patient seen at bedside, no acute events overnight. She remains intubated and sedated, critical Care to continue trying to wean to extubation. Continue current care further recommendations per critical Care 2 patient is seen and examined at bedside, no acute events overnight, she remains intubated, on mechanical ventilation, off vasopressors, sedated with fentanyl and Versed, the patient on peep of 8, saturating 97%. 06/21 patient seen at bedside, no acute events overnight. She remains intubated, paralyzed on FiO2 of 100% and PEEP of eight. Continue to try to wean towards extubation. She remains supine. Chest x-ray stable. Hemoglobin at 8.6, hematocrit 28.4. remainder of her labs are relatively unremarkable. Patient is still critical with poor prognosis continue further care per critical care team. 06/22 patient seen at bedside, no acute events overnight. She remains intubated, paralyzed on FiO2 of 100% and PEEP of eight. Continue to try to wean towards extubation. She remains supine. Chest x-ray stable. Patient is still criti vito with poor prognosis continue further care per critical care team. 06/23 patient seen at bedside, no acute events overnight. She remains intubated, on FiO2 of 90% and PEEP of eight, ABG showing improved oxygenation will wean down to 80%. Continue to try to wean towards extubation. She remains supine. Chest x-ray improved from previous. Patient is still critical with poor p rognosis continue further care per critical care team. 06/24 patient seen at bedside, she had several desaturation episodes overnight however she is currently saturating well, ABG looks good. We will wean her FiO2 to 80% and continue to monitor. Continue to try and wean towards extubation. Hemoglobin decreased from 10.4 down to 9.0, platelets decreased from 125 down to 110, potassium decreased from 5.4 down to 5.2, CO2 increased from 43 up to 49, remainder of her labs are relatively unremarkable. 06/25 patient seen at bedside, she had several desaturation episodes overnight however she is currently saturating well, ABG pending this am. Continue to try and wean FiO2 and wean towards extubation. Hemoglobin decreased from 9.0 down to 8.5, platelets decreased from 110 down to 93, potassium decreased from 5.2 down to 4.9, CO2 improved from 49 down to 45, remainder of her labs are rel atively unremarkable. 06/26 patient seen at bedside, no acute events overnight. She continues to desaturate while retaining CO2, we will continue to try and wean as able. Patient was started on Biktarvy, WBC has increased up to 15.0. She is now tachycardic with heart rate ranging from 102 up to 122. Continue care per critical Care and Infectious Disease. Patient is very ill with a poor prognosis. 06/27 patient is seen and examined, remains intubated, on mechanical ventilation, sedated with fentanyl, rocuronium, Versed. Remains on vasopressors with Mario- Synephrine. BP 114/57. ABG with pH of 7.35, pCO2 63, PO2 65. Chest x-ray reviewed, persistent bilateral pulmonary infiltrates suggestive of pulmonary vascular congestion with possible superimposed pneumonitis, mild interval worsening seen. 06/28 patient is seen and examined at bedside, case discussed with the RN, patient is off vasopressors since yesterday, BP 111/59, still intubated, on mechanical ventilation, sedated. FiO2 100%, peep of eight. Chest x-ray still with persistent bilateral pulmonary infiltrates suggestive of pulmonary vascular congestion with possible superimposed pneumonitis. Patient getting broad- spectrum IV antibiotics at the time of my visit. Creatinine 2.2. Son at bedside, updated. 06/29 patient is seen and examined at bedside, case discussed with the RN, during my visit the patient remains in the intensive care unit, intubated, mechanical ventilation. She is still requiring Levophed for blood pressure support, remains on Precedex, fentanyl, Versed and rocuronium. Chest x-ray with pulmonary pattern as before, worrisome interval change. Creatinine 2.7. ABG with pH 7.27, pCO2 60, PO2 471. 06/30 seen and examined at bedside, remains intubated, on mechanical ventilation, still requiring Levophed for blood pressure support, sedated with Versed, Precedex, rocuronium. Getting broad-spectrum IV antibiotics at the time of my visit. Patient getting nutritional support via OG tube. 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 Chest x-ray with pulmonary patter stable. 2/17 Pt seen at bedside, is intubated and sedated at FiO2 100%. Still on low dose of pressors. Renal function continues to slowly deteriorate, consider holding nephrotoxic medications such as Bactrim, will defer to ID and critical care. She has very poor prognosis at this point, patient's POA continues to request aggressive medical intervention. Will continue with current medications, further care per critical care. 07/02 patient seen at bedside, remains intubated sedated at FiO2 100%. She continues on pressors. Renal function continues to deteriorate with upward trending BUN and creatinine and minimal urine output. Had discussion with family reporting that given the long duration of treatment with no improvement she is likely not to survive this hospitalization. Recommended family discuss options regarding withdrawal of care and end of life decisions, we will discuss once again tomorrow morning during rounds. We will continue with maximum medical interventions at this time. 07/03 patient seen at bedside, no acute events overnight, she remains intubated and sedated with FiO2 at 100%. She continues on pressors, renal function stable today creatinine plateaued at 3.5, we will continue to monitor. Hemoglobin i mproved from 7.8 up to 8.5, potassium elevated at 5.6, same as yesterday, remainder of her labs are relatively unremarkable. REVIEW OF SYSTEMS 12 point review of systems negative unless noted in HPI PHYSICAL EXAM GENERAL APPEARANCE: Patient intubated, on mechanical ventilation. NEUROLOGICAL: Cranial nerves II-XII grossly intact. Motor is 5/5 in bilateral upper and lower extremities proximal to distal. No sensory deficits. HEENT: Face is symmetric. Pupils are equal and reactive. Extraocular movements are intact. NECK: Supple. No JVD. No thyromegaly. No submental, submandibular, pre-/postauricular, occipital or supraclavicular lymphadenopathy. CHEST: Normal chest expansion. No Telemetry. LUNGS: Bilateral rhonchi, no expiratory wheezing CARDIOVASCULAR: Regular. S1 and S2 normal. No appreciable rubs, murmurs or gallops. ABDOMEN: Soft, nontender, and nondistended. There is no rebound, voluntary guarding, or rigidity. : Deferred. No Souza. EXTREMITIES: Non-edematous and not cyanotic. No clubbing. Good capillary refill. SKIN: No skin breakdown. Vital Signs (last 8hr) Date Time Temp Pulse Resp B/P (MAP) Pulse Ox O2 Delivery O2 Flow Rate FiO2 07/03/24 11:43 86 100 07/03/24 11:20 80/50 07/03/24 11:15 86 54 68/42 (51) 71 07/03/24 11:00 103 55 94/53 (67) 71 97/63 (74) 07/03/24 09:33 103 100 07/03/24 07:03 86/51 07/03/24 06:40 60 100 07/03/24 04:42 60 100 LABS: Laboratory: Test 07/03/24 09:05 07/03/24 06:30 07/03/24 03:46 07/02/24 03:56 Range/Units Blood Gas Specimen Type Arterial Arterial Blood pH 6.886 *L 7.350-7.450 Arterial Blood Partial Pressure CO2 85 *H 32-45 mmHg Arterial Blood Partial Pressure O2 < 45.0 *L 83.0-108.0 mmHg Arterial Blood HCO3 15.8 L 21.0-28.0 mmol/L Arterial Blood Oxygen Saturation 54.7 L 94.0-98.0 % Arterial Blood Base Excess -17.9 L -2.0-3.0 mmol/L Hemoglobin (Blood Gas) 11.2 L 12.0-16.0 g/dL Sodium (Blood Gas) 139 136-145 MMOL/L Bedside Potassium (Blood Gas) 5.7 H 3.4-4.5 MMOL/L Bedside Chloride (Blood Gas) 106 98-107 MMOL/L Bedside Glucose (Blood Gas) 99 H 65-95 MG/DL Bedside Ionized Calcium (Blood Gas) 1.00 L 1.15-1.33 MMOL/L Bedside Lactic Acid (Blood Gas) 3.64 *H 0.36-0.75 MMOL/L Blood Gas Temperature 37.0 35.5-37.0 CELSIUS Blood Gas Respiration Rate 36.0 min. Blood Gas Vent Mode PC 30 [employer] ROOM AIR FiO2 100.0 % Blood Gas PEEP 10 cm H2O Blood Gas Specimen Comment WENDY Whole Blood Glucose 108 # 70-110 MG/DL White Blood Count 7.5 # 4.8-10.8 K/uL Red Blood Count 2.57 L 4.00-5.50 MIL/uL Hemoglobin 8.5 L 12.0-16.0 g/dL Hematocrit 26.9 L 36-48 % Mean Corpuscular Volume 104.7 H 79-99 fL Mean Corpuscular Hemoglobin 33.1 H 27.0-33.0 pg Mean Corpuscular Hemoglobin Concent 31.6 L 32.0-36.0 g/dL Red Cell Distribution Width 14.6 11.0-15.5 % Platelet Count 111 #L 130-400 K/uL Mean Platelet Volume 10.8 H 7.5-10.5 fL Immature Granulocyte % (Auto) 1.3 H 0-1 % Neutrophils (%) (Auto) 97.1 H 40.0-77.0 % Lymphocytes (%) (Auto) 1.2 L 21.0-51.0 % Monocytes (%) (Auto) 0.3 L 3.0-13.0 % Eosinophils (%) (Auto) 0.0 0.0-8.0 % Basophils (%) (Auto) 0.1 0.0-5.0 % Neutrophils # (Auto) 7.3 1.8-7.7 K/uL Lymphocytes # (Auto) 0.1 L 1.0-4.8 K/uL Monocytes # (Auto) 0.0 L 0.1-1.0 K/uL Eosinophils # (Auto) 0.00 0.00-0.70 K/uL Basophils # (Auto) 0.01 0.00-0.20 K/uL Absolute Immature Granulocyte (auto 0.10 0-1 K/uL Nucleated Red Blood Cells 0.5 H 0.0-0.19 % Sodium Level 141 136-145 mmol/L Potassium Level 5.6 H 3.5-5.1 mmol/L Chloride Level 106 101-111 mmol/L Carbon Dioxide Level 27 21-32 mmol/L Blood Urea Nitrogen 121 *H 7-18 mg/dL Creatinine 3.6 H 0.5-1.0 mg/dL Glomerular Filtration Rate Calc 15 >90 mL/min Random Glucose 85 70-105 mg/dL Total Calcium 6.3 L 8.5-10.1 mg/dL Phosphorus Level 10.0 H 2.5-4.9 mg/dL Magnesium Level 2.20 1.80-2.40 mg/dL Total Bilirubin 0.3 0.2-1.0 mg/dL Aspartate Amino Transf (AST/SGOT) 64 H 10-37 U/L Alanine Aminotransferase (ALT/SGPT) 99 H 12-78 U/L Alkaline Phosphatase 118 50-136 U/L Total Protein 3.7 L 6.0-8.3 g/dL Albumin 1.4 L 3.5-5.0 g/dL Current Medications Medications (Trade) Dose Ordered Sig/Julita Route PRN Reason Start Time Stop Time Status Last Admin Dose Admin Acetaminophen (TYLenol 650MG ELIXIR) 650 mg Q6H PRN PO MILD PAIN (1-3) 06/04/24 08:30 07/04/24 08:29 06/10/24 20:07 650 MG Acetaminophen (TYLenol 650MG SUPPOSITORY) 650 mg Q6H PRN RC MILD PAIN (1-3) 05/23/24 20:30 06/22/24 20:29 DC Acetylcysteine (MUComyst 20% 4ML) 400mg = 2ml [id number] IH 06/02/24 00:00 06/05/24 15:52 DC 06/05/24 11:35 200 MG Albumin Human 50 ml @ 0 mls/hr Q8H IV 06/27/24 20:00 06/28/24 11:00 DC 06/28/24 03:42 100 MLS/HR Albuterol (DUOneb) 1 udvial [id number] IH 05/24/24 00:00 06/10/24 10:28 DC 06/10/24 06:45 1 UDVIAL Alprazolam (XANax 0.5MG) 0.5 mg Q8H PRN PO ANXIETY 06/10/24 13:30 07/10/24 13:29 06/25/24 06:30 0.5 MG Artificial Tears (Artificial Tears) 1 DROP OR AD Q8H OU 06/11/24 14:30 07/11/24 14:29 07/03/24 06:27 1 DROP Atovaquone (Mepron Susp) 1,500 mg Q24H PO 07/02/24 17:00 08/01/24 16:59 07/02/24 17:17 1,500 MG Azithromycin 250 ml @ 250 mls/hr Q24H IVPB 05/24/24 17:00 05/24/24 14:41 DC Azithromycin 250 ml @ 250 mls/hr Q24H STAT IVPB 05/23/24 17:17 05/24/24 14:41 DC 05/23/24 17:45 250 MLS/HR Benzocaine (Cepacol Sore Throat Lozenge) 1 each Q4H PRN MM SORE THROAT 06/08/24 10:00 06/29/24 17:27 DC 06/09/24 07:44 1 EACH Bisacodyl (DulcoLAX) 10 mg DAILY PRN RC CONSTIPATION 06/08/24 14:00 07/08/24 13:59 06/23/24 10:00 10 MG Bumetanide (Bumex 1mg Vial) 1 mg Q8H IVP 06/28/24 22:00 07/28/24 21:59 07/03/24 06:26 1 MG Cadexomer Iodine (Iodosorb Gel 40gm) 1 APPL TO RIGHT FAC... DAILY TP 06/19/24 09:00 07/18/24 08:59 07/03/24 09:07 1 APPL Cadexomer Iodine (Iodosorb Gel 40gm) 1 appl DAILY TP 06/18/24 09:00 06/19/24 07:23 DC 06/18/24 14:09 1 APPL Calcium Gluconate 1 gm/Sodium Chloride 100 ml @ 0 mls/hr PROTOCOL IV 06/27/24 10:30 07/27/24 10:29 07/01/24 10:22 100 MLS/HR Cefepime HCl (MAXipime 2 gm vial) 2 gm Q12H IVPB 05/24/24 15:00 06/03/24 14:59 DC 06/03/24 03:18 2 GM Ceftriaxone Sodium (ROCEphine 1G INJ) 1 gm Q24H IVPB 05/24/24 17:30 05/24/24 14:41 DC Chlorhexidine Gluconate (Peridex) 15 ml Q6H MM 06/07/24 17:00 06/11/24 14:27 DC 06/10/24 12:22 15 ML Chlorhexidine Gluconate (Peridex) 15 ml Q8H MM 06/11/24 14:30 06/25/24 14:29 DC 06/25/24 06:31 15 ML Cisatracurium Besylate (Nimbex) ONCE IVP 06/11/24 14:30 06/11/24 15:57 DC Cisatracurium Besylate 100 mg/ Sodium Chloride 100 ml @ 0 mls/hr PROTOCOL IV 06/11/24 23:30 06/23/24 16:20 DC 06/17/24 09:27 14.94 MLS/HR Cisatracurium Besylate 100 mg/ Sodium Chloride 100 ml @ 0 mls/hr PROTOCOL IV 06/23/24 16:30 06/23/24 18:43 DC 06/23/24 16:46 2.6 MLS/HR Clotrimazole (Mycelex) 10 mg TID MM 06/04/24 21:00 06/14/24 08:39 DC 06/13/24 20:28 10 MG Dexmedetomidine/ Sodium Chloride (PRECEdex 400MCG/ 100ML-NS) 400 mcg PROTOCOL IV 06/10/24 19:30 06/27/24 09:26 DC 06/25/24 05:08 400 MCG Dexmedetomidine/ Sodium Chloride (PRECEdex 400MCG/ 100ML-NS) 400 mcg PROTOCOL IV 06/27/24 09:30 07/27/24 09:29 07/03/24 07:02 400 MCG Dextrose (D50w) 50 ml AD PRN IV HYPOGLYCEMIA PROTOCOL 07/01/24 01:30 07/31/24 01:29 07/03/24 00:03 50 ML Diphenhydramine HCl (BENAdryl INJ) 25 mg Q6H PRN IV ITCHING 06/23/24 19:00 07/23/24 18:59 06/23/24 18:54 25 MG Dobutamine HCl/ Dextrose 250 ml @ 0 mls/hr PROTOCOL IV 06/12/24 16:30 06/12/24 16:53 DC Doxycycline Hyclate 250 ml @ 125 mls/hr Q12H IV 05/24/24 16:30 06/03/24 16:29 DC 06/03/24 04:23 125 MLS/HR Enoxaparin Sodium (Lovenox 80mg) 40 mg DAILY SQ 06/15/24 09:00 06/15/24 09:30 DC Enoxaparin Sodium (Lovenox 80mg) 80 mg BID SQ 06/11/24 09:00 06/14/24 23:28 DC 06/14/24 20:33 80 MG Enoxaparin Sodium (Lovenox) 40 mg DAILY SQ 06/15/24 09:30 07/01/24 07:55 DC 06/27/24 08:19 40 MG Enoxaparin Sodium (Lovenox) 40 mg Q24H SQ 05/23/24 21:00 06/11/24 04:36 DC 06/10/24 20:07 40 MG Famotidine (Pepcid 20mg Vial) 20 mg DAILY IV 05/24/24 09:00 06/14/24 08:39 DC 06/13/24 08:15 20 MG Fentanyl Citrate 100 ml @ 2.5 mls/hr PROTOCOL IV 06/29/24 21:00 07/02/24 21:48 DC 07/02/24 20:10 2.5 MLS/HR Fentanyl Citrate 2500 mcg/Sodium Chloride 250 ml @ 0 mls/hr AD PRN IV TITRATE icu sedation 06/27/24 20:00 06/27/24 20:03 DC Fentanyl Citrate 2500 mcg/Sodium Chloride 250 ml @ 0 mls/hr AD PRN IV TITRATE 07/02/24 22:00 07/02/24 21:53 DC Fentanyl Citrate 2500 mcg/Sodium Chloride 250 ml @ 0 mls/hr AD PRN IV TITRATE 06/17/24 05:30 06/17/24 05:18 DC Fentanyl/Sodium Chloride 250 ml @ 0.1 mls/hr PROTOCOL IV 06/12/24 00:00 06/17/24 00:00 DC 06/16/24 17:36 0.1 MLS/HR Fentanyl/Sodium Chloride 250 ml @ 0 mls/hr AD PRN IV ICU SEDATION 07/02/24 22:00 07/07/24 21:59 07/02/24 22:47 35 MLS/HR Fentanyl/Sodium Chloride 250 ml @ 0 mls/hr AD PRN IV ICU SEDATION 06/17/24 05:30 06/22/24 05:29 DC 06/21/24 19:51 30 MLS/HR Fentanyl/Sodium Chloride 250 ml @ 0 mls/hr PROTOCOL IV 06/27/24 20:30 06/29/24 21:04 DC 06/29/24 13:10 30 MLS/HR Fentanyl/Sodium Chloride 250 ml @ 0 mls/hr PROTOCOL IV 06/22/24 15:00 06/27/24 14:59 DC 06/27/24 12:13 35 MLS/HR Fluconazole (DiFLUCan 100 mg TAB) 200 mg DAILY PO 06/05/24 09:00 07/05/24 08:59 07/03/24 09:04 200 MG Fluconazole/ Sodium Chloride 100 ml @ 100 mls/hr DAILY IV 05/26/24 09:00 05/27/24 15:57 DC 05/27/24 09:07 100 MLS/HR Furosemide (LASix 20MG VIAL) 20 mg DAILY IV 05/31/24 09:00 06/07/24 13:18 DC 06/03/24 08:38 20 MG Furosemide (LASix 20MG VIAL) 20 mg DAILY IV 06/17/24 10:00 06/17/24 12:13 DC 06/17/24 09:46 20 MG Furosemide (LASix 20MG VIAL) 20 mg Q12H IV 06/11/24 11:00 06/13/24 09:31 DC 06/12/24 21:54 20 MG Furosemide (LASix 20MG VIAL) 20 mg Q12H IV 06/17/24 22:00 06/18/24 10:01 DC 06/18/24 09:44 20 MG Furosemide (LASix 20MG VIAL) 20 mg Q8H IV 06/13/24 09:30 06/16/24 11:00 DC 06/16/24 08:44 20 MG Furosemide (LASix 20MG VIAL) 20 mg Q8H IV 06/19/24 17:00 06/26/24 11:05 DC 06/26/24 09:13 20 MG Ganciclovir Sodium 250 mg/ Sodium Chloride 100 ml @ 100 mls/hr Q12H IV 06/27/24 21:00 06/28/24 19:50 DC 06/28/24 09:37 100 MLS/HR Ganciclovir Sodium 250 mg/ Sodium Chloride 100 ml @ 100 mls/hr Q24H IV 06/29/24 09:00 07/29/24 08:59 07/03/24 10:59 100 MLS/HR Ganciclovir Sodium 430 mg/ Sodium Chloride 100 ml @ 100 mls/hr Q12H IV 06/13/24 09:00 06/27/24 18:34 DC 06/27/24 11:41 100 MLS/HR Ganciclovir Sodium 500 mg/ Sodium Chloride 100 ml @ 100 mls/hr Q12H IV 06/11/24 18:00 06/11/24 15:48 DC Ganciclovir Sodium (Ganciclovir Sodium) 500 mg Q12H IV 06/12/24 17:00 06/13/24 08:35 DC Guaifenesin/ Dextromethorphan (RobiTUSSin DM 200/20MG 10ML) 10 ml Q4H PRN PO COUGH 05/23/24 20:30 06/22/24 20:29 DC 06/10/24 20:07 10 ML Home Med (Home Medication) BIKTARVY (1 TAB) Q24H PO 06/24/24 17:00 06/28/24 14:57 DC 06/27/24 17:08 1 EACH Home Med (Home Medication) BIKTARVY (1 TAB) Q24H PO 07/03/24 08:30 08/02/24 08:29 07/03/24 09:08 1 EACH Hydralazine HCl (APRESOLine 20MG INJ) 10 mg Q4H PRN IV ADMINISTER FOR SBP > 160 06/26/24 16:30 07/26/24 16:29 06/26/24 16:27 10 MG Hydrocortisone Sodium Succinate (Solu-corTEF 100MG) 100 mg Q8H IV 06/11/24 05:00 06/14/24 08:39 DC 06/14/24 06:13 100 MG Hydroxyzine HCl (ATArax 25MG TAB) 25 mg TID PRN PO ITCHING 06/10/24 14:00 06/29/24 17:27 DC 06/27/24 08:20 25 MG Insulin Glargine (LANtus 100 UNITS/ML 10 ML VIAL) 15 units BID@0730,2100 SQ 06/27/24 21:00 07/01/24 09:16 DC 06/30/24 21:04 15 UNITS Insulin Human Regular (humuLIN R 100 UNIT/ML 3ML) INSULIN SLIDING SCAL... ACHS SQ 06/19/24 16:30 06/20/24 15:07 DC 06/20/24 12:30 5 UNIT Insulin Human Regular (humuLIN R 100 UNIT/ML 3ML) INSULIN SLIDING SCAL... Q6H6 SQ 06/20/24 18:00 07/19/24 16:29 06/28/24 12:40 2 UNIT Ipratropium [place] (AtrovENT UD) 0.5 MG [id number] IH 06/10/24 14:00 06/27/24 14:53 DC 06/27/24 14:01 0.5 MG Ipratropium [place] (AtrovENT UD) 0.5 MG [id number] PRN IH SHORTNESS OF BREATH 06/27/24 15:00 07/10/24 13:59 06/29/24 03:21 0.5 MG Lactated Ringer's (Lactated Ringers 1000ml) 500 ml ONCE IV 06/02/24 20:00 06/02/24 19:54 DC Lactulose (Constulose 20gm/ 30ml Udcup) 20 gm Q8H PO 06/28/24 11:00 06/29/24 17:27 DC 06/29/24 11:32 20 GM Lactulose (Constulose 20gm/ 30ml Udcup) 20 gm Q8H PO 06/29/24 21:00 06/30/24 21:21 DC 06/30/24 05:25 20 GM Levofloxacin/ Dextrose 100 ml @ 100 mls/hr Q24H IV 05/24/24 15:00 05/24/24 16:16 DC Magnesium Sulfate 50 ml @ 0 mls/hr PROTOCOL PRN IV hypomagnesemia 05/28/24 08:00 06/27/24 07:59 DC 06/11/24 05:26 50 MLS/HR Meropenem (Merrem 1gm) 1 gm Q8H IVPB 06/13/24 15:00 06/18/24 21:57 DC 06/18/24 15:34 1 GM Meropenem (Merrem 1gm) 1 gm Q8H IVPB 06/19/24 01:00 06/21/24 00:59 DC 06/20/24 16:50 1 GM Meropenem (Merrem) 1 gm Q8H IVPB 06/11/24 15:00 06/13/24 11:52 DC 06/13/24 08:14 1 GM Meropenem 1 gm/ Sodium Chloride 100 ml @ 33.333 mls/ hr Q8H IV 06/11/24 14:30 06/11/24 14:28 DC Methylprednisolone Sodium Succinate (Solu-medROL 40MG) 20 mg Q12H IVP 06/05/24 07:00 06/09/24 09:13 DC 06/09/24 07:25 20 MG Methylprednisolone Sodium Succinate (Solu-medROL 40MG) 40 mg Q12H IVP 05/28/24 18:00 05/29/24 16:45 DC 05/29/24 05:32 40 MG Methylprednisolone Sodium Succinate (Solu-medROL 40MG) 40 mg Q6H IVP 05/29/24 16:30 06/04/24 16:44 DC 06/04/24 11:13 40 MG Methylprednisolone Sodium Succinate (Solu-medROL 40MG) 40 mg Q6H IVP 06/04/24 18:00 06/05/24 00:24 DC 06/04/24 23:48 40 MG Methylprednisolone Sodium Succinate (Solu-medROL 40MG) 40 mg Q8H IVP 05/24/24 01:00 05/25/24 21:51 DC 05/25/24 17:28 40 MG Methylprednisolone Sodium Succinate (Solu-medROL 40MG) 60 mg Q6H IVP 05/25/24 22:00 05/28/24 02:25 DC 05/27/24 23:55 60 MG Methylprednisolone Sodium Succinate (Solu-medROL 40MG) 60 mg Q6H IVP 05/28/24 06:00 05/28/24 08:27 DC 05/28/24 06:47 60 MG Methylprednisolone Sodium Succinate (Solu-medROL 40MG) 60 mg Q6H IVP 06/11/24 02:30 06/11/24 04:23 DC 06/11/24 02:46 60 MG Methylprednisolone Sodium Succinate (Solu-medROL 40MG) 80 mg Q8H IVP 06/14/24 17:00 07/14/24 08:59 07/03/24 09:04 80 MG Methylprednisolone Sodium Succinate (Solu-medROL 125MG) 80 mg Q8H IVP 06/14/24 09:00 06/14/24 14:53 DC 06/14/24 08:48 80 MG Metoclopramide HCl (regLAN 10MG/ 10ML UD CUP) 5 mg Q8H PO 06/29/24 21:00 07/22/24 07:29 07/03/24 04:12 5 MG Metoclopramide HCl (regLAN 10MG/ 10ML UD CUP) 5 mg TIDAC PO 06/22/24 07:30 06/29/24 17:27 DC 06/29/24 11:32 5 MG Metronidazole/ Sodium Chloride (flaGYL) 500 mg Q8H IV 05/25/24 22:00 05/25/24 21:56 DC Midazolam HCl 50 ml @ 0 mls/hr AD PRN IV TITRATE 06/12/24 01:30 06/12/24 08:30 DC 06/12/24 02:30 10 MLS/HR Midazolam HCl 50 ml @ 0 mls/hr AD PRN IV TITRATE 07/01/24 05:30 07/08/24 05:29 07/03/24 04:13 10 MLS/HR Midazolam HCl 100 ml @ 0 mls/hr AD PRN IV TITRATE 06/12/24 09:00 07/01/24 05:15 DC 06/30/24 18:38 10 MLS/HR Morphine Sulfate (morPHINE 4MG SYG) 4 mg Q4H PRN IM RESPIRATORY SYMPTOMS 06/11/24 03:30 06/14/24 23:33 DC 06/11/24 03:27 4 MG Norepinephrine 250 ml @ 0 mls/hr PROTOCOL IV 06/23/24 21:00 07/03/24 08:46 DC 07/03/24 07:03 33 MLS/HR Norepinephrine Bitartrate 32 mg/ Sodium Chloride 250 ml @ 0 mls/hr PROTOCOL IV 07/03/24 08:30 08/02/24 08:29 07/03/24 11:20 22.96 MLS/HR Ondansetron HCl (zoFRAN 4MG INJ) 4 mg Q6H PRN IV NAUSEA/VOMITING 05/23/24 20:30 06/22/24 20:29 DC Pantoprazole Sodium (PROTonix 40MG INJ) 40 mg BID IVP 06/12/24 21:00 07/12/24 20:59 07/03/24 09:04 40 MG Pharmacy Profile Note (Lace Assessment) 1 each AD MISC 06/27/24 18:00 06/27/24 18:40 DC Pharmacy Profile Note (Lace Assessment) 1 each AD MISC 06/17/24 16:30 06/17/24 16:27 DC Pharmacy Profile Note (Pharmacy Communication) 1 each ONCE MISC 06/11/24 14:30 06/11/24 15:53 DC Pharmacy Profile Note (Pharmacy Communication) 1 each ONCE MISC 06/11/24 20:30 06/11/24 20:14 DC Pharmacy Profile Note (Pharmacy Communication) 1 each ONCE MISC 06/12/24 17:00 06/12/24 17:07 DC Pharmacy Profile Note (Pharmacy Communication) 1 each ONCE MISC 06/24/24 13:00 06/24/24 12:43 DC Pharmacy Profile Note (Pharmacy Communication) 1 each ONCE MISC 07/02/24 14:30 07/02/24 16:42 DC Pharmacy Profile Note (Pharmacy Communication) 1 each ONCE MISC 07/03/24 09:00 07/03/24 08:08 DC Pharmacy Profile Note (Pharmacy Communication) 1 each ONCE MISC 06/23/24 20:30 06/23/24 20:32 DC Phenylephrine HCl 10 mg/Sodium Chloride 251 ml @ 0 mls/hr AD PRN IV DIRECTED 06/11/24 03:00 06/12/24 18:12 DC 06/12/24 14:10 47 MLS/HR Phenylephrine HCl 50 mg/Sodium Chloride 250 ml @ 0 mls/hr PROTOCOL PRN IV PROTOCOL 06/12/24 18:00 07/12/24 17:59 06/13/24 08:57 12.45 MLS/HR Polyethylene Glycol (MIRalax 3350 17 GM POWD.PACK) 17 gm DAILY PO 06/22/24 09:00 07/22/24 08:59 07/03/24 09:05 17 GM Potassium Chloride 100 ml @ 100 mls/hr AD PRN IV POTASSIUM PROTOCOL 05/28/24 08:00 06/27/24 07:59 DC Potassium Chloride (K-Dur/Klor-Con 20meq) 20 meq AD PRN PO POTASSIUM PROTOCOL 05/28/24 08:00 06/27/24 07:59 DC Potassium Chloride (KCl 10% Elixir 20meq/15ml) 20 meq AD PRN PO POTASSIUM PROTOCOL 05/28/24 08:00 06/27/24 07:59 DC Prednisone (deltaSONE/ oraSONE 20MG TAB) 20 mg DAILY PO 06/10/24 09:00 06/14/24 08:39 DC 06/13/24 08:15 20 MG Rocuronium [place] 100 mg/ Sodium Chloride 100 ml @ 0 mls/hr PROTOCOL IV 06/24/24 08:30 06/25/24 02:44 DC 06/25/24 01:00 0 MLS/HR Rocuronium [place] 200 mg/ Sodium Chloride 200 ml @ 0 mls/hr PROTOCOL IV 06/25/24 03:00 07/24/24 08:29 07/02/24 20:12 43 MLS/HR Rocuronium [place] (ZemuRON) 10 mg Q1H PRN IV RESP DISTRESS/VENT DISYNCHRONY 06/11/24 20:30 06/11/24 23:29 DC 06/11/24 20:33 10 MG Rocuronium [place] (ZemuRON) 50 mg Q4H PRN IV VENT DYSSYNCHRONY 06/17/24 16:30 06/23/24 16:19 DC 06/23/24 04:03 50 MG Sodium Chloride 500 ml @ 500 mls/hr Q1H IV 06/02/24 20:00 06/02/24 20:59 DC 06/02/24 21:34 500 MLS/HR Sodium Chloride 1,000 ml @ 0 mls/hr Q0M IV 06/26/24 19:00 06/29/24 17:27 DC Sodium Chloride 1,000 ml @ 75 mls/hr [id number] IV 06/07/24 13:30 06/10/24 17:02 DC 06/10/24 09:05 75 MLS/HR Sodium Chloride (Sodium Chloride) 1,000 mg BIDAC PO 06/07/24 16:30 06/09/24 07:28 DC 06/08/24 16:58 1,000 MG Sodium Chloride (Sodium Chloride) 1,000 mg BIDAC PO 06/09/24 07:30 06/12/24 16:35 DC 06/12/24 12:30 1,000 MG Sodium Chloride (Sodium Chloride) 1,000 mg Q12H PO 06/12/24 21:00 07/09/24 07:29 07/03/24 09:05 1,000 MG Sodium Zirconium Cyclosilicate (Lokelma 10gm Powder) 10 gm TID PO 07/01/24 14:00 07/02/24 13:59 DC 07/02/24 08:52 10 GM Sodium Zirconium Cyclosilicate (Lokelma) 5 gm DAILY10 PO 06/08/24 10:30 06/10/24 10:29 DC 06/08/24 10:50 5 GM Thiamine HCl (Vitamin B-1) 100 mg DAILY IVP 06/28/24 09:00 07/28/24 08:59 07/03/24 09:04 100 MG Trimethoprim/ Sulfamethoxazole (BactRIM DS) 1 tab BID PO 05/26/24 21:00 05/29/24 16:18 DC 05/29/24 08:07 1 TAB Trimethoprim/ Sulfamethoxazole (BactRIM DS) 2 tab TID PO 05/29/24 16:30 06/05/24 20:59 DC 06/05/24 14:55 2 TAB Trimethoprim/ Sulfamethoxazole (BactRIM DS) 2 tab TID PO 06/06/24 09:30 06/11/24 21:54 DC 06/10/24 13:58 2 TAB Trimethoprim/ Sulfamethoxazole 160 mg/Dextrose 250 ml @ 333.333 mls/hr BID@0600,1800 IV 06/22/24 06:00 06/22/24 17:17 DC 06/22/24 06:25 333.333 MLS/HR Trimethoprim/ Sulfamethoxazole 160 mg/Dextrose 250 ml @ 333.333 mls/hr DAILY IV 06/23/24 09:00 07/02/24 06:00 DC 07/01/24 08:55 333.333 MLS/HR Trimethoprim/ Sulfamethoxazole 320 mg/Dextrose 500 ml @ 333.333 mls/hr Q8H IV 06/19/24 00:30 06/21/24 21:30 DC 06/21/24 16:16 333.333 MLS/HR Trimethoprim/ Sulfamethoxazole 320 mg/Dextrose 500 ml @ 500 mls/hr Q8H IV 06/11/24 22:30 06/12/24 16:35 DC 06/12/24 06:39 500 MLS/HR Trimethoprim/ Sulfamethoxazole 320 mg/Dextrose 500 ml @ 500 mls/hr Q8H IV 06/12/24 18:00 06/13/24 11:13 DC 06/13/24 05:30 500 MLS/HR Trimethoprim/ Sulfamethoxazole 320 mg/Dextrose 500 ml @ 500 mls/hr Q8H IV 06/13/24 13:30 06/18/24 21:55 DC 06/18/24 14:08 500 MLS/HR Trimethoprim/ Sulfamethoxazole 320 mg/Dextrose 500 ml @ 500 mls/hr Q8H IV 06/18/24 11:59 06/19/24 00:56 DC 06/18/24 11:59 500 MLS/HR Valganciclovir (ValGANCIClovir HCL) 900 mg BID PO 06/11/24 21:00 06/13/24 08:37 DC Vasopressin 40 units/Sodium Chloride 40 ml @ 0 mls/hr PROTOCOL IV 07/03/24 12:00 08/02/24 11:59 Wound Care/ Dressing Products (Venelex Ointment) 1 VOLODYMYR AD TID TP 06/14/24 14:00 07/14/24 13:59 07/03/24 09:07 1 GM DIAGNOSTICS / RADIOLOGY: [ ] ASSESSMENT: Acute hypoxemic respiratory failure, POA Bilateral lower lobe bacterial pneumonia + MRSA POA, +Azra Suspected PCP PNA based on CT findings vs viral/Atypical PNA . 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 Currently the patient on FiO2 100%. Today creatinine at 2.2, continue to follow Nephrology input and recommendations. Continue fentanyl, Versed, Precedex, and rocuronium. Continue broad-spectrum antibiotics Continue gancyclovir IV q.12 hours. Continue Solu-Medrol 80 mg IV q.8 hours Continue to follow infectious disease input and recommendation Continue to follow daily chest x-ray and ABG. Further orders per hospitalization course Prognosis of this patient remains poor and guarded. Son at bedside during my visit, updated, all questions answered. Disposition: Pending improvement in clinical condition. time spent: > 35 min HEATHER RICE MD Jul 03, 2024 12:05
[2024-07-03] MEDS: VASOpressin 20 UNITS/ML 1ML Vi 40 UNITS in 0.9%NACL 50ML 40 ML IV SCH (13:42)
--- NOTE | 2024-07-03 14:25 | NUR ---
[facility] CATH INSERTED Addendum: 07/03/24 at 1656 by SEDA MALDONADO RN RN DISREGARD-ERROR- WRONG CHART
--- NOTE | 2024-07-03 14:31 | HMCIMG ---
CHEST 1VW REASON: intubated COMPARISON: 07/02/2024 FINDINGS: There is been interval development of a left-sided tension pneumothorax with complete collapse of the left lung with shift of mediastinal structures left to right. There is partial atelectasis of the right lung. ET tube remains in good position. IMPRESSION: 1. Left-sided tension pneumothorax with complete collapse of the left lung. 2. These findings discussed with patient's care team at the time of dictation.
--- NOTE | 2024-07-03 15:30 | NUR ---
[facility] Follow-up: Unable assess patient at this time, chest tube placement being done my provider. Addendum: 07/04/24 at 1420 by RULA RODRIGUEZ RN RN/ Amended: Links added.
--- NOTE | 2024-07-03 15:33 | ERN ---
CODEBLUE/INTUBATION/PROCEDURE DATE: 07/03/24 Chest tube note: 49-year-old female in ICU for acute respiratory distress syndrome on ventilator paralyzed and sedated called for assistance with left-sided chest tube for tension pneumothorax hemodynamic instability, sterile procedure was initiated local anesthetic applied finger thoracostomy placed with significant release of air, 20 [place] chest tube placed and secured pulse x-ray stable, assistance with nurse practitioner from critical Care group/benchmark at bedside. KARYN DENNIS MD Jul 03, 2024 15:33
--- NOTE | 2024-07-03 16:06 | HMCIMG ---
CHEST 1VW REASON: Tension Pneumothorax s/p Chest Tube insertion COMPARISON: 07/03/2024 FINDINGS: Left chest tube has been inserted. There is partial expansion of the left lung. There is complete resolution of the mediastinal shift. Extensive infiltrate persists in the right lung. ET and NG tubes remain in place. There is a small amounts of simultaneous emphysema in the left chest wall. IMPRESSION: 1. Left chest tube placement, partial reexpansion of the left lung although there is a small pneumothorax remaining, there has been resolution of the mediastinal shift.
--- NOTE | 2024-07-03 16:19 | NUR ---
DR VILLA NOTIFIED THAT PT IS CLEARED TO DC HOME BY CARDIOLOGY Addendum: 07/03/24 at 1621 by SEDA MALDONADO RN RN ERROR- WRONG CHART-DISREGARD
[2024-07-03 16:46] LABS: ABG BASE EXCESS -19.8 mmol/L (-2.0-3.0); ABG HCO3 15.5 mmol/L (21.0-28.0); ABG PCO2 89 mmHg (32-45); ABG PH 6.858 (7.350-7.450); DEVICE COMMENT ALINE; PO2, ARTERIAL BG < 45.0 mmHg (83.0-108.0); VENT MODE, BG PC 30 (ROOM AIR)
--- NOTE | 2024-07-03 16:56 | NUR ---
1430- TENSION PNEUMOTHORAX. CHEST TUBE INSERTION EMERGENT- MENDY PAEZ NOTIFIED. 1530 LT SIDED CHEST TUBE INSERTED. 1656- PT CONTINUES TO NOT IMPROVE- DR ALBRIGHT AT BEDSIDE SPEAKING TO SON AFTER REVIEWING CXR AND ABG
--- NOTE | 2024-07-03 18:22 | NUR ---
PT SON YOHAN IS AWARE OF PT POOR CONDITION AND PROGNOSIS. ASKED FOR MORE "TIME" TO REFLECT ON WHAT DR ALBRIGHT HAS INFORMED HIM ABOUT. PT STILL DNR.
--- NOTE | 2024-07-03 19:15 | NUR ---
HAND OFF REPORT GIVEN TO LORRI CARBAJAL
[2024-07-03 20:17] LABS: ABG BASE EXCESS -16.8 mmol/L (-2.0-3.0); ABG HCO3 16.2 mmol/L (21.0-28.0); ABG OXYGEN SATURATION 61.4 % (94.0-98.0); ABG PCO2 85 mmHg (32-45); ABG PH 6.896 (7.350-7.450); CARBON MONOXIDE 2.9 % (0.5-1.5); HHb 37.4; PO2, ARTERIAL BG 45.5 mmHg (83.0-108.0); VENT MODE, BG AC PC PIP 30 (ROOM AIR)
[2024-07-03] MEDS: SODIUM BICARB 50MEQ 50ML VIAL IV SCH (20:27)
[2024-07-04] VITALS (43 sets, daily range): BP systolic 45–71; BP diastolic 33–54; PULSE 58–99; RESP 8–63; TEMP 92.7; O2SAT 25–86
[2024-07-04] MEDS: phenylEPHRINE HCL 100 MG in 0.9% NACL 250ML 250 ML IV PRN (00:10)
[2024-07-04 00:44] LABS: ABG BASE EXCESS -15.9 mmol/L (-2.0-3.0); ABG HCO3 15.7 mmol/L (21.0-28.0); ABG OXYGEN SATURATION 45.1 % (94.0-98.0); ABG PCO2 83 mmHg (32-45); ABG PH 6.895 (7.350-7.450); CARBON MONOXIDE 2.7 % (0.5-1.5); HHb 53.3; PO2, ARTERIAL BG < 45.0 mmHg (83.0-108.0)
--- NOTE | 2024-07-04 03:55 | PN ---
DATE OF SERVICE: 07/03/2024. INFECTIOUS DISEASE FOLLOWUP NOTE SUBJECTIVE: The patient is seen and examined at bedside. The patient has no fever, no chills. The patient remained on ventilatory support. The patient was found with left . Chest tube was placed on the left side. No family at the bedside at this time. The patient remained on vasopressor. PHYSICAL EXAMINATION: VITAL SIGNS: Temperature . EYES: No icterus. Pupils equal and reactive. HENT: No oral thrush seen. Moist oral mucosa. NECK: Supple, no JVD or thyromegaly. LUNGS: Good air entry. Crackles bilaterally. CARDIOVASCULAR: S1, S2 regular, tachycardic. No murmur heard. ABDOMEN: Obese, soft. Bowel sound is present. CENTRAL NERVOUS SYSTEM: Sedated, paralyzed. SKIN: No rashes, no itchiness. MUSCULOSKELETAL: Edema of upper and lower extremities. ASSESSMENT: A 49-year-old female with multiple problems include: * Septic shock. * MRSA pneumonia. * Pneumocystis jirovecii pneumonia. * chest tube placement. * Hypoxic respiratory failure. * Acute renal failure. * Obesity. * HIV/AIDS. * Oral candidiasis. * Cytomegalovirus infection. PLAN: * Continue critical care support. * Continue Biktarvy. * Continue to monitor chest tube output. * Continue ventilatory support. * Continue pain management. * Continue DVT prophylaxis. * Monitor electrolytes. * Continue NG tube feeding. TID: [id number] RECEIPT: [id number]
[2024-07-04 04:32] LABS: BASOPHILS # (AUTO) 0.01 K/uL (0.00-0.20); BASOPHILS % (AUTO) 0.1 % (0.0-5.0); EOSINOPHILS # (AUTO) 0.01 K/uL (0.00-0.70); EOSINOPHILS % (AUTO) 0.1 % (0.0-8.0); HEMATOCRIT 25.1 % (36-48); IMMATURE GRANULOCYTE ABSOLUTE 0.17 K/uL (0-1); LYMPHOCYTES % (AUTO) 0.2 % (21.0-51.0); MEAN CORPUSCULAR HEMOGLOBIN 33.6 pg (27.0-33.0); MEAN CORPUSCULAR HGB CONC 29.1 g/dL (32.0-36.0); MEAN CORPUSCULAR VOLUME 115.7 fL (79-99); MONOCYTES % (AUTO) 0.1 % (3.0-13.0); NEUTROPHILS # (AUTO) 8.9 K/uL (1.8-7.7); NEUTROPHILS % (AUTO) 97.6 % (40.0-77.0); NUCLEATED RED BLOOD CELLS 1.9 % (0.0-0.19); PLATELET COUNT (AUTO) 59 K/uL (130-400); RED BLOOD CELL COUNT(AUTO) 2.17 MIL/uL (4.00-5.50); RED CELL DISTRIBUTION WIDTH 15.5 % (11.0-15.5); WHITE BLOOD COUNT (AUTO) 9.1 K/uL (4.8-10.8)
[2024-07-04] MEDS: NACL 0.9% IV SCH (04:50)
[2024-07-04] MEDS: ROCURONIUM BROMIDE IV SCH (04:50)
[2024-07-04 04:58] LABS: CREATININE 3.7 mg/dL (0.5-1.0); MAGNESIUM 2.1 mg/dL (1.80-2.40)
[2024-07-04 05:02] LABS: POTASSIUM 5.9 mmol/L (3.5-5.1)
[2024-07-04] MEDS: CALCIUM GLUC 1GM/10ML VIAL ONE (05:53)
--- NOTE | 2024-07-04 08:30 | NUR ---
BLOOD SUGAR IS 25, DEXTROSE 50%, 50CC ADM. DR ALBRIGHT MADE AWARE, ORDERS RECEIVED FOR DEXTROSE 10% DRIP WITH 200 MEQ SODIUM BICARBONATE. RECHECK BLOOD SUGAR 209. LOW TEMPERATURE, LAN HUGGER APPLIED. MAXED OUT ON PRESSORS AND TOES AND FINGERS DUSKY WELL HER FACE.
[2024-07-04] MEDS: WATER IV SCH (09:23)
[2024-07-04] MEDS: DEXTROSE 10% IV SCH (09:23)
[2024-07-04] MEDS: SODIUM BICARB IV SCH (09:23)
--- NOTE | 2024-07-04 10:07 | HMCIMG ---
CHEST 1VW REASON: EVALUATE PNEUMOTHORAX/CHEST TUBE COMPARISON: 07/03/2024 FINDINGS: Left chest tube remains in place. There is a persistent moderate pneumothorax measuring 3 cm at the apex. This appears increased since prior exam. There is also increasing subcutaneous emphysema. There is extensive infiltrate right lung unchanged. ET and NG tubes appear in good position. IMPRESSION: 1. Left pneumothorax which appears to be increasing in size, there is also increasing subcutaneous emphysema.
--- NOTE | 2024-07-04 10:30 | NUR ---
ASSUMED CARE OF PT FROM HUI CARBAJAL
--- NOTE | 2024-07-04 11:16 | NUR ---
DR LOPEZ F/U Sw spoke to Kelli nurse. Dr Munguia order Dr Lopez f/u, pt is actively dying, possible withdrawal vs continue as is. Sw spoke to Dr Lopez who will make call to son and f/u. Dr Lopez made aware pt is DNR and per nurse, actively dying. Dr Lopez called and left message for son. Waiting senior coldfusion developer back
--- NOTE | 2024-07-04 11:30 | NUR ---
PT S/S OF IMPENDING - NON RESPONSIVE TO IV VASOPRESSORS- EXTREMITIES ARE COLD TO TOUCH. DNR STATUS IN PLACE. I HAVE NOTIFIED [employer] WHICH HAS INFORMED ME THAT SHE HAS BEEN RULED OUT FOR DONATION AND TO CALL WITH TIME OF . I HAVE NOTIFIED ENERGY CONSERVATION DIRECTOR FOR DR LOPEZ REFERRAL.
--- NOTE | 2024-07-04 11:43 | NUR ---
DR ALBRIGHT MADE AWARE OF ABG RESULTS. ORDERS RECEIVED TO RECONSULT DR LOPEZ.
--- NOTE | 2024-07-04 11:56 | NUR ---
DR ALBRIGHT SPOKE TO PT SON- END OF LIFE CARE DISCUSSED.
[2024-07-04] MEDS ORDERED: NACL 0.9% IV SCH (12:30)
[2024-07-04] MEDS ORDERED: ROCURONIUM BROMIDE IV SCH (12:30)
[2024-07-04] MEDS: hydroCORTisone SOD SUCCINATE 100 MG/2 ML VIAL IV SCH (12:32)
--- NOTE | 2024-07-04 12:38 | NUR ---
PT - NO PULSE, NO BP, NO RESPIRATIONS. PRONOUNCED AT BEDSIDE BY DR. Noah ALBRIGHT ICU . ALL DRIPS STOPPED. VENTILATOR TURNED OFF. FAMILY AT BEDSIDE
--- NOTE | 2024-07-04 13:42 | NUR ---
FAMILY GRIEVING AT [place]EDSIDE- [facility] [place] THEM. PENDING DECISION FOR HOME/ AUTOPSY. WILL PERFORM POST MORTEM CARE ONCE FAMILY TIME ALLOWS. I HAVE NOTIFIED DR KOO, DR RANDLE, DR RICE, DR LOPEZ OF
--- NOTE | 2024-07-04 14:32 | NUR ---
Patient before RD could re-assess. Addendum: 07/04/24 at [address] Amended: Links added.
--- NOTE | 2024-07-04 16:15 | NUR ---
FAMILY HAS NOW GONE HOME- POST MORTEM CARE DONE. ALL LINES AND TUBES REMOVED. SECURITY CALLED TO TAKE PT TO [facility]
--- NOTE | 2024-07-04 16:52 | PN ---
[facility] PROGRESS NOTE Date Patient Seen: Jul 04, 2024 Time of Visit: 11:44 Supervising Physician: DR. LITA BACON Primary Care Physician: Stu Foss MD Outpatient Specialists: Inpatient Consults: Pulmonology PROBLEM LIST: -Critical Illness - Left side Tension Pneumothorax 07/03/24 s/p needle decompression and chest tube placement - Acute hypoxic hypercapnic respiratory failure on mechanical ventilator support via ETT - Severe Adult Respiratory Distress Syndrome - MODS (respiratory, Liver , and kidneys) - RADHA - Hyperkalemia improved - Transaminitis - Bilateral lower lobe pneumonia with positive MRSA and confirmed PCP - Disseminated herpes simplex viral infection - Newly diagnoses HIV with AIDS - Morbid obesity, BMI 31.4 - Severe protein calorie malnutrition - Former tobacco use disorder INTERVAL HISTORY: 07/03/24- patient continues critically ill sedated and paralyzed. This morning she has been started on Levophed due to hypotension, patient this saturating into the 80s. Urine output has been minimal at 25 mL in the last 24 hours, patient with noticeable anasarca. She is not a candidate for hemodialysis due to high-risk of precipitating cardiac arrest per Nephrology. WBCs today 7.5 H&H of 7.5/26.9 slightly improved from yesterday platelet count is 111 K. neutrophils remain elevated at 97.1 today. On chemistries sodium 141 potassium was 5.6 BUN of 121 creatinine of 3.6 GFR of 15 total calcium of 6.3 phosphorus of 10. ABG with a pH of 6.8 pCO2 of 85 po2 < 45. Sodium bicarb 150 mEq x 1 administered. Chest x-ray ordered. I was called later to the bedside due to patient with pneumothorax on chest x- ray. Needle decompression done emergently due to patient with hypotension and desaturation tachycardic. ED physician arrived to assist with open thoracostomy chest tube placement to left side. Audible air released and blood pressure is improved. On repeat chest x-ray there is partial re-expansion of the left lung although there is a small pneumothorax remained in there has been resolution of the mediastinal shift. Dr Bacon has updated son and he was made aware of poor prognosis. Patient is a 49 year old lady, extremely obese with underlying hx significant for HIV, Left side Tension Pneumothorax 07/03/24 s/p needle decompression and chest tube placement Acute hypoxic hypercapnic respiratory failure on mechanical ventilator support via ETT, Severe Adult Respiratory Distress Syndrome, MODS (respiratory, Liver , and kidneys) , RADHA she is extremely sick, critically ill sedated, with persistent hypotension , not responded to vasopressors, with chest tube in place to left side, continues to be on bumex, FC in place no hematuria jail prognosis is very poor, condition and prognosis has been explained to her brother in detail, unfortunately patient is in a terminal condition due to multiorgan failure patient's brother verbalized understanding , she will continue with current medical management until now , we will follow up with family for any further changes or decisions. REVIEW OF SYSTEMS: Unable to obtain ROS from patient due to patient's medical condition. PHYSICAL EXAM: GENERAL: Sedated and paralyzed, intubated currently SUPINE, anasarca HEENT: Sclera non icteric, dry scabs and sores to mucosa, sore to rt cheek, swelling to periorbital regions NECK: short neck no JVD, trachea midline LUNGS: diminished bilaterally lobes no wheezing HEART: Regular rate and rhythm. Normal S1 and S2, without murmurs ABD: Abdomen soft, nontender. Bowel sounds hypoactive last BM last night 5 per RN report EXT: No clubbing cyanosis or edema, sore to sacral area, NEURO: Intubated sedated and paralyzed. Vital Signs (last 8hr) Date Time Temp Pulse Resp B/P (MAP) Pulse Ox O2 Delivery O2 Flow Rate FiO2 07/04/24 12:10 58 8 58/37 (44) 07/04/24 12:00 70 60 57/37 (44) 07/04/24 11:51 71 100 07/04/24 11:45 70 60 58/37 (44) 07/04/24 11:30 72 60 59/38 (45) 07/04/24 11:15 71 60 60/38 (45) 07/04/24 11:00 71 60 60/37 (45) 07/04/24 10:45 72 63 61/44 (50) 07/04/24 10:32 64/45 07/04/24 10:30 72 63 62/43 (49) 07/04/24 10:15 72 63 64/48 (53) 07/04/24 10:00 73 63 67/51 (56) 07/04/24 09:45 73 62 71/52 (58) 07/04/24 09:36 72 100 07/04/24 09:30 72 62 53/38 (43) 07/04/24 09:15 73 62 61/39 (46) 07/04/24 09:00 74 40 61/38 (46) 07/04/24 08:45 73 40 64/49 (54) LABS: Hematology Labs: Test 07/04/24 03:52 Range/Units White Blood Count 9.1 4.8-10.8 K/uL Red Blood Count 2.17 L 4.00-5.50 MIL/uL Hemoglobin 7.3 L 12.0-16.0 g/dL Hematocrit 25.1 L 36-48 % Mean Corpuscular Volume 115.7 H 79-99 fL Mean Corpuscular Hemoglobin 33.6 H 27.0-33.0 pg Mean Corpuscular Hemoglobin Concent 29.1 L 32.0-36.0 g/dL Red Cell Distribution Width 15.5 11.0-15.5 % Platelet Count 59 #L 130-400 K/uL Mean Platelet Volume 12.2 H 7.5-10.5 fL Immature Granulocyte % (Auto) 1.9 H 0-1 % Neutrophils (%) (Auto) 97.6 H 40.0-77.0 % Lymphocytes (%) (Auto) 0.2 L 21.0-51.0 % Monocytes (%) (Auto) 0.1 L 3.0-13.0 % Eosinophils (%) (Auto) 0.1 0.0-8.0 % Basophils (%) (Auto) 0.1 0.0-5.0 % Neutrophils # (Auto) 8.9 H 1.8-7.7 K/uL Lymphocytes # (Auto) 0.0 L 1.0-4.8 K/uL Monocytes # (Auto) 0.0 L 0.1-1.0 K/uL Eosinophils # (Auto) 0.01 0.00-0.70 K/uL Basophils # (Auto) 0.01 0.00-0.20 K/uL Absolute Immature Granulocyte (auto 0.17 0-1 K/uL Nucleated Red Blood Cells 1.9 H 0.0-0.19 % Chemistry Labs: Test 07/04/24 12:11 07/04/24 03:52 Range/Units Whole Blood Glucose 48 #*L 70-110 MG/DL Bedside Glucose Comment Notified Nurse Sodium Level 148 H 136-145 mmol/L Potassium Level 5.9 H 3.5-5.1 mmol/L Chloride Level 110 101-111 mmol/L Carbon Dioxide Level 22 21-32 mmol/L Blood Urea Nitrogen 119 *H 7-18 mg/dL Creatinine 3.7 H 0.5-1.0 mg/dL Glomerular Filtration Rate Calc 14 >90 mL/min Random Glucose 91 70-105 mg/dL Total Calcium 5.9 *L 8.5-10.1 mg/dL Phosphorus Level 12.0 H 2.5-4.9 mg/dL Magnesium Level 2.10 1.80-2.40 mg/dL DIAGNOSTICS / RADIOLOGY RESULTS: CHEST 1VW REASON: EVALUATE PNEUMOTHORAX/CHEST TUBE COMPARISON: 07/03/2024 FINDINGS: Left chest tube remains in place. There is a persistent moderate pneumothorax measuring 3 cm at the apex. This appears increased since prior exam. There is also increasing subcutaneous emphysema. There is extensive infiltrate right lung unchanged. ET and NG tubes appear in good position. IMPRESSION: 1. Left pneumothorax which appears to be increasing in size, there is also increasing subcutaneous emphysema. DICTATED BY: LALO IBANEZ MD DATE: 07/04/24 1004 PLAN her prognosis is very poor and her survival rate is less than 10% unstable, critically ill and remains fully dependent on ventilator support with 100% FiO2 DNR and comfort measures and explained the severity of her illness and her physical decline discontinue Solumedrol Discontinue Reglan Keep on Bumex NEURO: Minimize central acting medications as possible. Maintain fall precautions, adequate lighting during the day PULMONARY: Supplemental 02 as needed. Maintain aspiration precautions at all times. Because of the concern of PCP pneumonia and HIV test was ordered and is pending confirmation. I am going to request a CD4 count in the meantime. Respiratory culture resulted positive for MRSA and Betty albicans. I am going to consult Infectious Disease specialist to guide antibiotic therapy. CARDIOVASCULAR: Follow hemodynamics. Vital signs per facility protocol. GI & NUTRITION: Continue with nutritional support. Continue stool softeners and laxatives as needed. KIDNEYS & ELECTROLYTES: Strict monitoring of intake, output and overall fluid balance. Avoid nephrotoxic medications to the extent possible. Medications to be dosed according to renal function. Monitor electrolytes and replace as needed ENDOCRINE: Maintain blood glucose between 100-180 at all times. Hypoglycemia protocol in place INFECTIOUS DISEASE: Trend temperature, WBC and procalcitonin level Follow cultures, deescalate antibiotics as soon as possible. Panculture if new onset fever Current antibiotic course Cefepime, doxycycline, Fluconazole, we will add Bactrim. We will follow the indication of the Infectious Disease specialist. ONCOLOGY/HEMATOLOGY/COAGULATION: Monitor for s/s of bleeding Monitor hemoglobin, coagulation studies as needed SKIN: Pressure ulcer prevention per facility protocol Specialty mattress ORTHO/REHAB: Continue PT/OT Prophylaxis: Continue GI and DVT prophylaxis Code Status: Full Resuscitation Disposition: TBD Other: Critical care time I personally spent 35 minutes of critical care time in treatment of this patient. This includes patient management, time at bedside, time reviewing tests, labs, appropriate images and studies, documentation, and patient care coordination. ATTESTATION BY PHYSICIAN Documentation assistance provided by a scribe, information recorded by the scribe was done at my direction and has been reviewed and validated by me." LITA BROWN MD I personally scribed for LITA BACON MD ([email or web address]) on 07/04/24 at 16:52. Electronically submitted by Eliana Valdez ([id number]). LITA BACON MD Jul 04, 2024 16:52
--- NOTE | 2024-07-04 16:56 | DS ---
NOTE Date/Time of : 07/04/2024 12:38 Code Status: DNR Events prior to patient's : SEVERE BILATERAL PNEUMONIA Events related to : CARDIORESPIRATORY ARREST Cause: CARDIORESPIRATORY ARREST SECONDARY TO MULTIORGAN FAILURE WITH ACUTE HYPOXEMIC RESPIRATORY FAILURE SECONDARY TO SEVERE BILATERAL PNEUMONIA Manner/Autopsy: N/A Provider Pronouncing : DR. LITA ALBRIGHT Attending Physician: LITA ALBRIGHT ATTESTATION BY PHYSICIAN Documentation assistance provided by a scribe, information recorded by the scribe was done at my direction and has been reviewed and validated by me." LITA ALBRIGHT MD I personally scribed for LITA ALBRIGHT MD ([email or web address]) on 07/04/24 at 16:56. Electronically submitted by Eliana Valdez ([email or web address]). LITA ALBRIGHT MD Jul 04, 2024 16:56
--- NOTE | 2024-07-04 20:30 | PN ---
NEPHROLOGY NOTE SUBJECTIVE: This patient is seen several times today in the morning. This patient has severe pneumonia, severe hypotension. The patient has tension pneumothorax, nasal decompression, hypoxic respiratory failure and hypercapnia, intubation, acute renal failure, hyperkalemia, herpes simplex infection, HIV, obesity, and history of smoking. The patient has continued to do poorly. The patient has developed tension pneumothorax, multiorgan failure. Prognosis is poor. Not a candidate for any form of dialysis. REVIEW OF SYSTEMS: Not possible. PHYSICAL EXAMINATION: GENERAL: Has been critically ill in the morning. VITAL SIGNS: Blood pressure has been only 62/43, pulse 72, respiratory rate is 20. HEENT: Head is atraumatic. Pupils are round and reactive. Sclerae are anicteric. Conjunctivae are not pale. Oral mucosa is not dry. NECK: Without masses or bruits. Thyroid is palpable. Neck has no bruits. CHEST: Shows diminished at both bases, prolonged expiration, percussion note being resonant in all areas. CARDIAC: A regular rhythm. No rub, no S3 or S4. No parasternal heave. ABDOMEN: No guarding or tenderness. NEUROLOGIC: Unresponsive, hypotensive. BACK: No tenderness or back deformities. NEUROLOGIC: Sedated, intubated and mechanically ventilated. LABORATORY DATA: Labs have shown hemoglobin is low up to 7.3, platelet count is 59,000. Creatinine is elevated up to 3.0, BUN of 119, potassium is elevated up to 5.9. Phosphorus level is elevated at 12. IMAGING STUDIES: X-rays have shown left pneumothorax and old records reviewed. X-rays personally reviewed. PROBLEMS: This patient has renal failure and hyperkalemia, hypotension, pneumonia, septic shock, human immunodeficiency virus. The patient has respiratory failure, mechanical ventilation and multiple other comorbidities. The patient's condition is poor. PLAN: * The patient is not a candidate for dialysis. * The patient is in the active process of dying. Not likely to survive. Severe hypotension despite pressors. Mechanical ventilation with tension pneumothorax. The patient has been continued on mechanical ventilation, previous chest tube drainage. The patient has pressors given, diuretics given. Potassium has been high secondary to renal failure and previous Bactrim use. Overall, prognosis is poor. Not likely to survive and DNR is appropriate. Not a candidate for dialysis. We have discussed with other team members. We have discussed with the family. We have reviewed the labs, x-rays personally. Old and external records have been reviewed and as detailed, condition is critical in ICU. Thank you for this patient. TID: [id number] RECEIPT: [id number] MTDD
== END 2024-07-04 12:38 | DRG 974 ==
LOC: EDH 16:44 → EDHIP 16:45 → 2CV 05-24 07:55 → 2AH 05-26 10:02 → 2BH 05-30 13:33
PROVIDERS: ADMIT Internal Medicine; ATTEND Internal Medicine
PROC: 5A09357 Assistance with Respiratory Ventilation, Less than 24 Consecutive Hours, Continuous Positive Airway Pressure (ICD-10-PCS; principal; 2024-05-23)
PROC: 5A09357 Assistance with Respiratory Ventilation, Less than 24 Consecutive Hours, Continuous Positive Airway Pressure (ICD-10-PCS; 2024-05-24)
PROC: 5A09357 Assistance with Respiratory Ventilation, Less than 24 Consecutive Hours, Continuous Positive Airway Pressure (ICD-10-PCS; 2024-05-25)
PROC: 5A09357 Assistance with Respiratory Ventilation, Less than 24 Consecutive Hours, Continuous Positive Airway Pressure (ICD-10-PCS; 2024-05-26)
PROC: 5A09357 Assistance with Respiratory Ventilation, Less than 24 Consecutive Hours, Continuous Positive Airway Pressure (ICD-10-PCS; 2024-05-27)
PROC: 5A09357 Assistance with Respiratory Ventilation, Less than 24 Consecutive Hours, Continuous Positive Airway Pressure (ICD-10-PCS; 2024-05-28)
PROC: 5A09357 Assistance with Respiratory Ventilation, Less than 24 Consecutive Hours, Continuous Positive Airway Pressure (ICD-10-PCS; 2024-05-29)
PROC: 5A09357 Assistance with Respiratory Ventilation, Less than 24 Consecutive Hours, Continuous Positive Airway Pressure (ICD-10-PCS; 2024-05-30)
PROC: 5A09357 Assistance with Respiratory Ventilation, Less than 24 Consecutive Hours, Continuous Positive Airway Pressure (ICD-10-PCS; 2024-05-31)
PROC: 5A09357 Assistance with Respiratory Ventilation, Less than 24 Consecutive Hours, Continuous Positive Airway Pressure (ICD-10-PCS; 2024-06-01)
PROC: 5A09357 Assistance with Respiratory Ventilation, Less than 24 Consecutive Hours, Continuous Positive Airway Pressure (ICD-10-PCS; 2024-06-02)
PROC: 5A09357 Assistance with Respiratory Ventilation, Less than 24 Consecutive Hours, Continuous Positive Airway Pressure (ICD-10-PCS; 2024-06-03)
PROC: 5A09357 Assistance with Respiratory Ventilation, Less than 24 Consecutive Hours, Continuous Positive Airway Pressure (ICD-10-PCS; 2024-06-04)
PROC: 5A09357 Assistance with Respiratory Ventilation, Less than 24 Consecutive Hours, Continuous Positive Airway Pressure (ICD-10-PCS; 2024-06-05)
PROC: 5A09357 Assistance with Respiratory Ventilation, Less than 24 Consecutive Hours, Continuous Positive Airway Pressure (ICD-10-PCS; 2024-06-06)
PROC: 5A09357 Assistance with Respiratory Ventilation, Less than 24 Consecutive Hours, Continuous Positive Airway Pressure (ICD-10-PCS; 2024-06-07)
PROC: 5A09357 Assistance with Respiratory Ventilation, Less than 24 Consecutive Hours, Continuous Positive Airway Pressure (ICD-10-PCS; 2024-06-08)
PROC: 5A09357 Assistance with Respiratory Ventilation, Less than 24 Consecutive Hours, Continuous Positive Airway Pressure (ICD-10-PCS; 2024-06-09)
PROC: 5A09357 Assistance with Respiratory Ventilation, Less than 24 Consecutive Hours, Continuous Positive Airway Pressure (ICD-10-PCS; 2024-06-10)
PROC: 03HB33Z Insertion of Infusion Device into Right Radial Artery, Percutaneous Approach (ICD-10-PCS; 2024-06-11)
PROC: 0BH17EZ Insertion of Endotracheal Airway into Trachea, Via Natural or Artificial Opening (ICD-10-PCS; 2024-06-11)
PROC: 5A1955Z Respiratory Ventilation, Greater than 96 Consecutive Hours (ICD-10-PCS; 2024-06-11)
PROC: 05HM33Z Insertion of Infusion Device into Right Internal Jugular Vein, Percutaneous Approach (ICD-10-PCS; 2024-06-11)
PROC: B543ZZA Ultrasonography of Right Jugular Veins, Guidance (ICD-10-PCS; 2024-06-11)
PROC: 5A09357 Assistance with Respiratory Ventilation, Less than 24 Consecutive Hours, Continuous Positive Airway Pressure (ICD-10-PCS; 2024-06-11)
PROC: 02HV33Z Insertion of Infusion Device into Superior Vena Cava, Percutaneous Approach (ICD-10-PCS; 2024-06-21)
DX: A41.9 Sepsis, unspecified organism (principal); E43 Unspecified severe protein-calorie malnutrition; B20 Human immunodeficiency virus [HIV] disease; J96.01 Acute respiratory failure with hypoxia; R65.21 Severe sepsis with septic shock; J93.0 Spontaneous tension pneumothorax; J11.08 Influenza due to unidentified influenza virus with specified pneumonia; N30.00 Acute cystitis without hematuria; L98.418 Non-pressure chronic ulcer of buttock with other specified severity; N17.9 Acute kidney failure, unspecified; L02.31 Cutaneous abscess of buttock; Z68.41 Body mass index [BMI] 40.0-44.9, adult; B59 Pneumocystosis; I46.9 Cardiac arrest, cause unspecified; J15.212 Pneumonia due to Methicillin resistant Staphylococcus aureus; Z66 Do not resuscitate; B25.9 Cytomegaloviral disease, unspecified; B37.0 Candidal stomatitis; R65.20 Severe sepsis without septic shock; D64.9 Anemia, unspecified; E11.65 Type 2 diabetes mellitus with hyperglycemia; E66.01 Morbid (severe) obesity due to excess calories; K76.0 Fatty (change of) liver, not elsewhere classified; E88.09 Other disorders of plasma-protein metabolism, not elsewhere classified; L89.152 Pressure ulcer of sacral region, stage 2; J98.2 Interstitial emphysema; B00.7 Disseminated herpesviral disease; E87.5 Hyperkalemia; E11.649 Type 2 diabetes mellitus with hypoglycemia without coma; B00.9 Herpesviral infection, unspecified; T38.0X5A Adverse effect of glucocorticoids and synthetic analogues, initial encounter; F41.9 Anxiety disorder, unspecified; T36.8X5A Adverse effect of other systemic antibiotics, initial encounter; E87.70 Fluid overload, unspecified; Z86.16 Personal history of COVID-19; Z87.891 Personal history of nicotine dependence; Z51.5 Encounter for palliative care; Z90.49 Acquired absence of other specified parts of digestive tract; Z83.3 Family history of diabetes mellitus; Z82.49 Family history of ischemic heart disease and other diseases of the circulatory system
CPT/HCPCS: 31500; 36415; 36556; 36600; 71045; 71270; 76705; 80048; 80051; 80053; 80061; 80074; 80076; 81001; 82306; 82435; 82533; 82550; 82570; 82607; 82803; 82947; 82948; 83036; 83605; 83615; 83735; 83880; 83930; 83935; 84100; 84132; 84295; 84300; 84439; 84443; 84484; 84540; 84550; 85018; 85025; 85027; 85378; 85384; 85610; 85730; 86359; 86361; 86592; 86701; 86706; 86777; 86778; 86803; 86812; 87040; 87071; 87086; 87186; 87205; 87281; 87283; 87389; 87390; 87426; 87449; 87491; 87496; 87529; 87536; 87591; 87635; 87804; 87880; 87900; 93005; 93306; 93970; 94002; 94003; 94640; 94660; 94664; 94667; 94668; 96365; 96368; 99291; A4357; C1751; C1894; G0378; J0360; J0456; J0612; J0692; J0696; J1200; J1450; J1650; J1720; J1815; J1940; J2185; J2250; J2270; J2371; J2470; J2919; J3010; J3411; J3475; J3480; J3490; J7040; J7050; J7060; J7070; P9047; Q9967; A4600; J1570